=== PATIENT | male | born 1960 | race Caucasian/White ===

== ENCOUNTER → 2016-05-22 | Outpatient (REF) | payer MEDICAID ==
[~2016-05-22] MED LIST: ATEN25TA PO; ATOR1TAB21 PO; DOXA1TAB41 PO
[2016-05-22 14:35] LABS: ANION GAP 8 MEQ/L (8-16); BLOOD UREA NITROGEN 24 MG/DL (7-18); CALCIUM LEVEL 9.4 MG/DL (8.5-10.1); CARBON DIOXIDE LEVEL 27 MEQ/L (21-32); CHLORIDE LEVEL 111 MEQ/L (98-107); CREATININE FOR GFR 0.89 MG/DL (0.70-1.30); GLOMERULAR FILTRATION RATE > 60.0 (>56); GLUCOSE, FASTING 99 MG/DL (70-105); POTASSIUM SERUM 4.2 MEQ/L (3.5-5.1); SODIUM LEVEL 146 MEQ/L (136-145)
== END | disposition home or self-care (01) ==
LOC: M SFHCPLAZ 11:23
PROVIDERS: ATTEND Family Medicine
DX: R33.9 Retention of urine, unspecified (principal); N30.01 Acute cystitis with hematuria

== ENCOUNTER 2016-05-29 09:06 | Outpatient (CLI) | payer MEDICAID, OTHER ==
[~2016-05-29] VITALS: Ht 172.7 cm; Wt 93.2 kg
[~2016-05-29 09:06] MED LIST changes: -ASCO25TA PO; -FLOM5CAP PO; -LEUP375KIT IM; -MULT1TAB11 PO; -NEUR300C PO; -OXYC-517 PO; -ZOFR4TAB3 PO
[2016-05-29] MEDS ORDERED: ZOLEDRONIC ACID 4 MG in NS 100 ML IV ONE (10:30)
[2016-05-30] MEDS ORDERED: OXYC-517 PO (15:14)
[2016-05-30] MEDS ORDERED: NEUR300C PO (15:14)
[2016-05-30] MEDS ORDERED: ZOFR4TAB3 PO (15:15)
[2016-05-30] MEDS ORDERED: ASCO25TA PO (15:15)
[2016-05-30] MEDS ORDERED: FLOM5CAP PO (15:15)
[2016-05-30] MEDS ORDERED: LEUP375KIT IM (15:16)
[2016-05-30] MEDS ORDERED: MULT1TAB11 PO (15:16)
== END 2016-05-29 11:15 | disposition home or self-care (01) ==
LOC: M INFU 09:06
PROVIDERS: ATTEND Family Medicine
DX: C79.51 Secondary malignant neoplasm of bone (principal)
CPT/HCPCS: 96365; J3489

== ENCOUNTER → 2016-05-29 | Outpatient (REF) | payer OTHER, MEDICAID ==
[~2016-05-29] MED LIST changes: +ASCO25TA PO; +FLOM5CAP PO; +LEUP375KIT IM; +MULT1TAB11 PO; +NEUR300C PO; +OXYC-517 PO; +ZOFR4TAB3 PO
== END | disposition home or self-care (01) ==
LOC: M SFHCPLAZ 11:34
PROVIDERS: ATTEND Family Medicine
DX: R31.9 Hematuria, unspecified (principal)

== ENCOUNTER 2016-06-13 12:25 | Emergency (ER) | payer MEDICAID, OTHER, SELFPAY ==
[~2016-06-13 12:25] MED LIST changes: +ASCO25TA PO; +FLOM5CAP PO; +LEUP375KIT IM; +MULT1TAB11 PO; +NEUR300C PO; +OXYC-517 PO; +ZOFR4TAB3 PO
[2016-06-13 13:46] LABS: MICROSCOPIC INDICATED? MAN YES (NO)
[2016-06-13 13:47] LABS: BACTERIA, URINE SMALL AMOUNT; HYALINE CAST, URINE NONE SEEN /lpf (0-1); MICROSCOPIC EXAM PERFORMED; RBC, URINE TNTC /hpf (0-3); SQUAMOUS EPITHELIAL CELL URINE NONE SEEN /hpf (SMALL AMT)
[2016-06-13 13:56] LABS: ANION GAP 10 MEQ/L (8-16); BLOOD UREA NITROGEN 19 MG/DL (7-18); CARBON DIOXIDE LEVEL 22 MEQ/L (21-32); CHLORIDE LEVEL 105 MEQ/L (98-107); CREATININE FOR GFR 1.04 MG/DL (0.70-1.30); GLOMERULAR FILTRATION RATE > 60.0 (>56); GLUCOSE, FASTING 143 MG/DL (70-105); POTASSIUM SERUM 3.8 MEQ/L (3.5-5.1); SODIUM LEVEL 137 MEQ/L (136-145)
--- NOTE | 2016-06-13 15:43 | EDDOCDS ---
Physician Documentation [facility] Name: Louis Mccann Age: 55 yrs Sex: Male : 1960 Arrival Date: 06/13/2016 Time: 12:25 Bed 7 Private MD: Javier Devi M.D. Disposition: 06/13/16 15:14 Discharged to Home/Self Care. Impression: Hematuria. - Condition is Stable. - Discharge Instructions: Hematuria, Adult. - Medication Reconciliation, Local Pharmacy Hours form. - Follow up: Javier eDvi; When: Call to arrange an appointment; Reason: Continuance of care. - Problem is new. - Symptoms have improved. Historical: - Allergies: no known allergies; - Home Meds: 1. atenolol 25 mg Oral tab 1 tab once daily 2. atorvastatin 20 mg oral tab 1 tab once daily 3. aspirin 81 mg Oral tab 1 tab once daily 4. prednisone 5 mg Oral tab once daily 5. tamsulosin 0.4 mg oral cp24 1 cap once daily 6. Soma 350 mg Oral tab 1 tab 3 times per day 7. oxycodone 5 mg Oral cap prn 8. multivitamin Oral cap 1 tablet daily 9. Vitamin C 500 mg Oral tab daily - PMHx: enlarged prostate; Hypercholesterolemia; Hypertension; prostate cancer; bone cancer ( secondary); - PSHx: reconstructive surery on left hand /wrist; port placement; Tonsillectomy; - Social history: Smoking status: Patient states former smoker of tobacco. No barriers to communication noted, The patient speaks fluent Comoran, Speaks appropriately for age. - Family history: Not pertinent. - : The pt / caregiver states he / she is not on anticoagulants. Home medication list is obtained from the patient. - Exposure Risk Screening:: None identified. Vital Signs: 06/13 12:27 BP 101 / 65; Pulse 102; Resp 18; Temp 98.6(O); Pulse Ox 98% on R/A; Weight 94.35 kg / ct3 208.01 lbs (R); Height 5 ft. 8 in. (172.72 cm) (R); Pain 4/10; 15:40 BP 105 / 57; Pulse 70; Resp 16; Temp 98; Pulse Ox 95% on R/A; Pain 0/10; bcj 12:27 Body Mass Index 31.63 (94.35 kg, 172.72 cm) ct3 MDM: 13:12 IV Saline Lock ordered. fg 13:12 Basic Metabolic Profile Ordered. EDMS 13:12 Urine Culture Ordered. EDMS 13:47 URINALYSIS MANUAL Ordered. EDMS 15:09 [facility] Payment Agreement was scanned into [employer] and attached to record. jp5 15:09 Financial registration complete. jp5 Signatures: Dispatcher [employer] EDMS Ferny Piper, RN Joselyn Edmond RN Neaem Roman jp5 Josseline Smith MD MD fg The chart was reviewed and I authenticate all verbal orders and agree with the evaluation and treatment provided.Corrections: (The following items were deleted from the chart) 13:47 13:12 URINALYSIS+LAB ordered. EDMS EDMS 15:06 15:01 Manzano ordered. fg dsf Attachments: 15:09 [facility] Payment Agreement jp5 SHAWND
--- NOTE | 2016-06-13 15:43 | EDDOCDS ---
Nurse's Notes [facility] Name: Louis Mccann Age: 55 yrs Sex: Male : 1960 Arrival Date: 06/13/2016 Time: 12:25 Bed 7 Private MD: Javier Devi M.D. Diagnosis: Hematuria Presentation: 06/13 12:30 Presenting complaint: Patient states: pissed pure blood this am. passing blood clots srm when urinating. hx of prostates cancer with mets to bone. Presenting complaint: Patient states: last chemo treatment 2 weeks ago. Adult Sepsis Screening: The patient does not have new or worsening altered mentation. Patient's respiratory rate is less than 22. Systolic blood pressure is greater than 100. Patient has a qSOFA score of 0- Negative Sepsis Screen. Suicide/Homicide risk assessment- the patient denies having any suicidal and/or homicidal ideations and does not present with any other emotional, behavioral or mental health complaints. Status: Patient is not a counseling services director or dependent. Transition of care: patient was not received from another setting of care. 12:30 Acuity: MARKUS Level 3 [facility] 12:30 Method Of Arrival: Walkin/Carried/Asstd srm Triage Assessment: 12:36 General: Appears in no apparent distress, Behavior is appropriate for age, cooperative. srm Pain: Location: back pain Pain currently is 4.5 out of 10 on a pain scale. HIV screening NA for this visit Offered previously. Historical: - Allergies: no known allergies; - Home Meds: 1. atenolol 25 mg Oral tab 1 tab once daily 2. atorvastatin 20 mg oral tab 1 tab once daily 3. aspirin 81 mg Oral tab 1 tab once daily 4. prednisone 5 mg Oral tab once daily 5. tamsulosin 0.4 mg oral cp24 1 cap once daily 6. Soma 350 mg Oral tab 1 tab 3 times per day 7. oxycodone 5 mg Oral cap prn 8. multivitamin Oral cap 1 tablet daily 9. Vitamin C 500 mg Oral tab daily - PMHx: enlarged prostate; Hypercholesterolemia; Hypertension; prostate cancer; bone cancer ( secondary); - PSHx: reconstructive surery on left hand /wrist; port placement; Tonsillectomy; - Social history: Smoking status: Patient states former smoker of tobacco. No barriers to communication noted, The patient speaks fluent Persian, Speaks appropriately for age. - Family history: Not pertinent. - : The pt / caregiver states he / she is not on anticoagulants. Home medication list is obtained from the patient. - Exposure Risk Screening:: None identified. Screenin:28 Screening information is obtained from the patient. Fall risk: No risks identified. dsf Assistance ADL's: requires no assistance with activities of daily living. Abuse/DV Screen: The patient / caregiver reports he/she is: not in a situation that causes fear, pain or injury. Nutritional screening: No deficits noted. home support is adequate. 15:40 Advance Directives: Currently, there is no health care proxy. bcj Assessment: 13:27 Adult Sepsis Screening: The patient does not have new or worsening altered mentation. dsf Patient's respiratory rate is less than 22. Systolic blood pressure is greater than 100. Patient has a qSOFA score of 0- Negative Sepsis Screen. General: Appears in no apparent distress, Behavior is appropriate for age, cooperative. Pain: Location: neck Pain currently is 4 out of 10 on a pain scale. Neurological: Level of Consciousness is awake, alert, Oriented to person, place, time. Cardiovascular: Capillary refill < 3 seconds Heart tones S1 S2 present. Respiratory: Airway is patent Respiratory effort is even, unlabored, Respiratory pattern is regular, symmetrical, Breath sounds are clear bilaterally. GI: Abdomen is non- distended Bowel sounds present X 4 quads. Abd is soft and non tender X 4 quads. : Urine is nedra blood. Derm: Skin is pink, warm & dry. 14:27 General: Appears in no apparent distress, comfortable, Behavior is appropriate for age, dsf cooperative. Neurological: Level of Consciousness is awake, alert, Oriented to person, place, time. Cardiovascular: Capillary refill < 3 seconds. Respiratory: Airway is patent Respiratory effort is even, unlabored, Respiratory pattern is regular, symmetrical. Derm: Skin is pink, warm & dry. 15:06 General: Dr. Smith talking to patient. pt refusing [place] catheter at this time . dsf 15:40 General: Appears in no apparent distress, comfortable, Behavior is cooperative. Derm: bcj Skin is pink, warm & dry. Vital Signs: 12:27 BP 101 / 65; Pulse 102; Resp 18; Temp 98.6(O); Pulse Ox 98% on R/A; Weight 94.35 kg ct3 (R); Height 5 ft. 8 in. (172.72 cm) (R); Pain 4/10; 15:40 BP 105 / 57; Pulse 70; Resp 16; Temp 98; Pulse Ox 95% on R/A; Pain 0/10; bcj 12:27 Body Mass Index 31.63 (94.35 kg, 172.72 cm) ct3 Vitals: 12:27 Log In Time: June 13, 2016 at 12:25. RN notified that patient meets Red Flag ct3 criteria. ED Course: 12:27 Patient visited by Ana Hale PCA. ct3 12:27 Javier Devi is Private Physician. ct3 12:27 Patient moved to Waiting ct3 12:29 Patient moved to Pre RCE ct3 12:32 Triage Initiated srm 12:38 Patient moved to 7 srm 13:11 Josseline Smith MD is Attending Physician. fg 13:12 Patient visited by Josseline Smith MD. fg 13:26 Basic Metabolic Profile Sent. dsf 13:26 Urine Culture Sent. dsf 13:28 Patient visited by Claudette Leigh RN. dsf 13:28 Inserted saline lock: 20 gauge in right antecubital area The patient tolerated the dsf procedure well. 14:31 Patient visited by Claudette Leigh RN. dsf 15:09 [facility] Payment Agreement was scanned into [email or web address] and attached to record. jp5 15:14 Javier Devi is Referral Physician. fg 15:40 No apparent distress. Resting quietly. Awaiting disposition. bcj 15:40 The patient / caregiver is instructed regarding the plan of care and ED course. bcj 15:40 Discontinued lock intact. No procedures done that require assistance. bcj 15:42 Patient visited by Ferny Piper RN. bcj Order Results: Lab Order: Basic Metabolic Profile; SPEC'M 06/13/16 13:24 Test: GLUCOSE, FASTING; Value: 143; Range: 70-105; Abnormal: Above high normal; Units: MG/DL; Status: F Test: BLOOD UREA NITROGEN; Value: 19; Range: 7-18; Abnormal: Above high normal; Units: MG/DL; Status: F Test: CREATININE FOR GFR; Value: 1.04; Range: 0.70-1.30; Units: MG/DL; Status: F Test: GLOMERULAR FILTRATION RATE; Value: > 60.0; Range: >56; Status: F Test: SODIUM LEVEL; Value: 137; Range: 136-145; Units: MEQ/L; Status: F Test: POTASSIUM SERUM; Value: 3.8; Range: 3.5-5.1; Units: MEQ/L; Status: F Test: CHLORIDE LEVEL; Value: 105; Range: 98-107; Units: MEQ/L; Status: F Test: CARBON DIOXIDE LEVEL; Value: 22; Range: 21-32; Units: MEQ/L; Status: F Test: ANION GAP; Value: 10; Range: 8-16; Units: MEQ/L; Status: F Test: CALCIUM LEVEL; Value: 8.0; Range: 8.5-10.1; Abnormal: Below low normal; Units: MG/DL; Status: F Test Note: ; Units are mL/min/1.73 m2 Chronic Kidney Disease Staging per NKF: Stage I & II GFR >=60 Normal to Mildly Decreased Stage III GFR 30-59 Moderately Decreased Stage IV GFR 15-29 Severely Decreased Stage V GFR <15 Very Little GFR Left ESRD GFR <15 on ADHESIVE SPRAYER Lab Order: URINALYSIS MANUAL; SPEC'M 06/13/16 13:24 Test: APPEARANCE, URINE MANUAL; Value: TURBID; Range: CLEAR; Abnormal: Above high normal; Status: F Test: COLOR, URINE MANUAL; Value: RED; Range: YELLOW; Abnormal: Above high normal; Status: F Test: PH,URINE MAN; Value: 6.0; Range: 5.0 - 9.0; Units: UNITS; Status: F Test: SPECIFIC GRAVITY,URINE MANUAL; Value: 1.015; Range: 1.002-1.035; Status: F Test: PROTEIN, URINE MANUAL; Value: 3+; Range: NEGATIVE; Abnormal: Above high normal; Units: mg/dL; Status: F Test: GLUCOSE, URINE (UA) MANUAL; Value: NEGATIVE; Range: NEGATIVE; Units: mg/dL; Status: F Test: KETONE, URINE MANUAL; Value: NEGATIVE; Range: NEGATIVE; Units: mg/dL; Status: F Test: UROBILINOGEN, URINE MANUAL; Value: NORMAL; Range: NORMAL; Units: mg/dl; Status: F Test: BILIRUBIN, URINE MANUAL; Value: NEGATIVE; Range: NEGATIVE; Status: F Test: NITRITE, URINE MANUAL; Value: NEGATIVE; Range: NEGATIVE; Status: F Test: LEUKOCYTE ESTERASE, URINE MAN; Value: TRACE; Range: NEGATIVE; Abnormal: Above high normal; Status: F Test: BLOOD URINE MANUAL; Value: POSITIVE; Range: NEGATIVE; Abnormal: Above high normal; Status: F Lab Order: MICROSCOPIC, URINE; SPEC'M 06/13/16 13:24 Test: WBC, URINE; Value: 10-15; Range: 0-3; Abnormal: Above high normal; Units: /hpf; Status: F Test: RBC, URINE; Value: TNTC; Range: 0-3; Abnormal: Above high normal; Units: /hpf; Status: F Test: SQUAMOUS EPITHELIAL CELL URINE; Value: NONE SEEN; Range: SMALL AMT; Units: /hpf; Status: F Test: BACTERIA, URINE; Value: SMALL AMOUNT; Range: NONE; Abnormal: Above high normal; Status: F Test: HYALINE CAST, URINE; Value: NONE SEEN; Range: 0-1; Units: /lpf; Status: F Test: MICROSCOPIC EXAM; Value: PERFORMED; Status: F Outcome: 15:14 Discharge ordered by Provider. fg 15:40 Discharge Assessment: patient administered narcotics - no. The following High Risk [facility] Discharge criteria are identified: None. Discharged to home ambulatory, with family. Condition: stable. Discharge instructions given to patient, Instructed on discharge instructions, follow up and referral plans. diet. No special radiology studies were completed. Property :Personal belongings accompany Pt. 15:42 Patient left the ED. [facility] Signatures: Ferny Piper RN RN bcj Michelson, Staci, RN RN [facility] Ana Hale, ZULLY HAND CLERICAL VERIFIER ct3 Claudette Leigh RN RN [facility] Naeem Boone jp5 Josseline Smith MD MD fg Corrections: (The following items were deleted from the chart) 13:47 13:26 URINALYSIS+LAB sent. [facility] EDMS MTDD
--- NOTE | 2016-06-15 16:44 | EDDOCDS ---
Physician Documentation [facility] Name: Louis Mccann Age: 55 yrs Sex: Male : 1960 Arrival Date: 06/13/2016 Time: 12:25 Bed 7 Private MD: Javier Devi M.D. Disposition: 06/13/16 15:14 Discharged to Home/Self Care. Impression: Hematuria. - Condition is Stable. - Discharge Instructions: Hematuria, Adult. - Medication Reconciliation, Local Pharmacy Hours form. - Follow up: Javier Devi; When: Call to arrange an appointment; Reason: Continuance of care. - Problem is new. - Symptoms have improved. Historical: - Allergies: no known allergies; - Home Meds: 1. atenolol 25 mg Oral tab 1 tab once daily 2. atorvastatin 20 mg oral tab 1 tab once daily 3. aspirin 81 mg Oral tab 1 tab once daily 4. prednisone 5 mg Oral tab once daily 5. tamsulosin 0.4 mg oral cp24 1 cap once daily 6. Soma 350 mg Oral tab 1 tab 3 times per day 7. oxycodone 5 mg Oral cap prn 8. multivitamin Oral cap 1 tablet daily 9. Vitamin C 500 mg Oral tab daily - PMHx: enlarged prostate; Hypercholesterolemia; Hypertension; prostate cancer; bone cancer ( secondary); - PSHx: reconstructive surery on left hand /wrist; port placement; Tonsillectomy; - Social history: Smoking status: Patient states former smoker of tobacco. No barriers to communication noted, The patient speaks fluent Faroese, Speaks appropriately for age. - Family history: Not pertinent. - : The pt / caregiver states he / she is not on anticoagulants. Home medication list is obtained from the patient. - Exposure Risk Screening:: None identified. Vital Signs: 06/13 12:27 BP 101 / 65; Pulse 102; Resp 18; Temp 98.6(O); Pulse Ox 98% on R/A; Weight 94.35 kg / ct3 208.01 lbs (R); Height 5 ft. 8 in. (172.72 cm) (R); Pain 4/10; 15:40 BP 105 / 57; Pulse 70; Resp 16; Temp 98; Pulse Ox 95% on R/A; Pain 0/10; bcj 12:27 Body Mass Index 31.63 (94.35 kg, 172.72 cm) ct3 MDM: 13:12 IV Saline Lock ordered. fg 13:12 Basic Metabolic Profile Ordered. EDMS 13:12 Urine Culture Ordered. EDMS 13:47 URINALYSIS MANUAL Ordered. EDMS 15:09 [facility] Payment Agreement was scanned into [employer] and attached to record. 09 11: Financial registration complete. [facility] 06/14 12:38 T-Sheet-- Draft Copy was scanned into [employer] and attached to record. klr Signatures: Dispatcher [employer] EDMS Ferny Piper, RN Joselyn Edmond RN RN srm Price, Jennalee 5 Josseline Smith MD MD fg Redder, Kathie klr The chart was reviewed and I authenticate all verbal orders and agree with the evaluation and treatment provided.Corrections: (The following items were deleted from the chart) 06/13 13:47 13:12 URINALYSIS+LAB ordered. EDMS EDMS 15:06 15:01 Manzano ordered. fg dsf Attachments: 15: [facility] [place] [facility] Payment Agreement [facility] 06/14 12:38 T-Sheet-- Draft Copy klr Chart Complete MTDD
--- NOTE | 2016-06-15 16:44 | EDDOCDS ---
Nurse's Notes [facility] Name: Louis Mccann Age: 55 yrs Sex: Male : 1960 Arrival Date: 06/13/2016 Time: 12:25 Bed 7 Private MD: Javier Devi M.D. Diagnosis: Hematuria Presentation: 06/13 12:30 Presenting complaint: Patient states: pissed pure blood this am. passing blood clots srm when urinating. hx of prostates cancer with mets to bone. Presenting complaint: Patient states: last chemo treatment 2 weeks ago. Adult Sepsis Screening: The patient does not have new or worsening altered mentation. Patient's respiratory rate is less than 22. Systolic blood pressure is greater than 100. Patient has a qSOFA score of 0- Negative Sepsis Screen. Suicide/Homicide risk assessment- the patient denies having any suicidal and/or homicidal ideations and does not present with any other emotional, behavioral or mental health complaints. 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 Transition of care: patient was not received from another setting of care. 12:30 Acuity: MARKUS Level 3 [facility] 12:30 Method Of Arrival: Walkin/Carried/Asstd srm Triage Assessment: 12:36 General: Appears in no apparent distress, Behavior is appropriate for age, cooperative. srm Pain: Location: back pain Pain currently is 4.5 out of 10 on a pain scale. HIV screening NA for this visit Offered previously. Historical: - Allergies: no known allergies; - Home Meds: 1. atenolol 25 mg Oral tab 1 tab once daily 2. atorvastatin 20 mg oral tab 1 tab once daily 3. aspirin 81 mg Oral tab 1 tab once daily 4. prednisone 5 mg Oral tab once daily 5. tamsulosin 0.4 mg oral cp24 1 cap once daily 6. Soma 350 mg Oral tab 1 tab 3 times per day 7. oxycodone 5 mg Oral cap prn 8. multivitamin Oral cap 1 tablet daily 9. Vitamin C 500 mg Oral tab daily - PMHx: enlarged prostate; Hypercholesterolemia; Hypertension; prostate cancer; bone cancer ( secondary); - PSHx: reconstructive surery on left hand /wrist; port placement; Tonsillectomy; - Social history: Smoking status: Patient states former smoker of tobacco. No barriers to communication noted, The patient speaks fluent Kinyarwanda, Speaks appropriately for age. - Family history: Not pertinent. - : The pt / caregiver states he / she is not on anticoagulants. Home medication list is obtained from the patient. - Exposure Risk Screening:: None identified. Screenin:28 Screening information is obtained from the patient. Fall risk: No risks identified. dsf Assistance ADL's: requires no assistance with activities of daily living. Abuse/DV Screen: The patient / caregiver reports he/she is: not in a situation that causes fear, pain or injury. Nutritional screening: No deficits noted. home support is adequate. 15:40 Advance Directives: Currently, there is no health care proxy. bcj Assessment: 13:27 Adult Sepsis Screening: The patient does not have new or worsening altered mentation. dsf Patient's respiratory rate is less than 22. Systolic blood pressure is greater than 100. Patient has a qSOFA score of 0- Negative Sepsis Screen. General: Appears in no apparent distress, Behavior is appropriate for age, cooperative. Pain: Location: neck Pain currently is 4 out of 10 on a pain scale. Neurological: Level of Consciousness is awake, alert, Oriented to person, place, time. Cardiovascular: Capillary refill < 3 seconds Heart tones S1 S2 present. Respiratory: Airway is patent Respiratory effort is even, unlabored, Respiratory pattern is regular, symmetrical, Breath sounds are clear bilaterally. GI: Abdomen is non- distended Bowel sounds present X 4 quads. Abd is soft and non tender X 4 quads. : Urine is nedra blood. Derm: Skin is pink, warm & dry. 14:27 General: Appears in no apparent distress, comfortable, Behavior is appropriate for age, dsf cooperative. Neurological: Level of Consciousness is awake, alert, Oriented to person, place, time. Cardiovascular: Capillary refill < 3 seconds. Respiratory: Airway is patent Respiratory effort is even, unlabored, Respiratory pattern is regular, symmetrical. Derm: Skin is pink, warm & dry. 15:06 General: Dr. Smith talking to patient. pt refusing montana catheter at this time . dsf 15:40 General: Appears in no apparent distress, comfortable, Behavior is cooperative. Derm: bcj Skin is pink, warm & dry. Vital Signs: 12:27 BP 101 / 65; Pulse 102; Resp 18; Temp 98.6(O); Pulse Ox 98% on R/A; Weight 94.35 kg ct3 (R); Height 5 ft. 8 in. (172.72 cm) (R); Pain 4/10; 15:40 BP 105 / 57; Pulse 70; Resp 16; Temp 98; Pulse Ox 95% on R/A; Pain 0/10; bcj 12:27 Body Mass Index 31.63 (94.35 kg, 172.72 cm) ct3 Vitals: 12:27 Log In Time: June 13, 2016 at 12:25. RN notified that patient meets Red Flag ct3 criteria. ED Course: 12:27 Patient visited by Ana Hale PCA. ct3 12:27 Javier Devi is Private Physician. ct3 12:27 Patient moved to Waiting ct3 12:29 Patient moved to Pre RCE ct3 12:32 Triage Initiated srm 12:38 Patient moved to 7 srm 13:11 Josseline Smith MD is Attending Physician. fg 13:12 Patient visited by Josseline Smith MD. fg 13:26 Basic Metabolic Profile Sent. dsf 13:26 Urine Culture Sent. dsf 13:28 Patient visited by Claudette Leigh RN. dsf 13:28 Inserted saline lock: 20 gauge in right antecubital area The patient tolerated the dsf procedure well. 14:31 Patient visited by Claudette Leigh RN. dsf 15:09 [facility] Payment Agreement was scanned into [employer] and attached to record. jp5 15:14 Javier Devi is Referral Physician. fg 15:40 No apparent distress. Resting quietly. Awaiting disposition. bcj 15:40 The patient / caregiver is instructed regarding the plan of care and ED course. bcj 15:40 Discontinued lock intact. No procedures done that require assistance. bcj 15:42 Patient visited by Ferny Piper RN. [facility] 06/14 12:38 T-Sheet-- Draft Copy was scanned into [employer] and attached to record. klr Order Results: Lab Order: Urine Culture; SPEC'M 06/13/16 13:24 Test: URINE CULTURE; Value: <EXTERNAL COMMENT eCWMed> FULL REPORT IN LAB NOTES (eCW and Medent).; Status: F Test: URINE CULTURE; Value: ORGANISM 1: STAPHYLOCOCCUS AUREUS; Status: F Test: URINE CULTURE; Value: STAPHYLOCOCCUS AUREUS; Status: F Test: URINE CULTURE; Value: COLONY COUNT CFU/ml >100,000; Status: F Test: URINE CULTURE; Value: GRAM POS SENSI - VITEK 67; Status: F Test: URINE CULTURE; Value: Method: VIT2; Status: F Test: URINE CULTURE; Value: TETRACYCLINE <=1 S; Status: F Test: URINE CULTURE; Value: PENICILLIN G 0.06 R; Status: F Test: URINE CULTURE; Value: TRIMETHOPRIM/SULFAMETHOXAZOLE <=10 S; Status: F Test: URINE CULTURE; Value: ERYTHROMYCIN <=0.25 S; Status: F Test: URINE CULTURE; Value: GENTAMICIN <=0.5 S; Status: F Test: URINE CULTURE; Value: CLINDAMYCIN <=0.25 S; Status: F Test: URINE CULTURE; Value: NITROFURANTOIN <=16 S; Status: F Test: URINE CULTURE; Value: OXACILLIN <=0.25 S; Status: F Test: URINE CULTURE; Value: VANCOMYCIN <=0.5 S; Status: F Test: URINE CULTURE; Value: LINEZOLID (ZYVOX) 2 S; Status: F Lab Order: Basic Metabolic Profile; SPEC'M 06/13/16 13:24 Test: GLUCOSE, FASTING; Value: 143; Range: 70-105; Abnormal: Above high normal; Units: MG/DL; Status: F Test: BLOOD UREA NITROGEN; Value: 19; Range: 7-18; Abnormal: Above high normal; Units: MG/DL; Status: F Test: CREATININE FOR GFR; Value: 1.04; Range: 0.70-1.30; Units: MG/DL; Status: F Test: GLOMERULAR FILTRATION RATE; Value: > 60.0; Range: >56; Status: F Test: SODIUM LEVEL; Value: 137; Range: 136-145; Units: MEQ/L; Status: F Test: POTASSIUM SERUM; Value: 3.8; Range: 3.5-5.1; Units: MEQ/L; Status: F Test: CHLORIDE LEVEL; Value: 105; Range: 98-107; Units: MEQ/L; Status: F Test: CARBON DIOXIDE LEVEL; Value: 22; Range: 21-32; Units: MEQ/L; Status: F Test: ANION GAP; Value: 10; Range: 8-16; Units: MEQ/L; Status: F Test: CALCIUM LEVEL; Value: 8.0; Range: 8.5-10.1; Abnormal: Below low normal; Units: MG/DL; Status: F Test Note: ; Units are mL/min/1.73 m2 Chronic Kidney Disease Staging per NKF: Stage I & II GFR >=60 Normal to Mildly Decreased Stage III GFR 30-59 Moderately Decreased Stage IV GFR 15-29 Severely Decreased Stage V GFR <15 Very Little GFR Left ESRD GFR <15 on EQUITY STRUCTURER Lab Order: URINALYSIS MANUAL; SPEC'M 06/13/16 13:24 Test: APPEARANCE, URINE MANUAL; Value: TURBID; Range: CLEAR; Abnormal: Above high normal; Status: F Test: COLOR, URINE MANUAL; Value: RED; Range: YELLOW; Abnormal: Above high normal; Status: F Test: PH,URINE MAN; Value: 6.0; Range: 5.0 - 9.0; Units: UNITS; Status: F Test: SPECIFIC GRAVITY,URINE MANUAL; Value: 1.015; Range: 1.002-1.035; Status: F Test: PROTEIN, URINE MANUAL; Value: 3+; Range: NEGATIVE; Abnormal: Above high normal; Units: mg/dL; Status: F Test: GLUCOSE, URINE (UA) MANUAL; Value: NEGATIVE; Range: NEGATIVE; Units: mg/dL; Status: F Test: KETONE, URINE MANUAL; Value: NEGATIVE; Range: NEGATIVE; Units: mg/dL; Status: F Test: UROBILINOGEN, URINE MANUAL; Value: NORMAL; Range: NORMAL; Units: mg/dl; Status: F Test: BILIRUBIN, URINE MANUAL; Value: NEGATIVE; Range: NEGATIVE; Status: F Test: NITRITE, URINE MANUAL; Value: NEGATIVE; Range: NEGATIVE; Status: F Test: LEUKOCYTE ESTERASE, URINE MAN; Value: TRACE; Range: NEGATIVE; Abnormal: Above high normal; Status: F Test: BLOOD URINE MANUAL; Value: POSITIVE; Range: NEGATIVE; Abnormal: Above high normal; Status: F Lab Order: MICROSCOPIC, URINE; SPEC'M 06/13/16 13:24 Test: WBC, URINE; Value: 10-15; Range: 0-3; Abnormal: Above high normal; Units: /hpf; Status: F Test: RBC, URINE; Value: TNTC; Range: 0-3; Abnormal: Above high normal; Units: /hpf; Status: F Test: SQUAMOUS EPITHELIAL CELL URINE; Value: NONE SEEN; Range: SMALL AMT; Units: /hpf; Status: F Test: BACTERIA, URINE; Value: SMALL AMOUNT; Range: NONE; Abnormal: Above high normal; Status: F Test: HYALINE CAST, URINE; Value: NONE SEEN; Range: 0-1; Units: /lpf; Status: F Test: MICROSCOPIC EXAM; Value: PERFORMED; Status: F Outcome: 06/13 15:14 Discharge ordered by Provider. 15:40 Discharge Assessment: patient administered narcotics - no. The following High Risk [facility] Discharge criteria are identified: None. Discharged to home ambulatory, with family. Condition: stable. Discharge instructions given to patient, Instructed on discharge instructions, follow up and referral plans. diet. No special radiology studies were completed. Property :Personal belongings accompany Pt. 15:42 Patient left the ED. [facility] Signatures: Ferny Piper RN RN Joselyn Matos RN RN srm Hale, Ana, COUNSELING SPECIALIST COUNSELING SPECIALIST ct3 Claudette Leigh RN RN [facility] Naeem Boone 5 Josseline Smith MD MD fg Redder, Kathie klr Corrections: (The following items were deleted from the chart) 13:47 13:26 URINALYSIS+LAB sent. [facility] EDMS Chart Complete MTDRosa Elena
--- NOTE | 2016-06-15 16:44 | EDDOCDS ---
Physician Documentation [facility] Name: Louis Mccann Age: 55 yrs Sex: Male : 1960 Arrival Date: 06/13/2016 Time: 12:25 Bed 7 Private MD: Javier Devi M.D. Disposition: 06/13/16 15:14 Discharged to Home/Self Care. Impression: Hematuria. - Condition is Stable. - Discharge Instructions: Hematuria, Adult. - Medication Reconciliation, Local Pharmacy Hours form. - Follow up: Javier Devi; When: Call to arrange an appointment; Reason: Continuance of care. - Problem is new. - Symptoms have improved. Historical: - Allergies: no known allergies; - Home Meds: 1. atenolol 25 mg Oral tab 1 tab once daily 2. atorvastatin 20 mg oral tab 1 tab once daily 3. aspirin 81 mg Oral tab 1 tab once daily 4. prednisone 5 mg Oral tab once daily 5. tamsulosin 0.4 mg oral cp24 1 cap once daily 6. Soma 350 mg Oral tab 1 tab 3 times per day 7. oxycodone 5 mg Oral cap prn 8. multivitamin Oral cap 1 tablet daily 9. Vitamin C 500 mg Oral tab daily - PMHx: enlarged prostate; Hypercholesterolemia; Hypertension; prostate cancer; bone cancer ( secondary); - PSHx: reconstructive surery on left hand /wrist; port placement; Tonsillectomy; - Social history: Smoking status: Patient states former smoker of tobacco. No barriers to communication noted, The patient speaks fluent Pakistani, Speaks appropriately for age. - Family history: Not pertinent. - : The pt / caregiver states he / she is not on anticoagulants. Home medication list is obtained from the patient. - Exposure Risk Screening:: None identified. Vital Signs: 06/13 12:27 BP 101 / 65; Pulse 102; Resp 18; Temp 98.6(O); Pulse Ox 98% on R/A; Weight 94.35 kg / ct3 208.01 lbs (R); Height 5 ft. 8 in. (172.72 cm) (R); Pain 4/10; 15:40 BP 105 / 57; Pulse 70; Resp 16; Temp 98; Pulse Ox 95% on R/A; Pain 0/10; bcj 12:27 Body Mass Index 31.63 (94.35 kg, 172.72 cm) ct3 MDM: 13:12 IV Saline Lock ordered. fg 13:12 Basic Metabolic Profile Ordered. EDMS 13:12 Urine Culture Ordered. EDMS 13:47 URINALYSIS MANUAL Ordered. EDMS 15:09 [facility] Payment Agreement was scanned into [employer] and attached to record. 09 11: Financial registration complete. [facility] 06/14 12:38 T-Sheet-- Draft Copy was scanned into [employer] and attached to record. klr Signatures: Dispatcher [employer] EDMS Ferny Piper, RN Joselyn Edmond RN RN srm Price, Jennalee 5 Josseline Smith MD MD fg Redder, Kathie klr The chart was reviewed and I authenticate all verbal orders and agree with the evaluation and treatment provided.Corrections: (The following items were deleted from the chart) 06/13 13:47 13:12 URINALYSIS+LAB ordered. EDMS EDMS 15:06 15:01 Manzano ordered. fg dsf Attachments: 15: [facility] Payment Agreement [facility] 06/14 12:38 T-Sheet-- Draft Copy klr Chart Complete MTDD
--- NOTE | 2016-06-16 17:26 | EDDOCDS ---
Physician Documentation [facility] Name: Louis Mccann Age: 55 yrs Sex: Male : 1960 Arrival Date: 06/13/2016 Time: 12:25 Bed 7 Private MD: Javier Devi M.D. Disposition: 06/13/16 15:14 Discharged to Home/Self Care. Impression: Hematuria. - Condition is Stable. - Discharge Instructions: Hematuria, Adult. - Medication Reconciliation, Local Pharmacy Hours form. - Follow up: Javier Devi; When: Call to arrange an appointment; Reason: Continuance of care. - Problem is new. - Symptoms have improved. Historical: - Allergies: no known allergies; - Home Meds: 1. atenolol 25 mg Oral tab 1 tab once daily 2. atorvastatin 20 mg oral tab 1 tab once daily 3. aspirin 81 mg Oral tab 1 tab once daily 4. prednisone 5 mg Oral tab once daily 5. tamsulosin 0.4 mg oral cp24 1 cap once daily 6. Soma 350 mg Oral tab 1 tab 3 times per day 7. oxycodone 5 mg Oral cap prn 8. multivitamin Oral cap 1 tablet daily 9. Vitamin C 500 mg Oral tab daily - PMHx: enlarged prostate; Hypercholesterolemia; Hypertension; prostate cancer; bone cancer ( secondary); - PSHx: reconstructive surery on left hand /wrist; port placement; Tonsillectomy; - Social history: Smoking status: Patient states former smoker of tobacco. No barriers to communication noted, The patient speaks fluent American, Speaks appropriately for age. - Family history: Not pertinent. - : The pt / caregiver states he / she is not on anticoagulants. Home medication list is obtained from the patient. - Exposure Risk Screening:: None identified. Vital Signs: 06/13 12:27 BP 101 / 65; Pulse 102; Resp 18; Temp 98.6(O); Pulse Ox 98% on R/A; Weight 94.35 kg / ct3 208.01 lbs (R); Height 5 ft. 8 in. (172.72 cm) (R); Pain 4/10; 15:40 BP 105 / 57; Pulse 70; Resp 16; Temp 98; Pulse Ox 95% on R/A; Pain 0/10; bcj 12:27 Body Mass Index 31.63 (94.35 kg, 172.72 cm) ct3 MDM: 13:12 IV Saline Lock ordered. fg 13:12 Basic Metabolic Profile Ordered. EDMS 13:12 Urine Culture Ordered. EDMS 13:47 URINALYSIS MANUAL Ordered. EDMS 15:09 [facility] Payment Agreement was scanned into [employer] and attached to record. 09 11: Financial registration complete. [facility] 06/14 12:38 T-Sheet-- Draft Copy was scanned into [employer] and attached to record. klr Signatures: Dispatcher [employer] EDMS Ferny Piper, RN Joselyn Edmond RN RN srm Price, Jennalee 5 Josseline Smith MD MD fg Redder, Kathie klr The chart was reviewed and I authenticate all verbal orders and agree with the evaluation and treatment provided.Corrections: (The following items were deleted from the chart) 06/13 13:47 13:12 URINALYSIS+LAB ordered. EDMS EDMS 15:06 15:01 Manzano ordered. fg dsf Attachments: 15: [facility] Payment Agreement [facility] 06/14 12:38 T-Sheet-- Draft Copy klr Chart Complete MTDD
--- NOTE | 2016-06-16 17:26 | EDDOCDS ---
Physician Documentation [facility] Name: Louis Mccann Age: 55 yrs Sex: Male : 1960 Arrival Date: 06/13/2016 Time: 12:25 Bed 7 Private MD: Javier eDvi M.D. Disposition: 06/13/16 15:14 Discharged to Home/Self Care. Impression: Hematuria. - Condition is Stable. - Discharge Instructions: Hematuria, Adult. - Medication Reconciliation, Local Pharmacy Hours form. - Follow up: Javier Devi; When: Call to arrange an appointment; Reason: Continuance of care. - Problem is new. - Symptoms have improved. Historical: - Allergies: no known allergies; - Home Meds: 1. atenolol 25 mg Oral tab 1 tab once daily 2. atorvastatin 20 mg oral tab 1 tab once daily 3. aspirin 81 mg Oral tab 1 tab once daily 4. prednisone 5 mg Oral tab once daily 5. tamsulosin 0.4 mg oral cp24 1 cap once daily 6. Soma 350 mg Oral tab 1 tab 3 times per day 7. oxycodone 5 mg Oral cap prn 8. multivitamin Oral cap 1 tablet daily 9. Vitamin C 500 mg Oral tab daily - PMHx: enlarged prostate; Hypercholesterolemia; Hypertension; prostate cancer; bone cancer ( secondary); - PSHx: reconstructive surery on left hand /wrist; port placement; Tonsillectomy; - Social history: Smoking status: Patient states former smoker of tobacco. No barriers to communication noted, The patient speaks fluent Thai, Speaks appropriately for age. - Family history: Not pertinent. - : The pt / caregiver states he / she is not on anticoagulants. Home medication list is obtained from the patient. - Exposure Risk Screening:: None identified. Vital Signs: 06/13 12:27 BP 101 / 65; Pulse 102; Resp 18; Temp 98.6(O); Pulse Ox 98% on R/A; Weight 94.35 kg / ct3 208.01 lbs (R); Height 5 ft. 8 in. (172.72 cm) (R); Pain 4/10; 15:40 BP 105 / 57; Pulse 70; Resp 16; Temp 98; Pulse Ox 95% on R/A; Pain 0/10; bcj 12:27 Body Mass Index 31.63 (94.35 kg, 172.72 cm) ct3 MDM: 13:12 IV Saline Lock ordered. fg 13:12 Basic Metabolic Profile Ordered. EDMS 13:12 Urine Culture Ordered. EDMS 13:47 URINALYSIS MANUAL Ordered. EDMS 15:09 [facility] Payment Agreement was scanned into [employer] and attached to record. 09 11: Financial registration complete. [facility] 06/14 12:38 T-Sheet-- Draft Copy was scanned into [employer] and attached to record. klr Signatures: Dispatcher [employer] EDMS Ferny Piper, RN Joselyn Edmond RN RN srm Price, Jennalee 5 Josseline Smith MD MD fg Redder, Kathie klr The chart was reviewed and I authenticate all verbal orders and agree with the evaluation and treatment provided.Corrections: (The following items were deleted from the chart) 06/13 13:47 13:12 URINALYSIS+LAB ordered. EDMS EDMS 15:06 15:01 Manzano ordered. fg dsf Attachments: 15: [facility] Payment Agreement [facility] 06/14 12:38 T-Sheet-- Draft Copy klr Chart Complete MTDD
--- NOTE | 2016-06-16 17:26 | EDDOCDS ---
Nurse's Notes [facility] Name: Louis Mccann Age: 55 yrs Sex: Male : 1960 Arrival Date: 06/13/2016 Time: 12:25 Bed 7 Private MD: Javier Devi M.D. Diagnosis: Hematuria Presentation: 06/13 12:30 Presenting complaint: Patient states: pissed pure blood this am. passing blood clots srm when urinating. hx of prostates cancer with mets to bone. Presenting complaint: Patient states: last chemo treatment 2 weeks ago. Adult Sepsis Screening: The patient does not have new or worsening altered mentation. Patient's respiratory rate is less than 22. Systolic blood pressure is greater than 100. Patient has a qSOFA score of 0- Negative Sepsis Screen. Suicide/Homicide risk assessment- the patient denies having any suicidal and/or homicidal ideations and does not present with any other emotional, behavioral or mental health complaints. 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 Transition of care: patient was not received from another setting of care. 12:30 Acuity: [facility] 12:30 Method Of Arrival: Walkin/Carried/Asstd srm Triage Assessment: 12:36 General: Appears in no apparent distress, Behavior is appropriate for age, cooperative. srm Pain: Location: back pain Pain currently is 4.5 out of 10 on a pain scale. HIV screening NA for this visit Offered previously. Historical: - Allergies: no known allergies; - Home Meds: 1. atenolol 25 mg Oral tab 1 tab once daily 2. atorvastatin 20 mg oral tab 1 tab once daily 3. aspirin 81 mg Oral tab 1 tab once daily 4. prednisone 5 mg Oral tab once daily 5. tamsulosin 0.4 mg oral cp24 1 cap once daily 6. Soma 350 mg Oral tab 1 tab 3 times per day 7. oxycodone 5 mg Oral cap prn 8. multivitamin Oral cap 1 tablet daily 9. Vitamin C 500 mg Oral tab daily - PMHx: enlarged prostate; Hypercholesterolemia; Hypertension; prostate cancer; bone cancer ( secondary); - PSHx: reconstructive surery on left hand /wrist; port placement; Tonsillectomy; - Social history: Smoking status: Patient states former smoker of tobacco. No barriers to communication noted, The patient speaks fluent Icelandic, Speaks appropriately for age. - Family history: Not pertinent. - : The pt / caregiver states he / she is not on anticoagulants. Home medication list is obtained from the patient. - Exposure Risk Screening:: None identified. Screenin:28 Screening information is obtained from the patient. Fall risk: No risks identified. dsf Assistance ADL's: requires no assistance with activities of daily living. Abuse/DV Screen: The patient / caregiver reports he/she is: not in a situation that causes fear, pain or injury. Nutritional screening: No deficits noted. home support is adequate. 15:40 Advance Directives: Currently, there is no health care proxy. bcj Assessment: 13:27 Adult Sepsis Screening: The patient does not have new or worsening altered mentation. dsf Patient's respiratory rate is less than 22. Systolic blood pressure is greater than 100. Patient has a qSOFA score of 0- Negative Sepsis Screen. General: Appears in no apparent distress, Behavior is appropriate for age, cooperative. Pain: Location: neck Pain currently is 4 out of 10 on a pain scale. Neurological: Level of Consciousness is awake, alert, Oriented to person, place, time. Cardiovascular: Capillary refill < 3 seconds Heart tones S1 S2 present. Respiratory: Airway is patent Respiratory effort is even, unlabored, Respiratory pattern is regular, symmetrical, Breath sounds are clear bilaterally. GI: Abdomen is non- distended Bowel sounds present X 4 quads. Abd is soft and non tender X 4 quads. : Urine is nedra blood. Derm: Skin is pink, warm & dry. 14:27 General: Appears in no apparent distress, comfortable, Behavior is appropriate for age, dsf cooperative. Neurological: Level of Consciousness is awake, alert, Oriented to person, place, time. Cardiovascular: Capillary refill < 3 seconds. Respiratory: Airway is patent Respiratory effort is even, unlabored, Respiratory pattern is regular, symmetrical. Derm: Skin is pink, warm & dry. 15:06 General: Dr. Smith talking to patient. pt refusing [place] catheter at this time . dsf 15:40 General: Appears in no apparent distress, comfortable, Behavior is cooperative. Derm: bcj Skin is pink, warm & dry. Vital Signs: 12:27 BP 101 / 65; Pulse 102; Resp 18; Temp 98.6(O); Pulse Ox 98% on R/A; Weight 94.35 kg ct3 (R); Height 5 ft. 8 in. (172.72 cm) (R); Pain 4/10; 15:40 BP 105 / 57; Pulse 70; Resp 16; Temp 98; Pulse Ox 95% on R/A; Pain 0/10; bcj 12:27 Body Mass Index 31.63 (94.35 kg, 172.72 cm) ct3 Vitals: 12:27 Log In Time: June 13, 2016 at 12:25. RN notified that patient meets Red Flag ct3 criteria. ED Course: 12:27 Patient visited by Ana Hale PCA. ct3 12:27 Javier Devi is Private Physician. ct3 12:27 Patient moved to Waiting ct3 12:29 Patient moved to Pre RCE ct3 12:32 Triage Initiated srm 12:38 Patient moved to 7 srm 13:11 Josseline Smith MD is Attending Physician. fg 13:12 Patient visited by Josseline Smith MD. fg 13:26 Basic Metabolic Profile Sent. dsf 13:26 Urine Culture Sent. dsf 13:28 Patient visited by Claudette Leigh RN. dsf 13:28 Inserted saline lock: 20 gauge in right antecubital area The patient tolerated the dsf procedure well. 14:31 Patient visited by Claudette Leigh RN. dsf 15:09 [facility] Payment Agreement was scanned into [employer] and attached to record. jp5 15:14 Javier Devi is Referral Physician. fg 15:40 No apparent distress. Resting quietly. Awaiting disposition. bcj 15:40 The patient / caregiver is instructed regarding the plan of care and ED course. bcj 15:40 Discontinued lock intact. No procedures done that require assistance. bcj 15:42 Patient visited by Ferny Piper RN. [facility] 06/14 12:38 T-Sheet-- Draft Copy was scanned into [employer] and attached to record. klr Order Results: Lab Order: Urine Culture; SPEC'M 06/13/16 13:24 Test: URINE CULTURE; Value: <EXTERNAL COMMENT eCWMed> FULL REPORT IN LAB NOTES (eCW and Medent).; Status: F Test: URINE CULTURE; Value: ORGANISM 1: STAPHYLOCOCCUS AUREUS; Status: F Test: URINE CULTURE; Value: STAPHYLOCOCCUS AUREUS; Status: F Test: URINE CULTURE; Value: COLONY COUNT CFU/ml >100,000; Status: F Test: URINE CULTURE; Value: GRAM POS SENSI - VITEK 67; Status: F Test: URINE CULTURE; Value: Method: VIT2; Status: F Test: URINE CULTURE; Value: TETRACYCLINE <=1 S; Status: F Test: URINE CULTURE; Value: PENICILLIN G 0.06 R; Status: F Test: URINE CULTURE; Value: TRIMETHOPRIM/SULFAMETHOXAZOLE <=10 S; Status: F Test: URINE CULTURE; Value: ERYTHROMYCIN <=0.25 S; Status: F Test: URINE CULTURE; Value: GENTAMICIN <=0.5 S; Status: F Test: URINE CULTURE; Value: CLINDAMYCIN <=0.25 S; Status: F Test: URINE CULTURE; Value: NITROFURANTOIN <=16 S; Status: F Test: URINE CULTURE; Value: OXACILLIN <=0.25 S; Status: F Test: URINE CULTURE; Value: VANCOMYCIN <=0.5 S; Status: F Test: URINE CULTURE; Value: LINEZOLID (ZYVOX) 2 S; Status: F Lab Order: Basic Metabolic Profile; SPEC'M 06/13/16 13:24 Test: GLUCOSE, FASTING; Value: 143; Range: 70-105; Abnormal: Above high normal; Units: MG/DL; Status: F Test: BLOOD UREA NITROGEN; Value: 19; Range: 7-18; Abnormal: Above high normal; Units: MG/DL; Status: F Test: CREATININE FOR GFR; Value: 1.04; Range: 0.70-1.30; Units: MG/DL; Status: F Test: GLOMERULAR FILTRATION RATE; Value: > 60.0; Range: >56; Status: F Test: SODIUM LEVEL; Value: 137; Range: 136-145; Units: MEQ/L; Status: F Test: POTASSIUM SERUM; Value: 3.8; Range: 3.5-5.1; Units: MEQ/L; Status: F Test: CHLORIDE LEVEL; Value: 105; Range: 98-107; Units: MEQ/L; Status: F Test: CARBON DIOXIDE LEVEL; Value: 22; Range: 21-32; Units: MEQ/L; Status: F Test: ANION GAP; Value: 10; Range: 8-16; Units: MEQ/L; Status: F Test: CALCIUM LEVEL; Value: 8.0; Range: 8.5-10.1; Abnormal: Below low normal; Units: MG/DL; Status: F Test Note: ; Units are mL/min/1.73 m2 Chronic Kidney Disease Staging per NKF: Stage I & II GFR >=60 Normal to Mildly Decreased Stage III GFR 30-59 Moderately Decreased Stage IV GFR 15-29 Severely Decreased Stage V GFR <15 Very Little GFR Left ESRD GFR <15 on BUSINESS DATA ANALYST Lab Order: URINALYSIS MANUAL; SPEC'M 06/13/16 13:24 Test: APPEARANCE, URINE MANUAL; Value: TURBID; Range: CLEAR; Abnormal: Above high normal; Status: F Test: COLOR, URINE MANUAL; Value: RED; Range: YELLOW; Abnormal: Above high normal; Status: F Test: PH,URINE MAN; Value: 6.0; Range: 5.0 - 9.0; Units: UNITS; Status: F Test: SPECIFIC GRAVITY,URINE MANUAL; Value: 1.015; Range: 1.002-1.035; Status: F Test: PROTEIN, URINE MANUAL; Value: 3+; Range: NEGATIVE; Abnormal: Above high normal; Units: mg/dL; Status: F Test: GLUCOSE, URINE (UA) MANUAL; Value: NEGATIVE; Range: NEGATIVE; Units: mg/dL; Status: F Test: KETONE, URINE MANUAL; Value: NEGATIVE; Range: NEGATIVE; Units: mg/dL; Status: F Test: UROBILINOGEN, URINE MANUAL; Value: NORMAL; Range: NORMAL; Units: mg/dl; Status: F Test: BILIRUBIN, URINE MANUAL; Value: NEGATIVE; Range: NEGATIVE; Status: F Test: NITRITE, URINE MANUAL; Value: NEGATIVE; Range: NEGATIVE; Status: F Test: LEUKOCYTE ESTERASE, URINE MAN; Value: TRACE; Range: NEGATIVE; Abnormal: Above high normal; Status: F Test: BLOOD URINE MANUAL; Value: POSITIVE; Range: NEGATIVE; Abnormal: Above high normal; Status: F Lab Order: MICROSCOPIC, URINE; SPEC'M 06/13/16 13:24 Test: WBC, URINE; Value: 10-15; Range: 0-3; Abnormal: Above high normal; Units: /hpf; Status: F Test: RBC, URINE; Value: TNTC; Range: 0-3; Abnormal: Above high normal; Units: /hpf; Status: F Test: SQUAMOUS EPITHELIAL CELL URINE; Value: NONE SEEN; Range: SMALL AMT; Units: /hpf; Status: F Test: BACTERIA, URINE; Value: SMALL AMOUNT; Range: NONE; Abnormal: Above high normal; Status: F Test: HYALINE CAST, URINE; Value: NONE SEEN; Range: 0-1; Units: /lpf; Status: F Test: MICROSCOPIC EXAM; Value: PERFORMED; Status: F Outcome: 06/13 15:14 Discharge ordered by Provider. 15:40 Discharge Assessment: patient administered narcotics - no. The following High Risk [facility] Discharge criteria are identified: None. Discharged to home ambulatory, with family. Condition: stable. Discharge instructions given to patient, Instructed on discharge instructions, follow up and referral plans. diet. No special radiology studies were completed. Property :Personal belongings accompany Pt. 15:42 Patient left the ED. [facility] Signatures: Ferny Piper RN RN Joselyn Matos RN RN srm Hale, Ana, SOFTWARE WRITER SOFTWARE WRITER ct3 Claudette Leigh RN RN [facility] Naeem Boone 5 Josseline Smith MD MD fg Redder, Kathie klr Corrections: (The following items were deleted from the chart) 13:47 13:26 URINALYSIS+LAB sent. [facility] EDMS Chart Complete MTDRosa Elena
== END 2016-06-13 15:42 | disposition home or self-care (01) ==
LOC: M ED 12:25
DX: R31.9 Hematuria, unspecified (principal); C61 Malignant neoplasm of prostate; C79.51 Secondary malignant neoplasm of bone; I10 Essential (primary) hypertension; E78.00 Pure hypercholesterolemia, unspecified; N40.0 Benign prostatic hyperplasia without lower urinary tract symptoms; Z79.899 Other long term (current) drug therapy; Z79.82 Long term (current) use of aspirin; Z79.52 Long term (current) use of systemic steroids

== ENCOUNTER 2016-07-19 08:32 | Outpatient (CLI) | payer MEDICAID, OTHER ==
[~2016-07-19] VITALS: Ht 172.7 cm; Wt 93.2 kg
[2016-07-19] MEDS ORDERED: ZOLEDRONIC ACID IV ONE (09:00)
[2016-07-19] MEDS ORDERED: D5W MINI IV ONE (09:00)
== END 2016-07-19 09:40 | disposition home or self-care (01) ==
LOC: M INFU 08:32
PROVIDERS: ATTEND Family Medicine
DX: C79.51 Secondary malignant neoplasm of bone (principal)
CPT/HCPCS: 96365; J3489

== ENCOUNTER → 2016-08-07 | Outpatient (CLI) | payer OTHER ==
[~2016-08-07] MED LIST changes: +GASTROGRAFIN SOLUTION 30ML (Q9963) As Ordered ONE; +ISOVUE-370 76% 100ML VIAL (Q9967) As Ordered ONE
--- NOTE | 2016-08-07 11:56 | REP ---
HEAD CT WITHOUT AND WITH IV CONTRAST: HISTORY: Metastatic prostate cancer. Comparison is made with bone scan images from 02/08/2016. Comparison head CT study is from 01/16/2016. CT FINDINGS: There is a sclerotic lesion, consistent with a prostate osteoblastic metastasis involving the clivus, eccentric somewhat to the left. This measures up to 2.8 cm in diameter and corresponds with the skull base activity seen scintigraphically on 02/08/2016 bone scan. This extends caudally along the anterior aspect of the foramen magnum. No other definite sclerotic calvarial metastasis is appreciated. On soft tissue window settings, the lateral, third, and fourth ventricles are normal in size and position. Ibarra-white differentiation pattern is normal above and below the tentorium. There is no evidence of intracranial mass lesion. Postcontrast images show enhancement in normal vascular structures. No abnormal contrast enhancement is appreciated. 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 Signed by Beka Olvera MD 08/07/2016 03:59 P
--- NOTE | 2016-08-07 12:22 | REP ---
CT CHEST WITH CONTRAST: 08/07/2016 CLINICAL HISTORY: Prostate carcinoma with metastatic bone disease. Followup. COMPARISON: 01/27/2016 TECHNIQUE: Bolus of 100 mL of Isovue 370 given and scanning through the chest. Coronal and sagittal reconstructions were provided. Bone windows are reviewed. FINDINGS: The lung solomon remain well inflated. There is no pleural effusion, pleural thickening, pulmonary nodule or parenchymal mass. No acute infiltrate. Heart size unchanged. There are some calcifications at the aortic root. The aorta is without aneurysm or dissection. No mediastinal or hilar pathologic sized adenopathy. No pericardial thickening or effusion. Tracheal airway intact. No axillary or supraclavicular mass. Bone windows show the sternum, manubrium, clavicles and visualized portions of humeral heads intact. There are degenerative changes at the glenohumeral joint. There is sclerotic appearance at the base of the glenoid and coracoid representing metastatic disease. This appears new since the previous study. The ribs show sclerotic focus along the medial aspect of the T7 right rib and there is articulation with transverse process. Small focus in the lateral aspect right 4th rib near the posterior axillary line. Left ribs show the, 2nd, 6th, 7th a few sclerotic lesions as well. In the vertebral bodies, the T6, T10, T7 and T3 T2 vertebral level show sclerotic foci with a tiny one in T11 representing a blastic metastatic disease. The T2 vertebral body lesion appears new or increased. IMPRESSION: 1. Metastatic disease in the vertebral bodies, ribs and the right glenoid and coracoid base and the scapula similar to previous studies, slightly increased with a new lesion appearing at T2 vertebral body. 2. No mediastinal or hilar pathologic adenopathy and the lung solomon are clear. Signed by Lowell Hernandez MD 08/07/2016 05:16 P
--- NOTE | 2016-08-07 12:34 | REP ---
CT ABDOMEN PELVIS WITHOUT WITH CONTRAST: 08/07/2016 CLINICAL HISTORY: Prostate carcinoma. Bony metastatic disease. COMPARISON: 01/27/2016. TECHNIQUE: Oral Gastrografin mixture 10 mL in 290 mL as of flavored water for two doses per our bowel contrast protocol. Scanning through the abdomen followed by bolus of 100 mL as Isovue 370 and scanning through the abdomen and pelvis and a delayed set of images through the abdomen. Coronal and sagittal reconstructions obtained and bone windows reviewed. FINDINGS: CT ABDOMEN: There is no hepatosplenomegaly, focal hepatic mass or biliary dilatation. The gallbladder shows no calcified stone or mass. Pancreas grossly unremarkable. Adrenal glands normal. Stomach is without hiatal hernia. Lung bases are clear. Heart is not enlarged. There is no pericardial thickening or effusion. Small bowel loops in the abdomen are without dilatation. There is no periaortic or mesenteric pathologic sized adenopathy. Kidneys show function without obstruction, stone, mass or cyst. No perinephric fluid. Ureters are seen described a normal course to the bladder without dilatation on the right. The distal ureter on the left is minimally dilated without a stone. The colon shows contrast and stool scattered throughout without colitis or diverticulitis in the abdominal portion. There are a few scattered diverticula on the left. Appendix is seen and normal. Some mild diastases of the rectus muscles but no bowel herniation evident. Lung window review shows no sign of perforation, free air or abscess. No generalized ascites. The bone windows show bilateral L5 spondylolysis with grade 1 spondylolisthesis of L5 on S1. Large sclerotic focus in the L1 vertebral body and the T10 as well as T6, other smaller lesions at T7 and T8. All this is unchanged from the previous study. CT PELVIS: The bladder shows a thickened wall. The prostate is enlarged and indents the bladder base with a nodular impression slight dilatation of the distal left ureter without stone or mass. Right ureter unremarkable. No bladder calcification. There is no ventral hernia. Inguinal canals are distended with omental fat but no bowel herniation and no inguinal adenopathy. No pelvic free fluid. Distal left colon, sigmoid and rectum without colitis or diverticulitis. Small bowel loops grossly intact. Pelvic phleboliths are seen. The bony pelvis shows diffuse sclerotic lesion throughout the acetabulum and its anterior posterior columns and extending into the superior pubic ramus. The lesion is of greater extent in the posterior column than it was and extending into the superior ramus has increased. There is a single lesion in the anterior column of the right acetabulum is new. Hips show a tiny sclerotic focus in the intertrochanteric region of the left and another in the left femoral neck, unchanged. These may be bone islands or metastatic lesions. The inferior pubic ramus on the right shows sclerosis unchanged. IMPRESSION: 1. Large prostate with normal bladder base with a thickened bladder wall suggesting some degree of bladder outlet obstruction. There is a mild dilatation distal left ureter without stone. 2. No other intra-abdominal or pelvic significant finding. 3. Abnormal bone window findings with metastatic disease in the right acetabulum more extension into the posterior column and into the superior pubic ramus than on the previous study. There is also a new lesion in the left acetabular and anterior column and no change in lesions of the iliac wing on the right side. No pathologic fractures. Signed by Lowell Hernandez MD 08/07/2016 05:16 P
--- NOTE | 2016-08-07 13:10 | REP ---
Radionuclide bone scan: Comparison is 02/08/2016. Study is performed after intravenous infusion of technetium infusion of 22, 0.0 mCi of technetium 99m labeled MDP. There is focal uptake at the base of the skull as previously. There is focal intense uptake in the right shoulder likely in the glenoid or coracoid process, similar to the prior study. There is a focal uptake in of the approximate T7 vertebral body and in the right and left costovertebral junctions adjacent to this vertebral body, the approximate T11 vertebral body and in the approximate L1 vertebral body. These are all unchanged. In the pelvis there is a focus of uptake anteriorly in the right iliac wing. There is also uptake in the right acetabulum extending into the right ischium. I suspect there is uptake in the sacroiliac articulations bilaterally, however this is partially obscured by radial labeling of the bladder. This is unchanged. There are scattered foci of rib uptake, unchanged. No foci are identified in the lower extremities. Impression: Multiple foci of increased uptake, similar to the comparison study, compatible with multiple skeletal metastases. Signed by Keysahwn Mcghee MD 08/07/2016 01:01 P
== END ==
LOC: M RAD 08:40
PROVIDERS: ATTEND Internal Medicine Medical Oncology
DX: C61 Malignant neoplasm of prostate (principal); C79.51 Secondary malignant neoplasm of bone; C79.31 Secondary malignant neoplasm of brain
CPT/HCPCS: 70470; 71260; 74178; Q9963; Q9967

== ENCOUNTER 2016-08-21 08:03 | Outpatient (CLI) | payer MEDICAID ==
[~2016-08-21] VITALS: Ht 172.7 cm; Wt 93.2 kg
[~2016-08-21 08:03] MED LIST changes: -GASTROGRAFIN SOLUTION 30ML (Q9963) As Ordered ONE; -ISOVUE-370 76% 100ML VIAL (Q9967) As Ordered ONE
[2016-08-21] MEDS ORDERED: PRED25TA PO (08:51)
[2016-08-21] MEDS ORDERED: SOMA350T PO (08:52)
[2016-08-21] MEDS ORDERED: ZOLEDRONIC ACID 4 MG in D5W 100 ML IV ONE (09:00)
== END 2016-08-21 09:25 | disposition home or self-care (01) ==
LOC: M INFU 08:03
PROVIDERS: ATTEND Family Medicine
DX: C79.51 Secondary malignant neoplasm of bone (principal)
CPT/HCPCS: 96413; J3489

== ENCOUNTER → 2016-08-23 | Outpatient (REF) | payer OTHER ==
[~2016-08-23] MED LIST changes: +PRED25TA PO; +SOMA350T PO
== END ==
LOC: M SFHCPLAZ 13:03
PROVIDERS: ATTEND Family Medicine
DX: R31.9 Hematuria, unspecified (principal)

== ENCOUNTER → 2016-11-02 | Outpatient (CLI) | payer OTHER ==
[2016-11-02 13:30] LABS: BASO % 0.6 % (0.0-1.0); EOS # 0.1 K/mm3 (0.0-0.50); EOS % 3.2 % (0.0-3.0); LARGE UNSTAINED CELL # 0.1 K/mm3 (0.0-0.4); LARGE UNSTAINED CELL % 2.5 % (0.0-4.0); LYMPH # 1.2 K/mm3 (1.5-4.5); LYMPH % 35.1 % (24.0-44.0); MEAN CORPUSCULAR HEMOGLOBIN 31.8 pg (27.0-33.0); MEAN CORPUSCULAR HGB CONC 34.5 g/dl (32.0-36.5); MEAN CORPUSCULAR VOLUME 92.1 fl (80.0-96.0); MONO # 0.2 K/mm3 (0.0-0.8); MONO % 5.6 % (0.0-5.0); NEUTROPHILS # 1.8 K/mm3 (1.8-7.7); NEUTROPHILS % 52.9 % (36.0-66.0); PLATELET COUNT, AUTOMATED 179 k/mm3 (150-450); RED CELL DISTRIBUTION WIDTH 14.5 % (11.5-14.5); WHITE BLOOD COUNT 3.4 K/mm3 (4.0-10.0)
[2016-11-02 14:06] LABS: ALBUMIN 3.9 GM/DL (3.2-5.2); ALBUMIN/GLOBULIN RATIO 1.26 (1.00-1.93); ALKALINE PHOSPHATASE 61 U/L (45-117); ALT/SGPT 39 U/L (12-78); ANION GAP 10 MEQ/L (8-16); AST/SGOT 17 U/L (15-37); BILIRUBIN,TOTAL 0.5 MG/DL (0.2-1.0); BLOOD UREA NITROGEN 18 MG/DL (7-18); CALCIUM LEVEL 8.9 MG/DL (8.5-10.1); CARBON DIOXIDE LEVEL 22 MEQ/L (21-32); CHLORIDE LEVEL 112 MEQ/L (98-107); CREATININE FOR GFR 0.76 MG/DL (0.70-1.30); GLOMERULAR FILTRATION RATE > 60.0 (>56); GLUCOSE, FASTING 101 MG/DL (70-105); POTASSIUM SERUM 4.1 MEQ/L (3.5-5.1); SODIUM LEVEL 144 MEQ/L (136-145)
== END ==
LOC: M LAB 11:59
PROVIDERS: ATTEND Nurse Practitioner Adult Health
DX: C61 Malignant neoplasm of prostate (principal); C79.51 Secondary malignant neoplasm of bone

== ENCOUNTER → 2016-12-01 | Outpatient (REF) | payer OTHER ==
[2016-12-01 13:35] LABS: BASO % 0.5 % (0.0-1.0); EOS # 0.2 K/mm3 (0.0-0.50); EOS % 4.3 % (0.0-3.0); LARGE UNSTAINED CELL # 0.1 K/mm3 (0.0-0.4); LARGE UNSTAINED CELL % 2.9 % (0.0-4.0); LYMPH # 1.6 K/mm3 (1.5-4.5); LYMPH % 36.4 % (24.0-44.0); MEAN CORPUSCULAR HEMOGLOBIN 31.8 pg (27.0-33.0); MEAN CORPUSCULAR VOLUME 93.5 fl (80.0-96.0); MONO # 0.2 K/mm3 (0.0-0.8); MONO % 5.6 % (0.0-5.0); NEUTROPHILS # 2.2 K/mm3 (1.8-7.7); NEUTROPHILS % 50.2 % (36.0-66.0); PLATELET COUNT, AUTOMATED 199 k/mm3 (150-450); RED CELL DISTRIBUTION WIDTH 14.3 % (11.5-14.5); WHITE BLOOD COUNT 4.3 K/mm3 (4.0-10.0)
[2016-12-05 00:10] LABS: Lyme Disease IgG/IgM Antibodie <0.91 ISR (0.00-0.90); Lyme Disease IgM Ab Quantitati <0.80 index (0.00-0.79)
== END ==
LOC: M SFHCPLAZ 11:12
PROVIDERS: ATTEND Family Medicine
DX: M89.8X1 Other specified disorders of bone, shoulder (principal); Z85.46 Personal history of malignant neoplasm of prostate; R53.82 Chronic fatigue, unspecified

== ENCOUNTER → 2016-12-08 | Outpatient (CLI) | payer OTHER ==
--- NOTE | 2016-12-08 14:36 | REP ---
RIGHT SHOULDER, THREE VIEWS: HISTORY: Pain. There is no acute fracture or dislocation. The joint spaces are normal in appearance. A sclerotic lesion is present in the coracoid process and superior glenoid. IMPRESSION: There is a sclerotic lesion in the coracoid process and superior glenoid consistent with metastasis. Signed by Janes De León MD 12/08/2016 02:37 P
--- NOTE | 2016-12-08 14:40 | REP ---
Chest two views HISTORY: Right shoulder pain Comparison: 06/27/2006 The lungs are clear. The heart is normal in size. The pulmonary vasculature is normal in appearance. A sclerotic lesion is present in the right coracoid process and glenoid. An Exwbyt-M-Ghpm catheter is present in the superior vena cava. IMPRESSION: There is a sclerotic lesion in the right coracoid process and glenoid consistent with metastasis. Signed by Janes De León MD 12/08/2016 02:32 P
== END ==
LOC: M RAD 11:12
PROVIDERS: ATTEND Internal Medicine Hospice and Palliative Medicine
DX: M25.511 Pain in right shoulder (principal); R93.7 Abnormal findings on diagnostic imaging of other parts of musculoskeletal system

== ENCOUNTER → 2016-12-29 | Outpatient (CLI) | payer OTHER ==
[2016-12-29 14:00] LABS: BASO % 0.5 % (0.0-1.0); EOS # 0.2 K/mm3 (0.0-0.50); EOS % 5.3 % (0.0-3.0); LARGE UNSTAINED CELL # 0.1 K/mm3 (0.0-0.4); LARGE UNSTAINED CELL % 2.3 % (0.0-4.0); LYMPH # 1.2 K/mm3 (1.5-4.5); LYMPH % 35.3 % (24.0-44.0); MEAN CORPUSCULAR HEMOGLOBIN 32.2 pg (27.0-33.0); MEAN CORPUSCULAR HGB CONC 34.6 g/dl (32.0-36.5); MONO # 0.2 K/mm3 (0.0-0.8); MONO % 4.4 % (0.0-5.0); NEUTROPHILS # 1.7 K/mm3 (1.8-7.7); NEUTROPHILS % 52.2 % (36.0-66.0); PLATELET COUNT, AUTOMATED 158 k/mm3 (150-450); RED CELL DISTRIBUTION WIDTH 13.6 % (11.5-14.5); WHITE BLOOD COUNT 3.3 K/mm3 (4.0-10.0)
== END ==
LOC: M LAB 13:35
PROVIDERS: ATTEND Internal Medicine Medical Oncology
DX: C61 Malignant neoplasm of prostate (principal); C79.51 Secondary malignant neoplasm of bone

== ENCOUNTER → 2017-01-23 | Outpatient (REF) | payer OTHER ==
[2017-01-23 16:23] LABS: BASO % 0.7 % (0.0-1.0); EOS # 0.2 10^3/uL (0.0-0.50); EOS % 4.2 % (0.0-3.0); IMMATURE GRANULOCYTE % 0.5 % (0-0); LYMPH # 1.3 10^3/uL (1.5-4.5); LYMPH % 32.4 % (24.0-44.0); MEAN CORPUSCULAR HEMOGLOBIN 32.8 pg (27.0-33.0); MEAN CORPUSCULAR VOLUME 96.6 fl (80.0-96.0); MONO # 0.4 10^3/uL (0.0-0.8); MONO % 9.2 % (0.0-5.0); NEUTROPHILS # 2.1 10^3/uL (1.8-7.7); PLATELET COUNT, AUTOMATED 184 10^3/uL (150-450); RED CELL DISTRIBUTION WIDTH 13.1 % (11.5-14.5)
[2017-01-23 16:31] LABS: ADD MORPHOLOGY? NO
[2017-01-23 16:38] LABS: ANION GAP 7 MEQ/L (8-16); BLOOD UREA NITROGEN 18 MG/DL (7-18); CALCIUM LEVEL 9.5 MG/DL (8.5-10.1); CARBON DIOXIDE LEVEL 27 MEQ/L (21-32); CHLORIDE LEVEL 109 MEQ/L (98-107); CREATININE FOR GFR 0.72 MG/DL (0.70-1.30); GLOMERULAR FILTRATION RATE > 60.0 (>56); GLUCOSE, FASTING 97 MG/DL (70-105); POTASSIUM SERUM 4.1 MEQ/L (3.5-5.1); SODIUM LEVEL 143 MEQ/L (136-145)
== END ==
LOC: M SFHCPLAZ 12:55
PROVIDERS: ATTEND Family Medicine
DX: I10 Essential (primary) hypertension (principal); C61 Malignant neoplasm of prostate

== ENCOUNTER → 2017-01-24 | Outpatient (CLI) | payer OTHER ==
[2017-01-24 08:05] LABS: BASO % 0.5 % (0.0-1.0); EOS # 0.2 10^3/uL (0.0-0.50); EOS % 4.3 % (0.0-3.0); IMMATURE GRANULOCYTE % 0.2 % (0-0); LYMPH # 1.4 10^3/uL (1.5-4.5); LYMPH % 34.5 % (24.0-44.0); MEAN CORPUSCULAR HEMOGLOBIN 32.1 pg (27.0-33.0); MEAN CORPUSCULAR HGB CONC 33.9 g/dl (32.0-36.5); MEAN CORPUSCULAR VOLUME 94.5 fl (80.0-96.0); MONO # 0.4 10^3/uL (0.0-0.8); MONO % 9.2 % (0.0-5.0); NEUTROPHILS # 2.1 10^3/uL (1.8-7.7); NEUTROPHILS % 51.3 % (36.0-66.0); PLATELET COUNT, AUTOMATED 174 10^3/uL (150-450); RED CELL DISTRIBUTION WIDTH 12.9 % (11.5-14.5); WHITE BLOOD COUNT 4.1 10^3/uL (4.0-10.0)
[2017-01-24 08:34] LABS: ALBUMIN 3.9 GM/DL (3.2-5.2); ALBUMIN/GLOBULIN RATIO 1.26 (1.00-1.93); ALKALINE PHOSPHATASE 66 U/L (45-117); ALT/SGPT 54 U/L (12-78); ANION GAP 8 MEQ/L (8-16); AST/SGOT 32 U/L (15-37); BILIRUBIN,TOTAL 0.3 MG/DL (0.2-1.0); BLOOD UREA NITROGEN 20 MG/DL (7-18); CALCIUM LEVEL 9.3 MG/DL (8.5-10.1); CARBON DIOXIDE LEVEL 26 MEQ/L (21-32); CHLORIDE LEVEL 108 MEQ/L (98-107); CREATININE FOR GFR 0.82 MG/DL (0.70-1.30); GLOMERULAR FILTRATION RATE > 60.0 (>56); GLUCOSE, FASTING 119 MG/DL (70-105); POTASSIUM SERUM 3.8 MEQ/L (3.5-5.1); SODIUM LEVEL 142 MEQ/L (136-145)
== END ==
LOC: M LAB 07:04
PROVIDERS: ATTEND Nurse Practitioner Adult Health
DX: C61 Malignant neoplasm of prostate (principal); C79.51 Secondary malignant neoplasm of bone

== ENCOUNTER → 2017-06-13 | Outpatient (CLI) | payer OTHER | LOC: M WUC 10:26 | DX: M89.9 Disorder of bone, unspecified (principal); M25.711 Osteophyte, right shoulder | CPT/HCPCS: 73030 ==

== ENCOUNTER → 2018-06-18 | Outpatient (CLI) | payer OTHER ==
[~2018-06-18] MED LIST changes: +FLOM0.4C39 PO; -FLOM5CAP PO; +GASTROGRAFIN SOLUTION 30ML (Q9963) As Ordered ONE; +ISOVUE-370 76% 100ML VIAL (Q9967) As Ordered ONE; +ZOFR4TAB14 PO; -ZOFR4TAB3 PO
--- NOTE | 2018-06-19 05:14 | REP ---
Clinical: Prostate cancer. Restaging. Technique: Axial contrast enhanced images from the lung bases to the pubic symphysis using oral (per protocol) and 100 ml Isovue 370 intravenous contrast material with precontrast and delayed images of the abdomen as well as coronal and sagittal re-formations. Automated dose lowering techniques and adjustment according to patient's size were utilized during image acquisition. Comparison: 05/08/2017 Findings: Lung bases demonstrate mild posterior basilar dependent changes. Visualized portions of the heart and pericardium are normal. Liver, spleen, pancreas, gallbladder, bilateral adrenal glands and kidneys are normal. The enteric system is without obstruction or acute inflammatory process. Scattered sigmoid diverticula noted without acute diverticulitis. Normal terminal ileum and appendix are identified in the right lower quadrant. Pelvis demonstrates enlarged prostate gland with mass effect on the base of the bladder similar to prior examination. Bilateral fat containing inguinal hernias noted (left greater than right) no pelvic fluid or ascites. No free air. No intraperitoneal or retroperitoneal adenopathy. Abdominal aorta and vasculature without aneurysm or dissection. Musculoskeletal structures demonstrate scattered sclerotic osseous metastatic disease similar to prior examination predominantly involving the pelvis/right hip. Impression: 1. Osseous metastatic disease similar to prior examination. 2. Few scattered sigmoid diverticula without acute diverticulitis. 3. Enlarged prostate gland with mass effect on the base of the bladder. 4. Fat containing inguinal hernias. 5. No further acute abdominopelvic pathology appreciated. Specifically, no ascites, adenopathy, or focal mass lesion. Electronically Signed by Taj Funez MD 06/19/2018 05:05 A
--- NOTE | 2018-06-19 05:22 | REP ---
Clinical: Prostate cancer for restaging. Technique: Axial contrast enhanced images from the thoracic inlet to the upper abdomen with coronal and sagittal re-formations using 100 ml 370 intravenous contrast material. Automated dose lowering techniques and adjustment according to patient's size were utilized during image acquisition. Comparison: 05/08/2017. Findings: Lung solomon demonstrate minimal dependent changes without acute consolidation, significant nodule or mass lesion. No pleural effusion. No pneumothorax. Tracheobronchial tree is patent. No axillary, hilar, or mediastinal adenopathy. Thoracic aorta, pulmonary vasculature and heart/pericardium are relatively normal. Atherosclerotic changes to the coronary arteries noted. Scattered osseous metastatic disease involves a multiple thoracic vertebral bodies as well as right scapula and multiple ribs. Impression: 1. No acute mediastinal or pleuroparenchymal process. 2. Osseous metastatic disease similar to prior examination. Electronically Signed by Taj Funez MD 06/19/2018 05:13 A
--- NOTE | 2018-06-19 12:24 | REP ---
WHOLE-BODY BONE SCAN: 06/18/2018. Comparison: 05/08/2017. Clinical history: Restaging prostate carcinoma. Complains of bilateral rib pain. Technique: The patient received 21.5 mCi technetium 99m - MDP via an IV with sequential delayed anterior and posterior whole body and anterior and posterior oblique images of the chest, pelvis with lateral views of the head and neck, knees and feet. Findings: A pattern of uptake again in the spine at the L1 level. Activity at T10 and T6 is again seen and appears increased T6, new at T10. Posterior rib uptake on the left at T6 at the rib articulation. SI joints symmetric. There is uptake in the shoulders and AC joints in a symmetric fashion. There is also mandibular uptake diffusely increased from previous study. This could be due to dental disease. He denies any recent dental work. Paranasal sinuses with uptake suggests chronic sinus disease. Long bones are grossly intact. There is activity within the bladder and kidneys. Impression: 1. Pattern of metastatic disease again seen with some increase and there is a new focus in the T6 vertebral body not previously noted and many of the areas of uptake shows some increase compared to 05/08/2017 exam regarding intensity. No abnormal long bone uptake. 2. More extensive uptake about the mandible on both sides, right greater than left. The patient denies recent dental work. No other significant finding. Electronically Signed by Lowell Hernandez MD 06/19/2018 09:18 P
== END ==
LOC: M RAD 09:54
PROVIDERS: ATTEND Internal Medicine Medical Oncology
DX: C61 Malignant neoplasm of prostate (principal)
CPT/HCPCS: 71260; 74177; Q9963; Q9967

== ENCOUNTER → 2018-09-02 | Outpatient (REF) | payer OTHER ==
[~2018-09-02] MED LIST changes: -ASCO25TA PO; -GASTROGRAFIN SOLUTION 30ML (Q9963) As Ordered ONE; -ISOVUE-370 76% 100ML VIAL (Q9967) As Ordered ONE; +VITA1TAB23 PO
== END ==
LOC: M SFHCPLAZ 18:20
PROVIDERS: ATTEND Dermatology
DX: D48.5 Neoplasm of uncertain behavior of skin (principal)

== ENCOUNTER → 2019-05-05 | Outpatient (CLI) | payer OTHER ==
[~2019-05-05] MED LIST changes: +ISOVUE-370 76% 100ML VIAL (Q9967) As Ordered ONE
--- NOTE | 2019-05-05 15:17 | REP ---
INDICATION: CT neck for follow-up. prostate CA. PROCEDURE: CT neck with and without contrast. COMPARISON STUDIES: Nuclear medicine bone scan 06/18/2018. FINDINGS: There is a sclerotic appearance to the mandible, diffusely, with notably poor dentition. Mandibular sclerosis appears more likely due to chronic dental disease rather than to metastatic disease. Within the cervical spine, there is multilevel degenerative disc disease with loss of disc height and disc desiccation seen diffusely. Vertebral heights are well preserved. There is a slight retrolisthesis of C4 over C5 with loss of disc height at this level. On the sagittal T2-weighted images, there are no limiting canal stenoses. On review of axial images C2-3 disc/osteophyte complex formation with mild canal narrowing and ghwr-bu-yywjkriv bilateral foraminal narrowing C3-4 disc/osteophyte complex formation with moderate canal narrowing and moderate bilateral foraminal narrowing C4-5 disc/osteophyte complex formation with at least moderate canal stenosis and moderate bilateral foraminal narrowing C5-6 disc/osteophyte complex formation with moderate canal stenosis and vtvnjrfq-mp-yffypn bilateral foraminal narrowing C6-7 ible-js-djcyczul canal narrowing and moderate bilateral foraminal narrowing C7-T1 pwom-lv-vnpojllx canal narrowing and moderate bilateral foraminal narrowing. There is a rounded sclerotic lesion noted in C6 right anteriorly, and additional rounded sclerotic lesions within T2 and T3. These are seen centrally within the vertebrae. There is a sclerotic lesion in the clivus, greater on the left, and appears to involve the left occipital condyle. Visualized lung apices are clear. No definite lymphadenopathy. Mucosal thickening seen within the paranasal sinuses which are otherwise clear. Mastoid air cells are clear. IMPRESSION: 1. Sclerotic appearance to the mandible, bilaterally, with markedly poor dentition. The mandibular sclerosis more likely represents sequelae of chronic infection rather than metastatic disease. Dental consultation advised. 2. Osseous metastatic lesions as described at C6, T2 and T3 levels. No evidence of fracture. 3. Osseous metastatic lesion in the clivus and left occipital condyle. 4. No evidence of lymphadenopathy. 5. Degenerative changes with loss of disc height, slight retrolisthesis of C4 over C5, diffuse degenerative canal and foraminal stenosis as described. Electronically Signed by Praneeth Barney MD 05/05/2019 03:09 P
== END ==
LOC: M RAD 08:29
DX: L02.91 Cutaneous abscess, unspecified (principal)
CPT/HCPCS: 70491; Q9967

== ENCOUNTER → 2020-03-23 | Outpatient (CLI) | payer OTHER ==
[~2020-03-23] MED LIST changes: +ASCO250T20 PO; -ISOVUE-370 76% 100ML VIAL (Q9967) As Ordered ONE; +ISOVUE-370 76% 100ML VIAL As Ordered ONE; -VITA1TAB23 PO
--- NOTE | 2020-03-23 18:10 | REPVR ---
PROCEDURE INFORMATION: Exam: CT Maxillofacial With Contrast Exam date and time: 03/23/2020 5:23 PM Age: 59 years old Clinical indication: Condition or disease; Other: Osteonecrosis; Additional info: Osteonecrosis of jaw TECHNIQUE: Imaging protocol: Computed tomography images of the face with intravenous contrast. Radiation optimization: All CT scans at this facility use at least one of these dose optimization techniques: automated exposure control; mA and/or kV adjustment per patient size (includes targeted exams where dose is matched to clinical indication); or iterative reconstruction. Contrast material: ISO 370; Contrast volume: 75 ml; Contrast route: INTRAVENOUS (IV); COMPARISON: No relevant prior studies available. FINDINGS: Orbital cavity: The orbits are normal. Bones/joints: Sclerotic appearance the mandibular arch is consistent with reported history osteonecrosis. No acute fracture is visualized. There is complete osseous erosion at the floor of the left maxillary sinus. Paranasal sinuses: There is mild sinus mucosal disease, with no air-fluid level identified. Mastoid air cells: There is no mastoid effusion detected. Dental: Dental caries, periapical lucencies, and absent teeth are noted. IMPRESSION: 1. Findings consistent with reported history of osteonecrosis involving the mandibular arch. 2. Dental caries, periapical lucencies, and absent teeth are noted. 3. Complete osseous erosion at the floor of the left maxillary sinus. Electronically signed by: Yadira Ryder On 03/23/2020 18:10:28 PM
== END ==
LOC: M RAD 17:00
PROVIDERS: ATTEND Student in an Organized Health Care Education/Training Program
DX: M87.08 Idiopathic aseptic necrosis of bone, other site (principal)
CPT/HCPCS: 70487; Q9967

== ENCOUNTER → 2020-10-19 | Outpatient (REF) | payer OTHER ==
[~2020-10-19] MED LIST changes: -ISOVUE-370 76% 100ML VIAL As Ordered ONE
[2020-10-19 18:53] LABS: APPEARANCE, URINE HAZY (CLEAR); BACTERIA, URINE AUTO 1+ (NEGATIVE); BILIRUBIN, URINE AUTO NEGATIVE (NEGATIVE); BLOOD, URINE BLOOD 3+ (NEGATIVE); COLOR, URINE YELLOW (YELLOW); GLUCOSE, URINE (UA) AUTO NEGATIVE (NEGATIVE); KETONE, URINE AUTO NEGATIVE (NEGATIVE); LEUKOCYTE ESTERASE, URINE AUTO 2+ (NEGATIVE); MUCUS, URINE SMALL (NEGATIVE); NITRITE, URINE AUTO NEGATIVE (NEGATIVE); PROTEIN, URINE AUTO 1+ mg/dL (NEGATIVE); RBC, URINE AUTO TNTC /HPF (0-3); SQUAMOUS EPITHELIAL CELL UR AU 0 /HPF (0-6); UROBILINOGEN, URINE AUTO 0.2 mg/dL (0.0-2.0); WBC, URINE AUTO 51 /HPF (0-3)
== END ==
LOC: M SFHCWAGY 17:21
PROVIDERS: ATTEND Student in an Organized Health Care Education/Training Program
DX: R30.0 Dysuria (principal)

== ENCOUNTER 2020-11-08 15:51 | Emergency (ER) | payer OTHER ==
[~2020-11-08] VITALS: Ht 172.7 cm; Wt 91.3 kg
[2020-11-08 16:31] LABS: BILIRUBIN, URINE MANUAL NEGATIVE (NEGATIVE); GLUCOSE, URINE (UA) MANUAL NEGATIVE (NEGATIVE); KETONE, URINE MANUAL 1+ mg/dL (NEGATIVE); UROBILINOGEN, URINE MANUAL NORMAL (NORMAL)
[2020-11-08 16:34] LABS: BACTERIA, URINE SMALL AMOUNT; MUCUS, URINE MOD AMOUNT (NEGATIVE); RBC, URINE TNTC /hpf (0-3); SQUAMOUS EPITHELIAL CELL URINE SMALL AMOUNT /hpf (SMALL AMT); TRANSITIONAL EPI CELLS, URINE MOD AMOUNT /hpf
[2020-11-08 19:12] LABS: BASO % 0.5 % (0.0-1.0); EOS # 0.1 10^3/uL (0.0-0.5); EOS % 0.7 % (0.0-3.0); HEMATOCRIT 37.7 % (42.0-52.0); HEMOGLOBIN 12.7 g/dl (13.5-17.5); LYMPH # 1.8 10^3/uL (1.5-5.0); LYMPH % 21.7 % (24.0-44.0); MEAN CORPUSCULAR HEMOGLOBIN 31.9 pg (27.0-33.0); MEAN CORPUSCULAR HGB CONC 33.7 g/dl (32.0-36.5); MEAN CORPUSCULAR VOLUME 94.7 fl (80.0-96.0); MONO # 0.5 10^3/uL (0.0-0.8); NEUTROPHILS # 5.9 10^3/uL (1.5-8.5); NEUTROPHILS % 70.7 % (36.0-66.0); PLATELET COUNT, AUTOMATED 328 10^3/uL (150-450); RED BLOOD COUNT 3.98 10^6/uL (4.30-6.10); WHITE BLOOD COUNT 8.4 10^3/uL (4.0-10.0)
[2020-11-08] MEDS ORDERED: ASPIRIN 81 MG CHEW TABLET PO ONE (19:20)
[2020-11-08 19:45] LABS: ALBUMIN 3.7 GM/DL (3.2-5.2); ALT/SGPT 34 U/L (12-78); BILIRUBIN,DIRECT < 0.1 MG/DL (0.0-0.2); BILIRUBIN,TOTAL 0.4 MG/DL (0.2-1.0); BLOOD UREA NITROGEN 12 MG/DL (7-18); CALCIUM LEVEL 9.2 MG/DL (8.8-10.2); CARBON DIOXIDE LEVEL 24 MEQ/L (21-32); CHLORIDE LEVEL 108 MEQ/L (98-107); CK-MB VALUE MASS 2.2 NG/ML (<3.6); CPK CREATINE PHOSPHOKINASE 131 U/L (39-308); CREATININE FOR GFR 0.67 MG/DL (0.70-1.30); GLOMERULAR FILTRATION RATE > 60.0 (>49); GLUCOSE, FASTING 113 MG/DL (70-100); MB/CK RELATIVE INDEX 1.68 (< OR =4); POTASSIUM SERUM 3.7 MEQ/L (3.5-5.1); SODIUM LEVEL 140 MEQ/L (136-145); TOTAL PROTEIN 6.8 GM/DL (6.4-8.2); TROPONIN I < 0.02 NG/ML (< 0.10)
--- NOTE | 2020-11-08 20:10 | REP ---
INDICATION: L sided chest pain. COMPARISON: 12/08/2016. TECHNIQUE: PA and lateral FINDINGS: The superior mediastinal structures are midline. The cardiac silhouette is unremarkable in size, shape, and position. The diaphragmatic surfaces of the lungs are regular, and the costophrenic angles are clear. The pulmonary solomon are clear. The tip of the MediPort device is unchanged remaining in the superior vena cava. There is new bony density in what is likely T10 and again seen and what is likely T6. IMPRESSION: There is no acute cardiopulmonary disease. Possible blastic vertebral body lesions as described above. This needs clinical correlation and further evaluation. <Electronically signed by Akhil Ruiz > 11/08/202005
[2020-11-08] MEDS ORDERED: CIPROFLOXACIN 500MG TABLET PO ONE ×2 (20:15→22:20)
[2020-11-08] MEDS ORDERED: ISOVUE-370 76% 100ML VIAL As Ordered ONE (20:31)
[2020-11-08 20:54] LABS: INR 0.94; PROTHROMBIN TIME 12.8 SECONDS (12.5-14.3)
[2020-11-08 20:55] LABS: PARTIAL THROMBOPLASTIN TIME 27.5 SECONDS (24.2-38.5)
--- NOTE | 2020-11-08 21:44 | ECGEPIP ---
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
--- NOTE | 2020-11-08 21:55 | REPVR ---
PROCEDURE INFORMATION: Exam: CTA Chest With Contrast Exam date and time: 11/08/2020 8:57 PM Age: 60 years old Clinical indication: Other: Pancreatic cancer with mets, tachycardia, L cp, RO pe TECHNIQUE: Imaging protocol: Computed tomographic angiography of the chest with contrast. 3D rendering (Not supervised by radiologist): MIP and/or 3D reconstructed images were created by the technologist. Radiation optimization: All CT scans at this facility use at least one of these dose optimization techniques: automated exposure control; mA and/or kV adjustment per patient size (includes targeted exams where dose is matched to clinical indication); or iterative reconstruction. Contrast material: ISOVUE 370; Contrast volume: 75 ml; Contrast route: INTRAVENOUS (IV); COMPARISON: CT Chest with contrast 06/18/2018 11:29 AM FINDINGS: Pulmonary arteries: No central pulmonary embolism is seen. Evaluation of peripheral pulmonary arteries is limited due to inadequate contrast opacification and motion artifact. Aorta: Unremarkable. No aortic aneurysm. No aortic dissection. Lungs: Clear. No consolidation. No masses. Pleural spaces: No pneumothorax. No pleural effusion. Heart: Unremarkable. No cardiomegaly. No pericardial effusion. Lymph nodes: Unremarkable. No enlarged lymph nodes. Bones/joints: Skeletal degenerative changes are noted. Multiple sclerotic bone lesions throughout the visualized skeleton. Soft tissues: Unremarkable. IMPRESSION: 1. No central pulmonary embolism is seen. Evaluation of peripheral pulmonary arteries is limited due to inadequate contrast opacification and motion artifact. 2. No pulmonary masses or airspace consolidation. 3. Skeletal metastatic disease. Electronically signed by: Jarod Batista On 11/08/2020 21:55:17 PM
[2020-11-08] MEDS ORDERED: CIPR-249 PO (22:03)
--- NOTE | 2020-11-08 22:06 | REPVR ---
PROCEDURE INFORMATION: Exam: CT Abdomen And Pelvis Without Contrast Exam date and time: 11/08/2020 8:57 PM Age: 60 years old Clinical indication: Other: Pancreatic cancer with mets, hematuria, urinary retension TECHNIQUE: Imaging protocol: Computed tomography of the abdomen and pelvis without contrast. Radiation optimization: All CT scans at this facility use at least one of these dose optimization techniques: automated exposure control; mA and/or kV adjustment per patient size (includes targeted exams where dose is matched to clinical indication); or iterative reconstruction. COMPARISON: CT ABD/PEL W/IV ORAL CONTRAS 06/18/2018 11:29 AM FINDINGS: Liver: Unremarkable. No mass. Gallbladder and bile ducts: Normal. No calcified stones. No ductal dilation. Pancreas: Normal. No ductal dilation. Spleen: Normal. No splenomegaly. Adrenal glands: Normal. No mass. Kidneys and ureters: Distal ureters are mildly distended. No urinary tract calculi. Mild perinephric and periureteral edema. No renal masses. Stomach and bowel: There is colonic diverticulosis without evidence of diverticulitis. The small bowel is unremarkable. No bowel obstruction. Appendix: No evidence of appendicitis. Intraperitoneal space: No free air. No significant fluid collection. Vasculature: Unremarkable. No abdominal aortic aneurysm. Lymph nodes: Enlarged 1.8 cm right external iliac lymph node. Additional small retroperitoneal lymph nodes are noted anterior to the right psoas muscle. Urinary bladder: There is prominent wall thickening in the urinary bladder base which appears contiguous with the prostate gland. Punctate mucosal calcifications are noted in the bladder lumen. Milder wall thickening elsewhere in the bladder with mild surrounding soft tissue edema. Irregular intraluminal hemorrhage is present in the bladder lumen. The areas of bladder wall thickening encase the distal ureters, more so on the right. Urinary bladder: Unremarkable as visualized. Reproductive: The prostate gland is enlarged measuring approximately 6.8 x 7.5 cm, significantly increased in size since the prior exam. Bones/joints: Numerous sclerotic lesions are noted throughout the lumbar spine and pelvis. There are advanced degenerative changes in the spine and pelvis. Bilateral pars defects with grade 1 anterolisthesis with and advanced disc degeneration at L5-S1. Soft tissues: Unremarkable. IMPRESSION: 1. Enlarged prostate gland with possible invasion of the urinary bladder base. Irregular urinary bladder wall thickening partially encasing the distal ureters. Mild intraluminal hemorrhage in the urinary bladder. Enlarged right retroperitoneal lymph nodes. 2. Skeletal metastatic disease has progressed since the prior exam. 3. Colonic diverticulosis without evidence of diverticulitis. Electronically signed by: Jarod Batista On 11/08/2020 22:05:44 PM
[2020-11-08 22:16] VITALS: BP 132/90
== END 2020-11-08 22:39 | disposition home or self-care (01) ==
LOC: M ED 15:51
DX: N30.91 Cystitis, unspecified with hematuria (principal); R07.9 Chest pain, unspecified; C79.9 Secondary malignant neoplasm of unspecified site; I10 Essential (primary) hypertension; E78.5 Hyperlipidemia, unspecified; Z85.46 Personal history of malignant neoplasm of prostate; Z92.21 Personal history of antineoplastic chemotherapy; Z79.899 Other long term (current) drug therapy
CPT/HCPCS: 36415; 71046; 71275; 74176; 80048; 80076; 81000; 82550; 82553; 85025; 85610; 85730; 87088; 87186; 93005; 99284; Q9967

== ENCOUNTER 2021-02-04 11:49 | Inpatient (IN) | payer OTHER ==
[~2021-02-04] VITALS: Ht 172.7 cm; Wt 65.3 kg
[~2021-02-04 11:49] MED LIST changes: +CIPR-249 PO
[2021-02-04] MEDS ORDERED: NS 500 ML IV ONE (12:25)
[2021-02-04] MEDS ORDERED: ACETAMINOPHEN TAB 650MG DOSE (2X325MG) PO ONE (12:25)
[2021-02-04 12:40] LABS: HEMOGLOBIN 8.9 g/dl (13.5-17.5); MEAN CORPUSCULAR HEMOGLOBIN 28.1 pg (27.0-33.0); MEAN CORPUSCULAR HGB CONC 31.8 g/dl (32.0-36.5); MEAN CORPUSCULAR VOLUME 88.3 fl (80.0-96.0); PLATELET COUNT, AUTOMATED 348 10^3/uL (150-450); RED BLOOD COUNT 3.17 10^6/uL (4.30-6.10); WHITE BLOOD COUNT 10.5 10^3/uL (4.0-10.0)
[2021-02-04] MEDS ORDERED: POTASSIUM CHLORIDE 10MEQ SR TABLET PO ONE (12:40)
[2021-02-04 13:00] LABS: BLOOD UREA NITROGEN 14 MG/DL (7-18); CALCIUM LEVEL 12.5 MG/DL (8.8-10.2); CARBON DIOXIDE LEVEL 27 MEQ/L (21-32); CHLORIDE LEVEL 92 MEQ/L (98-107); CREATININE FOR GFR 0.89 MG/DL (0.70-1.30); GLOMERULAR FILTRATION RATE > 60.0 (>49); GLUCOSE, FASTING 127 MG/DL (70-100); POTASSIUM SERUM 3.4 MEQ/L (3.5-5.1); SODIUM LEVEL 131 MEQ/L (136-145)
[2021-02-04 13:04] LABS: LYMPHOCYTES 4 % (16-44); MONOCYTES 6 % (0-5); NEUTROPHILS 90 % (28-66)
[2021-02-04 13:05] LABS: ANISOCYTOSIS 1+; PLATELET ESTIMATE NORMAL (NORMAL)
[2021-02-04] MEDS ORDERED: POTA-136 PO (13:15)
[2021-02-04] MEDS ORDERED: OXYC-1 PO (13:15)
[2021-02-04] MEDS ORDERED: FOLI1TAB11 PO (13:15)
[2021-02-04] MEDS ORDERED: CALC200S NARES (13:18)
[2021-02-04] MEDS ORDERED: ASPI81TA26 PO (13:18)
[2021-02-04] MEDS ORDERED: FERR32TA PO (13:18)
[2021-02-04] MEDS ORDERED: HOME MED LIST COMPLETE! XX SCH (13:25)
[2021-02-04] MEDS: NS 1,000 ML IV SCH (14:45)
[2021-02-04 15:06] LABS: RSV AMPLIFICATION NEGATIVE (NEGATIVE)
[2021-02-04] MEDS ORDERED: oxyCODONE 5MG TAB PO PRN (16:15)
[2021-02-04] MEDS ORDERED: BISACODYL 10 MG SUPP PR ONE (16:15)
[2021-02-04] MEDS ORDERED: MORPHINE 30 MG TAB **MSIR PO PRN (16:15)
--- NOTE | 2021-02-04 16:47 | HPEPDOC ---
General Date of Admission 02/04/21 Date of Service: Feb 04, 2021 Chief Complaint The patient is a 60-year-old male admitted with a reason for visit of Abnormal Labs. 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 Patient was recently admitted at [facility] from 01/11/21 to 01/18/21 for metabolic encephalopathy, UTI, hypercalcemia and right hydronephrosis. CT abd and pelvis at outside hospital in dec 2020 showed large bladder mass, bulky regional lymphadenopathy causing nodularity of right ureter, proximal right ureteric large mass and bilateral hydronephrosis. Last chemotherapy was 2 weeks ago and last RT was 1-1/2 weeks ago. Patient was discharged with calcitonin nasal spray but pharmacies in [place] did not have it any more . The last day of calcitonin was on 01/31/21. Patient also complaining of generalized pain, weakness, constipation, abdominal discomfort. He is still confused but family at bed side says much better than last night. His abdominal discomfort is described as his whole abdomen feeling very hot and tinglingly and then cold. He does not really vocalize any definite pain. He does say he is constipated. Family says that he has been having difficulty in self catheterizations. His blood pressure mildly low at 90/60. Labs significant for hypercalcemia of 12.5, hb 8.9, K of 3.4, Na of 131. Patient was admitted for Hypercalcemia and metabolic encephalopathy. Home Medications Scheduled Aspirin (Aspirin EC) 81 Mg Tablet.dr, 81 MG PO DAILY, (Reported) Calcitonin,Lumpkin,Synthetic (Calcitonin-Lumpkin) 3.7 Ml [place].pump, 1 SPRAY NARES DAILY, (Reported) Ferrous Gluconate (Ferrous Gluconate) 324 Mg Tablet, 324 MG PO Q2D, (Reported) Folic Acid (Folic Acid) 1 Mg Tablet, 1 MG PO DAILY, (Reported) Potassium Chloride (Klor-Con M10) 10 Meq Tab.er.prt, 40 MEQ PO DAILY, (Reported) Tamsulosin HCl (Flomax) 0.4 Mg Cap, 0.4 MG PO DAILY, (Reported) Scheduled PRN Carisoprodol (Soma) 350 Mg Tab, 350 MG PO TIDP PRN for MUSCLE SPASMS, (Reported) Oxycodone Hcl (Oxycodone HCl) 15 Mg Tablet, 15 MG PO QID PRN for PAIN LEVEL 5- 10, (Reported) Allergies Coded Allergies: No Known Allergies (Unverified , 05/29/16) Past Medical History Medical History Metastatic prostatic cancer with obstructive uropathy self cath has History of jaw necrosis status post Lupron Severe bilateral shoulder arthritis and degenerative disc disease Chronic low back pain Hyperlipidemia Testicular hypo function Pathologic L3 and L4 fracture. Surgical History Right nephrostomy tube placement LEFT WRIST SURGERY 30 YEARS AGO ORAL SURGERY 04/2019 RT ELBOW-ULNAR NERVE REPAIR 2019 Family History Significant Family History: Cancer Social History * Smoker: quit greater than 1 year A-FIB/CHADSVASC A-FIB History Current/History of A-Fib/PAF?: No Review of Systems Constitutional: Reports: Weakness, Fatigue; Denies: Chills, Fever, Night Sweats Eyes: Denies: Pain, Vision change ENT: Denies: Head Aches, Ear Pain, Dysphagia Skin: Denies: Rash, Lesions, Breakdown Pulmonary: Denies: Dyspnea, Cough Cardiovascular: Denies: Chest Pain, Palpitations, Orthopnea, Paroxysmal Noc. Dyspnea, Lt Headedness Gastrointestinal: Reports: Abdominal Pain, Constipation Genitourinary: Reports: Retention, Other Symptoms; Denies: Dysuria, Frequency, Incontinence Hematologic: Denies: Bruising, Bleeding Excessively Musculoskeletal: Reports: Back Pain; Denies: Neck Pain, Joint Pain, Muscle Pain, Spasms Physical Examination General Exam: Positive: Alert, Cooperative, No Acute Distress, Other Eye Exam: Positive: PERRLA, Conjunctiva & lids normal, EOMI; Negative: Sclera icteric Neck Exam: Positive: Supple; Negative: JVD, thyromegaly Chest Exam: Positive: Clear to auscultation, Normal air movement Heart Exam: Positive: Rate Normal, Regular Rhythm, Normal S1, Normal S2; Negative: Murmurs, Rubs Abdomen Exam: Positive: Normal bowel sounds, Soft; Negative: Tenderness Extremity Exam: Positive: Normal pulses; Negative: Clubbing, Cyanosis, Edema Neuro Exam: Positive: Normal Speech, Strength at 5/5 X4 ext, Normal Tone Vital Signs Vital Signs Date Time Temp Pulse Resp B/P (MAP) Pulse Ox O2 Delivery O2 Flow Rate FiO2 02/04/21 13:41 88 22 90/59 (69) 96 02/04/21 11:58 97.8 Room Air Laboratory Data Labs 24H Laboratory Tests 2 02/04/21 12:29: Neutrophils (%) (Auto) , Nucleated Red Blood Cells % (auto) 0.0, Neutrophils 90H, Lymphocytes (Manual) 4L, Monocytes (Manual) 6H, Anisocytosis 1+, Platelet Estimate NORMAL, Anion Gap 12, Glomerular Filtration Rate > 60.0, Calcium Level 12.5H 02/04/21 12:31: POC Glucose (Misc Panel) 135H, POC Sodium (Misc Panel) 128L, POC Potassium (Misc Panel) 3.2L, POC Chloride (Misc Panel) 91L, POC Total CO2 (Misc Panel) 27.0, POC Blood Urea Nitrogen (Misc Panel 12, POC Ionized Calcium (Misc Panel) 6.8H, POC Creatinine (Misc Panel) 1.0, POC Hematocrit (Misc Panel) 27.0L CBC/BMP Laboratory Tests 02/04/21 12:29 Assessment/Plan 60-year-old with 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 Patient was recently admitted at [facility] from 01/11/21 to 01/18/21 for metabolic encephalopathy, UTI, hypercalcemia and right hydronephrosis. CT abd and pelvis at outside hospital in dec 2020 showed large bladder mass, bulky regional lymphadenopathy causing nodularity of right ureter, proximal right ureteric large mass and bilateral hydronephrosis. Last chemotherapy was 2 weeks ago and last RT was 1-1/2 weeks ago. Patient was discharged with calcitonin nasal spray but pharmacies in [place] did not have it any more . The last day of calcitonin was on 01/31/21. Patient also c omplaining of generalized pain, weakness, constipation, abdominal discomfort. He is still confused but family at bed side says much better than last night. His abdominal discomfort is described as his whole abdomen feeling very hot and tinglingly and then cold. He does not really vocalize any definite pain. He does say he is constipated. Family says that he has been having difficulty in self catheterizations. His blood pressure mildly low at 90/60. Labs significant for hypercalcemia of 12.5, Hb 8.9, K of 3.4, Na of 131. Patient was admitted for Hypercalcemia and metabolic encephalopathy. Hypercalcemia will give NS and start on calcitonin will discuss with oncology if we can give bisphosphonate with the h/o jaw osteonecrosis. Acute Metabolic encephalopathy worse at night. likely due to chronic disease rule out infection will get UA and urine culture, blood culture, CXR. Chronic anemia due to anemia of chronic disease, folic acid def and iron def Hb is at baseline will continue with folate, iron. Obstructive uropathy with right hydronephrosis, left hydro has right nephrostomy tube and seft catheterizes Prostate cancer with mets to bone has large bladder mass, and right proximal ureteral mass with bulky lymphadenopathy Got RT to prostate and getting Chemo. Plan / VTE VTE Prophylaxis Ordered?: Yes Hortencia Russo MD Feb 04, 2021 14:17
[2021-02-04] MEDS ORDERED: MIRALAX *UNIT DOSE* 17GM PACKET PO ONE (18:00)
--- NOTE | 2021-02-04 18:27 | REP ---
INDICATION: confusion / pna COMPARISON: None. TECHNIQUE: Portable AP view of the chest FINDINGS: The mediastinum and cardiac silhouette are stable and within normal limits for portable technique. Iwctbm-H-Rjws again identified with tip in the SVC. Lung solomon demonstrate chronic appearing changes. Subtle superimposed left lower lobe airspace disease cannot be excluded. No effusion. No pneumothorax. Skeletal structures are intact. IMPRESSION: Chronic stable changes. Cannot exclude subtle left lower lobe airspace disease. <Electronically signed by Taj Funez > 02/04/21 [id number]
[2021-02-04] MEDS: BISACODYL 10 MG SUPP PR SCH (21:00)
[2021-02-04] MEDS: CALCITONIN SALMON (MIACALCIN) 400INTERNATIONAL UNITS/2ML INJ (J0630) SQ SCH (21:27)
[2021-02-05] MEDS: NS 1,000 ML IV SCH ×2 (00:05→10:07)
[2021-02-05 02:08] VITALS: BP 112/73
[2021-02-05] MEDS: CALCITONIN SALMON (MIACALCIN) 400INTERNATIONAL UNITS/2ML INJ (J0630) SQ SCH (05:56)
--- NOTE | 2021-02-05 06:17 | ECGEPIP ---
[facility] - ED Test Date: 2021-02-04 Pat Name: LAURY LEDEZMA Department: Room: [place] [address] Gender: Male [employer]: KAT : 1960 Requested By: SIMONA Carreon Order Number: [id number] Reading MD: Drew Henley Measurements Intervals [place] Rate: 102 P: 6 WV: 170 QRS: -17 QRSD: 92 T: 0 QT: 334 QTc: 435 Interpretive Statements Sinus tachycardia Nonspecific ST-T wave abnormalities Similar to tracing done 11-08-20 Electronically Signed on 02-05-2021 6:17:08 EDT by Drew Henley
[2021-02-05 08:00] VITALS: BP 98/63
[2021-02-05] MEDS ORDERED: ENOXAPARIN 40MG/0.4ML SYRINGE (J1650 PER 10MG) SC SCH (09:00)
[2021-02-05] MEDS ORDERED: TAMSULOSIN 0.4 MG CAP PO SCH (09:00)
[2021-02-05] MEDS: BISACODYL 10 MG SUPP PR SCH (09:00)
[2021-02-05] MEDS ORDERED: FOLIC ACID 1 MG TAB PO SCH (09:00)
[2021-02-05] MEDS ORDERED: POTASSIUM CHLORIDE 10MEQ SR TABLET PO SCH (09:00)
[2021-02-05] MEDS ORDERED: MIRALAX *UNIT DOSE* 17GM PACKET PO SCH (09:00)
[2021-02-05 10:00] LABS: BASO % 0.2 % (0.0-1.0); EOS % 0.2 % (0.0-3.0); HEMATOCRIT 27.1 % (42.0-52.0); HEMOGLOBIN 8.8 g/dl (13.5-17.5); LYMPH # 1.2 10^3/uL (1.5-5.0); MEAN CORPUSCULAR HEMOGLOBIN 28.2 pg (27.0-33.0); MEAN CORPUSCULAR HGB CONC 32.5 g/dl (32.0-36.5); MEAN CORPUSCULAR VOLUME 86.9 fl (80.0-96.0); MONO # 0.7 10^3/uL (0.0-0.8); NEUTROPHILS # 10.9 10^3/uL (1.5-8.5); NEUTROPHILS % 84.4 % (36.0-66.0); PLATELET COUNT, AUTOMATED 380 10^3/uL (150-450); RED BLOOD COUNT 3.12 10^6/uL (4.30-6.10); WHITE BLOOD COUNT 12.9 10^3/uL (4.0-10.0)
[2021-02-05 10:26] LABS: BLOOD UREA NITROGEN 10 MG/DL (7-18); CALCIUM LEVEL 11.4 MG/DL (8.8-10.2); CARBON DIOXIDE LEVEL 28 MEQ/L (21-32); CHLORIDE LEVEL 99 MEQ/L (98-107); GLOMERULAR FILTRATION RATE > 60.0 (>49); GLUCOSE, FASTING 122 MG/DL (70-100); MAGNESIUM LEVEL 1.6 MG/DL (1.8-2.4); POTASSIUM SERUM 3.8 MEQ/L (3.5-5.1); SODIUM LEVEL 133 MEQ/L (136-145)
[2021-02-05 12:00] VITALS: BP 108/74
[2021-02-05] MEDS ORDERED: MAG SULF 1GM/100ML (MAG RUN) 1 GM in IV 1 EA IV ONE (12:25)
[2021-02-05] MEDS ORDERED: MAGNESIUM OXIDE 400MG TAB (MAG-OX) PO ONE (12:45)
[2021-02-05 16:00] VITALS: BP 113/81
[2021-02-05] MEDS ORDERED: CALCITONIN SALMON (MIACALCIN) 400INTERNATIONAL UNITS/2ML INJ (J0630) SQ SCH (16:00)
[2021-02-05] MEDS ORDERED: MIRA1POW3 PO (16:20)
--- NOTE | 2021-02-05 22:18 | DS.PDOC ---
Discharge Summary General Date of Admission Feb 04, 2021 at 14:01 Date of Discharge 02/05/21 Discharge Summary PROCEDURES PERFORMED DURING STAY: [None]. DISCHARGE DIAGNOSES: Hypercalcemia Acute Metabolic Encephalopathy Metastatic prostate cancer with Bladder mass, right proximal ureteric mass Obstructive uropathy with right hydronephrosis s/p right nephrostomy tube Self catheterization. 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 COMPLICATIONS/CHIEF COMPLAINT: Hypercalcemia, Metastatic Cancer. HOSPITAL COURSE: 60-year-old with 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 Patient was recently admitted at [facility] from 01/11/21 to 01/18/21 for metabolic encephalopathy, UTI, hypercalcemia and right hydronephrosis. CT abd and pelvis at outside hospital in dec 2020 showed large bladder mass, bulky regional lymphadenopathy causing nodularity of right ureter, proximal right ureteric large mass and bilateral hydronephrosis. Last chemotherapy was 2 weeks ago and last RT was 1-1/2 weeks ago. Patient was discharged with calcitonin nasal spray but pharmacies in [place] did not have it any more . The last day of calcitonin was on 01/31/21. Patient also complaining of generalized pain, weakness, constipation, abdominal discomfort. He is still confused but family at bed side says much better than last night. His abdominal discomfort is described as his whole abdomen feeling very hot and tinglingly and then cold. He does not really vocalize any definite pain. He does say he is constipated. Family says that he has been having difficulty in self catheterizations. His blood pressure mildly low at 90/60. Labs significant for hypercalcemia of 12.5, Hb 8.9, K of 3.4, Na of 131. Patient was admitted for Hypercalcemia and metabolic encephalopathy. Hypercalcemia continue calcitonin nasal spray. Discussed with [facility] oncology cannot give bisphosphonate due to the h/o jaw osteonecrosis. Acute Metabolic encephalopathy worse at night. likely due to chronic disease, hypercalcemia blood cultures negative till date. CXR no acute disease No urinary complaints at present. Chronic anemia due to anemia of chronic disease, folic acid def and iron def Hb is at baseline will continue with folate, iron. Obstructive uropathy with right hydronephrosis, left hydro has right nephrostomy tube and self catheterizes Prostate cancer with mets to bone has large bladder mass, and right proximal ureteral mass with bulky lymphadenopathy Got RT to prostate and getting Chemo. Discussed with [facility] oncology. As per them they will be holding further therapy at present due to patient's poor physical condition. Patient has been referred to palliative care. DISCHARGE MEDICATIONS: Please see below. ALLERGIES: Please see below. PHYSICAL EXAMINATION ON DISCHARGE: VITAL SIGNS: Please see below. General Exam: Positive: Alert, Cooperative, No Acute Distress, Other Eye Exam: Positive: PERRLA, Conjunctiva & lids normal, EOMI; Negative: Sclera icteric Neck Exam: Positive: Supple; Negative: JVD, thyromegaly Chest Exam: Positive: Clear to auscultation, Normal air movement Heart Exam: Positive: Rate Normal, Regular Rhythm, Normal S1, Normal S2; Negative: Murmurs, Rubs Abdomen Exam: Positive: Normal bowel sounds, Soft; Negative: Tenderness Extremity Exam: Positive: Normal pulses; Negative: Clubbing, Cyanosis, Edema Neuro Exam: Positive: Normal Speech, Strength at 5/5 X4 ext, Normal Tone LABORATORY DATA: Please see below. PROGNOSIS: Poor ACTIVITY: [As tolerated]. DIET: As tolerated DISPOSITION: 07 Against Medical Advice. DISCHARGE INSTRUCTIONS: Follow up with [facility] Oncology in 1 week PMD in 1 week DISCHARGE CONDITION: [Stable]. TIME SPENT ON DISCHARGE: 35 minutes. Vital Signs/I&Os Vital Signs Date Time Temp Pulse Resp B/P (MAP) Pulse Ox O2 Delivery O2 Flow Rate FiO2 02/05/21 16:00 97.8 101 20 113/81 (92) 95 Room Air I&O- Last 24 Hours up to 6 AM 02/05/21 07:00 Intake Total 1100 ml Output Total 1800 ml Balance -700 ml Laboratory Data Labs 24H Laboratory Tests 2 02/05/21 09:50: Immature Granulocyte % (Auto) 1.2, Neutrophils (%) (Auto) 84.4H, Lymphocytes (%) (Auto) 9.0L, Monocytes (%) (Auto) 5.0, Eosinophils (%) (Auto) 0.2, Basophils (%) (Auto) 0.2, Neutrophils # (Auto) 10.9H, Lymphocytes # (Auto) 1.2L, Monocytes # (Auto) 0.7, Eosinophils # (Auto) 0.0, Basophils # (Auto) 0.0, Nucleated Red Blood Cells % (auto) 0.0, Anion Gap 6L, Glomerular Filtration Rate > 60.0, Calcium Level 11.4H, Magnesium Level 1.6L CBC/BMP Laboratory Tests 02/05/21 09:50 Microbiology Microbiology 02/04/21 Blood Culture - Preliminary, Resulted No growth after 24 hours . All specim... 02/04/21 Blood Culture - Preliminary, Resulted No growth after 24 hours . All specim... Discharge Medications Scheduled Aspirin (Aspirin EC) 81 Mg Tablet.dr, 81 MG PO DAILY, (Reported) Calcitonin,Willard,Synthetic (Calcitonin-Willard) 3.7 Ml [place].pump, 1 SPRAY NARES DAILY, (Reported) Ferrous Gluconate (Ferrous Gluconate) 324 Mg Tablet, 324 MG PO Q2D, (Reported) Folic Acid (Folic Acid) 1 Mg Tablet, 1 MG PO DAILY, (Reported) Potassium Chloride (Klor-Con M10) 10 Meq Tab.er.prt, 40 MEQ PO DAILY, (Reported) Tamsulosin HCl (Flomax) 0.4 Mg Cap, 0.4 MG PO DAILY, (Reported) Scheduled PRN Oxycodone Hcl (Oxycodone HCl) 15 Mg Tablet, 15 MG PO QID PRN for PAIN LEVEL 5- 10, (Reported) Polyethylene Glycol 3350 (Miralax) 17 Gm Powd.pack, 1 PKT PO DAILYPRN PRN for CONSTIPATION Allergies Coded Allergies: No Known Allergies (Unverified , 05/29/16) Hortencia Russo MD Feb 05, 2021 22:18
[2021-02-06] MEDS ORDERED: FERROUS GLUCONATE 324 MG TAB PO SCH (09:00)
== END 2021-02-05 17:18 | disposition left against medical advice (07) | DRG 425 ==
LOC: M ED 11:49 → M ED INP 14:01 → ENRESERV 02-05 01:15 → M PCU 02-05 02:05
PROVIDERS: ADMIT Internal Medicine Nephrology; ATTEND Internal Medicine Nephrology
DX: E83.52 Hypercalcemia (principal); G93.41 Metabolic encephalopathy; C79.51 Secondary malignant neoplasm of bone; C79.31 Secondary malignant neoplasm of brain; N13.30 Unspecified hydronephrosis; C61 Malignant neoplasm of prostate; D63.0 Anemia in neoplastic disease; N13.9 Obstructive and reflux uropathy, unspecified; M19.012 Primary osteoarthritis, left shoulder; M19.011 Primary osteoarthritis, right shoulder; K59.00 Constipation, unspecified; Z96.0 Presence of urogenital implants; Z79.82 Long term (current) use of aspirin; Z79.899 Other long term (current) drug therapy; Z87.891 Personal history of nicotine dependence

== ENCOUNTER 2021-02-16 11:18 | Inpatient (IN) | payer OTHER ==
[~2021-02-16] VITALS: Ht 172.7 cm; Wt 70.9 kg
[2021-02-16] MEDS: ENOXAPARIN 40MG/0.4ML SYRINGE (J1650 PER 10MG) SC SCH (09:00)
[~2021-02-16 11:18] MED LIST changes: +ASPI81TA26 PO; +CALC200S NARES; +CALCITONIN NASAL SPRAY 3.7 ML BTL SCH; +FERR32TA PO; +FOLI1TAB11 PO; +MIRA1POW3 PO; +OXYC-1 PO; +POTA-136 PO
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
--- OUTSIDE RECORDS SUMMARY | 2021-02-16 11:24 | CCD ---
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 Act dunia confirmed 46809390 Problem Situational depression F43.21 Active confirmed 49105365 Problem Neuropathy G62.9 Active confirmed 338770712 Problem Essential hypertension I10 Active confirmed 22846798 Problem 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 Active confirmed 461204819 Problem Psoriasis L40.9 Active confirmed 3173159 Problem 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 Active confirmed 485472373 Problem Chronic fatigue R53.82 Active confirmed 5270 2003 Problem Major osseous defect, other site M89.78 Active conf irmed 88764372 Problem Cancer related pain G89.3 Active confirmed 075886967 Problem Obstructive uropathy N13.9 Active confirmed 6962629 Problem Carpal tunnel syndrome of right wrist G56.01 Ac tive confirmed 186300418076640 Problem Carpal tunnel syndrome of left wrist G56.02 Act dunia confirmed 047807608925152 Problem 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 Active confirmed 064772169 ALLERGIES No Known Allergies ENCOUNTERS from 1960 to 2021-02-14 Encounter Location Date Provider Diagnosis [facility] Resident [address] [facility] [address] [phone] [place] [address] Jan, Mann Hawkins IMMUNIZATIONS No Information SOCIAL [...] 30 days Unknown May Have - 14 Maltese straight catheter z85.46 intraurethral 10x/Day for 30 [...] Information RESULTS No Results REASON FOR VISIT no showed MEDICAL (GENERAL) HISTORY Type Description Date Medical [...] Information ASSESSMENTS No Information PLAN OF TREATMENT No Information Insurance Providers Payer Name Payer Address Payer Phone Insured Name Patient Relati onship to Insured Coverage Start Date Coverage End Date [facility] [employer] [facility] [address] [facility] [phone] LAURY LEDEZMA self
--- OUTSIDE RECORDS SUMMARY | 2021-02-16 11:25 | CCD | Summary of Care ---
Author Author [facility] Organization [facility] Address Unknown Phone Unavailable Care Team Providers Care Digital Commentator Name Role Phone Fabian Infante MD PCP Reason for Referral * Consultation (Routine) Referred By Contact Referred To Contact Status Reason Specialty Diagnoses / Procedures Ashley Torres MD [address] [place] [address] Email: [email or web address] [address] [facility], [address] [place] [phone] [facility] Dental General Diagnoses Required Practice / Osteonecrosis of Dentistry jaw Electronically signed by Vin Escobar MD at * Consultation (Routine) Referred By Contact Referred To Contact Status Reason Specialty Diagnoses / Procedures Ashley Torres MD [address] [place] [address] Email: [email or web address] Urology Diagnoses Required Malignant tumor of prostate Electronically signed by Vin Escobar MD at * Home Health Care (Routine) Referred By Contact Referred To Contact Status Reason Specialty Diagnoses / Procedures Lalo Thacker MBBS [address] [place] [address] Email: [email or web address] Home Health Diagnoses Required Services Pain due to neoplasm Prostate cancer metastatic to bone Electronically signed by Vin Escobar MD at Reason for Visit * Auth/Cert Referred By Contact Referred To Contact Status Reason Specialty Diagnoses / Procedures Diagnoses UTI (urinary tract infection) failure to thrive, confusion, possible sepsis Encounter Details Care Team Description Date Type Department Debbi Amaro MD [address], [place] [id number] Vin Escobar MD [address] [place] [address] [phone] Malignant tumor of prostate (Primary Dx) ; Pain due to neoplasm; Prostate cancer metastatic to bone; Osteonecrosis of jaw 01/11/2021 [facility] HEMATOLOGY ONCO LOGY - Encounter 01/17/[address] [place] [phone] Allergies No Known Active Allergiesdocumented as of this encounter (statuses as of 01/17/2021) Medications End Date Status Medication Sig Dispensed Refills Start Date Active aspirin 81 MG tablet Take 81 mg by 0 mouth daily Active carisoprodol (SOMA) 350 Take 350 mg 0 MG tablet by mouth Four times daily as needed for Muscle spasms. Active tamsulosin HCl (FLOMAX) Take 0.4 mg 0 0.4 MG CAPS by mouth daily. Active ondansetron (ZOFRAN) 8 MG Take 1 tablet 20 tablet 5 tabletIndications: by mouth 6 Prostate cancer every 8 metastatic to bone (eight) hours as needed for Nausea or Vomiting. Active SYRINGE/NEEDLE, DISP, 1 Use as 25 each 6 ML 26G X 5/8" 1 ML MISC directed. 8 Urology Kit 1 Active Multiple Take by mouth 0 Vitamins-Minerals (CERTAVITE/ANTIOXIDANTS) TABS Active gabapentin (NEURONTIN) Take 1 180 capsule 3 300 MG capsule capsule by 8 mouth Three times daily Take 2 caps tid 600 mg per dose Active fluocinolone (SYNALAR) APPLY TO 2 01 0.025 % ointment PSORIATIC 8 PLAQUES ON ELBOWS ONCE DAILY Active clobetasol (TEMOVATE) Apply 30 g 5 0.05 % ointment topically Two 9 Times Daily Active dronabinol (MARINOL) 10 TAKE ONE 0 MG capsule CAPSULE BY 9 MOUTH TWO TIMES A DAY MAXIMUM DAILY DOSE 2 Active chlorhexidine (PERIDEX) 0 0.12 % solution 9 Active Syringe/Needle (Disp) 26G Use as 25 each 6 X 5/8" 1 MLIndications: directed. 0 Impotence Urology kit 1 Active Xtandi 40 MG Oral Capsule TAKE 4 120 capsule 5 (Enzalutamide)Indications CAPSULES BY 1 : Primary prostate MOUTH EVERY adenocarcinoma DAY Additional Information Patient not taking. Reported on 12/28/2020 Active Prochlorperazine Maleate Take 1 tablet 30 tablet 1 10 MG Oral Tablet by mouth 1 (COMPAZINE)Indications: every 6 (six) Prostate cancer hours as metastatic to bone needed (Nausea/Vomit ing) Active Ondansetron HCl 8 MG Oral Take 1 tablet 20 tablet 1 Tablet by mouth 1 (ZOFRAN)Indications: every 8 Prostate cancer (eight) hours metastatic to bone as needed for Nausea or Vomiting Active Self-Cath Coude Tip Use as 8 each 6 directed. 1 DAILY Active Lupron Depot (3-Month) Inject 22.5 0 22.5 MG Intramuscular Kit mg into the (leuprolide acetate) muscle every 3 (three) months Active oxyCODONE HCl 15 MG Oral Take 1 tablet 180 tablet 0 Tablet by mouth 1 (ROXICODONE)Indications: every 4 Chronic Pain (four) hours as needed for PainCancer related pain, Max Daily Dose: 90 mg Indications: Chronic Pain Active PEG 3350 17 GM/SCOOP Oral Take 17 g by 510 g 5 Powder mouth daily 1 (MIRALAX)Indications: Drug-induced constipation 12/13/2021 Active Senna-Docusate Sodium Take 1 tablet 30 tablet 11 8.6-50 MG Oral Tablet by mouth 1 (SENOKOT-S)Indications: daily Drug-induced constipation Active SM Senna Laxative 8.6 MG Take 1 tablet 0 12/14 Oral Tablet by mouth 1 daily 01/17/2022 Active Folic Acid 1 MG Oral Take 1 tablet 30 tablet 3 Tablet (FOLVITE) by mouth 1 daily 02/16/2021 Active Ferrous Gluconate 324 (38 Take 1 tablet 15 tablet 2 Fe) MG Oral Tablet by mouth 1 (FERGON) every other day 01/24/2021 Active Calcitonin ([place]) 200 1 spray by 1 mL 0 UNIT/ACT Nasal Solution Nasal route 1 (MIACALCIN) daily for 7 days 01/17/2021 Discontinued (Stop Taking at Discharge) calcium carbonate Take 600 mg 0 (OS-EDWIN) 600 MG TABS by mouth daily 01/17/2021 Discontinued (Reorder) Calcitonin ([place]) 200 Inject 1 mL 7 mL 0 UNIT/ML Injection into the skin 1 Solution (MIACALCIN) daily for 7 days 01/17/2021 Discontinued (Stop Taking at Discharge) Calcitonin ([place]) 200 Inject 1 mL 7 mL 0 UNIT/ML Injection into the skin 1 Solution (MIACALCIN) daily for 7 days 01/17/2021 Discontinued (Reorder) Calcitonin ([place]) 200 1 spray by 1 mL 0 UNIT/ACT Nasal Solution Nasal route 1 (MIACALCIN) daily for 7 days documented as of this encounter (statuses as of 01/17/2021) Active Problems Problem Noted Date UTI (urinary tract infection) 01/11/2021 Carpal tunnel syndrome of right wrist 12/22/2020 Chronic fatigue syndrome 12/22/2020 Essential hypertension 12/22/2020 Neuropathy 12/22/2020 Obstructive uropathy 12/22/2020 Osteonecrosis of jaw 12/22/2020 Psoriasis 12/22/2020 Reactive depression (situational) 12/22/2020 Pain due to neoplasm 12/22/2020 Malignant tumor of prostate 12/22/2020 Secondary malignant neoplasm of bone 12/22/2020 Lesion of ulnar nerve 12/22/2020 Gross hematuria 12/01/2020 Ulnar neuropathy at elbow of right upper extremity 0 10/01/2017 Overview: Formatting of this note might be differ ent from the original. Added automatically from request for mary bowling [id number] Cervical spondylosis 09/14/2017 Numbness of right hand 09/14/2017 Cervical spinal stenosis 09/14/2017 Erectile dysfunction 08/01/2017 Cancer related pain 11/29/2016 Overview: Formatting of this note might be differ ent from the original. Significant worsening pain right should er with numbness last 2 fingers. Placed order for Interventional pain. W ill likely need MRI, known with thoracic mets. Adding NSAIDS for a trial (12/27/2016) 01/03/18 no changes, pain has stabilized, using 4-5 doses 10 mg Oxy/ 24 h, gabapentin 600 mg/daily 02/05/2018- no changes, refilled Oxycod one 10 mg po q 4h prn MDD 60 mg/day. Laxative important daily. Palliative care by specialist 06/07/2016 Overview: Formatting of this note might be differ ent from the original. Had first visit today. No uncontrolled symptoms today. Discussed HCP form. 10/04- had third visit. Pain appears reas onably controlled. Has HCP form on file, on Xofigo, PSA trending down, mil d leukopenia. 10/23/2018 PSA down to 0.4, upper back p ain worsening, looking for interventional pain help, first in [facility] area L ast Assessment & Plan: Formatting of this note might be differ ent from the original. Pain controlled on actual. Weight gain of concern. Executed HCP form. 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 Never 01/11/2021 How many drinks containing alcohol do you have on No t asked a typical day when you are drinking? How often do you have six or more drinks on one Never 01/11/2021 occasion? Social Isolation Answer Date Recorded In a typical week, how many times do you talk on More than three times a week 01/11/2021 the phone with family, friends, or neig hbors? How often do you get together with friends or More than th ree times a week 01/11/2021 relatives? How often do you attend oriental orthodox or pentecostalism Never 01/11/2021 services? Do you belong to any clubs or organizations such No 01/11/2021 as oriental orthodox groups, unions, fraternal or athletic groups, or school groups? How often do you attend meetings of the clubs or Never 01/11/2021 organizations you belong to? Are you now , , , , 01/11/2021 never or living with a partner? Physical Activity Answer Date Recorded On average, how many days per week do you engage 0 days 01/11/2021 in moderate to strenuous exercise (like walking fast, running, jogging, dancing, swimmi ng, biking, or other activities that cause a light or heavy sweat)? On average, how many minutes do you engage in 0 min 01/11/2021 exercise at this level? Stress Answer Date Recorded Do you feel stress - tense, restless, nervous, or Only a l ittle 01/11/2021 anxious, or unable to sleep at night be cause your mind is troubled all the time - these d ays? Financial Resource Strain Answer Date Recorde d How hard is it for you to pay for the very basics Not hard at all 01/11/2021 like food, housing, medical care, and h eating? Intimate Partner Violence Answer Date Recorde d Within the last year, have you been afraid of your No 01/11/2021 partner or ex-partner? Within the last year, have you been humiliated or No 01/11/2021 emotionally abused in other ways by you r partner or ex-partner? Within the last year, have you been kicked, hit, No 01/11/2021 slapped, or otherwise physically hurt b y your partner or ex-partner? Within the last year, have you been raped or No 01/11/2021 forced to have any kind of sexual activ ity by your partner or ex-partner? Food Insecurity Answer Date Recorded Within the past 12 months, you worried that your Never chrissie e 01/11/2021 food would run out before you got money to buy more. Within the past 12 months, the food you bought Never true 01/11/2021 just didn't last and you didn't have mo tonny to get more. Transportation Needs Answer Date Recorded In the past 12 months, has lack of transportation No 01/11/2021 kept you from medical appointments or f rom getting medications? In the past 12 months, has lack of transportation No 01/11/2021 kept you from meetings, work, or gettin g things needed for daily living? Sex Assigned at Date Recorded Male 09/04/2017 10:36 AM EDT Date Recorded COVID-19 Exposure Response 01/11/2021 9:53 AM EDT In the last month, have you been in contact with No / Unsure someone who was confirmed or suspected to have Coronavirus / COVID-19? documented as of this encounter Last Filed Vital Signs Reading Time Taken Comments Vital Sign 157/90 01/17/2021 8:05 AM EDT Blood Pressure 72 01/17/2021 8:05 AM EDT Pulse 36.7 C (98.1 F) 01/17/2021 8:05 AM EDT Temperature 17 01/17/2021 8:05 AM EDT Respiratory Rate 96% 01/17/2021 8:05 AM EDT Oxygen Saturation - - Inhaled Oxygen Concentration - - Weight - - Height - - Body Mass Index documented in this encounter Discharge Summaries * Ashley Torres MD - 01/17/2021 12:34 PM EDT Images from the original note were not included. Discharge Summary Patient Louis Mccann Admit Date 01/11/2021 1960 Discharge Date PCP Fabian Infatne MD Discharge Physician Vin Escobar MD Primary Discharge Diagnosis: UTI (urinary tract infection) Secondary Discharge Diagnosis: UTI (urinary tract infection) History & Hospital Course Reason for Admission: Altered mental status Brief history and Hospital Course: As per HPI: "Mr. Louis Mccann is a 60 y.o. male with a past medical history of metasta tic prostate cancer to bone s/p Casodex, Taxotere and Lupron, hypertension, hype rlipidemia presented to the cancer Center for chemotherapy, but was found to be altered and was direct admitted to medicine. Major of the history was obtained from patient's son who was at bedside. He men tioned that his father has been more confused lately, they contacted his primary , who recommended to go to [facility], but patient refused at the time. Today he was supposed to get his regular chemo at cancer center, where he was fo und to be confused, altered. His chemotherapy was deferred at this time suspect ing an infection. At the time, pain hemodynamically stable albeit mild tachycardia. Pulmonary lab s showed leukocytosis of 19.4 (neutrophil predominance), platelets of 438, BMP w as significant for hypercalcemia of 14, creatinine 1.25 (baseline~0.8), bicarb o f 19, anion gap of 25, lactic acid 1.4 and glucose 118. Procalcitonin was eleva lissa to 24.13, UA was significant for UTI, cultures were sent. Blood cultures we re sent and patient was started on Zosyn and 1 L NS bolus was given. He was als o given to 288 units of calcitonin for hypercalcemia and started on 100 mL/h NS. EKG WNL." Under my care: Patient was initially encephalopathic he was found to have U urine cultures were negative but blood cultures were positive for the Veillonella species. Patient received 7 days of Zosyn and his mentation improved. As per ID, patient does n ot need any further antibiotics on discharge. Patient underwent an ultrasound o f his abdomen which showed a right-sided hydronephrosis. IR was consulted and t his patient is s/p right nephrostomy tube. Urology was consulted and they want to follow the patient outpatient as well. MRI of the brain was done which was n egative for any infarction. Repeat blood cultures were negative after 7-day cou rse of antibiotics. Regarding patient's hypercalcemia, patient received 5 doses of calcitonin almost daily and continued with IV fluids at 150 cc/h. Patient's calcium on the day of discharge is 9.3. Regarding patient's metastatic prostate cancer, radiation oncology was consulted and patient underwent CT simulation s can. He is s/p 3 doses of radiation to his prostate. Given his poor dentition dental was also consulted and patient is not a candidate for any surgical interv ention as per them. He is to follow-up with dental outpatient. Patient was als o found to be anemic with a hemoglobin of 9. Anemia work-up revealed folic acid less than 2 and he was subsequently started on folic acid. Patient also has ir on deficiency/anemia of chronic disease and he is being discharged on iron table ts not that his bacteremia has resolved. At the time of discharge, patient is hemodynamically stable. He is AAO x3 and h is confusion has resolved. He is to follow-up with Dr. Peralta on 01/18/2021 fo r his oncological needs. He also needs to follow-up with radiation oncology for his ongoing radiation treatments. Given his nephrostomy tube on the right side, patient is to follow-up with urology on discharge as well. Given hypercalcemia, patient requires calcitonin. He is getting discharged on 200 units daily intr anasal spray daily for 1 week and he is to follow-up with his oncologist and PCP and get repeat calcium levels drawn to determine if he needs to continue with c alcitonin and for how long. He needs to have weekly follow-up to calcium levels . Consults: Dental, ID, radiation oncology, urology Relevant studies done during this hospitalization: CT Abdomen Pelvis without Contrast Transport Method: Wheelchair Result Date: 01/14/2021 PROCEDURE INFORMATION: Exam: CT Abdomen And Pelvis Without Contrast Exam date an d time: 01/12/2021 7:20 PM Age: 60 years old Clinical indication: Other: Hydronep hrosis TECHNIQUE: Imaging protocol: Computed tomography of the abdomen and pelvi s without contrast. Radiation optimization: All CT scans at this facility use at least one of these dose optimization techniques: automated exposure control; mA and/or kV adjustment per patient size (includes targeted exams where dose is ma tched to clinical indication); or iterative reconstruction. COMPARISON: CT ABD P COLE W/O CONTRAST 11/08/2020 8:53 PM FINDINGS: Lungs: There is small area atelec tasis peripherally left lower lobe. There is some mild linear atelectasis within right lower lobe, left lower lobe, lingula and right middle lobe. Pleural space s: There is very small left, trace right pleural effusion. Liver: Normal. No mas s. Gallbladder and bile ducts: Normal. No calcified stones. No ductal dilation. Pancreas: Normal. No ductal dilation. Spleen: Normal. No splenomegaly. Adrenal g lands: There is stable left adrenal gland adenoma measures approximately 11 mm. Kidneys and ureters: There is retained contrast within both kidneys, ureters and bladder from earlier study. There is right hydronephrosis. There is a masslike wall thickening of the proximal right ureter. Adjacent nodularity along the cour se of the right ureter is most consistent with bulky lymphadenopathy. There is l eft hydronephrosis. Both ureters are significantly narrowed by masslike thickeni ng of the bladder. Very limited evaluation of the bladder due to nondistention. Stomach and bowel: There is diverticulosis of the colon without evidence of dive rticulitis. No dilation.There is no evidence of intestinal obstruction. Appendix : No evidence of appendicitis. Intraperitoneal space: Unremarkable. No free air. No significant fluid collection. Vasculature: There are coronary arterial calci fications. Lymph nodes: There is pelvic sidewall and pericaval lymphadenopathy. Urinary bladder: There is a Manzano catheter in the bladder. See above. Large bl adder mass difficult to measure accurately. Reproductive: Unremarkable as visual ized. 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 There is chronic L5 spondylolysis with grade 1 anterolisthesis. There is interval increa sed lytic skeletal metastasis now with a mild chronic compression of L5 with mil d loss of height. There is also interval increasing size of some of the lytic le sions subtly present on the earlier exam. There is pathologic fracture of the in ferior endplate of L3 with no significant loss of height. No retropulsed bone fr agment. Soft tissues: There are small fat containing inguinal hernias. IMPRESSIO N: 1. Contrast from an earlier study limits the exam. There is however large mas s lesion of the right proximal ureter difficult to measure accurately. This is c ontributing to a mild right hydronephrosis. The mass is likely invading into the right renal pelvis which also demonstrates thickening and is consistent with ne oplasm. Bulky regional lymphadenopathy most pronounced along the course of the r ight ureter. 2. Large bladder mass obscured by nondistended bladder consistent w ith malignancy and is consistent with a primary malignancy. Thickening of the bl adder base bilaterally is contributing to bilateral hydronephrosis which is also mild on the left. 3. There is blastic and lytic skeletal metastasis with interv al increased size and number of lytic lesions. New mild pathologic fractures of L3 and L4. 4. Diverticulosis. THIS DOCUMENT HAS BEEN ELECTRONICALLY SIGNED BY OZ IRBY MD MR Brain with and without Contrast Result Date: 01/12/2021 INDICATION: Mental status change, unknown cause TECHNIQUE: Multiplanar multisequ ence magnetic resonance imaging of the brain was obtained. IV gadolinium contras t was administered. COMPARISONS: No prior relevant studies are available at the time of this dictation. FINDINGS: The cerebral parenchyma is normal in appearanc e. There are no areas of abnormal restricted diffusion to suggest acute infarct. No areas of abnormal susceptibility are identified to suggest the presence of a cute hemorrhage. 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 The cerebellum and brainstem a re normal. The regions of the sella, pituitary, and pontomedullary junctions are normal in configuration. There is increase intensity area in the periventricular and scattered subcortical white matter, nonspecific and likely reflect small v essel ischemic disease. The extra-axial spaces are normal in size and morphology for the patient's age. There is no intracranial hemorrhage. The basal cisterns are patent. There is no shift of the midline structures. The visualized upper ce rvical spine is normal. The calvarium is intact. Normal flow voids are present, without atheroma, occlusion, or dissection. Mucosal thickening in the bilateral maxillary sinuses otherwise paranasal sinuses are well aerated. The mastoid air cells are clear. The visualized orbits are normal in appearance. IMPRESSION: 1. No evidence of acute hemorrhage or territorial infarction. 2. 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 2. There is increase high intensity area in the pe riventricular and scattered subcortical white matter region, nonspecific and lik myriam reflect small vessel ischemic disease. XR Chest Frontal Only Result Date: 01/11/2021 PROCEDURE INFORMATION: Exam: XR Chest Exam date and time: 01/11/2021 5:51 PM Age: 60 years old Clinical indication: Other: Procalcitonin elevated, rule out pna T ECHNIQUE: Imaging protocol: XR of the chest. Views: 1 view. COMPARISON: CR Chest , 2 view PA, Lat 11/08/2020 7:12 PM FINDINGS: Tubes, catheters and devices: Port catheter remains in place. Lungs: Low lung volumes.. No consolidation. Pleural spaces: Unremarkable. No pleural effusion. No pneumothorax. Heart/Mediastinum: U nremarkable. No cardiomegaly. Bones/joints: Unremarkable. IMPRESSION: No acute c ardiopulmonary abnormality. THIS DOCUMENT HAS BEEN ELECTRONICALLY SIGNED BY CALLIE VILLEGAS MD IR Nephrostomy Insertion Change Result Date: 01/14/2021 EXAM: Image guided right nephrostomy tube placement, 01/13/2021 CLINICAL INDICAT IONS: 60-year-old male with metastatic prostate cancer now presents with right- sided hydronephrosis Contrast Type and Dose: Omnipaque 300 15 mL Fluoroscopy ti me 2.8 minute, Fluoroscopy Dose 11.8 mGy. Consent: Following discussion of the r isks, benefits and alternatives of the procedure, written informed consent was o btained. Moderate Sedation: I performed Moderate Sedation with intravenous 1 mg of Versed and 50 mcg of fentanyl for 30 minutes COMPARISON: CT abdomen pelvis wi thout contrast 01/12/2021 TIME OUT: Prior to the procedure a time out was perform ed in the presence of the patient and all personnel involved in this case. The patient identity, procedure type, procedure side/site, and allergies were verifi ed. Intravenous antibiotics were administered before and during the procedure. T ECHNIQUE: Position: The patient was transferred to the IR laboratory and was pos itioned prone on the procedural table. The right flank area was prepped and drap ed using maximum sterile barrier technique. Procedure: After infiltration of loc al anesthesia and using direct ultrasound guidance, a 20-gauge needle was advanc ed into a posterolateral calyx of lower pole of right kidney. A small amount of contrast was injected and an antegrade nephrostogram was performed. It demonstra lissa moderate right-sided hydronephrosis. A 0.018 wire was passed through the nee dle into the proximal collecting system. The needle was removed and a 6 Egyptian c oaxial dilator and sheath system was placed over the wire. Subsequently, the wir e and inner dilator were exchange for an Amplatz wire which was positioned in th e proximal ureter. The 6 Fr sheath was removed, serial dilatation was performed, and a 10 Fr locking pigtail nephrostomy tube was placed into the right renal pe lvis. Contrast injected through the nephrostomy tube confirmed the locking pigta il location within the central renal pelvis. The nephrostomy tube was secured wi th 2-0 Prolene suture and sterile dressing and attached to external gravity drai nage bag. FINDINGS: Moderate right-sided hydroureteronephrosis. IMPRESSION: Technically successful placement of a new 10 Fr right nephrostomy tu be (10 Fr ReSolve) under [place] and [place] guidance. Plan: Exchange in approximately 8-1 2 weeks is recommended. US Renal or Aorta Complete Result Date: 01/12/2021 CLINICAL INDICATION: rule out bilateral hydronephrosis / pyelonephritis. TECHNIQ UE: Multiple sonographic real-time images of the kidneys and bladder were obtain ed. COMPARISON: None available at the time of this dictation. FINDINGS: The righ t kidney measures 10.5 cm in length, and the left kidney measures 11.6 cm in elijah gth. The right kidney is normal in size, contour, cortical thickness, and echoge nicity. Moderate right hydroureteronephrosis. Soft tissue thickening is noted hernandez rrounding the right ureter measuring 10.2 x 4.2 cm No renal lesion is identified . No perinephric fluid collection is seen. The left kidney is normal in size, c ontour, cortical thickness and echogenicity. No hydronephrosis is identified. No focal renal lesion is identified. No perinephric fluid collection is seen. F oley catheter is noted in the bladder. IMPRESSION: Moderate right hydroureteronephrosis with soft tissue thickening asha rounding the right ureter measuring 10.2 x 4.2 cm x 4.[address] IVP is recommen ded for further evaluation. Laboratory Data (Most Recent in Past 3 Days) Lab 01/15/21 19401/15/21 19401/16/21 03201/16/21 0323 01/17/21 0352 WBC 11.5* < > 8.8 < > 6.5 HGB 9.7* < > 9.0* < > 8.8* MCV 88.9 < > 88.3 < > 88.6 PLT 472* -- 424* -- 395 < > = values in this interval not displayed. Lab 01/15/21 1312 ALBUMIN 2.6* Lab 01/15/21 0020 01/15/21 0020 01/16/21 0323 01/16/21 0323 01/17/21 0352 NA 138 < > 140 < > 143 K 3.3* < > 4.3 < > 3.6 CL 106 < > 107 < > 110* BICARBONATE 21* < > 20* < > 21* GLUCOSE 114 < > 104 < > 101 BUN 8 < > 8 < > 7* CREATININE 0.97 -- 1.10 -- 1.16 < > = values in this interval not displayed. Discharge Medications Discharge Medications: Medication List START taking these medications calcitonin (salmon) 200 UNIT/ACT nasal spray Commonly known as: MIACALCIN 1 spray by Nasal route daily for 7 days ferrous gluconate 324 MG tablet Commonly known as: FERGON Take 1 tablet by mouth every other day folic acid 1 MG tablet Commonly known as: FOLVITE Take 1 tablet by mouth daily Start taking on: January 18, 2021 CONTINUE taking these medications aspirin 81 MG tablet carisoprodol 350 MG tablet Commonly known as: SOMA CertaVite/Antioxidants Tabs chlorhexidine 0.12 % solution Commonly known as: PERIDEX clobetasol 0.05 % ointment Commonly known as: TEMOVATE Apply topically Two Times Daily dronabinol 10 MG capsule Commonly known as: MARINOL fluocinolone 0.025 % ointment Commonly known as: SYNALAR gabapentin 300 MG capsule Commonly known as: Neurontin Take 1 capsule by mouth Three times daily Take 2 caps tid 600 mg per dose Lupron Depot (3-Month) injection Generic drug: leuprolide acetate * ondansetron 8 MG tablet Commonly known as: ZOFRAN Take 1 tablet by mouth every 8 (eight) hours as needed for Nausea or Vomiting. * ondansetron 8 MG tablet Commonly known as: ZOFRAN Take 1 tablet by mouth every 8 (eight) hours as needed for Nausea or Vomiting oxyCODONE 15 MG immediate release tablet Commonly known as: ROXICODONE Take 1 tablet by mouth every 4 (four) hours as needed for PainCancer related pa in, Max Daily Dose: 90 mg Indications: Chronic Pain polyethylene glycol 17 GM/SCOOP powder Commonly known as: MIRALAX Take 17 g by mouth daily prochlorperazine 10 MG tablet Commonly known as: COMPAZINE Take 1 tablet by mouth every 6 (six) hours as needed (Nausea/Vomiting) Self-Cath Coude Tip Misc Use as directed. DAILY sennosides-docusate sodium 8.6-50 MG tablet Commonly known as: SENOKOT-S Take 1 tablet by mouth daily SM Senna Laxative 8.6 MG tablet Generic drug: senna * SYRINGE/NEEDLE (DISP) 1 ML 26G X 5/8" 1 ML Misc Use as directed. Urology Kit 1 * SYRINGE/NEEDLE (DISP) 1 ML 26G X 5/8" 1 ML Misc Use as directed. Urology kit 1 tamsulosin 0.4 MG capsule Commonly known as: FLOMAX Xtandi 40 MG Caps Generic drug: enzalutamide TAKE 4 CAPSULES BY MOUTH EVERY DAY * This list has 4 medication(s) that are the same as other medications prescrib ed for you. Read the directions carefully, and ask your doctor or other care pro vider to review them with you. STOP taking these medications calcium carbonate 600 MG Tabs Commonly known as: OS-EDWIN Where to Get Your Medications These medications were sent to [facility] [address] [place] [address] calcitonin (salmon) 200 UNIT/ACT nasal spray ferrous gluconate 324 MG tablet folic acid 1 MG tablet Allergies:Patient has no known allergies. Medications Discontinued: Calcium carbonate Medications Added or Modified: Ferrous gluconate, folic acid, calcitonin Medications, including new medication and medication changes, were discussed wit h patient and/or family prior to discharge. Follow Up Appointments & Patient Instructions Future Appointments Date Time Provider Department Center 01/18/2021 10:15 AM Re Mclean MD [facility] None 01/18/2021 10:15 AM AGUS NURSE VISIT [facility] None 01/18/2021 10:30 AM [facility] 01/19/2021 10:15 AM HERRERA NURSE VISIT [facility] None 03/30/2021 12:30 PM Georgi Greene MD [facility] None Discharge planning was discussed with the patient and/or family. Please see disc harge instructions provided to the patient OR After-Visit summary on file for ad ditional information. Discharge Recommendations & Disposition Communication/Instructions to the PCP: Yes Pending labs/ tests done in hospital and still need to be followed up after disc harge: None Follow-up with PCP: 1 week Referrals: Urology, radiation oncology Disposition: The patient was hemodynamically stable at the time of discharge. Discharge to: ome Diet: Dental soft diet Activity: activity as tolerated Code Status: Full Code Condition Upon Discharge: Cognitive: Alert and oriented Functional: Independent Social Supports: Family in home The patient was discussed with Vin Escobar MD who agrees with the assessme nt and plan as noted above. Signature:Ashley Torres MD Date/Time: January 17, 2021 12:34 PM Associated attestation - Vin Escobar MD - 01/17/2021 5:06 PM EDT I saw and evaluated the patient. I have reviewed the notes, assessments, and/or procedures performed by resident, I concur with her/his documentation of Louis Mccann Over 35 minutes were spent in discharge planning. documented in this encounter Discharge Instructions * Instructions* Ashley Torres MD - 01/13/2021 1:54 PM EDT Please follow up with radiation oncology for your ongoing radiationt herapy Please follow up with Dr. Peralta for your oncology needs (appotinent currently scheduled for 01/18/21) Follow up with Urology on discharge for your nephrostomy tube Follow up with dental at [facility] for dental care. You have been given a referral Start taking calcitonin 1 nasal spray daily. YOU NEED TO FOLLOW UP WITH YOUR PCP AND ONCOLOGISTS AND GET YOUR CALCIUM LEVELS DRAWN EVERY WEEK AND DECIDE IF CALC ITONIN NEEDS TO BE CONTINUED. DISCHARGE INSTRUCTIONS FOR CARE OF YOUR NEPHROSTOMY CATHETER: Dressing Change / Skin Care: Dressing on the insertion site ("Stat-lock"/ramey dressing) is changed once a week . You may change the gauze and tegaderm once a week or as needed if it becomes soi led or dirty See dressing change section for directions. Catheter / Drainage Bag Care: See catheter/drainage bag care section for directions. See flushing/irrigating your nephrostomy tube section only if you have been inst ructed to do so. Activity: Do not lift anything heavier than 10 pounds for one week. Avoid any activity irais t causes a pulling sensation, pain around the catheter, or kinking in the cathet er. Do not engage in any activity that will cause your tubing to be pulled or mo owen. Avoid strenuous activities, such as mowing the lawn, vacuuming, playing sp orts.Do not drive while you are still taking pain medication. General Care: Resume your regular diet and medication. If you are taking blood thinning medications you may resume after 24 hours. If y ou have concerns about resuming your blood thinners, please discuss with [facility] staff prior to discharge. Wear loose, comfortable clothing that wont pull or kink the catheter tube. Shower as needed but minimize time dressing is exposed to water. If possible, [employer] guard or similar product protect the dressing Replace the dressing if it becomes damp. Do not soak in the bathtub. Care of Your Skin: Dressing on the insertion site ("Stat-lock"/ramey dressing) is changed once a week . You may change the gauze and tegaderm once a week or as needed if it becomes soi led or dirty In addition, change dressing when it becomes loose or dirty. To Change the Dressing: Wash your hands. Remove old dressing.Throw away the dressing in a plastic bag. Cleanse skin around the catheter gently using a cotton swab soaked with warm ravinder er. Gently pat dry. Check to see that the sutures or device anchoring the cathet er to the skin is secure. Apply a 4x4 gauze and secure with tape or transparent dressing. Care of Your Catheter and Drainage Bag: Keep the urinary bag below the level of your kidney. Your doctor will usually replace the catheter every 6-12 weeks to prevent blocka ge. You may choose a small urinary bag secured to your leg during the day, and a lar tata drainage bag at night. You may replace your bag as needed or weekly. Flushing and Irrigating Your Nephrostomy Tube: Equipment: Clean Gloves Adult: 10 ml pre-filled normal saline syringe (will discard 5 ml) Pediatrics: The volume will be ordered by medical provider Sterile 4x4 gauze Alcohol Pad Procedure: The usual amount of fluid used to irrigate the adult nephrostomy tube is 5 ml. Adult patients: Discard 5 ml normal saline from the 10 ml pre-filled normal sali ne syringe. Pediatric patients: The amounts will be specified by your provider. Assist patient to a side lying position with nephrostomy site up. Place sterile 4x4 gauze under male-female hub closest to insertion site. Clean c onnection site with alcohol. Disconnect catheter at hub, maintaining sterility of both connections. Attach syringe to female connector end of catheter (toward insertion site). Bria ce male connector end (attached to drainage collection tubing) on sterile 4x4 ga uze. Gently, but continuously instill the normal saline into catheter.If leakage occu rs around nephrostomy catheter (exit site) or if there is resistance, STOP insti lling the fluid and notify the physician. After installation is complete, connect female and male connector tips of cathet er. Allow the normal saline flush and urine to flow out by gravity into the urin shaylee drainage bag. Verify that the hub connections are secure and that the nephrostomy catheter is anchored laterally to the buttock and thigh, without kinks, to promote patency o r urinary drainage. If the tube falls out, place a sterile 4x4 gauze over the site and call the Inte rventional Radiology at the below numbers immediately. Safety: If you have received I.V. Sedation: Do not operate heavy machinery or drive for 24 hours. Do not drink alcohol for 24 hours. Do not sign legal documents or make important business decisions for 24 hours. If you develop redness, soreness, swelling around your tube or a fever over 100. 4 F call Interventional Radiology at the number below. In case of Emergency or if you experience severe symptoms [facility]. For questions regarding your procedure, call Interventional Radiology. Sunday-Sunday 7 am.- 4:30 pm.am. After hours and weekends call documented in this encounter Progress Notes * Arminda Schmidt RN - 01/17/2021 5:53 PM EDT Pt discharged home,discharge instruction explained to pt and son.Son stated unde rstanding.No questions at this time.IV d.cd.Port flushed and Discontinued As p er hospital prrotocol.Manzano was d/cd by previous nurse,pt voided prior to discha rge.Instruction on nephtube care and Drsg changes was explained by previous nurs e,reinforcment provided at discharge, in to see pt prior to dc ,as family expr ess concern about eye swelling.Pt ok to discharge.Safety maintained.Pt taken michelle n to [facility] by Farhan. * Jeannette Braxton RD - 01/17/2021 2:53 PM EDT Medical Nutrition Therapy Current Diet: Diet Adult; Modified; Texture & Dysphagia; Dysphagia III(NDDIII)- Dental Soft; Thin Diet Modified Meds Include: Current Facility-Administered Medications Medication Dose Route Frequency Provider Last Rate Last Admin acetaminophen (TYLENOL) tablet 650 mg 650 mg Oral Q4H PRN LILY Barr aspirin chewable tablet 81 mg 81 mg Oral Daily Ashley Torres MD 81 mg a t 01/17/21829 baclofen (LIORESAL) tablet 10 mg 10 mg Oral TID Reid Barajas MD 10 mg at 01/17/21829 carisoprodol (SOMA) tablet 350 mg 350 mg Oral TID PRN LILY Rivera chlorhexidine (PERIDEX) 0.12 % solution 15 mL 15 mL Mouth/Throat BID Sheri Araujo DDS 15 mL at 01/17/21 0830 docusate sodium (COLACE) capsule 100 mg 100 mg Oral BID Debbi Amaro MD 100 mg at 01/17/21829 folic acid (FOLVITE) tablet 1 mg 1 mg Oral Daily Ashley Torres MD 1 mg at 01/17/21829 gabapentin (NEURONTIN) capsule 300 mg 300 mg Oral Nightly Brenda Fraire 300 mg at 01/16/212032 ondansetron (ZOFRAN) tablet 8 mg 8 mg Oral Q8H PRN JACLYN Rivera BS oxyCODONE (ROXICODONE) immediate release tablet 15 mg 15 mg Oral Q4H PRN Ashley Torres MD 15 mg at 01/16/212043 piperacillin-tazobactam (ZOSYN) IVPB 3.375 g (premix) 3.375 g Intravenou s Q8H Ashley Torres MD 12.5 mL/hr at 01/17/21 0515 3.375 g at 01/17/21 0515 polyethylene glycol (MIRALAX) packet 17 g 17 g Oral Daily Debbi Amaro MD 17 g at 01/12/21 1110 potassium chloride (KLOR-CON) packet 40 mEq 40 mEq Oral Once Darryl sanabria DO tamsulosin (FLOMAX) capsule 0.4 mg 0.4 mg Oral Daily LILY Rivera 0.4 mg at 01/17/21 0956 Recent Labs Lab 01/15/21 1312 01/16/21 0323 01/17/21 0352 NA -- < > 143 CL -- < > 110* BUN -- < > 7* GLUCOSE -- < > 101 K -- < > 3.6 BICARBONATE -- < > 21* CREATININE -- < > 1.16 CALCIUM -- < > 9.3 MG -- < > 1.5* PHOS 2.1* -- -- ALBUMIN 2.6* -- -- < > = values in this interval not displayed. Height: 172.7 cm Weight: 72.1 kg (12/22/20) Body Mass Index: There is no height or weight on file to calculate BMI. Weight change: -no updated weights Energy/Protein Requirement based on: 72.1 kg (admit wt) Current Protein Needs: 1.2-1.5 g per kg body wt. = 86-108 g/d Current Energy Needs: 30-35 kcal per kg body wt. = 5365-7511 kcal/d Estimated Fluid Needs: 1mL/kcal or per team Progress Since Last Visit: Admitted from Cancer center for AMS, found to have UT I. Started on abx. Mr. Mccann has diagnosis of metastatic prostate cancer, yarelis motherapy on hold, receiving radiation as well. 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 Dental consulted for poor dentition. He is on a dental soft diet with thin liquids. Intakes have been poor at 10-25% q meal. Labs and Meds reviewed; phos and mg low. IV replacements ordered. IVF @ 150 mL/hr. Patient is at nutritional risk. Current risk is Moderate. Recommend: Dental Soft diet with thin liquids Ensure + Encourage intake of meals and supplements If feasible, start appetite stimulant -if unable to restart marinol can try others Weight patient Will continue to monitor patient labs, weights, I&Os and PO intake. * Rukhsana Claros RN - 01/17/2021 1:53 PM EDT CM spoke to [facility], [facility] accepted the case and will see at home tomorrow for nurse and HCR. * Heidi Francis, PT - 01/17/2021 10:50 AM EDT Physical Therapy Acute Care Encounter Note Medical Diagnosis: Admit from cancer center due to altered mental status Complicated cystitis Hydrourteronephrosis Hematuria Normocytic normochromic anemia Hypercalcemia History of osteonecrosis of jaw Stage IV metastatic prostate cancer, metastases to right hip, thoracic spine, and lumbar spine Rehabilitation Precautions/Restrictions: Activity: OOB w/ assistance High fall risk Full code Goal Review Visit Number: 2 SUBJECTIVE Patient Report: Patient agreeable to PT this AM, states: "I want to use the bathroom first" Pain: Patient has no complaints of pain currently. Pain Medication Today: no. OBJECTIVE General Observation: Patient received semi-reclined in bed in NAD on RA. +Port R chest, +PIV LUE, +Manzano catheter, +nephrostomy R flank/drain. Bed alarm was on at start of session. Skin Integrity Screen: Patient with all visible skin appears grossly intact. Catheter with nedra red blood/urine noted. Brief intact. Vital Signs: Asymptomatic throughout session. Functional Status: Transfers: Patient transferred sit to/from stand requiring supervision. Patient used the following equipment: Transfer belt. For incidental safety. Patient transferred to/from the toilet with modified independence. Patient used the following equipment: Grab bars. Bed Mobility: Patient moves from supine to/from sit requiring supervision. Supine to sit: HOB elevated, bedrail. Sit to supine: HOB flat, bedrail. Patient has a hospital bed at home. Locomotion/Gait/Ambulation: Patient was stand by assist with gait/ambulation for approximately 10 feet, 90 feet, 15 feet . Patient requires the following assistive device(s): Gait belt. Handrail/wall/furniture. Patient with intermittent management of IV pole, for comfort due to IV line length vs requirement for stability. Appropriate gait speed. No LOB/sway/buckling noted. Stairs: Not assessed. Patient acknowledges stairs at home, however, respectfully declines trialing today. Patient completed stairs on Sunday evaluation 01/14/21 with contact guard assist and son present. Outcome Measures: [facility] AM-PAC "6 Clicks" Basic Mobility Inpatient Short Form: Turning over in bed: No difficulty (4) Sitting down on and standing up from a chair with arms: No difficulty (4) Moving from lying on back to sitting on the side of the bed: No difficulty (4) Moving to and from a bed to a chair (including a wheelchair): No help (4) Walking in hospital room: A little help (3) Climbing 3-5 steps with a railing: A little help (3) Raw Score 22 /24. Interventions: Therapeutic Activities: Emphasis of session on assuring appropriate activity tolerance, dynamic balance required for household ambulatory tasks for eventual discharge home. Therapist with moderate verbal, visual cues for task sequencing including room navigation, activity pacing, breathing technique, rest breaks PRN to minimize fatigue, truncal posture and positioning, abdominal muscle with gluteal muscle engagement, and home set-up simulation. Patient independent with carlos-area/care hygiene in bathroom including clothing management. Bed features utilized to simulate home set-up. Therapist with graded prompts provided to promote retention of skill land independence with tasks. Education: Mode of education provided: Demonstration. Explanation. Audience: Patient. Education Provided: Safe mobility. Treatment plan. Body mechanics/postural changes. Rehabilitation techniques and procedures. Home ergonomics. Pain management. Medical equipment options. When/how to obtain future treatment. Role of acute PT. SAfe discharge planning . Response: Applied knowledge. Indicates understanding. Needs practice/reinforcement. No evidence of learning. Requires cues (auditory/physical). ASSESSMENT Response to Visit: The session was tolerated well. Patient pleasant, remains moderately confused, emotionally labile throughout session. Session terminated wiht patient in care of transport team on way to RT, RN aware. Pain: Patient has no complaints of pain currently. PLAN Treatment Frequency, Duration and Interventions: Restorative Physical Therapy is recommended for 5x/week for 1 week. Treatment is to include: Gait Training. Manual Therapy. Neuromuscular Re-education. Therapeutic Activity. Therapeutic Exercise. Self Care/Home Management. Recommended Physical Therapy Follow Up: Upon acute care discharge, the following is currently recommended: 24 hour supervision. Outpatient Physical Therapy. Equipment Provided: None issued this visit. Visit Number: Today's visit is number 2 Program: Oncology (Therapist may be reached on [facility]) SESSION: Duration: 40 CHARGES: 83360 - CHARGE - PT THERAPEUTIC ACTIVITIES - 15 MIN 3 Units - CANCER VISIT 1 Units Total treatment minutes: 40.00 Minutes Electronically Signed by: Heidi Francis PT, DPT, 01/17/2021 11:50:58 AM * Re Larose PA - 01/17/2021 9:39 AM EDT Brief ID Department Note Blood cultures from 01/11 have speciated Veillonella spp, likely contaminant. Rep eat blood cultures remain sterile. Urine culture is polymicrobial with E coli, E nterococcus spp, and Strep mitis. Patient has been receiving Zosyn from 01/11 to current, he is afebrile without le ukocytosis. Recommendations: 1. Can discontinue Zosyn today. No further antimicrobials recommended. 2. Monitor clinically off antibiotics. 3. No need for further ID follow up. ID will sign off. Please do not hesitate to call with further questions or acute changes in condition. Treatment plan discussed with Dr. Alejandra. Re Larose PA-C Infectious Disease * Ashley Torres MD - 01/16/2021 11:40 AM EDT Images from the original note were not included. Hematology Oncology Inpatient Progress Note Subjective Seen and examined at bedside this morning. No significant events overnight. Aminta vasquez continues to be slightly disoriented. He is AAO x2 at [place]. Manzano is drai sheng red urine while neph tube on the right side is draining light red/pink urin e. Denies any chest pains, nausea, vomiting, fevers, chills. Review of Systems Constitutional: Negative for activity change, appetite change, chills, fatigue a nd fever. HENT: Positive for dental problem. Negative for ear pain and sinus pain. Eyes: Negative for pain. Respiratory: Negative for cough and shortness of breath. Cardiovascular: Negative for chest pain, palpitations and leg swelling. Gastrointestinal: Negative for abdominal pain and constipation. Genitourinary: Positive for dysuria. Musculoskeletal: Negative for back pain. Neurological: Negative for dizziness, light-headedness, numbness and headaches. Objective Temp: [36.3 C (97.3 F)-37 C (98.6 F)] 36.8 C (98.2 F) Pulse: [70-92] 88 Resp: [16-18] 18 BP: (100-143)/(69-90) 143/90 SpO2: [95 %-97 %] 96 % O2 Therapy: Room air Intake/Output Summary (Last 24 hours) at 01/16/2021 1140 Last data filed at 01/16/2021 0700 Gross per 24 hour Intake 1472.36 ml Output 3900 ml Net -2427.64 ml I/O last 3 completed shifts: In: 4170.7 [P.O.:295; I.V.:3081.1; Blood:344.6; IV Piggyback:450] Out: 4900 [Urine:4900] No intake/output data recorded. Last bowel movement: 01/14 Physical Exam Constitutional: Non-toxic appearance. He appears ill. No distress. HENT: Head: Normocephalic. Eyes: Pupils are equal, round, and reactive to light. No scleral icterus. Neurological: He is alert. Skin: He is not diaphoretic. Lines, Tubes, Monitors & Restraints Description Still Required? Comments PIV [] Yes [] No Manzano [] Yes [] No Total Days of Anti-infective Therapy: 6 Anti-infectives (From admission, onward) Start Dose/Rate Route Frequency Ordered Stop 01/13/21 1000 piperacillin-tazobactam (ZOSYN) IVPB 3.375 g (premix) 3.375 g 12.5 mL/hr over 4 Hours Intravenous Every 8 hours 01/13/21 0734 01/20/21 1259 Laboratory Data (Most Recent in Past 3 Days) Lab 01/15/21 0020 01/15/21 0020 09/18/194401/15/21194401/16/21322 WBC 7.5 < > 11.5* < > 8.8 HGB 6.9* < > 9.7* < > 9.0* HCT 21.2* < > 29.4* < > 26.7* MCV 88.0 < > 88.9 < > 88.3 PLT 380 -- 472* -- 424* < > = values in this interval not displayed. Lab 01/14/216 01/14/216 01/15/210 01/15/211901/16/21 0323 NA 136 < > 138 < > 140 K 3.4 < > 3.3* < > 4.3 CL 103 < > 106 < > 107 BICARBONATE 20* < > 21* < > 20* GLUCOSE 116 < > 114 < > 104 BUN 10 < > 8 < > 8 CREATININE 1.15 -- 0.97 -- 1.10 < > = values in this interval not displayed. Lab 01/15/210 01/15/21 1312 01/16/21 0323 CALCIUM < > -- 9.6 MG -- -- 1.8 PHOS -- 2.1* -- < > = values in this interval not displayed. Lab 01/14/2145501/14/216 01/15/210 01/15/21 0020 01/16/21 0323 NEUTOPHILPCT 88 < > 83 < > 79 LYMPHOPCT 8 < > 11 < > 14 MONOPCT 4 < > 6 < > 6 EOSPCT 0 -- 0 -- 1 < > = values in this interval not displayed. Lab 01/15/21 1312 ALBUMIN 2.6* Assessment/Plan Mr.Charles Rosa Elena Madrids a 60 y.o.malewith PMH of prostate cancer who presented to for AMS. He is found to have UTI and is currently being esthela ated with Abx. Principal Problem: UTI (urinary tract infection) #Acute metabolic encephalopathy -POA, afebrile -Likely secondary to underlying UTI -UA positive for 94 WBCs, nitrite positive, LE positive -1/2 blood cultures+ for GNC,Veillonella species -Urine likely source of infection -MRI brain neg for acute infarction/hemorrage -ID on board. Recommend continuing Zosyn(D6) #Complicated cystitis #Hydrourteronephrosis #Hematuria - UA positive for 94 WBCs, nitrite positive, LE positive - blood culture 01/11 growing Veillonella, repeat blood cx 01/14 NGTD - ID on board. Recommend continuing Zosyn(D6) - urine culture positive for strep mitis, entero, ecoli -Renal ultrasound showing moderate right hydronephrosis s/p neph tube 01/13 - Continue with Manzano - Continue with Flomax #Normocytic normochromic anemia - likely iron deficiency - H/H down to 01/23.7. Did require transfusion on 01/15/2029 - iron studies showed iron: 13, folate <2.00 - B12 wnl - C/w daily folic acid - Awaiting B1, B6 results #Hypercalcemia -Likely 2/2 to poor p.o. intake given AMSv.Hypercalcemia of malignancy -Ca 14>12.5. s/pcalcitonin at cancer center -PTH 24.PTHrPpending still -S/p multiple doses calcitonin -Calcium trended to 9.6 today -C/w IVF at 150 cc/hr -Consider steroids if calcium continues to stay elevated. For now, stable #History of osteonecrosis of jaw -2/2 to bisphosphonate use -Use calcitonin to bring calcium down if needed -Dental consulted. Will follow up outpatient. Continue with dental diet soft #Metastatic prostate cancer -FollowsDr. Peralta's -Pain management with home oxygen and gabapentin -C/whome carisoprodol muscle relaxant for spasms -Currently holding chemotherapy given underlying infection -Rad oncology board. Patient is s/p 2/5 tx to prostate #Anorexia -Likely 2/2 to underlying malignancy -Currently holding Marinol given encephalopathy -secondary to dental issues -Dental consulted, dentures unlikely at this time. Follow-up outpatient -C/w dental soft diet, tolerating well DVT Prophylaxis:SCD's while in bed GI Prophylaxis:Not Indicated Functional Status:mildly impaired Code Status:Full Code Disposition: Plan discharge to:Home Estimated Discharge Date:TBD The patient was discussed withVin Escobar MDwho agrees with the as sessment and plan as noted above. Signature: Ashley Torres MD Date/Time: January 16, 2021 11:40 AM Ashley Torres Internal Medicine PGY-1 Pager: [phone] Please call or page for any questions Associated attestation - Vin Escobar MD - 01/16/2021 12:24 PM EDT I saw and evaluated the patient. I have reviewed the notes, assessments, and/or procedures performed by resident, I concur with her/his documentation of Jaime Mccann * Lynnette Alvarez - 01/15/2021 11:42 AM EDT Hematology Oncology Inpatient Progress Note Subjective Patient is feeling well today. Patient endorses less fatigue and no acute pain. Patient looks comfortable resting in bed. Review of Systems Constitutional: Negative for activity change, appetite change, chills, fatigue a nd fever. HENT: Positive for dental problem. Negative for ear pain and sinus pain. Eyes: Negative for pain. Respiratory: Negative for cough and shortness of breath. Cardiovascular: Negative for chest pain, palpitations and leg swelling. Gastrointestinal: Negative for abdominal pain and constipation. Genitourinary: Positive for dysuria. Musculoskeletal: Negative for back pain. Neurological: Negative for dizziness, light-headedness, numbness and headaches. Objective Temp: [36.4 C (97.5 F)-36.8 C (98.2 F)] 36.4 C (97.5 F) Pulse: [80-100] 100 Resp: [16-20] 16 BP: (103-137)/(67-96) 137/96 SpO2: [94 %-98 %] 97 % O2 Therapy: Room air Intake/Output Summary (Last 24 hours) at 01/15/2021 1143 Last data filed at 01/15/2021 1100 Gross per 24 hour Intake 3626.19 ml Output 5150 ml Net -1523.81 ml I/O last 3 completed shifts: In: 1102.8 [P.O.:100; I.V.:952.8; IV Piggyback:50] Out: 4525 [Urine:4525] I/O this shift: In: 2623.4 [I.V.:2473.4; IV Piggyback:150] Out: 1000 [Urine:1000] Last bowel movement: 01/14 Physical Exam Constitutional: Non-toxic appearance. He appears ill. No distress. HENT: Head: Normocephalic. Eyes: Pupils are equal, round, and reactive to light. No scleral icterus. Neurological: He is alert. Skin: He is not diaphoretic. Lines, Tubes, Monitors & Restraints Description Still Required? Comments PIV [] Yes [] No Manzano [] Yes [] No Total Days of Anti-infective Therapy: 5 Anti-infectives (From admission, onward) Start Dose/Rate Route Frequency Ordered Stop 01/13/21 1000 piperacillin-tazobactam (ZOSYN) IVPB 3.375 g (premix) 3.375 g 12.5 mL/hr over 4 Hours Intravenous Every 8 hours 01/13/21 0734 01/20/21 1259 Laboratory Data (Most Recent in Past 3 Days) Lab 01/13/2114101/13/2114101/14/2145501/14/2145501/15/21 0020 WBC 14.4* < > 11.4* < > 7.5 HGB 7.4* < > 7.8* < > 6.9* HCT 22.7* < > 24.0* < > 21.2* MCV 87.6 < > 87.6 < > 88.0 PLT 391 -- 407* -- 380 < > = values in this interval not displayed. Lab 01/13/2114101/13/2162101/14/2145501/14/2145501/15/21 0020 NA 135* -- 136 < > 138 K 3.0* < > 3.4 < > 3.3* CL 101 -- 103 < > 106 BICARBONATE 24 -- 20* < > 21* GLUCOSE 118 -- 116 < > 114 BUN 12 -- 10 < > 8 CREATININE 1.13 -- 1.15 -- 0.97 < > = values in this interval not displayed. Lab 01/13/2162101/14/2145501/15/21 0020 CALCIUM -- < > 10.0 MG 1.5* -- -- PHOS 1.9* -- -- < > = values in this interval not displayed. Lab 01/13/21 0142 01/13/21 0142 01/14/21 0456 01/14/21 0456 01/15/21 0020 NEUTOPHILPCT 86 < > 88 < > 83 LYMPHOPCT 6 < > 8 < > 11 MONOPCT 8 < > 4 < > 6 EOSPCT 0 -- 0 -- 0 < > = values in this interval not displayed. Invalid input(s): BILDIR Lab 01/12/21 1741 INR 1.50 Assessment/Plan Mr.Charles Rosa Elena Reyez a 60 y.o.malewith PMH of prostate cancer who presented to for AMS. He is found to have UTI and is currently being esthela ated with Abx. Principal Problem: UTI (urinary tract infection) #01/15 updates - rad onc doing 5 once-daily treatments to the prostate (2 completed 01/13, 01/14) - rad onc also consulted for mass around right ureter and bladder, appreciated r ecs - back pain well controlled with home dose oxycodon 15mg q4h prn and baclofen 10 mg - dental consulted for osteonecrosis of the jaw and missing teeth - changed diet to dental soft - IR placed a right nephrostomy tube 01/13, draining pink urine - holding chemo and AC - iron studies show a mix of ACD and iron def anemia - on folate - H/H dropped to 6.9/21.2 overnight, 1U PRBC today - hold off iron supp. given ongoing bacteremia - consulted ID for bacteriemia, recommended continue zosyn(on day 5), appreciate recs - 01/11 blood culture showed Veillonella species - repeated blood culture 01/14, no growth 1 day - 200U calcitonin given 01/14 due to continued hypercalcemia, ca level 10.0 today - waiting B1, B6 levels - waiting magnesium, phosphorus, ionized ca level - waiting urine cytology results #Acute metabolic encephalopathy -POA, afebrile -Likely secondary to underlying UTI -UA positive for 94 WBCs, nitrite positive, LE positive -1/2 blood cultures+ for GNC,Veillonella species - urine cultures [id number] microorganisms, entero, ecoli, st rep mitis -MRI brain neg for acute infarction/hemorrage -Continue with Zosyn(D5) #Complicated cystitis #Hydrourteronephrosis #Hematuria - UA positive for 94 WBCs, nitrite positive, LE positive - blood culture 01/11 showed anaerobic gram neg cocci,Veillonella - repeat blood culture 01/14 no growth 1 day - ID consulted for bacteriemia, rec c/w zosyn - urine culture positive for strep mitis, entero, ecoli - Renal ultrasound showing moderate right hydroureteronephrosis with soft tissue thickening around the right ureter. This could be malignant obstruction - Manzano placed this admissionwhich shows stringy clots and hematuria - Continue with Flomax - IR placed right neph tube on 01/13 - In the meantime, continue with Zosyn - CT abd from 01/12 showed large mass lesion of right proximal ureter and large b ladder mass likely malignant #Normocytic normochromic anemia - likely iron deficiency - H/H down to 6.9/21.2 this morning from 7.8 yesterday, transfused 1unit PRBC - iron studies showed iron: 13, folate <2.00 - B12 wnl - daily folate started - waiting B1, B6 results #Hypercalcemia -Likely secondary to poor p.o. intake given AMSv.Hypercalcemia of malign jerrell -Ca 14>12.5. s/pcalcitonin at cancer center -PTH 24.PTHrPpending -completed [id number] calcitonin 01/12, improving, continue monitoring calcium - last 200U calcitonin given 01/15 - calciumtoday 10.0, tending down from 11.1 yesterday - consider exterminator termite calcitonin in the future - Continue with IV fluids at 150 cc/hr - Daily BMP -repeatCalcium level this evening. If stays elevated, will give another dose of calcitonin. -If calcium does not improve, will consider initiating steroids #History of osteonecrosis of jaw -Secondary to bisphosphonate use -We will use calcitonin to bring calcium down rather than Zometa - consulted dental, dentures unlikely at this time- started on dental soft diet #Metastatic prostate cancer -FollowsDr. Peralta's -return to home dose oxycodon 15 q4h PRNand [id number] nightly (home dose T ID) -C/whome carisoprodol muscle relaxant for spasms -Currently holding chemotherapy given underlying infection - CT sim completed, rad onc is starting 5 once-daily treatments to the prostate up-front due to recurrent hematuria(completed 2 treatments so far) #Anorexia -Secondary to underlying malignancy -Currently holding Marinol given encephalopathy - secondary to dental issues - dental consulted, dentures unlikely at this time -started on dental soft diet, tolerating well DVT Prophylaxis:SCD's while in bed GI Prophylaxis:Not Indicated Functional Status:mildly impaired Code Status:Full Code Disposition: Plan discharge to:Home Estimated Discharge Date:TBD The patient was discussed withVin Escobar MDwho agrees with the as sessment and plan as noted above. Signature: Lynnette Alvarez Date/Time: January 15, 2021 11:43 AM Associated attestation - Vin Escobar MD - 01/15/2021 1:29 PM EDT I saw and evaluated the patient. I have reviewed the notes, assessments, and/or procedures performed by resident, I concur with her/his documentation of Jaime Mccann * Montez Narayan RN - 01/15/2021 2:28 AM EDT Patient's H/H 6.9/21.2. Night float (Jarrett Land DO) notified via phone call. Exp lained to Night float that patient currently does not have consent for transfusi on on file and patient isn't consentable due to poor orientation status. Night f loat aware and this mortgage underwriter explained to night float if we were to get consent th e HCP would need to be contact. Night float aware. Currently no new orders. Asse ssment ongoing. * Stanislav Paz MD - 01/14/2021 3:48 PM EDT Urology Progress Note Hospital Day #: 3 Interval Present History No acute events o/n. Pain is well-controlled. Received R NT yesterday, draining clear urine this AM. Manzano draining pink urine. Cr stable; WBC downtrending. No fevers, chills, CP or SOB reported. Vital Signs: Temp (24hrs), Av.6 C, Min:36.4 C, Max:37 C Visit Vitals BP 119/82 (BP Location: Right arm, Patient Position: Lying) Pulse 83 Temp 36.5 C (Oral) Resp (!) 20 SpO2 94% Intake/Output last 3 shifts: I/O last 3 completed shifts: In: 2132.5 [P.O.:340; I.V.:1542.5; IV Piggyback:250] Out: 4575 [Urine:4575] Diet: Diet Adult; Modified; Texture & Dysphagia; Dysphagia III(NDDIII)-Dental Soft; Thin Physical Exam General: Resting comfortably in bed. NAD HEENT: NCAT CV: RRR Respiratory: Non-labored breathing, symmetric chest rise GI: Soft, non-tender, non-distended : manzano with pink urine; R NT draining serosanguinous fluid Ext: WWP, Moving all extremities spontaneously Data Reviewed: BMP: Lab Results Component Value Date NA 136 01/14/2021 K 3.4 01/14/2021 CL 103 01/14/2021 BICARBONATE 20 (L) 01/14/2021 GLUCOSE 116 01/14/2021 BUN 10 01/14/2021 CREATININE 1.15 01/14/2021 BCR 9 01/14/2021 GFRAA 78 01/14/2021 GFRNONAA 67 01/14/2021 Lytes: Lab Results Component Value Date CALCIUM 11.1 (H) 01/14/2021 MG 1.5 (L) 01/13/2021 PHOS 1.9 (L) 01/13/2021 Hepatic Panel: Lab Results Component Value Date ALBUMIN 2.9 (L) 01/12/2021 ALKPHOS 122 01/12/2021 ALT 14 01/12/2021 AST 33 01/12/2021 PROT 5.9 (L) 01/12/2021 TBILI 0.3 01/12/2021 CBC: Lab Results Component Value Date WBC 11.4 (H) 01/14/2021 RBC 2.75 (L) 01/14/2021 HGB 7.8 (L) 01/14/2021 HCT 24.0 (L) 01/14/2021 PLT 407 (H) 01/14/2021 Coagulation: Lab Results Component Value Date INR 1.50 01/12/2021 Imaging: CT a/p w/o contrast (01/12/21)- R hydronephrosis appreciated with large ureteral lesion in the proximal right ur eter; stable L ureteral findings Assessment: Principal Problem: UTI (urinary tract infection) Louis Mccann is a 60 y.o. male with metastatic prostate cancer on systemic therapy admitted for AMS. Also has been having gross hematuria and found to hav e new right hydronephrosis in the setting of CT earlier this summer suggestive o f invasion towards the bladder neck. Planned to begin radiation to the pelvis. C T 01/13/21 shows worsening R hydronephrosis from previous scans as well as large ureteral lesion. R NT draining clear urine. Plan: -Plan for IR placement of R NT today -NPO; hold morning DVT ppx and AC -Monitor urine color -We will send follow-up for him to see Dr. Greene 1-2 weeks after discharge; we w ill also set him for nephrostomy tube exchanges and follow-up on official CT sca n read and cultures -Continue care per primary team To be discussed with Dr. Greene. Please refer to the attending's addendum for fin al recommendations and management plans. Stanislav Paz PGY-1 Department of Urology Associated attestation - Georgi Greene MD - 01/17/2021 9:33 AM EDT I reviewed the above history and physical and agree with the assessment and plan . * Ashley Torres MD - 01/14/2021 11:43 AM EDT Hematology Oncology Inpatient Progress Note Subjective Patient is comfortable this morning. Patient endorses baseline abdominal pain th at is well controlled. Patient endorses dental issues that makes it difficult to eat. Patient endorses chronic back pain. Patient denies chest pain, shortness o f breath, fevers, and chills. Patient has no other complaints Review of Systems Constitutional: Positive for appetite change. Negative for chills, fatigue and f ever. HENT: Positive for dental problem. Negative for ear pain, hearing loss, sinus pa in and sore throat. Eyes: Negative for pain and visual disturbance. Respiratory: Negative for cough, chest tightness and shortness of breath. Cardiovascular: Negative for chest pain, palpitations and leg swelling. Gastrointestinal: Positive for abdominal pain. Negative for constipation and ginger sea. Musculoskeletal: Positive for back pain. Neurological: Negative for dizziness, light-headedness and headaches. Psychiatric/Behavioral: Negative. Objective Temp: [36.4 C (97.5 F)-37 C (98.6 F)] 36.4 C (97.5 F) Pulse: [75-103] 75 Resp: [18-25] 18 BP: (90-125)/(61-90) 125/84 SpO2: [93 %-99 %] 98 % O2 Therapy: Room air Intake/Output Summary (Last 24 hours) at 01/14/2021 1143 Last data filed at 01/14/2021 0900 Gross per 24 hour Intake 1982.5 ml Output 3950 ml Net -1967.5 ml I/O last 3 completed shifts: In: 1982.5 [P.O.:240; I.V.:1542.5; IV Piggyback:200] Out: 4100 [Urine:4100] I/O this shift: In: - Out: 375 [Urine:375] Last bowel movement: this morning Physical Exam Constitutional: Non-toxic appearance. No distress. HENT: Head: Normocephalic. Nose: Nose normal. Eyes: Pupils are equal, round, and reactive to light. Cardiovascular: Normal rate, regular rhythm, normal heart sounds and normal puls es. Exam reveals no gallop and no friction rub. No murmur heard. Pulmonary/Chest: No stridor. No respiratory distress. He has no wheezes. He has no rhonchi. He has no rales. He exhibits no tenderness. Abdominal: Normal appearance. He exhibits no distension and no abdominal bruit. There is no abdominal tenderness. There is no rebound and no guarding. Genitourinary: Genitourinary Comments: Manzano out puting clots and urine is re d in colour; neph tube also has red urine output Musculoskeletal: General: No swelling or tenderness. Right lower leg: No edema. Left lower leg: No edema. Neurological: He is alert. Skin: Capillary refill takes less than 2 seconds. No jaundice. Psychiatric: His behavior is normal. Mood, judgment and thought content normal. Lines, Tubes, Monitors & Restraints Description Still Required? Comments PIV [] Yes [] No Manzano [] Yes [] No Total Days of Anti-infective Therapy: 4 Anti-infectives (From admission, onward) Start Dose/Rate Route Frequency Ordered Stop 01/13/21 1000 piperacillin-tazobactam (ZOSYN) IVPB 3.375 g (premix) 3.375 g 12.5 mL/hr over 4 Hours Intravenous Every 8 hours 01/13/21 0734 01/20/21 1259 Laboratory Data (Most Recent in Past 3 Days) Lab 01/12/2111001/12/2111001/13/2114101/13/2114101/14/21 0456 WBC 13.5* < > 14.4* < > 11.4* HGB 7.7* < > 7.4* < > 7.8* HCT 23.7* < > 22.7* < > 24.0* MCV 87.9 < > 87.6 < > 87.6 PLT 388 -- 391 -- 407* < > = values in this interval not displayed. Lab 01/12/2111001/12/2111001/13/2114101/13/2162101/14/21 0456 NA 137 < > 135* -- 136 K 3.6 < > 3.0* < > 3.4 CL 100 < > 101 -- 103 BICARBONATE 26 < > 24 -- 20* GLUCOSE 119 < > 118 -- 116 BUN 16 < > 12 -- 10 CREATININE 0.93 -- 1.13 -- 1.15 < > = values in this interval not displayed. Lab 01/12/2111001/13/2114101/13/2162101/14/21 0456 CALCIUM 12.5* < > -- 11.1* MG 1.7 -- 1.5* -- PHOS 2.4* -- 1.9* -- < > = values in this interval not displayed. Lab 01/13/2114101/13/2114101/14/21 0456 NEUTOPHILPCT 86 < > 88 LYMPHOPCT 6 < > 8 MONOPCT 8 < > 4 EOSPCT 0 -- 0 < > = values in this interval not displayed. Lab 01/12/21 0111 PROT 5.9* ALBUMIN 2.9* AST 33 ALT 14 TBILI 0.3 ALKPHOS 122 Lab 01/12/21 1741 INR 1.50 Assessment/Plan Mr.Charles Rosa Elena Madrids a 60 y.o.malewith PMH of prostate cancer who presented to for AMS. He is found to have UTI and is currently being esthela ated with Abx. Principal Problem: UTI (urinary tract infection) #01/14 updates - rad onc obtained patient consent for 5 once-daily treatments to the prostate - rad onc also consulted for spine mets, appreciate recs - dental consulted for osteonecrosis of the jaw and missing teeth, appreciated r ecs - IR placed a right nephrostomy tube 01/13 afternoon, draining red urine as of morning - holding chemo and AC - keep NPO - restarted home dose oxycodon 15mg q4h prn - iron studies show a mix of ACD and iron def anemia - on folate - hold off iron supp. given ongoing bacteremia - consulted ID for bacteriemia, recommended continue zosyn, appreciate recs - repeated blood culture today, pending - waiting B1, B6 levels #Acute metabolic encephalopathy -POA, afebrile -Likely secondary to underlying UTI -UA positive for 94 WBCs, nitrite positive, LE positive -1/2 blood cultures+ for GNC - urine cultures [id number] microorganisms, entero, ecoli, st rep mitis -MRI brain still pending -Continue with Zosyn(D3) #Complicated cystitis #Hydrourteronephrosis #Hematuria -UA positive for 94 WBCs, nitrite positive, LE positive -blood culture showed anaerobic gram neg cocci - ID consulted for bacteriemia, rec c/w zosyn - urine culture positive for strep mitis, entero, ecoli -Renal ultrasound showing moderate right hydroureteronephrosis with soft tissue thickening around the right ureter. This could be malignant obstruction -Manzano placed this admissionwhich shows stringy clots and hematuria -Continue with Flomax -urology consulted, considering right nephrostomy tube in discussion with IR -In the meantime, continue with Zosyn #Normocytic normochromic anemia - likely iron deficiency - hgb stable at 7.8 today, up from 7.4 yesterday - iron studies showed iron: 13, folate <2.00 - B12 wnl - daily folate started - waiting B1, B6 results #Hypercalcemia -Likely secondary to poor p.o. intake given AMSv.Hypercalcemia of ma lignancy -Ca 14>12.5. s/pcalcitonin at cancer center -calcium today 11.1, stable from 11.1 yesterday -PTH 24.PTHrPpending -completed [id number] calcitonin 01/12, improving, continue monitoring calcium -Continue with IV fluids at 150 cc/hr -Daily BMP -repeat Calcium level this evening. If stays elevated, will give another dose of calcitonin. -If calcium does not improve, will consider initiating steroids #History of osteonecrosis of jaw -Secondary to bisphosphonate use -We will use calcitonin to bring calcium down rather than Zometa - consulted dental #Metastatic prostate cancer -FollowsDr. Peralta's -return to home dose oxycodon 15 q4h PRNand [id number] nightly (home dose T ID) -C/whome carisoprodol muscle relaxant for spasms -Currently holding chemotherapy given underlying infection - CT sim completed, rad onc is starting 5 once-daily treatments to the prostate up-front due to recurrent hematuria #Anorexia -Secondary to underlying malignancy -Currently holding Marinol given encephalopathy DVT Prophylaxis:SCD's while in bed GI Prophylaxis:Not Indicated Functional Status:mildly impaired Code Status:Full Code Disposition: Plan discharge to:Home Estimated Discharge Date:TBD The patient was discussed with Vin Escobar MDwho agrees with the asses sment and plan as noted above. Signature: Lynnette Alvarez Date/Time: January 14, 2021 11:43 AM I have read/edited above note and discussed with the attending who is in agreeme nt with the above plan. -Patient is status post right nephrostomy tube on 01/13/2021. Currently draining yellow urine. UOP from neph tube 2375/24 hrs -Suprapubic catheter culture pending. -Was complaining of back pain today. Will consult radiation oncology for possib le palliative radiation to the spine -Patient also has poor dentition and is complaining of pain in his mouth. We wi ll consult dental for that -Patient's last blood cultures showed gram-negative cocci, however have not spec iated yet. Patient is on day 4 of Zosyn. We will continue for now -Urine culture growing E. coli, Streptococcus and Enterococcus -We will repeat blood cultures today -We will require outpatient physical therapy on discharge -Calcium stays elevated at 11.1. Continue with IV fluids at 150 cc/h -We will obtain ionized calcium. -Community-acquired diarrhea panel positive for enteropathic E. coli. Patient n ot currently complaining of any diarrhea. We will treat symptomatically Associated attestation - Vin Escobar MD - 01/14/2021 5:25 PM EDT I saw and evaluated the patient. I have reviewed the notes, assessments, and/or procedures performed by resident, I concur with her/his documentation of Jaime edouard Siobhan * Re Larose PA - 01/14/2021 11:12 AM EDT Images from the original note were not included. [facility] INPATIENT [address] [place] [id number] Louis Mccann [id number] 1960 60 y.o. year old male 01/11/2021 Infectious Disease Follow Up Note Physician Requesting ID Consult: Vin Escobar MD Length of stay: 3 Mr. Louis Mccann is a 60 y.o. male Problem List Principal Problem: UTI (urinary tract infection) Reason for ID Consult/Chief Complaint: 1. Gram negative cocci bacteremia 2. Polymicrobial UTI with E coli, Strep mitis, and Enterococcus 3. Stool + EPEC Interim History This is a 60 y.o M with a PMH of stage IV prostate cancer with spinal mets being treated with Lupron IM [id number] and cabazitaxel on 11/23/20 who presents with ur inary obstruction with subsequent UTI and bacteremia. He had a right nephrostomy tube placed on 01/13, blood culture is positive for anaerobic gram negative cocc i, and urine culture is positive for cosme-sensitive E coli, Strep mitis and Enter ococcus spp. In addition, the patient has been having diarrhea and his stool has tested positive for enteropathogenic E coli. He remains afebrile with very mild leukocytosis. He was seen and examined at the bedside today and he appears comfortable and in no acute distress. The patient is unable to comment if he feels much better but his son states that the patient looks significantly better compared to day of admission. The patient states he still has lower back pain but he is unable to elaborate if it is in his flanks. He also has mild abdominal pains and significant diarrhea although his son state s he received a laxative. The patient otherwise denies fever, chills, chest pain , dyspnea, N/V. Review of Systems Review of Systems Full ROS reviewed and is negative except for as noted in the HPI above Vital Signs Vitals: 01/13/21 1717 01/13/21 2254 01/14/21 0325 01/14/21 0754 BP: 112/75 125/90 120/87 125/84 BP Location: Right arm Right arm Right arm Right arm Patient Position: Lying Lying Lying Pulse: (!) 103 99 (!) 101 75 Resp: (!) 20 18 18 18 Temp: 36.6 C (97.9 F) 36.6 C (97.9 F) 37 C (98.6 F) 36.4 C (97.5 F) TempSrc: Oral Oral Oral Oral SpO2: 93% 98% 99% 98% Temp Readings from Last 3 Encounters: 01/14/21 36.4 C (97.5 F) (Oral) 01/11/21 36.9 C (98.4 F) 12/22/20 36.6 C (97.9 F) (Oral) Physical Exam Physical Exam Vitals and nursing note reviewed. Constitutional: General: He is not in acute distress. Appearance: He is not ill-appearing or toxic-appearing. HENT: Head: Normocephalic and atraumatic. Right Ear: External ear normal. Left Ear: External ear normal. Nose: Nose normal. Mouth/Throat: Mouth: Mucous membranes are moist. Pharynx: No oropharyngeal exudate. Eyes: General: No scleral icterus. Right eye: No discharge. Left eye: No discharge. Conjunctiva/sclera: Conjunctivae normal. Cardiovascular: Rate and Rhythm: Normal rate. Pulmonary: Effort: Pulmonary effort is normal. No respiratory distress. Abdominal: General: There is no distension. Palpations: Abdomen is soft. Tenderness: There is no abdominal tenderness. There is no guarding. Genitourinary: Comments: Right nephrostomy with gross hematuria. Manzano catheter with gross h ematuria. No clots in either. Musculoskeletal: Cervical back: No rigidity. Right lower leg: No edema. Left lower leg: No edema. Skin: General: Skin is warm and dry. Coloration: Skin is not jaundiced. Findings: No erythema or rash. Neurological: General: No focal deficit present. Mental Status: He is alert and oriented to person, place, and time. Mental st atus is at baseline. Psychiatric: Mood and Affect: Mood normal. Behavior: Behavior normal. Lines and Catheters Peripheral IV 11/22/20 Left Antecubital (Active) Number of days: 52 Peripheral IV 01/14/21 Anterior;Left Antecubital (Active) Site Assessment Clean;Dry;Intact 01/14/21 0800 Line Status Infusing 01/14/21 0800 Line Care Connections checked and tightened 01/14/21 0800 Dressing Type Tegaderm 01/14/21 0800 Dressing Status Clean;Intact;Dry 01/14/21 0800 Number of days: 0 Port A Cath Double Lumen 02/11/16 Right Chest (Active) Medial Access Date 01/13/21 01/14/21 1100 Medial Access Time 2240 01/13/21 2200 Medial Accessed By: NOHEMI 01/13/21 2200 Medial Size (Gauge) 20 01/14/21 1100 Medial Needle Length 0.75 01/14/21 1100 Medial Needle Type Power 01/14/21 1100 Medial Line Status Blood return noted;Flushed;Infusing 01/14/21 1100 Medial Line Care Connections checked and tightened;Flushed per protocol 01/14/21 1100 Medial Valve Change Due 01/17/21 01/14/21 1100 Medial Tubing Change Due 01/18/21 01/14/21 1100 Medial De-accessed Date 12/20/20 12/20/20 1500 Medial De-accessed Time 1552 12/20/20 1500 Lateral Access Date 01/13/21 01/14/21 1100 Lateral Access Time 2240 01/13/21 2200 Lateral Accessed By: NOHEMI 01/13/21 220 Lateral Size (Gauge) 20 01/14/21 1100 Lateral Needle Length 0.75 01/14/21 1100 Lateral Needle Type Power 01/14/21 1100 Lateral Line Status Blood return noted;Capped;Flushed;Heparin locked 01/14/21 11 00 Lateral Line Care Connections checked and tightened;Flushed per protocol;Caps ch anged 01/14/21 1100 Lateral Valve Change Due 01/17/21 01/14/21 1100 Lateral Tubing Change Due 01/15/21 01/14/21 1100 Lateral De-accessed Date 12/14/20 12/14/20 1555 Lateral De-accessed Time 1555 12/14/20 1555 Site Assessment Clean;Dry;Intact 01/13/212199 Dressing Type Biopatch;Bio-occlusive 01/13/212199 Dressing Status Clean;Dry;Intact 01/13/212199 Dressing Intervention New dressing 01/12/21 1300 Dressing Change Completed 01/13/21 01/13/212199 Dressing Change Due 01/20/21 01/13/21 220 Flush Performed Yes 01/13/21 0900 Number of days: 1798 Nephrostomy Right 10 Fr. (Active) Site Assessment Clean;Intact 01/14/21 0800 Dressing Status Clean;Dry;Intact 01/14/21 0800 Collection Container Standard Drainage Bag 01/14/21 0800 Urine Output (mL) 200 mL 01/14/21 1148 Number of days: 0 Antibiotics Antibiotic Orders Diet Adult; Regular starting at 01/13 1728 piperacillin-tazobactam (ZOSYN) IVPB 3.375 g (premix) at 12.5 mL/hr starting at 01/13 1000 Data Recent Labs Lab 01/11/21 1045 01/11/21 1124 01/12/21 0111 0914101/14/216 HCT < > -- 23.7* 22.7* 24.0* HGB < > -- 7.7* 7.4* 7.8* MCH < > -- 28.6 28.5 28.3 MCHC < > -- 32.6 32.5 32.3 MCV < > -- 87.9 87.6 87.6 PLT < > -- 388 391 407* RDW < > -- 16.1* 16.3* 16.5* WBCUA -- 94* -- -- -- WBC < > -- 13.5* 14.4* 11.4* < > = values in this interval not displayed. Recent Labs Lab 01/12/2111001/12/2111001/13/2114101/13/2162101/14/21455 NA 137 -- 135* -- 136 K 3.6 < > 3.0* 3.4 3.4 CL 100 -- 101 -- 103 BICARBONATE 26 -- 24 -- 20* GLUCOSE 119 -- 118 -- 116 BUN 16 -- 12 -- 10 CREATININE 0.93 -- 1.13 -- 1.15 BCR 17 -- 10 -- 9 GFRAA >90 -- 80 -- 78 GFRNONAA 89 -- 69 -- 67 < > = values in this interval not displayed. Microbiology 01/14 CA-Diarrhea Panel: Enteropathogenic E coli Imaging No new imaging. Assessment and Plan Mr. Louis Mccann is a 60 y.o. 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 Urine is growing E coli, Strep mitis, and Enterococcus spp and blood cultures are still pending speciation. High suspicion for bacteremia from a urinary source given significant hydroureteronephrosis. Zosyn should cover both blood and urine isolates appropriately. Recommendations: 1. Continue Zosyn 3.375 g IV Q8. 2. Duration remains TBD by pending blood culture speciation and clinical course. Will continue to follow Please call [phone] with questions or changes in condition. Thank you for allowing us to participate in the care of this patient. The patient was discussed with Heide Alejandra MD who agrees with the above a ssessment and plan. Re Larose PA 01/14/2021 11:53 AM Time Spent: >30 minutes * Eva Santana RN - 01/14/2021 6:16 AM EDT Vascular Access Team: Called for no blood return in the right dual dome chest po rt. Flushed port and changed claves without returning blood return. Xiang Clark, bedside RN, states needles were changed this past evening. Alteplase inst illed in the medial dome and taped off, "Do not use." VAT will continue to follo w this patient. * Evonen Trinidad RN - 01/13/2021 11:15 PM EDT Pt's manzano continues to drain red urine. R neph tube urine continues to be pink. Dr. Land aware. * Lance Paul RN - 01/13/2021 6:08 PM EDT Urine catheter had blood after procedure, starting to clear up now. Team 6-9 microfilm technician sscover notified * Ashley Torres MD - 01/13/2021 10:55 AM EDT Images from the original note were not included. Hematology Oncology Inpatient Progress Note Subjective Patient is feeling well today. Patient denies flank pain, stomach pain, chest pa in. Patient endorses decreased appetite. Review of Systems Constitutional: Positive for appetite change. Negative for chills and fever. HENT: Negative for ear pain and sinus pain. Eyes: Negative for pain and redness. Respiratory: Negative for cough, chest tightness and shortness of breath. Cardiovascular: Negative for chest pain and leg swelling. Gastrointestinal: Negative for abdominal pain and constipation. Genitourinary: Negative for flank pain, penile pain and testicular pain. Musculoskeletal: Negative for back pain. Neurological: Negative for dizziness, light-headedness and headaches. Psychiatric/Behavioral: Positive for confusion. Negative for agitation and behav ioral problems. The patient is not nervous/anxious. Objective Temp: [36.3 C (97.3 F)-36.5 C (97.7 F)] 36.5 C (97.7 F) Pulse: [89-96] 92 Resp: [16-18] 17 BP: (99-126)/(63-89) 118/77 SpO2: [95 %-97 %] 97 % O2 Therapy: Room air Intake/Output Summary (Last 24 hours) at 01/13/2021 1058 Last data filed at 01/13/2021 0743 Gross per 24 hour Intake 1400 ml Output 2175 ml Net -775 ml I/O last 3 completed shifts: In: 1400 [P.O.:100; I.V.:1050; IV Piggyback:250] Out: 2375 [Urine:2375] I/O this shift: In: - Out: 350 [Urine:350] Last bowel movement: 01/13 Physical Exam Constitutional: Non-toxic appearance. He appears ill. Eyes: Pupils are equal, round, and reactive to light. Cardiovascular: Normal rate, regular rhythm, normal heart sounds and normal puls es. Exam reveals no gallop and no friction rub. No murmur heard. Pulmonary/Chest: Effort normal and breath sounds normal. No stridor. No respirat ory distress. He has no wheezes. He has no rhonchi. He has no rales. He exhibits no tenderness. Abdominal: He exhibits no distension. There is no abdominal tenderness. There is no guarding. Musculoskeletal: General: No tenderness. Right lower leg: No edema. Left lower leg: No edema. Neurological: He is alert. Oriented to person and place, disoriented to time. Skin: Capillary refill takes less than 2 seconds. No jaundice. Lines, Tubes, Monitors & Restraints Description Still Required? Comments PIV [] Yes [] No Manzano [] Yes [] No Total Days of Anti-infective Therapy: 3 Anti-infectives (From admission, onward) Start Dose/Rate Route Frequency Ordered Stop 01/13/21 1000 piperacillin-tazobactam (ZOSYN) IVPB 3.375 g (premix) 3.375 g 12.5 mL/hr over 4 Hours Intravenous Every 8 hours 01/13/21 0734 01/20/21 0959 Laboratory Data (Most Recent in Past 3 Days) Lab 01/11/21 1045 01/11/21 1045 01/12/21 0111 01/12/21 0111 01/13/21 0142 WBC 19.4* < > 13.5* < > 14.4* HGB 9.1* < > 7.7* < > 7.4* HCT 26.8* < > 23.7* < > 22.7* MCV 87.2 < > 87.9 < > 87.6 PLT 438* -- 388 -- 391 < > = values in this interval not displayed. Lab 01/11/21 1834 01/11/21 1834 01/12/21 0111 01/12/21 0111 01/13/21 0142 01/13/21 0142 01/13/21 0622 NA 137 < > 137 < > 135* -- -- K 2.7* < > 3.6 < > 3.0* < > 3.4 CL 97* < > 100 < > 101 -- -- BICARBONATE 21* < > 26 < > 24 -- -- GLUCOSE 114 < > 119 < > 118 -- -- BUN 18 < > 16 < > 12 -- -- CREATININE 0.96 -- 0.93 -- 1.13 -- -- < > = values in this interval not displayed. Lab 01/11/21 1124 01/11/21 1834 01/12/21 0111 01/12/21 0111 01/13/21 0142 01/13/21 0622 CALCIUM -- < > 12.5* < > 11.1* -- MG 2.0 -- 1.7 < > -- 1.5* PHOS 3.9 -- 2.4* -- -- 1.9* < > = values in this interval not displayed. Lab 01/11/21 1045 01/11/21 1045 01/13/21 0142 NEUTOPHILPCT 86 < > 86 LYMPHOPCT 6 < > 6 MONOPCT 6 < > 8 EOSPCT 0 -- 0 < > = values in this interval not displayed. Lab 01/11/21 1045 01/11/21 1045 01/12/21 0111 PROT 7.2 < > 5.9* ALBUMIN 3.0* < > 2.9* AST 42* < > 33 ALT 16 < > 14 TBILI 0.4 < > 0.3 ALKPHOS 153* -- 122 < > = values in this interval not displayed. Lab 01/12/21 1741 INR 1.50 Assessment/Plan Mr. Louis Mccann is a 60 y.o. male with PMH of prostate cancer who present ed to for AMS. He is found to have UTI and is currently being treated with Ab x. Principal Problem: UTI (urinary tract infection) #01/13 updates - rad onc obtained patient consent for 5 once-daily treatments to the prostate u p-front - Urology and IR discussing placing right nephrostomy tube to drain hydrouretero nephrosis - holding chemo - iron studies pending - consulted ID for bacteriemia, appreciate recs #Acute metabolic encephalopathy -POA, afebrile -Likely secondary to underlying UTI -UA positive for 94 WBCs, nitrite positive, LE positive -1/2 blood cultures + for GNC, urine cultures showing 100K indigenous microorgan isms -MRI brain still pending -Continue with Zosyn (D3) #Complicated cystitis #Hydrourteronephrosis #Hematuria -UA positive for 94 WBCs, nitrite positive, LE positive -blood culture showed anaerobic gram neg cocci - ID consulted for bacteriemia, appreciate recs - urine culture positive for strep mitis -Renal ultrasound showing moderate right hydroureteronephrosis with soft tissue thickening around the right ureter. This could be malignant obstruction -Manzano placed this admission which shows stringy clots and hematuria - improving -Continue with Flomax -urology consulted, considering right nephrostomy tube in discussion with IR -In the meantime, continue with Zosyn #Normocytic normochromic anemia - likely iron deficiency - hgb trending down form 9.1 on admission to 7.4 today - elevated RCDW 16.3 - iron studies ordered - following #Hypercalcemia -Likely secondary to poor p.o. intake given AMS v. Hypercalcemia of malignancy -Ca 14>12.5. s/p calcitonin at [facility] -calcium today 11.1, Ionized calcium of 1.73 -PTH 24. PTHrP pending -completed [id number] calcitonin yesterday, improving, continue monitoring calcium -Continue with calcitonin today and IV fluids at 150 cc/hr -Daily BMP -repeat Calcium level this evening. If stays elevated, will give another dose of calcitonin. -If calcium does not improve, will consider initiating steroids #History of osteonecrosis of jaw -Secondary to bisphosphonate use -We will use calcitonin to bring calcium down rather than Zometa #Metastatic prostate cancer -Follows Dr. Peralta's -Continue with decreased dose of oxycodone 7.5 q4 prn (home dose 15 q4h PRN) and Emeterio 300 nightly (home dose TID) -C/w home carisoprodol muscle relaxant for spasms -Currently holding chemotherapy given underlying infection - CT sim completed, rad onc is starting 5 once-daily treatments to the prostate up-front due to recurrent hematuria #Anorexia -Secondary to underlying malignancy -Currently holding Marinol given encephalopathy DVT Prophylaxis: SCD's while in bed GI Prophylaxis: Not Indicated Functional Status: mildly impaired Code Status: Full Code Disposition: Plan discharge to: Home Estimated Discharge Date: TBD The patient was discussed with Vin Escobar MD who agrees with the assessme nt and plan as noted above. Signature: Lynnette Alvarez Date/Time: January 13, 2021 10:58 AM I have read/edited above note and discussed with the attending who is in agreeme nt with the above plan. -Patient is anemic w/ H/H drop to 7.4/22.7 down from 9.1/26.8 (baseline ~12.5) -Will send in anemia panel, B9 and B12. -Rad-onc planning on 5 sessions of radiation to prostate (M-F) for hematuria - awaiting CT A/P to better visualize hydro. Plan for possible NT by IR. -Will keep NPO and hold his AC -Folic acid <2.0. Will start on folate -B12 WNL -Iron panel looks like a mixture of ACD and Iron def anemia. Will hold off iron supplementation given ongoing bacteremia. Tinmarcial Brian Internal Medicine PGY-1 Pager: [phone] Please call or page for any questions Associated attestation - Vin Escobar MD - 01/13/2021 1:58 PM EDT I saw and evaluated the patient. I have reviewed the notes, assessments, and/or procedures performed by resident, I concur with her/his documentation of Jaime Mccann * Stanislav Paz MD - 01/13/2021 7:51 AM EDT Urology Progress Note Hospital Day #: 2 Interval Present History No acute events o/n. Pain is well-controlled. Manzano draining pink urine. Pt has been NPO since [place]. Cr uptrending; WBC downtrending. No fevers, chills, CP or SOB reported. Vital Signs: Temp (24hrs), Av.6 C, Min:36.3 C, Max:37.2 C Visit Vitals BP 133/75 (BP Location: Left arm, Patient Position: Lying) Pulse 96 Temp 37.2 C (Oral) Resp 17 SpO2 94% Intake/Output last 3 shifts: I/O last 3 completed shifts: In: 1400 [P.O.:100; I.V.:1050; IV Piggyback:250] Out: 2375 [Urine:2375] Diet: Diet Adult; NPO Physical Exam General: Resting comfortably in bed. NAD HEENT: NCAT CV: RRR Respiratory: Non-labored breathing, symmetric chest rise GI: Soft, non-tender, non-distended : manzano with pink urine Ext: WWP, Moving all extremities spontaneously Data Reviewed: BMP: Lab Results Component Value Date NA 135 (L) 01/13/2021 K 3.4 01/13/2021 CL 101 01/13/2021 BICARBONATE 24 01/13/2021 GLUCOSE 118 01/13/2021 BUN 12 01/13/2021 CREATININE 1.13 01/13/2021 BCR 10 01/13/2021 GFRAA 80 01/13/2021 GFRNONAA 69 01/13/2021 Lytes: Lab Results Component Value Date CALCIUM 11.1 (H) 01/13/2021 MG 1.7 01/12/2021 PHOS 2.4 (L) 01/12/2021 Hepatic Panel: Lab Results Component Value Date ALBUMIN 2.9 (L) 01/12/2021 ALKPHOS 122 01/12/2021 ALT 14 01/12/2021 AST 33 01/12/2021 PROT 5.9 (L) 01/12/2021 TBILI 0.3 01/12/2021 CBC: Lab Results Component Value Date WBC 14.4 (H) 01/13/2021 RBC 2.59 (L) 01/13/2021 HGB 7.4 (L) 01/13/2021 HCT 22.7 (L) 01/13/2021 PLT 391 01/13/2021 Coagulation: Lab Results Component Value Date INR 1.50 01/12/2021 Imaging: CT a/p w/o contrast (01/12/21)- R hydronephrosis appreciated with large ureteral lesion in the proximal right ur eter; stable L ureteral findings Assessment: Principal Problem: UTI (urinary tract infection) Louis Mccann is a 60 y.o. male with metastatic prostate cancer on systemic therapy admitted for AMS. Also has been having gross hematuria and found to hav e new right hydronephrosis in the setting of CT earlier this summer suggestive o f invasion towards the bladder neck. Planned to begin radiation to the pelvis. C T 01/13/21 shows worsening R hydronephrosis from previous scans as well as large ureteral lesion. Plan: -Plan for IR placement of R NT today -NPO; hold morning DVT ppx and AC -Monitor urine color -Continue care per primary team To be discussed with Dr. Greene. Please refer to the attending's addendum for fin al recommendations and management plans. Stanislav Paz PGY-1 Department of Urology Associated attestation - Georgi Greene MD - 01/17/2021 9:28 AM EDT I reviewed the above history and physical and agree with the assessment and plan . * Laly Crawford RN - 01/13/2021 1:42 AM EDT Results Ref. Range 01/13/2021 01:42 Calcium Ionized,W.B. Latest Ref Range: 1.13 - 1.32 mmol/L 1.73 () MD notified, no further actions at this time. * Lynne Chen RN - 01/13/2021 12:30 AM EDT Assumed care of patient from [id number]. Have read and agree with previous RN as sessment. Patient in bed with bed alarm on and son at bedside. Report given to oncoming RN. * Lars Chery - 01/12/2021 5:26 PM EDT Spiritual Care Progress Note Sailing Officer: Fr. Fadi Chery -- machine scallop cutter Patient Name: Louis Mccann Age: 60 y.o. Sex: male Room/Bed: 38966/1 Raquel Affiliation/Tradition: Episcoplian Admit Date: 01/11/2021 Referrals: Referral From: Rounding On Unit Referral To: Special Needs Bus Driver Clergy Contact Information: [id number] Spiritual Care Assessment Spouse/Significant Other Name/Relationship: His sonTobias was present Assessed Need for Visit: Adjustment/Coping Issues Patient Description: Discouraged, Physical Discomfort, In Pain Spiritual/Cultural/Social Issues Assessment: Louis feels lousy today. He son , Tobias, Said he had a lot of tests today and is exhausted. Tobias thought i t would be good to leave him a prayer pamphlet, And maybe come another day for conversation and prayer. I lift a copy of 'Day By Day'. The son was gracious a nd thank me for the visit. Spiritual Care Intervention: Affirmation, Family Support, Offer Raquel Symbols Spiritual Outcomes - Patient: Expressed feelings Spiritual Outcomes - Family: [place] comforted, accompanied, [place] heard, valued Spiritual Care Plan Goals of Care: Explore and identify unmet spiritual needs and provide/coordinate in order to contribute towards sense of peace. Outcome: unchanged Spiritual Care Follow Up Patient Follow-up Plan: Routine visit Family Follow-up Plan: Routine visit * Rukhsana Claros RN - 01/12/2021 3:24 PM EDT Case Management Screen & Assessment Patient Name: Louis Mccann Gender: male Date of : 1960 Admission Dx: UTI (urinary tract infection) [N39.0] Age: 60 y.o. Admission: 01/11/2021 4:34 PM Attending Provider: Debbi Amaro MD High Risk Criteria - Prior to Admission/Upon Arrival PLATFORM INSPECTOR-Type of Residence: Private Residence PLATFORM INSPECTOR- Home Care Services: No Limited Home Supports/Lives Alone?: No Multi trauma/Critical care/Step down admit?: No Head/Spinal cord injury?: No Self Pay: No Multiple ED visits?: No Related/Unplanned readmission within 30 days?: No Complex/New medical issues: Hypercalcemia, AMS Relevant comorbidities: Prostate ca, HLD, HTN Func/Cognitive/Behavorial deficit(s): Patient is independent with adl's at home Psychosocial considerations: patient lives at home with his son and dtr n law Screening Outcome Social Work Consult Needed?: No Further Case Management Needs?: Case Management Needs Chart Review PCP Verified?: Patient has PCP Prior to Admission: Functional/Environmental Assessment Bathing: Independent Dressing: Independent Toileting: Independent Medication administration: Independent Transfers: Independent Ambulation: Independent Meal preparation: Independent Number of stairs into home: 4 Case Management Re-Review Case Management Re-Review Needed?: Yes Case Management Re-Review Date: 01/13/21 Discharge Planning Living Arrangements: Spouse/significant other Support Systems: Spouse/significant other Type of Residence: Private residence Is this patient appropriate for transfer to [facility]?: No Patient/family informed of need for discharge planning?: Yes Patient expects to be discharged to:: home Patient/Agent informed of choice and given written list?: Patient/agent declined list Actual discharge location: Home-No Needs Does the patient need discharge transport arranged?: No Note: Chart reviewed. CM met with patient's son - patient was at a procedure. P er son patient is independent with all adl's - Patient lives with his son and d tr n law. Son Tobias reports that he is a design printing machine set up operator and can be home as need to assist with patient - at this time there are no CM needs identified - will follow. Rukhsana Claros * Ashley Torres MD - 01/12/2021 12:20 PM EDT Images from the original note were not included. Hematology Oncology Inpatient Progress Note Subjective Patient seen and examined at bedside this morning. He is AAOx1-2. Does not remem kristine how he got to the hospital however he states that he has been having micturi tion. He is also having some hematuria since manzano was placed in addition to kriss ts. Review of Systems Constitutional: Positive for activity change. Negative for appetite change. Respiratory: Negative for apnea, shortness of breath and wheezing. Cardiovascular: Negative for chest pain and palpitations. Gastrointestinal: Negative for abdominal distention, abdominal pain and vomiting . Genitourinary: Positive for hematuria. Negative for difficulty urinating. Musculoskeletal: Negative for arthralgias. Skin: Negative for color change and wound. Neurological: Negative for dizziness. Psychiatric/Behavioral: Negative for agitation and behavioral problems. Objective Temp: [36.4 C (97.5 F)-36.9 C (98.4 F)] 36.8 C (98.2 F) Pulse: [77-106] 97 Resp: [14-17] 17 BP: (96-126)/(68-89) 126/89 SpO2: [94 %-96 %] 96 % O2 Therapy: Room air Intake/Output Summary (Last 24 hours) at 01/12/2021 1220 Last data filed at 01/12/2021 0800 Gross per 24 hour Intake 2070 ml Output 3600 ml Net -1530 ml I/O last 3 completed shifts: In: 2069 [P.O.:120; I.V.:1800; IV Piggyback:150] Out: 3050 [Urine:3050] I/O this shift: In: - Out: 550 [Urine:550] Last bowel movement: 01/11/21 Physical Exam Constitutional: No distress. Alert but confused. AAOx1 HENT: Mouth/Throat: Mucous membranes are moist. Eyes: Conjunctivae are normal. No scleral icterus. Cardiovascular: Normal rate, regular rhythm, normal heart sounds and normal puls es. Exam reveals no gallop. Pulmonary/Chest: Effort normal. No respiratory distress. He has no wheezes. He e xhibits no tenderness. Abdominal: He exhibits no distension and no mass. There is no guarding. Genitourinary: Genitourinary Comments: Manzano showing hematuria and clots Musculoskeletal: General: No tenderness. Cervical back: No tenderness. Right lower leg: No edema. Left lower leg: No edema. Neurological: AAOx1. Oriented to self and answers questions appropriately Skin: Skin is warm. No rash noted. Lines, Tubes, Monitors & Restraints Description Still Required? Comments PIV [] Yes [] No Manzano [] Yes [] No Total Days of Anti-infective Therapy: 2 Anti-infectives (From admission, onward) Start Dose/Rate Route Frequency Ordered Stop 01/11/21 1800 piperacillin-tazobactam (ZOSYN) IVPB 3.375 g (premix) 3.375 g 12.5 mL/hr over 4 Hours Intravenous Every 8 hours 01/11/21 1721 01/14/21 1759 Laboratory Data (Most Recent in Past 3 Days) Lab 01/11/21 1045 01/11/21 1045 01/12/21 0111 WBC 19.4* < > 13.5* HGB 9.1* < > 7.7* HCT 26.8* < > 23.7* MCV 87.2 < > 87.9 PLT 438* -- 388 < > = values in this interval not displayed. Lab 01/11/21 1045 01/11/21 1045 01/11/21 18301/11/21183301/12/21 0111 NA 133* < > 137 < > 137 K 3.5 < > 2.7* < > 3.6 CL 89* < > 97* < > 100 BICARBONATE 19* < > 21* < > 26 GLUCOSE 118 < > 114 < > 119 BUN 21 < > 18 < > 16 CREATININE 1.25* -- 0.96 -- 0.93 < > = values in this interval not displayed. Lab 01/11/21 1124 01/11/21183301/12/21 011 CALCIUM -- < > 12.5* MG 2.0 -- 1.7 PHOS 3.9 -- 2.4* < > = values in this interval not displayed. Lab 01/11/21 1045 NEUTOPHILPCT 86 LYMPHOPCT 6 MONOPCT 6 EOSPCT 0 Lab 01/11/21 1045 01/11/215 01/12/21 0111 PROT 7.2 < > 5.9* ALBUMIN 3.0* < > 2.9* AST 42* < > 33 ALT 16 < > 14 TBILI 0.4 < > 0.3 ALKPHOS 153* -- 122 < > = values in this interval not displayed. XR Chest Frontal Only Result Date: 01/11/2021 PROCEDURE INFORMATION: Exam: XR Chest Exam date and time: 01/11/2021 5:51 PM Age: 60 years old Clinical indication: Other: Procalcitonin elevated, rule out pna T ECHNIQUE: Imaging protocol: XR of the chest. Views: 1 view. COMPARISON: CR Chest , 2 view PA, Lat 11/08/2020 7:12 PM FINDINGS: Tubes, catheters and devices: Port catheter remains in place. Lungs: Low lung volumes.. No consolidation. Pleural spaces: Unremarkable. No pleural effusion. No pneumothorax. Heart/Mediastinum: U nremarkable. No cardiomegaly. Bones/joints: Unremarkable. IMPRESSION: No acute c ardiopulmonary abnormality. THIS DOCUMENT HAS BEEN ELECTRONICALLY SIGNED BY CALLIE VILLEGAS MD US Renal or Aorta Complete Result Date: 01/12/2021 CLINICAL INDICATION: rule out bilateral hydronephrosis / pyelonephritis. TECHNIQ UE: Multiple sonographic real-time images of the kidneys and bladder were obtain ed. COMPARISON: None available at the time of this dictation. FINDINGS: The righ t kidney measures 10.5 cm in length, and the left kidney measures 11.6 cm in elijah h. The right kidney is normal in size, contour, cortical thickness, and echoge nicity. Moderate right hydroureteronephrosis. Soft tissue thickening is noted hernandez rrounding the right ureter measuring 10.2 x 4.2 cm No renal lesion is identified . No perinephric fluid collection is seen. The left kidney is normal in size, c ontour, cortical thickness and echogenicity. No hydronephrosis is identified. No focal renal lesion is identified. No perinephric fluid collection is seen. F oley catheter is noted in the bladder. IMPRESSION: Moderate right hydroureteronephrosis with soft tissue thickening asha rounding the right ureter measuring 10.2 x 4.2 cm x 4.[address] IVP is recommen ded for further evaluation. XR Abdomen AP Supine and AP Erect Result Date: 12/14/2020 INDICATION: abdominal pain with inability to tolerate PO intake TECHNIQUE: AP an d supine views of the abdomen were obtained COMPARISON: No prior studies for com parison FINDINGS: LINES AND TUBES: None ABDOMEN: Nonobstructive bowel gas patter n. Moderate amount stool noted throughout the colon. Phleboliths noted in the pe lvis. No evidence of pneumoperitoneum detected. VISIBLE CHEST: Visualized lung b ases are clear. BONES: Multiple sclerotic lesions noted throughout the axial and appendicular skeleton consistent with patient's history of prostate cancer. IMPRESSION: Nonobstructive bowel gas pattern. Moderate amount stool noted in the colon. Multiple sclerotic lesions detected throughout the pelvis and spine. Thi s is consistent with patient's history of prostate cancer. Assessment/Plan Mr. Louis Mccann is a 60 y.o. male with PMH of prostate cancer who present ed to for AMS. He is found to have UTI and is currently being treated with Ab x. Principal Problem: UTI (urinary tract infection) #Acute metabolic encephalopathy -POA, afebrile -Likely secondary to underlying UTI -UA positive for 94 WBCs, nitrite positive, LE positive -1/2 blood cultures + for GNC, urine cultures showing 100K indigenous microorgan isms -MRI brain still pending -Continue with Zosyn (D2) #Complicated cystitis #Hydrourteronephrosis #Hematuria -UA positive for 94 WBCs, nitrite positive, LE positive -Urine culture and blood cultures pending -Renal ultrasound showing moderate right hydroureteronephrosis with soft tissue thickening around the right ureter. This could be malignant obstruction -Manzano placed this admission which shows stringy clots and hematuria. -Continue with Flomax -Will consult urology. Appreciate their -In the meantime, continue with Zosyn #Hypercalcemia -Likely secondary to poor p.o. intake given AMS v. Hypercalcemia of malignancy -Ca 14>12.5. s/p calcitonin at [facility] -Corrected calcium 13.4, Ionized alcium of 1.75 -PTH 24. PTHrP pending -We will give calcitonin again today -Continue with calcitonin today and IV fluids at 150 cc/hr -Daily BMP -Will repeat another Calcium level this evening. If stays elevated, will give an other dose of calcitonin. -If calcium does not improve, will consider initiating steroids #History of osteonecrosis of jaw -Secondary to bisphosphonate use -We will use calcitonin to bring calcium down rather than Zometa #Metastatic prostate cancer -Follows Dr. Peralta's -Continue with decreased dose of oxycodone 7.5 q4 prn (home dose 15 q4h PRN) and Emeterio 300 nightly (home dose TID) -C/w home carisoprodol muscle relaxant for spasms -Currently holding chemotherapy given underlying infection -Will get Rad-onc on board as well. Plan for CT sim today #Anorexia -Secondary to underlying malignancy -Currently holding Marinol given encephalopathy DVT Prophylaxis: SCD's while in bed GI Prophylaxis: Not Indicated Functional Status: mildly impaired Code Status: Full Code Disposition: Plan discharge to: Home Estimated Discharge Date: The patient was discussed with Debbi Amaro MD who agrees with the assessment a nd plan as noted above. Ashley Torres Internal Medicine PGY-1 Pager: [phone] Please call or page for any questions Signature: Ashley Torres MD Date/Time: January 12, 2021 12:20 PM Associated attestation - Debbi Amaro MD - 01/12/2021 3:48 PM EDT ATTENDING ATTESTATION: ADDENDUM: I have personally met with and examined the patient. I have personally reviewed the clinical findings and have discussed the above history, exam findi ngs, pertinent imaging, problem list, assessment and plan with the hematology-on cology team while seen together on rounds and I agree with the exam findings and treatment plan as documented by the Oncology Team. I have reviewed (not edited) the note below. Refer to my HnP. Debbi Amaro MD Clinical Automatic Buffer Division of Hematology & Medical Oncology Department of Medicine [facility] * Jeannette Braxton, RD - 01/12/2021 8:21 AM EDT Department of Food and Nutrition Nutritional Evaluation and Care Plan MST5: >15 kg weight loss and decreased intake Basic Evaluation Patient is a 60 y.o. male, admitted on [id number] with a diagnosis of UTI (urinary t ract infection). Past Medical History: Past Medical History: Diagnosis Date Bone cancer Bone metastases Cervical spondylosis 09/14/2017 Elevated PSA Hx antineoplastic chemotherapy Hx of radiation therapy 03/21/2016 3000 cGy/ 10 fractions to right shoulder Hyperlipidemia Hypertension Left flank pain started 04/04/16 Low back pain Prostate cancer Reactive depression (situational) 12/22/2020 Ulnar neuropathy at elbow of right upper extremity 10/01/2017 Past Surgical History: Past Surgical History: Procedure Laterality Date ELBOW SURGERY Right 04/2019 left wrist surgery PORTACATH PLACEMENT 02/11/2016 GA REVISE ULNAR NERVE AT WRIST Right 11/30/2017 Procedure: RIGHT SIDE ULNAR NERVE DECOMPRESSION ; Surgeon: Gael Pimentel MD ; Location: [address]; Service: Neurosurgery; Laterality: Right; TONSILLECTOMY Home Medications: Prior to Admission medications Medication Sig Start Date End Date Taking? Authorizing Provider aspirin 81 MG tablet Take 81 mg by mouth daily Patient not taking: Reported on 12/28/2020 Historical Provider, calcium carbonate (OS-EDWIN) 600 MG TABS Take 600 mg by mouth daily Patient not taking: Reported on 12/28/2020 Historical Provider, carisoprodol (SOMA) 350 MG tablet Take 350 mg by mouth Four times daily as neede d for Muscle spasms. Historical Provider, chlorhexidine (PERIDEX) 0.12 % solution 02/04/19 Historical Provider, clobetasol (TEMOVATE) 0.05 % ointment Apply topically Two Times Daily 06/04/18 S lauren Walker MD dronabinol (MARINOL) 10 MG capsule TAKE ONE CAPSULE BY MOUTH TWO TIMES A DAY MAX IMUM DAILY DOSE 2 Patient not taking: Reported on 12/28/2020 01/01/19 Historical Provider, fluocinolone (SYNALAR) 0.025 % ointment APPLY TO PSORIATIC PLAQUES ON ELBOWS ONC E DAILY 01/18/18 Historical Provider, gabapentin (NEURONTIN) 300 MG capsule Take 1 capsule by mouth Three times daily Take 2 caps tid 600 mg per dose 11/01/17 10/31/18 Mike Walker MD Lupron Depot (3-Month) 22.5 MG Intramuscular Kit (leuprolide acetate) Inject 22. 5 mg into the muscle every 3 (three) months Historical Provider, Multiple Vitamins-Minerals (CERTAVITE/ANTIOXIDANTS) TABS Take by mouth Patient not taking: Reported on 12/28/2020 Historical Provider, ondansetron (ZOFRAN) 8 MG tablet Take 1 tablet by mouth every 8 (eight) hours as needed for Nausea or Vomiting. 03/28/16 Óscar Peralta MD Ondansetron HCl 8 MG Oral Tablet (ZOFRAN) Take 1 tablet by mouth every 8 (eight) hours as needed for Nausea or Vomiting 11/23/20 Óscar Peralta MD oxyCODONE HCl 15 MG Oral Tablet (ROXICODONE) Take 1 tablet by mouth every 4 (fou r) hours as needed for PainCancer related pain, Max Daily Dose: 90 mg Indicatio ns: Chronic Pain 12/10/20 01/09/21 Yumiko Aguilar MD MPH PEG 3350 17 GM/SCOOP Oral Powder (MIRALAX) Take 17 g by mouth daily 12/14/20 Robert Genao, CHIEF CONTROLLER TOWER Prochlorperazine Maleate 10 MG Oral Tablet (COMPAZINE) Take 1 tablet by mouth ev juan 6 (six) hours as needed (Nausea/Vomiting) 11/23/20 Óscar Peralta MD Self-Cath Coude Tip Use as directed. DAILY 11/29/20 Georgi Greene MD Senna-Docusate Sodium 8.6-50 MG Oral Tablet (SENOKOT-S) Take 1 tablet by mouth d aily 12/14/20 12/13/21 Willow Genao NP SM Senna Laxative 8.6 MG Oral Tablet Take 1 tablet by mouth daily 12/14/20 Hist orical MD Hiram Syringe/Needle (Disp) 26G X 5/8" 1 ML Use as directed. Urology kit 1 11/06/19 Dami Byrd MD SYRINGE/NEEDLE, DISP, 1 ML 26G X 5/8" 1 ML MISC Use as directed. Urology Kit 1 Evelin Liz NP tamsulosin HCl (FLOMAX) 0.4 MG CAPS Take 0.4 mg by mouth daily. Historical Pr MD angelita Xtandi 40 MG Oral Capsule (Enzalutamide) TAKE 4 CAPSULES BY MOUTH EVERY DAY Patient not taking: Reported on 12/28/2020 06/14/20 Willow Genao NP Multidisciplinary Problems: Principal Problem: UTI (urinary tract infection) Current Diet/Tube Feed/TPN Order: No diet orders on file Active, Scheduled Medications: Current Facility-Administered Medications Medication Dose Route Frequency Provider Last Rate Last Admin acetaminophen (TYLENOL) tablet 650 mg 650 mg Oral Q4H PRN LILY Barr aspirin chewable tablet 81 mg 81 mg Oral Daily LLIY Rivera calcitonin (MIACALCIN) injection 200 Units 200 Units Intramuscular Once Reid Barajas MD carisoprodol (SOMA) tablet 350 mg 350 mg Oral TID PRN LILY Rivera docusate sodium (COLACE) capsule 100 mg 100 mg Oral BID Debbi Amaro MD 100 mg at 01/11/212056 gabapentin (NEURONTIN) capsule 300 mg 300 mg Oral Nightly Debbi Amaro MD 300 mg at 01/11/212056 NaCl infusion 0.9 % Intravenous Continuous Reid Barajas MD ondansetron (ZOFRAN) tablet 8 mg 8 mg Oral Q8H PRN JACLYN Rivera oxyCODONE (ROXICODONE) immediate release tablet 7.5 mg 7.5 mg Oral Q4H P RN LILY Rivera 7.5 mg at 01/12/21 0353 piperacillin-tazobactam (ZOSYN) IVPB 3.375 g (premix) 3.375 g Intravenou s Q8H LILY Rivera 12.5 mL/hr at 01/12/21 0110 3.375 g at 01/12/21 01 10 polyethylene glycol (MIRALAX) packet 17 g 17 g Oral Daily Debbi Amaro MD potassium chloride (KLOR-CON) packet 40 mEq 40 mEq Oral Once Darryl sanabria DO tamsulosin (FLOMAX) capsule 0.4 mg 0.4 mg Oral Daily LILY Rivera Allergies: Patient has no known allergies. Cultural/Zoroastrian/Ethnic food preferences: None identified Recent Labs Lab 01/12/21 0111 NA 137 CL 100 BUN 16 GLUCOSE 119 K 3.6 BICARBONATE 26 CREATININE 0.93 CALCIUM 12.5* MG 1.7 PHOS 2.4* ALBUMIN 2.9* Interview: Pt admitted from cancer center for AMS. Mr. Mccann has a diagnosis of metastatic prostate cancer with mets to bone. He is currently receiving casod ex, taxotere and lupron for treatment. RD briefly spoke with pt this AM. No diet ordered, he did not receive a breakfas t tray. Pt reports he would like to eat but is not sure he is allowed to. Endors es difficulty chewing, missing multiple teeth. Per weight hx, pt has lost a significant amount of weight within 6 months. Labs and Meds reviewed; phos low. Ordered for marinol. Learning or discharge needs identified: TBD Height: 172.7 cm Weight: 72.1 kg Weight Method: Body Mass Index: 24.18 kg/sq m IBW Range (kg): 70-77 kg Weight change: Vitals - 1 value per visit Weight (kg) 11/05/2019 88.724 kg 02/19/2020 94.711 kg 02/25/2020 95.074 kg 05/21/2020 96.616 kg 08/17/2020 94.348 kg 08/20/2020 97.07 kg 11/16/2020 87.544 kg 11/24/2020 86.183 kg 12/01/2020 84.913 kg 12/14/2020 78.472 kg 12/28/2020 78.926 kg 01/11/2021 72.122 kg -6.4 kg x 1 month (8.2%) , -24.9 kg x 5 months (25.6%) Obesity or underweight? No Malnutrition Identified: Suspect pt qualifies for malnutrition, however unable t o obtain intake hx from pt at the moment due to ams. He has had significant weig ht loss. Skin:skin tear to right elbow Nutrition Obstacles: Inadequate PO Intake, Mental State, Metabolic Stress and Po or Dentition Energy/Protein Requirement based on: 72.1 kg (admit wt) Current Protein Needs: 1.2-1.5 g per kg body wt. = 86-108 g/d Current Energy Needs: 30-35 kcal per kg body wt. = 4630-0273 kcal/d Estimated Fluid Needs: 1mL/kcal or per team I/O last 3 completed shifts: In: 2069 [P.O.:120; I.V.:1800; IV Piggyback:150] Out: 3049 [Urine:3050] No intake/output data recorded. Nutrition Diagnostic Statement(s): Patient is at nutritional risk. Current risk is High. Patient is found to have inadequate oral food/beverage intake related to confusi on and/or mental status change and difficulty chewing as evidenced by involuntar y weight loss. Nutrition Intervention(s): 1.Mechanical ground diet with thin liquids- 2/2 difficulty chewing 2.Ensure + 3. Consult FACILITIES MAINTENANCE WORKER Nutrition Goal(s)/Outcome(s): Patient will tolerate 75-100% q meal prior to discharge Patient will maintain weight ~72 kg during admission Refer to Patient Education for current learning assessment and patient education needs. Refer to Care Plan for Interdisciplinary Care Plan documentation. Recommendations: Consult FACILITIES MAINTENANCE WORKER Start on mechanical ground diet with thin liquids Ensure + TID -offer and encourage between meals Weights MWF Appetite stimulant Replace phos Monitoring/Evaluation: Labs, Pt care rounds, Weight, I&O and PO intake * Timo Moreno RN - 01/11/2021 10:07 PM EDT Pt and family at bedside refusing to go to renal US at this time. Will revaluate in AM. Pt also refusing PO potassium elxir, is receiving IV replacement. RICKEY ZAPIEN made aware, will continue to monitor. * Caro Hanley RN - 01/11/2021 6:13 PM EDT Images from the original note were not included. If wound was present on admission, this documentation was sent to attending prov ider for cosignature. documented in this encounter H&P Notes * Beka Castro NP - 01/13/2021 1:48 PM EDT Interventional Radiology Preprocedure HISTORY AND PHYSICAL Diagnosis: Hydroureteronephrosis Patient Active Problem List Diagnosis Spine metastasis Prostate cancer metastatic to bone Elevated PSA Urinary retention Left flank pain Palliative care by specialist Cancer related pain Erectile dysfunction Cervical spondylosis Numbness of right hand Cervical spinal stenosis Ulnar neuropathy at elbow of right upper extremity Gross hematuria Carpal tunnel syndrome of right wrist Chronic fatigue syndrome Essential hypertension Neuropathy Obstructive uropathy Osteonecrosis of jaw Psoriasis Reactive depression (situational) Pain due to neoplasm Malignant tumor of prostate Secondary malignant neoplasm of bone Lesion of ulnar nerve UTI (urinary tract infection) History of present illness: Patient is a 60 y.o. male who is seen for image guid ed right nephrostomy tube placement. Past Medical history: Past Medical History: Diagnosis Date Bone cancer Bone metastases Cervical spondylosis 09/14/2017 Elevated PSA Hx antineoplastic chemotherapy Hx of radiation therapy 03/21/2016 3000 cGy/ 10 fractions to right shoulder Hyperlipidemia Hypertension Left flank pain started 04/04/16 Low back pain Prostate cancer Reactive depression (situational) 12/22/2020 Ulnar neuropathy at elbow of right upper extremity 10/01/2017 Past Surgical history: Past Surgical History: Procedure Laterality Date ELBOW SURGERY Right 04/2019 left wrist surgery PORTACATH PLACEMENT 02/11/2016 GA REVISE ULNAR NERVE AT WRIST Right 11/30/2017 Procedure: RIGHT SIDE ULNAR NERVE DECOMPRESSION ; Surgeon: Gael Pimentel MD ; Location: [address]; Service: Neurosurgery; Laterality: Right; TONSILLECTOMY Family History: Family History Problem Relation Age of Onset Cancer Mother Cancer Maternal Grandmother REVIEW OF SYSTEMS Pertinent items are noted in HPI. Current medications: Current Facility-Administered Medications Medication Dose Route Frequency Provider Last Rate Last Admin acetaminophen (TYLENOL) tablet 650 mg 650 mg Oral Q4H PRN LILY Barr carisoprodol (SOMA) tablet 350 mg 350 mg Oral TID PRN LILY Rivera docusate sodium (COLACE) capsule 100 mg 100 mg Oral BID Debbi Amaro MD 100 mg at 01/13/21 0804 gabapentin (NEURONTIN) capsule 300 mg 300 mg Oral Nightly Debbi Amaro MD 300 mg at 01/12/21 2123 NaCl infusion 0.9 % Intravenous Continuous Ashley Torres MD 150 mL/hr at 01/13/21 0743 Restarted at 01/13/21 0743 ondansetron (ZOFRAN) tablet 8 mg 8 mg Oral Q8H PRN JACLYN Rivera oxyCODONE (ROXICODONE) immediate release tablet 7.5 mg 7.5 mg Oral Q4H P RN Ashley Torres MD 7.5 mg at 01/13/21 0813 piperacillin-tazobactam (ZOSYN) IVPB 3.375 g (premix) 3.375 g Intravenou s Q8H Ashley Torres MD 12.5 mL/hr at 01/13/21 1036 3.375 g at 01/13/21 1036 polyethylene glycol (MIRALAX) packet 17 g 17 g Oral Daily Debbi Amaro MD 17 g at 01/12/21 1110 potassium chloride (KLOR-CON) packet 40 mEq 40 mEq Oral Once Darryl sanabria DO tamsulosin (FLOMAX) capsule 0.4 mg 0.4 mg Oral Daily LILY Rivera 0.4 mg at 01/13/21 0804 Allergies: No Known Allergies Problems with sedation/anesthesia? no Potential Drug/ Sedative Interaction?no PHYSICAL EXAM Vitals: Visit Vitals BP 118/77 (BP Location: Right arm, Patient Position: Lying) Pulse 92 Temp 36.5 C (97.7 F) (Oral) Resp 17 SpO2 97% Exam: General Appearance: No apparent distress Airway: II (hard and soft palate, upper portion of tonsils and uvula visible) Lungs: Clear to auscultation bilaterally, respirations unlabored Heart: Regular rate and rhythm ASA Physical Status Classification: ASA 3 - Patient with moderate systemic disea se with functional limitations Local/Moderate Sedation Rationale: Pain Control Procedure: Image guided right nephrostomy tube placement. DAY OF SURGERY VERIFICATION: There have been no significant clinical changes sin ce the completion of the above H&P. Beka Castro [employer]IEF CONTROLLER TOWER-C Interventional Radiology * Lalo Thacker MBBS - 01/11/2021 7:43 PM EDT History & Physical Patient Louis Mccann PCP Fabian Infante MD Admission Date 01/11/2021 Chief Complaint/Reason for Admission: Louis is coming in today as a direct admit from [facility] for altered ment al status. Subjective History of Presenting Illness Mr. Louis Mccann is a 60 y.o. male with a past medical history of metastat ic prostate cancer to bone s/p Casodex, Taxotere and Lupron, hypertension, hyper lipidemia presented to the [facility] [place] for chemotherapy, but was found to be a ltered and was direct admitted to medicine. Major of the history was obtained from patient's son who was at bedside. He men tioned that his father has been more confused lately, they contacted his primary , who recommended to go to [facility], but patient refused at the time. Today he was supposed to get his regular chemo at [facility], where he was fo und to be confused, altered. His chemotherapy was deferred at this time suspect ing an infection. At the time, pain hemodynamically stable albeit mild tachycardia. Pulmonary lab s showed leukocytosis of 19.4 (neutrophil predominance), platelets of 438, BMP w as significant for hypercalcemia of 14, creatinine 1.25 (baseline~0.8), bicarb o f 19, anion gap of 25, lactic acid 1.4 and glucose 118. Procalcitonin was eleva lissa to 24.13, UA was significant for UTI, cultures were sent. Blood cultures we re sent and patient was started on Zosyn and 1 L NS bolus was given. He was als o given to 288 units of calcitonin for hypercalcemia and started on 100 mL/h NS. EKG WNL. I evaluated the patient after he was transferred to the floors, he was cooperati ve, in no acute distress, oriented to only time and self. He was hemodynamicall y stable with pressures 120/82, mildly tachycardic to 101, saturating well on ro om air. Ordered a chest x-ray, which showed no acute cardiopulmonary abnormalit y. Active Ambulatory Problems Diagnosis Date Noted 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 Prostate cancer metastatic to bone 02/15/2016 Elevated PSA Urinary retention 02/23/2016 Left flank pain Palliative care by specialist 06/07/2016 Cancer related pain 11/29/2016 Erectile dysfunction 08/01/2017 Cervical spondylosis 09/14/2017 Numbness of right hand 09/14/2017 Cervical spinal stenosis 09/14/2017 Ulnar neuropathy at elbow of right upper extremity 10/01/2017 Gross hematuria 12/01/2020 Carpal tunnel syndrome of right wrist 12/22/2020 Chronic fatigue syndrome 12/22/2020 Essential hypertension 12/22/2020 Neuropathy 12/22/2020 Obstructive uropathy 12/22/2020 Osteonecrosis of jaw 12/22/2020 Psoriasis 12/22/2020 Reactive depression (situational) 12/22/2020 Pain due to neoplasm 12/22/2020 Malignant tumor of prostate 12/22/2020 Secondary malignant neoplasm of bone 12/22/2020 Lesion of ulnar nerve 12/22/2020 Resolved Ambulatory Problems Diagnosis Date Noted Prostate cancer 02/23/2016 Past Medical History: Diagnosis Date Bone cancer Bone metastases Hx antineoplastic chemotherapy Hx of radiation therapy 03/21/2016 Hyperlipidemia Hypertension Low back pain Past Surgical History TONSILLECTOMY left wrist surgery GA REVISE ULNAR NERVE AT WRIST ELBOW SURGERY PORTACATH PLACEMENT Social History He is Single. He lives with his family. He reports that he quit smoking about 46 years ago. He has never used smokeless tobacco. He reports that he does not dri nk alcohol and does not use drugs. Travel: No recent history of long distance travel. Family History His family history includes Cancer in his maternal grandmother and mother. Home Medications Medication Sig aspirin 81 MG tablet Take 81 mg by mouth daily Patient not taking: Reported on 12/28/2020 calcium carbonate (OS-EDWIN) 600 MG TABS Take 600 mg by mouth daily Patient not taking: Reported on 12/28/2020 carisoprodol (SOMA) 350 MG tablet Take 350 mg by mouth Four times daily as neede d for Muscle spasms. chlorhexidine (PERIDEX) 0.12 % solution clobetasol (TEMOVATE) 0.05 % ointment Apply topically Two Times Daily dronabinol (MARINOL) 10 MG capsule TAKE ONE CAPSULE BY MOUTH TWO TIMES A DAY MAX IMUM DAILY DOSE 2 Patient not taking: Reported on 12/28/2020 fluocinolone (SYNALAR) 0.025 % ointment APPLY TO PSORIATIC PLAQUES ON ELBOWS ONC E DAILY gabapentin (NEURONTIN) 300 MG capsule Take 1 capsule by mouth Three times daily Take 2 caps tid 600 mg per dose Lupron Depot (3-Month) 22.5 MG Intramuscular Kit (leuprolide acetate) Inject 22. 5 mg into the muscle every 3 (three) months Multiple Vitamins-Minerals (CERTAVITE/ANTIOXIDANTS) TABS Take by mouth Patient not taking: Reported on 12/28/2020 ondansetron (ZOFRAN) 8 MG tablet Take 1 tablet by mouth every 8 (eight) hours as needed for Nausea or Vomiting. Ondansetron HCl 8 MG Oral Tablet (ZOFRAN) Take 1 tablet by mouth every 8 (eight) hours as needed for Nausea or Vomiting oxyCODONE HCl 15 MG Oral Tablet (ROXICODONE) Take 1 tablet by mouth every 4 (fou r) hours as needed for PainCancer related pain, Max Daily Dose: 90 mg Indicatio ns: Chronic Pain PEG 3350 17 GM/SCOOP Oral Powder (MIRALAX) Take 17 g by mouth daily Prochlorperazine Maleate 10 MG Oral Tablet (COMPAZINE) Take 1 tablet by mouth ev juan 6 (six) hours as needed (Nausea/Vomiting) Self-Cath Coude Tip Use as directed. DAILY Senna-Docusate Sodium 8.6-50 MG Oral Tablet (SENOKOT-S) Take 1 tablet by mouth d aily SM Senna Laxative 8.6 MG Oral Tablet Take 1 tablet by mouth daily Syringe/Needle (Disp) 26G X 5/8" 1 ML Use as directed. Urology kit 1 SYRINGE/NEEDLE, DISP, 1 ML 26G X 5/8" 1 ML MISC Use as directed. Urology Kit 1 tamsulosin HCl (FLOMAX) 0.4 MG CAPS Take 0.4 mg by mouth daily. Xtandi 40 MG Oral Capsule (Enzalutamide) TAKE 4 CAPSULES BY MOUTH EVERY DAY Patient not taking: Reported on 12/28/2020 Allergies: Patient has no known allergies. Review of Systems Unable to perform ROS: Mental status change Objective Temp: [36.4 C (97.5 F)-36.9 C (98.4 F)] 36.4 C (97.5 F) Pulse: [77-111] 106 Resp: [14-16] 16 BP: (96-129)/(68-87) 105/70 SpO2: [94 %-96 %] 94 % O2 Therapy: Room air Physical Exam Constitutional: He appears ill. No distress. HENT: Head: Normocephalic and atraumatic. Mouth/Throat: Mucous membranes are dry. Oropharynx is clear. Eyes: No scleral icterus. Neck: Negative Kernig/Brudzinski sign Cardiovascular: Regular rhythm and normal heart sounds. Tachycardia present. Exa m reveals no gallop. No murmur heard. Pulmonary/Chest: Effort normal and breath sounds normal. No respiratory distress . He has no rales. Abdominal: Soft. Bowel sounds are normal. He exhibits no mass. There is no abdom inal tenderness. There is no guarding. Musculoskeletal: General: No swelling, tenderness or signs of injury. Normal range of motion. Cervical back: Normal range of motion and neck supple. No rigidity. Right lower leg: No edema. Left lower leg: No edema. Comments: Diffuse point tenderness over multiple bony prominences noted Neurological: He is disoriented. Skin: Skin is warm and dry. Capillary refill takes less than 2 seconds. No lesio n and no rash noted. Nursing note and vitals reviewed. Laboratory Data CBC: 01/11/21 1045 12/20/20 1136 12/14/20 1040 WBC 19.4* 12.7* 10.0 RBC 3.07* 3.19* 3.52* HGB 9.1* 9.8* 11.2* HCT 26.8* 29.3* 32.8* PLT 438* 428* 506* BMP: 01/11/21 1834 01/11/21 1045 12/20/20 1136 NA 137 133* 134* K 2.7* 3.5 3.6 CL 97* 89* 96* BICARBONATE 21* 19* 23 GLUCOSE 114 118 146* BUN 18 21 10 CREATININE 0.96 1.25* 1.28* BCR 19 17 8 OSMOLALITY 287 280 280 GFRAA >90 71 69 GFRNONAA 88 61 59* Blood Cx: No results found for this visit on 01/11/21. Assessment & Plan Mr. Louis Mccann is a 60 y.o. male who is here from the cancer center for altered mental status and found to have a complicated UTI. #Acute metabolic encephalopathy -Likely secondary to complicated cystitis vs progression of cancer vs CVA vs hyp ercalcemia -Clinically did not appear meningitic, will order MRI brain with and without con trast to rule out stroke/mets. #Complicated cystitis -Afebrile, not in sepsis -Patient is high risk for resistant organisms due to prostate cancer and intermi ttent self-catheterization -urine culture sent, blood cultures obtained and started on Zosyn. (Discussed th antibiotic stewardship pharmacy who recommended Zosyn over ceftriaxone) -Order renal ultrasound to rule out hydronephrosis /eval for pyelonephritis #Hypercalcemia -Likely due to osteolytic bone mets vs hyperparathyroidism -Calcitonin 288 MCG given x1 and being fluid resuscitated, will monitor BMP/CMP q12h and to be calcitonin q12h if needed -PTH and PTHrp pending #Metastatic prostate cancer -Dr. Peralta's patient, chemotherapy deferred today due to acute presentation -dosed down oxycodone and gabapentin due to encephalopathy -Continue home carisoprodol muscle relaxant for spasms -Patient usually self caths at home, Manzano placed for now, continue Flomax -Resumption of chemotherapy per Onc team #Anorexia -Likely secondary to cancer/chemotherapy -Was on Marinol at home, discontinued due to encephalopathy DVT Prophylaxis: SCD's while in bed GI Prophylaxis: Not Indicated Disposition: Will admit to inpatient status as he meets the clinical criteria an d is expected to stay for >2 midnights based on the current severity of the disease Code Status: Full code (confirmed with HCP and pt) The patient was discussed with Debbi Amaro MD who agrees with the assessment a nd plan as noted above. Signature: Lalo Thacker MBBS Date/Time: January 11, 2021 Associated attestation - Debbi Amaro MD - 01/12/2021 12:04 PM EDT ATTENDING H & P NOTE: ADDENDUM: I have personally met with and examined the patient. I have personally reviewed the clinical findings and have discussed the above history, exam findi ngs,radiology findings, problem list, assessment and plan with the admitting res ident. I agree with the exam findings and treatment plan as documented by the [facility] admitting team. I have reviewed (not edited) the note below. Louis is doing better today- he was admitted from the cancer center yesterday with acute metabolic encephalopathy due to complicated cystitis- on Abx, await U Cx , BCx, Renal US, and hypercalcemia of malignancy with Ca of 14. Given one brandan e dose of calcitonin given ONJ while he was on Denusomab. Will repeat this today given hypercalcemia has persisted. Will continue with hydration. MRI Brain pend ing to look for possible metastases. This morning his manzano bag is consistent with hematuria- there was concern he ma y have tugged at it last night, with some evacuation of small clots. Will have u rology evaluate. Will also consult radiation oncology as patient was being planned outpatient wit h palliative radiotherapy given bladder outlet obstruction, constipation and hem aturia. Time spent 70 minutes > 50% face to face Debbi Amaro MD Clinical Automatic Buffer Division of Hematology & Medical Oncology Department of Medicine [facility] documented in this encounter Consult Notes * Farrukh Vasquez DMD - 01/14/2021 3:42 PM EDT Associated Order(s): IP CONSULT TO DENTIST Limited Chairside Dental Evaluation CC: "I am here being treated for my prostate cancer and I am having difficulty e ating because my teeth are broken down" HPI: Mr.Charles Rosa Elena Madrids a 60 y.o.malewith PMH of prostate cancer who. He is found to have UTI and is currently being treated wit h Abx.Patient was recieving debridement of bone associated with MRONJ of the right mandible and left maxilla in [place] about a year ago, patient rep jones has since removed part of the jaw and associated teeth at home on his own. No current signs of communication between the oral cavity and jaw are pres et at this time. Mandibular ridge appears to have a deficit were the exposed jaw bone once was.Seems the gingiva have healed over the wound site. Patient reports no pain at this current time but is having much difficultly eating because of the loss of function due to the breakdown of dentition. Patient is interested in some sort of occlusal appliance and or treatment to regain some of his lost fu nction again. Patient is currently undergoing cancer therapy and is having diffi culty with eating in general and is not able to get down lots of food. Patient w ill need to work with medical team and follow dietary recommendations accordingl y so that patient is able to regain eating. GI tube may be indicated down the ro ad if patient does not respond well to dietary recommendations and there is conc erns for malnutrition, medical team should coordinate accordingly. Radiographs: Chairside evaluation, none taken today Extraoral exam: Patient has nephrostomy tubes put in place and is receiving canc er therapy accordingly. Patient seems slightly frail but overall was doing well. Intraoral exam: Gross breakdown of the teeth. Patient is mostly edentulous on th e mandible and has partial dentition on the maxilla ( teeth are severally broken down, lingual erosion/decay). Patient has a mandibular ridge deficit due to ost eonecrosis of the jaw as a result of complications of bisphosphonate therapy.See ms the gingiva have healed over the wound site where exposed jaw bone once was. 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 Patient should have their diet and nutr itional concerns reviewed with the medical team (dietitian/nutricionist/and onco logy). Once the the patient is discharged, patient can follow up with [facility] for a comprehensive exam and his treatment options can be presented accordingly. A mo re through examination is needed to properly access treatment options (fluoride treatments,tooth supported overlay denture) Medications prescribed: Peridex RTC: Follow up at [facility] Associated attestation - Lowell Araujo DDS - 01/15/2021 12:16 PM EDT I reviewed and discussed the history, exam findings, assessment and plan with e resident during and immediately after the visit and agree with the diagnosis a nd treatment performed as documented by the resident. * Heide Alejandra MD - 01/13/2021 11:43 AM EDT Associated Order(s): IP CONSULT TO INFECTIOUS DISEASES Images from the original note were not included. [facility] INPATIENT [address] [place] [id number] Louis Mccann [id number] 1960 60 y.o. year old male 01/11/2021 Vin Escobar MD Infectious Disease Consult Note REASON FOR ID CONSULT: 1. Gram negative cocci bacteremia 2. UTI Physician requesting consultation: Vin Escobar MD Physician/ FERNANDO providing consultation: Heide Alejandra MD and Re cortés PA-C History of Present Illness: Louis Mccann is a 60 y.o. 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 ID is being consulted for UTI as well as gram negative cocci bacteremia. Per chart review of outpatient hem e/onc notes, the patient received chemo on 11/23 and has reported being week and increasingly confused since. The patient presented to the heme/onc clinic on 12/29 4 but chemotherapy was held due to altered mental status and concerns for sepsis . The patient was admitted to on 01/11 and was afebrile with WBC 19.4, HR 111. I nfectious workup includes UA with 94 WBC, no squamous cells, and 1+ bacteria wit h urine culture showing indigenous micro-organisms. Blood cultures from 01/11 [place] w gram negative cocci in the anaerobic broth but not on solid media. He is COVID -19 negative but respiratory viral panel was not performed. Pertinent imaging in cludes MRI brain with small vessel ischemic dz, CXR is unremarkable, and renal U S shows moderate right hydroureteronephrosis with soft tissue thickening. Urolog y has been consulted for the hematuria and renal US findings and have scheduled R nephrostomy tube placement for today. The patient is afebrile with leukocytosis trending down, creatinine remains stab le at 1.13, and LFTs are unremarkable. Patient is comfortably lying in bed with his son at the bedside. He reports lower abdominal/pelvic pain as well as lower midline back pain that is chronic in nature. He denies fever, chills, chest pain , dyspnea, N/V/D. Past Medical History: Past Medical History: Diagnosis Date Bone cancer Bone metastases Cervical spondylosis 09/14/2017 Elevated PSA Hx antineoplastic chemotherapy Hx of radiation therapy 03/21/2016 3000 cGy/ 10 fractions to right shoulder Hyperlipidemia Hypertension Left flank pain started 04/04/16 Low back pain Prostate cancer Reactive depression (situational) 12/22/2020 Ulnar neuropathy at elbow of right upper extremity 10/01/2017 Principal Problem: UTI (urinary tract infection) Past Surgical History: Past Surgical History: Procedure Laterality Date ELBOW SURGERY Right 04/2019 left wrist surgery PORTACATH PLACEMENT 02/11/2016 GA REVISE ULNAR NERVE AT WRIST Right 11/30/2017 Procedure: RIGHT SIDE ULNAR NERVE DECOMPRESSION ; Surgeon: Gael Pimentel MD ; Location: [address]; Service: Neurosurgery; Laterality: Right; TONSILLECTOMY IMMUNIZATIONS: There is no immunization history on file for this patient. Allergy No Known Allergies Home Medications: Home Medications Medication Sig aspirin 81 MG tablet Take 81 mg by mouth daily Patient not taking: Reported on 12/28/2020 calcium carbonate (OS-EDWIN) 600 MG TABS Take 600 mg by mouth daily Patient not taking: Reported on 12/28/2020 carisoprodol (SOMA) 350 MG tablet Take 350 mg by mouth Four times daily as neede d for Muscle spasms. chlorhexidine (PERIDEX) 0.12 % solution clobetasol (TEMOVATE) 0.05 % ointment Apply topically Two Times Daily dronabinol (MARINOL) 10 MG capsule TAKE ONE CAPSULE BY MOUTH TWO TIMES A DAY MAX IMUM DAILY DOSE 2 Patient not taking: Reported on 12/28/2020 fluocinolone (SYNALAR) 0.025 % ointment APPLY TO PSORIATIC PLAQUES ON ELBOWS ONC E DAILY gabapentin (NEURONTIN) 300 MG capsule Take 1 capsule by mouth Three times daily Take 2 caps tid 600 mg per dose Lupron Depot (3-Month) 22.5 MG Intramuscular Kit (leuprolide acetate) Inject 22. 5 mg into the muscle every 3 (three) months Multiple Vitamins-Minerals (CERTAVITE/ANTIOXIDANTS) TABS Take by mouth Patient not taking: Reported on 12/28/2020 ondansetron (ZOFRAN) 8 MG tablet Take 1 tablet by mouth every 8 (eight) hours as needed for Nausea or Vomiting. Ondansetron HCl 8 MG Oral Tablet (ZOFRAN) Take 1 tablet by mouth every 8 (eight) hours as needed for Nausea or Vomiting oxyCODONE HCl 15 MG Oral Tablet (ROXICODONE) Take 1 tablet by mouth every 4 (fou r) hours as needed for PainCancer related pain, Max Daily Dose: 90 mg Indicatio ns: Chronic Pain PEG 3350 17 GM/SCOOP Oral Powder (MIRALAX) Take 17 g by mouth daily Prochlorperazine Maleate 10 MG Oral Tablet (COMPAZINE) Take 1 tablet by mouth ev juan 6 (six) hours as needed (Nausea/Vomiting) Self-Cath Coude Tip Use as directed. DAILY Senna-Docusate Sodium 8.6-50 MG Oral Tablet (SENOKOT-S) Take 1 tablet by mouth d aily SM Senna Laxative 8.6 MG Oral Tablet Take 1 tablet by mouth daily Syringe/Needle (Disp) 26G X 5/8" 1 ML Use as directed. Urology kit 1 SYRINGE/NEEDLE, DISP, 1 ML 26G X 5/8" 1 ML MISC Use as directed. Urology Kit 1 tamsulosin HCl (FLOMAX) 0.4 MG CAPS Take 0.4 mg by mouth daily. Xtandi 40 MG Oral Capsule (Enzalutamide) TAKE 4 CAPSULES BY MOUTH EVERY DAY Patient not taking: Reported on 12/28/2020 Medications at this time docusate sodium 100 mg Oral BID gabapentin 300 mg Oral Nightly piperacillin-tazobactam 3.375 g Intravenous Q8H polyethylene glycol 17 g Oral Daily potassium chloride 40 mEq Oral Once tamsulosin 0.4 mg Oral Daily acetaminophen (TYLENOL) tablet, carisoprodol, ondansetron, oxyCODONE sodium chloride 150 mL/hr at 01/13/21 0743 Antibiotics: Antibiotic Orders piperacillin-tazobactam (ZOSYN) IVPB 3.375 g (premix) at 12.5 mL/hr starting at 01/13 1000 Diet Adult; NPO starting at 01/13 0001 Lines & Catheters: Peripheral IV 11/22/20 Left Antecubital (Active) Number of days: 51 Peripheral IV 01/12/21 Right Antecubital (Active) Site Assessment Clean;Dry;Intact 01/13/21 0200 Line Status Flushed;Normal saline locked 01/13/21 0200 Line Care Connections checked and tightened;Flushed per protocol;Valve changed 0 01/13/21 0200 Valve Change Due 01/17/21 01/13/21 0200 Dressing Type Tegaderm 01/13/21 0200 Dressing Status Clean;Dry;Intact 01/13/21 0200 Dressing Intervention New dressing 01/12/21 1300 Number of days: 0 Port A Cath Double Lumen 02/11/16 Right Chest (Active) Medial Access Date 01/11/21 01/13/21 0200 Medial Access Time 1030 01/11/21 1000 Medial Accessed By: [email or web address] 01/11/21 1000 Medial Size (Gauge) 20 01/13/21 0200 Medial Needle Length 1 01/13/21 0200 Medial Needle Type Power 01/13/21 0200 Medial Line Status Flushed;Blood return noted;Infusing 01/13/21 0200 Medial Line Care Connections checked and tightened;Flushed per protocol 01/13/21 0200 Medial Valve Change Due 01/15/21 01/13/21 0200 Medial Tubing Change Due 01/15/21 01/13/21 0200 Medial De-accessed Date 12/20/20 12/20/20 1500 Medial De-accessed Time 1552 12/20/20 1500 Lateral Access Date 01/11/21 01/13/21 0200 Lateral Access Time 1035 01/11/21 1000 Lateral Accessed By: [email or web address] 01/11/21 1000 Lateral Size (Gauge) 20 01/13/21 0200 Lateral Needle Length 1 01/13/21 0200 Lateral Needle Type Power 01/13/21 0200 Lateral Line Status Blood return noted;Infusing 01/13/21 0200 Lateral Line Care Connections checked and tightened;Flushed per protocol 1 0200 Lateral Valve Change Due 01/15/21 01/13/21 0200 Lateral Tubing Change Due 01/15/21 01/13/21 0200 Lateral De-accessed Date 12/14/20 12/14/20 1555 Lateral De-accessed Time 1555 12/14/20 1555 Site Assessment Clean;Dry;Intact 01/13/21 0200 Dressing Type Biopatch;Bio-occlusive 01/13/21 0200 Dressing Status Clean;Dry;Intact 01/13/21 0200 Dressing Intervention New dressing 01/12/21 1300 Dressing Change Completed 01/11/21 01/13/21 0200 Dressing Change Due 01/18/21 01/13/21 0200 Flush Performed Yes 01/13/21 0200 Number of days: 1797 Family History family history includes Cancer in his maternal grandmother and mother. Social History Socioeconomic History Marital status: Single Spouse name: Not on file Number of children: 3 Years of education: Not on file Highest education level: Not on file Occupational History Not on file Tobacco Use Smoking status: Former Smoker Quit date: 05/03/1974 Years since quittin.7 Smokeless tobacco: Never Used Vaping Use Vaping Use: Never used Substance and Sexual Activity Alcohol use: No Drug use: No Sexual activity: Yes Partners: Female Other Topics Concern Not on file Social History Narrative Not on file Social Determinants of Health Financial Resource Strain: Low Risk Difficulty of Paying Living Expenses: Not hard at all Food Insecurity: No Food Insecurity Worried About Running Out of Food in the Last Year: Never true Ran Out of Food in the Last Year: Never true Transportation Needs: No Transportation Needs Lack of Transportation (Medical): No Lack of Transportation (Non-Medical): No Physical Activity: Inactive Days of Exercise per Week: 0 days Minutes of Exercise per Session: 0 min Stress: No Stress Concern Present Feeling of Stress : Only a little Social Connections: Socially Isolated Frequency of Communication with Friends and Family: More than three times a wee k Frequency of Social Gatherings with Friends and Family: More than three times a week Attends Zoroastrian Services: Never Active Member of Clubs or Organizations: No Attends Club or Organization Meetings: Never Marital Status: Intimate Partner Violence: Not At Risk Fear of Current or Ex-Partner: No Emotionally Abused: No Physically Abused: No Sexually Abused: No Review Of System: Review of Systems Constitutional: Negative for chills, fatigue and fever. HENT: Negative. Eyes: Negative for photophobia and visual disturbance. Respiratory: Negative for cough, shortness of breath and wheezing. Cardiovascular: Negative for chest pain and leg swelling. Gastrointestinal: Positive for abdominal pain (lower abdomen). Negative for abdo cortes distention, diarrhea, nausea and vomiting. Genitourinary: Negative for dysuria, flank pain, frequency and urgency. Musculoskeletal: Positive for back pain. Negative for arthralgias, myalgias, nec k pain and neck stiffness. Skin: Negative for rash and wound. Neurological: Negative for dizziness, weakness and headaches. All other systems reviewed and are negative. PHYSICAL EXAMINATION Vitals: 01/12/21 1800 01/12/21 2349 01/13/21 0000 01/13/21 0743 BP: 107/73 99/63 118/77 BP Location: Right arm Right arm Right arm Patient Position: Lying Lying Lying Pulse: 91 89 92 Resp: 16 16 17 Temp: 36.3 C (97.3 F) 36.5 C (97.7 F) 36.5 C (97.7 F) TempSrc: Oral Oral Oral SpO2: 95% 95% 95% 97% Physical Exam Vitals and nursing note reviewed. Constitutional: General: He is not in acute distress. Appearance: Normal appearance. He is not ill-appearing or toxic-appearing. HENT: Head: Normocephalic and atraumatic. Right Ear: External ear normal. Left Ear: External ear normal. Nose: Nose normal. Mouth/Throat: Mouth: Mucous membranes are moist. Pharynx: No oropharyngeal exudate. Eyes: General: No scleral icterus. Conjunctiva/sclera: Conjunctivae normal. Cardiovascular: Rate and Rhythm: Normal rate and regular rhythm. Heart sounds: No murmur heard. Pulmonary: Effort: Pulmonary effort is normal. No respiratory distress. Breath sounds: Normal breath sounds. No wheezing or rhonchi. Abdominal: General: There is no distension. Palpations: Abdomen is soft. Tenderness: There is no abdominal tenderness. There is no right CVA tendernes s, left CVA tenderness or guarding. Genitourinary: Comments: Manzano with scant yellow urine Musculoskeletal: General: No tenderness. Cervical back: Neck supple. No rigidity. Right lower leg: No edema. Left lower leg: No edema. Skin: General: Skin is warm and dry. Coloration: Skin is not jaundiced. Findings: No bruising, erythema or rash. Neurological: General: No focal deficit present. Mental Status: He is alert and oriented to person, place, and time. Psychiatric: Mood and Affect: Mood normal. Behavior: Behavior normal. DATA REVIEW Laboratory Data Recent Labs Lab 01/11/21 1834 01/11/21 1834 01/12/21 01101/13/21 01401/13/21 0622 NA 137 -- 137 135* -- K 2.7* < > 3.6 3.0* 3.4 CL 97* -- 100 101 -- BICARBONATE 21* -- 26 24 -- GLUCOSE 114 -- 119 118 -- BUN 18 -- 16 12 -- CREATININE 0.96 -- 0.93 1.13 -- BCR 19 -- 17 10 -- GFRAA >90 -- >90 80 -- GFRNONAA 88 -- 89 69 -- < > = values in this interval not displayed. Recent Labs Lab 01/11/21 1045 01/11/21 1124 01/12/2111001/13/21141 HCT 26.8* -- 23.7* 22.7* HGB 9.1* -- 7.7* 7.4* MCH 29.5 -- 28.6 28.5 MCHC 33.8 -- 32.6 32.5 MCV 87.2 -- 87.9 87.6 PLT 438* -- 388 391 RDW 16.2* -- 16.1* 16.3* WBCUA -- 94* -- -- WBC 19.4* -- 13.5* 14.4* Recent Labs Lab 01/12/21110 ALKPHOS 122 TBILI 0.3 PROT 5.9* ALBUMIN 2.9* ALT 14 AST 33 Microbiology: 01/12 COVID-19 PCR: negative Imagin/14 CXR: FINDINGS: Tubes, catheters and devices: Port catheter remains in place. Lungs: Low lung volumes.. No consolidation. Pleural spaces: Unremarkable. No pleural effusion. No pneumothorax. Heart/Mediastinum: Unremarkable. No cardiomegaly. Bones/joints: Unremarkable. IMPRESSION: No acute cardiopulmonary abnormality. 01/12 MRI Brain: FINDINGS: The cerebral parenchyma is normal in appearance. There are no areas of abnormal restricted diffusion to suggest acute infarct. No areas of abnormal hernandez sceptibility are identified to suggest the presence of acute hemorrhage. 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 The cerebellum and brainstem are normal. The regions o f the sella, pituitary, and pontomedullary junctions are normal in configuration . There is increase intensity area in the periventricular and scattered subcorti edwin white matter, nonspecific and likely reflect small vessel ischemic disease. The extra-axial spaces are normal in size and morphology for the patient's age. There is no intracranial hemorrhage. The basal cisterns are patent. There is no shift of the midline structures. The visualized upper cervical spine is normal. The calvarium is intact. Normal flow voids are present, without atheroma, occlus ion, or dissection. Mucosal thickening in the bilateral maxillary sinuses otherwise paranasal sinuse s are well aerated. The mastoid air cells are clear. The visualized orbits are normal in appearance. IMPRESSION: 1. No evidence of acute hemorrhage or territorial infarction. 2. 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 2. There is increase high intensity area in the periventricular and scattered hernandez bcortical white matter region, nonspecific and likely reflect small vessel ische alan disease. 01/12 Renal US: FINDINGS: The right kidney measures 10.5 cm in length, and the left kidney measures 11.6 c m in length. The right kidney is normal in size, contour, cortical thickness, and echogenicit y. Moderate right hydroureteronephrosis. Soft tissue thickening is noted surroun ding the right ureter measuring 10.2 x 4.2 cm No renal lesion is identified. No perinephric fluid collection is seen. The left kidney is normal in size, contour, cortical thickness and echogenicity. No hydronephrosis is identified. No focal renal lesion is identified. No per inephric fluid collection is seen. Manzano catheter is noted in the bladder. IMPRESSION: Moderate right hydroureteronephrosis with soft tissue thickening surrounding the right ureter measuring 10.2 x 4.2 cm x 4.[address] IVP is recommended for furt her evaluation. 01/12 CT A/P: pending EKG/Echo: QT/QTC= 405 IMPRESSION AND RECOMMENDATIONS Mr. Louis Mccann is a 60 y.o. 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 The GNC in the blood grew in the anaerobic broth but not solid media. We suspect the organism in the blood is from a urinary source and will potentially be identified as gram negative rods upon further evaluation. Recommendations: Continue Zosyn for now while further workup of the blood and urine cultures avery ins pending. Will continue to follow. Thank you for allowing us to participate in this patie nt's care. Please call [phone] with questions or changes in condition. Patient seen. Plan of care discussed and co-formulated with Brenda Lord PA-C Infectious Disease Patient personally seen and examined. History of illness/clinical updates dorene rodriguez. Vital signs, labs, imaging (chest X-ray- normal), microbiology and applicab le chart notes personally reviewed. Plan discussed with ID team and fellow note reviewed and agree with plan, with the following additions: 60 yo man with metastatic prostate cancer, immune suppressed due to chemotherapy , p/w acute encephalopathy , leukocytosis, abdominal pain; found to have bactere do, ALFIE, hyponatremia and hydronephrosis. Improving with pip-tazo. Cultures p ending. Likely source is from urinary tract. - agree with continue pip-tazo - follow cultures * Beka Ford MD - 01/13/2021 8:03 AM EDT Associated Order(s): IP CONSULT TO RADIATION ONCOLOGY Images from the original note were not included. RADIATION ONCOLOGY INITIAL CONSULT Subjective: Referring Physician: Dr. Debbi Amaro MD. Diagnosis and Stage: Stage IV (M1b) prostate cancer with metastases to bone preP SA 20 Prior Therapy: 1. Lupron and Casodex 03/17/2016 2. Taxotere x6 cycles 05/30/2016 3. Teague-223 02/11/2017 4. Enzalutamide 07/02/2018 5. Cabazitaxel 11/23/2020-present CIED: None ECOG Performance Status: (1) Restricted in physically strenuous activity, ambula tory and able to do work of light nature. History of Present Illness: Louis Mccann is a very pleasant 60 y.o. year old male with a history of me tastatic prostate adenocarcinoma diagnosed in November 2015. He presentred with ne urologic symptoms, workup for CVA was negative but MRI brain showed a lesion in the left clivus and adjacent occipital condyle involving the left hypoglossal ne rve canal and denervation of the left tongue. Staging scans showed right hip, T and L-spine lesions. PSA returned elevated at 249. He was started on bicalutamid e and Lupron after prostate biopsy confirmed adenocarcinoma. He also received 6 cycles of Taxotere completed 05/30/2016. His PSA remained elevated and he had per sistent pain from his sites of bony disease and offered Teague-223 therapy compl eted 02/11/2017. He was restarted on Lupron therapy after restaging scans showed new metastatic C-spine lesion. Staging scans showed 06/18/2018 showed bony progr ession to T6, he was started on enzalutamide 07/02/2018 with good response in PSA. He was seen by Dr. Greene on 12/22 for a recent history of hematuria after CT AP 11/19 showed enlarged prostate with possible invasion into the bladder neck and i rregular urinary bladder wall thickening. He was referred to us on 12/28 to discu palliative radiation to the prostate with plans to return to clinic on for CT simulation. On the day of simulation, patient was admitted to [facility] for bladder outlet obstruction, confusion, and UTI. Radiation Oncology was cons ulted to evaluate the patient today after he developed hematuria. Patient evaluated at bedside. He appears confused, not answering questions appro priately and stating he needed to go to the bathroom but unable to elaborate on what he is feeling. He has a Manzano catheter in draining red urine with large kriss ts visible in the tube. He denies any pain. Patient Care Team: Fabian Infante MD as PCP - General (Family Medicine) Autumn Valles MD (Internal Medicine) Eldon Byrd MD as Consulting Physician (Urology) Mike Walker MD as Consulting Physician (Hospice or Palliative Medicine) Scar Fletcher MD (Neurology) Óscar Peralta MD as Consulting Physician (Hematology and Oncology) Georgi Greene MD as Consulting Physician (Urology) Beka Ford MD as Consulting Physician (Radiation Oncology) Past Medical History: He has a past medical history of Bone cancer, Bone metast ases, Cervical spondylosis (09/14/2017), Elevated PSA, antineoplastic chemothera py, radiation therapy (03/21/2016), Hyperlipidemia, Hypertension, Left flank roberto n, Low back pain, Prostate cancer, Reactive depression (situational) (12/22/2020 ), and Ulnar neuropathy at elbow of right upper extremity (10/01/2017). Past Surgical History: He has a past surgical history that includes Tonsillect jasmyne; left wrist surgery; pr revise ulnar nerve at wrist (Right, 11/30/2017); Elb ow surgery (Right, 04/2019); and Portacath placement (02/11/2016). Family Medical History: His family history includes Cancer in his maternal gran dmother and mother. Social History: He reports that he quit smoking about 46 years ago. He has nev er used smokeless tobacco. He reports that he does not drink alcohol and does no t use drugs. Allergies: Patient has no known allergies. Medications: Current Facility-Administered Medications Medication Dose Route Frequency Provider Last Rate Last Admin acetaminophen (TYLENOL) tablet 650 mg 650 mg Oral Q4H PRN Brenda Rivera carisoprodol (SOMA) tablet 350 mg 350 mg Oral TID PRN LILY Rivera docusate sodium (COLACE) capsule 100 mg 100 mg Oral BID Debbi Amaro MD 100 mg at 01/12/212122 gabapentin (NEURONTIN) capsule 300 mg 300 mg Oral Nightly Debbi Amaro MD 3 00 mg at 01/12/21 2123 NaCl infusion 0.9 % Intravenous Continuous Ashley Torres MD 150 mL/hr at 01/13 0743 Restarted at 01/13/21 0743 ondansetron (ZOFRAN) tablet 8 mg 8 mg Oral Q8H PRN LILY Rivera oxyCODONE (ROXICODONE) immediate release tablet 7.5 mg 7.5 mg Oral Q4H PRN Tin Malik MD piperacillin-tazobactam (ZOSYN) IVPB 3.375 g (premix) 3.375 g Intravenous Q8H Ashley Torres MD polyethylene glycol (MIRALAX) packet 17 g 17 g Oral Daily Debbi Amaro MD 1 7 g at 01/12/21 1110 potassium chloride (K-DUR) dissolvable tablet 40 mEq 40 mEq Oral Once Ashley ward MD potassium chloride (KLOR-CON) packet 40 mEq 40 mEq Oral Once Darryl Land DO tamsulosin (FLOMAX) capsule 0.4 mg 0.4 mg Oral Daily LILY Rivera 0.4 mg at 01/12/21 1109 Review of Systems A complete review of systems was performed and is negative except as per HPI. Objective: Vitals - 1 value per visit 12/28/2020 01/11/2021 01/13/2021 SYSTOLIC - 120 133 DIASTOLIC - 82 75 PULSE - 101 96 TEMPERATURE - 98.4 99 RESPIRATIONS - 16 17 Weight (kg) 78.926 kg 72.122 kg - HEIGHT - - - SPO2 - 96 94 BODY MASS INDEX 26.46 kg/m2 24.18 kg/m2 - PAIN SCALE - SCORE 2 0 0 PAIN SCALE - LOCATION BACK ABDOMEN - PAIN SCALE - COMMENT - - - Some recent data might be hidden Physical Examination General: alert and oriented x1, no acute distress HEENT: Normocephalic and atraumatic Cardiovascular: regular rate and rhythm Pulmonary: non-labored breathing Skin: skin warm and dry, no gross lesions upon examination Psychiatric: affect and mood congruent Diagnostic Imaging: CT AP 11/08/2020: Assessment & Plan: Louis Mccann is a 60 y.o. year old male with a diagnosis of metastatic pro state adenocarcinoma with invasion of the bladder neck causing hematuria. We rev iewed the NCCN guidelines and had a long discussion with the patient regarding o ur recommendations for treatment. We discussed our plans to proceed with radiation with the patient and his son, Malena granados. Patient is unable to sign consent for himself given his confusion, likely acute metabolic encephalopathy secondary to UTI, two physician consent was obta ined with his son over the phone. Both Tobias and Louis are in agreement with starting radiation with the goal of stopping his hematuria, as well as improving his ability to have a bowel movement by shrinking the prostate away from the re ctum. We focused our discussion on the rationale, indications, logistics, benefits, an d risks associated with radiation therapy. We described the logistics of daily r adiation Sunday through Sunday over a course of 5 once-daily treatments to the p rostate up-front, given his recurrent hematuria. Side effects may include but ar e not limited to: urinary urgency and incontinence, bowel urgency and incontinen ce, diarrhea, hematuria, hematochezia. The patient had multiple insightful questions which were answered to the best of our ability and to their apparent full satisfaction. He confirmed understanding of the information received today. At this time, Mr. Mccann is willing to pro ceed with radiation treatments. We will proceed with treatment planning after aminta vasquez undergoes CT simulation in our department today. Patient would like to be treated at [facility] – [place], [place]. We would be happy to see or speak with the patient at any time s hould there be any additional questions or concerns. The plan of care for pain includes the following intervention(s): the patient is not having any pain. The patient was seen, examined and counseled under the supervision of attending physician MD Gael Álvarez MD Radiation Oncology, PGY-3 Agree with above note * Carole Banks MD - 01/12/2021 6:36 PM EDT Associated Order(s): IP CONSULT TO UROLOGY Urology Consult Reason for Consult: Right hydronephrosis, hematuria HPI: Louis Mccann is a 60 y.o. male with a history of metastatic prostate cance r to bone and brain initially diagnosed in 2015, currently on lupron and cabazit janette. He is admitted with AMS presumed secondary to UTI. On this admission he wa s found to have new right hydronephrosis not seen on imaging earlier this summer . He also has had some hematuria, which he was also seen in urology clinic for a few weeks ago. Initially he was planned for cystoscopy for evaluation of hematu ana but this was avoided in order to not manipulate his prostatic urethra furthe r as his hematuria had been improved for a week when he was seen. Recent imaging suggestive of invasion of cancer into the bladder neck. He does CIC at baseline for urinary retention and recently had likely not been cathing successfully cathy or to admission and has had indwelling manzano placed in the hospital. He is being planned to start radiation to the pelvis and underwent CT sim with rad onc jose chua. He has been afebrile. Leukocytosis >19 on admission, improved to 13.5 today. Cr at baseline ~0.9. He is hypercalcemic. UA suggestive of infection but urine culture with prasanna. One of two blood cultures is growing gram negative cocci. Urology called for new right hydro as well as hematuria and clot within his catheter. Past Medical History: Past Medical History: Diagnosis Date Bone cancer Bone metastases Cervical spondylosis 09/14/2017 Elevated PSA Hx antineoplastic chemotherapy Hx of radiation therapy 03/21/2016 3000 cGy/ 10 fractions to right shoulder Hyperlipidemia Hypertension Left flank pain started 04/04/16 Low back pain Prostate cancer Reactive depression (situational) 12/22/2020 Ulnar neuropathy at elbow of right upper extremity 10/01/2017 Past Surgical History: Past Surgical History: Procedure Laterality Date ELBOW SURGERY Right 04/2019 left wrist surgery PORTACATH PLACEMENT 02/11/2016 GA REVISE ULNAR NERVE AT WRIST Right 11/30/2017 Procedure: RIGHT SIDE ULNAR NERVE DECOMPRESSION ; Surgeon: Gael Pimentel MD ; Location: OR [facility]; Service: Neurosurgery; Laterality: Right; TONSILLECTOMY Allergies: No Known Allergies Medications: Current Facility-Administered Medications on File Prior to Encounter Medication Dose Route Frequency Provider Last Rate Last Admin [COMPLETED] alteplase (CATHFLO) injection 2 mg 2 mg Intracatheter Once J agustín Genao NP 2 mg at 01/11/21 1113 [COMPLETED] calcitonin (MIACALCIN) injection 288 Units 288 Units Subcuta neous Once Willow L Leubner, [employer] 288 Units at 01/11/21 1512 [COMPLETED] NaCl infusion 0.9 % Intravenous Once Willow Genao NP Stopped at 01/11/21 1630 [COMPLETED] piperacillin-tazobactam (ZOSYN) IVPB 3.375 g (premix) 3.375 g Intravenous Once Willow Genao NP Stopped at 01/11/21 1447 [COMPLETED] sodium chloride 0.9 % bolus 1,000 mL 1,000 mL Intravenous On ce Willow Genao NP Stopped at 01/11/21 1438 [DISCONTINUED] alteplase (CATHFLO) injection 2 mg 2 mg Intracatheter Onc e Willow Genao NP Current Outpatient Medications on File Prior to Encounter Medication Sig Dispense Refill aspirin 81 MG tablet Take 81 mg by mouth daily (Patient not taking: Repo rted on 12/28/2020) calcium carbonate (OS-EDWIN) 600 MG TABS Take 600 mg by mouth daily (Patie nt not taking: Reported on 12/28/2020) carisoprodol (SOMA) 350 MG tablet Take 350 mg by mouth Four times daily a s needed for Muscle spasms. chlorhexidine (PERIDEX) 0.12 % solution clobetasol (TEMOVATE) 0.05 % ointment Apply topically Two Times Daily 30 g 5 dronabinol (MARINOL) 10 MG capsule TAKE ONE CAPSULE BY MOUTH TWO TIMES A DAY MAXIMUM DAILY DOSE 2 (Patient not taking: Reported on 12/28/2020) 0 fluocinolone (SYNALAR) 0.025 % ointment APPLY TO PSORIATIC PLAQUES ON ELB OWS ONCE DAILY 2 gabapentin (NEURONTIN) 300 MG capsule Take 1 capsule by mouth Three times daily Take 2 caps tid 600 mg per dose 180 capsule 3 Lupron Depot (3-Month) 22.5 MG Intramuscular Kit (leuprolide acetate) Inj ect 22.5 mg into the muscle every 3 (three) months Multiple Vitamins-Minerals (CERTAVITE/ANTIOXIDANTS) TABS Take by mouth ( Patient not taking: Reported on 12/28/2020) ondansetron (ZOFRAN) 8 MG tablet Take 1 tablet by mouth every 8 (eight) h ours as needed for Nausea or Vomiting. 20 tablet 5 Ondansetron HCl 8 MG Oral Tablet (ZOFRAN) Take 1 tablet by mouth every 8 (eight) hours as needed for Nausea or Vomiting 20 tablet 1 oxyCODONE HCl 15 MG Oral Tablet (ROXICODONE) Take 1 tablet by mouth every 4 (four) hours as needed for PainCancer related pain, Max Daily Dose: 90 mg In dications: Chronic Pain 180 tablet 0 PEG 3350 17 GM/SCOOP Oral Powder (MIRALAX) Take 17 g by mouth daily 510 g 5 Prochlorperazine Maleate 10 MG Oral Tablet (COMPAZINE) Take 1 tablet by m outh every 6 (six) hours as needed (Nausea/Vomiting) 30 tablet 1 Self-Cath Coude Tip Use as directed. DAILY 8 each 6 Senna-Docusate Sodium 8.6-50 MG Oral Tablet (SENOKOT-S) Take 1 tablet by mouth daily 30 tablet 11 SM Senna Laxative 8.6 MG Oral Tablet Take 1 tablet by mouth daily Syringe/Needle (Disp) 26G X 5/8" 1 ML Use as directed. Urology kit 1 25 e ach 6 SYRINGE/NEEDLE, DISP, 1 ML 26G X 5/8" 1 ML MISC Use as directed. Urology Kit 1 25 each 6 tamsulosin HCl (FLOMAX) 0.4 MG CAPS Take 0.4 mg by mouth daily. Xtandi 40 MG Oral Capsule (Enzalutamide) TAKE 4 CAPSULES BY MOUTH EVERY D AY (Patient not taking: Reported on 12/28/2020) 120 capsule 5 Social: Social History Tobacco Use Smoking status: Former Smoker Quit date: 05/03/1974 Years since quittin.7 Smokeless tobacco: Never Used Vaping Use Vaping Use: Never used Substance Use Topics Alcohol use: No Drug use: No Family: Family History Problem Relation Age of Onset Cancer Mother Cancer Maternal Grandmother ROS: A 10-point review of systems was performed, and pertinent as per HPI Physical Exam Vitals: 01/11/21 2351 01/12/21 0317 01/12/21 0700 01/12/21 1500 BP: 104/71 108/72 126/89 126/89 Pulse: 81 77 97 96 Resp: 16 16 17 18 Temp: 36.7 C 36.6 C 36.8 C 36.4 C SpO2: 95% 96% General: Awake, Alert HEENT: NCAT Heart: Regular rate Lung: Non-labored Abdomen: Soft, non-tender, nondistended : manzano in place draining clear yellow urine with some dark clot seen in bag, irrigated with additional small amount of clot but remains yellow Extremities: No edema, no cyanosis Radiology: Renal US IMPRESSION: Moderate right hydroureteronephrosis with soft tissue thickening surrounding the right ureter measuring 10.2 x 4.2 cm x 4.[address] IVP is recommended for furt her evaluation. Data Reviewed BMP: Lab Results Component Value Date NA 137 01/12/2021 K 3.6 01/12/2021 CL 100 01/12/2021 BICARBONATE 26 01/12/2021 GLUCOSE 119 01/12/2021 BUN 16 01/12/2021 CREATININE 0.93 01/12/2021 BCR 17 01/12/2021 GFRAA >90 01/12/2021 GFRNONAA 89 01/12/2021 Lytes: Lab Results Component Value Date CALCIUM 12.5 (H) 01/12/2021 MG 1.7 01/12/2021 PHOS 2.4 (L) 01/12/2021 CBC: Lab Results Component Value Date WBC 13.5 (H) 01/12/2021 RBC 2.70 (L) 01/12/2021 HGB 7.7 (L) 01/12/2021 HCT 23.7 (L) 01/12/2021 PLT 388 01/12/2021 Coagulation: Lab Results Component Value Date INR 1.50 01/12/2021 Assessment and Plan: Louis Mccann is a 60 y.o. male with metastatic prostate cancer on systemic therapy admitted for AMS. Also has been having gross hematuria and found to hav e new right hydronephrosis in the setting of CT earlier this summer suggestive o f invasion towards the bladder neck. Planned to begin radiation to the pelvis. Principal Problem: UTI (urinary tract infection) - please obtain CT abdomen/pelvis non-con to better characterize right hydro - agree to maintain manzano to gravity at this time - monitor urine color - INR, hold morning dvt prophylaxis and anticoagulation - NPO at midnigh - will likely plan to discuss right nephrostomy tube with IR tomorrow - appreciate continued care per primary team - urology to follow Thank you for the consult and allowing us to participate in the care of Louis Mccann Discussed with Dr. Suero and Dr. Greene. Carole Banks MD, PhD Resident Physician, PGY-2 Department of Urology Associated attestation - Georgi Greene MD - 01/17/2021 9:26 AM EDT I saw and evaluated the patient. Discussed with the resident and agree with the residents findings and plans as written, along with any supplemental dictated a nd/or attending documentation in the patient record by myself. documented in this encounter Miscellaneous Notes * Significant Event - Lee Ann Le MD - 01/17/2021 5:26 PM EDT Prior to discharge pts family reports pt left eye swollen are concerned. Pt exam ined at bedside, left lower eye lid is slightly more swollen then right. Pt eyes not itchy no discharge or eye redness present, EOM intact, Visual solomon intact . Pt and family reassured. Lee Ann Le MD, PGY1 * Plan of Care - Montez Narayan RN - 01/17/2021 2:15 AM EDT Problem: Sensory Perception is less than 4 (< 4) Goal: Improve Sensory Perception Outcome: Progressing Problem: Moisture is less than 4 (< 4) Goal: Eliminate Moisture Outcome: Progressing Problem: Activity is less than 4 (< 4) Goal: Improve Activity Outcome: Progressing Problem: Mobility is less than 4 (< 4) Goal: Improve Mobility Outcome: Progressing Problem: Nutrition is Less than 3 (< 3) Goal: Improve Nutrition Outcome: Progressing Problem: Friction Shear is less than 3 (< 3) Goal: Eliminate Friction Shear Outcome: Progressing Problem: Risk for Falls Goal: No falls during hospitalization Description: Patient will not fall during hospitalization. Outcome: Progressing * Plan of Care - Montez Narayan RN - 01/14/2021 11:45 PM EDT Problem: Sensory Perception is less than 4 (< 4) Goal: Improve Sensory Perception Outcome: Progressing Problem: Moisture is less than 4 (< 4) Goal: Eliminate Moisture Outcome: Progressing Problem: Activity is less than 4 (< 4) Goal: Improve Activity Outcome: Progressing Problem: Mobility is less than 4 (< 4) Goal: Improve Mobility Outcome: Progressing Problem: Nutrition is Less than 3 (< 3) Goal: Improve Nutrition Outcome: Progressing * Plan of Heide Singh RN - 01/14/2021 12:15 PM EDT Problem: Sensory Perception is less than 4 (< 4) Goal: Improve Sensory Perception Outcome: Progressing Problem: Moisture is less than 4 (< 4) Goal: Eliminate Moisture Outcome: Progressing Problem: Activity is less than 4 (< 4) Goal: Improve Activity Outcome: Progressing Problem: Mobility is less than 4 (< 4) Goal: Improve Mobility Outcome: Progressing Problem: Nutrition is Less than 3 (< 3) Goal: Improve Nutrition Outcome: Progressing Problem: Friction Shear is less than 3 (< 3) Goal: Eliminate Friction Shear Outcome: Progressing Problem: Risk for Falls Goal: No falls during hospitalization Description: Patient will not fall during hospitalization. Outcome: Progressing Problem: Knowledge Deficit Goal: Knowledge - personal safety Description: Patient will verbalize understanding of fall prevention. Outcome: Progressing Problem: INJURY, RISK FOR Goal: Patient will not be injured from a fall during hospitalization Outcome: Progressing Problem: Knowledge Deficit Goal: Patient requires education regarding causes of high risk injury from a fal l Outcome: Progressing Goal: Patient's family requires education regarding causes of high risk injury f rom a fall Outcome: Progressing Problem: Hemodynamic Status Goal: Patient will remain hemodynamically stable Description: Patient's vital signs, oxygenation, and labs will be monitored and deviations addressed. Outcome: Progressing Problem: Pain Goal: Pain is controlled to patient's desired goal Outcome: Progressing Problem: Risk for impaired skin integrity Goal: Skin integrity is maintained or improved Outcome: Progressing Problem: Fall Prevention Goal: No fall during Hospitalization Outcome: Progressing Problem: Impaired Physical Mobility Goal: Patient will maintain maximum physical mobility within prescribed activity and weight bearing restrictions Outcome: Progressing Problem: Risk for DVT/PE Goal: Patient will not develop a DVT/PE Outcome: Progressing Problem: Risk for Gastrointestinal Complications Goal: Patient will not develop gastrointestinal complications Description: Nausea/vomiting, constipation, dehydration Outcome: Progressing Problem: Self Care Deficit Goal: Patient will perform Activities of Daily Living at optimal level Outcome: Progressing Problem: Psychosocial Needs Goal: Psychosocial needs will be met during this hospitalization Outcome: Progressing Problem: Discharge Needs Goal: Patient discharge needs are met Description: Collaborate with interdisciplinary team and initiate plans and inte rventions as needed Outcome: Progressing Problem: Spiritual Care Plan Goal: To assess spiritual care needs and hopes and mobilize spiritual resources for patients/families/caregivers that support/enhance quality of life related to hospitalization Description: To assess spiritual care needs and hopes and mobilize spiritual res ources for patients/families/caregivers that support/enhance quality of life rel ated to hospitalization. Outcome: Progressing * Assessment & Plan Note - Sharon Rosado OT - 01/14/2021 10:30 AM EDT Occupational Therapy Acute Care Functional Living Examination Medical Diagnosis: Acute metabolic encephalopathy Complicated cystitis Hypercalcemia Metastatic prostate cancer History of Present Illness: Per EPIC: History of Presenting Illness Mr. Louis Mccann is a 60 y.o. male with a past medical history of metastatic prostate cancer to bone s/p Casodex, Taxotere and Lupron, hypertension, hyperlipidemia presented to the [facility], [place] for chemotherapy, but was found to be altered and was direct admitted to medicine. ? Major of the history was obtained from patient's son who was at bedside. He mentioned that his father has been more confused lately, they contacted his primary, who recommended to go to [facility] ED, but patient refused at the time. ? Today he was supposed to get his regular chemo at [facility], where he was found to be confused, altered. His chemotherapy was deferred at this time suspecting an infection. At the time, pain hemodynamically stable albeit mild tachycardia. Pulmonary labs showed leukocytosis of 19.4 (neutrophil predominance), platelets of 438, BMP was significant for hypercalcemia of 14, creatinine 1.25 (baseline glucose 118. Procalcitonin was elevated to 24.13, UA was significant for UTI, cultures were sent. Blood cultures were sent and patient was started on Zosyn and 1 L NS bolus was given. He was also given to 288 units of calcitonin for hypercalcemia and started on 100 mL/h NS. EKG WNL. ? I evaluated the patient after he was transferred to the floors, he was cooperative, in no acute distress, oriented to only time and self. He was hemodynamically stable with pressures 120/82, mildly tachycardic to 101, saturating well on room air. Ordered a chest x-ray, which showed no acute cardiopulmonary abnormality. Date of Admission: 01/11/2021 4:34:00 PM Demographics: Age: 60 Gender: Male Past Medical History and Radiographics: Significant rehabilitation considerations: Per EPIC: Past Medical History: DiagnosisDate ?Bone cancer? ?Bone metastases? ?Hx antineoplastic chemotherapy? ?Hx of radiation [id number] ?Hyperlipidemia? ?Hypertension? ?Low back pain? ? Past Surgical History TONSILLECTOMY left wrist surgery GA REVISE ULNAR NERVE AT WRIST ELBOW SURGERY PORTACATH PLACEMENT Rehabilitation Precautions/Restrictions: Full code, OOB with assist, Therapy orders: No restrictions SUBJECTIVE Premorbid Level of Activities of Daily Living: Pt reports Modified independence with basic ADL. Son reports pt does not like to use cane or walker. Family assist with IADL. Pt completes medication management. Son drives to appointments. Two falls within the 6 months, one in the shower and fell in the closet. Occupation: Retired. Social History: Patient does not live alone. Patient lives with son, daughter in law and 2 grandchildren . If needed: Family member is willing to assist. Son willing to assist as needed, howeever works [employer] division manager Home Environment: There are 4 steps to enter the home with Bilateral handrails. There is no ramp to enter the home. Home is two levels. Description of 1st floor bedroom and bathroom availability/accessibility: Bed room: Flat bed, Bathroom: shower stall with grab bar and shower seat. Normal toilet . Description of 2nd floor bedroom and bathroom accessibility: NA . NA The patient is required to manage NA steps within the home, with NA Equipment Owned: rolling walker. Pain: Patient currently complains of pain. Location: L groin . Patient describes pain as Constant. Discomfort. Verbal Scale: Patient reports a pain level of 4 out of 10. Will inform nurse. Will perform therapy only as tolerated. Pain Medication Today: yes. OBJECTIVE General Observation: Patient received semi-reclined in bed in NAD. Son at bedside. +PIV LUE, +R nephrostomy, +Manzano catheter, +Port R chest. Bed alarm was on at start of session. Vital Signs: Stable. UPPER EXTREMITY FUNCTION Hand Dominance: left. Range of Motion: Tin UE AROM WFL for basic ADL. Strength: Tin UE strength 4/5 in all planes for basic ADL. Skin Integrity Screen: Patient with all visible skin appears grossly intact. Endurance: fair (+). Tone/Spasticity: No relevant impairments. Sensation: Pt reports numbness/tingling R UE. Edema: No edema is present. LOWER EXTREMITY FUNCTION: Tin LE strength WFL for basic ADL. Cognitive Screen: Responsiveness: Alert. Orientation: Patient is not alert and oriented as follows: Oriented x 2. Uanble to recall month, and specific hospital. Following Commands: Able to follow 1 step commands. Memory: Impaired. Decreased recall with multistep commands. Communications: Pt expresses basic needs/wants with assist. Executive Function: Problem Solving. Moderate verbal cues for safety awareness with sequencing with basic ADL. Attention: Impaired. Minimal verbal cues for attetion to task. Pt at times externally distracted. Cognitive Test Score: Decreased sequencing, Decreased processing, Decreased recall, Impusive, Decreased insight. score = NA Vision Screen: Functional visual impairments observed as follows: Pt reports wearing glasses. Perception: Perception was within normal limits with today's examination. Functional Mobility: Bed mobility with Supervision. toilet transfer with walker with CGA and Minimal verbal cues for safety. Toileting with Moderate assist. Grooming at sink in standing with CGA/S and Minimal verbal cues for sequencing task. Fine Motor Coordination: Upper extremity fine motor coordination is grossly intact. Gross Motor Coordination: Upper extremity gross motor coordination is intact. Balance: Static balance in a standing position: Supervision Dynamic balance in a standing position: CGA Activities of Daily Living: Feeding: Supervision. Reported by patient/family. Set up Grooming: Supervision. Observed patient during task. For balance in standing Bathing - Upper Body: Not assessed. Bathing - Lower Body: Not assessed. Upper Body Dressing: Supervision. Observed patient during task. Lower Body Dressing: Contact guard assistance. Reported by patient/family. For balance Toileting: Moderate assistance. Observed patient during task. Toilet Transfer: Contact guard assistance. Observed patient during task. Outcome Measure: [facility] AM-PAC "6 Clicks" Daily Activity Inpatient Short Form: Putting on and taking off regular lower body clothing: A little assistance (3) Bathing (including washing, rinsing, and drying): A little assistance (3) Toileting (including use of toilet, bedpan, or urinal): A lot of assistance (2) Putting on and taking off regular upper body clothing: A little assistance (3) Taking care of personal grooming such as brushing teeth: A little assistance (3) Eating meals: A little assistance (3) Raw Score: 17 /24 Interventions: None provided today. Splinting: No splint issued today. Education: Educational needs: Rehabilitation techniques and procedures. Barriers to Learning: Cognitive limitations. Learning Preference: Auditory. Demonstration. Mode of education provided: Explanation. Audience: Patient/family. Education Provided: OT goal/role, safety with basic ADL, Fall prevention, Energy conservation. . Response: Requires cues (auditory/physical). Needs practice/reinforcement. ASSESSMENT Moderate Complexity Evaluation: An occupational profile and medical and therapy history, which includes an expanded review of medical and/or therapy records and additional review of physical, cognitive, or psychosocial history related to current functional performance. An assessment(s) that identifies 3-5 performance deficits (i.e., relating to physical, cognitive, and psychosocial skills) that result in activity limitations and/or participation restrictions. Patient may present with comorbidities that affect occupational performance. Minimal to moderate modification of tasks or assistance (i.e., physical or verbal) with assessment(s) is necessary to enable patient to complete evaluation component. Response to Evaluation: The session was tolerated well. Pt motivated and willing to participate with therapy. Son is supportive. Call vallejo was in patient's reach at end of session. Bed alarm was on at end of session. Pain: Yes, pain is unchanged from start of today's treatment. Strengths: Social/family support. Goals: Patient's functional goals: To go home The patient's therapy goals are based on limitations/impairments in the following areas: ADLs / IADLs. Short Term Goals: 1. Pt will complete LE dressing with Supervision with AE as needed and Minimal verbal cues for safety within 1 week. 2. Pt will complete Toileting/toilet transfer with Supervision with AE as needed and Minimal verbal cues for safety within 1 week. 3. Pt will complete Bathing with Supervision with AE as needed and Minimal verbal cues for safety within 1 week. Substation Operator Goals: 1. Pt will complete Toileting/toilet transfer with Modified independence with AE as needed and no verbal cues for safety within 2 weeks. PLAN Treatment Frequency, Duration and Interventions: Restorative Occupational Therapy recommended for 5x per week for 2 weeks Treatment is to include: Development of Cognitive Skills. Neuromuscular Re-education. Self Care/Home Management. Therapeutic Activity. Therapeutic Exercise. Equipment Provided: None issued this visit. Equipment Recommended: Grab bars in shower and next to toilet, Shower chair. . Recommended Occupational Therapy Follow Up: Upon acute care discharge, the following is currently recommended: Home with 24 hour assist/supervision. Recommended Consults: None currently. Development of Plan of Care: Participants included: pt. There was no change to plan of care today. Goal Review Visit Number: 1 Visit Number: Today's visit is number 1 Program: Oncology (Therapist may be reached on [employer]) SESSION: Duration: 59 CHARGES: - 0 Units - 0 Units - 0 Units 36255 - CHARGE - OT EVAL; MODERATE COMLEXITY 4 Units - CANCER VISIT 1 Units - ORDER - Occupational Therapy Treatment 1 Units - ORDER - OCCUPATIONAL THERAPY CONSULT 1 Units Total treatment minutes: 59.00 Minutes Electronically Signed by: ARIAS Begum/Amber, 01/14/2021 2:13:47 PM * Assessment & Plan Note - Heidi Francis, PT - 01/14/2021 10:30 AM EDT Physical Therapy Acute Care Examination Medical Diagnosis: Admit from cancer center due to altered mental status Complicated cystitis Hydrourteronephrosis Hematuria Normocytic normochromic anemia Hypercalcemia History of osteonecrosis of jaw Stage IV metastatic prostate cancer, metastases to right hip, thoracic spine, and lumbar spine History of Present Illness: Per General Medicine H&P in [facility] dated 01/11/21: "Mr. Louis Mccann is a 60 y.o. male with a past medical history of metastatic prostate cancer to bone s/p Casodex, Taxotere and Lupron, hypertension, hyperlipidemia presented to the cancer Center for chemotherapy, but was found to be altered and was direct admitted to medicine. ? Major of the history was obtained from patient's son who was at bedside. He mentioned that his father has been more confused lately, they contacted his primary, who recommended to go to [facility] ED, but patient refused at the time. ? Today he was supposed to get his regular chemo at [facility], where he was found to be confused, altered. His chemotherapy was deferred at this time suspecting an infection. At the time, pain hemodynamically stable albeit mild tachycardia. Pulmonary labs showed leukocytosis of 19.4 (neutrophil predominance), platelets of 438, BMP was significant for hypercalcemia of 14, creatinine 1.25 (baseline glucose 118. Procalcitonin was elevated to 24.13, UA was significant for UTI, cultures were sent. Blood cultures were sent and patient was started on Zosyn and 1 L NS bolus was given. He was also given to 288 units of calcitonin for hypercalcemia and started on 100 mL/h NS. EKG WNL. ? I evaluated the patient after he was transferred to the floors, he was cooperative, in no acute distress, oriented to only time and self. He was hemodynamically stable with pressures 120/82, mildly tachycardic to 101, saturating well on room air. Ordered a chest x-ray, which showed no acute cardiopulmonary abnormality." Date of Onset: Prior to admission as described above. Date of Admission: 01/11/2021 4:34:00 PM Demographics: Age: 60 Gender: Male Past Medical History and Radiographics: Significant rehabilitation considerations: Per EPIC Past Medical History: Bone cancer? Bone metastases? History of antineoplastic chemotherapy? History of radiation therapy Hyperlipidemia? Hypertension? Low back pain? ? Past Surgical History: TONSILLECTOMY left wrist surgery GA REVISE ULNAR NERVE AT WRIST ELBOW SURGERY PORTACATH PLACEMENT Rehabilitation Precautions/Restrictions: Activity: OOB w/ assistance High fall risk Full code SUBJECTIVE Mental Status: Orientation:Patient is not alert and oriented as follows: Patient able to state name. Patient able to state "21" and "17" by reading the board in his room, unable to state December. Patient able to state "[facility]" but could not state "[facility]." Patient unable to recall why he is in the hospital. Command Following:Able to follow 1 step commands. Prior Functional Level: The patient reported the premorbid level of function was ambulating independently without assistive device. Patient's son present, Tobias, reports patient is "stubborn" and has a cane, but will not use it. Patient is typically able to complete ADLs independently, patient sits in the jacuzzi tub to bathe and then stands in the walk-in shower. Patient's son and daughter in law complete cooking, cleaning, laundry. Patient's son drives, approximately 2 months since chemotherapy onset. Patient's son reports his father has become increasingly weaker since chemo onset those 2 months ago. Patient has had 2 falls in the past 6 months, per his report. Patient endorses x1 exiting the shower, x1 fall in the closet when patient was retrieving money from his "bank"/safe in the closet. 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 Social History: Patient does not live alone. Patient lives with his son and [id number] . If needed: Family member is willing to assist. Son is an design printing machine set up operator, can fuller brush worker if needed. Patient's daughter in law is a teacher and works during the day. Patient also lives with his son's 2 children. Home Environment: Patient resides in a 2-story home with 4 steps to enter, bilateral handrails. Patient has 1st floor set-up, no need to go upstairs or to basement. Patient sleeps in a hospital/adjustable bed. Patient has a fully accessible bathroom with walk-in shower and jacuzzi tub. There is a shower seat in the walk-in shower, with removable shower head. Equipment Owned: Shower seat/chair. Removable shower head. Adjustable/hospital bed. Straight cane. Rolling walker. Pain: Patient currently complains of pain. Location: L groin area, L lower flank/abdomen (suprapubic) . Patient describes pain as Sharp. Verbal Scale: Patient reports a pain level of 4 out of 10. Pain Medication Today: yes. OBJECTIVE General Observation: Patient received semi-reclined in bed in NAD on RA. Son at bedside. +PIV LUE, +R nephrostomy, +Manzano catheter, +Port R chest. Bed alarm was on at start of session. Range of Motion:Sufficient for functional mobility as below. Strength:Sufficient for functional mobility as below. Skin Integrity Screen: Patient with all visible skin appears grossly intact. Tone/Spasticity: No relevant impairments. 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 WNL. Dynamic balance in a seated position: Good. WNL. Static balance in a standing position: Good(-). No LOB/sway/buckling noted. Dynamic balance in a standing position: Fair(+). Intermittent times of unsteadiness or requesting to ambulate with UE supprot via furniture or IV pole. Endurance: fair. Coordination: Upper and lower extremity gross motor coordination grossly intact. Therapeutic/Functional Activities: Bed Mobility: Patient moves from supine to/from sit requiring verbal cues only. Verbal cues for bed features as patient has them at home. HOB elevated. Bedrail. Transfers: Patient transferred sit to/from stand requiring stand by assistance. Patient transferred to/from the toilet requiring stand by assistance. Patient used the following equipment: Grab bars. Locomotion/Wheelchair: Not assessed. Locomotion/Gait/Ambulation: Patient was stand by assist with gait/ambulation for approximately 25 feet, 5 feet, 7 feet . Patient requires the following assistive device(s): Handrail/wall/furniture. Patient occasionally reaching for room furniture. No obvious LOB/sway/buckling noted. Stairs: Patient was contact guard assist of 1 person for 4 steps up/down on 10-inch step stool brought into room (due to patient urge incontinence, maintained in room) . Patient used the following equipment: Unilateral Railing. Vital Signs: Asymptomatic throughout session. Outcome Measures: [facility] AM-PAC "6 Clicks" Basic Mobility Inpatient Short Form: Turning over in bed: A little difficulty (3) Sitting down on and standing up from a chair with arms: A little difficulty (3) Moving from lying on back to sitting on the side of the bed: A little difficulty (3) Moving to and from a bed to a chair (including a wheelchair): A little help (3) Walking in hospital room: A little help (3) Climbing 3-5 steps with a railing: A little help (3) Raw Score 18 /24. Interventions: None provided today. Education: Educational needs: Safe mobility. Treatment plan. Body mechanics/postural changes. Rehabilitation techniques and procedures. Home ergonomics. Pain management. Medical equipment options. Role of acute PT. Risks to immobility. Safe discharge planning. Call vallejo utilization Barriers to Learning: Acuity of illness/injury. Cognitive limitations. Learning Preference: Auditory. Demonstration. Kinesthetic/tactile. Mode of education provided: Demonstration. Explanation. Audience: Patient. Family. Education Provided: Safe mobility. Treatment plan. Body mechanics/postural changes. Rehabilitation techniques and procedures. Home ergonomics. Pain management. Medical equipment options. Role of acute PT. Risks to immobility. Safe discharge planning. Call vallejo utilization . Response: Applied knowledge. Indicates understanding. No evidence of learning. Requires cues (auditory/physical). Verbalized understanding. ASSESSMENT Moderate Complexity Evaluation: A history of present problem with 1-2 personal factors and/or comorbidities that impact the plan of care. An evolving clinical presentation with changing characteristics. Clinical decision-making of moderate complexity using standardized patient assessment instrument and/or measurable assessment of functional outcome. Response to Evaluation: The session was tolerated well. Patient with noticeably memory and cognitive deficits, however, willing to mobilize to tolerance with encouragement. Patient wiht stool incontinence during session. Session terminated with patients semi-reclined in bed, all lines intact, all needs met. Bed alarm was on at end of session. Call vallejo was in patient's reach at end of session. Pain: Yes, pain is unchanged from start of today's treatment. Other Rehabilitation Considerations: Patient's progress may be impaired by the following potential barriers: Medical condition. Support Structure: Support structure is good. Family member willing to assist patient. Family looking into 20/11 assist. Strengths: Independent premorbid function. Social/family support. Goals: Patient's functional goals: PLOF The patient's therapy goals are based on limitations/impairments in the following areas: Balance. Coordination. Gait. Stairs/Curbs/Environmental barrier negotiation. Strength. Transfers. Short Term Goals: 1. In 1 week, patient will complete functional transfers independently 2. In 1 week, patient will ambulate a distance of at least 200 feet modified independently with least restrictive device if indicated 3. In 1 week, patient will negotiate at least 4 steps with unilateral UE support with supervision Fpc Goals: Not applicable. PLAN Treatment Frequency, Duration and Interventions: Restorative Physical Therapy is recommended for 5x/week for 1 week. Treatment is to include: Gait Training. Manual Therapy. Neuromuscular Re-education. Therapeutic Activity. Therapeutic Exercise. Self Care/Home Management. Equipment Provided: None issued this visit. Equipment Recommended: To be assessed. Recommended Physical Therapy Follow Up: Upon acute care discharge, the following is currently recommended: 24 hour supervision. Outpatient Physical Therapy. Recommended Consults: None currently. Development of Plan of Care: Participants included: Patient. Nurse. Family. Medical Provider. Occupational Therapist . Goal Review Visit Number: 1 Visit Number: Today's visit is number 1 Program: Oncology (Therapist may be reached on [employer]) SESSION: Duration: 59 CHARGES: - 0 Units - 0 Units - 0 Units 55991 - CHARGE - PT EVAL; MODERATE COMPLEXITY 4 Units - CANCER VISIT 1 Units - ORDER - Physical Therapy Treatment 1 Units Total treatment minutes: 59.00 Minutes Electronically Signed by: Heidi Francis PT, DPT, 01/14/2021 10:43:39 AM * Plan of Care - Montez Narayan RN - 01/14/2021 1:41 AM EDT Problem: Sensory Perception is less than 4 (< 4) Goal: Improve Sensory Perception Outcome: Progressing Problem: Moisture is less than 4 (< 4) Goal: Eliminate Moisture Outcome: Progressing Problem: Activity is less than 4 (< 4) Goal: Improve Activity Outcome: Progressing Problem: Mobility is less than 4 (< 4) Goal: Improve Mobility Outcome: Progressing Problem: Nutrition is Less than 3 (< 3) Goal: Improve Nutrition Outcome: Progressing Problem: Friction Shear is less than 3 (< 3) Goal: Eliminate Friction Shear Outcome: Progressing Problem: Risk for Falls Goal: No falls during hospitalization Description: Patient will not fall during hospitalization. Outcome: Progressing Problem: Knowledge Deficit Goal: Knowledge - personal safety Description: Patient will verbalize understanding of fall prevention. Outcome: Progressing Problem: INJURY, RISK FOR Goal: Patient will not be injured from a fall during hospitalization Outcome: Progressing Problem: Knowledge Deficit Goal: Patient requires education regarding causes of high risk injury from a fal l Outcome: Progressing Goal: Patient's family requires education regarding causes of high risk injury f rom a fall Outcome: Progressing * Plan of Care - Laly Crawford RN - 01/13/2021 2:29 AM EDT Problem: Sensory Perception is less than 4 (< 4) Goal: Improve Sensory Perception Outcome: Progressing Problem: Moisture is less than 4 (< 4) Goal: Eliminate Moisture Outcome: Progressing Problem: Activity is less than 4 (< 4) Goal: Improve Activity Outcome: Progressing Problem: Mobility is less than 4 (< 4) Goal: Improve Mobility Outcome: Progressing Problem: Nutrition is Less than 3 (< 3) Goal: Improve Nutrition Outcome: Progressing Problem: Friction Shear is less than 3 (< 3) Goal: Eliminate Friction Shear Outcome: Progressing Problem: Risk for Falls Goal: No falls during hospitalization Description: Patient will not fall during hospitalization. Outcome: Progressing Problem: Knowledge Deficit Goal: Knowledge - personal safety Description: Patient will verbalize understanding of fall prevention. Outcome: Progressing Problem: INJURY, RISK FOR Goal: Patient will not be injured from a fall during hospitalization Outcome: Progressing Problem: Knowledge Deficit Goal: Patient requires education regarding causes of high risk injury from a fal l Outcome: Progressing Goal: Patient's family requires education regarding causes of high risk injury f rom a fall Outcome: Progressing Problem: Hemodynamic Status Goal: Patient will remain hemodynamically stable Description: Patient's vital signs, oxygenation, and labs will be monitored and deviations addressed. Outcome: Progressing Problem: Pain Goal: Pain is controlled to patient's desired goal Outcome: Progressing Problem: Risk for impaired skin integrity Goal: Skin integrity is maintained or improved Outcome: Progressing Problem: Fall Prevention Goal: No fall during Hospitalization Outcome: Progressing Problem: Impaired Physical Mobility Goal: Patient will maintain maximum physical mobility within prescribed activity and weight bearing restrictions Outcome: Progressing Problem: Risk for DVT/PE Goal: Patient will not develop a DVT/PE Outcome: Progressing Problem: Risk for Gastrointestinal Complications Goal: Patient will not develop gastrointestinal complications Description: Nausea/vomiting, constipation, dehydration Outcome: Progressing Problem: Self Care Deficit Goal: Patient will perform Activities of Daily Living at optimal level Outcome: Progressing Problem: Psychosocial Needs Goal: Psychosocial needs will be met during this hospitalization Outcome: Progressing Problem: Discharge Needs Goal: Patient discharge needs are met Description: Collaborate with interdisciplinary team and initiate plans and inte rventions as needed Outcome: Progressing Problem: Spiritual Care Plan Goal: To assess spiritual care needs and hopes and mobilize spiritual resources for patients/families/caregivers that support/enhance quality of life related to hospitalization Description: To assess spiritual care needs and hopes and mobilize spiritual res ources for patients/families/caregivers that support/enhance quality of life rel ated to hospitalization. Outcome: Progressing * Provider Notified - Caro Hanley RN - 01/12/2021 6:25 PM EDT Ionized calcium 1.75 Provider Name: Team 9 cross cover Provider Role: Cross cover Method of Communication: In person, cross cover on unit Response: No new orders, consistent with previous labs Notification Time: 1820 * Provider Notified - Caro Hanley RN - 01/12/2021 2:57 PM EDT Positive blood culture Anaerobic Provider Name:Dr Sondra MD Provider Role: Attending provider Method of Communication: In person on the unit Response: Patient currently on antibiotics Notification Time: 1450 * Plan of Care - Caro Hanley RN - 01/12/2021 1:14 PM EDT Problem: Sensory Perception is less than 4 (< 4) Goal: Improve Sensory Perception Outcome: Progressing Problem: Moisture is less than 4 (< 4) Goal: Eliminate Moisture Outcome: Progressing Problem: Activity is less than 4 (< 4) Goal: Improve Activity Outcome: Progressing Problem: Mobility is less than 4 (< 4) Goal: Improve Mobility Outcome: Progressing Problem: Nutrition is Less than 3 (< 3) Goal: Improve Nutrition Outcome: Progressing Problem: Friction Shear is less than 3 (< 3) Goal: Eliminate Friction Shear Outcome: Progressing Problem: Risk for Falls Goal: No falls during hospitalization Description: Patient will not fall during hospitalization. Outcome: Progressing Problem: Knowledge Deficit Goal: Knowledge - personal safety Description: Patient will verbalize understanding of fall prevention. Outcome: Progressing Problem: INJURY, RISK FOR Goal: Patient will not be injured from a fall during hospitalization Outcome: Progressing Problem: Knowledge Deficit Goal: Patient requires education regarding causes of high risk injury from a fal l Outcome: Progressing Goal: Patient's family requires education regarding causes of high risk injury f rom a fall Outcome: Progressing Problem: Hemodynamic Status Goal: Patient will remain hemodynamically stable Description: Patient's vital signs, oxygenation, and labs will be monitored and deviations addressed. Outcome: Progressing Problem: Pain Goal: Pain is controlled to patient's desired goal Outcome: Progressing Problem: Risk for impaired skin integrity Goal: Skin integrity is maintained or improved Outcome: Progressing Problem: Fall Prevention Goal: No fall during Hospitalization Outcome: Progressing Problem: Impaired Physical Mobility Goal: Patient will maintain maximum physical mobility within prescribed activity and weight bearing restrictions Outcome: Progressing Problem: Risk for DVT/PE Goal: Patient will not develop a DVT/PE Outcome: Progressing Problem: Risk for Gastrointestinal Complications Goal: Patient will not develop gastrointestinal complications Description: Nausea/vomiting, constipation, dehydration Outcome: Progressing Problem: Self Care Deficit Goal: Patient will perform Activities of Daily Living at optimal level Outcome: Progressing Problem: Psychosocial Needs Goal: Psychosocial needs will be met during this hospitalization Outcome: Progressing Problem: Discharge Needs Goal: Patient discharge needs are met Description: Collaborate with interdisciplinary team and initiate plans and inte rventions as needed Outcome: Progressing * Plan of Care - Caro Hanley RN - 01/11/2021 6:16 PM EDT Problem: Sensory Perception is less than 4 (< 4) Goal: Improve Sensory Perception Outcome: Progressing Problem: Moisture is less than 4 (< 4) Goal: Eliminate Moisture Outcome: Progressing Problem: Activity is less than 4 (< 4) Goal: Improve Activity Outcome: Progressing Problem: Mobility is less than 4 (< 4) Goal: Improve Mobility Outcome: Progressing Problem: Nutrition is Less than 3 (< 3) Goal: Improve Nutrition Outcome: Progressing Problem: Friction Shear is less than 3 (< 3) Goal: Eliminate Friction Shear Outcome: Progressing Problem: Risk for Falls Goal: No falls during hospitalization Description: Patient will not fall during hospitalization. Outcome: Progressing Problem: Knowledge Deficit Goal: Knowledge - personal safety Description: Patient will verbalize understanding of fall prevention. Outcome: Progressing Problem: INJURY, RISK FOR Goal: Patient will not be injured from a fall during hospitalization Outcome: Progressing Problem: Knowledge Deficit Goal: Patient requires education regarding causes of high risk injury from a fal l Outcome: Progressing Goal: Patient's family requires education regarding causes of high risk injury f rom a fall Outcome: Progressing Problem: Hemodynamic Status Goal: Patient will remain hemodynamically stable Description: Patient's vital signs, oxygenation, and labs will be monitored and deviations addressed. Outcome: Progressing Problem: Pain Goal: Pain is controlled to patient's desired goal Outcome: Progressing Problem: Risk for impaired skin integrity Goal: Skin integrity is maintained or improved Outcome: Progressing Problem: Fall Prevention Goal: No fall during Hospitalization Outcome: Progressing Problem: Impaired Physical Mobility Goal: Patient will maintain maximum physical mobility within prescribed activity and weight bearing restrictions Outcome: Progressing Problem: Risk for DVT/PE Goal: Patient will not develop a DVT/PE Outcome: Progressing Problem: Risk for Gastrointestinal Complications Goal: Patient will not develop gastrointestinal complications Description: Nausea/vomiting, constipation, dehydration Outcome: Progressing Problem: Self Care Deficit Goal: Patient will perform Activities of Daily Living at optimal level Outcome: Progressing Problem: Psychosocial Needs Goal: Psychosocial needs will be met during this hospitalization Outcome: Progressing Problem: Discharge Needs Goal: Patient discharge needs are met Description: Collaborate with interdisciplinary team and initiate plans and inte rventions as needed Outcome: Progressing documented in this encounter Plan of Treatment Care Team Description Date Type Specialty Re Mclean MD [facility] [address] [place] [address] 01/18/2021 Procedure visit Radiation Oncology 01/18/2021 Office Visit Radiation Oncology 01/19/2021 Office Visit Radiation Oncology Óscar Peralta MD [facility] [place] [address] 02/01/2021 Office Visit Hematology and Onco Georgi Fuentes MD [address] [place] [phone] 03/30/2021 Office Visit Urology Date/Time Name Type Priority Associated Diag noses 01/12/2021 5:41 PM EDT PTH-related peptide Lab Routine 01/13/2021 1:42 AM EDT Vitamin B1 Lab Routine 01/14/2021 12:03 PM EDT Blood culture ; Microbiology Routine Peripheral 01/14/2021 7:58 PM EDT Blood culture ; Microbiology Routine Peripheral 01/14/2021 11:19 AM EDT Vitamin B6 Lab Routine 01/15/2021 12:45 PM EDT Cytology, Non Pathology and Routine Gynecological Cytology Order Schedule Name Type Priority Associated Diag noses Once for 1 Occurrences starting 01/13/20 21 until 01/12/2021 PTH-related peptide Lab Routine Once for 1 Occurrences starting 01/14/20 21 until 01/13/2021 Vitamin B1 Lab Routine Once for 1 Occurrences starting 01/15/20 21 until 01/14/2021 CBC Lab Routine Once for 1 Occurrences starting 01/15/20 21 until 01/14/2021 Vitamin B6 Lab Routine STAT for 1 Occurrences starting 01/16/20 21 until 01/15/2021 Prepare RBC 1 Unit Blood Bank STAT Once for 1 Occurrences starting 01/16/20 21 until 01/15/2021 Fecal occult blood, upper Microbiology Routine GI (Hemoccult-NAY) Once for 1 Occurrences starting 01/16/20 21 until 01/15/2021 Fecal occult blood, Lower Microbiology Routine GI (Hemoccult-ICT), FIT Testing Once for 1 Occurrences starting 01/16/20 21 until 01/15/2021 Cytology, Non Pathology and Routine Gynecological Cytology Once for 1 Occurrences starting 01/16/20 21 until 01/15/2021 Phosphorus Level Lab Routine Once for 1 Occurrences starting 01/16/20 21 until 01/15/2021 Calcium, ionized Lab Routine Once for 1 Occurrences starting 01/16/20 21 until 01/15/2021 Albumin Lab Routine Once for 1 Occurrences starting 01/16/20 21 until 01/15/2021 CBC Lab Routine Daily for 30 Days starting 01/16/2021 un til 02/14/2021, 2 completed CBC and Differential Lab Routine AM Draw for 3 Occurrences starting 01/17 until 01/19/2021, 1 completed Basic Metabolic Panel Lab Routine respiratory use only - every 4 hours whi le awake for 4 Days starting 01/16/2021 until 01/19/2021 Incentive Spirometry RT Respiratory Routine Teach Care Order Schedule Name Type Priority Associated Diag noses Ordered: 01/17/2021 Referral to home health Outpatient Routine Pain d ue to neoplasm Referral Prostate cancer metastatic to bone Ordered: 01/17/2021 Referral to Urology Outpatient Routine Malignant tumor of Referral prostate Ordered: 01/17/2021 Referral to Dentistry Outpatient Routine Osteonec rosis of jaw Referral Health Maintenance Due Date Last Done Comments MMR Vaccines (1 of 1 - 1961 Standard series) Varicella Vaccines (1 of 1961 2 - 2-dose childhood series) Pneumococcal Vaccine: 65+ 1966 Years (1 of 4 - PCV13) Pneumococcal Vaccine: 1966 Pediatrics (0 to 5 Years) and At-Risk Patients (6 to 64 Years) (1 of 4 - PCV13) DTaP,Tdap,and Td Vaccines 07/09/1967 (1 - Tdap) COVID-19 Vaccine (1) 1972 HIV Screening 1973 Colon Cancer Screening 10 2010 yrs Zoster Vaccines (1 of 2) 2010 Influenza Vaccine 01/28/2021 Hepatitis C Screening (B. Completed 01/12/[id number]) HIB Vaccines Aged Out No longer eligible based on patient's age to complete this topic Hepatitis A Vaccines Aged Out No longer eligibl e based on patient's age to complete this topic Hepatitis B Vaccines Aged Out No longer eligibl e based on patient's age to complete this topic IPV Vaccines Aged Out No longer eligible based on patient's age to complete this topic documented as of this encounter Implants Device Identifier Shelf Expiration Date Model / Serial / L ot Implanted Type Area Manufactur er 04/29/2020 [id number] / / [id number] Port- Power Pac-10fr Dl Lpronew Chest ARAUJO S Intro - [id number] MEDICAL Implanted: Qty: 1 on 02/11/2016 by Francoise Olivares MD at [facility] 10/13/2023 [id number] / / [id number] - Resolve - 10 Fr - [id number] Right: Kidney ME RIT Implanted: Qty: 1 on 01/13/2021 by Yohan Negrete DO at [facility] documented as of this encounter Procedures Comments Procedure Name Priority Date/Time Associated Diag nosis CBC AND DIFFERENTIAL Routine 01/17/2021 3:52 AM EDT MAGNESIUM LEVEL Routine 01/17/2021 3:52 AM EDT BASIC METABOLIC PANEL Routine 01/17/2021 3:52 AM EDT CBC AND DIFFERENTIAL Routine 01/16/2021 3:23 AM EDT MAGNESIUM LEVEL Routine 01/16/2021 3:23 AM EDT BASIC METABOLIC PANEL Routine 01/16/2021 3:23 AM EDT TRANSFUSE RBC (ONCE) STAT 01/15/2021 4:46 PM EDT TYPE AND SCREEN STAT 01/15/2021 12:15 PM EDT CONFIRMATORY TYPE Routine 01/15/2021 12:20 AM EDT CBC AND DIFFERENTIAL Routine 01/15/2021 12:20 AM EDT BASIC METABOLIC PANEL Routine 01/15/2021 12:20 AM EDT BLOOD CULTURE Routine 01/14/2021 7:58 PM EDT BLOOD CULTURE Routine 01/14/2021 12:03 PM EDT COMMUNITY-ACQUIRED Routine 01/14/2021 DIARRHEA PANEL 6:19 AM EDT CBC AND DIFFERENTIAL Routine 01/14/2021 4:56 AM EDT BASIC METABOLIC PANEL Routine 01/14/2021 4:56 AM EDT URINE CATHETER CULT Routine 01/13/2021 4:46 PM EDT IR NEPHROSTOMY INSERTION Routine 01/13/2021 CHANGE 1:54 PM EDT TOTAL FE BINDING CAPACITY Routine 01/13/2021 10:32 AM EDT LACTATE DEHYDROGENASE Routine 01/13/2021 10:32 AM EDT HAPTOGLOBIN Routine 01/13/2021 10:32 AM EDT FOLATE Routine 01/13/2021 10:32 AM EDT FERRITIN LEVEL Routine 01/13/2021 10:32 AM EDT VITAMIN B12 Routine 01/13/2021 10:32 AM EDT POTASSIUM Routine 01/13/2021 6:22 AM EDT PHOSPHORUS LEVEL Routine 01/13/2021 6:22 AM EDT MAGNESIUM LEVEL Routine 01/13/2021 6:22 AM EDT CBC AND DIFFERENTIAL Routine 01/13/2021 1:42 AM EDT CALCIUM, IONIZED Routine 01/13/2021 1:42 AM EDT BASIC METABOLIC PANEL Routine 01/13/2021 1:[address] ABDOMEN PELVIS WITHOUT Routine 01/12/2021 CONTRAST [id number] 7:36 PM EDT HEPATITIS C ANTIBODY Routine 01/12/2021 5:41 PM EDT PROTIME INR Routine 01/12/2021 5:41 PM EDT CALCIUM, IONIZED Routine 01/12/2021 5:41 PM EDT US RENAL OR AORTA Routine 01/12/2021 COMPLETE [id number] 10:59 AM EDT MR BRAIN WITH AND WITHOUT Routine 01/12/2021 CONTRAST [id number] 9:53 AM EDT CALCIUM, IONIZED Routine 01/12/2021 8:24 AM EDT COVID-19 PCR Routine 01/12/2021 5:13 AM EDT CBC Routine 01/12/2021 1:11 AM EDT PHOSPHORUS LEVEL Routine 01/12/2021 1:11 AM EDT PTH, INTACT Routine 01/12/2021 1:11 AM EDT MAGNESIUM LEVEL Routine 01/12/2021 1:11 AM EDT CALCIUM, IONIZED Routine 01/12/2021 1:11 AM EDT COMPREHENSIVE METABOLIC Routine 01/12/2021 PANEL 1:11 AM EDT BASIC METABOLIC PANEL Routine 01/11/2021 6:34 PM EDT XR CHEST FRONTAL ONLY Routine 01/11/2021 [id number] 6:07 PM EDT documented in this encounter Results * Basic Metabolic Panel (01/17/2021 3:52 AM EDT) Bicarbonate 21 (L) 22 - 29 mmol/L [facility]ology Chloride 110 (H) 98 - 107 mmol/L [facility] Creatinine 1.16 0.70 - 1.20 mg/dL [facility] Glucose 101 70 - 140 mg/dL [facility] Potassium 3.6 3.4 - 5.1 mmol/L [facility] Sodium 143 136 - 145 mmol/L [facility] Blood Urea 7 (L) 8 - 23 mg/dL [facility] Nitrogen [facility] Anion Gap 12 8 - 15 mmol/L [facility]ology Osmolality, Edwin 294 275.0 - 300.0 [facility] mosm/kg [facility] Clin Pathology BUN/Cre Ratio 6 [facility]ology Calcium 9.3 8.6 - 10.0 mg/dL [facility]ology GFR Non 67 >60 mL/min/1.73m2 [facility] Upstat e [place] 2008 Med Univ Clin CDK-EPI Pathology GFR 77 >60 mL/min/1.73m2 [facility] Czech 2008 Med [facility] Clin CKD-EPI Pathology Specimen Plasma Performing Organization Address City/State/ZIP Code P ezra Number [facility] [address] [place], [place] [address] PATHOLOGY [facility] [address] [place], [place] [address] Clin Pathology * CBC and Differential (01/17/2021 3:52 AM EDT) White Blood 6.5 4.00 - 10.00 10*3/[facility]L [facility] Clin Pathology Red Blood Cell 3.07 (L) 4.60 - 6.10 10*6/uL [facility] Clin Pathology Hemoglobin 8.8 (L) 13.5 - 18.0 g/dL [facility]ology Hematocrit 27.2 (L) 41.0 - 53.0 % [facility] Pathology Mean Cell 88.6 80.0 - 96.0 fL [facility] Volume [facility] Clin Pathology Mean Cell 28.8 27.0 - 33.0 pg [facility] Hemoglobin [facility] Clin Pathology Mean Cell Hgb 32.5 32 - 36 g/dL [facility] Conc [facility] Clin Pathology Red Cell Dist 15.6 (H) 11.5 - 14.5 % [facility] Width [facility] Clin Pathology Platelet Count 395 150 - 400 10*3/uL [facility] Pathology Differential Automated Diff [facility] Type [facility] Clin Pathology Neutrophil 77 % [facility]ology Lymphocyte 15 % [facility]ology Monocyte 6 % [facility]ology Eosinophil 1 % [facility]ology Basophil 1 % [facility]ology Abs Neutrophil 5.03 1.80 - 7.00 10*3/uL [facility] Clin Pathology Abs Lymphocyte 0.98 (L) 1.20 - 4.00 10*3/uL [facility]ology Abs Monocyte 0.37 0.00 - 0.80 10*3/uL [facility]ology Abs Eosinophil 0.07 0.00 - 0.50 10*3/uL [facility] Clin Pathology Abs Basophil 0.03 0.00 - 0.20 10*3/uL [facility] Clin Pathology Nucleated Red 0 0 - 0 /100{WBCs} [facility] Blood Cells [facility] Clin Pathology Specimen EDTA Whole Blood Performing Organization Address City/State/ZIP Code P ezra Number [facility] [address] [place], [place] [address] [address] Clin Pathology * Magnesium Level (01/17/2021 3:52 AM EDT) Magnesium 1.5 (L) 1.6 - 2.6 mg/dL [facility] Clin Pathology Specimen Plasma Performing Organization Address City/[facility] Code P ezra Number [facility] [address] [place], [place] [address] [address] Clin Pathology * Basic Metabolic Panel (01/16/2021 3:23 AM EDT) Bicarbonate 20 (L) 22 - 29 mmol/L [facility]ology Chloride 107 98 - 107 mmol/L [facility]ology Creatinine 1.10 0.70 - 1.20 mg/dL [facility]ology Glucose 104 70 - 140 mg/dL [facility]ology Potassium 4.3 3.4 - 5.1 mmol/L [facility]ology Sodium 140 136 - 145 mmol/L [facility] Pathology Blood Urea 8 8 - 23 mg/dL [facility] Clin Pathology Anion Gap 13 8 - 15 mmol/L [facility] Pathology Osmolality, Edwin 289 275.0 - 300.0 [facility] mosm/kg [facility] Clin Pathology BUN/Cre Ratio 7 [facility] Pathology Calcium 9.6 8.6 - 10.0 mg/dL [facility] Clin Pathology GFR Non 71 >60 mL/min/1.73m2 [facility] Upstat e [place] 2009 Med Univ Clin CDK-EPI Pathology GFR 82 >60 mL/min/1.73m2 [facility] Czech 2009 Med [facility] Clin CKD-EPI Pathology Specimen Plasma Performing Organization Address City/[facility]/ZIP Code P ezra Number [address] [address] Clin Pathology * CBC and Differential (01/16/2021 3:23 AM EDT) White Blood 8.8 4.00 - 10.00 10*3/uL [facility] Clin Pathology Red Blood Cell 3.02 (L) 4.60 - 6.10 10*6/uL [facility] Clin Pathology Hemoglobin 9.0 (L) 13.5 - 18.0 g/dL [facility]ology Hematocrit 26.7 (L) 41.0 - 53.0 % [facility] Clin Pathology Mean Cell 88.3 80.0 - 96.0 fL [facility] Volume [facility] Clin Pathology Mean Cell 29.7 27.0 - 33.0 pg [facility] Hemoglobin [facility] Clin Pathology Mean Cell Hgb 33.6 32 - 36 g/dL [facility] Clin Pathology Red Cell Dist 16.3 (H) 11.5 - 14.5 % [facility] Width [facility] Clin Pathology Platelet Count 424 (H) 150 - 400 10*3/uL [facility] Clin Pathology Differential Automated Diff [facility] Type [facility] Clin Pathology Neutrophil 79 % [facility] Clin Pathology Lymphocyte 14 % [facility] Clin Pathology Monocyte 6 % [facility] Pathology Eosinophil 1 % [facility] Pathology Basophil 0 % [facility] Pathology Abs Neutrophil 6.98 1.80 - 7.00 10*3/uL [facility] Clin Pathology Abs Lymphocyte 1.22 1.20 - 4.00 10*3/uL [facility] Clin Pathology Abs Monocyte 0.48 0.00 - 0.80 10*3/uL [facility] Clin Pathology Abs Eosinophil 0.05 0.00 - 0.50 10*3/uL [facility] Clin Pathology Abs Basophil 0.03 0.00 - 0.20 10*3/uL [facility] Clin Pathology Nucleated Red 0 0 - 0 /100{WBCs} [facility] Blood Cells [facility] Pathology Specimen EDTA Whole Blood Performing Organization Address City/State/ZIP Code P ezra Number [facility] [address] [place], [place] [address] PATHOLOGY [facility] [address] [place], [place] [address] Clin Pathology * Magnesium Level (01/16/2021 3:23 AM EDT) Magnesium 1.8 1.6 - 2.6 mg/dL [facility] Clin Pathology Specimen Plasma Performing Organization Address City/[facility] Code P ezra Number [facility] [address] [place], [place] [address] [address] Clin Pathology * Type and Screen (01/15/2021 12:15 PM EDT) ABO/RH(D) A POS [facility] Pathology Gel Antibody NEG [facility] Clin Pathology Site Performed at [facility] Clin Pathology CPOE Order [id number] [facility] Clin Pathology Called to Afia PETER AT 1310 BY CHARANJIT [facility] Pathology UNIT NUMBER [id number] [facility]ology Blood Component Leukoreduced Red Cells [facility] Clin Pathology Unit Division 00 [facility] Clin Pathology STATUS OF UNIT ISSUED, FINAL [facility] Clin Pathology TRANSFUSION OK TO TRANSFUSE [facility] Clin Pathology CROSSMATCH Compatible [facility] Clin Pathology Specimen EDTA Whole Blood Performing Organization Address City/[facility] P ezra Number [address] 132 10 Clin Pathology * Confirmatory Type (01/15/2021 12:20 AM EDT) ABO/RH(D) A POS [facility] Clin Pathology Blood Bank Blood Type Confirmed [facility] Clin Pathology Specimen EDTA Whole Blood Performing Organization Address City/[facility]/ZIP Code P ezra Number [facility] [address] [place], [place] [address] 132 10 Clin Pathology * Basic Metabolic Panel (01/15/2021 12:20 AM EDT) Bicarbonate 21 (L) 22 - 29 mmol/L [facility] Clin Pathology Chloride 106 98 - 107 mmol/L [facility] Clin Pathology Creatinine 0.97 0.70 - 1.20 mg/dL [facility] Clin Pathology Glucose 114 70 - 140 mg/dL [facility] Clin Pathology Potassium 3.3 (L) 3.4 - 5.1 mmol/L [facility] Clin Pathology Sodium 138 136 - 145 mmol/L [facility] Clin Pathology Blood Urea 8 8 - 23 mg/dL [facility] Nitrogen [facility] Clin Pathology Anion Gap 11 8 - 15 mmol/L [facility] Clin Pathology Osmolality, Edwin 285 275.0 - 300.0 [facility] mosm/kg [facility] Clin Pathology BUN/Cre Ratio 8 [facility] Clin Pathology Calcium 10.0 8.6 - 10.0 mg/dL [facility] Clin Pathology GFR Non 88 >60 mL/min/1.73m2 [facility] e Czech 2008 Med [facility] Clin CDK-EPI Pathology GFR >90 >60 mL/min/1.73m2 [facility] 2008 [facility] CKD-EPI Pathology Specimen Plasma Performing Organization Address City/State/[facility] Code P ezra Number [facility] [address] [place], [place] 132 PATHOLOGY [facility] [address] [place], [place] [address] Clin Pathology * CBC and Differential (01/15/2021 12:20 AM EDT) White Blood 7.5 4.00 - 10.00 10*3/uL [facility] ate Cell [facility] Clin Pathology Red Blood Cell 2.41 (L) 4.60 - 6.10 10*6/uL [facility] te [facility] Clin Pathology Hemoglobin 6.9 (L) 13.5 - 18.0 g/dL [facility] Clin Pathology Hematocrit 21.2 (L) 41.0 - 53.0 % [facility] Clin Pathology Mean Cell 88.0 80.0 - 96.0 fL [facility] Volume [facility] Clin Pathology Mean Cell 28.8 27.0 - 33.0 pg [facility] Hemoglobin [facility] Clin Pathology Mean Cell Hgb 32.8 32 - 36 g/dL [facility] Univ Clin Pathology Red Cell Dist 16.4 (H) 11.5 - 14.5 % [facility] Width [facility] Clin Pathology Platelet Count 380 150 - 400 10*3/uL [facility] Clin Pathology Differential Automated Diff [facility] Type [facility] Clin Pathology Neutrophil 83 % [facility] Clin Pathology Lymphocyte 11 % [facility] Clin Pathology Monocyte 6 % [facility] Clin Pathology Eosinophil 0 % [facility] Clin Pathology Basophil 0 % [facility] Clin Pathology Abs Neutrophil 6.22 1.80 - 7.00 10*3/uL [facility] Clin Pathology Abs Lymphocyte 0.80 (L) 1.20 - 4.00 10*3/uL [facility] Clin Pathology Abs Monocyte 0.45 0.00 - 0.80 10*3/uL [facility] Clin Pathology Abs Eosinophil 0.02 0.00 - 0.50 10*3/uL [facility] Clin Pathology Abs Basophil 0.03 0.00 - 0.20 10*3/uL [facility] Clin Pathology Nucleated Red 0 0 - 0 /100{WBCs} [facility] Blood Cells [facility] Pathology Specimen EDTA Whole Blood Performing Organization Address City/State/ZIP Code P ezra Number [facility] [address] [place], [place] 1321 PATHOLOGY [facility] [address] [place], [place] [address] Clin Pathology * Community-Acquired Diarrhea Panel (01/14/2021 6:19 AM EDT) Special Request None [facility] PATHOLOGY GI Panel PCR Results [facility] Clin Pathology Campylobacter Not Detected [facility] spp [facility] Clin Pathology C. difficile Not Detected [facility] Toxin A/B Genes [facility] Clin Pathology Plesiomonas Not Detected [facility] shigelloides [facility] Clin Pathology Salmonella spp Not Detected [facility] Clin Pathology Vibrio spp Not Detected [facility] Clin Pathology Vibrio cholerae Not Detected [facility] Clin Pathology Yersinia Not Detected [facility] Enterocolitica [facility] Clin Pathology Enteroaggregati Not Detected [facility] ve E.coli [facility] Clin Pathology Enteropathogeni ENTEROPATHOGENIC ESCHERICHIA [facility] tidwell c E.coli COLI (A) [facility] Clin Pathology Enterotoxigenic Not Detected [facility] E.coli [facility] Clin Pathology Shiga-like Not Detected [facility] toxin E.coli Med Univ Clin Pathology E.coli O157 Not applicable [facility] Clin Pathology Shigella / E. Not Detected [facility] coli Med [facility] Clin Pathology Cryptosporidium Not Detected [facility] Clin Pathology Cyclospora Not Detected [facility] cayetanensis [facility] Clin Pathology Entamoeba Not Detected [facility] histolytica [facility] Clin Pathology Giardia lamblia Not Detected [facility] Clin Pathology Adenovirus F Not Detected [facility] 40/41 Med Univ Clin Pathology Astrovirus Not Detected [facility] Clin Pathology Norovirus G1/G2 Not Detected [facility] Clin Pathology Rotavirus A Not Detected [facility] Clin Pathology Sapovirus Not Detected [facility] Clin Pathology Specimen Stool Performing Organization Address [facility]/ZIP Code P ezra Number [facility] [address] [place], [place] [address] 132 10 Clin Pathology * Basic Metabolic Panel (01/14/2021 4:56 AM EDT) Bicarbonate 20 (L) 22 - 29 mmol/L [facility] Clin Pathology Chloride 103 98 - 107 mmol/L [facility] Clin Pathology Creatinine 1.15 0.70 - 1.20 mg/dL [facility] Clin Pathology Glucose 116 70 - 140 mg/dL [facility] Clin Pathology Potassium 3.4 3.4 - 5.1 mmol/L [facility] Clin Pathology Sodium 136 136 - 145 mmol/L [facility] Clin Pathology Blood Urea 10 8 - 23 mg/dL [facility] Nitrogen [facility] Clin Pathology Anion Gap 12 8 - 15 mmol/L [facility] Clin Pathology Osmolality, Edwin 281 275.0 - 300.0 [facility] mosm/kg [facility] Clin Pathology BUN/Cre Ratio 9 [facility] Clin Pathology Calcium 11.1 (H) 8.6 - 10.0 mg/dL [facility] Clin Pathology GFR Non 67 >60 mL/min/1.73m2 [facility] 2008 Med Univ Clin CDK-EPI Pathology GFR 78 >60 mL/min/1.73m2 [facility] 2008 Med Univ Clin CKD-EPI Pathology Specimen Plasma Performing Organization Address City/[facility]/ZIP Code P ezra Number [facility] [address] [place], [place] 1321 PATHOLOGY [facility] [address] [place], [place] [address] Clin Pathology * CBC and Differential (01/14/2021 4:56 AM EDT) White Blood 11.4 (H) 4.00 - 10.00 10*3/uL [facility] Clin Pathology Red Blood Cell 2.75 (L) 4.60 - 6.10 10*6/uL [facility] te [facility] Clin Pathology Hemoglobin 7.8 (L) 13.5 - 18.0 g/dL [facility] Clin Pathology Hematocrit 24.0 (L) 41.0 - 53.0 % [facility] Clin Pathology Mean Cell 87.6 80.0 - 96.0 fL [facility] Volume [facility] Clin Pathology Mean Cell 28.3 27.0 - 33.0 pg [facility] Hemoglobin [facility] Clin Pathology Mean Cell Hgb 32.3Comment: Sample warmed to 32 - 36 g/dL [facility] Conc Obtain Results [facility] Clin Pathology Red Cell Dist 16.5 (H) 11.5 - 14.5 % [facility] Width [facility] Clin Pathology Platelet Count 407 (H) 150 - 400 10*3/uL [facility] Clin Pathology Differential Automated Diff [facility] Type [facility] Clin Pathology Neutrophil 88 % [facility] Clin Pathology Lymphocyte 8 % [facility] Clin Pathology Monocyte 4 % [facility] Clin Pathology Eosinophil 0 % [facility] Clin Pathology Basophil 0 % [facility] Clin Pathology Abs Neutrophil 10.02 (H) 1.80 - 7.00 10*3/uL [facility] Clin Pathology Abs Lymphocyte 0.91 (L) 1.20 - 4.00 10*3/uL [facility] Clin Pathology Abs Monocyte 0.46 0.00 - 0.80 10*3/uL [facility] Clin Pathology Abs Eosinophil 0.01 0.00 - 0.50 10*3/uL [facility] Clin Pathology Abs Basophil 0.03 0.00 - 0.20 10*3/uL [facility] Clin Pathology Nucleated Red 0 0 - 0 /100{WBCs} [facility] Blood Cells [facility] Clin Pathology Specimen EDTA Whole Blood Performing Organization Address City/State/ZIP Code P ezra Number [facility] [address] [place], [place] 1321 PATHOLOGY [facility] [address] [place], [place] [address] Clin Pathology * Urine Catheter Culture (01/13/2021 4:46 PM EDT) Special Request None [facility] PATHOLOGY Culture/Results Test Not Performed. [facility] Improper Tube/Specimen Type [facility] Clin Pathology Specimen Nephrostomy Performing Organization Address [facility] Code P ezra Number [facility] [address] [place], [place] 1321 PATHOLOGY [facility] [address] [place], [place] [address] Clin Pathology * IR Nephrostomy Insertion Change (01/13/2021 1:54 PM EDT) Specimen Impressions Performed At IMPRESSION: [facility] Technically successful placement of a n ew 10 Fr right nephrostomy tube (10 Fr ReSolve) under [place] and [place] guidance. Plan: Exchange in approximately 8-12 we eks is recommended. Narrative Performed At [facility] EXAM: Image guided right nephrostomy tube pl acement, 01/13/2021 CLINICAL INDICATIONS: 60-year-old male with metastatic prost ate cancer now presents with right-sided hydronephrosis Contrast Type and Dose: Omnipaque 300 15 mL Fluoroscopy time 2.8 minute, Fluoroscop y Dose 11.8 mGy. Consent: Following discussion of the ri sks, benefits and alternatives of the procedure, written informed consent was obtained. Moderate Sedation: I performed Moderate Sedation with intravenous 1 mg of Versed and 50 mcg of fentanyl for 30 minutes COMPARISON: CT abdomen pelvis without c ontrast 01/12/2021 TIME OUT: Prior to the procedure a time out was performed in the presence of the patient and all personnel involved in t his case. The patient identity, procedure type, procedure side/site, and allergies were verified. Intravenous antibiotics were administer ed before and during the procedure. TECHNIQUE: Position: The patient was transferred t o the IR laboratory and was positioned prone on the procedural table. The [facility] flank area was prepped and draped using maximum sterile barrier technique. Procedure: After infiltration of local anesthesia and using direct ultrasound guidance, a 20-gauge needle was advance d into a posterolateral calyx of lower pole of right kidney. A small amount of contrast was injected and an antegrade nephrostogram was performed. It demonst rated moderate right-sided hydronephrosis. A 0.018 wire was passed through the needle into the proximal collecting system. The needle was remov ed and a 6 Egyptian coaxial dilator and sheath system was placed over the wire. Subsequently, the wire and inner dilator were exchange for an Amplatz wire which was positioned in the proximal ureter. The 6 Fr sheath was removed, serial dil atation was performed, and a 10 Fr locking pigtail nephrostomy tube was pl aced into the right renal pelvis. Contrast injected through the nephrosto my tube confirmed the locking pigtail location within the central renal pelvi s. The nephrostomy tube was secured with 2-0 Prolene suture and sterile dressing and attached to external gravity drainage bag. FINDINGS: Moderate right-sided hydroure teronephrosis. Procedure Note Interface, Received Via [facility] - 01/14/2021 8:56 AM EDT EXAM: Image guided right nephrostomy tube placement, 01/13/2021 CLINICAL INDICATIONS: 60-year-old male with metastatic prostate cancer now presents with right-sided hydronephrosis Contrast Type and Dose: Omnipaque 300 15 mL Fluoroscopy time 2.8 minute, Fluoroscopy Dose 11.8 mGy. Consent: Following discussion of the risks, benefits and alternatives of the procedure, written informed consent was obtained. Moderate Sedation: I performed Moderate Sedation with intravenous 1 mg of Versed and 50 mcg of fentanyl for 30 minutes COMPARISON: CT abdomen pelvis without contrast 01/12/2021 TIME OUT: Prior to the procedure a time out was performed in the presence of the patient and all personnel involved in this case. The patient identity, procedure type, procedure side/site, and allergies were verified. Intravenous antibiotics were administered before and during the procedure. TECHNIQUE: Position: The patient was transferred to the IR laboratory and was positioned prone on the procedural table. The right flank area was prepped and draped using maximum sterile barrier technique. Procedure: After infiltration of local anesthesia and using direct ultrasound guidance, a 20-gauge needle was advanced into a posterolateral calyx of lower pole of right kidney. A small amount of contrast was injected and an antegrade nephrostogram was performed. It demonstrated moderate right-sided hydronephrosis. A 0.018 wire was passed through the needle into the proximal collecting system. The needle was removed and a 6 Egyptian coaxial dilator and sheath system was placed over the wire. Subsequently, the wire and inner dilator were exchange for an Amplatz wire which was positioned in the proximal ureter. The 6 Fr sheath was removed, serial dilatation was performed, and a 10 Fr locking pigtail nephrostomy tube was placed into the right renal pelvis. Contrast injected through the nephrostomy tube confirmed the locking pigtail location within the central renal pelvis. The nephrostomy tube was secured with 2-0 Prolene suture and sterile dressing and attached to external gravity drainage bag. FINDINGS: Moderate right-sided hydroureteronephrosis. IMPRESSION: Technically successful placement of a new 10 Fr right nephrostomy tube (10 Fr ReSolve) under [place] and [place] guidance. Plan: Exchange in approximately 8-12 weeks is recommended. Performing Organization Address [facility] Code P ezra Number [facility] [address] [place] [address] * Folate (01/13/2021 10:32 AM EDT) Folate <2.00 (L) >4.77 ng/mL [facility] Clin Pathology Specimen Serum Performing Organization Address [facility] P ezra Number [address] [address] 10 Clin Pathology * Haptoglobin (01/13/2021 10:32 AM EDT) Haptoglobin 348 (H) 30 - 200 mg/dl [facility] Clin Pathology Specimen Plasma Performing Organization Address [facility] P ezra Number [address] 132 10 Clin Pathology * Vitamin B12 (01/13/2021 10:32 AM EDT) Vitamin B12 724 211 - 946 pg/ml [facility] Clin Pathology Specimen Plasma Performing Organization Address [facility] P ezra Number [address] 132 10 Clin Pathology * Ferritin Level (01/13/2021 10:32 AM EDT) Ferritin 583 (H) 30.0 - 400.0 ng/ml [facility] Clin Pathology Specimen Plasma Performing Organization Address [facility] P ezra Number [address] 132 10 Clin Pathology * LDH (01/13/2021 10:32 AM EDT) Lactate 169 122 - 225 U/L [facility] Clin Pathology Specimen Plasma Performing Organization Address [facility] P ezra Number [address] 132 10 Clin Pathology * Iron and TIBC (01/13/2021 10:32 AM EDT) Iron 13 (L) 59 - 158 ug/dl [facility] Clin Pathology Transferrin 114 (L) 200 - 360 mg/dL [facility] Clin Pathology Total Fe Bind 158 (L) 278 - 500 ug/dL [facility] Clin Pathology % Fe Saturation 8.0 (L) 20 - 55 % [facility] Clin Pathology Specimen Plasma Performing Organization Address [facility] P ezra Number [address] 132 10 Clin Pathology * Phosphorus Level (01/13/2021 6:22 AM EDT) Phosphorus 1.9 (L) 2.5 - 4.5 mg/dL [facility] Clin Pathology Specimen Plasma Performing Organization Address [facility] P ezra Number [address] 132 10 Clin Pathology * Magnesium Level (01/13/2021 6:22 AM EDT) Magnesium 1.5 (L) 1.6 - 2.6 mg/dL [facility] Clin Pathology Specimen Plasma Performing Organization Address City/[facility] P ezra Number [facility] [address] [place], [place] [address] 132 10 Clin Pathology * Potassium (01/13/2021 6:22 AM EDT) Potassium 3.4 3.4 - 5.1 mmol/L [facility] Clin Pathology Specimen Plasma Performing Organization Address City/[facility]/ZIP Code P ezra Number [address] 132 10 Clin Pathology * Calcium, ionized (01/13/2021 1:42 AM EDT) Calcium 1.73 (HH) 1.13 - 1.32 mmol/L DALY Cammie Kirk Comment: [facility] Clin Called to and read back by Pathology RN LISBETH SARAVIA AT 10E AT 0201 BY [id number] XW Specimen Whole Blood Performing Organization Address City/[facility] P ezra Number [address] [address] 10 Clin Pathology * Basic Metabolic Panel (01/13/2021 1:42 AM EDT) Bicarbonate 24 22 - 29 mmol/L [facility] Clin Pathology Chloride 101 98 - 107 mmol/L [facility] Clin Pathology Creatinine 1.13 0.70 - 1.20 mg/dL [facility] Clin Pathology Glucose 118 70 - 140 mg/dL [facility] Clin Pathology Potassium 3.0 (L) 3.4 - 5.1 mmol/L [facility] Clin Pathology Sodium 135 (L) 136 - 145 mmol/L [facility] Clin Pathology Blood Urea 12 8 - 23 mg/dL [facility] Clin Pathology Anion Gap 9 8 - 15 mmol/L [facility] Clin Pathology Osmolality, Edwin 280 275.0 - 300.0 [facility] mosm/kg [facility] Clin Pathology BUN/Cre Ratio 10 [facility] Clin Pathology Calcium 11.1 (H) 8.6 - 10.0 mg/dL [facility] Clin Pathology GFR Non 69 >60 mL/min/1.73m2 [facility] e Czech 2008 Med [facility] Clin CDK-EPI Pathology GFR 80 >60 mL/min/1.73m2 [facility] 2008 [facility] CKD-EPI Pathology Specimen Plasma Performing Organization Address City/State/ZIP Code P ezra Number [facility] [address] [place], [place] 1321 PATHOLOGY [facility] [address] [place], [place] [address] Clin Pathology * CBC and Differential (01/13/2021 1:42 AM EDT) White Blood 14.4 (H) 4.00 - 10.00 10*3/uL [facility] ate Cell [facility] Clin Pathology Red Blood Cell 2.59 (L) 4.60 - 6.10 10*6/uL [facility] Clin Pathology Hemoglobin 7.4 (L) 13.5 - 18.0 g/dL [facility] Clin Pathology Hematocrit 22.7 (L) 41.0 - 53.0 % [facility] Clin Pathology Mean Cell 87.6 80.0 - 96.0 fL [facility] Volume [facility] Clin Pathology Mean Cell 28.5 27.0 - 33.0 pg [facility] Hemoglobin [facility] Clin Pathology Mean Cell Hgb 32.5 32 - 36 g/dL [facility] Univ Clin Pathology Red Cell Dist 16.3 (H) 11.5 - 14.5 % [facility] Width [facility] Clin Pathology Platelet Count 391 150 - 400 10*3/uL [facility] Clin Pathology Differential Automated Diff [facility] Type [facility] Clin Pathology Neutrophil 86 % [facility] Clin Pathology Lymphocyte 6 % [facility] Clin Pathology Monocyte 8 % [facility] Clin Pathology Eosinophil 0 % [facility] Clin Pathology Basophil 0 % [facility] Clin Pathology Abs Neutrophil 12.34 (H) 1.80 - 7.00 10*3/uL [facility] Clin Pathology Abs Lymphocyte 0.91 (L) 1.20 - 4.00 10*3/uL D[facility] Clin Pathology Abs Monocyte 1.08 (H) 0.00 - 0.80 10*3/uL [facility] [place] [facility] Clin Pathology Abs Eosinophil 0.02 0.00 - 0.50 10*3/uL [facility] [place] [facility] [facility] Abs Basophil 0.04 0.00 - 0.20 10*3/uL [facility] Clin Pathology Nucleated Red 0 0 - 0 /100{WBCs} [facility] Blood Cells [facility] Clin Pathology Specimen EDTA Whole Blood Performing Organization Address City/State/ZIP Code P ezra Number [facility] CLINICAL [address] [place], [place] [address] PATHOLOGY [facility] [address] [place], [place] [address] Clin Pathology * CT Abdomen Pelvis without Contrast Transport Method: Wheelchair (01/12/2021 7:36 PM EDT) Specimen Narrative Performed At PROCEDURE INFORMATION: [facility] RAD[facility] Exam: CT Abdomen And Pelvis Without Con trast Exam date and time: 01/12/2021 7:20 PM Age: 60 years old Clinical indication: Other: Hydronephro sis TECHNIQUE: Imaging protocol: Computed tomography o f the abdomen and pelvis without contrast. Radiation optimization: All CT scans at this facility use at least one of these dose optimization techniques: automated exposure control; mA and/or kV adjustment per patient size (includes t argeted exams where dose is matched to clinical indication); or iterative marylu nstruction. COMPARISON: CT ABD PELVIS W/O CONTRAST 11/08/2020 8: 53 PM FINDINGS: Lungs: There is small area atelectasis peripherally left lower lobe. There is some mild linear atelectasis within rig ht lower lobe, left lower lobe, lingula and right middle lobe. Pleural spaces: There is very small lef t, trace right pleural effusion. Liver: Normal. No mass. Gallbladder and bile ducts: Normal. No calcified stones. No ductal dilation. Pancreas: Normal. No ductal dilation. Spleen: Normal. No splenomegaly. Adrenal glands: There is stable left ad renal gland adenoma measures approximately 11 mm. Kidneys and ureters: There is retained contrast within both kidneys, ureters and bladder from earlier study. There i s right hydronephrosis. There is a masslike wall thickening of the proxima l right ureter. Adjacent nodularity along the course of the right ureter is most consistent with bulky lymphadenopathy. There is left hydronep hrosis. Both ureters are significantly narrowed by masslike thickening of the bladder. Very limited evaluation of the bladder due to nondistention. Stomach and bowel: There is diverticulo sis of the colon without evidence of diverticulitis. No dilation.There is no evidence of intestinal obstruction. Appendix: No evidence of appendicitis. Intraperitoneal space: Unremarkable. No free air. No significant fluid collection. Vasculature: There are coronary arteria l calcifications. Lymph nodes: There is pelvic sidewall a nd pericaval lymphadenopathy. Urinary bladder: There is a Manzano radha ter in the bladder. See above. Large bladder mass difficult to measure accur ately. Reproductive: Unremarkable as visualize d. 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 There is chronic L5 spondylolysis with grade 1 a nterolisthesis. There is interval increased lytic skeletal metastasis now with a mild chronic compression of L5 with mild loss of height. There is also interval increasing size of some of the lytic lesions subtly present on the ear lier exam. There is pathologic fracture of the inferior endplate of L3 with no significant loss of height. No retropulsed bone fragment. Soft tissues: There are small fat conta ining inguinal hernias. IMPRESSION: 1. Contrast from an earlier study limit s the exam. There is however large mass lesion of the right proximal ureter dif ficult to measure accurately. This is contributing to a mild right hydronephr osis. The mass is likely invading into the right renal pelvis which also demon strates thickening and is consistent with neoplasm. Bulky regional lymphaden opathy most pronounced along the course of the right ureter. 2. Large bladder mass obscured by nondi stended bladder consistent with malignancy and is consistent with a kit [facility] jeannette malignancy. Thickening of the bladder base bilaterally is contributin g to bilateral hydronephrosis which is also mild on the left. 3. 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 New mild p athologic fractures of L3 and L4. 4. Diverticulosis. THIS DOCUMENT HAS BEEN ELECTRONICALLY S IGNED BY VIVEK KELLY MD Procedure Note Interface, Received Via [employer] - 01/14/2021 3:34 PM EDT PROCEDURE INFORMATION: Exam: CT Abdomen And Pelvis Without Contrast Exam date and time: 01/12/2021 7:20 PM Age: 60 years old Clinical indication: Other: Hydronephrosis TECHNIQUE: Imaging protocol: Computed tomography of the abdomen and pelvis without contrast. Radiation optimization: All CT scans at this facility use at least one of these dose optimization techniques: automated exposure control; mA and/or kV adjustment per patient size (includes targeted exams where dose is matched to clinical indication); or iterative reconstruction. COMPARISON: CT ABD PELVIS W/O CONTRAST 11/08/2020 8:53 PM FINDINGS: Lungs: There is small area atelectasis peripherally left lower lobe. There is some mild linear atelectasis within right lower lobe, left lower lobe, lingula and right middle lobe. Pleural spaces: There is very small left, trace right pleural effusion. Liver: Normal. No mass. Gallbladder and bile ducts: Normal. No calcified stones. No ductal dilation. Pancreas: Normal. No ductal dilation. Spleen: Normal. No splenomegaly. Adrenal glands: There is stable left adrenal gland adenoma measures approximately 11 mm. Kidneys and ureters: There is retained contrast within both kidneys, ureters and bladder from earlier study. There is right hydronephrosis. There is a masslike wall thickening of the proximal right ureter. Adjacent nodularity along the course of the right ureter is most consistent with bulky lymphadenopathy. There is left hydronephrosis. Both ureters are significantly narrowed by masslike thickening of the bladder. Very limited evaluation of the bladder due to nondistention. Stomach and bowel: There is diverticulosis of the colon without evidence of diverticulitis. No dilation.There is no evidence of intestinal obstruction. Appendix: No evidence of appendicitis. Intraperitoneal space: Unremarkable. No free air. No significant fluid collection. Vasculature: There are coronary arterial calcifications. Lymph nodes: There is pelvic sidewall and pericaval lymphadenopathy. Urinary bladder: There is a Manzano catheter in the bladder. See above. Large bladder mass difficult to measure accurately. Reproductive: Unremarkable as visualized. 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 There is chronic L5 spondylolysis with grade 1 anterolisthesis. There is interval increased lytic skeletal metastasis now with a mild chronic compression of L5 with mild loss of height. There is also interval increasing size of some of the lytic lesions subtly present on the earlier exam. There is pathologic fracture of the inferior endplate of L3 with no significant loss of height. No retropulsed bone fragment. Soft tissues: There are small fat containing inguinal hernias. IMPRESSION: 1. Contrast from an earlier study limits the exam. There is however large mass lesion of the right proximal ureter difficult to measure accurately. This is contributing to a mild right hydronephrosis. The mass is likely invading into the right renal pelvis which also demonstrates thickening and is consistent with neoplasm. Bulky regional lymphadenopathy most pronounced along the course of the right ureter. 2. Large bladder mass obscured by nondis tended bladder consistent with malignancy and is consistent with a primary malignancy. Thickening of the bladder base bilaterally is contributing to bilateral hydronephrosis which is also mild on the left. 3. There is blastic and lytic skeletal m etastasis with interval increased size and number of lytic lesions. New mild pathologic fractures of L3 and L4. 4. Diverticulosis. THIS DOCUMENT HAS BEEN ELECTRONICALLY SIGNED BY VIVEK KELLY MD Performing Organization Address City/[facility] Code P ezra Number [facility] RADIOLOG[facility] [address] [place] [address] * Protime-INR (01/12/2021 5:41 PM EDT) PT Patient 17.5 (H) 11.6 - 14.0 s [facility] Clin Pathology Int'l 1.50Comment: Routine intensity [facility] Normalized oral anticoagulation INR is [facility] Ratio typically 2.0-3.0. Target INR Patholo gy must be clinically individualized. Specimen Plasma Performing Organization Address City/[facility]/ZIP Code P ezra Number [facility] CLINICAL [address] [place], [place] [address] [address] Clin Pathology * Hepatitis C antibody (01/12/2021 5:41 PM EDT) Hepatitis C Ab Non ReactiveComment: No Non Reactive [facility] serological evidence of active [facility] infection. If recent exposure Pathology is suspected, test for HCV RNA. Specimen Serum Performing Organization Address [facility] P ezra Number [facility] [address] [place], [place] [address] [address] Clin Pathology * Calcium, ionized (01/12/2021 5:41 PM EDT) Calcium 1.75 () 1.13 - 1.32 mmol/L [facility] Cammie Kirk Comment: [facility] Clin Called to and read back by Pathology DANIEL HANLEY RN ON E AT 1817 BY 2055 Specimen Whole Blood Performing Organization Address City/State/ZIP Code P ezra Number [facility] CLINICAL [address] [place], [place] [address] PATHOLOGY [facility] [address] [place], [place] [address] Clin Pathology * US Renal or Aorta Complete (01/12/2021 10:59 AM EDT) Specimen Impressions Performed At IMPRESSION: [facility] RAD[facility] Moderate right hydroureteronephrosis wi th soft tissue thickening surrounding the right ureter measuring 10.2 x 4.2 cm x 4.[address] IVP is recommended for further evaluation. Narrative Performed At CLINICAL INDICATION: rule out bilateral hydronephrosi s / pyelonephritis. [facility] TECHNIQUE: Multiple sonographic real-ti me images of the kidneys and bladder were obtained. COMPARISON: None available at the time of this dictation. FINDINGS: The right kidney measures 10.5 cm in le ngth, and the left kidney measures 11.6 cm in length. The right kidney is normal in size, con tour, cortical thickness, and echogenicity. Moderate right hydrourete ronephrosis. Soft tissue thickening is noted surrounding the right ureter jj uring 10.2 x 4.2 cm No renal lesion is identified. No perinephric fluid collection is see n. The left kidney is normal in size, cont our, cortical thickness and echogenicity. No hydronephrosis is identified. No focal renal lesion is identified. No perinephric fluid collection is see n. Manzano catheter is noted in the bladder. Procedure Note Interface, Received Via [employer] - 01/12/2021 11:11 AM EDT CLINICAL INDICATION: rule out bilateral hydronephrosis / pyelonephritis. TECHNIQUE: Multiple sonographic real-time images of the kidneys and bladder were obtained. COMPARISON: None available at the time of this dictation. FINDINGS: The right kidney measures 10.5 cm in length, and the left kidney measures 11.6 cm in length. The right kidney is normal in size, contour, cortical thickness, and echogenicity. Moderate right hydroureteronephrosis. Soft tissue thickening is noted surrounding the right ureter measuring 10.2 x 4.2 cm No renal lesion is identified. No perinephric fluid collection is seen. The left kidney is normal in size, contour, cortical thickness and echogenicity. No hydronephrosis is identified. No focal renal lesion is identified. No perinephric fluid collection is seen. Manzano catheter is noted in the bladder. IMPRESSION: Moderate right hydroureteronephrosis with soft tissue thickening surrounding the right ureter measuring 10.2 x 4.2 cm x 4.[address] IVP is recommended for further evaluation. Performing Organization Address City/State/ZIP Code P ezra Number [facility] RADIOLOG[facility] [address] [place] [address] * MR Brain with and without Contrast (01/12/2021 9:53 AM EDT) Specimen Impressions Performed At IMPRESSION: [facility] 1. No evidence of acute hemorrhage or t erritorial infarction. 2. 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 2. There is increase high intensity are a in the periventricular and scattered subcortical white matter region, nonspe cific and likely reflect small vessel ischemic disease. Narrative Performed At [facility] RAD[facility] INDICATION: Mental status change, unkno wn cause TECHNIQUE: Multiplanar multisequence ma gnetic resonance imaging of the brain was obtained. IV gadolinium contrast was ad ministered. COMPARISONS: No prior relevant studies are available at the time of this dictation. FINDINGS: The cerebral parenchyma is no rmal in appearance. There are no areas of abnormal restricted diffusion to sugges t acute infarct. No areas of abnormal susceptibility are identified to sugges t the presence of acute hemorrhage. Questionable subependymal almeida matter h eterotopia identified adjacent to frontal horn of left lateral ventricle. The cer ebellum and brainstem are normal. The regions of the sella, pituitary, and po ntomedullary junctions are normal in configuration. There is increase intens ity area in the periventricular and scattered subcortical white matter, non specific and likely reflect small vessel ischemic disease. The extra-axial spaces are normal in si ze and morphology for the patient's age. There is no intracranial hemorrhage. Th e basal cisterns are patent. There is no shift of the midline structures. The visualized upper cervical spine is normal. The calvarium is intact. Normal flow vo ids are present, without atheroma, occlusion, or dissection. Mucosal thickening in the bilateral max illary sinuses otherwise paranasal sinuses are well aerated. The mastoid a ir cells are clear. The visualized orbits are normal in ap pearance. Procedure Note Interface, Received Via [employer] - 01/12/2021 1:22 PM EDT INDICATION: Mental status change, unknown cause TECHNIQUE: Multiplanar multisequence magnetic resonance imaging of the brain was obtained. IV gadolinium contrast was administered. COMPARISONS: No prior relevant studies are available at the time of this dictation. FINDINGS: The cerebral parenchyma is normal in appearance. There are no areas of abnormal restricted diffusion to suggest acute infarct. No areas of abnormal susceptibility are identified to suggest the presence of acute hemorrhage. Questionable subependymal almeida matter heterotopia identified adjacent to frontal horn of left lateral ventricle. The cerebellum and brainstem are normal. The regions of the sella, pituitary, and pontomedullary junctions are normal in configuration. There is increase intensity area in the periventricular and scattered subcortical white matter, nonspecific and likely reflect small vessel ischemic disease. The extra-axial spaces are normal in size and morphology for the patient's age. There is no intracranial hemorrhage. The basal cisterns are patent. There is no shift of the midline structures. The visualized upper cervical spine is normal. The calvarium is intact. Normal flow voids are present, without atheroma, occlusion, or dissection. Mucosal thickening in the bilateral maxillary sinuses otherwise paranasal sinuses are well aerated. The mastoid air cells are clear. The visualized orbits are normal in appearance. IMPRESSION: 1. No evidence of acute hemorrhage or te rritorial infarction. 2. Questionable subependymal almeida matter heterotopia identified adjacent to frontal horn of left lateral ventricle. 2. There is increase high intensity area in the periventricular and scattered subcortical white matter region, nonspecific and likely reflect small vessel ischemic disease. Performing Organization Address City/State/ZIP Code P ezra Number [facility] RADIOLOG[facility] [address] [place] [address] * Calcium, ionized (01/12/2021 8:24 AM EDT) Calcium 1.75 (HH) 1.13 - 1.32 mmol/L [facility] Cammie Kirk Comment: [facility] CALLED TO TUSHAR MCCAULEY RN ON Pathology 10E AT 0903 BY [id number] Results read back Specimen Whole Blood Performing Organization Address City/[facility]/ZIP Code P ezra Number [facility] CLINICAL [address] [place], [place] [address] PATHOLOGY [facility] [address] [place], [place] [address] Clin Pathology * COVID-19 PCR (01/12/2021 5:13 AM EDT) Specimen Nasopharyngeal Swab [facility] Description CLINICAL PATHOLOGY SARS CoV-2 2018 nCoV Real-Time RT-PCR: 2019 nCoV Real-Brandan e [facility] NOT DETECTED RT-PCR: NOT DETECTED [facility] Pathology Assay performed Test performed using [employer] [facility] Simplexa COVID-19 Direct Med [facility] Assay. This test is only for Pathology use under Food and Drug Administration's Emergency Use Authorization. Additional information is available on the following FDA websites for healthcare providers and patients. https://www.fda.gov/media/6072 20/download, https://www.fda.gov/media/3460 21/download First COVID-19 [facility] Test? CLINICAL PATHOLOGY Employed in [employer] CLINICAL setting? PATHOLOGY Symptomatic for NO [facility] COVID-19 as CLINICAL defined by CDC? PATHOLOGY Date of symptom [facility] onset? CLINICAL ([id number]) PATHOLOGY Hospitalized NO [facility] for COVID-19? CLINICAL PATHOLOGY Admitted to ICU [facility] for COVID-19? CLINICAL PATHOLOGY Resident in a [facility] CLINICAL (group) care PATHOLOGY setting? ? [facility] CLINICAL PATHOLOGY Specimen Nasopharyngeal Swab Performing Organization Address City/State/ZIP Code P ezra Number [facility] CL[facility]ICAL [address] [place], [place] [address] PATHOLOGY [facility] [address] [place], [place] [address] Clin Pathology * Phosphorus Level (01/12/2021 1:11 AM EDT) Phosphorus 2.4 (L) 2.5 - 4.5 mg/dL [facility] Clin Pathology Specimen Plasma Performing Organization Address City/[facility]/ZIP Code P ezra Number [facility] CLINICAL [address] [place], [place] [address] [address] Clin Pathology * Magnesium Level (01/12/2021 1:11 AM EDT) Magnesium 1.7 1.6 - 2.6 mg/dL [facility] Clin Pathology Specimen Plasma Performing Organization Address City/[facility] Code P ezra Number [facility] CLINICAL [address] [place], [place] [address] PATHOLOGY [facility] [address] [place], [place] [address] Clin Pathology * Comprehensive Metabolic Panel (01/12/2021 1:11 AM EDT) Albumin 2.9 (L) 3.5 - 5.2 g/dL [facility] Clin Pathology Bilirubin, 0.3 <1.2 mg/dL [facility] Total [facility] Clin Pathology Calcium 12.5 (H) 8.6 - 10.0 mg/dL [facility] Clin Pathology Chloride 100 98 - 107 mmol/L [facility] Clin Pathology Creatinine 0.93 0.70 - 1.20 mg/dL [facility] Clin Pathology Glucose 119 70 - 140 mg/dL [facility] Clin Pathology Alkaline 122 40 - 129 U/L [facility] Clin Pathology Potassium 3.6 3.4 - 5.1 mmol/L [facility] Clin Pathology Total Protein 5.9 (L) 6.4 - 8.3 g/dL [facility] Clin Pathology Sodium 137 136 - 145 mmol/L [facility] Clin Pathology AST/SGO 33 <40 U/L [facility] Clin Pathology Blood Urea 16 8 - 23 mg/dL [facility] Clin Pathology Osmolality, Edwin 286 275.0 - 300.0 [facility] mosm/kg [facility] Clin Pathology BUN/Cre Ratio 17 [facility] Clin Pathology Bicarbonate 26 22 - 29 mmol/L [facility] Clin Pathology ALT/SGP 14 <41 U/L [facility] Clin Pathology Anion Gap 11 8 - 15 mmol/L [facility] Pathology GFR Non 89 >60 mL/min/1.73m2 [facility] e Czech 2008 [facility] CDK-EPI Pathology GFR >90 >60 mL/min/1.73m2 [facility] 2008 [facility] Clin CKD-EPI Pathology Specimen Plasma Performing Organization Address City/[facility] P ezra Number [facility] [address] [place], [place] [address] [address] Clin Pathology * CBC (01/12/2021 1:11 AM EDT) White Blood 13.5 (H) 4.00 - 10.00 10*3/uL [facility] ate Cell [facility] Univ Clin Pathology Red Blood Cell 2.70 (L) 4.60 - 6.10 10*6/uL [facility] te [facility] Clin Pathology Hemoglobin 7.7 (L) 13.5 - 18.0 g/dL [facility] Clin Pathology Hematocrit 23.7 (L) 41.0 - 53.0 % [facility] Clin Pathology Mean Cell 87.9 80.0 - 96.0 fL [facility] Volume [facility] Pathology Mean Cell 28.6 27.0 - 33.0 pg [facility] Hemoglobin [facility] Clin Pathology Mean Cell Hgb 32.6 32 - 36 g/dL [facility] Conc [facility] Clin Pathology Red Cell Dist 16.1 (H) 11.5 - 14.5 % [facility] Width [facility] Clin Pathology Platelet Count 388 150 - 400 10*3/uL [facility] Clin Pathology Specimen EDTA Whole Blood Performing Organization Address City/[facility] P ezra Number [facility] [address] [place], [place] [address] [address] Clin Pathology * Calcium, ionized (01/12/2021 1:11 AM EDT) Calcium 1.77 (HH) 1.13 - 1.32 mmol/L [facility] e Ionized,W.B. Comment: [facility] Called to and read back by Pathology MARK TRAYLOR RN ON 10E AT 0141 BY 1521 Specimen Whole Blood Performing Organization Address City/State/ZIP Code P ezra Number [facility] CLINICAL [address] [place], [place] [address] [address] Clin Pathology * PTH, intact (01/12/2021 1:11 AM EDT) PTH Intact 24 15 - 65 pg/mL [facility] Clin Pathology Specimen Plasma Performing Organization Address [facility] Code P ezra Number [facility] CLINICAL [address] [place], [place] [address] [address] Clin Pathology * Basic Metabolic Panel (01/11/2021 6:34 PM EDT) Bicarbonate 21 (L) 22 - 29 mmol/L [facility] Clin Pathology Chloride 97 (L) 98 - 107 mmol/L [facility] Clin Pathology Creatinine 0.96 0.70 - 1.20 mg/dL [facility] Clin Pathology Glucose 114 70 - 140 mg/dL [facility] Clin Pathology Potassium 2.7 (LL)Comment: Results 3.4 - 5.1 mmol/L [facility] called to and read back by 10E [facility] Clin RN LYNNE CHEN AT 2023 Pathology /4245 Sodium 137 136 - 145 mmol/L [facility] Clin Pathology Blood Urea 18 8 - 23 mg/dL [facility] Clin Pathology Anion Gap 19 (H) 8 - 15 mmol/L [facility] Clin Pathology Osmolality, Edwin 287 275.0 - 300.0 [facility] mosm/kg [facility] [facility] Univ Clin Pathology BUN/Cre Ratio 19 [facility] Clin Pathology Calcium 12.1 (H) 8.6 - 10.0 mg/dL [facility] Clin Pathology GFR Non 88 >60 mL/min/1.73m2 [facility] CDK-EPI Pathology GFR >90 >60 mL/min/1.73m2 [facility] [place] 2008 Med Univ Clin CKD-EPI Pathology Specimen Plasma Performing Organization Address City/[facility]/ZIP Code P ezra Number [facility] [address] [place], [place] [address] [address] Clin Pathology * XR Chest Frontal Only (01/11/2021 6:07 PM EDT) Specimen Narrative Performed At [facility] PROCEDURE INFORMATION: Exam: XR Chest Exam date and time: 01/11/2021 5:51 PM Age: 60 years old Clinical indication: Other: Procalciton in elevated, rule out pna TECHNIQUE: Imaging protocol: XR of the chest. Views: 1 view. COMPARISON: CR Chest, 2 view PA, Lat 11/08/2020 7:12 PM FINDINGS: Tubes, catheters and devices: Port cath eter remains in place. Lungs: Low lung volumes.. No consolidation. Pleural spaces: Unremarkable. No pleura l effusion. No pneumothorax. Heart/Mediastinum: Unremarkable. No car diomegaly. Bones/joints: Unremarkable. IMPRESSION: No acute cardiopulmonary abnormality. THIS DOCUMENT HAS BEEN ELECTRONICALLY S IGNED BY CLARISSA VILLEGAS MD Procedure Note Interface, Received Via [facility] - 01/11/2021 6:34 PM EDT PROCEDURE INFORMATION: Exam: XR Chest Exam date and time: 01/11/2021 5:51 PM Age: 60 years old Clinical indication: Other: Procalcitonin elevated, rule out pna TECHNIQUE: Imaging protocol: XR of the chest. Views: 1 view. COMPARISON: CR Chest, 2 view PA, Lat 11/08/2020 7:12 PM FINDINGS: Tubes, catheters and devices: Port catheter remains in place. Lungs: Low lung volumes.. No consolidation. Pleural spaces: Unremarkable. No pleural effusion. No pneumothorax. Heart/Mediastinum: Unremarkable. No cardiomegaly. Bones/joints: Unremarkable. IMPRESSION: No acute cardiopulmonary abnormality. THIS DOCUMENT HAS BEEN ELECTRONICALLY SIGNED BY CLARISSA VILLEGAS MD Performing Organization Address City/State/ZIP Code P ezra Number [facility] [address] [place] [address] documented in this encounter Visit Diagnoses Diagnosis UTI (urinary tract infection) - Primary Urinary tract infection, site not speci fied Pain due to neoplasm Prostate cancer metastatic to bone Malignant tumor of prostate Malignant neoplasm of prostate Osteonecrosis of jaw documented in this encounter Administered Medications Action Date Dose Rate Site Medication Order MAR Action 01/17/2021 8:30 AM EDT 81 mg aspirin chewable tablet 81 mg Given 81 mg, Oral, Daily Standard, First dos e (after last reorder) on Sun01/14/21 at 0900, For 30 doses 81 mg Given 01/16/2021 8:31 AM EDT 81 mg Given 01/15/2021 8:34 AM EDT 01/17/2021 4:36 PM EDT 10 mg baclofen (LIORESAL) tablet 10 mg Given 10 mg, Oral, Three Times Daily Standard, First dose on Sun01/14/21 at 1700, For 30 days 10 mg Given 01/17/2021 8:30 AM EDT 10 mg Given 01/16/2021 8:33 PM EDT 01/17/2021 8:30 AM EDT 15 mLs chlorhexidine (PERIDEX) 0.12 % solution Given 15 mL 15 mL, Mouth/Throat, 2 Times Daily, First dose on Sun01/14/21 at 2100, For 30 days, Do not swallow. 15 mLs Given 01/16/2021 8:33 PM EDT 15 mLs Given 01/16/2021 8:31 AM EDT 01/17/2021 8:30 AM EDT 100 mg docusate sodium (COLACE) capsule 100 mg Given 100 mg, Oral, 2 Times Daily, First dose on Sun01/11/21 at 2100, For 30 days 100 mg Given 01/16/2021 8:34 PM EDT 100 mg Given 01/13/2021 8:04 AM EDT 01/17/2021 8:30 AM EDT 1 mg folic acid (FOLVITE) tablet 1 mg Given 1 mg, Oral, Daily Standard, First dose on Sun01/13/21 at 1345, For 30 days 1 mg Given 01/16/2021 8:31 AM EDT 1 mg Given 01/15/2021 8:34 AM EDT 01/16/2021 8:33 PM EDT 300 mg gabapentin (NEURONTIN) capsule 300 mg Given 300 mg, Oral, Nightly, Indications: Neuropathic Pain, First dose (after las t modification) on Sun01/11/21 at 2100, For 8 doses 300 mg Given 01/15/2021 8:26 PM EDT 300 mg Given 01/14/2021 9:05 PM EDT 01/16/2021 8:44 PM EDT 15 mg oxyCODONE (ROXICODONE) immediate release Given tablet 15 mg 15 mg, Oral, Every 4 hours PRN, Moderate Pain (Pain Scale Score 4-6), Starting on 01/16/21 at 0757, For 43 hours 15 mg Given 01/16/2021 1:11 PM EDT 01/17/2021 3:24 PM EDT 3.375 g 12.5 mL/hr piperacillin-tazobactam (ZOSYN) IVPB New Bag 3.375 g (premix) 3.375 g, Intravenous, Administer over 4 Hours, Every 8 hours, First dose (after last modification) on Neha 1 at 1000, For 7 days, This specific formulation of piperacillin-tazobactam is compatible with Lactated Ringers. 3.375 g 12.5 mL/hr New Bag 01/17/2021 5:15 AM EDT 3.375 g 12.5 mL/hr New Bag 01/16/2021 8:35 PM EDT 01/12/2021 11:10 AM EDT 17 g polyethylene glycol (MIRALAX) packet 17 Given g 17 g, Oral, Daily Standard, First dose on Sun01/12/21 at 0900, For 30 days, Mi x in 8 ounces of water, juice or milk. Avoid use in patients who require thickened liquids due to potential increased risk for aspiration. 01/17/2021 9:56 AM EDT 0.4 mg tamsulosin (FLOMAX) capsule 0.4 mg Given 0.4 mg, Oral, Daily Standard, First dose on Sun01/12/21 at 0900, For 30 days, Swallow whole. Do not crush, chew or open. 0.4 mg Given 01/16/2021 8:31 AM EDT 0.4 mg Given 01/15/2021 8:34 AM EDT Action Date Dose Rate Site Medication Order MAR Action 01/14/2021 6:12 AM EDT 2 mg Port alteplase (CATHFLO) injection 2 mg Given 2 mg, Intracatheter, Once, On Sun01/14/21 at 0000, For 1 dose, To be instilled by PICC team or IR nurse only for at least 30 minutes 01/12/2021 11:09 AM EDT 81 mg aspirin chewable tablet 81 mg Given 81 mg, Oral, Daily Standard, First dos e on Sun01/12/21 at 0900, For 30 doses 01/12/2021 11:10 AM EDT 200 Units calcitonin (MIACALCIN) injection 200 Given Units 200 Units, Intramuscular, Once, On Sun01/12/21 at 0800, For 1 dose 01/12/2021 9:24 PM EDT 200 Units calcitonin (MIACALCIN) injection 200 Given Units 200 Units, Intramuscular, Once, On Sun01/12/21 at 1845, For 1 dose 01/14/2021 4:22 PM EDT 200 Units calcitonin (MIACALCIN) injection 200 Given Units 200 Units, Subcutaneous, Once, On Sun01/14/21 at 1630, For 1 dose 01/15/2021 6:03 PM EDT 200 Units calcitonin (MIACALCIN) injection 200 Given Units 200 Units, Subcutaneous, Once, On Sun01/15/21 at 1630, For 1 dose 01/13/2021 2:10 PM EDT 50 mcg fentaNYL (SUBLIMAZE) (PF) injection Given Once PRN, Starting on Sun01/13/21 at 1410 01/17/2021 6:11 AM EDT 1 g 100 mL/hr magnesium sulfate in dextrose 5 % New Bag infusion (premix) 1 g 1 g, Intravenous, Administer over 60 Minutes, Once, On Sun01/17/21 at 0600, For 1 dose 01/13/2021 5:55 PM EDT 2 g 50 mL/hr magnesium sulfate infusion 2 g/50 mL New Bag (premix) 2 g, Intravenous, Administer over 60 Minutes, Once, On Sun01/13/21 at 1415, For 1 dose 01/15/2021 8:44 AM EDT 2 g 50 mL/hr magnesium sulfate infusion 2 g/50 mL New Bag (premix) 2 g, Intravenous, Administer over 60 Minutes, Once, On 01/15/21 at 0730, For 1 dose 01/13/2021 2:10 PM EDT 1 mg midazolam (PF) (VERSED) injection Given Once PRN, Starting on Neha 01/13/21 at 1410 01/11/2021 5:40 PM EDT 150 mL/hr NaCl infusion 0.9 % New Bag at 150 mL/hr, Intravenous, Continuous, Starting on Sun01/11/21 at 1730, For 12 hours 01/12/2021 11:02 AM EDT 150 mL/hr NaCl infusion 0.9 % New Bag at 150 mL/hr, Intravenous, Continuous, Starting on Sun01/12/21 at 0915, For 24 hours 01/13/2021 5:17 AM EDT 150 mL/hr NaCl infusion 0.9 % New Bag at 150 mL/hr, Intravenous, Continuous, Starting on Sun01/12/21 at 1415, For 24 hours 150 mL/hr New Bag 01/12/2021 4:10 PM EDT 01/13/2021 7:43 AM EDT 150 mL/hr NaCl infusion 0.9 % Restarted - at 150 mL/hr, Intravenous, Continuous, All Meds Starting on Sun01/13/21 at 0745, For 24 hours 01/15/2021 6:26 PM EDT 150 mL/hr NaCl infusion 0.9 % New Bag at 150 mL/hr, Intravenous, Continuous, Starting on Sun01/14/21 at 0730, For 48 hours 150 mL/hr Restarted - All Meds 01/15/2021 4:48 PM EDT 150 mL/hr New Bag 01/15/2021 7:55 AM EDT 01/16/2021 10:38 PM EDT 150 mL/hr NaCl infusion 0.9 % New Bag at 150 mL/hr, Intravenous, Continuous, Starting on Sun01/16/21 at 0730, For 24 hours 150 mL/hr New Bag 01/16/2021 2:44 PM EDT 150 mL/hr New Bag 01/16/2021 7:34 AM EDT 01/15/2021 6:37 PM EDT 15 mg oxyCODONE (ROXICODONE) immediate release Given tablet 15 mg 15 mg, Oral, Every 4 hours PRN, Moderate Pain (Pain Scale Score 4-6), Starting on Sun01/14/21 at 1143, For 43 hours 15 mg Given 01/15/2021 1:11 PM EDT 15 mg Given 01/15/2021 3:05 AM EDT 01/12/2021 4:16 PM EDT 7.5 mg oxyCODONE (ROXICODONE) immediate release Given tablet 7.5 mg 7.5 mg, Oral, Every 4 hours PRN, Moderate Pain (Pain Scale Score 4-6), Starting on Sun01/11/21 at 1944, For 69 hours 7.5 mg Given 01/12/2021 11:24 AM EDT 7.5 mg Given 01/12/2021 3:53 AM EDT 01/14/2021 8:21 AM EDT 7.5 mg oxyCODONE (ROXICODONE) immediate release Given tablet 7.5 mg 7.5 mg, Oral, Every 4 hours PRN, Moderate Pain (Pain Scale Score 4-6), Starting on Neha 01/13/21 at 0733, For 72 hours 7.5 mg Given 01/13/2021 5:04 PM EDT 7.5 mg Given 01/13/2021 8:13 AM EDT 01/13/2021 1:37 AM EDT 3.375 g 12.5 mL/hr piperacillin-tazobactam (ZOSYN) IVPB New Bag 3.375 g (premix) 3.375 g, Intravenous, Administer over 4 Hours, Every 8 hours, First dose on Sun01/11/21 at 1800, For 3 days, This specific formulation of piperacillin-tazobactam is compatible with Lactated Ringers. 3.375 g 12.5 mL/hr New Bag 01/12/2021 5:44 PM EDT 3.375 g 12.5 mL/hr New Bag 01/12/2021 11:08 AM EDT 01/13/2021 8:04 AM EDT 40 mEq potassium chloride (K-DUR) dissolvable Given tablet 40 mEq 40 mEq, Oral, Once, On Sun01/13/21 at 0745, For 1 dose, May be dissolved in water for patients with a G-Tube or unable to swallow. If concern for clogging G-Tube, may contact Pharmacy t o switch formulation to a powder packet. 01/14/2021 8:16 AM EDT 40 mEq potassium chloride (K-DUR) dissolvable Given tablet 40 mEq 40 mEq, Oral, Once, On Sun01/14/21 at 0730, For 1 dose, May be dissolved in water for patients with a G-Tube or unable to swallow. If concern for clogging G-Tube, may contact Pharmacy t o switch formulation to a powder packet. 01/16/2021 8:31 AM EDT 40 mEq potassium chloride (K-DUR) dissolvable Given tablet 40 mEq 40 mEq, Oral, 2 Times Daily, First dose (after last reorder) on Sun01/15/21 at 0900, For 3 doses, May be dissolved in water for patients with a G-Tube or unable to swallow. If concern for clogging G-Tube, may contact Pharmacy t o switch formulation to a powder packet. 40 mEq Given 01/15/2021 8:26 PM EDT 40 mEq Given 01/15/2021 8:34 AM EDT 01/11/2021 10:33 PM EDT 20 mEq 100 mL/hr potassium chloride 20 mEq in 100 mL IVPB New Bag (premix) 20 mEq, Intravenous, Administer over 60 Minutes, Every 1 hour, First dose on Sun01/11/21 at 2100, For 2 doses 20 mEq 100 mL/hr New Bag 01/11/2021 9:01 PM EDT 01/13/2021 4:18 AM EDT 20 mEq 100 mL/hr potassium chloride 20 mEq in 100 mL IVPB New Bag (premix) 20 mEq, Intravenous, Administer over 60 Minutes, Every 1 hour, First dose on Sun01/13/21 at 0300, For 2 doses 20 mEq 100 mL/hr New Bag 01/13/2021 3:06 AM EDT 01/12/2021 3:50 AM EDT 6 mmol 25 mL/hr potassium phosphate infusion 6 mmol/100 New Bag mL (premix) 6 mmol, Intravenous, at 25 mL/hr, Once, On Sun01/12/21 at 0315, For 1 dose, Slower infusion rates (e.g. over 4 hours) are recommended in patients with renal impairment and/or less severe hypophosphatemia. Product contains 8.8 mEq of potassium. 01/13/2021 5:57 PM EDT 6 mmol 25 mL/hr potassium phosphate infusion 6 mmol/100 New Bag mL (premix) 6 mmol, Intravenous, at 25 mL/hr, Once, On Sun01/13/21 at 1415, For 1 dose, Slower infusion rates (e.g. over 4 hours) are recommended in patients with renal impairment and/or less severe hypophosphatemia. Product contains 8.8 mEq of potassium. 01/13/2021 2:08 PM EDT sodium bicarbonate 8.4 % 8 mL in Given lidocaine (XYLOCAINE) 2 % 2 mL injectio n Once PRN, Starting on Neha 01/13/21 at 1408 documented in this encounter Active and Recently Administered Medications Times are shown in EDT. 01/16/2021 01/17/2021 Medication Order 01/15/2021 0831 (Given - Provider: Guerita Miles RN) 0830 (Given - Provider: Darlin Solorzano, EDDIE) aspirin chewable tablet 81 mg 0834 (Given - 81 mg, Oral, Daily Standard, First dose Provider: Loida Guy (after last reorder) on Sun01/14/21 at EDDIE Lopez) 0900, For 30 doses 0831 (Given - Provider: Guerita Miles RN)1744 (Given - Provider: Arminda Schmidt RN)2033 (Given - Provider: Arminda Schmidt RN) 0830 (Given - Provider: Darlin Solorzano RN)1636 (Given - Provider: Arminda Schmidt RN)2100 (Due) baclofen (LIORESAL) tablet 10 mg 0834 (Given - 10 mg, Oral, Three Times Daily Provider: Dino Guy Standard, First dose on Sun01/14/21 at EDDIE Lopez) 1803 1700, For 30 days (Given - Provider: Dino Lopez RN)202 (Given - Provider: Montez Narayan RN) calcitonin (MIACALCIN) injection 200 1803 (Given - Units (COMPLETED) Provider: Dino Guy 200 Units, Subcutaneous, Once, On Sun EDDIE Lopez) 01/15/21 at 1630, For 1 dose 0831 (Given - Provider: Guerita Miles RN)2033 (Given - Provider: Arminda Schmidt RN) 0830 (Given - Provider: Darlin Solorzano RN)2100 (Due) chlorhexidine (PERIDEX) 0.12 % solution 0834 (Given - 15 mL Provider: Dino Guy 15 mL, Mouth/Throat, 2 Times Daily, EDDIE Lopez)202 5 First dose on Sun01/14/21 at 2100, For (Given - Prov ider: 30 days, Do not swallow. Montez Narayan RN) 0834 (Not Given - Provider: Guerita Allison RN - Reason: Patient/family refused)2033 (Given - Provider: Arminda Schmidt RN) 0830 (Given - Provider: Darlin Solorzano, EDDIE)2099 (Due) docusate sodium (COLACE) capsule 100 mg 0834 (Not Gi santino - 100 mg, Oral, 2 Times Daily, First dose Provider: Dani Guy on Sun01/11/21 at 2100, For 30 days EDDIE Lopez - Reason: Patient/family refused)2025 (Not Given - Provider: Montez Narayan RN - Reason: Patient/family refused) 0831 (Given - Provider: Guerita Miles RN) 0830 (Given - Provider: Darlin Solorzano, EDDIE) folic acid (FOLVITE) tablet 1 mg 0834 (Given - 1 mg, Oral, Daily Standard, First dose Provider: Dani Guy on Neha 01/13/21 at 1345, For 30 days EDDIE Lopez) 2032 (Given - Provider: Arminda Schmidt RN) 2099 (Due) gabapentin (NEURONTIN) capsule 300 mg 2025 (Given - 300 mg, Oral, Nightly, Indications: Provider: Montez Gutierrez Neuropathic Pain, First dose (after last EDDIE Narayan) modification) on Sun01/11/21 at 2100, For 8 doses 0611 (New Bag - Provider: Montez carvalho RN) magnesium sulfate in dextrose 5 % infusion (premix) 1 g (COMPLETED) 1 g, Intravenous, Administer over 60 Minutes, Once, On 01/17/21 at 0600, For 1 dose magnesium sulfate infusion 2 g/50 mL 0844 (New Bag - (premix) (COMPLETED) Provider: Dino Guy 2 g, Intravenous, Administer over 60 EDDIE Lopez - Minutes, Once, On 01/15/21 at 0730, Comment: othe r meds For 1 dose infusing at the time) 0524 (New Bag - Provider: Montez carvalho RN)1305 (New Bag - Provider: Guerita Miles RN)2034 (New Bag - Provider: Arminda Schmidt RN) 0515 (New Bag - Provider: Montez carvalho RN)1426 (Not Given - Provider: Darlin Solorzano RN - Reason: Loss of IV access)1524 (New Bag - Provider: Darlin Solorzano, RN)1708 (Stopped - All Meds - Provider: Arminda Schmidt RN)2100 (Due - Provider: Montez Narayan RN) piperacillin-tazobactam (ZOSYN) IVPB 0449 (New Bag - 3.375 g (premix) Provider: Montez Gutierrez 3.375 g, Intravenous, Administer over 4 EDDIE Narayan)1312 Hours, Every 8 hours, First dose (New Bag - Provid er: (after last modification) on Neha 01/13/21 Dino Mendes glia, at 1000, For 7 days, This specific RN)2022 (New Bag - formulation of piperacillin-tazobactam Provider: Jann Gutierrez is compatible with Lactated Ringers. EDDIE Narayan) 0835 (Not Given - Provider: Guerita Su and, RN - Reason: Patient/family refused) 0830 (Not Given - Provider: Darlin garsia, RN - Reason: Patient/family refused) polyethylene glycol (MIRALAX) packet 17 0835 (Not Gi santino - g Provider: Dino Guy 17 g, Oral, Daily Standard, First dose EDDIE Lopez - on Sun01/12/21 at 0900, For 30 days, Mix Reason: in 8 ounces of water, juice or milk. Patient/family Avoid use in patients who require refused) thickened liquids due to potential increased risk for aspiration. 0831 (Given - Provider: Guerita Miles, EDDIE) potassium chloride (K-DUR) dissolvable 0834 (Given - tablet 40 mEq (COMPLETED) Provider: Dino Guy 40 mEq, Oral, 2 Times Daily, First dose EDDIE Lopez )2025 (after last reorder) on 01/15/21 at (Given - Prov ider: 0900, For 3 doses, May be dissolved in Montez avendano, water for patients with a G-Tube corking machine operator) unable to swallow. If concern for clogging G-Tube, may contact Pharmacy t o switch formulation to a powder packet. potassium chloride (KLOR-CON) packet 40 mEq 40 mEq, Oral, Once, On Sun01/11/21 at 2045, For 1 dose, Mix in 4 ounces of water or juice 0831 (Given - Provider: Guerita Miles RN) 0956 (Given - Provider: Darlin Solorzano, EDDIE) tamsulosin (FLOMAX) capsule 0.4 mg 0834 (Given - 0.4 mg, Oral, Daily Standard, First Provider: Dino Guy dose on Sun01/12/21 at 0900, For 30 EDDIE Lopez) days, Swallow whole. Do not crush, chew or open. 01/16/2021 01/17/2021 Medication Order 01/15/2021 NaCl infusion 0.9 % (CANCELED) 0755 (New Bag - at 150 mL/hr, Intravenous, Continuous, Provider: Alexander Guy Starting on Sun01/14/21 at 0730, For 48 EDDIE Lopez )1350 hours (Stopped - All Meds - Provider: Dino Lopez RN)1648 (Restarted - All Meds - Provider: Dino Lopez RN)1826 (New Bag - Provider: Dino Lopez RN) 0734 (New Bag - Provider: Guerita pena RN)1444 (New Bag - Provider: Chacha Adames, EDDIE)2238 (New Bag - Provider: Arminda Schmidt RN) NaCl infusion 0.9 % at 150 mL/hr, Intravenous, Continuous, Starting on Sun01/16/21 at 0730, For 24 hours 01/16/2021 01/17/2021 Medication Order 01/15/2021 acetaminophen (TYLENOL) tablet 650 mg 650 mg, Oral, Every 4 hours PRN, Mild Pain (Pain Scale Score 1-3), Starting o n Sun01/11/21 at 1717, For 30 days, Maximum daily dose of acetaminophen is 3,000 mg from all sources in 24 hours. carisoprodol (SOMA) tablet 350 mg 350 mg, Oral, Three Times Daily-PRN, muscle spasms, Starting on Sun01/11/21 at 1717, For 7 days ondansetron (ZOFRAN) tablet 8 mg 8 mg, Oral, Every 8 hours PRN, Nausea , Vomiting, Starting on Sun01/11/21 at 1717, For 30 days oxyCODONE (ROXICODONE) immediate release 0305 (Given - tablet 15 mg () Provider: Montez Gutierrez 15 mg, Oral, Every 4 hours PRN, EDDIE Narayan)131 1 Moderate Pain (Pain Scale Score 4-6), (Given - Provi jeanette: Starting on Sun01/14/21 at 1143, For 43 Dino yeh, hours RN)1837 (Given - Provider: Dino Lopez, EDDIE) 1311 (Given - Provider: Guerita Miles RN)2044 (Given - Provider: Arminda Schmidt RN) oxyCODONE (ROXICODONE) immediate releas e tablet 15 mg 15 mg, Oral, Every 4 hours PRN, Moderate Pain (Pain Scale Score 4-6), Starting on Sun01/16/21 at 0757, For 43 hours documented in this encounter Additional Health Concerns Last Indicated Resolved Time Infection Onset Date 01/14/2021 E. Coli Enteropathogenic 01/14/2021 documented as of this encounter
--- OUTSIDE RECORDS SUMMARY | 2021-02-16 11:25 | CCD ---
Author Author [facility] Organization 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 Act dunia confirmed 29315806 Problem Situational depression F43.21 Active confirmed 58030238 Problem Neuropathy G62.9 Active confirmed 865402915 Problem Essential hypertension I10 Active confirmed 66451046 Problem 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 Active confirmed 681043620 Problem Psoriasis L40.9 Active confirmed 0760028 Problem 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 Active confirmed 969097512 Problem Chronic fatigue R53.82 Active confirmed 5270 2003 Problem Major osseous defect, other site M89.78 Active conf irmed 72944780 Problem Cancer related pain G89.3 Active confirmed 780186741 Problem Obstructive uropathy N13.9 Active confirmed 8283537 Problem Carpal tunnel syndrome of right wrist G56.01 Ac tive confirmed 001638014543115 Problem Carpal tunnel syndrome of left wrist G56.02 Act dunia confirmed 564582422596355 Problem 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 Active confirmed 270794539 ALLERGIES No Known Allergies ENCOUNTERS from 1960 to 2021-02-04 Encounter Location Date Provider Diagnosis [facility] [phone] [place] [address] 07 Jan, 2021 Mann Hawkins IMMUNIZATIONS No Information SOCIAL HISTORY [...] Notes Start Da te End Date Status Gabapentin 300 MG 2 capsule Orally bid Active Lupron every 3 months Active Marinol 10 MG 1 capsule in the evening at bedtime Orally three times daily. Code D for 90 days Active May Have - please dispense 16 straight cath Urethral 2x times daily as needed for urinary obstruction from large clots for 30 day(s) Active Tamsulosin HCl 0.4 MG 1 capsule Orally Once a day Active Ondansetron 4 MG 1 tablet on the tongue and a llow to dissolve Orally every 4 q for nausea for 30 days Active May Have - 14 Cambodian straight catheter z85.46 intraurethral 10x/Day for 30 day(s) Apr, Active Clobetasol Propionate 0.05 % 1 application to affected area Externally Twice a day if rash recurs on body (not face, groin, armpits) for 30 days Active Wrist Brace/Right Large - please dispense r forearm wr ist spint without spica Wear daily and remove at bedtime for 9999 days Active Ibuprofen 800 MG 1 tablet with food or milk as needed Orally bid for 30 days Dec, Active Diclofenac Sodium 3 % 1 application Transdermal Twice a day for 30 day(s) August, Active May Have - please dispense r wrist spin t without thumb spica R hand Daily when sleeping for 9999 days Oct, Active May Have - please dispense 14 staight c ath Urethral 9 times daily as needed for urinary obstruction for 90 days Active Xtandi 40 MG 4 capsules Orally Once a day Active Soma 350 MG 1 tab Orally three times ronak ly as needed for palliative MDD 3 tabs. Code D for 90 days Active oxyCODONE HCl 5 MG 1 tablet Orally every 4 hrs as needed MD [place] [address] Peralta increased dosing Active PROCEDURES No Information RESULTS No Results REASON FOR VISIT abnormal labs MEDICAL (GENERAL) HISTORY Type Description Date Medical [...] Information ASSESSMENTS No Information PLAN OF TREATMENT Medication Medication Name Sig Start Date Stop Date Soma 350 MG 1 tab Orally three times ronak ly as needed for palliative MDD 3 tabs. Code D for 90 days Ondansetron 4 MG 1 tablet on the tongue and a llow to dissolve Orally every 4 q for nausea for 30 days Insurance Providers Payer Name Payer Address Payer Phone Insured Name Patient Relati onship to Insured Coverage Start Date Coverage End Date [facility] [address] [facility] [phone] LAURY LEDEZMA self
--- OUTSIDE RECORDS SUMMARY | 2021-02-16 11:25 | CCD ---
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 Act dunia confirmed 79423507 Problem Situational depression F43.21 Active confirmed 90107562 Problem Neuropathy G62.9 Active confirmed 179254574 Problem Essential hypertension I10 Active confirmed 61945600 Problem 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 Active confirmed 801411299 Problem Psoriasis L40.9 Active confirmed 1244161 Problem 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 Active confirmed 398505435 Problem Chronic fatigue R53.82 Active confirmed 5270 2003 Problem Major osseous defect, other site M89.78 Active conf irmed 25961193 Problem Cancer related pain G89.3 Active confirmed 839288304 Problem Obstructive uropathy N13.9 Active confirmed 5170504 Problem Carpal tunnel syndrome of right wrist G56.01 Ac tive confirmed 053684236155600 Problem Carpal tunnel syndrome of left wrist G56.02 Act dunia confirmed 651158168058361 Problem 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 Active confirmed 939369502 ALLERGIES No Known Allergies ENCOUNTERS from 1960 to 2021-02-03 Encounter Location Date Provider Diagnosis [facility] [address] [facility] [phone] [place] [address] Dec, Mann Hawkins IMMUNIZATIONS No Information SOCIAL HISTORY [...] 30 days Active May Have - 14 Slovenian straight catheter z85.46 intraurethral 10x/Day for 30 [...] Information RESULTS No Results REASON FOR VISIT pt refused services MEDICAL (GENERAL) HISTORY Type Description Date Medical [...] Start Date Coverage End Date [facility] [employer] [facility] [address] [facility] [address] LAURY LEDEZMA self
--- OUTSIDE RECORDS SUMMARY | 2021-02-16 11:25 | CCD | Summary of Care ---
Author Author [facility] Organization [facility] Address Unknown Phone Unavailable Care Team Providers Care Linter Drier Operator Name Role Phone Fabian Infante MD PCP Encounter Details Care Team Description Date Type Department Beka Ford MD [address] [phone] Prostate cancer 01/12/2021 Procedure visit [facility] RADIATION ONCOLOGY [address] [phone] Allergies No Known Active Allergiesdocumented as of this encounter (statuses as of 01/14/2021) Medications End Date Status Medication Sig Dispensed Refills Start Date Suspended aspirin 81 MG tablet Take 81 mg by 0 mouth daily Suspended calcium carbonate Take 600 mg 0 (OS-EDWIN) 600 MG TABS by mouth daily Suspended carisoprodol (SOMA) 350 Take 350 mg 0 MG tablet by mouth Four times daily as needed for Muscle spasms. Suspended tamsulosin HCl (FLOMAX) Take 0.4 mg 0 0.4 MG CAPS by mouth daily. Suspended ondansetron (ZOFRAN) 8 MG Take 1 tablet 20 tablet 5 tabletIndications: by mouth 6 Prostate cancer every 8 metastatic to bone (eight) hours as needed for Nausea or Vomiting. Additional Information Suspended SYRINGE/NEEDLE, DISP, 1 Use as 25 each 6 ML 26G X 5/8" 1 ML MISC directed. 8 Urology Kit 1 Additional Information Suspended Multiple Take by mouth 0 Vitamins-Minerals (CERTAVITE/ANTIOXIDANTS) TABS Suspended gabapentin (NEURONTIN) Take 1 180 capsule 3 300 MG capsule capsule by 8 mouth Three times daily Take 2 caps tid 600 mg per dose Additional Information Suspended fluocinolone (SYNALAR) APPLY TO 2 01/18/ 01 0.025 % ointment PSORIATIC 8 PLAQUES ON ELBOWS ONCE DAILY Suspended clobetasol (TEMOVATE) Apply 30 g 5 0.05 % ointment topically Two 9 Times Daily Additional Information Suspended dronabinol (MARINOL) 10 TAKE ONE 0 MG capsule CAPSULE BY 9 MOUTH TWO TIMES A DAY MAXIMUM DAILY DOSE 2 Suspended chlorhexidine (PERIDEX) 0 0.12 % solution 9 Suspended Syringe/Needle (Disp) 26G Use as 25 each 6 X 09/04" 1 MLIndications: directed. 0 Impotence Urology kit 1 Additional Information Suspended Xtandi 40 MG Oral Capsule TAKE 4 120 capsule 5 (Enzalutamide)Indications CAPSULES BY 1 : Primary prostate MOUTH EVERY adenocarcinoma DAY Additional Information Patient not taking. Reported on 12/28/2020 Suspended Prochlorperazine Maleate Take 1 tablet 30 tablet 1 10 MG Oral Tablet by mouth 1 (COMPAZINE)Indications: every 6 (six) Prostate cancer hours as metastatic to bone needed (Nausea/Vomit ing) Additional Information Suspended Ondansetron HCl 8 MG Oral Take 1 tablet 20 tablet 1 Tablet by mouth 1 (ZOFRAN)Indications: every 8 Prostate cancer (eight) hours metastatic to bone as needed for Nausea or Vomiting Additional Information Suspended Self-Cath Coude Tip Use as 8 each 6 directed. 1 DAILY Additional Information Suspended Lupron Depot (3-Month) Inject 22.5 0 22.5 MG Intramuscular Kit mg into the (leuprolide acetate) muscle every 3 (three) months Suspended oxyCODONE HCl 15 MG Oral Take 1 tablet 180 tablet 0 Tablet by mouth 1 (ROXICODONE)Indications: every 4 Chronic Pain (four) hours as needed for PainCancer related pain, Max Daily Dose: 90 mg Indications: Chronic Pain Additional Information Suspended PEG 3350 17 GM/SCOOP Oral Take 17 g by 510 g 5 Powder mouth daily 1 (MIRALAX)Indications: Drug-induced constipation Additional Information 12/13/2021 Suspended Senna-Docusate Sodium Take 1 tablet 30 tablet 11 8.6-50 MG Oral Tablet by mouth 1 (SENOKOT-S)Indications: daily Drug-induced constipation Additional Information Suspended SM Senna Laxative 8.6 MG Take 1 tablet 0 12/14 Oral Tablet by mouth 1 daily documented as of this encounter (statuses as of 01/14/2021) Active Problems Problem Noted Date UTI (urinary [...] Added automatically from request for mary bowling [id number] Cervical spondylosis 09/14/2017 Numbness of right hand [...] looking for interventional pain help, [place] Assessment & Plan: Formatting of this note might be differ ent from the original. Pain controlled on actual. Weight gain of concern. Executed HCP form. 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 How often do you attend buddhist or mandaeism Never 01/11/2021 services? Do you belong to any clubs or organizations such No 01/11/2021 as buddhist groups, unions, fraternal or athletic groups, or [...] of this encounter Last Filed Vital Signs Not on filedocumented in this encounter Progress Notes * Gael Zavala MD - 01/12/2021 1:00 PM EDT Radiation Oncology CT Simulation Note Indication Louis Mccann is a 60 y.o. male who was diagnosed with prostate cancer. He presents 01/12/[address] Simulation to plan a course of radiation therapy. CT Simulation Note He was placed on the CT simulator table in the supine position. The pelvis was c entered in the field of view. A vac-chico bag was made to maintain proper position ing. A Wing board was used for positioning. Radiopaque BB's were used to promise th e approximate isocenter. CT electronic repair troubleshooter was obtained to ensure that the intended treat ment area was included in scan. IV contrast was administered. Multiple axial radha ges were obtained from the entire region of interest which were reviewed for radha ge quality. Full bladder was utilized to decrease bowel and bladder dose. The scanned images were transmitted to the treatment planning system. Louis alan lerated the simulation without any complications. Dr. Ford, Beka Thornton MD. was present for the entire procedure. Gael Zavala MD Radiation Oncology, PGY-3 I was present for and supervised the entire CT simulation for Louis sood procedure and I agree with the resident's note. documented in this encounter Plan of Treatment Care Team Description Date Type Specialty Óscar Peralta MD [address] [place], [place] [phone] 01/18/2021 Office Visit Hematology and Onco logy Georgi Greene MD [address] [place] [address] 03/30/2021 Office Visit Urology Date/Time Name Type Priority Associated Diag noses 01/13/2021 2:15 PM EDT Urine suprapubic cul Microbiology Routine 01/13/2021 4:46 PM EDT Urine suprapubic cul Microbiology Routine Health Maintenance Due Date Last Done Comments MMR Vaccines (/11/1962 Standard series) Varicella Vaccines (1 of 1961 [...] Vaccine 01/28/2021 Hepatitis C Screening (B. Completed 01/12/[id number]) HIB Vaccines Aged Out No longer eligible [...] Area Manufactur er 04/29/2020 [id number] / / [id number] Port- Power Pac-10fr Dl Lpronew Chest KRAMER S Intro - [id number] MEDICAL Implanted: Qty: 1 on 02/11/2016 by Francoise Olivares MD at [facility] 10/13/2023 [id number] / / [id number] Drn - Resolve - 10 Fr - [id number] Right: Kidney ME RIT Implanted: Qty: 1 on 01/13/2021 by Yohan Negrete DO at [facility] documented as of this encounter Procedures Comments Procedure Name Priority Date/Time Associated Diag nosis URINE SUPRAPUBIC CUL Routine 01/13/2021 4:46 PM EDT URINE SUPRAPUBIC CUL Routine 01/13/2021 2:[address] SIMULATION AT RAD ONC Routine 01/12/2021 Prost ate cancer (IN OFFICE) 2:09 PM EDT documented in this encounter Results * CT Simulation At Rad Onc (In Office) (01/12/2021 2:09 PM EDT) Specimen Performing Organization Address City/State/ZIP Code P ezra Number [facility] [address] [place] [address] documented in this encounter Visit Diagnoses Diagnosis Prostate cancer Malignant neoplasm of prostate documented in this encounter
--- OUTSIDE RECORDS SUMMARY | 2021-02-16 11:25 | CCD ---
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 Act dunia confirmed 96782142 Problem Situational depression F43.21 Active confirmed 08168946 Problem Neuropathy G62.9 Active confirmed 806398150 Problem Essential hypertension I10 Active confirmed 77559455 Problem 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 Active confirmed 969333755 Problem Psoriasis L40.9 Active confirmed 9663867 Problem 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 Active confirmed 940146374 Problem Chronic fatigue R53.82 Active confirmed 5270 2003 Problem Major osseous defect, other site M89.78 Active conf irmed 11148017 Problem Cancer related pain G89.3 Active confirmed 126649289 Problem Obstructive uropathy N13.9 Active confirmed 9324957 Problem Carpal tunnel syndrome of right wrist G56.01 Ac tive confirmed 667631988714925 Problem Carpal tunnel syndrome of left wrist G56.02 Act dunia confirmed 526038419357148 Problem 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 Active confirmed 664140189 ALLERGIES No Known Allergies ENCOUNTERS from 1960 to 2021-01-21 Encounter Location Date Provider Diagnosis [facility] [address] [facility] [phone] [place] [address] Dec, Mann Hawkins IMMUNIZATIONS No Information SOCIAL [...] daily. Code D for 90 days Active Ondansetron 4 MG 1 tablet on the tongue and a llow to dissolve Orally every 4 q for nausea for 30 days Active May Have - 14 Lebanese straight catheter z85.46 intraurethral 10x/Day for 30 day(s) Apr, Active Tamsulosin HCl 0.4 MG 1 capsule Orally Once a day Active Soma 350 MG 1 tab Orally three times ronak ly as needed for palliative MDD 3 tabs. Code D for 90 days Active Clobetasol Propionate 0.05 % 1 application to affected area Externally Twice a day if rash recurs on body (not face, groin, armpits) for 30 days Active Wrist Brace/Right Large - please dispense r forearm wr ist spint without spica Wear daily and remove at bedtime for 9999 days Active May Have - please dispense 16 straight cath Urethral 2x times daily as needed for urinary obstruction from large clots for 30 day(s) Active Diclofenac Sodium 3 % 1 application [...] 4 capsules Orally Once a day Active Ibuprofen 800 MG 1 tablet with food or milk as needed Orally bid for 30 days Dec, Active oxyCODONE HCl 5 MG 1 tablet Orally every 4 hrs as needed MD [place] [address] Peralta increased dosing Active PROCEDURES No Information RESULTS No Results REASON FOR VISIT start of services delayed MEDICAL (GENERAL) HISTORY Type Description Date Medical [...] Medication Name Sig Start Date Stop Date Ondansetron 4 MG 1 tablet on the tongue and a llow to dissolve Orally every 4 q for nausea for 30 days Insurance Providers Payer Name Payer Address Payer Phone Insured Name Patient Relati onship to Insured Coverage Start Date Coverage End Date [facility]AN [facility] [address] [facility] [address] LAURY LEDEZMA self
--- OUTSIDE RECORDS SUMMARY | 2021-02-16 11:25 | CCD ---
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 Act dunia confirmed 65121388 Problem Situational depression F43.21 Active confirmed 80938398 Problem Neuropathy G62.9 Active confirmed 034928221 Problem Essential hypertension I10 Active confirmed 55029567 Problem 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 Active confirmed 549532007 Problem Psoriasis L40.9 Active confirmed 7028320 Problem 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 Active confirmed 794532215 Problem Chronic fatigue R53.82 Active confirmed 5270 2003 Problem Major osseous defect, other site M89.78 Active conf irmed 04867762 Problem Cancer related pain G89.3 Active confirmed 403035189 Problem Obstructive uropathy N13.9 Active confirmed 8966879 Problem Carpal tunnel syndrome of right wrist G56.01 Ac tive confirmed 571530413701544 Problem Carpal tunnel syndrome of left wrist G56.02 Act dunia confirmed 270021384144699 Problem 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 Active confirmed 716635158 ALLERGIES No Known Allergies ENCOUNTERS from 1960 to 2021-01-28 Encounter Location Date Provider Diagnosis [facility] [address] [facility] [phone] [place] [address] Dec, Mann Hawkins Cancer related pain G89.3 IMMUNIZATIONS No Information SOCIAL HISTORY Tobacco Use: [...] 30 days Active May Have - 14 Zambian straight catheter z85.46 intraurethral 10x/Day for 30 [...] needed MD [place] [address] Peratla increased dosing Active PROCEDURES No Information RESULTS No Results REASON FOR VISIT Soma MEDICAL (GENERAL) HISTORY Type Description Date Medical [...] No Information FUNCTIONAL STATUS No Information ASSESSMENTS Encounter Date Diagnosis Assessment Notes Treatment Notes Treatm ent Clinical Notes Dec, Cancer related pain (ICD-10 - G89.3) PLAN OF TREATMENT Medication Medication Name Sig [...] Insured Coverage Start Date Coverage End Date [facility] [address] [facility] [address] LAURY LEDEZMA self
--- OUTSIDE RECORDS SUMMARY | 2021-02-16 11:25 | CCD | Summary of Care ---
Author Author [facility] Organization [facility] Address Unknown Phone Unavailable Care Team Providers Care Acid Blower Name Role Phone Fabian Infante MD PCP Encounter Details Care Team Description Date Type Department Re Mclean MD [address] [phone] Malignant tumor of prostate (Primary Dx) 01/18/2021 Procedure visit [facility] RADIATION ONCOLOGY [address] [phone] Allergies No Known Active Allergiesdocumented as of this encounter (statuses as of 01/20/2021) Medications End Date Status Medication Sig Dispensed [...] (FERGON) every other day 01/24/2021 Active Calcitonin (Mclean) 200 1 spray by 1 mL 0 UNIT/ACT Nasal Solution Nasal route 1 (MIACALCIN) daily for 7 days documented as of this encounter (statuses as of 01/20/2021) Active Problems Problem Noted Date UTI (urinary [...] Added automatically from request for mary bowling [id number] Cervical spondylosis 09/14/2017 Numbness of right hand [...] looking for interventional pain help, first in [facility] area L ast Assessment & Plan: Formatting of this note might be differ ent from the original. Pain controlled on actual. Weight gain of concern. Executed HCP form. 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 How often do you attend taoist or buddhism Never 01/11/2021 services? Do you belong to any clubs or organizations such No 01/11/2021 as taoist groups, unions, fraternal or athletic groups, or [...] AM EDT Date Recorded COVID-19 Exposure Response 01/18/2021 11:05 AM EDT In the last month, have you been in contact with No / Unsure someone who was confirmed or suspected to have Coronavirus / COVID-19? documented as of this encounter Last Filed Vital Signs Not on filedocumented in this encounter Progress Notes * Re Mclean MD - 01/18/2021 10:15 AM EDT Radiation Oncology On-Treatment Visit Note Louis is currently undergoing a course of Radiation Therapy. He was seen by romina jewell after treatment today. Diagnosis: Cancer Staging Prostate cancer metastatic to bone Staging form: Prostate, AJCC 7th Edition - Clinical stage from 02/14/2016: Stage IV (TX, NX, M1b, PSA: 20 or greater, Gle ason X) - Signed by Óscar Peralta MD on 03/28/2016 ECOG Performance Status: 0 - Asymptomatic Prior Therapy: Treatment Site: Prostate/bladder Treatment intent: Palliative Dose in cGy No. of fractions Current Dose 2000 4 Prescribed Dose 2500 5 There is not a planned External beam boost boost. He is not receiving concurrent systemic therapy. Chemotherapy 01/14/2021 01/15/2021 01/15/2021 Day, Cycle - - - Cabazitaxel (JEVTANA) IV - - - DOCEtaxel (TAXOTERE) IV - - - leuprolide acetate (3 Month) (ELIGARD) SC - - - leuprolide acetate (LUPRON) IM - - - radium Ra 223 dichloride PER UCI IV - - - Special Request L WRIST - - GI Panel - - Campylobacter spp - - C. difficile Toxin A/B Genes - - Plesiomonas shigelloides - - Salmonella spp - - Vibrio spp - - Vibrio cholerae - - Yersinia Enterocolitica - - Enteroaggregative E.coli - - Enteropathogenic E.coli - - Enterotoxigenic E.coli - - Shiga-like toxin E.coli - - E.coli O157 - - Shigella / E. coli - - Cryptosporidium - - Cyclospora cayetanensis - - Entamoeba histolytica - - Giardia lamblia - - Adenovirus F 40/41 - - Astrovirus - - Norovirus G1/G2 - - Rotavirus A - - Sapovirus - - Specimen Description - - - SARS CoV-2 - - - Assay performed - - - First COVID-19 Test? - - - Employed in healthcare setting? - - - Symptomatic for COVID-19 as defined by CDC? - - - Date of symptom onset? ([id number]) - - - Hospitalized for COVID-19? - - - Admitted to ICU for COVID-19? - - - Resident in a congregate (group) care setting? - - - ? - - - ABO/RH(D) - A POS A POS Gel Antibody Screen - NEG Site - Performed at [place], [place] [employer] Order Number - [id number] Called to - 10E[address] [facility] AT 1310 BY Malena UNIT NUMBER - [id number] Blood Component Type - Leukoreduced Red Cells Unit Division - 00 STATUS OF UNIT - ISSUED, FINAL TRANSFUSION STATUS - OK TO TRANSFUSE CROSSMATCH RESULT - Compatible Culture/Results No growth 3 days - - Blood Bank Comment - Blood Type Confirmed Vitals: Vitals - 1 value per visit 12/28/2020 01/11/2021 01/17/2021 SYSTOLIC - 120 157 DIASTOLIC - 82 90 PULSE - 101 72 TEMPERATURE - 98.4 98.1 RESPIRATIONS - 16 17 Weight (kg) 78.926 kg 72.122 kg - HEIGHT - - - SPO2 - 96 96 BODY MASS INDEX 26.46 kg/m2 24.18 kg/m2 - PAIN SCALE - SCORE 2 0 0 PAIN SCALE - LOCATION BACK ABDOMEN - PAIN SCALE - COMMENT - - - Some recent data might be hidden Medications: Current Outpatient Medications Medication Sig Dispense Refill aspirin 81 MG tablet Take 81 mg by mouth daily (Patient not taking: Repo rted on 12/28/2020) Calcitonin (Mclean) 200 UNIT/ACT Nasal Solution (MIACALCIN) 1 spray by Na antonia route daily for 7 days 1 mL 0 carisoprodol (SOMA) 350 MG tablet Take 350 mg by mouth Four times daily a s needed for Muscle spasms. chlorhexidine (PERIDEX) 0.12 % solution clobetasol (TEMOVATE) 0.05 % ointment Apply topically Two Times Daily 30 g 5 dronabinol (MARINOL) 10 MG capsule TAKE ONE CAPSULE BY MOUTH TWO TIMES A DAY MAXIMUM DAILY DOSE 2 (Patient not taking: Reported on 12/28/2020) 0 Ferrous Gluconate 324 (38 Fe) MG Oral Tablet (FERGON) Take 1 tablet by mo uth every other day 15 tablet 2 fluocinolone (SYNALAR) 0.025 % ointment APPLY TO PSORIATIC PLAQUES ON ELB OWS ONCE DAILY 2 Folic Acid 1 MG Oral Tablet (FOLVITE) Take 1 tablet by mouth daily 30 tab let 3 gabapentin (NEURONTIN) 300 MG capsule Take 1 [...] Tablet (COMPAZINE) Take 1 tablet by m out every 6 (six) hours as needed (Nausea/Vomiting) [...] taking: Reported on 12/28/2020) 120 capsule 5 No current facility-administered medications for this visit. Wt Readings from Last 3 Encounters: 01/11/21 72.1 kg (159 lb) 12/28/20 78.9 kg (174 lb) 12/22/20 78.5 kg (173 lb) Clinical Evaluation: Subjective He is tolerating therapy without difficulty. He reports no reaction to radiatio n therapy. Energy level is fair . He was discharged from the hospital yesterda y. His [place] was removed, he is self cathing and reports some continued bright red blood with this. He denies lightheadedness. He is in a wheelchair accompani ed by his son. They are awaiting home health care. Objective Weight is stable. The skin in the irradiated area is in good condition. Image Review Reviewed images have been satisfactory. Changes made as necessary. He was asked to self-cath prior to treatment due to overdistension of his bladder while on e treatment table. Impression and Plan: Louis is tolerating radiation therapy as expected. He wa s warned of symptoms that would prompt need for emergent evaluation including in ability to cath, continued or worsening blood loss in urine or any symptoms of l ightheadedness that would suggest acute blood loss anemia requiring transfusion. The plan of care for pain includes the following intervention(s): pain is contro lled with prescription medication. We reviewed what to expect from ongoing treatment. He was counseled, encouraged , and questions were addressed. We will continue radiation therapy as planned. Re Mclean MD Technical Associate Department of Radiation Oncology [facility] documented in this encounter Plan of Treatment Care Team Description Date Type Specialty Óscar Peralta MD [address] [place] [address] [phone] 02/01/2021 Office Visit Hematology and Onco Beka Garibay MD [address] [place] [address] [facility] [address] 1st [place] [address] [phone] 02/15/2021 Office Visit Radiation Oncology Georgi Greene MD [address] [place] [phone] 03/30/2021 Office Visit Urology Health Maintenance Due Date Last Done Comments [...] Vaccine 01/28/2021 Hepatitis C Screening (B. Completed 01/12/[id number]) HIB Vaccines Aged Out No longer eligible [...] Area Manufactur er 04/29/2020 [id number] / / [id number] Port- Power Pac-10fr Dl Lpronew Chest KRAMER S Intro - [id number] MEDICAL Implanted: Qty: 1 on 02/11/2016 by Francoise Olivares MD at [facility] 10/13/2023 [id number] / / [id number] Drn - Resolve - 10 Fr - [id number] Right: Kidney ME RIT Implanted: Qty: 1 on 01/13/2021 by Yohan Negrete DO at [facility] IN[facility] documented as of this encounter Results Not on filedocumented in this encounter Visit Diagnoses Diagnosis Malignant tumor of prostate - Primary Malignant neoplasm of prostate documented in this encounter Additional Health Concerns Last Indicated Resolved Time Infection Onset Date 01/14/2021 E. Coli Enteropathogenic 01/14/2021 documented as of this encounter
--- OUTSIDE RECORDS SUMMARY | 2021-02-16 11:26 | CCD | Summary of Care ---
Author Author [facility] Organization [facility] Address Unknown Phone Unavailable Care Team Providers Care Enterprise Application Architect Name Role Phone Fabian Infante MD PCP Reason for Visit * Reason Comments Prostate Cancer * Radiation Therapy (Routine) Referred By Contact Referred To Contact Status Reason Specialty Diagnoses / Procedures Fabian Infante MD [address] [address] Beka Ford MD [address] [address] Email: [email or web address] Authorized Radiation Diagnoses Oncology Malignant neoplasm of prostate prostate cancer P rocedures Radiation Onocology Visits Encounter Details Care Team Description Date Type Department Beka Ford MD [address] [place] [address] [phone] Malignant tumor of prostate (Primary Dx) 12/28/2020 Telemedicine [facility] RADIATION ONCOLOGY [address] [place] [phone] Allergies No Known Active Allergiesdocumented as of this encounter (statuses as of 01/02/2021) Medications End Date Status Medication Sig Dispensed Refills Start Date Active aspirin 81 MG tablet Take 81 mg by 0 mouth daily Active calcium carbonate Take 600 mg 0 (OS-VINCE) 600 MG TABS by mouth daily Active carisoprodol (SOMA) 350 Take [...] (leuprolide acetate) muscle every 3 (three) months 01/09/2021 Active oxyCODONE HCl 15 MG Oral Take [...] as of this encounter (statuses as of 01/02/2021) Active Problems Problem Noted Date Carpal tunnel syndrome of right wrist 12/22/2020 [...] Added automatically from request for mary bowling [id number] Cervical spondylosis 09/14/2017 Numbness of right hand [...] looking for interventional pain help, first in [facility] area L ast Assessment & Plan: Formatting of this note might be differ ent from the original. Pain controlled on actual. Weight gain of concern. Executed HCP form. 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 Elevated PSA Left flank pain documented as of this encounter (statuses as of 01/02/2021) Resolved Problems Problem Noted Date Resolved Date Prostate cancer 02/23/2016 10/24/2016 documented as of this encounter (statuses as of 01/02/2021) Social History Date Tobacco Use Types Packs/Day Years Used Quit: 05/03/1974 Former Smoker Smokeless Tobacco: Never Used Comments Alcohol Use Standard Drinks/Week No 0 (1 standard drink = 0.6 o z pure alcohol) Sex Assigned at Date Recorded Male 09/04/2017 10:36 AM EDT Date Recorded COVID-19 Exposure Response 12/22/2020 11:48 AM EDT In the last month, have you been in contact with No / Unsure someone who was confirmed or suspected to have Coronavirus / COVID-19? documented as of this encounter Last Filed Vital Signs Reading Time Taken Comments Vital Sign - - Blood Pressure - - Pulse - - Temperature - - Respiratory Rate - - Oxygen Saturation - - Inhaled Oxygen Concentration 78.9 kg (174 lb) 12/28/2020 3:26 PM EDT Weight - - Height 26.46 12/22/2020 11:51 AM EDT Body Mass Index documented in this encounter Progress Notes * Gael Zavala MD - 12/28/2020 4:00 PM EDT Images from the original note were not included. This is a tele-medical visit. The patient was informed of the risks including se curity breach, technological failure, inability to perform a comprehensive physi vince exam which could delay or prevent an accurate diagnosis, and potential compl ications from treatment decisions rendered over a telemedical platform. The mateo ent understands and consented to the use of tele-health services. The service was provided by means of an audio/video telecommunication. Time spent on chart review , imaging review and this evaluation today: 20 minut RADIATION ONCOLOGY INITIAL CONSULT Subjective: Referring Physician: Georgi Sin MD. Diagnosis and Stage: Stage IV (M1b) prostate cancer with metastases to bone preP SA 20 Prior Therapy: 1. Lupron and Casodex 03/17/2016 2. Taxotere x6 cycles 05/30/2016 3. [place]-223 02/11/2017 4. Cabazitaxel 11/23/2020-present CIED: None ECOG Performance Status: [...] his sites of bony disease and offered [place]-223 therapy compl eted 02/11/2017. He was restarted [...] wall thickening. He was referred to us to discuss palli ative radiation to the prostate. He reports doing fair. He reports abdominal pain and poor appetite, as well as w eight loss which he attributes to taste changes he has noticed. He also complain s of chronic constipation, has not had a BM in 2 days. He has had a history of h ematuria with clots that caused outflow obstruction that was corrected by upsizi ng hs Manzano catheter. Patient Care Team: Fabian Infante MD as PCP - General (Family Medicine) Autumn Valles MD (Internal Medicine) Eldon Byrd MD as Consulting Physician (Urology) Mike Walker MD as Consulting Physician (Hospice or Palliative Medicine) Scar Fletcher MD (Neurology) Óscar Peralta MD as Consulting Physician (Hematology and Oncology) Georgi Greene MD as Consulting Physician (Urology) Past Medical History: He has a past [...] Patient has no known allergies. Medications: Current Outpatient Medications Medication Sig Dispense Refill carisoprodol (SOMA) 350 MG tablet Take 350 mg by mouth Four times daily a s needed for Muscle spasms. chlorhexidine (PERIDEX) 0.12 % solution clobetasol (TEMOVATE) 0.05 % ointment Apply topically Two Times Daily 30 g 5 fluocinolone (SYNALAR) 0.025 % ointment APPLY TO PSORIATIC PLAQUES ON ELB OWS ONCE DAILY 2 Lupron Depot (3-Month) 22.5 MG Intramuscular Kit (leuprolide acetate) Inj ect 22.5 mg into the muscle every 3 (three) months oxyCODONE HCl 15 MG Oral Tablet (ROXICODONE) Take 1 tablet by mouth every 4 (four) hours as needed for PainCancer related pain, Max Daily Dose: 90 mg In dications: Chronic Pain 180 tablet 0 PEG 3350 17 GM/SCOOP Oral Powder (MIRALAX) Take 17 g by mouth daily 510 g 5 Self-Cath Coude Tip Use as directed. DAILY 8 each 6 Syringe/Needle (Disp) 26G X 5/8" 1 ML Use as directed. Urology kit 1 25 e ach 6 SYRINGE/NEEDLE, DISP, 1 ML 26G X 5/8" 1 ML MISC Use as directed. Urology Kit 1 25 each 6 tamsulosin HCl (FLOMAX) 0.4 MG CAPS Take 0.4 mg by mouth daily. aspirin 81 MG tablet Take 81 mg by mouth daily (Patient not taking: Repo rted on 12/28/2020) calcium carbonate (OS-VINCE) 600 MG TABS Take 600 mg by mouth daily (Patie nt not taking: Reported on 12/28/2020) dronabinol (MARINOL) 10 MG capsule TAKE ONE CAPSULE BY MOUTH TWO TIMES A DAY MAXIMUM DAILY DOSE 2 (Patient not taking: Reported on 12/28/2020) 0 gabapentin (NEURONTIN) 300 MG capsule Take 1 capsule by mouth Three times daily Take 2 caps tid 600 mg per dose 180 capsule 3 Multiple Vitamins-Minerals (CERTAVITE/ANTIOXIDANTS) TABS Take by mouth ( Patient not taking: Reported on 12/28/2020) ondansetron (ZOFRAN) 8 MG tablet Take 1 tablet by mouth every 8 (eight) h ours as needed for Nausea or Vomiting. 20 tablet 5 Ondansetron HCl 8 MG Oral Tablet (ZOFRAN) Take 1 tablet by mouth every 8 (eight) hours as needed for Nausea or Vomiting 20 tablet 1 Prochlorperazine Maleate 10 MG Oral Tablet (COMPAZINE) Take 1 tablet by m outh every 6 (six) hours as needed (Nausea/Vomiting) 30 tablet 1 Senna-Docusate Sodium 8.6-50 MG Oral Tablet (SENOKOT-S) Take 1 tablet by mouth daily 30 tablet 11 SM Senna Laxative 8.6 MG Oral Tablet Take 1 tablet by mouth daily Xtandi 40 MG Oral Capsule (Enzalutamide) TAKE 4 CAPSULES BY MOUTH EVERY D AY (Patient not taking: Reported on 12/28/2020) 120 capsule 5 No current facility-administered medications for this visit. Review of Systems A complete review of systems was performed and is negative except as per HPI. Objective: Vitals - 1 value per visit 12/20/2020 12/22/2020 12/28/2020 SYSTOLIC 112 110 - DIASTOLIC 75 72 - PULSE 107 108 - TEMPERATURE 98.4 97.9 - RESPIRATIONS 16 16 - Weight (kg) 78.472 kg 78.472 kg 78.926 kg HEIGHT - 172.7 cm - SPO2 98 95 - BODY MASS INDEX 26.31 kg/m2 26.31 kg/m2 26.46 kg/m2 PAIN SCALE - SCORE 1 3 2 PAIN SCALE - LOCATION BACK BACK BACK PAIN SCALE - COMMENT - - - Some recent data might be hidden Diagnostic Imaging: CT AP 11/08/2020: Assessment & Plan: Louis Mccann is a 60 y.o. year old male with a diagnosis of metastatic pro state adenocarcinoma with invasion of the bladder neck causing hematuria. We rev iewed the NCCN guidelines and had a long discussion with the patient regarding o ur recommendations for treatment. We reviewed the pertinent radiology with the patient which showed an enlarged pr ostate compressing the rectum and making it difficult for him to have normal BM. It is also invading the bladder neck and causing causing bleeding. We discussed the goal of radiation would be palliative meant to decrease the size of the pro state, control bleeding, and improving bowel movements. We focused our discussion on the rationale, indications, logistics, benefits, an d risks associated with radiation therapy. We described the logistics of daily r adiation Sunday through Sunday over a course of approximately 4 weeks or 20 once -daily treatments to the prostate. Side effects may include but are not limited to: urinary urgency and incontinence, bowel urgency and incontinence, diarrhea, hematuria, hematochezia. Patient is currently receive Cabazitaxel with Dr. Peralta. We will discuss the case with him to coordinate holding systemic therapy during radiation to prevent worsening of expected side effects with treatment. He is scheduled to see Dr. Santosh martin again for his next cycle of chemotherapy on 01/11. The patient had multiple insightful questions which were answered to the best of our ability and to their apparent full satisfaction. He confirmed understanding of the information received today. At this time, Mr. Mccann is willing to pro ceed with radiation treatments. We will proceed with treatment planning after maría vasquez undergoes CT simulation in our department 01/11/2021 at 9:15am. Patient haven ld like to be treated at [facility]. We would be happy to see or speak with the patient at any time should there be any additional questions or concerns. The plan of care for pain includes the following intervention(s): the patient is not having any pain. The patient was seen, examined and counseled under the supervision of attending physician Dr. Ford, Beka Thornton MD. Gael Zavala MD Radiation Oncology, PGY-3 I saw and evaluated Louis Mccann. The case was discussed with the residen t and I agree with the findings documented in the resident's note. documented in this encounter Nursing Notes * Sushila Guardado, RN - 12/28/2020 4:00 PM EDT Radiation Oncology Prostate Cancer Nursing Note IPSS: 17-patient states he self caths approximately 8 times per day JUANIS: N/A-pt not sexually active Fatigue Level: Decreased Appetite/Weight Loss: yes. Description: loss of appetite Nausea/Vomiting: yes. Description: nausea, no vomiting Constipation: no Diarrhea: no Urinary Difficulty: yes. Description: pt self caths, cannot sleep more than 2 h ours at night. Voiding more on his own now Skin Reaction:no Recent Falls: no Other: n/a Narrative Patient states he is having increased weakness and low energy levels. He is drin yossi well but having a difficult time eating due to decreased appetite and nause a from treatment. I-PSS score 17. Patient states although he still self caths he is urinating more on his own now. documented in this encounter Plan of Treatment Care Team Description Date Type Specialty 01/11/2021 Clinical Radiation Oncology Support Beka Ford MD [address] [facility] 1st [place] [address] [phone] 01/11/2021 Procedure visit Radiation Oncology Óscar Peralta MD [address] [place] [address] [phone] 01/11/2021 Office Visit Hematology and Onco Georgi Fuentes MD [address] [place] [phone] 03/30/2021 Office Visit Urology Health Maintenance Due Date Last Done Comments Hepatitis C Screening (B. 1960 [id number]) MMR Vaccines (1 of 1 - 1961 Standard series) Varicella Vaccines (1 of 1961 2 - 2-dose childhood series) Pneumococcal Vaccine: 65+ 1966 Years (1 of 4 - PCV13) Pneumococcal Vaccine: 1966 Pediatrics (0 to 5 Years) and At-Risk Patients (6 to 64 Years) (1 of 4 - PCV13) DTaP,Tdap,and Td Vaccines 07/09/1967 (1 - Tdap) HIV Screening 1973 Colon Cancer Screening 10 2010 yrs Zoster Vaccines (1 of 2) 2010 Influenza Vaccine 01/28/2021 HIB Vaccines Aged Out No longer eligible [...] Area Manufactur er 04/29/2020 [id number] / / [id number] Port- Power Pac-10fr Dl Lpronew Chest KRAMER S Intro - [id number] MEDICAL Implanted: Qty: 1 on 02/11/2016 by Francoise Olivares MD at [facility] IN[facility] documented as of this encounter Results Not on filedocumented in this encounter Visit Diagnoses Diagnosis Malignant tumor of prostate - Primary Malignant neoplasm of prostate documented in this encounter
--- OUTSIDE RECORDS SUMMARY | 2021-02-16 11:26 | CCD | Summary of Care ---
Author Author [facility] Address Unknown Phone Unavailable Care Team Providers Care Piece Work Checker Name Role Phone Fabian Infante MD PCP Reason for Visit * Reason Comments Follow-up follow up Encounter Details Care Team Description Date Type Department Mike Giang MD [address] [place] [address] [phone] Cancer related pain (Primary Dx); Palliative care by specialist; Prostate cancer metastatic to bone 11/24/2020 Telemedicine Multidisciplinary Programs [address] [facility] 3rd [place] [phone] Allergies No Known Active Allergiesdocumented as of this encounter (statuses as of 11/24/2020) Medications End Date Status Medication Sig Dispensed Refills Start Date Active aspirin 81 MG tablet Take 81 mg by 0 mouth daily. Active calcium carbonate Take 600 mg 0 (OS-EDWIN) 600 MG TABS by mouth daily. Active carisoprodol (SOMA) 350 Take 350 mg [...] directed. 8 Urology Kit 1 Additional Information Patient not taking. Reported on 08/17/2020 Active Multiple Take by mouth 0 Vitamins-Minerals (CERTAVITE/ANTIOXIDANTS) TABS Active gabapentin (NEURONTIN) Take 1 180 capsule 3 300 MG capsule capsule by 8 mouth Three times daily Take 2 caps tid 600 mg per dose Active fluocinolone (SYNALAR) APPLY TO 2 01/18/ 01 0.025 % ointment PSORIATIC 8 PLAQUES ON ELBOWS ONCE DAILY Active clobetasol (TEMOVATE) Apply 30 g 5 / 0.05 % ointment topically Two 9 Times Daily Active Catheters (BARD COUDE TIP Use as 540 each 3 CATHETER) MISC directed. Use 9 as directed 6 times daily Active dronabinol (MARINOL) 10 TAKE ONE 0 MG capsule CAPSULE BY 9 MOUTH TWO TIMES A DAY MAXIMUM DAILY DOSE 2 Active chlorhexidine (PERIDEX) 0 0.12 % solution 9 Active Syringe/Needle (Disp) 26G Use as 25 each 6 X 5/8" 1 MLIndications: directed. 0 Impotence Urology kit 1 Additional Information Patient not taking. Reported on 08/17/2020 Active Xtandi 40 MG Oral Capsule TAKE 4 120 capsule 5 (Enzalutamide)Indications CAPSULES BY 1 : Primary prostate MOUTH EVERY DAY 12/11/2020 Active oxyCODONE HCl 15 MG Oral Take 1 tablet 180 tablet 0 Tablet by mouth 1 (ROXICODONE)Indications: every 4 Chronic Pain (four) hours as needed for PainCancer related pain, Max Daily Dose: 90 mg Indications: Chronic Pain 12/16/2020 Active Morphine Sulfate ER 15 MG Take 1 tablet 60 tablet 0 Oral Tablet Extended by mouth Two 1 Release (MS Times Daily , CONTIN)Indications: Max Daily Prostate cancer Dose: 30 mg metastatic to bone, Cancer associated pain Active Prochlorperazine Maleate Take 1 tablet 30 tablet 1 10 MG Oral Tablet by mouth 1 (COMPAZINE)Indications: every 6 (six) Prostate cancer hours as metastatic to bone needed (Nausea/Vomit ing) Active Ondansetron HCl 8 MG Oral Take 1 tablet 20 tablet 1 Tablet by mouth 1 (ZOFRAN)Indications: every 8 Prostate cancer (eight) hours metastatic to bone as needed for Nausea or Vomiting 12/14/2020 Active predniSONE 10 MG Oral Take 1 tablet 21 tablet 0 Tablet by mouth 1 (DELTASONE)Indications: daily Prostate cancer metastatic to bone documented as of this encounter (statuses as of 11/24/2020) Active Problems Problem Noted Date Ulnar neuropathy at elbow of right upper extremity 0 10/01/2017 Overview: Formatting of this note might be differ ent from the original. Added automatically from request for mary bowling [id number] Cervical spondylosis 09/14/2017 Numbness of right hand [...] interventional pain help, first in [facility] area L ast Assessment & Plan: [...] as of this encounter (statuses as of 11/24/2020) Resolved Problems Problem Noted Date Resolved Date Prostate cancer 02/23/2016 10/24/2016 documented as of this encounter (statuses as of 11/24/2020) Social History Date Tobacco Use Types Packs/Day Years Used Quit: 05/03/1974 Former Smoker Smokeless Tobacco: Never Used Comments Alcohol Use Standard Drinks/Week No 0 (1 standard drink = 0.6 o z pure alcohol) Sex Assigned at Date Recorded Male 09/04/2017 10:36 AM EDT Date Recorded COVID-19 Exposure Response 11/23/2020 8:54 AM EDT In the last month, have [...] Oxygen Saturation - - Inhaled Oxygen Concentration 86.2 kg (190 lb) 11/24/2020 12:43 PM EDT Weight 172.7 cm (5' 7.99") 11/24/2020 12:43 PM EDT Height 28.9 11/24/2020 12:43 PM EDT Body Mass Index documented in this encounter Patient Instructions * Patient Instructions* Mike Giang MD - 11/24/2020 12:45 PM EDT Images from the original note were not included. Ok not to take Er Morphine. Follow up in infusion in 3 weeks, 12/14/2020. Patient Education What Is Palliative Care? Both the person receiving treatment and family members help direct the plan of c are with the palliative care team. Palliative care is a way to improve quality of life for someone who is being esthela ated for a serious illness. Topalliatemeans to ease the symptoms of an i llness.Palliative care providers are experts in easing symptoms that cause d istress. These may include pain, nausea,vomiting, anxiety, constipation, sleeping, and breathing problems. The people who are being treated and their dick ed ones are given emotional and spiritual support. Palliative care is given at t he same time astraditionalmedical care. Active treatment for the illness does not stop. Goals of palliative care Easing symptoms that cause distress. The main goal of palliative care is to ease symptoms. Symptoms may affect a persons ability to eat, be active, or spend time with others. Medicines and other methods are used. This gives the p erson a better quality of life while the illness is being treated. Coordinating care. This helps to make sure that each care provider is aware of the goals of care. Communication is done on a regular basis among all team m embers to make sure that the care goals are met. Meeting emotional and spiritual needs. The care team helps both the person being treated and family members cope with stress, depression, anxiety, and othe r issues. They can set up meetings with a counselor or senior advisor as dick red. Giving information and helping with decisions. Care providers can help peop le and their families get the information they need. They can also help when car e decisions need to be made. Helping create an advance care plan. This is a series of legal documents th at note a persons wishes for their future healthcare. It helps to make asha e that if people cant speak for themselves, their wishes can still be stanley ied out. The documents vary by state. Working with your palliative care team Palliative care is given by a team of people who focus on the physical, emotiona l, and psychosocial aspects of advanced illness. The team may include a palliati ve care provider or nurse, social media sr strategy manager, pharmacist, dietitian, counselor, spir itual advisor, and others. To get the most of palliative care, both the person a nd his or her loved ones have a role. What a person who is receiving medical treatment can do Tell your healthcare provider you are thinking about palliative care. Ask what p alliative services are available in your area. To ensure the best care, learn what you can about your illness and the goals of your care. If you are having pain and other symptoms due to a serious illness, a sk your healthcare provider for a palliative care referral. Treating these symptoms is best for your health and quality of life. If you need support in other ways, speak up. The care team is there to help you get what you need. What a family member can do Talk with the palliative care team often. Do your best to understand your loved ones illness and goals of care. When decisions need to be made, act on you r loved ones wishes. And if you have a concern or question, speak up. You can help the team make sure that your loved one has the best quality of life pos jessi. Date Last Reviewed: 06/28/201619993962-5853 [employer]. [address] [place] [address] [phone]. All rights reserved. This information is not intended as a substitute for p formerly [facility]. Always follow your healthcare professional's instructi ons. documented in this encounter Progress Notes * Mike Giang MD - 11/24/2020 12:45 PM EDTSummary: pall f/u phone Palliative Care Follow Up Note Appointment Location: Telephone Location/Type of Cancer: Prostate Medical Oncologist: Óscar Peralta MD Interval History: Louis Mccann is a 60 y.o. male seen today for follow up palliative care. Noted progression on recent scans, possible pathologic fracture T-spine, plans t o switch to cabazitaxel. Also MS contin 15 mg po bid was added. Had chemo yesterday, pain once was 14, 8-910. Had hematuria, feels good today, urine is clearing up, 2/10 pain. Pain involves back, took half the morphine, got a headache, had to cut them, no longer taking, ER Morphine. Arms almost breaking, lost 30 lbs, appetite OK, limited with no teeth. Remains worried, but hopeful as he is feeling better after treatment received ye sterday. Oncologic History: Date of Cancer Diagnosis: 11/2015 Cancer Stage Prostate cancer metastatic to bone, Clinical stage from 02/14/2016: Stage IV (TX , NX, M1b, PSA: 20 or greater, [place] X) Past Treatment: - Casodex started in November 2015 - Docetaxel 75 mg/m2 x 6 cycles 02/15/2016- 05/30/2016 - Makakilo 223 given 09/14/2016 until 02/01/2017 - Xgeva 120 mg SQ monthly Current Treatment: - Lupron 22.5 mg IM every 3 months - Enzalutamide- started 07/02/2018 The information in this section was copied forward from a previous note for hist orical reference. Symptom Assessment 09/30/2019 11/05/2019 02/25/2020 06/02/2020 08/17/2020 11/24/2020 Pain 6 - - 7 7 10 Pain Location Head - Generalized Pain Generalized Pain Arm(s);Cervical Arm(s);Ba ck Fatigue Yes Yes Yes Yes Yes Yes Drowsiness - - - No No - Nausea No No No No No No Vomitting - No No No No No Lack Of Appetite No No No No No No Constipation No - - No No No Diarrhea - - - - No No Dyspnea - - No No No No Depression - - Yes Yes Other (comment) Other (comment) Anxiety Yes Long Standing Long Standing Long Standing Long Standing Long Standin g OBJECTIVE: Vitals: Visit Vitals Ht 1.727 m Wt 86.2 kg (190 lb) BMI 28.90 kg/m Physical Exam: Coherent,, alert, oriented. Data Reviewed: Pertinent data reviewed T-spine 11/22 MRI 1. Heterogenous appearance of bones of the thoracic spine with multiple areas o f enhancement throughout the lower cervical as well as thoracic spine as describ ed above with soft tissue component noted posteriorly at T10 level extending int o the spinal canal and right neural foramina and causing severe spinal canal evaristo nosis as well as impingement of right exiting nerve. 2. Multilevel degenerative changes in the thoracic spine. DIAGNOSIS: 1. Cancer related pain 2. Palliative care by specialist 3. Prostate cancer metastatic to bone ASSESSMENT AND PLAN: Unfortunately local and bone progression was noted in late scans and Jose is sanchez s started new chemo. So far he is feeling good, no more hematuria and pain is ra lissa at 2/10 today, started low dose 10 mg Pdn as well. 1. Encounter for palliative care/ cancer related pain/ multifactorial pain- we d iscussed pain in general and the fact that he can stop taking ER Morphine as the pill is not to be crushed or cut. Jose already stopped ibuprofen as well that might have been involved in hematuria, to continue with Oxycodone 15 mg po q 4h prn. Noted weight loss as well, eating difficult, food has to be soft. No other symptoms otherwise, noted possible compression fracture at T10, if pain worseni ng or motor symptoms advised to seek immediate medical attention. Jose is under standably worried about finding, but feels better today and hopes that the treat ment is responsible for the favorable changes. 2. Metastatic prostate cancer- progression noted and now started on jevtana and Pdn. Multiple other condition, related or not to the cancer contributing to pain , specifically arthritis, severe in multiple joints. Advanced Care Planning: HCP will have to be reviewed, , has his son for now as alternate HCP Status: Not Created MOLST Status: Not Created Discussion of Hospice: Hospice 11/24/2020 Discussion of Hospice? No Other services involved in care today: Follow Up Appointment: Return in about 20 days (around 12/14/2020) for symptom co ntrol, goals of care. Issues to discuss during next visit: as above Refer to: This is a telephonic visit which was performed without the use of video technolo gy due to patient inability to connect with video. The patient was informed of t he risks including security breach, technological failure, inability to perform a physical exam which could delay or prevent an accurate diagnosis, and potentia l complications from treatment decisions rendered over a telephonic platform. Th e patient understands and consented to the use of a telephonic visit/telephone c all. Time spent on visit excluding Advance Care Plannin Time spent Advance Care Plannin Mike Giang MD documented in this encounter Plan of Treatment Care Team Description Date Type Specialty Georgi Greene MD [address] [place] [address] 12/01/2020 Initial consult Urology Willow Genao, FIELD EVIDENCE TECHNICIAN [address] [facility] [place] [address] 12/14/2020 Office Visit Hematology and Onco logy Health Maintenance Due Date Last Done Comments Hepatitis C Screening (B. 1960 5721-2689) MMR Vaccines (1 of - 1961 Standard series) Varicella Vaccines (1 [...] Area Manufactur er 04/29/2020 21-8470-24 / / [id number] Port- Power Pac-10fr Dl Lpronew Chest KRAMER S Intro - [id number] MEDICAL Implanted: Qty: 1 on 02/11/2016 by Francoise Olivares MD at [facility] documented as of this encounter Results Not on filedocumented in this encounter Visit Diagnoses Diagnosis Cancer related pain - Primary Neoplasm related pain (acute) (chronic) Palliative care by specialist Prostate cancer metastatic to bone documented in this encounter
--- OUTSIDE RECORDS SUMMARY | 2021-02-16 11:26 | CCD ---
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 Act dunia confirmed 38877950 Problem Situational depression F43.21 Active confirmed 66994933 Problem Neuropathy G62.9 Active confirmed 469119233 Problem Essential hypertension I10 Active confirmed 44822570 Problem 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 Active confirmed 002932908 Problem Psoriasis L40.9 Active confirmed 5646263 Problem 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 Active confirmed 915480192 Problem Chronic fatigue R53.82 Active confirmed 5270 2003 Problem Major osseous defect, other site M89.78 Active conf irmed 81739398 Problem Cancer related pain G89.3 Active confirmed 108995233 Problem Obstructive uropathy N13.9 Active confirmed 0367833 Problem Carpal tunnel syndrome of right wrist G56.01 Ac tive confirmed 300786396752222 Problem Carpal tunnel syndrome of left wrist G56.02 Act dunia confirmed 465077817562590 Problem 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 Active confirmed 970157535 ALLERGIES No Known Allergies ENCOUNTERS from 1960 to 2020-11-18 Encounter Location Date Provider [facility] [address] [place] [address] Oct, Gremaine Elizalde IMMUNIZATIONS No Information SOCIAL HISTORY Tobacco Use: [...] 30 days Active May Have - 14 Turkmen straight catheter z85.46 intraurethral 10x/Day for 30 [...] tablet Orally every 4 hrs as needed MDD 3 Active PROCEDURES No Information RESULTS No Results REASON FOR VISIT Other MEDICAL (GENERAL) HISTORY Type Description Date Medical [...] Insured Coverage Start Date Coverage End Date [facility] [employer] [facility] [address] [facility] [address] LAURY LEDEZMA self
--- OUTSIDE RECORDS SUMMARY | 2021-02-16 11:26 | CCD | Summary of Care ---
Author Author [facility] Address Unknown Phone Unavailable Care Team Providers Care Cpht Name Role Phone Fabian Infante MD PCP Encounter Details Care Team Description Date Type Department Lower abdominal pain 12/14/2020 Hospital Diagnostic Radiolog y Encounter [address] [facility] [address] [place] [address] Allergies No Known Active Allergiesdocumented as of this encounter (statuses as of 12/15/2020) Medications End Date Status Medication Sig Dispensed [...] needed for Nausea or Vomiting. Additional Information Patient not taking. Reported on 12/14/2020 Active SYRINGE/NEEDLE, DISP, 1 Use as 25 each 6 ML 26G X 5/8" 1 ML MISC directed. 8 Urology Kit 1 Additional Information Patient not taking. Reported on 08/17/2020 Active Multiple Take by mouth 0 Vitamins-Minerals (CERTAVITE/ANTIOXIDANTS) TABS Active fluocinolone (SYNALAR) APPLY TO 2 01/18/ [...] Additional Information Patient not taking. Reported on 12/01/2020 12/16/2020 Active Morphine Sulfate ER 15 MG [...] Daily Dose: 90 mg Indications: Chronic Pain 12/17/2020 Active Lactulose 10 GM/15ML Oral Take 30 mLs 240 mL 0 Solution by mouth 1 (CHRONULAC)Indications: Three times Drug-induced constipation daily for 3 days Active PEG 3350 17 GM/SCOOP Oral Take 17 g by 510 g 5 Powder mouth daily 1 (MIRALAX)Indications: Drug-induced constipation 12/13/2021 Active Senna-Docusate Sodium Take 1 tablet 30 tablet 11 8.6-50 MG Oral Tablet by mouth 1 (SENOKOT-S)Indications: daily Drug-induced constipation documented as of this encounter (statuses as of 12/15/2020) Active Problems Problem Noted Date Gross hematuria 12/01/2020 Ulnar neuropathy at elbow of right upper extremity 0 10/01/2017 Overview: Formatting of this note might be differ ent from the original. Added automatically from request for mary bowling [id number] Cervical spondylosis 09/14/2017 Numbness of right hand [...] looking for interventional pain help, first in [facility] area L ast Assessment & Plan: Formatting [...] as of this encounter (statuses as of 12/15/2020) Resolved Problems Problem Noted Date Resolved Date Prostate cancer 02/23/2016 10/24/2016 documented as of this encounter (statuses as of 12/15/2020) Social History Date Tobacco Use Types Packs/Day Years Used Quit: 05/03/1974 Former Smoker Smokeless Tobacco: Never Used Comments Alcohol Use Standard Drinks/Week No 0 (1 standard drink = 0.6 o z pure alcohol) Sex Assigned at Date Recorded Male 09/04/2017 10:36 AM EDT Date Recorded COVID-19 Exposure Response 12/14/2020 12:15 PM EDT In the last month, have you been in contact with No / Unsure someone who was confirmed or suspected to have Coronavirus / COVID-19? documented as of this encounter Last Filed Vital Signs Not on filedocumented in this encounter Plan of Treatment Care Team Description Date Type Specialty 12/20/2020 Clinical Hematology and Onco logy Support Georgi Greene MD [address] [place] [phone] 12/22/2020 Procedure visit Urology Óscar Peralta MD [address] [place] [address] 01/11/2021 Office Visit Hematology and Onco logy Health Maintenance Due Date Last Done Comments Hepatitis C Screening (B. 1960 [id number]) MMR Vaccines (1 of 1 - 1961 [...] Area Manufactur er 04/29/2020 21-8470-24 / / [id number] Port- Power Pac-10fr Dl Lpronew Chest KRAMER S Intro - [id number] MEDICAL Implanted: Qty: 1 on 02/11/2016 by Francoise Olivares MD at [facility] documented as of this encounter Procedures Comments Procedure Name Priority Date/Time Associated Diag nosis XR ABDOMEN AP SUPINE AND STAT 12/14/2020 Lower abdominal pain AP ERECT 16560 12:49 PM EDT documented in this encounter Results * XR Abdomen AP Supine and AP Erect (12/14/2020 12:49 PM EDT) Specimen Impressions Performed At IMPRESSION: [facility] Nonobstructive bowel gas pattern. Moder ate amount stool noted in the colon. Multiple sclerotic lesions detected thr oughout the pelvis and spine. This is consistent with patient's history of pr ostate cancer. Narrative Performed At [facility] INDICATION: abdominal pain with inabili ty to tolerate PO intake TECHNIQUE: AP and supine views of the a bdomen were obtained COMPARISON: No prior studies for compar олег FINDINGS: LINES AND TUBES: None ABDOMEN: Nonobstructive bowel gas patte rn. Moderate amount stool noted throughout the colon. Phleboliths noted in the pelvis. No radha dence of pneumoperitoneum detected. VISIBLE CHEST: Visualized lung bases ar e clear. BONES: Multiple sclerotic lesions noted throughout the axial and appendicular skeleton consistent with patient's hist ory of prostate cancer. Procedure Note Interface, Received Via [employer] [facility] - 12/14/2020 12:57 PM EDT INDICATION: abdominal pain with inability to tolerate PO intake TECHNIQUE: AP and supine views of the abdomen were obtained COMPARISON: No prior studies for comparison FINDINGS: LINES AND TUBES: None ABDOMEN: Nonobstructive bowel gas pattern. Moderate amount stool noted throughout the colon. Phleboliths noted in the pelvis. No evidence of pneumoperitoneum detected. VISIBLE CHEST: Visualized lung bases are clear. BONES: Multiple sclerotic lesions noted throughout the axial and appendicular skeleton consistent with patient's history of prostate cancer. IMPRESSION: Nonobstructive bowel gas pattern. Moderate amount stool noted in the colon. Multiple sclerotic lesions detected throughout the pelvis and spine. This is consistent with patient's history of prostate cancer. Performing Organization Address City/State/ZIP Code P ezra Number [facility] [address] [place] [address] documented in this encounter Visit Diagnoses Diagnosis Lower abdominal pain Abdominal pain, other specified site documented in this encounter
--- OUTSIDE RECORDS SUMMARY | 2021-02-16 11:26 | CCD | Summary of Care ---
Author Author [facility] Address Unknown Phone Unavailable Care Team Providers Care Ice Cream Freezer Assistant Name Role Phone Fabian Infante MD PCP Reason for Visit * Reason Comments Follow-up Encounter Details Care Team Description Date Type Department Óscar Peralta MD [address], [place] [id number] Hypercalcemia (Primary Dx); Malignant tumor of prostate; Secondary malignant neoplasm of bone; Prostate cancer metastatic to bone; Primary prostate cancer with metastasis from prostate to other site; Urinary obstruction; Acute cystitis with hematuria 01/11/2021 Office Visit Hematology Oncology [address] [place] [id number] Allergies No Known Active Allergiesdocumented as of this encounter (statuses as of 01/25/2021) Medications End Date Status Medication Sig Dispensed [...] acetate) muscle every 3 (three) months Active PEG 3350 17 GM/SCOOP Oral Take 17 g by 510 g 5 Powder mouth daily 1 (MIRALAX)Indications: Drug-induced constipation 12/13/2021 Active Senna-Docusate Sodium Take 1 tablet 30 tablet 11 8.6-50 MG Oral Tablet by mouth 1 (SENOKOT-S)Indications: daily Drug-induced constipation Active SM Senna Laxative 8.6 MG Take 1 tablet 0 12/14 Oral Tablet by mouth 1 daily 01/17/2021 Discontinued (Stop Taking at Discharge) calcium carbonate Take 600 mg 0 (OS-EDWIN) 600 MG TABS by mouth daily 01/20/2021 Discontinued (Reorder) oxyCODONE HCl 15 MG Oral Take 1 tablet 180 tablet 0 Tablet by mouth 1 (ROXICODONE)Indications: every 4 Chronic Pain (four) hours as needed for PainCancer related pain, Max Daily Dose: 90 mg Indications: Chronic Pain documented as of this encounter (statuses as of 01/25/2021) Active Problems Problem Noted Date UTI (urinary [...] original. Added automatically from request for mary dash [id number] Cervical spondylosis 09/14/2017 Numbness of right hand [...] looking for interventional pain help, first in [facility] area L ast Assessment & Plan: [...] as of this encounter (statuses as of 01/25/2021) Resolved Problems Problem Noted Date Resolved Date Prostate cancer 02/23/2016 10/24/2016 documented as of this encounter (statuses as of 01/25/2021) Social History Date Tobacco Use Types Packs/Day [...] 01/11/2021 relatives? How often do you attend catholic or sabianism Never 01/11/2021 services? Do you belong to any clubs or organizations such No 01/11/2021 as catholic groups, unions, fraternal or athletic groups, or [...] Signs Reading Time Taken Comments Vital Sign 120/82 01/11/2021 4:00 PM EDT Blood Pressure 101 01/11/2021 4:00 PM EDT Pulse 36.9 C (98.4 F) 01/11/2021 4:00 PM EDT Temperature 16 01/11/2021 4:00 PM EDT Respiratory Rate 96% 01/11/2021 4:00 PM EDT Oxygen Saturation - - Inhaled Oxygen Concentration 72.1 kg (159 lb) 01/11/2021 9:56 AM EDT Weight - - Height 24.18 12/22/2020 11:51 AM EDT Body Mass Index documented in this encounter Progress Notes * Óscar Peralta MD - 01/11/2021 11:15 AM EDT I saw and evaluated the patient. Discussed with the non-physician practitioner and agree with the non-physician practitioner findings and plan as documented in their note. Orders Placed This Encounter Urinary catheter indwelling Blood culture Standing Status: Future Number of Occurrences: 1 Standing Expiration Date: 07/11/2021 Order Specific Question: Specimen Type Answer: Peripheral Urine Culture Blood culture Standing Status: Standing Number of Occurrences: 1 XR Chest Frontal/Lateral/Both Obliques Standing Status: Future Standing Expiration Date: 01/11/2023 Order Specific Question: Reason for exam: Answer: sepsis protocol Order Specific Question: Interpretation? Answer: Routine Lactic Acid Level, Plasma Standing Status: Future Number of Occurrences: 1 Standing Expiration Date: 07/11/2021 Urinalysis with microscopic Procalcitonin Standing Status: Future Number of Occurrences: 1 Standing Expiration Date: 07/11/2021 Ammonia Standing Status: Future Number of Occurrences: 1 Standing Expiration Date: 07/11/2021 Magnesium Level Standing Status: Standing Number of Occurrences: 1 Phosphorus Level Standing Status: Standing Number of Occurrences: 1 Calcium, ionized Standing Status: Standing Number of Occurrences: 1 EKG 12 Lead Tachycardia, sepsis protocol EKG 12-LEAD - CMAXX REPORT EKG 12-LEAD - CMAXX REPORT DISCONTD: alteplase (CATHFLO) injection 2 mg alteplase (CATHFLO) injection 2 mg sodium chloride 0.9 % bolus 1,000 mL piperacillin-tazobactam (ZOSYN) IVPB 3.375 g (premix) Order Specific Question: Indication: Answer: Polymicrobial infection (requiring gram-negative, gram-positive +/- anaerobic coverage calcitonin (MIACALCIN) injection 288 Units NaCl infusion 0.9 % * Willow Genao NP - 01/11/2021 11:15 AM EDT Images from the original note were not included. Hematology/Oncology Follow Up Note Diagnosis: 1. Malignant tumor of prostate 2. Secondary malignant neoplasm of bone 3. Prostate cancer metastatic to bone 4. Primary prostate cancer with metastasis from prostate to other site Date of Cancer Diagnosis: 11/2015 Cancer Stage Prostate cancer metastatic to bone, Clinical stage from 02/14/2016: Stage IV (TX , NX, M1b, PSA: 20 or greater, [place] X) Past Treatment: - Casodex started in November 2015 - Docetaxel 75 mg/m2 x 6 cycles 02/15/2016- 05/30/2016 - Deepwater 223 given 09/14/2016 until 02/01/2017 - Enzalutamide 07/02/2018- October 2020 Current Treatment: - Lupron 22.5 mg IM every 3 months - Jevtana since 11/23/2020 ECOG Performance Status: 0- Fully active, able to carry on all pre-disease perfo rmance without restriction Oncologic History: Oncologic History Louis Mccann is a 60 y.o. male with a past medical history of HTN and HLD who began receiving testosterone injections through his PCP in early 2015 due to symptomatic low testosterone. Following the first few doses, he developed obstr uctive urinary symptoms with increased frequency, hesitancy, nocturia, and a wea k stream. He was placed on doxazosin which did provide relief of his symptoms. In November 2015, he presented to the ER in [place] with neurologic symptoms. Wo rk up was negative for a CVA. He followed up with Neurology as an outpatient whe re he was sent for a repeat MRI brain which showed a metastatic lesion involving the left side of the clivus and adjacent occipital codyle associated with invol vement of the left hypoglossal nerve canal and denervation involving the left si de of the tongue, but no brain parenchymal lesions. He was sent for further scan s, which revealed blastic lesions in the right hip, thoracic spine, and lumbar s pine. He was noted to have moderate hypertrophy for the prostate and moderate ex trinsic compression upon the anterior bladder. His PSA level was 249 therefore h e was sent for a biopsy of the prostate which confirmed malignancy. He was start ed on Casodex and Lupron. He additionally received 6 cycles of Taxotere from until 05/30/2016. His Casodex was ultimately stopped in early 2016. Since his PSA level never dropped below normal as well as ongoing pain from his bone metastatic disease, he was offered radium 223 treatment based on the "Alpha Emitter Deepwater-223 and Survival in Metastatic Prostate Cancer" (N Engl J Med 20 13; 369:213-223), a phase 3, randomized, double-blind, placebo-controlled study, where 921 patients were randomized in a 2:1 ratio, to receive six injections of radium-223 (at a dose of 50 kBq per kilogram of body weight intravenously) or m atching placebo; one injection was administered every 4 weeks. At the interim an alysis, which involved 809 patients, radium-223, as compared with placebo, signi ficantly improved overall survival (median, 14.0 months vs. 11.2 months; hazard ratio, 0.70; 95% confidence interval [CI], 0.55 to 0.88; two-sided P=0.002). The updated analysis involving 921 patients confirmed the radium-223 survival benef it (median, 14.9 months vs. 11.3 months; hazard ratio, 0.70; 95% CI, 0.58 to 0.8 3; P<0.001). Assessments of all main secondary efficacy end points also showed a benefit of radium-233 as compared with placebo. Deepwater-223 was associated with low myelosuppression rates and fewer adverse events. The patient agreed and was referred to nuclear medicine for treatment. He received radium 223 from 09/14/2016 until 02/01/2017 which he tolerated well. Restaging scans after radium 223were stable however there was a questionable new metastatic lesion on the c spine. The patient has remained on ADT therapy via L upron being given every 3 months. In addition, he has received Xgeva but this sanchez s been on hold since September 2017 due to ongoing dental work. He had staging scans on 06/18/18 which showed progression in the bone with new le jose in T6 vertebral body. He was started on Enzalutamide on 07/02/18 with a downt rend in his PSA since that time. Patient developed progressive back pain and notable rise in his PSA from July 30- October 2020. 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 Interim History: Patient presents to clinic today for follow up, accompanied by his son. Since his last treatment, he has not been doing well. Has been spending all day in bed but is able to get up to go to the bathroom. Son reports that hi s mental capacity has diminished. He is not making sense when he talks. He has h ad at least two falls at home that the son is aware of. The falls were unwitness ed but patient does not think he was injured and denies hitting his head. Report s a poor appetite. Throws up almost every time he tries to eat. Has lost 16 poun ds since his last treatment. He has not been able to take his own medications si nce this past Sunday due to confusion. He cannot hold his phone or unlock it. H e does not know what medications are which. He is reporting severe abdominal roberto n and constipation. No fever that he is aware of but feels cold. Subjective: Past Medical History: Diagnosis Date Bone cancer Bone metastases Cervical spondylosis 09/14/2017 Elevated PSA Hx antineoplastic chemotherapy Hx of radiation therapy 03/21/2016 3000 cGy/ 10 fractions to right shoulder Hyperlipidemia Hypertension Left flank pain started 04/04/16 Low back pain Prostate cancer Reactive depression (situational) 12/22/2020 Ulnar neuropathy at elbow of right upper extremity 10/01/2017 Family and Social History Louis Mccann family history includes Cancer in his maternal grandmother an d mother. He reports that he quit smoking about 46 years ago. He has never used smokeless tobacco. He reports that he does not drink alcohol and does not use d rugs. Medications and Allergies No Known Allergies Current Outpatient Medications on File Prior to Visit Medication Sig Dispense Refill carisoprodol (SOMA) 350 [...] into the muscle every 3 (three) months ondansetron (ZOFRAN) 8 MG tablet Take 1 tablet by mouth every 8 (eight) h ours as needed for Nausea or Vomiting. 20 tablet 5 Ondansetron HCl 8 MG Oral Tablet (ZOFRAN) Take 1 tablet by mouth every 8 (eight) hours as needed for Nausea or Vomiting 20 tablet 1 PEG 3350 17 GM/SCOOP Oral Powder (MIRALAX) [...] ( Patient not taking: Reported on 12/28/2020) oxyCODONE HCl 15 MG Oral Tablet (ROXICODONE) Take 1 tablet by mouth every 4 (four) hours as needed for PainCancer related pain, Max Daily Dose: 90 mg In dications: Chronic Pain 180 tablet 0 Xtandi 40 MG Oral Capsule (Enzalutamide) TAKE 4 CAPSULES BY MOUTH EVERY D AY (Patient not taking: Reported on 12/28/2020) 120 capsule 5 No current facility-administered medications on file prior to visit. Review of Systems Constitutional: Positive for activity change, appetite change, chills, fatigue a nd unexpected weight change. Negative for fever. HENT: Positive for dental problem. Eyes: Negative for visual disturbance. Respiratory: Negative for cough and shortness of breath. Cardiovascular: Negative for chest pain and leg swelling. Gastrointestinal: Positive for abdominal pain, constipation, nausea and vomiting . Negative for abdominal distention, blood in stool and diarrhea. Genitourinary: Positive for dysuria and hematuria. Musculoskeletal: Positive for arthralgias. Skin: Negative for rash. Neurological: Positive for weakness. Negative for dizziness and headaches. Hematological: Negative for adenopathy. Does not bruise/bleed easily. Psychiatric/Behavioral: Negative for sleep disturbance. The patient is not nervo us/anxious. Objective: Vitals: Vitals - 1 value per visit 12/22/2020 12/28/2020 01/11/2021 SYSTOLIC 110 - 129 DIASTOLIC 72 - 87 PULSE 108 - 111 TEMPERATURE 97.9 - 97.5 RESPIRATIONS 16 - 16 Weight (kg) 78.472 kg 78.926 kg 72.122 kg HEIGHT 172.7 cm - - SPO2 95 - 96 BODY MASS INDEX 26.31 kg/m2 26.46 kg/m2 24.18 kg/m2 PAIN SCALE - SCORE 3 2 10 PAIN SCALE - LOCATION BACK BACK ABDOMEN PAIN SCALE - COMMENT - - - Some recent data might be hidden Physical Exam Vitals reviewed. Constitutional: Appearance: He is ill-appearing. HENT: Head: Normocephalic and atraumatic. Eyes: General: No scleral icterus. Cardiovascular: Rate and Rhythm: Tachycardia present. Pulses: Normal pulses. Pulmonary: Effort: Pulmonary effort is normal. Breath sounds: Normal breath sounds. No wheezing. Abdominal: General: There is no distension. Palpations: Abdomen is soft. There is no mass. Musculoskeletal: Cervical back: Normal range of motion and neck supple. Right lower leg: No edema. Left lower leg: No edema. Skin: General: Skin is warm. Coloration: Skin is not pale. Neurological: Mental Status: He is oriented to person, place, and time. Imaging CT thorax 11/08/20 CT abdomen/pelvis 11/08/20 NM Bone scan 10/05/2020 IMPRESSION: 1. Increased radiopharmaceutical uptake involving a lower thoracic vertebral maria elena dy, likely T10, the right hip, and bilateral superior pubic rami. The activity w ithin the thoracic vertebral body may represent a compression fracture, possibly pathologic. Suggest correlating with updated anatomic imaging. 2. Decreased radiopharmaceutical uptake involving the mandible. MR thoracic spine 11/22/2020 IMPRESSION: 1. Heterogenous appearance of bones of the [...] Multilevel degenerative changes in the thoracic spine. MR lumbar spine 11/22/2020 IMPRESSION: 1. Heterogenous appearance of bones of the lumbar spine as well as sacrum with multiple areas of enhancement concerning for metastatic disease. 2. Anterior and central wedging of L1 vertebra with loss of height as well as m ild central wedging of L5. 3. Extensive multilevel degenerative changes of the lumbar spine as described a jackie with multilevel spinal canal as well as neural foraminal narrowing. 4. Trace retrolisthesis of L1 over L2 and L4 over L5. Anterolisthesis of L5 ove r S1 measuring approximately 9 mm. XR abdomen 12/14/2020 IMPRESSION: Nonobstructive bowel gas pattern. Moderate amount stool noted in the colon. Multiple sclerotic lesions detected throughout the pelvis and spine. This is con sistent with patient's history of prostate cancer. Lab Review Office Visit on 01/11/2021 Component Date Value Ref Range Status White Blood Cell 01/11/2021 19.4* 4.00 - 10.00 10*3/uL Final Red Blood Cell 01/11/2021 3.07* 4.60 - 6.10 10*6/uL Final Hemoglobin 01/11/2021 9.1* 13.5 - 18.0 g/dL Final Hematocrit 01/11/2021 26.8* 41.0 - 53.0 % Final Mean Cell Volume 01/11/2021 87.2 80.0 - 96.0 fL Final Mean Cell Hemoglobin 01/11/2021 29.5 27.0 - 33.0 pg Final Mean Cell Hgb Conc 01/11/2021 33.8 32 - 36 g/dL Final Red Cell Dist Width 01/11/2021 16.2* 11.5 - 14.5 % Final Platelet Count 01/11/2021 438* 150 - 400 10*3/uL Final Differential Type 01/11/2021 Automated Diff Final Neutrophil 01/11/2021 86 % Final Lymphocyte 01/11/2021 6 % Final Monocyte 01/11/2021 6 % Final Eosinophil 01/11/2021 0 % Final Basophil 01/11/2021 2 % Final Abs Neutrophil 01/11/2021 16.93* 1.80 - 7.00 10*3/uL Final Abs Lymphocyte 01/11/2021 1.07* 1.20 - 4.00 10*3/uL Final Abs Monocyte 01/11/2021 1.11* 0.00 - 0.80 10*3/uL Final Abs Eosinophil 01/11/2021 0.02 0.00 - 0.50 10*3/uL Final Abs Basophil 01/11/2021 0.30* 0.00 - 0.20 10*3/uL Final Nucleated Red Blood Cells 01/11/2021 0 0 - 0 /100 Final Tumor Markers Lab Results Component Value Date PSATOTAL 3.4 12/20/2020 PSATOTAL 4.3 (H) 12/14/2020 PSATOTAL 2.8 11/23/2020 Assessment: 60 year old gentleman with stage IV prostate cancer who has progressed through m ultiple lines of treatment in the past. He most recently was undergoing therapy with Enzalutamide and Lupron for which his disease is now progressing. He has sw itched to treatment with Jevtana as of 11/23/2020 and presents to clinic today fo r follow up. 1.) Stage IV prostate cancer: - Prior treatment as outlined above - Most recent imaging and repeat PSA consistent with progression of disease - Has started systemic treatment with Jevtana with life prolonging goal as of 2.) Encounter for antineoplastic therapy: - CBC and CMP reviewed - Holding treatment today due to multitude of symptoms and will be admitted to H team 9 for additional work up 3.) Use of Lupron: - Continue 22.5 mg once every 3 months, last given on 11/23/2020 4.) Bone metastasis: - Further denosumab contraindicated due to ONJ 5.) Leukocytosis: - WBC elevated to 19.4 today, in addition to tachycardia- HR 108-110 - Will initiate sepsis protocol - Suspect possible UTI sepsis - Blood cultures, urine culture, chest x-ray, EKG ordered - Will initiate broad spectrum IV antibiotics- give 1 dose of zosyn IV in clinic today 6.) Hypercalcemia: - 1 bolus NS ordered followed by MIVF @ 125 mls/hr - Calcitonin 4 units/kg subcutaneous x 1 ordered (288 units) Plan: Louis Mccann should return s/p hospital discharge in 1 -2 weeks Imaging prior to return to clinic?: no Labs on return to clinic? yes Medication changes? no Opioid induced constipation? no Meds reconciled? yes Referrals needed? There are no social work or other referral needs at this time Advised patient to call our office immediately with any concerns, worsening symp toms, or new symptoms. In addition, we have 24-hour on-call service.The mateo ent was agreeable with plan of care. Certain parts of this note may have been carried over from prior Hematology/Onco logy notes to maintain accuracy of patient's pertinent medical history and tank nuity of care. The details were verified and edited as appropriate. Patient was seen and discussed with Dr. Fabian Genao NP documented in this encounter Nursing Notes * Beena Quintanilla RN - 01/11/2021 11:15 AM EDT Patient arrives to infusion room 43 via wheelchair, accompanied by son, daughter , and Tate Gilbert RN. Port intact, infusing NS per orders. [place] intact draining silvestre k color urine. Awaiting admission. [id number] zosyn IV administered over 30 minutes, patient tolerated well. 1440- 1 liter NS bolus over 2 hours completed. NS @ 125 ml/hr started. Calcitoni n ordered, awaiting from pharmacy. Still awaiting med assignment for admission. Son and daughter in law at bedside. 1600 patient is agitated and saying he needs to go to bathroom, not able to unde rstand that he has a montana catheter in that is draining. Message to Brie Genao NP to see if patient can have something for agitation. 1605 received message that room was ready. 1610 report called to 10E nurse Caro Mulligan. Patient transported to 10 E vi a wheelchair, port with NS infusing and montana intact without incident. Son and d yaniquehter in law aware of transfer, son to go to vehicle and then to 10 E. * Yadira Gilbert RN - 01/11/2021 11:15 AM EDT Pt to BR x 3 to void or self cath to provide urine sample. Pt unable to provide sample. Order received for montana placement. 18Fr 5cc montana cath placed without d ifficulty with 700 ml dark yellow urine return. EKG obtained for elevated Ca+. B C x2, UA, C&S, lactic acid, procalcitonin drawn peripherally. Positive blood return from port after TPA. Positive confusion noted with altered baseline mentation. Decision made to admit for further work up. Report given to shredder tender. Pr transported via w/c to infusion. * Yadira Gilbert RN - 01/11/2021 11:15 AM EDT Difficult to obtain blood return from either port. TPA instilled to port. Awaiti ng results. New labs ordered. documented in this encounter Plan of Treatment Care Team Description Date Type Specialty Óscar Peralta MD [address] [place] [address] [phone] 02/01/2021 Office Visit Hematology and Onco Beka Garibay MD [address] [facility] [address] [place] [address] [phone] 02/15/2021 Office Visit Radiation Oncology Georgi Greene MD [address] [facility] [place] [address] [place] [address] 03/30/2021 Office Visit Urology Order Schedule Name Type Priority Associated Diag noses Expected: 01/11/2021, Expires: 3 XR Chest Imaging STAT Prostate cancer Frontal/Lateral/Both metastatic to bone Obliques Health Maintenance Due Date Last Done Comments [...] Vaccine 01/28/2021 Hepatitis C Screening (B. Completed 01/12/[id number]) HIB Vaccines Aged Out No longer eligible [...] Area Manufactur er 04/29/2020 [id number] / / [id number] Port- Power Pac-10fr Dl Lpronew Chest KRAMER S Intro - [id number] MEDICAL Implanted: Qty: 1 on 02/11/2016 by Francoise Olivares MD at [facility] 10/13/2023 [id number] / / [id number] Drn - Resolve - 10 Fr - [id number] Right: Kidney ME RIT Implanted: Qty: 1 on 01/13/2021 by Yohan Negrete DO at [facility] IN[facility]IENT documented as of this encounter Procedures Comments Procedure Name Priority Date/Time Associated Diag nosis BLOOD CULTURE Routine 01/11/2021 11:50 AM EDT CALCIUM, IONIZED Routine 01/11/2021 11:40 AM EDT EKG 12-LEAD - CMAXX 01/11/2021 REPORT 11:35 AM EDT EKG 12-LEAD - CMAXX 01/11/2021 REPORT 11:35 AM EDT EKG 12-LEAD STAT 01/11/2021 Prostate cancer 11:35 AM EDT metastatic to bone BLOOD CULTURE Routine 01/11/2021 Prostate cancer 11:28 AM EDT metastatic to bone LACTIC ACID LEVEL, PLASMA STAT 01/11/2021 Pros tidwell cancer 11:28 AM EDT metastatic to bone AMMONIA LEVEL STAT 01/11/2021 Secondary malig nant 11:28 AM EDT neoplasm of bone PROCALCITONIN Routine 01/11/2021 Prostate cancer 11:24 AM EDT metastatic to bone URINALYSIS WITH STAT 01/11/2021 Prostate cance r MICROSCOPIC 11:24 AM EDT metastatic to bone URINE CULTURE Routine 01/11/2021 Prostate cancer 11:24 AM EDT metastatic to bone PHOSPHORUS LEVEL Routine 01/11/2021 11:24 AM EDT MAGNESIUM LEVEL Routine 01/11/2021 11:24 AM EDT CBC AND DIFFERENTIAL Routine 01/11/2021 Malignant tumor of 10:45 AM EDT prostate 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 PSA, TOTAL AND FREE Routine 01/11/2021 Primary pr ostate cancer 10:45 AM EDT with metastasis from prostate to other site COMPREHENSIVE METABOLIC STAT 01/11/2021 Malign ant tumor of PANEL 10:45 AM EDT prostate 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 documented in this encounter Results * Blood culture ; (01/11/2021 11:50 AM EDT) Special Request R HAND [facility] Clin Pathology Culture/Results NO GROWTH [facility] Pathology Specimen Blood Performing Organization Address [facility] [place] P ezra Number [address] [address] Clin Pathology * Calcium, ionized (01/11/2021 11:40 AM EDT) Calcium 1.88 (HH) 1.13 - 1.32 mmol/L [facility] Upstajordy e Ionized,W.B. Comment: [facility] Called to and read back by Pathology Jordy SANCHEZ RN ON 10E AT 0007 BY 1521 Specimen Whole Blood Performing Organization Address [facility] P ezra Number [address] 132 10 Clin Pathology * EKG 12-LEAD - CMAXX REPORT (01/11/2021 11:35 AM EDT) Narrative Performed At This result has an attachment that is n ot available. * EKG 12-LEAD - CMAXX REPORT (01/11/2021 11:35 AM EDT) Narrative Performed At This result has an attachment that is n ot available. * EKG 12 Lead (01/11/2021 11:35 AM EDT) Specimen Narrative Performed At Ventricular Rate: [facility] EKG 93 BPM Atrial Rate: 93 BPM P-R Interval: 184 ms QRS Duration: 94 ms Q-T Interval: 326 ms QTC Calculation(Bazett): 405 ms P [place]: 10 degrees R [place]: -13 degrees T [place]: -3 degrees : SINUS RHYTHM : WITHIN NORMAL LIMITS : NO PREVIOUS ECGS AVAILABLE : Confirmed by Keyshawn Albarran (18) on 01/11/2021 2:43:23 PM Procedure Note Interface, Received Via [employer] - 01/11/2021 2:43 PM EDT Ventricular Rate: 93 BPM Atrial Rate: 93 BPM P-R Interval: 184 ms QRS Duration: 94 ms Q-T Interval: 326 ms QTC Calculation(Bazett): 405 ms P [place]: 10 degrees R [place]: -13 degrees T [place]: -3 degrees : SINUS RHYTHM : WITHIN NORMAL LIMITS : NO PREVIOUS ECGS AVAILABLE : Confirmed by Keyshawn Albarran (18) on 01/11/2021 2:43:23 PM Performing Organization Address City/[facility] P ezra Number [facility] EKG * Ammonia (01/11/2021 11:28 AM EDT) Ammonia 28 16 - 60 umol/L [facility] Pathology Specimen Plasma Performing Organization Address [facility] P ezra Number [facility] [address] [place] [address] [address] 132 10 Clin Pathology * Lactic Acid Level, Plasma (01/11/2021 11:28 AM EDT) Lactic Acid 1.4 0.5 - 2.2 mmol/l [facility] Pathology Specimen Plasma Performing Organization Address [facility] P ezra Number [facility] [address] [place] [address] [address] 132 10 Clin Pathology * Blood culture (01/11/2021 11:28 AM EDT) Special Request L HAND [facility] Pathology Culture/Results GRAM-NEGATIVE COCCUS [facility] Pathology Culture/Results Called to and read back by DALY Morataya RN on 10 at [facility] 1452 on 01/12/21 by [facility] Pathology Culture/Results DREAD (Hillary) [facility] Pathology Specimen Peripheral Performing Organization Address [facility] P ezra Number [facility] [address] [place], [place] [address] 132 10 Clin Pathology * Phosphorus Level (01/11/2021 11:24 AM EDT) Phosphorus 3.9 2.5 - 4.5 mg/dL [facility] Pathology Specimen Plasma Performing Organization Address [facility] P ezra Number [address] 132 10 Clin Pathology * Magnesium Level (01/11/2021 11:24 AM EDT) Magnesium 2.0 1.6 - 2.6 mg/dL [facility] Pathology Specimen Plasma Performing Organization Address [facility] P ezra Number [address] 132 10 Clin Pathology * Procalcitonin (01/11/2021 11:24 AM EDT) Procalcitonin 24.13 (H) <0.10 ng/mL [facility] Comment: [facility] (NOTE) Pathology < 0.25 ng/mL Bacterial infection unlikely,particularly lower respiratory tract infections. 0.25 -<0.50 ng/mL Low risk for progression to severe sepsis/septic shock. Localized infection is possible. Measurement done early (<6 hours) after systemic process starts may still be low. 0.50 - 2.00 ng/mL Moderate risk for progression to sepsis/septic shock. > 2.00 ng/mL High risk for progression to sepsis/septic shock. Specimen Serum Performing Organization Address [facility] P ezra Number [address] 132 10 Clin Pathology * Urine Culture (01/11/2021 11:24 AM EDT) Special Request None [facility] PATHOLOGY Culture/Results ESCHERICHIA COLI (A) [facility] Pathology Culture/Results STREPTOCOCCUS MITIS GROUP (A) [facility] Clin Pathology Culture/Results GENUS ENTEROCOCCUS (A) [facility] Pathology Culture/Results Full workup of above [facility] organism(s) has been requested [facility] by Pathology Dr. Elba Mcgee on 01/13/21 Specimen Urine Antibiotic Method Susceptibility Organism Cefazolin SELECT MATTA PEREIRA RESULTS REPORTED. Sensitive Escherichia coli Ampicillin SELECT JUAN JOSÉ RESULTS REPORTED. 8: Sensitive Escherichia coli Gentamicin SELECT JUAN JOSÉ RESULTS REPORTED. <=1: Sensitive Escherichia coli Nitrofurantoin SELECT JUAN JOSÉ RESULTS REPORTED. <=16: Sensitive Escherichia coli Trimethoprim + Sulfamethoxazole SELECT JUAN JOSÉ RESULTS REPORTED. <=1/19: Sensitive Escherichia coli Piperacillin + Tazobactam SELECT JUAN JOSÉ RESULTS REPORTED. <=4: Sensitive Escherichia coli Ceftazidime SELECT JUAN JOSÉ RESULTS REPORTED. <=1: Sensitive Escherichia coli Ciprofloxacin SELECT JUAN JOSÉ RESULTS REPORTED. <=0.25: Sensitive Escherichia coli Ceftriaxone SELECT JUAN JOSÉ RESULTS REPORTED. <=1: Sensitive Escherichia coli Tobramycin SELECT JUAN JOSÉ RESULTS REPORTED. <=1: Sensitive Escherichia coli Ampicillin + Sulbactam SELECT JUAN JOSÉ RESULTS REPORTED. 4/2: Sensitive Escherichia coli Levofloxacin SELECT JUAN JOSÉ RESULTS REPORTED. <=0.12: Sensitive Escherichia coli Clindamycin SELECT MATTA PEREIRA RESULTS REPORTED. Sensitive Streptococcus mitis group Erythromycin SELECT MATTA PEREIRA RESULTS REPORTED. Sensitive Streptococcus mitis group Vancomycin SELECT MATTA PEREIRA RESULTS REPORTED. Sensitive Streptococcus mitis group Penicillin ALTERNATE JUAN JOSÉ SUSCEPTIBILITIES 0.094: Sensitive Streptococcus mitis group Ceftriaxone ALTERNATE JUAN JOSÉ SUSCEPTIBILITIES 0.094: Sensitive Streptococcus mitis group Ampicillin SELECT JUAN JOSÉ RESULTS REPORTED. <=2: Sensitive Enterococcus species Nitrofurantoin SELECT JUAN JOSÉ RESULTS REPORTED. <=16: Sensitive Enterococcus species Vancomycin SELECT JUAN JOSÉ RESULTS REPORTED. 1: Sensitive Enterococcus species Tetracycline SELECT JUAN JOSÉ RESULTS REPORTED. <=1: Sensitive Enterococcus species Ciprofloxacin SELECT JUAN JOSÉ RESULTS REPORTED. 1: Sensitive Enterococcus species Performing Organization Address City/State/ZIP Code P ezra Number [facility] [address] [facility] [address] [place], [place] [address] Clin Pathology * Urinalysis with microscopic (01/11/2021 11:24 AM EDT) Color Yellow [facility] Pathology Clarity Cloudy [facility] Pathology Specific 1.009 1.003 - 1.030 [facility] Centerpoint [facility] Pathology PH Urine 6.0 5.0 - 8.0 [facility] Pathology Total Protein 30 (A) Negative mg/dL [facility] UA [facility] Pathology Glucose UA Negative Negative mg/dL [facility] Pathology Ketone Urine Negative Negative mg/dL [facility] Pathology Bilirubin Negative Negative [facility] Pathology Hemoglobin, 3+ (A) Negative [facility] Urine [facility] Pathology Leukocyte 3+ (A) Negative Elba/uL [facility] Esterase [facility] Pathology Nitrite Positive (A) Negative [facility] Pathology WBC 94 (H) 0 - 5 /HPF [facility] Pathology RBC 8 (H) 0 - 3 /HPF [facility] Pathology WBC Clumps Rare (A) None /HPF [facility] Pathology Bacteria, UA 1+ (A) None /HPF [facility] Pathology Mucus, UA Trace (A) None /LPF [facility] Pathology Amorphous, UA 1+ (A) None /HPF [facility] Pathology Specimen Urine Performing Organization Address City/State/ZIP Code P ezra Number [facility] [address] [place], [place] [address] [facility] [address] [place], [place] [address] Clin Pathology * PSA, total and free (01/11/2021 10:45 AM EDT) PSA Total 5.8 (H) <4.0 ng/mL [facility] Comment: [facility] Serum levels of PSA should not Pathology be interpreted as absolute evidence of the presence or absence of Cancer. Results obtained with different methods cannot be used interchangeably. This method is manufactured by [employer] and is an electrochemiluminesence immunoassay. PSA, Free 0.8 ng/mL [facility] Pathology Free PSA, % 13.9 % [facility] Pathology Probability of (NOTE) [facility] Cancer Comment: [facility] Probability of finding Pathology prostate cancer on needle biopsy by age: % Free PSA 50-59Y 60-69Y >70 --------- -------- ------ ----- <11% 49% 58% 65% 11-18% 27% 34% 41% 19-25% 18% 24% 30% >25% 9% 12% 16% The percent of free PSA can be used to enhance the differentiation of prostate cancer from benign prostatic disease in subjects whose PSA levels are between 4.0 and 10.0 ng/mL. For subjects with PSA <4.0 or >10.0 ng/mL, the risk of prostate cancer is determined on the basis of PSA alone. This test was performed using the [employer] Mod[employer] PSA and Free PSA method. PSA values obtained with other assay method kits cannot be used interchangeably. Specimen Plasma Performing Organization Address City/State/ZIP Code P ezra Number [facility] [address] [place], [place] [address] [facility] [address] [place], [place] [address] Clin Pathology * CBC and differential (01/11/2021 10:45 AM EDT) White Blood 19.4 (H) 4.00 - 10.00 10*3/[facility] Pathology Red Blood Cell 3.07 (L) 4.60 - 6.10 10*6/uL [facility] Pathology Hemoglobin 9.1 (L) 13.5 - 18.0 g/dL [facility] Pathology Hematocrit 26.8 (L) 41.0 - 53.0 % [facility] Pathology Mean Cell 87.2 80.0 - 96.0 fL [facility] Volume [facility] Clin Pathology Mean Cell 29.5 27.0 - 33.0 pg [facility] Hemoglobin [facility] Clin Pathology Mean Cell Hgb 33.8 32 - 36 g/dL [facility] Conc [facility] Clin Pathology Red Cell Dist 16.2 (H) 11.5 - 14.5 % [facility] Width [facility] Clin Pathology Platelet Count 438 (H) 150 - 400 10*3/uL [facility] Pathology Differential Automated Diff [facility] Type [facility] Clin Pathology Neutrophil 86 % [facility] Pathology Lymphocyte 6 % [facility] Pathology Monocyte 6 % [facility] Pathology Eosinophil 0 % [facility] Pathology Basophil 2 % [facility] Pathology Abs Neutrophil 16.93 (H) 1.80 - 7.00 10*3/uL [facility] Pathology Abs Lymphocyte 1.07 (L) 1.20 - 4.00 10*3/uL [facility] Clin Pathology Abs Monocyte 1.11 (H) 0.00 - 0.80 10*3/uL [facility] te [facility] Clin Pathology Abs Eosinophil 0.02 0.00 - 0.50 10*3/uL [facility] Pathology Abs Basophil 0.30 (H) 0.00 - 0.20 10*3/uL [facility] Clin Pathology Nucleated Red 0 0 - 0 /100{WBCs} [facility] Blood Cells [facility] Pathology Specimen EDTA Whole Blood Performing Organization Address City/State/ZIP Code P ezra Number [facility] [address] [place], [place] [address] [facility] [address] [place], [place] [address] Clin Pathology * Comprehensive metabolic panel (01/11/2021 10:45 AM EDT) Albumin 3.0 (L) 3.5 - 5.2 g/dL [facility] Pathology Bilirubin, 0.4 <1.2 mg/dL [facility] Clin Pathology Calcium 14.0 (HH)Comment: Results 8.6 - 10.0 mg/dL [facility] called to and read back by [facility] Clin JUSTIN RN [phone] BY 3200 Pathology Chloride 89 (L) 98 - 107 mmol/L [facility] Pathology Creatinine 1.25 (H) 0.70 - 1.20 mg/dL [facility] Pathology Glucose 118 70 - 140 mg/dL [facility] Pathology Alkaline 153 (H) 40 - 129 U/L [facility] Pathology Potassium 3.5Comment: Hemolyzed 3.4 - 5.1 mmol/L [facility] Clin Pathology Total Protein 7.2 6.4 - 8.3 g/dL [facility] Pathology Sodium 133 (L) 136 - 145 mmol/L [facility] Pathology AST/SGO 42 (H)Comment: Hemolyzed <40 U/L [facility] Pathology Blood Urea 21 8 - 23 mg/dL [facility] Nitrogen [facility] Pathology Osmolality, Edwin 280 275.0 - 300.0 [facility] mosm/kg [facility] Pathology BUN/Cre Ratio 17 [facility] Pathology Bicarbonate 19 (L) 22 - 29 mmol/L [facility] Pathology ALT/SGP 16 <41 U/L [facility] Pathology Anion Gap 25 (H) 8 - 15 mmol/L [facility] Pathology GFR Non 61 >60 mL/min/1.73m2 [facility] 2008 [facility] CDK-EPI Pathology GFR 71 >60 mL/min/1.73m2 [facility] 2008 [facility] CKD-EPI Pathology Specimen Plasma Performing Organization Address City/State/ZIP Code P ezra Number [facility] [address] [place], [place] [address] 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 Primary prostate cancer with metastasis from prostate to other site Malignant neoplasm of prostate Urinary obstruction Urinary obstruction, unspecified Acute cystitis with hematuria Acute cystitis documented in this encounter Administered Medications Action Date Dose Rate Site Medication Order MAR Action 01/11/2021 11:13 AM EDT 2 mg alteplase (CATHFLO) injection 2 mg Given 2 mg, Intracatheter, Once, On Sun01/11/21 at 1100, For 1 dose, To be instilled by PICC team or IR nurse only for at least 30 minutes 01/11/2021 3:12 PM EDT 288 Units Right Ar m calcitonin (MIACALCIN) injection 288 Given Units 288 Units, Subcutaneous, Once, On Sun01/11/21 at 1430, For 1 dose 01/11/2021 2:38 PM EDT 125 mL/hr NaCl infusion 0.9 % New Bag at 125 mL/hr, Intravenous, Once, On Sun01/11/21 at 1430, For 1 dose 01/11/2021 2:17 PM EDT 3.375 g 100 mL/hr piperacillin-tazobactam (ZOSYN) IVPB New Bag 3.375 g (premix) 3.375 g, Intravenous, Administer over 3 0 Minutes, Once, On Sun01/11/21 at 1415, For 1 dose, This specific formulation o f piperacillin-tazobactam is compatible with Lactated Ringers. 01/11/2021 12:39 PM EDT 1,000 mLs 500 mL/hr sodium chloride 0.9 % bolus 1,000 mL New Bag 1,000 mL, Intravenous, Once, On Sun01/11/21 at 1245, For 1 dose documented in this encounter
--- OUTSIDE RECORDS SUMMARY | 2021-02-16 11:26 | CCD ---
Author Author Merged With [facility] Organization Merged With [facility] Address Unknown Phone Unavailable Care Team Providers Care District Administrative Assistant Name Role Phone Hangalee Mann Unavailable PROBLEMS Type Condition ICD9-CM Code [id number] Code Onset Dates Condition S tatus W/U Status Risk SNOMED Code Notes Problem PSA elevation R97.2 Active confirmed 556251 005 Problem Malignant neoplasm of prostate C61 Active confir med 36365079 Problem Secondary malignant neoplasm of bone C79.51 Act dunia confirmed 81055296 Problem Situational depression F43.21 Active confirmed 21318881 Problem Neuropathy G62.9 Active confirmed 004185811 Problem Essential hypertension I10 Active confirmed 38673100 Problem 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 Active confirmed 550240347 Problem Psoriasis L40.9 Active confirmed 0504194 Problem 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 Active confirmed 345303129 Problem Chronic fatigue R53.82 Active confirmed 5270 2003 Problem Major osseous defect, other site M89.78 Active conf irmed 18272637 Problem Cancer related pain G89.3 Active confirmed 463890004 Problem Obstructive uropathy N13.9 Active confirmed 2994365 Problem Carpal tunnel syndrome of right wrist G56.01 Ac tive confirmed [id number] Problem Carpal tunnel syndrome of left wrist G56.02 Act dunia confirmed [id number] Problem 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 Active confirmed [id number] ALLERGIES No Known Allergies ENCOUNTERS from 1960 to 2020-11-18 Encounter Location Date Provider Diagnosis [facility] [address] [facility] [phone] [place] [address] Oct, Mann Hawkins Secondary malignant neoplasm of bone C79.51 and Malignant neoplasm of prostate C61 IMMUNIZATIONS No Information SOCIAL HISTORY Tobacco Use: [...] 30 days Active May Have - 14 Cuban straight catheter z85.46 intraurethral 10x/Day for 30 [...] hand Daily when sleeping for 9999 days 11 Db, 2019 Active May Have - please dispense 14 [...] Information RESULTS No Results REASON FOR VISIT STAT [facility] referral MEDICAL (GENERAL) HISTORY Type Description Date Medical [...] Notes Treatment Notes Treatm ent Clinical Notes Oct, Secondary malignant neoplasm of bone (ICD-10 - C 79.51) Oct, Malignant neoplasm of prostate (ICD-10 - C61) PLAN OF TREATMENT Medication Medication Name Sig Start Date Stop Date Ondansetron 4 MG 1 tablet on the tongue and a llow to dissolve Orally every 4 q for nausea for 30 days Insurance Providers Payer Name Payer Address Payer Phone Insured Name Patient Relati onship to Insured Coverage Start Date Coverage End Date [facility] [address] [facility] [phone] LAURY LEDEZMA self
--- OUTSIDE RECORDS SUMMARY | 2021-02-16 11:26 | CCD | Summary of Care ---
Author Author [facility] Address Unknown Phone Unavailable Care Team Providers Care Bill Sorter Name Role Phone Fabian Infante MD PCP Reason for Visit * Reason Comments Follow-up Encounter Details Care Team Description Date Type Department Óscar Peralta MD [address] [place] [address] Prostate cancer metastatic to bone (Prim shaylee Dx); Cancer associated pain; Encounter for antineoplastic chemotherapy; Bone metastases; Use of leuprolide acetate (Lupron) 11/23/2020 Office Visit Hematology Oncology [address] [place] [address] Allergies No Known Active Allergiesdocumented [...] bone as needed for Nausea or Vomiting 11/29/2020 Discontinued Catheters (BARD COUDE TIP Use as 540 each 3 CATHETER) MISC directed. Use 9 as directed 6 times daily 12/10/2020 Discontinued (Reorder) oxyCODONE HCl 15 MG Oral Take 1 tablet 180 tablet 0 07/15/202 Tablet by mouth 1 (ROXICODONE)Indications: every 4 Chronic Pain (four) hours as needed for PainCancer related pain, Max Daily Dose: 90 mg Indications: Chronic Pain 12/14/2020 predniSONE 10 MG Oral Take 1 tablet [...] Added automatically from request for mary bowling [id number] Cervical spondylosis 09/14/2017 Numbness of right hand [...] [facility] Assessment & Plan: Formatting [...] Signs Reading Time Taken Comments Vital Sign 135/87 11/23/2020 1:14 PM EDT Blood Pressure 83 11/23/2020 1:14 PM EDT Pulse 36.7 C (98.1 F) 11/23/2020 10:26 AM EDT Temperature 16 11/23/2020 1:14 PM EDT Respiratory Rate 97% 11/23/2020 1:14 PM EDT Oxygen Saturation - - Inhaled Oxygen Concentration 86.2 kg (190 lb) 11/23/2020 9:23 AM EDT Weight - - Height 28.9 08/17/2020 8:41 AM EDT Body Mass Index documented in this encounter Progress Notes * Óscar Peralta MD - 11/23/2020 8:45 AM EDT I saw and evaluated the patient. Discussed with the non-physician practitioner and agree with the non-physician practitioner findings and plan as documented in their note. Orders Placed This Encounter RADIOLOGY REPORT RADIOLOGY REPORT CBC and differential Comprehensive metabolic panel PSA LAB RESULTS (OUTSIDE/HISTORICAL) LAB RESULTS (OUTSIDE/HISTORICAL) Nursing Communication 20 Confirm that patient is taking Prednisone as prescribed in the Prescription me dications cycle. Standing Status: Standing Number of Occurrences: 1 Treatment Conditions 1 Notify provider if ANC is less than or equal to 1,200 or platelet count is les s than or equal to 75,000. Standing Status: Standing Number of Occurrences: 1 ondansetron (ZOFRAN) tablet 16 mg dexamethasone (DECADRON) tablet 20 mg diphenhydrAMINE (BENADRYL) capsule 25 mg famotidine (PEPCID) tablet 20 mg Cabazitaxel (JEVTANA) 51 mg in sodium chloride 0.9 % 250 mL chemo infusio n Prochlorperazine Maleate 10 MG Oral Tablet (COMPAZINE) Sig: Take 1 tablet by mouth every 6 (six) hours as needed (Nausea/Vomiting) Dispense: 30 tablet Refill: 1 Ondansetron HCl 8 MG Oral Tablet (ZOFRAN) Sig: Take 1 tablet by mouth every 8 (eight) hours as needed for Nausea or Vom iting Dispense: 20 tablet Refill: 1 predniSONE 10 MG Oral Tablet (DELTASONE) Sig: Take 1 tablet by mouth daily Dispense: 21 tablet Refill: 0 DISCONTD: leuprolide (ELIGARD) SubQ injection 22.5 mg for 3-month adminis tration leuprolide acetate (LUPRON) injection 22.5 mg * Willow Genao NP - 11/23/2020 8:45 AM EDT Images from the original note were not included. Hematology/Oncology Follow Up Note Diagnosis: 1. Prostate cancer metastatic to bone 2. Cancer associated pain 3. Encounter for antineoplastic chemotherapy 4. Bone metastases 5. Use of leuprolide acetate (Lupron) Date of Cancer Diagnosis: 11/2015 Cancer Stage Prostate cancer metastatic to bone, Clinical stage from 02/14/2016: Stage IV (TX , NX, M1b, PSA: 20 or greater, Greg X) Past Treatment: - Casodex started in November 2015 - Docetaxel 75 mg/m2 x 6 cycles 02/15/2016- 05/30/2016 - [place] 223 given 09/14/2016 until 02/01/2017 - Enzalutamide 07/02/2018- October 2020 Current Treatment: - Lupron 22.5 mg IM every 3 months - Due to start Jevtana today ECOG Performance Status: 0- Fully active, able [...] 2015, he presented to the ER in [place] with neurologic symptoms. Wo rk up was [...] 223 treatment based on the "Alpha Emitter Lakeway-223 and Survival in Metastatic Prostate Cancer" (N [...] benefit of radium-233 as compared with placebo. Lakeway-223 was associated with low myelosuppression rates and [...] for follow up, accompanied by his son. He denies any recent fever or concern for infection. Appetite has been stable. Denies any worsening pain since his last visit. He is currently utilizin g oxycodone every 4 hours as needed and was also started on extended release mor phine but noted a bad headache with that so he has stopped taking it. He has no ticed improvement in his hematuria and denies any further urinary complaints. 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 carisoprodol (SOMA) 350 MG tablet Take 350 mg by mouth Four times daily a s needed for Muscle spasms. chlorhexidine (PERIDEX) 0.12 % solution clobetasol (TEMOVATE) 0.05 % ointment Apply topically Two Times Daily 30 g 5 dronabinol (MARINOL) 10 MG capsule TAKE ONE CAPSULE BY MOUTH TWO TIMES A DAY MAXIMUM DAILY DOSE 2 0 fluocinolone (SYNALAR) 0.025 % ointment APPLY TO PSORIATIC PLAQUES ON ELB OWS ONCE DAILY 2 Morphine Sulfate ER 15 MG Oral Tablet Extended Release (MS CONTIN) Take 1 tablet by mouth Two Times Daily , Max Daily Dose: 30 mg 60 tablet 0 Multiple Vitamins-Minerals (CERTAVITE/ANTIOXIDANTS) TABS Take by mouth ondansetron (ZOFRAN) 8 MG tablet Take 1 tablet by mouth every 8 (eight) h ours as needed for Nausea or Vomiting. 20 tablet 5 oxyCODONE HCl 15 MG Oral Tablet (ROXICODONE) Take 1 tablet by mouth every 4 (four) hours as needed for PainCancer related pain, Max Daily Dose: 90 mg In dications: Chronic Pain 180 tablet 0 tamsulosin HCl (FLOMAX) 0.4 MG CAPS Take 0.4 mg by mouth daily. Xtandi 40 MG Oral Capsule (Enzalutamide) TAKE 4 CAPSULES BY MOUTH EVERY D AY 120 capsule 5 [DISCONTINUED] Catheters (BARD COUDE TIP CATHETER) MISC Use as directed. Use as directed 6 times daily 540 each 3 aspirin 81 MG tablet Take 81 mg by mouth daily. (Patient not taking: Repo rted on 08/17/2020) gabapentin (NEURONTIN) 300 MG capsule Take 1 capsule by mouth Three times daily Take 2 caps tid 600 mg per dose 180 capsule 3 Syringe/Needle (Disp) 26G X 5/8" 1 ML Use as directed. Urology kit 1 (Pat ient not taking: Use as directed. Reported on 08/17/2020) 25 each 6 SYRINGE/NEEDLE, DISP, 1 ML 26G X 5/8" 1 ML MISC Use as directed. Urology Kit 1 (Patient not taking: Use as directed. Reported on 08/17/2020) 25 each 6 No current facility-administered medications on file prior to visit. Review of Systems Constitutional: Negative for activity change, appetite change, fatigue and fever . HENT: Positive for dental problem. Eyes: Negative for visual disturbance. Respiratory: Negative for cough and shortness of breath. Cardiovascular: Negative for chest pain and leg swelling. Gastrointestinal: Negative for abdominal distention, abdominal pain, blood in st ool, constipation, diarrhea, nausea and vomiting. Genitourinary: Negative for dysuria and hematuria. Musculoskeletal: Positive for arthralgias. Skin: Negative for rash. Neurological: Negative for dizziness and headaches. Hematological: Negative for adenopathy. Does not bruise/bleed easily. Psychiatric/Behavioral: Negative for sleep disturbance. The patient is not nervo us/anxious. Objective: Vitals: Vitals - 1 value per visit 11/16/2020 11/23/2020 11/24/2020 SYSTOLIC 113 135 - DIASTOLIC 82 87 - PULSE 110 83 - TEMPERATURE 98.5 98.1 - RESPIRATIONS 16 16 - Weight (kg) 87.544 kg 86.183 kg 86.183 kg HEIGHT - - 172.7 cm SPO2 97 97 - BODY MASS INDEX 29.35 kg/m2 28.9 kg/m2 28.9 kg/m2 PAIN SCALE - SCORE 7 4 2 PAIN SCALE - LOCATION BACK GENERALIZED - PAIN SCALE - COMMENT - - PT states pain in his lower back and neck Physical Exam Vitals reviewed. Constitutional: Appearance: Normal appearance. HENT: Head: Normocephalic and atraumatic. Nose: Nose normal. No congestion. Mouth/Throat: Comments: multiple missing teeth, no apparent abscess or swelling noted to lo wer jaw Cardiovascular: Rate and Rhythm: Normal rate. Pulses: Normal pulses. Pulmonary: Effort: Pulmonary effort is normal. Breath sounds: Normal breath sounds. Abdominal: General: Bowel sounds are normal. There is no distension. Palpations: Abdomen is soft. There is no mass. Musculoskeletal: General: No swelling. Normal range of motion. Cervical back: Normal range of motion and neck supple. Skin: General: Skin is warm and dry. Coloration: Skin is not jaundiced or pale. Neurological: General: No focal deficit present. Mental Status: He is alert and oriented to person, place, and time. Psychiatric: Mood and Affect: Mood normal. Behavior: Behavior normal. Thought Content: Thought content normal. Judgment: Judgment normal. Imaging CT thorax 11/08/20 CT abdomen/pelvis 11/08/20 [...] ove r S1 measuring approximately 9 mm. Lab Review Office Visit on 11/23/2020 Component Date Value Ref Range Status White Blood Cell 11/23/2020 7.1 4.00 - 10.00 10*3/uL Final Red Blood Cell 11/23/2020 3.71* 4.60 - 6.10 10*6/uL Final Hemoglobin 11/23/2020 12.0* 13.5 - 18.0 g/dL Final Hematocrit 11/23/2020 35.3* 41.0 - 53.0 % Final Mean Cell Volume 11/23/2020 95.1 80.0 - 96.0 fL Final Mean Cell Hemoglobin 11/23/2020 32.3 27.0 - 33.0 pg Final Mean Cell Hgb Conc 11/23/2020 33.9 32 - 36 g/dL Final Red Cell Dist Width 11/23/2020 14.5 11.5 - 14.5 % Final Platelet Count 11/23/2020 365 150 - 400 10*3/uL Final Differential Type 11/23/2020 Automated Diff Final Neutrophil 11/23/2020 66 % Final Lymphocyte 11/23/2020 24 % Final Monocyte 11/23/2020 8 % Final Eosinophil 11/23/2020 1 % Final Basophil 11/23/2020 1 % Final Abs Neutrophil 11/23/2020 4.65 1.80 - 7.00 10*3/uL Final Abs Lymphocyte 11/23/2020 1.73 1.20 - 4.00 10*3/uL Final Abs Monocyte 11/23/2020 0.58 0.00 - 0.80 10*3/uL Final Abs Eosinophil 11/23/2020 0.09 0.00 - 0.50 10*3/uL Final Abs Basophil 11/23/2020 0.08 0.00 - 0.20 10*3/uL Final Nucleated Red Blood Cells 11/23/2020 0 0 - 0 /100 Final Albumin 11/23/2020 3.7 3.5 - 5.2 g/dL Final Bilirubin, Total 11/23/2020 0.4 <1.2 mg/dL Final Calcium 11/23/2020 9.4 8.6 - 10.0 mg/dL Final Chloride 11/23/2020 100 98 - 107 mmol/L Final Creatinine 11/23/2020 0.72 0.70 - 1.20 mg/dL Final Glucose 11/23/2020 117 70 - 140 mg/dL Final Alkaline Phosphatase 11/23/2020 103 40 - 129 U/L Final Potassium 11/23/2020 3.9 3.4 - 5.1 mmol/L Final Total Protein 11/23/2020 6.8 6.4 - 8.3 g/dL Final Sodium 11/23/2020 135* 136 - 145 mmol/L Final AST/SGO 11/23/2020 31 <40 U/L Final Blood Urea Nitrogen 11/23/2020 12 8 - 23 mg/dL Final Osmolality, Edwin 11/23/2020 280 275.0 - 300.0 mosm/kg Final BUN/Cre Ratio 11/23/2020 16 Final Bicarbonate 11/23/2020 21* 22 - 29 mmol/L Final ALT/SGP 11/23/2020 19 <41 U/L Final Anion Gap 11/23/2020 13 8 - 15 mmol/L Final GFR Non 2008 CDK-* 11/23/2020 >90 >60 mL/min/1.73m2 Final GFR 2008 CKD-EPI 11/23/2020 >90 >60 mL/min/1.73m2 Final PSA Total 11/23/2020 2.8 <4.0 ng/mL Final Comment: Serum levels of PSA should not be interpreted as absolute evidence of the presence or absence of Cancer. Results obtained with different methods canno t be used interchangeably. This method is manufactured by [employer] and is an electrochemiluminesence immunoassay. Tumor Markers Lab Results Component Value Date PSATOTAL 2.8 11/23/2020 PSATOTAL 2.9 11/16/2020 PSATOTAL 1.6 08/20/2020 Assessment: 60 year old gentleman with stage IV prostate cancer who has progressed through m ultiple lines of treatment in the past. He most recently was undergoing therapy with Enzalutamide and Lupron for which his disease is now progressing. He is jodie nning to switch to Jevtana and presents to clinic today for follow up. 1.) Stage IV prostate cancer: - Prior treatment as outlined above - Has continued treatment with Enzalutamide since 07/02/2018 - Most recent imaging and repeat PSA consistent with progression of disease - Planning to start systemic treatment with Jevtana with life prolonging goal - Chemotherapy teach and written consent obtained 2.) Encounter for antineoplastic therapy: - CBC and CMP reviewed - Proceed with day 1 Cabazitaxel 20 mg/m2 IV over 60 minutes along with predniso ne 10 mg PO daily - Repeat cycle every 21 days 3.) Use of Lupron: - Continue 22.5 mg once every 3 months, due today 4.) Bone metastasis: - Further denosumab contraindicated due to ONJ 5.) Cancer related pain: - Follows with palliative care for pain management - Continue oxycodone q4h prn - Has appointment with palliative care tomorrow 11/24/2020 6.) Hematuria: - Improved since last visit - Has been referred to Dr. Greene of Urology Plan: Louis Mccann should return in 3 weeks for OV, labs, infusion for Jevt marquita Imaging prior to return to clinic?: no [...] documented in this encounter Nursing Notes * Alesia Ferguson RN - 11/23/2020 8:45 AM EDT TREATMENT ADMINISTRATION NOTE: Louis Mccann presents to infusion for Cycle 1, Day 1, of Jevtana. Seen in clinic prior to infusion . See Oncology Nursing Assessment flowsheet for patien ts assessment. Port flushed easily and blood return was confirmed before, during, and after treatment. Patient tolerated infusion well. Following infusio n, Port discontinued per protocol. VS stable, and as noted below. Patient encour aged to call with any questions or concerns and aware of 24 hour on-call service . Pt aware to pickle cutter and start prednisone today. Pt will also pickle cutter antiemet ics and use them PRN.Patient is aware of need to return to clinic. AVS provided with next appointment date and time. Patient discharged home, accompanied by son . Visit Vitals BP 135/87 (BP Location: Right arm) Pulse 83 Temp 36.7 C (98.1 F) (Oral) Resp 16 Wt 86.2 kg (190 lb) SpO2 97% BMI 28.90 kg/m * Yadira Gilbert RN - 11/23/2020 8:45 AM EDT Pt teaching- written ([email or web address]) & verbal regarding Cabazetaxel given to Pt & family. Pt to continue on Eligard. Discussed all but not limited to; schedule of treatments, IV, infusion, side effects, self-care tips, when to call , 24 hour cancer center phone number & answering service. Pt. asked appropriate questions and verbalized an understanding of answers and teaching provided. Pt was encouraged to call our office with any further questions and/or concerns, any issues or side effects. Chemo consent obtained. documented in this encounter Plan of Treatment Care Team Description Date Type Specialty 12/20/2020 Clinical Hematology and Onco logy Support Georgi Greene MD [address] [place] [address] 12/22/2020 Procedure visit Urology Óscar Peralta MD [address] [place] [address] 01/11/2021 Office Visit Hematology and Onco logy Health Maintenance Due Date Last Done Comments Hepatitis C Screening (B. 1960 [id number]) MMR Vaccines (1 of 1 - 1961 [...] ot Implanted Type Area Manufactur er 04/29/2020 [id number] / [id number] Port- Power Pac-10fr Dl Lpronew Chest KRAMER S Intro - [id number] MEDICAL Implanted: Qty: 1 on 02/11/2016 by Francoise Olivares MD at [facility] INPATIENT documented as of this encounter Procedures Comments Procedure Name Priority Date/Time Associated Diag nosis CBC AND DIFFERENTIAL Routine 11/23/2020 Prostate cancer 9:06 AM EDT metastatic to bone PSA Routine 11/23/2020 Prostate cancer 9:06 AM EDT metastatic to bone COMPREHENSIVE METABOLIC STAT 11/23/2020 Prosta te cancer PANEL 9:06 AM EDT metastatic to bone LAB RESULTS 11/08/2020 (OUTSIDE/HISTORICAL) 10:31 AM EDT LAB RESULTS 11/08/2020 (OUTSIDE/HISTORICAL) 10:30 AM EDT RADIOLOGY REPORT 11/08/2020 10:27 AM EDT RADIOLOGY REPORT 11/08/2020 10:26 AM EDT documented in this encounter Results * PSA (11/23/2020 9:06 AM EDT) PSA Total 2.8 <4.0 ng/mL [facility] Comment: [facility] Serum levels of PSA should not Pathology be interpreted as absolute evidence of the presence or absence of Cancer. Results obtained with different methods cannot be used interchangeably. This method is manufactured by [employer] and is an electrochemiluminesence immunoassay. Specimen Plasma Performing Organization Address City/State/ZIP Code P ezra Number [facility] [address] [place], [place] [address] PATHOLOGY [facility] [address] [place], [place] [address] Clin Pathology * Comprehensive metabolic panel (11/23/2020 9:06 AM EDT) Albumin 3.7 3.5 - 5.2 g/dL [facility] Clin Pathology Bilirubin, 0.4 <1.2 mg/dL [facility] Total [facility] Clin Pathology Calcium 9.4 8.6 - 10.0 mg/dL [facility] Pathology Chloride 100 98 - 107 mmol/L [facility] Pathology Creatinine 0.72 0.70 - 1.20 mg/dL [facility] Pathology Glucose 117 70 - 140 mg/dL [facility] Clin Pathology Alkaline 103 40 - 129 U/L [facility] Phosphatase [facility] Clin Pathology Potassium 3.9 3.4 - 5.1 mmol/L [facility] Clin Pathology Total Protein 6.8 6.4 - 8.3 g/dL [facility] Clin Pathology Sodium 135 (L) 136 - 145 mmol/L [facility] Pathology AST/SGO 31 <40 U/L [facility] Pathology Blood Urea 12 8 - 23 mg/dL [facility] Nitrogen [facility] Clin Pathology Osmolality, Edwin 280 275.0 - 300.0 [facility] mosm/kg [facility] Clin Pathology BUN/Cre Ratio 16 [facility] Clin Pathology Bicarbonate 21 (L) 22 - 29 mmol/L [facility] Clin Pathology ALT/SGP 19 <41 U/L [facility] Clin Pathology Anion Gap 13 8 - 15 mmol/L [facility] Clin Pathology GFR Non >90 >60 mL/min/1.73m2 [facility] e [place] 2008 Med [facility] Clin CDK-EPI Pathology GFR >90 >60 mL/min/1.73m2 [facility] 2008 [facility] CKD-EPI Pathology Specimen Plasma Performing Organization Address City/State/ZIP Code P ezra Number [facility] [address] [place], [place] [address] PATHOLOGY [facility] [address] [place], [place] [address] Clin Pathology * CBC and differential (11/23/2020 9:06 AM EDT) White Blood 7.1 4.00 - 10.00 10*3/uL [facility] ate Cell [facility] Clin Pathology Red Blood Cell 3.71 (L) 4.60 - 6.10 10*6/uL [facility] te [facility] Clin Pathology Hemoglobin 12.0 (L) 13.5 - 18.0 g/dL [facility] Clin Pathology Hematocrit 35.3 (L) 41.0 - 53.0 % [facility] Clin Pathology Mean Cell 95.1 80.0 - 96.0 fL [facility] Volume [facility] Clin Pathology Mean Cell 32.3 27.0 - 33.0 pg [facility] Hemoglobin Med [facility] Clin Pathology Mean Cell Hgb 33.9 32 - 36 g/dL [facility] Conc [facility] Clin Pathology Red Cell Dist 14.5 11.5 - 14.5 % [facility] Width [facility] Clin Pathology Platelet Count 365 150 - 400 10*3/uL [facility] Clin Pathology Differential Automated Diff [facility] Type Med [facility] Clin Pathology Neutrophil 66 % [facility] Pathology Lymphocyte 24 % [facility] Pathology Monocyte 8 % [facility] Pathology Eosinophil 1 % [facility] Clin Pathology Basophil 1 % [facility] Clin Pathology Abs Neutrophil 4.65 1.80 - 7.00 10*3/uL [facility] Path[facility] Abs Lymphocyte 1.73 1.20 - 4.00 10*3/uL [facility] Abs Monocyte 0.58 0.00 - 0.80 10*3/uL [facility] Pathology Abs Eosinophil 0.09 0.00 - 0.50 10*3/uL [facility] Clin Pathology Abs Basophil 0.08 0.00 - 0.20 10*3/uL [facility] Clin Pathology Nucleated Red 0 0 - 0 /100{WBCs} [facility] Blood Cells [facility] Clin Pathology Specimen EDTA Whole Blood Performing Organization Address City/State/ZIP Code P ezra Number [facility] [address] [place], [place] [address] PATHOLOGY [facility] [address] [place], [place] [address] Clin Pathology * LAB RESULTS (OUTSIDE/HISTORICAL) (11/08/2020 10:31 AM EDT) Narrative Performed At This result has an attachment that is n ot available. * LAB RESULTS (OUTSIDE/HISTORICAL) (11/08/2020 10:30 AM EDT) Narrative Performed At This result has an attachment that is n ot available. * RADIOLOGY REPORT (11/08/2020 10:27 AM EDT) Narrative Performed At This result has an attachment that is n ot available. * RADIOLOGY REPORT (11/08/2020 10:26 AM EDT) Narrative Performed At This result has an attachment that is n ot available. 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 Administer through a 0.22 micron filter. 11/23/2020 10:51 AM EDT 20 mg dexamethasone (DECADRON) tablet 20 mg Given 20 mg, Oral, Once, On Sun11/23/20 at 1030, For 1 dose, Give prior to chemotherapy. 11/23/2020 10:52 AM EDT 25 mg diphenhydrAMINE (BENADRYL) capsule 25 mg Given 25 mg, Oral, Once, On Sun11/23/20 at 1030, For 1 dose, Give prior to chemotherapy. 11/23/2020 10:52 AM EDT 20 mg famotidine (PEPCID) tablet 20 mg Given 20 mg, Oral, Once, On Sun11/23/20 at 1030, For 1 dose 11/23/2020 12:59 PM EDT 22.5 mg Right Ve ntrogluteal leuprolide acetate (LUPRON) injection Given 22.5 mg 22.5 mg, Intramuscular, Once, On Sun11/23/20 at 1130, For 1 dose, FOR IM USE ONLY 11/23/2020 10:53 AM EDT 16 mg ondansetron (ZOFRAN) tablet 16 mg Given 16 mg, Oral, Once, On Sun11/23/20 at 1030, For 1 dose, Give prior to chemotherapy documented in this encounter
--- OUTSIDE RECORDS SUMMARY | 2021-02-16 11:26 | CCD | Summary of Care ---
Author Author [facility] Organization [facility] Address Unknown Phone Unavailable Care Team Providers Care Precision Assembler Name Role Phone Fabian Infante MD PCP Reason for Referral * Consultation (Routine) Referred By Contact Referred To Contact Status Reason Specialty Diagnoses / Procedures Georgi Greene MD [address] [place] [phone] Email: [email or web address] Beka Ford MD [facility] [address] [address] Email: [email or web address] Open Specialty Services Radiation Diagnoses Required Oncology Prostate cancer metastatic to bone Electronically signed by Georgi Greene MD at Reason for Visit * Reason Comments Procedure cysto * Diagnostic Medical (STAT) Referred By Contact Referred To Contact Status Reason Specialty Diagnoses / Procedures Fabian Infante MD [address] [address] Georgi Greene MD [address] [place] [phone] Email: [email or web address] Authorized Urology Diagnoses Malignant neoplasm of prostate Secondary malignant neoplasm of bone P rocedures Evaluate Treat Follow up Encounter Details Care Team Description Date Type Department Georgi Greene MD [address] [place] [phone] Prostate cancer metastatic to bone (Prim shaylee Dx) 12/22/2020 Procedure visit [facility] Urology [address] [place] [phone] Allergies No Known Active Allergiesdocumented as of this encounter (statuses as of 12/22/2020) Medications End Date Status Medication Sig Dispensed Refills Start Date Active aspirin 81 MG tablet Take 81 mg by 0 mouth daily Active calcium carbonate Take 600 mg 0 (OS-EDWIN) 600 MG TABS by mouth daily Active [...] : Primary prostate MOUTH EVERY adenocarcinoma DAY Active Prochlorperazine Maleate Take 1 tablet 30 [...] 12/14 Oral Tablet by mouth 1 daily Status Hospital, Clinic, or Ordered Dose Route Frequency Start End Date Other Facility Date Administered Medication Discontinued lidocaine (XYLOCAINE) 2 % 20 mL UR Once 12/23/19 urojet 20 mL 21 1 documented as of this encounter (statuses as of 12/22/2020) Active Problems Problem Noted Date Carpal tunnel [...] Added automatically from request for mary bowling [id number] Cervical spondylosis 09/14/2017 Numbness of right hand [...] looking for interventional pain help, first in [facility] area L ast Assessment & Plan: Formatting of this note might be differ ent from the original. Pain controlled on actual. Weight gain of concern. Executed HCP form. 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 Elevated PSA Left flank pain documented as of this encounter (statuses as of 12/22/2020) Resolved Problems Problem Noted Date Resolved Date Prostate cancer 02/23/2016 10/24/2016 documented as of this encounter (statuses as of 12/22/2020) Social History Date Tobacco Use Types Packs/Day [...] Signs Reading Time Taken Comments Vital Sign 110/72 12/22/2020 11:51 AM EDT Blood Pressure 108 12/22/2020 11:51 AM EDT Pulse 36.6 C (97.9 F) 12/22/2020 11:51 AM EDT Temperature 16 12/22/2020 11:51 AM EDT Respiratory Rate 95% 12/22/2020 11:51 AM EDT Oxygen Saturation - - Inhaled Oxygen Concentration 78.5 kg (173 lb) 12/22/2020 11:51 AM EDT Weight 172.7 cm (5' 7.99") 12/22/2020 11:51 AM EDT Height 26.31 12/22/2020 11:51 AM EDT Body Mass Index documented in this encounter Progress Notes * Georgi Greene MD - 12/22/2020 11:30 AM EDT Subjective: 60 y.o. male with a long history of metastatic prostate cancer as stated below presents for evaluation of gross hematuria that has been present for 1 month. Th e patient self caths and he said that he slowly started noticing clots in the ur ine as well as grossly bloody urine almost every time he urinates. Oncologic history: he began receiving testosterone injections through his PCP in early 2015 due to symptomatic low testosterone. Following the first few doses, he developed obstructive urinary symptoms with increased frequency, hesitancy, n octuria, and a weak stream. He was placed on doxazosin which did provide relief of his symptoms. In November 2015, he presented to the ER in [place] with neurologic symptoms. Wo rk up was [...] bone metastatic disease, he was offered radium 223. He received radium 223 from 09/14/2016 until 02/01/2017 which he tolerated well. Restaging scans after radium 223 were stable however there was a questionable ne w metastatic lesion on the c spine. The patient has remained on ADT therapy via Lupron being given every 3 months. In addition, he has received Xgeva but this h as been on hold since September 2017 due to ongoing dental work. He had staging scans on 06/18/18 which showed progression in the bone with new le jose in T6 vertebral body. He was started on Enzalutamide on 07/02/18with a do wntrend in his PSA since that time. He uses oxycodone sparingly and has been fol lowing with palliative care. He has been dealing with issues with jaw necrosis a nd had been following with oral surgeon. He is now pursuing upcoming hyperbaric treatments. I was planning on performing cystoscopy today because he was having persistent g ross hematuria. Based on his CT scan findings I was worried that he had signifi cant bladder neck invasion of the prostate. Today he says that he has had no he maturia in the past week and Would like to avoid manipulation of his prostatic urethra. He is starting to s[place] rectal symptoms and says that he has constipation and decreased caliber of hi s stools. Patient Active Problem List Diagnosis Date Noted Carpal tunnel syndrome of right wrist 12/22/2020 Chronic fatigue syndrome 12/22/2020 Essential hypertension 12/22/2020 Neuropathy 12/22/2020 Obstructive uropathy 12/22/2020 Osteonecrosis of jaw 12/22/2020 Psoriasis 12/22/2020 Reactive depression (situational) 12/22/2020 Pain due to neoplasm 12/22/2020 Malignant tumor of prostate 12/22/2020 Secondary malignant neoplasm of bone 12/22/2020 Lesion of ulnar nerve 12/22/2020 Gross hematuria 12/01/2020 Ulnar neuropathy at elbow of right upper extremity 10/01/2017 Cervical spondylosis 09/14/2017 Numbness of right hand 09/14/2017 Cervical spinal stenosis 09/14/2017 Erectile dysfunction 08/01/2017 Cancer related pain 11/29/2016 Palliative care by specialist 06/07/2016 Left flank pain Urinary retention 02/23/2016 Elevated PSA Prostate cancer metastatic to bone 02/15/2016 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 Current Outpatient Medications: aspirin 81 MG tablet, Take 81 mg by mouth daily , Disp: , Rfl: calcium carbonate (OS-EDWIN) 600 MG TABS, Take 600 mg by mouth daily , Dis p: , Rfl: carisoprodol (SOMA) 350 MG tablet, Take 350 mg by mouth Four times daily as needed for Muscle spasms., Disp: , Rfl: chlorhexidine (PERIDEX) 0.12 % solution, , Disp: , Rfl: clobetasol (TEMOVATE) 0.05 % ointment, Apply topically Two Times Daily, Disp: 30 g, Rfl: 5 dronabinol (MARINOL) 10 MG capsule, TAKE ONE CAPSULE BY MOUTH TWO TIMES A DAY MAXIMUM DAILY DOSE 2, Disp: , Rfl: 0 fluocinolone (SYNALAR) 0.025 % ointment, APPLY TO PSORIATIC PLAQUES ON E LBOWS ONCE DAILY, Disp: , Rfl: 2 Lupron Dep[place] (3-Month) 22.5 MG Intramuscular Kit (leuprolide acetate), I nject 22.5 mg into the muscle every 3 (three) months, Disp: , Rfl: Multiple Vitamins-Minerals (CERTAVITE/ANTIOXIDANTS) TABS, Take by mouth , Disp: , Rfl: ondansetron (ZOFRAN) 8 MG tablet, Take 1 tablet by mouth every 8 (eight) hours as needed for Nausea or Vomiting., Disp: 20 tablet, Rfl: 5 Ondansetron HCl 8 MG Oral Tablet (ZOFRAN), Take 1 tablet by mouth every 8 (eight) hours as needed for Nausea or Vomiting, Disp: 20 tablet, Rfl: 1 oxyCODONE HCl 15 MG Oral Tablet (ROXICODONE), Take 1 tablet by mouth chaparrita ry 4 (four) hours as needed for PainCancer related pain, Max Daily Dose: 90 mg Indications: Chronic Pain, Disp: 180 tablet, Rfl: 0 PEG 3350 17 GM/SCOOP Oral Powder (MIRALAX), Take 17 g by mouth daily, Di sp: 510 g, Rfl: 5 Prochlorperazine Maleate 10 MG Oral Tablet (COMPAZINE), Take 1 tablet by mouth every 6 (six) hours as needed (Nausea/Vomiting), Disp: 30 tablet, Rfl: 1 Self-Cath Coude Tip, Use as directed. DAILY, Disp: 8 each, Rfl: 6 Senna-Docusate Sodium 8.6-50 MG Oral Tablet (SENOKOT-S), Take 1 tablet b y mouth daily, Disp: 30 tablet, Rfl: 11 Syringe/Needle (Disp) 26G X 5/8" 1 ML, Use as directed. Urology kit 1, D isp: 25 each, Rfl: 6 SYRINGE/NEEDLE, DISP, 1 ML 26G X 5/8" 1 ML MISC, Use as directed. Urolog y Kit 1, Disp: 25 each, Rfl: 6 tamsulosin HCl (FLOMAX) 0.4 MG CAPS, Take 0.4 mg by mouth daily., Disp: , Rfl: Xtandi 40 MG Oral Capsule (Enzalutamide), TAKE 4 CAPSULES BY MOUTH EVERY DAY, Disp: 120 capsule, Rfl: 5 gabapentin (NEURONTIN) 300 MG capsule, Take 1 capsule by mouth Three colleen es daily Take 2 caps tid 600 mg per dose, Disp: 180 capsule, Rfl: 3 SM Senna Laxative 8.6 MG Oral Tablet, Take 1 tablet by mouth daily, Disp : , Rfl: No current facility-administered medications for this visit. No Known Allergies Review of Systems Pertinent positives noted in the HPI, remainder of complete review of systems ne ilir Objective: Visit Vitals BP 110/72 Pulse (!) 108 Temp 36.6 C (Oral) Resp 16 Ht 1.727 m Wt 78.5 kg (173 lb) SpO2 95% BMI 26.31 kg/m General: Patient is in no apparent distress, pleasant PSYCH: Alert and oriented x3, normal affect Eyes: normal conjunctivae and palpebra HEENT: Normocephalic, atraumatic, oropharynx clear, mucous membranes moist Neck: supple, trachea midline, no thyromegaly Respiratory: normal effort, symmetric expansion Cardiovascular: No extremity edema, palpable pulses Abdominal: soft, non-distended, non tender Extremities: normal range of motion Skin: normal turgor and temperature, no rash Data Review I personally reviewed the patient's past medical, surgical, medication, allergy, family, and social histories as well as pertinent referral/outside records, doc umentation collected by others or provided by the patient. All objective data no lissa above was independently interpreted by me Assessment: Metastatic prostate cancer Local progressive symptoms including gross hematuria, urinary retention, and rec luis symptoms Plan: I agree with the patient that since his hematuria has resolved I would prefer to avoid manipulation of his prostatic urethra. I do think that his gross hematur ia is almost certainly from his prostate and bladder neck invasion. I would lik e to refer him for discussion regarding palliative radiation to the prostate. I do think that this may be difficult because of the sheer size of the prostate. But I am concerned that he may have rectal obstruction soon and will have recur rence of his gross hematuria. I spent a total of 40 minutes caring for this patient today. Thank you for allowing me to participate in this patient's care. Georgi Greene MD, [facility] Director of the Bladder Cancer Program [place] [address] [email or web address] * Hetal Hollis - 12/22/2020 11:30 AM EDT a documented in this encounter Nursing Notes * Kelley Vora RN - 12/22/2020 11:30 AM EDT Cystoscopy not performed today per Dr Greene. documented in this encounter Plan of Treatment Care Team Description Date Type Specialty Óscar Peralta MD [address] [place] [address] [phone] 01/11/2021 Office Visit Hematology and Onco Georgi Fuentes MD [address] [place] [phone] 03/30/2021 Office Visit Urology Order Schedule Name Type Priority Associated Diag noses Ordered: 12/22/2020 Ambulatory referral to Outpatient Routine Prostat e cancer Radiation Oncology Referral metastatic to bone Health Maintenance Due Date Last Done Comments Hepatitis C Screening (B. 1960 [id number]) MMR Vaccines (1 of - 1961 Standard [...] Area Manufactur er 04/29/2020 21-8470-24 / / [id number] Port- Power Pac-10fr Dl Lpronew Chest KRAM[place] S Intro - [id number] MEDICAL Implanted: Qty: 1 on 02/11/2016 by Francoise Olivares MD at [facility] IN[facility] documented as of this encounter Results Not on filedocumented in this encounter Visit Diagnoses Diagnosis Prostate cancer metastatic to bone - Pr imary documented in this encounter
--- OUTSIDE RECORDS SUMMARY | 2021-02-16 11:26 | CCD | Summary of Care ---
Author Author [facility] Organization [facility] Address Unknown Phone Unavailable Care Team Providers Care Printing Worker Supervisor Name Role Phone Fabian Infante MD PCP Reason for Referral * Diagnostic Radiology (Routine) Referred By Contact Referred To Contact Status Reason Specialty Diagnoses / Procedures Óscar Peralta MD [address] [place] [address] Email: [email or web address] Authorized Radiology Diagnoses Primary prostate cancer with metastasis from prostate to other site P rocedures MR Lumbar Spine with and without Contrast Electronically signed by Óscar Peralta MD at * Diagnostic Radiology (Routine) Referred By Contact Referred To Contact Status Reason Specialty Diagnoses / Procedures Óscar Peralta MD [address] [place] [address] Email: [email or web address] Authorized Radiology Diagnoses Primary prostate cancer with metastasis from prostate to other site P rocedures MR Thoracic Spine with and without Contrast Electronically signed by Óscar Peralta MD at Reason for Visit * Diagnostic Radiology (Routine) Referred By Contact Referred To Contact Status Reason Specialty Diagnoses / Procedures Óscar Peralta MD [address] [place] [address] Email: [email or web address] Authorized Radiology Diagnoses Primary prostate cancer with metastasis from prostate to other site P rocedures MR Lumbar Spine with and without Contrast Encounter Details Care Team Description Date Type Department Primary prostate cancer with metastasis from prostate to other site 11/22/2020 [facility] MRI [facility] Encounter [address] [phone] Allergies No Known Active Allergiesdocumented as of this encounter (statuses as of 11/23/2020) Medications End Date Status Medication Sig Dispensed [...] as 25 each 6 ML 26G X 09/04" 1 ML MISC directed. 8 Urology Kit [...] : Primary prostate MOUTH EVERY adenocarcinoma DAY 12/11/2020 Active oxyCODONE HCl 15 MG [...] mg metastatic to bone, Cancer associated pain documented as of this encounter (statuses as of 11/23/2020) Active Problems Problem Noted Date Ulnar neuropathy at elbow of right upper extremity 0 10/01/2017 Overview: Formatting of this note might be differ ent from the original. 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 Elevated PSA Left flank pain documented as of this encounter (statuses as of 11/23/2020) Resolved Problems Problem Noted Date Resolved Date Prostate cancer 02/23/2016 10/24/2016 documented as of this encounter (statuses as of 11/23/2020) Social History Date Tobacco Use Types Packs/Day Years Used Quit: 05/03/1974 Former Smoker Smokeless Tobacco: Never Used Comments Alcohol Use Standard Drinks/Week No 0 (1 standard drink = 0.6 o z pure alcohol) Sex Assigned at Date Recorded Male 09/04/2017 10:36 AM EDT Date Recorded COVID-19 Exposure Response 11/22/2020 3:23 PM EDT In the last month, have you been in contact with No / Unsure someone who was confirmed or suspected to have Coronavirus / COVID-19? documented as of this encounter Last Filed Vital Signs Not on filedocumented in this encounter Plan of Treatment Care Team Description Date Type Specialty Óscar Peralta MD [address] [place] [address] [phone] 11/23/2020 Office Visit Hematology and Onco Mike Gutierrez MD [address] [place] [address] [phone] 11/24/2020 Telemedicine Surgery Georgi Greene MD [address] [place] [phone] 12/01/2020 Initial consult Urology Date/Time Name Type Priority Associated Diag noses 11/22/2020 5:35 PM EDT MR Thoracic Spine with Imaging Routine Primary prostate cancer and without Contrast with metastasis from prostate to other site 11/22/2020 5:35 PM EDT MR Lumbar Spine with and Imaging Routine Prima ry prostate cancer without Contrast with metastasis from prostate to other site Order Schedule Name Type Priority Associated Diag noses As Needed for 1 Occurrences starting until 11/22/2020 MR Thoracic Spine with Imaging Routine Primary prostate cancer and without Contrast with metastasis from prostate to other site As Needed for 1 Occurrences starting until 11/22/2020 MR Lumbar Spine with and Imaging Routine Prima ry prostate cancer without Contrast with metastasis from prostate to other site Health Maintenance Due Date Last Done Comments Hepatitis C Screening (B. 1960 [id number]) MMR Vaccines (1 of 1 - 1961 [...] Area Manufactur er 04/29/2020 21-8470-24 / / [id number] Port- Power Pac-10fr Dl Lpronew Chest [place] S Intro - [id number] MEDICAL Implanted: Qty: 1 on 02/11/2016 by Francoise Olivares MD at [facility] INPATIENT documented as of this encounter Results Not on filedocumented in this encounter Visit Diagnoses Diagnosis Primary prostate cancer with metastasis from prostate to other site Malignant neoplasm of prostate documented in this encounter Administered Medications Action Date Dose Rate Site Medication Order MAR Action 11/22/2020 5:35 PM EDT 9.5 mLs gadobutrol (GADAVIST) contrast injection Given 9.5 mL 9.5 mL (rounded from 9.71 mL = 0.1 mL/k g 97.1 kg), Intravenous, 1 TIME IMAGING, On 11/22/20 at 1700, For 1 dose, Imaging Protocol, Do not mix or administer in the same IV line with other medications. documented in this encounter
--- OUTSIDE RECORDS SUMMARY | 2021-02-16 11:26 | CCD ---
Author Author [facility] Organization [facility] Address Unknown Phone Unavailable Care Team Providers Care Meat Pumper Name Role Phone Fabian Infante Unavailable PROBLEMS Type Condition ICD9-CM Code BEU47-LN Code Onset Dates Condition S tatus W/U Status Risk SNOMED Code Notes Problem PSA elevation R97.2 Active confirmed 671261 005 Problem Malignant neoplasm of prostate C61 Active confir med 33344858 Problem Secondary malignant neoplasm of bone C79.51 Act dunia confirmed 37179867 Problem Situational depression F43.21 Active confirmed 19983697 Problem Neuropathy G62.9 Active confirmed 374711978 Problem Essential hypertension I10 Active confirmed 94585436 Problem 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 Active confirmed 337498415 Problem Psoriasis L40.9 Active confirmed 6943336 Problem 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 Active confirmed 359411580 Problem Chronic fatigue R53.82 Active confirmed 5270 2003 Problem Major osseous defect, other site M89.78 Active conf irmed 17631051 Problem Cancer related pain G89.3 Active confirmed 049970990 Problem Obstructive uropathy N13.9 Active confirmed 9113393 Problem Carpal tunnel syndrome of right wrist G56.01 Ac tive confirmed 262639593215618 Problem Carpal tunnel syndrome of left wrist G56.02 Act dunia confirmed 366924400247997 Problem 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 Active confirmed 973703830 ALLERGIES No Known Allergies ENCOUNTERS from 1960 to 2020-12-23 Encounter Location Date Provider Diagnosis [facility] [address] [facility] [phone] [place] [phone] Nov, Fabian Infante IMMUNIZATIONS No Information SOCIAL HISTORY Tobacco Use: [...] 30 days Active May Have - 14 [place] straight catheter z85.46 intraurethral 10x/Day for 30 [...] Information RESULTS No Results REASON FOR VISIT [facility] referral MEDICAL (GENERAL) HISTORY Type Description [...] Insured Coverage Start Date Coverage End Date [facility] [employer] [facility] [address] [facility] [phone] LAURY LEDEZMA self
--- OUTSIDE RECORDS SUMMARY | 2021-02-16 11:26 | CCD | Summary of Care ---
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 Worker Name Role Phone Fabian Infante MD PCP Reason for Visit * Reason Comments Follow-up Encounter Details Care Team Description Date Type Department Willow Genao, ASSEMBLING FABRICATOR [address] [place] [address] Prostate cancer metastatic to bone (Prim shaylee Dx); Lower abdominal pain; Drug-induced constipation; Dehydration; Hypokalemia 12/14/2020 Office Visit Hematology Oncology [address] [place] [address] Allergies No Known Active Allergiesdocumented [...] by mouth 1 (SENOKOT-S)Indications: daily Drug-induced constipation 12/14/2020 predniSONE 10 MG Oral Take 1 [...] Added automatically from request for mary bowling [id number] Cervical spondylosis 09/14/2017 Numbness of right hand [...] looking for interventional pain help, first in [facility] area L ast Assessment & Plan: [...] Signs Reading Time Taken Comments Vital Sign 148/88 12/14/2020 3:55 PM EDT Blood Pressure 108 12/14/2020 3:55 PM EDT Pulse 36.6 C (97.8 F) 12/14/2020 1:42 PM EDT Temperature 16 12/14/2020 3:55 PM EDT Respiratory Rate 98% 12/14/2020 3:55 PM EDT RA Oxygen Saturation - - Inhaled Oxygen Concentration 78.5 kg (173 lb) 12/14/2020 11:23 AM EDT Weight - - Height 26.31 12/01/2020 2:56 PM EDT Body Mass Index documented in this encounter Progress Notes * Willow Genao, ASSEMBLING FABRICATOR - 12/14/2020 11:00 AM EDT Images from the original note were not included. Hematology/Oncology Follow Up Note Diagnosis: 1. Prostate cancer metastatic to bone 2. Lower abdominal pain 3. Drug-induced constipation 4. Dehydration 5. Hypokalemia Date of Cancer Diagnosis: 11/2015 Cancer Stage Prostate cancer metastatic to bone, Clinical stage from 02/14/2016: Stage IV ([place] , NX, M1b, PSA: 20 or greater, [place] X) Past Treatment: - Casodex started in November 2015 - Docetaxel 75 mg/m2 x 6 cycles 02/15/2016- 05/30/2016 - Carrick 223 given 09/14/2016 until 02/01/2017 - Enzalutamide [...] 2015, he presented to the ER in [place] with neurologic symptoms. Wo rk up was [...] 223 treatment based on the "Alpha Emitter Carrick-223 and Survival in Metastatic Prostate Cancer" (N [...] benefit of radium-233 as compared with placebo. Carrick-223 was associated with low myelosuppression rates and [...] for follow up, accompanied by his son. Reports that he is not feeling well today. He has noted a poor appetite over the last couple weeks but significantly worse in the last week. He tries t o eat but throws up almost everything. Has been able to keep down fluids. Throws up every time he tries to take compazine or zofran. He feels constipated but sanchez s not tried anything to relieve the constipation and has not called the office i n between visits to report any of these symptoms. He is passing gas. Last BM was yesterday which was a very small amount, about a quarter size. Abdomen feels fu ll. No fever. Has been taking oxycodone for pain management which has been worki ng well. He stopped taking the morphine as this was causing bad headaches. He is following with palliative care. Subjective: Past Medical History: Diagnosis Date Bone [...] A DAY MAXIMUM DAILY DOSE 2 0 Lupron Depot (3-Month) 22.5 MG Intramuscular Kit (leuprolide acetate) Inj ect 22.5 mg into the muscle every 3 (three) months Morphine Sulfate ER 15 MG Oral Tablet Extended Release (MS CONTIN) Take 1 tablet by mouth Two Times Daily , Max Daily Dose: 30 mg 60 tablet 0 Multiple Vitamins-Minerals (CERTAVITE/ANTIOXIDANTS) TABS Take by mouth Ondansetron HCl 8 MG Oral Tablet (ZOFRAN) Take 1 tablet by mouth every 8 (eight) hours as needed for Nausea or Vomiting 20 tablet 1 oxyCODONE HCl 15 MG Oral Tablet (ROXICODONE) Take 1 tablet by mouth every 4 (four) hours as needed for PainCancer related pain, Max Daily Dose: 90 mg In dications: Chronic Pain 180 tablet 0 [] predniSONE 10 MG Oral Tablet (DELTASONE) Take 1 tablet by mouth daily 21 tablet 0 Prochlorperazine Maleate 10 MG Oral Tablet (COMPAZINE) Take 1 tablet by m outh every 6 (six) hours as needed (Nausea/Vomiting) 30 tablet 1 Self-Cath Coude Tip Use as directed. DAILY 8 each 6 tamsulosin HCl (FLOMAX) 0.4 MG CAPS Take 0.4 mg by mouth daily. aspirin 81 MG tablet Take 81 mg by mouth daily. (Patient not taking: Repo rted on 08/17/2020) calcium carbonate (OS-EDWIN) 600 MG TABS Take 600 mg by mouth daily. (Patie nt not taking: Reported on 12/01/2020) fluocinolone (SYNALAR) 0.025 % ointment APPLY TO PSORIATIC PLAQUES ON ELB OWS ONCE DAILY (Patient not taking: Reported on 12/01/2020) 2 gabapentin (NEURONTIN) 300 MG capsule Take 1 capsule by mouth Three times daily Take 2 caps tid 600 mg per dose 180 capsule 3 ondansetron (ZOFRAN) 8 MG tablet Take 1 tablet by mouth every 8 (eight) h ours as needed for Nausea or Vomiting. (Patient not taking: Reported on ) 20 tablet 5 Syringe/Needle (Disp) 26G X 5/8" 1 ML Use as directed. Urology kit 1 (Pat ient not taking: Use as directed. Reported on 08/17/2020) 25 each 6 SYRINGE/NEEDLE, DISP, 1 ML 26G X 5/8" 1 ML MISC Use as directed. Urology Kit 1 (Patient not taking: Use as directed. Reported on 08/17/2020) 25 each 6 Xtandi 40 MG Oral Capsule (Enzalutamide) TAKE 4 CAPSULES BY MOUTH EVERY D AY (Patient not taking: Reported on 12/01/2020) 120 capsule 5 No current facility-administered medications on file prior to visit. Review of Systems Constitutional: Positive for appetite change and fatigue. Negative for activity change and fever. HENT: Positive for dental problem. Eyes: Negative for visual disturbance. Respiratory: Negative for cough and shortness of breath. Cardiovascular: Negative for chest pain and leg swelling. Gastrointestinal: Positive for abdominal pain, constipation, nausea and vomiting . Negative for abdominal distention, blood in stool and diarrhea. Genitourinary: Negative for dysuria and hematuria. Musculoskeletal: Positive for arthralgias. Skin: Negative for rash. Neurological: Negative for dizziness and headaches. Hematological: Negative for adenopathy. Does not bruise/bleed easily. Psychiatric/Behavioral: Negative for sleep disturbance. The patient is not nervo us/anxious. Objective: Vitals: Vitals - 1 value per visit 11/24/2020 12/01/2020 12/14/2020 SYSTOLIC - 132 148 DIASTOLIC - 86 88 PULSE - 115 108 TEMPERATURE - 98.7 97.8 RESPIRATIONS - 18 16 Weight (kg) 86.183 kg 84.913 kg 78.472 kg HEIGHT 172.7 cm 172.7 cm - SPO2 - 98 98 BODY MASS INDEX 28.9 kg/m2 28.47 kg/m2 26.31 kg/m2 PAIN SCALE - SCORE 2 6 8 PAIN SCALE - LOCATION - BACK ABDOMEN PAIN SCALE - COMMENT PT states pain in his lower back and neck - c/o weakness an d not able to eat Physical Exam Vitals reviewed. Constitutional: Appearance: Normal [...] prostate cancer. Lab Review Office Visit on 12/14/2020 Component Date Value Ref Range Status White Blood Cell 12/14/2020 10.0 4.00 - 10.00 10*3/uL Final Red Blood Cell 12/14/2020 3.52* 4.60 - 6.10 10*6/uL Final Hemoglobin 12/14/2020 11.2* 13.5 - 18.0 g/dL Final Hematocrit 12/14/2020 32.8* 41.0 - 53.0 % Final Mean Cell Volume 12/14/2020 93.1 80.0 - 96.0 fL Final Mean Cell Hemoglobin 12/14/2020 31.7 27.0 - 33.0 pg Final Mean Cell Hgb Conc 12/14/2020 34.0 32 - 36 g/dL Final Red Cell Dist Width 12/14/2020 14.4 11.5 - 14.5 % Final Platelet Count 12/14/2020 506* 150 - 400 10*3/uL Final Differential Type 12/14/2020 Automated Diff Final Neutrophil 12/14/2020 70 % Final Lymphocyte 12/14/2020 18 % Final Monocyte 12/14/2020 11 % Final Eosinophil 12/14/2020 0 % Final Basophil 12/14/2020 1 % Final Abs Neutrophil 12/14/2020 7.02* 1.80 - 7.00 10*3/uL Final Abs Lymphocyte 12/14/2020 1.79 1.20 - 4.00 10*3/uL Final Abs Monocyte 12/14/2020 1.07* 0.00 - 0.80 10*3/uL Final Abs Eosinophil 12/14/2020 0.00 0.00 - 0.50 10*3/uL Final Abs Basophil 12/14/2020 0.08 0.00 - 0.20 10*3/uL Final Nucleated Red Blood Cells 12/14/2020 0 0 - 0 /100 Final Albumin 12/14/2020 3.7 3.5 - 5.2 g/dL Final Bilirubin, Total 12/14/2020 0.3 <1.2 mg/dL Final Calcium 12/14/2020 10.7* 8.6 - 10.0 mg/dL Final Chloride 12/14/2020 96* 98 - 107 mmol/L Final Creatinine 12/14/2020 1.13 0.70 - 1.20 mg/dL Final Glucose 12/14/2020 113 70 - 140 mg/dL Final Alkaline Phosphatase 12/14/2020 114 40 - 129 U/L Final Potassium 12/14/2020 3.3* 3.4 - 5.1 mmol/L Final Total Protein 12/14/2020 7.1 6.4 - 8.3 g/dL Final Sodium 12/14/2020 136 136 - 145 mmol/L Final AST/SGO 12/14/2020 38 <40 U/L Final Blood Urea Nitrogen 12/14/2020 13 8 - 23 mg/dL Final Osmolality, Edwin 12/14/2020 283 275.0 - 300.0 mosm/kg Final BUN/Cre Ratio 12/14/2020 12 Final Bicarbonate 12/14/2020 22 22 - 29 mmol/L Final ALT/SGP 12/14/2020 14 <41 U/L Final Anion Gap 12/14/2020 18* 8 - 15 mmol/L Final GFR Non 2008 CDK-* 12/14/2020 69 >60 mL/min/1.73m2 Final GFR 2008 CKD-EPI 12/14/2020 80 >60 mL/min/1.73m2 Final PSA Total 12/14/2020 4.3* <4.0 ng/mL Final Comment: Serum levels of PSA should not be interpreted as absolute evidence of the presence or absence of Cancer. Results obtained with different methods canno t be used interchangeably. This method is manufactured by [employer] and is an electrochemiluminesence immunoassay. Tumor Markers Lab Results Component Value Date PSATOTAL 4.3 (H) 12/14/2020 PSATOTAL 2.8 11/23/2020 PSATOTAL 2.9 11/16/2020 Assessment: 60 year old gentleman with stage [...] treatment today due to multitude of symptoms - Will resume in 1 week if having improved appetite, PO intake, and better contr ol of constipation 3.) Use of Lupron: - Continue 22.5 mg once every 3 months, last given on 11/23/2020 4.) Bone metastasis: - Further denosumab contraindicated due to ONJ 5.) Cancer related pain: - Follows with palliative care for pain management - Continue oxycodone q4h prn, discontinued morphine due to side effects 6.) Hematuria: - Improved since last visit - Has been referred to Dr. Greene of Urology 7.) Constipation: - Abdominal x-ray obtained to rule out obstruction - Likely secondary to use of narcotics - Will start daily senna-linden and miralax - Will also give lactulose x 3 days - Advised to call clinic if no improvement within 3 days 8.) Dehydration: - Will give 1 liter of NS in clinic today 9.) Hypokalemia: - Serum potassium 3.3, due to poor PO intake will infuse 1 run of potassium IV i n clinic today Plan: Louis Mccann should return in 1 weeks for infusion only- Jevtana and in 4 weeks for OV, labs, infusion for Jevtana Imaging prior to return to clinic?: no Labs on return to clinic? yes Medication changes? no Opioid induced constipation? yes, Meds for constipation changed: senna, aga alax and lactulose Meds reconciled? yes Referrals needed? There are [...] details were verified and edited as appropriate. Willow Genao NP documented in this encounter Nursing Notes * Destini Tapia RN - 12/14/2020 11:00 AM EDT TREATMENT ADMINISTRATION NOTE: Louis Mccann presents to infusion for hydration and potassium replacement. No treatment today. Notified Willow Genao NP K 3.3, Ca 10.7. 10mEq IVPB order ed. Senna administered for constipation. Pt verbalized understanding of Senna, M iralax, Lactulose and will cotton picker operator from pharmacy today. Per pt hematuria has imp roved. See Oncology Nursing Assessment flowsheet for patients assessment. Port was initiated in clinic. Port flushed easily and blood return was not confi rmed. Willow Genao ASSEMBLING FABRICATOR was via [employer] to notify with no response. Patient jose ated hydration well. Following infusion, Port discontinued per protocol. VS stab le, and as noted below. Patient encouraged to call with any questions or concern s and aware of 24 hour on-call service. Patient is aware of need to return to inic for . AVS provided with next appointment date and time. Patient discharged home, accompanied by son. Visit Vitals BP 148/88 (BP Location: Left arm) Pulse (!) 108 Temp 36.6 C (97.8 F) (Oral) Resp 16 Wt 78.5 kg (173 lb) SpO2 98% Comment: RA BMI 26.31 kg/m documented in this encounter Plan of Treatment Care Team Description Date Type Specialty 12/20/2020 Clinical Hematology and Onco logy Support Georgi Greene MD [address] [place] [address] 12/22/2020 Procedure visit Urology Óscar Perlata MD [address] [place] [address] 01/11/2021 Office Visit Hematology and Onco logy Health Maintenance Due Date Last Done Comments Hepatitis C Screening (B. 1960 [id number]) MMR Vaccines (1 of - 1961 Standard [...] Area Manufactur er 04/29/2020 [id number] / / [id number] Port- Power Pac-10fr Dl Lpronew Chest KRAMER S Intro - [id number] MEDICAL Implanted: Qty: 1 on 02/11/2016 by Francoise Olivares MD at [facility] documented as of this encounter Procedures Comments Procedure Name Priority Date/Time Associated Diag nosis CBC AND DIFFERENTIAL Routine 12/14/2020 Prostate cancer 10:40 AM EDT metastatic to bone PSA Routine 12/14/2020 Prostate cancer 10:40 AM EDT metastatic to bone COMPREHENSIVE METABOLIC STAT 12/14/2020 Prosta te cancer PANEL 10:40 AM EDT metastatic to bone documented in this encounter Results * XR Abdomen AP Supine and AP Erect (12/14/2020 12:49 PM EDT) Specimen Impressions Performed At IMPRESSION: [facility] Nonobstructive bowel gas pattern. Moder ate amount stool noted in the colon. Multiple sclerotic lesions detected thr oughout the pelvis and spine. This is consistent with patient's history of pr ostate cancer. Narrative Performed At [facility] INDICATION: abdominal pain with inabili ty [...] prostate cancer. Procedure Note Interface, Received Via [employer] [facility] - 12/14/2020 12:57 PM EDT INDICATION: [...] history of prostate cancer. Performing Organization Address City/[facility]/ZIP Code P ezra Number [facility] [address] [place] [address] * PSA (12/14/2020 10:40 AM EDT) PSA Total 4.3 (H) <4.0 ng/mL [facility] Comment: [facility] Serum levels of PSA should not Pathology be interpreted as absolute evidence of the presence or absence of Cancer. Results obtained with different methods cannot be used interchangeably. This method is manufactured by [employer] and is an electrochemiluminesence immunoassay. Specimen Plasma Performing Organization Address City/[facility] Code P ezra Number [facility] [address] [place], [place] [address] [address] Clin Pathology * Comprehensive metabolic panel (12/14/2020 10:40 AM EDT) Albumin 3.7 3.5 - 5.2 g/dL [facility] Clin Pathology Bilirubin, 0.3 <1.2 mg/dL [facility] Total [facility] Pathology Calcium 10.7 (H) 8.6 - 10.0 mg/dL [facility]ology Chloride 96 (L) 98 - 107 mmol/L [facility]ology Creatinine 1.13 0.70 - 1.20 mg/dL [facility] Pathology Glucose 113 70 - 140 mg/dL [facility] Pathology Alkaline 114 40 - 129 U/L [facility] Clin Pathology Potassium 3.3 (L) 3.4 - 5.1 mmol/L [facility] Pathology Total Protein 7.1 6.4 - 8.3 g/dL [facility]ology Sodium 136 136 - 145 mmol/L [facility]ology AST/SGO 38 <40 U/L [facility] Pathology Blood Urea 13 8 - 23 mg/dL [facility] Nitrogen [facility] Clin Pathology Osmolality, Edwin 283 275.0 - 300.0 [facility] mosm/kg [facility] Clin Pathology BUN/Cre Ratio 12 [facility] Clin Pathology Bicarbonate 22 22 - 29 mmol/L [facility]ology ALT/SGP 14 <41 U/L [facility] Pathology Anion Gap 18 (H) 8 - 15 mmol/L [facility] Clin Pathology GFR Non 69 >60 mL/min/1.73m2 [facility] e Nepalese 2008 [facility] Clin CDK-EPI Pathology GFR 80 >60 mL/min/1.73m2 [facility] 2008 [facility] CKD-EPI Pathology Specimen Plasma Performing Organization Address City/State/[facility] Code P ezra Number [facility] [address] [place], [place] [address] PATHOLOGY [facility] [address] [place], [place] [address] Clin Pathology * CBC and differential (12/14/2020 10:40 AM EDT) White Blood 10.0 4.00 - 10.00 10*3/uL [facility] ate Cell [facility] Clin Pathology Red Blood Cell 3.52 (L) 4.60 - 6.10 10*6/uL [facility] te [facility] Clin Pathology Hemoglobin 11.2 (L) 13.5 - 18.0 g/dL [facility] Clin Pathology Hematocrit 32.8 (L) 41.0 - 53.0 % [facility] Clin Pathology Mean Cell 93.1 80.0 - 96.0 fL [facility] Volume [facility] Clin Pathology Mean Cell 31.7 27.0 - 33.0 pg [facility] Hemoglobin [facility] Clin Pathology Mean Cell Hgb 34.0 32 - 36 g/dL [facility] Clin Pathology Red Cell Dist 14.4 11.5 - 14.5 % [facility] Width [facility] Clin Pathology Platelet Count 506 (H) 150 - 400 10*3/uL [facility] Clin Pathology Differential Automated Diff [facility] Type [facility] Clin Pathology Neutrophil 70 % [facility] Clin Pathology Lymphocyte 18 % [facility] Pathology Monocyte 11 % [facility] Clin Pathology Eosinophil 0 % [facility] Clin Pathology Basophil 1 % [facility] Clin Pathology Abs Neutrophil 7.02 (H) 1.80 - 7.00 10*3/uL [facility] Clin Pathology Abs Lymphocyte 1.79 1.20 - 4.00 10*3/uL [facility] Clin Pathology Abs Monocyte 1.07 (H) 0.00 - 0.80 10*3/uL [facility] Clin Pathology Abs Eosinophil 0.00 0.00 - 0.50 10*3/uL [facility] Clin Pathology Abs Basophil 0.08 0.00 - 0.20 10*3/uL [facility] Clin Pathology Nucleated Red 0 0 - 0 /100{WBCs} [facility] Blood Cells [facility] Clin Pathology Specimen EDTA Whole Blood Performing Organization Address City/State/ZIP Code P ezra Number [facility] [address], [place] [address] PATHOLOGY [facility] [address] [place], [place] [address] Clin Pathology documented in this encounter Visit Diagnoses Diagnosis Prostate cancer metastatic to bone - Pr imary Lower abdominal pain Abdominal pain, other specified site Drug-induced constipation Other constipation Dehydration Hypokalemia Hypopotassemia documented in this encounter Administered Medications Action Date Dose Rate Site Medication Order MAR Action 12/14/2020 2:10 PM EDT 10 mEq 100 mL/hr potassium chloride 10 mEq in 100 mL IVPB New Bag (premix) 10 mEq, Intravenous, Administer over 60 Minutes, Once, On Sun12/14/20 at 1400, For 1 dose 12/14/2020 2:08 PM EDT 2 tablets senna tablet 2 tablet Given 2 tablet, Oral, Once, On Sun12/14/20 at 1330, For 1 dose 12/14/2020 2:11 PM EDT 1,000 mLs 667 mL/hr sodium chloride 0.9 % bolus 1,000 mL New Bag 1,000 mL, Intravenous, Once, On Sun12/14/20 at 1345, For 1 dose, Infuse ove r 90 minutes documented in this encounter
--- OUTSIDE RECORDS SUMMARY | 2021-02-16 11:27 | CCD | Summary of Care ---
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 Electronically signed by Óscar Peralta MD at * Consultation (STAT) Referred By Contact Referred To Contact Status Reason Specialty Diagnoses / Procedures Óscar Peralta MD [address] [place] [address] Email: [email or web address] Georgi Greene MD [address] [place] [phone] Email: [email or web address] Authorized Specialty Services Urology Diagnoses Required Prostate cancer metastatic to bone Electronically signed by Óscar Peralta MD at Reason for Visit * Reason Comments Follow-up Encounter Details Care Team Description Date Type Department Óscar Peralta MD [address] [place], [place] [phone] Prostate cancer metastatic to bone (Prim shaylee Dx); Cancer associated pain 11/16/2020 Office Visit Hematology Oncology [address] [place] [phone] Allergies No Known Active Allergiesdocumented as of this encounter (statuses as of 11/19/2020) Medications End Date Status Medication Sig Dispensed [...] as of this encounter (statuses as of 11/19/2020) Active Problems Problem Noted Date Ulnar neuropathy at elbow of right upper extremity 0 10/01/2017 Overview: Formatting of this note might be differ ent from the original. Added automatically from request for mary bowling [id number] Cervical spondylosis 09/14/2017 Numbness of right hand [...] looking for interventional pain help, first in [facility] area L ast Assessment & Plan: Formatting of this note might be differ ent from the original. Pain controlled on actual. Weight gain of concern. Executed HCP form. 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 Elevated PSA Left flank pain documented as of this encounter (statuses as of 11/19/2020) Resolved Problems Problem Noted Date Resolved Date Prostate cancer 02/23/2016 10/24/2016 documented as of this encounter (statuses as of 11/19/2020) Social History Date Tobacco Use Types Packs/Day Years Used Quit: 05/03/1974 Former Smoker Smokeless Tobacco: Never Used Comments Alcohol Use Standard Drinks/Week No 0 (1 standard drink = 0.6 o z pure alcohol) Sex Assigned at Date Recorded Male 09/04/2017 10:36 AM EDT Date Recorded COVID-19 Exposure Response 11/16/2020 2:58 PM EDT In the last month, have you been in contact with No / Unsure someone who was confirmed or suspected to have Coronavirus / COVID-19? documented as of this encounter Last Filed Vital Signs Reading Time Taken Comments Vital Sign 113/82 11/16/2020 3:23 PM EDT Blood Pressure 110 11/16/2020 3:23 PM EDT Pulse 36.9 C (98.5 F) 11/16/2020 3:23 PM EDT Temperature 16 11/16/2020 3:23 PM EDT Respiratory Rate 97% 11/16/2020 3:23 PM EDT ra Oxygen Saturation - - Inhaled Oxygen Concentration 87.5 kg (193 lb) 11/16/2020 3:23 PM EDT Weight - - Height 29.35 08/17/2020 8:41 AM EDT Body Mass Index documented in this encounter Progress Notes * Óscar Peralta MD - 11/16/2020 12:45 PM EDT Images from the original note were not included. Hematology/Oncology Follow Up Note Diagnosis: 1. Prostate cancer metastatic to bone 2. Cancer associated pain Date of Cancer Diagnosis: 11/2015 Cancer Stage Prostate cancer metastatic to bone, Clinical stage from 02/14/2016: Stage IV ([place] , NX, M1b, PSA: 20 or greater, [place] X) Past Treatment: - Casodex started in November 2015 - Docetaxel 75 mg/m2 x 6 cycles 02/15/2016- 05/30/2016 - Morley 223 given 09/14/2016 until 02/01/2017 - Xgeva 120 mg SQ monthly Current Treatment: - Lupron 22.5 mg IM every 3 months - Enzalutamide- started 07/02/2018 ECOG Performance Status: 0- Fully active, able [...] 2015, he presented to the ER in [place] with neurologic symptoms. Wo rk up was [...] 223 treatment based on the "Alpha Emitter Morley-223 and Survival in Metastatic Prostate Cancer" (N [...] benefit of radium-233 as compared with placebo. Morley-223 was associated with low myelosuppression rates and [...] rend in his PSA since that time. He uses oxycodone sparingly and has been follow ing with palliative care. He has been dealing with issues with jaw necrosis and had been following with oral surgeon. He is now pursuing upcoming hyperbaric esthela atments. Interim History: Patient here for follow up while currently on lupron and enzalutamide for metast atic prostate cancer. Since his last visit he has developed worsening low back p ain as well as gross hematuria. He had imaging done as follows: CT thorax 11/08/20 CT abdomen/pelvis 11/08/20 He is scheduled for MR spine on 11/22/20. Subjective: Past Medical History: Diagnosis Date Bone [...] daily a s needed for Muscle spasms. Catheters (BARD COUDE TIP CATHETER) MISC Use as directed. Use as directed 6 times daily 540 each 3 chlorhexidine (PERIDEX) 0.12 % solution clobetasol (TEMOVATE) 0.05 % ointment Apply topically Two Times Daily 30 g 5 dronabinol (MARINOL) 10 MG capsule TAKE ONE CAPSULE BY MOUTH TWO TIMES A DAY MAXIMUM DAILY DOSE 2 0 fluocinolone (SYNALAR) 0.025 % ointment APPLY TO PSORIATIC PLAQUES ON ELB OWS ONCE DAILY 2 Multiple Vitamins-Minerals (CERTAVITE/ANTIOXIDANTS) TABS Take by mouth [...] MOUTH EVERY D AY 120 capsule 5 aspirin 81 MG tablet Take 81 mg [...] Vitals: Vitals - 1 value per visit 08/20/2020 10/19/2020 11/16/2020 SYSTOLIC 119 - 113 DIASTOLIC 84 - 82 PULSE 97 - 110 TEMPERATURE 97.5 - 98.5 RESPIRATIONS 16 - 16 Weight (kg) 97.07 kg - 87.544 kg HEIGHT - - - SPO2 95 - 97 BODY MASS INDEX 32.55 kg/m2 - 29.35 kg/m2 PAIN SCALE - SCORE 3 3 7 PAIN SCALE - LOCATION NECK BACK BACK PAIN SCALE - COMMENT - - - Physical Exam Vitals reviewed. Constitutional: Appearance: Normal appearance. HENT: Head: Normocephalic and atraumatic. Nose: Nose normal. No congestion. Mouth/Throat: Comments: multiple lower jaw segment Cardiovascular: Rate and Rhythm: Normal rate. Pulses: [...] Imaging CT thorax 11/08/20 CT abdomen/pelvis 11/08/20 Bone scan 10/05/20 shows: 1. Increased radiopharmaceutical uptake involving a lower thoracic vertebral maria elena dy, likely T10, the right hip, and bilateral superior pubic rami. The activity w ithin the thoracic vertebral body may represent a compression fracture, possibly pathologic. Suggest correlating with updated anatomic imaging. 2. Decreased radiopharmaceutical uptake involving the mandible. Lab Review Office Visit on 11/16/2020 Component Date Value Ref Range Status PSA Total 11/16/2020 2.9 <4.0 ng/mL Final Comment: Serum levels of PSA should not be interpreted as absolute evidence of the presence or absence of Cancer. Results obtained with different methods canno t be used interchangeably. This method is manufactured by [employer] and is an electrochemiluminesence immunoassay. PSA, Free 11/16/2020 0.5 ng/mL Final Free PSA, % 11/16/2020 Not Applicable % Final Probability of Cancer 11/16/2020 (NOTE) Final Comment: Probability of finding prostate cancer on needle biopsy by age: [...] assay method kits cannot be used interchangeably. Albumin 11/16/2020 4.0 3.5 - 5.2 g/dL Final Bilirubin, Total 11/16/2020 0.3 <1.2 mg/dL Final Calcium 11/16/2020 9.5 8.6 - 10.0 mg/dL Final Chloride 11/16/2020 103 98 - 107 mmol/L Final Creatinine 11/16/2020 0.82 0.70 - 1.20 mg/dL Final Glucose 11/16/2020 108 70 - 140 mg/dL Final Alkaline Phosphatase 11/16/2020 97 40 - 129 U/L Final Potassium 11/16/2020 3.6 3.4 - 5.1 mmol/L Final Total Protein 11/16/2020 6.8 6.4 - 8.3 g/dL Final Sodium 11/16/2020 141 136 - 145 mmol/L Final AST/SGO 11/16/2020 25 <40 U/L Final Blood Urea Nitrogen 11/16/2020 19 8 - 23 mg/dL Final Osmolality, Edwin 11/16/2020 294 275.0 - 300.0 mosm/kg Final BUN/Cre Ratio 11/16/2020 24 Final Bicarbonate 11/16/2020 23 22 - 29 mmol/L Final ALT/SGP 11/16/2020 22 <41 U/L Final Anion Gap 11/16/2020 15 8 - 15 mmol/L Final GFR Non 2008 CDK-* 11/16/2020 >90 >60 mL/min/1.73m2 Final GFR 2008 CKD-EPI 11/16/2020 >90 >60 mL/min/1.73m2 Final White Blood Cell 11/16/2020 7.8 4.00 - 10.00 10*3/uL Final Red Blood Cell 11/16/2020 3.86* 4.60 - 6.10 10*6/uL Final Hemoglobin 11/16/2020 12.4* 13.5 - 18.0 g/dL Final Hematocrit 11/16/2020 37.0* 41.0 - 53.0 % Final Mean Cell Volume 11/16/2020 95.7 80.0 - 96.0 fL Final Mean Cell Hemoglobin 11/16/2020 32.2 27.0 - 33.0 pg Final Mean Cell Hgb Conc 11/16/2020 33.6 32 - 36 g/dL Final Red Cell Dist Width 11/16/2020 14.1 11.5 - 14.5 % Final Platelet Count 11/16/2020 345 150 - 400 10*3/uL Final Differential Type 11/16/2020 Automated Diff Final Neutrophil 11/16/2020 63 % Final Lymphocyte 11/16/2020 27 % Final Monocyte 11/16/2020 8 % Final Eosinophil 11/16/2020 1 % Final Basophil 11/16/2020 1 % Final Abs Neutrophil 11/16/2020 4.93 1.80 - 7.00 10*3/uL Final Abs Lymphocyte 11/16/2020 2.14 1.20 - 4.00 10*3/uL Final Abs Monocyte 11/16/2020 0.62 0.00 - 0.80 10*3/uL Final Abs Eosinophil 11/16/2020 0.08 0.00 - 0.50 10*3/uL Final Abs Basophil 11/16/2020 0.06 0.00 - 0.20 10*3/uL Final Nucleated Red Blood Cells 11/16/2020 0 0 - 0 /100 Final Tumor Markers Lab Results Component Value Date PSATOTAL 2.9 11/16/2020 PSATOTAL 1.6 08/20/2020 PSATOTAL 1.4 05/21/2020 Assessment: 59 year old gentleman with stage IV prostate cancer who has progressed through m ultiple lines of treatment in the past. He is now undergoing therapy with Enzalu tamide and Lupron for which his disease is responding. [facility] follow [facility] after recent ED visit for worsening back pain as well as new gr oss hematuria. I spent >25 minutes reviewing implications of rising PSA as well as recent imaging done during ED visit consistent with progression of disease including clear indication to switch therapy to cytotoxic cabazitaxel chemo given prior exposure to induction docetaxel chemo based on recent data from "Cabazitaxel versus Abiraterone or Enzalutamide in Metastatic Prostate Cancer" (N Engl J Med 2019; 381:3516-2547). Patients were randomly assigned, in a 1:1 ratio, patients who had previously received docetaxel and an androgen- signalingtargeted inhibitor (abiraterone or enzalutamide) to receive cabazitaxel (at a dose of 25 mg per square meter of body-surface area intravenously every 3 weeks, plus prednisone daily and granulocyte colony- stimulating factor) or the other androgen-signalingtargeted inhibitor (either 1000 mg of abiraterone plus prednisone daily or 160 mg of enzalutamide daily). The primary end point was imaging-based progression-free survival. Secondary end points of survival, response, and safety were assessed. After a median follow-up of 9.2 months, imaging-based progression or was reported in 95 of 129 patients (73.6%) in the cabazitaxel group, as compared with 101 of 126 patients (80.2%) in the group that received an androgen-signalingtarge lissa inhibitor (hazard ratio, 0.54; 95% confidence interval [CI], 0.40 to 0.73; P <0.001). The median imaging-based progression-free survival was 8.0 months with cabazitaxel and 3.7 months with the androgen-signalingtargeted inhibitor. The median overall survival was 13.6 months with cabazitaxel and 11.0 months with the androgen-signalingtargeted inhibitor (hazard ratio for , 0.64; 95% CI, 0.46 to 0.89; P=0.008). The median progression-free survival was 4.4 months with cabazitaxel and 2.7 months with an androgen- signalingtargeted inhibitor (hazard ratio for progression or , 0.52; 95% CI, 0.40 to 0.68; P<0.001), a prostate-specific antigen response occurred in 35.7% and 13.5% of the patients, respectively (P<0.001), and tumor response was noted in 36.5% and 11.5% (P=0.004). Adverse events of grade 3 or higher occurred in 56.3% of patients receiving cabazitaxel and in 52.4% of those receiving an androgen-signalingtargeted inhibitor. In conclusion, cabazitaxel significantly improved a number of clinical outcomes, as compared with the androgen-signalingtargeted inhibitor (abiraterone or enzal utamide), in patients with metastatic castration-resistant prostate cancer who h ad been previously treated with docetaxel and the alternative androgen-signaling targeted agent (abiraterone or enzalutamide). I once again reiterated pall iative intent of any future systemic therapy to ameliorate cancer related sympto ms and prolong survival in setting of incurable disease. Patient agreeable with overall plan. 1.) Stage IV prostate cancer: - Prior treatment as outlined above - Has continued treatment with Enzalutamide since 07/02/2018 - Reviewed repeat bone scans as above raising suspicion for new pathologic fract ure in lower thoracic vertebrae - Reviewed repeat PSA as well as recent CT imaging consistent with progression - Therefore, as per lengthy discussion above will switch to cabazitaxel chemo 2.) Encounter for antineoplastic therapy: - Will obtain prior authorization for new chemo as follows: Day 1: Cabazitaxel 20mg/m2 IV over 60 minutess Days 1-21: Prednisone 10mg orally once daily. Repeat cycle every 3 weeks. 3.) Use of Lupron: - Continue 22.5 mg once every 3 months, last dose 08/20/20 4.) Bone metastases: - Further denosumab contraindicated due to ONJ - Patient encouraged to keep scheduled appointment for MR spine to rule out path ologic fracture as recommended by radiology 5.) Cancer related pain: - Will add morphine ER 15 PO bid in addition to oxycodone 5 mg every 4 hours prn . I-STOP consulted. 6.) Gross hematuria: - Spoke with Dr. Eldon Byrd from urology who will have patient evaluated by Becky Greene for any indication for urologic intervention 7.) Goals of care: - Re-addressed in light of new progression as detailed above. Plan: Louis Mccann should return in 1 week for lupron and cabazitaxel/predn isone. Imaging prior to return to clinic?: yes MR spine Labs on return to clinic? yes; CBC and CMP Medication changes? no Opioid induced constipation? no Meds reconciled? yes Referrals needed? There are no social work or other referral needs at this time Totaltime spent on this encounter [id number] more than half of [facility] ch was spent in counseling as detailed above. Orders Placed This Encounter CBC and differential Comprehensive metabolic panel PSA, total and free Ambulatory referral to Urology Morphine Sulfate ER 15 MG Oral Tablet Extended Release (MS CONTIN) Next Appointment No follow-ups on file. Future Appointments Date Time Provider Department Center 11/22/2020 4:00 PM MR2 SANDIP [facility] 11/23/2020 8:45 AM Óscar Peralta MD ONCOLOGYCCTR None 11/24/2020 12:45 PM Mike Walker MD MULTI CCTR None 12/01/2020 2:30 PM Georgi Greene MD URO JESSE None Certain parts of this note may have been carried over from the EMR and prior not es to maintain accuracy of patient's pertinent medical history and continuity of care. The details were verified and edited as appropriate. documented in this encounter Plan of Treatment Care Team Description Date Type Specialty 11/22/2020 Appointment Radiology Óscar Peralta MD [address], [place] [phone] 11/23/2020 Office Visit Hematology and Onco Mike Gutierrez MD [address], [place] [phone] 11/24/2020 Telemedicine Surgery Georgi Greene MD [address] [place] [phone] 12/01/2020 Initial consult Urology Order Schedule Name Type Priority Associated Diag noses Ordered: 11/16/2020 Ambulatory referral to Outpatient STAT Prostat e cancer Urology Referral metastatic to bone Health Maintenance Due Date Last Done Comments Hepatitis C Screening (B. 1960 [id number]) MMR Vaccines (1 of 1 - 1961 [...] Area Manufactur er 04/29/2020 [id number] / / [id number] Port- Power Pac-10fr Dl Lpronew Wes Massey Intro - [id number] MEDICAL Implanted: Qty: 1 on 02/11/2016 by Francoise Olivares MD at [facility] documented as of this encounter Procedures Comments Procedure Name Priority Date/Time Associated Diag nosis CBC AND DIFFERENTIAL STAT 11/16/2020 Prostate cancer 3:15 PM EDT metastatic to bone PSA, TOTAL AND FREE STAT 11/16/2020 Prostate c ancer 3:15 PM EDT metastatic to bone COMPREHENSIVE METABOLIC STAT 11/16/2020 Prosta te cancer PANEL 3:15 PM EDT metastatic to bone documented in this encounter Results * PSA, total and free (11/16/2020 3:15 PM EDT) PSA Total 2.9 <4.0 ng/mL [facility] Comment: Med [facility] Clin Serum levels of PSA should not Pathology be interpreted as absolute evidence of the presence or absence of Cancer. Results obtained with different methods cannot be used interchangeably. This method is manufactured by [employer] and is an electrochemiluminesence immunoassay. PSA, Free 0.5 ng/mL [facility] Clin Pathology Free PSA, % Not Applicable % [facility] Pathology Probability of (NOTE) [facility] Cancer Comment: [facility] Probability of finding Pathology prostate cancer on [...] used interchangeably. Specimen Plasma Performing Organization Address City/[facility]/ZIP Code P ezra Number [facility] [address] [place], [place] [address] [address] Clin Pathology * Comprehensive metabolic panel (11/16/2020 3:15 PM EDT) Albumin 4.0 3.5 - 5.2 g/dL [facility] Pathology Bilirubin, 0.3 <1.2 mg/dL [facility] Total [facility] Pathology Calcium 9.5 8.6 - 10.0 mg/dL [facility] Pathology Chloride 103 98 - 107 mmol/L [facility] Pathology Creatinine 0.82 0.70 - 1.20 mg/dL [facility] Pathology Glucose 108 70 - 140 mg/dL [facility] Pathology Alkaline 97 40 - 129 U/L [facility] Clin Pathology Potassium 3.6 3.4 - 5.1 mmol/L [facility] Pathology Total Protein 6.8 6.4 - 8.3 g/dL [facility] Pathology Sodium 141 136 - 145 mmol/L [facility] Pathology AST/SGO 25 <40 U/L [facility] Pathology Blood Urea 19 8 - 23 mg/dL [facility] Clin Pathology Osmolality, Edwin 294 275.0 - 300.0 [facility] mosm/kg [facility] Pathology BUN/Cre Ratio 24 [facility] Pathology Bicarbonate 23 22 - 29 mmol/L [facility] Pathology ALT/SGP 22 <41 U/L [facility] Pathology Anion Gap 15 8 - 15 mmol/L [facility] Pathology GFR Non >90 >60 mL/min/1.73m2 [facility] CDK-EPI Pathology GFR >90 >60 mL/min/1.73m2 [facility] [place] 2008 Med [facility] CKD-EPI Pathology Specimen Plasma Performing Organization Address City/[facility]/ZIP Code P ezra Number [facility] [address] [place], [place] [address] [address] Clin Pathology * CBC and differential (11/16/2020 3:15 PM EDT) White Blood 7.8 4.00 - 10.00 10*3/uL [facility] Red Blood Cell 3.86 (L) 4.60 - 6.10 10*6/uL [facility] Hemoglobin 12.4 (L) 13.5 - 18.0 g/dL [facility] Pathology Hematocrit 37.0 (L) 41.0 - 53.0 % [facility] Pathology Mean Cell 95.7 80.0 - 96.0 fL [facility] Volume [facility] Pathology Mean Cell 32.2 27.0 - 33.0 pg [facility] Hemoglobin [facility] Pathology Mean Cell Hgb 33.6 32 - 36 g/dL [facility] Clin Pathology Red Cell Dist 14.1 11.5 - 14.5 % [facility] Width [facility] Pathology Platelet Count 345 150 - 400 10*3/uL [facility] Pathology Differential Automated Diff [facility] Type [facility] Pathology Neutrophil 63 % [facility] Pathology Lymphocyte 27 % [facility] Pathology Monocyte 8 % [facility] Pathology Eosinophil 1 % [facility] Pathology Basophil 1 % [facility] Pathology Abs Neutrophil 4.93 1.80 - 7.00 10*3/uL [facility] Clin Pathology Abs Lymphocyte 2.14 1.20 - 4.00 10*3/uL [facility] Pathology Abs Monocyte 0.62 0.00 - 0.80 10*3/uL [facility] Clin Pathology Abs Eosinophil 0.08 0.00 - 0.50 10*3/uL [facility] Clin Pathology Abs Basophil 0.06 0.00 - 0.20 10*3/uL [facility] Clin Pathology Nucleated Red 0 0 - 0 /100{WBCs} [facility] Blood Cells [facility] Pathology Specimen EDTA Whole Blood Performing Organization Address City/State/ZIP Code P ezra Number [facility] [address] [place], [place] [address] PATHOLOGY [facility] [address] [place], [place] [address] Clin Pathology documented in this encounter Visit Diagnoses Diagnosis Prostate cancer metastatic to bone - Pr imary Cancer associated pain Neoplasm related pain (acute) (chronic) documented in this encounter
--- OUTSIDE RECORDS SUMMARY | 2021-02-16 11:29 | CCD ---
Author Author [facility] Organization [facility] Address Unknown Phone Unavailable Care Team Providers Care Deputy Sheriff Lieutenant Name Role Phone Loida ARCHER MD Unavailable Unavailable Loida ARCHER MD Unavailable Unavailable Loida ARCHER MD Unavailable Unavailable Loida ARCHER MD Unavailable Unavailable Loida ARCHER MD Unavailable Unavailable Loida ARCHER MD Unavailable Unavailable Loida ARCHER MD Unavailable Unavailable Loida ARCHER MD Unavailable Unavailable Loida ARCHER MD Unavailable Unavailable Loida ARCHER MD Unavailable Unavailable Loida ARCHER MD Unavailable Unavailable Loida ARCHER MD Unavailable Unavailable Loida ARCHER MD Unavailable Unavailable Loida ARCHER MD Unavailable Unavailable Loida ARCHER MD Unavailable Unavailable Loida ARCHER MD Unavailable Unavailable Loida ARCHER MD Unavailable Unavailable Loida ARCHER MD Unavailable Unavailable Loida ARCHER MD Unavailable Unavailable Loida ARCHER MD Unavailable Unavailable Loida ARCHER MD Unavailable Unavailable Loida ARCHER MD Unavailable Unavailable Loida ARCHER MD Unavailable Unavailable GIANNI, K KAMALA MD Unavailable Unavailable GIANNI, K KAMALA MD Unavailable Unavailable GIANNI, K KAMALA MD Unavailable Unavailable GIANNI, K KAMALA MD Unavailable Unavailable GIANNI, K KAMALA MD Unavailable Unavailable GIANNI, K KAMALA MD Unavailable Unavailable GIANNI, K KAMALA MD Unavailable Unavailable GIANNI, K KAMALA MD Unavailable Unavailable GIANNI, K KAMALA MD Unavailable Unavailable GIANNI, K KAMALA MD Unavailable Unavailable GIANNI, K KAMALA MD Unavailable Unavailable GIANNI, K KAMALA MD Unavailable Unavailable GIANNI, K KAMALA MD Unavailable Unavailable GIANNI, K KAMALA MD Unavailable Unavailable GIANNI, K KAMALA MD Unavailable Unavailable GIANNI, K KAMALA MD Unavailable Unavailable GIANNI, K KAMALA MD Unavailable Unavailable GIANNI, K KAMALA MD Unavailable Unavailable GIANNI, K KAMALA MD Unavailable Unavailable GIANNI, K KAMALA MD Unavailable Unavailable GIANNI, K KAMALA MD Unavailable Unavailable GIANNI, K KAMALA MD Unavailable Unavailable GIANNI, K KAAMLA MD Unavailable Unavailable GIANNI, K KAMALA MD Unavailable Unavailable GIANNI, K KAMALA MD Unavailable Unavailable GIANNI, K KAMALA MD Unavailable Unavailable GIANNI, K KAMALA MD Unavailable Unavailable GIANNI, K KAMALA MD Unavailable Unavailable GIANNI, K KAMALA MD Unavailable Unavailable GIANNI, K KAMALA MD Unavailable Unavailable GIANNI, K KAMALA MD Unavailable Unavailable Rice, R Re Unavailable Unavailable Rice, R Re Unavailable Unavailable Rice, R Re Unavailable Unavailable Rice, R Re Unavailable Unavailable Rice, R Re Unavailable Unavailable Rice, R Re Unavailable Unavailable Rice, R Re Unavailable Unavailable Rice, R Re Unavailable Unavailable Rice, R Re Unavailable Unavailable Rice, R Re Unavailable Unavailable Rice, R Re Unavailable Unavailable Rice, R Re Unavailable Unavailable Rice, R Re Unavailable Unavailable Rice, R Re Unavailable Unavailable Rice, R Re Unavailable Unavailable Rice, R Re Unavailable Unavailable RUSTAM CHRISTENSEN MD Unavailable Unavailable FABIAN, RUSTAM MD Unavailable Unavailable FABIAN, RUSTAM MD Unavailable Unavailable FABIAN, RUSTAM MD Unavailable Unavailable FABIAN, RUSTAM MD Unavailable Unavailable FABIAN, RUSTAM MD Unavailable Unavailable FABIAN, RUSTAM MD Unavailable Unavailable FABIAN, RUSTAM MD Unavailable Unavailable FABIAN, RUSTAM MD Unavailable Unavailable FABIAN, RUSTAM MD Unavailable Unavailable FABIAN, RUSTAM MD Unavailable Unavailable FABIAN, RUSTAM MD Unavailable Unavailable FABIAN, RUSTAM MD Unavailable Unavailable FABIAN, RUSTAM MD Unavailable Unavailable FABIAN, RUSTAM MD Unavailable Unavailable FABIAN, RUSTAM MD Unavailable Unavailable FABIAN, RUSTAM MD Unavailable Unavailable FABIAN, RUSTAM MD Unavailable Unavailable FABIAN, RUSTAM MD Unavailable Unavailable FABIAN, RUSTAM MD Unavailable Unavailable FABIAN, RUSTAM MD Unavailable Unavailable FABIAN, RUSTAM MD Unavailable Unavailable FABIAN, RUSTAM MD Unavailable Unavailable FABIAN, RUSTAM MD Unavailable Unavailable FABIAN, RUSTAM MD Unavailable Unavailable FABIAN, RUSTAM MD Unavailable Unavailable FABIAN, RUSTAM MD Unavailable Unavailable FABIAN, RUSTAM MD Unavailable Unavailable FABIAN, RUSTAM MD Unavailable Unavailable FABIAN, RUSTAM MD Unavailable Unavailable FABIAN, RUSTAM MD Unavailable Unavailable FABIAN, RUSTAM MD Unavailable Unavailable FABIAN, RUSTAM MD Unavailable Unavailable FABIAN, RUSTAM MD Unavailable Unavailable FABIAN, RUSTAM MD Unavailable Unavailable FABIAN, RUSTAM MD Unavailable Unavailable FABIAN, RUSTAM MD Unavailable Unavailable FABIAN, RUSTAM MD Unavailable Unavailable FABIAN, RUSTAM MD Unavailable Unavailable FABIAN, RUSTAM MD Unavailable Unavailable FABIAN, RUSTAM MD Unavailable Unavailable FABIAN, RUSTAM MD Unavailable Unavailable FABIAN, RUSTAM MD Unavailable Unavailable FABIAN, RUSTAM MD Unavailable Unavailable FABIAN, RUSTAM MD Unavailable Unavailable FABIAN, RUSTAM MD Unavailable Unavailable FABIAN, RUSTAM MD Unavailable Unavailable FABIAN, RUSTAM MD Unavailable Unavailable FABIAN, RUSTAM MD Unavailable Unavailable FABIAN, RUSTAM MD Unavailable Unavailable FABIAN, RUSTAM MD Unavailable Unavailable FABIAN, RUSTAM MD Unavailable Unavailable FABIAN, RUSTAM MD Unavailable Unavailable FABIAN, RUSTAM MD Unavailable Unavailable FABIAN, RUSTAM MD Unavailable Unavailable FABIAN, RUSTAM MD Unavailable Unavailable FABIAN, RUSTAM MD Unavailable Unavailable FABIAN, RUSTAM MD Unavailable Unavailable FABIAN, RUSTAM MD Unavailable Unavailable FABIAN, RUSTAM MD Unavailable Unavailable FABIAN, RUSTAM MD Unavailable Unavailable FABIAN, RUSTAM MD Unavailable Unavailable FABIAN, RUSTAM MD Unavailable Unavailable FABIAN, RUSTAM MD Unavailable Unavailable FABIAN, RUSTAM MD Unavailable Unavailable FABIAN, RUSTAM MD Unavailable Unavailable FABIAN, RUSTAM MD Unavailable Unavailable FABIAN, RUSTAM MD Unavailable Unavailable FABIAN, RUSTAM MD Unavailable Unavailable FABIAN, RUTSAM MD Unavailable Unavailable FABIAN, RUSTAM MD Unavailable Unavailable FABIAN, RUSTAM MD Unavailable Unavailable FABIAN, RUSTAM MD Unavailable Unavailable FABIAN, RUSTAM MD Unavailable Unavailable FABIAN, RUSTAM MD Unavailable Unavailable FABIAN, RUSTAM MD Unavailable Unavailable FABIAN, RUSTAM MD Unavailable Unavailable FABIAN, RUSTAM MD Unavailable Unavailable FABIAN, RUSTAM MD Unavailable Unavailable FABIAN, RUSTAM MD Unavailable Unavailable FABIAN, RUSTAM MD Unavailable Unavailable FABIAN, RUSTAM MD Unavailable Unavailable FABIAN, RUSTAM MD Unavailable Unavailable FABIAN, RUSTAM MD Unavailable Unavailable LEU[employer]POS[employer] ROLL MAKER [employer] CUTTER, BRADLEY CYNTHIA [employer]KER [employer] CUTTER Unavailable [email or web address] [employer]UT[employer], BRADLEY CYN[employer]IA [employer]UTTER Unavailable [email or web address] [employer]UTTER, BRADLEY CYNTHIA [employer]UTTER Unavailable [email or web address] [employer] MAKER [employer] CUTTER, BRADLEY CYNTHIA [employer]POS[employer] ROLL MAKER [employer] CUTTER Unavailable [email or web address] LEU[employer] MAK[employer] CUTTER, BRADLEY CYNTHIA COMPOS[employer] MAK[employer] CUTTER Unavailable [email or web address] LEU[employer] MAKER [employer] CUTTER, BRADLEY CYNTHIA [employer]UTTER Unavailable [email or web address]UTTER, BRADLEY CYNTHIA [employer]UTTER Unavailable [email or web address]UTTER, BRADLEY CYNTHIA [employer]UTTER Unavailable [email or web address]UTTER, BRADLEY CYNTHIA [employer]UTTER Unavailable [email or web address]UTTER, BRADLEY CYN[employer]IA [employer]UTTER Unavailable [email or web address] CUTTER, BRADLEY CYNTHIA [employer] CUTTER Unavailable [email or web address] CUTTER, BRADLEY CYNTHIA [employer] CUTTER Unavailable [email or web address] CUTTER, BRADLEY CYN[employer]IA [employer] CUTTER Unavailable [email or web address] CUTTER, BRADLEY CYNTHIA [employer] CUTTER Unavailable [email or web address] CUTTER, BRADLEY CYNTHIA [employer]KER [employer] CUTTER Unavailable [email or web address] LEU[employer] COM[employer] MAK[employer] CUTTER, BRADLEY CYNTHIA COMPOS[employer]KER [employer] CUTTER Unavailable [email or web address] LEU[employer]ER [employer]ITION ROLL MAKER [employer] CUTTER, BRADLEY CYNTHIA COM[employer]KER [employer] CUTTER Unavailable [email or web address] LEU[employer] MAKER [employer] CUTTER, BRADLEY CYNTHIA [employer]KER [employer] CUTTER Unavailable [email or web address] LEU[employer]ER [employer] RO[employer] MAKER [employer] CUTTER, BRADLEY CYNTHIA [employer]POS[employer]KER [employer] CUTTER Unavailable [email or web address] LEU[employer]KER [employer] CUTTER, BRADLEY CYNTHIA [employer] MAKER [employer] CUTTER Unavailable [email or web address] LEU[employer]ITION [employer] CUTTER, BRADLEY CYNTHIA COMPOSITION ROLL MAKER [employer] CUTTER Unavailable [email or web address] LEU[employer]ITION [employer] CUTTER, BRADLEY CYN[employer]IA COMPOS[employer] ROLL MAKER AND CUTTER Unavailable [email or web address] LEU[employer]ITION [employer]KER [employer] CUTTER, BRADLEY CYN[employer]IA [employer]LL MAKER [employer] CUTTER Unavailable [email or web address] Brenda Greene MD Unavailable Unavailable Brenda Greene MD Unavailable Unavailable Brenda Greene MD Unavailable Unavailable Brenda Greene MD Unavailable Unavailable Brenda Greene MD Unavailable Unavailable Brenda Greene MD Unavailable Unavailable Brenda Greene MD Unavailable Unavailable Brenda Greene MD Unavailable Unavailable Brenda Greene MD Unavailable Unavailable Brenda Greene MD Unavailable Unavailable Brenda Greene MD Unavailable Unavailable Brenda Greene MD Unavailable Unavailable Brenda Greene MD Unavailable Unavailable Brenda Greene MD Unavailable Unavailable Brenda Greene MD Unavailable Unavailable Brenda Greene MD Unavailable Unavailable Brenda Greene MD Unavailable Unavailable Brenda Greene MD Unavailable Unavailable Brenda Greene MD Unavailable Unavailable Brenda Greene MD Unavailable Unavailable Brenda Greene MD Unavailable Unavailable Brenda Greene MD Unavailable Unavailable Brenda Greene MD Unavailable Unavailable Brenda Greene MD Unavailable Unavailable Brenda Greene MD Unavailable Unavailable Brenda Greene MD Unavailable Unavailable Brenda Greene MD Unavailable Unavailable Brenda Greene MD Unavailable Unavailable Brenda Greene MD Unavailable Unavailable Brenda Greene MD Unavailable Unavailable Brenda Greene MD Unavailable Unavailable Brenda Greene MD Unavailable Unavailable Brenda Greene MD Unavailable Unavailable Brenda Greene MD Unavailable Unavailable Brenda Greene MD Unavailable Unavailable Brenda Greene MD Unavailable Unavailable Brenda Greene MD Unavailable Unavailable Brenda Greene MD Unavailable Unavailable Brenda Greene MD Unavailable Unavailable Brenda Greene MD Unavailable Unavailable Brenda Greene MD Unavailable Unavailable Brenda Greene MD Unavailable Unavailable Brenda Greene MD Unavailable Unavailable Brenda Greene MD Unavailable Unavailable Brenda Greene MD Unavailable Unavailable Brenda Greene MD Unavailable Unavailable Brenda Greene MD Unavailable Unavailable Brenda Greene MD Unavailable Unavailable Brenda Greene MD Unavailable Unavailable Brenda Greene MD Unavailable Unavailable Brenda Greene MD Unavailable Unavailable Bernda Greene MD Unavailable Unavailable Brenda Greene MD Unavailable Unavailable Brenda Greene MD Unavailable Unavailable Brenda Greene MD Unavailable Unavailable Brenda Greene MD Unavailable Unavailable Poiesz, J Vin Unavailable Unavailable Poiesz, J Vin Unavailable Unavailable Poiesz, J Vin Unavailable Unavailable Poiesz, J Vin Unavailable Unavailable Poiesz, J Vin Unavailable Unavailable Poiesz, J Vin Unavailable Unavailable Poiesz, J Vin Unavailable Unavailable Poiesz, J Vin Unavailable Unavailable Poiesz, J Vin Unavailable Unavailable Poiesz, J Vin Unavailable Unavailable Poiesz, J Vin Unavailable Unavailable Poiesz, J Vin Unavailable Unavailable Poiesz, J Vin Unavailable Unavailable Poiesz, J Vin Unavailable Unavailable Poiesz, J Vin Unavailable Unavailable Poiesz, J Vin Unavailable Unavailable Poiesz, J Vin Unavailable Unavailable Poiesz, J Vin Unavailable Unavailable Poiesz, J Vin Unavailable Unavailable Poiesz, J Vin Unavailable Unavailable Poiesz, J Vin Unavailable Unavailable Poiesz, J Vin Unavailable Unavailable Poiesz, J Vin Unavailable Unavailable Poiesz, J Vin Unavailable Unavailable Poiesz, J Vin Unavailable Unavailable Poiesz, J Vin Unavailable Unavailable Poiesz, J Vin Unavailable Unavailable Poiesz, J Vin Unavailable Unavailable Poiesz, J Vin Unavailable Unavailable Poiesz, J Vin Unavailable Unavailable Poiesz, J Vin Unavailable Unavailable Poiesz, J Vin Unavailable Unavailable Poiesz, J Vin Unavailable Unavailable Poiesz, J Vin Unavailable Unavailable Poiesz, J Vin Unavailable Unavailable Poiesz, J Vin Unavailable Unavailable Poiesz, J Vin Unavailable Unavailable Poiesz, J Vin Unavailable Unavailable Poiesz, J Vin Unavailable Unavailable Poiesz, J Vin Unavailable Unavailable Poiesz, J Vin Unavailable Unavailable Poiesz, J Vin Unavailable Unavailable Poiesz, J Vin Unavailable Unavailable Poiesz, J Vin Unavailable Unavailable Poiesz, J Vin Unavailable Unavailable Poiesz, J Vin Unavailable Unavailable Poiesz, J Vin Unavailable Unavailable Poiesz, J Vin Unavailable Unavailable Poiesz, J Vin Unavailable Unavailable PASNICIUC, V GLORIA ZAPIEN Unavailable Unavailable PASNICIUC, Denise CASTRO MD Unavailable Unavailable PASNICIUC, Denise CASTRO MD Unavailable Unavailable PASNICIUC, Denise CASTRO MD Unavailable Unavailable PASNICIUC, Denise CASTRO MD Unavailable Unavailable PASNICIUC, Denise CASTRO MD Unavailable Unavailable PASNICIUC, Denise CASTRO MD Unavailable Unavailable PASNICIUC, Denise CASTRO MD Unavailable Unavailable PASNICIUC, Denise ACSTRO MD Unavailable Unavailable PASNICIUC, V GLORIA ZAPIEN Unavailable Unavailable PASNICIUC, Denise CASTRO MD Unavailable Unavailable PASNICIUC, Denise CASTRO MD Unavailable Unavailable PASNICIUC, Denise CASTRO MD Unavailable Unavailable PASNICIUC, Denise CASTRO MD Unavailable Unavailable PASNICIUC, Denise CASTRO MD Unavailable Unavailable PASNICIUCDenise MD Unavailable Unavailable PASNICIUCDenise MD Unavailable Unavailable PASNICIDenise HOPKINS MD Unavailable Unavailable Rosa Elena Infante MD Unavailable Unavailable Rosa Elena Infante MD Unavailable Unavailable Rosa Elena Infante MD Unavailable Unavailable Rosa Elena Infante MD Unavailable Unavailable Rosa Elena Infante MD Unavailable Unavailable Rosa Elena Infante MD Unavailable Unavailable Rosa Elena Infante MD Unavailable Unavailable Rosa Elena Infante MD Unavailable Unavailable Rosa Elena Infante MD Unavailable Unavailable Rosa Elena Infante MD Unavailable Unavailable Rosa Elena Infante MD Unavailable Unavailable Rosa Elena Infante MD Unavailable Unavailable Rosa Elena Infante MD Unavailable Unavailable Rosa Elena Infante MD Unavailable Unavailable Rosa Elena Infante MD Unavailable Unavailable Rosa Elena Infante MD Unavailable Unavailable Rosa Elena Infante MD Unavailable Unavailable Rosa Elena Infante MD Unavailable Unavailable Rosa Elena Infante MD Unavailable Unavailable Rosa Elena Infante MD Unavailable Unavailable Rosa Elena Infante MD Unavailable Unavailable Rosa Elena Infante MD Unavailable Unavailable Rosa Elena Infante MD Unavailable Unavailable Rosa Elena Infante MD Unavailable Unavailable Rosa Elena Infante MD Unavailable Unavailable Rosa Elena Infante MD Unavailable Unavailable Rosa Elena Infante MD Unavailable Unavailable Rosa Elena Infante MD Unavailable Unavailable Rosa Elena Infante MD Unavailable Unavailable Rosa Elena Infante MD Unavailable Unavailable Rosa Elena Infante MD Unavailable Unavailable Rosa Elena Infante MD Unavailable Unavailable Rosa Elena Infante MD Unavailable Unavailable Rosa Elena Infante MD Unavailable Unavailable Rosa Elena Infante MD Unavailable Unavailable Rosa Elena Infante MD Unavailable Unavailable Rosa Elena Infante MD Unavailable Unavailable Rosa Elena Infante MD Unavailable Unavailable Rosa Elena Infante MD Unavailable Unavailable Rosa Elena Infante MD Unavailable Unavailable Rosa Elena Infante MD Unavailable Unavailable Rosa Elena Infante MD Unavailable Unavailable Rosa Elena Infante MD Unavailable Unavailable Rosa Elena Infante MD Unavailable Unavailable Rosa Elena Infante MD Unavailable Unavailable Rosa Elena Infante MD Unavailable Unavailable Rosa Elena Infante MD Unavailable Unavailable Rosa Elena Infante MD Unavailable Unavailable Rosa Elena Infante MD Unavailable Unavailable Rosa Elena Infante MD Unavailable Unavailable Rosa Elena Infante MD Unavailable Unavailable Rosa Elena Infante MD Unavailable Unavailable Rosa Elena Infante MD Unavailable Unavailable Rosa Elena Infante MD Unavailable Unavailable Rosa Elena Infante MD Unavailable Unavailable Debbi Amaro MD Unavailable Unavailable Debbi Amaro MD Unavailable Unavailable Debbi Amaro MD Unavailable Unavailable Debbi Amaro MD Unavailable Unavailable Debbi Amaro MD Unavailable Unavailable Debbi Amaro MD Unavailable Unavailable Debbi Amaro MD Unavailable Unavailable Debbi Amaro MD Unavailable Unavailable Debbi Amaro MD Unavailable Unavailable Debbi Amaro MD Unavailable Unavailable Ace BOOKER Unavailable Unavailable Hillary PADRON MD Unavailable Unavailable Hillary PADRON MD Unavailable Unavailable Hillary PADRON MD Unavailable Unavailable Hillary PADRON MD Unavailable Unavailable NEREIDA, A KYLE MD Unavailable Unavailable NEREIDA, A KYLE MD Unavailable Unavailable NEREIDA, A KYLE MD Unavailable Unavailable NEREIDA, A KYLE MD Unavailable Unavailable NEREIDA, A KYLE MD Unavailable Unavailable NEREIDA, A KYLE MD Unavailable Unavailable NEREIDA, A KYLE MD Unavailable Unavailable NEREIDA, A KYLE MD Unavailable Unavailable NEREIDA, A KYLE MD Unavailable Unavailable NEREIDA, A KYLE MD Unavailable Unavailable NEREIDA, A KYLE MD Unavailable Unavailable NEREIDA, A KYLE MD Unavailable Unavailable NEREIDA, A KYLE MD Unavailable Unavailable NEREIDA, A KYLE MD Unavailable Unavailable NEREIDA, A KYLE MD Unavailable Unavailable NEREIDA, A KYLE MD Unavailable Unavailable NEREIDA, A KYLE MD Unavailable Unavailable NEREIDA, A KYLE MD Unavailable Unavailable NEREIDA, A KYLE MD Unavailable Unavailable NEREIDA, A KYLE MD Unavailable Unavailable NEREIDA, A KYLE MD Unavailable Unavailable NEREIDA, A KYLE MD Unavailable Unavailable NEREIDA, A KYLE MD Unavailable Unavailable NEREIDA, A KYLE MD Unavailable Unavailable NEREIDA, A KYLE MD Unavailable Unavailable NEREIDA, A KYLE MD Unavailable Unavailable NEREIDA, A KYLE MD Unavailable Unavailable NEREIDA, A KYLE MD Unavailable Unavailable NEREIDA, A KYLE MD Unavailable Unavailable NEREIDA, A KYLE MD Unavailable Unavailable NEREIDA, A KYLE MD Unavailable Unavailable NEREIDA, A KYLE MD Unavailable Unavailable NEREIDA, A KYLE MD Unavailable Unavailable NEREIDA, A KYLE MD Unavailable Unavailable NEREIDA, A KYLE MD Unavailable Unavailable NEREIDA, A KYLE MD Unavailable Unavailable NEREIDA, A KYLE MD Unavailable Unavailable NEREIDA, A KYLE MD Unavailable Unavailable NEREIDA, A KYLE MD Unavailable Unavailable NEREIDA, A KYLE MD Unavailable Unavailable NEREIDA, A KYLE MD Unavailable Unavailable NEREIDA, A KYLE MD Unavailable Unavailable NEREIDA, A KYLE MD Unavailable Unavailable NEREIDA, A KYLE MD Unavailable Unavailable NEREIDA, A KYLE MD Unavailable Unavailable NEREIDA, A KYLE MD Unavailable Unavailable NEREIDA, A KYLE MD Unavailable Unavailable NEREIDA, A KYLE MD Unavailable Unavailable NEREIDA, A KYLE MD Unavailable Unavailable NEREIDA, A KYLE MD Unavailable Unavailable NEREIDA, A KYLE MD Unavailable Unavailable NEREIDA, A KYLE MD Unavailable Unavailable NEREIDA, A KYLE MD Unavailable Unavailable NEREIDA, A KYLE MD Unavailable Unavailable Re-disclosure Warning The records that you are about to access may contain information from federally-assisted alcohol or drug abuse programs. If such information is present, then the following federally mandated warning applies: This information has been disclosed to you from records protected by federal confidentiality rules (42 CFR part 2). The federal rules prohibit you from making any further disclosure of this information unless further disclosure is expressly permitted by the written consent of the person to whom it pertains or as otherwise permitted by 42 CFR part 2. A general authorization for the release of medical or other information is NOT sufficient for this purpose. The Federal rules restrict any use of the information to criminally investigate or prosecute any alcohol or drug abuse patient.The records that you are about to access may contain highly sensitive health information, the redisclosure of which is protected by Article 27-F of the [facility] Public Health law. If you continue you may have access to information: Regarding HIV / AIDS; Provided by facilities licensed or operated by the [facility] Office of Mental Health; or Provided by the [facility] Office for People With Developmental Disabilities. If such information is present, then the following [facility] mandated warning applies: This information has been disclosed to you from confidential records which are protected by state law. State law prohibits you from making any further disclosure of this information without the specific written consent of the person to whom it pertains, or as otherwise permitted by law. Any unauthorized further disclosure in violation of state law may result in a fine or intermediate sentence or both. A general authorization for the release of medical or other information is NOT sufficient authorization for further disc losure. Allergies and Adverse Reactions Type Description Substance Reaction Status Data Source(s ) Propensity to adverse reactions NO KNOWN ALLERGIES NO KNOWN ALLERGIES [facility] Family History Family Member Name Family Member Gender Family Member Status Date o f Status Description Data Source(s) Unknown Unknown Problem MED[facility] ([facility] Unknown Female Problem [facility] ([facility] Encounters Encounter Providers Location Date Indications Data Source(s ) Outpatient Attender: Georgi Greene MD 03/30/2021 12:00:[address] [facility] Outpatient Attender: RUSTAM CHRISTENSEN MD 03/01/2021 12:00:[address] [facility] Outpatient Attender: KYLE PADRON MDReferrer: Fabian Valladares dd, MD 02/15/2021 12:00:00 AM EDT follow up [facility] follow [place] [address] [facility] [address] 02/14/2021 12:00:00 AM EDT [facility] Outpatient Attender: GLORIA BEYER MD [id number] 12:00:00 AM [facility] [place] [address] [facility] [address] 02/03/2021 12:00:00 AM EDT [facility]CW1 [facility] [place] [address] [facility] [address] 02/02/2021 12:00:00 AM EDT [facility]CW[facility] Outpatient Attender: RUSTAM CHRISTENSEN MD [id number] 2020 12:00:00 AM EDT - 02/01/2021 04:35:04 PM EDT Malignant neoplasm of prostate [facility] Malignant neoplasm of prostate [place] [address] [facility] [address] 01/27/2021 12:00:00 AM EDT [facility] [place] [address] [facility] [address] 01/26/2021 12:00:00 AM EDT [facility]CW[facility] Outpatient Attender: KYLE PADRON MD 01/26/2021 12:00:00 AM [facility] Outpatient Attender: KYLE PADRON MD 01/25/2021 12:00:00 AM [facility] Outpatient 01/25/2021 12:00:00 AM [facility] Outpatient Attender: KYLE PADRON MD 01/25/2021 12:00:00 AM [facility] Outpatient 01/25/2021 12:00:00 AM [facility] Unknown [address] [facility] [address] 01/20/2021 12:00:00 AM EDT eCW1 ([facility]) Outpatient 01/20/2021 12:00:00 AM [facility] Outpatient Attender: KYLE PADRON MD 01/20/2021 12:00:00 AM [facility] Outpatient 01/19/2021 12:00:00 AM [facility] Outpatient Attender: Re McleanReferrer: Georgi Cuba A-RONCACTR 01/18/2021 12:00:00 AM EDT - 01/18/2021 04:02:51 PM EDT on [facility] on treat Outpatient 01/18/2021 12:00:00 AM [facility] Outpatient Attender: Re Mclean 01/18/2021 12:00:00 AM [facility] Outpatient Attender: RUSTAM CHRISTENSEN MD 01/18/2021 12:00:00 A M [facility] Inpatient Attender: Debbi Amaro MDReferrer: Debbi Amaro MD 01/13/2021 12:00:00 AM [facility] Inpatient Attender: Debbi Gutiérrez itter: Debbi Amaro MDReferrer: Debbi Amaro MD 01/12/2021 08:12:49 AM [facility] Outpatient Attender: KYLE PADRON MD 07A-RONCACTR 12/29 12:00:00 AM EDT - 01/12/2021 02:53:08 PM [facility] Inpatient Attender: Vin Rico nder: Debbi Amaro MDAdmitter: Vin TorresReferrer: Debbi Amaro MD 07A-10E 01/11/2021 12:00:00 AM EDT - 01/17/2021 06:39:00 PM [facility] Patient discharged. Outpatient Attender: RUSTAM CHRISTENSEN MDReferrer: CYNTHIA ORTIZ NP 07A-ONCCACTR 01/11/2021 12:00:00 AM EDT - 01/11/2021 02:44:31 PM [facility] Outpatient 01/11/2021 12:00:00 AM [facility] Outpatient Attender: KYLE PADRON MD 01/11/2021 12:00:00 AM [facility] Outpatient 01/11/2021 12:00:00 AM [facility] Outpatient Attender: KYLE PADRON MD 01/11/2021 12:00:00 AM [facility] Outpatient Attender: KYLE PADRON MDReferrer: Georgi hernandez MD 12/31/2020 12:00:00 AM [facility] Outpatient Attender: KYLE PADRON MDReferrer: Georgi hernandez MD 07A-RONCACTR 12/28/2020 12:00:00 AM EDT - 12/28/2020 04:41:31 PM [facility] Unknown [address] [address] 12/23/2020 12:00:00 AM EDT [facility] ([facility]) Outpatient Attender: Georgi Stapleserrer: Fabian Infante MD A-XXHAURO 12/22/2020 12:00:00 AM EDT - 12/22/2020 12:18:33 PM [facility] Outpatient 12/21/2020 12:00:00 AM [facility] Outpatient Attender: CHAYITO BOOKER 12/20/2020 12:00:00 AM [facility] Outpatient Referrer: CYNTHIA ORTIZ NP 12/14/2020 12: 17:10 PM EDT Lower abdominal pain, unspecified [facility] Lower abdominal pain, unspecified Outpatient Attender: CYNTHIA ORTIZ NP A-ONCCACTR 12/14 12:00:00 AM EDT - 12/14/2020 03:59:07 PM [facility] Outpatient Attender: CYNTHIA ORTIZ NP 12/14/2020 12:00:00 AM [facility] Outpatient Attender: Georgi Sibley: Fabian Infante MD 07A-XXHAURO 12/01/2020 12:00:00 AM EDT - 12/01/2020 03:42:02 PM [facility] Outpatient Attender: GLORIA BEYER MD [id number] 12:00:00 AM [facility] Outpatient Attender: RUSTAM CHRISTENSEN MD 07A-ONCCACTR 2020 12:00:00 AM EDT - 11/23/2020 03:46:02 PM [facility] Outpatient Referrer: RUSTAM CHRISTENSEN MD 11/22/2020 12:0 0:00 AM EDT Malignant neoplasm of prostate [facility] Malignant neoplasm of prostate Outpatient Attender: RUSTAM CHRISTENSEN MD 11/19/2020 12:00:00 A M [facility] Unknown [address] [facility] [facility] [address] 11/18/2020 12:00:00 AM EDT eCW1 ([facility] Unknown [address] [address] 11/17/2020 12:00:00 AM EDT [facility]CW1 [facility] Outpatient Attender: RUSTAM CHRISTENSEN MD 07A-ONCCACTR 2020 12:00:00 AM EDT - 11/16/2020 04:31:42 PM [facility] Outpatient Referrer: RUSTAM CHRISTENSEN MD 11/16/2020 12:0 0:00 AM EDT Malignant neoplasm of prostate [facility] Malignant neoplasm of prostate Outpatient Attender: RUSTAM CHRISTENSEN MD 11/16/2020 12:00:00 A M [facility] Outpatient Referrer: RUSTAM CHRISTENSEN MD 11/16/2020 12:00:00 A M [facility] Outpatient Attender: GLORIA BEYER MD 11/16/2020 12:00: 00 AM [facility] Outpatient Referrer: RUSTAM CHRISTENSEN MD 11/15/2020 12:00:00 A M [facility] Unknown [address] [facility] [facility] [address] 11/10/2020 12:00:00 AM EDT eCW1 ([facility]) [place] [address] [facility] [address] 11/08/2020 12:00:00 AM EDT eCW1 ([facility]) Unknown [address] [facility] [address] 11/05/2020 12:00:00 AM EDT eCW1 ([facility]) Outpatient Attender: KAMALA ARCHER MD 11/03/2020 12:00:00 AM [facility] Outpatient [address] [facility] [address] 10/20/2020 12:00:00 AM EDT [facility]CW1 [facility] Unknown [address] [facility] [address] 10/20/2020 12:00:00 AM EDT eCW1 ([facility]) Outpatient Attender: RUSTAM Mcdonough-ONCCACTR 2020 12:00:00 AM EDT - 10/19/2020 03:28:21 PM [facility] Unknown [address] [facility] [address] 10/19/2020 12:00:00 AM EDT eCW1 ([facility]) Unknown [address] [facility] [address] 10/19/2020 12:00:00 AM EDT eCW1 ([facility]) Unknown [address] [facility] [address] 10/11/2020 12:00:00 AM EDT eCW1 ([facility]) Outpatient Referrer: CYNHTIA ORTIZ NP 10/05 12:00:00 AM EDT - 10/05/2020 11:59:00 PM [facility] Outpatient Referrer: CYNTHIA ORTIZ NP 10/05/2020 12: 00:00 AM EDT Malignant neoplasm of prostate [facility] Malignant neoplasm of prostate Outpatient Referrer: CYNTHIA ORTIZ NP 09/16/2020 12:00:00 AM [facility] Outpatient Referrer: CYNTHIA ORTIZ NP 09/16/2020 12:00:00 AM [facility] Outpatient Referrer: CYNTHIA ORTIZ NP 09/02/2020 12:00:00 AM [facility] Outpatient Referrer: CYNTHIA ORTIZ NP 09/02/2020 12:00:00 AM [facility] Unknown [address] [facility] [facility] [address] 08/24/2020 12:00:00 AM EDT eCW1 ([facility]) Outpatient Attender: RUSTAM Mcdonough-ONCCACTR 2020 12:00:00 AM EDT - 08/20/2020 12:16:21 PM EDT Malignant neoplasm of prostate [facility] Malignant neoplasm of prostate Outpatient Attender: GLORIA Mcdonough-MLTCACTR 12:00:00 AM EDT - 08/17/2020 02:04:10 PM EDT Encounter for palliative [facility] Encounter for palliative care Unknown [address] [facility] [facility] [address] 08/13/2020 12:00:00 AM EDT eCW1 ([facility]) Outpatient Referrer: CYNTHIA ORTIZ NP 08/10/2020 12:00:00 AM [facility] Outpatient Referrer: CYNTHIA ORTIZ NP 08/10/2020 12:00:00 AM [facility] Outpatient Referrer: CYNTHIA ORTIZ NP 08/06/2020 12:00:00 AM [facility] Outpatient Referrer: CYNTHIA ORTIZ NP 08/06/2020 12:00:00 AM [facility] Outpatient [address] [facility] [facility] [address] 07/19/2020 12:00:00 AM EDT eCW1 ([facility]) Unknown [address] [facility] [address] 07/02/2020 12:00:00 AM EST eCW1 ([facility]) Outpatient Attender: GLORIA Mcdonough-MLTCACTR 12:00:00 AM EST - 06/02/2020 08:23:27 AM EST Encounter for [facility] Encounter for palliative care Outpatient Attender: GLORIA BEYER MD 06/01/2020 12:00: 00 AM [facility] Outpatient Attender: GLORIA BEYER MD 05/26/2020 12:00: 00 AM [facility] Outpatient Attender: RUSTAM Mcdonough-ONCCACTR 2020 12:00:00 AM EST - 05/21/2020 11:28:05 AM EST Malignant neoplasm of prostate [facility] Malignant neoplasm of prostate Outpatient Attender: RUSTAM CHRISTENSEN MD 05/21/2020 12:00:00 A M [facility] Unknown [address] [facility] [address] 05/18/2020 12:00:00 AM EST eCW1 ([facility]) Unknown [address] [facility] [address] 05/06/2020 12:00:00 AM EST eCW1 ([facility]) Unknown [address] [facility] [address] 04/26/2020 12:00:00 AM EST eCW1 ([facility]) Unknown [address] [facility] [facility] [place] [address] 04/15/2020 12:00:00 AM EST eCW1 ([facility]) Unknown [address] [facility] [place] [address] 04/09/2020 12:00:00 AM EST eCW1 ([facility]) Unknown [address] [facility] [place] [address] 03/24/2020 12:00:00 AM EST eCW1 ([facility]) Unknown [address] [facility] [place] [address] 03/10/2020 12:00:00 AM EST [facility]CW1 [facility] [place] [address] [facility] [place] [address] 03/09/2020 12:00:00 AM EST eCW1 ([facility]) Outpatient [address] [facility] [place] [address] 03/08/2020 12:00:00 AM EST eCW1 ([facility]) Outpatient Attender: GLORIA BEYER MD 07A-MLTCACTR 12:00:00 AM EDT - 02/25/2020 03:17:34 PM EDT Malignant neoplasm of prostate [facility] Malignant neoplasm of prostate Outpatient Attender: CYNTHIA ORTIZ NP 07A-ONCCACTR 02/18 12:00:00 AM EDT - 02/19/2020 03:53:47 PM EDT Malignant neoplasm of prostate [facility] Malignant neoplasm of prostate Unknown [address] [facility] [address] 02/11/2020 12:00:00 AM EDT eCW1 ([facility]) Outpatient Attender: CYNTHAI ORTIZ NPAttender: RUSTAM CHRISTENSEN MD 02/06/2020 12:00:00 AM [facility] Outpatient Attender: GLORIA BEYER MD 02/04/2020 12:00: 00 AM [facility] Medications Medication Brand Name Start Date Product Form Dose Route Admi nistrative Instructions Pharmacy Instructions Status Indications Reaction Description Data Source(s) 17 gram/dose 02/06/2021 12:00:00 AM EDT powder 238 MIX 17 GRAMS IN 4-8 OUNCES OF FLUID DAILY NEEDED FOR CONSTIPATION MIX 17 GRAMS IN 4-8 OUNCES OF FLUID DAILY NEEDED FOR CONSTIPATION SOLD: 02/09/2021 [facility] 200 unit/actuation 02/05/2021 12:00:00 AM EDT spray,non-aero tee 3 INSTILL 2 SPRAYS IN ONE NOSTRIL DAILY FOR 10 DAYS - ALTERNATE NOSTRILS INSTILL 2 SPRAYS IN ONE NOSTRIL DAILY FOR 10 DAYS - ALTERNATE NOSTRILS SOLD: 02/05/2021 [facility] 10 mEq 02/02/2021 12:00:00 AM EDT tablet,ER particles/cry stals 20 TAKE FOUR TABLETS BY MOUTH EVERY DAY FOR 5 DAYS TAKE FOUR TABLETS BY MOUTH EVERY DAY FOR 5 DAYS SOLD: 02/03/2021 [facility] 15 mg 01/21/2021 12:00:00 AM EDT tablet 180 TAKE ONE TABLET BY MOUTH EVERY 4 HOURS NEEDED FOR CANCER RELATED PAIN , MAXIMUM DAILY DOSE = 6 TABLETS TAKE ONE TABLET BY MOUTH EVERY 4 HOURS NEEDED FOR CANCER RELATED PAIN , MAXIMUM DAILY DOSE = 6 TABLETS SOLD: 01/21/2021 [facility] 1 mg 01/18/2021 12:00:00 AM EDT tablet 30 TAKE ONE TABLET BY MOUTH EVERY DAY TAKE ONE TABLET BY MOUTH EVERY DAY SOLD: 01/18/2021 [facility] 200 unit/actuation 01/18/2021 12:00:00 AM EDT spray,non-aero tee 3 SPRAY 1 SPRAY INTO NOSE DAILY FOR 7 DAYS SPRAY 1 SPRAY INTO NOSE DAILY FOR 7 DAYS SOLD: 01/18/2021 [facility] F[facility] Acid 1 MG Oral Tablet Folic Acid 1 MG Oral Table t (FOLVITE) Folic Acid 1 MG Oral Tablet (FOLVITE) 01/18/2021 12:00:00 AM EDT 1 mg Oral active Take 1 tablet by mouth daily [facility] 324 mg (38 mg iron) 01/18/2021 12:00:00 AM EDT tablet 15 TAKE ONE TABLET BY MOUTH EVERY OTHER DAY TAKE ONE TABLET BY MOUTH EVERY OTHER DAY SOLD: 01/18/2021 [facility] magnesium sulfate in dextrose 5 % infusion (premix) 1 g 0409 -6727-23 01/17/2021 06:00:00 AM EDT 1 g Intravenous completed 1 g, Intravenous, Administer over 60 Minutes, Once, On Sun01/17/21 at 0600, For [address] [facility] Medication administered onsite salmon calcitonin 200 UNT/ML Injectable Solution Calcitonin (Blossom) 200 UNIT/ML Injection Solution (MIACALCIN) Calcitonin (Blossom) 200 UNIT/ML Injectio n Solution (MIACALCIN) 01/17/2021 12:00:00 AM EDT 200 U Subcutaneous aborted Inject 1 mL into the skin daily for [address] [facility] salmon calcitonin 200 UNT/ML Injectable Solution Calcitonin (Blossom) 200 UNIT/ML Injection Solution (MIACALCIN) Calcitonin (Blossom) 200 UNIT/ML Injectio n Solution (MIACALCIN) 01/17/2021 12:00:00 AM EDT 200 U Subcutaneous aborted Inject 1 mL into the skin daily for [address] [facility] salmon calcitonin 200 UNT/ACTUAT Nasal S pray Calcitonin (Blossom) 200 UNIT/ACT Nasal Solution (MIACALCIN) Calcitonin (Blossom) 200 UNIT/ACT Nasal S olution (MIACALCIN) 01/17/2021 12:00:00 AM EDT 1 {spray} Nasal abo rted 1 spray by Nasal route daily for [address] [facility] salmon calcitonin 200 UNT/ACTUAT Nasal S pray Calcitonin (Blossom) 200 UNIT/ACT Nasal Solution (MIACALCIN) Calcitonin (Blossom) 200 UNIT/ACT Nasal S olution (MIACALCIN) 01/17/2021 12:00:00 AM EDT 1 {spray} Nasal act dunia 1 spray by Nasal route daily for [address] [facility] ferrous gluconate 324 MG Oral Tablet Leobardo martin Gluconate 324 (38 Fe) MG Oral Tablet (FERGON) Ferrous Gluconate 324 (38 Fe) MG Oral Tablet (FERGON) 01/17/2021 12:00:00 AM EDT 324 mg Oral active Take 1 tablet by mouth every other day [facility] Oxycodone Hydrochloride 15 MG Oral Table t oxyCODONE (ROXICODONE) immediate release tablet 15 mg oxyCODONE (ROXICODONE) immediate release tablet 15 mg 01/16/2021 07:57:10 AM EDT 15 mg Oral active Chron ic Pain 15 mg, Oral, Every 4 hours PRN, Moderate Pain (Pain Scale Score 4-6), Starting on 01/16/21 at 0757, For [address] [facility] Chronic Pain Medication administered onsite NaCl infusion 0.9 % 3452-9161-49 01/16/2021 07:30:00 AM EDT Intravenous completed at 150 mL/hr, Intrav enous, Continuous, Starting on 01/16/21 at 0730, For [address] [facility] Medication administered onsite salmon calcitonin 200 UNT/ML Injectable Solution calcitonin (MIACALCIN) injection 200 Units calcitonin (MIACALCIN) injection 200 Units 01/15/2021 04:30:00 PM EDT 200 U Subcutaneous completed 200 Units, Subcutaneous, Once, On 01/15/21 at 1630, For [address] [facility] Medication administered onsite potassium chloride (K-DUR) dissolvable tablet 40 mEq 45200-4 99-01 01/15/2021 09:00:00 AM EDT 40 meq Oral completed 40 mEq, Oral, 2 Times Daily, First dose (after last reorder) on 01/15/21 at 0900, For 3 doses
May be dissolved in water for patients with a G-Tube or unable to swallow. If concern for clogging G-Tube, may contact Pharmacy to switch formulation to a powder packet.
[facility] Medication administered onsite 50 ML Magnesium Sulfate 40 MG/ML Injecti on magnesium sulfate infusion 2 g/50 mL (premix) magnesium sulfate infusion 2 g/50 mL (premix) 01/16/20 07:30:00 AM EDT 2 g Intravenous completed 2 g, Intravenous, Administer over 60 Minutes, Once, On 01/15/21 at 0730, For [address] [facility] Medication administered onsite chlorhexidine gluconate 1.2 MG/ML Mouthw jacqueline chlorhexidine (PERIDEX) 0.12 % solution 15 mL chlorhexidine (PERIDEX) 0.12 % solution 15 mL 01/15/20 09:00:00 PM EDT 15 mL Mouth/Throat active 15 mL, Mouth/Throat, 2 Times Daily, First dose on Sun01/14/21 at 2100, For 30 days
Do not swallow.
[facility] Medication administered onsite Baclofen 10 MG Oral Tablet baclofen (LIORESAL) tablet 10 mg baclofen (LIORESAL) tablet 10 mg 01/14/2021 05:00:00 PM EDT 10 mg Oral activ e 10 mg, Oral, Three Times Daily Standard, First dose on Sun01/14/21 at 1700, For [address] [facility] Medication administered onsite salmon calcitonin 200 UNT/ML Injectable Solution calcitonin (MIACALCIN) injection 200 Units calcitonin (MIACALCIN) injection 200 Units 01/14/2021 04:30:00 PM EDT 200 U Subcutaneous completed 200 Units, Subcutaneous, Once, On Sun01/14/21 at 1630, For [address] [facility] Medication administered onsite Oxycodone Hydrochloride 15 MG Oral Table t oxyCODONE (ROXICODONE) immediate release tablet 15 mg oxyCODONE (ROXICODONE) immediate release tablet 15 mg 01/14/2021 11:43:06 AM EDT 15 mg Oral active Chron ic Pain 15 mg, Oral, Every 4 hours PRN, Moderate Pain (Pain Scale Score 4-6), Starting on Sun01/14/21 at 1143, For [address] [facility] Chronic Pain Medication administered onsite Aspirin 81 MG Chewable Tablet aspirin chewable tablet 81 mg aspirin chewable tablet 81 mg 01/14/2021 09:00:00 AM EDT 81 mg Oral activ e 81 mg, Oral, Daily Standard, First dose (after last reorder) on Sun01/14/21 at 0900, For [address] [facility] Medication administered onsite potassium chloride (K-DUR) dissolvable tablet 40 mEq 05036-9 99-01 01/14/2021 07:30:00 AM EDT 40 meq Oral completed 40 mEq, Oral, Once, On Sun01/14/21 at 0730, For 1 dose
May be dissolved in water for patients with a G- Tube or unable to swallow. If concern for clogging G-Tube, may contact Pharmacy to switch formulation to a powder packet.
[facility] Medication administered onsite NaCl infusion 0.9 % 2972-3437-94 01/14/2021 07:30:00 AM EDT Intravenous aborted at 150 mL/hr, Intrav enous, Continuous, Starting on Sun01/14/21 at 0730, For [address] [facility] Medication administered onsite alteplase (CATHFLO) injection 2 mg 99251 01/14/2021 12:00:00 AM EDT 2 mg Intracatheter completed 2 mg, Intra catheter, Once, On Sun01/14/21 at 0000, For 1 dose
To be instilled by PICC team or IR nurse only for at least [address]
[facility] Medication administered onsite potassium phosphate infusion 6 mmol/100 mL (premix) 01/13/2021 02:15:00 PM EDT 6 mmol Intravenous completed 6 mmol, Intravenous, at 25 mL/hr, Once, On Neha 01/13/21 at 1415, For 1 dose
Slower infusion rates (e.g. over 4 hours) are recommended in patients with renal impairment and/or less severe hypophosphatemia. Product contains 8.8 mEq of potassium.
[facility] Medication administered onsite 50 ML Magnesium Sulfate 40 MG/ML Injecti on magnesium sulfate infusion 2 g/50 mL (premix) magnesium sulfate infusion 2 g/50 mL (premix) 01/14/20 02:15:00 PM EDT 2 g Intravenous completed 2 g, Intravenous, Administer over 60 Minutes, Once, On Neha 01/13/21 at 1415, For [address] [facility] Medication administered onsite 2 ML Midazolam 1 MG/ML Injection midazolam (PF) (VERSE D) injection midazolam (PF) (VERSED) injection 01/13/2021 02:10:15 PM EDT completed Once PRN, Starting on Neha 01/13/[address] [facility] Medication administered onsite fentaNYL (SUBLIMAZE) (PF) injection 0902-9702-07 01/13/2021 02:10:01 PM EDT completed Once PRN, Starting on Neha 01/13/[address] [facility] Medication administered onsite sodium bicarbonate 8.4 % 8 mL in lidocaine (XYLOCAINE) 2 % 2 mL injection 01/13/2021 02:08:44 PM EDT completed Once PRN, Starting on Neha 01/13/[address] [facility] Medication administered onsite Folic Acid 1 MG Oral Tablet folic acid (FOLVITE) table t 1 mg folic acid (FOLVITE) tablet 1 mg 01/13/2021 01:45:00 PM EDT 1 mg Oral active 1 mg, Oral, Daily Standard, First dose on Neha 01/13/21 at 1345, For [address] [facility] Medication administered onsite Piperacillin 3000 MG / tazobactam 375 MG Injection piperacillin-tazobactam (ZOSYN) IVPB 3.375 g (premix) piperacillin-tazobactam (ZOSYN) IVPB 3.3 75 g (premix) 01/13/2021 10:00:00 AM EDT 3.375 g Intravenous act dunia 3.375 g, Intravenous, Administer over 4 Hours, Every 8 hours, First dose (after last modification) on Neha 01/13/21 at 1000, For 7 days
This specific formulation of piperacillin-tazobactam is compatible with Lactated Ringers.
[facility] Medication administered onsite potassium chloride (K-DUR) dissolvable tablet 40 mEq 94004-4 99-01 01/13/2021 07:45:00 AM EDT 40 meq Oral completed 40 mEq, Oral, Once, On Neha 01/13/21 at 0745, For 1 dose
May be dissolved in water for patients with a G- Tube or unable to swallow. If concern for clogging G-Tube, may contact Pharmacy to switch formulation to a powder packet.
[facility] Medication administered onsite NaCl infusion 0.9 % 5238-6857-01 01/13/2021 07:45:00 AM EDT Intravenous aborted at 150 mL/hr, Intrav enous, Continuous, Starting on Neha 01/13/21 at 0745, For [address] [facility] Medication administered onsite Oxycodone Hydrochloride 15 MG Oral Table t oxyCODONE (ROXICODONE) immediate release tablet 7.5 mg oxyCODONE (ROXICODONE) immediate release tablet 7.5 mg 01/13/2021 07:33:32 AM EDT 7.5 mg Oral aborted Chron ic Pain 7.5 mg, Oral, Every 4 hours PRN, Moderate Pain (Pain Scale Score 4-6), Starting on Sun01/13/21 at 0733, For [address] [facility] Chronic Pain Medication administered onsite potassium chloride 20 mEq in 100 mL IVPB (premix) 2724-1723- 48 01/13/2021 03:00:00 AM EDT 20 meq Intravenous completed 20 mEq, Intravenous, Administer over 60 Minutes, Every 1 hour, First dose on Sun01/13/21 at 0300, For [address] [facility] Medication administered onsite salmon calcitonin 200 UNT/ML Injectable Solution calcitonin (MIACALCIN) injection 200 Units calcitonin (MIACALCIN) injection 200 Units 01/12/2021 06:45:00 PM EDT 200 U Intramuscular completed 200 Units, Intramuscular, Once, On Sun01/12/21 at 1845, For [address] [facility] Medication administered onsite NaCl infusion 0.9 % 0237-1010-99 01/12/2021 02:15:00 PM EDT Intravenous aborted at 150 mL/hr, Intrav enous, Continuous, Starting on Sun01/12/21 at 1415, For [address] [facility] Medication administered onsite NaCl infusion 0.9 % 7341-9126-99 01/12/2021 09:15:00 AM EDT Intravenous aborted at 150 mL/hr, Intrav enous, Continuous, Starting on Sun01/12/21 at 0915, For [address] [facility] Medication administered onsite Aspirin 81 MG Chewable Tablet aspirin chewable tablet 81 mg aspirin chewable tablet 81 mg 01/12/2021 09:00:00 AM EDT 81 mg Oral abort ed 81 mg, Oral, Daily Standard, First dose on Sun01/12/21 at 0900, For [address] [facility] Medication administered onsite POLYETHYLENE GLYCOL 3350 142 MG/ML Oral Solution polyethylene glycol (MIRALAX) packet 17 g polyethylene glycol (MIRALAX) packet 17 g 01/12/2021 0 9:00:00 AM EDT 17 g Oral active 17 g, Or al, Daily Standard, First dose on Sun01/12/21 at 0900, For 30 days
Mix in 8 ounces of water, juice or milk. Avoid use in patients who require thickened liquids due to potential increased risk for aspiration.
[facility] Medication administered onsite Tamsulosin hydrochloride 0.4 MG Oral Capsule tamsulosi n (FLOMAX) capsule 0.4 mg tamsulosin (FLOMAX) capsule 0.4 mg 01/12/2021 09:00:00 AM EDT 0.4 mg Oral active 0.4 mg, Oral, Daily Standard, First dose on Sun01/12/21 at 0900, For 30 days
Swallow whole. Do not crush, chew or open.
[facility] Medication administered onsite salmon calcitonin 200 UNT/ML Injectable Solution calcitonin (MIACALCIN) injection 200 Units calcitonin (MIACALCIN) injection 200 Units 01/12/2021 08:00:00 AM EDT 200 U Intramuscular completed 200 Units, Intramuscular, Once, On Sun01/12/21 at 0800, For [address] [facility] Medication administered onsite potassium phosphate infusion 6 mmol/100 mL (premix) 01/12/2021 03:15:00 AM EDT 6 mmol Intravenous completed 6 mmol, Intravenous, at 25 mL/hr, Once, On Sun01/12/21 at 0315, For 1 dose
Slower infusion rates (e.g. over 4 hours) are recommended in patients with renal impairment and/or less severe hypophosphatemia. Product contains 8.8 mEq of potassium.
[facility] Medication administered onsite potassium chloride 20 mEq in 100 mL IVPB (premix) 7147-2434- 48 01/11/2021 09:00:00 PM EDT 20 meq Intravenous completed 20 mEq, Intravenous, Administer over 60 Minutes, Every 1 hour, First dose on Sun01/11/21 at 2100, For 2 doses [facility] Medication administered onsite Docusate Sodium 100 MG Oral Capsule docusate sodium (C OLACE) capsule 100 mg docusate sodium (COLACE) capsule 100 mg 01/11/2021 09:00:00 PM EDT 100 mg Oral active 100 mg, Oral, 2 Times Daily, First dose on Sun01/11/21 at 2100, For [address] [facility] Medication administered onsite gabapentin 300 MG Oral Capsule gabapentin (NEURONTIN) capsule 300 mg gabapentin (NEURONTIN) capsule 300 mg 01/11/2021 09:00:00 PM EDT 300 mg Oral active Neuropathic Pain 300 mg, Oral, Nightly, Indic ations: Neuropathic Pain, First dose (after last modification) on Sun01/11/21 at 2100, For [address] [facility] Neuropathic Pain Medication administered onsite Oxycodone Hydrochloride 15 MG Oral Table t oxyCODONE (ROXICODONE) immediate release tablet 7.5 mg oxyCODONE (ROXICODONE) immediate release tablet 7.5 mg 01/11/2021 07:44:33 PM EDT 7.5 mg Oral aborted Chron ic Pain 7.5 mg, Oral, Every 4 hours PRN, Moderate Pain (Pain Scale Score 4-6), Starting on Sun01/11/21 at 1944, For [address] [facility] Chronic Pain Medication administered onsite Piperacillin 3000 MG / tazobactam 375 MG Injection piperacillin-tazobactam (ZOSYN) IVPB 3.375 g (premix) piperacillin-tazobactam (ZOSYN) IVPB 3.3 75 g (premix) 01/11/2021 06:00:00 PM EDT 3.375 g Intravenous abo rted 3.375 g, Intravenous, Administer over 4 Hours, Every 8 hours, First dose on Sun01/11/21 at 1800, For 3 days
This specific formulation of piperacillin- tazobactam is compatible with Lactated Ringers.
[facility] Medication administered onsite NaCl infusion 0.9 % 6940-6661-99 01/11/2021 05:30:00 PM EDT Intravenous completed at 150 mL/hr, Intrav enous, Continuous, Starting on Sun01/11/21 at 1730, For [address] [facility] Medication administered onsite Acetaminophen 325 MG Oral Tablet acetaminophen (TYLENO L) tablet 650 mg acetaminophen (TYLENOL) tablet 650 mg 01/11/2021 05:17:54 PM EDT 65 0 mg Oral active 650 mg, Oral, E very 4 hours PRN, Mild Pain (Pain Scale Score 1- 3), Starting on Sun01/11/21 at 1717, For 30 days
Maximum daily dose of acetaminophen is 3,000 mg from all sources in [address]
[facility] Medication administered onsite Carisoprodol 350 MG Oral Tablet carisoprodol (SOMA) ta blet 350 mg carisoprodol (SOMA) tablet 350 mg 01/11/2021 05:17:53 PM EDT 350 mg Oral active 350 mg, Oral, Three Times Daily-PRN, muscle spasms, Starting on Sun01/11/21 at 1717, For [address] [facility] Medication administered onsite Ondansetron 8 MG Oral Tablet ondansetron (ZOFRAN) tabl et 8 mg ondansetron (ZOFRAN) tablet 8 mg 01/11/2021 05:17:53 PM EDT 8 mg Oral active 8 mg, Oral, Every 8 hours PRN, Nausea, Vomiting, Starting on Sun01/11/21 at 1717, For [address] [facility] Medication administered onsite NaCl infusion 0.9 % 5275-3744-62 01/11/2021 02:30:00 PM EDT Intravenous completed Hypercalcemia at 125 mL/hr, Intrav enous, Once, On Sun01/11/21 at 1430, For [address] [facility] Hypercalcemia Medication administered onsite Piperacillin 3000 MG / tazobactam 375 MG Injection piperacillin-tazobactam (ZOSYN) IVPB 3.375 g (premix) piperacillin-tazobactam (ZOSYN) IVPB 3.3 75 g (premix) 01/11/2021 02:15:00 PM EDT 3.375 g Intravenous completed Acute cystitis with hematuria 3.375 g, Intravenous, Admini ster over 30 Minutes, Once, On Sun01/11/21 at 1415, For 1 dose
This specific formulation of piperacillin-tazobactam is compatible with Lactated Ringers.
[facility] Acute cystitis with hematuria Medication administered onsite salmon calcitonin 200 UNT/ML Injectable Solution calcitonin (MIACALCIN) injection 288 Units calcitonin (MIACALCIN) injection 288 Units 01/11/2021 02:15:00 PM EDT 288 U Subcutaneous completed Hypercalc emia 288 Units, Subcutaneous, Once, On Sun01/11/21 at 1430, For [address] [facility] Hypercalcemia Medication administered onsite sodium chloride 0.9 % bolus 1,000 mL [id number] 01/11/2021 12:45: 00 PM EDT 1000 mL Intravenous completed Hypercalcemia 1,00 0 mL, Intravenous, Once, On Sun01/11/21 at 1245, For [address] [facility] Hypercalcemia Medication administered onsite alteplase (CATHFLO) injection 2 mg [id number] 01/11/2021 11:00:00 AM EDT 2 mg Intracatheter completed Malignant tumor of prostate 2 mg, Intracatheter, Once, On Sun01/11/21 at 1100, For 1 dose
To be instilled by PICC team or IR nurse only for at least [address]
[facility] Malignant tumor of prostate Medication administered onsite lidocaine (XYLOCAINE) 2 % urojet 20 mL [id number] 12:00:00 PM EDT [address] [facility] Potassium Chloride 0.1 MEQ/ML Injectable Solution potassium chloride 10 mEq in 100 mL IVPB (premix) potassium chloride 10 mEq in 100 mL IVPB (premix) 12/14/2020 02:00:00 PM EDT 10 meq Intravenous completed Hypokalemia 10 mEq, Intravenous, Administer over 60 Minutes, Once, On Sun12/14/20 at 1400, For [address] [facility] Hypokalemia Medication administered onsite sodium chloride 0.9 % bolus 1,000 mL [id number] 12/14/2020 01:45: 00 PM EDT 1000 mL Intravenous completed Dehydration 1,000 mL, Intravenous, Once, On Sun12/14/20 at 1345, For 1 dose
Infuse over [address]
[facility] Dehydration Medication administered onsite sennosides, MCFP 8.6 MG Oral Tablet senna tablet 2 tablet sen na tablet 2 tablet 12/14/2020 01:30:00 PM EDT 2 {tbl} Oral com pleted Drug-induced constipation 2 tablet, Oral, Once, On Sun12/14/20 at 1330, For [address] [facility] Drug-induced constipation Medication administered onsite 8.6 mg 12/14/2020 12:00:00 AM EDT tablet 30 TAKE ONE TABLET BY MOUTH ONCE DAILY TAKE ONE TABLET BY MOUTH ONCE DAILY SOLD: 12/14/2020 [facility] sennosides, MCFP 8.6 MG Oral Tablet SM Senna Laxative 8 .6 MG Oral Tablet SM Senna Laxative 8.6 MG Oral Tablet 12/14/2020 12:00:00 AM EDT 1 {tbl} Oral active Take 1 tablet by mouth daily [facility] 17 gram/dose 12/14/2020 12:00:00 AM EDT powder 510 MIX 17 GRAMS IN 4-8 OUNCES OF LIQUID AND DRINK ONCE DAILY MIX 17 GRAMS IN 4-8 OUNCES OF LIQUID AND DRINK ONCE DAILY SOLD: 12/14/2020 [facility] POLYETHYLENE GLYCOL 3350 142 MG/ML Oral Solution PEG 3350 17 GM/SCOOP Oral Powder (MIRALAX) PEG 3350 17 GM/SCOOP Oral Powder (MIRALAX) 12/14/2020 12:00:00 AM EDT 17 g Oral active Drug-induced constipatio n Take 17 g by mouth daily [facility] Drug-induced constipation Docusate Sodium 50 MG / sennosides, MCFP 8.6 MG Oral Tablet Senna-Docusate Sodium 8.6-50 MG Oral Tablet (SENOKOT-S) Senna-Docusate Sodium 8.6-50 MG Oral Tab let (SENOKOT-S) 12/14/2020 12:00:00 AM EDT 1 {tbl} Oral a ctive Drug-induced constipation Take 1 tablet by mouth daily [facility] Drug-induced constipation 10 gram/15 mL 12/14/2020 12:00:00 AM EDT solution 240 TAKE 30MLS BY MOUTH THREE TIMES A DAY FOR 3 DAYS TAKE 30MLS BY MOUTH THREE TIMES A DAY FOR 3 DAYS SOLD: 12/14/2020 [facility] Lactulose 667 MG/ML Oral Solution Lactul ose 10 GM/15ML Oral Solution (CHRONULAC) Lactulose 10 GM/15ML Oral Solution (CHRONULAC) 12/14/2020 12:00: 00 AM EDT 20 g Oral active Drug-induced constipation Take 30 mLs by mouth Three times daily for [address] [facility] Drug-induced constipation 15 mg 12/11/2020 12:00:00 AM EDT tablet 180 TAKE ONE TABLET BY MOUTH EVERY 4 HOURS NEEDED FOR CANCER RELATED PAIN MAXIMUM DAILY DOSE = 6 TAKE ONE TABLET BY MOUTH EVERY 4 HOURS NEEDED FOR CANCER RELATED PAIN MAXIMUM DAILY DOSE = 6 SOLD: 12/12/2020 [facility] Oxycodone Hydrochloride 15 MG Oral Table t oxyCODONE HCl 15 MG Oral Tablet (ROXICODONE) oxyCODONE HCl 15 MG Oral Tablet (ROXICODONE) 12:00:00 AM EDT 15 mg Oral aborted Chronic Pain Peter e 1 tablet by mouth every 4 (four) hours as needed for PainCancer related pain, Max Daily Dose: 90 mg Indications: Chronic Pain [facility] Chronic Pain Self-Cath Coude Tip 62094-609-31 11/29/2020 12:00:00 AM EDT active Use as directed. DAILY [facility] 1.5 ML Leuprolide Acetate 15 MG/ML Prefi lled Syringe leuprolide acetate (LUPRON) injection 22.5 mg leuprolide acetate (LUPRON) injection 22.5 mg 11/24/19 11:30:00 AM EDT 22.5 mg Intramuscular completed 22.5 mg, Intramuscular, Once, On Sun11/23/20 at 1130, For 1 dose
FOR IM USE ONLY
[facility] Medication administered onsite Cabazitaxel (JEVTANA) 51 mg in sodium chloride 0.9 % 250 mL chemo infusion 11/23/2020 11:00:00 AM EDT 25 mg/m2 Intravenous c ompleted Prostate cancer metastatic to bone 51 mg (rounded from 51.25 mg = 25 mg/m2 2.05 m2 Treatment Plan Recorded BSA), Intravenous, Administer over 60 Minutes, Once, On Sun11/23/20 at 1100, For 1 dose
Use within 8 hrs of preparation including infusion time. Administer through a 0.22 [address] filter[address]
[facility] Prostate cancer metastatic to bone Medication administered onsite Diphenhydramine Hydrochloride 25 MG Oral Capsule diphenhydrAMINE (BENADRYL) capsule 25 mg diphenhydrAMINE (BENADRYL) capsule 25 mg 11/23/2020 10 :30:00 AM EDT 25 mg Oral completed Prostate cancer metast atic to bone 25 mg, Oral, Once, On Sun11/23/20 at 1030, For 1 dose
Give prior to chemotherapy.
[facility] Prostate cancer metastatic to bone Medication administered onsite Famotidine 20 MG Oral Tablet famotidine (PEPCID) table t 20 mg famotidine (PEPCID) tablet 20 mg 11/23/2020 10:30:00 AM EDT 20 mg Oral completed Prostate cancer metastatic to bone 20 mg, Oral, Once, On Sun11/23/20 at 1030, For [address] [facility] Prostate cancer metastatic to bone Medication administered onsite Ondansetron 8 MG Oral Tablet ondansetron (ZOFRAN) tabl et 16 mg ondansetron (ZOFRAN) tablet 16 mg 11/23/2020 10:30:00 AM EDT 16 mg Oral completed Prostate cancer metastatic to bone 16 mg, Oral, Once, On Sun11/23/20 at 1030, For 1 dose
Give prior to chemotherapy
[facility] Prostate cancer metastatic to bone Medication administered onsite Dexamethasone 4 MG Oral Tablet dexamethasone (DECADRON ) tablet 20 mg dexamethasone (DECADRON) tablet 20 mg 11/23/2020 10:30:00 AM EDT 20 m g Oral completed Prostate cancer metastatic to bone 20 mg, Oral, Once, On Sun11/23/20 at 1030, For 1 dose
Give prior to chemotherapy.
[facility] Prostate cancer metastatic to bone Medication administered onsite 10 mg 11/23/2020 12:00:00 AM EDT tablet 30 TAKE ONE TABLET BY MOUTH EVERY 6 HOURS NEEDED FOR NAUSEA / VOMITING TAKE ONE TABLET BY MOUTH EVERY 6 HOURS A S NEEDED FOR NAUSEA / VOMITING SOLD: 11/25/2020 [facility] Ondansetron 8 MG Oral Tablet Ondansetron HCl 8 MG Oral Tablet (ZOFRAN) Ondansetron HCl 8 MG Oral Tablet (ZOFRAN) 11/23/2020 12:00:00 AM EDT 8 mg Oral active Prostate cancer metastatic to bone Take 1 tablet by mouth every 8 (eight) hours as needed for Nausea or Vomiting [facility] Prostate cancer metastatic to bone Prednisone 10 MG Oral Tablet predniSONE 10 MG Oral Tab let (DELTASONE) predniSONE 10 MG Oral Tablet (DELTASONE) 11/23/2020 12:00:00 AM EDT 10 mg Ora l completed Prostate cancer metastatic to bone Take 1 tablet by mouth daily [facility] Prostate cancer metastatic to bone Prochlorperazine 10 MG Oral Tablet Proch lorperazine Maleate 10 MG Oral Tablet (COMPAZINE) Prochlorperazine Maleate 10 MG Oral Tablet (COMPAZINE) 11/23/2020 12:00:00 AM EDT 10 mg Oral active Prostate cancer metastatic to bone Take 1 tablet by mouth every 6 (six) hours as needed (Nausea/Vomiting) [facility] Prostate cancer metastatic to bone 10 mg 11/23/2020 12:00:00 AM EDT tablet 21 TAKE ONE TABLET BY MOUTH EVERY DAY TAKE ONE TABLET BY MOUTH EVERY DAY SOLD: 11/25/2020 [facility] 8 mg 11/23/2020 12:00:00 AM EDT tablet 20 TAKE ONE TABLET BY MOUTH EVERY 8 HOURS NEEDED FOR NAUSEA OR VOMITING TAKE ONE TABLET BY MOUTH EVERY 8 HOURS A S NEEDED FOR NAUSEA OR VOMITING SOLD: 11/25/2020 [facility] gadobutrol (GADAVIST) contrast injection 9.5 mL [id number] 11/22/2020 05:00:00 PM EDT 0.1 mL/kg Intravenous completed 9.5 mL (rounded from 9.71 mL = 0.1 mL/kg 97.1 kg), Intravenous, 1 TIME IMAGING, On Sun11/22/20 at 1700, For 1 dose, Imaging Protocol
Do not mix or administer in the same IV line with other me dications.
[facility] Medication administered onsite 15 mg 11/17/2020 12:00:00 AM EDT tablet extended release 60 TAKE ONE TABLET BY MOUTH TWICE A DAY MAXIMUM DAILY DOSE = TWO TABLETS TAKE ONE TABLET BY MOUTH TWICE A DAY MAXIMUM DAILY DOSE = TWO TABLETS SOLD: 11/17/2020 [facility] Morphine Sulfate 15 MG Extended Release Oral Tablet Morphine Sulfate ER 15 MG Oral Tablet Extended Release (MS CONTIN) Morphine Sulfate ER 15 MG Oral Tablet Extended Release (MS CONTIN) 11/16/2020 12:00:00 AM EDT 15 mg Oral active Cancer associated painProstate cancer metastatic to bone Take 1 tablet by mouth Two Times Daily , Max Daily Dose: [address] [facility] Cancer associated pain Prostate cancer metastatic to bone Ondansetron 4 MG Disintegrating Oral Tablet ONDANSETRON 11/11/2020 12:00:00 AM EDT tablet,disintegrating 30 DISSOLVE O NE TABLET ON TONGUE EVERY 4 HOURS NEEDED FOR NAUSEA DISSOLVE ONE TABLET ON TONGUE EVERY 4 HO URS NEEDED FOR NAUSEA SOLD: 11/12/2020 [facility] Oxycodone Hydrochloride 15 MG Oral Table t oxyCODONE HCl 15 MG Oral Tablet (ROXICODONE) oxyCODONE HCl 15 MG Oral Tablet (ROXICODONE) 12:00:00 AM EDT 15 mg Oral aborted Chronic Pain Peter e 1 tablet by mouth every 4 (four) hours as needed for PainCancer related pain, Max Daily Dose: 90 mg Indications: Chronic Pain [facility] Chronic Pain 15 mg 11/11/2020 12:00:00 AM EDT tablet 180 TAKE ONE TABLET BY MOUTH EVERY 4 HOURS NEEDED FOR CANCER RELATED PAIN , MAXIMUM DAILY DOSE = 6 TABLETS TAKE ONE TABLET BY MOUTH EVERY 4 HOURS NEEDED FOR CANCER RELATED PAIN , MAXIMUM DAILY DOSE = 6 TABLETS SOLD: 11/12/2020 [facility] 500 mg 11/09/2020 12:00:00 AM EDT tablet 14 TAKE ONE TABLET BY MOUTH TWICE A DAY TAKE ONE TABLET BY MOUTH TWICE A DAY SOLD: 11/09/2020 [facility] Ciprofloxacin 500 MG Oral Tablet [Cipro] Cipro 500 MG Cipro 500 MG 11/08/2020 12:00:00 AM EDT 1.0 {tablet} active Ci pro 500 MG eCW1 ([facility]) 0.05 % 10/24/2020 12:00:00 AM EDT ointment 30 APPLY TO AFFECTED AREA(S) TWO TIMES A DAY IF RASH RECURS ON BODY, DO NOT APPLY TO FACE, GROIN, OR ARMPITS APPLY TO AFFECTED AREA(S) TWO TIMES A DAY IF RASH RECURS ON BODY, DO NOT APPLY TO FACE, GROIN, OR ARMPITS SOLD: 11/17/2020 [facility] 0.05 % 10/24/2020 12:00:00 AM EDT ointment 30 APPLY TO AFFECTED AREA(S) TWO TIMES A DAY IF RASH RECURS ON BODY, DO NOT APPLY TO FACE, GROIN, OR ARMPITS APPLY TO AFFECTED AREA(S) TWO TIMES A DAY IF RASH RECURS ON BODY, DO NOT APPLY TO FACE, GROIN, OR ARMPITS SOLD: 10/29/2020 [facility] 350 mg 10/21/2020 12:00:00 AM EDT tablet 90 TAKE ONE TABLET BY MOUTH THREE TIMES A DAY NEEDED, MAXIMUM DAILY DOSE = THREE TABLETS TAKE ONE TABLET BY MOUTH THREE TIMES A DAY NEEDED, MAXIMUM DAILY DOSE = THREE TABLETS SOLD: 10/29/2020 [facility] 350 mg 10/21/2020 12:00:00 AM EDT tablet 90 TAKE ONE TABLET BY MOUTH THREE TIMES A DAY NEEDED, MAXIMUM DAILY DOSE = THREE TABLETS TAKE ONE TABLET BY MOUTH THREE TIMES A DAY NEEDED, MAXIMUM DAILY DOSE = THREE TABLETS SOLD: 01/27/2021 [facility] Ciprofloxacin 500 MG Oral Tablet [Cipro] Cipro 500 MG Cipro 500 MG 10/20/2020 12:00:00 AM EDT 1.0 {tablet} active Ci pro 500 MG eCW1 ([facility]) Ciprofloxacin 500 MG Oral Tablet [Cipro] Cipro 500 MG Cipro 500 MG 10/20/2020 12:00:00 AM EDT 1.0 {tablet} active Ci pro 500 MG eCW1 ([facility]) Ciprofloxacin 500 MG Oral Tablet [Cipro] Cipro 500 MG Cipro 500 MG 10/20/2020 12:00:00 AM EDT 1.0 {tablet} active Ci pro 500 MG eCW1 ([facility]) 500 mg 10/20/2020 12:00:00 AM EDT tablet 14 TAKE ONE TABLET BY MOUTH EVERY 12 HOURS FOR 7 DAYS TAKE ONE TABLET BY MOUTH EVERY 12 HOURS FOR 7 DAYS TEE [facility] Ciprofloxacin 500 MG Oral Tablet [Cipro] Cipro 500 MG Cipro 500 MG 10/20/2020 12:00:00 AM EDT 1.0 {tablet} active Ci pro 500 MG eCW1 ([facility]) 300 mg 10/13/2020 12:00:00 AM EDT capsule 60 TAKE ONE CAPSULE BY MOUTH AT BEDTIME FOR 1 WEEK IF IMPORVEMENT TAKE ONE CAPSULE BY MOUTH TWO TIMES A DAY TAKE ONE CAPSULE BY MOUTH AT BEDTIME FOR 1 WEEK IF IMPORVEMENT TAKE ONE CAPSULE BY MOUTH TWO TIMES A DAY SOLD: 10/20/2020 [facility] 15 mg 10/11/2020 12:00:00 AM EDT tablet 180 TAKE ONE TABLET BY MOUTH EVERY 4 HOURS NEEDED FOR CANCER RELATED PAIN, MAXIMUM DAILY DOSE = SIX TABLETS TAKE ONE TABLET BY MOUTH EVERY 4 HOURS NEEDED FOR CANCER RELATED PAIN, MAXIMUM DAILY DOSE = SIX TABLETS SOLD: 10/11/2020 [facility] Oxycodone Hydrochloride 15 MG Oral Table t oxyCODONE HCl 15 MG Oral Tablet (ROXICODONE) oxyCODONE HCl 15 MG Oral Tablet (ROXICODONE) 12:00:00 AM EDT 15 mg Oral aborted Chronic Pain Peter e 1 tablet by mouth every 4 (four) hours as needed for PainCancer related pain, Max Daily Dose: 90 mg Indications: Chronic Pain [facility] Chronic Pain TC-99M medronate (Tc-MDP) [address]-7 10/05/2020 10:45:00 AM EDT Intravenous completed Intravenous, Once, On Sun10/05/20 at 1045, For 1 dose, Imaging Protocol [facility] Medication administered onsite 15 mg 09/10/2020 12:00:00 AM EDT tablet 180 TAKE ONE TABLET BY MOUTH EVERY 4 HOURS NEEDED FOR PAIN , MAXIMUM DAILY DOSE = 6 TABLETS TAKE ONE TABLET BY MOUTH EVERY 4 HOURS NEEDED FOR PAIN , MAXIMUM DAILY DOSE = 6 TABLETS SOLD: 09/13/2020 [facility] Oxycodone Hydrochloride 15 MG Oral Table t oxyCODONE HCl 15 MG Oral Tablet (ROXICODONE) oxyCODONE HCl 15 MG Oral Tablet (ROXICODONE) 12:00:00 AM EDT 15 mg Oral active Chronic Pain Peter e 1 tablet by mouth every 4 (four) hours as needed for PainCancer related pain, Max Daily Dose: 90 mg Indications: Chronic Pain [facility] Chronic Pain 1.5 ML Leuprolide Acetate 15 MG/ML Prefi lled Syringe leuprolide acetate (LUPRON) injection 22.5 mg leuprolide acetate (LUPRON) injection 22.5 mg 08/21/19 11:45:00 AM EDT 22.5 mg Intramuscular completed 22.5 mg, Intramuscular, Once, On Sun08/20/20 at 1145, For 1 dose
FOR IM USE ONLY
[facility] Medication administered onsite Oxycodone Hydrochloride 15 MG Oral Table t oxyCODONE HCl 15 MG Oral Tablet (ROXICODONE) oxyCODONE HCl 15 MG Oral Tablet (ROXICODONE) 12:00:00 AM EDT 15 mg Oral active Chronic Pain Peter e 1 tablet by mouth every 4 (four) hours as needed for PainCancer related pain, Max Daily Dose: 90 mg Indications: Chronic Pain [facility] Chronic Pain 0.12 % 08/12/2020 12:00:00 AM EDT mouthwash 473 USE DIRECTED TWO TIMES A DAY USE DIRECTED TWO TIMES A DAY SOLD: 10/11/2020 [facility] 300 mg 08/12/2020 12:00:00 AM EDT capsule 60 TAKE ONE CAPSULE BY MOUTH EVERY DAY AT BEDTIME FOR 1 WEEK, IF NO IMPROVEMENT, TAKE ONE CAPSULE TWO TIMES A DAY TAKE ONE CAPSULE BY MOUTH EVERY DAY AT BEDTIME FOR 1 WEEK, IF NO IMPROVEMENT, TAKE ONE CAPSULE TWO TIMES A DAY SOLD: 08/12/2020 [facility] 15 mg 08/12/2020 12:00:00 AM EDT tablet 180 TAKE ONE TABLET BY MOUTH EVERY 4 HOURS NEEDED FOR CANCER RELATED PAIN, MAXIMUM DAILY DOSE = SIX TABLETS TAKE ONE TABLET BY MOUTH EVERY 4 HOURS NEEDED FOR CANCER RELATED PAIN, MAXIMUM DAILY DOSE = SIX TABLETS SOLD: 08/12/2020 [facility] 0.12 % 08/12/2020 12:00:00 AM EDT mouthwash 473 USE DIRECTED TWO TIMES A DAY USE DIRECTED TWO TIMES A DAY SOLD: 08/12/2020 [facility] 15 mg 07/14/2020 12:00:00 AM EDT tablet 180 TAKE ONE TABLET BY MOUTH EVERY 4 HOURS NEEDED FOR CANCER RELATED PAIN , MAXIMUM DAILY DOSE =6 TABLETS TAKE ONE TABLET BY MOUTH EVERY 4 HOURS NEEDED FOR CANCER RELATED PAIN , MAXIMUM DAILY DOSE =6 TABLETS SOLD: 07/14/2020 [facility] 15 mg 06/15/2020 12:00:00 AM EST tablet 180 TAKE ONE TABLET BY MOUTH EVERY 4 HOURS NEEDED FOR PAIN, MAXIMUM DAILY DOSE = SIX TABLETS TAKE ONE TABLET BY MOUTH EVERY 4 HOURS NEEDED FOR PAIN, MAXIMUM DAILY DOSE = SIX TABLETS SOLD: 06/15/2020 [facility] enzalutamide 40 MG Oral Capsule [Xtandi] Xtandi 40 MG Oral Capsule (Enzalutamide) Xtandi 40 MG Oral Capsule (Enzalutamide) 06/14/2020 12 :00:00 AM EST active Primary prostate adenoca rcinoma TAKE 4 CAPSULES BY MOUTH EVERY DAY [facility] Primary prostate adenocarcinoma 1.5 ML Leuprolide Acetate 15 MG/ML Prefi lled Syringe leuprolide (ELIGARD) SubQ injection 22.5 mg for 3-month administration leuprolide (ELIGARD) SubQ injection 22.5 mg for 3-month administration 05/21/2020 11:00:00 AM EST 2 2.5 mg Subcutaneous completed Prostate cancer metastatic to bone 22.5 mg, Subcutaneous, Once, Sun05/21/20 at 1100, For [address] [facility] Prostate cancer metastatic to bone Medication administered onsite 15 mg 05/14/2020 12:00:00 AM EST tablet 180 TAKE ONE TABLET BY MOUTH EVERY 4 HOURS NEEDED FOR PAIN MAXIMUM DAILY DOSE = SIX TABLETS TAKE ONE TABLET BY MOUTH EVERY 4 HOURS NEEDED FOR PAIN MAXIMUM DAILY DOSE = SIX TABLETS SOLD: 05/14/2020 [facility] Oxycodone Hydrochloride 15 MG Oral Table t oxyCODONE HCl 15 MG Oral Tablet (ROXICODONE) oxyCODONE HCl 15 MG Oral Tablet (ROXICODONE) 12:00:00 AM EST 15 mg Oral active Chronic Pain Peter e 1 tablet by mouth every 4 (four) hours as needed for PainCancer related pain, Max Daily Dose: 90 mg Indications: Chronic Pain [facility] Chronic Pain 15 mg 04/13/2020 12:00:00 AM EST tablet 180 TAKE ONE TABLET BY MOUTH EVERY 4 HOURS NEEDED FOR PAIN, MAXIMUM DAILY DOSE = SIX TABLETS TAKE ONE TABLET BY MOUTH EVERY 4 HOURS NEEDED FOR PAIN, MAXIMUM DAILY DOSE = SIX TABLETS SOLD: 04/15/2020 [facility] 15 mg 03/12/2020 12:00:00 AM EST tablet 180 TAKE ONE TABLET BY MOUTH EVERY 4 HOURS NEEDED FOR PAIN , MAXIMUM DAILY DOSE =6 TABLETS TAKE ONE TABLET BY MOUTH EVERY 4 HOURS NEEDED FOR PAIN , MAXIMUM DAILY DOSE =6 TABLETS SOLD: 03/12/2020 [facility] 300 mg 03/09/2020 12:00:00 AM EST capsule 60 TAKE ONE CAPSULE BY MOUTH EVERY DAY AT BEDTIME FOR 7 DAYS, THEN TAKE ONE CAPSULE BY MOUTH TWICE A DAY TAKE ONE CAPSULE BY MOUTH EVERY DAY AT BEDTIME FOR 7 DAYS, THEN TAKE ONE CAPSULE BY MOUTH TWICE A DAY SOLD: 03/09/2020 [facility] 800 mg 03/08/2020 12:00:00 AM EST tablet 90 TAKE ONE TABLET BY MOUTH THREE TIMES A DAY WITH FOOD OR MILK TAKE ONE TABLET BY MOUTH THREE TIMES A D AY WITH FOOD OR MILK SOLD: 05/07/2020 [facility] gabapentin 300 MG Oral Capsule Gabapentin 300 MG Gabapentin 300 MG 03/08/2020 12:00:00 AM EST active Gabapent in 300 MG eCW1 ([facility]) gabapentin 300 MG Oral Capsule Gabapentin 300 MG Gabapentin 300 MG 03/08/2020 12:00:00 AM EST active Gabapent in 300 MG eCW1 ([facility]) 800 mg 03/08/2020 12:00:00 AM EST tablet 90 TAKE ONE TABLET BY MOUTH THREE TIMES A DAY WITH FOOD OR MILK TAKE ONE TABLET BY MOUTH THREE TIMES A D AY WITH FOOD OR MILK SOLD: 03/09/2020 [facility] 0.12 % 03/08/2020 12:00:00 AM EST mouthwash 473 USE DIRECTED TWO TIMES A DAY USE DIRECTED TWO TIMES A DAY SOLD: 03/09/2020 [facility] 0.05 % 03/08/2020 12:00:00 AM EST ointment 30 APPLY TO AFFECTED AREA(S) TWO TIMES A DAY IF RASH RECURS ON BODY - AVOID FACE, GROIN, AND ARMPITS. APPLY TO AFFECTED AREA(S) TWO TIMES A DAY IF RASH RECURS ON BODY - AVOID FACE, GROIN, AND ARMPITS. SOLD: 10/11/2020 [facility] 800 mg 03/08/2020 12:00:00 AM EST tablet 90 TAKE ONE TABLET BY MOUTH THREE TIMES A DAY WITH FOOD OR MILK TAKE ONE TABLET BY MOUTH THREE TIMES A D AY WITH FOOD OR MILK SOLD: 06/15/2020 [facility] 800 mg 03/08/2020 12:00:00 AM EST tablet 90 TAKE ONE TABLET BY MOUTH THREE TIMES A DAY WITH FOOD OR MILK TAKE ONE TABLET BY MOUTH THREE TIMES A D AY WITH FOOD OR MILK SOLD: 10/11/2020 [facility] 0.4 mg 03/08/2020 12:00:00 AM EST capsule 180 TAKE TWO CAPSULES BY MOUTH EVERY DAY TAKE TWO CAPSULES BY MOUTH EVERY DAY SOLD: 03/09/2020 [facility] gabapentin 300 MG Oral Capsule Gabapentin 300 MG Gabapentin 300 MG 03/08/2020 12:00:00 AM EST active Gabapent in 300 MG eCW1 ([facility]) gabapentin 300 MG Oral Capsule Gabapentin 300 MG Gabapentin 300 MG 03/08/2020 12:00:00 AM EST active Gabapent in 300 MG eCW1 ([facility]) gabapentin 300 MG Oral Capsule Gabapentin 300 MG Gabapentin 300 MG 03/08/2020 12:00:00 AM EST active Gabapent in 300 MG eCW1 ([facility]) 0.05 % 03/08/2020 12:00:00 AM EST ointment 60 APPLY TO AFFECTED AREA(S) TWO TIMES A DAY IF RASH RECURS ON BODY - AVOID FACE, GROIN, AND ARMPITS. APPLY TO AFFECTED AREA(S) TWO TIMES A DAY IF RASH RECURS ON BODY - AVOID FACE, GROIN, AND ARMPITS. SOLD: 05/07/2020 [facility] 0.05 % 03/08/2020 12:00:00 AM EST ointment 60 APPLY TO AFFECTED AREA(S) TWO TIMES A DAY IF RASH RECURS ON BODY - AVOID FACE, GROIN, AND ARMPITS. APPLY TO AFFECTED AREA(S) TWO TIMES A DAY IF RASH RECURS ON BODY - AVOID FACE, GROIN, AND ARMPITS. SOLD: 03/09/2020 [facility] gabapentin 300 MG Oral Capsule Gabapentin 300 MG Gabapentin 300 MG 03/08/2020 12:00:00 AM EST active Gabapent in 300 MG eCW1 ([facility]) 0.05 % 03/08/2020 12:00:00 AM EST ointment 15 APPLY TO AFFECTED AREA(S) TWO TIMES A DAY IF RASH RECURS ON BODY - AVOID FACE, GROIN, AND ARMPITS. APPLY TO AFFECTED AREA(S) TWO TIMES A DAY IF RASH RECURS ON BODY - AVOID FACE, GROIN, AND ARMPITS. SOLD: 07/17/2020 [facility] gabapentin 300 MG Oral Capsule Gabapentin 300 MG Gabapentin 300 MG 03/08/2020 12:00:00 AM EST active Gabapent in 300 MG eCW1 ([facility]) gabapentin 300 MG Oral Capsule Gabapentin 300 MG Gabapentin 300 MG 03/08/2020 12:00:00 AM EST active Gabapent in 300 MG eCW1 ([facility]) 350 mg 03/08/2020 12:00:00 AM EST tablet 90 TAKE ONE TABLET BY MOUTH THREE TIMES A DAY NEEDED, MAXIMUM DAILY DOSE = THREE TABLETS TAKE ONE TABLET BY MOUTH THREE TIMES A DAY NEEDED, MAXIMUM DAILY DOSE = THREE TABLETS SOLD: 06/15/2020 [facility] 350 mg 03/08/2020 12:00:00 AM EST tablet 90 TAKE ONE TABLET BY MOUTH THREE TIMES A DAY NEEDED, MAXIMUM DAILY DOSE = THREE TABLETS TAKE ONE TABLET BY MOUTH THREE TIMES A DAY NEEDED, MAXIMUM DAILY DOSE = THREE TABLETS SOLD: 03/09/2020 [facility] 800 mg 03/08/2020 12:00:00 AM EST tablet 90 TAKE ONE TABLET BY MOUTH THREE TIMES A DAY WITH FOOD OR MILK TAKE ONE TABLET BY MOUTH THREE TIMES A D AY WITH FOOD OR MILK SOLD: 08/12/2020 [facility] gabapentin 300 MG Oral Capsule Gabapentin 300 MG Gabapentin 300 MG 03/08/2020 12:00:00 AM EST active Gabapent in 300 MG W1 ([facility]) 350 mg 03/08/2020 12:00:00 AM EST tablet 90 TAKE ONE TABLET BY MOUTH THREE TIMES A DAY NEEDED, MAXIMUM DAILY DOSE = THREE TABLETS TAKE ONE TABLET BY MOUTH THREE TIMES A DAY NEEDED, MAXIMUM DAILY DOSE = THREE TABLETS SOLD: 05/07/2020 [facility] 1.5 ML Leuprolide Acetate 15 MG/ML Prefi lled Syringe leuprolide (ELIGARD) SubQ injection 22.5 mg for 3-month administration leuprolide (ELIGARD) SubQ injection 22.5 mg for 3-month administration 02/19/2020 03:15:00 PM EDT 2 2.5 mg Subcutaneous completed Primary prostate adenocarcinoma 22.5 mg, Subcutaneous, Once, [facility] 02/19/20 at 1515, For [address] [facility] Primary prostate adenocarcinoma Medication administered onsite 15 mg 02/12/2020 12:00:00 AM EDT tablet 180 TAKE ONE TABLET BY MOUTH EVERY 4 HOURS NEEDED FOR PAIN, MAXIMUM DAILY DOSE = SIX TABLETS TAKE ONE TABLET BY MOUTH EVERY 4 HOURS NEEDED FOR PAIN, MAXIMUM DAILY DOSE = SIX TABLETS SOLD: 02/12/2020 [facility] Oxycodone Hydrochloride 15 MG Oral Table t oxyCODONE HCl 15 MG Oral Tablet (ROXICODONE) oxyCODONE HCl 15 MG Oral Tablet (ROXICODONE) 0 12:00:00 AM EDT 15 mg Oral active Chronic Pain Peter e 1 tablet by mouth every 4 (four) hours as needed for Pain, Max Daily Dose: 90 mg Indications: Chronic Pain [facility] Chronic Pain 0.12 % 02/11/2020 12:00:00 AM EDT mouthwash 473 RINSE MOUTH/THROAT DIRECTED TWO TIMES A DAY RINSE MOUTH/THROAT DIRECTED TWO TIMES A DAY SOLD: 02/12/2020 [facility] 15 mg 01/06/2020 12:00:00 AM EDT tablet 180 TAKE ONE TABLET BY MOUTH EVERY 4 HOURS NEEDED FOR PAIN MAXIMUM DAILY DOSE = SIX TABLETS TAKE ONE TABLET BY MOUTH EVERY 4 HOURS NEEDED FOR PAIN MAXIMUM DAILY DOSE = SIX TABLETS SOLD: 01/06/2020 [facility] 100 mg 12/19/2019 12:00:00 AM EDT tablet 30 TAKE ONE TABLET BY MOUTH EVERY DAY TAKE ONE TABLET BY MOUTH EVERY DAY SOLD: 01/06/2020 [facility] 0.12 % 12/03/2019 12:00:00 AM EDT mouthwash 473 USE DIRECTED TWO TIMES A DAY USE DIRECTED TWO TIMES A DAY SOLD: 05/07/2020 [facility] 0.12 % 12/03/2019 12:00:00 AM EDT mouthwash 473 USE DIRECTED TWO TIMES A DAY USE DIRECTED TWO TIMES A DAY SOLD: 01/06/2020 [facility] 350 mg 09/27/2019 12:00:00 AM EDT tablet 90 TAKE ONE TABLET BY MOUTH THREE TIMES A DAY NEEDED FOR PALLIATIVE, MAXIMUM DAILY DOSE = THREE TABLETS TAKE ONE TABLET BY MOUTH THREE TIMES A DAY NEEDED FOR PALLIATIVE, MAXIMUM DAILY DOSE = THREE TABLETS SOLD: 01/09/2020 [facility] 800 mg 05/09/2019 12:00:00 AM EST tablet 90 TAKE ONE TABLET BY MOUTH THREE TIMES A DAY NEEDED WITH FOOD OR MILK TAKE ONE TABLET BY MOUTH THREE TIMES A DAY NEEDED WITH FOOD OR MILK SOLD: 01/06/2020 [facility] Pentoxifylline 400 MG Extended Release O ral Tablet pentoxifylline (TRENTAL) 400 MG CR tablet pentoxifylline (TRENTAL) 400 MG CR tablet 12/01/2018 1 2:00:00 AM EDT aborted TAKE ONE TABLET BY MOUTH TWICE A DAY SWALLOW WHOLE DO NOT CRUSH BREAK OR CHEW [facility] Catheters (BARD COUDE TIP CATHETER) [facility] [id number] 12:00:00 AM EDT aborted Use as directed. Use as directed [address] [facility] irbesartan 300 MG Oral Tablet irbesartan (AVAPRO) 300 MG tablet irbesartan (AVAPRO) 300 MG tablet 10/15/2018 12:00:00 AM EDT 300 mg Oral aborted Take [address] [facility] Losartan Potassium 50 MG Oral Tablet losartan (COZAAR) 50 MG tablet losartan (COZAAR) 50 MG tablet 01/17/2018 12:00:00 AM EDT 50 mg Oral aborted Take 50 mg [address] mouth [address] [facility] atorvastatin 20 MG Oral Tablet atorvastatin (LIPITOR) 20 MG tablet atorvastatin (LIPITOR) 20 MG tablet 01/07/2018 12:00:00 AM EDT 20 mg Oral aborted Take [address] mouth [address] [facility] Amlodipine 10 MG Oral Tablet amlodipine (NORVASC) 10 M G tablet amlodipine (NORVASC) 10 MG tablet 09/17/2017 12:00:00 AM EDT 10 mg Oral aborted Take [address] mouth [address] [facility] 12 HR Orphenadrine Citrate 100 MG Extend ed Release Oral Tablet orphenadrine (NORFLEX) 100 MG tablet orphenadrine (NORFLEX) 100 MG tablet 09/14/2017 12:00: 00 AM EDT 100 mg Oral aborted Osteoarthr itis of cervical spine, unspecified spinal osteoarthritis complication status Take 1 table t by mouth Two times daily as needed for Muscle spasms for up to [address] [facility] Osteoarthritis of cervical spine, unspec ified spinal osteoarthritis complication status Losartan Potassium 25 MG Oral Tablet losartan (COZAAR) 25 MG tablet losartan (COZAAR) 25 MG tablet 25 mg Oral aborted Ta ke 25 mg [address] mouth daily [facility] Diclofenac Sodium 50 MG Delayed Release Oral Tablet diclofenac (VOLTAREN) 50 MG EC tablet diclofenac (VOLTAREN) 50 MG EC tablet 50 mg Oral aborted Take 50 mg by mouth Two Times Daily [facility] Leuprolide Acetate (LUPRON DEPOT IM) Intramuscular aborted Inject into the muscle every 3 (three) months [facility] Ascorbic Acid (VITAMIN C PO) Oral aborted Take by mouth. [facility] Calcium Carbonate 1500 MG Oral Tablet calcium carbonat e (OS-EDWIN) 600 MG TABS calcium carbonate (OS-EDWIN) 600 MG TABS 600 mg Oral aborted Take [address] [facility] Losartan Potassium 25 MG Oral Tablet losartan (COZAAR) 25 MG tablet losartan (COZAAR) 25 MG tablet 25 mg Oral aborted Ta ke [address] [facility] Insurance Providers Payer name Policy type / Coverage type Policy ID Covered libertarian ID Covered libertarian's relationship to [place] Policy [place] Plan Information UHC I [id number] Self [id number] UHC I [id number] Self [id number] UHC I [id number] Self [id number] UNHC COMMUNITY PLAN MCDHMO [id number] SP [id number] UNHC COMMUNITY PLAN MCDHMO [id number] SP [id number] MEDICAID [id number] UNHC COMMUNITY PLAN MCDHMO [id number] SP [id number] MEDICAID [id number] Self [id number] UHC I [id number] Self [id number] UHC I [id number] Self [id number] UHC I [id number] Self [id number] MEDICAID M [id number] Self [id number] UHC I [id number] Self [id number] UHC I [id number] Self [id number] ANSI-Medicaid [id number] ANSI-Medicaid [id number] ANSI-Medicaid [id number] ANSI-Medicaid [id number] ANSI-Medicaid [id number] ANSI-Medicaid [id number] ANSI-Medicaid [id number] ANSI-Medicaid [id number] ANSI-Medicaid [id number] ANSI-Medicaid [id number] ANSI-Medicaid [id number] ANSI-Medicaid [id number] ANSI-Medicaid [id number] ANSI-Medicaid [id number] ANSI-Medicaid [id number] ANSI-Medicaid [id number] ANSI-Medicaid [id number] ANSI-Medicaid [id number] ANSI-Medicaid [id number] ANSI-Medicaid [id number] ANSI-Medicaid [id number] ANSI-Medicaid [id number] ANSI-Medicaid [id number] ANSI-Medicaid [id number] ANSI-Medicaid [id number] ANSI-Medicaid [id number] ANSI-Medicaid [id number] ANSI-Medicaid [id number] ANSI-Medicaid [id number] ANSI-Medicaid [id number] ANSI-Medicaid [id number] ANSI-Medicaid [id number] ANSI-Medicaid [id number] ANSI-Medicaid [id number] ANSI-Medicaid [id number] ANSI-Medicaid [id number] ANSI-Medicaid [id number] ANSI-Medicaid [id number] UNHC COMMUNITY PLAN MCDHMO [id number] SP [id number] SELF PAY ONLY UNAVAILABLE SP UNAV AILABLE UNHC COMMUNITY PLAN MCDHMO [id number] SP [id number] UNHC COMMUNITY PLAN MCDHMO [id number] SP [id number] UNHC COMMUNITY PLAN MCDHMO UNK SP UNK [facility] Health Maintenance Organization (HMO) [id number] Self Community Plan - [facility] Commercial [id number] Self UNHC COMMUNITY PLAN MCDHMO [id number] SP [id number] UNHC COMMUNITY PLAN MCDHMO [id number] SP [id number] Unitedhealthcare Medicaid Medicaid [id number] Self [employer] [place] PLAN [id number] SP [id number] UNHC COMMUNITY PLAN MCDHMO [id number] SP [id number] UNHC COMMUNITY PLAN MCDHMO [id number] SP [id number] [facility] O [id number] S [id number] MEDICAID [id number] SP [id number] ANSI-Medicaid [id number] ANSI-Medicaid [id number] ANSI-Medicaid [id number] ANSI-Medicaid [id number] ANSI-Medicaid [id number] ANSI-Medicaid [id number] ANSI-Medicaid [id number] ANSI-Medicaid [id number] Problems, Conditions, and Diagnoses Code Display Name Description Problem Type Effective Dates Data Source(s) follow up follow up Diagnosis 02/15/2021 12:00:00 AM ED [facility] on treat on treat Diagnosis 01/18/2021 11:04:47 AM ED [facility] R10.30 Lower abdominal pain, unspecified Lower abdomina l pain, unspecified Diagnosis 12/14/2020 12:17:10 PM [facility] XRAY XRAY Diagnosis 12/14/2020 12:17:10 PM [facility] 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) use of o ther agents affecting estrogen receptors and estrogen levels snf (current) use of other agents affecting estrogen receptors and estrogen levels Diagnosis 05/21/2020 09:48:31 AM [facility] Z51.11 Encounter for antineoplastic chemotherap y Encounter for antineoplastic chemotherapy Diagnosis 05/21/2020 09:48:31 AM [facility] 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) Diagnosis 02/19/2020 02:01:01 PM [facility] 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, other site Problem 05/10/2020 12:00:00 AM EST eCW1 ([facility]) 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 Problem 03/08/2020 12:00:00 AM EST eCW1 ([facility]) 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 Problem 03/08/2020 12:0 0:00 AM EST eCW1 ([facility]) Surgeries/Procedures Procedure Description Date Indications Data Source(s) BLOOD COUNT COMPLETE AUTO&AUTO DIFRNTL WBC COUNT <td>C BC AND DIFFERENTIAL</td><td>Routine</td><td>01/17/2021 3:52 AM EDT</td><td></td><td> </td> 01/17/2021 03:52:00 AM [facility] MAGNESIUM <td>MAGNESIUM LEVEL</td><td> Routine</td><td>01/17/2021 3:52 AM EDT</td><td></td><td> </td> 01/17/2021 03:52:00 AM [facility] BASIC METABOLIC PANEL CALCIUM TOTAL <td>BASIC METABOLI C PANEL</td><td>Routine</td><td>01/17/2021 3:52 AM EDT</td><td></td><td> </td> 01/17/2021 03:52:00 AM [facility] BLOOD COUNT COMPLETE AUTO&AUTO DIFRNTL WBC COUNT <td>C BC AND DIFFERENTIAL</td><td>Routine</td><td>01/16/2021 3:23 AM EDT</td><td></td><td> </td> 01/16/2021 03:23:00 AM [facility] MAGNESIUM <td>MAGNESIUM LEVEL</td><td> Routine</td><td>01/16/2021 3:23 AM EDT</td><td></td><td> </td> 01/16/2021 03:23:00 AM [facility] BASIC METABOLIC PANEL CALCIUM TOTAL <td>BASIC METABOLI C PANEL</td><td>Routine</td><td>01/16/2021 3:23 AM EDT</td><td></td><td> </td> 01/16/2021 03:23:00 AM [facility] TRANSFUSE RBC (ONCE) <td>TRANSFUSE RBC (ONCE)</td ><td>STAT</td><td>01/15/2021 4:46 PM EDT</td><td></td><td></td> 01/15/2021 04:46:11 PM [facility] BLOOD TYPING ABO <td>TYPE AND SCREEN</td><td> STAT</td><td>01/15/2021 12:15 PM EDT</td><td></td><td> </td> 01/15/2021 12:15:00 PM [facility] CONFIRMATORY TYPE <td>CONFIRMATORY TYPE</td><t d>Routine</td><td>01/15/2021 12:20 AM EDT</td><td></td><td> </td> 01/15/2021 12:20:00 AM [facility] BLOOD COUNT COMPLETE AUTO&AUTO DIFRNTL WBC COUNT <td>C BC AND DIFFERENTIAL</td><td>Routine</td><td>01/15/2021 12:20 AM EDT</td><td></td><td> </td> 01/15/2021 12:20:00 AM [facility] BASIC METABOLIC PANEL CALCIUM TOTAL <td>BASIC METABOLI C PANEL</td><td>Routine</td><td>01/15/2021 12:20 AM EDT</td><td></td><td> </td> 01/15/2021 12:20:00 AM [facility] CULTURE BACTERIAL BLOOD AEROBIC W/ID ISOLATES <td>BLOO D CULTURE</td><td>Routine</td><td>01/14/2021 7:58 PM EDT</td><td></td><td></td> 01/14/2021 07:58:00 PM [facility] CULTURE BACTERIAL BLOOD AEROBIC W/ID ISOLATES <td>BLOO D CULTURE</td><td>Routine</td><td>01/14/2021 12:03 PM EDT</td><td></td><td></td> 01/14/2021 12:03:00 PM [facility] COMMUNITY-ACQUIRED DIARRHEA PANEL <td>COMMUNITY-ACQUIR ED DIARRHEA PANEL</td><td>Routine</td><td>01/14/2021 6:19 AM EDT</td><td></td><td> </td> 01/14/2021 06:19:00 AM [facility] BLOOD COUNT COMPLETE AUTO&AUTO DIFRNTL WBC COUNT <td>C BC AND DIFFERENTIAL</td><td>Routine</td><td>01/14/2021 4:56 AM EDT</td><td></td><td> </td> 01/14/2021 04:56:00 AM [facility] BASIC METABOLIC PANEL CALCIUM TOTAL <td>BASIC METABOLI C PANEL</td><td>Routine</td><td>01/14/2021 4:56 AM EDT</td><td></td><td> </td> 01/14/2021 04:56:00 AM [facility] CULTURE BCT ISOL&PRSMPTV ID ISOLATE EA URINE <td>URINE CATHETER CULT</td><td>Routine</td><td>01/13/2021 4:46 PM EDT</td><td></td><td> </td> 01/13/2021 04:46:00 PM [facility] CULTURE BCT ISOL&PRSMPTV ID ISOLATE EA URINE <td>URINE SUPRAPUBIC CUL</td><td>Routine</td><td>01/13/2021 4:46 PM EDT</td><td></td><td></td> 01/13/2021 04:46:00 PM [facility] CULTURE BCT ISOL&PRSMPTV ID ISOLATE EA URINE <td>URINE SUPRAPUBIC CUL</td><td>Routine</td><td>01/13/2021 2:15 PM EDT</td><td></td><td></td> 01/13/2021 02:15:00 PM [facility] IR NEPHROSTOMY INSERTION CHANGE <td>IR NEPHROSTOMY INS ERTION CHANGE</td><td>Routine</td><td>01/13/2021 1:54 PM EDT</td><td></td><td> </td> 01/13/2021 01:54:50 PM [facility] IRON <td>TOTAL FE BINDING CAPACIT Y</td><td>Routine</td><td>01/13/2021 10:32 AM EDT</td><td></td><td> </td> 01/13/2021 10:32:00 AM [facility] LACTATE DEHYDROGENASE LDH <td>LACTATE DEHYDROGENASE</td><td>Routine</td><td>01/13/2021 10:32 AM EDT</td><td></td><td> </td> 01/13/2021 10:32:00 AM [facility] HAPTOGLOBIN QUANTITATIVE <td>HAPTOGLOBIN</td><td>Rout ine</td><td>01/13/2021 10:32 AM EDT</td><td></td><td> </td> 01/13/2021 10:32:00 AM [facility] FOLIC ACID SERUM <td>FOLATE</td><td>Routine</ td><td>01/13/2021 10:32 AM EDT</td><td></td><td> </td> 01/13/2021 10:32:00 AM [facility] FERRITIN <td>FERRITIN LEVEL</td><td>R outine</td><td>01/13/2021 10:32 AM EDT</td><td></td><td> </td> 01/13/2021 10:32:00 AM [facility] CYANOCOBALAMIN VITAMIN B-12 <td>VITAMIN B12</td><td>Ro utine</td><td>01/13/2021 10:32 AM EDT</td><td></td><td> </td> 01/13/2021 10:32:00 AM [facility] POTASSIUM SERUM PLASMA/WHOLE BLOOD <td>POTASSIUM</td><td>Routine</td><td>01/13/2021 6:22 AM EDT</td><td></td><td> </td> 01/13/2021 06:22:00 AM [facility] PHOSPHORUS INORGANIC <td>PHOSPHORUS LEVEL</td><td >Routine</td><td>01/13/2021 6:22 AM EDT</td><td></td><td> </td> 01/13/2021 06:22:00 AM [facility] MAGNESIUM <td>MAGNESIUM LEVEL</td><td> Routine</td><td>01/13/2021 6:22 AM EDT</td><td></td><td> </td> 01/13/2021 06:22:00 AM [facility] BLOOD COUNT COMPLETE AUTO&AUTO DIFRNTL WBC COUNT <td>C BC AND DIFFERENTIAL</td><td>Routine</td><td>01/13/2021 1:42 AM EDT</td><td></td><td> </td> 01/13/2021 01:42:00 AM [facility] CALCIUM IONIZED <td>CALCIUM, IONIZED</td><td >Routine</td><td>01/13/2021 1:42 AM EDT</td><td></td><td> </td> 01/13/2021 01:42:00 AM [facility] BASIC METABOLIC PANEL CALCIUM TOTAL <td>BASIC METABOLI C PANEL</td><td>Routine</td><td>01/13/2021 1:42 AM EDT</td><td></td><td> </td> 01/13/2021 01:42:[address] [facility] CT ABDOMEN & PELVIS W/O CONTRAST MATERIAL <td>CT ABDOM EN PELVIS WITHOUT CONTRAST [id number]</td><td>Routine</td><td>01/12/2021 7:36 PM EDT</td><td></td><td> </td> 01/12/2021 07:36:43 PM [facility] HEPATITIS C ANTIBODY <td>HEPATITIS C ANTIBODY</td ><td>Routine</td><td>01/12/2021 5:41 PM EDT</td><td></td><td> </td> 01/12/2021 05:41:00 PM [facility] PROTHROMBIN TIME <td>PROTIME INR</td><td>Rout ine</td><td>01/12/2021 5:41 PM EDT</td><td></td><td> </td> 01/12/2021 05:41:00 PM [facility] CALCIUM IONIZED <td>CALCIUM, IONIZED</td><td >Routine</td><td>01/12/2021 5:41 PM EDT</td><td></td><td> </td> 01/12/2021 05:41:[address] [facility] THER RAD SIMULAJ-AIDED FIELD SETTING COMPLEX <td>CT SI MULATION AT RAD ONC (IN OFFICE)</td><td>Routine</td><td>01/12/2021 2:09 PM EDT</td><td> Prostate cancer</td><td></td> 01/12/2021 02:09:00 PM EDT Prostate cancer [facility] Prostate cancer US RETROPERITONEAL REAL TIME W/IMAGE COMPLETE <td>US R ENAL OR AORTA COMPLETE [id number]</td><td>Routine</td><td>01/12/2021 10:59 AM EDT</td><td></td><td> </td> 01/12/2021 10:59:00 AM [facility] MRI BRAIN BRAIN STEM W/O &W/CONTRAST MATERIAL <td>MR B RAIN WITH AND WITHOUT CONTRAST [id number]</td><td>Routine</td><td>01/12/2021 9:53 AM EDT</td><td></td><td> </td> 01/12/2021 09:53:52 AM [facility] CALCIUM IONIZED <td>CALCIUM, IONIZED</td><td >Routine</td><td>01/12/2021 8:24 AM EDT</td><td></td><td> </td> 01/12/2021 08:24:00 AM [facility] COVID-19 PCR <td>COVID-19 PCR</td><td>[place]</td><td>01/12/2021 5:13 AM EDT</td><td></td><td> </td> 01/12/2021 05:13:00 AM [facility] BLOOD COUNT COMPLETE AUTOMATED <td>CBC</td><td>Routine </td><td>01/12/2021 1:11 AM EDT</td><td></td><td> </td> 01/12/2021 01:11:00 AM [facility] PHOSPHORUS INORGANIC <td>PHOSPHORUS LEVEL</td><td >Routine</td><td>01/12/2021 1:11 AM EDT</td><td></td><td> </td> 01/12/2021 01:11:00 AM [facility] PARATHORMONE <td>PTH, INTACT</td><td>Rout ine</td><td>01/12/2021 1:11 AM EDT</td><td></td><td> </td> 01/12/2021 01:11:00 AM [facility] MAGNESIUM <td>MAGNESIUM LEVEL</td><td> Routine</td><td>01/12/2021 1:11 AM EDT</td><td></td><td> </td> 01/12/2021 01:11:00 AM [facility] CALCIUM IONIZED <td>CALCIUM, IONIZED</td><td >Routine</td><td>01/12/2021 1:11 AM EDT</td><td></td><td> </td> 01/12/2021 01:11:00 AM [facility] COMPREHENSIVE METABOLIC PANEL <td>COMPREHENSIVE METABO LIC PANEL</td><td>Routine</td><td>01/12/2021 1:11 AM EDT</td><td></td><td> </td> 01/12/2021 01:11:00 AM [facility] BASIC METABOLIC PANEL CALCIUM TOTAL <td>BASIC METABOLI C PANEL</td><td>Routine</td><td>01/11/2021 6:34 PM EDT</td><td></td><td> </td> 01/11/2021 06:34:00 PM [facility] XR CHEST FRONTAL ONLY [id number] <td>XR CHEST FRONTAL ONLY [id number]</td><td>Routine</td><td>01/11/2021 6:07 PM EDT</td><td></td><td> </td> 01/11/2021 06:07:00 PM [facility] CULTURE BACTERIAL BLOOD AEROBIC W/ID ISOLATES <td>BLOO D CULTURE</td><td>Routine</td><td>01/11/2021 11:50 AM EDT</td><td></td><td> </td> 01/11/2021 11:50:00 AM [facility] CALCIUM IONIZED <td>CALCIUM, IONIZED</td><td >Routine</td><td>01/11/2021 11:40 AM EDT</td><td></td><td> </td> 01/11/2021 11:40:00 AM [facility] EKG 12-LEAD - CMAXX REPORT <td>EKG 12-LEAD - CMAXX REPORT</td><td></td><td>01/11/2021 11:35 AM EDT</td><td></td><td></td> 01/11/2021 11:35:37 AM [facility] EKG 12-LEAD - CMAXX REPORT <td>EKG 12-LEAD - CMAXX REPORT</td><td></td><td>01/11/2021 11:35 AM EDT</td><td></td><td></td> 01/11/2021 11:35:37 AM [facility] EKG 12-LEAD <td>EKG 12-LEAD</td><td>STAT </td><td>01/11/2021 11:35 AM EDT</td><td> Prostate cancer metastatic to bone</td><td> </td> 01/11/2021 11:35:37 AM EDT Prostate cancer metastatic to [facility] Prostate cancer metastatic to bone CULTURE BACTERIAL BLOOD AEROBIC W/ID ISOLATES <td>BLOO D CULTURE</td><td>Routine</td><td>01/11/2021 11:28 AM EDT</td><td> Prostate cancer metastatic to bone</td><td> </td> 01/11/2021 11:28:00 AM EDT Prostate cancer metastatic to [facility] Prostate cancer metastatic to bone LACTATE <td>LACTIC ACID LEVEL, PLASM A</td><td>STAT</td><td>01/11/2021 11:28 AM EDT</td><td> Prostate cancer metastatic to bone</td><td> </td> 01/11/2021 11:28:00 AM EDT Prostate cancer metastatic to [facility] Prostate cancer metastatic to bone AMMONIA <td>AMMONIA LEVEL</td><td>ST AT</td><td>01/11/2021 11:28 AM EDT</td><td> Secondary malignant neoplasm of bone</td><td> </td> 01/11/2021 11:28:00 AM EDT Secondary malignant neoplasm of bone [facility] Secondary malignant neoplasm of bone PROCALCITONIN (PCT) <td>PROCALCITONIN</td><td>Ro utine</td><td>01/11/2021 11:24 AM EDT</td><td> Prostate cancer metastatic to bone</td><td> </td> 01/11/2021 11:24:00 AM EDT Prostate cancer metastatic to [facility] Prostate cancer metastatic to bone URNLS DIP STICK/TABLET REAGENT AUTO MICROSCOPY <td>URI NALYSIS WITH MICROSCOPIC</td><td>STAT</td><td>01/11/2021 11:24 AM EDT</td><td> Prostate cancer metastatic to bone</td><td> </td> 01/11/2021 11:24:00 AM EDT Prostate cancer metastatic to bone [facility] Prostate cancer metastatic to bone CULTURE BCT ISOL&PRSMPTV ID ISOLATE EA URINE <td>URINE CULTURE</td><td>Routine</td><td>01/11/2021 11:24 AM EDT</td><td> Prostate cancer metastatic to bone</td><td> </td> 01/11/2021 11:24:00 AM EDT Prostate cancer metastatic to bone 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 Lower abdominal pain BLOOD COUNT COMPLETE AUTO&AUTO DIFRNTL WBC COUNT <td>C BC AND DIFFERENTIAL</td><td>Routine</td><td>12/14/2020 10:40 AM EDT</td><td> Prostate cancer metastatic to bone</td><td> </td> 12/14/2020 10:40:00 AM EDT Prostate cancer metastatic to bone [facility] Prostate cancer metastatic to bone PROSTATE SPECIFIC ANTIGEN TOTAL <td>PSA</td><td>Routin e</td><td>12/14/2020 10:40 AM EDT</td><td> Prostate cancer metastatic to bone</td><td> </td> 12/14/2020 10:40:00 AM EDT Prostate cancer metastatic to [facility] Prostate cancer metastatic to bone COMPREHENSIVE METABOLIC PANEL <td>COMPREHENSIVE METABO LIC PANEL</td><td>STAT</td><td>12/14/2020 10:40 AM EDT</td><td> Prostate cancer metastatic to bone</td><td> </td> 12/14/2020 10:40:00 AM EDT Prostate cancer metastatic to [facility] Prostate cancer metastatic to bone BLOOD COUNT COMPLETE AUTO&AUTO DIFRNTL WBC COUNT <td>C BC AND DIFFERENTIAL</td><td>Routine</td><td>11/23/2020 9:06 AM EDT</td><td> Prostate cancer metastatic to bone</td><td> </td> 11/23/2020 09:06:00 AM EDT Prostate cancer metastatic to [facility] Prostate cancer metastatic to bone PROSTATE SPECIFIC ANTIGEN TOTAL <td>PSA</td><td>Routin e</td><td>11/23/2020 9:06 AM EDT</td><td> Prostate cancer metastatic to bone</td><td> </td> 11/23/2020 09:06:00 AM EDT Prostate cancer metastatic to [facility] Prostate cancer metastatic to bone COMPREHENSIVE METABOLIC PANEL <td>COMPREHENSIVE METABO LIC PANEL</td><td>STAT</td><td>11/23/2020 9:06 AM EDT</td><td> Prostate cancer metastatic to bone</td><td> </td> 11/23/2020 09:06:00 AM EDT Prostate cancer metastatic to [facility] Prostate cancer metastatic to bone BLOOD COUNT COMPLETE AUTO&AUTO DIFRNTL WBC COUNT <td>C BC AND DIFFERENTIAL</td><td>STAT</td><td>11/16/2020 3:15 PM EDT</td><td> Prostate cancer metastatic to bone</td><td> </td> 11/16/2020 03:15:00 PM EDT Prostate cancer metastatic to bone [facility] Prostate cancer metastatic to bone PROSTATE SPECIFIC ANTIGEN TOTAL <td>PSA, TOTAL AND FREE</td><td>STAT</td><td>11/16/2020 3:15 PM EDT</td><td> Prostate cancer metastatic to bone</td><td> </td> 11/16/2020 03:15:00 PM EDT Prostate cancer metastatic to bone [facility] Prostate cancer metastatic to bone COMPREHENSIVE METABOLIC PANEL <td>COMPREHENSIVE METABO LIC PANEL</td><td>STAT</td><td>11/16/2020 3:15 PM EDT</td><td> Prostate cancer metastatic to bone</td><td> </td> 11/16/2020 03:15:00 PM EDT Prostate cancer metastatic to bone [facility] Prostate cancer metastatic to bone LAB RESULTS (OUTSIDE/HISTORICAL) <td>LAB RESULTS (OUTSIDE/HISTORICAL)</td><td></td><td>11/08/2020 10:31 AM EDT</td><td></td><td></td> 11/08/2020 10:31:00 AM EDT [facility] LAB RESULTS (OUTSIDE/HISTORICAL) <td>LAB RESULTS (OUTSIDE/HISTORICAL)</td><td></td><td>11/08/2020 10:30 AM EDT</td><td></td><td></td> 11/08/2020 10:30:00 AM EDT [facility] RADIOLOGY REPORT <td>RADIOLOGY REPORT</td><td ></td><td>11/08/2020 10:27 AM EDT</td><td></td><td></td> 11/08/2020 10:27:00 AM EDT [facility] RADIOLOGY REPORT <td>RADIOLOGY REPORT</td><td ></td><td>11/08/2020 10:26 AM EDT</td><td></td><td></td> 11/08/2020 10:26:00 AM EDT [facility] BONE &/JOINT IMAGING WHOLE BODY <td>NM BONE SCAN IMAGI NG WHOLE BODY [id number]</td><td>Routine</td><td>10/05/2020 12:59 PM EDT</td><td> Prostate cancer metastatic to bone</td><td> </td> 10/05/2020 12:59:00 PM EDT Prostate cancer metastatic to [facility] Prostate cancer metastatic to bone BLOOD COUNT COMPLETE AUTO&AUTO DIFRNTL WBC COUNT <td>C BC AND DIFFERENTIAL</td><td>STAT</td><td>08/20/2020 10:48 AM EDT</td><td> Prostate cancer metastatic to bone</td><td> </td> 08/20/2020 10:48:00 AM EDT Prostate cancer metastatic to [facility] Prostate cancer metastatic to bone PROSTATE SPECIFIC ANTIGEN TOTAL <td>PSA, TOTAL AND FREE</td><td>STAT</td><td>08/20/2020 10:48 AM EDT</td><td> Prostate cancer metastatic to bone</td><td> </td> 08/20/2020 10:48:00 AM EDT Prostate cancer metastatic to [facility] Prostate cancer metastatic to bone COMPREHENSIVE METABOLIC PANEL <td>COMPREHENSIVE METABO LIC PANEL</td><td>STAT</td><td>08/20/2020 10:48 AM EDT</td><td> Prostate cancer metastatic to bone</td><td> </td> 08/20/2020 10:48:00 AM EDT Prostate cancer metastatic to [facility] Prostate cancer metastatic to bone BLOOD COUNT COMPLETE AUTO&AUTO DIFRNTL WBC COUNT <td>C BC AND DIFFERENTIAL</td><td>STAT</td><td>05/21/2020 10:07 AM EST</td><td> Prostate cancer metastatic to bone</td><td> </td> 05/21/2020 10:07:00 AM EST Prostate cancer metastatic to bone [facility] Prostate cancer metastatic to bone PROSTATE SPECIFIC ANTIGEN TOTAL <td>PSA, TOTAL AND FREE</td><td>STAT</td><td>05/21/2020 10:07 AM EST</td><td> Prostate cancer metastatic to bone</td><td> </td> 05/21/2020 10:07:00 AM EST Prostate cancer metastatic to bone [facility] Prostate cancer metastatic to bone COMPREHENSIVE METABOLIC PANEL <td>COMPREHENSIVE METABO LIC PANEL</td><td>STAT</td><td>05/21/2020 10:07 AM EST</td><td> Prostate cancer metastatic to bone</td><td> </td> 05/21/2020 10:07:00 AM EST Prostate cancer metastatic to bone [facility] Prostate cancer metastatic to bone BLOOD COUNT COMPLETE AUTO&AUTO DIFRNTL WBC COUNT <td>C BC AND DIFFERENTIAL</td><td>STAT</td><td>02/19/2020 2:57 PM EDT</td><td> Primary prostate adenocarcinoma</td><td> </td> 02/19/2020 02:57:00 PM EDT Primary prostate adenocarcinoma [facility] Primary prostate adenocarcinoma PROSTATE SPECIFIC ANTIGEN TOTAL <td>PSA, TOTAL AND FREE</td><td>STAT</td><td>02/19/2020 2:57 PM EDT</td><td> Primary prostate adenocarcinoma</td><td> </td> 02/19/2020 02:57:00 PM EDT Primary prostate adenocarcinoma [facility] Primary prostate adenocarcinoma COMPREHENSIVE METABOLIC PANEL <td>COMPREHENSIVE METABO LIC PANEL</td><td>STAT</td><td>02/19/2020 2:57 PM EDT</td><td> Primary prostate adenocarcinoma</td><td> </td> 02/19/2020 02:57:00 PM EDT Primary prostate adenocarcinoma [facility] Primary prostate adenocarcinoma Results ID Date Data Source [id number] 02/11/2021 02:49:37 PM EDT [facility] Name Value Range Interpretation Code Description Data Belinda rce(s) Supporting Document(s) Progress Note [facility] GVQNOn2cJhWEWaEb75/HIJjjVGWbv8AgAXpiAEs6KOtxUEXrT6IiTGP7pP9dQQO4XAlGIqTqHnScOIB7 lbm [file] ICAgICAgICAgICAgICAgICAgICAgICAgICAgICAgICAgICAgICAgICAgICAgICAgICAgICAgICAgICAg ICAgICAgICAgICAgICAgICAgICAgICAgICAgICAgIC ANCiAgICAgICAgICAgICAgICAgICAgICAgICAgICAgICAgICAgICAgICAgICAgICAgICAgICAgICAgIC AgICAgICAgICAgICAgICAgICAgICAgICAgICAgICAgICAgICAgICAgICANCiAgICAgICAgICAgICAgIC AgICAgICAgICAgICAgICAgICAgICAgICAgICAgICAg ICAgICAgICAgICAgICAgICAgICAgICAgICAgICAgICAgICAgICAgICAgICAgICAgICAgICANCiAgICAg ICAgICAgICAgICAgICAgICAgICAgICAgICAgICAgICAgICAgICAgICAgICAgICAgICAgICAgICAgICAg ICAgICAgICAgICAgICAgICAgICAgICAgICAgICAgIC AgICANCiAgICAgICAgICAgICAgICAgICAgICAgICAgICAgICAgICAgICAgICAgICAgICAgICAgICAgIC AgICAgICAgICAgICAgICAgICAgICAgICAgICAgICAgICAgICAgICAgICAgICANCiAgICAgICAgICAgIC AgICAgICAgICAgICAgICAgICAgICAgICAgICAgICAg ICAgICAgICAgICAgICAgICAgICAgICAgICAgICAgICAgICAgICAgICAgICAgICAgICAgICAgICANCiAg ICAgICAgICAgICAgICAgICAgICAgICAgICAgICAgICAgICAgICAgICAgICAgICAgICAgICAgICAgICAg ICAgICAgICAgICAgICAgICAgICAgICAgICAgICAgIC AgICAgICANCiAgICAgICAgICAgICAgICAgICAgICAgICAgICAgICAgICAgICAgICAgICAgICAgICAgIC AgICAgICAgICAgICAgICAgICAgICAgICAgICAgICAgICAgICAgICAgICAgICAgICANCiAgICAgICAgIC AgICAgICAgICAgICAgICAgICAgICAgICAgICAgICAg ICAgICAgICAgICAgICAgICAgICAgICAgICAgICAgICAgICAgICAgICAgICAgICAgICAgICAgICAgICAN CiAgICAgICAgICAgICAgICAgICAgICAgICAgICAgICAgICAgICAgICAgICAgICAgICAgICAgICAgICAg ICAgICAgICAgICAgICAgICAgICAgICAgICAgICAgIC AgICAgICAgICANCjw/fGUoU2onjDOnltG7X0vrBx3SNd4TTL2xv8ObOKUlMTaldoPmXifFSpXjKUBoYh hDDph8ILvtJU7JjSWdB6KpA8CqYGcwXB5RQDMmVDOznFXkGTIcHILxZtV1BNBkFScoEK5LmQRaDZdkCN EhMLZaGZ2DYCKdB394ogKkAU9PUo8JJePnOI1ovs2F LMbyAAZoQyhKKna8UDfxQW2HrALriLVqSEVpQGXYZeXsD1rzh8QgQiXrXYDFTVjfZM8Cy0AgiIJzRKp+ Sc4ERS1km3JtLWieEWBpUZ1kya4FQBiUHaEwK1ByzXecCXQdl0arGUDaJU5lbUGrBCQ7ANDkxWJVDT5e QN5cbadgIVFaNMFyWFPyKR1zFNTxWXIiKhPaWKFEDR 6MJBErUHJfaVHtPCOvGKHNSQ9FFPmpZYI4NLNaixMyrLCcRChcST7SLWHyirLgJWqkGURBWUh+Pg0KZW 2tb3GtWVztTTQmBD0jon9BTJaSHeBvG3P0iUTvB7F9JEsgCw6TOFMtESBcJVouMTCAISrjVT7ICH1ysa Z7OW7BhABaXSAbGADynKFxOMs9Y17ajEPeSJeaBO2M ICA+Immanuel+Hc7XCYAlWVYbXMRdQpKmIECMTqMgK1HuZ1POu4BwR2SkCL82nSlmpmOpIScwLB5ZOL2eTJRh GDNSLQ6IrPTooN3qvvIwTLBxJLXDEcOwU31qcIRtYWJcABH4DPLzTk7LFPJgO3IjehXnsQcwbqGkRVXv EBHMCR6ZKBcrjjQznZGfhTphIM67aPaqQF3XSq7ZZs IpDX2lzu1NqISrEn1BMMUoXg2FOJBtRWNmRBJcSLA2LYWnEjChWFpgIXJvBZFiVCY5SJQaSOOiKD7PPb MiDQKjYXk5EzJbCBJeQNRqsc3CTNMuZHGcIFX0ASAcHEUfEWBzSQpqMVDpGBQnGGY4GZUoFTZoUH0LXx EpHGLgDCHcWOiiCDYrMBVecr4PEYFwFERpYbGqWgTq YVDpASCySVvfQGIxLDCiOTgvNEOtNETdXT2TWhQzLTGaAEB4IqlbGHVhKHIsxz8AKSOcVNZfWtp1FmNn UZWbBHImPCxcIWXlGHX5YYN6FVIyJZUmRE4TJxSqBYHlWTMeBLeyNTRjLVEcli4ZCLQnIJKeHSF2PEZa NILmUCErGRqhAPIeZZI5WeQ4GFJyQOOeXN3HVrWoZU QxSWH1JTnqOGPhXBEpcc7GSQIgEDRcSuC5NGOfLIRyGOMzCIgfOMQaRKJ3TNN9FLDnOFPoXM1UJdVpDO MmVKq5WZMlVEJkCMSfnb2ETRNkYRBxNed7UQTgFEAqMBElXZfqMVCgRZA4GvhfUSDnOWJhCV9DJrBfKA InTHk9YyWaASIgHTWpsf5DFXHdSYNzHCTvFHUwDLMw VIQsEDc9ynQpiPHmSUe4QH1OA5VhtfBdBdFROz5Ip707NRUeXUUmSq5PM2tmQp1oLPIsAKLEZr8TBJq9 LoQkKFJvSOJiOmAfXETlBlwlJZRoOJQ8FJM8F9BnAgL+SWo7DlAcB2WgOvYiPCX7OkAdNLBvHhAsYOwt WJJuWpRwHo2fTPPZBf0+WDmwlZBnmZhjAMKINtZ2UWS3RZnaPOIFMc0E ID Date Data Source [id number] 02/11/2021 02:49:32 PM EDT [facility] Name Value Range Interpretation Code Description Data Belinda rce(s) Supporting Document(s) Progress Note [facility] XSHREm7tMcYNBgKk45/MGHakPAVcs0CwNMeeUUp7LKwyZKZmF7JmBLZ6uR3aVWY3PQpCXnRwHsHeQQW8 lbm [file] Cg== ID Date Data Source [id number] 02/08/2021 05:05:32 PM EDT [facility] Name Value Range Interpretation Code Description Data Belinda rce(s) Supporting Document(s) Progress Note [facility] TUTCRe1qPeMGNuWr19/TKJhfQVVhm5IoRSckCXe7PYbsVGLtM8LlJMK9dG8dQDU7QPxEAdAdLyOvASZb lbm [file] XSANCj4+TMgwxFZxmOkgIQOIDeK3FKw1EBunBJMQHk1S ID Date Data Source [id number] 02/04/2021 02:19:00 PM EDT [facility] Name Value Range Interpretation Code Description Data Belinda rce(s) Supporting Document(s) SARS coronavirus 2 RNA [Presence] in Res piratory specimen by [place] with probe detection [facility] This lab was ordered by [facility] a nd reported by [facility]. ID Date Data Source [id number] 02/01/2021 05:07:16 PM EDT [facility] 9.5Serum levels of PSA should not be int erpreted as absolute evidence of the presence or absence of Cancer. Results obtained with different methods cannot be used interchangeably. This method is manufactured by [employer] and is an electrochemiluminesence immunoassay. Name Value Range Interpretation Code Description Data Belinda rce(s) Supporting Document(s) Leukocytes [#/volume] in Blood by Automated count 5.2 10*3/uL 4-10 [facility] Erythrocytes [#/volume] in Blood by Automated count 3.13 10*6/uL 4.6- 6.[address] [facility] Hemoglobin [Mass/volume] in Blood 9.0 g/dL 13.5-[address] [facility] Hematocrit [Volume Fraction] of Blood by Automated count 27.0 % 4 1-[address] [facility] Erythrocyte mean corpuscular volume [Entitic volume] by Auto mated count 86.2 fL 80-96 [facility] Erythrocyte mean corpuscular hemoglobin [Entitic mass] by Automated count 28.8 pg 27-33 [facility] Erythrocyte mean corpuscular hemoglobin concentration [Mass/volume] by Automated count 33.4 g/dL 32.0-36.[facility] distribution width [Ratio] by Automated count 18.1 % 11.5-14.[address] [facility] Platelets [#/volume] in Blood by Automated count 341 10*3/uL 150-400 [facility] Differential cell count method - Blood [facility] Neutrophils/100 leukocytes in Blood by Automated count 73 % [facility] Lymphocytes/100 leukocytes in Blood by Automated count 15 % [facility] Monocytes/100 leukocytes in Blood by Automated count 10 % [facility] Eosinophils/100 leukocytes in Blood by Automated count 1 % [facility] Basophils/100 leukocytes in Blood by Automated count 1 % [facility] Neutrophils [#/volume] in Blood by Automated count 3.84 10*3/uL 1.8-[address] [facility] Lymphocytes [#/volume] in Blood by Automated count 0.76 10*3/uL 1.2-[address] [facility] Monocytes [#/volume] in Blood by Automated count 0.52 10*3/uL 0-0.8 [facility] Eosinophils [#/volume] in Blood by Automated count 0.03 10*3/uL 0-0.5 [facility] Basophils [#/volume] in Blood by Automated count 0.03 10*3/uL 0-0.2 [facility] Nucleated erythrocytes/100 leukocytes [Ratio] in Blood by Automated count 0 /100{WBCs} 0-0 [facility] ID Date Data Source [id number] 02/01/2021 05:56:04 PM [facility] 9.5Serum levels of PSA should not be int erpreted as absolute evidence of the presence or absence of Cancer. Results obtained with different methods cannot be used interchangeably. This method is manufactured by [employer] and is an electrochemiluminesence immunoassay. Name Value Range Interpretation Code Description Data Belinda rce(s) Supporting Document(s) Prostate Specific Ag Free [Mass/volume] in Serum or Plasma 1.5 ng/mL [facility] 15.2 ID Date Data Source [id number] 02/01/2021 06:14:44 PM [facility] 9.5Serum levels of PSA should not be int erpreted as absolute evidence of the presence or absence of Cancer. Results obtained with different methods cannot be used interchangeably. This method is manufactured by [employer] and is an electrochemiluminesence immunoassay. Name Value Range Interpretation Code Description Data Belinda rce(s) Supporting Document(s) Albumin [Mass/volume] in Serum or Plasma by Bromocresol green (BCG) dye binding method 4.0 g/dL 3.5-5.2 [facility] Bilirubin.total [Mass/volume] in Serum or Plasma 0.3 mg/dL <1.2 [facility] Calcium [Mass/volume] in Serum or Plasma 13.3 mg/dL 8.6-10.0 [facility] Results called to and read back by ON C ALL DR GEE AT [id number] /[id number] Chloride [Moles/volume] in Serum or Plasma 89 mmol/L 98-[address] [facility] Creatinine [Mass/volume] in Serum or Plasma 0.90 mg/dL 0.70-1.20 [facility] Glucose [Mass/volume] in Serum or Plasma 112 mg/dL 70-140 [facility] Alkaline phosphatase [Enzymatic activity/volume] in Serum or Plasma 156 U/L 40-[address] [facility] Potassium [Moles/volume] in Serum or Plasma 3.3 mmol/L 3.4-5.[address] [facility] Protein [Mass/volume] in Serum or Plasma 7.4 g/dL 6.4-8.3 [facility] Sodium [Moles/volume] in Serum or Plasma 131 mmol/L 136-[address] [facility] Aspartate aminotransferase [Enzymatic activity/volume] in Serum or Plasma 30 U/L <40 [facility] Urea nitrogen [Mass/volume] in Serum or Plasma 10 mg/dL 8-23 [facility] Osmolality of Serum or Plasma by calculation 272 mosm/kg 275-[address] [facility] Creatinine/Urea nitrogen [Mass Ratio] in Serum or Plasma 11 [facility] Bicarbonate [Moles/volume] in Serum 27 mmol/L 22-29 [facility] Alanine aminotransferase [Enzymatic activity/volume] in Seru m or Plasma 11 U/L <41 [facility] Anion gap 3 in Serum or Plasma 15 mmol/L 8-15 [facility] Glomerular filtration rate/1.73 sq M pre dicted among non-blacks [Volume Rate/Area] in Serum or Plasma by Creatinine-based formula (MDRD) >[address] [facility] Glomerular filtration rate/1.73 sq M pre dicted among blacks [Volume Rate/Area] in Serum or Plasma by Creatinine-based formula (MDRD) >60 [facility] ID Date Data Source [id number] 01/25/2021 11:43:33 AM EDT [facility] Name Value Range Interpretation Code Description Data Belinda rce(s) Supporting Document(s) Progress Note [facility] FMBYAx5mGlDNNaKx23/WZZedIYMup2PlBNflEZj7LJpaVLCuK0SrXEG6yD0vEIP4ILvAAfHjYuSgLXS1 lbm [file] [employer]/1MHfmdzKMAieAFFQEGz7mQYIlAtJG+aRsncHF7O [file] LgNzMzImSUglTTKMHm9G ID Date Data Source [id number] 01/25/2021 11:43:28 AM EDT [facility] Name Value Range Interpretation Code Description Data Belinda rce(s) Supporting Document(s) Progress Note [facility] WTIXQe1dUqBPPxUa09/FPKhkYQXek3BbUFlrFVc9AEfmLKKaT3ZcPDV9xN5hMZB6OKwWGmZkTrZvLDL0 lbm [file] dGE+DQogICAgICAgICAgICAgICAgICAgICAgICAgICAgICAgICAgICAgICAgICAgICAgICAgICAgICAg ICAgICAgICAgICAgICAgICAgICAgICAgICAgICAgIC AgICAgICAgICAgICAgDQogICAgICAgICAgICAgICAgICAgICAgICAgICAgICAgICAgICAgICAgICAgIC AgICAgICAgICAgICAgICAgICAgICAgICAgICAgICAgICAgICAgICAgICAgICAgICAgICAgICAgDQogIC AgICAgICAgICAgICAgICAgICAgICAgICAgICAgICAg ICAgICAgICAgICAgICAgICAgICAgICAgICAgICAgICAgICAgICAgICAgICAgICAgICAgICAgICAgICAg ICAgICAgDQogICAgICAgICAgICAgICAgICAgICAgICAgICAgICAgICAgICAgICAgICAgICAgICAgICAg ICAgICAgICAgICAgICAgICAgICAgICAgICAgICAgIC AgICAgICAgICAgICAgICAgDQogICAgICAgICAgICAgICAgICAgICAgICAgICAgICAgICAgICAgICAgIC AgICAgICAgICAgICAgICAgICAgICAgICAgICAgICAgICAgICAgICAgICAgICAgICAgICAgICAgICAgDQ ogICAgICAgICAgICAgICAgICAgICAgICAgICAgICAg ICAgICAgICAgICAgICAgICAgICAgICAgICAgICAgICAgICAgICAgICAgICAgICAgICAgICAgICAgICAg ICAgICAgICAgDQogICAgICAgICAgICAgICAgICAgICAgICAgICAgICAgICAgICAgICAgICAgICAgICAg ICAgICAgICAgICAgICAgICAgICAgICAgICAgICAgIC AgICAgICAgICAgICAgICAgICAgDQogICAgICAgICAgICAgICAgICAgICAgICAgICAgICAgICAgICAgIC AgICAgICAgICAgICAgICAgICAgICAgICAgICAgICAgICAgICAgICAgICAgICAgICAgICAgICAgICAgIC AgDQogICAgICAgICAgICAgICAgICAgICAgICAgICAg ICAgICAgICAgICAgICAgICAgICAgICAgICAgICAgICAgICAgICAgICAgICAgICAgICAgICAgICAgICAg ICAgICAgICAgICAgDQogICAgICAgICAgICAgICAgICAgICAgICAgICAgICAgICAgICAgICAgICAgICAg ICAgICAgICAgICAgICAgICAgICAgICAgICAgICAgIC WzVBQoSGKeGBZtLJJfPHThDAQxDQVfKVw5X9pbEOLcKXShFK0pHWm0Eo4+QPsTQxYmVUP7vxMbqV9YAD 5yq9QdDWxfNJGcg6RzUYs2TF2LMLUaCCrrGF3WFYxcsy1DKJWbDRQexPPSl5inEcBfEZV9TNArYmtaZI 3HQBYyT0qjkjDaLGIwBXQJOWpkNKQNNYDeCQYgTpAa XpTiFWQmWFEdAECJDLP7WBGbKjFqZEFvRPZaNlFjRVDLZR2JUuHeS9KksO80TSqFRs4+DQplbmRvYmoN YnMrEWRzq7NnLRx2CW9RJAQwUjwnh9VqNARqXPLMYXqrRR2YYTM9TNZjYAWwJq0BXTNaM441zyVvVK7I Iu6XBeRkHM5zfm6DTRMeOCCiMicBWvv1JRgjJC2JaB LuFQdDls0hsnWvytIXv8WvhvZkoTNFVW1mBBDHTWwklWFdATDbCJ8FRAF3SFkoJOBiYiGxBNLmPOgsPE RIQPuNCeRhV9Oru0KaZaF7XUCmRjQcYFmiBGIoRFunQP21hTksUZ0AODAwVPHsOZ49UHGoOCEvZz4LHr 0ABfFiSA4sel5ORmIwHC2nmh8ATMxBJsZqB7N4yHAc T3Xbmd31QN5NnUH1oQGgCD4RlO7wHU9Tc2MjJWWmDdLzWWQcAWOtJMGuYLOeIpVpFL3HZVOgZiXgbLEe RLNxDCI1QAXjVyQ3SCPvTY4AKMZhQXP6DE5EQQ5JKyykJ3EDEAyluQcsVqIOFNY/QUNUSVZJVFkmTVJf N73KY3JDTBfILyuiXJhFKckpKx0gPPu+Fr5GBB8mm8 IdQGs8IbDuMT4eef7DGPdKUqMuE7V9bQMxH2B4VUqtXd9WLCPhAEGvZcxhNYYYPUzpLG7HER5vwpD9SC 2XcEOfLVFmSNPbxMRpIEq1Z86isWVoDRsfVP1FDNM+Immanuel+Pi7TXTIuZTLmCYSiJlEdRHUWEwQsS4NrT7 NBm7ZlO9BtXE01eIxncuXtMRdiKY1RDK0iPXTzMPQY GX2JqHUfhE5uvzO2LVUzWVWOEmJxG70chELpLMMjSFL2CIRhFq1ZKMBqG1BhswUudBdriiXbHMNrQJMW TZ5HOIygorRscZNepWaoJN25yHklGS3ZKg7LWoEaJJ4wvo5GkPQbPm7FRQO5Lt0MYOYtSFRjGJTgGBS0 QTLyGuTiIOfiKVTqYDAoHUM1MRWyCTOgVJ6YHqDaFB CfNDK5TcMhBKEeKCZokl1YUGAbMSL0AuN8HiRvBHSsLWNaWEtxZSBtWAHuRMC3ETTdPMSvWP4GKgDzYY JyKGL3TTAhOCLqEOJomy6UYFIkUPS7NqG0OMPbUCHeLFLuBIcmKAFfPXP9IRD9NDYuTYTcYS7VKgLuRL FsELejDCAtENZaECSyyo6NBLSxVYIsOJV2QxAmMRLt MSSzEHfaTIYnRFThJJG5ZBSjAQBgWN0FHtVoPBJwXXMdXeRcPGUiCZQdzs7JPZCuQTRwVKT3RWXgPKPd FBDyOFviQSDfPCW1PovvFWAbBUJpHB0RNlAxDZXuJQg4DNRpWYPlXWPywy9NKYAkQKXeFIPwQmPcSLCp CAPtNXdmPLAlYKNyXNQnPKXlAPWqWD3SDfQvQGDwLt L6DDaxFPBmWVOrea5BRRWmTNLjNOFiKtYaTNIfKWOvVJajKOMkHTV4WvAhXWHrBXOpSE1SDlIsRROqSf w7KJdxRRQaTLOzft9ZEVJjLQPpTkk0YNVnSWPjEQFrWNdeSLJiJGO4YqL0MSPxKYDjUP0MLrQgHBWgNy i6HGRzONSnKSCihu9LVXKqFUDqYGK1TXZqYYIiKYKs TQgeSCVwUXKjJEO3IIKyXNUkTZ2LHlCvGOGaRzDqXZGyBHMfDKQspc2HAUUiEAKaIDY2FLTvEHFiCSYg UWnsFCEsAFVyCXn9YDKcABDbOU6OYhJcWBXbQTGwIMonXXVcJORzwa7HGWUrXIX4OiTuSGLrCDDlVXWv IAsuHBQiDKYlEfH1PSWqVOXcIB0UWrGgFNVcNNC5ZI KmGYUsLTMtpz7BSEEoTZY8Gkc4HCOkBRRmHVUcDUiqBJUdWJJbJWV2UYLbCVLzXH5JZxEzOIKgKRAbAS UhFXZhZSTxkh0SNEGpSPW1HXG8VCQcBMOeOTIaTLgbJIGyYXM8InU4AMEcEFZkQZ3GXjZfDQNdBZF7LT NeYZFbBYAkbr0FXAZzCPA1FAo0JrCxGZPqKQJgBNbn EOJiGOM0AoV5XPOgKSTrVK1OXkSqSAQkXVv1UFTgZOMsRHPleq5PUKFoQXL6FdaaPgGmDKBfEJAxBUx7 vlIleSKtWYa5QB3GZ5SwapWwFDMDGn0Hf269CJOrBBIbFa9GS6bmAi9dZBRuOBCRIz9XDHm9FNKiLQIc MlYgLLt9RUY7N1AiYaTkPCQyPLO1WDP4OxE+IDxlMm TiNKVaXfU2YSf8JgroVKCpQCBwItDtQEU4OKc0NC3yHMBJMm7+CEqglLZpqLqzPJTFHeE6IFkhPAcqMW VPRg0K ID Date Data Source [id number] 01/20/2021 07:50:[address] [facility] Name Value Range Interpretation Code Description Data Belinda rce(s) Supporting Document(s) Progress Note [facility] GORCOy9pGlQYSzEl66/TSGzqVOKtx1TmGOawDEj9EYecPYOgA5AfNUF1tN1yMAT7NXnHLmLoQeShEFAb lbm RzRytLJdQyDCQoVvlXOyTaDTdsLpldhZBpUG0YqGW7KVYpC36wBILwNRLkV5UhKKT8LiZ+Bn6QWHUobE UhLR3SZxfM5Ghef4qTFp9csU/CQBTQ5eYX3+XNNMWtnNvxmVZ5uM0oo1B1Ho3ORmmX5RW9WzUnW9/h8S pMu04cpebMRO0m+f5z9wWakvxf//5SGHlPOED4C/3W U5yM5+DPxoFZVTXwgu7eTvF9PEb+5nxIQF3R+/fSv8kg8TjOFbZaisuLs6ysSnONAMsMPgqlg/jzIpzN FmRsuNFQlqE4M/iYy3rVIZtTDy2v//CYDu3HYzxxz84GQHFbKsY+OL7YUfBoXDfY3BmxNNcye8E09uuU IzMKm13RJ7k6FWsfBxJRxgvA2zRts8uSGHI2dRcaFh IIXlwfljxY92ABCIJUiS+Qe4veI0rfZ1xEAzFuOn1dmoP6lkjtmk4L3bwZZX4XYx3ALEgKooQ2Stq0Hg 7Bj1XlGyfTWh8o8VOWofrfX2HgN9nKEx9Yo3EUa6dZQIQUj+XOa6kV7S2iPX7EQ4kgyY9Hi/H9oxwp51 /xplXwhVSXYBJiDBnR22MpCnXwoHbC9tcG1PRfSbJy kEma3cKcLn3ltyTNPtFBIFTT0wtlS0X/[place]+SrbhJA4skFNNBGTNruFPsMYic+WgECWZgsGkoFyvpEII [file] ID Date Data Source [id number] 01/17/2021 05:06:14 PM EDT [facility] Name Value Range Interpretation Code Description Data Belinda rce(s) Supporting Document(s) Discharge Summary [facility] HOKBWw4eXoSDOtQy15/SMFmiCLKzs2JvWDhmEWh1JZjiLWOfM7XhDLN7dD8fGFO8DBlFJqPlAzRhSNIb lbm [file] 7hU+W98b2nNmJG9fyD0KrcMm5Xpjm27mtIm8eir/TCLs/kC2kpyaBMs5HINx1Fk/5wGDP/J++ShQzT 86q8TP0YCTmlwz9eLQe90D8ECbwi4I25vqFNdwmGuuBxZ1XsJmIZKnNhjldnZPf20jhtNRWWublQwbiA 3tF4OPUK8AykbXHuNfJpgvB5/q7vrZM1uDf8Jl7914 x7bAt+siu8HTWoviwjPY2yALWrqsaWcz37RhYltrfqlzHdnYCUhL0iuxaA5w2tKz8rQELwabfATSsMnJ qRX5CkjySqRdzvFsVMLanHzOADeTqALQ1UiOba6XarMoMKxlPw+TRbln9+/tpy4JiA20vKHbDFVbsrYR S4L7lq5+talFDp1UZkagPmOkgY8d0xaXsRTMr7+maria guadalupe [file] ICAgICAgICAgICAgICAgICAgICAgICAgICAgICAgIC AgICAgICAgICAgICAgICAgICAgICAgICAgICAgICAgICAgICAgDQogICAgICAgICAgICAgICAgICAgIC AgICAgICAgICAgICAgICAgICAgICAgICAgICAgICAgICAgICAgICAgICAgICAgICAgICAgICAgICAgIC AgICAgICAgICAgICAgICAgICAgDQogICAgICAgICAg ICAgICAgICAgICAgICAgICAgICAgICAgICAgICAgICAgICAgICAgICAgICAgICAgICAgICAgICAgICAg ICAgICAgICAgICAgICAgICAgICAgICAgICAgICAgDQogICAgICAgICAgICAgICAgICAgICAgICAgICAg ICAgICAgICAgICAgICAgICAgICAgICAgICAgICAgIC AgICAgICAgICAgICAgICAgICAgICAgICAgICAgICAgICAgICAgICAgDQogICAgICAgICAgICAgICAgIC AgICAgICAgICAgICAgICAgICAgICAgICAgICAgICAgICAgICAgICAgICAgICAgICAgICAgICAgICAgIC AgICAgICAgICAgICAgICAgICAgICAgDQogICAgICAg ICAgICAgICAgICAgICAgICAgICAgICAgICAgICAgICAgICAgICAgICAgICAgICAgICAgICAgICAgICAg ICAgICAgICAgICAgICAgICAgICAgICAgICAgICAgICAgDQogICAgICAgICAgICAgICAgICAgICAgICAg ICAgICAgICAgICAgICAgICAgICAgICAgICAgICAgIC AgICAgICAgICAgICAgICAgICAgICAgICAgICAgICAgICAgICAgICAgICAgDQogICAgICAgICAgICAgIC AgICAgICAgICAgICAgICAgICAgICAgICAgICAgICAgICAgICAgICAgICAgICAgICAgICAgICAgICAgIC AgICAgICAgICAgICAgICAgICAgICAgICAgDQogICAg ICAgICAgICAgICAgICAgICAgICAgICAgICAgICAgICAgICAgICAgICAgICAgICAgICAgICAgICAgICAg ICAgICAgICAgICAgICAgICAgICAgICAgICAgICAgICAgICAgDQogICAgICAgICAgICAgICAgICAgICAg ICAgICAgICAgICAgICAgICAgICAgICAgICAgICAgIC VgDAXiSEWgWBAsBAEyZHTzLLItOAGsGNLiLVEyWTNlTBXcRSYqEUZgULDbMMZkKQm4H2fkHZHkTGYtUY 8vVKv2Tk6+IKcQJaZvUEE0hxLfoF1YCM1lh8UnDQcaSCAer0ZxYMx0WD2UOWAsXJefFD8TETjuie9IGM UtRHDfdWCFd4evOrSmGKG0LBEkOrwkJJ1KJMNwX0tw wmWfUWYmYAAEZYqdMCXUQEfcNHDCUSNcONRgZmFqAbXdGADjSJUuVEBKJRA5TRXgMhBfBFOjGUZdLD0E LRHdR513xvWsAI1NSs4ECpPwAC1cqg3KCepsVDZtGlmWWae3TQuzOF6WrJWkrCN3FJVhIJZFVzTnA3tb f7WnDIZnFHIBIOleQA4Ln9ZmlPXcERn+Qh6RIX7bl4 RlOQc8EBHyYO8jfl6YHGtQCsPjI4GtjBmgNSFeb2NeKAJfZPCCfB4tTHD6PWL3GSRuqJKpGWBzzYksJE VHNSKbsOS9XqIvGuSbBmIaREM9RjOrFU7tODbtPE3HRFO7GArxYMHbAFKrS7oXAjYoYWE3UaGuyEesRQ 7ZCwIbK3CjvqZxjLAyJTOlBFLZTi3+DQplbmRvYmoN SxFlJMCnk5GuZUl5SK7GMNHwRTuwFB3GAKAsoU7cGIfuHU2LVeZzMhFdWNUZKaUrG68nrWXqIVr7L6Cm YmVkZGVkRmlsZXMgPDwvTmFtZXMgWyBdDQogID4+ID4+KMhjJZ8IUBcdhiYhGSYwBx0HKJVoWTMoVG9e LRBbWOWtX7E1aIoeJUZSReWoF8jvpesnNS7bMYBrZ0 19bTztotRwTBV3BFRbZi6UDSImMMJ2KPMxqXLgXvutZBVHJPlbUL2YjBRgNDI5pY8jUHchGRNrSALtR8 oGZwQejLupGA87cCffvzZrtDUhQCh+Vv5OCN2oy3XlYMa8mbPuGAolSZUrPKjrUIUuHZVlUVOyFFN9ZM M8LLZZJlNnRTBpOBHiUZtnPOXySNOfnp5AHEWhSFH2 OLmkBLNeKFTyCJXwGAoaURIjZKFiKqWdTFJpBUGtXF0PQoIhZQMmNDRlEOehPWVwKIIqui6XQPZlZETm JMJ3AtCzQBLtKZKbAZqxEKMeBLW3UMxsHBPjBBYyXU9HYzNeGFRzHMs5EGCnDPStCSFnba4ACTHdVPLu GGk8UdTeZHUtDRZgAUdxMGPcQHP5DqB2VUPfESEuTY 0GTfArKGDkFKC8RjqoNEKyUMYtlc7KJBKqFLWlVco9WzXnFDZrYXCqAOihSMNmTQG8CZa2UNNmFNXaVH 6FHcIfZTCsGsXyUPJqPELkCYExnk7VUCCbTXLdPaStJFSkOPJqGBAwRTzcLZOpVSA9JDRmCVJwDZLlVL 7XTrOwYOCbJiNmAUddWGUdYFWvqc6SNMIgHGYuTNL4 JBYbEBXnDRGzWZtqZBYnASL0FKd4RKMgECRwEY9WIoSsXMNvDba5JtjuJNKdERMheg2FTOFmEVGvDEtx JuDyWEJvZAWcCOjuAQIrCLVmBsyxQAKjVBRgLY2QTtAuLDZzBcX7CNCtWEKlNAYbyy9VSXEvDNKcTCG0 MkVwDFXzCLAaYIleJKQlMFKqIBXlLKIuXJXjGH2TQp SsAYEiCzLlPgFdOIBfDTJexx0PRTLbVKQrGpGfApVuIOFxCLZyXSuzGALyKXYdPffiQFPjBWWuQV3PWj BfGKFnPbB3NsvcLRKlCWIony1ENVLrOCTbTjx4AsOiUKYhLEMlRRfkPUUxODV9JlEuNQLqRBWvQT4DAk CmPMAvXqZ9TnPnHYIvTGZshr5MBTAaCWMsKWKgRrAj WGYzQWFlLAxuWIKpVEY3PAkqGBHxNGLfGO4XCiNiJRFkBVCqDHTbJJWkOUThxm5JDKLwCCA7GQArRsKr IFAbOUCjPRdmPYLcJYPnNaZaVALuHJBeVL2NMeXqZVStFPU5CHlxFHUaHXTubh8QOZQiFYJ3TXSnTiMr KZAvMKWjICpbJAQiMYIgBSI6UCCuTPWhVE3LAyJhOK OiNAY9OicrRRAzBGDzta2ENXNeNPD3PcNoAdUcLAVpGCTgYJo4yvTasWPdJVy1EG6GE0WdggRdPHMCDk 7Zb617RMAvWHSpNr8HS3mcQl1lNSAxGFNTSk4OQOh5AKYrS4T2BeMmBEQ1AJDkWwwdHZNjXKT4JaCiMK Q2OGU+FMwnECNqNBi8GGNePYmeX9M3SJL3EUV0JQmm JuT9MOH1CB1uSBHFIq3+IYlucQIisMusMQQKWoXqBgslIMzqROACFp5G ID Date Data Source [id number] 01/17/2021 09:26:35 AM EDT [facility] Name Value Range Interpretation Code Description Data Belinda rce(s) Supporting Document(s) Consultation [facility] CWMJKs0iUvRZCrOm11/KXIriOVEoe7ZiTRtrVJe5RZfjEELsE7JcKDP3sS5lKZE0HYaAIyMnLwRkBIPg lbm [file] 7dSTTDEu7+JLvgqBOghItxKHTFDfJ0XSSaQGgmELIDUb0E ID Date Data Source [id number] 01/17/2021 04:06:[address] [facility] Name Value Range Interpretation Code Description Data Belinda rce(s) Supporting Document(s) Leukocytes [#/volume] in Blood by Automated count 6.5 10*3/uL 4-10 [facility] Erythrocytes [#/volume] in Blood by Automated count 3.07 10*6/uL 4.6- 6.[address] [facility] Hemoglobin [Mass/volume] in Blood 8.8 g/dL 13.5-[address] [facility] Hematocrit [Volume Fraction] of Blood by Automated count 27.2 % 4 1-[address] [facility] Erythrocyte mean corpuscular volume [Entitic volume] by Auto mated count 88.6 fL 80-96 [facility] Erythrocyte mean corpuscular hemoglobin [Entitic mass] by Automated count 28.8 pg 27-33 [facility] Erythrocyte mean corpuscular hemoglobin concentration [Mass/volume] by Automated count 32.5 g/dL [facility].0-[facility] width [Ratio] by Automated count 15.6 % 11.5-14.[address] [facility] Platelets [#/volume] in Blood by Automated count 395 10*3/uL 150-400 [facility] Differential cell count method - Blood [facility] Neutrophils/100 leukocytes in Blood by Automated count 77 % [facility] Lymphocytes/100 leukocytes in Blood by Automated count 15 % [facility] Monocytes/100 leukocytes in Blood by Automated count 6 % [facility] Eosinophils/100 leukocytes in Blood by Automated count 1 % [facility] Basophils/100 leukocytes in Blood by Automated count 1 % [facility] Neutrophils [#/volume] in Blood by Automated count 5.03 10*3/uL 1.8-[address] [facility] Lymphocytes [#/volume] in Blood by Automated count 0.98 10*3/uL 1.2-[address] [facility] Monocytes [#/volume] in Blood by Automated count 0.37 10*3/uL 0-0.8 [facility] Eosinophils [#/volume] in Blood by Automated count 0.07 10*3/uL 0-0.5 [facility] Basophils [#/volume] in Blood by Automated count 0.03 10*3/uL 0-0.2 [facility] Nucleated erythrocytes/100 leukocytes [Ratio] in Blood by Automated count 0 /100{WBCs} 0-0 [facility] ID Date Data Source [id number] 01/17/2021 04:23:35 AM EDT [facility] Name Value Range Interpretation Code Description Data Belinda rce(s) Supporting Document(s) Bicarbonate [Moles/volume] in Serum 21 mmol/L 22-[address] [facility] Chloride [Moles/volume] in Serum or Plasma 110 mmol/L 98-[address] [facility] Creatinine [Mass/volume] in Serum or Plasma 1.16 mg/dL 0.70-1.20 [facility] Glucose [Mass/volume] in Serum or Plasma 101 mg/dL 70-140 [facility] Potassium [Moles/volume] in Serum or Plasma 3.6 mmol/L 3.4-5.1 [facility] Sodium [Moles/volume] in Serum or Plasma 143 mmol/L 136-145 [facility] Urea nitrogen [Mass/volume] in Serum or Plasma 7 mg/dL 8-[address] [facility] Anion gap 3 in Serum or Plasma 12 mmol/L 8-15 [facility] Osmolality of Serum or Plasma by calculation 294 mosm/kg 275-300 [facility] Creatinine/Urea nitrogen [Mass Ratio] in Serum or Plasma 6 [facility] Calcium [Mass/volume] in Serum or Plasma 9.3 mg/dL 8.6-10.0 [facility] Glomerular filtration rate/1.73 sq M pre dicted among non-blacks [Volume Rate/Area] in Serum or Plasma by Creatinine-based formula (MDRD) 67 mL/min/1.73m2 >60 [facility] Glomerular filtration rate/1.73 sq M pre dicted among blacks [Volume Rate/Area] in Serum or Plasma by Creatinine-based formula (MDRD) 77 mL/min/1.73m2 >60 [facility] ID Date Data Source [id number] 01/17/2021 04:23:35 AM [facility] Name Value Range Interpretation Code Description Data Belinda rce(s) Supporting Document(s) Magnesium [Mass/volume] in Serum or Plasma 1.5 mg/dL 1.6-2.[address] [facility] ID Date Data Source [id number] 01/16/2021 03:50:36 AM [facility] Name Value Range Interpretation Code Description Data Belinda rce(s) Supporting Document(s) Leukocytes [#/volume] in Blood by Automated count 8.8 10*3/uL 4-10 [facility] Erythrocytes [#/volume] in Blood by Automated count 3.02 10*6/uL 4.6- 6.[address] [facility] Hemoglobin [Mass/volume] in Blood 9.0 g/dL 13.5-[address] [facility] Hematocrit [Volume Fraction] of Blood by Automated count 26.7 % 4 1-[address] [facility] Erythrocyte mean corpuscular volume [Entitic volume] by Auto mated count 88.3 fL 80-96 [facility] Erythrocyte mean corpuscular hemoglobin [Entitic mass] by Automated count 29.7 pg 27-33 [facility] Erythrocyte mean corpuscular hemoglobin concentration [Mass/volume] by Automated count 33.6 g/dL 32.0-36.0 [facility] E[facility] distribution width [Ratio] by Automated count 16.3 % 11.5-14.[address] [facility] Platelets [#/volume] in Blood by Automated count 424 10*3/uL 150-[address] [facility] Differential cell count method - Blood [facility] Neutrophils/100 leukocytes in Blood by Automated count 79 % [facility] Lymphocytes/100 leukocytes in Blood by Automated count 14 % [facility] Monocytes/100 leukocytes in Blood by Automated count 6 % [facility] Eosinophils/100 leukocytes in Blood by Automated count 1 % [facility] Basophils/100 leukocytes in Blood by Automated count 0 % [facility] Neutrophils [#/volume] in Blood by Automated count 6.98 10*3/uL 1.8-[address] [facility] Lymphocytes [#/volume] in Blood by Automated count 1.22 10*3/uL 1.2-[address] [facility] Monocytes [#/volume] in Blood by Automated count 0.48 10*3/uL 0-0.8 [facility] Eosinophils [#/volume] in Blood by Automated count 0.05 10*3/uL 0-0.5 [facility] Basophils [#/volume] in Blood by Automated count 0.03 10*3/uL 0-0.2 [facility] Nucleated erythrocytes/100 leukocytes [Ratio] in Blood by Automated count 0 /100{WBCs} 0-0 [facility] ID Date Data Source [id number] 01/16/2021 03:56:[address] [facility] Name Value Range Interpretation Code Description Data Belinda rce(s) Supporting Document(s) Bicarbonate [Moles/volume] in Serum 20 mmol/L 22-[address] [facility] Chloride [Moles/volume] in Serum or Plasma 107 mmol/L 98-107 [facility] Creatinine [Mass/volume] in Serum or Plasma 1.10 mg/dL 0.70-1.20 [facility] Glucose [Mass/volume] in Serum or Plasma 104 mg/dL 70-140 [facility] Potassium [Moles/volume] in Serum or Plasma 4.3 mmol/L 3.4-5.1 [facility] Sodium [Moles/volume] in Serum or Plasma 140 mmol/L 136-145 [facility] Urea nitrogen [Mass/volume] in Serum or Plasma 8 mg/dL 8-23 [facility] Anion gap 3 in Serum or Plasma 13 mmol/L 8-15 [facility] Osmolality of Serum or Plasma by calculation 289 mosm/kg 275-300 [facility] Creatinine/Urea nitrogen [Mass Ratio] in Serum or Plasma 7 [facility] Calcium [Mass/volume] in Serum or Plasma 9.6 mg/dL 8.6-10.0 [facility] Glomerular filtration rate/1.73 sq M pre dicted among non-blacks [Volume Rate/Area] in Serum or Plasma by Creatinine-based formula (MDRD) 71 mL/min/1.73m2 >60 [facility] Glomerular filtration rate/1.73 sq M pre dicted among blacks [Volume Rate/Area] in Serum or Plasma by Creatinine-based formula (MDRD) 82 mL/min/1.73m2 >60 [facility] ID Date Data Source [id number] 01/16/2021 03:56:45 AM [facility] Value Range Interpretation Code Description Data Belinda rce(s) Supporting Document(s) Magnesium [Mass/volume] in Serum or Plasma 1.8 mg/dL 1.6-2.6 [facility] ID Date Data Source [id number] 01/15/2021 07:55:44 PM [facility] Value Range Interpretation Code Description Data Belinda rce(s) Supporting Document(s) Leukocytes [#/volume] in Blood by Automated count 11.5 10*3/uL 4-[address] [facility] Erythrocytes [#/volume] in Blood by Automated count 3.31 10*6/uL 4.6- 6.[address] [facility] Hemoglobin [Mass/volume] in Blood 9.7 g/dL 13.5-[address] [facility] Hematocrit [Volume Fraction] of Blood by Automated count 29.4 % 4 1-[address] [facility] Erythrocyte mean corpuscular volume [Entitic volume] by Auto mated count 88.9 fL 80-96 [facility] Erythrocyte mean corpuscular hemoglobin [Entitic mass] by Automated count 29.2 pg 27-33 [facility] Erythrocyte mean corpuscular hemoglobin concentration [Mass/volume] by Automated count 32.9 g/dL 32.0-36.0 [facility] distribution width [Ratio] by Automated count 15.8 % 11.5-14.[address] [facility] Platelets [#/volume] in Blood by Automated count 472 10*3/uL 150-[address] [facility] ID Date Data Source [id number] 01/15/2021 01:31:56 PM [facility] Value Range Interpretation Code Description Data Belinda rce(s) Supporting Document(s) Calcium.ionized [Moles/volume] in Arterial blood 1.46 mmol/L 1.13-1.[address] [facility] ID Date Data Source [id number] 01/15/2021 01:48:30 PM [facility] Value Range Interpretation Code Description Data Belinda rce(s) Supporting Document(s) Albumin [Mass/volume] in Serum or Plasma by Bromocresol green (BCG) dye binding method 2.6 g/dL 3.5-5.2 L [facility] ID Date Data Source [id number] 01/15/2021 01:48:30 PM EDT [facility] Name Value Range Interpretation Code Description Data Belinda rce(s) Supporting Document(s) Phosphate [Mass/volume] in Serum or Plasma 2.1 mg/dL 2.5-4.5 [facility] ID Date Data Source [id number] 01/18/2021 04:15:00 PM EDT [facility] CYTOPATHOLOGY REPORTName: KIERSTEN LEDEZMAMRN: [id number] Number: [id number] Date: 01/15/2021 12:45Received Date: 01/17/2021 11:31Physician(s): VIN TORRES MD POIESZ, BERNARD J, MD Specimen(s) ReceivedA: URINE, CATHETERIZEDClinical History:Evaluate for malignancy. History of malignancy per requisition. [id number]. DiagnosisURINE, CATHETERIZED: NEGATIVE FOR HIGH-GRADE UROTHELIAL CARCINOMAComment/pf/calReviewing Cyt[employer]: BARBIE Brown (ASCP)Danae Christian MDElectronically Signed By Emeli Jones M.D. 01/18/2021 16:15:46The attending pathologist named above attests that he/she has personallyreviewed the relevant preparation(s) for the specimen(s) and rendered thefinal diagnosis. Microscopic DescriptionThe specimen is composed of few benign urothelial cells, abundantneutrophils, debris and blood./pf Gross Xfcyeesncsm78 ml clear pale-yellow fluid received: 1 Thin-layer Pap stained slideprepared by filter preparation. This report may include one or more immunohistochemical stain results thatuse analyte specific reagents. All positive and negative controls havebeen reviewed by the attending pathologist and are satisfactory. The testswere developed and their performance ch aracteristics determined by [facility] Pathololgy department. They have not been cleared or approved by [place] Food and Drug Administration. The FDA has determined that suchclearance or approval is not necessary. Name Value Range Interpretation Code Description Data Belinda rce(s) Supporting Document(s) ID Date Data Source [id number] 01/15/2021 12:16:[address] [facility] Name Value Range Interpretation Code Description Data Belinda rce(s) Supporting Document(s) Consultation [facility] SFAEGx0rQvGXFmNo97/IEKbaTIQhz2PiFCqeYWf5KNsiDYHdC3VxBEX1fI6zNQY2DDdOIaIyPpQiVZS5 lbm [file] T0NgYyXEZgO0DjOVXqYWB0SlXwBdF4AxBkGE6MBu5DNsX5YJF2aKKfBz9FQVG0FzyCZvSyZU5FUHv= ID Date Data Source [id number] 01/17/2021 07:02:21 AM [facility] Name Value Range Interpretation Code Description Data Belinda rce(s) Supporting Document(s) ABO and Rh group [Type] in Blood [facility] Blood group antibody screen [Presence] in Serum or Plasma [facility] Performed at [facility], Roland dela cruzTiffany, [id number] [address] [address] ID Date Data Source [id number] 01/15/2021 12:52:10 PM EDT [facility] Name Value Range Interpretation Code Description Data Belinda rce(s) Supporting Document(s) ABO and Rh group [Type] in Blood [facility] Blood bank comment [facility] ID Date Data Source [id number] 01/15/2021 12:50:29 AM EDT [facility] Name Value Range Interpretation Code Description Data Belinda rce(s) Supporting Document(s) Leukocytes [#/volume] in Blood by Automated count 7.5 10*3/uL 4-10 [facility] Erythrocytes [#/volume] in Blood by Automated count 2.41 10*6/uL 4.6- 6.[address] [facility] Hemoglobin [Mass/volume] in Blood 6.9 g/dL 13.5-[address] [facility] Hematocrit [Volume Fraction] of Blood by Automated count 21.2 % 4 1-[address] [facility] Erythrocyte mean corpuscular volume [Entitic volume] by Auto mated count 88.0 fL 80-96 [facility] Erythrocyte mean corpuscular hemoglobin [Entitic mass] by Automated count 28.8 pg 27-33 [facility] Erythrocyte mean corpuscular hemoglobin concentration [Mass/volume] by Automated count 32.8 g/dL 32.0-36.0 [facility] width [Ratio] by Automated count 16.4 % 11.5-14.[address] [facility] Platelets [#/volume] in Blood by Automated count 380 10*3/uL 150-400 [facility] Differential cell count method - Blood [facility] Neutrophils/100 leukocytes in Blood by Automated count 83 % [facility] Lymphocytes/100 leukocytes in Blood by Automated count 11 % [facility] Monocytes/100 leukocytes in Blood by Automated count 6 % [facility] Eosinophils/100 leukocytes in Blood by Automated count 0 % [facility] Basophils/100 leukocytes in Blood by Automated count 0 % [facility] Neutrophils [#/volume] in Blood by Automated count 6.22 10*3/uL 1.8-[address] [facility] Lymphocytes [#/volume] in Blood by Automated count 0.80 10*3/uL 1.2-[address] [facility] Monocytes [#/volume] in Blood by Automated count 0.45 10*3/uL 0-0.8 [facility] Eosinophils [#/volume] in Blood by Automated count 0.02 10*3/uL 0-0.5 [facility] Basophils [#/volume] in Blood by Automated count 0.03 10*3/uL 0-0.2 [facility] Nucleated erythrocytes/100 leukocytes [Ratio] in Blood by Automated count 0 /100{WBCs} 0-0 [facility] ID Date Data Source [id number] 01/15/2021 01:05:17 AM [facility] Name Value Range Interpretation Code Description Data Belinda rce(s) Supporting Document(s) Bicarbonate [Moles/volume] in Serum 21 mmol/L 22-[address] [facility] Chloride [Moles/volume] in Serum or Plasma 106 mmol/L 98-107 [facility] Creatinine [Mass/volume] in Serum or Plasma 0.97 mg/dL 0.70-1.20 [facility] Glucose [Mass/volume] in Serum or Plasma 114 mg/dL 70-140 [facility] Potassium [Moles/volume] in Serum or Plasma 3.3 mmol/L 3.4-5.[address] [facility] Sodium [Moles/volume] in Serum or Plasma 138 mmol/L 136-145 [facility] Urea nitrogen [Mass/volume] in Serum or Plasma 8 mg/dL 8-23 [facility] Anion gap 3 in Serum or Plasma 11 mmol/L 8-15 [facility] Osmolality of Serum or Plasma by calculation 285 mosm/kg 275-300 [facility] Creatinine/Urea nitrogen [Mass Ratio] in Serum or Plasma 8 [facility] Calcium [Mass/volume] in Serum or Plasma 10.0 mg/dL 8.6-10.0 [facility] Glomerular filtration rate/1.73 sq M pre dicted among non-blacks [Volume Rate/Area] in Serum or Plasma by Creatinine-based formula (MDRD) 88 mL/min/1.73m2 >60 [facility] Glomerular filtration rate/1.73 sq M pre dicted among blacks [Volume Rate/Area] in Serum or Plasma by Creatinine-based formula (MDRD) >60 [facility] ID Date Data Source [id number] 01/19/2021 10:45:08 AM [facility] Service Cmnt XXX-Imp : L WRISTMicroorgan ism XXX Cult : No growth 5 days Name Value Range Interpretation Code Description Data Belinda rce(s) Supporting Document(s) ID Date Data Source [id number] 01/14/2021 03:34:40 PM EDT [facility] CT ABDOMEN PELVIS WITHOUT CONTRAST [id number] FINAL RESULTInterpreted by:CAROLYN WileyROCEDURE INFORMATION: Exam: CT Abdomen And Pelvis Without [...] above. Large bladder mass difficult to measure accurately.Reproductive: Unremarkable as visualized. Bones/joints: There is blastic [...] bladder mass obscured by nondistended bladder consistent with malignancy and is consistent [...] DOCUMENT HAS BEEN ELECTRONICALLY SIGNED BY VIVEK LANG MDThis document has been electronically signed by Vivek Lang MD on 01/14/2021 3:34 PM Name Value Range Interpretation Code Description Data [facility] rce(s) Supporting Document(s) ID Date Data Source [id number] 01/14/2021 01:33:03 PM [facility] Name Value Range Interpretation Code Description Data [facility] rce(s) Supporting Document(s) Progress Note [facility] LAKGPs4mReGUBbOn89/ZRChcZVBfi9MzBLzoRLf7TOppNFKcA9RqEFS9zT1wKKN8LHdXXgJpByMbDRK2 [facility] [file] ICAgICAgICAgICAgICAgICAgICAgICAgICAgICAgICAgICAgICAgICAgICAgICAgICAgICAgICAgICAg ICAgICAgICAgICAgICANCiAgICAgICAgICAgICAgIC AgICAgICAgICAgICAgICAgICAgICAgICAgICAgICAgICAgICAgICAgICAgICAgICAgICAgICAgICAgIC AgICAgICAgICAgICAgICAgICAgICAgICANCiAgICAgICAgICAgICAgICAgICAgICAgICAgICAgICAgIC AgICAgICAgICAgICAgICAgICAgICAgICAgICAgICAg ICAgICAgICAgICAgICAgICAgICAgICAgICAgICAgICAgICANCiAgICAgICAgICAgICAgICAgICAgICAg ICAgICAgICAgICAgICAgICAgICAgICAgICAgICAgICAgICAgICAgICAgICAgICAgICAgICAgICAgICAg ICAgICAgICAgICAgICAgICANCiAgICAgICAgICAgIC AgICAgICAgICAgICAgICAgICAgICAgICAgICAgICAgICAgICAgICAgICAgICAgICAgICAgICAgICAgIC AgICAgICAgICAgICAgICAgICAgICAgICAgICANCiAgICAgICAgICAgICAgICAgICAgICAgICAgICAgIC AgICAgICAgICAgICAgICAgICAgICAgICAgICAgICAg ICAgICAgICAgICAgICAgICAgICAgICAgICAgICAgICAgICAgICANCiAgICAgICAgICAgICAgICAgICAg ICAgICAgICAgICAgICAgICAgICAgICAgICAgICAgICAgICAgICAgICAgICAgICAgICAgICAgICAgICAg ICAgICAgICAgICAgICAgICAgICANCiAgICAgICAgIC AgICAgICAgICAgICAgICAgICAgICAgICAgICAgICAgICAgICAgICAgICAgICAgICAgICAgICAgICAgIC AgICAgICAgICAgICAgICAgICAgICAgICAgICAgICANCiAgICAgICAgICAgICAgICAgICAgICAgICAgIC AgICAgICAgICAgICAgICAgICAgICAgICAgICAgICAg ICAgICAgICAgICAgICAgICAgICAgICAgICAgICAgICAgICAgICAgICANCiAgICAgICAgICAgICAgICAg ICAgICAgICAgICAgICAgICAgICAgICAgICAgICAgICAgICAgICAgICAgICAgICAgICAgICAgICAgICAg ICAgICAgICAgICAgICAgICAgICAgICANCjw/eHBhY2 vruCTsjlN6R1jgYz0QOw3SBX9cd2ApGFYcGYkggdOuDcdDThXvWWDzJbdEZbs4QKrvFA4WhTOxX6MnT2 LnBRyjTN2PBSHyJJVrjGLrJWTwAMXoHhZ8GUFsVQbvCG7NwGVbIWtiOZVvFKPwVB1JSYLnT975ebRdPO 6IYq4JZcDtZJ9xoj9ASHbqEIAeGgvTJdb7MPoxGQ6S dWDtzNIdMVZdNGCBCgBoK1dqe0DiDkAgNBFFHGmbBM0Ge2BkxEBiDZf+Pv0ZEM4zc2CxMWivACDfNG5c ks8GTCaRGrHyB2StjSccWJJfc4yvWQGvKT6oeKAlYRD2LNWvk3VggPYEJYRqe2qvMSugn6znGR9ELPK2 EXpeZJOaVeUjWDCyHMypDLEHYEyUNnVgJ0Kmk4SwCc S3KBKuOhVgIUbuGONhEUdcCQ15nXkoFJ7PQWDjBLBdJR54KDB9JZIpTt2TRf8OEnYgNG3iah0JLhGsFL OkCsyKRlb8DHbwLH9JuBObW6IgdUPrk7rCGiXkC1LXPPS0TAMqSh8NIJXuJyKbHVCbGOxgOK0cBJIvXK ZOnTbzgxH3MW9ADC4mhpWsVC3CUrZuKc9gAl4EBdYw S7TiE1YmMTCdWFVEIYlcQD3DRDmtZD2dDX4Hk5KAiOPjjP0uzb8VYKTvFZRiNllurz3DPzljN2I0lMgx TMVeSUvlLNPDGYuiYH9HQFXrWSM5TWWzFVBbXWOQPfFiV13cLJ3DS9Uyl18gOfS6CYHcVzMrGAslSO48 sVbrbxBzaCFaqFcoVT9LIv4+DQplbmRvYmoNCnhyZW HWCxKoChYMRgYnNUOhFDEwBYTxIsI0KaXpEq3UFYVpXRLjGGTgSxVbRIBsJHKdPDthNETaJSL1XJZ5QD OeAQIcHN1GWsKeTACmRDh2KZBrWPQdGOFoxm2MTXUeQCImLNS9ZmCtMTFgAJMzEBzaYYFlGLJrXUjvIF XlVIAwNE0YZbCjZXOkKXBpKQMgMIGeJPDagy5QYOYu OXMuBRQ2WaEqOADuYFCcPFweGSCvZOH1TqL6LNWeOCYuXR3LLiTtVZOcZIB3BfipTUIcFUTgke8CFFVf XPJbQXF9WoIjVYSiHHSvWKmcDGGtIYB4Ypx3TJKzUPMvFW9JUqNgXNJiRKZ4NtAeKUGvUUChjx9XRBWq GZTvHjCoQCTmRPFcPKLjGSevMIAlXNJ6LSC0QYVfDU LjWS2MSbPeITHuXRy8OBLaBXTwLOVczd6MSIHgUZIvLnz1XmZkJDQbSHUxBKddIQFjAKQ3UEAaKFVvTL SrXI1QViMmTEGlKZb8GMRyBYRbLSSvxr4NZYOiDPRyODs5JREmXMAvOTHsLGunHBUjZYUwRSVrIFQoNI NpRK6PWaXoTTVuEhYrDPMbTJPuURWhxz6OiRWcyArp kv9ATAbDKj0NdJsqWBGnHEhvVz4boRLxZOMrGHIAZw2CbaAiRUFqCEYMEVjjMPLhKMP9ADSdVlUaSZFd EfslTOD7QdS3OWIjGZN3UGC2DTCtMaN6TyhdLBGdLKY9LRC9CAB2LhqmHGHkZAR1VIT7GazdNUF+IF0g DQo+Px0Ct2NtedC9nyPjMJkyLEP1YG1KXIAPJ2FWBw== ID Date Data Source [id number] 01/19/2021 10:45:08 AM EDT [facility] Service Cmnt XXX-Imp : RACMicroorganism XXX Cult : No growth 5 days Name Value Range Interpretation Code Description Data Belinda rce(s) Supporting Document(s) ID Date Data Source [id number] 01/22/2021 03:06:13 PM EDT [facility] Name Value Range Interpretation Code Description Data Belinda rce(s) Supporting Document(s) Pyridoxine [Mass/volume] in Serum or Plasma 3.0 ug/L 5.3-46.[address] [facility] (NOTE)Verified by repeat analysisThi s test was developed and its performance characteristicsdetermined by dotSyntax. 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/1jIyZsuUMUfoIOJMFLx8kABnpSrlk8Cg9jMtqtw7XryiedxQNHUuV9L8gZRVeDbIoYI2zzLXOdDOP [file] ICAgICAgICAgICAgICAgICAgICAgICAgICAgICAgICAgICAgICAgICAgICAgICAgICAgICAgICAgICAg ICAgICAgICAgICAgICAgICAgICAgICAgICAgICAgICAgICAgICANCiAgICAgICAgICAgICAgICAgICAg ICAgICAgICAgICAgICAgICAgICAgICAgICAgICAgIC AgICAgICAgICAgICAgICAgICAgICAgICAgICAgICAgICAgICAgICAgICAgICAgICANCiAgICAgICAgIC AgICAgICAgICAgICAgICAgICAgICAgICAgICAgICAgICAgICAgICAgICAgICAgICAgICAgICAgICAgIC AgICAgICAgICAgICAgICAgICAgICAgICAgICAgICAN CiAgICAgICAgICAgICAgICAgICAgICAgICAgICAgICAgICAgICAgICAgICAgICAgICAgICAgICAgICAg ICAgICAgICAgICAgICAgICAgICAgICAgICAgICAgICAgICAgICAgICANCiAgICAgICAgICAgICAgICAg ICAgICAgICAgICAgICAgICAgICAgICAgICAgICAgIC AgICAgICAgICAgICAgICAgICAgICAgICAgICAgICAgICAgICAgICAgICAgICAgICAgICANCiAgICAgIC AgICAgICAgICAgICAgICAgICAgICAgICAgICAgICAgICAgICAgICAgICAgICAgICAgICAgICAgICAgIC AgICAgICAgICAgICAgICAgICAgICAgICAgICAgICAg ICANCiAgICAgICAgICAgICAgICAgICAgICAgICAgICAgICAgICAgICAgICAgICAgICAgICAgICAgICAg ICAgICAgICAgICAgICAgICAgICAgICAgICAgICAgICAgICAgICAgICAgICANCiAgICAgICAgICAgICAg ICAgICAgICAgICAgICAgICAgICAgICAgICAgICAgIC AgICAgICAgICAgICAgICAgICAgICAgICAgICAgICAgICAgICAgICAgICAgICAgICAgICAgICANCiAgIC AgICAgICAgICAgICAgICAgICAgICAgICAgICAgICAgICAgICAgICAgICAgICAgICAgICAgICAgICAgIC AgICAgICAgICAgICAgICAgICAgICAgICAgICAgICAg ICAgICANCiAgICAgICAgICAgICAgICAgICAgICAgICAgICAgICAgICAgICAgICAgICAgICAgICAgICAg ICAgICAgICAgICAgICAgICAgICAgICAgICAgICAgICAgICAgICAgICAgICAgICANCjw/zOBdA8ejgPSe wqE3A0rjDj1WNm7KYV7od1GrPCKvJMmclwOgUtlGVu RfFHBbWuyOBec3LKjzFJ6PnAGiM7BnU7ZgOFqtTG4OHADsSOKcvATwSDUqPAFfNiV1JGJqCDyqSL0BgI AoNXilXGScVRYqLeRfJTBwONDkFZYiFVHuBMSOQQ8ILdAdR1EgoZ57SGNRRl0+DQplbmRvYmoNCjMxID Dcx4SoTQl8EC4CHZDkZsphv8AcIcQeYBZFJTtcSH6X AXS4ORNsHVWgWl0FVILpO431cwRcTI3GIw6GJkCjCZ4eku1CYrKhBBYcScyVIoh3VPzmLA9BvDAqLEnF j66ewJs7ahDtiEGFJHXqkuK2VESaCh5cZUJ4RQTNMDXvpUJ5KiQ7ReVzVwPxMGl6YWVfKW5iQJyaTC3I XAM8TPibGWUyLFIgQ2cBDoBsWMX3PzTeeRzcKJ9CMl XwC5EimhCodRIqARBxRQQXRu1+XKrainHhGmqAWzEhZCGlv6LlDFc1HN1QKCMbTWnbJI3NHCVniL0fRC ojWT5BPmPqVCQnJTGIImMeD24kpUCtYPb4Q9AvBjOgJAAtOpddKAMaZToyBbTtLTEdPsXgAOptFZ7+ID 4+IRgbRW7KTIgsijBbNJJwQj5RMUPuVZJoZR7bMVWm MRWuA1A6zWuxHXAZHrXiS5ztbsjzMT0vXBEiP600lIahrsHzEUGsHQRrZz0XOEHlMGP0YVYfoWRaJwAp NSYHYVgzHG1EkPIeLYW9sO3oVXwvQTUeRGBiI6mDDyJaiZhkOW13cTnyxiTxsSWeTZg+Jn1IDZ6vi8Tj ETt7vpTsQZecBUZ8GEppXEAlHFKjTJCpYKT0JHW4TE TLRfKkPBGvYQAvNFhnQLTpACLhvb4WPUTdSNJeXnZnLAYoNFAsHMSkANbzDKArJXB8HpcaVTQqOKZdMP 3KXdTdFGUfSTXhWQtnTWSmUKRali3NOVQpZGPdFZX5OJMqORRsCHLqLVeoACVpNFT0GhDsJVMaFWCbPU 3BPoXfRJPnOAt5MVKpZLEqVXOwkw6MJJKeVPGdUGHm UeBgMAFdBCCdSIytBOKwMOPtHfC5WWJkOAOgZC7VLkJqPEDkPWL1XdByYWHhKCAmmw9FHGWvAKGqOOmu QhYeETXkXWSmXZanTDFvDQP7WAQgXPFyYTZwJB2SJiNgJCFeFSC5FPWxIOZuNWEwit4BRTIhQCSkHpE6 NEYxYUJvKKSeRYkxOOKdERI5HhfhBTHaDTXkAH6GRf VtEVVtYHlqCTCgOAKjOSGbmz3QKPEjAIMyEfY1UxTiYGThUUDqDUukFNPnJTA1RpHgIKQcTMYyDZ2CGs ZjRASdNFe4LREmLSXvIJIpcj2HCZJdIFWxCGz9JlMgOLRzIAAgLHpzVTSuNWY4HRkzCGWuKQSrOE4XTv MjWVEzYCq0OELpAXOhGLTrmm8WRDXsOYEyJNBpGtTe LQSjWPYfTClmXYGsUKZgYoDqBOCnDSWeMJ3TEuDeAQRrSjI4HPWiKVXlQGSorz7BGSBzSXJaGeSsFfNl HEEiCGDdIMnuDXXcLSCmUbWjUJChMZFyZR6CEoEtCUSiFsU6TtBvYEEvIQHmpt5SVUMyRFWrDxCcCtNh LIExPPTjEOsbNEDqKHYrLTSeKCNsLOOuFH1TWhUrZB XoVkB9HNehJKIzQOYtcv9VLHHaBKEmTID8HHLoFDErOSVrTRpmFWRcJGJ8AvXvNOWkMWEdMT5HYrTlUK pnDJYXNnf2QFhpC7p3WMQsOM2TN2Sxe0OoOeEgQPTWNNnyHA1nniAmWXMxQb7HM2nDKrvoK0InEQYnFV X7CvonDDPpMTMgYJjgJOItDQOjApe6YB0eEMD4SbPv NOO0GxV0BLQ9WwD6AwMhWCI7UpJcUYJmZsr2UvNsFU9GCz8JLrE0UKW4tZLmZj2CEcB6VmtGNlTfXU9G DQo= ID Date Data Source [id number] 01/14/2021 08:56:02 AM [facility] NEPHROSTOMY INSERTION CHANGEFINAL RES ULTInterpreted by:Sae Charles MBBSEXAM: Image guided right nephrostomy tube placement, 01/13/2021LINICAL INDICATIONS: 60-year-old male with metastatic prostate cancer now presents with right-sided hydronephrosisContrast Type and Dose: Omnipaque 300 15 mLFluoroscopy time 2.8 minute, Fluoroscopy Dose 11.8 mGy.Consent: Following discussion of the risks, benefits and alternatives of the procedure, written informed consent was obtained. Moderate Sedation: I performed Moderate Sedation with intravenous 1 mg of Versed and 50 mcg of fentanyl for 30 minutesCOMPARISON: CT abdomen pelvis without contrast 01/12/2021TIME OUT: Prior to the procedure a time out was performed in the presence of the patient and all personnel involved in this case. The patient identity, procedure type, procedure side/site, and allergies were verified.Intravenous antibiotics were administered before and during the procedure.TECHNIQUE: Position: The patient was transferred to the IR laboratory and was positioned prone on the procedural table. The right flank area was prepped and draped using maximum sterile barrier technique.Procedure: After infiltration of local anesthesia and using direct ultrasound guidance, a 20-gauge needle was advanced into a posterolateral calyx of lower pole of right kidney. A small amount of contrast was injected and an antegrade nephrostogram was performed. It demonstrated moderate right-sided hydronephrosis. A 0.018 wire was passed through the needle into the proximal collecting system. The needle was removed and a 6 English coaxial dilator and sheath system was placed [...] dressing and attached to external gravity drainage bag.FINDINGS: Moderate right-sided hydroureteronephrosis.IMPRESSION: Technically successful placement of a new 10 Fr right nephrostomy tube (10 Fr ReSolve) under US and [place] guidance.Plan: Exchange in approximately 8-12 weeks is recommended.This document has been electronically signed by Yohan Toussaint DO on 01/14/2021 8:53 AM Name Value Range Interpretation Code Description Data Belinda rce(s) Supporting Document(s) ID Date Data Source [id number] 01/14/2021 09:45:47 AM [facility] Service Cmnt XXX-Imp : NoneGI Panel : PC R ResultsC coli,jej,upsa DNA Stl Ql [place] non-probe : Not DetectedCdiff tox tcdA, tcdB Stl Ql [place] non-probe : Not DetectedP shigelloides DNA Stl Ql [place] non-probe : Not DetectedS ent, bong DNA Stl Ql [place] non-probe : Not DetectedV chol,para,vul DNA Stl Ql [place] non-probe : Not DetectedV cholerae DNA Stl Ql [place] non-probe : Not DetectedY enterocol DNA Stl Ql [place] non-probe : Not DetectedEAEC Maria Luz plas aggR, aatA St [place] on-probe : Not DetectedEnteropathogenic E coli : Polymerase chain reaction is POSITIVE for Enteropathogenic E. coliETEC ltA, st1a, st1b tox St [place] non-probe : Not DetectedE coli stx1,stx2 Stl Ql [place] non-probe : Not DetectedE coli O157 DNA Stl Ql [place] non-probe : Not applicableShigella sp,EIEC ipaH St [place] non-probe : Not DetectedCryptosp DNA Stl Ql [place] non-probe : Not DetectedC cayetanensis DNA Stl Ql [place] non-probe : Not DetectedE histolyt DNA Stl Ql [place] non-probe : Not DetectedG lamblia DNA Stl Ql [place] non-probe : Not DetectedAdV 40,41 DNA Stl Ql [place] non-probe : Not DetectedAstro typ 1to8 RNA Stl Ql [place] non-probe : Not DetectedNorovirus GI, II RNA Stl Ql [place] non-probe : Not DetectedRotavirus A RNA Stl Ql [place] non-probe : Not DetectedSapo I,II,IV,V RNA Stl Ql [place] non-probe : Not Detected Name Value Range Interpretation Code Description Data Belinda rce(s) Supporting Document(s) ID Date Data Source [id number] 01/14/2021 05:46:37 AM [facility] Name Value Range Interpretation Code Description Data Belinda rce(s) Supporting Document(s) Bicarbonate [Moles/volume] in Serum 20 mmol/L 22-[address] [facility] Chloride [Moles/volume] in Serum or Plasma 103 mmol/L 98-107 [facility] Creatinine [Mass/volume] in Serum or Plasma 1.15 mg/dL 0.70-1.20 [facility] Glucose [Mass/volume] in Serum or Plasma 116 mg/dL 70-140 [facility] Potassium [Moles/volume] in Serum or Plasma 3.4 mmol/L 3.4-5.1 [facility] Sodium [Moles/volume] in Serum or Plasma 136 mmol/L 136-145 [facility] Urea nitrogen [Mass/volume] in Serum or Plasma 10 mg/dL 8-23 [facility] Anion gap 3 in Serum or Plasma 12 mmol/L 8-15 [facility] Osmolality of Serum or Plasma by calculation 281 mosm/kg 275-300 [facility] Creatinine/Urea nitrogen [Mass Ratio] in Serum or Plasma 9 [facility] Calcium [Mass/volume] in Serum or Plasma 11.1 mg/dL 8.6-10.[address] [facility] Glomerular filtration rate/1.73 sq M pre dicted among non-blacks [Volume Rate/Area] in Serum or Plasma by Creatinine-based formula (MDRD) 67 mL/min/1.73m2 >60 [facility] Glomerular filtration rate/1.73 sq M pre dicted among blacks [Volume Rate/Area] in Serum or Plasma by Creatinine-based formula (MDRD) 78 mL/min/1.73m2 >60 [facility] ID Date Data Source [id number] 01/14/2021 06:34:47 AM [facility] Name Value Range Interpretation Code Description Data Belinda rce(s) Supporting Document(s) Leukocytes [#/volume] in Blood by Automated count 11.4 10*3/uL 4-[address] [facility] Erythrocytes [#/volume] in Blood by Automated count 2.75 10*6/uL 4.6- 6.[address] [facility] Hemoglobin [Mass/volume] in Blood 7.8 g/dL 13.5-[address] [facility] Hematocrit [Volume Fraction] of Blood by Automated count 24.0 % 4 1-[address] [facility] Erythrocyte mean corpuscular volume [Entitic volume] by Auto mated count 87.6 fL 80-96 [facility] Erythrocyte mean corpuscular hemoglobin [Entitic mass] by Automated count 28.3 pg 27-33 [facility] Erythrocyte mean corpuscular hemoglobin concentration [Mass/volume] by Automated count 32.3 g/dL 32.0-36.0 [facility] to Obtain Results Erythrocyte distribution width [Ratio] by Automated count 16.5 % 11.5-14.[address] [facility] Platelets [#/volume] in Blood by Automated count 407 10*3/uL 150-[address] [facility] Differential cell count method - Blood [facility] Neutrophils/100 leukocytes in Blood by Automated count 88 % [facility] Lymphocytes/100 leukocytes in Blood by Automated count 8 % [facility] Monocytes/100 leukocytes in Blood by Automated count 4 % [facility] Eosinophils/100 leukocytes in Blood by Automated count 0 % [facility] Basophils/100 leukocytes in Blood by Automated count 0 % [facility] Neutrophils [#/volume] in Blood by Automated count 10.02 10*3/uL 1.8- 7.[address] [facility] Lymphocytes [#/volume] in Blood by Automated count 0.91 10*3/uL 1.2-[address] [facility] Monocytes [#/volume] in Blood by Automated count 0.46 10*3/uL 0-0.8 [facility] Eosinophils [#/volume] in Blood by Automated count 0.01 10*3/uL 0-0.5 [facility] Basophils [#/volume] in Blood by Automated count 0.03 10*3/uL 0-0.2 [facility] Nucleated erythrocytes/100 leukocytes [Ratio] in Blood by Automated count 0 /100{WBCs} 0-0 [facility] ID Date Data Source [id number] 01/16/2021 10:54:50 AM [facility] Cmnt XXX-Imp : NoneMicroorganism XXX Cult : No growth 3 days Name Value Range Interpretation Code Description Data Belinda rce(s) Supporting Document(s) ID Date Data Source [id number] 01/14/2021 11:01:20 AM [facility] Cmnt XXX-Imp : NoneMicroorganism XXX Cult : Test Not Performed.Improper Tube/Specimen Type Name Value Range Interpretation Code Description Data Belinda rce(s) Supporting Document(s) ID Date Data Source [id number] 01/13/2021 03:47:21 PM T [facility] Name Value Range Interpretation Code Description Data Belinda rce(s) Supporting Document(s) Consultation [facility] BZOWVn3vOdXWFbMp57/UWMytJQTft2YhNZogDRh3SJzsFHGqM8MoIRK2oA0nLWJ8TXiAUyUhPvOnCBW3 lbm [file] ICAgICAgICAgICAgICAgICAgICAgICAgICAgICAgIC AgICAgICAgICAgICAgICAgICAgICAgICAgICAgICAgDQogICAgICAgICAgICAgICAgICAgICAgICAgIC AgICAgICAgICAgICAgICAgICAgICAgICAgICAgICAgICAgICAgICAgICAgICAgICAgICAgICAgICAgIC AgICAgICAgICAgICAgDQogICAgICAgICAgICAgICAg ICAgICAgICAgICAgICAgICAgICAgICAgICAgICAgICAgICAgICAgICAgICAgICAgICAgICAgICAgICAg ICAgICAgICAgICAgICAgICAgICAgICAgDQogICAgICAgICAgICAgICAgICAgICAgICAgICAgICAgICAg ICAgICAgICAgICAgICAgICAgICAgICAgICAgICAgIC AgICAgICAgICAgICAgICAgICAgICAgICAgICAgICAgICAgDQogICAgICAgICAgICAgICAgICAgICAgIC AgICAgICAgICAgICAgICAgICAgICAgICAgICAgICAgICAgICAgICAgICAgICAgICAgICAgICAgICAgIC AgICAgICAgICAgICAgICAgDQogICAgICAgICAgICAg ICAgICAgICAgICAgICAgICAgICAgICAgICAgICAgICAgICAgICAgICAgICAgICAgICAgICAgICAgICAg ICAgICAgICAgICAgICAgICAgICAgICAgICAgDQogICAgICAgICAgICAgICAgICAgICAgICAgICAgICAg ICAgICAgICAgICAgICAgICAgICAgICAgICAgICAgIC AgICAgICAgICAgICAgICAgICAgICAgICAgICAgICAgICAgICAgDQogICAgICAgICAgICAgICAgICAgIC AgICAgICAgICAgICAgICAgICAgICAgICAgICAgICAgICAgICAgICAgICAgICAgICAgICAgICAgICAgIC AgICAgICAgICAgICAgICAgICAgDQogICAgICAgICAg ICAgICAgICAgICAgICAgICAgICAgICAgICAgICAgICAgICAgICAgICAgICAgICAgICAgICAgICAgICAg ICAgICAgICAgICAgICAgICAgICAgICAgICAgICAgDQogICAgICAgICAgICAgICAgICAgICAgICAgICAg ICAgICAgICAgICAgICAgICAgICAgICAgICAgICAgIC HtOIWfYHUtLCDlTLBuOGZkNSOlEOYfLWFlHRMkYXVpNAXoXUQlCCLiJCk6M3plOEMrIJQdKQ8kDKq4Yj 8+INjRZfAwJHS1deQpsU3IWX5zg6KiKQwsOIEzq9VxLGv5ZS8NZHPrSCwsCH6HSKzhjr5WSJIiFNQamM CWg9nlJaIcXED7HHFcIklzLM2DNRCrR0dyuqYhEBIh BLEISVknMRGEZUltOFJACRYoBTPeDwCnHdKnYUYaDYBsYNHGSIM2JQXsEvMkUAAeMWEuJmSdPFXXRPEm CUYoSwQsSFnjEQ1An6YoaCWfMO9CGn2CGgBfMY5fjs3BRBDmTJGnVqhGByq8YOizNQ5GvUHwcTW8HbLf SUEMFjTsF7gmt6ZgGQpvSUVRDMqcFU0Sx6WotWFoVL o+Qn8CNC9jo1TmMDf4NvFfOL3ihi8UBYkIZbHfN5EweSxeDBOdgnU3rNYcUBI6UBIswBexNvA7zNLIIP mtmiS4o0jhKR1PRBW7WYecXGHdUmQrSKHsXNp4TcXSDGoNFzKqL1Ssg5BnJeA3WSPlYbEiKWvcWRDnYW maFA06aZxuXL3POSXgKNAhWM94DKI1OUWzOs3PUn3S EqSxLI8fgq7WAJtwLXZfXcxIBcb0ODjrNO5IlYNoV8LucBImi8oHHlCkO5NYUQY9YPKmZs1AUQNeCkIx FGKqWUxyUE6gEUHxSQFEbWtbjaF9NX8FLM1eikVcJS7ZFfJtIi8mPi2GRcCjU5DdG8JrGQYtFTEILLxc WP8WDNutIT1xNU2Bn7FUrTJgpU1ryt8OTQQzXTVfYj xymu6UEuwfD3W5vWhzYXArLOTbCSIMTKnsUC4ZUFEqOQN8SUS4AEPoXOMRSoPaF96gNG8JN5Oug92gOu B8DNJbBrRaHRzxXB88sFevnfKgjHPvmUhnMX0FFk4+DQplbmRvYmoNCnhyZWYNCjAgNDkNCjAwMDAwMD BdCDWfSsR4SnHmMv1KGTAmADZwPSLnSlBwQRQeZNJr BKitLJLnGCQyGSv9YYPaTNJfIG7TKwUaLAPgCJUoQgBzJEQyHKKtzo1DOQNbXANpOIV0RkOjRPYnTWQs MOdbOTCnDLQ3WcEfMGGjIMYcAQ3WYhOdQFJdXUD3PdNqZAKiJIChqv3STXPjMUGdLlJfHtZtSROiJMKu AEmjQANmOMD3NRO9RFNjARPwCF1EYqKbFAIxLEG1Ip nrWKVeMXZduv0YLVInRVEtANWhVORjIACtVPWeJSplRUCnAGUuCET4XZGeUKHtGD0KYfMbBBMrRRK7Di MjBINuAUYjey5GWFKuPNHdCyH9BHKdWAVmBSQxGUkdIRImQRI6Iqp3XWUdULHiKB8CDmIbXABcHOc8FW RrLPLpITVusc4WOLPqQUTmEPWfIiQyIZVsQWAyABie BFDkXCXkMFyoMMIkOVHjDJ1RQrHkIMEhMfDgQscsRRZgNIYsij2XEUPyQYTmQyD0NiMvIKAnUXIbJFzo LWEaCUW3AcqhUGDxJNAhGI9AByIqKBCpPgEfKyRuYLFoZYBvyt2LDBDmFFRqQYA4YSZoNRTxXUZfLIxm YBUpOHRcNkwuQQSjCVIvQO8DHpNrQAQoOaQ9VLzlCV LhLZAxob7YEUBxJOAwIlD0QtXxLBHtGYDpBIsoQZAnERGcMfH2ETIoSDSzGI6WXnYxZVRzFqH3HuinGW JxPTBpnq0WBCSxNPVvSAq8PaCtWRSwOYNfDBwxAXGzFWN5JZs6SIGkKBHbBP5WBgRqKWDaBaKeCbOdDZ QlPXDbrh4CXDZrLBScGxJtNREdDZHsNTXeCNnsPBHl AHO8FkI2HUCvTGJoSF7KEjNpTGOyLjX8HvFuIILgXVEejs6BBZLtMWSjZvG5JLJcROEmVBIaKMjjJTHf ASE6UavnTHFzJPErYK4MQqViQNKrNgg8UgJhWVDvUMJztx2OHONyUSF3LVY9RJCxJHXrFJItMCurQVAj TDT2WWL0TTDbCEDyXL9UTpZyPAReAZe2PzgzZQIbXE Mynz6GNMBrYEW9GHDoPzAyWONrGBKuVJveBNMyTMDrGKJcQGNuDRViUD1BIoLoFLEsJKSyPHCbDLReGV Jcjw3GBDGtABG8CVX3TOVkDQHzEJQjAJtmGJOqEMBnNUpfLISjTYEtSA7MSxYmXAFkTRP5WqYiNACtDJ Hvnq4BXXQkJVA5BhUhTRWzVRVcXDFbJMfmERGeLSHx XLlmPJMbQBLgEF3WWrLdFTYwKBA9AEPkPQVeRZZpzl3KgZSuvHtsij9AOBvRIu6BdSjgVEP1MVqyYg3f hUA4RYYtAXBMWl9JspGjUPZtOAGZNPnsSJNaFROvCGI4IRAxMsZjUJF7G3F1Aae1IfSmQyNvJFA1DtXr MsT1VOO1GEnxLMS5YmFvOTWzSiOtQUocFSIeC5QvGG gzMGE+PV9hVNl+Wh1In8NagbR5ngMgXTr4Neg1EE8HISZGP6ZAYx== ID Date Data Source [id number] 01/15/2021 12:43:02 PM [facility] Service Cmnt XXX-Imp : NoneMicroorganism XXX Cult : 200 col/mlStaphylococcus epidermidis. Name Value Range Interpretation Code Description Data Belinda rce(s) Supporting Document(s) ID Date Data Source [id number] 01/13/2021 01:49:56 PM [facility] Name Value Range Interpretation Code Description Data Belinda rce(s) Supporting Document(s) History and Physical [facility] QAVTMf1jWmAMSfLt30/XDTfzFCGoa8HbYWzxJEu3ZUuuXIQgW0YdCYU3jN0zCXG9EPqTXdPpFdPqEFY5 lbm [file] IsJkCH4DTk5ALcQ1FLL3mHIlKa1HIzr5HQeNTkNuIZ3TDAv= ID Date Data Source [id number] 01/13/2021 11:36:31 AM [facility] Value Range Interpretation Code Description Data Belinda rce(s) Supporting Document(s) Cobalamin (Vitamin B12) [Mass/volume] in Serum or Plasma 724 pg/ml 2 11-946 [facility] ID Date Data Source [id number] 01/13/2021 11:36:31 AM [facility] Value Range Interpretation Code Description Data Belinda rce(s) Supporting Document(s) Ferritin [Mass/volume] in Serum or Plasma 583 ng/ml 30-[address] [facility] ID Date Data Source [id number] 01/13/2021 11:36:31 AM [facility] Value Range Interpretation Code Description Data Belinda rce(s) Supporting Document(s) Haptoglobin [Mass/volume] in Serum or Plasma 348 mg/dl 30-[address] [facility] ID Date Data Source [id number] 01/13/2021 12:14:08 PM [facility] Value Range Interpretation Code Description Data Belinda rce(s) Supporting Document(s) Lactate dehydrogenase [Enzymatic activit y/volume] in Serum or Plasma by Lactate to pyruvate reaction 169 U/L 122-225 [facility] ID Date Data Source [id number] 01/13/2021 12:14:08 PM [facility] Value Range Interpretation Code Description Data Belinda rce(s) Supporting Document(s) Iron [Mass/volume] in Serum or Plasma 13 ug/dl 59-[address] [facility] Transferrin [Mass/volume] in Serum or Plasma 114 mg/dL 200-360 [facility] Iron binding capacity [Mass/volume] in Serum or Plasma 158 ug/dL 278 -500 [facility] Iron saturation [Mass Fraction] in Serum or Plasma 8.0 % 20-55 [facility] ID Date Data Source [id number] 01/13/2021 11:38:00 AM [facility] Name Value Range Interpretation Code Description Data Belinda rce(s) Supporting Document(s) Folate [Mass/volume] in Serum or Plasma >4.77 [facility] ID Date Data Source [id number] 01/13/2021 06:50:57 AM [facility] Value Range Interpretation Code Description Data Belinda rce(s) Supporting Document(s) Potassium [Moles/volume] in Serum or Plasma 3.4 mmol/L 3.4-5.1 [facility] ID Date Data Source [id number] 01/13/2021 08:12:47 AM [facility] Value Range Interpretation Code Description Data Belinda rce(s) Supporting Document(s) Magnesium [Mass/volume] in Serum or Plasma 1.5 mg/dL 1.6-2.6 [facility] ID Date Data Source [id number] 01/13/2021 08:12:47 AM [facility] Value Range Interpretation Code Description Data Belinda rce(s) Supporting Document(s) Phosphate [Mass/volume] in Serum or Plasma 1.9 mg/dL 2.5-4.5 [facility] ID Date Data Source [id number] 01/25/2021 05:06:08 PM [facility] Value Range Interpretation Code Description Data Belinda rce(s) Supporting Document(s) Thiamine [Moles/volume] in Blood 54.7 nmol/L 66.5-200.0 [facility] (NOTE)Verified by repeat analysisThi s test was developed and its performance characteristicsdetermined by [employer]. It has not been cleared or approvedby the Food and Drug Administration.Performed At: [address] [id number] Holden MD Ph:[id number] ID Date Data Source [id number] 01/13/2021 02:10:[address] [facility] Name Value Range Interpretation Code Description Data Belinda rce(s) Supporting Document(s) Leukocytes [#/volume] in Blood by Automated count 14.4 10*3/uL 4-[address] [facility] Erythrocytes [#/volume] in Blood by Automated count 2.59 10*6/uL 4.6- 6.[address] [facility] Hemoglobin [Mass/volume] in Blood 7.4 g/dL 13.5-[address] [facility] Hematocrit [Volume Fraction] of Blood by Automated count 22.7 % 4 1-[address] [facility] Erythrocyte mean corpuscular volume [Entitic volume] by Auto mated count 87.6 fL 80-96 [facility] Erythrocyte mean corpuscular hemoglobin [Entitic mass] by Automated count 28.5 pg 27-33 [facility] Erythrocyte mean corpuscular hemoglobin concentration [Mass/volume] by Automated count 32.5 g/dL 32.0-[facility] width [Ratio] by Automated count 16.3 % 11.5-14.[address] [facility] Platelets [#/volume] in Blood by Automated count 391 10*3/uL 150-400 [facility] Differential cell count method - Blood [facility] Neutrophils/100 leukocytes in Blood by Automated count 86 % [facility] Lymphocytes/100 leukocytes in Blood by Automated count 6 % [facility] Monocytes/100 leukocytes in Blood by Automated count 8 % [facility] Eosinophils/100 leukocytes in Blood by Automated count 0 % [facility] Basophils/100 leukocytes in Blood by Automated count 0 % [facility] Neutrophils [#/volume] in Blood by Automated count 12.34 10*3/uL 1.8- 7.[address] [facility] Lymphocytes [#/volume] in Blood by Automated count 0.91 10*3/uL 1.2-[address] [facility] Monocytes [#/volume] in Blood by Automated count 1.08 10*3/uL 0-0.[address] [facility] Eosinophils [#/volume] in Blood by Automated count 0.02 10*3/uL 0-0.5 [facility] Basophils [#/volume] in Blood by Automated count 0.04 10*3/uL 0-0.2 [facility] Nucleated erythrocytes/100 leukocytes [Ratio] in Blood by Automated count 0 /100{WBCs} 0-0 [facility] ID Date Data Source [id number] 01/13/2021 02:16:55 AM [facility] Name Value Range Interpretation Code Description Data Belinda rce(s) Supporting Document(s) Bicarbonate [Moles/volume] in Serum 24 mmol/L 22-29 [facility] Chloride [Moles/volume] in Serum or Plasma 101 mmol/L 98-107 [facility] Creatinine [Mass/volume] in Serum or Plasma 1.13 mg/dL 0.70-1.[facility] [facility] Glucose [Mass/volume] in Serum or Plasma 118 mg/dL 70-140 [facility] Potassium [Moles/volume] in Serum or Plasma 3.0 mmol/L 3.4-5.[address] [facility] Sodium [Moles/volume] in Serum or Plasma 135 mmol/L 136-[address] [facility] Urea nitrogen [Mass/volume] in Serum or Plasma 12 mg/dL 8-23 [facility] Anion gap 3 in Serum or Plasma 9 mmol/L 8-15 [facility] Osmolality of Serum or Plasma by calculation 280 mosm/kg 275-300 [facility] Creatinine/Urea nitrogen [Mass Ratio] in Serum or Plasma 10 [facility] Calcium [Mass/volume] in Serum or Plasma 11.1 mg/dL 8.6-10.[address] [facility] Glomerular filtration rate/1.73 sq M pre dicted among non-blacks [Volume Rate/Area] in Serum or Plasma by Creatinine-based formula (MDRD) 69 mL/min/1.73m2 >60 [facility] Glomerular filtration rate/1.73 sq M pre dicted among blacks [Volume Rate/Area] in Serum or Plasma by Creatinine-based formula (MDRD) 80 mL/min/1.73m2 >60 [facility] ID Date Data Source [id number] 01/13/2021 02:01:08 AM [facility] Value Range Interpretation Code Description Data Belinda rce(s) Supporting Document(s) Calcium.ionized [Moles/volume] in Arterial blood 1.73 mmol/L 1.13-1.3 2 [facility] Called to and read back byEDDIE SARAVIA AT 10E AT 0201 BY [id number] XW ID Date Data Source [id number] 01/20/2021 02:06:27 AM [facility] Name Value Range Interpretation Code Description Data Belinda rce(s) Supporting Document(s) Parathyrin related protein [Moles/volume] in Serum or Plasma [facility] (NOTE)This test was developed and its pe rformance characteristicsdetermined by [facility]. It has not been cleared or approvedby the Food and Drug Administration.Reference Range:All Ages: <2.0The PTHrP assay should not be used to exclude cancer orscreen tumor patients for humoral hypercalcemia ofmalignancy (HHM). The results should always be assessed inconjunction with the patient's medical history, clinicalexamination, and other findings. If test results areclinically discordant, please contact the laboratory.Performed At: Private Practice[address] [place] [address] [id number] Odonnell MD Ph:[phone] ID Date Data Source [id number] 01/12/2021 06:41:32 PM [facility] Value Range Interpretation Code Description Data Belinda rce(s) Supporting Document(s) Hepatitis C virus Ab [Presence] in Serum or Plasma by Immuno assay Non Reactive [facility] No serological evidence of active infect ion. If recent exposure is suspected, test for HCV RNA. ID Date Data Source [id number] 01/12/2021 06:21:00 PM [facility] Name Value Range Interpretation Code Description Data Belinda rce(s) Supporting Document(s) Prothrombin time (PT) 17.5 s 11.6-14.[address] [facility] INR in Platelet poor plasma by Coagulation assay 1.50 [facility] Routine intensity oral anticoagulation I NR is typically 2.0-3.0. Target INR must be clinically individualized. ID Date Data Source [id number] 01/12/2021 06:18:02 PM [facility] Name Value Range Interpretation Code Description Data Belinda rce(s) Supporting Document(s) Calcium.ionized [Moles/volume] in Arterial blood 1.75 mmol/L 1.13-1.3 2 [facility] Called to and read back byDANIEL HANLEY RN ON AT 181 BY [id number] ID Date Data Source [id number] 01/12/2021 01:22:32 PM EDT [facility] MR BRAIN WITH AND WITHOUT CONTRAST [id number] FINAL RESULTInterpreted by:Tricia Tate MDINDICATION: Mental status change, unknown causeTECHNIQUE: Multiplanar multisequence magnetic resonance imaging of the brain was obtained. IV gadolinium contrast was administered.COMPARISONS: No prior relevant studies are available at the time of this dictation.FINDINGS: The cerebral parenchyma is normal in appearance. [...] nonspecific and likely reflect small vessel ischemic disease.The extra-axial spaces are normal in size and morphology for the patient's age. There is no intracranial hemorrhage. The basal cisterns are patent. There is no shift of the midline structures.The visualized upper cervical spine is normal.The calvarium is intact. Normal flow voids are present, without atheroma, occlusion, or dissection.Mucosal thickening in the bilateral maxillary sinuses otherwise paranasal sinuses are well aerated. The mastoid air cells are clear. The visualized orbits are normal in appearance.IMPRESSION:1. No evidence of acute hemorrhage or territorial infarction.2. 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 There is increase high intensity area in the periventricular and scattered subcortical white matter region, nonspecific and likely reflect small vessel ischemic disease.This document has been electronically signed by Tricia Tate MD on 01/12/2021 1:20 PM Name Value Range Interpretation Code Description Data Belinda rce(s) Supporting Document(s) ID Date Data Source [id number] 01/12/2021 12:04:38 PM EDT [facility] Name Value Range Interpretation Code Description Data Belinda rce(s) Supporting Document(s) History and Physical [facility] NLBOBa4hGmRFOuAh57/CAMftLBKof3PgLQvzKSx4RHhuUFDsE7AhYRW5zI3xLNI7MQmOCyRhFlExROU9 lbm [file] AgICAgICAgICAgICAgICAgICAgICAgICAgICAgICAg ICAgICAgICAgICAgICAgICAgICAgICAgICAgICAgICAgICAgICAgICAgICAgICAgICAgICAgDQogICAg ICAgICAgICAgICAgICAgICAgICAgICAgICAgICAgICAgICAgICAgICAgICAgICAgICAgICAgICAgICAg ICAgICAgICAgICAgICAgICAgICAgICAgICAgICAgIC AgICAgDQogICAgICAgICAgICAgICAgICAgICAgICAgICAgICAgICAgICAgICAgICAgICAgICAgICAgIC AgICAgICAgICAgICAgICAgICAgICAgICAgICAgICAgICAgICAgICAgICAgICAgDQogICAgICAgICAgIC AgICAgICAgICAgICAgICAgICAgICAgICAgICAgICAg ICAgICAgICAgICAgICAgICAgICAgICAgICAgICAgICAgICAgICAgICAgICAgICAgICAgICAgICAgDQog ICAgICAgICAgICAgICAgICAgICAgICAgICAgICAgICAgICAgICAgICAgICAgICAgICAgICAgICAgICAg ICAgICAgICAgICAgICAgICAgICAgICAgICAgICAgIC AgICAgICAgDQogICAgICAgICAgICAgICAgICAgICAgICAgICAgICAgICAgICAgICAgICAgICAgICAgIC AgICAgICAgICAgICAgICAgICAgICAgICAgICAgICAgICAgICAgICAgICAgICAgICAgDQogICAgICAgIC AgICAgICAgICAgICAgICAgICAgICAgICAgICAgICAg ICAgICAgICAgICAgICAgICAgICAgICAgICAgICAgICAgICAgICAgICAgICAgICAgICAgICAgICAgICAg DQogICAgICAgICAgICAgICAgICAgICAgICAgICAgICAgICAgICAgICAgICAgICAgICAgICAgICAgICAg ICAgICAgICAgICAgICAgICAgICAgICAgICAgICAgIC AgICAgICAgICAgDQogICAgICAgICAgICAgICAgICAgICAgICAgICAgICAgICAgICAgICAgICAgICAgIC AgICAgICAgICAgICAgICAgICAgICAgICAgICAgICAgICAgICAgICAgICAgICAgICAgICAgDQogICAgIC AgICAgICAgICAgICAgICAgICAgICAgICAgICAgICAg ICAgICAgICAgICAgICAgICAgICAgICAgICAgICAgICAgICAgICAgICAgICAgICAgICAgICAgICAgICAg SNYrBCk7B3ziXPVzKGDfXP4tDIf9Zn3+BAoJSxDuZXI5lfProW9CHN2rf8GdCJprFLLfl8BfMNd5AY0B IBChCIcyYY5SWNigvx6FYSOuLJYoaIGSu6keOwMaKT O1VJXoGjivTW9ZGZXgI7cswiSmZYLiQSLTSXrtXTNBZKoyEKUKJJSuFFEcXsGgHkKsLKSyEYYnRGTEZH 0ODjKdA9KwnW43HXWGDv4+ONjzdxWkDtxIYzT9WIUlw1WlMEh0NC8OHTCuZagsg0KhBlGlOGZWQOyfSE 6XSNX2WHX3QWBaIj0TFVVlP162rwIiQZ3RXx7AOvYn RR1yda6YGeCzCPNiVyuNIvv8DVrqQZ5ZoTXyCMkIBtKhNroaH4MmLPPvLYSsCzWpPTZmrTuuXP0KFnIk BWKtGV5lOZ7pKXBzBJV7FtVfWSYMIP4WACPpNHKtmOBsQQMzNTJHPC1DKQcuNQE8RDXvqvKwwUDpAFzz NF4FEYXnflYmNkDwXTTMHOu+Jv8EKE6kz4TyVWqaTa VeNX9sqq2BWVfSEqGcA1Z3mZCoC4E9MRsyGk3FGBOoSSDwEhDaMKXMJLfsXD0KJC1kctM3VX1HfVIgAP PzCCUhtTOsINa9E56tdBBlMIlbKF7VETK+Immanuel+Pe3BODLhOIJyZDIgYxEiPQESRtKwU1BmW0VRc5JnC7 MfYC91vLsuqzDnFCkfUG0PBJ7rTVClJMRJHO9VzGCo gQ8btkYkDIVaQJOALwEaF89dyGHrFUNlGOJ7NEAjCf0NKNXiG4CfwjLinPwlatArIPCoHAYMBS8GBPrr hcRhhYMmqDijKK57oKceQF7FDr2EPyFfAQ1pod2XbFMfYk9JEDLsDE2YKIAzKPUxIMDpFFT0MWOwWrVw AXkbNJPaQSDsZPX8HEFdIFTgKL8DFrCwDTAsZmp3ZA qgWHCaULAorn2GSVXeCIK2WQjrMBTpCHHiEDVkAEcoYUMnYEHuPWX5HDOiZJRoOS9VKhRyMZSrJTC4YY MfHJFhWBPmsd2BWISaYAQtGDQ6PZQhGQFkXPGyDXlgFXCwVQO1WDK0NCQeFACuGA7VHbExVEVyJAjvSb wqUBFvOAImay8DANGeFONbHeV8PoQfOXCgUXJmYSbz LMTvGOLmDyViNIHnDXTdUH7LVpLoLPKdPTU1IEHaPXMvTGLqik5IFVIrITNtJLe9BEVpGLVnABRpMGtt GWWrIYX9VuR2QKMzYVDjSJ9CPhXqQNViVBl3BcHiCJNdLEGbpv2DNYBwIGLeKQG1PCZvEZWhSQIdMRpr JRCzMNRjRtIuEJCoIWJuMC1VRaFeKHBgIyJxXqQrGT FqOSOhnf4CAGVsBAJaMwSrFSLgGDHpPZXyLJlpAJRuMPJoUdFeDMHcJURcIA4SAqGlQKZjGlT0UpGsKP ZtAXYphl0ORUEdIAItEal8KxRfVRQaXYFfZNmsHRHoMOMvMQHxRWUlTCQtHT7PEqPgZPClWrV2YYWlYA QpYCEoaa8ZLQJkHGDgEZQdIiSfMDDiEAGvBCkqFDFq RVT1QzulTOZqFBKaSB8GRvUiDMJyGaAqRIyfLLZhRTFqcf8XPRVtTGIaVoV7CMNnAXYhWYUaVIxjVGVm LJR0FvB1ZHLpGHRgJV4OScPpDTGcMybbCpRiKRZtOJZfol1GVPGbLKOxSSA2SrYbZARyTPWjFCvuQDVn TDA0PKPeWHEhYJXkUY4TUpJhWZBxEgp8SXSaWLZqLD Mudz3LLWYqSJAcFGwgNhItSWRsUCVjUArdHWFmVNM0HxP7VDTjMMRhCN3DLoOmWNMvFFO7QLTlZTEuTN Rrxv3FBBGwPOB4KDslYVCpBHIzKHXtRFoeLWQjTEEwAHU4XXOgJVXrLW9IJvQlIQmzMCCARpp0DKsfE3 a5SHWjMF8LV5Qou1NmOvsqCZICLDsuLG2kllZfESCa Iz2OB3tXIfq1SzogSXWjUiB0NKR6NFBpS4EvRkQbAQG2Qwm8PMX2Sx3nHYQwM1W5SeUyKGa0ESumIYPv AuPrPQB9Bdo8DPubEEq6ZhCsVC8RCc5SRtE1HPK5gNCgCs6GXLFuKVxIQjPmSN7FHKy= ID Date Data Source [id number] 01/12/2021 11:11:26 AM EDT [facility] RENAL OR AORTA COMPLETE [id number] RE SULTInterpreted by:Hema Littel DOCLINICAL INDICATION: rule out bilateral hydronephrosis / pyelonephritis.TECHNIQUE: Multiple sonographic real-time images of the kidneys and bladder were obtained.COMPARISON: None available at the time of this dictation.FINDINGS:The right kidney measures 10.5 cm in length, and the left kidney measures 11.6 cm in length. The right kidney is normal in size, contour, cortical thickness, and echogenicity. Moderate right hydroureteronephrosis. Soft tissue thickening is noted surrounding the right ureter measuring 10.2 x 4.2 cm No renal lesion is identified. No perinephric fluid collection is seen.The left kidney is normal in size, contour, cortical thickness and echogenicity. No hydronephrosis is identified. No focal renal lesion is identified. No perinephric fluid collection is seen.Manzano catheter is noted in the bladder.IMPRESSION:Moderate right hydroureteronephrosis with soft tissue thickening surrounding the right ureter measuring 10.2 x 4.2 cm x 4.[address] IVP is recommended for further evaluation.This document has been electronically signed by Hema Little DO on 01/12/2021 11:09 AM Name Value Range Interpretation Code Description Data Belinda rce(s) Supporting Document(s) ID Date Data Source [id number] 01/12/2021 09:03:15 AM EDT [facility] Name Value Range Interpretation Code Description Data Belinda rce(s) Supporting Document(s) Calcium.ionized [Moles/volume] in Arterial blood 1.75 mmol/L 1.13-1.3 2 [facility] CALLED TO TUSHAR MCCAULEY RN ON 10E AT 090 3 BY [id number] read back ID Date Data Source [id number] 01/12/2021 05:13:00 AM EDT [facility] Name Value Range Interpretation Code Description Data Belinda rce(s) Supporting Document(s) SARS-CoV-2 RNA 2019 nCoV Real-Time RT-PCR: NOT DETECTED [facility] This lab was ordered by [facility] and reported by [facility]. ID Date Data Source [id number] 01/12/2021 08:47:46 AM EDT [facility] Name Value Range Interpretation Code Description Data Belinda rce(s) Supporting Document(s) Specimen source [Identifier] of Unspecified specimen [facility] SARS-CoV-2 RNA 2019 nCoV Real-Time RT-PCR: NOT DETECTED [facility] Assay Performed [facility] Patients first test for condition 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 Patient has symptoms related to condition [facility] When did you start to experience these symptoms [Date and time] [Phen X] [facility] Patient was hospitalized because of this condition [facility] patient was admitted to ICU for condition [facility] Patient resides in a congregate care setting [facility] status [facility] ID Date Data Source [id number] 01/12/2021 01:59:22 AM EDT [facility] Name Value Range Interpretation Code Description Data Belinda rce(s) Supporting Document(s) Parathyrin.intact [Mass/volume] in Serum or Plasma 24 pg/mL 15-65 [facility] ID Date Data Source [id number] 01/12/2021 01:42:12 AM [facility] Value Range Interpretation Code Description Data Belinda rce(s) Supporting Document(s) Leukocytes [#/volume] in Blood by Automated count 13.5 10*3/uL 4-[address] [facility] Erythrocytes [#/volume] in Blood by Automated count 2.70 10*6/uL 4.6- 6.[address] [facility] Hemoglobin [Mass/volume] in Blood 7.7 g/dL 13.5-[address] [facility] Hematocrit [Volume Fraction] of Blood by Automated count 23.7 % 4 1-[address] [facility] Erythrocyte mean corpuscular volume [Entitic volume] by Auto mated count 87.9 fL 80-96 [facility] Erythrocyte mean corpuscular hemoglobin [Entitic mass] by Automated count 28.6 pg 27-33 [facility] Erythrocyte mean corpuscular hemoglobin concentration [Mass/volume] by Automated count 32.6 g/dL 32.0-[facility] distribution width [Ratio] by Automated count 16.1 % 11.5-14.[address] [facility] Platelets [#/volume] in Blood by Automated count 388 10*3/uL 150-400 [facility] ID Date Data Source [id number] 01/12/2021 01:56:22 AM [facility] Name Value Range Interpretation Code Description Data Belinda rce(s) Supporting Document(s) Albumin [Mass/volume] in Serum or Plasma by Bromocresol green (BCG) dye binding method 2.9 g/dL 3.5-5.2 L [facility] Bilirubin.total [Mass/volume] in Serum or Plasma 0.3 mg/dL <1.2 [facility] Calcium [Mass/volume] in Serum or Plasma 12.5 mg/dL 8.6-10.[address] [facility] Chloride [Moles/volume] in Serum or Plasma 100 mmol/L 98-107 [facility] Creatinine [Mass/volume] in Serum or Plasma 0.93 mg/dL 0.70-1.20 [facility] Glucose [Mass/volume] in Serum or Plasma 119 mg/dL 70-140 [facility] Alkaline phosphatase [Enzymatic activity/volume] in Serum or Plasma 122 U/L 40-129 [facility] Potassium [Moles/volume] in Serum or Plasma 3.6 mmol/L 3.4-5.1 [facility] Protein [Mass/volume] in Serum or Plasma 5.9 g/dL 6.4-8.[address] [facility] Sodium [Moles/volume] in Serum or Plasma 137 mmol/L 136-145 [facility] Aspartate aminotransferase [Enzymatic activity/volume] in Serum or Plasma 33 U/L <40 [facility] Urea nitrogen [Mass/volume] in Serum or Plasma 16 mg/dL 8-23 [facility] Osmolality of Serum or Plasma by calculation 286 mosm/kg 275-300 [facility] Creatinine/Urea nitrogen [Mass Ratio] in Serum or Plasma 17 [facility] Bicarbonate [Moles/volume] in Serum 26 mmol/L 22-29 [facility] Alanine aminotransferase [Enzymatic activity/volume] in Seru m or Plasma 14 U/L <41 [facility] Anion gap 3 in Serum or Plasma 11 mmol/L 8-15 [facility] Glomerular filtration rate/1.73 sq M pre dicted among non-blacks [Volume Rate/Area] in Serum or Plasma by Creatinine-based formula (MDRD) 89 mL/min/1.73m2 >60 [facility] Glomerular filtration rate/1.73 sq M pre dicted among blacks [Volume Rate/Area] in Serum or Plasma by Creatinine-based formula (MDRD) >60 [facility] ID Date Data Source [id number] 01/12/2021 01:56:[address] [facility] Name Value Range Interpretation Code Description Data Belinda rce(s) Supporting Document(s) Magnesium [Mass/volume] in Serum or Plasma 1.7 mg/dL 1.6-2.6 [facility] ID Date Data Source [id number] 01/12/2021 01:56:22 AM [facility] Name Value Range Interpretation Code Description Data Belinda rce(s) Supporting Document(s) Phosphate [Mass/volume] in Serum or Plasma 2.4 mg/dL 2.5-4.5 [facility] ID Date Data Source [id number] 01/12/2021 01:41:33 AM [facility] Name Value Range Interpretation Code Description Data Belinda rce(s) Supporting Document(s) Calcium.ionized [Moles/volume] in Arterial blood 1.77 mmol/L 1.13-1.3 2 [facility] Called to and read back byMARK TRAYLOR RN ON AT 0141 BY [id number] ID Date Data Source [id number] 01/11/2021 06:34:44 PM [facility] XR CHEST FRONTAL ONLY [id number] RESULTI nterpreted by:Clarissa Villegas, MDPROCEDURE INFORMATION: Exam: XR Chest Exam date and [...] cardiomegaly. Bones/joints: Unremarkable. IMPRESSION: No acute cardiopulmonary abnormality.THIS DOCUMENT HAS BEEN ELECTRONICALLY SIGNED BY CLARISSA VILLEGAS MDThis document has been electronically signed by Clarissa Villegas MD on 01/11/2021 6:34 PM Name Value Range Interpretation Code Description Data Belinda rce(s) Supporting Document(s) ID Date Data Source [id number] 01/11/2021 08:24:48 PM [facility] Name Value Range Interpretation Code Description Data Belinda rce(s) Supporting Document(s) Bicarbonate [Moles/volume] in Serum 21 mmol/L 22-[address] [facility] Chloride [Moles/volume] in Serum or Plasma 97 mmol/L 98-[address] [facility] Creatinine [Mass/volume] in Serum or Plasma 0.96 mg/dL 0.70-1.20 [facility] Glucose [Mass/volume] in Serum or Plasma 114 mg/dL 70-140 [facility] Potassium [Moles/volume] in Serum or Plasma 2.7 mmol/L 3.4-5.1 [facility] Results called to and read back by Ariadna CHEN AT 2023 Sodium [Moles/volume] in Serum or Plasma 137 mmol/L 136-145 [facility] Urea nitrogen [Mass/volume] in Serum or Plasma 18 mg/dL 8- [facility] Anion gap 3 in Serum or Plasma 19 mmol/L 8-[address] [facility] Osmolality of Serum or Plasma by calculation 287 mosm/kg 275-300 [facility] Creatinine/Urea nitrogen [Mass Ratio] in Serum or Plasma 19 [facility] Calcium [Mass/volume] in Serum or Plasma 12.1 mg/dL 8.6-10.[address] [facility] Glomerular filtration rate/1.73 sq M pre dicted among non-blacks [Volume Rate/Area] in Serum or Plasma by Creatinine-based formula (MDRD) 88 mL/min/1.73m2 >60 [facility] Glomerular filtration rate/1.73 sq M pre dicted among blacks [Volume Rate/Area] in Serum or Plasma by Creatinine-based formula (MDRD) >60 [facility] ID Date Data Source [id number] 01/11/2021 02:43:27 PM EDT [facility] Name Value Range Interpretation Code Description Data Belinda rce(s) Supporting Document(s) [facility] RBCUPy9mMgGCSnCki7OjDrZdXGJjJE7fxpg2C7A6cQLxE9CgiZNpg3zoN6KtP4RoKLVrTOXLZM1UaGHs jb2 [file] Sijq9haxelIrLZoVWtLQZBFx5L+imds6OHHeyEMMi1+9fybbedyzm6fh7yK/91H/+JN7XN/DARLEEN/zkHshP vgYhOlr3eXBMWqP7to6SPpszCV/lgTFr3VwKfa6M32 a3rfggf46+4gatbh0N78n4aujlw9D+Gubvv0980glhekmlf3C+Yxrjx0080ryigxhhr7F+Kvhbp84009 eeswpff3D+Mbeux6501brjdeuoz0u+kiyvy4779axgkpvym/vaVTtpQVqRbkjbk/72J/eEN4IHB/7jT/ Ydp52+w3oG8vI/RkLtQGHQWxgQP4AI8KP0Xz2C7+q7 07arRCk5To1WOe08XQKY+FG5Ez0LspJxt302F/g6w2iteVaVRc/d8kB2gsFqKWq8MmROy9H467CTzdgp 3HdBB3Q6WhZIYC+J7+457pyFdgaKqbkoeK8E/9vbhuKil2rZ+xvqT4056gix+p40+V65Mc9SYp/1wPOt qK9F+n0QNS3cWVcu++gpJws58NdjHp3gPe8yg/ui0v P8RL3i/wZ/On2qXp05XsadHhzr1ZxIh6/mTcAI2Bwj9E2M/9fwfw3/1/B/Kk4Q9I0L9gxAyu3c4eE/De 6J5Q20bgrb+B4a5Iy9rA+u4DfwG/kMvvIq5Qg0zulS71bkrmip1uo259oYp+u7neHs+5aaVzLt94hKO/ X7iluEcR1gVLk5VX/A3/WdmfZKN/Ab+Vaughn+73DKwlL7 8B3PO/i4uns76/fSLvl1hh8Fp7Vp+qz+3vF/O/pvR/8dV/WLcVW/GDEzBF/Vihpmeqn6eUe096blt8/i ag4gHiCjqFxhig/9N9/d/TfzHMh/gD+Rz+6/WeZd3+e7D1R6VAg4Oht8HE/KU5xNlz547V1w+u+M/hvP 7/hkZT52HZ/cC5axXl2s7L/vIE1BLq0BplB/4f+uq8 pPEXlRxJ6m/MahPyh3NPqyjwT0oSP+R182dUY/X4bmAbHHLADs/MDzmI/Ynk7eJ3tW10uma/y1Lwu9+k Vckt/9X8QsvVU2jiWK7azk23ePV9nln9jM6lToe1GA2j3j7LmErvjYZ2GpJ+4LQs/zHeUcT3/yl1CbMn /QWp6csqGAQo9lzR/9ah+e3Wl/9rpH0760Xb/t0Vd9 8EpyzxYLG8lwp3je47Gs0rAygn9uFJ2HU867g9vxA1tE2AkpxE363g6sh7emcaSuAS6/q8hV5fyFNwHg hydFOB0p17XYdcB04vF1+xTwnwpVYn0T2/HegA5560b9GnFgamXj5681d6vUzpPkM59r1YWu4sF7qoAn 1BaveiwxH8vo7M9+qcEdXWmKz8D++sW++FPpp1/saz +VBn/i+Fz0Ewbn+Fu/ouFd0Pnm1Ex3Lh8I57Na0Bu0ut/5PGkHv/PqNe3s5+GH1Ga2kZ/4m1122pbGub Js/UpOwIwqT+hXJ/1WGzb15YgRr4Q/BnhxAO9BdF32UxIFEY0NlA18BlI9ytr1J6r4PtqygU+bjt09aq 1H+chIdnQWw7QwQ43FL/T0XX4dFl/v+zkoUWBz3Rz+ 3iq9kjSIs+C7E9+d4C/wV+Qofn0al3iLP54og98p67fa+DfxB262Qc/yo5pedZGi6DH+GxEdyP0x5V+U H/XtC8+XvqGhXwU/9KtMC/e8j3Jv7sq5/+pA/f22HkeULflSPOl+g+/gd+YS5Fb5g/yWmOkRlfiZq4Di 3z1Mn2S6Y3Rlqz2d+eCbVM6HhNoZy9PEzrWmN2Rvhb vycTyP/inTfhs061R/nPzOdD7BX/WdqG/dFgBF6i3El088dozY41T4QnQEkkJz5CvXCVyIF+KAhyv4YF 8t/N+F+UsoHvlTkuqAq4JAx/VCu6q++01Rbqvva63pggzd+rDLFg3TH/ANzxvycfAd/A5+B3+AP8Cf+O 2Fkhj1fS/PspPgs7iECb6FR/ZJbxcmfBy1XBhNI6D/ jsNug7l7Ps2fgk7itOHh9Zt5A45wS6Kfv/2U6tpgW8u32GjfL0tmo1u15N0f1a1mvhLaQusfBUgbA/hW 17671Nd4+J2qXIHOw62ZxCUdlrKcXpA/1eq/TWs+ilQymj3lrJ49hgJU+pVEev/tw91111O2Y/3qpDc/ vtjR7dQy+Aa+g+/gd+Tf8d0B/gB/ivx0xwfm8XY/sk w/+m0L/wfoeY4SoGu3SmU44Mbp2NcO69i/qT3EicOtdaqnzChwCgpb3mfgblsc0YdOwomgL/AX+Kivo7 7lE0GjeurAhqRaEn4zgEJ3x/YReRKuqRweBswE2tWXzgw9OvDxHxEonsVCa9az21Gqlat1QxbHIgdtqi 5rYb/aa7oG+1WD/arBftXSfhXP7/79Tt60GuNl/7aw X+87grv9UbZH5H+kiM8wfbBfm1nD93xezb52W6acWjoempt66v7y8fpy2DHeC2p0h9e/mvnjLuo0JOq1 2LbOkit9xdwSu5U+gsOn1My/26p45g67w/5c6qN9mBjNk61/o0t8pr8yBkC557H7XP6tefz+uJVIbm9r 1ZmwrU62/Bzct86qgfJvgeyc4d00KStu3ewJha62c5 DhjtliYfnXjYPWw2nC/vaughn/ijVvC/3b9AK4yBn0+oRcXuAo4W+Sj/G43D3Ko4n5WvxLyxy700f/O9GeYb 4qaV317Q2e6Jdv8ojhxP9ZWc/HyFYr8Er5Fm9Cm3Yp3Ww7qZ6xb4TYyuF+C/VdqO9C/e077nTSw2d3wl pww6Sdkw5j3qlclvZ8Ddm9q9aRH5FVrwM+ic1w1rTr a3y2q+yxdnXwO/gD/AH+BH8i/4Qwsk1I+kqNzyaob+rTNiT9B5sPpjPhkR4wcqhVVl/Bd/A7+B38sD/H twb4qK+zchC2lei+9s6luyRnwBX6YF//V/F/Zf1J4etOMo+nBuu5rF1U3/Z6y7Pa6tt93X5UCLYmEF+S f288w6eJvbbQmhCH3FB/qy8M6Vw54jIa/wElN269eb YDvIZWzZlrMMzggJq6OnOK8x88vy4/XifBvmbqaXh0imRx49aj6Cf3rm74S8t4mW8mbA+ZNeRjyMcefc CsxitL+7Y106TJu2qiKVljSndeCcw3lkiPpi6eIQDEGys0R3iVv/4wetX66eqUu45vZ1rvQ1AE3C941f W/Qr+F9xSF9ecmDEeVtr72cEs2VI78ld64mq/7Zea1 HrRe61/rF/bln9RbZ4X3Bo071KZDq/MMFvpVyKrXfreFfpVpB7/2U6zX/r712v+12B/Wuq7zD407tR/g 4/+G/SrKP8r+bKPW+jPfl3gN9kOR/x21/rVR+[id number]+x9H hqP2j/qhn6kz4bulyrnnAl8QCzrdGqevLv1CL363Cm Kv3tc+XgvN4O//j0ZPcomq4rs27+I46dIWil8O/v6/jall8IO/IDd3uzmnoGN++v++6nHkOfF/Yb8y7A /awnwU+lKqW2fzFuf96Ju8qx26x3g1qHwx39LmnippW0/9Oqd0DjnFdvi6Wx5V/Sr6e+oNWyLXJmdm6S 8aety0bqm/HvrVST/zmod+tcvgV+lmbzZ36BC/inTN R36V/wyAt2mu3w/aP/LGw3w500hOZ633+D613GzVdys+W+seubk2N/uFu2nIl7If/grFgQqny47cRaF7 h/2IQb2yClACY8g2AujSfb/pynCwvi2M/AH+NJ9E87282sbrsr5SadY2Haw5f+Q4f+JiO2uHw8KfyO8+ o36xzCmViY1uSBfaA7hy+zHKJd58NW10Hz4QGgqlXh rz4X3htJc681yO+mdn52hn/50f3fdkTWTY29ixm62xU+ZV849EzWW9hO/FtD5YOkC6Zyq4By539q9UuP Eya1/N3BjEpI6cuQWt4mvgDZCk2abJsTev7wZ0Nxpv7frKs1H/b40xFZe+iqHdIs/h5Ymcewp7K4Wc7/ YPm7f4d3f1a7k8/Rtys+uxD+o5SG8s21f+gtGukKeh /3blI46SxiI9jIZ83lam/4llG6s37nX/NbRnq/nIreYjz/LTdv5021Z+ynH+ykO/1gSEi88n0OCcCp2r C/gKvoLfwK/lOT05uzQm/ENgOFyGc0FeaJ/6v7ya11Yf8xnr406enjHt72Zy83jKd/MjvN0AO+6lT3rY r04a/Yev56641t4ah9u94Kb9a/Ad+CKc63JnnZ3d/9 Invdd+xsja7mj5G02I/oKP2i/cOtniZims4UjqLcqV5rhp+N92f4V46zuSy3pw9RW42F35prvDyS8FV/ 0q/xElU8oe7Y/wS7/y0K/iP6YFTq09HJXhon9dtD/w32Sb5VltB6apXcVG/gbJk45O2qiSl2Losmdja0 pxO/DgMNdYh2ILk8l/mfi/aP7prFjIZ/qBg20qyK38 cd9Z1fY1CT7ey62ZyNJf/Gydzj1yRI48jtR26nbL3tXMboC1xb578wB5Jmog+C0eHCdywO/Y8KEi94Wu w2x3J5gutx3xLtYHur8am1524F/7VfXtV+0f9Th/4zW9tOtfP03S/llhwi9OI7znr11Jq+q//CTqT24l yGdcSD/3qy93Fcggqm/Ar/tk62z6zncmzp8w55f76Q XOt+cziucV/HbVu+4Lu3Fm3LQhJ0ZwFt/3C2nwB/oQ6LsWZoU/Lk0ywhaUlgW4gX+oyuv6IzabjF/WfN HjrkOmVKpf7PbSG7fPkSC7nm/VO0212ziE/AV+nCw38DpWwx07YwWq0X3qj5F875x4QEdg8jp4/JdW+6 I9jyKD9f9/7Nt+FX2wb/lP0iAea9fwxa/7VYwnfduv rmR54gkNevik30YNg/Pt8Yyh/em0pqi0Jt4Wd8288WVNc/aPuqG+XtbRh5oFkuB267W/3l1R7hdZ+1XH 5qaq3pzX9IhBLjU1MXecV5sOnhV9uWy27r7Jvgrq2ki3n/h7A7i74G354UlIv+V7qg0iaZQUI/u/PexX WZ46/0n9hZt6/u0+wV/enc5835T/546xtVyNt32yf/ ei02LF9b28orQ7Db7mfDJ+Fv8L04PP/ZRI1/g4v57Z6Ef+vMkSijX4Fu1o4/u4wK/cSj9JvkX+FHwFv4 HfwDfwa/3wP45M6yIAc4CIj/vsklLTtMhc5Dy+MB+OQC9Eh1ChIacS/Yo5RonN2UyPhsFH7j7x3Nh72I tM1/5vn3V+o89aL/RZ+mSftX/Ys33NI1J7vI/l3mW/ 5im9tJjXx+fccr/4t5xIidw/rV/lmeR+01z5fnz5awYn2M1uY4sOviq043k0sx44bpEb0o9eBjjohjra /d++7mh441x9rS7lkw+5p214yk3/R9nWPv+agu1spmIK0lyWkh0sj24F23e51vBDvYSaols+mD1a3kF+ fyiq2lipV5X39YFd4IkUFNquC99Wp1o58ivLNOyNls nI/cFMP+MLZHcKW12x+Pmaa60jHPE/g4Ff58WY/lI3DNyzu4+o0T1uPri1gQyhPy1t/e9DcLOU/NpPGW m/quX8rDpCiz83hDOPu9H2SJFkcQQ/9o+T8MvBTSEeUSbG9+K6qZvtqcW+QHkmvjtRngV+fj6a3HjtGy X/jf3B+KexPxj/YXQF1ntd3td5tGr14Fr0dwG9WGI/ MNMOvoPfwe/tB3Ju1eQB7fzB3N+hQQzN43biT+14iwTsf0ldB6H2J3/pfRdvihm79YqzztL/qNpC50B7 [id number]+Av+uwEZ1Cm/EHCbgSR0923B71ciHVkCtiL/8N+1WmG/gN/BzfW3q8+8McfAe/g4/2bLUf Icf0LpxDLc0aawk6llEu/mp4zb/Da/5gPyCc7Fm/hy q8Te9Ez3Jg2Fl0Rt7D12oY+uerwG68wL62iXNF4JfcRRVKS7dqiXq14h4Yw9DDlXL+fYR+3WYx5au3Ty ERqbfi4g5go6u8L3/POPxjNudrG9a8D+rbJ/gT/AV+1H3Yi647s7BnU0jv89VmMXeI8hQ9PPEj+AZ+3a cbo+7TjeHgd/A7+QC7Bv31m55OUrbXqk3EcWi1DXD4 B8es/g2d7W6eijcrN/XF+hRvqf48Rv9GYixmVzsyPmdGr/aM8+1I7jrUYSgUkI1hj6H/wK/9lLHQnhfa 67Y9dN3sNYSxouCWaQpP4+2xlz6v7DYe0Dhz86Yd/bHK/xoZ3J9R9R+93dUT7Cotm/RFA1bzkj04fw4X M+0NQ60OcI+wwL6i7pV+Mp7Z+rJKb6a82oOZz+A38A 18A7/gR30mdylA7S/aUmisjmV8tFmE/51X/x385murOwGxtgeboinvX60l+XeGfrXnuCk1/27RXP59wt HfvN7d/1eCb8+7K8UFW4/Qr/X0oo655Vx2zP8SudNpFS0r5vYs6Ag3Pnbb617evd57oai/U+u+81QFX/ F8Qz4N+pp9oRaXlh4/Qe7823dtq3s2j0En/06t9e/U iecn+Uu35c7r8JxOutdhcUU/C0myOFGB+NeV6f3ZaX25pwwbz8vSmeX0Vg0v+7+z1Xg1W+0HeRx32fka v2y2Wv/NKfCqgGbeZG8R7+p6cfJ2zsRbn5mQ2iOksn90nf5usuL6/g1YdMrro18+Yb+g8D3u7sPhky2t 8qRd27nebheveavhMur+A5fCkqH9+ed8Zp9/7pHnPv 8c/zex8e7daTWx27xKCc/ruzy128Klrr//Xi3S4O/170k/+8DG9hw7at5DfaLS1+dh34t8W13JBRMCq/ Ak22g0p2eeM43a0/d57+m7vjEO+F7/Rr/wff45/qinQ088j52A6+P15yxS4eszLn84n62RLo787kcra9 u60VVaC/UDr1u2Qxw0iF+g7Y7kY4zrvT+90M1HON08 Wv/MOfQr1Y/wS7+s1I3h8frz6dicJP+CkpOhY56pC9lo3P1T90nP+tXE/cGJ+5OJ5dj7ZL7B2C/QrzI9 wZ/7cz2mgVO9jK+BNRi4JFcdO6iIv+YsfWNOBb/h+GI2UUtiw6uK5f60VQ1uyMgB+faJ8+1zDvAxPk+M dmSrU297t0C3adcaL38gphST5pJL+Udg9ftLc9+cb5 018n0gtl2yX6/Bx3yE8+1Q88rqbqjBlC+fo6H7vG/j/NV+Py8V97Rd1Bb4Uj6Fx+C94Oh1Eq1WV/VdV9 F0EX76Sh9Tjsx65aqf/e0lV2aPHc/s38Cfi4yg1Ed/s6sqf3rL40TQ2OrItqb0PfiNSfl1T0/Bd/A7+B 3fHSjPAH/iedRXyj/SklofLS3/BNsg6NW2AN/1VdQX /q+ZBtsukXgwhUW6Q2+T27Qf0mYJSx5S6qL7JQ6dj0vxppnbbzqRZ0AorM66Ux0t2W6B2PaM/wyrGfI3 5O/IH/CjfI5KdxLxeXp3LbGJ+tVqC+Wp88/Nwg11jM3ZE/i/WvB/Declan/Jacqueline/9dEC75OwF/AN/FoPLqv9 /OY6bYIchHCEAV3ZjW83Dxkrs/91/F+/rKkn5J3yfn 15zb/I6T7h3IX8R2/9lAX/Vwv+t1miccjyJhkqll+r5XX/z9ghs9pxt4o68s47mzvx/TXX02so9axmk/ +d3SI2TE/BV/Ab+A18A9/Ar/5v0An5i7H+fXW0Z+eXr2g3H0K+jvNtAuK1e4U3dY/XqPXvGrX+XaPWv2 vU/d81yp/MGnX+wC1WhrPozMxwVimj/60S3w4T/gC/ 7uOs0K/4InxW0z5qj/Z/41p9sonGxKe78a3NqnCiinckL9bWbMr882NXz/CD5h51l/IMoDa0EkrG/gB/ gj/ZJ54lfngRtn1eMp5mJa4kf/lG0fP3kcErOa85gGV5P8CaxF9QdSqe2vvcj/CVq1d2u79s83pA4bqa /open shank coverer/M3sHhmPCvCGplLdB2+Nr5Wto1ut+LJ4xCP5XL MI8gKWEAMj3oKCSmrpzT8YQrd0Z0/dtOI6xgNp/NimGtZ1lpo28prZV9H6hRcp9DOFVG/bS+LdXW/Czz 3j98mhfhj2Xm0FlX0Wjs9ba4i7p6+HXrHHfTkD5K4B0Zyeo1loVd0rMW+1gcsQm9Hv+1bCowNQpHcY99 MQalVNB7HxorSfpD+sme/EyblKDNgbgGZLKkLgwX1v h6+2vephkCh0EegkIr8J6pz3P4LAqBYhc+km/RkaJ8Zvl2Gi8CHke0/O78TnHFswG/X19SwBrsS7OMCO kP1iHwvbmVR6mxG4Pb2tpP42kCnDTOJyErQN4MRUs0VUImAKh+Lubyu25JhqXYnZOEw3VLt7JgGYahsJ q05ocVAt6MLl2L5MPizjkZsWueJOleZK0fO/Dy/Donald DY4fiilG8bxiKIuhUBRwMZspx54vTqpuRJheErZnIVyuSM42fIh1Rt7Z2lC1G0ZuiKdHNzhqKTnKChWf 0YCpaQgCXvAw6nAmGVjDW+N2j3xeDxSCG3iOa5DpTZIyT69ZlPR5YPDX5xJ5mf06J9mMES5+Q967QUuZ [place]+tw/Au1etlnoT04yG9bGK5Hojl9WBIX+N4ukFpy [file] biAKMDAwMDAwMDUyMyAwMDAwMCBuIAowMDAwMDAwNj ZwROPlTDJuFE7xFpShOVUwXXF9ZGUsFNBcALXpqvHMGGJeCAHzLVj8BHVqGFLwBAEpKSgrHBPlOEUaQK S3AZDtSOOmGZ5qQbTiFGReXHNcIOPeMJCaCMVxkpBKPCWhONYjSTT1JJAdTJItREDhKRinJLUjEOIcJm f9BDQcNOVaFG6nTvLoBNVeEIS0RQHmJJZuRBArcnLY NSTgZMJ8Fwp3TBDhTQRqNMBnOHjrSVZbJTBnUiG0KRDcIVJkCX2hDuJiRVYmYEY6OoPgUKDfFFKemaFO PYRoRBKeKLS1QdHvXMHdNFWfAQjmYBNcQISoHOVmBWG7FNM5NDUwXzBbVOwcYFNHORpWW2JwgzVoZqOK Z2mpCi1yHsApHYCWH5Nqb2VgUWBfSFJNZr9+ClO1AUM7nSGlPxb4NDO7PicqWTNPJo== ID Date Data Source [id number] 01/16/2021 08:30:45 AM EDT [facility] Service Cmnt XXX-Imp : R HANDMicroorgani sm XXX Cult : No growth 5 days Name Value Range Interpretation Code Description Data Belinda rce(s) Supporting Document(s) ID Date Data Source [id number] 01/12/2021 12:07:11 AM EDT [facility] Name Value Range Interpretation Code Description Data Belinda rce(s) Supporting Document(s) Calcium.ionized [Moles/volume] in Arterial blood 1.88 mmol/L 1.13-1.3 2 [facility] Called to and read back byTahir SANCHEZ RN ON 10E AT 5089 BY 2623 ID Date Data Source [id number] 01/15/2021 09:50:27 AM EDT [facility] Service Cmnt XXX-Imp : L HANDMicroorgani sm XXX Cult : Gram negative cocciin anaerobic broth.Called to and read back byHuong Hanley RN on 10E at 1452 on 01/12/21 by Vanita kaur anaerobic broth. Name Value Range Interpretation Code Description Data Belinda rce(s) Supporting Document(s) ID Date Data Source [id number] [facility] Value [facility] Interpretation Code Description Data Belinda rce(s) Supporting Document(s) Ammonia [Moles/volume] in Plasma 28 umol/L 16-60 [facility] ID Date Data Source [id number] 01/11/2021 01:14:17 PM [facility] Name Value Range Interpretation Code Description Data Belinda rce(s) Supporting Document(s) Lactate [Moles/volume] in Serum or Plasma 1.4 mmol/l 0.5-2.2 [facility] ID Date Data Source [id number] [facility] 08[facility]02[facility]Imp : NoneMicroorganism XXX Cult : 30,000 col/mlEscherichia coliGreater than 100,000 col/mlStreptococcus mitis group20,000 col/mlEnterococcus speciesATTENTION This species is always resistant to cephalosporins, aminoglycosides(alone), clindamycin, trimethoprim, and trimethoprim-sulfamethoxazole. Full workup of above organism(s) has been requested byDr. Elba Mcgee on 01/13/21 Name Value Range Interpretation Code Description Data Belinda rce(s) Supporting Document(s) ID Date Data Source [id number] 01/11/2021 01:24:28 PM [facility] Name Value Range Interpretation Code Description Data Belinda rce(s) Supporting Document(s) Procalcitonin [Mass/volume] in Serum or Plasma 24.13 ng/mL <0.[address] [facility] (NOTE) < 0.25 ng/mL Bacterial infec tion unlikely,particularly lower respiratory tract infections.0.25 -<0.50 ng/mL Low risk for progression to severe sepsis/septic shock. Localized infection is possible. Measurement done early (<6 hours) after systemic process starts may still be low.0.50 - 2.00 ng/mL Moderate risk for progression to sepsis/septic shock. > 2.00 ng/mL High risk for progression to sepsis/septic shock. ID Date Data Source [id number] 01/11/2021 06:22:08 PM [facility] Name Value Range Interpretation Code Description Data Belinda rce(s) Supporting Document(s) Magnesium [Mass/volume] in Serum or Plasma 2.0 mg/dL 1.6-2.6 [facility] ID Date Data Source [id number] 01/11/2021 06:22:08 PM [facility] Name Value Range Interpretation Code Description Data Belinda rce(s) Supporting Document(s) Phosphate [Mass/volume] in Serum or Plasma 3.9 mg/dL 2.5-4.5 [facility] ID Date Data Source [id number] 01/11/2021 01:27:59 PM [facility] Name Value Range Interpretation Code Description Data Belinda rce(s) Supporting Document(s) Color of Urine [facility] Clarity of Urine [facility] Specific gravity of Urine by Refractometry automated 1.009 1.003 -1.030 [facility] pH of Urine by Automated test strip 6.0 5.0-8.0 [facility] Protein [Mass/volume] in Urine by Automated test strip 30 mg/dL Neg [facility] Glucose [Mass/volume] in Urine by Automated test strip Neg [facility] Ketones [Mass/volume] in Urine by Automated test strip Neg [facility] Bilirubin.total [Presence] in Urine by Automated test strip Negative [facility] Hemoglobin [Presence] in Urine by Automated test strip Neg ative [facility] Leukocyte esterase [Presence] in Urine by Automated test strip Negative [facility] Nitrite [Presence] in Urine by Automated test strip Negati ve [facility] Leukocytes [#/area] in Urine sediment by Automated count 94 /HPF 0 -[address] [facility] Erythrocytes [#/area] in Urine sediment by Automated count 8 /HPF 0-[address] [facility] Leukocyte clumps [#/area] in Urine sediment by Automated count None [facility] Bacteria [#/area] in Urine sediment by Automated count Non e [facility] Mucus [#/area] in Urine sediment by Microscopy low power field None [facility] Crystals.amorphous [#/area] in Urine sediment by Microscopy high power field None [facility] ID Date Data Source [id number] 01/11/2021 11:00:17 AM [facility] 5.8Serum levels of PSA should not be int erpreted as absolute evidence of the presence or absence of Cancer. Results obtained with different methods cannot be used interchangeably. This method is manufactured by [employer] and is an electrochemiluminesence immunoassay. Name Value Range Interpretation Code Description Data Belinda rce(s) Supporting Document(s) Leukocytes [#/volume] in Blood by Automated count 19.4 10*3/uL 4-[address] [facility] Erythrocytes [#/volume] in Blood by Automated count 3.07 10*6/uL 4.6- 6.1 [facility] Hemoglobin [Mass/volume] in Blood 9.1 g/dL 13.5-[address] [facility] Hematocrit [Volume Fraction] of Blood by Automated count 26.8 % 4 1-53 [facility] Erythrocyte mean corpuscular volume [Entitic volume] by Auto mated count 87.2 fL 80-96 [facility] Erythrocyte mean corpuscular hemoglobin [Entitic mass] by Automated count 29.5 pg 27-33 [facility] Erythrocyte mean corpuscular hemoglobin concentration [Mass/volume] by Automated count 33.8 g/dL 32.0-36.0 [facility] distribution width [Ratio] by Automated count 16.2 % 11.5-14.[address] [facility] Platelets [#/volume] in Blood by Automated count 438 10*3/uL 150-[address] [facility] Differential cell count method - Blood [facility] Neutrophils/100 leukocytes in Blood by Automated count 86 % [facility] Lymphocytes/100 leukocytes in Blood by Automated count 6 % [facility] Monocytes/100 leukocytes in Blood by Automated count 6 % [facility] Eosinophils/100 leukocytes in Blood by Automated count 0 % [facility] Basophils/100 leukocytes in Blood by Automated count 2 % [facility] Neutrophils [#/volume] in Blood by Automated count 16.93 10*3/uL 1.8- 7.0 [facility] Lymphocytes [#/volume] in Blood by Automated count 1.07 10*3/uL 1.2-4 .0 [facility] Monocytes [#/volume] in Blood by Automated count 1.11 10*3/uL 0-0.[address] [facility] Eosinophils [#/volume] in Blood by Automated count 0.02 10*3/uL 0-0.5 [facility] Basophils [#/volume] in Blood by Automated count 0.30 10*3/uL 0-0.[address] [facility] Nucleated erythrocytes/100 leukocytes [Ratio] in Blood by Automated count 0 /100{WBCs} 0-0 [facility] ID Date Data Source [id number] 01/11/2021 12:26:47 PM EDT [facility] 5.8Serum levels of PSA should not be int erpreted as absolute evidence of the presence or absence of Cancer. Results obtained with different methods cannot be used interchangeably. This method is manufactured by [employer] and is an electrochemiluminesence immunoassay. Name Value Range Interpretation Code Description Data Belinda rce(s) Supporting Document(s) Albumin [Mass/volume] in Serum or Plasma by Bromocresol green (BCG) dye binding method 3.0 g/dL 3.5-5.2 [facility] Bilirubin.total [Mass/volume] in Serum or Plasma 0.4 mg/dL <1.2 [facility] Calcium [Mass/volume] in Serum or Plasma 14.0 mg/dL 8.6-10.0 [facility] Results called to and read back by QUINTEN ASHBY RN [id number] BY [id number] Chloride [Moles/volume] in Serum or Plasma 89 mmol/L 98-[address] [facility] Creatinine [Mass/volume] in Serum or Plasma 1.25 mg/dL 0.70-1.[address] [facility] Glucose [Mass/volume] in Serum or Plasma 118 mg/dL 70-140 [facility] Alkaline phosphatase [Enzymatic activity/volume] in Serum or Plasma 153 U/L 40-[address] [facility] Potassium [Moles/volume] in Serum or Plasma 3.5 mmol/L 3.4-5.1 [facility] Hemolyzed Protein [Mass/volume] in Serum or Plasma 7.2 g/dL 6.4-8.3 [facility] Sodium [Moles/volume] in Serum or Plasma 133 mmol/L 136-145 [facility] Aspartate aminotransferase [Enzymatic activity/volume] in Serum or Plasma 42 U/L <[address] [facility] Hemolyzed Urea nitrogen [Mass/volume] in Serum or Plasma 21 mg/dL 8-23 [facility] Osmolality of Serum or Plasma by calculation 280 mosm/kg 275-300 [facility] Creatinine/Urea nitrogen [Mass Ratio] in Serum or Plasma 17 [facility] Bicarbonate [Moles/volume] in Serum 19 mmol/L 22-[address] [facility] Alanine aminotransferase [Enzymatic activity/volume] in Seru m or Plasma 16 U/L <41 [facility] Anion gap 3 in Serum or Plasma 25 mmol/L 8-[address] [facility] Glomerular filtration rate/1.73 sq M pre dicted among non-blacks [Volume Rate/Area] in Serum or Plasma by Creatinine-based formula (MDRD) 61 mL/min/1.73m2 >60 [facility] Glomerular filtration rate/1.73 sq M pre dicted among blacks [Volume Rate/Area] in Serum or Plasma by Creatinine-based formula (MDRD) 71 mL/min/1.73m2 >60 [facility] ID Date Data Source [id number] 01/11/2021 12:26:47 PM EDT [facility] 5.8Serum levels of PSA should not be int erpreted as absolute evidence of the presence or absence of Cancer. Results obtained with different methods cannot be used interchangeably. This method is manufactured by [employer] and is an electrochemiluminesence immunoassay. Name Value Range Interpretation Code Description Data Belinda rce(s) Supporting Document(s) Prostate Specific Ag Free [Mass/volume] in Serum or Plasma 0.8 ng/mL [facility] 13.9 ID Date Data Source [id number] 01/02/2021 04:46:38 PM T [facility] Name Value Range Interpretation Code Description Data Belinda rce(s) Supporting Document(s) Progress Note [facility] YPEPEt0lXdZUKkPf93/UNJokIBGsv6MrFBfzHRq4EIdyFHVrM6GsFVO2eE0eALQ1BDnRTpZmSbDyALU5 lbm [file] 3/4vsq3Jf+q2/MC5Nc7qsh/julián/Dk7l4+bLVns+HJ+d1fsq0HXgd/tEafLvMW++SM7AP8Kl5nEc8wx/P [file] T8B0XeT8IvS7UuLZC4LoDsGW0TSt2ABmJ3MZY0kCMdXr0HZrB4QCLTVnOsKL3DXYk= ID Date Data Source [id number] 12/22/2020 09:06:57 PM EDT [facility] Name Value Range Interpretation Code Description Data Belinda rce(s) Supporting Document(s) Progress Note [facility] VTZRPo1zVcDAUkEp90/CSPrcVSQgr5MwZOlpRBm9REahVMOrD0LaOPI6uC2fLNB4AFmRYfPqJzPjKEV8 lbm [file] table games dual rate supervisor+H6IdLDvS8Lj4samfyp5nkPmz3MFsGdT9iqbOavjj6TpnjPtre55H8ON7jDh1Z9MCr6+j1/lgF5jq [file] VQ9REUIKG8VEBa== ID Date Data Source [id number] 12/22/2020 09:06:52 PM EDT [facility] Name Value Range Interpretation Code Description Data Belinda rce(s) Supporting Document(s) Progress Note [facility] WQVHXx3eCqGMEuQp03/ENGlzTVAnj7UwAFjyEXd4LTpiDEEoZ8EmNLP5tZ4dZML3EUpFPaChEjRnTTY5 lbm [file] fPgS6S53KhutjemKJtVqXZpmOyP7I5DJE1OpOUPgB9BAlPo2i4YELzekWtO1GTJA6EoShiDruJdT/+MEJÍA [file] AgICAgICAgICAgICAgICAgICAgICAgICAgICAgICAg SQZgXJMkASZePJCyBCMpGDHhBEJlLEAcQKEsZFPaEATlCEZcOXZnCJNxDIXqPW7NAGVrKVBbYHNbRXOn ICAgICAgICAgICAgICAgICAgICAgICAgICAgICAgICAgICAgICAgICAgICAgICAgICAgICAgICAgICAg ERWzODMeZAJrHPNdFFLpCSHyFIKhBURxFYDtWU3QBY AgICAgICAgICAgICAgICAgICAgICAgICAgICAgICAgICAgICAgICAgICAgICAgICAgICAgICAgICAgIC JrEYVoZXDaCVUpSKCeAVOyVIIzLVVbTCTgCBFcFDQvOTHxLNLxFE0XCFFjGICjAIHnPABaYLWuLYMgDC AgICAgICAgICAgICAgICAgICAgICAgICAgICAgICAg WQSyPFQiJDLpXOChHPRcPDAnHGEfFQFsGOPqGOFdDPWnDKZjCPXbZXUmDDMnZOXqWU5YDXUoSMKoFBFv ICAgICAgICAgICAgICAgICAgICAgICAgICAgICAgICAgICAgICAgICAgICAgICAgICAgICAgICAgICAg ICAgICAgICAgICAgICAgICAgICAgICAgICAgICAgIA 0KICAgICAgICAgICAgICAgICAgICAgICAgICAgICAgICAgICAgICAgICAgICAgICAgICAgICAgICAgIC GmOBTxABRuPASoCVGqHKOmIQSnQMBzSLQdWXZnIZTaIXNlLUBoZQWrSQ4PLZAxZVKsNVYlWABdXPYpEH AgICAgICAgICAgICAgICAgICAgICAgICAgICAgICAg KIPwQDGlIQXkYLJnTHZaITIjBOHtSRAvYHWfUIIcKNWsZFKuKFVqTGPrZMIvSOHlRLPmWT7TMXQfUMTp ICAgICAgICAgICAgICAgICAgICAgICAgICAgICAgICAgICAgICAgICAgICAgICAgICAgICAgICAgICAg ICAgICAgICAgICAgICAgICAgICAgICAgICAgICAgIC UqXY9THXSlRKYnLMCaSUUwJADoPTLfQVKpMAXeKQAiAARfJWEwGQRnGTHqKHQcOLKvJMNkTWYqZKDjVI LhETLmCDDdTTCiJRRlBTKyCGWxSUHlCDSmFOBaHYFsTPMyQGOiAKFsHSVuVQ6IQJZbAJBnITWqJSFjDT AgICAgICAgICAgICAgICAgICAgICAgICAgICAgICAg SWEzODTeKBDgGMGxNXHcQWIuCWPeBXRzAQWpZBPnQRJsHCTeILUkOKUqPVNeJDUdDLEpHGMyOW1CYK34 uSJdp0M9FEFkYP7tqkw/Hm9IACxpzsEliKTtMH8HAjJhZJ5vsr2JGpHaYO6jqa3EJXuVWtGsE0K8vDIf ZNQkJAFWHqTzO80uWTxwKd60FKjwWEQgYtMvOHw1Wx 8GRqRtY1keAFZjDsB9WIAcUdDvUJizEK3Ee5KqlUJmJXj+Oi4AMN6zp2RqWDujGCRpIY5omt6ANHiGKj CrE2VtveU6THIeQOVtLw8XPNMiJMPwwUEtLPPoEUCQSxWqX9XmvQ18AZOJNt9+DQplbmRvYmoNCjIwID Qfv1KzXRz1KZ6FSUShQSh1zXEgMIZuK2Nxo9LqDb53 DJBeRoegDMHjMKGSIIDfokQcRX9mKQNeAZ1qHL2rCFTpMNGaBhTjHGSUOY9HSWNhJGImpBEpTRAfNREF FN6XSBtpXDB8MIZmuwLakKNuBNkyHX7UTHFcqyVhCXqkRJVMBIc+Sp2VVJ1zi4EwAJivGZOlPC0xae7X DJzRGzIpI7Y1dEBsN1O1TYuuVq1CEFFiFQOeKQgqKD YMQIhpEP4OWF3cufK9LZ8ZvJZlUEWrXQYowFQlAEm7G36buMFkGDrxVH5ALEO+Immanuel+Jt4CEIZyNZRhCY FkJbTiZQADUuCzE1VxC3PQr6MaO0SvWF60pHwjtaMzHRlgPW6JXJ7cZMDtKFHAHL0EjQAvaD7qwwQmKM LdZWTBWvVqN83raDQvKWFvSQW7ZXWqMs9VQEIgN6En qbMsePrdpkTcNCDvKKJHWJ7WTDotpmHnxNFyfRavNC81zVsePL7LYo0ERqPsLJ5mhi2NzUOpKz0DMKXf Wy9QDZPtIDBkLVIxNGK8BYNjEhHrMJueDKDdDLSdRFB8FRIqZCBtHP4PQnLgHYPoGXP7VgAqIJKbCBDp ci9GINMvVLHkJOH4QXDhQOPfWSGuCYkzCJOdCNFyPJ K4UPAqCVKfGH0MPvCpKTSpKMCjXDfhDBYqWCEyei2CWNDtLSCnUJI7OIYpIWZdVOEmURolIDGmZGOtFP PbTDPfIYZbHL6MRiEzGXKvNDY3INMdKJAbDWHziw7TVKZjWCZhJpebGlLnGWUgISPdAHrrWCWcXPOrEY s0KAKbKUTkZK5ESdMeLWTsXQJnPGFlSKOaVNUjeb0K XYPtYCHjAQH9QzLiVTLoUPWvVCoqBQJsRPI8QuU9RBRhYHWwOT5XHqTmVCYmBHW7YWAxQKDpEISzzi9W PAEqCKPfYwI7QpDfWLAdWYFyBLvzRHNnGYY3NhbuVWWmXYNgFQ8IHdGgLMBvYKG8LwtfNMTbMMHdqz1K QQSgQPHiIqacDUVnYTOiOHYgWMmjIJWjGYW8Nzj6II HtITSzNJ0MJvYjWOIsEVq3WRruVQKdQGPjuh7OCMRlVFXjVDY7BhRlOICnSRMdMAu7ttFmiIJaKUm0YG 2LG2KjfuMpVgYTZn7Ao948LUZrVYTcWp9BG0twHz8iMAXmHWZWSg0WCKv6BLK0ITC6VQzrTzydDCxpTq W5C7U5QTewSKSzSGRnMpZ+CMu3DyAmCWjmAMN4U9Ah QPY8DsavSARgPCH0CTBjCdQvJf0kQMPCRy9+GPzceTBrlPxtGINEKzM3PHR8AGjuCEVHOj1S ID Date Data Source [id number] 12/20/2020 11:50:25 AM EDT [facility] Name Value Range Interpretation Code Description Data Belinda rce(s) Supporting Document(s) Leukocytes [#/volume] in Blood by Automated count 12.7 10*3/uL 4-[address] [facility] Erythrocytes [#/volume] in Blood by Automated count 3.19 10*6/uL 4.6- 6.[address] [facility] Hemoglobin [Mass/volume] in Blood 9.8 g/dL 13.5-[address] [facility] Hematocrit [Volume Fraction] of Blood by Automated count 29.3 % 4 1-[address] [facility] Erythrocyte mean corpuscular volume [Entitic volume] by Auto mated count 91.9 fL 80-96 [facility] Erythrocyte mean corpuscular hemoglobin [Entitic mass] by Automated count 30.9 pg 27-33 [facility] Erythrocyte mean corpuscular hemoglobin concentration [Mass/volume] by Automated count 33.6 g/[facility].0[facility] width [Ratio] by Automated count 14.5 % 11.5-14.5 [facility] Platelets [#/volume] in Blood by Automated count 428 10*3/uL 150-[address] [facility] Differential cell count method - Blood [facility] Neutrophils/100 leukocytes in Blood by Automated count 87 % [facility] Lymphocytes/100 leukocytes in Blood by Automated count 6 % [facility] Monocytes/100 leukocytes in Blood by Automated count 6 % [facility] Eosinophils/100 leukocytes in Blood by Automated count 0 % [facility] Basophils/100 leukocytes in Blood by Automated count 1 % [facility] Neutrophils [#/volume] in Blood by Automated count 11.06 10*3/uL 1.8- 7.[address] [facility] Lymphocytes [#/volume] in Blood by Automated count 0.82 10*3/uL 1.2-[address] [facility] Monocytes [#/volume] in Blood by Automated count 0.80 10*3/uL 0-0.8 [facility] Eosinophils [#/volume] in Blood by Automated count 0.01 10*3/uL 0-0.5 [facility] Basophils [#/volume] in Blood by Automated count 0.06 10*3/uL 0-0.2 [facility] Nucleated erythrocytes/100 leukocytes [Ratio] in Blood by Automated count 0 /100{WBCs} 0-0 [facility] ID Date Data Source [id number] 12/20/2020 12:37:[address] [facility] Name Value Range Interpretation Code Description Data Belinda rce(s) Supporting Document(s) Albumin [Mass/volume] in Serum or Plasma by Bromocresol green (BCG) dye binding method 3.4 g/dL 3.5-5.2 [facility] Bilirubin.total [Mass/volume] in Serum or Plasma 0.4 mg/dL <1.2 [facility] Calcium [Mass/volume] in Serum or Plasma 11.5 mg/dL 8.6-10.[address] [facility] Chloride [Moles/volume] in Serum or Plasma 96 mmol/L 98-[address] [facility] Creatinine [Mass/volume] in Serum or Plasma 1.28 mg/dL 0.70-1.[address] [facility] Glucose [Mass/volume] in Serum or Plasma 146 mg/dL 70-[address] [facility] Alkaline phosphatase [Enzymatic activity/volume] in Serum or Plasma 144 U/L 40-[address] [facility] Potassium [Moles/volume] in Serum or Plasma 3.6 mmol/L 3.4-5.1 [facility] Protein [Mass/volume] in Serum or Plasma 6.8 g/dL 6.4-8.3 [facility] Sodium [Moles/volume] in Serum or Plasma 134 mmol/L 136-[address] [facility] Aspartate aminotransferase [Enzymatic activity/volume] in Serum or Plasma 30 U/L <40 [facility] Urea nitrogen [Mass/volume] in Serum or Plasma 10 mg/dL 8-23 [facility] Osmolality of Serum or Plasma by calculation 280 mosm/kg 275-300 [facility] Creatinine/Urea nitrogen [Mass Ratio] in Serum or Plasma 8 [facility] Bicarbonate [Moles/volume] in Serum 23 mmol/L 22-29 [facility] Alanine aminotransferase [Enzymatic activity/volume] in Seru m or Plasma 22 U/L <41 [facility] Anion gap 3 in Serum or Plasma 15 mmol/L 8-15 [facility] Glomerular filtration rate/1.73 sq M pre dicted among non-blacks [Volume Rate/Area] in Serum or Plasma by Creatinine-based formula (MDRD) 59 mL/min/1.73m2 >[address] [facility] Glomerular filtration rate/1.73 sq M pre dicted among blacks [Volume Rate/Area] in Serum or Plasma by Creatinine-based formula (MDRD) 69 mL/min/1.73m2 >60 [facility] ID Date Data Source [id number] 12/20/2020 12:47:30 PM EDT [facility] Name Value Range Interpretation Code Description Data Belinda rce(s) Supporting Document(s) Prostate Specific Ag Free/Prostate specific Ag.total i n Serum or Plasma 3.4 ng/mL <4.0 [facility] Serum levels of PSA should not be interp reted as absolute evidence of the presence or absence of Cancer. Results obtained with different methods cannot be used interchangeably. This method is manufactured by [employer] and is an electrochemiluminesence immunoassay. ID Date Data Source [id number] 12/15/2020 05:14:47 PM EDT [facility] Name Value Range Interpretation Code Description Data Belinda rce(s) Supporting Document(s) Progress Note [facility] AMNSNh3hSmZXZhHj17/SMSxvCNRcu6JaDZzzXVq9RBpjCTNzS1AlRAX1iA2gOSA4DErZXdOuNhTxBKY3 lbm [file] [id number] ID Date Data Source [id number] 12/15/2020 07:01:26 AM EDT [facility] Name Value Range Interpretation Code Description Data Belinda rce(s) Supporting Document(s) Progress Note [facility] ZBRKBl7gYvXFJjWn85/VHErvNVWzf8IiZTapPHe6KHjuISFyB7AwNCI1qI7uZBQ6JItJLfGaJvUfLAE3 lbm [file] AY/2D19n2s75EnHI4XQGSb/HM1a+a1q1P90S+S5c78 r1Aejoe9r7fxyiBTeVfgXD5ghzIWuBfSQWhiASac28iiwvg2RUm66D0uNN2aH3cLpbxy4QFOS/hq9Wfr cdl a driver+ChA6nxlJQQgDQks7EnU9iMiKNJiiiMGuufbP3LixSlzTinFNUC7MvB+OV+4DXgLeoGBIHRgFe+Xo [file] ScV9PAVuHGEaTqZ3XISbOdfoBwEbNV4LUz0SGmF1WYF7jJBrKu0BDlYfACeMSoOoYP9USRu= ID Date Data Source [id number] 12/15/2020 07:01:[address] [facility] Name Value Range Interpretation Code Description Data Belinda rce(s) Supporting Document(s) Progress Note [facility] UPSBZp5eEnMRTlBf01/IUYciITOgx6MsCGkrKNb8PRptKECvO1QyMCI3pQ4tJEH9LIeNEpOwHuSnTFX1 lbm [file] ICAgICAgICAgICAgICAgICAgICAgICAgICAgICAgICAgICAgICAgICAgICAgICAgICAgICAgICAgICAg ICAgICAgICAgICAgICAgDQogICAgICAgICAgICAgIC AgICAgICAgICAgICAgICAgICAgICAgICAgICAgICAgICAgICAgICAgICAgICAgICAgICAgICAgICAgIC AgICAgICAgICAgICAgICAgICAgICAgICAgDQogICAgICAgICAgICAgICAgICAgICAgICAgICAgICAgIC AgICAgICAgICAgICAgICAgICAgICAgICAgICAgICAg ICAgICAgICAgICAgICAgICAgICAgICAgICAgICAgICAgICAgDQogICAgICAgICAgICAgICAgICAgICAg ICAgICAgICAgICAgICAgICAgICAgICAgICAgICAgICAgICAgICAgICAgICAgICAgICAgICAgICAgICAg ICAgICAgICAgICAgICAgICAgDQogICAgICAgICAgIC AgICAgICAgICAgICAgICAgICAgICAgICAgICAgICAgICAgICAgICAgICAgICAgICAgICAgICAgICAgIC AgICAgICAgICAgICAgICAgICAgICAgICAgICAgDQogICAgICAgICAgICAgICAgICAgICAgICAgICAgIC AgICAgICAgICAgICAgICAgICAgICAgICAgICAgICAg ICAgICAgICAgICAgICAgICAgICAgICAgICAgICAgICAgICAgICAgDQogICAgICAgICAgICAgICAgICAg ICAgICAgICAgICAgICAgICAgICAgICAgICAgICAgICAgICAgICAgICAgICAgICAgICAgICAgICAgICAg ICAgICAgICAgICAgICAgICAgICAgDQogICAgICAgIC AgICAgICAgICAgICAgICAgICAgICAgICAgICAgICAgICAgICAgICAgICAgICAgICAgICAgICAgICAgIC AgICAgICAgICAgICAgICAgICAgICAgICAgICAgICAgDQogICAgICAgICAgICAgICAgICAgICAgICAgIC AgICAgICAgICAgICAgICAgICAgICAgICAgICAgICAg ICAgICAgICAgICAgICAgICAgICAgICAgICAgICAgICAgICAgICAgICAgDQogICAgICAgICAgICAgICAg ICAgICAgICAgICAgICAgICAgICAgICAgICAgICAgICAgICAgICAgICAgICAgICAgICAgICAgICAgICAg HFGfRCGsTUFwHFBcBLUzWCIfPQSgQEKrQZd5C8qpTC PdAOMqUY0qQUg0Md0+QAqUGaUhECM3kgNjeD0VAL4ua0UkTQkmUXXvi3HqJZn1VX4HSXHwLUezII0EYF gkgg0FABWlATRdfIFIm4ugWkQsSGW0JNAoGgurEU2HVNXvK6dpsdCiFUAqGQIBQImhPWVSILTrJVSnPo OeQnKsPBQgGZQwRUFVETT5QRYxXlRiMHRjONAgPnDl RNUVYU6UKnQoP7VnsH92ZZeVNa4+OJvorfXzYliXWyB7AGBnu6UkXQt0VE2PNFBgFfrkv3YeXdotKNVK CWntUZ2CVYW6QIX0VOTfGc1JLVBwZ736djMkTN9NQq6RZkJnRO7ipw1RKnhoNAZaNdbNWaj7GJztZT3N mEVtWLaMag1qqgEgodJZe8XsjyJxrPORLE3uKFCQRB abzTVzQYOtUS5MCMT8UEkpSdyoDqJvVQNtQIe8GGNTAPtIViQtJ4Pgg6ScUzO9QUIkLcRiDMgvJUUnVb W2EM88hMghZT0NXFRxQKRxJD14LXE3JDPvIu9ZBe3ZKoWeGF6kym9YBrHfZR4zhu3RHWjKXnJmP3J7yQ TrZ3Mezt94PO8QiTD3uUUoNV9WsV3vEH7Ry6GfFYFl UoRcFIGwWKVbFBYqSVEoQiUkQE3KPJCsXpKdzOSxOVPuZOY3SWHlXnZ1OIIzLR3PLENbCZB6WU8JKF0J SlgrO0CBXTovmIhqPgNRXJH/RIOUBLLOWEfpVYNzK28TS3LTGOiUSduqUUyFSqmvIg7pZEg+Tl0QFC8w c5AbQBtmCAPeQZ0ufo6BDLeFTjVdR9D3vOLmV5O6BI jmOf9OWCXnYWMkEdYqPMBFZLtoVQ2LWW2yslI3TB2ExKNeQQMsXUUjzOWuQUt4C37ylAYbESyjOU4MGT A+Immanuel+St1IGWUeUZHjIUKiPwWpHYNEPmGrF0AmS8RNr6XdP3WlPN13zQwnwjVqWNlmAF9ZSC2yZDVsYN ROSC1JbLVgkA5gyoVeEzPqAXMXIsUyG85jjXBpOWWi VWY8TFKgTh1GLQGkD5KozdRhxLbnwzLcVXVjVWYJYT2EOVzypuSobFPdwLliUM93iDyqNV2RNr3TDbQd OK9axd0QfEWyNm9TEPV6SK0APTBuUEDyOEScDHN7LTCsGhDuZTbgWFMuFCDfSYQ0JXFvHBUoSX3KNiKl STLcNUW4AVHqMFHfYMQlbc3PSWEoEOB0DCIyOGJfVA GcDBHpLPaaSSYzJWXzSSX4LOMoEDAsFF7BAtZxISPiZUN2GnthXUEtBRVizj4VGDEnQNZ1ZaExKQCrFI FjVHViOKvvLJTwINY7NjX8EDIsSBGaUY7UYlMnVCLlNIztIwLoXPYwHOTcff2VKQOmWIBxKKJ3FrVoLC DdZEMtGClwNYUjQROnAgU0TTHoBHQhQU7ORaVsBYKk SVB2UwhgUZWcYWTmll8HPEBuDOItCVcnUxInOLKiEVQeXXjcZRWtMKE6UOYhRCZiDWBwSY0EUhGiGWMy ESy4EdQqFTQtBKVgkk5EXYFcGYEfAIIxOPGlBQAcDFSvHJgrMZMfAARcGYD5GMBsLGDeZN2GFuQdZBZg TdY5YoJrBWQvEMKehl9DPMLyPPOlPXMfNKAkDAUlCG JlMAddZFUkKKN9BAN1QRYuQJKsAO8RKqTiJXOaLgpcBBQpHYSyELUhwa1UYTQtYEHoOpYuWcQyGWYiEH FnEVeoRKGjZUM5ICyuFCAaZLIbAO7CBrZlLPVqSse3PwxcXTZaZCNgtf3APJAfLGBeVAz9MzIcURNuCX SiRSrqWAKxMLN0XOKmLQBrFHExUH1BFeRoGUUrOwEv CpMoPALeEQRuab1AEQUvCAFpMSLhDHDfTHQpSPJiERaaXYXtCFSmSuXvBBQkSDXsHS4FImFcDZYmSAL9 RyGqJFAzOLHtwc3LACEqCSD9XnS4AAZmENEeYWTjEIbnBYToTKPxXZI3RELpUQHlQH7OKvJbIPXfRQX9 HkMnAMUkZYGkmf9PVGLkBFV1MtQeZRCoTCCjMJKkAY ebUYVnHRDgJqYpBOWtYBQtMO1LOfMkGYYqZSJ8GWBsUIVuLJZtkt2QJNInKHJ3CCG6LDUdJEToJQIzDV tuHKUaYZT1Ggd5EZLmYTAsMI0VPgBmSHNyXCS4DVLgOVWnREKdbp2WNRTqWWZ7KzJ2PYKfQMFpOYUxHU x5xkAscPPeHMd8OU9EG1BlyoUtGWJHFp9Ww183VEK6 HAUoDr2ON8xdFf9dSVHcCTPWPl6EZBq5VEB5VnXrMJMrVBV6YFqkHUp5L3PuWTp4BmT8BhHvHKY+IDww ENHzVuLdJlS2QwS5IVYiPAewAvV6AsEsRuNxLiIeUl4gGEWHZq0+PCoudPSuwUlyZJCKHwI5CUJ5NPrt IKZUVc2N ID Date Data Source [id number] 12/14/2020 12:57:39 PM EDT [facility] XR ABDOMEN AP SUPINE AND AP ERECT [id number] INAL RESULTInterpreted by:SANTOSH PereiraNDICATION: abdominal pain with inability to tolerate PO intakeTECHNIQUE: AP and supine views of the abdomen were obtainedCOMPARISON: No prior studies for comparisonFINDINGS: LINES AND TUBES: NoneABDOMEN: Nonobstructive bowel gas pattern. Moderate amount stool noted throughout the colon.Phleboliths noted in the pelvis. No evidence of pneumoperitoneum detected.VISIBLE CHEST: Visualized lung bases are clear.BONES: Multiple sclerotic lesions noted throughout the axial and appendicular skeleton consistent with patient's history of prostate cancer.IMPRESSION:Nonobstructive bowel gas pattern. Moderate amount stool noted in the colon.Multiple sclerotic lesions detected throughout the pelvis and spine. This is consistent with patient's history of prostate cancer.This document has been electronically signed by Hema Little DO on 12/14/2020 12:55 PM Name Value Range Interpretation Code Description Data Belinda rce(s) Supporting Document(s) ID Date Data Source [id number] 12/14/2020 11:06:21 AM EDT [facility] Name Value Range Interpretation Code Description Data Belinda rce(s) Supporting Document(s) Leukocytes [#/volume] in Blood by Automated count 10.0 10*3/uL 4-10 [facility] Erythrocytes [#/volume] in Blood by Automated count 3.52 10*6/uL 4.6- 6.[address] [facility] Hemoglobin [Mass/volume] in Blood 11.2 g/dL 13.5-[address] [facility] Hematocrit [Volume Fraction] of Blood by Automated count 32.8 % 4 1-[address] [facility] Erythrocyte mean corpuscular volume [Entitic volume] by Auto mated count 93.1 fL 80-96 [facility] Erythrocyte mean corpuscular hemoglobin [Entitic mass] by Automated count 31.7 pg 27-33 [facility] Erythrocyte mean corpuscular hemoglobin concentration [Mass/volume] by Automated count 34.0 g/dL 32.0-[facility] width [Ratio] by Automated count 14.4 % 11.5-14.5 [facility] Platelets [#/volume] in Blood by Automated count 506 10*3/uL 150-[address] [facility] Differential cell count method - Blood [facility] Neutrophils/100 leukocytes in Blood by Automated count 70 % [facility] Lymphocytes/100 leukocytes in Blood by Automated count 18 % [facility] Monocytes/100 leukocytes in Blood by Automated count 11 % [facility] Eosinophils/100 leukocytes in Blood by Automated count 0 % [facility] Basophils/100 leukocytes in Blood by Automated count 1 % [facility] Neutrophils [#/volume] in Blood by Automated count 7.02 10*3/uL 1.8-[address] [facility] Lymphocytes [#/volume] in Blood by Automated count 1.79 10*3/uL 1.2-[address] [facility] Monocytes [#/volume] in Blood by Automated count 1.07 10*3/uL 0-0.8 [facility] Eosinophils [#/volume] in Blood by Automated count 0.00 10*3/uL 0-0.5 [facility] Basophils [#/volume] in Blood by Automated count 0.08 10*3/uL 0-0.2 [facility] Nucleated erythrocytes/100 leukocytes [Ratio] in Blood by Automated count 0 /100{WBCs} 0-0 [facility] ID Date Data Source [id number] 12/14/2020 12:03:[address] [facility] Name Value Range Interpretation Code Description Data Belinda rce(s) Supporting Document(s) Albumin [Mass/volume] in Serum or Plasma by Bromocresol green (BCG) dye binding method 3.7 g/dL 3.5-5.2 [facility] Bilirubin.total [Mass/volume] in Serum or Plasma 0.3 mg/dL <1.2 [facility] Calcium [Mass/volume] in Serum or Plasma 10.7 mg/dL 8.6-10.[address] [facility] Chloride [Moles/volume] in Serum or Plasma 96 mmol/L 98-[address] [facility] Creatinine [Mass/volume] in Serum or Plasma 1.13 mg/dL 0.70-1.20 [facility] Glucose [Mass/volume] in Serum or Plasma 113 mg/dL 70-140 [facility] Alkaline phosphatase [Enzymatic activity/volume] in Serum or Plasma 114 U/L 40-129 [facility] Potassium [Moles/volume] in Serum or Plasma 3.3 mmol/L 3.4-5.[address] [facility] Protein [Mass/volume] in Serum or Plasma 7.1 g/dL 6.4-8.3 [facility] Sodium [Moles/volume] in Serum or Plasma 136 mmol/L 136-145 [facility] Aspartate aminotransferase [Enzymatic activity/volume] in Serum or Plasma 38 U/L <40 [facility] Urea nitrogen [Mass/volume] in Serum or Plasma 13 mg/dL 8-23 [facility] Osmolality of Serum or Plasma by calculation 283 mosm/kg 275-300 [facility] Creatinine/Urea nitrogen [Mass Ratio] in Serum or Plasma 12 [facility] Bicarbonate [Moles/volume] in Serum 22 mmol/L 22-29 [facility] Alanine aminotransferase [Enzymatic activity/volume] in Seru m or Plasma 14 U/L <41 [facility] Anion gap 3 in Serum or Plasma 18 mmol/L 8-[address] [facility] Glomerular filtration rate/1.73 sq M pre dicted among non-blacks [Volume Rate/Area] in Serum or Plasma by Creatinine-based formula (MDRD) 69 mL/min/1.73m2 >60 [facility] Glomerular filtration rate/1.73 sq M pre dicted among blacks [Volume Rate/Area] in Serum or Plasma by Creatinine-based formula (MDRD) 80 mL/min/1.73m2 >60 [facility] ID Date Data Source [id number] 12/14/2020 12:10:23 PM [facility] Name Value Range Interpretation Code Description Data Belinda rce(s) Supporting Document(s) Prostate Specific Ag Free/Prostate specific Ag.total i n Serum or Plasma 4.3 ng/mL <4.[address] [facility] Serum levels of PSA should not be interp reted as absolute evidence of the presence or absence of Cancer. Results obtained with different methods cannot be used interchangeably. This method is manufactured by [employer] and is an electrochemiluminesence immunoassay. ID Date Data Source [id number] 12/03/2020 07:40:58 AM [facility] Name Value Range Interpretation Code Description Data Belinda rce(s) Supporting Document(s) Progress Note [facility] IHJHDu6hAbMACtUj91/GNSvnHZHic9FwGTytCAn8RUalJMXiJ5IaSAT7uI1zLMV7KTdMKqBrUoVyVQK5 lbm [file] [employer]++vVuOWza0NAVn6MLZSbqFvL4yYZscVPqkTZk/f4 [file] 31mHE/o/M+Maria Fernanda+A/7soimmdt/rN6bxOkVhsyNoG+p2i4Eq7EGThyhUA1EpghakehtDDjIc8jP/3KlP5z 0h/CYRnvf+cKkZnM9myd/Lw43K5poj2BU6GG5Y1iPJ aCgVTP00ZU9w+yNlw9AnnjRcI/naXy7Lg1lKvkyBJIuKt1Mjn0w0TNltWM6cBLcxAI1/KmQEwHFF+iCN QAAnCsxhLW0SuhyB9UaTr87U6mqSqpktF+/HeS/73fkz82t+EmHTl5ZtVbyRYwBpb18up3w2WQfVCXsC Yqepg0l9/h1DpZ1KldiW0/5d3hUXqADAOUrieQtRcy 65B/pHufeUmE9s2Na+nAWTJ9RV54TIvw+Y0jNA2ofXYfN8IoAPQ+E+G+J8IBrfsaF3ua1GGRjBE54Urr 80K/1V9hV7ep/wmJX+wAZgCdz/CaA/P/IK1Z1U3eS+u6c3AcmQ6vD2b+E/D3gS/k/mUpgSmca89FGUnc WsfPS5APlULa9gb/6j2cMZI4+RFvsCe2GQ5WpP3UD9 I8evRL45qCFmH7Ga3g+HyFeUXO4r6TVk12+f54YdT26bZ+M4FO+ikl36izkGzOYWbqMgcyd/C/3RpmL8 DkPN4EwZ9XRCoXl/Si8P1RpVg2HoxUwFF6LB+aJcdr/hrs7LlqlPwLQAep7OiF/xEjGInC8u+DjOhW7k M7EPMrUbWKVuepzae6Bb838B3I1W3SX0d3B/dPo0R7 GzLTDK5Ll0n/3ft4/8F/rU/aNDlfIaji3WrXElka8Vn09njg/+l/vyw/IV7h69k+p3+siZkeOwF2FOVE nk0rHZo/BRENDA/iPpOd+X3++3vG9/Rn1zeAVg3KN47hF5JaTfEXAkFz5csUlX/GsZy1wONI+U673H1tZWb [file] IURFISuiLK2QCB7sgkO0DX4GfMSgVYYxQFMrmPKfUAf5X47msEBrHOfnPU4MHPO+Immanuel+Eb4WSOVcBWUk IYCoNgTmIQIEGeLiR4CdG7SLd0LdC9JgCF94lIrnraFgFVdbMU9VHW1tRQNeJQEZXJ5KsOImsC7fdgIy MiWxUJALBzEpP90tbYSdDMUgNIIjYBHbMw8VRMKdC0 WzdnBptDrrnyKxNNVaKAZLYR5MAIuhsmSguRIfnMbhAM04zCpvGC6WVp1CTnXrDM8qmj4MeZSnTs9WCL XmCp9SXBOgFTXoAUCtUWM7OXKwMkEjDUcrTXAnIBCgNME8XQCkQKAqPV9XOtOfDKVuSVpfRXLvLIWuFA Mktf7ADYGfDVI2UTi3INUyFYQrDXKmRImxHAVfUSFv JGF9DOFdTOYsBM9PKpByANJcDNQ9DLqjAEJrAJGcor1OMWYePZBzPWS3YJGjABSpLUNlBJsvZDIgYBC2 JpKcLHZqVJWzQQ3MSsEgJHTdHJw8XUtzWXBdDRFbqd7SVTDnGVZzEcAzDwYdRNCsYOFyNPboMOZnZCRd LDChXSXtVOOcMV7DVxYdQMMbSQIuSYroPBRrTSIqui 8RASDjOYKrVPZaIXNrTWCuVPRcYHduPEVxBRR8SVM2MRBtLCUkXE6WEfIeFUCyMGpsDMpvFKUsMFJbgu 5IVZUjJVF3AEI1UBIyTPFuCLWzIWaqSXKzQXZ8MGt6IWIpVMLyZS8OIsIkEOUoLLhoKJEeDMHhDSTsgf 5TVXRwIRKhPPA0FPAyGZFbAXBdUPjfPYOuJQH0Gcnq GFHcYWIxCZ6KTjWvWCCrFHs9BLYcLNDqMXQega2MINYtRVWcXBPjKeLhHHTwRLPzECeyGTWqXJNuNbG8 MSZtYNOvDH4IQsDiOUMnFdC9POAtLZMpGXRqjs7TBRLeDFX2ObreGwDrIJQgPQYbVGmrHHEkAUP4CBN8 WSJrWDAfVN3TGxPcSTJzMJU2LlovGNErHQXwbk3HHQ UuDQB6HQScAuFzLEWcATKrXRfaUOGlFXZ3DqupKHZmWFSsMU2PZfVbVMTfCEW5EuHhKULpTMFabu3DKU OcWKY2FvupYXEpHSEeADCrKVhiYYBsNMQ5LTnhZBLsWPBnEU4EWaHvJTSyQWs1OBroTULqPKRatd1YEY EnSBO5PRb4TrDdTBYtERBtRJvnAOBwWHK2VFE9ZMLv KZCkUQ5YVmEoLAZqRGs8HGMeSNByCEHgxr5TdXBtgVwqce3RNUlSVh0QkKsrEOQ1HUvvUn6noVVoUHFp BKWLQy6KmuWnZZArLZBORYxtAVHaXZGhRiecMVZvSTqjPUL7FtJbQFMmDnPuVsT8RAUrIPJ9GwI9AZM4 QXE9CJP2ZVY5CbJfUOG7NSQaXuPvMrs7XvF5LmD+IF 0gDQo+Kx4Vu0PwuiJ0zsLpDEn2ZUm4FK8GREQRE9MCOr== ID Date Data Source [id number] 12/01/2020 04:11:47 PM EDT [facility] MR LUMBAR SPINE WITH AND WITHOUT CONTRAS T [id number] RESULTInterpreted by:Savita Silva MD11/22/2020 4:48 PM MR LUMBAR SPINE WITH AND WITHOUT CONTRAST [id number] CLINICAL INFORMATION: rule out new fracture in setting of metastatic prostate cancer ADDITIONAL CLINICAL INFORMATION: None.TECHNIQUE: Multiplanar multi-sequential imaging of the lumbosacral spine was performed before and following intravenous contrast.The amount of contrast material used was recorded in the [facility] and this information can be retrieved from there.COMPARISON: None.FINDINGS: For the purpose of this report, the lowest co mplete disk space is L5/S1. Heterogenous appearance of the bones of the lumbar spine as well as sacral vertebral is noted with multiple areas of enhancement seen in the vertebrae as well as posterior elements.Anterior and central wedging of L1 vertebra is noted with loss of height. Mild central wedging of L5 is also noted.Lumbar curvature is exaggerated.Trace retrolisthesis of L1 over L2 and L4 over L5. Anterolisthesis of L5 over S1 measuring approximately 7 mm noted.Extensive degenerative changes are noted in the lumbar spine with osteophyte formation, disc desiccation.Intervertebral disc height is reduced at L1-L2 level.The conus medullaris is normal in morphology and terminates at T12- L1.INDIVIDUAL LEVELS:T12-L1: Disc bulge is seen flattening the thecal sac without any high-grade spinal canal stenosis.L1-L2: Left paracentral disc bulge is seen indenting the thecal sac and causing mild to moderate spinal canal stenosis and bilateral ligamentum flavum hypertrophy and facet arthropathy seen. Moderate to severe bilateral foraminal narrowing is seen.L2-L3: Right paracentral disc bulge is seen flattening the thecal sac without any high-grade spinal canal stenosis. Bilateral ligamentum flavum and facet arthropathy seen. Mild right and left neural foraminal narrowing is seen.L3-L4 and L4-L5: Central disc bulge is seen indenting the thecal sac without any high-grade central canal stenosis. Mild right and ebmb-fe-adumkwoo left neural foraminal narrowing is seen.L5-S1: Pseudo disc bulge is seen with anterolisthesis of L5 over S1. Severe bilateral foraminal narrowing is seen.IMPRESSION: 1. Heterogenous appearance of bones of the lumbar spine as well as sacrum with multiple areas of enhancement concerning for metastatic disease.2. Anterior and central wedging of L1 vertebra with loss of height as well as mild central wedging of L5.3. Extensive multilevel degenerative changes of the lumbar spine as described above with multilevel spinal canal as well as neural foraminal narrowing.4. Trace retrolisthesis of L1 over L2 and L4 over L5. Anterolisthesis of L5 over S1 measuring approximately 9 mm. This document has been electronically signed by Savita Silva MD on 12/01/2020 4:09 PM Name Value Range Interpretation Code Description Data Belinda rce(s) Supporting Document(s) ID Date Data Source [id number] 12/01/2020 04:11:27 PM EDT [facility] MR THORACIC SPINE WITH AND WITHOUT CONTR AST [id number] RESULTInterpreted by:Savita Silva MDEXAMINATION: MR THORACIC SPINE WITH AND WITHOUT CONTRAST [id number] INDICATION: rule out new fracture in setting of metastatic prostate cancer.Technique: Axial and sagittal T1 and T2-weighted, coronal T2- weighted, and sagittal STIR images of the thoracic spine were obtained without intravenous contrast administration. Axial and sagittal T1-weighted images were then acquired following intravenous administration of contrast.COMPARISON: None at our institution at the time of this dictation.FINDINGS: Heterogenous appearance of the bones of the thoracic spine is noted with multiple areas of enhancement seen in thoracic vertebra, for example most prominently in C7, T1, T3 and T5, T8, T9, T10,T11 as well as posterior element of the T12. Soft tissue component is noted posteriorly at T10 level extending into the spinal canal as well as right aspect of neural foramina causing severe spinal canal stenosis with suggestion of impingement of right exiting nerve root. Multilevel degenerative changes are noted in the thoracic spine with decreased disc height, endplate changes osteophytes and disc desiccation.Trace anterolisthesis of T2 over T3 is seen.Small disc bulges are noted at T2-T3, T3-T4, T4-T5, T5-T6, T7- T8, T8-T9 and T12-L1 indenting the thecal sac and causing mild spinal canal stenosis.There is no significant curvature shown on the coronal images. There is no lateral listhesis. Vertebral body and disc heights are normal. There is no spondylolisthesis.IMPRESSION:1. Heterogenous appearance of bones of the thoracic spine with multiple areas of enhancement throughout the lower cervical as well as thoracic spine as described above with soft tissue component noted posteriorly at T10 level extending into the spinal canal and right neural foramina and causing severe spinal canal stenosis as well as impingement of right exiting nerve.2. Multilevel degenerative changes in the thoracic spine.This document has been electronically signed by Savita Silva MD on 12/01/2020 4:09 PM Name Value Range Interpretation Code Description Data Belinda rce(s) Supporting Document(s) ID Date Data Source [id number] 11/24/2020 02:35:09 PM EDT [facility] Name Value Range Interpretation Code Description Data Belinda rce(s) Supporting Document(s) Progress Note [facility] HTHBKx2aQuRKNnMy36/QMLnoUHGfh3DdQAzlVGj0YKiiDYUpG5YjEHV6eX6lBRS9LHfTNbVcIgCaCuY9 lbm [file] [facility]+ZosDpwehxZizwVbfSM3xQfxSSrU7FKOHz0E/XrqN0Nzxx4hNBl8C5BiqNeb2LQAJ/0uCCNlW6C [file] Rg0K ID Date Data Source [id number] 11/23/2020 09:31:18 AM EDT [facility] Name Value Range Interpretation Code Description Data Belinda rce(s) Supporting Document(s) Leukocytes [#/volume] in Blood by Automated count 7.1 10*3/uL 4-10 [facility] Erythrocytes [#/volume] in Blood by Automated count 3.71 10*6/uL 4.6- 6.[address] [facility] Hemoglobin [Mass/volume] in Blood 12.0 g/dL 13.5-[address] [facility] Hematocrit [Volume Fraction] of Blood by Automated count 35.3 % 4 1-[address] [facility] Erythrocyte mean corpuscular volume [Entitic volume] by Auto mated count 95.1 fL 80-96 [facility] Erythrocyte mean corpuscular hemoglobin [Entitic mass] by Automated count 32.3 pg 27-33 [facility] Erythrocyte mean corpuscular hemoglobin concentration [Mass/volume] by Automated count 33.9 g/dL 32.0-36.0 [facility] distribution width [Ratio] by Automated count 14.5 % 11.5-14.5 [facility] Platelets [#/volume] in Blood by Automated count 365 10*3/uL 150-400 [facility] Differential cell count method - Blood [facility] Neutrophils/100 leukocytes in Blood by Automated count 66 % [facility] Lymphocytes/100 leukocytes in Blood by Automated count 24 % [facility] Monocytes/100 leukocytes in Blood by Automated count 8 % [facility] Eosinophils/100 leukocytes in Blood by Automated count 1 % [facility] Basophils/100 leukocytes in Blood by Automated count 1 % [facility] Neutrophils [#/volume] in Blood by Automated count 4.65 10*3/uL 1.8-[address] [facility] Lymphocytes [#/volume] in Blood by Automated count 1.73 10*3/uL 1.2-[address] [facility] Monocytes [#/volume] in Blood by Automated count 0.58 10*3/uL 0-0.8 [facility] Eosinophils [#/volume] in Blood by Automated count 0.09 10*3/uL 0-0.5 [facility] Basophils [#/volume] in Blood by Automated count 0.08 10*3/uL 0-0.2 [facility] Nucleated erythrocytes/100 leukocytes [Ratio] in Blood by Automated count 0 /100{WBCs} 0-0 [facility] ID Date Data Source [id number] 11/23/2020 09:58:[address] [facility] Name Value Range Interpretation Code Description Data Belinda rce(s) Supporting Document(s) Albumin [Mass/volume] in Serum or Plasma by Bromocresol green (BCG) dye binding method 3.7 g/dL 3.5-5.2 [facility] Bilirubin.total [Mass/volume] in Serum or Plasma 0.4 mg/dL <1.2 [facility] Calcium [Mass/volume] in Serum or Plasma 9.4 mg/dL 8.6-10.0 [facility] Chloride [Moles/volume] in Serum or Plasma 100 mmol/L 98-107 [facility] Creatinine [Mass/volume] in Serum or Plasma 0.72 mg/dL 0.70-1.20 [facility] Glucose [Mass/volume] in Serum or Plasma 117 mg/dL 70-140 [facility] Alkaline phosphatase [Enzymatic activity/volume] in Serum or Plasma 103 U/L 40-129 [facility] Potassium [Moles/volume] in Serum or Plasma 3.9 mmol/L 3.4-5.1 [facility] Protein [Mass/volume] in Serum or Plasma 6.8 g/dL 6.4-8.3 [facility] Sodium [Moles/volume] in Serum or Plasma 135 mmol/L 136-[address] [facility] Aspartate aminotransferase [Enzymatic activity/volume] in Serum or Plasma 31 U/L <40 [facility] Urea nitrogen [Mass/volume] in Serum or Plasma 12 mg/dL 8-23 [facility] Osmolality of Serum or Plasma by calculation 280 mosm/kg 275-300 [facility] Creatinine/Urea nitrogen [Mass Ratio] in Serum or Plasma 16 [facility] Bicarbonate [Moles/volume] in Serum 21 mmol/L 22-[address] [facility] Alanine aminotransferase [Enzymatic activity/volume] in Seru m or Plasma 19 U/L <41 [facility] Anion gap 3 in Serum or Plasma 13 mmol/L 8-15 [facility] Glomerular filtration rate/1.73 sq M pre dicted among non-blacks [Volume Rate/Area] in Serum or Plasma by Creatinine-based formula (MDRD) >[address] [facility] Glomerular filtration rate/1.73 sq M pre dicted among blacks [Volume Rate/Area] in Serum or Plasma by Creatinine-based formula (MDRD) >60 [facility] ID Date Data Source [id number] 11/23/2020 10:38:32 AM EDT [facility] Name Value Range Interpretation Code Description Data Belinda rce(s) Supporting Document(s) Prostate Specific Ag Free/Prostate specific Ag.total i n Serum or Plasma 2.8 ng/mL <4.0 [facility] Serum levels of PSA should not be interp reted as absolute evidence of the presence or absence of Cancer. Results obtained with different methods cannot be used interchangeably. This method is manufactured by [employer] and is an electrochemiluminesence immunoassay. ID Date Data Source [id number] 11/19/2020 11:15:56 AM EDT [facility] Name Value Range Interpretation Code Description Data Belinda rce(s) Supporting Document(s) Progress Note [facility] BXAEYl1sJgNYEqIn67/CGLodVRHgf3MkZRbiZZx3SYwoPLQuQ1NeHSV8yL1bDSJ4BKgZCsMsPiGrIzDm lbm [file] ICAgICAgICAgICAgICAgICAgICAgICAgICAgICAgICAgICAgICAgICAgICAgICAgICAgICAgICAgICAg ICAgICAgICAgICANCiAgICAgICAgICAgICAgICAgICAgICAgICAgICAgICAgICAgICAgICAgICAgICAg ICAgICAgICAgICAgICAgICAgICAgICAgICAgICAgIC AgICAgICAgICAgICAgICAgICAgICANCiAgICAgICAgICAgICAgICAgICAgICAgICAgICAgICAgICAgIC AgICAgICAgICAgICAgICAgICAgICAgICAgICAgICAgICAgICAgICAgICAgICAgICAgICAgICAgICAgIC AgICANCiAgICAgICAgICAgICAgICAgICAgICAgICAg ICAgICAgICAgICAgICAgICAgICAgICAgICAgICAgICAgICAgICAgICAgICAgICAgICAgICAgICAgICAg ICAgICAgICAgICAgICANCiAgICAgICAgICAgICAgICAgICAgICAgICAgICAgICAgICAgICAgICAgICAg ICAgICAgICAgICAgICAgICAgICAgICAgICAgICAgIC AgICAgICAgICAgICAgICAgICAgICAgICANCiAgICAgICAgICAgICAgICAgICAgICAgICAgICAgICAgIC AgICAgICAgICAgICAgICAgICAgICAgICAgICAgICAgICAgICAgICAgICAgICAgICAgICAgICAgICAgIC AgICAgICANCiAgICAgICAgICAgICAgICAgICAgICAg ICAgICAgICAgICAgICAgICAgICAgICAgICAgICAgICAgICAgICAgICAgICAgICAgICAgICAgICAgICAg ICAgICAgICAgICAgICAgICANCiAgICAgICAgICAgICAgICAgICAgICAgICAgICAgICAgICAgICAgICAg ICAgICAgICAgICAgICAgICAgICAgICAgICAgICAgIC AgICAgICAgICAgICAgICAgICAgICAgICAgICANCiAgICAgICAgICAgICAgICAgICAgICAgICAgICAgIC AgICAgICAgICAgICAgICAgICAgICAgICAgICAgICAgICAgICAgICAgICAgICAgICAgICAgICAgICAgIC AgICAgICAgICANCiAgICAgICAgICAgICAgICAgICAg ICAgICAgICAgICAgICAgICAgICAgICAgICAgICAgICAgICAgICAgICAgICAgICAgICAgICAgICAgICAg ICAgICAgICAgICAgICAgICAgICANCjw/iQQrL2owtJRzrqW3Q5iaJx6GRh9HUL5oe8RcLKWlQVycptEj PahVZzZmDYLbGvvIQjx1IEzyGB6GaLEgO5KaD9BoPH jcMI4AYHInGYPcqNNwSPNbLIDpWhF8XBNoIYfeWJ2ObPLtLMbcLQQnFSNjGPVyVHBtZUMvHJJSYSWlJL HlKkDkJMOpAOFsYMEkVTDEXBG1XANcFdPaTFAfRPToXmZvBOXBDU2UJwJqA4TsdE50TCjTTp5+DQplbm BdCumAUxH4GAApt9IdOZg1WX4MUAJfXecrq8HyPGop MSLJLEgnAF0KHSC5EXD7RKOaHn2RVAStE478ccHgTJ1LUd7SGjBgAV9eqb5ERTiiLHCuOqkVAdz7MUje BG6GtOBcKGnUfe7rikMopnMLf4DfbpKdtCKXYP7bXzQprgIvtM5hIZ9RVRD0QNjjBiOpXzWjSEOcBlj7 SRDWABaYFfQwF0Hfz9EfYpZ7XTBhIhRgMYwuFCHfAy O4XW86gNhmWQ0HJHWqGDIiQM21TWF0RRGgPi6XEb7ZBwVuQP0gmq5PYxLiVY3cfk4ZRRtBXiHzX0C9tZ SnI8Zdfu01PP3KlIN3hGDzTA9VxG6ePZ6Or2BnWWCrNfAwSXXkTDKxFWPpFPZiHtNeIX0EXVRdEzBzqV BdEBViJXY2VDUxTmY3WOIlIT1LYVAtSJU6CU8HMZ1R BfebO7MISJrorEavQwJGRKP/MLNCWJYFOMppLCMdW06CQ6KZXIeNHtsnEEgTXxvgYj4cVEs+Yk6HTX4w j1MbNZh4TQVjFE6boz3EFVgWBfJiH1X0uKKrP7B9MBvoEe8VDPOwHBKjVAHvPDIUGFrmOQ5CNV1mhvC3 EB8RdAFdOZOpSMNrfUFwCIz4F12rpCJtXDpcXZ7DLJ A+Immanuel+Dx9JUEXdHNXdAXZvOsTvVGVPJbFhU7EvI6BCv8OmS1BvBD59bLlhnrMjZYhaSV3XAD6uHSYmNF BGXI8JgTLcjP7amuZ2YnCrELLQVxGfX93ucASeIEMqLRR6TTRkKy7YWXFbK5DfsuFghVmkfdMcJBSzIA PGBF2QDRtodyNnzUJtnVqjCK87bTjdIQ9MZj7QUlHm WR7usy0XcSIuHg6FKUC4UB8TPMSuTUCoYVSfDPE8TMUtDtIsBGuiUZUfCCUyVQE6VENlCBTeJV5VTePs RJDzANU8FxLzLVDjDPOfbq4VACVrRUE5JBD9NbZiHMZxLSApHNdgQIByKDBiBWW5GICnYTClVP6XBwRz AJNaSJHdFSTcQJStQSIoff4AJUSqHJT1ELB0HYFmSM DgXZCxAYagSOVbAUE4ZwT0TCZmYZRfWY9PNvGiZIBeUIioNxhuMNTwPARnyl6TBLTgQQDgIHXqPbOjGG TcWHKkHJmxMFEmQHYiQaQyRSPhIVDvHY0VMvJfHIGoBYM6RbfoSFEmDJLlvl9MJEFvSFAhDMB3FUWdFQ OeVNDhWKuiKLAnJWT3Gdl2VHMkKAQdTT6QBiYoHUPn HKz9FqiaHEVcXCYcjf4JASAuGHTbJPNrGCAfGIQcXKQzFXxvTENjFVRtWfy4NNElNMPiQB2FRoEmAAYt LsV5LRZoWWYfSKFkes7HMHDzBYWeUlFqYwTfZLByUBOcREyoEXCwGJQ7GqA5FPWrBVWhPA6UCpDsASFz IqW5SXYzMKNmLRBqay7HRWCoNZZaTUX9XkAwZBYeJR RyBLmgJLChCCWaMKO4PIFqYSNyFV6EDcPsQOCtEgVuRjHxXANyNMTzsm1TGQDsMTMyWcV3CNYsJUSrQC OlBEmfEUWaEPToJGv3NUUwJUVuPA6CHcCuHGCoIeR5WoFiLLHvJFKhbf1CKYAlLTQiEMMqFDUzYJNoNT PjGFtoNMZbZQZ7FYHgDQLtBXXwAH5UGlYsAABbRwTk IsZdVXLvPDJnel4IMZGiJYX6HOLkTaSmJZLqUWPvINxzAERfFKNdQTV0DXYoNJDeUY7DPjVvZMReLyYw MMvuJBTnMUQvze4BXRAuRGU0PsxbZhLtHFHmLSDqMHklRCXiQOWyIXRdZZIgMTBbYE4LIqOxQUBpErDw AJBdKHNzKCHhki5BPZSzVCJ2KLD3FaDvYITdKPOuRN gjZLJzUUC1WrH9MGQbXPZmKA8NDrPbXOBcKlPvINDjSVDsLWWehs5DMUDoALO4VQO5XLWbSUGeRSUgCL ulPWHdSZW3BxU8APAjADJiNF8YWlZjAPHpFUDwTkTtHOJfGUWcpk4IMJZzLKZ0NRLrCiQnQXBcKAKkBJ oeBRVhNXd1EMU1UIBvWIKnUZ9RUiGvMQOrTLRzCFkq EFXjMUWjul9MKWIcFRB7JrKwRQFfXNNkZDFoASenUENmUTw9WJY2ZEGyZPLzDA2QLfRyUTMwUHa1JGCd WBBvQNQekx5OBHTwSPK8ZXQjMOYgGNBbCDUcAAkwNCTcDHi0XKC0XMThCCQhVS0OZdGqKQnsRQBWEmq9 EHapJ5t0POY1YS2ZA2Rig6OoXItaXAXDJGnfUE6gwo ZkRLUrLd8EH8yRKumkQ7K8YZO3UIWfKMNfPHRpMRV9BOMdVHXhXRJdI1OjGN4bKXMbNGhdAkR9MgJ3QL S8NeG2WENkJCBxOXS7LHUtMdT6McBnML4ZLc3DJbG8KDX7iAAsZz9JVVysQQgOLoSfYL5NVCd= ID Date Data Source [id number] 11/18/2020 12:02:06 PM EDT [facility] DEXA HIP AND OR SPINE [id number] RESULTI nterpreted by:Mary Wetzel MDHISTORY: 60-year-old male here for evaluation of bone mineral density.TECHNIQUE/findings: Evaluation of the lumbar spine in the frontal projection at L1-L4 inclusively reveals a total T score of 2.3. Note is made that the L1 vertebral body appears sclerotic which may represent a compression deformity. Evaluation the patient's left hip reveals a total T score of 0.7 with individual T score at the femoral neck of -0.9.IMPRESSION: Bone density measurements within the left hip are within normal limits. T score within the lumbar spine is within normal limits, however, L1 vertebral body appears sclerotic possibly representing compression deformity. Consider correlation with lumbar spine x-ray.This document has been electronically signed by Mary Wetzel MD on 11/18/2020 11:59 AM Name Value Range Interpretation Code Description Data Belinda rce(s) Supporting Document(s) ID Date Data Source [id number] 11/16/2020 03:30:41 PM EDT [facility] 2.9Serum levels of PSA should not be int erpreted as absolute evidence of the presence or absence of Cancer. Results obtained with different methods cannot be used interchangeably. This method is manufactured by [employer] and is an electrochemiluminesence immunoassay. Name Value Range Interpretation Code Description Data Belinda rce(s) Supporting Document(s) Leukocytes [#/volume] in Blood by Automated count 7.8 10*3/uL 4-10 [facility] Erythrocytes [#/volume] in Blood by Automated count 3.86 10*6/uL 4.6- 6.[address] [facility] Hemoglobin [Mass/volume] in Blood 12.4 g/dL 13.5-[address] [facility] Hematocrit [Volume Fraction] of Blood by Automated count 37.0 % 4 1-[address] [facility] Erythrocyte mean corpuscular volume [Entitic volume] by Auto mated count 95.7 fL 80-96 [facility] Erythrocyte mean corpuscular hemoglobin [Entitic mass] by Automated count 32.2 pg 27-33 [facility] Erythrocyte mean corpuscular hemoglobin concentration [Mass/volume] by Automated count 33.6 g/dL 32.0-[facility] width [Ratio] by Automated count 14.1 % 11.5-14.5 [facility] Platelets [#/volume] in Blood by Automated count 345 10*3/uL 150-400 [facility] Differential cell count method - Blood [facility] Neutrophils/100 leukocytes in Blood by Automated count 63 % [facility] Lymphocytes/100 leukocytes in Blood by Automated count 27 % [facility] Monocytes/100 leukocytes in Blood by Automated count 8 % [facility] Eosinophils/100 leukocytes in Blood by Automated count 1 % [facility] Basophils/100 leukocytes in Blood by Automated count 1 % [facility] Neutrophils [#/volume] in Blood by Automated count 4.93 10*3/uL 1.8-[address] [facility] Lymphocytes [#/volume] in Blood by Automated count 2.14 10*3/uL 1.2-[address] [facility] Monocytes [#/volume] in Blood by Automated count 0.62 10*3/uL 0-0.8 [facility] Eosinophils [#/volume] in Blood by Automated count 0.08 10*3/uL 0-0.5 [facility] Basophils [#/volume] in Blood by Automated count 0.06 10*3/uL 0-0.2 [facility] Nucleated erythrocytes/100 leukocytes [Ratio] in Blood by Automated count 0 /100{WBCs} 0-0 [facility] ID Date Data Source [id number] 11/16/2020 04:04:18 PM EDT [facility] 2.9Serum levels of PSA should not be int erpreted as absolute evidence of the presence or absence of Cancer. Results obtained with different methods cannot be used interchangeably. This method is manufactured by [employer] and is an electrochemiluminesence immunoassay. Name Value Range Interpretation Code Description Data Belinda rce(s) Supporting Document(s) Albumin [Mass/volume] in Serum or Plasma by Bromocresol green (BCG) dye binding method 4.0 g/dL 3.5-5.2 [facility] Bil[facility].total [Mass/volume] in Serum or Plasma 0.3 mg/dL <1.2 [facility] Calcium [Mass/volume] in Serum or Plasma 9.5 mg/dL 8.6-10.0 [facility] Chloride [Moles/volume] in Serum or Plasma 103 mmol/L 98-107 [facility] Creatinine [Mass/volume] in Serum or Plasma 0.82 mg/dL 0.70-1.20 [facility] Glucose [Mass/volume] in Serum or Plasma 108 mg/dL 70-140 [facility] Alkaline phosphatase [Enzymatic activity/volume] in Serum or Plasma 97 U/L 40-129 [facility] Potassium [Moles/volume] in Serum or Plasma 3.6 mmol/L 3.4-5.1 [facility] Protein [Mass/volume] in Serum or Plasma 6.8 g/dL 6.4-8.3 [facility] Sodium [Moles/volume] in Serum or Plasma 141 mmol/L 136-145 [facility] Aspartate aminotransferase [Enzymatic activity/volume] in Serum or Plasma 25 U/L <40 [facility] Urea nitrogen [Mass/volume] in Serum or Plasma 19 mg/dL 8-23 [facility] Osmolality of Serum or Plasma by calculation 294 mosm/kg 275-300 [facility] Creatinine/Urea nitrogen [Mass Ratio] in Serum or Plasma 24 [facility] Bicarbonate [Moles/volume] in Serum 23 mmol/L 22-29 [facility] Alanine aminotransferase [Enzymatic activity/volume] in Seru m or Plasma 22 U/L <41 [facility] Anion gap 3 in Serum or Plasma 15 mmol/L 8-15 [facility] Glomerular filtration rate/1.73 sq M pre dicted among non-blacks [Volume Rate/Area] in Serum or Plasma by Creatinine-based formula (MDRD) >[address] [facility] Glomerular filtration rate/1.73 sq M pre dicted among blacks [Volume Rate/Area] in Serum or Plasma by Creatinine-based formula (MDRD) >60 [facility] ID Date Data Source [id number] 11/16/2020 05:18:11 PM EDT [facility] 2.9Serum levels of PSA should not be int erpreted as absolute evidence of the presence or absence of Cancer. Results obtained with different methods cannot be used interchangeably. This method is manufactured by [employer] and is an electrochemiluminesence immunoassay. Name Value Range Interpretation Code Description Data Belinda rce(s) Supporting Document(s) Prostate Specific Ag Free [Mass/volume] in Serum or Plasma 0.5 ng/mL [facility] Not Applicable ID Date Data Source [id number] 11/16/2020 06:51:55 AM EDT [facility] Name Value Range Interpretation Code Description Data Belinda rce(s) Supporting Document(s) Progress Note [facility] MGWOYs6oAoRNTwFv36/REGqsQDFdu0DkEDxdGYv4NKojGDYuV1VpLHI2vX2fKBS3RQkEFjBaAcJoWqUx lbm EsSnuVNrHkUHJoPpwGRlNfHYphCrbbiHEmCG5YeOU0KMXsL83uNOWvZMPcV5YxUPC4Xie+Rp6QPBUqwF GgHY5IZanC0F2bs1wHBy5txU/NwaUD2CLZ5JHpKROxl8Vj15XfmFCjL7NZ3ghGx9kQmdp/vhQfomZC/6 Kwt7SCvJOwoQuz0Kge9q5MYcJ/+V31As+yLLX87+qf QaTVYKL++FjKXAX7yzs2AliTaUJb2BwqK0X/Rvf5U2s1YAxsFYYWZ2bI7CDhSz4EWI3nZ61jUJaCvW8d 7Mw5QL824ancfX5errOcx2+NaSP0ukAih2dU3zna4mWj+zHrcG28gs8Itjr/kQHA7DahEkkrurvIQdpF kwXQk0h8fJnOAUKQzezNuEp+ZIVWR4wE+TBF+jyVuC VHX6IuH3t6OZUEmsfSsHN3qItgX7Paad2a2YHGfhMsXLhuN/Uqnswuk/873ZpcV5weGxd5SpfqAb6bSd qjS3wBALiu48wUIQAPmkhV7DAwOAj1q4/am1blX7uYbRz4Oo9hzxpfdcMjMRgs/asFipMr303SB/bHhv cbRkLtKzrm4b32+RKpRSCcbneRuw5k1WFf9JXdgWRg +T4+pN1qnbbDBirFKNrqFoelLx4jSfB9aj3Cpi1xBcJDe0tt76W/5A/DKB+VftJx7uRfXH7w8Wm7UD4v AH9hz42SBkxbQBTK/VYygOYmHb8Vh5XCL1hWD6zr87twhU46MI7+pqSzyR/v5C08PrYuLu//RdHSuUwE OBi76eYhb65XZFl19pbSxLmCBqnFIrueBWdxrjaj99 1KmfPZd6rdBDf32UWCOLAzsCsn5jRnsrrEV/dwMPBokQiWci55rEXuYJ7UgadpuPZkiS9k81pUNaf/ [file] 5L/safety attendant/HMB2ln9zextNUPJCTccWltPH9dyb0Rwhvm4DWujFBUUOcXHznbxaQ6ZHFX6XWfvxAMiHIVWJL [file] DQo= ID Date Data Source [id number] 10/05/2020 02:52:53 PM EDT [facility] BONE SCAN IMAGING WHOLE BODY [id number] AL RESULTInterpreted by:Mary Wetzel, Neena Alvarez MDINDICATION: patient undergoing treatment for metastatic prostate cancer to bone with new onset shoulder/neck/chest bone pains, need to rule out pathologic process.TECHNIQUE:-Scan region: Whole body.-Spot images: Skull, chest, pelvis.-Injected dose: 24.8 mCi Tc-99m MDP.-Post-injection imaging delay: 2 hours.COMPARISON: Bone scan 04/21/2019.FINDINGS: There is increased radiopharmaceutical uptake involving a lower thoracic vertebral body, likely T10. Increased uptake additionally involves the right hip and bilateral superior pubic rami. There is decreased radiopharmaceutical uptake in the mandible.IMPRESSION:1. Increased radiopharmaceutical uptake involving a lower thoracic vertebral body, likely T10, the right hip, and bilateral superior pubic rami. The activity within the thoracic vertebral body may represent a compression fracture, possibly pathologic. Suggest correlating with updated anatomic imaging.2. Decreased radiopharmaceutical uptake involving the mandible..This document has been electronically signed by Mary Wetzel MD on 10/05/2020 2:50 PM Name Value Range Interpretation Code Description Data Belinda rce(s) Supporting Document(s) ID Date Data Source [id number] 09/04/2020 06:39:32 AM EDT [facility] Name Value Range Interpretation Code Description Data Belinda rce(s) Supporting Document(s) Progress Note [facility] QZKUOb6oIvDTHkXz02/EDTndTBKdm0CfGWyzQUn2RWifTFKiZ6WoIBR9gN7lKJC6JYtCPbZmMhPpKHT0 lbm [file] JsWm6OQJv5EmXNIkZrTR7XMVp= ID Date Data Source [id number] 08/23/2020 10:49:[address] [facility] Name Value Range Interpretation Code Description Data Belinda rce(s) Supporting Document(s) Progress Note [facility] QXGBDq9iOeKWUjTo64/NVChqFBWtp1VbYBmrROw8SVqcWIUmR1LwGYO8pD5sVRR8NElPDxIfZiJoCIJ4 lbm [file] [facility]/k5z8sdERqgoQ6VkRobjbiJ2OGlrory6XKDLM72fUUq20+fVv80MMkFQbBgYNmA+eRTpkZ66SakLo [file] L3PW6KaHPnNPKpOZQvjFMrRZr6I64ysSVoBSisYE3BBLB+Immanuel+Uo3ZPGGuUXYjEMZwLlCsBWGCTwFuD8 KtJ4DPx4VwH2QfNW80kGuufrPrBGkdMA2ICY4mYNUpNPZKIL9CfHZacB9vrcR9LuNzJVCTJzAcG00slA GoUENvZZWwAQLmEs3KAYGsR8DfxyQegZwrlePsIRVu MOMFAO4TTJnlbkTncMUqnGdvIG78nDiqJW3MFk6PRdNgVF7rmi5NjQKwOf0RYJE4CO5QDROcARVqTTKc XDZ5FOWyWdUyIKciXXJbMZNhHZU8TSUcJPHnFL1GTpVhLVMnCNG0RCWgXATpNGGomx8WTPMjNNT4DPAj HqNkEVAtAOZoTPqtYDYiHWOkMZK9OHKaGEQpIY3VAn KhNRZnGFEbHIWqPKEpLGZaml3BLSFwCUL0EDGuZZXjFBWqRVNhCRijAHHfRWS1JcYhMLBkWUFeJO3ALp EgLXAnGGh5JERsQDAaVAAhzf2QUZIdKCEcTOZ6ZDRaLJYdJJTfQIdsLAFeDFKjRaD7PHPaKLEyGV5ZVg VeEKBhTDO0VoXrWCNpKFRtqm9GYOXfHWHoAOX4RYWz MUTgWJMhKPaoMAZsJNW7RQncWHPxIPOtLV8GZtGzPDSbLFz2QrLfZUFiGBBcsq9NPGCyQAUgKiEiBJDg FKWuSMFvQEmbLAHvZOAuJJZ2YUWsIUDsJV8WUnOjEGEfYoObFYWcGNBcEKUmsf8BWCTmXYIqCEhsKSJa JYCsMFHoORrgZJSqNYB1QCZ5XMIzGMXkAB7KWhBiLC IlCiziKRPhEJBeXRSbgy3QAJZdXARbDIL2QqReOPJyMIFeSStrZXRtAQV8EVn1GEBfWHSoWM5SEpIlMS HsMfaeROFdGSWgJRUvsx0XNRLeYIRbSEM8CSIeZXSoXLOxYGyhSKTfSFAeMePsYVHlZGCePS5FUaItZP SsBjH2WcGnSNTrEIViuy1JPYSyNXZvLJZ7RMRjTITp EXNkITuaCZKhCKRwXig1QQWgJFMmHG6PWwSqXHSkKwY3XsEoMBAxMYJirz0RBSBmHEP6XpVrNSVuQPGn LZCrOUxfCQUtDMMsPwJ0FBIdQQOoJC2CUxIyNAHwJPZ3NkmsVQBvJFSrnz3GNQBgJXE2UBE9IGAlPWMx WDPdKBekUUSdAJQ7RcA8LWGfDUKfMN7CQzGzBDUhPM GhNicmIARoUYIvqs6HPDLxXWB7ISB2EwKyGVTjEXJsRInlBLEwEFN3AVT9FFSeUNFpMM3JNwSfXYZbVX S6VSeqGTCyYRYdpp2MIGTrHYX3TmG8RPInMPIuKPKlKKlpAYJiTLK0MSItRGWbXLVxIQ1PJvQlGPBaZI yyPWHjXRSkBRWmjo0REOQgQRR0BBx0WSWpCWZkCSUx KTzwFENkHIV0DVGnHXSpTVGeLC8AIjQqBYPeVQzrXOXkKVZuMZYjkb2GhCItqZhvtn4STUaWQp3ByOyr LPX4LJbkSn8zpSG7DXMwCFCXRh0FdzXeHMXoBNETPQrtLQSiFHL6AiqpQmC7OIF2CLF1D5R0PEQwKaux BgKhZgr1ITy5PvI9FuC7AHKmOWUfCiG7FODiRMNvEG FjOWQyZmZmODQwNzk+HU7eYPn+Td0Lz2FnxuL6bwEtOAh3NNZxRH8EWCHVB4BRXw== ID Date Data Source [id number] 08/20/2020 11:18:28 AM EDT [facility] 1.6Serum levels of PSA should not be int erpreted as absolute evidence of the presence or absence of Cancer. Results obtained with different methods cannot be used interchangeably. This method is manufactured by [employer] and is an electrochemiluminesence immunoassay. Name Value Range Interpretation Code Description Data Belinda rce(s) Supporting Document(s) Leukocytes [#/volume] in Blood by Automated count 6.3 10*3/uL 4-10 [facility] Erythrocytes [#/volume] in Blood by Automated count 4.32 10*6/uL 4.6- 6.[address] [facility] Hemoglobin [Mass/volume] in Blood 13.6 g/dL 13.5-18 [facility] Hematocrit [Volume Fraction] of Blood by Automated count 41.6 % 4 1-53 [facility] Erythrocyte mean corpuscular volume [Entitic volume] by Auto mated count 96.3 fL 80-[address] [facility] Erythrocyte mean corpuscular hemoglobin [Entitic mass] by Automated count 31.4 pg 27-33 [facility] Erythrocyte mean corpuscular hemoglobin concentration [Mass/volume] by Automated count 32.6 g/dL 32.0-36.0 [facility] width [Ratio] by Automated count 13.9 % 11.5-14.5 [facility] Platelets [#/volume] in Blood by Automated count 290 10*3/uL 150-400 [facility] Differential cell count method - Blood [facility] Neutrophils/100 leukocytes in Blood by Automated count 58 % [facility] Lymphocytes/100 leukocytes in Blood by Automated count 33 % [facility] Monocytes/100 leukocytes in Blood by Automated count 6 % [facility] Eosinophils/100 leukocytes in Blood by Automated count 2 % [facility] Basophils/100 leukocytes in Blood by Automated count 1 % [facility] Neutrophils [#/volume] in Blood by Automated count 3.62 10*3/uL 1.8-[address] [facility] Lymphocytes [#/volume] in Blood by Automated count 2.12 10*3/uL 1.2-[address] [facility] Monocytes [#/volume] in Blood by Automated count 0.41 10*3/uL 0-0.8 [facility] Eosinophils [#/volume] in Blood by Automated count 0.15 10*3/uL 0-0.5 [facility] Basophils [#/volume] in Blood by Automated count 0.04 10*3/uL 0-0.2 [facility] Nucleated erythrocytes/100 leukocytes [Ratio] in Blood by Automated count 0 /100{WBCs} 0-0 [facility] ID Date Data Source [id number] 08/20/2020 12:02:10 PM EDT [facility] 1.6Serum levels of PSA should not be int erpreted as absolute evidence of the presence or absence of Cancer. Results obtained with different methods cannot be used interchangeably. This method is manufactured by [employer] and is an electrochemiluminesence immunoassay. Name Value Range Interpretation Code Description Data Belinda rce(s) Supporting Document(s) Albumin [Mass/volume] in Serum or Plasma by Bromocresol green (BCG) dye binding method 4.5 g/dL 3.5-5.2 [facility] Bil[facility].total [Mass/volume] in Serum or Plasma 0.2 mg/dL <1.2 [facility] Calcium [Mass/volume] in Serum or Plasma 9.4 mg/dL 8.6-10.0 [facility] Chloride [Moles/volume] in Serum or Plasma 103 mmol/L 98-107 [facility] Creatinine [Mass/volume] in Serum or Plasma 0.82 mg/dL 0.70-1.20 [facility] Glucose [Mass/volume] in Serum or Plasma 106 mg/dL 70-140 [facility] Alkaline phosphatase [Enzymatic activity/volume] in Serum or Plasma 97 U/L 40-129 [facility] Potassium [Moles/volume] in Serum or Plasma 4.0 mmol/L 3.4-5.1 [facility] Protein [Mass/volume] in Serum or Plasma 7.0 g/dL 6.4-8.3 [facility] Sodium [Moles/volume] in Serum or Plasma 137 mmol/L 136-145 [facility] Aspartate aminotransferase [Enzymatic activity/volume] in Serum or Plasma 22 U/L <40 [facility] Urea nitrogen [Mass/volume] in Serum or Plasma 16 mg/dL 8-23 [facility] Osmolality of Serum or Plasma by calculation 286 mosm/kg 275-300 [facility] Creatinine/Urea nitrogen [Mass Ratio] in Serum or Plasma 20 [facility] Bicarbonate [Moles/volume] in Serum 24 mmol/L 22-29 [facility] Alanine aminotransferase [Enzymatic activity/volume] in Seru m or Plasma 36 U/L <41 [facility] Anion gap 3 in Serum or Plasma 10 mmol/L 8-15 [facility] Glomerular filtration rate/1.73 sq M pre dicted among non-blacks [Volume Rate/Area] in Serum or Plasma by Creatinine-based formula (MDRD) >[address] [facility] Glomerular filtration rate/1.73 sq M pre dicted among blacks [Volume Rate/Area] in Serum or Plasma by Creatinine-based formula (MDRD) >60 [facility] ID Date Data Source [id number] 08/20/2020 12:14:09 PM T [facility] 1.6Serum levels of PSA should not be int erpreted as absolute evidence of the presence or absence of Cancer. Results obtained with different methods cannot be used interchangeably. This method is manufactured by [employer] and is an electrochemiluminesence immunoassay. Name Value Range Interpretation Code Description Data Belinda rce(s) Supporting Document(s) Prostate Specific Ag Free [Mass/volume] in Serum or Plasma 0.4 ng/mL [facility] Not Applicable ID Date Data Source [id number] 08/17/2020 10:03:13 AM [facility] Name Value Range Interpretation Code Description Data Belinda rce(s) Supporting Document(s) Progress Note [facility] PJOHYb3rSzQFFfFa05/LCXmwJRZwh2ZlPEvqMFl4QUdkBUJoV8CeZHK2tM1lHMU6RDkVTjRtCaOaCSA[facility] [file] zOpPNUHr5e0eiyCcp9yVvj5/xI1vs14uJOpOE0MmBIknbNmXEwQ68LeJTqfiggn4MyG+mejía/q85gx7i0L [file] dNVyhBknAYMYKrWzSDAfKWrfHBMDLc9N ID Date Data Source [id number] 06/07/2020 05:09:38 AM [facility] Name Value Range Interpretation Code Description Data Belinda rce(s) Supporting Document(s) Progress Note [facility] GLKRAv0pPrTGJzXa83/FZQynJVNnm4HtICqoMJm3PKmhYWUtK6NvVSM2gC8rTWA3PBxGYkYoSeUlVoM6 lbm [file] MLOcQdu8IxLpPWF3Y5EeDnO3NCP4SKGcLeo9DiSa NC5MTb9KRrD1JBI8kXAfZe7WAgI2LAWHRqLfYO0BTMg= ID Date Data Source [id number] 06/07/2020 05:09:33 AM [facility] Name Value Range Interpretation Code Description Data Belinda rce(s) Supporting Document(s) Progress Note [facility] RCQSUl8bClIHXvOv93/NCGgsDIMmc9YkRIsySWi2SUyeOLOsB1JaGDJ6rB7rFCA7XSeBSiRhOjBrVmT2 lbm [file] I5WGB9gASjLx2HZYNiSBMTOhNvSX6PODr= ID Date Data Source [id number] 06/02/2020 09:23:36 AM EST [facility] Name Value Range Interpretation Code Description Data Belinda rce(s) Supporting Document(s) Progress Note [facility] FRYUNq4lLjVQHsHt67/VTFfdYNOgg2MzVAorOTh4AOfoDBMaI9PwJBQ1bP9vENT8ZIdAAsLcWsQsDkBr lbm [file] [facility]//2/392uR040wpzAeM9ae85fXSVC9ZMUXU51DF [file] J7WNPrYCS2G8YgLpB8OU0lVSAZHe6+IYcqqMZjfSvlWCQZTjPbLTo0KQlqITPHKi2Y ID Date Data Source [id number] 05/21/2020 10:24:20 AM [facility] 1.4Serum levels of PSA should not be int erpreted as absolute evidence of the presence or absence of Cancer. Results obtained with different methods cannot be used interchangeably. This method is manufactured by [employer] and is an electrochemiluminesence immunoassay. Name Value Range Interpretation Code Description Data Belinda rce(s) Supporting Document(s) Leukocytes [#/volume] in Blood by Automated count 5.5 10*3/uL 4-10 [facility] Erythrocytes [#/volume] in Blood by Automated count 4.34 10*6/uL 4.6- 6.[address] [facility] Hemoglobin [Mass/volume] in Blood 13.5 g/dL 13.5-18 [facility] Hematocrit [Volume Fraction] of Blood by Automated count 41.6 % 4 1-53 [facility] Erythrocyte mean corpuscular volume [Entitic volume] by Auto mated count 95.8 fL 80-96 [facility] Erythrocyte mean corpuscular hemoglobin [Entitic mass] by Automated count 31.2 pg 27-33 [facility] Erythrocyte mean corpuscular hemoglobin concentration [Mass/volume] by Automated count 32.5 g/dL [facility].0[facility] width [Ratio] by Automated count 15.7 % 11.5-14.[address] [facility] Platelets [#/volume] in Blood by Automated count 276 10*3/uL 150-400 [facility] Differential cell count method - Blood [facility] Neutrophils/100 leukocytes in Blood by Automated count 48 % [facility] Lymphocytes/100 leukocytes in Blood by Automated count 39 % [facility] Monocytes/100 leukocytes in Blood by Automated count 8 % [facility] Eosinophils/100 leukocytes in Blood by Automated count 4 % [facility] Basophils/100 leukocytes in Blood by Automated count 1 % [facility] Neutrophils [#/volume] in Blood by Automated count 2.67 10*3/uL 1.8-[address] [facility] Lymphocytes [#/volume] in Blood by Automated count 2.16 10*3/uL 1.2-[address] [facility] Monocytes [#/volume] in Blood by Automated count 0.43 10*3/uL 0-0.8 [facility] Eosinophils [#/volume] in Blood by Automated count 0.23 10*3/uL 0-0.5 [facility] Basophils [#/volume] in Blood by Automated count 0.05 10*3/uL 0-0.2 [facility] Nucleated erythrocytes/100 leukocytes [Ratio] in Blood by Automated count 0 /100{WBCs} 0-0 [facility] ID Date Data Source [id number] 05/21/2020 11:33:10 AM [facility] 1.4Serum levels of PSA should not be int erpreted as absolute evidence of the presence or absence of Cancer. Results obtained with different methods cannot be used interchangeably. This method is manufactured by [employer] and is an electrochemiluminesence immunoassay. Name Value Range Interpretation Code Description Data Belinda rce(s) Supporting Document(s) Prostate Specific Ag Free [Mass/volume] in Serum or Plasma 0.3 ng/mL [facility] Not Applicable ID Date Data Source [id number] 05/21/2020 11:35:30 AM [facility] 1.4Serum levels of PSA should not be int erpreted as absolute evidence of the presence or absence of Cancer. Results obtained with different methods cannot be used interchangeably. This method is manufactured by [employer] and is an electrochemiluminesence immunoassay. Name Value Range Interpretation Code Description Data Belinda rce(s) Supporting Document(s) Albumin [Mass/volume] in Serum or Plasma by Bromocresol green (BCG) dye binding method 4.3 g/dL 3.5[facility]5.2 [facility] Bil[facility].total [Mass/volume] in Serum or Plasma 0.3 mg/dL <1.2 [facility] Calcium [Mass/volume] in Serum or Plasma 10.1 mg/dL 8.6-10.[address] [facility] Chloride [Moles/volume] in Serum or Plasma 104 mmol/L 98-107 [facility] Creatinine [Mass/volume] in Serum or Plasma 0.88 mg/dL 0.70-1.20 [facility] Glucose [Mass/volume] in Serum or Plasma 108 mg/dL 70-140 [facility] Alkaline phosphatase [Enzymatic activity/volume] in Serum or Plasma 95 U/L 40-129 [facility] Potassium [Moles/volume] in Serum or Plasma 4.1 mmol/L 3.4-5.1 [facility] Protein [Mass/volume] in Serum or Plasma 7.2 g/dL 6.4-8.3 [facility] Sodium [Moles/volume] in Serum or Plasma 139 mmol/L 136-145 [facility] Aspartate aminotransferase [Enzymatic activity/volume] in Serum or Plasma 20 U/L <40 [facility] Urea nitrogen [Mass/volume] in Serum or Plasma 23 mg/dL 6-[address] [facility] Osmolality of Serum or Plasma by calculation 292 mosm/kg 275-300 [facility] Creatinine/Urea nitrogen [Mass Ratio] in Serum or Plasma 26 [facility] Bicarbonate [Moles/volume] in Serum 22 mmol/L 22-29 [facility] Alanine aminotransferase [Enzymatic activity/volume] in Seru m or Plasma 29 U/L <41 [facility] Anion gap 3 in Serum or Plasma 13 mmol/L 8-15 [facility] Glomerular filtration rate/1.73 sq M pre dicted among non-blacks [Volume Rate/Area] in Serum or Plasma by Creatinine-based formula (MDRD) >[address] [facility] Glomerular filtration rate/1.73 sq M pre dicted among blacks [Volume Rate/Area] in Serum or Plasma by Creatinine-based formula (MDRD) >60 [facility] ID Date Data Source [id number] 02/25/2020 04:11:17 PM EDT [facility] Name Value Range Interpretation Code Description Data Belinda rce(s) Supporting Document(s) Progress Note [facility] [id number] lbm [file] [id number] ID Date Data Source [id number] 02/20/2020 08:10:09 AM EDT [facility] Name Value Range Interpretation Code Description Data Belinda rce(s) Supporting Document(s) Progress Note [facility] [id number] lbm [file] Cg== ID Date Data Source [id number] 02/19/2020 03:05:47 PM EDT [facility] 1.2Serum levels of PSA should not be int erpreted as absolute evidence of the presence or absence of Cancer. Results obtained with different methods cannot be used interchangeably. This method is manufactured by [employer] and is an electrochemiluminesence immunoassay. Name Value Range Interpretation Code Description Data Belinda rce(s) Supporting Document(s) Leukocytes [#/volume] in Blood by Automated count 6.3 10*3/uL 4-10 [facility] Erythrocytes [#/volume] in Blood by Automated count 4.06 10*6/uL 4.6- 6.[address] [facility] Hemoglobin [Mass/volume] in Blood 12.7 g/dL 13.5-[address] [facility] Hematocrit [Volume Fraction] of Blood by Automated count 38.3 % 4 1-[address] [facility] Erythrocyte mean corpuscular volume [Entitic volume] by Auto mated count 94.2 fL 80-96 [facility] Erythrocyte mean corpuscular hemoglobin [Entitic mass] by Automated count 31.4 pg 27-33 [facility] Erythrocyte mean corpuscular hemoglobin concentration [Mass/volume] by Automated count 33.3 g/dL 32.0-36.0 [facility] Erythrocyte distribution width [Ratio] by Automated count 15.2 % 11.5-14.[address] [facility] Platelets [#/volume] in Blood by Automated count 313 10*3/uL 150-400 [facility] Differential cell count method - Blood [facility] Neutrophils/100 leukocytes in Blood by Automated count 58 % [facility] Lymphocytes/100 leukocytes in Blood by Automated count 33 % [facility] Monocytes/100 leukocytes in Blood by Automated count 6 % [facility] Eosinophils/100 leukocytes in Blood by Automated count 2 % [facility] Basophils/100 leukocytes in Blood by Automated count 1 % [facility] Neutrophils [#/volume] in Blood by Automated count 3.61 10*3/uL 1.8-[address] [facility] Lymphocytes [#/volume] in Blood by Automated count 2.10 10*3/uL 1.2-[address] [facility] Monocytes [#/volume] in Blood by Automated count 0.39 10*3/uL 0-0.8 [facility] Eosinophils [#/volume] in Blood by Automated count 0.14 10*3/uL 0-0.5 [facility] Basophils [#/volume] in Blood by Automated count 0.07 10*3/uL 0-0.2 [facility] Nucleated erythrocytes/100 leukocytes [Ratio] in Blood by Automated count 0 /100{WBCs} 0-0 [facility] ID Date Data Source [id number] 02/19/2020 04:03:40 PM [facility] 1.2Serum levels of PSA should not be int erpreted as absolute evidence of the presence or absence of Cancer. Results obtained with different methods cannot be used interchangeably. This method is manufactured by [employer] and is an electrochemiluminesence immunoassay. Name Value Range Interpretation Code Description Data Belinda rce(s) Supporting Document(s) Prostate Specific Ag Free [Mass/volume] in Serum or Plasma 0.3 ng/mL [facility] Not Applicable ID Date Data Source [id number] 02/19/2020 04:05:21 PM [facility] 1.2Serum levels of PSA should not be int erpreted as absolute evidence of the presence or absence of Cancer. Results obtained with different methods cannot be used interchangeably. This method is manufactured by [employer] and is an electrochemiluminesence immunoassay. Name Value Range Interpretation Code Description Data Belinda rce(s) Supporting Document(s) Albumin [Mass/volume] in Serum or Plasma by Bromocresol green (BCG) dye binding method 4.0 g/dL 3.5-5.2 [facility] Bilirubin.total [Mass/volume] in Serum or Plasma <1.2 [facility] Calcium [Mass/volume] in Serum or Plasma 9.3 mg/dL 8.6-10.0 [facility] Chloride [Moles/volume] in Serum or Plasma 105 mmol/L 98-107 [facility] Creatinine [Mass/volume] in Serum or Plasma 0.84 mg/dL 0.70-1.20 [facility] Glucose [Mass/volume] in Serum or Plasma 95 mg/dL 70-140 [facility] Alkaline phosphatase [Enzymatic activity/volume] in Serum or Plasma 77 U/L 40-129 [facility] Potassium [Moles/volume] in Serum or Plasma 4.1 mmol/L 3.4-5.1 [facility] Hemolyzed Protein [Mass/volume] in Serum or Plasma 6.5 g/dL 6.4-8.3 [facility] Sodium [Moles/volume] in Serum or Plasma 138 mmol/L 136-145 [facility] Aspartate aminotransferase [Enzymatic activity/volume] in Serum or Plasma 21 U/L <40 [facility] Urea nitrogen [Mass/volume] in Serum or Plasma 18 mg/dL 6-20 [facility] Osmolality of Serum or Plasma by calculation 288 mosm/kg 275-300 [facility] Creatinine/Urea nitrogen [Mass Ratio] in Serum or Plasma 21 [facility] Bicarbonate [Moles/volume] in Serum 20 mmol/L 22-[address] [facility] Alanine aminotransferase [Enzymatic activity/volume] in Seru m or Plasma 17 U/L <41 [facility] Anion gap 3 in Serum or Plasma 13 mmol/L 8-15 [facility] Glomerular filtration rate/1.73 sq M pre dicted among non-blacks [Volume Rate/Area] in Serum or Plasma by Creatinine-based formula (MDRD) >[address] [facility] Glomerular filtration rate/1.73 sq M pre dicted among blacks [Volume Rate/Area] in Serum or Plasma by Creatinine-based formula (MDRD) >60 [facility] Procedure Social History Code Duration Value Status Description Data Source(s ) Alcohol intake 01/11/2021 12:00:00 AM EDT Current non-d ibrahima of alcohol (finding) completed Current non-drinker of alcohol (finding) [facility] Tobacco use and exposure 01/11/2021 12:00:00 AM EDT Never used co mpleted Never used [facility] Smoking 01/11/2021 12:00:00 AM EDT Former smoker completed Former smoker [facility] Alcohol intake 12/28/2020 12:00:00 AM EDT Current non-d ibrahima of alcohol (finding) completed Current non-drinker of alcohol (finding) [facility] Alcohol intake 12/22/2020 12:00:00 AM EDT Current non-d ibrahima of alcohol (finding) completed Current non-drinker of alcohol (finding) [facility] Alcohol intake 12/14/2020 12:00:00 AM EDT Current non-d ibrahima of alcohol (finding) completed Current non-drinker of alcohol (finding) [facility] Alcohol intake 11/24/2020 12:00:00 AM EDT Current non-d ibrahima of alcohol (finding) completed Current non-drinker of alcohol (finding) [facility] Alcohol intake 11/23/2020 12:00:00 AM EDT Current non-d ibrahima of alcohol (finding) completed Current non-drinker of alcohol (finding) [facility] Alcohol intake 11/16/2020 12:00:00 AM EDT Current non-d ibrahima of alcohol (finding) completed Current non-drinker of alcohol (finding) [facility] Smoking 10/20/2020 12:00:00 AM EDT Former Smoker completed Former Smoker eCW1 ([facility]) Smoking 10/20/2020 12:00:00 AM EDT Former Smoker completed Former Smoker eCW1 ([facility]) Smoking 10/20/2020 12:00:00 AM EDT Former Smoker completed Former Smoker eCW1 ([facility]) Smoking 10/20/2020 12:00:00 AM EDT Former Smoker completed Former Smoker eCW1 ([facility]) Smoking 10/20/2020 12:00:00 AM EDT Former Smoker completed Former Smoker eCW1 ([facility]) Smoking 10/20/2020 12:00:00 AM EDT Former Smoker completed Former Smoker eCW1 ([facility]) Smoking 10/20/2020 12:00:00 AM EDT Former Smoker completed Former Smoker eCW1 ([facility]) Smoking 10/20/2020 12:00:00 AM EDT Former Smoker completed Former Smoker eCW1 ([facility]) Smoking 10/20/2020 12:00:00 AM EDT Former Smoker completed Former Smoker eCW1 ([facility]) Smoking 10/20/2020 12:00:00 AM EDT Former Smoker completed Former Smoker eCW1 ([facility]) Smoking 10/20/2020 12:00:00 AM EDT Former Smoker completed Former Smoker eCW1 ([facility]) Smoking 10/20/2020 12:00:00 AM EDT Former Smoker completed Former Smoker eCW1 ([facility]) Smoking 10/20/2020 12:00:00 AM EDT Former Smoker completed Former Smoker eCW1 ([facility]) Smoking 10/20/2020 12:00:00 AM EDT Former Smoker completed Former Smoker eCW1 ([facility]) Alcohol intake 10/19/2020 12:00:00 AM EDT Current non-d ibrahima of alcohol (finding) completed Current non-drinker of alcohol (finding) [facility] Smoking 08/23/2020 12:00:00 AM EDT Former Smoker completed Former Smoker eCW1 ([facility]) Smoking 08/23/2020 12:00:00 AM EDT Former Smoker completed Former Smoker eCW1 ([facility]) Smoking 08/23/2020 12:00:00 AM EDT Former Smoker completed Former Smoker eCW1 ([facility]) Smoking 08/23/2020 12:00:00 AM EDT Former Smoker completed Former Smoker eCW1 ([facility]) Alcohol intake 08/20/2020 12:00:00 AM EDT Current non-d ibrahima of alcohol (finding) completed Current non-drinker of alcohol (finding) [facility] Alcohol intake 08/17/2020 12:00:00 AM EDT Current non-d ibrahima of alcohol (finding) completed Current non-drinker of alcohol (finding) [facility] Smoking 07/19/2020 12:00:00 AM EDT Former Smoker completed Former Smoker eCW1 ([facility]) Smoking 07/19/2020 12:00:00 AM EDT Former Smoker completed Former Smoker eCW1 ([facility]) Alcohol intake 05/21/2020 12:00:00 AM EST Current non-d ibrahima of alcohol (finding) completed Current non-drinker of alcohol (finding) [facility] Smoking 05/10/2020 12:00:00 AM EST Former Smoker completed Former Smoker eCW1 ([facility]) Smoking 05/10/2020 12:00:00 AM EST Former Smoker completed Former Smoker eCW1 ([facility]) Smoking 05/10/2020 12:00:00 AM EST Former Smoker completed Former Smoker eCW1 ([facility]) Smoking 04/26/2020 12:00:00 AM EST Former Smoker completed Former Smoker eCW1 ([facility]) Smoking 04/26/2020 12:00:00 AM EST Former Smoker completed Former Smoker eCW1 ([facility]) Smoking 03/08/2020 12:00:00 AM EST Former Smoker completed Former Smoker eCW1 ([facility]) Smoking 03/08/2020 12:00:00 AM EST Former Smoker completed Former Smoker eCW1 ([facility]) Smoking 03/08/2020 12:00:00 AM EST Former Smoker completed Former Smoker eCW1 ([facility]) Smoking 03/08/2020 12:00:00 AM EST Former Smoker completed Former Smoker eCW1 ([facility]) Smoking 03/08/2020 12:00:00 AM EST Former Smoker completed Former Smoker eCW1 ([facility]) Alcohol intake 02/19/2020 12:00:00 AM EDT Current non-d ibrahima of alcohol (finding) completed Current non-drinker of alcohol (finding) [facility] Vital Signs ID Date Data Source UNK Name Value Range Interpretation Code Description Data Source(s) Body height [in_i] eCW1 ([facility]) Body weight 202.8 [lb_av] 202.8 [lb_av] eCW1 ([facility]) Body mass index (BMI) [Ratio] 30.83 kg/m2 30.83 kg/m2 eCW1 ([facility]) Heart rate 90 /min 90 /min eCW1 ([facility]) Respiratory rate 18 /min 18 /min eCW1 ([facility]) Body temperature 97.7 [degF] 97.7 [degF] eCW1 ( [facility]) Systolic blood pressure 118 mm[Hg] 118 mm[Hg] e CW1 ([facility]) Diastolic blood pressure 78 mm[Hg] 78 mm[Hg] eCW1 ([facility]) Body weight 218 [lb_av] 218 [lb_av] eCW1 ([facility]) Body height [in_i] eCW1 ([facility]) Body mass index (BMI) [Ratio] 33.14 kg/m2 33.14 kg/m2 eCW1 ([facility]) Heart rate 102 /min 102 /min eCW1 ([facility]) Respiratory rate 18 /min 18 /min eCW1 ([facility]) Body temperature 96.7 [degF] 96.7 [degF] eCW1 ( [facility]) Systolic blood pressure 116 mm[Hg] 116 mm[Hg] e CW1 ([facility]) Diastolic blood pressure 80 mm[Hg] 80 mm[Hg] eCW1 ([facility]) Body height 68 [in_i] 68 [in_i] [facility] ([facility], ) 5'8" Body weight 200.00 [lb_av] 200.00 [lb_av] [facility] ([facility], ) Body mass index (BMI) [Ratio] 30.4 kg/m2 30.4 k g/m2 [facility] ([facility], ) [place] body weight 154 [lb_av] 154 [lb_av] [facility] ([facility], ) Body weight 90.720 kg 90.720 kg [facility] ([facility], ) Body surface area Derived from formula 2.04 m2 2.04 m2 [facility] ([facility], ) Body temperature 97.7 [degF] 97.7 [degF] eCW1 ( [facility]) Body weight 209 [lb_av] 209 [lb_av] eCW1 ([facility]) Body height [in_i] eCW1 ([facility]) Body mass index (BMI) [Ratio] 31.77 kg/m2 31.77 kg/m2 eCW1 ([facility]) Respiratory rate 18 /min 18 /min eCW1 ([facility]) Systolic blood pressure 138 mm[Hg] 138 mm[Hg] e CW1 ([facility]) Heart rate 106 /min 106 /min eCW1 ([facility]) Diastolic blood pressure 108 mm[Hg] 108 mm[Hg] eCW1 ([facility]) ID Date Data Source [id number] 01/13/2021 12:47:21 PM EDT [facility] Name Value Range Interpretation Code Description Data Source(s) TRANSFER FROM Outpatient Clinic/Office [facility] ID Date Data Source [id number] 01/12/2021 08:12:49 AM EDT [facility] Name Value Range Interpretation Code Description Data Source(s) TRANSFER FROM Outpatient Clinic/Office [facility] ID Date Data Source [id number] 02/04/2021 12:32:39 PM EDT [facility] Name Value Range Interpretation Code Description Data Source(s) TRANSFER FROM Outpatient Clinic/Office [facility] ID Date Data Source [id number] 12/20/2020 03:22:50 PM EDT [facility] Name Value Range Interpretation Code Description Data Source(s) WEIGHT RECORDED 173 lb 173 lb [facility] ID Date Data Source [id number] [facility] Interpretation Code Description Data Source(s) WEIGHT RECORDED 214 lb 214 lb [facility] ID Date Data Source [id number] [facility] Interpretation Code Description Data Source(s) WEIGHT RECORDED 208 lb 208 lb [facility] Body height Measured 67.99 in 67.99 in [facility] ID Date Data Source [id number] 07/12/2020 08:18:53 AM [facility] Name Value Range Interpretation Code Description Data Source(s) WEIGHT RECORDED 213 lb 213 lb [facility] ID Date Data Source [id number] 02/25/2020 04:11:17 PM [facility] Name Value Range Interpretation Code Description Data Source(s) WEIGHT RECORDED 209.6 lb 209.6 lb [facility] Body height Measured 67.99 in 67.99 in [facility] ID Date Data Source [id number] 02/20/2020 08:10:09 AM [facility] Name Value Range Interpretation Code Description Data Source(s) WEIGHT RECORDED 208.8 lb 208.8 lb [facility] Patient Treatment Plan of Care Planned Activity Planned Date Details Description Data Source (s) Folic Acid 1 MG Oral Tablet 01/18/2021 12:00:00 AM [facility] salmon calcitonin 200 UNT/ACTUAT Nasal [place] 01/17/2021 12:00:00 AM [facility] ferrous gluconate 324 MG Oral Tablet 01/17/2021 12:00:00 AM [facility] salmon calcitonin 200 UNT/ACTUAT Nasal [place] 01/17/2021 12:00:00 AM [facility] salmon calcitonin 200 UNT/ML Injectable Solution 01/17/2021 12:00:0 0 AM [facility] salmon calcitonin 200 UNT/ML Injectable Solution 01/17/2021 12:00:0 0 AM [facility] Acetaminophen 325 MG Oral Tablet 01/11/2021 05:17:54 PM [facility] Carisoprodol 350 MG Oral Tablet 01/11/2021 05:17:53 PM [facility] Ondansetron 8 MG Oral Tablet 01/11/2021 05:17:53 PM [facility] lidocaine (XYLOCAINE) 2 % urojet 20 mL 12/22/2020 12:00:00 PM [facility] sennosides, MCFP 8.6 MG Oral Tablet 12/14/2020 12:00:00 AM [facility] Docusate Sodium 50 MG / sennosides, MCFP 8.6 MG Oral Ta blet 12/14/2020 12:00:00 AM [facility] POLYETHYLENE GLYCOL 3350 142 MG/ML Oral Solution 12/14/2020 12:00:0 0 AM [facility] Lactulose 667 MG/ML Oral Solution 12/14/2020 12:00:00 AM [facility] Oxycodone Hydrochloride 15 MG Oral Tablet 12/10/2020 12:00:00 AM ED [facility] Self-Cath Coude Tip 11/29/2020 12:00:00 AM [facility] Ondansetron 8 MG Oral Tablet 11/23/2020 12:00:00 AM [facility] Prochlorperazine 10 MG Oral Tablet 11/23/2020 12:00:00 AM [facility] Prednisone 10 MG Oral Tablet 11/23/2020 12:00:00 AM [facility] Morphine Sulfate 15 MG Extended Release Oral Tablet 11/17/19 12:00:00 AM [facility] Oxycodone Hydrochloride 15 MG Oral Tablet 11/11/2020 12:00:00 AM [facility] Ciprofloxacin 500 MG Oral Tablet [Cipro] 10/20/2020 12:00:00 AM EDT [facility] ([facility]) Ciprofloxacin 500 MG Oral Tablet [Cipro] 10/20/2020 12:00:00 AM EDT [facility] ([facility]) Ciprofloxacin 500 MG Oral Tablet [Cipro] 10/20/2020 12:00:00 AM EDT [facility] ([facility]) Ciprofloxacin 500 MG Oral Tablet [Cipro] 10/20/2020 12:00:00 AM EDT [facility] ([facility]) Oxycodone Hydrochloride 15 MG Oral Tablet 10/11/2020 12:00:00 AM [facility] Oxycodone Hydrochloride 15 MG Oral Tablet 09/10/2020 12:00:00 AM [facility] Oxycodone Hydrochloride 15 MG Oral Tablet 08/12/2020 12:00:00 AM [facility] enzalutamide 40 MG Oral Capsule [Xtandi] 06/14/2020 12:00:00 AM [facility] Oxycodone Hydrochloride 15 MG Oral Tablet 05/11/2020 12:00:00 AM [facility] gabapentin 300 MG Oral Capsule 03/08/2020 12:00:00 AM EST eCW1 ([facility]) gabapentin 300 MG Oral Capsule 03/08/2020 12:00:00 AM EST eCW1 ([facility]) gabapentin 300 MG Oral Capsule 03/08/2020 12:00:00 AM EST eCW1 ([facility]) gabapentin 300 MG Oral Capsule 03/08/2020 12:00:00 AM EST eCW1 ([facility]) gabapentin 300 MG Oral Capsule 03/08/2020 12:00:00 AM EST eCW1 ([facility]) Oxycodone Hydrochloride 15 MG Oral Tablet 02/12/2020 12:00:00 AM [facility] Pentoxifylline 400 MG Extended Release Oral Tablet 12/01/2018 12 :00:00 AM [facility] Catheters (BARD COUDE TIP CATHETER) MISC 10/30/2018 12:00:00 AM [facility] irbesartan 300 MG Oral Tablet 10/15/2018 12:00:00 AM [facility] Losartan Potassium 50 MG Oral Tablet 01/17/2018 12:00:00 AM [facility] atorvastatin 20 MG Oral Tablet 01/07/2018 12:00:00 AM [facility] Amlodipine 10 MG Oral Tablet 09/17/2017 12:00:00 AM [facility] 12 HR Orphenadrine Citrate 100 MG Extended Release Ora l Tablet 09/14/2017 12:00:00 AM [facility] Calcium Carbonate [address] [facility] Losartan Potassium [address] [facility] Losartan Potassium [address] [facility] Diclofenac Sodium 50 MG Delayed Release Oral Tablet [facility] Leuprolide Acetate (LUPRON DEPOT IM) [facility] Ascorbic Acid (VITAMIN C PO) [facility]
[2021-02-16 12:18] LABS: BASO % 0.3 % (0.0-1.0); EOS % 0.1 % (0.0-3.0); HEMATOCRIT 27.2 % (42.0-52.0); HEMOGLOBIN 8.6 g/dl (13.5-17.5); LYMPH # 0.8 10^3/uL (1.5-5.0); LYMPH % 7.1 % (24.0-44.0); MEAN CORPUSCULAR HEMOGLOBIN 27.7 pg (27.0-33.0); MEAN CORPUSCULAR HGB CONC 31.6 g/dl (32.0-36.5); MEAN CORPUSCULAR VOLUME 87.7 fl (80.0-96.0); MONO # 0.8 10^3/uL (0.0-0.8); MONO % 6.6 % (2.0-8.0); NEUTROPHILS # 9.7 10^3/uL (1.5-8.5); NEUTROPHILS % 85.2 % (36.0-66.0); PLATELET COUNT, AUTOMATED 480 10^3/uL (150-450); WHITE BLOOD COUNT 11.3 10^3/uL (4.0-10.0)
[2021-02-16] MEDS ORDERED: NS 1,000 ML IV ONE ×2 (12:35→16:25)
[2021-02-16] MEDS ORDERED: LIDOCAINE 2% 5ML JELLY UROJET TOP ONE ×2 (12:35→13:20)
--- NOTE | 2021-02-16 12:51 | REP ---
INDICATION: hx altered ms. COMPARISON: 02/04/2021. TECHNIQUE: Single portable AP view of the chest was performed. FINDINGS: There is no acute infiltrate or pulmonary edema. Lungs are clear. The heart is not significantly enlarged. There is tortuosity of the thoracic aorta. The mediastinal silhouette is otherwise unremarkable. The visualized osseous structures are intact.A right central venous catheter is again visualized. IMPRESSION: No acute pulmonary disease. <Electronically signed by Keyshawn Ibarra > 02/16/21 1557
--- OUTSIDE RECORDS SUMMARY | 2021-02-16 13:02 | CCD ---
Author Author [facility] Organization [facility] Address Unknown Phone Unavailable Care Team Providers Care Visiting Professor Name Role Phone Loida ARCHER MD Unavailable [...] Unavailable Unavailable Rice, R Re Unavailable Unavailable FABIAN, RUSTAM MD Unavailable Unavailable [...] Unavailable FABIAN, RUSTAM MD Unavailable Unavailable LEUBNER SALES OPERATIONS CONSULTANT, BRADLEY CYNTHIA SALES OPERATIONS CONSULTANT Unavailable [email or web address] LEUBNER SALES OPERATIONS CONSULTANT, BRADLEY CYNTHIA SALES OPERATIONS CONSULTANT Unavailable [email or web address] LEUBNER SALES OPERATIONS CONSULTANT, BRADLEY CYNTHIA SALES OPERATIONS CONSULTANT Unavailable [email or web address] LEUBNER SALES OPERATIONS CONSULTANT, BRADLEY CYNTHIA SALES OPERATIONS CONSULTANT Unavailable [email or web address] LEUBNER SALES OPERATIONS CONSULTANT, BRADLEY CYNTHIA SALES OPERATIONS CONSULTANT Unavailable [email or web address] LEUBNER SALES OPERATIONS CONSULTANT, BRADLEY CYNTHIA SALES OPERATIONS CONSULTANT Unavailable [email or web address] LEUBNER SALES OPERATIONS CONSULTANT, BRADLEY CYNTHIA SALES OPERATIONS CONSULTANT Unavailable [email or web address] LEUBNER SALES OPERATIONS CONSULTANT, BRADLEY CYNTHIA SALES OPERATIONS CONSULTANT Unavailable [email or web address] LEUBNER SALES OPERATIONS CONSULTANT, BRADLEY CYNTHIA SALES OPERATIONS CONSULTANT Unavailable [email or web address] LEUBNER SALES OPERATIONS CONSULTANT, BRADLEY CYNTHIA SALES OPERATIONS CONSULTANT Unavailable [email or web address] LEUBNER SALES OPERATIONS CONSULTANT, BRADLEY CYNTHIA SALES OPERATIONS CONSULTANT Unavailable [email or web address] LEUBNER SALES OPERATIONS CONSULTANT, BRADLEY CYNTHIA SALES OPERATIONS CONSULTANT Unavailable [email or web address] LEUBNER SALES OPERATIONS CONSULTANT, BRADLEY CYNTHIA SALES OPERATIONS CONSULTANT Unavailable [email or web address] LEUBNER SALES OPERATIONS CONSULTANT, BRADLEY CYNTHIA SALES OPERATIONS CONSULTANT Unavailable [email or web address] LEUBNER SALES OPERATIONS CONSULTANT, BRADLEY CYNTHIA SALES OPERATIONS CONSULTANT Unavailable [email or web address] LEUBNER SALES OPERATIONS CONSULTANT, BRADLEY CYNTHIA SALES OPERATIONS CONSULTANT Unavailable [email or web address] LEUBNER SALES OPERATIONS CONSULTANT, BRADLEY CYNTHIA SALES OPERATIONS CONSULTANT Unavailable [email or web address] LEUBNER SALES OPERATIONS CONSULTANT, BRADLEY CYNTHIA SALES OPERATIONS CONSULTANT Unavailable [email or web address] LEUBNER SALES OPERATIONS CONSULTANT, BRADLEY CYNTHIA SALES OPERATIONS CONSULTANT Unavailable [email or web address] LEUBNER SALES OPERATIONS CONSULTANT, BRADLEY CYNTHIA SALES OPERATIONS CONSULTANT Unavailable [email or web address] LEUBNER SALES OPERATIONS CONSULTANT, BRADLEY CYNTHIA SALES OPERATIONS CONSULTANT Unavailable [email or web address] LEUBNER SALES OPERATIONS CONSULTANT, BRADLEY CYNTHIA SALES OPERATIONS CONSULTANT Unavailable [email or web address] LEUBNER SALES OPERATIONS CONSULTANT, BRADLEY CYNTHIA SALES OPERATIONS CONSULTANT Unavailable [email or web address] Brenda Greene MD Unavailable [...] Unavailable Unavailable Brenda Greene MD Unavailable Unavailable Bredna Greene MD Unavailable Unavailable Brenda Greene MD [...] PASNICIUC, Denise CASTRO MD Unavailable Unavailable PASNICIUC, Denies CASTRO MD Unavailable Unavailable PASNICIUC, Denise CASTRO MD Unavailable Unavailable PASNICIUC, Denise CASTRO MD Unavailable Unavailable PASNICIUC, Denise CASTRO MD Unavailable Unavailable PASNICIUC, Denise CASTRO MD Unavailable Unavailable PASNICIUC, Denise CASTRO MD Unavailable Unavailable PASNICIUC, Denise CASTRO MD Unavailable Unavailable PASNICIUC, Denise CASTRO MD Unavailable Unavailable PASNICISANDEEP, Denise CASTRO MD Unavailable Unavailable Rosa Elena Infante MD [...] is protected by Article 27-F of the [facility] Public Health law. If you continue you may have access to information: Regarding HIV / AIDS; Provided by facilities licensed or operated by the [facility] Office of Mental Health; or Provided by the [facility] Office for People With Developmental Disabilities. If such information is present, then the following [facility] mandated warning applies: This information has [...] law may result in a fine or retirement sentence or both. A general authorization for the release of medical or other information is NOT sufficient authorization for further disc losure. Allergies and Adverse Reactions Type Description Substance Reaction Status Data Source(s ) Propensity to adverse reactions NO KNOWN ALLERGIES NO KNOWN ALLERGIES [facility] Family History Family Member Name Family Member Gender Family Member Status Date o f Status Description Data Source(s) Unknown Unknown Problem [facility] ([facility], ) Unknown Female Problem [facility] ([facility]) Encounters Encounter Providers Location Date Indications Data Source(s ) Outpatient Attender: Georgi Greene MD 03/30/2021 12:00:[address] [facility] Outpatient Attender: RUSTAM CHRISTENSEN MD 03/01/2021 12:00:00 A M [facility] Outpatient Attender: KYLE ChicasA-RONCACTR 02/16/2021 11 :26:47 AM [facility] Outpatient Attender: KYLE PADRON MDReferrer: Fabian Valladares dd, MD 02/15/2021 12:00:00 AM EDT follow up [facility] follow up [place] [address] [facility] [address] 02/14/2021 12:00:00 AM EDT [facility] Outpatient Attender: GLORIA BEYER MD [id number] 12:00:00 AM [facility] Unknown [address] [facility] [address] 02/03/2021 12:00:00 AM EDT [facility]CW[facility] [place] [address] [facility] [address] 02/02/2021 12:00:00 AM EDT eCW1 ([facility]) Outpatient Attender: RUSTAM CHRISTENSEN MD [id number] 2020 12:00:00 AM EDT - 02/01/2021 04:35:04 PM EDT Malignant neoplasm of prostate [facility] Malignant neoplasm of prostate [place] [address] [facility] [address] 01/27/2021 12:00:00 AM EDT eCW1 ([facility]) [place] [address] [facility] [address] 01/26/2021 12:00:00 AM EDT eCW1 ([facility]) Outpatient Attender: KYLE PADRON MD 01/26/2021 12:00:00 AM [facility] Outpatient Attender: KYLE PADRON MD 01/25/2021 12:00:00 AM [facility] Outpatient 01/25/2021 12:00:00 AM [facility] Outpatient Attender: KYLE PADRON MD 01/25/2021 12:00:00 AM [facility] Outpatient 01/25/2021 12:00:00 AM [facility] [place] [address] [facility] [address] 01/20/2021 12:00:00 AM EDT eCW1 ([facility]) Outpatient 01/20/2021 12:00:00 AM [facility] Outpatient Attender: KYLE PADRON MD 01/20/2021 12:00:00 AM [facility] Outpatient 01/19/2021 12:00:00 AM [facility] Outpatient Attender: Re McleanReferrer: Georgi Cuba -RONCACTR 01/18/2021 12:00:00 AM EDT - 01/18/2021 04:02:51 PM EDT on [facility] on treat Outpatient 01/18/2021 12:00:00 AM [facility] Outpatient Attender: Re Mclean 01/18/2021 12:00:00 AM [facility] Outpatient Attender: RUSTAM CHRISTENSEN MD 01/18/2021 12:00:00 A M [facility] Inpatient Attender: Debbi Amaro MDReferrer: Debbi Amaro MD 01/13/2021 12:00:00 AM [facility] Inpatient Attender: Debbi Gutiérrez itter: Debbi Amaro MDReferrer: Debbi Amaro MD 01/12/2021 08:12:49 AM [facility] Outpatient Attender: KYLE PADRON MD A-RONCACTR 12/29 12:00:00 AM EDT - 01/12/2021 02:53:08 PM [facility] Inpatient Attender: Vin Rico nder: Debbi Amaro MDAdmitter: Vin TorresReferrer: Debbi Amaro MD [id number]-[id number] 01/11/2021 12:00:00 AM EDT - 01/17/2021 06:39:00 PM [facility] Patient discharged. Outpatient Attender: RUSTAM KEATINGeferrer: CYNTHIA ORTIZ NP 07A-ONCCACTR 01/11/2021 12:00:00 AM EDT - 01/11/2021 02:44:31 PM [facility] Outpatient 01/11/2021 12:00:00 AM [facility] Outpatient Attender: KYLE PADRON MD 01/11/2021 12:00:00 AM [facility] Outpatient 01/11/2021 12:00:00 AM [facility] Outpatient Attender: KYLE PADRON MD 01/11/2021 12:00:00 AM [facility] Outpatient Attender: KYLE PADRON MDReferrer: Georgi hernandez MD 12/31/2020 12:00:00 AM [facility] Outpatient Attender: KYLE PADRON MDReferrer: Georgi hernandez MD 07A-RONCACTR 12/28/2020 12:00:00 AM EDT - 12/28/2020 04:41:31 PM [facility] Unknown [address] [facility] [address] 12/23/2020 12:00:00 AM EDT [facility] ([facility]) Outpatient Attender: Georgi Stapleserrer: Fabian Infante MD A-XXHAURO 12/22/2020 12:00:00 AM EDT - 12/22/2020 12:18:33 PM [facility] Outpatient 12/21/2020 12:00:00 AM [facility] Outpatient Attender: CHAYITO BOOKER 12/20/2020 12:00:00 AM [facility] Outpatient Referrer: CYNTHIA ORTIZ NP 12/14/2020 12: 17:10 PM EDT Lower abdominal pain, unspecified [facility] Lower abdominal pain, unspecified Outpatient Attender: CYNTHIA ORTIZ NP 07A-ONCCACTR 12/14 12:00:00 AM EDT - 12/14/2020 03:59:07 PM [facility] Outpatient Attender: CYNTHIA ORTIZ NP 12/14/2020 12:00:00 AM [facility] Outpatient Attender: Georgi Sibley: Fabian Infante MD 07A-XXHAURO 12/01/2020 12:00:00 AM EDT - 12/01/2020 03:42:02 PM [facility] Outpatient Attender: GLORIA BEYER MD [id number] 12:00:00 AM [facility] Outpatient Attender: RUSTAM Mcdonough-ONCCACTR 2020 12:00:00 AM EDT - 11/23/2020 03:46:02 PM [facility] Outpatient Referrer: RUSTAM CHRISTENSEN MD 11/22/2020 12:0 0:00 AM EDT Malignant neoplasm of prostate [facility] Malignant neoplasm of prostate Outpatient Attender: RUSTAM CHRISTENSEN MD 11/19/2020 12:00:00 A M [facility] Unknown [address] [facility] [address] 11/18/2020 12:00:00 AM EDT [facility]CW[facility] [place] [address] [facility] [address] 11/17/2020 12:00:00 AM EDT eCW1 ([facility]) Outpatient Attender: RUSTAM Mcdonough-ONCCACTR 2020 12:00:00 AM EDT - 11/16/2020 04:31:42 PM [facility] Outpatient Referrer: RUSTAM CHRISTENSEN MD 11/16/2020 12:0 0:00 AM EDT Malignant neoplasm of [facility] Malignant neoplasm of prostate Outpatient Attender: RUSTAM CHRISTENSEN MD 11/16/2020 12:00:00 A M [facility] Outpatient Referrer: RUSTAM CHRISTENSEN MD 11/16/2020 12:00:00 A M [facility] Outpatient Attender: GLORIA BEYER MD 11/16/2020 12:00: 00 AM [facility] Outpatient Referrer: RUSTAM CHRISTENSEN MD 11/15/2020 12:00:00 A M [facility] Unknown [address] [facility] [address] 11/10/2020 12:00:00 AM EDT [facility] [address] [facility] [address] 11/08/2020 12:00:00 AM EDT [facility] [address] [facility] [address] 11/05/2020 12:00:00 AM EDT eCW1 ([facility]) Outpatient Attender: KAMALA ARCHER MD 11/03/2020 12:00:00 AM [facility] Outpatient [address] [facility] [address] 10/20/2020 12:00:00 AM EDT eCW1 [facility] Unknown [address] [facility] [address] 10/20/2020 12:00:00 AM EDT eCW1 ([facility]) Outpatient Attender: RUSTAM CHRISTENSEN MD 07A-ONCCACTR 2020 12:00:00 AM EDT - 10/19/2020 03:28:21 PM [facility] Unknown [address] [facility] [address] 10/19/2020 12:00:00 AM EDT eCW1 ([facility]) Unknown [address] [facility] [place] [address] 10/19/2020 12:00:00 AM EDT eCW1 [facility] Unknown [address] [facility] [address] 10/11/2020 12:00:00 AM EDT eCW1 ([facility]) Outpatient Referrer: CYNTHIA ORTIZ NP 10/05 12:00:00 AM EDT - 10/05/2020 11:59:00 PM [facility] Outpatient Referrer: CYNTHIA ORTIZ NP 10/05/2020 12: 00:00 AM EDT Malignant neoplasm of prostate [facility] Malignant neoplasm of prostate Outpatient Referrer: CYNTHIA ORTIZ NP 09/16/2020 12:00:00 AM [facility] Outpatient Referrer: CYNTHIA ORTIZ NP 09/16/2020 12:00:00 AM [facility] Outpatient Referrer: CYNTHIA ORTIZ NP 09/02/2020 12:00:00 AM [facility] Outpatient Referrer: CYNTHIA ORTIZ NP 09/02/2020 12:00:00 AM [facility] Unknown [address] [facility] [address] 08/24/2020 12:00:00 AM EDT eCW1 ([facility]) Outpatient Attender: RUSTAM ChicasA-ONCCACTR 2020 12:00:00 AM EDT - 08/20/2020 12:16:21 PM EDT Malignant neoplasm of prostate [facility] Malignant neoplasm of prostate Outpatient Attender: GLORIA Mcdonough-MLTCACTR 12:00:00 AM EDT - 08/17/2020 02:04:10 PM EDT Encounter for palliative care [facility] Encounter for palliative care Unknown [address] [facility] [address] 08/13/2020 12:00:00 AM EDT eCW1 ([facility]) Outpatient Referrer: CYNTHIA ORTIZ NP 08/10/2020 12:00:00 AM [facility] Outpatient Referrer: CYNTHIA ORTIZ NP 08/10/2020 12:00:00 AM [facility] Outpatient Referrer: CYNTHIA ORTIZ NP 08/06/2020 12:00:00 AM [facility] Outpatient Referrer: CYNTHIA ORTIZ NP 08/06/2020 12:00:00 AM [facility] Outpatient [address] [facility] [address] 07/19/2020 12:00:00 AM EDT eCW1 ([facility]) Unknown [address] [facility] [address] 07/02/2020 12:00:00 AM EST eCW1 ([facility]) Outpatient Attender: GLORIA ChicasA-MLTCACTR 12:00:00 AM EST - 06/02/2020 08:23:27 AM EST Encounter for palliative care [facility] Encounter for palliative care Outpatient Attender: GLORIA BEYER MD 06/01/2020 12:00: [address] [facility] Outpatient Attender: GLORIA BEYER MD 05/26/2020 12:00: [address] [facility] Outpatient Attender: RUSTAM CHRISTENSEN MD 07A-ONCCACTR 2020 12:00:00 AM EST - 05/21/2020 11:28:05 AM EST Malignant neoplasm of prostate [facility] Malignant neoplasm of prostate Outpatient Attender: RUSTAM CHRISTENSEN MD 05/21/2020 12:00:[address] [facility] Unknown [address] [facility] [place] [address] 05/18/2020 12:00:00 AM EST eCW1 ([facility]) Unknown [address] [facility] [address] 05/06/2020 12:00:00 AM EST eCW1 ([facility]) Unknown [address] [facility] [address] 04/26/2020 12:00:00 AM EST eCW1 ([facility]) Unknown [address] [facility] [place] [address] 04/15/2020 12:00:00 AM EST eCW1 ([facility]) Unknown [address] [facility] [place] [address] 04/09/2020 12:00:00 AM EST eCW1 ([facility]) Unknown [address] [facility] [address] 03/24/2020 12:00:00 AM EST eCW1 ([facility]) Unknown [address] [facility] [address] 03/10/2020 12:00:00 AM EST eCW1 ([facility]) [place] [address] [facility] [place] [address] 03/09/2020 12:00:00 AM EST eCW1 ([facility]) Outpatient [address] [facility] [place] [address] 03/08/2020 12:00:00 AM EST eCW1 ([facility]) Outpatient Attender: GLROIA ChicasA-MLTCACTR 12:00:00 AM EDT - 02/25/2020 03:17:34 PM EDT Malignant neoplasm of prostate [facility] Malignant neoplasm of prostate Outpatient Attender: CYNTHIA ORTIZ NP 07A-ONCCACTR 02/18 12:00:00 AM EDT - 02/19/2020 03:53:47 PM EDT Malignant neoplasm of prostate [facility] Malignant neoplasm of prostate [place] [address] [facility] [place] [address] 02/11/2020 12:00:00 AM EDT eC ([facility]) Outpatient Attender: CYNTHIA ORTIZ NPAttender: RUSTAM CHRISTENSEN MD 02/06/2020 12:00:00 AM [facility] Outpatient Attender: GLORIA BEYER MD 02/04/2020 12:00: 00 AM [facility] Medications Medication Brand Name Start Date Product [...] NOSE DAILY FOR 7 DAYS SOLD: 01/18/2021 [facility] Folic Acid 1 MG Oral Tablet Folic Acid 1 MG Oral Table t (FOLVITE) Folic Acid 1 MG Oral Tablet (FOLVITE) 01/18/2021 12:00:00 AM EDT 1 mg Oral active Take 1 tablet by mouth daily [facility] 324 mg (38 mg iron) 01/18/2021 12:00:00 AM EDT tablet 15 TAKE ONE TABLET BY MOUTH EVERY OTHER DAY TAKE ONE TABLET BY MOUTH EVERY OTHER DAY SOLD: 01/18/2021 [employer] magnesium sulfate in dextrose 5 % infusion (premix) 1 g 0409 -[id number] 01/17/2021 06:00:00 AM EDT 1 g Intravenous completed 1 g, Intravenous, Administer over 60 Minutes, Once, On Sun01/17/21 at 0600, For [address] [facility] Medication administered onsite salmon calcitonin 200 UNT/ML Injectable Solution Calcitonin ([place]) 200 UNIT/ML Injection Solution (MIACALCIN) Calcitonin ([place]) 200 UNIT/ML Injectio n Solution (MIACALCIN) 01/17/2021 12:00:00 AM EDT 200 U Subcutaneous aborted Inject 1 mL into the skin daily for [address] [facility] salmon calcitonin 200 UNT/ML Injectable Solution Calcitonin ([place]) 200 UNIT/ML Injection Solution (MIACALCIN) Calcitonin ([place]) 200 UNIT/ML Injectio n Solution (MIACALCIN) 01/17/2021 12:00:00 AM EDT 200 U Subcutaneous aborted Inject 1 mL into the skin daily for [address] [facility] salmon calcitonin 200 UNT/ACTUAT Nasal S pray Calcitonin ([place]) 200 UNIT/ACT Nasal Solution (MIACALCIN) Calcitonin ([place]) 200 UNIT/ACT Nasal S olution (MIACALCIN) 01/17/2021 12:00:00 AM EDT 1 {spray} Nasal abo rted 1 spray by Nasal route daily for [address] [facility] salmon calcitonin 200 UNT/ACTUAT Nasal S pray Calcitonin ([place]) 200 UNIT/ACT Nasal Solution (MIACALCIN) Calcitonin ([place]) 200 UNIT/ACT Nasal S olution (MIACALCIN) 01/17/2021 12:00:00 AM EDT 1 {spray} Nasal act dunia 1 spray by Nasal route daily for [address] [facility] ferrous gluconate 324 MG Oral Tablet Leobardo martin Gluconate 324 (38 Fe) MG Oral Tablet (FERGON) Ferrous Gluconate 324 (38 Fe) MG Oral Tablet (FERGON) 01/17/2021 12:00:00 AM EDT 324 mg Oral active Take 1 tablet by mouth every other day [facility] Oxycodone Hydrochloride 15 MG Oral Table t oxyCODONE (ROXICODONE) immediate release tablet 15 mg oxyCODONE (ROXICODONE) immediate release tablet 15 mg 01/16/2021 07:57:10 AM EDT 15 mg Oral active Chron ic Pain 15 mg, Oral, Every 4 hours PRN, Moderate Pain (Pain Scale Score 4-6), Starting on 01/16/21 at 0757, For [address] [facility] Chronic Pain Medication administered onsite NaCl infusion 0.9 % 0065-0454-49 01/16/2021 07:30:00 AM EDT Intravenous completed at 150 mL/hr, Intrav enous, Continuous, Starting on 01/16/21 at 0730, For [address] [facility] Medication administered onsite salmon calcitonin 200 UNT/ML Injectable Solution calcitonin (MIACALCIN) injection 200 Units calcitonin (MIACALCIN) injection 200 Units 01/15/2021 04:30:00 PM EDT 200 U Subcutaneous completed 200 Units, Subcutaneous, Once, On 01/15/21 at 1630, For [address] [facility] Medication administered onsite potassium chloride (K-DUR) dissolvable tablet 40 mEq 42243-5 99-01 01/15/2021 09:00:00 AM EDT 40 meq Oral completed 40 mEq, Oral, 2 Times Daily, First dose (after last reorder) on 01/15/21 at 0900, For 3 doses
May be dissolved in water for patients with a G-Tube or unable to swallow. If concern for clogging G-Tube, may contact Pharmacy to switch formulation to a powder packet.
[facility] Medication administered onsite 50 ML Magnesium Sulfate 40 MG/ML Injecti on magnesium sulfate infusion 2 g/50 mL (premix) magnesium sulfate infusion 2 g/50 mL (premix) 01/16/20 07:30:00 AM EDT 2 g Intravenous completed 2 g, Intravenous, Administer over 60 Minutes, Once, On Sun01/15/21 at 0730, For [address] [facility] Medication administered onsite chlorhexidine gluconate 1.2 MG/ML Mouthw jacqueline chlorhexidine (PERIDEX) 0.12 % solution 15 mL chlorhexidine (PERIDEX) 0.12 % solution 15 mL 01/15/20 09:00:00 PM EDT 15 mL Mouth/Throat active 15 mL, Mouth/Throat, 2 Times Daily, First dose on Sun01/14/21 at 2100, For 30 days
Do not swallow.
[facility] Medication administered onsite Baclofen 10 MG Oral Tablet baclofen (LIORESAL) tablet 10 mg baclofen (LIORESAL) tablet 10 mg 01/14/2021 05:00:00 PM EDT 10 mg Oral activ e 10 mg, Oral, Three Times Daily Standard, First dose on Sun01/14/21 at 1700, For [address] [facility] Medication administered onsite salmon calcitonin 200 UNT/ML Injectable Solution calcitonin (MIACALCIN) injection 200 Units calcitonin (MIACALCIN) injection 200 Units 01/14/2021 04:30:00 PM EDT 200 U Subcutaneous completed 200 Units, Subcutaneous, Once, On Sun01/14/21 at 1630, For [address] [facility] Medication administered onsite Oxycodone Hydrochloride 15 MG Oral Table t oxyCODONE (ROXICODONE) immediate release tablet 15 mg oxyCODONE (ROXICODONE) immediate release tablet 15 mg 01/14/2021 11:43:06 AM EDT 15 mg Oral active Chron ic Pain 15 mg, Oral, Every 4 hours PRN, Moderate Pain (Pain Scale Score 4-6), Starting on Sun01/14/21 at 1143, For [address] [facility] Chronic Pain Medication administered onsite Aspirin 81 MG Chewable Tablet aspirin chewable tablet 81 mg aspirin chewable tablet 81 mg 01/14/2021 09:00:00 AM EDT 81 mg Oral activ e 81 mg, Oral, Daily Standard, First dose (after last reorder) on 9/17/21 at 0900, For [address] [facility] Medication administered onsite potassium chloride (K-DUR) dissolvable tablet 40 mEq 81886-0 99-01 01/14/2021 07:30:00 AM EDT 40 meq Oral completed 40 mEq, Oral, Once, On Sun01/14/21 at 0730, For 1 dose
May be dissolved in water for patients with a G- Tube or unable to swallow. If concern for clogging G-Tube, may contact Pharmacy to switch formulation to a powder packet.
[facility] Medication administered onsite NaCl infusion 0.9 % 8497-9828-40 01/14/2021 07:30:00 AM EDT Intravenous aborted at 150 mL/hr, Intrav enous, Continuous, Starting on Sun01/14/21 at 0730, For [address] [facility] Medication administered onsite alteplase (CATHFLO) injection 2 mg [id number] 01/14/2021 12:00:00 AM EDT 2 mg Intracatheter completed 2 mg, Intra catheter, Once, On Sun01/14/21 at 0000, For 1 dose
To be instilled by PICC team or IR nurse only for at least [address]
[facility] Medication administered onsite potassium phosphate infusion 6 mmol/100 mL (premix) 01/13/2021 02:15:00 PM EDT 6 mmol Intravenous completed 6 mmol, Intravenous, at 25 mL/hr, Once, On Neha 01/13/21 at 1415, For 1 dose
Slower infusion rates (e.g. over 4 hours) are recommended in patients with renal impairment and/or less severe hypophosphatemia. Product contains 8.8 mEq of potassium.
[facility] Medication administered onsite 50 ML Magnesium Sulfate 40 MG/ML Injecti on magnesium sulfate infusion 2 g/50 mL (premix) magnesium sulfate infusion 2 g/50 mL (premix) 01/14/20 02:15:00 PM EDT 2 g Intravenous completed 2 g, Intravenous, Administer over 60 Minutes, Once, On [place]ha 01/13/21 at 1415, For [address] [facility] Medication administered onsite 2 ML Midazolam 1 MG/ML Injection midazolam (PF) (VERSE D) injection midazolam (PF) (VERSED) injection 01/13/2021 02:10:15 PM EDT completed Once PRN, Starting on Neha 01/13/[address] [facility] Medication administered onsite fentaNYL (SUBLIMAZE) (PF) injection [id number] 01/13/2021 02:10:01 PM EDT completed Once PRN, Starting on Neha 01/13/[address] [facility] Medication administered onsite sodium bicarbonate 8.4 % 8 mL in lidocaine (XYLOCAINE) 2 % 2 mL injection 01/13/2021 02:08:44 PM EDT completed Once PRN, Starting on Neha 01/13/[address] [facility] Medication administered onsite Folic Acid 1 MG Oral Tablet folic acid (FOLVITE) table t 1 mg folic acid (FOLVITE) tablet 1 mg 01/13/2021 01:45:00 PM EDT 1 mg Oral active 1 mg, Oral, Daily Standard, First dose on Neha 01/13/21 at 1345, For [address] [facility] Medication administered onsite Piperacillin 3000 MG [...] piperacillin-tazobactam is compatible with Lactated Ringers.
[facility] Medication administered onsite potassium chloride (K-DUR) dissolvable tablet 40 mEq [id number] 01/13/2021 07:45:00 AM EDT 40 meq Oral completed 40 mEq, Oral, Once, On Neha 01/13/21 at 0745, For 1 dose
May be dissolved in water for patients with a G- Tube or unable to swallow. If concern for clogging G-Tube, may contact Pharmacy to switch formulation to a powder packet.
[facility] Medication administered onsite NaCl infusion 0.9 % 1681-5795-03 01/13/2021 07:45:00 AM EDT Intravenous aborted at 150 mL/hr, Intrav enous, Continuous, Starting on Sun01/13/21 at 0745, For [address] [facility] Medication administered onsite Oxycodone Hydrochloride 15 MG Oral Table t oxyCODONE (ROXICODONE) immediate release tablet 7.5 mg oxyCODONE (ROXICODONE) immediate release tablet 7.5 mg 01/13/2021 07:33:32 AM EDT 7.5 mg Oral aborted Chron ic Pain 7.5 mg, Oral, Every 4 hours PRN, Moderate Pain (Pain Scale Score 4-6), Starting on Sun01/13/21 at 0733, For [address] [facility] Chronic Pain Medication administered onsite potassium chloride 20 mEq in 100 mL IVPB (premix) [id number] 01/13/2021 03:00:00 AM EDT 20 meq Intravenous completed 20 mEq, Intravenous, Administer over 60 Minutes, Every 1 hour, First dose on Sun01/13/21 at 0300, For [address] [facility] Medication administered onsite salmon calcitonin 200 UNT/ML Injectable Solution calcitonin (MIACALCIN) injection 200 Units calcitonin (MIACALCIN) injection 200 Units 01/12/2021 06:45:00 PM EDT 200 U Intramuscular completed 200 Units, Intramuscular, Once, On Sun01/12/21 at 1845, For [address] [facility] Medication administered onsite NaCl infusion 0.9 % [id number] 01/12/2021 02:15:00 PM EDT Intravenous aborted at 150 mL/hr, Intrav enous, Continuous, Starting on Sun01/12/21 at 1415, For [address] [facility] Medication administered onsite NaCl infusion 0.9 % [id number] 01/12/2021 09:15:00 AM EDT Intravenous aborted at 150 mL/hr, Intrav enous, Continuous, Starting on Sun01/12/21 at 0915, For [address] [facility] Medication administered onsite Aspirin 81 MG Chewable Tablet aspirin chewable tablet 81 mg aspirin chewable tablet 81 mg 01/12/2021 09:00:00 AM EDT 81 mg Oral abort ed 81 mg, Oral, Daily Standard, First dose on Sun01/12/21 at 0900, For [address] [facility] Medication administered onsite POLYETHYLENE GLYCOL 3350 [...] to potential increased risk for aspiration.
[facility] Medication administered onsite Tamsulosin hydrochloride 0.4 MG Oral Capsule tamsulosi n (FLOMAX) capsule 0.4 mg tamsulosin (FLOMAX) capsule 0.4 mg 01/12/2021 09:00:00 AM EDT 0.4 mg Oral active 0.4 mg, Oral, Daily Standard, First dose on Sun01/12/21 at 0900, For 30 days
Swallow whole. Do not crush, chew or open.
[facility] Medication administered onsite salmon calcitonin 200 UNT/ML Injectable Solution calcitonin (MIACALCIN) injection 200 Units calcitonin (MIACALCIN) injection 200 Units 01/12/2021 08:00:00 AM EDT 200 U Intramuscular completed 200 Units, Intramuscular, Once, On Sun01/12/21 at 0800, For [address] [facility] Medication administered onsite potassium phosphate infusion 6 mmol/100 mL (premix) 01/12/2021 03:15:00 AM EDT 6 mmol Intravenous completed 6 mmol, Intravenous, at 25 mL/hr, Once, On Sun01/12/21 at 0315, For 1 dose
Slower infusion rates (e.g. over 4 hours) are recommended in patients with renal impairment and/or less severe hypophosphatemia. Product contains 8.8 mEq of potassium.
[facility] Medication administered onsite potassium chloride 20 mEq in 100 mL IVPB (premix) [id number]- [id number] 01/11/2021 09:00:00 PM EDT 20 meq Intravenous completed 20 mEq, Intravenous, Administer over 60 Minutes, Every 1 hour, First dose on Sun01/11/21 at 2100, For [address] [facility] Medication administered onsite Docusate Sodium 100 MG Oral Capsule docusate sodium (C OLACE) capsule 100 mg docusate sodium (COLACE) capsule 100 mg 01/11/2021 09:00:00 PM EDT 100 mg Oral active 100 mg, Oral, 2 Times Daily, First dose on Sun01/11/21 at 2100, For [address] [facility] Medication administered onsite gabapentin 300 MG Oral Capsule gabapentin (NEURONTIN) capsule 300 mg gabapentin (NEURONTIN) capsule 300 mg 01/11/2021 09:00:00 PM EDT 300 mg Oral active Neuropathic Pain 300 mg, Oral, Nightly, Indic ations: Neuropathic Pain, First dose (after last modification) on Sun01/11/21 at 2100, For [address] [facility] Neuropathic Pain Medication administered onsite Oxycodone Hydrochloride 15 MG Oral Table t oxyCODONE (ROXICODONE) immediate release tablet 7.5 mg oxyCODONE (ROXICODONE) immediate release tablet 7.5 mg 01/11/2021 07:44:33 PM EDT 7.5 mg Oral aborted Chron ic Pain 7.5 mg, Oral, Every 4 hours PRN, Moderate Pain (Pain Scale Score 4-6), Starting on Sun01/11/21 at 1944, For [address] [facility] Chronic Pain Medication administered onsite Piperacillin [...] tazobactam is compatible with Lactated Ringers.
[facility] Medication administered onsite NaCl infusion 0.9 % [id number] 01/11/2021 05:30:00 PM EDT Intravenous completed at 150 mL/hr, Intrav enous, Continuous, Starting on Sun01/11/21 at 1730, For [address] [facility] Medication administered onsite Acetaminophen 325 MG [...] from all sources in [address]
[facility] Medication administered onsite Carisoprodol 350 MG Oral Tablet carisoprodol (SOMA) ta blet 350 mg carisoprodol (SOMA) tablet 350 mg 01/11/2021 05:17:53 PM EDT 350 mg Oral active 350 mg, Oral, Three Times Daily-PRN, muscle spasms, Starting on Sun01/11/21 at 1717, For [address] [facility] Medication administered onsite Ondansetron 8 MG Oral Tablet ondansetron (ZOFRAN) tabl et 8 mg ondansetron (ZOFRAN) tablet 8 mg 01/11/2021 05:17:53 PM EDT 8 mg Oral active 8 mg, Oral, Every 8 hours PRN, Nausea, Vomiting, Starting on Sun01/11/21 at 1717, For [address] [facility] Medication administered onsite NaCl infusion 0.9 % [id number] 01/11/2021 02:30:00 PM EDT Intravenous completed Hypercalcemia at 125 mL/hr, Intrav enous, Once, On Sun01/11/21 at 1430, For [address] [facility] Hypercalcemia Medication administered onsite Piperacillin 3000 [...] piperacillin-tazobactam is compatible with Lactated Ringers.
[facility] Acute cystitis with hematuria Medication administered onsite salmon calcitonin 200 UNT/ML Injectable Solution calcitonin (MIACALCIN) injection 288 Units calcitonin (MIACALCIN) injection 288 Units 01/11/2021 02:15:00 PM EDT 288 U Subcutaneous completed Hypercalc emia 288 Units, Subcutaneous, Once, On Sun01/11/21 at 1430, For [address] [facility] Hypercalcemia Medication administered onsite sodium chloride 0.9 % bolus 1,000 mL [id number] 01/11/2021 12:45: 00 PM EDT 1000 mL Intravenous completed Hypercalcemia 1,00 0 mL, Intravenous, Once, On Sun01/11/21 at 1245, For [address] [facility] Hypercalcemia Medication administered onsite alteplase (CATHFLO) injection 2 mg [id number] 01/11/2021 11:00:00 AM EDT 2 mg Intracatheter completed Malignant tumor of prostate 2 mg, Intracatheter, Once, On Sun01/11/21 at 1100, For 1 dose
To be instilled by PICC team or IR nurse only for at least [address]
[facility] Malignant tumor of prostate Medication administered onsite lidocaine (XYLOCAINE) 2 % urojet 20 mL [id number] 12:00:00 PM EDT [address] [facility] Potassium Chloride 0.1 MEQ/ML Injectable Solution potassium chloride 10 mEq in 100 mL IVPB (premix) potassium chloride 10 mEq in 100 mL IVPB (premix) 12/14/2020 02:00:00 PM EDT 10 meq Intravenous completed Hypokalemia 10 mEq, Intravenous, Administer over 60 Minutes, Once, On Sun12/14/20 at 1400, For [address] [facility] Hypokalemia Medication administered onsite sodium chloride 0.9 % bolus 1,000 mL [id number] 12/14/2020 01:45: 00 PM EDT 1000 mL Intravenous completed Dehydration 1,000 mL, Intravenous, Once, On Sun12/14/20 at 1345, For 1 dose
Infuse over [address]
[facility] Dehydration Medication administered onsite sennosides, MCFP 8.6 MG Oral Tablet senna tablet 2 tablet sen na tablet 2 tablet 12/14/2020 01:30:00 PM EDT 2 {tbl} Oral com pleted Drug-induced constipation 2 tablet, Oral, Once, On Sun12/14/20 at 1330, For [address] [facility] Drug-induced constipation Medication administered onsite 8.6 mg 12/14/2020 12:00:00 AM EDT tablet 30 TAKE ONE TABLET BY MOUTH ONCE DAILY TAKE ONE TABLET BY MOUTH ONCE DAILY SOLD: 12/14/2020 [facility] sennosides, MCFP 8.6 MG Oral Tablet SM Senna Laxative 8 .6 MG Oral Tablet SM Senna Laxative 8.6 MG Oral Tablet 12/14/2020 12:00:00 AM EDT 1 {tbl} Oral active Take 1 tablet by mouth daily [facility] 17 gram/dose 12/14/2020 12:00:00 AM EDT powder 510 MIX 17 GRAMS IN 4-8 OUNCES OF LIQUID AND DRINK ONCE DAILY MIX 17 GRAMS IN 4-8 OUNCES OF LIQUID AND DRINK ONCE DAILY SOLD: 12/14/2020 [facility] POLYETHYLENE GLYCOL 3350 142 MG/ML Oral Solution PEG 3350 17 GM/SCOOP Oral Powder (MIRALAX) PEG 3350 17 GM/SCOOP Oral Powder (MIRALAX) 12/14/2020 12:00:00 AM EDT 17 g Oral active Drug-induced constipatio n Take [address] [facility] Drug-induced constipation Docusate Sodium 50 MG / sennosides, MCFP 8.6 MG Oral Tablet Senna-Docusate Sodium 8.6-50 MG Oral Tablet (SENOKOT-S) Senna-Docusate Sodium 8.6-50 MG Oral Tab let (SENOKOT-S) 12/14/2020 12:00:00 AM EDT 1 {tbl} Oral a ctive Drug-induced constipation Take 1 tablet by mouth daily [facility] Drug-induced constipation 10 gram/15 mL 12/14/2020 12:00:00 AM EDT solution 240 TAKE 30MLS BY MOUTH THREE TIMES A DAY FOR 3 DAYS TAKE 30MLS BY MOUTH THREE TIMES A DAY FOR 3 DAYS SOLD: 12/14/2020 [facility] Lactulose 667 MG/ML Oral Solution Lactul ose 10 GM/15ML Oral Solution (CHRONULAC) Lactulose 10 GM/15ML Oral Solution (CHRONULAC) 12/14/2020 12:00: 00 AM EDT 20 g Oral active Drug-induced constipation Take 30 mLs by mouth Three times daily for [address] [facility] Drug-induced constipation 15 mg 12/11/2020 12:00:00 [...] Dose: 90 mg Indications: Chronic Pain [facility] Chronic Pain Self-Cath Coude Tip 71632-858-02 11/29/2020 12:00:00 AM EDT active Use as directed. DAILY [facility] 1.5 ML Leuprolide Acetate 15 MG/ML Prefi lled Syringe leuprolide acetate (LUPRON) injection 22.5 mg leuprolide acetate (LUPRON) injection 22.5 mg 11/24/19 11:30:00 AM EDT 22.5 mg Intramuscular completed 22.5 mg, Intramuscular, Once, On Sun11/23/20 at 1130, For 1 dose
FOR IM USE ONLY
[facility] Medication administered onsite Cabazitaxel (JEVTANA) 51 [...] Administer through a 0.22 micron filter.
[facility] Prostate cancer metastatic to bone Medication administered onsite Diphenhydramine Hydrochloride 25 MG Oral Capsule diphenhydrAMINE (BENADRYL) capsule 25 mg diphenhydrAMINE (BENADRYL) capsule 25 mg 11/23/2020 10 :30:00 AM EDT 25 mg Oral completed Prostate cancer metast atic to bone 25 mg, Oral, Once, On Sun11/23/20 at 1030, For 1 dose
Give prior to chemotherapy.
[facility] Prostate cancer metastatic to bone Medication administered onsite Famotidine 20 MG Oral Tablet famotidine (PEPCID) table t 20 mg famotidine (PEPCID) tablet 20 mg 11/23/2020 10:30:00 AM EDT 20 mg Oral completed Prostate cancer metastatic to bone 20 mg, Oral, Once, On Sun11/23/20 at 1030, For [address] [facility] Prostate cancer metastatic to bone Medication administered onsite Ondansetron 8 MG Oral Tablet ondansetron (ZOFRAN) tabl et 16 mg ondansetron (ZOFRAN) tablet 16 mg 11/23/2020 10:30:00 AM EDT 16 mg Oral completed Prostate cancer metastatic to bone 16 mg, Oral, Once, On Sun11/23/20 at 1030, For 1 dose
Give prior to chemotherapy
[facility] Prostate cancer metastatic to bone Medication administered onsite Dexamethasone 4 MG Oral Tablet dexamethasone (DECADRON ) tablet 20 mg dexamethasone (DECADRON) tablet 20 mg 11/23/2020 10:30:00 AM EDT 20 m g Oral completed Prostate cancer metastatic to bone 20 mg, Oral, Once, On Sun11/23/20 at 1030, For 1 dose
Give prior to chemotherapy.
[facility] Prostate cancer metastatic to bone Medication [...] as needed for Nausea or Vomiting [facility] Prostate cancer metastatic to bone Prednisone 10 MG Oral Tablet predniSONE 10 MG Oral Tab let (DELTASONE) predniSONE 10 MG Oral Tablet (DELTASONE) 11/23/2020 12:00:00 AM EDT 10 mg Ora l completed Prostate cancer metastatic to bone Take 1 tablet by mouth daily [facility] Prostate cancer metastatic to bone Prochlorperazine 10 MG Oral Tablet Proch lorperazine Maleate 10 MG Oral Tablet (COMPAZINE) Prochlorperazine Maleate 10 MG Oral Tablet (COMPAZINE) 11/23/2020 12:00:00 AM EDT 10 mg Oral active Prostate cancer metastatic to bone Take 1 tablet by mouth every 6 (six) hours as needed (Nausea/Vomiting) [facility] Prostate cancer metastatic to bone 10 mg 11/23/2020 12:00:00 AM EDT tablet 21 TAKE ONE TABLET BY MOUTH EVERY DAY TAKE ONE TABLET BY MOUTH EVERY DAY SOLD: 11/25/2020 [facility] 8 mg 11/23/2020 12:00:00 AM EDT tablet 20 TAKE ONE TABLET BY MOUTH EVERY 8 HOURS NEEDED FOR NAUSEA OR VOMITING TAKE ONE TABLET BY MOUTH EVERY 8 HOURS A S NEEDED FOR NAUSEA OR VOMITING SOLD: 11/25/2020 [employer] [facility] gadobutrol (GADAVIST) contrast injection 9.5 mL [id number] 11/22/2020 05:00:00 PM EDT 0.1 mL/kg Intravenous completed 9.5 mL (rounded from 9.71 mL = 0.1 mL/kg 97.1 kg), Intravenous, 1 TIME IMAGING, On Sun11/22/20 at 1700, For 1 dose, Imaging Protocol
Do not mix or administer in the same IV line with other me dications.
[facility] Medication administered onsite 15 mg 11/17/2020 12:00:00 AM EDT tablet extended release 60 TAKE ONE TABLET BY MOUTH TWICE A DAY MAXIMUM DAILY DOSE = TWO TABLETS TAKE ONE TABLET BY MOUTH TWICE A DAY MAXIMUM DAILY DOSE = TWO TABLETS SOLD: 11/17/2020 [facility] Morphine Sulfate 15 MG Extended Release Oral Tablet Morphine Sulfate ER 15 MG Oral Tablet Extended Release (MS CONTIN) Morphine Sulfate ER 15 MG Oral Tablet Extended Release (MS CONTIN) 11/16/2020 12:00:00 AM EDT 15 mg Oral active Cancer associated painProstate cancer metastatic to bone Take 1 tablet by mouth Two Times Daily , Max Daily Dose: [address] [facility] Cancer associated pain Prostate cancer metastatic to bone Ondansetron 4 MG Disintegrating Oral Tablet ONDANSETRON 11/11/2020 12:00:00 AM EDT tablet,disintegrating 30 DISSOLVE O NE TABLET ON TONGUE EVERY 4 HOURS NEEDED FOR NAUSEA DISSOLVE ONE TABLET ON TONGUE EVERY 4 HO URS NEEDED FOR NAUSEA SOLD: 11/12/2020 [facility] Oxycodone Hydrochloride 15 MG Oral Table t oxyCODONE HCl 15 MG Oral Tablet (ROXICODONE) oxyCODONE HCl 15 MG Oral Tablet (ROXICODONE) 12:00:00 AM EDT 15 mg Oral aborted Chronic Pain Peter e 1 tablet by mouth every 4 (four) hours as needed for PainCancer related pain, Max Daily Dose: 90 mg Indications: Chronic [facility] Chronic Pain 15 mg 11/11/2020 12:00:00 AM EDT tablet 180 TAKE ONE TABLET BY MOUTH EVERY 4 HOURS NEEDED FOR CANCER RELATED PAIN , MAXIMUM DAILY DOSE = 6 TABLETS TAKE ONE TABLET BY MOUTH EVERY 4 HOURS NEEDED FOR CANCER RELATED PAIN , MAXIMUM DAILY DOSE = 6 TABLETS SOLD: 11/12/2020 [facility] 500 mg 11/09/2020 12:00:00 AM EDT tablet 14 TAKE ONE TABLET BY MOUTH TWICE A DAY TAKE ONE TABLET BY MOUTH TWICE A DAY SOLD: 11/09/2020 [employer] [facility] Ciprofloxacin 500 MG Oral Tablet [Cipro] Cipro 500 MG Cipro 500 MG 11/08/2020 12:00:00 AM EDT 1.0 {tablet} active Ci pro 500 MG eCW1 ([facility]) 0.05 % 10/24/2020 12:00:00 AM EDT ointment 30 APPLY TO AFFECTED AREA(S) TWO TIMES A DAY IF RASH RECURS ON BODY, DO NOT APPLY TO FACE, GROIN, OR ARMPITS APPLY TO AFFECTED AREA(S) TWO TIMES A DAY IF RASH RECURS ON BODY, DO NOT APPLY TO FACE, GROIN, OR ARMPITS SOLD: 11/17/2020 [facility] 0.05 % 10/24/2020 12:00:00 AM EDT ointment 30 APPLY TO AFFECTED AREA(S) TWO TIMES A DAY IF RASH RECURS ON BODY, DO NOT APPLY TO FACE, GROIN, OR ARMPITS APPLY TO AFFECTED AREA(S) TWO TIMES A DAY IF RASH RECURS ON BODY, DO NOT APPLY TO FACE, GROIN, OR ARMPITS SOLD: 10/29/2020 [facility] 350 mg 10/21/2020 [...] {tablet} active Ci pro 500 MG eCW1 ([facility]) Ciprofloxacin 500 MG Oral Tablet [Cipro] Cipro 500 MG Cipro 500 MG 10/20/2020 12:00:00 AM EDT 1.0 {tablet} active Ci pro 500 MG eCW1 ([facility]) Ciprofloxacin 500 MG Oral Tablet [Cipro] Cipro 500 MG Cipro 500 MG 10/20/2020 12:00:00 AM EDT 1.0 {tablet} active Ci pro 500 MG eCW1 ([facility]) 500 mg 10/20/2020 12:00:00 AM EDT tablet 14 TAKE ONE TABLET BY MOUTH EVERY 12 HOURS FOR 7 DAYS TAKE ONE TABLET BY MOUTH EVERY 12 HOURS FOR 7 DAYS TEE [facility] Ciprofloxacin 500 MG Oral Tablet [Cipro] Cipro 500 MG Cipro 500 MG 10/20/2020 12:00:00 AM EDT 1.0 {tablet} active Ci pro 500 MG eCW1 ([facility]) 300 mg 10/13/2020 12:00:00 AM EDT capsule [...] DAILY DOSE = SIX TABLETS SOLD: 10/11/2020 [facility] Oxycodone Hydrochloride 15 MG Oral Table t oxyCODONE HCl 15 MG Oral Tablet (ROXICODONE) oxyCODONE HCl 15 MG Oral Tablet (ROXICODONE) 12:00:00 AM EDT 15 mg Oral aborted Chronic Pain Peter e 1 tablet by mouth every 4 (four) hours as needed for PainCancer related pain, Max Daily Dose: 90 mg Indications: Chronic Pain [facility] Chronic Pain TC-99M medronate (Tc-MDP) [id number] 10/05/2020 10:45:00 AM EDT Intravenous completed Intravenous, Once, On Sun10/05/20 at 1045, For 1 dose, Imaging Protocol [facility] Medication administered onsite 15 mg 09/10/2020 12:00:00 AM EDT tablet 180 TAKE ONE TABLET BY MOUTH EVERY 4 HOURS NEEDED FOR PAIN , MAXIMUM DAILY DOSE = 6 TABLETS TAKE ONE TABLET BY MOUTH EVERY 4 HOURS NEEDED FOR PAIN , MAXIMUM DAILY DOSE = 6 TABLETS SOLD: 09/13/2020 [facility] Oxycodone Hydrochloride 15 MG Oral Table t oxyCODONE HCl 15 MG Oral Tablet (ROXICODONE) oxyCODONE HCl 15 MG Oral Tablet (ROXICODONE) 12:00:00 AM EDT 15 mg Oral active Chronic Pain Peter e 1 tablet by mouth every 4 (four) hours as needed for PainCancer related pain, Max Daily Dose: 90 mg Indications: Chronic Pain [facility] Chronic Pain 1.5 ML Leuprolide Acetate 15 MG/ML Prefi lled Syringe leuprolide acetate (LUPRON) injection 22.5 mg leuprolide acetate (LUPRON) injection 22.5 mg 08/21/19 11:45:00 AM EDT 22.5 mg Intramuscular completed 22.5 mg, Intramuscular, Once, On Sun08/20/20 at 1145, For 1 dose
FOR IM USE ONLY
[facility] Medication administered onsite Oxycodone Hydrochloride 15 MG Oral Table t oxyCODONE HCl 15 MG Oral Tablet (ROXICODONE) oxyCODONE HCl 15 MG Oral Tablet (ROXICODONE) 12:00:00 AM EDT 15 mg Oral active Chronic Pain Peter e 1 tablet by mouth every 4 (four) hours as needed for PainCancer related pain, Max Daily Dose: 90 mg Indications: Chronic Pain [facility] Chronic Pain 0.12 % 08/12/2020 12:00:00 [...] 4 CAPSULES BY MOUTH EVERY DAY [facility] Primary prostate adenocarcinoma 1.5 ML Leuprolide Acetate 15 MG/ML Prefi lled Syringe leuprolide (ELIGARD) SubQ injection 22.5 mg for 3-month administration leuprolide (ELIGARD) SubQ injection 22.5 mg for 3-month administration 05/21/2020 11:00:00 AM EST 2 2.5 mg Subcutaneous completed Prostate cancer metastatic to bone 22.5 mg, Subcutaneous, Once, Sun05/21/20 at 1100, For [address] [facility] Prostate cancer metastatic to bone Medication administered onsite 15 mg 05/14/2020 12:00:00 AM EST tablet 180 TAKE ONE TABLET BY MOUTH EVERY 4 HOURS NEEDED FOR PAIN MAXIMUM DAILY DOSE = SIX TABLETS TAKE ONE TABLET BY MOUTH EVERY 4 HOURS NEEDED FOR PAIN MAXIMUM DAILY DOSE = SIX TABLETS SOLD: 05/14/2020 [facility] Oxycodone Hydrochloride 15 MG Oral Table t oxyCODONE HCl 15 MG Oral Tablet (ROXICODONE) oxyCODONE HCl 15 MG Oral Tablet (ROXICODONE) 12:00:00 AM EST 15 mg Oral active Chronic Pain Peter e 1 tablet by mouth every 4 (four) hours as needed for PainCancer related pain, Max Daily Dose: 90 mg Indications: Chronic Pain [facility] Chronic Pain 15 mg 04/13/2020 12:00:00 [...] MAXIMUM DAILY DOSE =6 TABLETS SOLD: 03/12/2020 [facility] 300 mg 03/09/2020 12:00:00 AM EST [...] EST active Gabapent in 300 MG eCW1 ([facility]) gabapentin 300 MG Oral Capsule Gabapentin 300 MG Gabapentin 300 MG 03/08/2020 12:00:00 AM EST active Gabapent in 300 MG eCW1 ([facility]) 800 mg 03/08/2020 12:00:00 AM EST tablet [...] EST active Gabapent in 300 MG eCW1 ([facility]) gabapentin 300 MG Oral Capsule Gabapentin 300 MG Gabapentin 300 MG 03/08/2020 12:00:00 AM EST active Gabapent in 300 MG eCW1 ([facility]) gabapentin 300 MG Oral Capsule Gabapentin 300 MG Gabapentin 300 MG 03/08/2020 12:00:00 AM EST active Gabapent in 300 MG eCW1 ([facility]) 0.05 % 03/08/2020 12:00:00 AM EST ointment [...] EST active Gabapent in 300 MG eCW1 ([facility]) 0.05 % 03/08/2020 12:00:00 AM EST ointment [...] EST active Gabapent in 300 MG eCW1 ([facility]) gabapentin 300 MG Oral Capsule Gabapentin 300 MG Gabapentin 300 MG 03/08/2020 12:00:00 AM EST active Gabapent in 300 MG eCW1 ([facility]) 350 mg 03/08/2020 12:00:00 AM EST tablet [...] EST active Gabapent in 300 MG eCW1 ([facility]) 350 mg 03/08/2020 12:00:00 AM EST tablet 90 TAKE ONE TABLET BY MOUTH THREE TIMES A DAY NEEDED, MAXIMUM DAILY DOSE = THREE TABLETS TAKE ONE TABLET BY MOUTH THREE TIMES A DAY NEEDED, MAXIMUM DAILY DOSE = THREE TABLETS SOLD: 05/07/2020 [facility] 1.5 ML Leuprolide Acetate 15 MG/ML Prefi lled Syringe leuprolide (ELIGARD) SubQ injection 22.5 mg for 3-month administration leuprolide (ELIGARD) SubQ injection 22.5 mg for 3-month administration 02/19/2020 03:15:00 PM EDT 2 2.5 mg Subcutaneous completed Primary prostate adenocarcinoma 22.5 mg, Subcutaneous, Once, [facility] 02/19/20 at 1515, For [address] [facility] Primary prostate adenocarcinoma Medication administered onsite 15 mg 02/12/2020 12:00:00 AM EDT tablet 180 TAKE ONE TABLET BY MOUTH EVERY 4 HOURS NEEDED FOR PAIN, MAXIMUM DAILY DOSE = SIX TABLETS TAKE ONE TABLET BY MOUTH EVERY 4 HOURS NEEDED FOR PAIN, MAXIMUM DAILY DOSE = SIX TABLETS SOLD: 02/12/2020 [facility] Oxycodone Hydrochloride 15 MG Oral Table t oxyCODONE HCl 15 MG Oral Tablet (ROXICODONE) oxyCODONE HCl 15 MG Oral Tablet (ROXICODONE) 0 12:00:00 AM EDT 15 mg Oral active Chronic Pain Peter e 1 tablet by mouth every 4 (four) hours as needed for Pain, Max Daily Dose: 90 mg Indications: Chronic Pain [facility] Chronic Pain 0.12 % 02/11/2020 12:00:00 [...] DAILY DOSE = THREE TABLETS SOLD: 01/09/2020 [facility] 800 mg 05/09/2019 12:00:00 AM [...] DO NOT CRUSH BREAK OR CHEW [facility] Catheters (BARD COUDE TIP CATHETER) [facility] [id number] 12:00:00 AM EDT aborted Use as directed. Use as directed [address] [facility] irbesartan 300 MG Oral Tablet irbesartan (AVAPRO) 300 MG tablet irbesartan (AVAPRO) 300 MG tablet 10/15/2018 12:00:00 AM EDT 300 mg Oral aborted Take [address] [facility] Losartan Potassium 50 MG Oral Tablet losartan (COZAAR) 50 MG tablet losartan (COZAAR) 50 MG tablet 01/17/2018 12:00:00 AM EDT 50 mg Oral aborted Take 50 [address] mouth [address] [facility] atorvastatin 20 MG Oral Tablet atorvastatin (LIPITOR) 20 MG tablet atorvastatin (LIPITOR) 20 MG tablet 01/07/2018 12:00:00 AM EDT 20 mg Oral aborted Take [address] mouth [address] [facility] Amlodipine 10 MG Oral Tablet amlodipine (NORVASC) 10 M G tablet amlodipine (NORVASC) 10 MG tablet 09/17/2017 12:00:00 AM EDT 10 mg Oral aborted Take [address] mouth [address] [facility] 12 HR Orphenadrine Citrate 100 MG Extend ed Release Oral Tablet orphenadrine (NORFLEX) 100 MG tablet orphenadrine (NORFLEX) 100 MG tablet 09/14/2017 12:00: 00 AM EDT 100 mg Oral aborted Osteoarthr itis of cervical spine, unspecified spinal osteoarthritis complication status Take 1 table t by mouth Two times daily as needed for Muscle spasms for up to [address] [facility] Osteoarthritis of cervical spine, unspec ified spinal osteoarthritis complication status Losartan Potassium 25 MG Oral Tablet losartan (COZAAR) 25 MG tablet losartan (COZAAR) 25 MG tablet 25 mg Oral aborted Ta ke 25 mg [address] mouth [address] [facility] Diclofenac Sodium 50 MG Delayed Release Oral Tablet diclofenac (VOLTAREN) 50 MG EC tablet diclofenac (VOLTAREN) 50 MG EC tablet 50 mg Oral aborted Take 50 mg by mouth Two Times Daily [facility] Leuprolide Acetate (LUPRON DEPOT IM) Intramuscular aborted Inject into the muscle every 3 (three) months [facility] Ascorbic Acid (VITAMIN C PO) Oral aborted Take by mouth. [facility] Calcium Carbonate 1500 MG Oral Tablet calcium carbonat e (OS-EDWIN) 600 MG TABS calcium carbonate (OS-EDWIN) 600 MG TABS 600 mg Oral aborted Take [address] [facility] Losartan Potassium 25 MG Oral Tablet losartan (COZAAR) 25 MG tablet losartan (COZAAR) 25 MG tablet 25 mg Oral aborted Ta ke [address] [facility] Insurance Providers Payer name Policy type / Coverage type Policy ID Covered constitution party ID Covered constitution party's relationship to [place] Policy [place] Plan Information [facility] I [id number] Self [id number] UHC I [id number] Self [id number] UHC I [id number] Self [id number] UNHC COMMUNITY PLAN MCDO [id number] SP [id number] UNHC COMMUNITY PLAN MCDO [id number] SP [id number] UNHC COMMUNITY PLAN MCDO [id number] SP [id number] MEDICAID [id number] SP [id number] MEDICAID M [id number] Self [id number] C I [id number] Self [id number] [facility] I [id number] Self [id number] [facility] I [id number] Self [id number] MEDICAID M [id number] Self [id number] C I [id number] Self [id number] [facility] I [id number] Self [id number] ANSI-Medicaid [id number] ANSI-Medicaid [id number] ANSI-Medicaid [id number] ANSI-Medicaid [id number] ANSI-Medicaid [id number] ANSI-Medicaid [id number] ANSI-Medicaid [id number] ANSI-Medicaid [id number] ANSI-Medicaid [id number] ANSI-Medicaid [id number] ANSI-Medicaid [id number] ANSI-Medicaid [id number] ANSI-Medicaid [id number] ANSI-Medicaid [id number] ANSI-Medicaid [id number] ANSI-Medicaid [id number] ANSI-Medicaid [id number] ANSI-Medicaid [id number] ANSI-Medicaid [id number] ANSI-Medicaid [id number] ANSI-Medicaid [id number] ANSI-Medicaid [id number] ANSI-Medicaid [id number] ANSI-Medicaid [id number] ANSI-Medicaid [id number] ANSI-Medicaid [id number] ANSI-Medicaid [id number] ANSI-Medicaid [id number] ANSI-Medicaid [id number] ANSI-Medicaid [id number] ANSI-Medicaid [id number] ANSI-Medicaid [id number] ANSI-Medicaid [id number] ANSI-Medicaid [id number] ANSI-Medicaid [id number] ANSI-Medicaid [id number] ANSI-Medicaid [id number] UNHC COMMUNITY PLAN MCDHMO [id number] SP [id number] SELF PAY ONLY UNAVAILABLE SP UNAV AILABLE UNHC COMMUNITY PLAN MCDHMO [id number] SP [id number] UNHC COMMUNITY PLAN MCDHMO [id number] SP [id number] UNHC COMMUNITY PLAN MCDHMO UNK SP UNK [facility] Health Maintenance Organization (HMO) [id number] Self Community Plan - [facility] Commercial [id number] Self UNHC COMMUNITY PLAN MCDHMO [id number] SP [id number] UNHC COMMUNITY PLAN MCDHMO [id number] SP [id number] Unitedhealthcare Medicaid Medicaid [id number] Self [employer] [place] PLAN [id number] SP [id number] UNHC COMMUNITY PLAN MCDHMO [id number] SP [id number] UNHC COMMUNITY PLAN MCDHMO [id number] SP [id number] [facility] [id number] S [id number] OTHER1 MEDICAID [id number] SP [id number] ANSI-Medicaid [id number] ANSI-Medicaid [id number] ANSI-Medicaid [id number] ANSI-Medicaid [id number] ANSI-Medicaid [id number] [facility]-Medicaid [id number] [facility]-Medicaid [id number] [facility]-Medicaid [id number] ANSI-Medicaid [id number] Problems, Conditions, and Diagnoses Code Display Name Description Problem Type Effective Dates Data Source(s) follow up follow up Diagnosis 02/15/2021 12:00:00 AM ED [facility] on treat on treat Diagnosis 01/18/2021 11:04:47 AM ED [facility] R10.30 Lower abdominal pain, unspecified Lower abdomina l pain, unspecified Diagnosis 12/14/2020 12:17:10 PM [facility] XRAY XRAY Diagnosis 12/14/2020 12:17:10 PM ED [facility] Z79.818 MCC (current) use of o ther agents affecting estrogen receptors and estrogen levels MCC (current) use of other agents affecting estrogen receptors and estrogen levels Diagnosis 05/21/2020 09:48:31 AM [facility] Z51.11 Encounter for antineoplastic chemotherap y Encounter for antineoplastic chemotherapy Diagnosis 05/21/2020 09:48:31 AM [facility] 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 [id number] Osteonecrosis of jaw Problem 03/08/2020 12:0 0:00 AM EST eCW1 ([facility]) Surgeries/Procedures Procedure Description Date Indications Data Source(s) BLOOD COUNT COMPLETE AUTO&AUTO DIFRNTL WBC COUNT <td>C BC AND DIFFERENTIAL</td><td>Routine</td><td>01/17/2021 3:52 AM EDT</td><td></td><td> </td> 01/17/2021 03:52:00 AM [facility] MAGNESIUM <td>MAGNESIUM LEVEL</td><td> Routine</td><td>01/17/2021 3:52 AM EDT</td><td></td><td> </td> 01/17/2021 03:52:00 AM [facility] BASIC METABOLIC PANEL CALCIUM TOTAL <td>BASIC METABOLI C PANEL</td><td>Routine</td><td>01/17/2021 3:52 AM EDT</td><td></td><td> </td> 01/17/2021 03:52:00 AM [facility] BLOOD COUNT COMPLETE AUTO&AUTO DIFRNTL WBC COUNT <td>C BC AND DIFFERENTIAL</td><td>Routine</td><td>01/16/2021 3:23 AM EDT</td><td></td><td> </td> 01/16/2021 03:23:00 AM [facility] MAGNESIUM <td>MAGNESIUM LEVEL</td><td> Routine</td><td>01/16/2021 3:23 AM EDT</td><td></td><td> </td> 01/16/2021 03:23:00 AM [facility] BASIC METABOLIC PANEL CALCIUM TOTAL <td>BASIC METABOLI C PANEL</td><td>Routine</td><td>01/16/2021 3:23 AM EDT</td><td></td><td> </td> 01/16/2021 03:23:00 AM [facility] TRANSFUSE RBC (ONCE) <td>TRANSFUSE RBC (ONCE)</td ><td>STAT</td><td>01/15/2021 4:46 PM EDT</td><td></td><td></td> 01/15/2021 04:46:11 PM [facility] BLOOD TYPING ABO <td>TYPE AND SCREEN</td><td> STAT</td><td>01/15/2021 12:15 PM EDT</td><td></td><td> </td> 01/15/2021 12:15:00 PM [facility] CONFIRMATORY TYPE <td>CONFIRMATORY TYPE</td><t d>Routine</td><td>01/15/2021 12:20 AM EDT</td><td></td><td> </td> 01/15/2021 12:20:00 AM [facility] BLOOD COUNT COMPLETE AUTO&AUTO DIFRNTL WBC COUNT <td>C BC AND DIFFERENTIAL</td><td>Routine</td><td>01/15/2021 12:20 AM EDT</td><td></td><td> </td> 01/15/2021 12:20:00 AM [facility] BASIC METABOLIC PANEL CALCIUM TOTAL <td>BASIC METABOLI C PANEL</td><td>Routine</td><td>01/15/2021 12:20 AM EDT</td><td></td><td> </td> 01/15/2021 12:20:00 AM [facility] CULTURE BACTERIAL BLOOD AEROBIC W/ID ISOLATES <td>BLOO D CULTURE</td><td>Routine</td><td>01/14/2021 7:58 PM EDT</td><td></td><td></td> 01/14/2021 07:58:00 PM [facility] CULTURE BACTERIAL BLOOD AEROBIC W/ID ISOLATES <td>BLOO D CULTURE</td><td>Routine</td><td>01/14/2021 12:03 PM EDT</td><td></td><td></td> 01/14/2021 12:03:00 PM [facility] COMMUNITY-ACQUIRED DIARRHEA PANEL <td>COMMUNITY-ACQUIR ED DIARRHEA PANEL</td><td>Routine</td><td>01/14/2021 6:19 AM EDT</td><td></td><td> </td> 01/14/2021 06:19:00 AM [facility] BLOOD COUNT COMPLETE AUTO&AUTO DIFRNTL WBC COUNT <td>C BC AND DIFFERENTIAL</td><td>Routine</td><td>01/14/2021 4:56 AM EDT</td><td></td><td> </td> 01/14/2021 04:56:00 AM [facility] BASIC METABOLIC PANEL CALCIUM TOTAL <td>BASIC METABOLI C PANEL</td><td>Routine</td><td>01/14/2021 4:56 AM EDT</td><td></td><td> </td> 01/14/2021 04:56:00 AM [facility] CULTURE BCT ISOL&PRSMPTV ID ISOLATE EA URINE <td>URINE CATHETER CULT</td><td>Routine</td><td>01/13/2021 4:46 PM EDT</td><td></td><td> </td> 01/13/2021 04:46:00 PM [facility] CULTURE BCT ISOL&PRSMPTV ID ISOLATE EA URINE <td>URINE SUPRAPUBIC CUL</td><td>Routine</td><td>01/13/2021 4:46 PM EDT</td><td></td><td></td> 01/13/2021 04:46:00 PM [facility] CULTURE BCT ISOL&PRSMPTV ID ISOLATE EA URINE <td>URINE SUPRAPUBIC CUL</td><td>Routine</td><td>01/13/2021 2:15 PM EDT</td><td></td><td></td> 01/13/2021 02:15:00 PM [facility] IR NEPHROSTOMY INSERTION CHANGE <td>IR NEPHROSTOMY INS ERTION CHANGE</td><td>Routine</td><td>01/13/2021 1:54 PM EDT</td><td></td><td> </td> 01/13/2021 01:54:50 PM [facility] IRON <td>TOTAL FE BINDING CAPACIT Y</td><td>Routine</td><td>01/13/2021 10:32 AM EDT</td><td></td><td> </td> 01/13/2021 10:32:00 AM [facility] LACTATE DEHYDROGENASE LDH <td>LACTATE DEHYDROGENASE</td><td>Routine</td><td>01/13/2021 10:32 AM EDT</td><td></td><td> </td> 01/13/2021 10:32:00 AM [facility] HAPTOGLOBIN QUANTITATIVE <td>HAPTOGLOBIN</td><td>Rout ine</td><td>01/13/2021 10:32 AM EDT</td><td></td><td> </td> 01/13/2021 10:32:00 AM [facility] FOLIC ACID SERUM <td>FOLATE</td><td>Routine</ td><td>01/13/2021 10:32 AM EDT</td><td></td><td> </td> 01/13/2021 10:32:00 AM [facility] FERRITIN <td>FERRITIN LEVEL</td><td>R outine</td><td>01/13/2021 10:32 AM EDT</td><td></td><td> </td> 01/13/2021 10:32:00 AM [facility] CYANOCOBALAMIN VITAMIN B-12 <td>VITAMIN B12</td><td>Ro utine</td><td>01/13/2021 10:32 AM EDT</td><td></td><td> </td> 01/13/2021 10:32:00 AM [facility] POTASSIUM SERUM PLASMA/WHOLE BLOOD <td>POTASSIUM</td><td>Routine</td><td>01/13/2021 6:22 AM EDT</td><td></td><td> </td> 01/13/2021 06:22:00 AM [facility] PHOSPHORUS INORGANIC <td>PHOSPHORUS LEVEL</td><td >Routine</td><td>01/13/2021 6:22 AM EDT</td><td></td><td> </td> 01/13/2021 06:22:00 AM [facility] MAGNESIUM <td>MAGNESIUM LEVEL</td><td> Routine</td><td>01/13/2021 6:22 AM EDT</td><td></td><td> </td> 01/13/2021 06:22:00 AM [facility] BLOOD COUNT COMPLETE AUTO&AUTO DIFRNTL WBC COUNT <td>C BC AND DIFFERENTIAL</td><td>Routine</td><td>01/13/2021 1:42 AM EDT</td><td></td><td> </td> 01/13/2021 01:42:00 AM [facility] CALCIUM IONIZED <td>CALCIUM, IONIZED</td><td >Routine</td><td>01/13/2021 1:42 AM EDT</td><td></td><td> </td> 01/13/2021 01:42:00 AM [facility] BASIC METABOLIC PANEL CALCIUM TOTAL <td>BASIC METABOLI C PANEL</td><td>Routine</td><td>01/13/2021 1:42 AM EDT</td><td></td><td> </td> 01/13/2021 01:42:[address] AM [facility] CT ABDOMEN & PELVIS W/O CONTRAST MATERIAL <td>CT ABDOM EN PELVIS WITHOUT CONTRAST [id number]</td><td>Routine</td><td>01/12/2021 7:36 PM EDT</td><td></td><td> </td> 01/12/2021 07:36:43 PM [facility] HEPATITIS C ANTIBODY <td>HEPATITIS C ANTIBODY</td ><td>Routine</td><td>01/12/2021 5:41 PM EDT</td><td></td><td> </td> 01/12/2021 05:41:00 PM [facility] PROTHROMBIN TIME <td>PROTIME INR</td><td>Rout ine</td><td>01/12/2021 5:41 PM EDT</td><td></td><td> </td> 01/12/2021 05:41:[address] [facility] CALCIUM IONIZED <td>CALCIUM, IONIZED</td><td >Routine</td><td>01/12/2021 5:41 PM EDT</td><td></td><td> </td> 01/12/2021 05:41:[address] [facility] THER RAD SIMULAJ-AIDED FIELD SETTING COMPLEX <td>CT SI MULATION AT RAD ONC (IN OFFICE)</td><td>Routine</td><td>01/12/2021 2:09 PM EDT</td><td> Prostate cancer</td><td></td> 01/12/2021 02:09:00 PM EDT Prostate cancer [facility] Prostate cancer US RETROPERITONEAL REAL TIME W/IMAGE COMPLETE <td>US R ENAL OR AORTA COMPLETE [id number]</td><td>Routine</td><td>01/12/2021 10:59 AM EDT</td><td></td><td> </td> 01/12/2021 10:59:00 AM [facility] MRI BRAIN BRAIN STEM W/O &W/CONTRAST MATERIAL <td>MR B RAIN WITH AND WITHOUT CONTRAST [id number]</td><td>Routine</td><td>01/12/2021 9:53 AM EDT</td><td></td><td> </td> 01/12/2021 09:53:52 AM [facility] CALCIUM IONIZED <td>CALCIUM, IONIZED</td><td >Routine</td><td>01/12/2021 8:24 AM EDT</td><td></td><td> </td> 01/12/2021 08:24:00 AM [facility] COVID-19 PCR <td>COVID-19 PCR</td><td>Rou yandel</td><td>01/12/2021 5:13 AM EDT</td><td></td><td> </td> 01/12/2021 05:13:00 AM [facility] BLOOD COUNT COMPLETE AUTOMATED <td>CBC</td><td>Routine </td><td>01/12/2021 1:11 AM EDT</td><td></td><td> </td> 01/12/2021 01:11:00 AM [facility] PHOSPHORUS INORGANIC <td>PHOSPHORUS LEVEL</td><td >Routine</td><td>01/12/2021 1:11 AM EDT</td><td></td><td> </td> 01/12/2021 01:11:00 AM [facility] PARATHORMONE <td>PTH, INTACT</td><td>Rout ine</td><td>01/12/2021 1:11 AM EDT</td><td></td><td> </td> 01/12/2021 01:11:00 AM [facility] MAGNESIUM <td>MAGNESIUM LEVEL</td><td> Routine</td><td>01/12/2021 1:11 AM EDT</td><td></td><td> </td> 01/12/2021 01:11:00 AM [facility] CALCIUM IONIZED <td>CALCIUM, IONIZED</td><td >Routine</td><td>01/12/2021 1:11 AM EDT</td><td></td><td> </td> 01/12/2021 01:11:00 AM [facility] COMPREHENSIVE METABOLIC PANEL <td>COMPREHENSIVE METABO LIC PANEL</td><td>Routine</td><td>01/12/2021 1:11 AM EDT</td><td></td><td> </td> 01/12/2021 01:11:00 AM [facility] BASIC METABOLIC PANEL CALCIUM TOTAL <td>BASIC METABOLI C PANEL</td><td>Routine</td><td>01/11/2021 6:34 PM EDT</td><td></td><td> </td> 01/11/2021 06:34:00 PM [facility] XR CHEST FRONTAL ONLY [id number] <td>XR CHEST FRONTAL ONLY [id number]</td><td>Routine</td><td>01/11/2021 6:07 PM EDT</td><td></td><td> </td> 01/11/2021 06:07:00 PM [facility] CULTURE BACTERIAL BLOOD AEROBIC W/ID ISOLATES <td>BLOO D CULTURE</td><td>Routine</td><td>01/11/2021 11:50 AM EDT</td><td></td><td> </td> 01/11/2021 11:50:00 AM [facility] CALCIUM IONIZED <td>CALCIUM, IONIZED</td><td >Routine</td><td>01/11/2021 11:40 AM EDT</td><td></td><td> </td> 01/11/2021 11:40:00 AM [facility] EKG 12-LEAD - CMAXX REPORT <td>EKG 12-LEAD - CMAXX REPORT</td><td></td><td>01/11/2021 11:35 AM EDT</td><td></td><td></td> 01/11/2021 11:35:37 AM [facility] EKG 12-LEAD - CMAXX REPORT <td>EKG 12-LEAD - CMAXX REPORT</td><td></td><td>01/11/2021 11:35 AM EDT</td><td></td><td></td> 01/11/2021 11:35:[address] [facility] EKG 12-LEAD <td>EKG 12-LEAD</td><td>STAT </td><td>01/11/2021 11:35 AM EDT</td><td> Prostate cancer metastatic to bone</td><td> </td> 01/11/2021 11:35:37 AM EDT Prostate cancer metastatic to [facility] Prostate cancer metastatic to bone CULTURE BACTERIAL BLOOD AEROBIC W/ID ISOLATES <td>BLOO D CULTURE</td><td>Routine</td><td>01/11/2021 11:28 AM EDT</td><td> Prostate cancer metastatic to bone</td><td> </td> 01/11/2021 11:28:00 AM EDT Prostate cancer metastatic to [facility] Prostate cancer metastatic to bone LACTATE <td>LACTIC ACID LEVEL, PLASM A</td><td>STAT</td><td>01/11/2021 11:28 AM EDT</td><td> Prostate cancer metastatic to bone</td><td> </td> 01/11/2021 11:28:00 AM EDT Prostate cancer metastatic to [facility] Prostate cancer metastatic to bone AMMONIA <td>AMMONIA LEVEL</td><td>ST AT</td><td>01/11/2021 11:28 AM EDT</td><td> Secondary malignant neoplasm of bone</td><td> </td> 01/11/2021 11:28:00 AM EDT Secondary malignant neoplasm of bone [facility] Secondary malignant neoplasm of bone PROCALCITONIN (PCT) <td>PROCALCITONIN</td><td>Ro utine</td><td>01/11/2021 11:24 AM EDT</td><td> Prostate cancer metastatic to bone</td><td> </td> 01/11/2021 11:24:00 AM EDT Prostate cancer metastatic to bone [facility] Prostate cancer metastatic to bone URNLS DIP STICK/TABLET REAGENT AUTO MICROSCOPY <td>URI NALYSIS WITH MICROSCOPIC</td><td>STAT</td><td>01/11/2021 11:24 AM EDT</td><td> Prostate cancer metastatic to bone</td><td> </td> 01/11/2021 11:24:00 AM EDT Prostate cancer metastatic to bone [facility] Prostate cancer metastatic to bone CULTURE BCT ISOL&PRSMPTV ID ISOLATE EA URINE <td>URINE CULTURE</td><td>Routine</td><td>01/11/2021 11:24 AM EDT</td><td> Prostate cancer metastatic to bone</td><td> </td> 01/11/2021 11:24:00 AM EDT Prostate cancer metastatic to bone 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 Lower abdominal pain BLOOD COUNT COMPLETE AUTO&AUTO DIFRNTL WBC COUNT <td>C BC AND DIFFERENTIAL</td><td>Routine</td><td>12/14/2020 10:40 AM EDT</td><td> Prostate cancer metastatic to bone</td><td> </td> 12/14/2020 10:40:00 AM EDT Prostate cancer metastatic to bone [facility] Prostate cancer metastatic to bone PROSTATE SPECIFIC ANTIGEN TOTAL <td>PSA</td><td>Routin e</td><td>12/14/2020 10:40 AM EDT</td><td> Prostate cancer metastatic to bone</td><td> </td> 12/14/2020 10:40:00 AM EDT Prostate cancer metastatic to [facility] Prostate cancer metastatic to bone COMPREHENSIVE METABOLIC PANEL <td>COMPREHENSIVE METABO LIC PANEL</td><td>STAT</td><td>12/14/2020 10:40 AM EDT</td><td> Prostate cancer metastatic to bone</td><td> </td> 12/14/2020 10:40:00 AM EDT Prostate cancer metastatic to [facility] Prostate cancer metastatic to bone BLOOD COUNT COMPLETE AUTO&AUTO DIFRNTL WBC COUNT <td>C BC AND DIFFERENTIAL</td><td>Routine</td><td>11/23/2020 9:06 AM EDT</td><td> Prostate cancer metastatic to bone</td><td> </td> 11/23/2020 09:06:00 AM EDT Prostate cancer metastatic to [facility] Prostate cancer metastatic to bone PROSTATE SPECIFIC ANTIGEN TOTAL <td>PSA</td><td>Routin e</td><td>11/23/2020 9:06 AM EDT</td><td> Prostate cancer metastatic to bone</td><td> </td> 11/23/2020 09:06:00 AM EDT Prostate cancer metastatic to [facility] Prostate cancer metastatic to bone COMPREHENSIVE METABOLIC PANEL <td>COMPREHENSIVE METABO LIC PANEL</td><td>STAT</td><td>11/23/2020 9:06 AM EDT</td><td> Prostate cancer metastatic to bone</td><td> </td> 11/23/2020 09:06:00 AM EDT Prostate cancer metastatic to [facility] Prostate cancer metastatic to bone BLOOD COUNT COMPLETE AUTO&AUTO DIFRNTL WBC COUNT <td>C BC AND DIFFERENTIAL</td><td>STAT</td><td>11/16/2020 3:15 PM EDT</td><td> Prostate cancer metastatic to bone</td><td> </td> 11/16/2020 03:15:00 PM EDT Prostate cancer metastatic to bone [facility] Prostate cancer metastatic to bone PROSTATE SPECIFIC ANTIGEN TOTAL <td>PSA, TOTAL AND FREE</td><td>STAT</td><td>11/16/2020 3:15 PM EDT</td><td> Prostate cancer metastatic to bone</td><td> </td> 11/16/2020 03:15:00 PM EDT Prostate cancer metastatic to bone [facility] Prostate cancer metastatic to bone COMPREHENSIVE METABOLIC PANEL <td>COMPREHENSIVE METABO LIC PANEL</td><td>STAT</td><td>11/16/2020 3:15 PM EDT</td><td> Prostate cancer metastatic to bone</td><td> </td> 11/16/2020 03:15:00 PM EDT Prostate cancer metastatic to [facility] Prostate cancer metastatic to bone LAB RESULTS (OUTSIDE/HISTORICAL) <td>LAB RESULTS (OUTSIDE/HISTORICAL)</td><td></td><td>11/08/2020 10:31 AM EDT</td><td></td><td></td> 11/08/2020 10:31:00 AM EDT [facility] LAB RESULTS (OUTSIDE/HISTORICAL) <td>LAB RESULTS (OUTSIDE/HISTORICAL)</td><td></td><td>11/08/2020 10:30 AM EDT</td><td></td><td></td> 11/08/2020 10:30:00 AM EDT [facility] RADIOLOGY REPORT <td>RADIOLOGY REPORT</td><td ></td><td>11/08/2020 10:27 AM EDT</td><td></td><td></td> 11/08/2020 10:27:00 AM EDT [facility] RADIOLOGY REPORT <td>RADIOLOGY REPORT</td><td ></td><td>11/08/2020 10:26 AM EDT</td><td></td><td></td> 11/08/2020 10:26:00 AM EDT [facility] BONE &/JOINT IMAGING WHOLE BODY <td>NM BONE SCAN IMAGI NG WHOLE BODY [id number]</td><td>Routine</td><td>10/05/2020 12:59 PM EDT</td><td> Prostate cancer metastatic to bone</td><td> </td> 10/05/2020 12:59:00 PM EDT Prostate cancer metastatic to bone [facility] Prostate cancer metastatic to bone BLOOD COUNT COMPLETE AUTO&AUTO DIFRNTL WBC COUNT <td>C BC AND DIFFERENTIAL</td><td>STAT</td><td>08/20/2020 10:48 AM EDT</td><td> Prostate cancer metastatic to bone</td><td> </td> 08/20/2020 10:48:00 AM EDT Prostate cancer metastatic to bone [facility] Prostate cancer metastatic to bone PROSTATE SPECIFIC ANTIGEN TOTAL <td>PSA, TOTAL AND FREE</td><td>STAT</td><td>08/20/2020 10:48 AM EDT</td><td> Prostate cancer metastatic to bone</td><td> </td> 08/20/2020 10:48:00 AM EDT Prostate cancer metastatic to bone [facility] Prostate cancer metastatic to bone COMPREHENSIVE METABOLIC PANEL <td>COMPREHENSIVE METABO LIC PANEL</td><td>STAT</td><td>08/20/2020 10:48 AM EDT</td><td> Prostate cancer metastatic to bone</td><td> </td> 08/20/2020 10:48:00 AM EDT Prostate cancer metastatic to [facility] Prostate cancer metastatic to bone BLOOD COUNT COMPLETE AUTO&AUTO DIFRNTL WBC COUNT <td>C BC AND DIFFERENTIAL</td><td>STAT</td><td>05/21/2020 10:07 AM EST</td><td> Prostate cancer metastatic to bone</td><td> </td> 05/21/2020 10:07:00 AM EST Prostate cancer metastatic to [facility] Prostate cancer metastatic to bone PROSTATE SPECIFIC ANTIGEN TOTAL <td>PSA, TOTAL AND FREE</td><td>STAT</td><td>05/21/2020 10:07 AM EST</td><td> Prostate cancer metastatic to bone</td><td> </td> 05/21/2020 10:07:00 AM EST Prostate cancer metastatic to [facility] Prostate cancer metastatic to bone COMPREHENSIVE METABOLIC PANEL <td>COMPREHENSIVE METABO LIC PANEL</td><td>STAT</td><td>05/21/2020 10:07 AM EST</td><td> Prostate cancer metastatic to bone</td><td> </td> 05/21/2020 10:07:00 AM EST Prostate cancer metastatic to [facility] Prostate cancer metastatic to bone BLOOD COUNT COMPLETE AUTO&AUTO DIFRNTL WBC COUNT <td>C BC AND DIFFERENTIAL</td><td>STAT</td><td>02/19/2020 2:57 PM EDT</td><td> Primary prostate adenocarcinoma</td><td> </td> 02/19/2020 02:57:00 PM EDT Primary prostate adenocarcinoma [facility] pithi Primary prostate adenocarcinoma PROSTATE SPECIFIC ANTIGEN TOTAL <td>PSA, TOTAL AND FREE</td><td>STAT</td><td>02/19/2020 2:57 PM EDT</td><td> Primary prostate adenocarcinoma</td><td> </td> 02/19/2020 02:57:00 PM EDT Primary prostate adenocarcinoma [facility] Primary prostate adenocarcinoma COMPREHENSIVE METABOLIC PANEL <td>COMPREHENSIVE METABO LIC PANEL</td><td>STAT</td><td>02/19/2020 2:57 PM EDT</td><td> Primary prostate adenocarcinoma</td><td> </td> 02/19/2020 02:57:00 PM EDT Primary prostate adenocarcinoma [facility] Primary prostate adenocarcinoma Results ID Date Data Source [id number] 02/16/2021 11:27:12 AM EDT [facility] Name Value Range Interpretation Code Description Data Belinda rce(s) Supporting Document(s) Progress Note [facility] GPCMKa6cGzXNPqSq50/DZFoyRHPze3XxMFtwSCe4UMruJNOuR7OmPAW6xB3nCVL5IIqPByUdHeGhTLFa lbm [file] IbS8OyKMUfTeYE4RPYo= ID Date Data Source [id number] 02/11/2021 02:49:37 PM EDT [facility] Name Value Range Interpretation Code Description Data Belinda rce(s) Supporting Document(s) Progress Note [facility] BCCAZu5gMsOUEkBd72/ZONqtOHVpt5IaPMqsSJf4IRtlOZOrH1QlWYF4qT4gCPE2HBmSDuIuYuAgYBH3 lbm [file] ICAgICAgICAgICAgICAgICAgICAgICAgICAgICAgICAgICAgICAgICAgICAgICAgICAgICAgICAgICAg ICAgICAgICAgICAgICAgICAgICAgICAgICAgICAgIC ANCiAgICAgICAgICAgICAgICAgICAgICAgICAgICAgICAgICAgICAgICAgICAgICAgICAgICAgICAgIC AgICAgICAgICAgICAgICAgICAgICAgICAgICAgICAgICAgICAgICAgICANCiAgICAgICAgICAgICAgIC AgICAgICAgICAgICAgICAgICAgICAgICAgICAgICAg ICAgICAgICAgICAgICAgICAgICAgICAgICAgICAgICAgICAgICAgICAgICAgICAgICAgICANCiAgICAg ICAgICAgICAgICAgICAgICAgICAgICAgICAgICAgICAgICAgICAgICAgICAgICAgICAgICAgICAgICAg ICAgICAgICAgICAgICAgICAgICAgICAgICAgICAgIC AgICANCiAgICAgICAgICAgICAgICAgICAgICAgICAgICAgICAgICAgICAgICAgICAgICAgICAgICAgIC AgICAgICAgICAgICAgICAgICAgICAgICAgICAgICAgICAgICAgICAgICAgICANCiAgICAgICAgICAgIC AgICAgICAgICAgICAgICAgICAgICAgICAgICAgICAg ICAgICAgICAgICAgICAgICAgICAgICAgICAgICAgICAgICAgICAgICAgICAgICAgICAgICAgICANCiAg ICAgICAgICAgICAgICAgICAgICAgICAgICAgICAgICAgICAgICAgICAgICAgICAgICAgICAgICAgICAg ICAgICAgICAgICAgICAgICAgICAgICAgICAgICAgIC AgICAgICANCiAgICAgICAgICAgICAgICAgICAgICAgICAgICAgICAgICAgICAgICAgICAgICAgICAgIC AgICAgICAgICAgICAgICAgICAgICAgICAgICAgICAgICAgICAgICAgICAgICAgICANCiAgICAgICAgIC AgICAgICAgICAgICAgICAgICAgICAgICAgICAgICAg ICAgICAgICAgICAgICAgICAgICAgICAgICAgICAgICAgICAgICAgICAgICAgICAgICAgICAgICAgICAN CiAgICAgICAgICAgICAgICAgICAgICAgICAgICAgICAgICAgICAgICAgICAgICAgICAgICAgICAgICAg ICAgICAgICAgICAgICAgICAgICAgICAgICAgICAgIC AgICAgICAgICANCjw/wDTtE5lcrZEhijQ5L1mmUs5BZu2WRN9uz4DlXOVhWBabusHbOooYJqXvJTZwYj zAQfy7DBefZU9AdRPwW1IrM0YcGNhzOQ9NJCDtNLUvjCPgYKSoIHGsYaY0RZUsNRpqVU3LpUSfHUdiZE WlRYNkZE5VHZSsF781yjKvFQ5HEs3PBfPfDK6kxe1T EXwmQLYpWllIQvl8IIyoLL0CiPCphTXdXQOkJHUCSkPmD1fhj4VgSjCiIGDHXOzrPZ6Kw1YnuJQeAMq+ Ib4ZKU0pf7NdIZnzKMVeEG7xhi1NPPrLXgFiE4HnhOjuRPIew4krKROmJU2ezPKnRXM2TVTavMSTBH3t FD3jofvoFUJhBKZtZXGsYM4hKLFiCXMhNdYsQCXKMO 2OVAThYITdiHLqQCLgFPDAYZ8JFEgeFWF4HLRijkIccKLvOSuqLV3DVCKlwbXpDOxfBQREQYf+Pg0KZW 9kd2WhCTmqBBImVV5yku4OJCzFCtVlB1H6rKYkR5F0ZHbtAo6GLTUnNYCqLLmuFXCOGEtzUD2WPQ6abv U1RM9EmADdDMYwCWXkeBZfWWs6D00dzRPwABenCI0A ICA+Immanuel+Kd3RNPMoYSJoBMUaHbKcLYQCWdHpV2JlD0IXb7SgW1RoED82yLlyuvBiDBlxBZ1CXC9tVJGc TLHAXN9OiNFybI8qggRyJWRgYWITMeNxA39wcECvAMTqJNC0SQXjPr3GSGKsI1VgxdAlcHhnniIqDPWi LLTWIC5YHCdzagVutPQocXonDL37oRrkXR5APa1LBb AvXV2voe2AjUPsBh6BGOUiPm7MJGDwAZAyDMDhKBD3AGPxKuOwABkbLGMvMGIfMOM8OSXlIQLyWQ3XGs RtRQVbLVc8HlCwWIVfOOWlff5HMCOdDIXtPKE9EXHhTIHvWIBtSMveCACuSMVsRKF0IOWuYHDgDR3PTv VxCTDyLVIpHOduASPdJLZmup8OMUEtWQOlRlSzCuNr JAWwTLIeTBoqOQIqXPXrEBehKGYdDAOiSN2SLcTgICGvRII6QfppFZDhGLRlnt6PYYRxHVXrDqn0GtHw DVHlKYHzSYaoVXTbSER9EZR8VWMpQADsFI6VLdErZFWkPJBzLYsxKQByIAIwsm2YWOZsHBLmRAE6KBGy DAKbPMQlBOfyTOUyTZW3WxF6OLEvFRNaAN2BPoPyJG UuQXV6ESofCJQzMXIect0CSSUeZABxGcC7NWZcKUBpUXLzTRnrURAcHEZ5TFU9QPSqVVUoTC5KZkYpBL KmDAr1XDFyXTNfLUQdhd7FILRlLRRkXjo4WZZeUTDwNMJyVBuwWXDuCZQ3HkkwOFZyMQDnVR9GAzNySN CkDGq5PbCoPXFaNJMssf9IFSIvPAEiGZNgNIUbXJAm IYXtLCf7ipQejAQtFPj5WR2UL1XlnfMvOjCLEf8Jl072KJQfQMYiDb2FI8yaFu9yRMGoIWCXOn7TEEm9 BeEeXYDpUGHcDsBqRLNjPbhhAGKbBKQ6BWE5V2SiSmM+FHb5XfCfT1DdLhPmQIU9OoNkHNDhJnPmALpu ARJpQiTpEd5oVBDUSo6+MNpfhWZeuMtkAOAYUwF9FUM3WQsmHTYFDl0O ID Date Data Source [id number] 02/11/2021 02:49:32 PM EDT [facility] Name Value Range Interpretation Code Description Data Belinda rce(s) Supporting Document(s) Progress Note [facility] LFGYEw3tMdWAGxGz60/MNYehBCKxu2TeRMwiCUf2LFgxUCLhD9VdZXT3lE9hDGE4KVuIJiFhTiRnZHM8 lbm [file] Cg== ID Date Data Source [id number] 02/08/2021 05:05:32 PM EDT [facility] Name Value Range Interpretation Code Description Data Belinda rce(s) Supporting Document(s) Progress Note [facility] STFTZd5zAoTMJyXs49/PMLxlWPAhw2HoDQezOCs1JHnlJRZtK8OgJJW2tS9jDMI0WCoWGlHsOtWoEDTu lbm [file] XSANCj4+USapbJWniEiaTHGFCiN1KMf6WFqpXLNYEx8D ID Date Data Source [id number] 02/04/2021 02:19:00 PM EDT [facility] Name Value Range Interpretation Code Description Data Belinda rce(s) Supporting Document(s) SARS coronavirus 2 RNA [Presence] in Res piratory specimen by [place] with probe detection NEGATIVE [facility] This lab was ordered by [facility] a nd reported by [facility]. ID Date Data Source [id number] 02/01/2021 05:07:16 PM EDT [facility] 9.5Serum levels of PSA should not be int erpreted as absolute evidence of the presence or absence of Cancer. Results obtained with different methods cannot be used interchangeably. This method is manufactured by [employer] and is an electrochemiluminesence immunoassay. Name Value Range Interpretation Code Description Data Belinda rce(s) Supporting Document(s) Leukocytes [#/volume] in Blood by Automated count 5.2 10*3/uL 4-10 [facility] Erythrocytes [#/volume] in Blood by Automated count 3.13 10*6/uL 4.6- 6.[address] [facility] Hemoglobin [Mass/volume] in Blood 9.0 g/dL 13.5-[address] [facility] Hematocrit [Volume Fraction] of Blood by Automated count 27.0 % 4 1-[address] [facility] Erythrocyte mean corpuscular volume [Entitic volume] by Auto mated count 86.2 fL 80-96 [facility] Erythrocyte mean corpuscular hemoglobin [Entitic mass] by Automated count 28.8 pg 27-33 [facility] Erythrocyte mean corpuscular hemoglobin concentration [Mass/volume] by Automated count 33.4 g/[facility].0[facility] width [Ratio] by Automated count 18.1 % 11.5-14.[address] [facility] Platelets [#/volume] in Blood by Automated count 341 10*3/uL 150-400 [facility] Differential cell count method - Blood [facility] Neutrophils/100 leukocytes in Blood by Automated count 73 % [facility] Lymphocytes/100 leukocytes in Blood by Automated count 15 % [facility] Monocytes/100 leukocytes in Blood by Automated count 10 % [facility] Eosinophils/100 leukocytes in Blood by Automated count 1 % [facility] Basophils/100 leukocytes in Blood by Automated count 1 % [facility] Neutrophils [#/volume] in Blood by Automated count 3.84 10*3/uL 1.8-[address] [facility] Lymphocytes [#/volume] in Blood by Automated count 0.76 10*3/uL 1.2-[address] [facility] Monocytes [#/volume] in Blood by Automated count 0.52 10*3/uL 0-0.8 [facility] Eosinophils [#/volume] in Blood by Automated count 0.03 10*3/uL 0-0.5 [facility] Basophils [#/volume] in Blood by Automated count 0.03 10*3/uL 0-0.2 [facility] Nucleated erythrocytes/100 leukocytes [Ratio] in Blood by Automated count 0 /100{WBCs} 0-0 [facility] ID Date Data Source [id number] 02/01/2021 05:56:04 PM EDT [facility] 9.5Serum levels of PSA should not be int erpreted as absolute evidence of the presence or absence of Cancer. Results obtained with different methods cannot be used interchangeably. This method is manufactured by [employer] and is an electrochemiluminesence immunoassay. Name Value Range Interpretation Code Description Data Belinda rce(s) Supporting Document(s) Prostate Specific Ag Free [Mass/volume] in Serum or Plasma 1.5 ng/mL [facility] 15.2 ID Date Data Source [id number] 02/01/2021 06:14:44 PM EDT [facility] 9.5Serum levels of PSA should not be int erpreted as absolute evidence of the presence or absence of Cancer. Results obtained with different methods cannot be used interchangeably. This method is manufactured by [employer] and is an electrochemiluminesence immunoassay. Name Value Range Interpretation Code Description Data Belinda rce(s) Supporting Document(s) Albumin [Mass/volume] in Serum or Plasma by Bromocresol green (BCG) dye binding method 4.0 g/dL 3.5-5.2 [facility] Bilirubin.total [Mass/volume] in Serum or Plasma 0.3 mg/dL <1.2 [facility] Calcium [Mass/volume] in Serum or Plasma 13.3 mg/dL 8.6-10.0 [facility] Results called to and read back by ON C ALL DR GEE AT 1814 /4245 Chloride [Moles/volume] in Serum or Plasma 89 mmol/L 98-[address] [facility] Creatinine [Mass/volume] in Serum or Plasma 0.90 mg/dL 0.70-1.20 [facility] Glucose [Mass/volume] in Serum or Plasma 112 mg/dL 70-140 [facility] Alkaline phosphatase [Enzymatic activity/volume] in Serum or Plasma 156 U/L 40-[address] [facility] Potassium [Moles/volume] in Serum or Plasma 3.3 mmol/L 3.4-5.[address] [facility] Protein [Mass/volume] in Serum or Plasma 7.4 g/dL 6.4-8.3 [facility] Sodium [Moles/volume] in Serum or Plasma 131 mmol/L 136-[address] [facility] Aspartate aminotransferase [Enzymatic activity/volume] in Serum or Plasma 30 U/L <40 [facility] Urea nitrogen [Mass/volume] in Serum or Plasma 10 mg/dL 8-23 [facility] Osmolality of Serum or Plasma by calculation 272 mosm/kg 275-[address] [facility] Creatinine/Urea nitrogen [Mass Ratio] in Serum or Plasma 11 [facility] Bicarbonate [Moles/volume] in Serum 27 mmol/L 22-29 [facility] Alanine aminotransferase [Enzymatic activity/volume] in Seru m or Plasma 11 U/L <41 [facility] Anion gap 3 in Serum or Plasma 15 mmol/L 8-15 [facility] Glomerular filtration rate/1.73 sq M pre dicted among non-blacks [Volume Rate/Area] in Serum or Plasma by Creatinine-based formula (MDRD) >[address] [facility] Glomerular filtration rate/1.73 sq M pre dicted among blacks [Volume Rate/Area] in Serum or Plasma by Creatinine-based formula (MDRD) >60 [facility] ID Date Data Source [id number] 01/25/2021 11:43:33 AM EDT [facility] Name Value Range Interpretation Code Description Data Belinda rce(s) Supporting Document(s) Progress Note [facility] OXHJEu5aBfYYMoAw30/QLNonUSCiz0QwQWapCDt1JRvsUAPgD2VnTWT5uD6rKTT0YLjOPiSxBwSwZPU2 lb [file] [employer]/5QJsyldAABqcDKWIWOb2nPJYnPnVO+kDyxeSB6Y [file] UjQhZjJpVOitDEPANc2E ID Date Data Source [id number] 01/25/2021 11:43:28 AM EDT [facility] Name Value Range Interpretation Code Description Data Belinda rce(s) Supporting Document(s) Progress Note [facility] HEUZZs7cOwMDRhEh82/RKLagMYJms8CgRVeqELj0DSquUWIcQ7KzZCT9iW8dYFR8GXoVAwZdOwLlRNH7 lbm [file] dGE+DQogICAgICAgICAgICAgICAgICAgICAgICAgICAgICAgICAgICAgICAgICAgICAgICAgICAgICAg ICAgICAgICAgICAgICAgICAgICAgICAgICAgICAgIC AgICAgICAgICAgICAgDQogICAgICAgICAgICAgICAgICAgICAgICAgICAgICAgICAgICAgICAgICAgIC AgICAgICAgICAgICAgICAgICAgICAgICAgICAgICAgICAgICAgICAgICAgICAgICAgICAgICAgDQogIC AgICAgICAgICAgICAgICAgICAgICAgICAgICAgICAg ICAgICAgICAgICAgICAgICAgICAgICAgICAgICAgICAgICAgICAgICAgICAgICAgICAgICAgICAgICAg ICAgICAgDQogICAgICAgICAgICAgICAgICAgICAgICAgICAgICAgICAgICAgICAgICAgICAgICAgICAg ICAgICAgICAgICAgICAgICAgICAgICAgICAgICAgIC AgICAgICAgICAgICAgICAgDQogICAgICAgICAgICAgICAgICAgICAgICAgICAgICAgICAgICAgICAgIC AgICAgICAgICAgICAgICAgICAgICAgICAgICAgICAgICAgICAgICAgICAgICAgICAgICAgICAgICAgDQ ogICAgICAgICAgICAgICAgICAgICAgICAgICAgICAg ICAgICAgICAgICAgICAgICAgICAgICAgICAgICAgICAgICAgICAgICAgICAgICAgICAgICAgICAgICAg ICAgICAgICAgDQogICAgICAgICAgICAgICAgICAgICAgICAgICAgICAgICAgICAgICAgICAgICAgICAg ICAgICAgICAgICAgICAgICAgICAgICAgICAgICAgIC AgICAgICAgICAgICAgICAgICAgDQogICAgICAgICAgICAgICAgICAgICAgICAgICAgICAgICAgICAgIC AgICAgICAgICAgICAgICAgICAgICAgICAgICAgICAgICAgICAgICAgICAgICAgICAgICAgICAgICAgIC AgDQogICAgICAgICAgICAgICAgICAgICAgICAgICAg ICAgICAgICAgICAgICAgICAgICAgICAgICAgICAgICAgICAgICAgICAgICAgICAgICAgICAgICAgICAg ICAgICAgICAgICAgDQogICAgICAgICAgICAgICAgICAgICAgICAgICAgICAgICAgICAgICAgICAgICAg ICAgICAgICAgICAgICAgICAgICAgICAgICAgICAgIC YrQGQyPHIuDAQxFMCaATWjEEAxUOPaDAe0J0zxRITwIYGvXK3gWPc1Ud5+FQaRJqMeXKP4grCmxZ3XON 0ih2FtRXmtDWIuv8HrHNu4NM6BUQGwSLpjSU0PIVcusr9ARMIqVBPduCGSn4fzXxNmJJB2RFCdGycaUN 0HHVBoU6jzdbGgZZVkCERPOCotNIMQGZWcTZNdIaRy VkDpCTEoIPFuQSIUWSS2UFKiGbMzKGZbEHCvMtJrKSQDMK4IUcWlY4JujW84EGjQJo6+DQplbmRvYmoN PdAqDPAax3OvFLk9DH7IRDSsFvnjb4OsHSNaADMZDKwpPC1SHVM6HKLyWVBoPa8UYNUvY240meQtPT8G Wu3AZrPoRA8mcu0PKQAbPNVpAxlWUva8SOboYX3TkU BgCEwSxs6yahPxuoIYt6YfdtTtfYMWXS9dDKGRRHaifITbBOMwHP4TKJQ2RGexBGAwTsGlYQSlXImyOK OBYLsUAhXbP2Rrw9AkEaV8JNAkRgHtIHtlNJFqVFenLB83xLwgDY3PNRBjWGPgKD70YGVcOECxWy2DSk 0IFdPvMX3uoi3WVxRjJU9dxv5LMKdLEpYeW2R6fIDc B5Xjpa31QM7ZmSW8bGJdFG8VjV1vWG3No6MnKVIkJdZrKLKhPNHeFKVeCVGdMsBuFW3YZXCgUuOdeKKu RCVgWAZ6ZHUiWeH9WJBzSP0GOYNjUDV8YC9IZC2ODsmtA9SHHZhtmThmJoSPZUO/QUNUSVZJVFkmTVJf H11SP1UPIItAQydgMYsYJnxkMh9cMZp+Lk8PIA9uc5 VcUUw1WzIyHH9tdl4SVIoBQpBhK3T1vBEpR2Z0HCapHh2CITXxHLJhPgupVNELHXtuIO8MRE9nhyJ2PL 7DbWArETPnTIFlwZHgFSk7V82xzTFoEWhjEX8YXTP+Immanuel+Fl1JUASyDMPjYJDtNwEbMURZRpDkS5XlU1 IFm7LkB7GyRC06wOqoneLrINmkVX9GAB3cMISeUIXN GV7IxELqjF3oviS8YCSiGDSQBhLzZ78osGNkCTAyYBE1RUNqBr7EOHMdI2HlxlFwuBmhipXiRZOhDOWR JJ6NQZgafvVqyXZxqZueAB31pSwaQA4VOs3FClXmDK7izg7KwLCzTa7GBQP7Vl3RIVUfVNZeYXZyCHX3 USQuQhDcVPxgFMWhUOThZCK3SMXxUQRhMD3PJcQmPL WwYTE0VvHpOUKvKNTbrd7ZFALuYVK0VbB3NoUvFPSiXRAsZBmtWRGaEARySKQ5SHLbPGNrDV5LAiOeCV JjIBV9ARYwXAXeOQRjne9GJTBhIHF8LxS4GXMkYQWaYPPlKArbZOWqHDH0ICX1YQBrGZZvMS8UUlElTH NuJHjqKPIlDJWdKITggu8URBJfCTWrJZG7FnKeHOGy KQAzJVjsCSMcTFHqBQZ3LVDpBYEqFG8FXfJmLCKtYBGvDeKbYWSiZLWceo2YNPFkYQJnWLU1ZPJlXOPo GLEePLozZZUvCGU5WgmxWENyGSRgXA1OXhIfGJBuBEb3BKSlGYNzXXRxyk1TSJDpOWZzCPXrNfEaUDZx FGUyYCrbZFDkDDEyUWRxHRChOEZlJS6UZlIfGTTwHm U2VNygBHAsIPEfax2ASCZdGJMrXUEuUfRgZVCbYLTqQLsuJTMdPHF4AgIxWOZsVNObLO0GSgRwXBXpDq c6VVnnFFLtOXXobt4MDNFhTVDzUjp3IMFiGAMyYSGpJVxuKHOxMED1HmT6DAZpXRBiQI6CMoGhRVQxGl s7HLMzAOGtTXUyvz9AUSFoGPIvHMS9NFGkRVIbHBTi DSlzCBXyNWCbXUV9AXTsYYKjSV0JUeQfDRYlNuCkBGIjQUYbVJNsza7CDWGzEAIvXSW3CMCxOOHeETMn IYbhELBnWUTgYLs8HPLsFVSuFH9KKsBkSVVaUCGzCBcuJIRjUWQrrz0LADIuSWD9IkBrQLHlDMWmKSLa HQfhUMOyNMNoZcZ0FGRpYBSnOQ7NEsHnZOSvOBM3JB EpSTBbRHKvcx8FHLMbLZV3Xhv7BSNzRBQuNXBzGCvwXZUdJSYkWLV5CMYzYYUgMC3RQtWzNRVwLVSvLC TiXFVqLXXysq7PAGXaXYB9HYZ5QHIgKBIsCFReDZtkONIjQYQ6UlR2HCUbLZHoUI1QUpGaSNSkSYX0SC EsFRGvDAKyce4MMOKgVSG1JLp5AvFyHBFkSMPhCZle EKKjNAX8JwN8TZAjTBMfPQ6PWmIvRLQrVDe4DOSiMLQiVMJtnu9WXECsUZV1AoqxKjXvWJOsCJAdSJz4 fhVbsJLqQLm0QR7HP7XibvQzSMOXRe8Eq314YXTnBWTjWx4FP2ynVf3bPSVbCUSTRw1MBJc4HBWaNCRw WxOnESe4GSY8V4HiVkUtWVBwZHW4KBN5VgC+IDxlMm RdRIOfCmT9ZIc9TeewYQZgCBSvVwKuYPS8YMb7RV4wCQALRm5+NErgfBLldJueVOYLZuQ0EZtjMEpnHH VPRg0K ID Date Data Source [id number] 01/20/2021 07:50:37 AM EDT [facility] Name Value Range Interpretation Code Description Data Belinda rce(s) Supporting Document(s) Progress Note [facility] YWYIYi3bMnATAvAn87/KHTgnVBKgd7YhHNqcERb2UVwvGIIdE6DtLQI6yD6lKOG3PZvZScMlPoIjTFPy lbm ZvZdyKTgVqXSCpKsuJLxJdTOjwJqykgZNtOA3EhRS1GYKnO95dFHFjAPPrV0RzJMQ7JbY+Km5JPNIehY RkCH1HMfrG9Jjcr8iAIz8wtC/HWCHF3xCB2+TJIZNksInsoZQ5fK5jb3V4Mm7YDxtT8EZ8OjYzO2/h8S jGs25cwfzNQY5v+u0k9yXogzdt//6GWVcUOLC3G/3W U5yM5+ASefWQZZCmsu3zOeO9YNp+4xbKPO1U+/jMy0dn1XsJIlSupgwXn9yuPrPXPFnIFsvpi/jzIpzN BfGznJJYkzK4X/oMs0sHLCdTEq9x//OSZp0ZIfgvl10TZKOcZfK+AT6JDhFwWGqB8SugDAbpp6A99unU MsVCt54BE0m5FBisUpOZprhZ7hTam6cTAAM8yNzhBx XAYcbpjmaW18IWJCEBmF+Au2xzU3inF0vVEeIyBr0vxwG9vewmyf0J4gfJAY8ERr9UTIpKqbC8Enb7Iq 9Tj1YzMgmPSa6p6DNAfaxaC4DsE2hQUj4Jt2GRc3dNOALRm+HVx6sF8O2lQD4JW5hqiL7Kc/V4yhhs65 /gmtBncHEGJAOaXLtO58XbRmYyoUzW9mwH1YJpXcBg yXqb6bMrOe5pteNHMoJXORIA1atsH4S/[place]+JmxrCM7yyOGNLDDXafTUsMYhg+WgECWZgsGkoFyvpEII [file] ID Date Data Source [id number] 01/17/2021 05:06:14 PM EDT [facility] Name Value Range Interpretation Code Description Data Belinda rce(s) Supporting Document(s) Discharge Summary [facility] XQPEIh5kCdSVQySc43/JHFxyGORbx7XjGSjkEIi0ZMqbONVbQ3HgQXL3rW6sBNM0ZPlAViYtMrLpIOHm lbm [file] 7hU+S00u5rZcBF4glV7ZikXe4Chbh56mvGr3ahf/TCLs/qQ8vddaSOq2XBVo1Ga/5wGDP/J++ShQzT 50p2NC5ZIPpkut8rFNt79X3EZhuu6H82izHEljuNyyIqR3CfHiFWWvFsvxleSHr52oteXSLCxvkQnsrN 5nU7AUKO2GbmiIQsDhAfvkI5/k7egPI1bHj8Sm3272 x7bAt+ins7KIOwgbxkPP2mLMIahqxVum74SoOxlekfgfVmhLMFhY2vcwmR9k2bVt2oVKNrfmrWNFjYyB oTY1PxwyYlVmouVzASKbiJoBVKxZuYIJ6AhWfd3TnbGqOVghEj+TRbln9+/yva0LtB10tXIvUKIptpFP L1J0kk7+waeVNa2RQhxmFnAxpV3h4ukJkKNBo5+maria guadalupe [file] ICAgICAgICAgICAgICAgICAgICAgICAgICAgICAgIC AgICAgICAgICAgICAgICAgICAgICAgICAgICAgICAgICAgICAgDQogICAgICAgICAgICAgICAgICAgIC AgICAgICAgICAgICAgICAgICAgICAgICAgICAgICAgICAgICAgICAgICAgICAgICAgICAgICAgICAgIC AgICAgICAgICAgICAgICAgICAgDQogICAgICAgICAg ICAgICAgICAgICAgICAgICAgICAgICAgICAgICAgICAgICAgICAgICAgICAgICAgICAgICAgICAgICAg ICAgICAgICAgICAgICAgICAgICAgICAgICAgICAgDQogICAgICAgICAgICAgICAgICAgICAgICAgICAg ICAgICAgICAgICAgICAgICAgICAgICAgICAgICAgIC AgICAgICAgICAgICAgICAgICAgICAgICAgICAgICAgICAgICAgICAgDQogICAgICAgICAgICAgICAgIC AgICAgICAgICAgICAgICAgICAgICAgICAgICAgICAgICAgICAgICAgICAgICAgICAgICAgICAgICAgIC AgICAgICAgICAgICAgICAgICAgICAgDQogICAgICAg ICAgICAgICAgICAgICAgICAgICAgICAgICAgICAgICAgICAgICAgICAgICAgICAgICAgICAgICAgICAg ICAgICAgICAgICAgICAgICAgICAgICAgICAgICAgICAgDQogICAgICAgICAgICAgICAgICAgICAgICAg ICAgICAgICAgICAgICAgICAgICAgICAgICAgICAgIC AgICAgICAgICAgICAgICAgICAgICAgICAgICAgICAgICAgICAgICAgICAgDQogICAgICAgICAgICAgIC AgICAgICAgICAgICAgICAgICAgICAgICAgICAgICAgICAgICAgICAgICAgICAgICAgICAgICAgICAgIC AgICAgICAgICAgICAgICAgICAgICAgICAgDQogICAg ICAgICAgICAgICAgICAgICAgICAgICAgICAgICAgICAgICAgICAgICAgICAgICAgICAgICAgICAgICAg ICAgICAgICAgICAgICAgICAgICAgICAgICAgICAgICAgICAgDQogICAgICAgICAgICAgICAgICAgICAg ICAgICAgICAgICAgICAgICAgICAgICAgICAgICAgIC FoIZVyADDgCHDiYLJpFIQhYQMsYJLrVILzFIMuYWOoGMFfUYOuNXNkTAJlEWRzKVs6J7zqMDAiHVAcBZ 2yWNk4Um6+VRaGXtYeNJM8reGgxB2IXC4zt8PvXQdqQSUxf3HnQUy1ZL4VMSMiJUtoFV6UWUydzv6BTP PdQXMwmPNNl6geByLtLVP6WUJbXurgZC0PFGPqG6ob pgUmNQLqJMPSXYnrMAMPNNxoAWLQNEEaBSKwVtSlWbUdZOKpPFUxKXJDACA5MJLnHgFlMKWoXKQzVE8D FQOlG638eeSfXM2JSl4PIdHrFY2egr4VGqojADYfLxjBGqv3LYceSX4XnZVpkNM9BYWtGCDBEfTfK5eu z9YrJRToITUIVXxaOC0Yg0AgiBNpXXm+Fs9KQL0rr4 AiBPv6QPFpKP6wzk9SGCvUHbOtQ7XvuOlaDLFyc2PpRLUbOOPRlV3jFBQ1OKP1WQWvnXHaXACstTmpOR UVTBEmzTB1DoHsTfNfWwFcTKV1UcJaIT3hYAqfOP2CIMJ8NVtcABWnEBGkZ1sHVhJaJBP2OzPxdRupMH 0CRqMsB3IbvvHpfBZfOTNzXETLFs2+DQplbmRvYmoN FqSjLNEof3WmVMn0DG6RYENtEKhnBF0YAATvdM4bIXcxCA2OVbRhPqUqOBMVOhDkU88mwOScEUq7X8Cs YmVkZGVkRmlsZXMgPDwvTmFtZXMgWyBdDQogID4+ID4+EVufLH2UPBsxjcLvCLJaDw8XKHYsZAJcJK5h EYPlFKEcB7E7hMfwUFORFfWjF9mvjbebVM1wOWSlT3 76qOlcqlUkBGP0BDHeAz8OGLLwNOE5ZKBbkCYdUuagJYMIMLixRH5DmKZgFHF2xE3rNJpvHNSqSURxE7 kWBzNvtLnsKY67oMmpxmNlwXYnINz+Xy5FXY5xw9AwVAl9laZtNEzrXMBcCJnsCNKgGXIkKUKiVUO5BW M6EDSQFzUwHOWbAHMnCEupNIIkNCIjcp5HQSRxOBD5 SBrdSWWxDDFfSOLwWGgyRSUwVSAmUsHnOIEnRKAlRE7ECaNwMOTiGHDqFLfmXMTpRTNxcg3SFGQsOOIo ODP0JzGnAYPuKHXrAPwiKDMgTXF8GHuiJXHnQBMnTY9ZZpDbPGRgXPj9CTHjZYUcVIOkqx8ZESYgMIMn NSs5TfFqHBBpSLLfVHvoDMBsENS3CxI7YLVkRUFyYC 5HLrVpXAHhRVX5LuuoFATnRTAkfx8XBOUqQFFtEgl8SgRaVTNuZHMpBMqkDYPcWYY9APq8SZAuTOUsDZ 9RWyBrKHUgMwMqBHWeTEEcFSFgvo5IVABrETIsBrNxHRKgPUMbFBIbHZsqYGXsAZX9BALtKXYgKKXhEW 1ZRdQjIIZcBlVtWNneEEQiGMOiuc7KACYgIUNmTFK5 WYPbMDSoVAGdOPreSQSnIUY9UYr2FIFoNMFjKP4BApFaOAYyDmt8BomkDMWaEKQukr9FVIJkIULxDUoe NbGyIFLnEPDjFUwrSZMiOTImOiwwZRUcPSBnOM4XCuBuYWVbKtL9LAQyZCVqXDKoly3WUEJsKJGaSRX2 AuEjPCIxTVQgQVwfNGHbEBAlYXRuMRQcDNBeRF2DRq YmKIZsNoMlKaAkZRYaPHUvig9BVFGiLCIdVmXtFhGxTGOfGTBkKXdmFVBrPKDoAamvENHoLKAjFB7RXi XsAENsKrD0DnwgTZGtAPSjvg9ZZTVhCDQuHoo6AdFvDTKmJLNiJPgeZBZiQWH3DjAmMPLaWWFyVU5GVi FuUNLzBmL2DtTdZAJfSGYimg8ISJCsGENwAWLwFhKz WFJtBVNeKRbcJIUzBBF4WGmsUYLvZUYtHG3NTfOwMRQxBEMpQQBxOZWfHHDfan6OOQLzPVY7ALJpTfTk BIZrOJGqZImfVSTeTRRqViYvKTFbDFMlNY9FArCxPROiRGZ0IRggLNXwEHUccj2OFEPpLQO2LZKyXfEe NWBuYAJgVApsZCKeLSMvKNC2CPCdOLEhRZ1OPrPtFT ExITO7HiopQCTuRZRacc5MAJCgUYB7ThOsBwMeRURkSDUdDLp0rvYomEZqTPu8GN3DH4AlgcJpYHVKWd 7Ne295FNJeNYWdSw5UK3vmVf5tMNQbTRUWEc9PQRo9KEPfB9J5WiVsFTD6HSWxXzsdVHFnFBS0VcCzMQ Q2OGU+EDuqMOBkPTk1QJEtGIejM1Q3IRR4GHC4AJvl ZeE5RWH8RW0hTPIPJp0+XKwuqJFyiPmaUASOKaLqXhclHEwbIKJNZh8D ID Date Data Source [id number] 01/17/2021 09:26:35 AM EDT [facility] Name Value Range Interpretation Code Description Data Belinda rce(s) Supporting Document(s) Consultation [facility] JTBJMl6dUtCOQqZc75/XJVqqOQNmb0BrMPzdDMg0SLswRUFoS9PgABA9tG7eAUO6HFwCYtUeOaLfTIZu lbm [file] 2xBYQIOk1+ONwanUOnzBmwLAVFUlR2BKYsLJxgGZRNJx4X ID Date Data Source [id number] 01/17/2021 04:06:10 AM EDT [facility] Name Value Range Interpretation Code Description Data Belinda e(s) Supporting Document(s) Leukocytes [#/volume] in Blood by Automated count 6.5 10*3/uL 4-10 [facility] Erythrocytes [#/volume] in Blood by Automated count 3.07 10*6/uL 4.6- 6.[address] [facility] Hemoglobin [Mass/volume] in Blood 8.8 g/dL 13.5-[address] [facility] Hematocrit [Volume Fraction] of Blood by Automated count 27.2 % 4 1-[address] [facility] Erythrocyte mean corpuscular volume [Entitic volume] by Auto mated count 88.6 fL 80-96 [facility] Erythrocyte mean corpuscular hemoglobin [Entitic mass] by Automated count 28.8 pg 27-33 [facility] Erythrocyte mean corpuscular hemoglobin concentration [Mass/volume] by Automated count 32.5 g[facility].0[facility] width [Ratio] by Automated count 15.6 % 11.5-14.[address] [facility] Platelets [#/volume] in Blood by Automated count 395 10*3/uL 150-400 [facility] Differential cell count method - Blood [facility] Neutrophils/100 leukocytes in Blood by Automated count 77 % [facility] Lymphocytes/100 leukocytes in Blood by Automated count 15 % [facility] Monocytes/100 leukocytes in Blood by Automated count 6 % [facility] Eosinophils/100 leukocytes in Blood by Automated count 1 % [facility] Basophils/100 leukocytes in Blood by Automated count 1 % [facility] Neutrophils [#/volume] in Blood by Automated count 5.03 10*3/uL 1.8-[address] [facility] Lymphocytes [#/volume] in Blood by Automated count 0.98 10*3/uL 1.2-[address] [facility] Monocytes [#/volume] in Blood by Automated count 0.37 10*3/uL 0-0.8 [facility] Eosinophils [#/volume] in Blood by Automated count 0.07 10*3/uL 0-0.5 [facility] Basophils [#/volume] in Blood by Automated count 0.03 10*3/uL 0-0.2 [facility] Nucleated erythrocytes/100 leukocytes [Ratio] in Blood by Automated count 0 /100{WBCs} 0-0 [facility] ID Date Data Source [id number] 01/17/2021 04:23:35 AM [facility] Name Value Range Interpretation Code Description Data Belinda rce(s) Supporting Document(s) Bicarbonate [Moles/volume] in Serum 21 mmol/L 22-[address] [facility] Chloride [Moles/volume] in Serum or Plasma 110 mmol/L 98-[address] [facility] Creatinine [Mass/volume] in Serum or Plasma 1.16 mg/dL 0.70-1.20 [facility] Glucose [Mass/volume] in Serum or Plasma 101 mg/dL 70-140 [facility] Potassium [Moles/volume] in Serum or Plasma 3.6 mmol/L 3.4-5.1 [facility] Sodium [Moles/volume] in Serum or Plasma 143 mmol/L 136-145 [facility] Urea nitrogen [Mass/volume] in Serum or Plasma 7 mg/dL 8-23 L [facility] Anion gap 3 in Serum or Plasma 12 mmol/L 8-15 [facility] Osmolality of Serum or Plasma by calculation 294 mosm/kg 275-300 [facility] Creatinine/Urea nitrogen [Mass Ratio] in Serum or Plasma 6 [facility] Calcium [Mass/volume] in Serum or Plasma 9.3 mg/dL 8.6-10.0 [facility] Glomerular filtration rate/1.73 sq M pre dicted among non-blacks [Volume Rate/Area] in Serum or Plasma by Creatinine-based formula (MDRD) 67 mL/min/1.73m2 >60 [facility] Glomerular filtration rate/1.73 sq M pre dicted among blacks [Volume Rate/Area] in Serum or Plasma by Creatinine-based formula (MDRD) 77 mL/min/1.73m2 >60 [facility] ID Date Data Source [id number] 01/17/2021 04:23:[address] [facility] Name Value Range Interpretation Code Description Data Belinda rce(s) Supporting Document(s) Magnesium [Mass/volume] in Serum or Plasma 1.5 mg/dL 1.6-2.[address] [facility] ID Date Data Source [id number] 01/16/2021 03:50:[address] [facility] Name Value Range Interpretation Code Description Data Belinda rce(s) Supporting Document(s) Leukocytes [#/volume] in Blood by Automated count 8.8 10*3/uL 4-10 [facility] Erythrocytes [#/volume] in Blood by Automated count 3.02 10*6/uL 4.6- 6.[address] [facility] Hemoglobin [Mass/volume] in Blood 9.0 g/dL 13.5-[address] [facility] Hematocrit [Volume Fraction] of Blood by Automated count 26.7 % 4 1-[address] [facility] Erythrocyte mean corpuscular volume [Entitic volume] by Auto mated count 88.3 fL 80-96 [facility] Erythrocyte mean corpuscular hemoglobin [Entitic mass] by Automated count 29.7 pg 27-33 [facility] Erythrocyte mean corpuscular hemoglobin concentration [Mass/volume] by Automated count 33.6 g/dL 32.0-36.[facility] distribution width [Ratio] by Automated count 16.3 % 11.5-14.[address] [facility] Platelets [#/volume] in Blood by Automated count 424 10*3/uL 150-[address] [facility] Differential cell count method - Blood [facility] Neutrophils/100 leukocytes in Blood by Automated count 79 % [facility] Lymphocytes/100 leukocytes in Blood by Automated count 14 % [facility] Monocytes/100 leukocytes in Blood by Automated count 6 % [facility] Eosinophils/100 leukocytes in Blood by Automated count 1 % [facility] Basophils/100 leukocytes in Blood by Automated count 0 % [facility] Neutrophils [#/volume] in Blood by Automated count 6.98 10*3/uL 1.8-[address] [facility] Lymphocytes [#/volume] in Blood by Automated count 1.22 10*3/uL 1.2-[address] [facility] Monocytes [#/volume] in Blood by Automated count 0.48 10*3/uL 0-0.8 [facility] Eosinophils [#/volume] in Blood by Automated count 0.05 10*3/uL 0-0.5 [facility] Basophils [#/volume] in Blood by Automated count 0.03 10*3/uL 0-0.2 [facility] Nucleated erythrocytes/100 leukocytes [Ratio] in Blood by Automated count 0 /100{WBCs} 0-0 [facility] ID Date Data Source [id number] 01/16/2021 03:56:45 AM EDT [facility] Name Value Range Interpretation Code Description Data Belinda rce(s) Supporting Document(s) Bicarbonate [Moles/volume] in Serum 20 mmol/L 22-[address] [facility] Chloride [Moles/volume] in Serum or Plasma 107 mmol/L 98-107 [facility] Creatinine [Mass/volume] in Serum or Plasma 1.10 mg/dL 0.70-1.20 [facility] Glucose [Mass/volume] in Serum or Plasma 104 mg/dL 70-140 [facility] Potassium [Moles/volume] in Serum or Plasma 4.3 mmol/L 3.4-5.1 [facility] Sodium [Moles/volume] in Serum or Plasma 140 mmol/L 136-145 [facility] Urea nitrogen [Mass/volume] in Serum or Plasma 8 mg/dL 8-23 [facility] Anion gap 3 in Serum or Plasma 13 mmol/L 8-15 [facility] Osmolality of Serum or Plasma by calculation 289 mosm/kg 275-300 [facility] Creatinine/Urea nitrogen [Mass Ratio] in Serum or Plasma 7 [facility] Calcium [Mass/volume] in Serum or Plasma 9.6 mg/dL 8.6-10.0 [facility] Glomerular filtration rate/1.73 sq M pre dicted among non-blacks [Volume Rate/Area] in Serum or Plasma by Creatinine-based formula (MDRD) 71 mL/min/1.73m2 >60 [facility] Glomerular filtration rate/1.73 sq M pre dicted among blacks [Volume Rate/Area] in Serum or Plasma by Creatinine-based formula (MDRD) 82 mL/min/1.73m2 >60 [facility] ID Date Data Source [id number] 01/16/2021 03:56:[address] [facility] Name Value Range Interpretation Code Description Data Belinda rce(s) Supporting Document(s) Magnesium [Mass/volume] in Serum or Plasma 1.8 mg/dL 1.6-2.6 [facility] ID Date Data Source [id number] 01/15/2021 07:55:[address] [facility] Name Value Range Interpretation Code Description Data Belinda rce(s) Supporting Document(s) Leukocytes [#/volume] in Blood by Automated count 11.5 10*3/uL 4-[address] [facility] Erythrocytes [#/volume] in Blood by Automated count 3.31 10*6/uL 4.6- 6.[address] [facility] Hemoglobin [Mass/volume] in Blood 9.7 g/dL 13.5-[address] [facility] Hematocrit [Volume Fraction] of Blood by Automated count 29.4 % 4 1-[address] [facility] Erythrocyte mean corpuscular volume [Entitic volume] by Auto mated count 88.9 fL 80-96 [facility] Erythrocyte mean corpuscular hemoglobin [Entitic mass] by Automated count 29.2 pg 27-33 [facility] Erythrocyte mean corpuscular hemoglobin concentration [Mass/volume] by Automated count 32.9 g/dL 32.0-36.0 [facility] Erythrocyte distribution width [Ratio] by Automated count 15.8 % 11.5-14.[address] [facility] Platelets [#/volume] in Blood by Automated count 472 10*3/uL 150-[address] [facility] ID Date Data Source [id number] [facility]/15[facility]2021 [facility] Value Range Interpretation Code Description Data Belinda rce(s) Supporting Document(s) Calcium.ionized [Moles/volume] in Arterial blood 1.46 mmol/L 1.13-1.[address] [facility] ID Date Data Source [id number] 01/15/2021 01:48:[address] [facility] Name Value Range Interpretation Code Description Data Belinda rce(s) Supporting Document(s) Albumin [Mass/volume] in Serum or Plasma by Bromocresol green (BCG) dye binding method 2.6 g/dL 3.5-5.2 L [facility] al ID Date Data Source [id number] 01/15/2021 01:48:[address] [facility] Name Value Range Interpretation Code Description Data Belinda rce(s) Supporting Document(s) Phosphate [Mass/volume] in Serum or Plasma 2.1 mg/dL 2.5-4.[address] [facility] ID Date Data Source [id number] 01/18/2021 04:15:[address] [facility] CYTOPATHOLOGY REPORTName: KIERSTEN LEDEZMAMRN: [id number] Number: [id number] Date: 01/15/2021 12:45Received Date: 01/17/2021 11:31Physician(s): VIN TORRES MD POIESZ, BERNARD J, MD Specimen(s) ReceivedA: URINE, CATHETERIZEDClinical History:Evaluate for malignancy. History of malignancy per requisition. [id number]. DiagnosisURINE, CATHETERIZED: NEGATIVE FOR HIGH-GRADE UROTHELIAL CARCINOMAComment/pf/calReviewing Cytotech: BARBIE Brown (ASCP)Danae Christian MDElectronically Signed By Emeli Jones M.D. 01/18/2021 16:15:46The attending pathologist named above attests that he/she has personallyreviewed the relevant preparation(s) for the specimen(s) and rendered thefinal diagnosis. Microscopic DescriptionThe specimen is composed of few benign urothelial cells, abundantneutrophils, debris and blood./pf Gross Jfeetrqbmsa33 ml clear pale-yellow fluid received: 1 Thin-layer Pap stained slideprepared by filter preparation. This report may include one or more immunohistochemical stain results thatuse analyte specific reagents. All positive and negative controls havebeen reviewed by the attending pathologist and are satisfactory. The testswere developed and their performance ch aracteristics determined by [facility] Pathololgy department. They have not been cleared or approved by Andrew Food and Drug Administration. The FDA has determined that suchclearance or approval is not necessary. Name Value Range Interpretation Code Description Data Belinda rce(s) Supporting Document(s) ID Date Data Source [id number] 01/15/2021 12:16:[address] [facility] Name Value Range Interpretation Code Description Data [facility](s) Supporting Document(s) [facility] NOSCVx0fFcHAFpNi55/CRIcpUUDxw0ZtYEbeUJx1UGmnWTBjX4GmTED0mT0xBLZ9DZdNCxWkQcQqEJD5 m [file] J5AfNgLHZhW2AfJPMtJXY7AxTiQoM4EsLcSB4DZt0CJjT0MNT5lRHmYp2PEIE3OqfNTpYmRZ6VFKb= ID Date Data Source [id number] 01/17/2021 07:02:[address] [facility] Name Value Range Interpretation Code Description Data Belinda rce(s) Supporting Document(s) ABO and Rh group [Type] in Blood [facility] Blood group antibody screen [Presence] in Serum or Plasma [facility] Performed at [facility], [address] [place], [id number] [place] [address] ID Date Data Source [id number] 01/15/2021 12:52:10 PM [facility] Value Range Interpretation Code Description Data Belinda rce(s) Supporting Document(s) ABO and Rh group [Type] in Blood [facility] Blood bank comment [facility] ID Date Data Source [id number] 01/15/2021 12:50:29 AM EDT [facility] Value Range Interpretation Code Description Data Belinda rce(s) Supporting Document(s) Leukocytes [#/volume] in Blood by Automated count 7.5 10*3/uL 4-10 [facility] Erythrocytes [#/volume] in Blood by Automated count 2.41 10*6/uL 4.6- 6.[address] [facility] Hemoglobin [Mass/volume] in Blood 6.9 g/dL 13.5-[address] [facility] Hematocrit [Volume Fraction] of Blood by Automated count 21.2 % 4 1-[address] [facility] Erythrocyte mean corpuscular volume [Entitic volume] by Auto mated count 88.0 fL 80-96 [facility] Erythrocyte mean corpuscular hemoglobin [Entitic mass] by Automated count 28.8 pg 27-33 [facility] Erythrocyte mean corpuscular hemoglobin concentration [Mass/volume] by Automated count 32.8 g/dL 32.0-36.[facility] width [Ratio] by Automated count 16.4 % 11.5-14.[address] [facility] Platelets [#/volume] in Blood by Automated count 380 10*3/uL 150-400 [facility] Differential cell count method - Blood [facility] Neutrophils/100 leukocytes in Blood by Automated count 83 % [facility] Lymphocytes/100 leukocytes in Blood by Automated count 11 % [facility] Monocytes/100 leukocytes in Blood by Automated count 6 % [facility] Eosinophils/100 leukocytes in Blood by Automated count 0 % [facility] Basophils/100 leukocytes in Blood by Automated count 0 % [facility] Neutrophils [#/volume] in Blood by Automated count 6.22 10*3/uL 1.8-[address] [facility] Lymphocytes [#/volume] in Blood by Automated count 0.80 10*3/uL 1.2-[address] [facility] Monocytes [#/volume] in Blood by Automated count 0.45 10*3/uL 0-0.8 [facility] Eosinophils [#/volume] in Blood by Automated count 0.02 10*3/uL 0-0.5 [facility] Basophils [#/volume] in Blood by Automated count 0.03 10*3/uL 0-0.2 [facility] Nucleated erythrocytes/100 leukocytes [Ratio] in Blood by Automated count 0 /100{WBCs} 0-0 [facility] ID Date Data Source [id number] 01/15/2021 01:05:17 AM EDT [facility] Name Value Range Interpretation Code Description Data Belinda rce(s) Supporting Document(s) Bicarbonate [Moles/volume] in Serum 21 mmol/L 22-[address] [facility] Chloride [Moles/volume] in Serum or Plasma 106 mmol/L 98-107 [facility] Creatinine [Mass/volume] in Serum or Plasma 0.97 mg/dL 0.70-1.20 [facility] Glucose [Mass/volume] in Serum or Plasma 114 mg/dL 70-140 [facility] Potassium [Moles/volume] in Serum or Plasma 3.3 mmol/L 3.4-5.[address] [facility] Sodium [Moles/volume] in Serum or Plasma 138 mmol/L 136-145 [facility] Urea nitrogen [Mass/volume] in Serum or Plasma 8 mg/dL 8-23 [facility] Anion gap 3 in Serum or Plasma 11 mmol/L 8-15 [facility] Osmolality of Serum or Plasma by calculation 285 mosm/kg 275-300 [facility] Creatinine/Urea nitrogen [Mass Ratio] in Serum or Plasma 8 [facility] Calcium [Mass/volume] in Serum or Plasma 10.0 mg/dL 8.6-10.0 [facility] Glomerular filtration rate/1.73 sq M pre dicted among non-blacks [Volume Rate/Area] in Serum or Plasma by Creatinine-based formula (MDRD) 88 mL/min/1.73m2 >60 [facility] Glomerular filtration rate/1.73 sq M pre dicted among blacks [Volume Rate/Area] in Serum or Plasma by Creatinine-based formula (MDRD) >60 [facility] ID Date Data Source [id number] 01/19/2021 10:45:08 AM EDT [facility] Service Cmnt XXX-Imp : L WRISTMicroorgan ism XXX Cult : No growth 5 days Name Value Range Interpretation Code Description Data Belinda rce(s) Supporting Document(s) ID Date Data Source [id number] 01/14/2021 03:34:40 PM EDT [facility] CT ABDOMEN PELVIS WITHOUT CONTRAST [id number] FINAL RESULTInterpreted by:Vivek Lang MDPROCEDURE INFORMATION: Exam: CT Abdomen And Pelvis Without [...] Name Value Range Interpretation Code Description Data [facility] Document[facility]s) ID Date Data Source [id number] 01/14/2021 01:33:03 PM EDT [facility] Name Value Range Interpretation Code Description Data Belinda rce(s) Supporting Document(s) Progress Note [facility] LFHNBa5aHcIPInTf12/XQLcmENLkq7LfCHybCQz2ZTpxXUVbB0IbFSC8gQ9sSHF8LZmSOtPpZoClWBK3 lbm [file] DQo+Ud5Uj5IberT8ryXcFGxxGQW2KY8BIMKHJ8ODPy== ID Date Data Source [id number] 01/19/2021 10:45:08 AM EDT [facility] Service Cmnt XXX-Imp : RACMicroorganism XXX Cult : No growth 5 days Name Value Range Interpretation Code Description Data Belinda rce(s) Supporting Document(s) ID Date Data Source [id number] 01/22/2021 03:06:13 PM EDT [facility] Name Value Range Interpretation Code Description Data Belinda rce(s) Supporting Document(s) Pyridoxine [Mass/volume] in Serum or Plasma 3.0 ug/L 5.3-46.[address] [facility] (NOTE)Verified by repeat analysisThi s test was developed and its performance characteristicsdetermined by [employer]. It has not been cleared or approvedby the Food and Drug Administration.Performed At: [address] [id number] Sanjai MD Ph:[phone] ID Date Data Source [id number] 01/14/2021 09:58:14 AM EDT [facility] Name Value Range Interpretation Code Description Data Belinda rce(s) Supporting Document(s) [facility] DJFVQc3hVeGUNcKe83/EMFdrHCIwe0DeQLjdOTu3MAfdTGTaZ0DlFUT8rU2eBRD3MTpGIfFfVlVgDTK9 lbm [file] SAL[employer]PERATIONS CON[employer]ULTANT/8rWgWrdNHLqiTPXKKKo5sUXjjZqfw0Gd9wHxduf6OaaslwyXIAToX0O3eMZJlDmUlQC6ltXGHqNKY [file] ICAgICAgICAgICAgICAgICAgICAgICAgICAgICAgICAgICAgICAgICAgICAgICAgICAgICAgICAgICAg ICAgICAgICAgICAgICAgICAgICAgICAgICAgICAgICAgICAgICANCiAgICAgICAgICAgICAgICAgICAg ICAgICAgICAgICAgICAgICAgICAgICAgICAgICAgIC AgICAgICAgICAgICAgICAgICAgICAgICAgICAgICAgICAgICAgICAgICAgICAgICANCiAgICAgICAgIC AgICAgICAgICAgICAgICAgICAgICAgICAgICAgICAgICAgICAgICAgICAgICAgICAgICAgICAgICAgIC AgICAgICAgICAgICAgICAgICAgICAgICAgICAgICAN CiAgICAgICAgICAgICAgICAgICAgICAgICAgICAgICAgICAgICAgICAgICAgICAgICAgICAgICAgICAg ICAgICAgICAgICAgICAgICAgICAgICAgICAgICAgICAgICAgICAgICANCiAgICAgICAgICAgICAgICAg ICAgICAgICAgICAgICAgICAgICAgICAgICAgICAgIC AgICAgICAgICAgICAgICAgICAgICAgICAgICAgICAgICAgICAgICAgICAgICAgICAgICANCiAgICAgIC AgICAgICAgICAgICAgICAgICAgICAgICAgICAgICAgICAgICAgICAgICAgICAgICAgICAgICAgICAgIC AgICAgICAgICAgICAgICAgICAgICAgICAgICAgICAg ICANCiAgICAgICAgICAgICAgICAgICAgICAgICAgICAgICAgICAgICAgICAgICAgICAgICAgICAgICAg ICAgICAgICAgICAgICAgICAgICAgICAgICAgICAgICAgICAgICAgICAgICANCiAgICAgICAgICAgICAg ICAgICAgICAgICAgICAgICAgICAgICAgICAgICAgIC AgICAgICAgICAgICAgICAgICAgICAgICAgICAgICAgICAgICAgICAgICAgICAgICAgICAgICANCiAgIC AgICAgICAgICAgICAgICAgICAgICAgICAgICAgICAgICAgICAgICAgICAgICAgICAgICAgICAgICAgIC AgICAgICAgICAgICAgICAgICAgICAgICAgICAgICAg ICAgICANCiAgICAgICAgICAgICAgICAgICAgICAgICAgICAgICAgICAgICAgICAgICAgICAgICAgICAg ICAgICAgICAgICAgICAgICAgICAgICAgICAgICAgICAgICAgICAgICAgICAgICANCjw/iUGsD1ahlZCe wzG3B0tiLl4XEj9NAP2ot9GtCFGvOXkllcHjRgmZBl MmYJMgBixNSjn9XUejRG7UcIMhI6LtX2YiTYymUB6SQVRrISSxgINeBFNmAGTdNfB7EADdXZgjYG8SoH XxAZluIICrGYXjOpWtTFMnUAPoQIMpMNNbFIQVGM3OJvYyD6AsgP00RCLXWs6+DQplbmRvYmoNCjMxID Egc2VvROf4JP4ZKMSaAbvuj2UeWbKgTUGWLGepNR7Z ORE2LMVeQMLmIs7BOOUoA955ttPcBI9YKt5BNcWxRI1sel2JMjQlIERqAplYCen0YNlwZN5JeRDwPYnX r44ooOn8ktYrkYUPCPDrmcW8FSVmRs3mKAY2KCCGDWXxnJV3KyC6KxAdUdVaSSb6MKLpNW2sNIhkMM0Q SJL4ERbaPDHzJSVhD8sMBfWiSDG6QaIbwEsoJL4SUd RbO5QzeoNghHBzFCFePKQLLo8+VIygqgCgOylXZxDtYQAwp8CtSLu2AK3VAUBiRSfoES9AYTJknF6mIC utHV1QYwDxYGGpKOJWBcExL54eqRWfXUo8X3ZdUtRgPTAaYeqiUPLcJFgoIgXwBCYiKqEkQEosND6+ID 4+GLfmBY3MHKgyxmPyRSBzVl9DUBEzLLEfDG8sJJXj VRHkB8U6nMgqMYRBMiVjA5tbuzcdXH5hKAEcT762cPmbadCeWDRkBRWsNq6FHAVnEAM0IQZcmDUoQyWv YTAMBWhjMC5EqZWwEQP6kP7eZFoyEAIpCYLpG5wVOmPnnFrcKX69wZyigcFlyYVmGDk+Zl5BST0eo6Ky QPt8qwZvSCyvOHS2LDhkWBYaSUXdHCNiKAK1GRI2DZ XOYvTeDJZmZXKyXFuyZMNeGWAxui1USVPlZIArMmFwSGCxKUEnAZOfOTcjHPIfGYT6JdvqSOZnXDXqOC 7KRsWxFSZjRCSjYIfvWFFzKAMexq6YMMOyPBBiTGY3NZIdTGFkPSEaIZsuGUSwVMZ4RbErWSAmLBUsFZ 0TZvUsBROiZKl8CGDoWOZxEBKjyf1AMLWxDJBpPVMw NyCbAVNtROWxTHaxIRDoYMVtHzN6YNNyUYBuIL6LQyMvJDOoIVG8OzIrRFCaMDQmja0FRRVvZYMpZOko LjZmXUDlNCMdOFbfEOLtOTC6GKQsSDDyKUHqXR0THwNzLKDiSGE6OVWuYMRgVTJzce0NRXTiYADdGhJ9 OLKbUSQkUNCoCKldLDBoRTF2FeuoPMEhBCHaKH3MSi XjIMToUCqoONDzOACyIJRtsj6NIOQiCLGdDnV7InPvLFNrKDRjAEinBYNdABZ1WfUkBLTtRFJjDQ9JDy HmHNLpEVe0GUKdVYHtWXOsvg0LNMNuQAXbEGd1NoVsEKNpAAFiSNbbVPJnYYW5HYjzJNVbUZFoQG7UCm ZtZGPqPJy8VDGfYYKgMFOftp8RURYaKVMxKUWfRfWd YZZkETZiXDqdTMWrIORxZeQtRCSvQCGxYE2XVpGrJRLpUuR5ADOsGRGtNVSkzm4CXXZiCPXgPlMoFsSr GKLtRCPnGTviIODxOUAhApKwRYInNTMgOB5YPqTyJLNyXnB3EsCySHEpWFAiwi5CWCYpVGJqHoTbEvFj IMCqHACfFQiuYTEkCRCrLGVaJOOnAMRjCY9NIjGnMI NsKzV3ZCtdQEIqTTHefv2DFFEqHFYrAIZ2CDVsPARuENGmNUbqNFBgDMV4UaJnGNSmUQVyFH0WWqVoPF jbQBMDTsa7UZmaQ1x4EUFtXD7KW1Cda3ApShTmTNCLRHgcDK9rtmDsEHLwAu8PD2lLOsomJ7MgJFBpPC Z4TvbnHACuHQXfETmqSMRkONUnLdu3LJ9tSCA1CqOt NNG6UmI4FIY4HbO6SzNtHEX8UfBdSWNhBhs4AeHtRB4LQd8WYzS5BVW4aEJfVk0BTkI9WwyCNzPtYH3L DQo= ID Date Data Source [id number] 01/14/2021 08:56:02 AM EDT [facility] NEPHROSTOMY INSERTION CHANGEFINAL RES ULTInterpreted by:Sae Charles [...] The needle was removed and a 6 Sami coaxial dilator and sheath system was placed [...] rce(s) Supporting Document(s) ID Date Data Source [id number] 01/14/2021 09:45:47 AM EDT [facility] Service Cmnt XXX-Imp : NoneGI Panel : [...] rce(s) Supporting Document(s) ID Date Data Source [id number] 01/14/2021 05:46:37 AM EDT [facility] Name Value Range Interpretation Code Description Data Belinda rce(s) Supporting Document(s) Bicarbonate [Moles/volume] in Serum 20 mmol/L 22-[address] [facility] Chloride [Moles/volume] in Serum or Plasma 103 mmol/L 98-107 [facility] Creatinine [Mass/volume] in Serum or Plasma 1.15 mg/dL 0.70-1.20 [facility] Glucose [Mass/volume] in Serum or Plasma 116 mg/dL 70-140 [facility] Potassium [Moles/volume] in Serum or Plasma 3.4 mmol/L 3.4-5.1 [facility] Sodium [Moles/volume] in Serum or Plasma 136 mmol/L 136-145 [facility] Urea nitrogen [Mass/volume] in Serum or Plasma 10 mg/dL 8-23 [facility] Anion gap 3 in Serum or Plasma 12 mmol/L 8-15 [facility] Osmolality of Serum or Plasma by calculation 281 mosm/kg 275-300 [facility] Creatinine/Urea nitrogen [Mass Ratio] in Serum or Plasma 9 [facility] Calcium [Mass/volume] in Serum or Plasma 11.1 mg/dL 8.6-10.[address] [facility] Glomerular filtration rate/1.73 sq M pre dicted among non-blacks [Volume Rate/Area] in Serum or Plasma by Creatinine-based formula (MDRD) 67 mL/min/1.73m2 >60 [facility] Glomerular filtration rate/1.73 sq M pre dicted among blacks [Volume Rate/Area] in Serum or Plasma by Creatinine-based formula (MDRD) 78 mL/min/1.73m2 >60 [facility] ID Date Data Source [id number] 01/14/2021 06:34:47 AM EDT [facility] Name Value Range Interpretation Code Description Data Belinda rce(s) Supporting Document(s) Leukocytes [#/volume] in Blood by Automated count 11.4 10*3/uL 4-[address] [facility] Erythrocytes [#/volume] in Blood by Automated count 2.75 10*6/uL 4.6- 6.[address] [facility] Hemoglobin [Mass/volume] in Blood 7.8 g/dL 13.5-[address] [facility] Hematocrit [Volume Fraction] of Blood by Automated count 24.0 % 4 1-[address] [facility] Erythrocyte mean corpuscular volume [Entitic volume] by Auto mated count 87.6 fL 80-96 [facility] Erythrocyte mean corpuscular hemoglobin [Entitic mass] by Automated count 28.3 pg 27-33 [facility] Erythrocyte mean corpuscular hemoglobin concentration [Mass/volume] by Automated count 32.3 g/[facility] 32.0[facility] Obtain Results Erythrocyte distribution width [Ratio] by Automated count 16.5 % 11.5-14.[address] [facility] Platelets [#/volume] in Blood by Automated count 407 10*3/uL 150-[address] [facility] Differential cell count method - Blood [facility] Neutrophils/100 leukocytes in Blood by Automated count 88 % [facility] Lymphocytes/100 leukocytes in Blood by Automated count 8 % [facility] Monocytes/100 leukocytes in Blood by Automated count 4 % [facility] Eosinophils/100 leukocytes in Blood by Automated count 0 % [facility] Basophils/100 leukocytes in Blood by Automated count 0 % [facility] Neutrophils [#/volume] in Blood by Automated count 10.02 10*3/uL 1.8- 7.[address] [facility] Lymphocytes [#/volume] in Blood by Automated count 0.91 10*3/uL 1.2-[address] [facility] Monocytes [#/volume] in Blood by Automated count 0.46 10*3/uL 0-0.8 [facility] Eosinophils [#/volume] in Blood by Automated count 0.01 10*3/uL 0-0.5 [facility] Basophils [#/volume] in Blood by Automated count 0.03 10*3/uL 0-0.2 [facility] Nucleated erythrocytes/100 leukocytes [Ratio] in Blood by Automated count 0 /100{WBCs} 0-0 [facility] ID Date Data Source [id number] 01/16/2021 10:54:50 AM EDT [facility] Service Cmnt XXX-Imp : NoneMicroorganism XXX Cult : No growth 3 days Name Value Range Interpretation Code Description Data Belinda rce(s) Supporting Document(s) ID Date Data Source [id number] 01/14/2021 11:01:20 AM EDT [facility] Service Cmnt XXX-Imp : NoneMicroorganism XXX Cult : Test Not Performed.Improper Tube/Specimen Type Name Value Range Interpretation Code Description Data Belinda rce(s) Supporting Document(s) ID Date Data Source [id number] 01/13/2021 03:47:21 PM EDT [facility] Name Value Range Interpretation Code Description Data Belinda rce(s) Supporting Document(s) Consultation [facility] OEYNGy5dDzLEGgHp99/GOJjmRIYlt0HpSKxxNDa3CHdlTXXfP7GqDJF8tL8yGUJ6TSlVOcMrXhDoGWQ1 lbm [file] ICAgICAgICAgICAgICAgICAgICAgICAgICAgICAgIC AgICAgICAgICAgICAgICAgICAgICAgICAgICAgICAgDQogICAgICAgICAgICAgICAgICAgICAgICAgIC AgICAgICAgICAgICAgICAgICAgICAgICAgICAgICAgICAgICAgICAgICAgICAgICAgICAgICAgICAgIC AgICAgICAgICAgICAgDQogICAgICAgICAgICAgICAg ICAgICAgICAgICAgICAgICAgICAgICAgICAgICAgICAgICAgICAgICAgICAgICAgICAgICAgICAgICAg ICAgICAgICAgICAgICAgICAgICAgICAgDQogICAgICAgICAgICAgICAgICAgICAgICAgICAgICAgICAg ICAgICAgICAgICAgICAgICAgICAgICAgICAgICAgIC AgICAgICAgICAgICAgICAgICAgICAgICAgICAgICAgICAgDQogICAgICAgICAgICAgICAgICAgICAgIC AgICAgICAgICAgICAgICAgICAgICAgICAgICAgICAgICAgICAgICAgICAgICAgICAgICAgICAgICAgIC AgICAgICAgICAgICAgICAgDQogICAgICAgICAgICAg ICAgICAgICAgICAgICAgICAgICAgICAgICAgICAgICAgICAgICAgICAgICAgICAgICAgICAgICAgICAg ICAgICAgICAgICAgICAgICAgICAgICAgICAgDQogICAgICAgICAgICAgICAgICAgICAgICAgICAgICAg ICAgICAgICAgICAgICAgICAgICAgICAgICAgICAgIC AgICAgICAgICAgICAgICAgICAgICAgICAgICAgICAgICAgICAgDQogICAgICAgICAgICAgICAgICAgIC AgICAgICAgICAgICAgICAgICAgICAgICAgICAgICAgICAgICAgICAgICAgICAgICAgICAgICAgICAgIC AgICAgICAgICAgICAgICAgICAgDQogICAgICAgICAg ICAgICAgICAgICAgICAgICAgICAgICAgICAgICAgICAgICAgICAgICAgICAgICAgICAgICAgICAgICAg ICAgICAgICAgICAgICAgICAgICAgICAgICAgICAgDQogICAgICAgICAgICAgICAgICAgICAgICAgICAg ICAgICAgICAgICAgICAgICAgICAgICAgICAgICAgIC YaAMDiOPToIGEmGOQvKWLyZLDiKLOfVBIoHULeVYLyUDAzAIUlNXAoESt9Y5nqNJBtXLCbRH0yCYg6Ty 8+XEtKGzVlILH5niSszH9KXO5aq6YzCRkhWRCup2UoIYh4YL2FZXIiAWorNM6UVIxlcm6IEKRtTMEfrV RUz3vmEoSmNJZ7GUSjVsllML6LBYKoM5nslqYcIUTc FYJZJCjkSVEMUCjmAAVVHFAdHREsViNwGsUyIXWkRIIuUDCKNRI3LLJzXvFzBFOeSZUlMdNuWMHTQLXx TCTmXqTxMKfhDN5Hb9JseDJeKV6AXq1RIlJwVH6czz0LPLCuMJNiBnhFQdo7HGhtJD8OpIRgfIF8GoYp YFVKPmXbT2aom6AsMRdnLWSKWJhkJQ5Se9IkuBRaGF o+Lp0ZOU9ec4HvZEz8FxQlPQ7szp9IRDhXUrZpX7XkkTmuPCLnecZ2xIMyMKM0TLHxjVrgVxW7yNVUPR rvekX8e6uhYM8GNNF9GRlrCTTbXfMfLFDjSAr3XkCOUZhBQqStW8Fxy8GjMuF1YFBpAwEwCPefIDDrYQ gwJL88tPbeSZ4FKIFoEYOkYO08NXX2AIVrZm2CVf7J GrCiSH5wmx7ZPCsrTZOdTkxVUcb5UCfgVH6HsQUqN3LorJZoz4fVFeJsN3BJBXV1ABMxSb9JMNGaMqSv TEGkEMsoCZ4uXUWfWGWFkUdrnwK0DX8SFH7hpdQzLR6PFqQlIb0zMk0JXkLpP9KlY6MkDHFcSJLZZEuy FS5UJZsoJC0fPB2Ez9ZPnJGwpD9dre3UOYCiVBQtHj xphz5UMphpD0Y5lDqyTPVyBJJbKIJJBXarLJ7VURGrQMT2HAV0VQQzZBKRUwNuP93bCO8IO5Baw85gSn E9VTHeBzGaOKfnUR01dZpjskKouYBweWdyLL4CWk3+DQplbmRvYmoNCnhyZWYNCjAgNDkNCjAwMDAwMD OtUEHmGqX1BaWvKj1ZXTVlMQGoIOTvWhCcXGCjVLAj RMdoTDIwYACkVSo6QYFxGTXpUU9UEuQhHGPaYZDkUnZkIMPcQBCsru8CBKPnEYNwCCL2VrQpVQMjGRVo ZFolZJRsJDU1YjPbYHIiMBVvID8ZBqQuKYFvHRT1BuKuRZRcSMOmcm3OSOMfVARhKjYoXuGrTHTbDNSl RSuxFVCyCTT9ASS4UDBtJLFpHL2SGeZvOCPiMWJ7Jo ejEIStIIMziw0CTLRxITRsHEHfUILkDBMpOAPmHYbcNWKuNVDvXWO0PTWaMDWwPU8NKrHzJPDfJWE7Ml SqABDxCWSqls1PIHUuAWLuFcU6VDWhKOWiTHArCBvbYFWaGRH1Yud9PMJaHGGnQS1BRgDdLDNzMGh5CS NiKPPeISXsbj5YYDDsUZIwBVEvOeXmKAQyNZVjEHdu SPDnAMVgAZnjLFNcZJXfKB6VLaRqNIBwSkSzCjgbKWGbJBXrwt9SGTClDJArUzX3KtZgTWCrTHUsLTjr HJTjTMU2AtkiWVLoYYLnAH6LWzFbEVJdVdVjCrQvVSWyNQFxko2LRHWrMMRnIUR3LLUqHCDkQFMnBTbv CVNsTPPrEnicQHXaRABnCT2UEmYiCSXcYiP7AEumBR ZjDIEfou5MWTHtNSRyXkS5RwKeSYGqLOBhCGzgZGRyPQGgAyR8MVIwELAvRD8IPvWtDRAxKtN8AtdaXB EiLSPcvq0LVVVmAZFsBXr5RlLzJKEsWEYdPEnnPTTrNMM0FGu9YBRxSOFmFC2KUtFnCMBnVxUqRlEfQJ QuLWGzaw9XAZZnQBVhRzWqXPAjURXkUZXcQOmcOOOj MXF3FzN9BBPyTVRhQB9BCpUkHMStZvV2IsWiTYMgJDDjgs9MZCQfSWHpGnY3GFWeMSBwUJJgCTjkCDPc QDD4PfikQCTnUNBbOT2UZqVuLVWqMng0TxQdVCWnZUBfgo8QCGNeNVJ8BKF9DSGzIBHgPTJxSUtwMCYw KCC5VSZ1QIPsZPTlDZ3UZsSuCWEhHYp2PvdjTJJlER Jmyl0EXGWlTRR0NACeVvWcHSZjDMAgNWktZDGnEANoNTGrEPIbPQEuPD1OCwBcUKQnSYUjHCSuZZTxNT Yasx4HNFVvRIZ5QLE2BJGhNPYgXVEhVSabRALjSPRdVTfqLOAyZOIbXP5FWpLeVZAvYAM0TrDfEVEvHL Ywvg9FUTVlSBM6SeTyIWPbFGNeNDSlHHfwXKSvCODx URgzRHJoCDToWY7PJzZtDSAxWUO4BYZqCADoDYTexr2EdYVneAcakl5FPYoDSw3SrWsfPYO3KDhvQp4g dCT5CQMvNAJEKu5LrrFbRUNnCDMGLKeqXIHrKPVhPCF8AWVkDuImQDR4I8A2Hys2ZzJbWrQoOKL2VgVi AbR3KUH2MAewGXF7EqHrZVAiCgWmTMnrJKTzN2NvJY gzMGE+VB7sMIn+Xx8Zf6ScnkF0qfZjMRo7Ukn1JB6BHDDRS9NFXw== ID Date Data Source [id number] 01/15/2021 12:43:02 PM EDT [facility] Service Cmnt XXX-Imp : NoneMicroorganism XXX Cult : 200 col/mlStaphylococcus epidermidis. Name Value Range Interpretation Code Description Data Belinda rce(s) Supporting Document(s) ID Date Data Source [id number] 01/13/2021 01:49:56 PM EDT [facility] Name Value Range Interpretation Code Description Data Belinda rce(s) Supporting Document(s) History and Physical [facility] LADLDm6wCwYPZhTn55/PNKdfRAGxb6DtYIuvEJo3PVnqHGDtO6OoVVE4cD8vZBY2YZnJWmOzUsBjPBQ2 lbm [file] BhEjCO8PPy3UVdY1YIH0pZAoBo2DHnr3DSgLTgFjOX4UCEh= ID Date Data Source [id number] 01/13/2021 11:36:31 AM [facility] Value Range Interpretation Code Description Data Belinda rce(s) Supporting Document(s) Cobalamin (Vitamin B12) [Mass/volume] in Serum or Plasma 724 pg/ml 2 11-946 [facility] ID Date Data Source [id number] 01/13/2021 11:36:31 AM [facility] Value Range Interpretation Code Description Data Belinda rce(s) Supporting Document(s) Ferritin [Mass/volume] in Serum or Plasma 583 ng/ml 30-[address] [facility] ID Date Data Source [id number] 01/13/2021 11:36:31 AM [facility] Value Range Interpretation Code Description Data Belinda rce(s) Supporting Document(s) Haptoglobin [Mass/volume] in Serum or Plasma 348 mg/dl 30-[address] [facility] ID Date Data Source [id number] 01/13/2021 12:14:08 PM [facility] Value Range Interpretation Code Description Data Belinda rce(s) Supporting Document(s) Lactate dehydrogenase [Enzymatic activit y/volume] in Serum or Plasma by Lactate to pyruvate reaction 169 U/L 122-225 [facility] ID Date Data Source [id number] 01/13/2021 12:14:08 PM [facility] Value Range Interpretation Code Description Data Belinda rce(s) Supporting Document(s) Iron [Mass/volume] in Serum or Plasma 13 ug/dl 59-158 [facility] Transferrin [Mass/volume] in Serum or Plasma 114 mg/dL 200-360 [facility] Iron binding capacity [Mass/volume] in Serum or Plasma 158 ug/dL 278 -500 [facility] Iron saturation [Mass Fraction] in Serum or Plasma 8.0 % 20-55 [facility] ID Date Data Source [id number] 01/13/2021 11:38:00 AM [facility] Value Range Interpretation Code Description Data Belinda rce(s) Supporting Document(s) Folate [Mass/volume] in Serum or Plasma >4.77 [facility] ID Date Data Source [id number] 01/13/2021 06:50:57 AM [facility] Value Range Interpretation Code Description Data Belinda rce(s) Supporting Document(s) Potassium [Moles/volume] in Serum or Plasma 3.4 mmol/L 3.4-5.1 [facility] ID Date Data Source [id number] 01/13/2021 08:12:47 AM [facility] Value Range Interpretation Code Description Data Belinda rce(s) Supporting Document(s) Magnesium [Mass/volume] in Serum or Plasma 1.5 mg/dL 1.6-2.6 [facility] ID Date Data Source [id number] 01/13/2021 08:12:47 AM [facility] Value Range Interpretation Code Description Data Belinda rce(s) Supporting Document(s) Phosphate [Mass/volume] in Serum or Plasma 1.9 mg/dL 2.5-4.5 [facility] ID Date Data Source [id number] 01/25/2021 05:06:08 PM EDT [facility] Name Value Range Interpretation Code Description Data Belinda rce(s) Supporting Document(s) Thiamine [Moles/volume] in Blood 54.7 nmol/L 66.5-200.[address] [facility] (NOTE)Verified by repeat analysisThi s test was developed and its performance characteristicsdetermined by [facility]. It has not been cleared or approvedby the Food and Drug Administration.Performed At: [address] [id number] Holden MD Ph:[phone] ID Date Data Source [id number] 01/13/2021 02:10:[address] [facility] Name Value Range Interpretation Code Description Data Belinda rce(s) Supporting Document(s) Leukocytes [#/volume] in Blood by Automated count 14.4 10*3/uL 4-[address] [facility] Erythrocytes [#/volume] in Blood by Automated count 2.59 10*6/uL 4.6- 6.[address] [facility] Hemoglobin [Mass/volume] in Blood 7.4 g/dL 13.5-[address] [facility] Hematocrit [Volume Fraction] of Blood by Automated count 22.7 % 4 1-[address] [facility] Erythrocyte mean corpuscular volume [Entitic volume] by Auto mated count 87.6 fL 80-96 [facility] Erythrocyte mean corpuscular hemoglobin [Entitic mass] by Automated count 28.5 pg 27-33 [facility] Erythrocyte mean corpuscular hemoglobin concentration [Mass/volume] by Automated count 32.5 g/dL 32.0-36.[facility] width [Ratio] by Automated count 16.3 % 11.5-14.[address] [facility] Platelets [#/volume] in Blood by Automated count 391 10*3/uL 150-400 [facility] Differential cell count method - Blood [facility] Neutrophils/100 leukocytes in Blood by Automated count 86 % [facility] Lymphocytes/100 leukocytes in Blood by Automated count 6 % [facility] Monocytes/100 leukocytes in Blood by Automated count 8 % [facility] Eosinophils/100 leukocytes in Blood by Automated count 0 % [facility] Basophils/100 leukocytes in Blood by Automated count 0 % [facility] Neutrophils [#/volume] in Blood by Automated count 12.34 10*3/uL 1.8- 7.[address] [facility] Lymphocytes [#/volume] in Blood by Automated count 0.91 10*3/uL 1.2-[address] [facility] Monocytes [#/volume] in Blood by Automated count 1.08 10*3/uL 0-0.[address] [facility] Eosinophils [#/volume] in Blood by Automated count 0.02 10*3/uL 0-0.5 [facility] Basophils [#/volume] in Blood by Automated count 0.04 10*3/uL 0-0.2 [facility] Nucleated erythrocytes/100 leukocytes [Ratio] in Blood by Automated count 0 /100{WBCs} 0-0 [facility] ID Date Data Source [id number] 01/13/2021 02:16:55 AM EDT [facility] Name Value Range Interpretation Code Description Data Belinda rce(s) Supporting Document(s) Bicarbonate [Moles/volume] in Serum 24 mmol/L 22-29 [facility] Chloride [Moles/volume] in Serum or Plasma 101 mmol/L 98-107 [facility] Creatinine [Mass/volume] in Serum or Plasma 1.13 mg/dL 0.70-1.20 [facility] Glucose [Mass/volume] in Serum or Plasma 118 mg/dL 70-140 [facility] Potassium [Moles/volume] in Serum or Plasma 3.0 mmol/L 3.4-5.1 [facility] Sodium [Moles/volume] in Serum or Plasma 135 mmol/L 136-[address] [facility] Urea nitrogen [Mass/volume] in Serum or Plasma 12 mg/dL 8-23 [facility] Anion gap 3 in Serum or Plasma 9 mmol/L 8-15 [facility] Osmolality of Serum or Plasma by calculation 280 mosm/kg 275-300 [facility] Creatinine/Urea nitrogen [Mass Ratio] in Serum or Plasma 10 [facility] Calcium [Mass/volume] in Serum or Plasma 11.1 mg/dL 8.6-10.[address] [facility] Glomerular filtration rate/1.73 sq M pre dicted among non-blacks [Volume Rate/Area] in Serum or Plasma by Creatinine-based formula (MDRD) 69 mL/min/1.73m2 >60 [facility] Glomerular filtration rate/1.73 sq M pre dicted among blacks [Volume Rate/Area] in Serum or Plasma by Creatinine-based formula (MDRD) 80 mL/min/1.73m2 >60 [facility] ID Date Data Source [id number] 01/13/2021 02:01:[address] [facility] Name Value Range Interpretation Code Description Data Belinda rce(s) Supporting Document(s) Calcium.ionized [Moles/volume] in Arterial blood 1.73 mmol/L 1.13-1.3 2 [facility] Called to and read back byEDDIE SARAVIA AT 10E AT 0201 BY [id number] XW ID Date Data Source [id number] 01/20/2021 02:06:27 AM [facility] Value Range Interpretation Code Description Data Beilnda rce(s) Supporting Document(s) Parathyrin related protein [Moles/volume] in Serum or Plasma [facility] (NOTE)This test was developed and its pe rformance characteristicsdetermined by [facility]. It has not been cleared or approvedby the Food and Drug Administration.Reference Range:All Ages: <2.0The PTHrP assay should not be used to exclude cancer orscreen tumor patients for humoral hypercalcemia ofmalignancy (HHM). The results should always be assessed inconjunction with the patient's medical history, clinicalexamination, and other findings. If test results areclinically discordant, please contact the laboratory.Performed At: [facility] [id number] [place], [place] [id number] Brian F MD Ph:[phone] ID Date Data Source [id number] 01/12/2021 06:41:32 PM [facility] Value Range Interpretation Code Description Data Belinda rce(s) Supporting Document(s) Hepatitis C virus Ab [Presence] in Serum or Plasma by Immuno assay Non Reactive [facility] No serological evidence of active infect ion. If recent exposure is suspected, test for HCV RNA. ID Date Data Source [id number] 01/12/2021 06:21:00 PM [facility] Value Range Interpretation Code Description Data Belinda rce(s) Supporting Document(s) Prothrombin time (PT) 17.5 s 11.6-14.[address] [facility] INR in Platelet poor plasma by Coagulation assay 1.50 [facility] Routine intensity oral anticoagulation I NR is typically 2.0-3.0. Target INR must be clinically individualized. ID Date Data Source [id number] 01/12/2021 06:18:02 PM EDT [facility] Name Value Range Interpretation Code Description Data Belinda rce(s) Supporting Document(s) Calcium.ionized [Moles/volume] in Arterial blood 1.75 mmol/L 1.13-1.3 2 [facility] Called to and read back byDANIEL HANLEY RN ON AT 1816 BY [id number] ID Date Data Source [id number] 01/12/2021 01:22:[address] [facility] MR BRAIN WITH AND WITHOUT CONTRAST [id number] FINAL RESULTInterpreted by:Tricia Tate MDINDICATION: Mental status [...] rce(s) Supporting Document(s) ID Date Data Source [id number] 01/12/2021 12:04:38 PM EDT [facility] Name Value Range Interpretation Code Description Data Belinda rce(s) Supporting Document(s) History and Physical [facility] JIBPSr7bEcFUSdCi48/ZHIwjVFEsm5YlSLupTOu4OOetLDKtP7AkYFL8sU4uADK0SFgRZpViJgFpWMA2 lbm [file] AgICAgICAgICAgICAgICAgICAgICAgICAgICAgICAg ICAgICAgICAgICAgICAgICAgICAgICAgICAgICAgICAgICAgICAgICAgICAgICAgICAgICAgDQogICAg ICAgICAgICAgICAgICAgICAgICAgICAgICAgICAgICAgICAgICAgICAgICAgICAgICAgICAgICAgICAg ICAgICAgICAgICAgICAgICAgICAgICAgICAgICAgIC AgICAgDQogICAgICAgICAgICAgICAgICAgICAgICAgICAgICAgICAgICAgICAgICAgICAgICAgICAgIC AgICAgICAgICAgICAgICAgICAgICAgICAgICAgICAgICAgICAgICAgICAgICAgDQogICAgICAgICAgIC AgICAgICAgICAgICAgICAgICAgICAgICAgICAgICAg ICAgICAgICAgICAgICAgICAgICAgICAgICAgICAgICAgICAgICAgICAgICAgICAgICAgICAgICAgDQog ICAgICAgICAgICAgICAgICAgICAgICAgICAgICAgICAgICAgICAgICAgICAgICAgICAgICAgICAgICAg ICAgICAgICAgICAgICAgICAgICAgICAgICAgICAgIC AgICAgICAgDQogICAgICAgICAgICAgICAgICAgICAgICAgICAgICAgICAgICAgICAgICAgICAgICAgIC AgICAgICAgICAgICAgICAgICAgICAgICAgICAgICAgICAgICAgICAgICAgICAgICAgDQogICAgICAgIC AgICAgICAgICAgICAgICAgICAgICAgICAgICAgICAg ICAgICAgICAgICAgICAgICAgICAgICAgICAgICAgICAgICAgICAgICAgICAgICAgICAgICAgICAgICAg DQogICAgICAgICAgICAgICAgICAgICAgICAgICAgICAgICAgICAgICAgICAgICAgICAgICAgICAgICAg ICAgICAgICAgICAgICAgICAgICAgICAgICAgICAgIC AgICAgICAgICAgDQogICAgICAgICAgICAgICAgICAgICAgICAgICAgICAgICAgICAgICAgICAgICAgIC AgICAgICAgICAgICAgICAgICAgICAgICAgICAgICAgICAgICAgICAgICAgICAgICAgICAgDQogICAgIC AgICAgICAgICAgICAgICAgICAgICAgICAgICAgICAg ICAgICAgICAgICAgICAgICAgICAgICAgICAgICAgICAgICAgICAgICAgICAgICAgICAgICAgICAgICAg DHQjZXu5F1joRZRqSKIqTX6iCFk8Kv8+MCuDVaAtOYV6uhJnoP7ARN3un9KuOEpoULLlj5WcUTy1XC7E XVDgLJsiWB7JGGrwuu1RYNRbTROmmBCEl4xqStWpDY M5IMDdVvgzVH0ZEWPfS9etqzToQLBzDOHRXGrwNIGYPQdhDOONRFYqDASxHgWiMfEiEKPfFCCzUQDMJL 1GQzTdW5JzdB60IHQSIe0+MSotgsXaKkiTHpS4LICtu6JfDUp8OR3XIIEpJdper4XnDdWyHJTXYXmrTI 9MVVK1WHA7AQUuGf7DHGBzT868qsQvFG9UVp1OUeOn KA6zjf1RMbNnSCXdXfwNHos8CKfeST2OlVPpJRaCIhRbPzjsO5LkVVQlBYJiWkPxHRXskVqtSR3ZChNq JPOyXE9cFX8qBPJnAUT2ZlPrSAVCMW7BSFLbKWTdjFYyBPIeQQICBY3OGVhmWCP1HEAzoqQirIJnUXnk QM6TOOGehwIyXtMcVVDOWUn+Jd0UKO5wg2AcTVdeWg CjTY1sce8FMFaWDpSlJ1D0wLWmL8J4WDvjBw7LTKZwYSQkFlJnMRZQCVciHV3HYV9wlrN4HA0VgGOxRI SlXZPpwFXxCFl2I38pcMUqBYnjJP7VFHF+Immanuel+Yy0DPMUvPIGqUNDlUgDrZXTCPxRdB7HrG5MHw2YbI4 DcMR14qOsnofTqMDxcZL6AOK5uKMNtENHBAO2HiOPy pL9jjeXaAMAwOPBUCjQxR99syYJuZCFlKJD8KMCmQr6FLWQnX4OogjZivRrnfvSbNCFcJBUSZX7MMIzo xlYsrEUhbWjeWK71bPqcPD7EKs3IFrPkJF0ogw0WaZEuLr3TMGPfIM4SCGTdCUToGGPjLNK0GFKbIzVa IDwxMETnWCYbRHM7BPRyPEXlMQ5UAbWfFYLuJox3PK fjTHLkAWGzda6THTEoZYU4LSfcDMQjOVNbMBCyYIhrUEQwRTYnAOG5INIeCLOsWF0ZExRjHLFsYIQ6VR TlYTQkGSAwfg8TFDRdRNZoPIZ2XVCxKULzTRCzHOkpHGYwADK2MSH1JHHvGAXfGD9GZoTxISLnVTonSl vcZZJuFSGmpe5YGMOpMHJoEaC1BtVhRKUoACIpNJru JWHjMIVgDpZoXIDmIONmLA1GSoAfLGCmFJI2ULAkUNZaVKZaoh8PTEHsCQJoOOw1XVPxCWUaDKFeJPwg ZZAcSNR7NiO6NIMlKLOpKH2LHqPuCIRgCCu0TmCoMPMkDQYmcl7IDOVfAMOiLLG0CUHfQXNuWYVcKEjz NYCcVNXkOoAdNCJuKABoFA0VIiHeFEBxTjPcXyCuGQ GbIVDukd0TMEGdVLMaXkGtUNDaZOPmAMSnWJcqLBHhHLZfFyTfPAAtANWrIZ1CYeJiQDEkRnE0RcMiDJ RuCDMcvy8IBERaKREzSrv5EkKcCXTqQBBhANwhGPUbSHCnKSHmLKJcQXZzTH4GMsGiIJDzBnT3NUZsNC YiKIIdqb1EFJEfNMGbXENpSvSwMDJmVSAzQQluWLWv EVV1ZhrvRKJwBQTeYK5KZbSvWKYtAxQsMQlqIUCaWANhzg9WPXHqBEYeAhQ9IRTyFZVdAWNtPWtiHHHp MOJ6OwP4PWRwPUPvGM5FChXoJCEjXydeSrOjARXgQHIxzp3XOYZnZZCuUIO9LjEdAPEqHZMcLWrjQXFz LWZ9NMShMOWdQZWdMH6UJeGiOBMcJri6MMOrLZRgXZ Htpd9GZITmNTWsGConVrPcKINyCJQdICfjMTLvZOM0EhN6AAXsAOTuOP0JOrXhFDHyITI8OGOhUECqRK Goeh3UMCIiQZZ8PQyhVKFxBTGjOJQaGRbyRIVxEPSvIAN1CPCfIIDiZT5ENwEhZNmjYMYMAbn6OHypN4 f8TYSoDY0CZ0Fzf8YsJfxjXVWJNCslYE3hbnWiCPBl Cy8DD9bZMbz6XgnlMGUoTmD6HYU5NVZfL7TxDkBlHWX1Fxw2BZZ5Oh2pJQXfI9M7NjUjIWz9TIytNDIm NeDvHHE6Jgr8SCukDOe5IgQmWM3RLx4VXgO5MLW2lPGsPw6QDQXyVJgCGaGbJA8VDPa= ID Date Data Source [id number] 01/12/2021 11:11:26 AM EDT [facility] RENAL OR AORTA COMPLETE [id number] RE SULTInterpreted by:ANNALISA PereiraLINICAL INDICATION: rule out bilateral hydronephrosis / pyelonephritis.TECHNIQUE: [...] Data Source [id number] 01/12/2021 09:03:15 AM EDT [facility] Name Value Range Interpretation Code Description Data Belinda rce(s) Supporting Document(s) Calcium.ionized [Moles/volume] in Arterial blood 1.75 mmol/L 1.13-1.3 2 [facility] CALLED TO TUSHAR MCCAULEY RN ON 10E AT 090 3 BY [id number] read back ID Date Data Source [id number] 01/12/2021 05:13:00 AM EDT [facility] Name Value Range Interpretation Code Description Data Belinda rce(s) Supporting Document(s) SARS-CoV-2 RNA 2019 nCoV Real-Time RT-PCR: NOT DETECTED [facility] This lab was ordered by [facility] and reported by [facility]. ID Date Data Source [id number] 01/12/2021 08:47:46 AM EDT [facility] Name Value Range Interpretation Code Description Data Belinda rce(s) Supporting Document(s) Specimen source [Identifier] of Unspecified specimen [facility] SARS-CoV-2 RNA 2019 nCoV Real-Time RT-PCR: NOT DETECTED 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 Patient has symptoms related to [facility] When did you start to experience these symptoms [Date and time] [Phen X] [facility] Patient was hospitalized because of this condition [facility] patient was admitted to ICU for [facility] Patient resides in a congregate care setting [facility] status [facility] ID Date Data Source [id number] 01/12/2021 01:59:22 AM EDT [facility] Name Value Range Interpretation Code Description Data Belinda rce(s) Supporting Document(s) Parathyrin.intact [Mass/volume] in Serum or Plasma 24 pg/mL 15-65 [facility] ID Date Data Source [id number] 01/12/2021 01:42:12 AM EDT [facility] Name Value Range Interpretation Code Description Data Belinda rce(s) Supporting Document(s) Leukocytes [#/volume] in Blood by Automated count 13.5 10*3/uL 4-[address] [facility] Erythrocytes [#/volume] in Blood by Automated count 2.70 10*6/uL 4.6- 6.[address] [facility] Hemoglobin [Mass/volume] in Blood 7.7 g/dL 13.5-[address] [facility] Hematocrit [Volume Fraction] of Blood by Automated count 23.7 % 4 1-[address] [facility] Erythrocyte mean corpuscular volume [Entitic volume] by Auto mated count 87.9 fL 80-96 [facility] Erythrocyte mean corpuscular hemoglobin [Entitic mass] by Automated count 28.6 pg 27-33 [facility] Erythrocyte mean corpuscular hemoglobin concentration [Mass/volume] by Automated count 32.6 g/dL 32.0-36.0 [facility] Erythrocyte distribution width [Ratio] by Automated count 16.1 % 11.5-14.[address] [facility] Platelets [#/volume] in Blood by Automated count 388 10*3/uL 150-400 [facility] ID Date Data Source [id number] 01/12/2021 01:56:22 AM EDT [facility] Name Value Range Interpretation Code Description Data Belinda rce(s) Supporting Document(s) Albumin [Mass/volume] in Serum or Plasma by Bromocresol green (BCG) dye binding method 2.9 g/dL 3.5-5.2 L [facility] al Bilirubin.total [Mass/volume] in Serum or Plasma 0.3 mg/dL <1.2 [facility] Calcium [Mass/volume] in Serum or Plasma 12.5 mg/dL 8.6-10.[address] [facility] Chloride [Moles/volume] in Serum or Plasma 100 mmol/L 98-107 [facility] Creatinine [Mass/volume] in Serum or Plasma 0.93 mg/dL 0.70-1.20 [facility] Glucose [Mass/volume] in Serum or Plasma 119 mg/dL 70-140 [facility] Alkaline phosphatase [Enzymatic activity/volume] in Serum or Plasma 122 U/L 40-129 [facility] Potassium [Moles/volume] in Serum or Plasma 3.6 mmol/L 3.4-5.1 [facility] Protein [Mass/volume] in Serum or Plasma 5.9 g/dL 6.4-8.[address] [facility] Sodium [Moles/volume] in Serum or Plasma 137 mmol/L 136-145 [facility] Aspartate aminotransferase [Enzymatic activity/volume] in Serum or Plasma 33 U/L <40 [facility] Urea nitrogen [Mass/volume] in Serum or Plasma 16 mg/dL 8-23 [facility] Osmolality of Serum or Plasma by calculation 286 mosm/kg 275-300 [facility] Creatinine/Urea nitrogen [Mass Ratio] in Serum or Plasma 17 [facility] Bicarbonate [Moles/volume] in Serum 26 mmol/L 22-29 [facility] Alanine aminotransferase [Enzymatic activity/volume] in Seru m or Plasma 14 U/L <41 [facility] Anion gap 3 in Serum or Plasma 11 mmol/L 8-15 [facility] Glomerular filtration rate/1.73 sq M pre dicted among non-blacks [Volume Rate/Area] in Serum or Plasma by Creatinine-based formula (MDRD) 89 mL/min/1.73m2 >60 [facility] Glomerular filtration rate/1.73 sq M pre dicted among blacks [Volume Rate/Area] in Serum or Plasma by Creatinine-based formula (MDRD) >60 [facility] ID Date Data Source [id number] 01/12/2021 01:56:[address] [facility] Name Value Range Interpretation Code Description Data Belinda rce(s) Supporting Document(s) Magnesium [Mass/volume] in Serum or Plasma 1.7 mg/dL 1.6-2.6 [facility] ID Date Data Source [id number] 01/12/2021 01:56:[address] [facility] Name Value Range Interpretation Code Description Data Belinda rce(s) Supporting Document(s) Phosphate [Mass/volume] in Serum or Plasma 2.4 mg/dL 2.5-4.[address] [facility] ID Date Data Source [id number] 01/12/2021 01:41:[address] [facility] Name Value Range Interpretation Code Description Data Belinda rce(s) Supporting Document(s) Calcium.ionized [Moles/volume] in Arterial blood 1.77 mmol/L 1.13-1.3 2 [facility] Called to and read back Geraldine TRAYLOR RN ON 10E AT 0141 BY 1521 ID Date Data Source [id number] 01/11/2021 06:34:[address] [facility] XR CHEST FRONTAL ONLY [id number] RESULTI nterpreted by:Clarissa Villegas, MDPROCEDURE INFORMATION: Exam: [...] rce(s) Supporting Document(s) ID Date Data Source [id number] 01/11/2021 08:24:48 PM [facility] Value Range Interpretation Code Description Data Belinda rce(s) Supporting Document(s) Bicarbonate [Moles/volume] in Serum 21 mmol/L 22-[address] [facility] Chloride [Moles/volume] in Serum or Plasma 97 mmol/L 98-[address] [facility] Creatinine [Mass/volume] in Serum or Plasma 0.96 mg/dL 0.70-1.20 [facility] Glucose [Mass/volume] in Serum or Plasma 114 mg/dL 70-140 [facility] Potassium [Moles/volume] in Serum or Plasma 2.7 mmol/L 3.4-5.1 [facility] Results called to and read back by Ariadna CHEN AT 2023 Sodium [Moles/volume] in Serum or Plasma 137 mmol/L 136-145 [facility] Urea nitrogen [Mass/volume] in Serum or Plasma 18 mg/dL 8-23 [facility] Anion gap 3 in Serum or Plasma 19 mmol/L 8-[address] [facility] Osmolality of Serum or Plasma by calculation 287 mosm/kg 275-300 [facility] Creatinine/Urea nitrogen [Mass Ratio] in Serum or Plasma 19 [facility] Calcium [Mass/volume] in Serum or Plasma 12.1 mg/dL 8.6-10.[address] [facility] Glomerular filtration rate/1.73 sq M pre dicted among non-blacks [Volume Rate/Area] in Serum or Plasma by Creatinine-based formula (MDRD) 88 mL/min/1.73m2 >60 [facility] Glomerular filtration rate/1.73 sq M pre dicted among blacks [Volume Rate/Area] in Serum or Plasma by Creatinine-based formula (MDRD) >60 [facility] ID Date Data Source [id number] 01/11/2021 02:43:27 PM EDT [facility] Name Value Range Interpretation Code Description Data Belinda rce(s) Supporting Document(s) [facility] KIQTGv8hShBRWuEkr9BwDpRtDQCxVJ0novf5K2S7pDPkL6MomTRru4chI2TgQ3UnNPNgEGXALY6StRVj jb2 [file] Qkyc3aolnvAnCSjSHbUOYRBn1M+imgq2LAHzoQZCz8+0bmvvcbozt5ws9mA/91H/+JN7XN/DARLEEN/zkHshP ggHxCxo8hVQAUvQ9bb6WEbqsFE/qePXk7BiAxf3O64 g2vfoig93+6wgklu9O13d8hmkfi1P+Ilpvl4373ozxzllav1E+Fsfww3796moavllwk9G+Vhyji06265 qsbtllq3S+Evcat4459ssntgnup4d+nbjug1042ijjxshci/vaVTtpQVqRbkjbk/72J/zRX5QNF/7jT/ Ydp52+d7uH0zI/SqXjBQKZOvyFQ5MX3LN6Cf2G1+q7 87kdPCt7Yf4EDc38BXMX+AY0My4AgkVlh256Y/n3a3vvdNpUZu/l0nD4coAqWZq5KtBFg0N708XBtofk 5FiXG4H6AbTZJX+J7+385gvVfkjNbovvmM3A/5clmlPgn8zA+bkrN4156swl+p40+M61Zj3CGx/1wPOt qK9F+t9MNF7xKJin++vhDni02MbdDq0rOd6ux/ui0v P8RL3i/wZ/Kc1tIy28ZracXjnn0GlHj6/hOdOH3Wqs6Q9N/9fwfw3/1/B/Ke5N4M7E2jsFas1e5nA/De 7G6B71rulb+Z8g5Vo1xS+u4DfwG/sVhdUl0Iy7gpbB92jusdxu0re121qNs+u7neHs+3ynZvVd48uNI/ C4mnnLsD8pWFn5AD/A3/WdmfZKN/Ab+Vaughn+31YKteE9 8B3PO/e5vtz06/iSAzr7st8Wk1Bm+qz+3vF/O/pvR/8dV/WLcVW/GDEzBF/Sesvxdid4cLw784aos4/i fw0tSrIhwMzder/9N9/d/TfzHMh/gD+Rz+6/WeZd3+r3D8D2TKg5Ckj9SY/FN2oPzt725U8z+u+M/hvP 7/zcEM18GK/mG1jiUl1w0G/pIZ1FSv4ChmA/4f+uq8 nHPTlWmI3s/NyhQri6JFxgeyF9qLH+B185tYL/T1kxDhHKJVFq/MDzmI/Vjx9gN7nF30ovw/y1Lwu9+k Vckt/4I6WarZX0csMK2pet54nBQ1aqy7mA5fYld9WO4p3j7IfJqqnTP5TzQ+4LQs/zHeUcT3/mh1GfJm /FGc7wiaXWFz5ajV/9ah+e3Wl/7xdV1660Rb/t0Vd9 2OigcpBHF7ngy5zs98Dk7pLspf7sOA1FB453n7hmO0pZ6WhwyZ450a4pi6owmjCiIO9/x4iX6iqSZcYf ubyACV3z79AVfqJ57zV4+xZsvejBVr5Q5/BawQ2438a6BeQenkFk1013m6iEncEyX67r3RPv6hN5kgLz 1EzqmgseM8qt5A1+pyRwICnIv1L++sW++FPpp1/saz +VBn/i+Um3Mqmi+Fu/ffCc4Etq5Ot8Sg8F48Yn9Hm6hg/5PGkHv/TvYe5z2+ZB0Kn8rE/3w4910cfIcy Js/UpOwIwqT+hXJ/7ZXbq49ZsWq2X/LzmuPR3QdY36NeNNQQ9NlR05DwD9ghx4V5y7EstffG+evx27ya 1H+ruNqaAKw4VxY81OV/F9LC5lFh/v+woaUBGp7Ft+ 8tq8zpZIs+C7E9+d4C/wV+Ldnz3hk3eGK65ga49n18pw+GrtB526Br/ua4gfjCPu8QQ+PvOweA6n1E+U H/XtC8+XvqGhXwU/9KtMC/z5n2Jr0jc2/+pA/f29YgnTIhyBMMk+g+/gd+CJ0Da6a/hZbMnQcyaVq9Hm 2u2Ud0I8R2Istp8h+fGyIY2XiHfAu7VIvbRyZ2Orvb vycTyP/fuQjfy923M/aWcTzG8IL/WdqG/yWmPB7u6Oy011rquR87O8XsPZabFi8EwBKVkNW+ZGjkr5OE 8t/N+F+BduWtiKojjTr1XUm/VCu6q++70Bhxrnj11zzsgs+nOQFk1JT/ANzxvycfAd/A5+B3+AP8Cf+O 7Fjuf8gT/XlfKvs4bQUe0DG/TDyhasvBk6HWtIT8M/ shJjg7a6Gi9evc6qoVOp1Qd0X53lH0Git/3R2xtvV8e45YyrK3cdq0h27F9p8p4wpkMbQtdlPVxgN/hW 63596Rx1+C9iSLPYs46SuNPmhmNoNsD/1eq/TWs+yuNmab5pzI55fzBT+pVEev/on60848S7N/3qpDc/ kvnY2pAp+Aa+g+/gd+Tf8d0B/gB/ouu9oals4KH/sk w/+m0L/puwsK1MhIc7YtR35Rju3OfN99z/rU5DxiYvaogpzAkqCvtz8qxchstw8MjDftvzW/AX+Kivo7 9qP3LgdjrLdfEsIf5yrPZ8e/EXoLDffRyjUvdG7yUZhle5WpSjRlSzukZMz9cg08Tmfcj8XhzWRxzlqz 5rYb/aa7oG+1WD/arBftXSfhXP7/32Sw08OxQs/7aw X+94iqh2IrVY9M+ajF4pqmRag9rY14gdyp44L8rsZhyezea16a8g1ynd3XCiL0f6e9l/qyomRts1CFi8 7WgLprh0yoxPe2X+soAp3Pj/42k01d73w/2f8tR2zAhPg64/y2m2ic5sWnS161W1LC1wqcw+aVQAyo6t 7LphcC45/Zpqf94hwjSeynlo2v60GUse0ahXnm94r1 NwcrkdKxlCwHZVg4mK/vaughn/ijVvC/8x9TL6pRa8+yCzGyGf3E+Sj/N77B7Rp0h5QmeYnas587j/O9GeYb 7bjX418G7x5Xjk2hfceH2MVz/ZhXYa0Mt2Ij1Ml3Gr6Lc0mO8le2ADzyQ+C/VdqO9C/y062aOKx4o6tl taf5Ykrv7s5bgstrW7Ebn4o4rMF8MBupV+fw1q3oEo a3y2q+yxdnXwO/gD/AH+BH8i/0Msfg2G+kqNzyaob+oIGyG5Y5sWceEmnQ6quejOGv/Bd/A7+B38sD/H twb4qK+hceZ6aiz+1k8fadRodYO1OK//V/F/Vs0O4mvYYe+fUzd2uY9D7/V6u7Ho4ca33P7LKTRkJX+S j332v6mPgvpPanBJ9VK/he6V7Jd46wNc/eZrT984ay TXcWPIlBneFXwbkCv0GfQX9b79tk9/GkfUmzuftUi0fuIe75bv4Yh1as59C3o1cI5bgM+ZNeRjyMcefc CsxitL+3B585MOa7dmJVfxEzstPtz3ubtAxi6sVQTANgy3Z5dUc/0pnrY23hpBe47fU8plK3OP2R153z W/Qr+H0qAR4nozOVrCjo41iRb5MX86cw17nw/7Zea1 HrRe61/rF/yjs9FmG0P2Ok657MQLs/MMFvpVyKrXfreFfpVpB7/2U6zX/r712v+12B/Jad3kD823oW/g 4/+G/SrKP8r+bKPW+nYii9tB3kCC/x21/rVR+7C0rx3688F64454550Q7JM1qAmrBMspMH5M3Zbt+x9H hqP2j/gwl6dv3htxfgvaZj9OPlmdPktrNt4AU209Yq Kv3tc+XgvN4O//n0EAsbrt5gi14+D48zMItc8V/v6/xnxk1ZM/ERn1ffdgcJF++v++6nHkOfF/Yb8y7A /awnwU+pDjD4lmBkm15Kk6jl67k4u5pHyi80RorfbbW4/2Uoq5MyzQpay6Hc5D/Sr6e+bPBiAKOlen5M 1rodb7ejm/HvrVST/zmod+tcvgV+reuiD24WW/inTN R36V/quBg3pp2e/aP/QPl4t342uNM120+O994QjAxvz+W+findk6S/zYm4uYi3Wg/yvSvRlpc04wRoV0 h/7EIg3bTaDMH2m4DsiXbt/axsJjer8Z/AH+KT4K91431ioqti5QlaM1Eki2j+Q4f+GqV9vAo1NeoK0+ z72wxUjTyR2iEMkrH7nh+sNSHx03GC23Ty1XVbdxGa ao6E0stVt265kG+fgh74wn/83z4klrYTOY69dka93gP+SZ450YiAI0iZ/XkZ1WYuO9Hre5Of049c5LiN Eya1/W0EiNmQ4vcGJl8cviPDOv0zdFaFuc7zC3Yaom6upKw9V/a80tSGa+iqHdIs/h6Jdazar9H0Js9/ LVy5n6s4o8h3l5/Rtys+uxD+l0ZE4e60s+gtGukKeh /6spC47UhnK0sXV67xpf/3gpZ9v93iQ/NbRnq/nIreYjz/WGlj5102C+ynH+ykO/0yMIx83y0EIsSl8i C/gKvoLfwK/qYR53ufUw/KCiGNbDv1HdrQ/9a0lk11Wh2sbi620zdpGw09Vi61zZz/GgeS7HX+6lT3rY r04a/Mcq32668k9xw2c48Ea8c/Ad+VPm58AnhZ6s/9 Invdd+epzk7zg5Q83E/oKP2i/nOjkmAxkm4HubJumU3oqd+M63v8R87lfYw7ay8II62E16scfEzX4TW/ 0q/eKfO7xi0F/wS7/y0K/wS0XGPt86LGRnkf9pdP/z54Nt6DowZ5vlZgVI/afXp83Y6uvNg8Htkacga2 pxO/HqADpNz0QKp0l/mfi/fB6tqCuCB/zSl84qjL45 dw8G4lF1PB1fz46TdOEy/Udsia1pPK97lsB46psB0fXOwtU5ll766iC2Tjnt+R8yTUnrzS/O1MKz02Mb e2z5K1bnxr7vQdKUlq8bz9616D/7VfXtV+0f9Th/1xI3zCerC85Z/ljbir6OM2whn96Bd+q//UOxF90h yGdcSD/6lj95Ybynbn/Ar/ts69o7tpjsza5d35s45B XOt+cziucV/HbVu+9Bh9Ef2RJeK0AuNs/3C2nwB/zK3XnQQeI/Yr3eghvYwvF2eV+iinr7YktqqF/WfN JxtzRaIOxa6AdHL9fJtPV6iv/AL0824atQ/AV+aBc19VvIrw62NfHs7R8ft5V575l7DYxc9dl5/JdW+6 L2zqLU8g1/7Nt+FX2wb/oJ9fIru7cqor/7VYwnfduv kiR89gbPzpwh19OGr/Pt8Yyh/lg4syj3Kb5Fy3508IHGl/aPuqG+UnmNq7ySxoC046B/9c4H8pwK+1XH 8kky6ypP3FuSOmJ5PBwjW1gPqfM0nWq03c1Hotvo9ck4e/c0R0s27A568GaQy+X7tm2akHQQO/u/PexX WZ46/9d2oMc0/u0+wV/mbs3476I/880luDvDp95yi/ fo60ZE3o36iyK4Ts5vaMY+Rb2O90PD/ZRI1/g2k49I5Xv+xKjOewR3Ll0o5/u4wK/nVh5QrnG+FHwFv4 HfwDfwa/2lG90D9sZLr1CDl/ttqfCLsZjb1Pl+MB+RKC6Li8SfXhuE/Fq5UwoL8CxZzsUP5v8x2Bw92J tM1/5vn3V+o89aL/RZ+mSftX/Xx33ZF5D2hW/l3mW/ 6bh0zOeUg+fccr/1j2uEtqg/rV/lmeR+76u7zrz2ckSa3Q7dS1rFipo475a5qh86jzDc1n2vKppjejby /d++5tc270f3eK1tih+3b888je6/R9nWPv+fxb6rvrRL7yzNdk0gr47A68y45tTLpHFfsbe+nB6e8oF+ wsdx5fdmK8F85CTq7XvTSDpxH03Gi1o97xkKDRrSas nI/cFMP+FQESmIT46s+Fahj62tAQT/l4Yn09WD/kV9POcaf9+u9X4aRsc2dPouVd6p/z4DxHRX/NpPGW m/owU9nKnSoo99zGHUi1F0UWExdIG/9o+J3KtJFTDkYVnS6+Z4wEhfufM+QHkmvjtRngV+vz7q7KxqUv X/jf3B+KexPxj/HSVY2ygk2xi2rYs81Cs7lmX8MNM/ MNMOvoPfwe/cK4Gy5dYS2piV0F+rNHiR39siA+83ziEse6mnT0P3P9/hhUzlyde83WkpbmP/rOpZ76K0 6W4u7pjwZ6+Av+kzTL1Os/YTDpaOH7895P76bnONbDneG/8N+1WmG/gN/MwoO7p0+8McfAe/g4/2bLUf Hzk7EgwVRk3ppyq5uyAe/mp4zb/Da/6rIxQm6Vx/hy y4Ci8Kz5Ui7Nb3Gv6S33qL+hnfhJ23dT39hUBB5RjaUWJCK3ldhHq27q4Za7JOqYI+fYR+4VBh1mi1Lo ULicrz2o5qw7p4R9/UOQrhZzisS7a0T+rbJ/gT/AV+6X8Dc302h6XnM6jc90ZsQOuD2zY1WANo+AZ+3a cbo+7TjeHgd/A7+RQ4Hw32a77FRzsCra8PvZd6PNL7 B8es/k9o4T0tbttvS/XF+nNwke97Rt9DBrcvOpyjKdcGq/aM8+9L1lkWFUvRuF3dv4N/wK/9lLHQnhfa 79W6tY6eDGAxosKKzPgN9+0hdw4j3YNi7Cry54Rh/bHK/auP0E5D9B+45wGX0Wgeg/PLC9grwn67ff7I M+8WZ78QyN+zbX7e6oZ+Mp7Z+fTQw0d96zTIs+A38A 18A7/eC07kamdV1J/gBhxnzkP1zIrP/51X/a571tdbDiNgbmmnwbtpS41a+XeGfrXnuCk1/25VIZ78ly HfvN7d/1eCb8+7C8OEX3/Qr/O4rl788Vj2lB6QyqAcYT2u1xGz2Cv8Qsih736uba85xcv/U+u+81QFX/ F8Qz4N+bc7hMkTrg0/Dy0904rxc3r9v1Yg/06t9e/U iecn+Rk88p1d0ZyWwpcuiNS/H7uzDLXM+HjH8g1UsV24ptilb2ePcfU8Hn8h+7+z1Xg1W+6VlTb95icq v2y2Wv/NFcEdcWvtGJ0J6+f1clA7yyCok4bQ7wRjos02yv8zafB7/b1YwCbif81+Yb+o1G2z9hQxzv7q 2kVn96dpumccwndtYuz+H6uGfoI3+ed8Zp9/7pHnPv 8c/ovc6p3evLSs05aYEs/qkrb776Lukc//Xi3S4O/170k/+5HE1zc9jg6HzvMW3+bl17i3G18VSTSYc/ Vb41y0k5gpF71v5/d57+m7vjEO+F7/Rr/wff45/vvyV544k50V7+S53ppJ8dtkSu96i85QBv301rgla7 n13UYyH/RAn1f3Ypk4yF+k8V4jF6qexM+22G3HPO24 Wv/TUrBf3M/wS7+f9L7x3dxw0aldVB+HsvEmD32zE5uh1R1D56jI+tXE/cGJ+1RT2lk3CI2L3L/QrzI9 wZ/4nt6wkJQ7fU+BSMm3ZQfwD9rYh+YsfWNOBb/h+EC9ACcbo9tJ9y91KB7arSiC+faJ8+1zDvAxPk+M igHaA343l1U1chrhY66qrzWK6wUP+Nld3inZp0+cb5 789x7fkw5jB1/Bx3yE8+5O18wwqpuMqH+dh2M1oA/j/NV+Mi6M93Rw3Ma3Fz9Km+M82Rp2Pl0FE/VdV9 G0FY30Pd0Boqr46tdj/w4aQ3uOQv/m33Qso5jj4Rt/e4ffk6yR77YI8OqWtel5EbaKCri2M4/Bd/A7+B 3fHSjPAH/iedRXyj/SklofLS3/VFty8XS8LM/1VdQX /q+PSszddBfwlNV0I7+E97Pr1nPNAf5F0fR7YN8iz5sdaobgxveKR8ZsdA35Ks5g9K7W3XoX/wyrGfI3 5O/IH/HruA2LeqNnkIb2EkZT+tVqC+Wp88/Lhn91tU8II/i/WvB/Declan/Jacqueline/2pSO22PpP/AN/FoPLqv9 /QD1bHWfmHYTBO6NeY54Cqylw/91/F+/nXet7L2wui 15zb/X9L3m0IM9W0/9lAX/Vwv+i0ooqfdcSrmdhr+r5XX/t7vjv0iib3l03s24mdmr/HHW12yc5gjgw/ +r9DZ7ZM/BV/Ab+A18A9/Ar/1y5Hr1z5W+fXW0Z+lHs4c8K7Y+tsBmRtX0o4K8iZ/XqPXvGrX+XaPWv2 vU/d81yp/MGnX+fU3VjoAusKveXgnu/36F2s2A/gC/ 7uOs0K/5JavF6b7gx/Z/69e4fguRvQm40v7XrpZptdkmA3cIuQl624FZg/ZZ7a82z/RCnQq4RjhY/gB/ gj/BR10hrddVwk7eUu7uCw3yf/nO9iO3khKtCr71uIP6W5ObcE3DkVlb9yupy/BXr4b2a91t28mX8wjb /curam developer/A8aHfzTTmEDflEdL5+Cl7Obe6yb+MB2kLT2OO TR3jOQTKWn4kCQZezgzR5IIvk3L0/qxXK3agYh/OxjCoR0rcb76jrSK5A2oWui2AAYKM/bS+LdXW/Czz 7r96bihcg1Wg1BwE7Lmq0rv6n6q4+LNpQVdPnX6C9A4Baqm3wnMx6yFW+8wbqMj8Hh+1cJudMRxMpX91 FDhdXOA7AlsnVgyM+sme/RliiRDEwjqIBAFoWomR9s h6+7gvkwbRl3WypfJr8S6pn6G0CBrJMdl+km/RdyY6Hlb9Da0YWva0/U52HjJJfmE/W94OnSoaP2RQYB wB9qFbnavVF7dsO0Tx3ogN26wCbMCLOcUhAL5AKEk2RYSvACw+Jfabk63QtqSDdMCDv0OEm5LjGCtvdT z18dmBJp7NOf1P9GTdcbvRvOavYWdhOC9rS/Dy/Donald QF8bijaP0fguSHroATBaYDiaw64rOeawLVnkNmTmSNluKR29cOg2Fd8C2dB4Q9DzgPnGCrqfTEmAXcDi 1KWitQsFNdEr0yCcZJaHQ+F8i6jmMpTLN9yGl6JpHARiG67FkJT5FEEB2nZ0ic49I8fBYA5+C342JYuM [place]+tw/In7yseftH68kM0pZQ7Npcg4XDSS+Z4krAkk [file] biAKMDAwMDAwMDUyMyAwMDAwMCBuIAowMDAwMDAwNj UrACTwCKOpDB9jYaGcKLLjHWM4JLMgLJBdOWXvanTRDYSxTZBfFYt6HOHhTJIaBBYmAJqeFUWoGVDfUW R0BXQmFNBsQR8iKaVrGIXkSIJoUSOaBKCcOZChzzTMLQEhFGWeYBL5MBHxBIIeRCJaXFelNOJrXTJhIn t8ENCxWESuUN2iLjMoAJQcSDL0MIPnGWEuKBMooiAO NDEbBYW6Qtr6MMApLEEhFNHeHCfwMFFrJQNzXhH0ALAwDZMpPD2hTeIaPDNhKOB6JpDdMNGlSQDxeyQT NUCkMUIkWGM9SiDoKTWyLXEzSVcpCMSyPZHjSPHmBKE6NVC5PNCeSlEpFJjyEZTBDItJB6VyyiBmEvJD S1itOt3tXpZrZRQLS7Cgw2NoBRNrYECOWi0+GwG8WRZ8rWEwBrc3KAC6YqacNTDXFc== ID Date Data Source [id number] 01/16/2021 08:30:45 AM EDT [facility] Service Cmnt XXX-Imp : R HANDMicroorgani sm XXX Cult : No growth 5 days Name Value Range Interpretation Code Description Data Belinda rce(s) Supporting Document(s) ID Date Data Source [id number] 01/12/2021 12:07:[address] [facility] Name Value Range Interpretation Code Description Data Belinda rce(s) Supporting Document(s) Calcium.ionized [Moles/volume] in Arterial blood 1.88 mmol/L 1.13-1.3 2 [facility] Called to and read back byTahir SANCHEZ RN ON 10E AT 0007 BY 1521 ID Date Data Source [id number] 01/15[facility]21 09[facility]50[facility] : L HANDMicroorgani sm XXX Cult : Gram negative cocciin anaerobic broth.Called to and read back byHuong Hanley RN on 10E at 1452 on 01/12/21 by Vanita kaur anaerobic broth. Name Value Range Interpretation Code Description Data Belinda rce(s) Supporting Document(s) ID Date Data Source [id number] 01/11/2021 01:17:[address] [facility] Name Value Range Interpretation Code Description Data Belinda rce(s) Supporting Document(s) Ammonia [Moles/volume] in Plasma 28 umol/L 16-60 [facility] ID Date Data Source [id number] 01/11/2021 01:14:[address] [facility] Name Value Range Interpretation Code Description Data Belinda rce(s) Supporting Document(s) Lactate [Moles/volume] in Serum or Plasma 1.4 mmol/l 0.5-2.2 [facility] ID Date Data Source [id number] 01/14/2021 08:02:38 AM [facility] Cmnt XXX-Imp : NoneMicroorganism XXX Cult : 30,000 col/mlEscherichia coliGreater than 100,000 col/mlStreptococcus mitis group20,000 col/mlEnterococcus speciesATTENTION This species is always resistant to cephalosporins, aminoglycosides(alone), clindamycin, trimethoprim, and trimethoprim-sulfamethoxazole. Full workup of above organism(s) has been requested byDr. Elba Mcgee on 01/13/21 Name Value Range Interpretation Code Description Data Belinda rce(s) Supporting Document(s) ID Date Data Source [id number] 01/11/2021 01:24:[address] [facility] Name Value Range Interpretation Code Description Data Belinda rce(s) Supporting Document(s) Procalcitonin [Mass/volume] in Serum or Plasma 24.13 ng/mL <0.[address] [facility] (NOTE) < 0.25 ng/mL Bacterial infec [...] to sepsis/septic shock. ID Date Data Source [id number] 01/11/2021 06:22:[address] [facility] Name Value Range Interpretation Code Description Data Belinda rce(s) Supporting Document(s) Magnesium [Mass/volume] in Serum or Plasma 2.0 mg/dL 1.6-2.6 [facility] ID Date Data Source [id number] 01/11/2021 06:22:08 PM [facility] Value Range Interpretation Code Description Data Belinda rce(s) Supporting Document(s) Phosphate [Mass/volume] in Serum or Plasma 3.9 mg/dL 2.5-4.5 [facility] ID Date Data Source [id number] 01/11/2021 01:27:59 PM [facility] Value Range Interpretation Code Description Data Belinda rce(s) Supporting Document(s) Color of Urine [facility] Clarity of Urine [facility] Specific gravity of Urine by Refractometry automated 1.009 1.003 -1.030 [facility] pH of Urine by Automated test strip 6.0 5.0-8.0 [facility] Protein [Mass/volume] in Urine by Automated test strip 30 mg/dL Neg [facility] A [facility] Glucose [Mass/volume] in Urine by Automated test strip Neg [facility] Ketones [Mass/volume] in Urine by Automated test strip Neg [facility] Bilirubin.total [Presence] in Urine by Automated test strip Negative [facility] Hemoglobin [Presence] in Urine by Automated test strip Neg ative [facility] Leukocyte esterase [Presence] in Urine by Automated test strip Negative [facility] Nitrite [Presence] in Urine by Automated test strip Negati ve [facility] Leukocytes [#/area] in Urine sediment by Automated count 94 /HPF 0 -[address] [facility] Erythrocytes [#/area] in Urine sediment by Automated count 8 /HPF 0-[address] [facility] Leukocyte clumps [#/area] in Urine sediment by Automated count None [facility] Bacteria [#/area] in Urine sediment by Automated count Non e [facility] Mucus [#/area] in Urine sediment by Microscopy low power field None [facility] Crystals.amorphous [#/area] in Urine sediment by Microscopy high power field None [facility] ID Date Data Source [id number] 01/11/2021 11:00:[address] [facility] 5.8Serum levels of PSA should not be int erpreted as absolute evidence of the presence or absence of Cancer. Results obtained with different methods cannot be used interchangeably. This method is manufactured by [employer] and is an electrochemiluminesence immunoassay. Name Value Range Interpretation Code Description Data Belinda rce(s) Supporting Document(s) Leukocytes [#/volume] in Blood by Automated count 19.4 10*3/uL 4-[address] [facility] Erythrocytes [#/volume] in Blood by Automated count 3.07 10*6/uL 4.6- 6.[address] [facility] Hemoglobin [Mass/volume] in Blood 9.1 g/dL 13.5-[address] [facility] Hematocrit [Volume Fraction] of Blood by Automated count 26.8 % 4 1-[address] [facility] Erythrocyte mean corpuscular volume [Entitic volume] by Auto mated count 87.2 fL 80-96 [facility] Erythrocyte mean corpuscular hemoglobin [Entitic mass] by Automated count 29.5 pg 27-33 [facility] Erythrocyte mean corpuscular hemoglobin concentration [Mass/volume] by Automated count 33.8 g/dL 32.0-[facility] distribution width [Ratio] by Automated count 16.2 % 11.5-14.[address] [facility] Platelets [#/volume] in Blood by Automated count 438 10*3/uL 150-[address] [facility] Differential cell count method - Blood [facility] Neutrophils/100 leukocytes in Blood by Automated count 86 % [facility] Lymphocytes/100 leukocytes in Blood by Automated count 6 % [facility] Monocytes/100 leukocytes in Blood by Automated count 6 % [facility] Eosinophils/100 leukocytes in Blood by Automated count 0 % [facility] Basophils/100 leukocytes in Blood by Automated count 2 % [facility] Neutrophils [#/volume] in Blood by Automated count 16.93 10*3/uL 1.8- 7.[address] [facility] Lymphocytes [#/volume] in Blood by Automated count 1.07 10*3/uL 1.2-[address] [facility] Monocytes [#/volume] in Blood by Automated count 1.11 10*3/uL 0-0.[address] [facility] Eosinophils [#/volume] in Blood by Automated count 0.02 10*3/uL 0-0.5 [facility] Basophils [#/volume] in Blood by Automated count 0.30 10*3/uL 0-0.2 [facility] Nucleated erythrocytes/100 leukocytes [Ratio] in Blood by Automated count 0 /100{WBCs} 0-0 [facility] ID Date Data Source [id number] 01/11/2021 12:26:[address] [facility] 5.8Serum levels of PSA should [...] (BCG) dye binding method 3.0 g/dL 3.5-5.2 [facility] Bilirubin.total [Mass/volume] in Serum or Plasma 0.4 mg/dL <1.2 [facility] Calcium [Mass/volume] in Serum or Plasma 14.0 mg/dL 8.6-10.0 [facility] Results called to and read back by QUINTEN ASHBY RN 1996 [id number] BY [id number] Chloride [Moles/volume] in Serum or Plasma 89 mmol/L 98-[address] [facility] Creatinine [Mass/volume] in Serum or Plasma 1.25 mg/dL 0.70-1.[address] [facility] Glucose [Mass/volume] in Serum or Plasma 118 mg/dL 70-140 [facility] Alkaline phosphatase [Enzymatic activity/volume] in Serum or Plasma 153 U/L 40-[address] [facility] Potassium [Moles/volume] in Serum or Plasma 3.5 mmol/L 3.4-5.1 [facility] Hemolyzed Protein [Mass/volume] in Serum or Plasma 7.2 g/dL 6.4-8.3 [facility] Sodium [Moles/volume] in Serum or Plasma 133 mmol/L 136-[address] [facility] Aspartate aminotransferase [Enzymatic activity/volume] in Serum or Plasma 42 U/L <[address] [facility] Hemolyzed Urea nitrogen [Mass/volume] in Serum or Plasma 21 mg/dL 8-23 [facility] Osmolality of Serum or Plasma by calculation 280 mosm/kg 275-300 [facility] Creatinine/Urea nitrogen [Mass Ratio] in Serum or Plasma 17 [facility] Bicarbonate [Moles/volume] in Serum 19 mmol/L 22-[address] [facility] Alanine aminotransferase [Enzymatic activity/volume] in Seru m or Plasma 16 U/L <41 [facility] Anion gap 3 in Serum or Plasma 25 mmol/L 8-[address] [facility] Glomerular filtration rate/1.73 sq M pre dicted among non-blacks [Volume Rate/Area] in Serum or Plasma by Creatinine-based formula (MDRD) 61 mL/min/1.73m2 >60 [facility] Glomerular filtration rate/1.73 sq M pre dicted among blacks [Volume Rate/Area] in Serum or Plasma by Creatinine-based formula (MDRD) 71 mL/min/1.73m2 >60 [facility] ID Date Data Source [id number] 01/11/2021 12:26:47 PM EDT [facility] 5.8Serum levels of PSA should not be int erpreted as absolute evidence of the presence or absence of Cancer. Results obtained with different methods cannot be used interchangeably. This method is manufactured by [employer] and is an electrochemiluminesence immunoassay. Name Value Range Interpretation Code Description Data Belinda rce(s) Supporting Document(s) Prostate Specific Ag Free [Mass/volume] in Serum or Plasma 0.8 ng/mL [facility] 13.9 ID Date Data Source [id number] 01/02/2021 04:46:38 PM EDT [facility] Name Value Range Interpretation Code Description Data Belinda rce(s) Supporting Document(s) Progress Note [facility] HWIAZp8oEvZMIvAk67/IACklWXVfa0UmLUgvRFe1KNipYPMkV8LxDDI7lX5qNKE4KWgGXsYzCiOzWAS9 lbm [file] 3/2wji0Pr+q2/VU6Bf0dfk/julián/Dk7l4+bLVns+HJ+q4ccg0PLqb/tEafLvMW++GU8AT7Sw3nEt1mk/P [file] C7M0VzM7MrI1PcOMU7ErApHK0AGt4ZClS8WND3fIKkUb9NMiA8GMOKXlNzSX1YCAv= ID Date Data Source [id number] 12/22/2020 09:06:57 PM EDT [facility] Name Value Range Interpretation Code Description Data Belinda rce(s) Supporting Document(s) Progress Note [facility] BZCKQm1gKuCGFfHb27/WQDpsDRLwy5CeZCizFKr6TYunKPCtO1BqCOQ4rJ8rPOV4PYaZUyZsEeSsRKO1 lbm [file] real estate administrative assistant+W8VgJZaY5Yz4qfbyhu8ksOxn6UWxEyT7ckvYgdia3CrytXlzw68M6VU2wDf7Y1GPn9+j1/lgF5jq [file] [id number]== ID Date Data Source [id number] 12/22/2020 09:06:52 PM EDT [facility] Name Value Range Interpretation Code Description Data Belinda rce(s) Supporting Document(s) Progress Note [facility] OISUSg3tRsMLYtCp64/EIEtnRFSbp7ThNTahXMg8EMjnBNRcS1UuDEB1qA7pSPO6MIuXRmGlTiNcFWU7 lbm [file] eAeA0E28TjxjpduTToVlKRrmPdH7Q0TEQ7HwJZPoX2NWlKb1i6YMTfhyWzJ4QUKG5AgTxbYevQsS/+MEJÍA [file] AgICAgICAgICAgICAgICAgICAgICAgICAgICAgICAg VBWsSLExBRZiJOIjZXWkZINqMUNyDDGlIBTfHJCrTVAlJQVsCFCuBGEoPAVvLI1NLYFvCPZxZLVfYWFd ICAgICAgICAgICAgICAgICAgICAgICAgICAgICAgICAgICAgICAgICAgICAgICAgICAgICAgICAgICAg QZPdUWXcVDXeIDTaQQTdKRFgIVGtLPJtRUZqAV4YWQ AgICAgICAgICAgICAgICAgICAgICAgICAgICAgICAgICAgICAgICAgICAgICAgICAgICAgICAgICAgIC GaOAYlDCWxXHNfWIUdXPBzBIBnGWGmYITvHUEcMHPaBCJzEZQqWE0OZPIfCOKhGJWbVBIjZPTvAVVeDK AgICAgICAgICAgICAgICAgICAgICAgICAgICAgICAg NSPuGMNoYUEmZYXjGSYtAQOeHSBbEJZgGRKpJVUhDGJkGBXtOADfPIDyJYJkRWMnXS1WMLAeUJYbDUYu ICAgICAgICAgICAgICAgICAgICAgICAgICAgICAgICAgICAgICAgICAgICAgICAgICAgICAgICAgICAg ICAgICAgICAgICAgICAgICAgICAgICAgICAgICAgIA 0KICAgICAgICAgICAgICAgICAgICAgICAgICAgICAgICAgICAgICAgICAgICAgICAgICAgICAgICAgIC AiNISkTUDmVERjQEFzPRKjDVCfSCQvTSLiCLJdFOTpTJXzVDFnZBHxEO9TCYSbFPJcSFObPCSeDDXlDM AgICAgICAgICAgICAgICAgICAgICAgICAgICAgICAg EQLwWKFaYBEuMGKpDOOdEMKwFWNaUAYoAGDjJNTrKBZkSVJqAMExGBSrRHJnDQIaKXWtDE9NMCOnZWMr ICAgICAgICAgICAgICAgICAgICAgICAgICAgICAgICAgICAgICAgICAgICAgICAgICAgICAgICAgICAg ICAgICAgICAgICAgICAgICAgICAgICAgICAgICAgIC KeMH3WQPUoXUMlYYZsUBMjLYUkTUUxWSBiTGAnGXCfGFIxFTGdHPNfWPYsSZImNDEdULZqHBWhYQFjCI TaOGJqTOHfYQIrZDHkYJGbBKZdCPLzTWCbZAJxTOVgHQLlPPDyDHJwFQZsWX7MPJMtLNTfJJQtZTXsGP AgICAgICAgICAgICAgICAgICAgICAgICAgICAgICAg AATqWRVaQYIiXSAeOCNcYYDfDQHuGJCkLOWdQLTiBOBjRLLwFFDpBDHzJEQeVJFyUNYpSAKdQK4MDY20 cUUju6B1ATVtJC8saqj/Vj0YGTkckdZaqBBiMH4XGwNeVF0ltd8UZoYiWX0pde2QMYjKDjVkY4F7aTNt HIBzJMWZQtYzR40dDPxiTj08IAhyPDPfBlZhPOn1Cg 4WGkHiY6jdJSDiKlL2OBPyPdJlHHimXZ5Md9WbxYAfIYj+Ux4EAO1jv3YfCSdgPMOwOW0lht1ZFUyZYd TiW3HiotJ2VWWuTZWjPu4WUDUaBOYwhRZkRLAwRBXEFwPlR1FvhT29ODGADz4+DQplbmRvYmoNCjIwID Ekq5NwHZd6AO1QMFNnXYp9kHPbGXPmZ4Bfy2TqMq84 AOQmOebeLXXwKGPBGTGzzaOrFY0aVIGdOD3wZD2mMWFiUQFdQeLtGOHZBM6RNKOfYUHqnFDfHNWtPZNG UU8UTLqpLPN5KJAzgbDtnIYsNLslFN9HEBPaciRqKWvdCSGQBGq+Wq2JLU4ua1AeEUhoQNYcQQ5bvv5C VJzUQuRoE4B4tSIuQ2I8MIkqUi1WSABeRRHyOSrfDV QUWLyuHN8XLF2eljW3CU0RyKOtRQDpBRJvrBRcRHs5Z21ruUReIIugBQ5VUIH+Immanuel+Or6ENZIwTOCvDU EdSwYwOKLTVnAjY4WgR1CNa4CuU2ZvAZ33qXhdvhVoJGngOB7FOA1oTNJnSGKBLH5XhNUpxF8dseSoKB RuZFTTAaUxN10trRKyQNCjVZY7BYKvNz3PYPDjS6Hk toLzeBajjkWeRBLjWMTQTJ4WKEucjgDuoSHpoZliWI81wNvhNM1VNb1SWnUjUG6pcq7AzVRpAl7TQZWs Qo6EZEBiHYEwKYRkPRV0FWHvLsEzTNyqTRNnRPGsVPV5EIBdFAPzDB9TTtHmLZZtTII4UcLrPMStOOKa bi6XSXDpULFwRVF4QXZzJPKfYPEmHYpxHFFrWLTpJL G2OLOdADJpFG6GZhImFALlUTMqWCxlOUTeJAFrxd2PAPSpFPFcLGF4TGPrLWWjTAWgSJxfIBHbXKNmMF BbUEHdETFtGO5EDzKnFWNhLSO7UHMgCJKiQPUqdw7WWSBeSUSvHbnoAvFsKOAvZNSvZEykXIWqVRGnPG f2YIBhGXNkHE6CJtQrJWFaDSJmGHUcESInZAViaz3T SPAjRBEtDMQ9XmNrUGMjVQPdRQhhYNNgGGM5MdS7XSOyPBXrYB8GTpJgVLOeOGQ2TZNcKNCvKMNpam5D GNOgPGWaRgJ1RyKgCGAoGVUtBAxiWTHcZKI8IlmgNNKiENNzVR5HPtWrTVVhOZC2QjpmDOMnUSEbiz1C MLDlGFSsGrpbOSGoYTBrJCEuAIkhBHWqNNF0Qru3UO ZiPAXoBE8SRhIxWWOfOYb2BSsyHCQiSJCgzn8DQMYmTTOaQJL6SjZbOSVsYCFjGFf2llPrlYKrXYq0AZ 4SM3CsgyNxMeINXm9Vz798EZZpBYLsQh8AJ0deGq8fXUTaADAUPh3NEOb3ZWF2QUV2URelZdetTUnkAa M6N0J7REuqESQjJJTtGsH+EZy9JfRfWNawRIL0A9Cz ZIB9BpdgOZTqHNW2OLVbNhIbYp0nIDOVWb8+MMnzqATffEpbTAGICcE0XRG3OYbaKXXFIk1B ID Date Data Source [id number] 12/20/2020 11:50:25 AM EDT [facility] Name Value Range Interpretation Code Description Data Belinda rce(s) Supporting Document(s) Leukocytes [#/volume] in Blood by Automated count 12.7 10*3/uL 4-[address] [facility] Erythrocytes [#/volume] in Blood by Automated count 3.19 10*6/uL 4.6- 6.[address] [facility] Hemoglobin [Mass/volume] in Blood 9.8 g/dL 13.5-[address] [facility] Hematocrit [Volume Fraction] of Blood by Automated count 29.3 % 4 1-[address] [facility] Erythrocyte mean corpuscular volume [Entitic volume] by Auto mated count 91.9 fL 80-96 [facility] Erythrocyte mean corpuscular hemoglobin [Entitic mass] by Automated count 30.9 pg 27-33 [facility] Erythrocyte mean corpuscular hemoglobin concentration [Mass/volume] by Automated count 33.6 g/[facility].0[facility] width [Ratio] by Automated count 14.5 % 11.5-14.5 [facility] Platelets [#/volume] in Blood by Automated count 428 10*3/uL 150-[address] [facility] Differential cell count method - Blood [facility] Neutrophils/100 leukocytes in Blood by Automated count 87 % [facility] Lymphocytes/100 leukocytes in Blood by Automated count 6 % [facility] Monocytes/100 leukocytes in Blood by Automated count 6 % [facility] Eosinophils/100 leukocytes in Blood by Automated count 0 % [facility] Basophils/100 leukocytes in Blood by Automated count 1 % [facility] Neutrophils [#/volume] in Blood by Automated count 11.06 10*3/uL 1.8- 7.[address] [facility] Lymphocytes [#/volume] in Blood by Automated count 0.82 10*3/uL 1.2-[address] [facility] Monocytes [#/volume] in Blood by Automated count 0.80 10*3/uL 0-0.8 [facility] Eosinophils [#/volume] in Blood by Automated count 0.01 10*3/uL 0-0.5 [facility] Basophils [#/volume] in Blood by Automated count 0.06 10*3/uL 0-0.2 [facility] Nucleated erythrocytes/100 leukocytes [Ratio] in Blood by Automated count 0 /100{WBCs} 0-0 [facility] ID Date Data Source [id number] 12/20/2020 12:37:00 PM EDT [facility] Name Value Range Interpretation Code Description Data Belinda rce(s) Supporting Document(s) Albumin [Mass/volume] in Serum or Plasma by Bromocresol green (BCG) dye binding method 3.4 g/dL 3.5-5.2 [facility] Bilirubin.total [Mass/volume] in Serum or Plasma 0.4 mg/dL <1.2 [facility] Calcium [Mass/volume] in Serum or Plasma 11.5 mg/dL 8.6-10.[address] [facility] Chloride [Moles/volume] in Serum or Plasma 96 mmol/L 98-[address] [facility] Creatinine [Mass/volume] in Serum or Plasma 1.28 mg/dL 0.70-1.[address] [facility] Glucose [Mass/volume] in Serum or Plasma 146 mg/dL 70-[address] [facility] Alkaline phosphatase [Enzymatic activity/volume] in Serum or Plasma 144 U/L 40-[address] [facility] Potassium [Moles/volume] in Serum or Plasma 3.6 mmol/L 3.4-5.1 [facility] Protein [Mass/volume] in Serum or Plasma 6.8 g/dL 6.4-8.3 [facility] Sodium [Moles/volume] in Serum or Plasma 134 mmol/L 136-[address] [facility] Aspartate aminotransferase [Enzymatic activity/volume] in Serum or Plasma 30 U/L <40 [facility] Urea nitrogen [Mass/volume] in Serum or Plasma 10 mg/dL 8-23 [facility] Osmolality of Serum or Plasma by calculation 280 mosm/kg 275-300 [facility] Creatinine/Urea nitrogen [Mass Ratio] in Serum or Plasma 8 [facility] Bicarbonate [Moles/volume] in Serum 23 mmol/L 22-29 [facility] Alanine aminotransferase [Enzymatic activity/volume] in Seru m or Plasma 22 U/L <41 [facility] Anion gap 3 in Serum or Plasma 15 mmol/L 8-15 [facility] Glomerular filtration rate/1.73 sq M pre dicted among non-blacks [Volume Rate/Area] in Serum or Plasma by Creatinine-based formula (MDRD) 59 mL/min/1.73m2 >[address] [facility] Glomerular filtration rate/1.73 sq M pre dicted among blacks [Volume Rate/Area] in Serum or Plasma by Creatinine-based formula (MDRD) 69 mL/min/1.73m2 >60 [facility] ID Date Data Source [id number] 12/20/2020 12:47:30 PM [facility] Value Range Interpretation Code Description Data Belinda rce(s) Supporting Document(s) Prostate Specific Ag Free/Prostate specific Ag.total i n Serum or Plasma 3.4 ng/mL <4.0 [facility] Serum levels of PSA should not be interp reted as absolute evidence of the presence or absence of Cancer. Results obtained with different methods cannot be used interchangeably. This method is manufactured by [employer] and is an electrochemiluminesence immunoassay. ID Date Data Source [id number] 12/15/2020 05:14:47 PM [facility] Value Range Interpretation Code Description Data Belinda rce(s) Supporting Document(s) Progress Note [facility] OWYWAk3eIpFNQaCl73/UOUrfIFQdq6RtFXmzNQb4LPoaCYMfF4FbPDQ6gD1gFDB1NGnVGbIhEaXuMHG4 lbm [file] Rg0K ID Date Data Source [id number] 12/15/2020 07:01:26 AM EDT [facility] Name Value Range Interpretation Code Description Data Belinda rce(s) Supporting Document(s) Progress Note [facility] BSBJMu1uWhDMQiCr50/TLPbxTQUpt7MqLDijEFg1KXtvTXXlM4PjMPE0vH9kCBH6PEbXDoNwZpLcBIN3 lbm [file] AY/1B08s7i33TtYJ6UANPb/HM1a+e7z3K92T+S5c78 c7Kugxp9m3yhwsXMfRglIK5pkcBVxTyCBQrgXYjw98yktbm3HTs89Q1jRR9jC6bTjlpn9HOYX/hq9Wfr maintenance groundskeeper+KnT5zdlMYDsGBgg5FtW7qJaASShazETauwpD3JrkSofTjzWXCO8YmH+OV+4DXgLeoGBIHRgFe+Xo [file] CcX1PUOzHSRuUrF2PUOfSbexRiJuGR4HOy0EFdO2QXZ4fYAlNd6NUeGxDEtGKoIdHW7UPZj= ID Date Data Source [id number] 12/15/2020 07:01:21 AM EDT [facility] Name Value Range Interpretation Code Description Data Belinda rce(s) Supporting Document(s) Progress Note [facility] VWNJOp6bMoYCQqTf60/VGLvlNXWui4BjOTavUNy0GBfcMUAxW4LyZKP6xS0jDAS3YIsKLcGvNvUgAHC4 lbm [file] ICAgICAgICAgICAgICAgICAgICAgICAgICAgICAgICAgICAgICAgICAgICAgICAgICAgICAgICAgICAg ICAgICAgICAgICAgICAgDQogICAgICAgICAgICAgIC AgICAgICAgICAgICAgICAgICAgICAgICAgICAgICAgICAgICAgICAgICAgICAgICAgICAgICAgICAgIC AgICAgICAgICAgICAgICAgICAgICAgICAgDQogICAgICAgICAgICAgICAgICAgICAgICAgICAgICAgIC AgICAgICAgICAgICAgICAgICAgICAgICAgICAgICAg ICAgICAgICAgICAgICAgICAgICAgICAgICAgICAgICAgICAgDQogICAgICAgICAgICAgICAgICAgICAg ICAgICAgICAgICAgICAgICAgICAgICAgICAgICAgICAgICAgICAgICAgICAgICAgICAgICAgICAgICAg ICAgICAgICAgICAgICAgICAgDQogICAgICAgICAgIC AgICAgICAgICAgICAgICAgICAgICAgICAgICAgICAgICAgICAgICAgICAgICAgICAgICAgICAgICAgIC AgICAgICAgICAgICAgICAgICAgICAgICAgICAgDQogICAgICAgICAgICAgICAgICAgICAgICAgICAgIC AgICAgICAgICAgICAgICAgICAgICAgICAgICAgICAg ICAgICAgICAgICAgICAgICAgICAgICAgICAgICAgICAgICAgICAgDQogICAgICAgICAgICAgICAgICAg ICAgICAgICAgICAgICAgICAgICAgICAgICAgICAgICAgICAgICAgICAgICAgICAgICAgICAgICAgICAg ICAgICAgICAgICAgICAgICAgICAgDQogICAgICAgIC AgICAgICAgICAgICAgICAgICAgICAgICAgICAgICAgICAgICAgICAgICAgICAgICAgICAgICAgICAgIC AgICAgICAgICAgICAgICAgICAgICAgICAgICAgICAgDQogICAgICAgICAgICAgICAgICAgICAgICAgIC AgICAgICAgICAgICAgICAgICAgICAgICAgICAgICAg ICAgICAgICAgICAgICAgICAgICAgICAgICAgICAgICAgICAgICAgICAgDQogICAgICAgICAgICAgICAg ICAgICAgICAgICAgICAgICAgICAgICAgICAgICAgICAgICAgICAgICAgICAgICAgICAgICAgICAgICAg VGOjOFUgECSlFCZeEQDoTZCvJMBvJLAuKNp8J6jiWK UbMAWgSP1fHKj8Mi4+VWtGNcVcQGM3bkGmdY8YDT5xm0VyLPzgPBNfy3LqOGj5CA1YITCrZPnyXO3PCX hxyd3PUHLdXOPykVKGf2rjHoAjIVM1AXQrBamyQZ5QAJMuM0rcavWdLCWbOABKXWknMDUIWOXoVMHcZf LbEzNdQJHeTWGqIQWYCLT1ZCUgErXzABXzZBBzRvSv IUPLJC7EArYuV1JahX87EGtTHu6+RNdjlgHjIpvMJpN9FMHcn0XmMXt4AQ4EWRMiUswyv8YsXwfqKWVX KPhbWU7UVGC5WJZ9HUPsRw0CATTwV480qkZnUB1WEy4PScRgXP0wor4CGrkkLDZpSauVWcm1KJifMV4Q vJJqPJxNyr0kkeZphhYKd6PdokHciYSWSN7rRFJOKZ fsdKSyFQWcXJ6OQDH7JUioWhlrRzBxOZOhNUm8ISUCUIxWCpOiV4Rho9QkVlZ6OKCgBfBvQYxgVUZdJx L3QG70sAyhXZ8GMCRlNQPtPH00YQD0YVSpDj1KLw0GUdWyUJ4ovy0MIjMvIY4haa2CVHyMHjYvP4V8mZ MlL1Ffli01BD3JkFN0rRJnDY2RwF6aRE2Ql0WkNCWj WaJfEKFzLIFbAQIcGXAtPeKaVI3DKZFqIyMkxFXcXNFjSRS6DVVtGaS8MQXmZL7KDYHfVDP6WY6VRM6U AqcjC0IDUYqlrKtqUmPLPTJ/VPKGPPPLYAxwEKLyS91VW4KXXDdTQbptRPzGVdtfKa2pOZl+Vi5VMT8i d4RaFFkiXWQeMH3bto8TMYzWTqFqQ3H8kVLmL4U2UK oiLm2OLMWzKOUxDnVpSLPKFTiwGL0AUU5tcwR1KF7VrBGpNRXjTNChwFNbGFm8N67llPPkVPluTI7QIN A+Immanuel+Tr6FKGMpIBEzQXRmAgAfSDEEYuKnC9WcE6ZPt1YoV2XnID91cKmeqmQoICprYK7MMX7sDNZsMC LRDS0MmOAifK0pquObTuGoLCDJSxJwQ64fcVDwEHGq QWR9EOTdUi5LPYNgY2JumtSmsOsooaKkJUKcKPSQOA4JXQjewaAlsJBinQcgLC35jExnTY4YLz3SBeXo PU8mak1KfQNcTn6CBAK8CG0ISMJnNVNnRUFzGUF0SXWxJeSsKKreKMIvGUDuXDO8GULfRFYxLL1GVuVp UKDlYNL1PQToVFAfXYHkzn8PFTXcOBO9GGXxOKHqUR SaFHKgOBayXHJmNJNeLSB7GQLaKGCzMC2DTcMnCFJtPQS0UpvaHQZyAGIbyh6LNNWkDUI6AeEhWVGhIL PrDMDdQIbsFWUgCTR3UsA8ALSnSHVxPY1PYiCqCYNpOOesMtOxZBEgKKIctv9BBHXlZRLuQTB4CsTfOV HuKWDxLOboOGAqWVSoYmI4PHFdIIRlLG0CBmDgWGNy CNJ3ZjepMTEeRQSyod3QKENxCVMnEYatRlQhYYGaBTGpHAlxQHHzENV9THNrFBUlTMGnUJ2OFrJlXSXn KNx6CuArMIVnAHStrd1PKAVmFVMwUAYkQYNiYTEzWSUwAFxkXLLgPJBgSMJ8SDIgVPOrBF9TJtSeKYMa StH1JjYtVQRmMEZmzk6PLAMdDBYwNWRaDMLkDEOyYS UvINicOWOiQSP8QOM9HAPsKPBrTB9ELwLfJCGjNaqnFGExQJHcMJJtge3NNFEtJWDjKzIqMlBhUKHdKD AjFWjuMOSyXSO1DDzuQHFaJHLoKJ6PAjFgVZQwQaf6LqprUHOsGPJcsa5KJDSxBRCyFRz4CpWbBTBqHI RiCZckXSFzWAZ5GTLwSALbXRHzPN1ZZnSwINScMfSq HiLxKLQcAEOnya2RPEJzONJzLKBfTVAnMLPdSAAgUTamRSYrRLCoCaAcACNaYEHnPR2MZmHbXGKsESE1 ZuImBGZxUWWbei0VGWWaNIO1SgA2KZSqJGCySMTsGCvfRWNgGLUjSQT2NYNzRAEuES6HQaLjHSArFRP7 YiWgJQNlTKJznq8SLGJvGHI5JtNjSHUoSCRsCKZrZL gzFILkQLAzXhAcSEUwZRCaFB0SAmKrFOFpCHB3AHUqKOReVMRqsw5QIYGhPUD3MFG9ECFfFUFpWJMtLK rjIXOxFMI2Ggf3REJkYYGuAM8IMhNnFDVuNHI2DBRoHNVtGBHsmr0TKDYwCOR7VhZ4STVzEBDoIYIjWR s4ngOazFTyJZq5CS5ZK3ClmkKpPLHLHn5Sq162NWH8 BFIuPi3PV5ylCx7bBHIqFRZNOe1RPCt3ZAI0YzPnGOEqTDR1OLseVFj4W9PyLEa0MjZ5BfSpAVM+IDww RBQuNtXxRiG6KgQ0GFNpITvyEzA2UpYgVdWtAvBiNl4jLYZWLd8+YXjckTBybKecDNDFKfZ3IJY7YQtl MTPFMd3U ID Date Data Source [id number] 12/14/2020 12:57:39 PM EDT [facility] XR ABDOMEN AP SUPINE AND AP ERECT [id number] INAL RESULTInterpreted by:ALICIA PereiraICATION: abdominal pain with inability to tolerate PO [...] rce(s) Supporting Document(s) ID Date Data Source [id number] 12/14/2020 11:06:21 AM EDT [facility] Name Value Range Interpretation Code Description Data Belinda rce(s) Supporting Document(s) Leukocytes [#/volume] in Blood by Automated count 10.0 10*3/uL 4-10 [facility] Erythrocytes [#/volume] in Blood by Automated count 3.52 10*6/uL 4.6- 6.[address] [facility] Hemoglobin [Mass/volume] in Blood 11.2 g/dL 13.5-[address] [facility] Hematocrit [Volume Fraction] of Blood by Automated count 32.8 % 4 1-[address] [facility] Erythrocyte mean corpuscular volume [Entitic volume] by Auto mated count 93.1 fL 80-96 [facility] Erythrocyte mean corpuscular hemoglobin [Entitic mass] by Automated count 31.7 pg 27-33 [facility] Erythrocyte mean corpuscular hemoglobin concentration [Mass/volume] by Automated count 34.0 g/dL 32.0-[facility] width [Ratio] by Automated count 14.4 % 11.5-14.5 [facility] Platelets [#/volume] in Blood by Automated count 506 10*3/uL 150-[address] [facility] Differential cell count method - Blood [facility] Neutrophils/100 leukocytes in Blood by Automated count 70 % [facility] Lymphocytes/100 leukocytes in Blood by Automated count 18 % [facility] Monocytes/100 leukocytes in Blood by Automated count 11 % [facility] Eosinophils/100 leukocytes in Blood by Automated count 0 % [facility] Basophils/100 leukocytes in Blood by Automated count 1 % [facility] Neutrophils [#/volume] in Blood by Automated count 7.02 10*3/uL 1.8-[address] [facility] Lymphocytes [#/volume] in Blood by Automated count 1.79 10*3/uL 1.2-[address] [facility] Monocytes [#/volume] in Blood by Automated count 1.07 10*3/uL 0-0.[address] [facility] Eosinophils [#/volume] in Blood by Automated count 0.00 10*3/uL 0-0.5 [facility] Basophils [#/volume] in Blood by Automated count 0.08 10*3/uL 0-0.2 [facility] Nucleated erythrocytes/100 leukocytes [Ratio] in Blood by Automated count 0 /100{WBCs} 0-0 [facility] ID Date Data Source [id number] 12/14/2020 12:03:22 PM EDT [facility] Name Value Range Interpretation Code Description Data Belinda rce(s) Supporting Document(s) Albumin [Mass/volume] in Serum or Plasma by Bromocresol green (BCG) dye binding method 3.7 g/dL 3.5-5.2 [facility] Bil[facility].total [Mass/volume] in Serum or Plasma 0.3 mg/dL <1.2 [facility] Calcium [Mass/volume] in Serum or Plasma 10.7 mg/dL 8.6-10.[address] [facility] Chloride [Moles/volume] in Serum or Plasma 96 mmol/L 98-[address] [facility] Creatinine [Mass/volume] in Serum or Plasma 1.13 mg/dL 0.70-1.20 [facility] Glucose [Mass/volume] in Serum or Plasma 113 mg/dL 70-140 [facility] Alkaline phosphatase [Enzymatic activity/volume] in Serum or Plasma 114 U/L 40-129 [facility] Potassium [Moles/volume] in Serum or Plasma 3.3 mmol/L 3.4-5.[address] [facility] Protein [Mass/volume] in Serum or Plasma 7.1 g/dL 6.4-8.3 [facility] Sodium [Moles/volume] in Serum or Plasma 136 mmol/L 136-145 [facility] Aspartate aminotransferase [Enzymatic activity/volume] in Serum or Plasma 38 U/L <40 [facility] Urea nitrogen [Mass/volume] in Serum or Plasma 13 mg/dL 8-23 [facility] Osmolality of Serum or Plasma by calculation 283 mosm/kg 275-300 [facility] Creatinine/Urea nitrogen [Mass Ratio] in Serum or Plasma 12 [facility] Bicarbonate [Moles/volume] in Serum 22 mmol/L 22-29 [facility] Alanine aminotransferase [Enzymatic activity/volume] in Seru m or Plasma 14 U/L <41 [facility] Anion gap 3 in Serum or Plasma 18 mmol/L 8-[address] [facility] Glomerular filtration rate/1.73 sq M pre dicted among non-blacks [Volume Rate/Area] in Serum or Plasma by Creatinine-based formula (MDRD) 69 mL/min/1.73m2 >60 [facility] Glomerular filtration rate/1.73 sq M pre dicted among blacks [Volume Rate/Area] in Serum or Plasma by Creatinine-based formula (MDRD) 80 mL/min/1.73m2 >60 [facility] ID Date Data Source [id number] 12/14/2020 12:10:23 PM EDT [facility] Name Value Range Interpretation Code Description Data Belinda rce(s) Supporting Document(s) Prostate Specific Ag Free/Prostate specific Ag.total i n Serum or Plasma 4.3 ng/mL <4.[address] [facility] Serum levels of PSA should not be interp reted as absolute evidence of the presence or absence of Cancer. Results obtained with different methods cannot be used interchangeably. This method is manufactured by [employer] and is an electrochemiluminesence immunoassay. ID Date Data Source [id number] 12/03/2020 07:40:58 AM EDT [facility] Name Value Range Interpretation Code Description Data Belinda rce(s) Supporting Document(s) Progress Note [facility] XDGLFd9jGbRCJdLa97/HMGepHPSim9QwZBihHYr0IPpyWIIsH6HyLKJ4cN4kGET7ZFqFAmGwRxYaKML7 lbm [file] SALES [employer]PERATIONS [employer]++jJrAJbp7SABy8JPPUkmIkA2oEZugBJfpWSp/f4 [file] 31mHE/o/M+Maria Fernanda+A/7soimmdt/hK8twZiEflpBqH+l6w5Ok6EXYecgJB6HvxztelwvORzDf8pA/3KlP5z 0h/CYRnvf+uAsCbY1pud/Ac71A6son3PV4WO6O8kEQ xBxCNZ05BD5c+bOdr3RybnPfB/aiGm9Op3bNcphMVGjKr0Las5z4OStnRB4aJLgvGN7/KmQEwHFF+iCN CYAxInjoYW0HtsuE7ArMj89G1gjFgrwjF+/HeS/24sul29e+ZbFFe0CkHtxAFaMol01kk2n1ISbALKxM Ysvjb6l0/w5SeH8PntwP3/2i1mDJcPXRIDykkViQtn 65B/hVnjzVrA8y2Nl+iXBTY1ZK68NQpm+J9qMN8gdMCkP7KtZUY+E+G+X5PKllviE5af7INCwJY23Uon 80K/0T8mS0gm/wmJX+wAZgCdz/CaA/P/UC6W1E3hZ+t5b1ZczP8yT0o+E/D3gS/k/jRbjCgxe04IRQet JtsKK2POhSIj5ua/0q6wNXF3+IUkhZb6PT1QbB4ZQ6 I1rzSL77uPRsJ7Hn0k+BfIcWUK7c0RVe78+w61RmA98jN+M4FO+xvs16rdoNhURTjiIwarm/C/3RpmL8 ZiMJ7BsT8HELfQa/Ya3Z5NtGl7CljGlDM1KR+aJcdr/kmh6NroiWrJQUkv0GgF/rMlZKbR5g+AxYhU3v Y9CXUtJeUUHupliml1Nc846T6A9D8FE6j9Y/dPo0R7 XkNPXG0Zq1t/3ft4/8F/rU/pCItpNdlx8MsIYmlb2Jd81vjn/+l/vyw/GX2f83q+p3+wrAgnLkN3NCUN lg9kZHk/BRENDA/iPpOd+X3++3vG9/Gt2feCUx6MN06nZ9QbQjXIKeIl6ahEdR/PhVe7xLCA+K893O4nVVu [file] PRYCPSheLZ7KKH7dteO9CA1GrUMcFAZtIGAbqAEiMHg2U23bhYJgJNkhPN4ATUO+Immanuel+Pq5IRMTjEHJm SRQtZzEjFCGDJfCdI0BpR9XSk2YqL5JeHW34yVzxhsCxGNunOW5FHE4hMXHyCGLBYJ7ZfQQlkX6boyKt SxLdANTCAjKuY58jhKIqFJRlHYRiTXGtVi2GWPUmO3 KlbfOceVfkbfJyXZCcCPYIRL5KBNknriGugVMsgGtvIB85jRanEJ0VDz4MTsGqYK0jtm4AzHGnJz2HJT TvDe4WBTIsHIZbASQjITL0TXOaDoIxFAbxKYLpSURhUSH4REPuGOXsPT7FObYqCISgIZjjRNRlZBCyYT Gpza4COEOjJJW5OXr4KCXrDVKvEINuOJvmJBBcBSIc VNU8NOUxDFEgAZ8YUvAtHYGmGDN8WNqsGAOvGOYmxn0OMDMzBEGjFXL2KCTlHGCwVNVfYPwxQKUlPUF6 QxNaSQXqUWJjDX0IJaOnLEXoXYl6CXuqSCEpXTEnhk6BYZZtNTCjNmFcToCyEELnBAIlJDclPUWySWAz LAOnRLEqNLBeSC9GXtDsAASqNLLoPNyiFZDjOOJiwa 1EYRSxMUSyGQKlFKWfTGXrUWWtMVysPDEzCJD8NJR9SSJdIHBnUV5AZzUbHKGxUZsoWYvyFRTdJIJnho 7XVESnNVX1PEG1CFPwVYUhVEXdUJlhELPuYLO9OIm5KAUhMBVgKA9XVyPtUSWmAOlhGEYgMOIbONWjkd 7GGKGyETMbJNA5XFGqOYWdGEQtPIzsNHRoJMC5Lqcs LJXuROWiRV2IRuHxYWUpFCt2NBPcLHGbVYLqxj5RNVAnSHAwGESlDeVtIWItOPXrAWluIBHmDKBbDoY2 CWJzJXSxUA7WNfWuOBLpPtP8IWZkQWFcBKJfgp6RYBVrWJL0MwraIzKaAHZyCOCtULzbFAPuCAW4ITZ8 BJIcCKUwCT4SFwFtXOCzHIW4KeblNBZoLWMrol6LVE BdWQD9ERLeVvJcNWQgMGJkSUjlRBXaNKB1MbliKDBoAPCnRZ6CUnAsPXTtPRA7QhLnXYTuBFUzaj4WOA SuXID2CubwLUCcTLZdLWHiRCdaZPJwPGI9IAtxDKJoFJNlOJ4JKrOtEECuYWv3FMucUSTpBAOcpw6WGK DaBKQ3KHh4KtUfKMHaYNOaHZgbLKJaOTP2CVL1SLEm HIHwLM3VWqQiOPSmSBq1KNSfJMRiXYStjz8ExYIhcIzyqo8ARDeYRo9AiHylYRB2MXsvDq3fiRXdMAAp GQBQMx7XknHdXKPmQRZTVEffJHMrGQSoJhsrVLJdGFuzGSD6AbUmFUDrRgTtLdJ8FPHsWAP2KjD6DXJ9 CQJ3FKY9ZOL7QoMbLIH3ARGtCkYyFmb6RtY9DiP+IF 0gDQo+Bg3Ym5BpwtF4fzRnAIw6OPb2JK2QRDQVE1GJBq== ID Date Data Source [id number] 12/01/2020 04:11:47 PM EDT [facility] MR LUMBAR SPINE WITH AND WITHOUT CONTRAS T [id number] RESULTInterpreted by:Savita Silva MD11/22/2020 4:48 PM MR LUMBAR SPINE WITH AND WITHOUT CONTRAST [id number] CLINICAL INFORMATION: rule out new fracture in [...] high-grade central canal stenosis. Mild right and klnz-qo-ujmtsvvo left neural foraminal narrowing is seen.L5-S1: Pseudo [...] rce(s) Supporting Document(s) ID Date Data Source [id number] 12/01/2020 04:11:27 PM T [facility] MR THORACIC SPINE WITH AND WITHOUT CONTR AST [id number] RESULTInterpreted by:Savita Silva MDEXAMINATION: MR THORACIC SPINE WITH AND WITHOUT CONTRAST [id number] INDICATION: rule out new fracture in setting [...] rce(s) Supporting Document(s) ID Date Data Source [id number] 11/24/2020 02:35:[address] [facility] Name Value Range Interpretation Code Description Data Belinda rce(s) Supporting Document(s) Progress Note [facility] SPICFb7lMrFOBtXy30/WUBekEYSkt1WyQErmDNh6KWiaRATdF6SyNAW5cM3wQZF4PKtUIeQeEvXtTqK6 lbm [file] [id number] ID Date Data Source [id number] 11/23/2020 09:31:18 AM EDT [facility] Name Value Range Interpretation Code Description Data Belinda rce(s) Supporting Document(s) Leukocytes [#/volume] in Blood by Automated count 7.1 10*3/uL 4-10 [facility] Erythrocytes [#/volume] in Blood by Automated count 3.71 10*6/uL 4.6- 6.[address] [facility] Hemoglobin [Mass/volume] in Blood 12.0 g/dL 13.5-[address] [facility] Hematocrit [Volume Fraction] of Blood by Automated count 35.3 % 4 1-[address] [facility] Erythrocyte mean corpuscular volume [Entitic volume] by Auto mated count 95.1 fL 80-96 [facility] Erythrocyte mean corpuscular hemoglobin [Entitic mass] by Automated count 32.3 pg 27-33 [facility] Erythrocyte mean corpuscular hemoglobin concentration [Mass/volume] by Autom[facility] 33.9 g[facility] width [Ratio] by Automated count 14.5 % 11.5-14.5 [facility] Platelets [#/volume] in Blood by Automated count 365 10*3/uL 150-400 [facility] Differential cell count method - Blood [facility] Neutrophils/100 leukocytes in Blood by Automated count 66 % [facility] Lymphocytes/100 leukocytes in Blood by Automated count 24 % [facility] Monocytes/100 leukocytes in Blood by Automated count 8 % [facility] Eosinophils/100 leukocytes in Blood by Automated count 1 % [facility] Basophils/100 leukocytes in Blood by Automated count 1 % [facility] Neutrophils [#/volume] in Blood by Automated count 4.65 10*3/uL 1.8-[address] [facility] Lymphocytes [#/volume] in Blood by Automated count 1.73 10*3/uL 1.2-[address] [facility] Monocytes [#/volume] in Blood by Automated count 0.58 10*3/uL 0-0.8 [facility] Eosinophils [#/volume] in Blood by Automated count 0.09 10*3/uL 0-0.5 [facility] Basophils [#/volume] in Blood by Automated count 0.08 10*3/uL 0-0.2 [facility] Nucleated erythrocytes/100 leukocytes [Ratio] in Blood by Automated count 0 /100{WBCs} 0-0 [facility] ID Date Data Source [id number] 11/23/2020 09:58:20 AM EDT [facility] Name Value Range Interpretation Code Description Data Belinda rce(s) Supporting Document(s) Albumin [Mass/volume] in Serum or Plasma by Bromocresol green (BCG) dye binding method 3.7 g/dL 3.5[facility]5.[facility] al Bilirubin.total [Mass/volume] in Serum or Plasma 0.4 mg/dL <1.2 [facility] Calcium [Mass/volume] in Serum or Plasma 9.4 mg/dL 8.6-10.0 [facility] Chloride [Moles/volume] in Serum or Plasma 100 mmol/L 98-107 [facility] Creatinine [Mass/volume] in Serum or Plasma 0.72 mg/dL 0.70-1.20 [facility] Glucose [Mass/volume] in Serum or Plasma 117 mg/dL 70-140 [facility] Alkaline phosphatase [Enzymatic activity/volume] in Serum or Plasma 103 U/L 40-129 [facility] Potassium [Moles/volume] in Serum or Plasma 3.9 mmol/L 3.4-5.1 [facility] Protein [Mass/volume] in Serum or Plasma 6.8 g/dL 6.4-8.3 [facility] Sodium [Moles/volume] in Serum or Plasma 135 mmol/L 136-[address] [facility] Aspartate aminotransferase [Enzymatic activity/volume] in Serum or Plasma 31 U/L <40 [facility] Urea nitrogen [Mass/volume] in Serum or Plasma 12 mg/dL 8-23 [facility] Osmolality of Serum or Plasma by calculation 280 mosm/kg 275-300 [facility] Creatinine/Urea nitrogen [Mass Ratio] in Serum or Plasma 16 [facility] Bicarbonate [Moles/volume] in Serum 21 mmol/L 22-[address] [facility] Alanine aminotransferase [Enzymatic activity/volume] in Seru m or Plasma 19 U/L <41 [facility] Anion gap 3 in Serum or Plasma 13 mmol/L 8-15 [facility] Glomerular filtration rate/1.73 sq M pre dicted among non-blacks [Volume Rate/Area] in Serum or Plasma by Creatinine-based formula (MDRD) >[address] [facility] Glomerular filtration rate/1.73 sq M pre dicted among blacks [Volume Rate/Area] in Serum or Plasma by Creatinine-based formula (MDRD) >60 [facility] ID Date Data Source [id number] 11/23/2020 10:38:[address] [facility] Name Value Range Interpretation Code Description Data Belinda rce(s) Supporting Document(s) Prostate Specific Ag Free/Prostate specific Ag.total i n Serum or Plasma 2.8 ng/mL <4.0 [facility] Serum levels of PSA should not be interp reted as absolute evidence of the presence or absence of Cancer. Results obtained with different methods cannot be used interchangeably. This method is manufactured by [employer] and is an electrochemiluminesence immunoassay. ID Date Data Source [id number] 11/19/2020 11:15:56 AM [facility] Value Range Interpretation Code Description Data Belinda rce(s) Supporting Document(s) Progress Note [facility] CETHJd4bBiOAHaSs12/FQUuoRBUul0MbZFxdGGy4AZwdTIKfL4GtLJU9rQ6zLGB6WBzVCdCsVqGnVbZo [facility] [file] ICAgICAgICAgICAgICAgICAgICAgICAgICAgICAgICAgICAgICAgICAgICAgICAgICAgICAgICAgICAg ICAgICAgICAgICANCiAgICAgICAgICAgICAgICAgICAgICAgICAgICAgICAgICAgICAgICAgICAgICAg ICAgICAgICAgICAgICAgICAgICAgICAgICAgICAgIC AgICAgICAgICAgICAgICAgICAgICANCiAgICAgICAgICAgICAgICAgICAgICAgICAgICAgICAgICAgIC AgICAgICAgICAgICAgICAgICAgICAgICAgICAgICAgICAgICAgICAgICAgICAgICAgICAgICAgICAgIC AgICANCiAgICAgICAgICAgICAgICAgICAgICAgICAg ICAgICAgICAgICAgICAgICAgICAgICAgICAgICAgICAgICAgICAgICAgICAgICAgICAgICAgICAgICAg ICAgICAgICAgICAgICANCiAgICAgICAgICAgICAgICAgICAgICAgICAgICAgICAgICAgICAgICAgICAg ICAgICAgICAgICAgICAgICAgICAgICAgICAgICAgIC AgICAgICAgICAgICAgICAgICAgICAgICANCiAgICAgICAgICAgICAgICAgICAgICAgICAgICAgICAgIC AgICAgICAgICAgICAgICAgICAgICAgICAgICAgICAgICAgICAgICAgICAgICAgICAgICAgICAgICAgIC AgICAgICANCiAgICAgICAgICAgICAgICAgICAgICAg ICAgICAgICAgICAgICAgICAgICAgICAgICAgICAgICAgICAgICAgICAgICAgICAgICAgICAgICAgICAg ICAgICAgICAgICAgICAgICANCiAgICAgICAgICAgICAgICAgICAgICAgICAgICAgICAgICAgICAgICAg ICAgICAgICAgICAgICAgICAgICAgICAgICAgICAgIC AgICAgICAgICAgICAgICAgICAgICAgICAgICANCiAgICAgICAgICAgICAgICAgICAgICAgICAgICAgIC AgICAgICAgICAgICAgICAgICAgICAgICAgICAgICAgICAgICAgICAgICAgICAgICAgICAgICAgICAgIC AgICAgICAgICANCiAgICAgICAgICAgICAgICAgICAg ICAgICAgICAgICAgICAgICAgICAgICAgICAgICAgICAgICAgICAgICAgICAgICAgICAgICAgICAgICAg ICAgICAgICAgICAgICAgICAgICANCjw/bLSwB0usbDVeakC8P0zgIl0BQk2FKV4py8IsGTMjTKftwpUk PvaQTcSvFYOvCfgZSvd0YPwoZX0YmRXoX4ArS2GdDH iiRC4UGLJrTMOwoHJkCHDuNQQlHwP9KGBqASriPU6MkTMgMMnxXPBiSJVuVODsRYDzPAInNPIZSNRxGQ BhKkEiIESvMFSdALDcLTUBNIO5ZEYcOhGcRLEqECBwQjFpOADGAX1XNmOnG3XcpG35DBgCKd1+DQplbm UeWmdDBmL0MBZvo0MwPXk5XX9QCBKzYvbzw1IhBHxe XTKGZBjpGB1PMRY4CEV8POPyCb0NFNJqR600tvYeJY1EJz1QHlBeTQ7dfp1FFKnhMCIqIdjGMnp2SSur LS5HcRPqAEoEci4unfHzlxDTe3CcbmBocVIXKC8xZqPrhuCkyE1rIQ3MGPV7TXgoJbWpZkXzEYPhHfe5 AEATVHzSDuDzS4Esn7TsGtJ0VIDkMiCiGHymNEAgRq Y1JA40aEonUQ2YBHUhHBZaVN42LQO4UZAqZc6FOa5PNkOfKL1nwb2SYbMlAU8vjc4NNCdAXcBoK5M5mN MfS2Hivw17BK5YmCN5gXCbIQ9KjR6zTI2Le9VjYEEfQqAuJSGjZLBpOCPcPZGaPqSdEB1SRWQzOaXroE VuHFGaZBK0IBIuYeR4TLHrBO4RYOAiWHV9NL3OOL4H HqblU6EMYEbmoVmgSuHIAWT/JNKRWEUCCAjyPPBaG51GJ0WACSoGPysgPWbTVzlzWd3hNFe+Rq9TQH9s x2NiGTp9WSGfAN6lio8JORaPUjEaB0D0zVCkN8H9DDgwKj5ZKDFdQMFmAYNdXJDURSdcGC3CXB7dlgE1 QA7GvHWqYVXvMYTgaECrBOm6Z97ocOUqSMacOG3IGQ A+Immanuel+Mb8DNVKoIHPwLMFtLrScBKCEDhCvE3DaT8PAr7GsW9LtIZ51iXffukNuREemGV2CKD4sEJTuBF CTXP0YbAJgqT5lkdT4ZpRpFJEAVnUzV85teCVjCXRfTJR7KRHmGf3TSNYxD6PghlAxwLwprmErHGHsEV RPKM0MGEhqkvAshAXbzTvbQP36qLhqAX8GNv0UGzKv FX8lmq9JqUBrWt9QXTO1XF5XKNQzUHLgRPYsVCE6KFBkVbKxUNocOUJkCJKvTYJ3XNBzQAIwFJ6KLiYx ISPfAIR1JwFiJOFmYDEofx3XCBKmTIL7JKV6DpEkGISwOUDcKOejALRvISByNFF2LCFzHEGqGK8XYkUq QQNnMAQuTXJaYEOeISYwdh4CZWBkWBJ3FDX4GNZlHE VzHVPeKBsgMKMfVHT6ZuO7JIMaSFQaHF8QSpVgLXXnVKjcJmjpONGaJEFefb1EASNjCGZpPEXyGzIqNT XmQHBkQXatLHUdKXBbRsEeUPMbKLPfDV0TIcMzJEVsACW6MzpvHYSfFLAqzx1GGPFgTAHlSZX3RJOxCW XaVOFuCOzyTHZkJCN4Oht9TGSrNLDdPG5SKaJdSLYu FEs8ZrczEKBzQFMlfi8XSJOtIDQpMNXxDCAePHEuIUWxVVdzSLQgRNTuZof9WHTqMDQqAA3GLmMjDETa TdV4DFUlYXUwOLDazk0UCONoCVErNwVaXyYpFZZyLLLdRAroBGWgWAK9YsP5ZGUbMLVbLD6JElTcROGc BaU0BBRoGPQlSLLjlo7UWFErFJCgFYO1ZqZrHDKcLB ZpTUxzGYQkMFGrFKZ5CQZkNUGhDT6PViUiOUOkFcNkGwLvFAFrNPGpqz4ZMQZcLXIoVkS7MMQhNYOvKJ MrOCtnWVKcTWIiXVf3WVHgWMTbLG2DXwFcEKSfBkC1AyDzISLjCQEavj1OSSAnMNBvEWBpHXNrRXYqKB ChMQitSMXsZOV5DPAeNWXgDYQqRE2RJeRtKBHxHrCb UgSrIYOcUYPfmc1FAXSyDQR3XTMcWxVpTGKkIAUpAIujXJYzSLOtBNQ6RCXoFCSkPO9NCeAkYDLkJdNy MJqnQZMmPOMvvd1DWAWhNIJ5KxieYeDnQCFvWIOqEXwwJDLeYRYqBWDkQUXuHTUeLX2GGgPuIZZgQbJe YNGmYUDqOFIgsa3FQDFxPRJ9TRY5FrItUWRqJXIrQE kzQOKiHGD8StT6VMSuBVJiBZ6OGbLuWWXaFhIdWMIpOSJyDSGjli3RDLUuAFB9HOG8TGJsZLDcCTAdOJ ugUVQgIJX8LrO1JQPzBAHtFL0ZInRnSBFaDTYpYcSrSMHjVOIejg2UGLObFNT1HZGbSzDxMYBxSQIiCG swOHZlJWe9QZF8YFFuGPRfRL5NVyGoPDLpRYLpNLip LXFiUYKhuh3PMVMpHWE8TmNrJIGhMZMwTHYcKHcsLLUvVWd6WAI8AWYySTIuFU3XAwDwQKOcNSg6KFFq BRQbTEMngv7AMDXbUKZ9QCVgFNEfGWFiLBZvEOyaTLLoYQe1QYV7JVWrSFUnII4CDxNbTQywNRBKPya9 MHpbS8b9UVK6JT9ZO7Iay2HiGClfBKCGDFfgFS9wbs CcYKCcVk6HL6hYDmflP6C4BCR3LXCzMHIcFNJhEWX3TIPyXKMyWHXlE3MpYJ0uPNNjLIhhRtW4WvR2TD M4WvG2UGMuXIAkWID6AEInXvI1IkZqRL1MQl0GFyO1SUA1iTUbTz4EMGglWYsIJpCtAR3AQLb= ID Date Data Source [id number] 11/18/2020 12:02:[address] [facility] DEXA HIP AND OR SPINE [id number] RESULTI nterpreted by:Mary Wetzel MDHISTORY: 60-year-old male [...] Value Range Interpretation Code Description Data Belinda e(s) Supporting Document(s) ID Date Data Source [id number] 11/16/2020 03:30:[address] [facility] 2.9Serum levels of PSA should not be int erpreted as absolute evidence of the presence or absence of Cancer. Results obtained with different methods cannot be used interchangeably. This method is manufactured by [employer] and is an electrochemiluminesence immunoassay. Name Value Range Interpretation Code Description Data Belinda e(s) Supporting Document(s) Leukocytes [#/volume] in Blood by Automated count 7.8 10*3/uL 4-10 [facility] Erythrocytes [#/volume] in Blood by Automated count 3.86 10*6/uL 4.6- 6.[address] [facility] Hemoglobin [Mass/volume] in Blood 12.4 g/dL 13.5-[address] [facility] Hematocrit [Volume Fraction] of Blood by Automated count 37.0 % 4 1-[address] [facility] Erythrocyte mean corpuscular volume [Entitic volume] by Auto mated count 95.7 fL 80-96 [facility] Erythrocyte mean corpuscular hemoglobin [Entitic mass] by Automated count 32.2 pg 27-33 [facility] Erythrocyte mean corpuscular hemoglobin concentration [Mass/volume] by Automated count 33.6 [facility] width [Ratio] by Automated count 14.1 % 11.5-14.5 [facility] Platelets [#/volume] in Blood by Automated count 345 10*3/uL 150-400 [facility] Differential cell count method - Blood [facility] Neutrophils/100 leukocytes in Blood by Automated count 63 % [facility] Lymphocytes/100 leukocytes in Blood by Automated count 27 % [facility] Monocytes/100 leukocytes in Blood by Automated count 8 % [facility] Eosinophils/100 leukocytes in Blood by Automated count 1 % [facility] Basophils/100 leukocytes in Blood by Automated count 1 % [facility] Neutrophils [#/volume] in Blood by Automated count 4.93 10*3/uL 1.8-[address] [facility] Lymphocytes [#/volume] in Blood by Automated count 2.14 10*3/uL 1.2-[address] [facility] Monocytes [#/volume] in Blood by Automated count 0.62 10*3/uL 0-0.8 [facility] Eosinophils [#/volume] in Blood by Automated count 0.08 10*3/uL 0-0.5 [facility] Basophils [#/volume] in Blood by Automated count 0.06 10*3/uL 0-0.2 [facility] Nucleated erythrocytes/100 leukocytes [Ratio] in Blood by Automated count 0 /100{WBCs} 0-0 [facility] ID Date Data Source [id number] 11/16/2020 04:04:18 PM EDT [facility] 2.9Serum levels of PSA should not be int erpreted as absolute evidence of the presence or absence of Cancer. Results obtained with different methods cannot be used interchangeably. This method is manufactured by [employer] and is an electrochemiluminesence immunoassay. Name Value Range Interpretation Code Description Data Belinda rce(s) Supporting Document(s) Albumin [Mass/volume] in Serum or Plasma by Bromocresol green (BCG) dye binding method 4.0 g[facility]dL 3.5[facility] Bil[facility].total [Mass/volume] in Serum or Plasma 0.3 mg/dL <1.2 [facility] Calcium [Mass/volume] in Serum or Plasma 9.5 mg/dL 8.6-10.0 [facility] Chloride [Moles/volume] in Serum or Plasma 103 mmol/L 98-107 [facility] Creatinine [Mass/volume] in Serum or Plasma 0.82 mg/dL 0.70-1.20 [facility] Glucose [Mass/volume] in Serum or Plasma 108 mg/dL 70-140 [facility] Alkaline phosphatase [Enzymatic activity/volume] in Serum or Plasma 97 U/L 40-129 [facility] Potassium [Moles/volume] in Serum or Plasma 3.6 mmol/L 3.4-5.1 [facility] Protein [Mass/volume] in Serum or Plasma 6.8 g/dL 6.4-8.3 [facility] Sodium [Moles/volume] in Serum or Plasma 141 mmol/L 136-145 [facility] Aspartate aminotransferase [Enzymatic activity/volume] in Serum or Plasma 25 U/L <40 [facility] Urea nitrogen [Mass/volume] in Serum or Plasma 19 mg/dL 8-23 [facility] Osmolality of Serum or Plasma by calculation 294 mosm/kg 275-300 [facility] Creatinine/Urea nitrogen [Mass Ratio] in Serum or Plasma 24 [facility] Bicarbonate [Moles/volume] in Serum 23 mmol/L 22-29 [facility] Alanine aminotransferase [Enzymatic activity/volume] in Seru m or Plasma 22 U/L <41 [facility] Anion gap 3 in Serum or Plasma 15 mmol/L 8-15 [facility] Glomerular filtration rate/1.73 sq M pre dicted among non-blacks [Volume Rate/Area] in Serum or Plasma by Creatinine-based formula (MDRD) >[address] [facility] Glomerular filtration rate/1.73 sq M pre dicted among blacks [Volume Rate/Area] in Serum or Plasma by Creatinine-based formula (MDRD) >60 [facility] ID Date Data Source [id number] 11/16/2020 05:18:11 PM EDT [facility] 2.9Serum levels of PSA should not be int erpreted as absolute evidence of the presence or absence of Cancer. Results obtained with different methods cannot be used interchangeably. This method is manufactured by [employer] and is an electrochemiluminesence immunoassay. Name Value Range Interpretation Code Description Data Belinda rce(s) Supporting Document(s) Prostate Specific Ag Free [Mass/volume] in Serum or Plasma 0.5 ng/mL [facility] Not Applicable ID Date Data Source [id number] 11/16/2020 06:51:55 AM EDT [facility] Name Value Range Interpretation Code Description Data Belinda rce(s) Supporting Document(s) Progress Note [facility] HYXXSh9jCgLPWbYs47/XTCikJNAdq0DoTMuaZNa8QUvcAYQxI7OcQVC3yU7zAOU4WGxXZjJqQcJeBxXb [facility] [file] 5L/[facility] [file] ICAgICAgICAgICAgICAgICAgICAgICAgICAgICAgICAgICAgICAgICAgICAgICAgICAgICAgICAgICAg ICAgICAgICAgICAgICANCiAgICAgICAgICAgICAgIC AgICAgICAgICAgICAgICAgICAgICAgICAgICAgICAgICAgICAgICAgICAgICAgICAgICAgICAgICAgIC AgICAgICAgICAgICAgICAgICAgICAgICANCiAgICAgICAgICAgICAgICAgICAgICAgICAgICAgICAgIC AgICAgICAgICAgICAgICAgICAgICAgICAgICAgICAg ICAgICAgICAgICAgICAgICAgICAgICAgICAgICAgICAgICANCiAgICAgICAgICAgICAgICAgICAgICAg ICAgICAgICAgICAgICAgICAgICAgICAgICAgICAgICAgICAgICAgICAgICAgICAgICAgICAgICAgICAg ICAgICAgICAgICAgICAgICANCiAgICAgICAgICAgIC AgICAgICAgICAgICAgICAgICAgICAgICAgICAgICAgICAgICAgICAgICAgICAgICAgICAgICAgICAgIC AgICAgICAgICAgICAgICAgICAgICAgICAgICANCiAgICAgICAgICAgICAgICAgICAgICAgICAgICAgIC AgICAgICAgICAgICAgICAgICAgICAgICAgICAgICAg ICAgICAgICAgICAgICAgICAgICAgICAgICAgICAgICAgICAgICANCiAgICAgICAgICAgICAgICAgICAg ICAgICAgICAgICAgICAgICAgICAgICAgICAgICAgICAgICAgICAgICAgICAgICAgICAgICAgICAgICAg ICAgICAgICAgICAgICAgICAgICANCiAgICAgICAgIC AgICAgICAgICAgICAgICAgICAgICAgICAgICAgICAgICAgICAgICAgICAgICAgICAgICAgICAgICAgIC AgICAgICAgICAgICAgICAgICAgICAgICAgICAgICANCiAgICAgICAgICAgICAgICAgICAgICAgICAgIC AgICAgICAgICAgICAgICAgICAgICAgICAgICAgICAg ICAgICAgICAgICAgICAgICAgICAgICAgICAgICAgICAgICAgICAgICANCiAgICAgICAgICAgICAgICAg ICAgICAgICAgICAgICAgICAgICAgICAgICAgICAgICAgICAgICAgICAgICAgICAgICAgICAgICAgICAg ICAgICAgICAgICAgICAgICAgICAgICANCjw/eHBhY2 runLHtscC3X7ccMy0DDg2RGY0fh7DcSOBwZAkxmlKfTxhKOeUpETTbVfwXCvf5SMioHY1QlAHzL9NjF5 NfHXoxDL2EEPGaUNVldTInGYDwVFQnMyO4BCEaCUrfVF6XyIHhWIsaYCKeTAQzKZAhFORmXZCcIPRGKP BlRRHjPqJyQVLzVFNtDMQaRZEUWNX6VZCbTzJrDQEj UGEvAW7AMXGsE254bbThBQ1TCz8ABxGvUB4fiy0DWqfsZFRcGuiGUwr4MQxpKE7CpLKqbOQdALZpFBDO RbQwQ3jnc8PhWqbrHIIAQVnzSW4Cv0ZzmCRqRLc+Hg4MYS1gg3TuXIbtXNBmNV7iyr5YYBkJQqYqG9Ab eAajQKCfo9foSJTnBI6zlNWwWRM3TDNkhBDTAU3tTY 0vzxvoFXZiJQStZj8oYf5sWDVhIOCnGwVwGCWDZJ9WQXPlHXXbaUKfQSIxRYLPDT1AVBvoCBM3LKPnkn XmgJIdGHlbVE0ACNFfbjQfBmuoHNKAVXn+Iq8CQC0ew0FoTKz7TSGpf8VbFMz1ZL9BIJIrKRupQEDiWW 3bo9JkH2Z1XbW0uAZeI7txhsxvF0JmtcTunaZiXIWa IDYdEU8USA8VZW1HHJQkRWpqHU0TKOQ5QCb2VyP5BvdaKBUlATI5D39kQGbvES0DOYu0N2PoA7FOQATf SHOGINSkfWW4FAFOPc8DZ3DWDlwBIHKJZk0TZiLoL0HFE0oXC51IUE6TEPY+PiANCj4+DQplbmRvYmoN DdA3AIJbk2FrELw8GA3FWOVjAGoqQG9INXYaqX4gDG lsQQ5NXxUfXWXfBJWPHtEvY57xoZBoCQs7L1UbDtZaMFMhVnyxAANmNLfbIjDoHOSwXhDwSZvzJY0+ID 4+NHjdAB5JSCwlfwCfFWOuLu0SCUUeQVIkUO9yJXPaXCTbS2Z1hMrzKDXHJbKxD1tdesiuZM9sJHElH1 40hOcfyjXpFQT4FKHnUr8DYRTuVQZ5IPEyhVQnGiMo MGRDSUclKG9HxJMrOAR8bV7oRPwbXNEsTGEaU5zZHgWzzRftWG40mRffkzHqcDXeCBg+Jl8DWO1ng8Lj WCs9liRhFOxlEWVpPKrrMREpGSBhOEDdCOJ2JGQ7FGJPFsGvGBEsTSDlEBuqVBPwUWBbxe6REDVcAJH7 BGYnTTPgFJOsLDZgNCxzVIMoMLM5PfHmYZKlWYXlHA 7WClTkQMYuLVNcTUfbSANxXKEsez2OMOXzGHJzMIN6TbHfJJCaVPWeDPzbZHNpUNW5EbU2NWSgKTXbDB 2MHhJqMCVkKWEvSNFuIWRuFCUeee6OKTOtISNkBVM9QNWzJDOnHTMxUNtrQZXzNLV2VLRjORNdAEDsXP 4RUmKqPFWoIKC1YeKoHAHlDOFeuq3MZNWiCLNhUWx6 NPQiFFGfLUJbRRgmHOChSJX7OFSlKYSiJMAoUR0YQgImCGCzZZImYKypZVCaAQIqia6QMYWjKAKiWUQd WTQeOIXpZBWpLOmhHSTjFOR8UlOfPHZrQPEtAI2DIaSaJIHzTuLuBRWtZONlTBJyln5NTMYkHFZqMeLs ItTsFQKkWLJyOWifFLAiWWG4TBG1QRYoGTCjBI4BPv EmNJHbPtOmYuXlSUSwYQMvsi5NOLPdDDDzOnuqJWAuOHAhEZFfDSbwQWXlJZA4PRE5IWAbOKDcTB8WZx IsPRNhRnvfRLneVOArQXMewy9YZTYlZVGfATF6FWLmKOQmGSFaESiaCENqQHI8YJB1XGHcRTLyXZ9URb XyFHSiUnK8CfYeYAIqPKTqlx1EUTDyRZZlKNLgSONq VJEbYQCrEMmlQRJpRBGqHVX8VVAqYDGnGH6OKqXlXOZqWGZrIOZvSOKvLHShgi3ZEWBeVQJ5VlS0VRYp VNJsFTYpLLauEHZqCIQkEzmmJKTuKYOsZZ8KRtDtMNJzCBFjSzArKZOcGQVsze1TLYNhGFX7XxF6FyEz OACsTVJlLFogZVTxJUH9CRJqYXLsUFBgEK5XRuNuMZ XqYYWnNIlwNDZbRVVfcf2MMRMtZHV5WRG8OyHnUOVeUWBfAJtbWCHwXAE3BZMwTCBdELJwQS4QNqDkHW RoROQlYBbmKNIwBYOckh3DNITqVAW3DfG1VKQcZWJcVBXsPRorISZhKMX0EqmcUIGrFBVhZS0CBuCrYJ kvWKMBMsr2PBtnJ5d1QXB0OP5KK4Dfg9FhQehuQYQG NVvrDV1njdAeMIXpSr3DV2qJXfxqLgIxRIbcVjYxEjCnIKO8Y6IaZ9S2GSH6HwE7RjS8Ml7iMMT9MFR1 XVDaCNG4IqM5UxfrSLFeZOVgXUQlQQA4SBTdNyAdBZ9EXa8DGwI5HPI1uDOgYk0HBPuqMuyJYaZjHA0H DQo= ID Date Data Source [id number] 10/05/2020 02:52:53 PM EDT [facility] NM BONE SCAN IMAGING WHOLE BODY [id number] [place] RESULTInterpreted by:Mary Wetzel, Neena Alvarez MDINDICATION: [...] rce(s) Supporting Document(s) ID Date Data Source [id number] 09/04/2020 06:39:32 AM EDT [facility] Name Value Range Interpretation Code Description Data Belinda rce(s) Supporting Document(s) Progress Note [facility] ECYJVj5vRmIEViUr00/PXBgtMTBaa6QvQOtjVXj5NSpmDNVzV1CcOGP1kQ7rRFL6TJuJMpLrTnBzTSJ8 lbm [file] QkRq7ZDXe2NcIFIvPzDY9ASHr= ID Date Data Source [id number] 08/23/2020 10:49:52 AM EDT [facility] Name Value Range Interpretation Code Description Data Belinda rce(s) Supporting Document(s) Progress Note [facility] DYSRDh0xKoJMRySr71/ANPwqQVGuf8OdPGraYCi1UIopTOTiC4TtGAT4lP0pOUJ5CGtEUxKzMyWoYVJ6 lbm [file] S8MB0FiNKhYVKuRTDkaCAzGBi1N81hzUNyXDipTD8WMRZ+Immanuel+Da5YIJKqLNQxFZLuCeXiXPNTFqQyX1 JzX9ZKp9AiS6QeFN23iVhkxgHmFNfvRR9KCV7mZDYsQCCOUL0YoRCzmC3eujX1PgOvCIBBTtWzF58mqZ GxXWWwTBTiFEQoZc4UWPLwE4BddxIknVjoxkWqXKGx PFDNSZ9UQFtpxyCulQXddVdvPK62rVgtAW7WWz4CJyYyBE7cfs4QeIXgSg9FKFW4QW8ATZWzNMKkKPWq JYI5PAGyWzOuPQnpJRDiYROvMXK6ARIaGDAdDK6QZsUsKJIaKTX0EPXiIONrISRyth5OLGScRMJ8OLGu YeLgVDCcCOZtHNuhHJRyHZLgBAH0JBRgCCZrFE4SDg MkUXSrYLPmWBDyWJWzMKQddk2HUIWuSMD5YEBcHWNxIUTpEGXaTHtxIQZtFLQ4QgFaGWWgIWTkHA6NZi RnFXJoNHf6OLJrPGRuUKUise9CQORoVKAjRBM9OEUcAAEtJPLxEUusCRCzJOLzKuT0MTYbXIBkST0MHm QcWNTyRWK2NkMnTQAqOCMjhf0NFQGjVDQqRNE4OTFj UMXhJVMxRLzrQQKrRMF9HCgiBNQkSMVeKG0ZNzEmNGTtVJt4QbEsVXHaCDAgxq5QBQUdOSLmFcQqXCZk FFCgCOAlZIaeEPSwSRBhDCG4TDBmYMQyUG2XVaDiKHOaJrRhGXUkVYLvZJLhsg6AHUGeDTTjWWbbHWEb XUZxRJFlMUyqAJNoZQQ6STI3FTAgOYRvKB5MDzFuZF CcHjalEIPnVRZaFZXgkx5GTKYsDUQdVFR4CfEzUYShQRHoAZopWBPbCVZ3YPs0CNGwMZHyRH5UQlAmYF JvHfjdKKAvJEExEVJxsk6FMOHwHAXzKGT2DFXkZCEaDTVaCJdmJZLpNESpYuEjNOFjSSTvHD2TAtGhDC RoFxV0YjLxPWJmCDMxdc0KZPEgFWKbYSS1ZBLxKZNv SZCiSInwCKFnCGHxRao7IFTdKTYbFF0FOiLpNJLxJwR5RbNvZOPpCLJted4SEGGeRRA7FvCqYTZwNMPv RWPtARivYRWtGZCmZvO5DYNwRVIbAA6PLuLjUGYhXWV5TkyuMRDqHZPpfz2CKGSqDPT5IQI5ORKmZOIp AMOuDFhlIJBqEPA5UvG3BDJdALOpUC4WXtWnYYWnHX VqZaclHBJpQUPbln4OYBIbIYF1EKC7PnHyTPUiDVVtYRdmEODnFCC4HEF8ZLWiSUYfZB4DDtSzUWDzIF N3HEswXAFrMZHmxf7MJKPbQRB8IrF1CQEoGVAsCGVjVVkuMGXlAMJ4DMNwBJVfIAZlFQ3GJkDrXVIqDA pfTRBqPEOePQUpkt1ELPPbGLC6OLj6XTVnDNIzISAb EGufYUOjXQG6ONIzAKDbGCWyJL7HXtItWPUlPFaaBIMvXTAzJFXyud4RySKceNflfj8WOKqWOl9CqVhq HCA1AJxaKr7zqGY9BLAhYZCIQm2TudYcCLCzSYPCJUsvHJHcEQL4DmbsPoA0CCQ6BYA7B2T4XLRzJzpb AuIqWmh6NYk4XoK7GnE6CQGlMLOhPxV3LSGnUKUzSJ FjOWQyZmZmODQwNzk+OR2kWOb+As1Yc3RnoaK5dyMmGHf7BUVoSB6EEODJL4OFWe== ID Date Data Source [id number] 08/20/2020 11:18:28 AM EDT [facility] 1.6Serum levels of PSA should not be int erpreted as absolute evidence of the presence or absence of Cancer. Results obtained with different methods cannot be used interchangeably. This method is manufactured by [employer] and is an electrochemiluminesence immunoassay. Name Value Range Interpretation Code Description Data Belinda rce(s) Supporting Document(s) Leukocytes [#/volume] in Blood by Automated count 6.3 10*3/uL 4-10 [facility] Erythrocytes [#/volume] in Blood by Automated count 4.32 10*6/uL 4.6- 6.[address] [facility] Hemoglobin [Mass/volume] in Blood 13.6 g/dL 13.5-18 [facility] Hematocrit [Volume Fraction] of Blood by Automated count 41.6 % 4 1-53 [facility] Erythrocyte mean corpuscular volume [Entitic volume] by Auto mated count 96.3 fL 80-[address] [facility] Erythrocyte mean corpuscular hemoglobin [Entitic mass] by Automated count 31.4 pg 27-33 [facility] Erythrocyte mean corpuscular hemoglobin concentration [Mass/volume] by Automated count 32.6 g/[facility] width [Ratio] by Automated count 13.9 % 11.5-14.5 [facility] Platelets [#/volume] in Blood by Automated count 290 10*3/uL 150-400 [facility] Differential cell count method - Blood [facility] Neutrophils/100 leukocytes in Blood by Automated count 58 % [facility] Lymphocytes/100 leukocytes in Blood by Automated count 33 % [facility] Monocytes/100 leukocytes in Blood by Automated count 6 % [facility] Eosinophils/100 leukocytes in Blood by Automated count 2 % [facility] Basophils/100 leukocytes in Blood by Automated count 1 % [facility] Neutrophils [#/volume] in Blood by Automated count 3.62 10*3/uL 1.8-[address] [facility] Lymphocytes [#/volume] in Blood by Automated count 2.12 10*3/uL 1.2-[address] [facility] Monocytes [#/volume] in Blood by Automated count 0.41 10*3/uL 0-0.8 [facility] Eosinophils [#/volume] in Blood by Automated count 0.15 10*3/uL 0-0.5 [facility] Basophils [#/volume] in Blood by Automated count 0.04 10*3/uL 0-0.2 [facility] Nucleated erythrocytes/100 leukocytes [Ratio] in Blood by Automated count 0 /100{WBCs} 0-0 [facility] ID Date Data Source [id number] 08/20/2020 12:02:[address] [facility] 1.6Serum levels of PSA should not [...] (BCG) dye binding method 4.5 g/dL 3.5-5.2 [facility] Bilirubin.total [Mass/volume] in Serum or Plasma 0.2 mg/dL <1.2 [facility] Calcium [Mass/volume] in Serum or Plasma 9.4 mg/dL 8.6-10.0 [facility] Chloride [Moles/volume] in Serum or Plasma 103 mmol/L 98-107 [facility] Creatinine [Mass/volume] in Serum or Plasma 0.82 mg/dL 0.70-1.20 [facility] Glucose [Mass/volume] in Serum or Plasma 106 mg/dL 70-140 [facility] Alkaline phosphatase [Enzymatic activity/volume] in Serum or Plasma 97 U/L 40-129 [facility] Potassium [Moles/volume] in Serum or Plasma 4.0 mmol/L 3.4-5.1 [facility] Protein [Mass/volume] in Serum or Plasma 7.0 g/dL 6.4-8.3 [facility] Sodium [Moles/volume] in Serum or Plasma 137 mmol/L 136-145 [facility] Aspartate aminotransferase [Enzymatic activity/volume] in Serum or Plasma 22 U/L <40 [facility] Urea nitrogen [Mass/volume] in Serum or Plasma 16 mg/dL 8-23 [facility] Osmolality of Serum or Plasma by calculation 286 mosm/kg 275-300 [facility] Creatinine/Urea nitrogen [Mass Ratio] in Serum or Plasma 20 [facility] Bicarbonate [Moles/volume] in Serum 24 mmol/L 22-29 [facility] Alanine aminotransferase [Enzymatic activity/volume] in Seru m or Plasma 36 U/L <41 [facility] Anion gap 3 in Serum or Plasma 10 mmol/L 8-15 [facility] Glomerular filtration rate/1.73 sq M pre dicted among non-blacks [Volume Rate/Area] in Serum or Plasma by Creatinine-based formula (MDRD) >[address] [facility] Glomerular filtration rate/1.73 sq M pre dicted among blacks [Volume Rate/Area] in Serum or Plasma by Creatinine-based formula (MDRD) >60 [facility] ID Date Data Source [id number] 08/20/2020 12:14:09 PM EDT [facility] 1.6Serum levels of PSA should not be int erpreted as absolute evidence of the presence or absence of Cancer. Results obtained with different methods cannot be used interchangeably. This method is manufactured by [employer] and is an electrochemiluminesence immunoassay. Name Value Range Interpretation Code Description Data Belinda rce(s) Supporting Document(s) Prostate Specific Ag Free [Mass/volume] in Serum or Plasma 0.4 ng/mL [facility] Not Applicable ID Date Data Source [id number] 08/17/2020 10:03:13 AM EDT [facility] Name Value Range Interpretation Code Description Data Belinda rce(s) Supporting Document(s) Progress Note [facility] [id number] lbm [file] [id number]+mejía/[id number] [file] [id number] ID Date Data Source [id number] 06/07/2020 05:09:38 AM EST [facility] Name Value Range Interpretation Code Description Data Belinda rce(s) Supporting Document(s) Progress Note [facility] [id number] lbm [file] [id number] [id number]= ID Date Data Source [id number] 06/07/2020 05:09:33 AM EST [facility] Name Value Range Interpretation Code Description Data Belinda rce(s) Supporting Document(s) Progress Note [facility] [id number] lbm [file] [id number]= ID Date Data Source [id number] 06/02/2020 09:23:36 AM EST [facility] Name Value Range Interpretation Code Description Data Belinda rce(s) Supporting Document(s) Progress Note [facility] [id number] lbm [file] [facility]//2/[id number] [file] [id number] ID Date Data Source [id number] 05/21/2020 10:24:20 AM EST [facility] 1.4Serum levels of PSA should not be int erpreted as absolute evidence of the presence or absence of Cancer. Results obtained with different methods cannot be used interchangeably. This method is manufactured by [employer] and is an electrochemiluminesence immunoassay. Name Value Range Interpretation Code Description Data Belinda rce(s) Supporting Document(s) Leukocytes [#/volume] in Blood by Automated count 5.5 10*3/uL 4-10 [facility] Erythrocytes [#/volume] in Blood by Automated count 4.34 10*6/uL 4.6- 6.[address] [facility] Hemoglobin [Mass/volume] in Blood 13.5 g/dL 13.5-18 [facility] Hematocrit [Volume Fraction] of Blood by Automated count 41.6 % 4 1-53 [facility] Erythrocyte mean corpuscular volume [Entitic volume] by Auto mated count 95.8 fL 80-96 [facility] Erythrocyte mean corpuscular hemoglobin [Entitic mass] by Automated count 31.2 pg 27-33 [facility] Erythrocyte mean corpuscular hemoglobin concentration [Mass/volume] by Automated count 32.5 g/[facility].0[facility] width [Ratio] by Automated count 15.7 % 11.5-14.[address] [facility] Platelets [#/volume] in Blood by Automated count 276 10*3/uL 150-400 [facility] Differential cell count method - Blood [facility] Neutrophils/100 leukocytes in Blood by Automated count 48 % [facility] Lymphocytes/100 leukocytes in Blood by Automated count 39 % [facility] Monocytes/100 leukocytes in Blood by Automated count 8 % [facility] Eosinophils/100 leukocytes in Blood by Automated count 4 % [facility] Basophils/100 leukocytes in Blood by Automated count 1 % [facility] Neutrophils [#/volume] in Blood by Automated count 2.67 10*3/uL 1.8-[address] [facility] Lymphocytes [#/volume] in Blood by Automated count 2.16 10*3/uL 1.2-[address] [facility] Monocytes [#/volume] in Blood by Automated count 0.43 10*3/uL 0-0.8 [facility] Eosinophils [#/volume] in Blood by Automated count 0.23 10*3/uL 0-0.5 [facility] Basophils [#/volume] in Blood by Automated count 0.05 10*3/uL 0-0.2 [facility] Nucleated erythrocytes/100 leukocytes [Ratio] in Blood by Automated count 0 /100{WBCs} 0-0 [facility] ID Date Data Source [id number] 05/21/2020 11:33:10 AM [facility] 1.4Serum levels of PSA should not be int erpreted as absolute evidence of the presence or absence of Cancer. Results obtained with different methods cannot be used interchangeably. This method is manufactured by [employer] and is an electrochemiluminesence immunoassay. Name Value Range Interpretation Code Description Data Belinda rce(s) Supporting Document(s) Prostate Specific Ag Free [Mass/volume] in Serum or Plasma 0.3 ng/mL [facility] Not Applicable ID Date Data Source [id number] 05/21/2020 11:35:30 AM [facility] 1.4Serum levels of PSA should not be int erpreted as absolute evidence of the presence or absence of Cancer. Results obtained with different methods cannot be used interchangeably. This method is manufactured by [employer] and is an electrochemiluminesence immunoassay. Name Value Range Interpretation Code Description Data Belinda rce(s) Supporting Document(s) Albumin [Mass/volume] in Serum or Plasma by Bromocresol green (BCG) dye binding method 4.3 g/dL 3.5-5.2 [facility] Bilirubin.total [Mass/volume] in Serum or Plasma 0.3 mg/dL <1.2 [facility] Calcium [Mass/volume] in Serum or Plasma 10.1 mg/dL 8.6-10.[address] [facility] Chloride [Moles/volume] in Serum or Plasma 104 mmol/L 98-107 [facility] Creatinine [Mass/volume] in Serum or Plasma 0.88 mg/dL 0.70-1.20 [facility] Glucose [Mass/volume] in Serum or Plasma 108 mg/dL 70-140 [facility] Alkaline phosphatase [Enzymatic activity/volume] in Serum or Plasma 95 U/L 40-129 [facility] Potassium [Moles/volume] in Serum or Plasma 4.1 mmol/L 3.4-5.1 [facility] Protein [Mass/volume] in Serum or Plasma 7.2 g/dL 6.4-8.3 [facility] Sodium [Moles/volume] in Serum or Plasma 139 mmol/L 136-145 [facility] Aspartate aminotransferase [Enzymatic activity/volume] in Serum or Plasma 20 U/L <40 [facility] Urea nitrogen [Mass/volume] in Serum or Plasma 23 mg/dL 6-[address] [facility] Osmolality of Serum or Plasma by calculation 292 mosm/kg 275-300 [facility] Creatinine/Urea nitrogen [Mass Ratio] in Serum or Plasma 26 [facility] Bicarbonate [Moles/volume] in Serum 22 mmol/L 22-29 [facility] Alanine aminotransferase [Enzymatic activity/volume] in Seru m or Plasma 29 U/L <41 [facility] Anion gap 3 in Serum or Plasma 13 mmol/L 8-15 [facility] Glomerular filtration rate/1.73 sq M pre dicted among non-blacks [Volume Rate/Area] in Serum or Plasma by Creatinine-based formula (MDRD) >[address] [facility] Glomerular filtration rate/1.73 sq M pre dicted among blacks [Volume Rate/Area] in Serum or Plasma by Creatinine-based formula (MDRD) >60 [facility] ID Date Data Source [id number] 02/25/2020 04:11:17 PM EDT [facility] Name Value Range Interpretation Code Description Data Belinda rce(s) Supporting Document(s) Progress Note [facility] [id number] [facility] [file] [id number]== ID Date Data Source [id number] 02/20/2020 08:10:09 AM EDT [facility] Name Value Range Interpretation Code Description Data Belinda rce(s) Supporting Document(s) Progress Note [facility] [id number] lbm [file] Cg== ID Date Data Source [id number] 02/19/2020 03:05:47 PM T [facility] 1.2Serum levels of PSA should not be int erpreted as absolute evidence of the presence or absence of Cancer. Results obtained with different methods cannot be used interchangeably. This method is manufactured by [employer] and is an electrochemiluminesence immunoassay. Name Value Range Interpretation Code Description Data Belinda rce(s) Supporting Document(s) Leukocytes [#/volume] in Blood by Automated count 6.3 10*3/uL 4-10 [facility] Erythrocytes [#/volume] in Blood by Automated count 4.06 10*6/uL 4.6- 6.[address] [facility] Hemoglobin [Mass/volume] in Blood 12.7 g/dL 13.5-[address] [facility] Hematocrit [Volume Fraction] of Blood by Automated count 38.3 % 4 1-[address] [facility] Erythrocyte mean corpuscular volume [Entitic volume] by Auto mated count 94.2 fL 80-96 [facility] Erythrocyte mean corpuscular hemoglobin [Entitic mass] by Automated count 31.4 pg 27-33 [facility] Erythrocyte mean corpuscular hemoglobin concentration [Mass/volume] by Automated count 33.3 g/dL 32.0-36.0 [facility] E[facility]th[facility] distribution width [Ratio] by Automated count 15.2 % 11.5-14.[address] [facility] Platelets [#/volume] in Blood by Automated count 313 10*3/uL 150-400 [facility] Differential cell count method - Blood [facility] Neutrophils/100 leukocytes in Blood by Automated count 58 % [facility] Lymphocytes/100 leukocytes in Blood by Automated count 33 % [facility] Monocytes/100 leukocytes in Blood by Automated count 6 % [facility] Eosinophils/100 leukocytes in Blood by Automated count 2 % [facility] Basophils/100 leukocytes in Blood by Automated count 1 % [facility] Neutrophils [#/volume] in Blood by Automated count 3.61 10*3/uL 1.8-[address] [facility] Lymphocytes [#/volume] in Blood by Automated count 2.10 10*3/uL 1.2-[address] [facility] Monocytes [#/volume] in Blood by Automated count 0.39 10*3/uL 0-0.8 [facility] Eosinophils [#/volume] in Blood by Automated count 0.14 10*3/uL 0-0.5 [facility] Basophils [#/volume] in Blood by Automated count 0.07 10*3/uL 0-0.2 [facility] Nucleated erythrocytes/100 leukocytes [Ratio] in Blood by Automated count 0 /100{WBCs} 0-0 [facility] ID Date Data Source [id number] 02/19/2020 04:03:40 PM EDT [facility] 1.2Serum levels of PSA should not be int erpreted as absolute evidence of the presence or absence of Cancer. Results obtained with different methods cannot be used interchangeably. This method is manufactured by [employer] and is an electrochemiluminesence immunoassay. Name Value Range Interpretation Code Description Data Belinda rce(s) Supporting Document(s) Prostate Specific Ag Free [Mass/volume] in Serum or Plasma 0.3 ng/mL [facility] Not Applicable ID Date Data Source [id number] 02/19/2020 04:05:21 PM EDT [facility] 1.2Serum levels of PSA should not be [...] (BCG) dye binding method 4.0 g/dL 3.5-5.2 [facility] Bil[facility].total [Mass/volume] in Serum or Plasma <1.2 [facility] Calcium [Mass/volume] in Serum or Plasma 9.3 mg/dL 8.6-10.0 [facility] Chloride [Moles/volume] in Serum or Plasma 105 mmol/L 98-107 [facility] Creatinine [Mass/volume] in Serum or Plasma 0.84 mg/dL 0.70-1.20 [facility] Glucose [Mass/volume] in Serum or Plasma 95 mg/dL 70-140 [facility] Alkaline phosphatase [Enzymatic activity/volume] in Serum or Plasma 77 U/L 40-129 [facility] Potassium [Moles/volume] in Serum or Plasma 4.1 mmol/L 3.4-5.1 [facility] Hemolyzed Protein [Mass/volume] in Serum or Plasma 6.5 g/dL 6.4-8.3 [facility] Sodium [Moles/volume] in Serum or Plasma 138 mmol/L 136-145 [facility] Aspartate aminotransferase [Enzymatic activity/volume] in Serum or Plasma 21 U/L <40 [facility] Urea nitrogen [Mass/volume] in Serum or Plasma 18 mg/dL 6-20 [facility] Osmolality of Serum or Plasma by calculation 288 mosm/kg 275-300 [facility] Creatinine/Urea nitrogen [Mass Ratio] in Serum or Plasma 21 [facility] Bicarbonate [Moles/volume] in Serum 20 mmol/L 22-[address] [facility] Alanine aminotransferase [Enzymatic activity/volume] in Seru m or Plasma 17 U/L <41 [facility] Anion gap 3 in Serum or Plasma 13 mmol/L 8-15 [facility] Glomerular filtration rate/1.73 sq M pre dicted among non-blacks [Volume Rate/Area] in Serum or Plasma by Creatinine-based formula (MDRD) >[address] [facility] Glomerular filtration rate/1.73 sq M pre dicted among blacks [Volume Rate/Area] in Serum or Plasma by Creatinine-based formula (MDRD) >60 [facility] Procedure Social History Code Duration Value Status Description Data Source(s ) Alcohol intake 01/11/2021 12:00:00 AM EDT Current non-d ibrahima of alcohol (finding) completed Current non-drinker of alcohol (finding) [facility] Tobacco use and exposure 01/11/2021 12:00:00 AM EDT Never used co mpleted Never used [facility] Smoking 01/11/2021 12:00:00 AM EDT Former smoker completed Former smoker [facility] Alcohol intake 12/28/2020 12:00:00 AM EDT Current non-d ibrahima of alcohol (finding) completed Current non-drinker of alcohol (finding) [facility] Alcohol intake 12/22/2020 12:00:00 AM EDT Current non-d ibrahima of alcohol (finding) completed Current non-drinker of alcohol (finding) [facility] Alcohol intake 12/14/2020 12:00:00 AM EDT Current non-d ibrahima of alcohol (finding) completed Current non-drinker of alcohol (finding) [facility] Alcohol intake 11/24/2020 12:00:00 AM EDT Current non-d ibrahima of alcohol (finding) completed Current non-drinker of alcohol (finding) [facility] Alcohol intake 11/23/2020 12:00:00 AM EDT Current non-d ibrahima of alcohol (finding) completed Current non-drinker of alcohol (finding) [facility] Alcohol intake 11/16/2020 12:00:00 AM EDT Current non-d ibrahima of alcohol (finding) completed Current non-drinker of alcohol (finding) [facility] Smoking 10/20/2020 12:00:00 AM EDT Former Smoker completed Former Smoker eCW1 ([facility]) Smoking 10/20/2020 12:00:00 AM EDT Former Smoker completed Former Smoker eCW1 ([facility]) Smoking 10/20/2020 12:00:00 AM EDT Former Smoker completed Former Smoker eCW1 ([facility]) Smoking 10/20/2020 12:00:00 AM EDT Former Smoker completed Former Smoker eCW1 ([facility]) Smoking 10/20/2020 12:00:00 AM EDT Former Smoker completed Former Smoker eCW1 ([facility]) Smoking 10/20/2020 12:00:00 AM EDT Former Smoker completed Former Smoker eCW1 ([facility]) Smoking 10/20/2020 12:00:00 AM EDT Former Smoker completed Former Smoker eCW1 ([facility]) Smoking 10/20/2020 12:00:00 AM EDT Former Smoker completed Former Smoker eCW1 ([facility]) Smoking 10/20/2020 12:00:00 AM EDT Former Smoker completed Former Smoker eCW1 ([facility]) Smoking 10/20/2020 12:00:00 AM EDT Former Smoker completed Former Smoker eCW1 ([facility]) Smoking 10/20/2020 12:00:00 AM EDT Former Smoker completed Former Smoker eCW1 ([facility]) Smoking 10/20/2020 12:00:00 AM EDT Former Smoker completed Former Smoker eCW1 ([facility]) Smoking 10/20/2020 12:00:00 AM EDT Former Smoker completed Former Smoker eCW1 ([facility]) Smoking 10/20/2020 12:00:00 AM EDT Former Smoker completed Former Smoker eCW1 ([facility]) Alcohol intake 10/19/2020 12:00:00 AM EDT Current non-d ibrahima of alcohol (finding) completed Current non-drinker of alcohol (finding) [facility] Smoking 08/23/2020 12:00:00 AM EDT Former Smoker completed Former Smoker eCW1 ([facility]) Smoking 08/23/2020 12:00:00 AM EDT Former Smoker completed Former Smoker eCW1 ([facility]) Smoking 08/23/2020 12:00:00 AM EDT Former Smoker completed Former Smoker eCW1 ([facility]) Smoking 08/23/2020 12:00:00 AM EDT Former Smoker completed Former Smoker eCW1 ([facility]) Alcohol intake 08/20/2020 12:00:00 AM EDT Current non-d ibrahima of alcohol (finding) completed Current non-drinker of alcohol (finding) [facility] Alcohol intake 08/17/2020 12:00:00 AM EDT Current non-d ibrahima of alcohol (finding) completed Current non-drinker of alcohol (finding) [facility] Smoking 07/19/2020 12:00:00 AM EDT Former Smoker completed Former Smoker eCW1 ([facility]) Smoking 07/19/2020 12:00:00 AM EDT Former Smoker completed Former Smoker eCW1 ([facility]) Alcohol intake 05/21/2020 12:00:00 AM EST Current non-d ibrahima of alcohol (finding) completed Current non-drinker of alcohol (finding) [facility] Smoking 05/10/2020 12:00:00 AM EST Former Smoker completed Former Smoker eCW1 ([facility]) Smoking 05/10/2020 12:00:00 AM EST Former Smoker completed Former Smoker eCW1 ([facility]) Smoking 05/10/2020 12:00:00 AM EST Former Smoker completed Former Smoker eCW1 ([facility]) Smoking 04/26/2020 12:00:00 AM EST Former Smoker completed Former Smoker eCW1 ([facility]) Smoking 04/26/2020 12:00:00 AM EST Former Smoker completed Former Smoker eCW1 ([facility]) Smoking 03/08/2020 12:00:00 AM EST Former Smoker completed Former Smoker eCW1 ([facility]) Smoking 03/08/2020 12:00:00 AM EST Former Smoker completed Former Smoker eCW1 ([facility]) Smoking 03/08/2020 12:00:00 AM EST Former Smoker completed Former Smoker eCW1 ([facility]) Smoking 03/08/2020 12:00:00 AM EST Former Smoker completed Former Smoker eCW1 ([facility]) Smoking 03/08/2020 12:00:00 AM EST Former Smoker completed Former Smoker eCW1 ([facility]) Alcohol intake 02/19/2020 12:00:00 AM EDT Current non-d ibrahima of alcohol (finding) completed Current non-drinker of alcohol (finding) [facility] Vital Signs ID Date Data Source UNK Name Value Range Interpretation Code Description Data Source(s) Body height [in_i] eCW1 ([facility]) Body mass index (BMI) [Ratio] 30.83 kg/m2 30.83 kg/m2 eCW1 ([facility]) Heart rate 90 /min 90 /min eCW1 ([facility]) Respiratory rate 18 /min 18 /min eCW1 ([facility]) Body temperature 97.7 [degF] 97.7 [degF] eCW1 ( [facility]) Systolic blood pressure 118 mm[Hg] 118 mm[Hg] e CW1 ([facility]) Diastolic blood pressure 78 mm[Hg] 78 mm[Hg] eCW1 ([facility]) Body weight 202.8 [lb_av] 202.8 [lb_av] eCW1 ([facility]) Body weight 218 [lb_av] 218 [lb_av] eCW1 ([facility]) Body height [in_i] eCW1 ([facility]) Body mass index (BMI) [Ratio] 33.14 kg/m2 33.14 kg/m2 eCW1 ([facility]) Heart rate 102 /min 102 /min eCW1 ([facility]) Respiratory rate 18 /min 18 /min eCW1 ([facility]) Body temperature 96.7 [degF] 96.7 [degF] eCW1 ( [facility]) Systolic blood pressure 116 mm[Hg] 116 mm[Hg] e CW1 ([facility]) Diastolic blood pressure 80 mm[Hg] 80 mm[Hg] eCW1 ([facility]) Body height 68 [in_i] 68 [in_i] MEDENT ([facility], ) 5'8" Body weight 200.00 [lb_av] 200.00 [lb_av] MEDEN T ([facility]) Body mass index (BMI) [Ratio] 30.4 kg/m2 30.4 k g/m2 [facility] ([facility]) [place]olson body weight 154 [lb_av] 154 [lb_av] MEDEN T ([facility]) Body weight 90.720 kg 90.720 kg [facility] ([facility]) Body surface area Derived from formula 2.04 m2 2.04 m2 MEDENT ([facility]) Body weight 209 [lb_av] 209 [lb_av] eCW1 ([facility]) Body height [in_i] eCW1 ([facility]) Body mass index (BMI) [Ratio] 31.77 kg/m2 31.77 kg/m2 eCW1 ([facility]) Heart rate 106 /min 106 /min eCW1 ([facility]) Body temperature 97.7 [degF] 97.7 [degF] eCW1 ( [facility]) Systolic blood pressure 138 mm[Hg] 138 mm[Hg] e CW1 ([facility]) Diastolic blood pressure 108 mm[Hg] 108 mm[Hg] eCW1 ([facility]) Respiratory rate 18 /min 18 /min eCW1 ([facility]) ID Date Data Source [id number] [facility] Value Range Interpretation Code Description Data Source(s) TRANSFER FROM Outpatient Clinic[facility] ID Date Data Source [id number] 01/12/2021 08:12[facility] [address] [facility] Name Value Range Interpretation Code Description Data Source(s) TRANSFER FROM Outpatient Clinic[facility] ID Date Data Source [id number] 02/04/2021 12:32[facility] [address] [facility] Name Value Range Interpretation Code Description Data Source(s) TRANSFER FROM Outpatient Clinic[facility] ID Date Data Source [id number] 12/20/2020 03:22:50 PM EDT [facility] Name Value Range Interpretation Code Description Data Source(s) WEIGHT RECORDED 173 lb 173 lb [facility] ID Date Data Source [id number] 09/04/2020 06:39:[address] [facility] Name Value Range Interpretation Code Description Data Source(s) WEIGHT RECORDED 214 lb 214 lb [facility] ID Date Data Source [id number] 08/18/2020 02:04:[address] [facility] Name Value Range Interpretation Code Description Data Source(s) WEIGHT RECORDED 208 lb 208 lb [facility] Body height Measured 67.99 in 67.99 in [facility] ID Date Data Source [id number] 07/12/2020 08:18:[address] [facility] Name Value Range Interpretation Code Description Data Source(s) WEIGHT RECORDED 213 lb 213 lb [facility] ID Date Data Source [id number] 02/25/2020 04:11:[address] [facility] Name Value Range Interpretation Code Description Data Source(s) WEIGHT RECORDED 209.6 lb 209.6 lb [facility] Body height Measured 67.99 in 67.99 in [facility] ID Date Data Source [id number] 02/20/2020 08:10:[address] [facility] Name Value Range Interpretation Code Description Data Source(s) WEIGHT RECORDED 208.8 lb 208.8 lb [facility] Patient Treatment Plan of Care Planned Activity Planned Date Details Description Data Source (s) Folic Acid 1 MG Oral Tablet 01/18/2021 12:00:00 AM [facility] salmon calcitonin 200 UNT/ACTUAT Nasal [place] 01/17/2021 12:00:00 AM [facility] ferrous gluconate 324 MG Oral Tablet 01/17/2021 12:00:00 AM [facility] salmon calcitonin 200 UNT/ACTUAT Nasal [place] 01/17/2021 12:00:00 AM [facility] salmon calcitonin 200 UNT/ML Injectable Solution 01/17/2021 12:00:0 0 AM [facility] salmon calcitonin 200 UNT/ML Injectable Solution 01/17/2021 12:00:0 0 AM [facility] Acetaminophen 325 MG Oral Tablet 01/11/2021 05:17:54 PM [facility] Carisoprodol 350 MG Oral Tablet 01/11/2021 05:17:53 PM [facility] Ondansetron 8 MG Oral Tablet 01/11/2021 05:17:53 PM [facility] lidocaine (XYLOCAINE) 2 % urojet 20 mL 12/22/2020 12:00:00 PM [facility] sennosides, MCFP 8.6 MG Oral Tablet 12/14/2020 12:00:00 AM [facility] Docusate Sodium 50 MG / sennosides, MCFP 8.6 MG Oral Ta blet 12/14/2020 12:00:00 AM [facility] ospital POLYETHYLENE GLYCOL 3350 142 MG/ML Oral Solution 12/14/2020 12:00:0 0 AM [facility] Lactulose 667 MG/ML Oral Solution 12/14/2020 12:00:00 AM [facility] Oxycodone Hydrochloride 15 MG Oral Tablet 12/10/2020 12:00:00 AM [facility] Self-Cath Coude Tip 11/29/2020 12:00:00 AM [facility] Ondansetron 8 MG Oral Tablet 11/23/2020 12:00:00 AM [facility] Prochlorperazine 10 MG Oral Tablet 11/23/2020 12:00:00 AM [facility] Prednisone 10 MG Oral Tablet 11/23/2020 12:00:00 AM [facility] Morphine Sulfate 15 MG Extended Release Oral Tablet 11/17/19 12:00:00 AM [facility] Oxycodone Hydrochloride 15 MG Oral Tablet 11/11/2020 12:00:00 AM [facility] Ciprofloxacin 500 MG Oral Tablet [Cipro] 10/20/2020 12:00:00 AM [place] [id number] ([facility]) Ciprofloxacin 500 MG Oral Tablet [Cipro] 10/20/2020 12:00:00 AM [place] [id number] ([facility]) Ciprofloxacin 500 MG Oral Tablet [Cipro] 10/20/2020 12:00:00 AM [place] [id number] ([facility]) Ciprofloxacin 500 MG Oral Tablet [Cipro] 10/20/2020 12:00:00 AM [place] [id number] ([facility]) Oxycodone Hydrochloride 15 MG Oral Tablet 10/11/2020 12:00:00 AM [facility] Oxycodone Hydrochloride 15 MG Oral Tablet 09/10/2020 12:00:00 AM [facility] Oxycodone Hydrochloride 15 MG Oral Tablet 08/12/2020 12:00:00 AM [facility] enzalutamide 40 MG Oral Capsule [Xtandi] 06/14/2020 12:00:[address] [facility] Oxycodone Hydrochloride 15 MG Oral Tablet 05/11/2020 12:00:00 AM [facility] gabapentin 300 MG Oral Capsule 03/08/2020 12:00:00 AM EST [facility] ([facility]) gabapentin 300 MG Oral Capsule 03/08/2020 12:00:00 AM EST [facility] ([facility]) gabapentin 300 MG Oral Capsule 03/08/2020 12:00:00 AM EST [facility] ([facility]) gabapentin 300 MG Oral Capsule 03/08/2020 12:00:00 AM EST [facility] ([facility]) gabapentin 300 MG Oral Capsule 03/08/2020 12:00:00 AM EST [facility] ([facility]) Oxycodone Hydrochloride 15 MG Oral Tablet 02/12/2020 12:00:00 AM [facility] Pentoxifylline 400 MG Extended Release Oral Tablet 12/01/2018 12 :00:00 AM [facility] Catheters (BARD COUDE TIP CATHETER) MISC 10/30/2018 12:00:00 AM [facility] irbesartan 300 MG Oral Tablet 10/15/2018 12:00:00 AM [facility] Losartan Potassium 50 MG Oral Tablet 01/17/2018 12:00:00 AM [facility] atorvastatin 20 MG Oral Tablet 01/07/2018 12:00:00 AM [facility] Amlodipine 10 MG Oral Tablet 09/17/2017 12:00:00 AM [facility] 12 HR Orphenadrine Citrate 100 MG Extended Release Ora l Tablet 09/14/2017 12:00:00 AM [facility] Calcium Carbonate [address] [facility] Losartan Potassium [address] [facility] Losartan Potassium [address] [facility] Diclofenac Sodium 50 MG Delayed Release Oral Tablet [facility] Leuprolide Acetate (LUPRON DEPOT IM) [facility] Ascorbic Acid (VITAMIN C PO) [facility]
[2021-02-16 13:09] LABS: ALBUMIN 1.9 GM/DL (3.2-5.2); ALT/SGPT 13 U/L (12-78); BILIRUBIN,DIRECT 0.1 MG/DL (0.0-0.2); BILIRUBIN,TOTAL 0.4 MG/DL (0.2-1.0); BLOOD UREA NITROGEN 15 MG/DL (7-18); CALCIUM LEVEL 12.9 MG/DL (8.8-10.2); CARBON DIOXIDE LEVEL 32 MEQ/L (21-32); CHLORIDE LEVEL 93 MEQ/L (98-107); CK-MB VALUE MASS < 1.0 NG/ML (<3.6); CPK CREATINE PHOSPHOKINASE 77 U/L (39-308); CREATININE FOR GFR 1.06 MG/DL (0.70-1.30); GLOMERULAR FILTRATION RATE > 60.0 (>49); GLUCOSE, FASTING 107 MG/DL (70-100); POTASSIUM SERUM 3.6 MEQ/L (3.5-5.1); SODIUM LEVEL 131 MEQ/L (136-145); THYROID STIMULATING HORMONE 0.621 uIU/ML (0.358-3.740); TOTAL PROTEIN 6.9 GM/DL (6.4-8.2); TROPONIN I < 0.02 NG/ML (< 0.10)
--- NOTE | 2021-02-16 13:30 | REPVR ---
PROCEDURE INFORMATION: Exam: CT Head Without Contrast Exam date and time: 02/16/2021 12:54 PM Age: 60 years old Clinical indication: Injury or trauma; Fall; Blunt trauma (contusions or hematomas) TECHNIQUE: Imaging protocol: Computed tomography of the head without contrast. Radiation optimization: All CT scans at this facility use at least one of these dose optimization techniques: automated exposure control; mA and/or kV adjustment per patient size (includes targeted exams where dose is matched to clinical indication); or iterative reconstruction. COMPARISON: CT Head W/O FOLL BY WITH CONTR 08/07/2016 10:33 AM FINDINGS: Brain: No acute intracranial hemorrhage, cerebral edema, or midline shift. Cerebral ventricles: No hydrocephalus. Paranasal sinuses: There is no acute sinusitis. Mastoid air cells: Visualized mastoid air cells are well aerated. Orbital cavity: Unremarkable as visualized. Bones/joints: No acute fracture. Soft tissues: Unremarkable. IMPRESSION: No acute intracranial abnormality. Electronically signed by: Kristopher Alexis On 02/16/2021 13:29:44 PM
--- NOTE | 2021-02-16 13:42 | ECGEPIP ---
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
--- NOTE | 2021-02-16 13:48 | REPVR ---
PROCEDURE INFORMATION: Exam: CT Cervical Spine Without Contrast Exam date and time: 02/16/2021 12:54 PM Age: 60 years old Clinical indication: Injury or trauma; Fall; Blunt trauma TECHNIQUE: Imaging protocol: Computed tomography images of the cervical spine without contrast. Radiation optimization: All CT scans at this facility use at least one of these dose optimization techniques: automated exposure control; mA and/or kV adjustment per patient size (includes targeted exams where dose is matched to clinical indication); or iterative reconstruction. COMPARISON: 1. CT Head W/O FOLL BY WITH CONTR 08/07/2016 10:[address] Maxillofacial with contrast 03/23/2020 5:28:03 PM FINDINGS: Bones/joints: There are numerous osseous metastases throughout the cervical and upper thoracic spine, mainly lytic. There is near complete erosion/destruction of the C3 vertebral body. This is new since the face CT dated 03/23/2020. A pathologic superior endplate compression fracture is noted at C3. Mild C3 vertebral body height loss and anterior wedging is present. There is mild reversal of the normal cervical lordosis. Minor retrolisthesis of C3 on C4, C4 on C5, and C5 on C6 is also present. There is an age-indeterminate fracture involving the left C5 transverse process, probably pathologic rather than posttraumatic. This is new since 03/23/2020. There are probable pathologic fractures involving the bilateral transverse processes of T1. Discs/Spinal canal/Neural foramina: Severe degenerative changes of the cervical spine are present. There is moderate/severe spinal canal stenosis at C3-C4, C4-C5, C5-C6, and C6-C7. Multilevel neural foraminal narrowing from uncinate spurring and facet arthropathy is noted. Lungs: Lung apices are clear. Soft tissues: Unremarkable. Other findings: A healing left 2nd rib fracture is noted. A large chronic sclerotic metastatic lesion is seen involving the left occipital condyle and left clivus. IMPRESSION: 1. Extensive osseous metastatic disease, significantly increased from 03/23/2020. 2. New pathologic C3 superior endplate compression fracture. Mild C3 vertebral body height loss is present. 3. Age-indeterminate pathologic fracture involving the left C5 transverse process, new since 03/23/2020 4. Chronic findings as discussed above. Electronically signed by: Kristopher Alexis On 02/16/2021 13:48:23 PM
[2021-02-16 14:38] LABS: RSV AMPLIFICATION NEGATIVE (NEGATIVE)
[2021-02-16 14:40] LABS: FREE T4 1.35 NG/DL (0.76-1.46); MAGNESIUM LEVEL 1.7 MG/DL (1.8-2.4); PHOSPHORUS LEVEL 2.5 MG/DL (2.5-4.9)
[2021-02-16] MEDS ORDERED: LevoFLOXacin IV 500 MG in IV 1 EA IV ONE (14:40)
[2021-02-16] MEDS ORDERED: ACETAMINOPHEN TAB 650MG DOSE (2X325MG) PO PRN (14:55)
--- OUTSIDE RECORDS SUMMARY | 2021-02-16 15:11 | CCD ---
Author Author [facility] Organization [facility] Address Unknown Phone Unavailable Care Team Providers Care Environmental Services Supervisor Name Role Phone Loida ARCHER MD Unavailable [...] Unavailable FABIAN, RUSTAM MD Unavailable Unavailable FABIAN, URSTAM MD Unavailable Unavailable FABIAN, RUSTAM MD Unavailable [...] Unavailable FABIAN, RUSTAM MD Unavailable Unavailable FABIAN, URSTAM MD Unavailable Unavailable FABIAN, RUSTAM MD Unavailable [...] Unavailable FABIAN, RUSTAM MD Unavailable Unavailable LEUBNER PARTS REPRESENTATIVE, BRADLEY CYNTHIA PARTS REPRESENTATIVE Unavailable [email or web address] LEUBNER PARTS REPRESENTATIVE, BRADLEY CYNTHIA PARTS REPRESENTATIVE Unavailable [email or web address] LEUBNER PARTS REPRESENTATIVE, BRADLEY CYNTHIA PARTS REPRESENTATIVE Unavailable [email or web address] LEUBNER PARTS REPRESENTATIVE, BRADLEY CYNTHIA PARTS REPRESENTATIVE Unavailable [email or web address] LEUBNER PARTS REPRESENTATIVE, BRADLEY CYNTHIA PARTS REPRESENTATIVE Unavailable [email or web address] LEUBNER PARTS REPRESENTATIVE, BRADLEY CYNTHIA PARTS REPRESENTATIVE Unavailable [email or web address] LEUBNER PARTS REPRESENTATIVE, BRADLEY CYNTHIA PARTS REPRESENTATIVE Unavailable [email or web address] LEUBNER PARTS REPRESENTATIVE, BRADLEY CYNTHIA PARTS REPRESENTATIVE Unavailable [email or web address] LEUBNER PARTS REPRESENTATIVE, BRADLEY CYNTHIA PARTS REPRESENTATIVE Unavailable [email or web address] LEUBNER PARTS REPRESENTATIVE, BRADLEY CYNTHIA PARTS REPRESENTATIVE Unavailable [email or web address] LEUBNER PARTS REPRESENTATIVE, BRADLEY CYNTHIA PARTS REPRESENTATIVE Unavailable [email or web address] LEUBNER PARTS REPRESENTATIVE, BRADLEY CYNTHIA PARTS REPRESENTATIVE Unavailable [email or web address] LEUBNER PARTS REPRESENTATIVE, BRADLEY CYNTHIA PARTS REPRESENTATIVE Unavailable [email or web address] LEUBNER PARTS REPRESENTATIVE, BRADLEY CYNTHIA PARTS REPRESENTATIVE Unavailable [email or web address] LEUBNER PARTS REPRESENTATIVE, BRADLEY CYNTHIA PARTS REPRESENTATIVE Unavailable [email or web address] LEUBNER PARTS REPRESENTATIVE, BRADLEY CYNTHIA PARTS REPRESENTATIVE Unavailable [email or web address] LEUBNER PARTS REPRESENTATIVE, BRADLEY CYNTHIA PARTS REPRESENTATIVE Unavailable [email or web address] LEUBNER PARTS REPRESENTATIVE, BRADLEY CYNTHIA PARTS REPRESENTATIVE Unavailable [email or web address] LEUBNER PARTS REPRESENTATIVE, BRADLEY CYNTHIA PARTS REPRESENTATIVE Unavailable [email or web address] LEUBNER PARTS REPRESENTATIVE, BRADLEY CYNTHIA PARTS REPRESENTATIVE Unavailable [email or web address] LEUBNER PARTS REPRESENTATIVE, BRADLEY CYNTHIA PARTS REPRESENTATIVE Unavailable [email or web address] LEUBNER PARTS REPRESENTATIVE, BRADLEY CYNTHIA PARTS REPRESENTATIVE Unavailable [email or web address] LEUBNER PARTS REPRESENTATIVE, BRADLEY CYNTHIA PARTS REPRESENTATIVE Unavailable [email or web address] Brenda Greene MD Unavailable [...] Unavailable Unavailable Brenda Greene MD Unavailable Unavailable Brenad Greene MD Unavailable Unavailable Brenda Greene MD [...] is protected by Article 27-F of the [facility] Public Health law. If you continue you may have access to information: Regarding HIV / AIDS; Provided by facilities licensed or operated by the [facility] Office of Mental Health; or Provided by the [facility] Office for People With Developmental Disabilities. If such information is present, then the following [facility] mandated warning applies: This information has been [...] law may result in a fine or mcc sentence or both. A general authorization for the release of medical or other information is NOT sufficient authorization for further disc losure. Family History Family Member Name Family Member Gender Family Member Status Date o f Status Description Data Source(s) Unknown Unknown Problem MEDENT ([facility]) Unknown Female Problem [facility] Encounters Encounter Providers Location Date Indications Data Source(s ) Outpatient Attender: Georgi Greene MD 03/30/2021 12:00:00 A M [facility] Outpatient Attender: GLORIA BEYER MD 03/01/2021 12:00: 00 AM [facility] Outpatient Attender: RUSTAM CHRISTENSEN MD 03/01/2021 12:00:00 A M [facility] Outpatient Attender: KYLE ChicasA-BRAEDENR 02/16/2021 11 :26:47 AM [facility] Outpatient Attender: KYLE PADRON MDReferrer: Fabian Valladares dd, MD 02/15/2021 12:00:00 AM EDT follow up [facility] follow [place] [address] [facility] [address] 02/14/2021 12:00:00 AM EDT [facility] Outpatient Attender: GLORIA BEYER MD [id number] 12:00:00 AM [facility] [place] [address] [facility] [address] 02/03/2021 12:00:00 AM EDT [facility]1 [facility] [place] [address] [facility] [address] 02/02/2021 12:00:00 AM EDT [facility]CW1 [facility] Outpatient Attender: RUSTAM CHRISTENSEN MD [id number]-ONCCACTR 2020 12:00:00 AM EDT - 02/01/2021 04:35:04 PM EDT Malignant neoplasm of prostate [facility] Malignant neoplasm of prostate [place] [address] [facility] [address] 01/27/2021 12:00:00 AM EDT [facility]1 [facility] [place] [address] [facility] [address] 01/26/2021 12:00:00 AM EDT eCW1 ([facility]) Outpatient Attender: KYLE PADRON MD 01/26/2021 12:00:00 AM [facility] Outpatient Attender: KYLE PADRON MD 01/25/2021 12:00:00 AM [facility] Outpatient 01/25/2021 12:00:00 AM [facility] Outpatient Attender: KYLE PADRON MD 01/25/2021 12:00:00 AM [facility] Outpatient 01/25/2021 12:00:00 AM [facility] [place] [address] [facility] [address] 01/20/2021 12:00:00 AM EDT eC ([facility]) Outpatient 01/20/2021 12:00:00 AM [facility] Outpatient Attender: KYLE PADRON MD 01/20/2021 12:00:00 AM [facility] Outpatient 01/19/2021 12:00:00 AM [facility] Outpatient Attender: Re McleanReferrer: Georgi Cuba 07-RONCACTR 01/18/2021 12:00:00 AM EDT - 01/18/2021 04:02:51 PM EDT on [facility] on treat Outpatient 01/18/2021 12:00:00 AM [facility] Outpatient Attender: Re Mclean 01/18/2021 12:00:00 AM [facility] Outpatient Attender: RUSTAM CHRISTENSEN MD 01/18/2021 12:00:00 A M [facility] Inpatient Attender: Debbi KEATINGeferrer: Debbi Amaro MD 01/13/2021 12:00:00 AM [facility] Inpatient Attender: Debbi Gutiérrez itter: Debbi Amaro MDReferrer: Debbi Amaro MD 01/12/2021 08:12:49 AM [facility] Outpatient Attender: KYLE PADRON MD [id number] 12/29 12:00:00 AM EDT - 01/12/2021 02:53:08 PM [facility] Inpatient Attender: Vin Rico nder: Debbi Amaro MDAdmitter: Vin TorresReferrer: Debbi Amaro MD [id number] 01/11/2021 12:00:00 AM EDT - 01/17/2021 06:39:00 PM [facility] Patient discharged. Outpatient Attender: RUSTAM KEATINGeferrer: CYNTHIA ORTIZ NP 07A-ONCCACTR 01/11/2021 12:00:00 AM EDT - 01/11/2021 02:44:31 PM [facility] Outpatient 01/11/2021 12:00:00 AM [facility] Outpatient Attender: KYLE PADRON MD 01/11/2021 12:00:00 AM [facility] Outpatient 01/11/2021 12:00:00 AM [facility] Outpatient Attender: KYLE PADRON MD 01/11/2021 12:00:00 AM [facility] Outpatient Attender: KYLE PADRON MDReferrer: Georgi hernandez MD 12/31/2020 12:00:00 AM [facility] Outpatient Attender: KYLE PADRON MDReferrer: Georgi hernandez MD 07A-RONCACTR 12/28/2020 12:00:00 AM EDT - 12/28/2020 04:41:31 PM [facility] Unknown [facility] [facility], [facility] [address] 12/23/2020 12:00:00 AM EDT [facility] ([facility]) Outpatient Attender: Georgi Stalpeserrer: Fabian Infante MD 07A-XXHAURO 12/22/2020 12:00:00 AM EDT - 12/22/2020 12:18:33 PM [facility] Outpatient 12/21/2020 12:00:00 AM [facility] Outpatient Attender: CHAYITO BOOKER 12/20/2020 12:00:00 AM [facility] Outpatient Referrer: CYNTHIA ORTIZ NP 12/14/2020 12: 17:10 PM EDT Lower abdominal pain, unspecified [facility] Lower abdominal pain, unspecified Outpatient Attender: CYNTHIA ORTIZ NP [id number] 12/14 12:00:00 AM EDT - 12/14/2020 03:59:07 PM [facility] Outpatient Attender: CYNTHIA ORTIZ NP 12/14/2020 12:00:00 AM [facility] Outpatient Attender: Georgi Sibley: Fabian Infante MD [id number] 12/01/2020 12:00:00 AM EDT - 12/01/2020 03:42:02 PM [facility] Outpatient Attender: GLORIA BEYER MD [id number] 12:00:00 AM [facility] Outpatient Attender: RUSTAM Mcdonough-ONCCACTR 2020 12:00:00 AM EDT - 11/23/2020 03:46:02 PM [facility] Outpatient Referrer: RUSTAM CHRISTENSEN MD 11/22/2020 12:0 0:00 AM EDT Malignant neoplasm of prostate [facility] Malignant neoplasm of prostate Outpatient Attender: RUSTAM CHRISTENSEN MD 11/19/2020 12:00:00 A M [facility] [place] [address] [facility] [address] 11/18/2020 12:00:00 AM EDT [facility]CW1 [facility] [place] [address] [facility] [address] 11/17/2020 12:00:00 AM EDT [facility] Outpatient Attender: RUSTAM Mcdonough-ONCCACTR 2020 12:00:00 AM EDT - 11/16/2020 04:31:42 PM [facility] Outpatient Referrer: RUSTAM CHRISTENSEN MD 11/16/2020 12:0 0:00 AM EDT Malignant neoplasm of [facility] Malignant neoplasm of prostate Outpatient Attender: RUSTAM CHRISTENSEN MD 11/16/2020 12:00:[address] [facility] Outpatient Referrer: RUSTAM CHRISTENSEN MD 11/16/2020 12:00:00 A M [facility] Outpatient Attender: GLORIA BEYER MD 11/16/2020 12:00: 00 AM [facility] Outpatient Referrer: RUSTAM CHRISTENSEN MD 11/15/2020 12:00:00 A M [facility] [place] [address] [facility] [address] 11/10/2020 12:00:00 AM EDT [facility] [place] [address] [facility] [address] 11/08/2020 12:00:00 AM EDT [facility] [place] [address] [facility] [address] 11/05/2020 12:00:00 AM EDT eCW1 ([facility] Outpatient Attender: KAMALA ARCHER MD 11/03/2020 12:00:00 AM [facility] Outpatient [address] [facility] [address] 10/20/2020 12:00:00 AM EDT [facility]CW1 ([facility] [place] [address] [facility] [address] 10/20/2020 12:00:00 AM EDT eCW1 [facility] Outpatient Attender: RUSTAM CHRISTENSEN MD [id number] 2020 12:00:00 AM EDT - 10/19/2020 03:28:21 PM [facility] Unknown [address] [facility] [address] 10/19/2020 12:00:00 AM EDT eCW1 ([facility]) [place] [address] [facility] [address] 10/19/2020 12:00:00 AM EDT [facility]CW1 ([facility] [place] [address] [facility] [address] 10/11/2020 12:00:00 AM EDT eCW1 ([facility]) Outpatient Referrer: CYNTHIA ORTIZ NP 10/05 12:00:00 AM EDT - 10/05/2020 11:59:00 PM [facility] Outpatient Referrer: CYNTHIA ORTIZ NP 10/05/2020 12: 00:00 AM EDT Malignant neoplasm of prostate [facility] Malignant neoplasm of prostate Outpatient Referrer: CYNTHIA ORTIZ NP 09/16/2020 12:00:00 AM [facility] Outpatient Referrer: CYNTHIA ORTIZ NP 09/16/2020 12:00:00 AM [facility] Outpatient Referrer: CYNTHIA ORTIZ NP 09/02/2020 12:00:00 AM [facility] Outpatient Referrer: CYNTHIA ORTIZ NP 09/02/2020 12:00:00 AM [facility] Unknown [address] [facility] [address] 08/24/2020 12:00:00 AM EDT eCW1 ([facility]) Outpatient Attender: RUSTAM Mcdonough-ONCCACTR 2020 12:00:00 AM EDT - 08/20/2020 12:16:21 PM EDT Malignant neoplasm of prostate [facility] Malignant neoplasm of prostate Outpatient Attender: GLORIA Mcdonough-MLTCACTR 12:00:00 AM EDT - 08/17/2020 02:04:10 PM EDT Encounter for palliative care [facility] Encounter for palliative care Unknown [address] [facility] [address] 08/13/2020 12:00:00 AM EDT eCW1 ([facility]) Outpatient Referrer: CYNTHIA ORTIZ NP 08/10/2020 12:00:00 AM [facility] Outpatient Referrer: CYNTHIA ORTIZ NP 08/10/2020 12:00:00 AM [facility] Outpatient Referrer: CYNTHIA ORTIZ NP 08/06/2020 12:00:00 AM [facility] Outpatient Referrer: CYNTHIA ORTIZ NP 08/06/2020 12:00:00 AM [facility] Outpatient [address] [facility] [address] 07/19/2020 12:00:00 AM EDT eCW1 ([facility]) [place] [address] [facility] [address] 07/02/2020 12:00:00 AM EST eCW1 ([facility]) Outpatient Attender: GLORIA ChicasA-MLTCACTR 12:00:00 AM EST - 06/02/2020 08:23:27 AM EST Encounter for palliative care [facility] Encounter for palliative care Outpatient Attender: GLORIA BEYER MD 06/01/2020 12:00: 00 AM [facility] Outpatient Attender: GLORIA BEYER MD 05/26/2020 12:00: 00 AM [facility] Outpatient Attender: RUSTAM ChicasA-ONCCACTR 2020 12:00:00 AM EST - 05/21/2020 11:28:05 AM EST Malignant neoplasm of prostate [facility] Malignant neoplasm of prostate Outpatient Attender: RUSTAM CHRISTENSEN MD 05/21/2020 12:00:00 A M [facility] Unknown [address] [facility] [address] 05/18/2020 12:00:00 AM EST eCW1 ([facility]) [place] [address] [facility] [place] [address] 05/06/2020 12:00:00 AM EST eCW1 ([facility]) Unknown [address] [facility] [address] 04/26/2020 12:00:00 AM EST eCW1 ([facility]) [place] [address] [facility] [place] [address] 04/15/2020 12:00:00 AM EST eCW1 ([facility]) [place] [address] [facility] [place] [address] 04/09/2020 12:00:00 AM EST eCW1 ([facility]) Unknown [address] [facility] [place] [address] 03/24/2020 12:00:00 AM EST eCW1 ([facility]) [place] [address] [facility] [place] [address] 03/10/2020 12:00:00 AM EST eCW1 ([facility]) Unknown [address] [facility] [place] [address] 03/09/2020 12:00:00 AM EST eCW1 ([facility]) Outpatient [address] [facility] [place] [address] 03/08/2020 12:00:00 AM EST eCW1 ([facility]) Outpatient Attender: GLORIA ChicasA-MLTCACTR 12:00:00 AM EDT - 02/25/2020 03:17:34 PM EDT Malignant neoplasm of prostate [facility] Malignant neoplasm of prostate Outpatient Attender: CYNTHIA ORTIZ PARTS REPRESENTATIVE 07A-ONCCACTR 02/18 12:00:00 AM EDT - 02/19/2020 03:53:47 PM EDT Malignant neoplasm of prostate [facility] Malignant neoplasm of prostate [place] [address] [facility] [address] 02/11/2020 12:00:00 AM EDT eC ([facility]) Outpatient Attender: CYNTHIA ORTIZ NPAttender: RUSTAM CHRISTENSEN MD 02/06/2020 12:00:00 AM [facility] Outpatient Attender: GLORIA BEYER MD 02/04/2020 12:00: 00 AM [facility] Medications Medication Brand Name Start [...] NOSE DAILY FOR 7 DAYS SOLD: 01/18/2021 [facility] Folic Acid 1 MG Oral Tablet Folic Acid 1 MG Oral Table t (FOLVITE) Folic Acid 1 MG Oral Tablet (FOLVITE) 01/18/2021 12:00:00 AM EDT 1 mg Oral active Take 1 tablet by mouth daily [facility] 324 mg (38 mg iron) 01/18/2021 12:00:00 AM EDT tablet 15 TAKE ONE TABLET BY MOUTH EVERY OTHER DAY TAKE ONE TABLET BY MOUTH EVERY OTHER DAY SOLD: 01/18/2021 [employer] magnesium sulfate in dextrose 5 % infusion (premix) 1 g 0409 -6727-23 01/17/2021 06:00:00 AM EDT 1 g Intravenous completed 1 g, Intravenous, Administer over 60 Minutes, Once, On Sun01/17/21 at 0600, For 1 dose [facility] Medication administered onsite salmon calcitonin 200 UNT/ML Injectable Solution Calcitonin ([place]) 200 UNIT/ML Injection Solution (MIACALCIN) Calcitonin ([place]) 200 UNIT/ML Injectio n Solution (MIACALCIN) 01/17/2021 12:00:00 AM EDT 200 U Subcutaneous aborted Inject 1 mL into the skin daily for 7 days [facility] salmon calcitonin 200 UNT/ML Injectable Solution Calcitonin ([place]) 200 UNIT/ML Injection Solution (MIACALCIN) Calcitonin ([place]) 200 UNIT/ML Injectio n Solution (MIACALCIN) 01/17/2021 12:00:00 AM EDT 200 U Subcutaneous aborted Inject 1 mL into the skin daily for 7 days [facility] salmon calcitonin 200 UNT/ACTUAT Nasal S pray Calcitonin ([place]) 200 UNIT/ACT Nasal Solution (MIACALCIN) Calcitonin ([place]) 200 UNIT/ACT Nasal S olution (MIACALCIN) 01/17/2021 12:00:00 AM EDT 1 {spray} Nasal abo rted 1 spray by Nasal route daily for 7 days [facility] salmon calcitonin 200 UNT/ACTUAT Nasal S pray Calcitonin ([place]) 200 UNIT/ACT Nasal Solution (MIACALCIN) Calcitonin ([place]) 200 UNIT/ACT Nasal S olution (MIACALCIN) 01/17/2021 12:00:00 AM EDT 1 {spray} Nasal act dunia 1 spray by Nasal route daily for 7 days [facility] ferrous gluconate 324 MG Oral Tablet Leobardo martin Gluconate 324 (38 Fe) MG Oral Tablet (FERGON) Ferrous Gluconate 324 (38 Fe) MG Oral Tablet (FERGON) 01/17/2021 12:00:00 AM EDT 324 mg Oral active Take 1 tablet by mouth every other day [facility] Oxycodone Hydrochloride 15 MG Oral Table t oxyCODONE (ROXICODONE) immediate release tablet 15 mg oxyCODONE (ROXICODONE) immediate release tablet 15 mg 01/16/2021 07:57:10 AM EDT 15 mg Oral active Chron ic Pain 15 mg, Oral, Every 4 hours PRN, Moderate Pain (Pain Scale Score 4-6), Starting on 01/16/21 at 0757, For 43 hours [facility] Chronic Pain Medication administered onsite NaCl infusion 0.9 % 0370-9762-46 01/16/2021 07:30:00 AM EDT Intravenous completed at 150 mL/hr, Intrav enous, Continuous, Starting on 01/16/21 at 0730, For 24 hours [facility] Medication administered onsite salmon calcitonin 200 UNT/ML Injectable Solution calcitonin (MIACALCIN) injection 200 Units calcitonin (MIACALCIN) injection 200 Units 01/15/2021 04:30:00 PM EDT 200 U Subcutaneous completed 200 Units, Subcutaneous, Once, On 01/15/21 at 1630, For 1 dose [facility] Medication administered onsite potassium chloride (K-DUR) dissolvable tablet 40 mEq 11870-8 99-01 01/15/2021 09:00:00 AM EDT 40 meq Oral completed 40 mEq, Oral, 2 Times Daily, First dose (after last reorder) on 01/15/21 at 0900, For 3 doses
May be dissolved in water for patients with a G-Tube or unable to swallow. If concern for clogging G-Tube, may contact Pharmacy to switch formulation to a powder packet.
[facility] Medication administered onsite 50 ML Magnesium Sulfate 40 MG/ML Injecti on magnesium sulfate infusion 2 g/50 mL (premix) magnesium sulfate infusion 2 g/50 mL (premix) 01/16/20 07:30:00 AM EDT 2 g Intravenous completed 2 g, Intravenous, Administer over 60 Minutes, Once, On Sun01/15/21 at 0730, For 1 dose [facility] Medication administered onsite chlorhexidine gluconate 1.2 MG/ML Mouthw jacqueline chlorhexidine (PERIDEX) 0.12 % solution 15 mL chlorhexidine (PERIDEX) 0.12 % solution 15 mL 01/15/20 09:00:00 PM EDT 15 mL Mouth/Throat active 15 mL, Mouth/Throat, 2 Times Daily, First dose on Sun01/14/21 at 2100, For 30 days
Do not swallow.
[facility] Medication administered onsite Baclofen 10 MG Oral Tablet baclofen (LIORESAL) tablet 10 mg baclofen (LIORESAL) tablet 10 mg 01/14/2021 05:00:00 PM EDT 10 mg Oral activ e 10 mg, Oral, Three Times Daily Standard, First dose on Sun01/14/21 at 1700, For 30 days [facility] Medication administered onsite salmon calcitonin 200 UNT/ML Injectable Solution calcitonin (MIACALCIN) injection 200 Units calcitonin (MIACALCIN) injection 200 Units 01/14/2021 04:30:00 PM EDT 200 U Subcutaneous completed 200 Units, Subcutaneous, Once, On Sun01/14/21 at 1630, For 1 dose [facility] Medication administered onsite Oxycodone Hydrochloride 15 MG Oral Table t oxyCODONE (ROXICODONE) immediate release tablet 15 mg oxyCODONE (ROXICODONE) immediate release tablet 15 mg 01/14/2021 11:43:06 AM EDT 15 mg Oral active Chron ic Pain 15 mg, Oral, Every 4 hours PRN, Moderate Pain (Pain Scale Score 4-6), Starting on Sun01/14/21 at 1143, For 43 hours [facility] Chronic Pain Medication administered onsite Aspirin 81 MG Chewable Tablet aspirin chewable tablet 81 mg aspirin chewable tablet 81 mg 01/14/2021 09:00:00 AM EDT 81 mg Oral activ e 81 mg, Oral, Daily Standard, First dose (after last reorder) on Sun01/14/21 at 0900, For 30 doses [facility] Medication administered onsite potassium chloride (K-DUR) dissolvable tablet 40 mEq 24595-5 99-01 01/14/2021 07:30:00 AM EDT 40 meq Oral completed 40 mEq, Oral, Once, On Sun01/14/21 at 0730, For 1 dose
May be dissolved in water for patients with a G- Tube or unable to swallow. If concern for clogging G-Tube, may contact Pharmacy to switch formulation to a powder packet.
[facility] Medication administered onsite NaCl infusion 0.9 % 5805-3671-26 01/14/2021 07:30:00 AM EDT Intravenous aborted at 150 mL/hr, Intrav enous, Continuous, Starting on Sun01/14/21 at 0730, For 48 hours [facility] Medication administered onsite alteplase (CATHFLO) injection 2 mg 19440 01/14/2021 12:00:00 AM EDT 2 mg Intracatheter completed 2 mg, Intra catheter, Once, On Sun01/14/21 at 0000, For 1 dose
To be instilled by PICC team or IR nurse only for at least 30 minutes
[facility] Medication administered onsite potassium phosphate infusion 6 mmol/100 mL (premix) 01/13/2021 02:15:00 PM EDT 6 mmol Intravenous completed 6 mmol, Intravenous, at 25 mL/hr, Once, On Neha 01/13/21 at 1415, For 1 dose
Slower infusion rates (e.g. over 4 hours) are recommended in patients with renal impairment and/or less severe hypophosphatemia. Product contains 8.8 mEq of potassium.
[facility] Medication administered onsite 50 ML Magnesium Sulfate 40 MG/ML Injecti on magnesium sulfate infusion 2 g/50 mL (premix) magnesium sulfate infusion 2 g/50 mL (premix) 01/14/20 02:15:00 PM EDT 2 g Intravenous completed 2 g, Intravenous, Administer over 60 Minutes, Once, On Neha 01/13/21 at 1415, For 1 dose [facility] Medication administered onsite 2 ML Midazolam 1 MG/ML Injection midazolam (PF) (VERSE D) injection midazolam (PF) (VERSED) injection 01/13/2021 02:10:15 PM EDT completed Once PRN, Starting on Neha 01/13/21 at 1410 [facility] Medication administered onsite fentaNYL (SUBLIMAZE) (PF) injection 3263-2491-31 01/13/2021 02:10:01 PM EDT completed Once PRN, Starting on Neha 01/13/21 at 1410 [facility] Medication administered onsite sodium bicarbonate 8.4 % 8 mL in lidocaine (XYLOCAINE) 2 % 2 mL injection 01/13/2021 02:08:44 PM EDT completed Once PRN, Starting on Neha 01/13/21 at 1408 [facility] Medication administered onsite Folic Acid 1 MG Oral Tablet folic acid (FOLVITE) table t 1 mg folic acid (FOLVITE) tablet 1 mg 01/13/2021 01:45:00 PM EDT 1 mg Oral active 1 mg, Oral, Daily Standard, First dose on Neha 01/13/21 at 1345, For 30 days [facility] Medication administered onsite Piperacillin 3000 MG [...] of piperacillin-tazobactam is compatible with Lactated Ringers.
[facility] Medication administered onsite potassium chloride (K-DUR) dissolvable tablet 40 mEq 77487-0 99-01 01/13/2021 07:45:00 AM EDT 40 meq Oral completed 40 mEq, Oral, Once, On Neha 01/13/21 at 0745, For 1 dose
May be dissolved in water for patients with a G- Tube or unable to swallow. If concern for clogging G-Tube, may contact Pharmacy to switch formulation to a powder packet.
[facility] Medication administered onsite NaCl infusion 0.9 % [id number] 01/13/2021 07:45:00 AM EDT Intravenous aborted at 150 mL/hr, Intrav enous, Continuous, Starting on Sun01/13/21 at 0745, For 24 hours [facility] Medication administered onsite Oxycodone Hydrochloride 15 MG Oral Table t oxyCODONE (ROXICODONE) immediate release tablet 7.5 mg oxyCODONE (ROXICODONE) immediate release tablet 7.5 mg 01/13/2021 07:33:32 AM EDT 7.5 mg Oral aborted Chron ic Pain 7.5 mg, Oral, Every 4 hours PRN, Moderate Pain (Pain Scale Score 4-6), Starting on Sun01/13/21 at 0733, For 72 hours [facility] Chronic Pain Medication administered onsite potassium chloride 20 mEq in 100 mL IVPB (premix) [id number]- [id number] 01/13/2021 03:00:00 AM EDT 20 meq Intravenous completed 20 mEq, Intravenous, Administer over 60 Minutes, Every 1 hour, First dose on Sun01/13/21 at 0300, For 2 doses [facility] Medication administered onsite salmon calcitonin 200 UNT/ML Injectable Solution calcitonin (MIACALCIN) injection 200 Units calcitonin (MIACALCIN) injection 200 Units 01/12/2021 06:45:00 PM EDT 200 U Intramuscular completed 200 Units, Intramuscular, Once, On Sun01/12/21 at 1845, For 1 dose [facility] Medication administered onsite NaCl infusion 0.9 % [id number] 01/12/2021 02:15:00 PM EDT Intravenous aborted at 150 mL/hr, Intrav enous, Continuous, Starting on Sun01/12/21 at 1415, For 24 hours [facility] Medication administered onsite NaCl infusion 0.9 % [id number] 01/12/2021 09:15:00 AM EDT Intravenous aborted at 150 mL/hr, Intrav enous, Continuous, Starting on Sun01/12/21 at 0915, For 24 hours [facility] Medication administered onsite Aspirin 81 MG Chewable Tablet aspirin chewable tablet 81 mg aspirin chewable tablet 81 mg 01/12/2021 09:00:00 AM EDT 81 mg Oral abort ed 81 mg, Oral, Daily Standard, First dose on Sun01/12/21 at 0900, For 30 doses [facility] Medication administered onsite POLYETHYLENE GLYCOL 3350 [...] due to potential increased risk for aspiration.
[facility] Medication administered onsite Tamsulosin hydrochloride 0.4 MG Oral Capsule tamsulosi n (FLOMAX) capsule 0.4 mg tamsulosin (FLOMAX) capsule 0.4 mg 01/12/2021 09:00:00 AM EDT 0.4 mg Oral active 0.4 mg, Oral, Daily Standard, First dose on Sun01/12/21 at 0900, For 30 days
Swallow whole. Do not crush, chew or open.
[facility] Medication administered onsite salmon calcitonin 200 UNT/ML Injectable Solution calcitonin (MIACALCIN) injection 200 Units calcitonin (MIACALCIN) injection 200 Units 01/12/2021 08:00:00 AM EDT 200 U Intramuscular completed 200 Units, Intramuscular, Once, On Sun01/12/21 at 0800, For 1 dose [facility] Medication administered onsite potassium phosphate infusion 6 mmol/100 mL (premix) 01/12/2021 03:15:00 AM EDT 6 mmol Intravenous completed 6 mmol, Intravenous, at 25 mL/hr, Once, On Sun01/12/21 at 0315, For 1 dose
Slower infusion rates (e.g. over 4 hours) are recommended in patients with renal impairment and/or less severe hypophosphatemia. Product contains 8.8 mEq of potassium.
[facility] Medication administered onsite potassium chloride 20 mEq in 100 mL IVPB (premix) [id number] 01/11/2021 09:00:00 PM EDT 20 meq Intravenous completed 20 mEq, Intravenous, Administer over 60 Minutes, Every 1 hour, First dose on Sun01/11/21 at 2100, For 2 doses [facility] Medication administered onsite Docusate Sodium 100 MG Oral Capsule docusate sodium (C OLACE) capsule 100 mg docusate sodium (COLACE) capsule 100 mg 01/11/2021 09:00:00 PM EDT 100 mg Oral active 100 mg, Oral, 2 Times Daily, First dose on Sun01/11/21 at 2100, For 30 days [facility] Medication administered onsite gabapentin 300 MG Oral Capsule gabapentin (NEURONTIN) capsule 300 mg gabapentin (NEURONTIN) capsule 300 mg 01/11/2021 09:00:00 PM EDT 300 mg Oral active Neuropathic Pain 300 mg, Oral, Nightly, Indic ations: Neuropathic Pain, First dose (after last modification) on Sun01/11/21 at 2100, For 8 doses [facility] Neuropathic Pain Medication administered onsite Oxycodone Hydrochloride 15 MG Oral Table t oxyCODONE (ROXICODONE) immediate release tablet 7.5 mg oxyCODONE (ROXICODONE) immediate release tablet 7.5 mg 01/11/2021 07:44:33 PM EDT 7.5 mg Oral aborted Chron ic Pain 7.5 mg, Oral, Every 4 hours PRN, Moderate Pain (Pain Scale Score 4-6), Starting on Sun01/11/21 at 1944, For 69 hours [facility] Chronic Pain Medication administered onsite Piperacillin [...] piperacillin- tazobactam is compatible with Lactated Ringers.
[facility] Medication administered onsite NaCl infusion 0.9 % [id number] 01/11/2021 05:30:00 PM EDT Intravenous completed at 150 mL/hr, Intrav enous, Continuous, Starting on Sun01/11/21 at 1730, For 12 hours [facility] Medication administered onsite Acetaminophen 325 MG [...] mg from all sources in 24 hours.
[facility] Medication administered onsite Carisoprodol 350 MG Oral Tablet carisoprodol (SOMA) ta blet 350 mg carisoprodol (SOMA) tablet 350 mg 01/11/2021 05:17:53 PM EDT 350 mg Oral active 350 mg, Oral, Three Times Daily-PRN, muscle spasms, Starting on Sun01/11/21 at 1717, For 7 days [facility] Medication administered onsite Ondansetron 8 MG Oral Tablet ondansetron (ZOFRAN) tabl et 8 mg ondansetron (ZOFRAN) tablet 8 mg 01/11/2021 05:17:53 PM EDT 8 mg Oral active 8 mg, Oral, Every 8 hours PRN, Nausea, Vomiting, Starting on Sun01/11/21 at 1717, For 30 days [facility] Medication administered onsite NaCl infusion 0.9 % [id number] 01/11/2021 02:30:00 PM EDT Intravenous completed Hypercalcemia at 125 mL/hr, Intrav enous, Once, On Sun01/11/21 at 1430, For 1 dose [facility] Hypercalcemia Medication administered onsite Piperacillin 3000 [...] of piperacillin-tazobactam is compatible with Lactated Ringers.
[facility] Acute cystitis with hematuria Medication administered onsite salmon calcitonin 200 UNT/ML Injectable Solution calcitonin (MIACALCIN) injection 288 Units calcitonin (MIACALCIN) injection 288 Units 01/11/2021 02:15:00 PM EDT 288 U Subcutaneous completed Hypercalc emia 288 Units, Subcutaneous, Once, On Sun01/11/21 at 1430, For 1 dose [facility] Hypercalcemia Medication administered onsite sodium chloride 0.9 % bolus 1,000 mL [id number] 01/11/2021 12:45: 00 PM EDT 1000 mL Intravenous completed Hypercalcemia 1,00 0 mL, Intravenous, Once, On Sun01/11/21 at 1245, For 1 dose [facility] Hypercalcemia Medication administered onsite alteplase (CATHFLO) injection 2 mg [id number] 01/11/2021 11:00:00 AM EDT 2 mg Intracatheter completed Malignant tumor of prostate 2 mg, Intracatheter, Once, On Sun01/11/21 at 1100, For 1 dose
To be instilled by PICC team or IR nurse only for at least 30 minutes
[facility] Malignant tumor of prostate Medication administered onsite lidocaine (XYLOCAINE) 2 % urojet 20 mL [id number] 12:00:00 PM EDT 20 mL Urethral aborted [facility] Potassium Chloride 0.1 MEQ/ML Injectable Solution potassium chloride 10 mEq in 100 mL IVPB (premix) potassium chloride 10 mEq in 100 mL IVPB (premix) 12/14/2020 02:00:00 PM EDT 10 meq Intravenous completed Hypokalemia 10 mEq, Intravenous, Administer over 60 Minutes, Once, On Sun12/14/20 at 1400, For 1 dose [facility] Hypokalemia Medication administered onsite sodium chloride 0.9 % bolus 1,000 mL [id number] 12/14/2020 01:45: 00 PM EDT 1000 mL Intravenous completed Dehydration 1,000 mL, Intravenous, Once, On Sun12/14/20 at 1345, For 1 dose
Infuse over 90 minutes
[facility] Dehydration Medication administered onsite sennosides, SENIOR CARE 8.6 MG Oral Tablet senna tablet 2 tablet sen na tablet 2 tablet 12/14/2020 01:30:00 PM EDT 2 {tbl} Oral com pleted Drug-induced constipation 2 tablet, Oral, Once, On Sun12/14/20 at 1330, For 1 dose [facility] Drug-induced constipation Medication administered onsite 8.6 mg 12/14/2020 12:00:00 AM EDT tablet 30 TAKE ONE TABLET BY MOUTH ONCE DAILY TAKE ONE TABLET BY MOUTH ONCE DAILY SOLD: 12/14/2020 [facility] sennosides, SENIOR CARE 8.6 MG Oral Tablet SM Senna Laxative 8 .6 MG Oral Tablet SM Senna Laxative 8.6 MG Oral Tablet 12/14/2020 12:00:00 AM EDT 1 {tbl} Oral active Take 1 tablet by mouth daily [facility] 17 gram/dose 12/14/2020 12:00:00 AM EDT powder 510 MIX 17 GRAMS IN 4-8 OUNCES OF LIQUID AND DRINK ONCE DAILY MIX 17 GRAMS IN 4-8 OUNCES OF LIQUID AND DRINK ONCE DAILY SOLD: 12/14/2020 [facility] POLYETHYLENE GLYCOL 3350 142 MG/ML Oral Solution PEG 3350 17 GM/SCOOP Oral Powder (MIRALAX) PEG 3350 17 GM/SCOOP Oral Powder (MIRALAX) 12/14/2020 12:00:00 AM EDT 17 g Oral active Drug-induced constipatio n Take 17 g by mouth daily [facility] Drug-induced constipation Docusate Sodium 50 MG / sennosides, SENIOR CARE 8.6 MG Oral Tablet Senna-Docusate Sodium 8.6-50 MG Oral Tablet (SENOKOT-S) Senna-Docusate Sodium 8.6-50 MG Oral Tab let (SENOKOT-S) 12/14/2020 12:00:00 AM EDT 1 {tbl} Oral a ctive Drug-induced constipation Take 1 tablet by mouth daily [facility] Drug-induced constipation 10 gram/15 mL 12/14/2020 12:00:00 AM EDT solution 240 TAKE 30MLS BY MOUTH THREE TIMES A DAY FOR 3 DAYS TAKE 30MLS BY MOUTH THREE TIMES A DAY FOR 3 DAYS SOLD: 12/14/2020 [employer] Lactulose 667 MG/ML Oral Solution Lactul ose 10 GM/15ML Oral Solution (CHRONULAC) Lactulose 10 GM/15ML Oral Solution (CHRONULAC) 12/14/2020 12:00: 00 AM EDT 20 g Oral active Drug-induced constipation Take 30 mLs by mouth Three times daily for 3 days [facility] Drug-induced constipation 15 mg 12/11/2020 12:00:00 [...] Daily Dose: 90 mg Indications: Chronic Pain [facility] Chronic Pain Self-Cath Coude Tip [id number] 11/29/2020 12:00:00 AM EDT active Use as directed. DAILY [facility] 1.5 ML Leuprolide Acetate 15 MG/ML Prefi lled Syringe leuprolide acetate (LUPRON) injection 22.5 mg leuprolide acetate (LUPRON) injection 22.5 mg 11/24/19 11:30:00 AM EDT 22.5 mg Intramuscular completed 22.5 mg, Intramuscular, Once, On Sun11/23/20 at 1130, For 1 dose
FOR IM USE ONLY
[facility] Medication administered onsite Cabazitaxel (JEVTANA) 51 [...] time. Administer through a 0.22 micron filter.
[facility] Prostate cancer metastatic to bone Medication administered onsite Diphenhydramine Hydrochloride 25 MG Oral Capsule diphenhydrAMINE (BENADRYL) capsule 25 mg diphenhydrAMINE (BENADRYL) capsule 25 mg 11/23/2020 10 :30:00 AM EDT 25 mg Oral completed Prostate cancer metast atic to bone 25 mg, Oral, Once, On Sun11/23/20 at 1030, For 1 dose
Give prior to chemotherapy.
[facility] Prostate cancer metastatic to bone Medication administered onsite Famotidine 20 MG Oral Tablet famotidine (PEPCID) table t 20 mg famotidine (PEPCID) tablet 20 mg 11/23/2020 10:30:00 AM EDT 20 mg Oral completed Prostate cancer metastatic to bone 20 mg, Oral, Once, On Sun11/23/20 at 1030, For 1 dose [facility] Prostate cancer metastatic to bone Medication administered onsite Ondansetron 8 MG Oral Tablet ondansetron (ZOFRAN) tabl et 16 mg ondansetron (ZOFRAN) tablet 16 mg 11/23/2020 10:30:00 AM EDT 16 mg Oral completed Prostate cancer metastatic to bone 16 mg, Oral, Once, On Sun11/23/20 at 1030, For 1 dose
Give prior to chemotherapy
[facility] Prostate cancer metastatic to bone Medication administered onsite Dexamethasone 4 MG Oral Tablet dexamethasone (DECADRON ) tablet 20 mg dexamethasone (DECADRON) tablet 20 mg 11/23/2020 10:30:00 AM EDT 20 m g Oral completed Prostate cancer metastatic to bone 20 mg, Oral, Once, On Sun11/23/20 at 1030, For 1 dose
Give prior to chemotherapy.
[facility] Prostate cancer metastatic to bone Medication [...] hours as needed for Nausea or Vomiting [facility] Prostate cancer metastatic to bone Prednisone 10 MG Oral Tablet predniSONE 10 MG Oral Tab let (DELTASONE) predniSONE 10 MG Oral Tablet (DELTASONE) 11/23/2020 12:00:00 AM EDT 10 mg Ora l completed Prostate cancer metastatic to bone Take 1 tablet by mouth daily [facility] Prostate cancer metastatic to bone Prochlorperazine 10 MG Oral Tablet Proch lorperazine Maleate 10 MG Oral Tablet (COMPAZINE) Prochlorperazine Maleate 10 MG Oral Tablet (COMPAZINE) 11/23/2020 12:00:00 AM EDT 10 mg Oral active Prostate cancer metastatic to bone Take 1 tablet by mouth every 6 (six) hours as needed (Nausea/Vomiting) [facility] Prostate cancer metastatic to bone 10 mg 11/23/2020 12:00:00 AM EDT tablet 21 TAKE ONE TABLET BY MOUTH EVERY DAY TAKE ONE TABLET BY MOUTH EVERY DAY SOLD: 11/25/2020 [facility] 8 mg 11/23/2020 12:00:00 AM EDT tablet 20 TAKE ONE TABLET BY MOUTH EVERY 8 HOURS NEEDED FOR NAUSEA OR VOMITING TAKE ONE TABLET BY MOUTH EVERY 8 HOURS A S NEEDED FOR NAUSEA OR VOMITING SOLD: 11/25/2020 [employer] gadobutrol (GADAVIST) contrast injection 9.5 mL [id number] 11/22/2020 05:00:00 PM EDT 0.1 mL/kg Intravenous completed 9.5 mL (rounded from 9.71 mL = 0.1 mL/kg 97.1 kg), Intravenous, 1 TIME IMAGING, On Sun11/22/20 at 1700, For 1 dose, Imaging Protocol
Do not mix or administer in the same IV line with other me dications.
[facility] Medication administered onsite 15 mg 11/17/2020 12:00:00 AM EDT tablet extended release 60 TAKE ONE TABLET BY MOUTH TWICE A DAY MAXIMUM DAILY DOSE = TWO TABLETS TAKE ONE TABLET BY MOUTH TWICE A DAY MAXIMUM DAILY DOSE = TWO TABLETS SOLD: 11/17/2020 [employer] Morphine Sulfate 15 MG Extended Release Oral Tablet Morphine Sulfate ER 15 MG Oral Tablet Extended Release (MS CONTIN) Morphine Sulfate ER 15 MG Oral Tablet Extended Release (MS CONTIN) 11/16/2020 12:00:00 AM EDT 15 mg Oral active Cancer associated painProstate cancer metastatic to bone Take 1 tablet by mouth Two Times Daily , Max Daily Dose: 30 mg [facility] Cancer associated pain Prostate cancer metastatic to bone Ondansetron 4 MG Disintegrating Oral Tablet ONDANSETRON 11/11/2020 12:00:00 AM EDT tablet,disintegrating 30 DISSOLVE O NE TABLET ON TONGUE EVERY 4 HOURS NEEDED FOR NAUSEA DISSOLVE ONE TABLET ON TONGUE EVERY 4 HO URS NEEDED FOR NAUSEA SOLD: 11/12/2020 [facility] Oxycodone Hydrochloride 15 MG Oral Table t oxyCODONE HCl 15 MG Oral Tablet (ROXICODONE) oxyCODONE HCl 15 MG Oral Tablet (ROXICODONE) 12:00:00 AM EDT 15 mg Oral aborted Chronic Pain Peter e 1 tablet by mouth every 4 (four) hours as needed for PainCancer related pain, Max Daily Dose: 90 mg Indications: Chronic [facility] Chronic Pain 15 mg 11/11/2020 12:00:00 AM EDT tablet 180 TAKE ONE TABLET BY MOUTH EVERY 4 HOURS NEEDED FOR CANCER RELATED PAIN , MAXIMUM DAILY DOSE = 6 TABLETS TAKE ONE TABLET BY MOUTH EVERY 4 HOURS NEEDED FOR CANCER RELATED PAIN , MAXIMUM DAILY DOSE = 6 TABLETS SOLD: 11/12/2020 [facility] 500 mg 11/09/2020 12:00:00 AM EDT tablet 14 TAKE ONE TABLET BY MOUTH TWICE A DAY TAKE ONE TABLET BY MOUTH TWICE A DAY SOLD: 11/09/2020 [employer] Ciprofloxacin 500 MG Oral Tablet [Cipro] Cipro 500 MG Cipro 500 MG 11/08/2020 12:00:00 AM EDT 1.0 {tablet} active Ci pro 500 MG eCW1 (Formerly [facility]) 0.05 % 10/24/2020 12:00:00 AM EDT ointment 30 APPLY TO AFFECTED AREA(S) TWO TIMES A DAY IF RASH RECURS ON BODY, DO NOT APPLY TO FACE, GROIN, OR ARMPITS APPLY TO AFFECTED AREA(S) TWO TIMES A DAY IF RASH RECURS ON BODY, DO NOT APPLY TO FACE, GROIN, OR ARMPITS SOLD: 11/17/2020 [facility] 0.05 % 10/24/2020 12:00:00 AM EDT [...] {tablet} active Ci pro 500 MG eCW1 (Formerly [facility]) Ciprofloxacin 500 MG Oral Tablet [Cipro] Cipro 500 MG Cipro 500 MG 10/20/2020 12:00:00 AM EDT 1.0 {tablet} active Ci pro 500 MG eCW1 (Formerly [facility]) Ciprofloxacin 500 MG Oral Tablet [Cipro] Cipro 500 MG Cipro 500 MG 10/20/2020 12:00:00 AM EDT 1.0 {tablet} active Ci pro 500 MG eCW1 (Formerly [facility]) 500 mg 10/20/2020 12:00:00 AM EDT tablet 14 TAKE ONE TABLET BY MOUTH EVERY 12 HOURS FOR 7 DAYS TAKE ONE TABLET BY MOUTH EVERY 12 HOURS FOR 7 DAYS TEE [facility] Ciprofloxacin 500 MG Oral Tablet [Cipro] Cipro 500 MG Cipro 500 MG 10/20/2020 12:00:00 AM EDT 1.0 {tablet} active Ci pro 500 MG eCW1 (Formerly [facility]) 300 mg 10/13/2020 12:00:00 AM EDT capsule [...] DAILY DOSE = SIX TABLETS SOLD: 10/11/2020 [facility] Oxycodone Hydrochloride 15 MG Oral Table t oxyCODONE HCl 15 MG Oral Tablet (ROXICODONE) oxyCODONE HCl 15 MG Oral Tablet (ROXICODONE) 12:00:00 AM EDT 15 mg Oral aborted Chronic Pain Peter e 1 tablet by mouth every 4 (four) hours as needed for PainCancer related pain, Max Daily Dose: 90 mg Indications: Chronic Pain [facility] Chronic Pain TC-99M medronate (Tc-MDP) [id number] 10/05/2020 10:45:00 AM EDT Intravenous completed Intravenous, Once, On Sun10/05/20 at 1045, For 1 dose, Imaging Protocol [facility] Medication administered onsite 15 mg 09/10/2020 12:00:00 AM EDT tablet 180 TAKE ONE TABLET BY MOUTH EVERY 4 HOURS NEEDED FOR PAIN , MAXIMUM DAILY DOSE = 6 TABLETS TAKE ONE TABLET BY MOUTH EVERY 4 HOURS NEEDED FOR PAIN , MAXIMUM DAILY DOSE = 6 TABLETS SOLD: 09/13/2020 [facility] Oxycodone Hydrochloride 15 MG Oral Table t oxyCODONE HCl 15 MG Oral Tablet (ROXICODONE) oxyCODONE HCl 15 MG Oral Tablet (ROXICODONE) 12:00:00 AM EDT 15 mg Oral active Chronic Pain Peter e 1 tablet by mouth every 4 (four) hours as needed for PainCancer related pain, Max Daily Dose: 90 mg Indications: Chronic Pain [facility] Chronic Pain 1.5 ML Leuprolide Acetate 15 MG/ML Prefi lled Syringe leuprolide acetate (LUPRON) injection 22.5 mg leuprolide acetate (LUPRON) injection 22.5 mg 08/21/19 21 11:45:00 AM EDT 22.5 mg Intramuscular completed 22.5 mg, Intramuscular, Once, On Sun08/20/20 at 1145, For 1 dose
FOR IM USE ONLY
[facility] Medication administered onsite Oxycodone Hydrochloride 15 MG Oral Table t oxyCODONE HCl 15 MG Oral Tablet (ROXICODONE) oxyCODONE HCl 15 MG Oral Tablet (ROXICODONE) 12:00:00 AM EDT 15 mg Oral active Chronic Pain Peter e 1 tablet by mouth every 4 (four) hours as needed for PainCancer related pain, Max Daily Dose: 90 mg Indications: Chronic Pain [facility] Chronic Pain 0.12 % 08/12/2020 12:00:00 [...] TAKE 4 CAPSULES BY MOUTH EVERY DAY [facility] Primary prostate adenocarcinoma 1.5 ML Leuprolide Acetate 15 MG/ML Prefi lled Syringe leuprolide (ELIGARD) SubQ injection 22.5 mg for 3-month administration leuprolide (ELIGARD) SubQ injection 22.5 mg for 3-month administration 05/21/2020 11:00:00 AM EST 2 2.5 mg Subcutaneous completed Prostate cancer metastatic to bone 22.5 mg, Subcutaneous, Once, Sun05/21/20 at 1100, For 1 dose [facility] Prostate cancer metastatic to bone Medication administered onsite 15 mg 05/14/2020 12:00:00 AM EST tablet 180 TAKE ONE TABLET BY MOUTH EVERY 4 HOURS NEEDED FOR PAIN MAXIMUM DAILY DOSE = SIX TABLETS TAKE ONE TABLET BY MOUTH EVERY 4 HOURS NEEDED FOR PAIN MAXIMUM DAILY DOSE = SIX TABLETS SOLD: 05/14/2020 [employer] Oxycodone Hydrochloride 15 MG Oral Table t oxyCODONE HCl 15 MG Oral Tablet (ROXICODONE) oxyCODONE HCl 15 MG Oral Tablet (ROXICODONE) 12:00:00 AM EST 15 mg Oral active Chronic Pain Peter e 1 tablet by mouth every 4 (four) hours as needed for PainCancer related pain, Max Daily Dose: 90 mg Indications: Chronic Pain [facility] Chronic Pain 15 mg 04/13/2020 12:00:00 [...] EST active Gabapent in 300 MG eCW1 ([facility]ly [facility]) gabapentin 300 MG Oral Capsule Gabapentin 300 MG Gabapentin 300 MG 03/08/2020 12:00:00 AM EST active Gabapent in 300 MG eCW1 (Formerly [facility]) 800 mg 03/08/2020 12:00:00 AM EST tablet [...] EST active Gabapent in 300 MG eCW1 ([facility]ly [facility]) gabapentin 300 MG Oral Capsule Gabapentin 300 MG Gabapentin 300 MG 03/08/2020 12:00:00 AM EST active Gabapent in 300 MG eCW1 (Formerly [facility]) gabapentin 300 MG Oral Capsule Gabapentin 300 MG Gabapentin 300 MG 03/08/2020 12:00:00 AM EST active Gabapent in 300 MG eCW1 ([facility]ly [facility]) 0.05 % 03/08/2020 12:00:00 AM EST ointment [...] EST active Gabapent in 300 MG eCW1 ([facility]ly [facility]) 0.05 % 03/08/2020 12:00:00 AM EST ointment [...] EST active Gabapent in 300 MG eCW1 ([facility]ly [facility]) gabapentin 300 MG Oral Capsule Gabapentin 300 MG Gabapentin 300 MG 03/08/2020 12:00:00 AM EST active Gabapent in 300 MG eCW1 ([facility]ly [facility]) 350 mg 03/08/2020 12:00:00 AM EST tablet [...] EST active Gabapent in 300 MG eCW1 ([facility]ly [facility]) 350 mg 03/08/2020 12:00:00 AM EST tablet [...] Primary prostate adenocarcinoma 22.5 mg, Subcutaneous, Once, [facility] 02/19/20 at 1515, For 1 dose [facility] Primary prostate adenocarcinoma Medication administered onsite [...] Daily Dose: 90 mg Indications: Chronic Pain [facility] Chronic Pain 0.12 % 02/11/2020 12:00:00 [...] WHOLE DO NOT CRUSH BREAK OR CHEW [facility] Catheters (BARD COUDE TIP CATHETER) [facility] [id number] 12:00:00 AM EDT aborted Use as directed. Use as directed 6 times daily [facility] irbesartan 300 MG Oral Tablet irbesartan (AVAPRO) 300 MG tablet irbesartan (AVAPRO) 300 MG tablet 10/15/2018 12:00:00 AM EDT 300 mg Oral aborted Take 300 mg by mouth daily [facility] Losartan Potassium 50 MG Oral Tablet losartan (COZAAR) 50 MG tablet losartan (COZAAR) 50 MG tablet 01/17/2018 12:00:00 AM EDT 50 mg Oral aborted Take 50 mg by mouth daily [facility] atorvastatin 20 MG Oral Tablet atorvastatin (LIPITOR) 20 MG tablet atorvastatin (LIPITOR) 20 MG tablet 01/07/2018 12:00:00 AM EDT 20 mg Oral aborted Take 20 mg by mouth daily [facility] Amlodipine 10 MG Oral Tablet amlodipine (NORVASC) 10 M G tablet amlodipine (NORVASC) 10 MG tablet 09/17/2017 12:00:00 AM EDT 10 mg Oral aborted Take 10 mg by mouth daily [facility] 12 HR Orphenadrine Citrate 100 MG Extend ed Release Oral Tablet orphenadrine (NORFLEX) 100 MG tablet orphenadrine (NORFLEX) 100 MG tablet 09/14/2017 12:00: 00 AM EDT 100 mg Oral aborted Osteoarthr itis of cervical spine, unspecified spinal osteoarthritis complication status Take 1 table t by mouth Two times daily as needed for Muscle spasms for up to 60 doses [facility] Osteoarthritis of cervical spine, unspec ified spinal osteoarthritis complication status Losartan Potassium 25 MG Oral Tablet losartan (COZAAR) 25 MG tablet losartan (COZAAR) 25 MG tablet 25 mg Oral aborted Ta ke 25 mg by mouth daily [facility] Diclofenac Sodium 50 MG Delayed Release Oral Tablet diclofenac (VOLTAREN) 50 MG EC tablet diclofenac (VOLTAREN) 50 MG EC tablet 50 mg Oral aborted Take 50 mg by mouth Two Times Daily [facility] Leuprolide Acetate (LUPRON DEPOT IM) Intramuscular aborted Inject into the muscle every 3 (three) months [facility] Ascorbic Acid (VITAMIN C PO) Oral aborted Take by mouth. [facility] Calcium Carbonate 1500 MG Oral Tablet calcium carbonat e (OS-EDWIN) 600 MG TABS calcium carbonate (OS-EDWIN) 600 MG TABS 600 mg Oral aborted Take 600 mg by mouth daily [facility] Losartan Potassium 25 MG Oral Tablet losartan (COZAAR) 25 MG tablet losartan (COZAAR) 25 MG tablet 25 mg Oral aborted Ta ke 25 mg by mouth [facility] Insurance Providers Payer name Policy type / Coverage type Policy ID Covered republican ID Covered republican's relationship to [place] Policy [place] Plan Information C I [id number] Self [id number] UHC I [id number] Self [id number] UHC I [id number] Self [id number] [employer] COMMUNITY PLAN MCDO [id number] SP [id number] UNHC COMMUNITY PLAN MCDO [id number] SP [id number] UN COMMUNITY PLAN MCDO [id number] SP [id number] MEDICAID [id number] SP [id number] MEDICAID M [id number] Self [id number] C I [id number] Self [id number] [facility] I [id number] Self [id number] [facility] I [id number] Self [id number] MEDICAID M [id number] Self [id number] C I [id number] Self [id number] [facility] I [id number] Self [id number] ANSI-Medicaid [id number] ANSI-Medicaid [id number] ANSI-Medicaid [id number] ANSI-Medicaid [id number] ANSI-Medicaid [id number] ANSI-Medicaid [id number] ANSI-Medicaid [id number] ANSI-Medicaid [id number] ANSI-Medicaid [id number] ANSI-Medicaid [id number] ANSI-Medicaid [id number] ANSI-Medicaid [id number] ANSI-Medicaid [id number] ANSI-Medicaid [id number] ANSI-Medicaid [id number] ANSI-Medicaid [id number] ANSI-Medicaid [id number] ANSI-Medicaid [id number] ANSI-Medicaid [id number] ANSI-Medicaid [id number] ANSI-Medicaid [id number] ANSI-Medicaid [id number] ANSI-Medicaid [id number] ANSI-Medicaid [id number] ANSI-Medicaid [id number] ANSI-Medicaid [id number] ANSI-Medicaid [id number] ANSI-Medicaid [id number] ANSI-Medicaid [id number] ANSI-Medicaid [id number] ANSI-Medicaid [id number] ANSI-Medicaid [id number] ANSI-Medicaid [id number] ANSI-Medicaid [id number] ANSI-Medicaid [id number] ANSI-Medicaid [id number] ANSI-Medicaid [id number] [employer] COMMUNITY PLAN MCDHMO [id number] SP [id number] SELF PAY ONLY UNAVAILABLE SP UNAV AILABLE UNHC COMMUNITY PLAN MCDHMO [id number] SP [id number] UNHC COMMUNITY PLAN MCDHMO [id number] SP [id number] UNHC COMMUNITY PLAN MCDHMO UNK SP UNK [facility]/M[facility] Health Maintenance Organization (HMO) [id number] Self Community Plan - [facility] Commercial [id number] Self UNHC COMMUNITY PLAN MCDHMO [id number] SP [id number] UNHC COMMUNITY PLAN MCDHMO [id number] SP [id number] Unitedhealthcare Medicaid Medicaid [id number] Self [employer]UE [employer] [place] PLAN [id number] SP [id number] UNHC COMMUNITY PLAN MCDHMO [id number] SP [id number] UNHC COMMUNITY PLAN MCDHMO [id number] SP [id number] [facility] O [id number] S [id number] OTHER1 MEDICAID [id number] SP [id number] ANSI-Medicaid [id number] ANSI-Medicaid [id number] ANSI-Medicaid [id number] ANSI-Medicaid [id number] ANSI-Medicaid [id number] ANSI-Medicaid [id number] ANSI-Medicaid [id number] ANSI-Medicaid [id number] ANSI-Medicaid [id number] Problems, Conditions, and Diagnoses Code Display Name Description Problem Type Effective Dates Data Source(s) follow up follow up Diagnosis 02/15/2021 12:00:[address] [facility] on treat on treat Diagnosis 01/18/2021 11:04:47 AM [facility] R10.30 Lower abdominal pain, unspecified Lower abdomina l pain, unspecified Diagnosis 12/14/2020 12:17:10 PM [facility] XRAY XRAY Diagnosis 12/14/2020 12:17:10 PM [facility] Z79.818 assisted (current) use of o ther agents affecting estrogen receptors and estrogen levels assisted (current) use of other agents affecting estrogen receptors and estrogen levels Diagnosis 05/21/2020 09:48:31 AM [facility] Z51.11 Encounter for antineoplastic chemotherap y Encounter for antineoplastic chemotherapy Diagnosis 05/21/2020 09:48:31 AM [facility] 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) Diagnosis 02/19/2020 02:01:01 PM [facility] 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, other site Problem 05/10/2020 12:00:00 AM EST eCW1 ([facility]ly [facility]) 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 Problem 03/08/2020 12:00:00 AM EST eCW1 (Formerly [facility]) 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 Problem 03/08/2020 12:0 0:00 AM EST eCW1 (Formerly [facility]) Surgeries/Procedures Procedure Description Date Indications Data Source(s) BLOOD COUNT COMPLETE AUTO&AUTO DIFRNTL WBC COUNT <td>C BC AND DIFFERENTIAL</td><td>Routine</td><td>01/17/2021 3:52 AM EDT</td><td></td><td> </td> 01/17/2021 03:52:00 AM [facility] MAGNESIUM <td>MAGNESIUM LEVEL</td><td> Routine</td><td>01/17/2021 3:52 AM EDT</td><td></td><td> </td> 01/17/2021 03:52:00 AM [facility] BASIC METABOLIC PANEL CALCIUM TOTAL <td>BASIC METABOLI C PANEL</td><td>Routine</td><td>01/17/2021 3:52 AM EDT</td><td></td><td> </td> 01/17/2021 03:52:00 AM [facility] BLOOD COUNT COMPLETE AUTO&AUTO DIFRNTL WBC COUNT <td>C BC AND DIFFERENTIAL</td><td>Routine</td><td>01/16/2021 3:23 AM EDT</td><td></td><td> </td> 01/16/2021 03:23:00 AM [facility] MAGNESIUM <td>MAGNESIUM LEVEL</td><td> Routine</td><td>01/16/2021 3:23 AM EDT</td><td></td><td> </td> 01/16/2021 03:23:00 AM [facility] BASIC METABOLIC PANEL CALCIUM TOTAL <td>BASIC METABOLI C PANEL</td><td>Routine</td><td>01/16/2021 3:23 AM EDT</td><td></td><td> </td> 01/16/2021 03:23:00 AM [facility] TRANSFUSE RBC (ONCE) <td>TRANSFUSE RBC (ONCE)</td ><td>STAT</td><td>01/15/2021 4:46 PM EDT</td><td></td><td></td> 01/15/2021 04:46:11 PM [facility] BLOOD TYPING ABO <td>TYPE AND SCREEN</td><td> STAT</td><td>01/15/2021 12:15 PM EDT</td><td></td><td> </td> 01/15/2021 12:15:00 PM [facility] CONFIRMATORY TYPE <td>CONFIRMATORY TYPE</td><t d>Routine</td><td>01/15/2021 12:20 AM EDT</td><td></td><td> </td> 01/15/2021 12:20:00 AM [facility] BLOOD COUNT COMPLETE AUTO&AUTO DIFRNTL WBC COUNT <td>C BC AND DIFFERENTIAL</td><td>Routine</td><td>01/15/2021 12:20 AM EDT</td><td></td><td> </td> 01/15/2021 12:20:00 AM [facility] BASIC METABOLIC PANEL CALCIUM TOTAL <td>BASIC METABOLI C PANEL</td><td>Routine</td><td>01/15/2021 12:20 AM EDT</td><td></td><td> </td> 01/15/2021 12:20:00 AM [facility] CULTURE BACTERIAL BLOOD AEROBIC W/ID ISOLATES <td>BLOO D CULTURE</td><td>Routine</td><td>01/14/2021 7:58 PM EDT</td><td></td><td></td> 01/14/2021 07:58:00 PM [facility] CULTURE BACTERIAL BLOOD AEROBIC W/ID ISOLATES <td>BLOO D CULTURE</td><td>Routine</td><td>01/14/2021 12:03 PM EDT</td><td></td><td></td> 01/14/2021 12:03:00 PM [facility] COMMUNITY-ACQUIRED DIARRHEA PANEL <td>COMMUNITY-ACQUIR ED DIARRHEA PANEL</td><td>Routine</td><td>01/14/2021 6:19 AM EDT</td><td></td><td> </td> 01/14/2021 06:19:00 AM [facility] BLOOD COUNT COMPLETE AUTO&AUTO DIFRNTL WBC COUNT <td>C BC AND DIFFERENTIAL</td><td>Routine</td><td>01/14/2021 4:56 AM EDT</td><td></td><td> </td> 01/14/2021 04:56:00 AM [facility] BASIC METABOLIC PANEL CALCIUM TOTAL <td>BASIC METABOLI C PANEL</td><td>Routine</td><td>01/14/2021 4:56 AM EDT</td><td></td><td> </td> 01/14/2021 04:56:00 AM [facility] CULTURE BCT ISOL&PRSMPTV ID ISOLATE EA URINE <td>URINE CATHETER CULT</td><td>Routine</td><td>01/13/2021 4:46 PM EDT</td><td></td><td> </td> 01/13/2021 04:46:00 PM [facility] CULTURE BCT ISOL&PRSMPTV ID ISOLATE EA URINE <td>URINE SUPRAPUBIC CUL</td><td>Routine</td><td>01/13/2021 4:46 PM EDT</td><td></td><td></td> 01/13/2021 04:46:00 PM [facility] CULTURE BCT ISOL&PRSMPTV ID ISOLATE EA URINE <td>URINE SUPRAPUBIC CUL</td><td>Routine</td><td>01/13/2021 2:15 PM EDT</td><td></td><td></td> 01/13/2021 02:15:00 PM [facility] IR NEPHROSTOMY INSERTION CHANGE <td>IR NEPHROSTOMY INS ERTION CHANGE</td><td>Routine</td><td>01/13/2021 1:54 PM EDT</td><td></td><td> </td> 01/13/2021 01:54:50 PM [facility] IRON <td>TOTAL FE BINDING CAPACIT Y</td><td>Routine</td><td>01/13/2021 10:32 AM EDT</td><td></td><td> </td> 01/13/2021 10:32:00 AM [facility] LACTATE DEHYDROGENASE LDH <td>LACTATE DEHYDROGENASE</td><td>Routine</td><td>01/13/2021 10:32 AM EDT</td><td></td><td> </td> 01/13/2021 10:32:00 AM [facility] HAPTOGLOBIN QUANTITATIVE <td>HAPTOGLOBIN</td><td>Rout ine</td><td>01/13/2021 10:32 AM EDT</td><td></td><td> </td> 01/13/2021 10:32:00 AM [facility] FOLIC ACID SERUM <td>FOLATE</td><td>Routine</ td><td>01/13/2021 10:32 AM EDT</td><td></td><td> </td> 01/13/2021 10:32:00 AM [facility] FERRITIN <td>FERRITIN LEVEL</td><td>R outine</td><td>01/13/2021 10:32 AM EDT</td><td></td><td> </td> 01/13/2021 10:32:00 AM [facility] CYANOCOBALAMIN VITAMIN B-12 <td>VITAMIN B12</td><td>Ro utine</td><td>01/13/2021 10:32 AM EDT</td><td></td><td> </td> 01/13/2021 10:32:00 AM [facility] POTASSIUM SERUM PLASMA/WHOLE BLOOD <td>POTASSIUM</td><td>Routine</td><td>01/13/2021 6:22 AM EDT</td><td></td><td> </td> 01/13/2021 06:22:00 AM [facility] PHOSPHORUS INORGANIC <td>PHOSPHORUS LEVEL</td><td >Routine</td><td>01/13/2021 6:22 AM EDT</td><td></td><td> </td> 01/13/2021 06:22:00 AM [facility] MAGNESIUM <td>MAGNESIUM LEVEL</td><td> Routine</td><td>01/13/2021 6:22 AM EDT</td><td></td><td> </td> 01/13/2021 06:22:00 AM [facility] BLOOD COUNT COMPLETE AUTO&AUTO DIFRNTL WBC COUNT <td>C BC AND DIFFERENTIAL</td><td>Routine</td><td>01/13/2021 1:42 AM EDT</td><td></td><td> </td> 01/13/2021 01:42:00 AM [facility] CALCIUM IONIZED <td>CALCIUM, IONIZED</td><td >Routine</td><td>01/13/2021 1:42 AM EDT</td><td></td><td> </td> 01/13/2021 01:42:00 AM [facility] BASIC METABOLIC PANEL CALCIUM TOTAL <td>BASIC METABOLI C PANEL</td><td>Routine</td><td>01/13/2021 1:42 AM EDT</td><td></td><td> </td> 01/13/2021 01:42:00 AM [facility] CT ABDOMEN & PELVIS W/O CONTRAST MATERIAL <td>CT ABDOM EN PELVIS WITHOUT CONTRAST [id number]</td><td>Routine</td><td>01/12/2021 7:36 PM EDT</td><td></td><td> </td> 01/12/2021 07:36:43 PM [facility] HEPATITIS C ANTIBODY <td>HEPATITIS C ANTIBODY</td ><td>Routine</td><td>01/12/2021 5:41 PM EDT</td><td></td><td> </td> 01/12/2021 05:41:00 PM [facility] PROTHROMBIN TIME <td>PROTIME INR</td><td>Rout ine</td><td>01/12/2021 5:41 PM EDT</td><td></td><td> </td> 01/12/2021 05:41:00 PM [facility] CALCIUM IONIZED <td>CALCIUM, IONIZED</td><td >Routine</td><td>01/12/2021 5:41 PM EDT</td><td></td><td> </td> 01/12/2021 05:41:00 PM T [facility] THER RAD SIMULAJ-AIDED FIELD SETTING COMPLEX <td>CT SI MULATION AT RAD ONC (IN OFFICE)</td><td>Routine</td><td>01/12/2021 2:09 PM EDT</td><td> Prostate cancer</td><td></td> 01/12/2021 02:09:00 PM EDT Prostate cancer Ups [facility] Prostate cancer US RETROPERITONEAL REAL TIME W/IMAGE COMPLETE <td>US R ENAL OR AORTA COMPLETE [id number]</td><td>Routine</td><td>01/12/2021 10:59 AM EDT</td><td></td><td> </td> 01/12/2021 10:59:00 AM [facility] MRI BRAIN BRAIN STEM W/O &W/CONTRAST MATERIAL <td>MR B RAIN WITH AND WITHOUT CONTRAST [id number]</td><td>Routine</td><td>01/12/2021 9:53 AM EDT</td><td></td><td> </td> 01/12/2021 09:53:52 AM [facility] CALCIUM IONIZED <td>CALCIUM, IONIZED</td><td >Routine</td><td>01/12/2021 8:24 AM EDT</td><td></td><td> </td> 01/12/2021 08:24:00 AM [facility] COVID-19 PCR <td>COVID-19 PCR</td><td>Rou yandel</td><td>01/12/2021 5:13 AM EDT</td><td></td><td> </td> 01/12/2021 05:13:00 AM [facility] BLOOD COUNT COMPLETE AUTOMATED <td>CBC</td><td>Routine </td><td>01/12/2021 1:11 AM EDT</td><td></td><td> </td> 01/12/2021 01:11:00 AM [facility] PHOSPHORUS INORGANIC <td>PHOSPHORUS LEVEL</td><td >Routine</td><td>01/12/2021 1:11 AM EDT</td><td></td><td> </td> 01/12/2021 01:11:00 AM [facility] PARATHORMONE <td>PTH, INTACT</td><td>Rout ine</td><td>01/12/2021 1:11 AM EDT</td><td></td><td> </td> 01/12/2021 01:11:00 AM [facility] MAGNESIUM <td>MAGNESIUM LEVEL</td><td> Routine</td><td>01/12/2021 1:11 AM EDT</td><td></td><td> </td> 01/12/2021 01:11:00 AM [facility] CALCIUM IONIZED <td>CALCIUM, IONIZED</td><td >Routine</td><td>01/12/2021 1:11 AM EDT</td><td></td><td> </td> 01/12/2021 01:11:00 AM [facility] COMPREHENSIVE METABOLIC PANEL <td>COMPREHENSIVE METABO LIC PANEL</td><td>Routine</td><td>01/12/2021 1:11 AM EDT</td><td></td><td> </td> 01/12/2021 01:11:00 AM [facility] BASIC METABOLIC PANEL CALCIUM TOTAL <td>BASIC METABOLI C PANEL</td><td>Routine</td><td>01/11/2021 6:34 PM EDT</td><td></td><td> </td> 01/11/2021 06:34:00 PM [facility] XR CHEST FRONTAL ONLY [id number] <td>XR CHEST FRONTAL ONLY [id number]</td><td>Routine</td><td>01/11/2021 6:07 PM EDT</td><td></td><td> </td> 01/11/2021 06:07:00 PM [facility] CULTURE BACTERIAL BLOOD AEROBIC W/ID ISOLATES <td>BLOO D CULTURE</td><td>Routine</td><td>01/11/2021 11:50 AM EDT</td><td></td><td> </td> 01/11/2021 11:50:00 AM [facility] CALCIUM IONIZED <td>CALCIUM, IONIZED</td><td >Routine</td><td>01/11/2021 11:40 AM EDT</td><td></td><td> </td> 01/11/2021 11:40:00 AM [facility] EKG 12-LEAD - CMAXX REPORT <td>EKG 12-LEAD - CMAXX REPORT</td><td></td><td>01/11/2021 11:35 AM EDT</td><td></td><td></td> 01/11/2021 11:35:37 AM [facility] EKG 12-LEAD - CMAXX REPORT <td>EKG 12-LEAD - CMAXX REPORT</td><td></td><td>01/11/2021 11:35 AM EDT</td><td></td><td></td> 01/11/2021 11:35:37 AM EDT [facility] EKG 12-LEAD <td>EKG 12-LEAD</td><td>STAT </td><td>01/11/2021 11:35 AM EDT</td><td> Prostate cancer metastatic to bone</td><td> </td> 01/11/2021 11:35:37 AM EDT Prostate cancer metastatic to [facility] Prostate cancer metastatic to bone CULTURE BACTERIAL BLOOD AEROBIC W/ID ISOLATES <td>BLOO D CULTURE</td><td>Routine</td><td>01/11/2021 11:28 AM EDT</td><td> Prostate cancer metastatic to bone</td><td> </td> 01/11/2021 11:28:00 AM EDT Prostate cancer metastatic to [facility] Prostate cancer metastatic to bone LACTATE <td>LACTIC ACID LEVEL, PLASM A</td><td>STAT</td><td>01/11/2021 11:28 AM EDT</td><td> Prostate cancer metastatic to bone</td><td> </td> 01/11/2021 11:28:00 AM EDT Prostate cancer metastatic to [facility] Prostate cancer metastatic to bone AMMONIA <td>AMMONIA LEVEL</td><td>ST AT</td><td>01/11/2021 11:28 AM EDT</td><td> Secondary malignant neoplasm of bone</td><td> </td> 01/11/2021 11:28:00 AM EDT Secondary malignant neoplasm of bone [facility] Secondary malignant neoplasm of bone PROCALCITONIN (PCT) <td>PROCALCITONIN</td><td>Ro utine</td><td>01/11/2021 11:24 AM EDT</td><td> Prostate cancer metastatic to bone</td><td> </td> 01/11/2021 11:24:00 AM EDT Prostate cancer metastatic to bone [facility] Prostate cancer metastatic to bone URNLS DIP STICK/TABLET REAGENT AUTO MICROSCOPY <td>URI NALYSIS WITH MICROSCOPIC</td><td>STAT</td><td>01/11/2021 11:24 AM EDT</td><td> Prostate cancer metastatic to bone</td><td> </td> 01/11/2021 11:24:00 AM EDT Prostate cancer metastatic to bone [facility] Prostate cancer metastatic to bone CULTURE BCT ISOL&PRSMPTV ID ISOLATE EA URINE <td>URINE CULTURE</td><td>Routine</td><td>01/11/2021 11:24 AM EDT</td><td> Prostate cancer metastatic to bone</td><td> </td> 01/11/2021 11:24:00 AM EDT Prostate cancer metastatic to bone [facility] Prostate cancer metastatic to bone PHOSPHORUS INORGANIC <td>PHOSPHORUS LEVEL</td><td >Routine</td><td>01/11/2021 11:24 AM EDT</td><td></td><td> </td> 01/11/2021 11:24:00 AM [facility] MAGNESIUM <td>MAGNESIUM LEVEL</td><td> Routine</td><td>01/11/2021 11:24 AM EDT</td><td></td><td> </td> 01/11/2021 11:24:00 AM [facility] BLOOD COUNT COMPLETE AUTO&AUTO DIFRNTL WBC COUNT <td>C BC AND DIFFERENTIAL</td><td>Routine</td><td>01/11/2021 10:45 AM EDT</td><td> Malignant tumor of prostate 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</td><td> </td> 01/11/2021 10:45:00 AM EDT Prostate cancer metastatic to [place] malignant neoplasm of boneMalignant tumor of [facility] 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 Malignant tumor of prostate PROSTATE SPECIFIC ANTIGEN TOTAL <td>PSA, TOTAL AND FREE</td><td>Routine</td><td>01/11/2021 10:45 AM EDT</td><td> Primary prostate cancer with metastasis from prostate to other site</td><td> </td> 01/11/2021 10:45:00 AM EDT Primary prostate cancer with metastasis from prostate to other site [facility] Primary prostate cancer with metastasis from prostate to other site COMPREHENSIVE METABOLIC PANEL <td>COMPREHENSIVE METABO LIC PANEL</td><td>STAT</td><td>01/11/2021 10:45 AM EDT</td><td> Malignant tumor of prostate 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</td><td> </td> 01/11/2021 10:45:00 AM EDT Prostate cancer metastatic to [place] malignant neoplasm of boneMalignant tumor of [facility] 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 Malignant tumor of prostate XR ABDOMEN AP SUPINE AND AP ERECT 62193 <td>XR ABDOMEN AP SUPINE AND AP ERECT 48888</td><td>STAT</td><td>12/14/2020 12:49 PM EDT</td><td> Lower abdominal pain</td><td> </td> 12/14/2020 12:49:04 PM EDT Lower abdominal pain [facility] Lower abdominal pain BLOOD COUNT COMPLETE AUTO&AUTO DIFRNTL WBC COUNT <td>C BC AND DIFFERENTIAL</td><td>Routine</td><td>12/14/2020 10:40 AM EDT</td><td> Prostate cancer metastatic to bone</td><td> </td> 12/14/2020 10:40:00 AM EDT Prostate cancer metastatic to bone [facility] Prostate cancer metastatic to bone PROSTATE SPECIFIC ANTIGEN TOTAL <td>PSA</td><td>Routin e</td><td>12/14/2020 10:40 AM EDT</td><td> Prostate cancer metastatic to bone</td><td> </td> 12/14/2020 10:40:00 AM EDT Prostate cancer metastatic to [facility] Prostate cancer metastatic to bone COMPREHENSIVE METABOLIC PANEL <td>COMPREHENSIVE METABO LIC PANEL</td><td>STAT</td><td>12/14/2020 10:40 AM EDT</td><td> Prostate cancer metastatic to bone</td><td> </td> 12/14/2020 10:40:00 AM EDT Prostate cancer metastatic to [facility] Prostate cancer metastatic to bone BLOOD COUNT COMPLETE AUTO&AUTO DIFRNTL WBC COUNT <td>C BC AND DIFFERENTIAL</td><td>Routine</td><td>11/23/2020 9:06 AM EDT</td><td> Prostate cancer metastatic to bone</td><td> </td> 11/23/2020 09:06:00 AM EDT Prostate cancer metastatic to [facility] Prostate cancer metastatic to bone PROSTATE SPECIFIC ANTIGEN TOTAL <td>PSA</td><td>Routin e</td><td>11/23/2020 9:06 AM EDT</td><td> Prostate cancer metastatic to bone</td><td> </td> 11/23/2020 09:06:00 AM EDT Prostate cancer metastatic to [facility] Prostate cancer metastatic to bone COMPREHENSIVE METABOLIC PANEL <td>COMPREHENSIVE METABO LIC PANEL</td><td>STAT</td><td>11/23/2020 9:06 AM EDT</td><td> Prostate cancer metastatic to bone</td><td> </td> 11/23/2020 09:06:00 AM EDT Prostate cancer metastatic to [facility] Prostate cancer metastatic to bone BLOOD COUNT COMPLETE AUTO&AUTO DIFRNTL WBC COUNT <td>C BC AND DIFFERENTIAL</td><td>STAT</td><td>11/16/2020 3:15 PM EDT</td><td> Prostate cancer metastatic to bone</td><td> </td> 11/16/2020 03:15:00 PM EDT Prostate cancer metastatic to bone [facility] Prostate cancer metastatic to bone PROSTATE SPECIFIC ANTIGEN TOTAL <td>PSA, TOTAL AND FREE</td><td>STAT</td><td>11/16/2020 3:15 PM EDT</td><td> Prostate cancer metastatic to bone</td><td> </td> 11/16/2020 03:15:00 PM EDT Prostate cancer metastatic to bone [facility] Prostate cancer metastatic to bone COMPREHENSIVE METABOLIC PANEL <td>COMPREHENSIVE METABO LIC PANEL</td><td>STAT</td><td>11/16/2020 3:15 PM EDT</td><td> Prostate cancer metastatic to bone</td><td> </td> 11/16/2020 03:15:00 PM EDT Prostate cancer metastatic to [facility] Prostate cancer metastatic to bone LAB RESULTS (OUTSIDE/HISTORICAL) <td>LAB RESULTS (OUTSIDE/HISTORICAL)</td><td></td><td>11/08/2020 10:31 AM EDT</td><td></td><td></td> 11/08/2020 10:31:00 AM EDT [facility] LAB RESULTS (OUTSIDE/HISTORICAL) <td>LAB RESULTS (OUTSIDE/HISTORICAL)</td><td></td><td>11/08/2020 10:30 AM EDT</td><td></td><td></td> 11/08/2020 10:30:00 AM EDT [facility] RADIOLOGY REPORT <td>RADIOLOGY REPORT</td><td ></td><td>11/08/2020 10:27 AM EDT</td><td></td><td></td> 11/08/2020 10:27:00 AM EDT [facility] RADIOLOGY REPORT <td>RADIOLOGY REPORT</td><td ></td><td>11/08/2020 10:26 AM EDT</td><td></td><td></td> 11/08/2020 10:26:00 AM EDT [facility] BONE &/JOINT IMAGING WHOLE BODY <td>NM BONE SCAN IMAGI NG WHOLE BODY [id number]</td><td>Routine</td><td>10/05/2020 12:59 PM EDT</td><td> Prostate cancer metastatic to bone</td><td> </td> 10/05/2020 12:59:00 PM EDT Prostate cancer metastatic to bone [facility] Prostate cancer metastatic to bone BLOOD COUNT COMPLETE AUTO&AUTO DIFRNTL WBC COUNT <td>C BC AND DIFFERENTIAL</td><td>STAT</td><td>08/20/2020 10:48 AM EDT</td><td> Prostate cancer metastatic to bone</td><td> </td> 08/20/2020 10:48:00 AM EDT Prostate cancer metastatic to bone [facility] Prostate cancer metastatic to bone PROSTATE SPECIFIC ANTIGEN TOTAL <td>PSA, TOTAL AND FREE</td><td>STAT</td><td>08/20/2020 10:48 AM EDT</td><td> Prostate cancer metastatic to bone</td><td> </td> 08/20/2020 10:48:00 AM EDT Prostate cancer metastatic to bone [facility] Prostate cancer metastatic to bone COMPREHENSIVE METABOLIC PANEL <td>COMPREHENSIVE METABO LIC PANEL</td><td>STAT</td><td>08/20/2020 10:48 AM EDT</td><td> Prostate cancer metastatic to bone</td><td> </td> 08/20/2020 10:48:00 AM EDT Prostate cancer metastatic to bone [facility] Prostate cancer metastatic to bone BLOOD COUNT COMPLETE AUTO&AUTO DIFRNTL WBC COUNT <td>C BC AND DIFFERENTIAL</td><td>STAT</td><td>05/21/2020 10:07 AM EST</td><td> Prostate cancer metastatic to bone</td><td> </td> 05/21/2020 10:07:00 AM EST Prostate cancer metastatic to bone [facility] Prostate cancer metastatic to bone PROSTATE SPECIFIC ANTIGEN TOTAL <td>PSA, TOTAL AND FREE</td><td>STAT</td><td>05/21/2020 10:07 AM EST</td><td> Prostate cancer metastatic to bone</td><td> </td> 05/21/2020 10:07:00 AM EST Prostate cancer metastatic to [facility] Prostate cancer metastatic to bone COMPREHENSIVE METABOLIC PANEL <td>COMPREHENSIVE METABO LIC PANEL</td><td>STAT</td><td>05/21/2020 10:07 AM EST</td><td> Prostate cancer metastatic to bone</td><td> </td> 05/21/2020 10:07:00 AM EST Prostate cancer metastatic to bone [facility] Prostate cancer metastatic to bone BLOOD COUNT COMPLETE AUTO&AUTO DIFRNTL WBC COUNT <td>C BC AND DIFFERENTIAL</td><td>STAT</td><td>02/19/2020 2:57 PM EDT</td><td> Primary prostate adenocarcinoma</td><td> </td> 02/19/2020 02:57:00 PM EDT Primary prostate adenocarcinoma [facility] pitid Primary prostate adenocarcinoma PROSTATE SPECIFIC ANTIGEN TOTAL <td>PSA, TOTAL AND FREE</td><td>STAT</td><td>02/19/2020 2:57 PM EDT</td><td> Primary prostate adenocarcinoma</td><td> </td> 02/19/2020 02:57:00 PM EDT Primary prostate adenocarcinoma [facility] Primary prostate adenocarcinoma COMPREHENSIVE METABOLIC PANEL <td>COMPREHENSIVE METABO LIC PANEL</td><td>STAT</td><td>02/19/2020 2:57 PM EDT</td><td> Primary prostate adenocarcinoma</td><td> </td> 02/19/2020 02:57:00 PM EDT Primary prostate adenocarcinoma [facility] Primary prostate adenocarcinoma Results ID Date Data Source [id number] 02/16/2021 11:27:12 AM EDT [facility] Name Value Range Interpretation Code Description Data Belinda rce(s) Supporting Document(s) Progress Note [facility] JHPLAs8rEoIFWrCu00/YGZtgEZRxk1ZlDWkoJRd9VVywRANmC0WdZPF4oD2sIDV0UVfZEjSlBzOjCFXt lbm [file] VmW6OjIZTiYvCF4OYCf= ID Date Data Source [id number] 02/11/2021 02:49:37 PM EDT [facility] Name Value Range Interpretation Code Description Data Belinda rce(s) Supporting Document(s) Progress Note [facility] LFCKKs9cKkACAbDg49/YZIbhMLLcx1ZkTHlqXBe5PTpoAZPfF2FqJLS6lD8iRGK8QDxTNiYpYdGtHOU0 lbm [file] ICAgICAgICAgICAgICAgICAgICAgICAgICAgICAgICAgICAgICAgICAgICAgICAgICAgICAgICAgICAg ICAgICAgICAgICAgICAgICAgICAgICAgICAgICAgIC ANCiAgICAgICAgICAgICAgICAgICAgICAgICAgICAgICAgICAgICAgICAgICAgICAgICAgICAgICAgIC AgICAgICAgICAgICAgICAgICAgICAgICAgICAgICAgICAgICAgICAgICANCiAgICAgICAgICAgICAgIC AgICAgICAgICAgICAgICAgICAgICAgICAgICAgICAg ICAgICAgICAgICAgICAgICAgICAgICAgICAgICAgICAgICAgICAgICAgICAgICAgICAgICANCiAgICAg ICAgICAgICAgICAgICAgICAgICAgICAgICAgICAgICAgICAgICAgICAgICAgICAgICAgICAgICAgICAg ICAgICAgICAgICAgICAgICAgICAgICAgICAgICAgIC AgICANCiAgICAgICAgICAgICAgICAgICAgICAgICAgICAgICAgICAgICAgICAgICAgICAgICAgICAgIC AgICAgICAgICAgICAgICAgICAgICAgICAgICAgICAgICAgICAgICAgICAgICANCiAgICAgICAgICAgIC AgICAgICAgICAgICAgICAgICAgICAgICAgICAgICAg ICAgICAgICAgICAgICAgICAgICAgICAgICAgICAgICAgICAgICAgICAgICAgICAgICAgICAgICANCiAg ICAgICAgICAgICAgICAgICAgICAgICAgICAgICAgICAgICAgICAgICAgICAgICAgICAgICAgICAgICAg ICAgICAgICAgICAgICAgICAgICAgICAgICAgICAgIC AgICAgICANCiAgICAgICAgICAgICAgICAgICAgICAgICAgICAgICAgICAgICAgICAgICAgICAgICAgIC AgICAgICAgICAgICAgICAgICAgICAgICAgICAgICAgICAgICAgICAgICAgICAgICANCiAgICAgICAgIC AgICAgICAgICAgICAgICAgICAgICAgICAgICAgICAg ICAgICAgICAgICAgICAgICAgICAgICAgICAgICAgICAgICAgICAgICAgICAgICAgICAgICAgICAgICAN CiAgICAgICAgICAgICAgICAgICAgICAgICAgICAgICAgICAgICAgICAgICAgICAgICAgICAgICAgICAg ICAgICAgICAgICAgICAgICAgICAgICAgICAgICAgIC AgICAgICAgICANCjw/kWUuD4rbtWEjczY3S1skKy0WZn6VTA5uc8WkPGOtGTelqxTcChrAGfAkIGHnRk fARch7XQhiQJ8GkKVeJ6TmZ5CpCWrqAL5XBEFwFSSswNHhYJYzCPAtXrW1CWTyXNlxNQ6BeUObDGijBI IyULTfVJ0JBWUhX226hmPzEZ5RTg5HUaHhPA8pmj6X WUjlHVLwSmsPKcl9THorBM8ZsQWuyKRtAGWcPXOHQhIsQ1pzj6TtOmJiLJZLPZuaTY2Qz2IjcIJwDJw+ Zt0TLK1rt8KtGGupVFLqVY1cbx3RBFqRDnIdQ8WjgOlqRRHqe6xlESTrXX8sgQJtVZO3WOJrgKINTK8n PG3rcimuNNPdWOFcINWoHC1dAYMvURKdYdEcJURFIO 4EKWLvETGedJGbANCsXKEKOA3NCJtrEXJ8EVOvwgDasBMfKCygGV4TKUNyxsPrUVohMNXMXIk+Pg0KZW 7zg0BvCNxvTDHiKO5mls6CWXwHMcGlT8Q8lQLfN1A5YCmyIz9ZJMEqUNEjJQklMIFCTFqrFS4SGW1yot U1UY1QuGQlGZJpONAprJVrYOf2S78cmPWoKAufQX4Q ICA+Immanuel+Qp1LEKZcTKKmXSSoScDzOQZYWyBuJ5ErI2YAl4WpJ5PiDT07rPprvlDkQBpoVP0IPM9qPJHb LZAYTS3KaIOvlC7kgcQgYWIaMXTOFqMoO99luMXtCZIfRIB0QFSgMb9GZORtU6AkxwXqoJfkuiNsTNTu JKKQQL2JEMpwvgZxnTAxeLunHY50oAnzRJ6CMh1NGl HzYY6qpl2DvRTjAr6NMADzFp2OZNUeYGHyZUSpGBT2LNAjPmWjMHouZRKdZSGnMQQ4HRRxHVIwLN3MAd AlTWRlQWp4IzEiFUGnHGAnux5GPCUpFHEzJSS0ANIvUGGpENZvTZwxZIPfOXPtZCX3DCGwOZYbNT2ZKh BxWJMrTUBjSWmvMFMmSRVzjs1IVJWmLQViWwAiRgLg FBNpFGExGThaTNWrVXEiDSekBGLaFEEbIN9RBhGnBBMyRFO7VinoZEUyRWGpth0EMTOkZYBgBcw4PsQl CNLjCVZrBZfgJVWzTNC0ETM5XNJdUDRoHS4TFrSdYKMfXNXgMWfoOHQpEMUnef7BQYEhZTMjFUT5CSUl RKTaQRGyUAmpWKOrDKK4KpS3GBLeXKSvZM0LMxTbZS MfHRN7GCeuYBGzULDoer3CYMGgFIQmSoC6HFUjVIZaKBIwCFzsQGSyKRI3LYS7ELHiBKRjIV8JSwJpRW EwBEj7SBGgVHMoSLFccw4NWGUcWGBsQfz3ZPBgLKBoXMUfRHwqSUMcGBT4HkntLIQlMRLdIB0VUwIoLD RxFWt7LqGvJHHmHSVfgq1SZZGoMEPmFUWyJITaMVRc WOSrOBc3iuNsvZZkMOl9EI4AW9QmjkGvDvTZMx7Gy917IERyUJUaMk3ZA8kfUl0vAFTwAZTIYb3YNMf1 VvOyYBCcOFDqGlRlWSDbPvhjOAHqPQJ3MAQ3J5FhPoK+BCh0KkEuZ4PhJpOhPFE9AdPzXMJmMsFgGKft DLNnAuPsLx8iENEKDe8+XYzkePHvsIqyIPXPKyA4GPK1MIenQWPRBy6U ID Date Data Source [id number] 02/11/2021 02:49:32 PM EDT [facility] Name Value Range Interpretation Code Description Data Belinda rce(s) Supporting Document(s) Progress Note [facility] GWZFEn5xJdJNLjLl87/VUYnbWPSkc3UvCBsdAQa5TMnmAKFeV7ObEPQ5bB8qBES7OGmOMjHbBaWzJRQ6 lbm [file] Cg== ID Date Data Source [id number] 02/08/2021 05:05:32 PM EDT [facility] Name Value Range Interpretation Code Description Data Belinda rce(s) Supporting Document(s) Progress Note [facility] BKRSWx3bCbVKOfMb81/USJthIYGpf2ByNXcvUTo5MThhLUPeU5HoGON3vS6aSCL0EMkCIgCvKjUmJTJr lbm [file] XSANCj4+TJcrcBCweUtwVXALKsQ8IJj0JFlqNXHOIv5H ID Date Data Source [id number] 02/04/2021 02:19:00 PM EDT [facility] Name Value Range Interpretation Code Description Data Belinda rce(s) Supporting Document(s) SARS coronavirus 2 RNA [Presence] in Res piratory specimen by [facility] with probe detection NEGATIVE [facility] This lab was ordered by [facility] a nd reported by [facility]. ID Date Data Source [id number] 02/01/2021 05:07:16 PM EDT [facility] 9.5Serum levels of PSA should not be int erpreted as absolute evidence of the presence or absence of Cancer. Results obtained with different methods cannot be used interchangeably. This method is manufactured by [employer] and is an electrochemiluminesence immunoassay. Name Value Range Interpretation Code Description Data Belinda rce(s) Supporting Document(s) Leukocytes [#/volume] in Blood by Automated count 5.2 10*3/uL 4-10 [facility] Erythrocytes [#/volume] in Blood by Automated count 3.13 10*6/uL 4.6- 6.1 L [facility] Hemoglobin [Mass/volume] in Blood 9.0 g/dL 13.5-18 L [facility] Hematocrit [Volume Fraction] of Blood by Automated count 27.0 % 4 1-53 L [facility] Erythrocyte mean corpuscular volume [Entitic volume] by Auto mated count 86.2 fL 80-96 [facility] Erythrocyte mean corpuscular hemoglobin [Entitic mass] by Automated count 28.8 pg 27-33 [facility] Erythrocyte mean corpuscular hemoglobin concentration [Mass/volume] by Automated count 33.4 g/dL [facility].0-[facility] width [Ratio] by Automated count 18.1 % 11.5-14.5 H [facility] Platelets [#/volume] in Blood by Automated count 341 10*3/uL 150-400 [facility] Differential cell count method - Blood [facility] Neutrophils/100 leukocytes in Blood by Automated count 73 % [facility] Lymphocytes/100 leukocytes in Blood by Automated count 15 % [facility] Monocytes/100 leukocytes in Blood by Automated count 10 % [facility] Eosinophils/100 leukocytes in Blood by Automated count 1 % [facility] Basophils/100 leukocytes in Blood by Automated count 1 % [facility] Neutrophils [#/volume] in Blood by Automated count 3.84 10*3/uL 1.8-7 .0 [facility] Lymphocytes [#/volume] in Blood by Automated count 0.76 10*3/uL 1.2-4 .0 L [facility] Monocytes [#/volume] in Blood by Automated count 0.52 10*3/uL 0-0.8 [facility] Eosinophils [#/volume] in Blood by Automated count 0.03 10*3/uL 0-0.5 [facility] Basophils [#/volume] in Blood by Automated count 0.03 10*3/uL 0-0.2 [facility] Nucleated erythrocytes/100 leukocytes [Ratio] in Blood by Automated count 0 /100{WBCs} 0-0 [facility] ID Date Data Source [id number] 02/01/2021 05:56:04 PM EDT [facility] 9.5Serum levels of PSA should not be int erpreted as absolute evidence of the presence or absence of Cancer. Results obtained with different methods cannot be used interchangeably. This method is manufactured by [employer] and is an electrochemiluminesence immunoassay. Name Value Range Interpretation Code Description Data Belinda rce(s) Supporting Document(s) Prostate Specific Ag Free [Mass/volume] in Serum or Plasma 1.5 ng/mL [facility] 15.2 ID Date Data Source [id number] 02/01/2021 06:14:44 PM T [facility] 9.5Serum levels of PSA should not be int erpreted as absolute evidence of the presence or absence of Cancer. Results obtained with different methods cannot be used interchangeably. This method is manufactured by [employer] and is an electrochemiluminesence immunoassay. Name Value Range Interpretation Code Description Data Belinda rce(s) Supporting Document(s) Albumin [Mass/volume] in Serum or Plasma by Bromocresol green (BCG) dye binding method 4.0 g/dL 3.5-5.2 [facility] Bilirubin.total [Mass/volume] in Serum or Plasma 0.3 mg/dL <1.2 [facility] Calcium [Mass/volume] in Serum or Plasma 13.3 mg/dL 8.6-10.0 [facility] Results called to and read back by ON C ALL DR GEE AT [id number] /[id number] Chloride [Moles/volume] in Serum or Plasma 89 mmol/L 98-107 L [facility] Creatinine [Mass/volume] in Serum or Plasma 0.90 mg/dL 0.70-1.20 [facility] Glucose [Mass/volume] in Serum or Plasma 112 mg/dL 70-140 [facility] Alkaline phosphatase [Enzymatic activity/volume] in Serum or Plasma 156 U/L 40-129 H [facility] Potassium [Moles/volume] in Serum or Plasma 3.3 mmol/L 3.4-5.1 L [facility] Protein [Mass/volume] in Serum or Plasma 7.4 g/dL 6.4-8.3 [facility] Sodium [Moles/volume] in Serum or Plasma 131 mmol/L 136-145 L [facility] Aspartate aminotransferase [Enzymatic activity/volume] in Serum or Plasma 30 U/L <40 [facility] Urea nitrogen [Mass/volume] in Serum or Plasma 10 mg/dL 8-23 [facility] Osmolality of Serum or Plasma by calculation 272 mosm/kg 275-300 L [facility] Creatinine/Urea nitrogen [Mass Ratio] in Serum or Plasma 11 [facility] Bicarbonate [Moles/volume] in Serum 27 mmol/L -29 [facility] Alanine aminotransferase [Enzymatic activity/volume] in Seru m or Plasma 11 U/L <41 [facility] Anion gap 3 in Serum or Plasma 15 mmol/L 8-15 [facility] Glomerular filtration rate/1.73 sq M pre dicted among non-blacks [Volume Rate/Area] in Serum or Plasma by Creatinine-based formula (MDRD) >6 0 [facility] Glomerular filtration rate/1.73 sq M pre dicted among blacks [Volume Rate/Area] in Serum or Plasma by Creatinine-based formula (MDRD) >60 [facility] ID Date Data Source [id number] 01/25/2021 11:43:33 AM EDT [facility] Name Value Range Interpretation Code Description Data Belinda rce(s) Supporting Document(s) Progress Note [facility] GAYPAu9hGaIKQfJr23/NPLldEWYxm0TgJOueAAy0TSggBJJiU8NhVEB1tI8uFCE4BUnANxKeHmUkHDL9 [facility] [file] PARTS REPRESENTATIVE/2PNckiuOGDoqGFFANSy9fWKIrYuPZ+lZoksHS0P [file] [facility]/[id number]2bUtyfo7kBkpUZwiScLlWp+siYbp3VnrEZt5zn7xmbgQ [file] UhLnApNdPZspLFQRWe9H ID Date Data Source [id number] 01/25/2021 11:43:28 AM EDT [facility] Name Value Range Interpretation Code Description Data Belinda rce(s) Supporting Document(s) Progress Note [facility] CDSPUz4eBiLOYxHt44/HDVivHQRds3ZjKFajNHk4CRbqNRHwR2MrLJZ9zF4mBEU1QItHLtOrCkMlECW4 lbm [file] dGE+DQogICAgICAgICAgICAgICAgICAgICAgICAgICAgICAgICAgICAgICAgICAgICAgICAgICAgICAg ICAgICAgICAgICAgICAgICAgICAgICAgICAgICAgIC AgICAgICAgICAgICAgDQogICAgICAgICAgICAgICAgICAgICAgICAgICAgICAgICAgICAgICAgICAgIC AgICAgICAgICAgICAgICAgICAgICAgICAgICAgICAgICAgICAgICAgICAgICAgICAgICAgICAgDQogIC AgICAgICAgICAgICAgICAgICAgICAgICAgICAgICAg ICAgICAgICAgICAgICAgICAgICAgICAgICAgICAgICAgICAgICAgICAgICAgICAgICAgICAgICAgICAg ICAgICAgDQogICAgICAgICAgICAgICAgICAgICAgICAgICAgICAgICAgICAgICAgICAgICAgICAgICAg ICAgICAgICAgICAgICAgICAgICAgICAgICAgICAgIC AgICAgICAgICAgICAgICAgDQogICAgICAgICAgICAgICAgICAgICAgICAgICAgICAgICAgICAgICAgIC AgICAgICAgICAgICAgICAgICAgICAgICAgICAgICAgICAgICAgICAgICAgICAgICAgICAgICAgICAgDQ ogICAgICAgICAgICAgICAgICAgICAgICAgICAgICAg ICAgICAgICAgICAgICAgICAgICAgICAgICAgICAgICAgICAgICAgICAgICAgICAgICAgICAgICAgICAg ICAgICAgICAgDQogICAgICAgICAgICAgICAgICAgICAgICAgICAgICAgICAgICAgICAgICAgICAgICAg ICAgICAgICAgICAgICAgICAgICAgICAgICAgICAgIC AgICAgICAgICAgICAgICAgICAgDQogICAgICAgICAgICAgICAgICAgICAgICAgICAgICAgICAgICAgIC AgICAgICAgICAgICAgICAgICAgICAgICAgICAgICAgICAgICAgICAgICAgICAgICAgICAgICAgICAgIC AgDQogICAgICAgICAgICAgICAgICAgICAgICAgICAg ICAgICAgICAgICAgICAgICAgICAgICAgICAgICAgICAgICAgICAgICAgICAgICAgICAgICAgICAgICAg ICAgICAgICAgICAgDQogICAgICAgICAgICAgICAgICAgICAgICAgICAgICAgICAgICAgICAgICAgICAg ICAgICAgICAgICAgICAgICAgICAgICAgICAgICAgIC RaTOIuLGGbNCUkNPTlAZPtCTGuBVBgLRi6T6ksOECeITYhUH1nQOc3Ts9+QPyGImXkYCQ4ukYupE8KQG 3rr6OjQZvjJGFwf1BhFMb7BY6KHOCnAOpoEJ2DNNhvbt7LNCTaQWDtyEDSq3ymLeYjRJB0PQQmMezmSI 8YYFJaN2tmtgWhWCWbIRFBQAqaCOFAYXGeHAPvGeKu HlVySIQzMZRyNGQQQZN7KZKtGsWcDZFfIVUnCiVqHBDFIR1LYsVjX7DjkF64QVsGOk6+DQplbmRvYmoN ItZcUVPkm0UrAUf8WC7OKBCrBsrhs0BuVOKeIBNSMBopSS5TXRC3UEVcYDQiVi8UYISeS499ioXsUE8Q Cx5UFdKkHY1har9IWUWhIWQqIjuPCcl7WIipHE0XeH DrFJnNgr0qcoWtdhOZr6OszuKknFMJLQ1yXNWNHIystCHxXTZkEN3VUOT1YPjrZLQsKnEhRTDlGLdsJI AJKBjBPdIgR9Fci3BpQfX6QSZkGqQtRUxoVRExHKjzHO56mTusAN3TKINdCNHeEB30DNOpPVKuOg0QFy 1IYmVjOX5yhv8XMnSoEK4rcl9QFVuNDoFhR3M7eNYo K5Aata17FZ0CsRA6aSGrPH8FqV5lUO8Uj2OxNCMvAtIzBIFsFSDuANVsCEWlCmSiHK2LIXBzUzBjvKUy WWFiXJE6NWGiMoK6WBLzCB5LSOAnNDX7VT9ASK4OAuivQ8QUKXuezUwrHkNJGOU/QUNUSVZJVFkmTVJf P99WH4HCJRgCQperVOaFIxiiMj5xDPm+Xy7EFZ0tr8 NyETz7JdLlXQ8ual8YLGpFNbGxX1J3jKPgP9U2KQydZu7DLBLrMMDxIqhdJJLSELtbOU8QOC8zgrC6LZ 8GjVMhSJOjKAOxaJAjZPb4P58wuZBwAOucMK2FQMQ+Immanuel+Jt8GKMPnZYKoKFWgIeSkAAXMWjOpJ1KdB5 DWw9QoW2YvPS15vEutkmNjOMutNT0WNH2fMOCbRFGX YY9QgOXlbN9nvaZ0VUKvBIBYLmSdU72wlBYjDLVcMBH2NNEhLs4GALTkO7AbpvNgtDqyfdGvGZNwYOJO BB9VJBfnkfGsiCLpeBkrUK31vBamNS2GSb6PWaSgGG6ymq6SqTOdNh0QILX7Vj2GJMFuBSKxVKBmBST0 PXEnPaFpLQmaPQQwVTObMSZ2PMCnVVCnCA0NShFfWC JgQBW7AyEnQVXcFEBcul9FUNQxBTM0QdX2MsKyLTSlCJHwXKpaOODnCZFnUEB5HTGuIEOeIX1CLiBwGL UpLLY3SJDvTLIxNMFuhu5GRXTgAFE0EsP1KBFsIPBqZQRlVWfeWLChUPP4FYX0ONGnEYWiVS4ZUvRaPB BiPKflMZExYLVfPSCgdk2CWVZaWHYeDOC8SbZzTFNw CRZkIIyrLAKkAGAcVWV6AGBgQQKlTE4BBxFgCSLeRPUeWoTaKLYuTIAvfp9TZPQlVIStMOA9RXKwFGMy BIPnVPnxXSIjJYS4GrnwMKVkODUzAJ2WZrWmRPCaKPw3UPMsSMAgXTQtzj5KEUYiSTSpEDOiLbPlKOQx DQEtNWirICMkBYDxWBGaWTKlKETxLZ6TEsLrBDRsPr Z4JNihQSPfDIVzix1EBKChTTTjXGIlQjUnLLKcTLHpIKodGQGwURY5RxSmGCQaZBMrKF9UIqPqTFFgEz a7EKtoIJMgUBQtbe6YUYReTMYaIrl1YFHuWZMrSRUhHHpiNKPlDUU2PgO6AUDuXRPxTW3OOjPfAQQeUy x2FFTpLGXxPJLwbj9BUURkGFObMPK3FLXzDUQjXHOz MItlSSFvNFHzBKC1IMWjFTNjLM4SFyZaDQRmUgVuVNYoFPWqXXIvwr8UBGOkOIWdGKH0LCTxGMDeJVJz APafWQSlUKMaSEh9LSEdUPKcNG9QCqMhWFOuIRJqCNizPMXoTEPowr3DTQMkYYW4WuGeCOAzPRMhLVIm JAbmKUFvLEZgDaO9JWLsCZSeQC3CKwEzICNfFZM5LY OmNHHjRSQsxy6CZBLdNXR0Sfz6UHMqWVIiJWNmRByjZZXrVVJuLTM0TZKxGQJjJX8OIjPtVGLzFNWdPY WwETYtZQYxww5AQINeHUU1HRQ8EFZmCEMvAXGbWXwkKWRzGCB8FiP0RHDiJGTaUG7ZWfTzLCZoKIA4LA DuVYMnUXFvom9HKZEyFXM5YFg3XiIgLOPsTQDhHQmc OONbXQW4JqD3MLGiETSvOB8EQwClJVYtAFs7JSIbRBLeEZXhcy8OCWQsOUZ3HjrnLuEpGATxCNBlKUg8 laIaeYFjCWb5TB1LP9IuabZrEAZIZv7Pm822QMYiLBCjAy9RP8bqOq7mJXUiJROCBz1FPFa6CWPeNPWh DlQaJSf3SVV5X1MdIaUpHVNeSFA2UCB9CbX+IDxlMm BcGDCcUoW6IUu2MzbiJCXpBULgBnMtRMU8JKc7VE0eJRNGYo7+OBcjkCDrwVjdDCRUItA2TZdaHJfjHW VPRg0K ID Date Data Source [id number] 01/20/2021 07:50:37 AM EDT [facility] Name Value Range Interpretation Code Description Data Belinda rce(s) Supporting Document(s) Progress Note [facility] CRNZKz8tZiTDKeVp50/HWNfuWZLxt5HoKOhqNEj3NVakZQKsM8JtPWX2pW6dEJP5TUxORtClZrGnYBDb lbm EvLriHRiUnYHPxDesYGxGwYXosDpzicUEmPC9FkOB9XNWlM48pTZYkGUUzY5RvBTT7FfU+Na3IGBPzmJ UpDV4OQccR9Aqgd6oQTl9viL/SUKXG5sJI4+YWRWIntAqwmKQ7jY2yx4R9Ey0EFbaN9HK3VqVtI5/h8S lTu69angjTYL8c+d1x4jJunoqi//1YABcQCTL1U/3W U5yM5+TIoyWULVNhfb2yKsI2ZZn+1mlZDD2N+/lRp5fg1ClFWyEgxjhDy4azOtYUFXiVOnckh/jzIpzN MnSkaCWBmvE9D/yHb7qLJGlSDv6p//SUXv2RUbnwx05DDMQvTpV+GL8SGrZxJEgE4DtcBAtbu8K52vsE PlIBu19FC5m8ANwfAiZPbkgO8kNrg9aAELN3pAeqYi WJEwtzixfH69LZWLDCdV+Kv1buY3kkR9jWGjDpOw4lybC4fnxaks2N9hcDIH1UEg0CFKiDldT2Zvt4Jx 4Lc5XfGneUAr3x7ETRoctxN7LmS3yBCz1Qi2WTw1rNKBYAs+GAw8yK5S7fYJ6YJ8aluQ8Qb/F4otal59 /hvoGfiRPWZFXzDSpC46OnVbObtPwW3cnM6OHdNySh zDxy0iKmTn6epmYRObPULZTN5tmvR2P/[place]+LwwnSR0igNBYLWAUuzEWnKPnu+WgECWZgsGkoFyvpEII [file] ID Date Data Source [id number] 01/17/2021 05:06:14 PM EDT [facility] Name Value Range Interpretation Code Description Data Belinda e(s) Supporting Document(s) Discharge Summary [facility] LNEURa4pAbHVMaFt78/ZMHaeSOVlp0GsGXpeHFw0YJiiTWDuS7AsBDJ4qA0bWZI8AUjBWeWtBtYhQADi lbm [file] 7hU+A20w3pRjSL2ntH5FwuEf1Zhvq03flKz7pzt/TCLs/mH4sqjzNXy8GMBr0Bf/5wGDP/J++ShQzT 28d6IA1CLQvzay7nIOd79N2OQrla5S77vnQLeylCilVsF7IiNcGNLpHxcujqGNv52rpyVAQZcmwEpxiP 4kF9HCVR8KlayPVsPrTqioP2/t2kmRA3gZc0Uz1321 x7bAt+tyi4OTGzrwlqZW4jZXQcltuUco26LhLxmvxgthRzjFGQvL0yckbB3f0pAb3zFESewbeIARlBlY yFC8SgnoLrIwuoGuGDYroOeUAAkGbTAY8EkJcu4AohNgORorCy+TRbln9+/tmd0KcM13mKZaBBQgirDP Y1V0ty2+ulxSDu9YGakaHsTopA5u9diDkUPUp2+maria guadalupe [file] ICAgICAgICAgICAgICAgICAgICAgICAgICAgICAgIC AgICAgICAgICAgICAgICAgICAgICAgICAgICAgICAgICAgICAgDQogICAgICAgICAgICAgICAgICAgIC AgICAgICAgICAgICAgICAgICAgICAgICAgICAgICAgICAgICAgICAgICAgICAgICAgICAgICAgICAgIC AgICAgICAgICAgICAgICAgICAgDQogICAgICAgICAg ICAgICAgICAgICAgICAgICAgICAgICAgICAgICAgICAgICAgICAgICAgICAgICAgICAgICAgICAgICAg ICAgICAgICAgICAgICAgICAgICAgICAgICAgICAgDQogICAgICAgICAgICAgICAgICAgICAgICAgICAg ICAgICAgICAgICAgICAgICAgICAgICAgICAgICAgIC AgICAgICAgICAgICAgICAgICAgICAgICAgICAgICAgICAgICAgICAgDQogICAgICAgICAgICAgICAgIC AgICAgICAgICAgICAgICAgICAgICAgICAgICAgICAgICAgICAgICAgICAgICAgICAgICAgICAgICAgIC AgICAgICAgICAgICAgICAgICAgICAgDQogICAgICAg ICAgICAgICAgICAgICAgICAgICAgICAgICAgICAgICAgICAgICAgICAgICAgICAgICAgICAgICAgICAg ICAgICAgICAgICAgICAgICAgICAgICAgICAgICAgICAgDQogICAgICAgICAgICAgICAgICAgICAgICAg ICAgICAgICAgICAgICAgICAgICAgICAgICAgICAgIC AgICAgICAgICAgICAgICAgICAgICAgICAgICAgICAgICAgICAgICAgICAgDQogICAgICAgICAgICAgIC AgICAgICAgICAgICAgICAgICAgICAgICAgICAgICAgICAgICAgICAgICAgICAgICAgICAgICAgICAgIC AgICAgICAgICAgICAgICAgICAgICAgICAgDQogICAg ICAgICAgICAgICAgICAgICAgICAgICAgICAgICAgICAgICAgICAgICAgICAgICAgICAgICAgICAgICAg ICAgICAgICAgICAgICAgICAgICAgICAgICAgICAgICAgICAgDQogICAgICAgICAgICAgICAgICAgICAg ICAgICAgICAgICAgICAgICAgICAgICAgICAgICAgIC YuIFQmRWRgTJRhOQHxWAAjVLMuFVCjHPKlFNHoPHYyAACuYKHuJIVwUCZgBOXfSIs5I4mkXJAvGJTtSU 4mJVl3Ou0+RVjTGwNjXAL2wwSdlI9HEM5rx2DeLXxuHWNpk6CbLDp8JQ6PSANvXNwiVB1CRAstgl4AUU VoKVSibABEj9woJzOuGLV0OFPjXzvoPL0LTBJpN2ve bkArEYSeUQEGKAmiNABNNVrqRAXFRPEuHWAjJsPxPeKyKUIoLNRsZVTBPPX1CKOuXfGfZMPyIKCaJT6I NQRvB311zvApWG4QZn1YVsJzOY8oar4ALwhdZJJbWirAIta9SXajOE0BbGCpdUB9MCBkKRUHHwWtT9rs b6LiEMKnNNXRUQxcQA0Ju0FtaJRdXGf+Fd5RCF9ej3 LbXDp7BSDrNH7wgg6JLRgLQtMuF5GwyFtwLARwn6YnFLWoRSLFkH8zMUF8TVX0DAIzjZPbXYComRnwGA FFJPFbuIA7IfSkQaNqSaKdJBG3DkKiRT3fGFdeLO5OHAN0QTofOOOlNNJmE8nMPgSfDKM7YvXoiRoeKI 6CFwYgY1ZjglInoKOwVQDpZXFWDm9+DQplbmRvYmoN OhYgYRTli0YnYDv2VF6FNULdJQwtAO0PQLSjmU0zFVkdGA0HHjQpSxRvTNJMYgUtZ19woSCaVVo2B7Qi YmVkZGVkRmlsZXMgPDwvTmFtZXMgWyBdDQogID4+ID4+SLqvXQ0GFHtkznZhUTWwQs9IZFQhCRXhNU2z YNSwKGPkT5C0mTxwQCMZRpTyV2zrpzavGA9eJUEtW6 08mLzywyYiONT2WWLxDa6ACAEtLZG8IAUvzWFfNagrDEJIMPdzFU6GtCOjMZX1wW0oGWwtHGWqWMSvJ9 dKJcXknIyfRT27lTlchiIflZRbCKu+Mr3HIU6jc2JqFXi2pdRvHSamPMNqKQcaBHXoDNBkXXNkTTY2GN U2QKBPZvRnKBKiABQrMLmwFRXtKDUrdk9KDVKzUQK1 NHmwIOCsDAJyNTBgEPmePXOxTAGqPiDuIUAcWZPnOO7SLqMxOSCzGAPkSWnuIUFdKEPafd3RIHStNSDr RFK8RqZjYCOlCQGtSYtdSNFiREI3GOwqUHRqQTLfMV5URnLvHUSiPMc1KKYrSPIiFGPfpw8FFKZiCVVw FWz6ByXqZFRqTDVbAIdoCIWiNWE2EiY9IBGoXJAkXX 6EMfLuWOKvMNJ3GrjaDYDcMZOtkz8AFCCtZSYyNjh5BtIkOOFqVILcWTtrGLOpNWS4BPr4PPAqUZOhJG 5KAcKvWMEoVsAuDKGlIZYwUAEwev7FILRiMOZaPiGdXCKjIOIySHItWRvnHCOpEVB9FOMfSRQmWDSmNM 9TYiFtJLNhIpNpPAcmUGLfMPUytt1CZCHaDUWeXRX6 YAHeBAGyJBTnCPlgSSGtBEB3GKm4BSWdKOQkKH0AIpDtMAVdUgl6ZdqbXYEdYLAjta6PTLAmCKIqIOoa YwYtEDQtBVUmABscRRQxRLEqSazzDYFkGZUdUU4NZrTlHZOxJsR4RMGmBHHeGFHnte4ZPVQfIVHoJJX5 CzDjJIWsJEUpJXskXAStQJNxHFAvXYZkVAIjJE8BFa ZrDHSoGjNpPtJqUSBoSFRlrf5TDUKiDDKrFlEzNlIwXBLkYDReXSnoVQMgGPOiRjmxMLDcVPXmIJ1WJf KnMIUsCdR0DpppUJCaZUKvgz8KEUGtETAmVva8QfQqIAErYSUdGIafPCZaMQP5HeAdSFHgPWNhVS8MFg WvXTOnRyC5HwYdQVDkQCXqhx3NNRBnBHMtNMHzKaUj VVLxUTAoJZrdAPDsOQC9JCemLSSeQPSiOT8VYjDlWLAePKPaWJUjSXBdFFIyrk5DOFZwQRN1EAMuVvHd UHQoFLQeOJuzFTOlRJWhHhDkLIUmLIJuNH2JUcFyYEWnGDC5AUctXKIkGLJpjv8IHXEuMTE9ZWKrCkBj HCIbVGGiWHfrLJOhZIHfFNG8RKJkAQUwQT9JSjKeLU KjCLR4SenpLFNuJTCexq1LHEZfQDM3MnRlNqBgSIUnEGLhFPj4mwVzmRRqBOq8VW7NH8QpcvVnQWTTKq 7Ym531JFNeCSAmIp4RQ7whYj8wIFYcZVJMQt0HCUx4HCKzT0S8IsEnNQZ9APKrOnhcHPUpIEA2XxBcZL Q2OGU+WVuxFVJjAPo4DAXoHBeoB9U1TVM1EMK4SKba FyD9HMP7BS3iPMQSTm6+MLiswTZaaLtcOAHPRePsHwdmOJiqTQSQHv9U ID Date Data Source [id number] 01/17/2021 09:26:35 AM EDT [facility] Name Value Range Interpretation Code Description Data Belinda rce(s) Supporting Document(s) Consultation [facility] OYPGPc3bYnSAOgQs73/ZZXqwESAtb2GnQOugHMi4JQunKCPwS7WoREX9mD7hEBE9FShIMfVbCoYnOEXe lbm [file] 5fQYNWFj7+MBbfgCOtxCplCWCGWxW1OHGnORhuAARZIr9X ID Date Data Source [id number] 01/17/2021 04:06:10 AM EDT [facility] Name Value Range Interpretation Code Description Data Belinda rce(s) Supporting Document(s) Leukocytes [#/volume] in Blood by Automated count 6.5 10*3/uL 4-10 [facility] Erythrocytes [#/volume] in Blood by Automated count 3.07 10*6/uL 4.6- 6.1 L [facility] Hemoglobin [Mass/volume] in Blood 8.8 g/dL 13.5-18 L [facility] Hematocrit [Volume Fraction] of Blood by Automated count 27.2 % 4 1-53 L [facility] Erythrocyte mean corpuscular volume [Entitic volume] by Auto mated count 88.6 fL 80-96 [facility] Erythrocyte mean corpuscular hemoglobin [Entitic mass] by Automated count 28.8 pg 27-33 [facility] Erythrocyte mean corpuscular hemoglobin concentration [Mass/volume] [facility] 32.5 g/[facility] [Ratio] by Automated count 15.6 % 11.5-14.5 H [facility] Platelets [#/volume] in Blood by Automated count 395 10*3/uL 150-400 [facility] Differential cell count method - Blood [facility] Neutrophils/100 leukocytes in Blood by Automated count 77 % [facility] Lymphocytes/100 leukocytes in Blood by Automated count 15 % [facility] Monocytes/100 leukocytes in Blood by Automated count 6 % [facility] Eosinophils/100 leukocytes in Blood by Automated count 1 % [facility] Basophils/100 leukocytes in Blood by Automated count 1 % [facility] Neutrophils [#/volume] in Blood by Automated count 5.03 10*3/uL 1.8-7 .0 [facility] Lymphocytes [#/volume] in Blood by Automated count 0.98 10*3/uL 1.2-4 .0 L [facility] Monocytes [#/volume] in Blood by Automated count 0.37 10*3/uL 0-0.8 [facility] Eosinophils [#/volume] in Blood by Automated count 0.07 10*3/uL 0-0.5 [facility] Basophils [#/volume] in Blood by Automated count 0.03 10*3/uL 0-0.2 [facility] Nucleated erythrocytes/100 leukocytes [Ratio] in Blood by Automated count 0 /100{WBCs} 0-0 [facility] ID Date Data Source [id number] 01/17/2021 04:23:35 AM [facility] Name Value Range Interpretation Code Description Data Belinda rce(s) Supporting Document(s) Bicarbonate [Moles/volume] in Serum 21 mmol/L 22-29 L [facility] Chloride [Moles/volume] in Serum or Plasma 110 mmol/L 98-107 [facility] Creatinine [Mass/volume] in Serum or Plasma 1.16 mg/dL 0.70-1.20 [facility] Glucose [Mass/volume] in Serum or Plasma 101 mg/dL 70-140 [facility] Potassium [Moles/volume] in Serum or Plasma 3.6 mmol/L 3.4-5.1 [facility] Sodium [Moles/volume] in Serum or Plasma 143 mmol/L 136-145 [facility] Urea nitrogen [Mass/volume] in Serum or Plasma 7 mg/dL 8-23 L [facility] Anion gap 3 in Serum or Plasma 12 mmol/L 8-15 [facility] Osmolality of Serum or Plasma by calculation 294 mosm/kg 275-300 [facility] Creatinine/Urea nitrogen [Mass Ratio] in Serum or Plasma 6 [facility] Calcium [Mass/volume] in Serum or Plasma 9.3 mg/dL 8.6-10.0 [facility] Glomerular filtration rate/1.73 sq M pre dicted among non-blacks [Volume Rate/Area] in Serum or Plasma by Creatinine-based formula (MDRD) 67 mL/min/1.73m2 >60 [facility] Glomerular filtration rate/1.73 sq M pre dicted among blacks [Volume Rate/Area] in Serum or Plasma by Creatinine-based formula (MDRD) 77 mL/min/1.73m2 >60 [facility] ID Date Data Source [id number] 01/17/2021 04:23:35 AM [facility] Name Value Range Interpretation Code Description Data Belinda rce(s) Supporting Document(s) Magnesium [Mass/volume] in Serum or Plasma 1.5 mg/dL 1.6-2.6 L [facility] ID Date Data Source [id number] 01/16/2021 03:50:36 AM [facility] Name Value Range Interpretation Code Description Data Belinda rce(s) Supporting Document(s) Leukocytes [#/volume] in Blood by Automated count 8.8 10*3/uL 4-10 [facility] Erythrocytes [#/volume] in Blood by Automated count 3.02 10*6/uL 4.6- 6.1 L [facility] Hemoglobin [Mass/volume] in Blood 9.0 g/dL 13.5-18 L [facility] Hematocrit [Volume Fraction] of Blood by Automated count 26.7 % 4 1-53 L [facility] Erythrocyte mean corpuscular volume [Entitic volume] by Auto mated count 88.3 fL 80-96 [facility] Erythrocyte mean corpuscular hemoglobin [Entitic mass] by Automated count 29.7 pg 27-33 [facility] Erythrocyte mean corpuscular hemoglobin concentration [Mass/volume] by Automated count 33.6 g/dL 32.0-[facility] width [Ratio] by Automated count 16.3 % 11.5-14.5 H [facility] Platelets [#/volume] in Blood by Automated count 424 10*3/uL 150-400 H [facility] Differential cell count method - Blood [facility] Neutrophils/100 leukocytes in Blood by Automated count 79 % [facility] Lymphocytes/100 leukocytes in Blood by Automated count 14 % [facility] Monocytes/100 leukocytes in Blood by Automated count 6 % [facility] Eosinophils/100 leukocytes in Blood by Automated count 1 % [facility] Basophils/100 leukocytes in Blood by Automated count 0 % [facility] Neutrophils [#/volume] in Blood by Automated count 6.98 10*3/uL 1.8-7 .0 [facility] Lymphocytes [#/volume] in Blood by Automated count 1.22 10*3/uL 1.2-4 .0 [facility] Monocytes [#/volume] in Blood by Automated count 0.48 10*3/uL 0-0.8 [facility] Eosinophils [#/volume] in Blood by Automated count 0.05 10*3/uL 0-0.5 [facility] Basophils [#/volume] in Blood by Automated count 0.03 10*3/uL 0-0.2 [facility] Nucleated erythrocytes/100 leukocytes [Ratio] in Blood by Automated count 0 /100{WBCs} 0-0 [facility] ID Date Data Source [id number] 01/16/2021 03:56:45 AM EDT [facility] Name Value Range Interpretation Code Description Data Belinda rce(s) Supporting Document(s) Bicarbonate [Moles/volume] in Serum 20 mmol/L 22-29 L [facility] Chloride [Moles/volume] in Serum or Plasma 107 mmol/L 98-107 [facility] Creatinine [Mass/volume] in Serum or Plasma 1.10 mg/dL 0.70-1.20 [facility] Glucose [Mass/volume] in Serum or Plasma 104 mg/dL 70-140 [facility] Potassium [Moles/volume] in Serum or Plasma 4.3 mmol/L 3.4-5.1 [facility] Sodium [Moles/volume] in Serum or Plasma 140 mmol/L 136-145 [facility] Urea nitrogen [Mass/volume] in Serum or Plasma 8 mg/dL 8-23 [facility] Anion gap 3 in Serum or Plasma 13 mmol/L 8-15 [facility] Osmolality of Serum or Plasma by calculation 289 mosm/kg 275-300 [facility] Creatinine/Urea nitrogen [Mass Ratio] in Serum or Plasma 7 [facility] Calcium [Mass/volume] in Serum or Plasma 9.6 mg/dL 8.6-10.0 [facility] Glomerular filtration rate/1.73 sq M pre dicted among non-blacks [Volume Rate/Area] in Serum or Plasma by Creatinine-based formula (MDRD) 71 mL/min/1.73m2 >60 [facility] Glomerular filtration rate/1.73 sq M pre dicted among blacks [Volume Rate/Area] in Serum or Plasma by Creatinine-based formula (MDRD) 82 mL/min/1.73m2 >60 [facility] ID Date Data Source [id number] 01/16/2021 03:56:45 AM [facility] Name Value Range Interpretation Code Description Data Belinda rce(s) Supporting Document(s) Magnesium [Mass/volume] in Serum or Plasma 1.8 mg/dL 1.6-2.6 [facility] ID Date Data Source [id number] 01/15/2021 07:55:44 PM [facility] Name Value Range Interpretation Code Description Data Belinda rce(s) Supporting Document(s) Leukocytes [#/volume] in Blood by Automated count 11.5 10*3/uL 4-10 H [facility] Erythrocytes [#/volume] in Blood by Automated count 3.31 10*6/uL 4.6- 6.1 L [facility] Hemoglobin [Mass/volume] in Blood 9.7 g/dL 13.5-18 L [facility] Hematocrit [Volume Fraction] of Blood by Automated count 29.4 % 4 1-53 L [facility] Erythrocyte mean corpuscular volume [Entitic volume] by Auto mated count 88.9 fL 80-96 [facility] Erythrocyte mean corpuscular hemoglobin [Entitic mass] by Automated count 29.2 pg 27-33 [facility] Erythrocyte mean corpuscular hemoglobin concentration [Mass/volume] by Automated count 32.9 g/dL 32.0-36.0 [facility] al Erythrocyte distribution width [Ratio] by Automated count 15.8 % 11.5-14.5 H [facility] Platelets [#/volume] in Blood by Automated count 472 10*3/uL 150-400 H [facility] ID Date Data Source [id number] 01/15/2021 01:31:56 PM [facility] Name Value Range Interpretation Code Description Data Belinda rce(s) Supporting Document(s) Calcium.ionized [Moles/volume] in Arterial blood 1.46 mmol/L 1.13-1.3 2 H [facility] ID Date Data Source [id number] 01/15/2021 01:48:30 PM [facility] Name Value Range Interpretation Code Description Data Belinda rce(s) Supporting Document(s) Albumin [Mass/volume] in Serum or Plasma by Bromocresol green (BCG) dye binding method 2.6 g/dL 3.5-5.2 L [facility] al ID Date Data Source [id number] 01/15/2021 01:48:30 PM [facility] Name Value Range Interpretation Code Description Data Belinda rce(s) Supporting Document(s) Phosphate [Mass/volume] in Serum or Plasma 2.1 mg/dL 2.5-4.5 L [facility] ID Date Data Source [id number] 01/18/2021 04:15:00 PM [facility] CYTOPATHOLOGY REPORTName: KIERSTEN LEDEZMAMRN: [id number] Number: [id number] Date: 01/15/2021 12:45Received Date: 01/17/2021 11:31Physician(s): VIN TORRES MD POIESZ, BERNARD J, MD Specimen(s) ReceivedA: URINE, CATHETERIZEDClinical History:Evaluate for malignancy. History of malignancy per requisition. [id number]. DiagnosisURINE, CATHETERIZED: NEGATIVE FOR HIGH-GRADE UROTHELIAL CARCINOMAComment/pf/calReviewing [employer]: BARBIE Brown (ASCP)Danae Christian MDElectronically Signed By Emeli Jones M.D. 01/18/2021 16:15:46The attending pathologist named above attests that he/she has personallyreviewed the relevant preparation(s) for the specimen(s) and rendered thefinal diagnosis. Microscopic DescriptionThe specimen is composed of few benign urothelial cells, abundantneutrophils, debris and blood./pf Gross Qwadeocbpxr43 ml clear pale-yellow fluid received: 1 Thin-layer Pap stained slideprepared by filter preparation. This report may include one or more immunohistochemical stain results thatuse analyte specific reagents. All positive and negative controls havebeen reviewed by the attending pathologist and are satisfactory. The testswere developed and their performance ch aracteristics determined by [facility] Pathololgy department. They have not been cleared or approved by Andrew Food and Drug Administration. The FDA has determined that suchclearance or approval is not necessary. Name Value Range Interpretation Code Description Data Belinda rce(s) Supporting Document(s) ID Date Data Source [id number] 01/15/2021 12:16:32 PM [facility] Name Value Range Interpretation Code Description Data [facility](s) Supporting Document(s) [employer] GPTGSk2gSmCKMvEu67/GBBqnQXNfq4VuVEreBMo9SIcaTMOkK5FnCVT7gK2wLQI3LNqGPaVuCmCcALZ1 m [file] E8HmArZPFyP9CfOHXkPFX8ZjFpPhH9DqJaSZ3UWg3SIwS3UJP4aDEwYq4EETD3XkwMPuWjOS9FTNp= ID Date Data Source [id number] 01/17/2021 07:02:21 AM [facility] Name Value Range Interpretation Code Description Data Belinda rce(s) Supporting Document(s) ABO and Rh group [Type] in Blood [facility] Blood group antibody screen [Presence] in Serum or Plasma [facility] Performed at [facility], Tiffany Turcios, [id number] [place] [id number] ID Date Data Source [id number] 01/15/2021 12:52:10 PM [facility] Value Range Interpretation Code Description Data Belinda rce(s) Supporting Document(s) ABO and Rh group [Type] in Blood [facility] Blood bank comment [facility] ID Date Data Source [id number] 01/15/2021 12:50:29 AM EDT [facility] Value Range Interpretation Code Description Data Belinda rce(s) Supporting Document(s) Leukocytes [#/volume] in Blood by Automated count 7.5 10*3/uL 4-10 [facility] Erythrocytes [#/volume] in Blood by Automated count 2.41 10*6/uL 4.6- 6.1 L [facility] Hemoglobin [Mass/volume] in Blood 6.9 g/dL 13.5-18 L [facility] Hematocrit [Volume Fraction] of Blood by Automated count 21.2 % 4 1-53 L [facility] Erythrocyte mean corpuscular volume [Entitic volume] by Auto mated count 88.0 fL 80-96 [facility] Erythrocyte mean corpuscular hemoglobin [Entitic mass] by Automated count 28.8 pg 27-33 [facility] Erythrocyte mean corpuscular hemoglobin concentration [Mass/volume] by Automated count 32.8 g/dL 32.0-36.0 [facility] width [Ratio] by Automated count 16.4 % 11.5-14.5 H [facility] Platelets [#/volume] in Blood by Automated count 380 10*3/uL 150-400 [facility] Differential cell count method - Blood [facility] Neutrophils/100 leukocytes in Blood by Automated count 83 % [facility] Lymphocytes/100 leukocytes in Blood by Automated count 11 % [facility] Monocytes/100 leukocytes in Blood by Automated count 6 % [facility] Eosinophils/100 leukocytes in Blood by Automated count 0 % [facility] Basophils/100 leukocytes in Blood by Automated count 0 % [facility] Neutrophils [#/volume] in Blood by Automated count 6.22 10*3/uL 1.8-7 .0 [facility] Lymphocytes [#/volume] in Blood by Automated count 0.80 10*3/uL 1.2-4 .0 L [facility] Monocytes [#/volume] in Blood by Automated count 0.45 10*3/uL 0-0.8 [facility] Eosinophils [#/volume] in Blood by Automated count 0.02 10*3/uL 0-0.5 [facility] Basophils [#/volume] in Blood by Automated count 0.03 10*3/uL 0-0.2 [facility] Nucleated erythrocytes/100 leukocytes [Ratio] in Blood by Automated count 0 /100{WBCs} 0-0 [facility] ID Date Data Source [id number] 01/15/2021 01:05:17 AM EDT [facility] Name Value Range Interpretation Code Description Data Belinda rce(s) Supporting Document(s) Bicarbonate [Moles/volume] in Serum 21 mmol/L 22-29 L [facility] Chloride [Moles/volume] in Serum or Plasma 106 mmol/L 98-107 [facility] Creatinine [Mass/volume] in Serum or Plasma 0.97 mg/dL 0.70-1.20 [facility] Glucose [Mass/volume] in Serum or Plasma 114 mg/dL 70-140 [facility] Potassium [Moles/volume] in Serum or Plasma 3.3 mmol/L 3.4-5.1 L [facility] Sodium [Moles/volume] in Serum or Plasma 138 mmol/L 136-145 [facility] Urea nitrogen [Mass/volume] in Serum or Plasma 8 mg/dL 8-23 [facility] Anion gap 3 in Serum or Plasma 11 mmol/L 8-15 [facility] Osmolality of Serum or Plasma by calculation 285 mosm/kg 275-300 [facility] Creatinine/Urea nitrogen [Mass Ratio] in Serum or Plasma 8 [facility] Calcium [Mass/volume] in Serum or Plasma 10.0 mg/dL 8.6-10.0 [facility] Glomerular filtration rate/1.73 sq M pre dicted among non-blacks [Volume Rate/Area] in Serum or Plasma by Creatinine-based formula (MDRD) 88 mL/min/1.73m2 >60 [facility] Glomerular filtration rate/1.73 sq M pre dicted among blacks [Volume Rate/Area] in Serum or Plasma by Creatinine-based formula (MDRD) >60 [facility] ID Date Data Source [id number] 01/19/2021 10:45:08 AM EDT [facility] Service Cmnt XXX-Imp : L WRISTMicroorgan ism XXX Cult : No growth 5 days Name Value Range Interpretation Code Description Data Belinda rce(s) Supporting Document(s) ID Date Data Source [id number] 01/14/2021 03:34:40 PM EDT [facility] CT ABDOMEN PELVIS WITHOUT CONTRAST [id number] FINAL RESULTInterpreted by:Vivek Lang, MDPROCEDURE INFORMATION: Exam: CT Abdomen And Pelvis [...] e(s) Supporting Document(s) ID Date Data Source [id number] 01/14/2021 01:33:03 PM EDT [facility] Name Value Range Interpretation Code Description Data Belinda rce(s) Supporting Document(s) Progress Note [facility] TTWUVp3rYiYZQjOg71/FGMozWKWkh2KbXHxwKNz3IPygNONpE5LiXTA6oS7jJFN4ETbOOeRxQkPfONP9 lbm [file] DQo+Ut2Rc2MvysW1ibPkVGacPUO5RZ1INYOJQ0JVCv== ID Date Data Source [id number] 01/19/2021 10:45:08 AM EDT [facility] Service Cmnt XXX-Imp : RACMicroorganism XXX Cult : No growth 5 days Name Value Range Interpretation Code Description Data Belinda rce(s) Supporting Document(s) ID Date Data Source [id number] 01/22/2021 03:06:13 PM EDT [facility] Name Value Range Interpretation Code Description Data Belinda rce(s) Supporting Document(s) Pyridoxine [Mass/volume] in Serum or Plasma 3.0 ug/L 5.3-46.7 L [facility] (NOTE)Verified by repeat analysisThi s test was developed and its performance characteristicsdetermined by [employer]. It has not been cleared or approvedby the Food and Drug Administration.Performed At: [address] [id number] Sanjai MD Ph:[phone] ID Date Data Source [id number] 01/14/2021 09:58:14 AM EDT [facility] Name Value Range Interpretation Code Description Data Belinda rce(s) Supporting Document(s) Consultation [facility] UZRKUw7nLvHHQpEu01/DBLuzMJFgr8NbUYujPBp1XPikQUMuM2ZjMCG1vE3dTWQ6JOfRBdDaIoRbTOY2 lbm [file] PARTS REPRESENTATIVE/0dUfJkdMGLugOVECOWk1eBJyiGkhj3Ls9tGcbue6EenrljkUOQXhJ7X2tSRQbAjWuLA7chSYRqPBJ [file] ICAgICAgICAgICAgICAgICAgICAgICAgICAgICAgICAgICAgICAgICAgICAgICAgICAgICAgICAgICAg ICAgICAgICAgICAgICAgICAgICAgICAgICAgICAgICAgICAgICANCiAgICAgICAgICAgICAgICAgICAg ICAgICAgICAgICAgICAgICAgICAgICAgICAgICAgIC AgICAgICAgICAgICAgICAgICAgICAgICAgICAgICAgICAgICAgICAgICAgICAgICANCiAgICAgICAgIC AgICAgICAgICAgICAgICAgICAgICAgICAgICAgICAgICAgICAgICAgICAgICAgICAgICAgICAgICAgIC AgICAgICAgICAgICAgICAgICAgICAgICAgICAgICAN CiAgICAgICAgICAgICAgICAgICAgICAgICAgICAgICAgICAgICAgICAgICAgICAgICAgICAgICAgICAg ICAgICAgICAgICAgICAgICAgICAgICAgICAgICAgICAgICAgICAgICANCiAgICAgICAgICAgICAgICAg ICAgICAgICAgICAgICAgICAgICAgICAgICAgICAgIC AgICAgICAgICAgICAgICAgICAgICAgICAgICAgICAgICAgICAgICAgICAgICAgICAgICANCiAgICAgIC AgICAgICAgICAgICAgICAgICAgICAgICAgICAgICAgICAgICAgICAgICAgICAgICAgICAgICAgICAgIC AgICAgICAgICAgICAgICAgICAgICAgICAgICAgICAg ICANCiAgICAgICAgICAgICAgICAgICAgICAgICAgICAgICAgICAgICAgICAgICAgICAgICAgICAgICAg ICAgICAgICAgICAgICAgICAgICAgICAgICAgICAgICAgICAgICAgICAgICANCiAgICAgICAgICAgICAg ICAgICAgICAgICAgICAgICAgICAgICAgICAgICAgIC AgICAgICAgICAgICAgICAgICAgICAgICAgICAgICAgICAgICAgICAgICAgICAgICAgICAgICANCiAgIC AgICAgICAgICAgICAgICAgICAgICAgICAgICAgICAgICAgICAgICAgICAgICAgICAgICAgICAgICAgIC AgICAgICAgICAgICAgICAgICAgICAgICAgICAgICAg ICAgICANCiAgICAgICAgICAgICAgICAgICAgICAgICAgICAgICAgICAgICAgICAgICAgICAgICAgICAg ICAgICAgICAgICAgICAgICAgICAgICAgICAgICAgICAgICAgICAgICAgICAgICANCjw/gVMzM2ghhFFz hpC5R2egFq1WHl9JYU5ds7TfKQYeRFrquaYxAiuCFj BpFPSuAbpHOxy2TFwxUK1ZdSVgD6StV3LhTBbmSM8FPWQgYLPvzYXjAYHrPHCjWsT7UHByDMhwUV8XjC IkSEkmPNVnNXVaPaDuNREsPSHpLQZhDDXjXBKPRA4RQwNhV0ShvH66YNQJKu2+DQplbmRvYmoNCjMxID Uvs4EpPQb1DN4TCAXmEjlup1UtJdSxXDJTSEahYF3K SMW7SAAaEUUiIn7HFYEoT303buWrVA1NDt7EJjYhEL5egx0VHdMvNIIiYndFZyf5TTqoYS8RsQOzUTqP b60ecLm8ekIojVMRDCIzarC7WZVlOu0bIUJ5ZJNORWYewGH1UxX1EmTfZqQsPAw8VTEeCZ2nRMamEW3E DFW1SMatIYZlCVEkC4sLSkWbRSR1HdEyaApfAH6DQj RaJ7QafdXhpZMmTXInGBYQJa4+CJemlxOrLeaYWcIcRPMds8GdJMy6KN8UOCKiSYaoEY3TNFGejJ1tFG qbHT7KBcYfSLEmBYNEBfAlY19ncFYjDQp9K0NdOxFiNEIyTfscNNIlYIsxDcJyVBWtXtDqXJxvNF2+ID 4+AUyqCV8TJTyzgiMeGLXhKh7CUUSpBNDlLG8rOPJt YZMoB2W8fHtyYSKLDeVbD5cgsmugID2lPBMyG933rVrrqgUvGWSvSTOxAq8JHVXbZTX6UBJlqCCjDsJj GQGLPNbzJP3PqVCpNNM9kM4uCDbtMGHwPRYxR8vAOiSvkOaqXT45jKryeuBgsTJaZKu+Hv6ORN2ou8Af MNi8jjLdTOeuSJV5JTnoLJVcQTNqBFEjVJJ8OSW2SI RQLiOoDQNvPTReYVvsNZXjAHNlkg6RTSCfRGJfGoGxEGRxUWGbJDLrBMbsWDZvEIO3XijrNISkOJMnGK 1SKbTqJHNpXDLaVMzmKWQdORWaiq9ORFPgCHEyDDS7PTKvIWCxQQUyTOhmUXOjETL8JoXzEASjAWRcRR 5FKaJbMUCrWNt3EDSxQFWdBWLlye0BNBPcHYQuMZXo IoBhQHFcTYVcJUdnBIRhQLPnEuE1GDAuOHEcNP7RTxTtTNErPBT0UeRqWBRcRRZxdd7NCCGlURSwGGez KeJkOUHyOSQhPTqfMEWzQMP9TPKkMVEhAMVqLR6AHfNdJWHoHMN8QGMrEKTiUTJtvh9NSLQkMBBvNmB5 MYRpBBNqOFCzUUjpZMBzYGK0TfqeYLYbSMOzOX0ZSe ZuQYCkEGfmGLVpJQIeYVPltb7ZZMTbDPSlZhE5PxJyHBPhTJJiGPyeVADxWFS4GuJxYAFhCELcNA2DAr RcHFOcFRa9PAGxAJLfWKCmjs5UWHGrEZKmLXk5XlDiGLFbODOyEEdlCVNqEIH1EGgeXKVfBGObKZ1YYj OgRBRoLVa9HARpAFRdIWRchq2FAXNkLXXgXGYsSrQy WSLoZBBdIMqvHQGqMBUsVcUbFOEjJTGwWT4LUqKuFTMjSqJ5FTZpILIhNDPgsx2VHBBcBKFqHvDsEuFm ROYxDJZdXApcWWWhHEOyNqWyLORkQPBmZF4ZRrWmTNMtTzY8DtKsBIKlAICuwk7TIHUhJJUtYxGcHlCs YTRfXRVdXPbxFMYuTKXeGEBhIKEwRPAkWM0PKvIiZM ChPmW5CRpuKCBiVFAqiy4TYMKuPFYyYPH1KOUwRDSzJRSlFPllUAWkDQT7WrNdZKKgRUTxZD0IHzHdGC swTJNSSny1JKerS2z0IFIwMS2QL1Ebb0DlHlKtJQFNAZosQI8eudUeBSSzYd8YH5fSJwtyG2XmFGApDY B3JzjyWSXjCPDdVNqoNYGkGMEqJso6PS7oGIL9MiFp ONJ6EeK2KFV2CeW7CtNjUUA1OeZqFSCqBwh3DlHpBU1GDi5MAaY1LXI6tPAzMw9DUuZ2AciQLlZpII7M DQo= ID Date Data Source [id number] 01/14/2021 08:56:[address] [facility] NEPHROSTOMY INSERTION CHANGEFINAL RES ULTInterpreted by:Sae Charles [...] The needle was removed and a 6 Thai coaxial dilator and sheath system was placed [...] rce(s) Supporting Document(s) ID Date Data Source [id number] 01/14/2021 09:45:47 AM EDT [facility] Service Cmnt XXX-Imp : NoneGI Panel [...] rce(s) Supporting Document(s) ID Date Data Source [id number] 01/14/2021 05:46:37 AM EDT [facility] Name Value Range Interpretation Code Description Data Belinda rce(s) Supporting Document(s) Bicarbonate [Moles/volume] in Serum 20 mmol/L 22-29 L [facility] Chloride [Moles/volume] in Serum or Plasma 103 mmol/L 98-107 [facility] Creatinine [Mass/volume] in Serum or Plasma 1.15 mg/dL 0.70-1.20 [facility] Glucose [Mass/volume] in Serum or Plasma 116 mg/dL 70-140 [facility] Potassium [Moles/volume] in Serum or Plasma 3.4 mmol/L 3.4-5.1 [facility] Sodium [Moles/volume] in Serum or Plasma 136 mmol/L 136-145 [facility] Urea nitrogen [Mass/volume] in Serum or Plasma 10 mg/dL 8-23 [facility] Anion gap 3 in Serum or Plasma 12 mmol/L 8-15 [facility] Osmolality of Serum or Plasma by calculation 281 mosm/kg 275-300 [facility] Creatinine/Urea nitrogen [Mass Ratio] in Serum or Plasma 9 [facility] Calcium [Mass/volume] in Serum or Plasma 11.1 mg/dL 8.6-10.0 H [facility] Glomerular filtration rate/1.73 sq M pre dicted among non-blacks [Volume Rate/Area] in Serum or Plasma by Creatinine-based formula (MDRD) 67 mL/min/1.73m2 >60 [facility] Glomerular filtration rate/1.73 sq M pre dicted among blacks [Volume Rate/Area] in Serum or Plasma by Creatinine-based formula (MDRD) 78 mL/min/1.73m2 >60 [facility] ID Date Data Source [id number] 01/14/2021 06:34:47 AM EDT [facility] Name Value Range Interpretation Code Description Data Belinda rce(s) Supporting Document(s) Leukocytes [#/volume] in Blood by Automated count 11.4 10*3/uL 4-10 [facility] Erythrocytes [#/volume] in Blood by Automated count 2.75 10*6/uL 4.6- 6.1 L [facility] Hemoglobin [Mass/volume] in Blood 7.8 g/dL 13.5-18 L [facility] Hematocrit [Volume Fraction] of Blood by Automated count 24.0 % 4 1-53 L [facility] Erythrocyte mean corpuscular volume [Entitic volume] by Auto mated count 87.6 fL 80-96 [facility] Erythrocyte mean corpuscular hemoglobin [Entitic mass] by Automated count 28.3 pg 27-33 [facility] Erythrocyte mean corpuscular hemoglobin concentration [Mass/volume] by Automated count 32.3 g/dL 32.0-36.0 [facility] Obtain Results Erythrocyte distribution width [Ratio] by Automated count 16.5 % 11.5-14.5 [facility] Platelets [#/volume] in Blood by Automated count 407 10*3/uL 150-400 [facility] Differential cell count method - Blood [facility] Neutrophils/100 leukocytes in Blood by Automated count 88 % [facility] Lymphocytes/100 leukocytes in Blood by Automated count 8 % [facility] Monocytes/100 leukocytes in Blood by Automated count 4 % [facility] Eosinophils/100 leukocytes in Blood by Automated count 0 % [facility] Basophils/100 leukocytes in Blood by Automated count 0 % [facility] Neutrophils [#/volume] in Blood by Automated count 10.02 10*3/uL 1.8- 7.0 H [facility] Lymphocytes [#/volume] in Blood by Automated count 0.91 10*3/uL 1.2-4 .0 L [facility] Monocytes [#/volume] in Blood by Automated count 0.46 10*3/uL 0-0.8 [facility] Eosinophils [#/volume] in Blood by Automated count 0.01 10*3/uL 0-0.5 [facility] Basophils [#/volume] in Blood by Automated count 0.03 10*3/uL 0-0.2 [facility] Nucleated erythrocytes/100 leukocytes [Ratio] in Blood by Automated count 0 /100{WBCs} 0-0 [facility] ID Date Data Source [id number] 01/16/2021 10:54:50 AM EDT [facility] Service Cmnt XXX-Imp : NoneMicroorganism XXX Cult : No growth 3 days Name Value Range Interpretation Code Description Data Belinda rce(s) Supporting Document(s) ID Date Data Source [id number] 01/14/2021 11:01:20 AM EDT [facility] Service Cmnt XXX-Imp : NoneMicroorganism XXX Cult : Test Not Performed.Improper Tube/Specimen Type Name Value Range Interpretation Code Description Data Belinda rce(s) Supporting Document(s) ID Date Data Source [id number] 01/13/2021 03:47:21 PM EDT [facility] Name Value Range Interpretation Code Description Data Belinda rce(s) Supporting Document(s) Consultation [facility] FCNOWr2xEkRUKmBq73/UPSfvPMRyl6PhHTdkVRk8KFeiFXHfD6IdUKL5oI3gEMT1SMwTZtAsKdFcXJK5 lbm [file] ICAgICAgICAgICAgICAgICAgICAgICAgICAgICAgIC AgICAgICAgICAgICAgICAgICAgICAgICAgICAgICAgDQogICAgICAgICAgICAgICAgICAgICAgICAgIC AgICAgICAgICAgICAgICAgICAgICAgICAgICAgICAgICAgICAgICAgICAgICAgICAgICAgICAgICAgIC AgICAgICAgICAgICAgDQogICAgICAgICAgICAgICAg ICAgICAgICAgICAgICAgICAgICAgICAgICAgICAgICAgICAgICAgICAgICAgICAgICAgICAgICAgICAg ICAgICAgICAgICAgICAgICAgICAgICAgDQogICAgICAgICAgICAgICAgICAgICAgICAgICAgICAgICAg ICAgICAgICAgICAgICAgICAgICAgICAgICAgICAgIC AgICAgICAgICAgICAgICAgICAgICAgICAgICAgICAgICAgDQogICAgICAgICAgICAgICAgICAgICAgIC AgICAgICAgICAgICAgICAgICAgICAgICAgICAgICAgICAgICAgICAgICAgICAgICAgICAgICAgICAgIC AgICAgICAgICAgICAgICAgDQogICAgICAgICAgICAg ICAgICAgICAgICAgICAgICAgICAgICAgICAgICAgICAgICAgICAgICAgICAgICAgICAgICAgICAgICAg ICAgICAgICAgICAgICAgICAgICAgICAgICAgDQogICAgICAgICAgICAgICAgICAgICAgICAgICAgICAg ICAgICAgICAgICAgICAgICAgICAgICAgICAgICAgIC AgICAgICAgICAgICAgICAgICAgICAgICAgICAgICAgICAgICAgDQogICAgICAgICAgICAgICAgICAgIC AgICAgICAgICAgICAgICAgICAgICAgICAgICAgICAgICAgICAgICAgICAgICAgICAgICAgICAgICAgIC AgICAgICAgICAgICAgICAgICAgDQogICAgICAgICAg ICAgICAgICAgICAgICAgICAgICAgICAgICAgICAgICAgICAgICAgICAgICAgICAgICAgICAgICAgICAg ICAgICAgICAgICAgICAgICAgICAgICAgICAgICAgDQogICAgICAgICAgICAgICAgICAgICAgICAgICAg ICAgICAgICAgICAgICAgICAgICAgICAgICAgICAgIC NrMGOaMCKuNDPnANNvPBTbESUeFEVqQXPxVROhDNJkDFGcYGYmGUPiPXs8G4vuRGIpHIVaIY5fALo5Mg 8+UKwODvKrZJX9olUhyC3QVR3ro1HwQNstIZYxe7KsMOg4IA4YBAJxCDxoCO0KSUzwme5VABCjAYQwlX RKw6doXxUhIXE5BTVrUsneQQ9HKPTnD9egwzBkRRTy BXCDORhsZEBLKEkeELIZXGUmRLDyKtXqTwQkOCWmPOSzQSAROLH0NLXyRaBhDLClMIJzNhUuHIHEHBCg WVOiDnQyMPfhYU8Iq8XulFNoIW1QIn1YNmSdCA7dag8ICVMkXSTgBprABom9MXbtRF0QbTCbqVD0IeRu LNPVCwQeD7gsx0XdUFqbOSDYATiuWF3Gw9SefJSfOP o+Zx3PYR5fz1YaEFz6IfFhZS3iui9FEJzISfBjL1MokBnsDVVvmfB1cPKyJDR0KOQegAtnTiA4kHABMC vuhcH5v1fbYI3QMRP7TFahKJQqFsIyLIEhJGg4UeIIAShFOxQeM1Vne0BfWjB3RAVuJtZtQBvqDUWkRU xxLO12cQzkSI2FWXRrROFgDF39AMM7CXNbOa9IWb5B LbTeVP7pqn5OYVgkOXYkJdiZIzo1NVpgAD0QfSAiF9FwmDRmr5vCYlPcA9ASQWW8HWAbGc3ANIHzJlOj OFPnXOmiAR7eIDXcDDAXhNyylnF1TA2TFZ3hscClHS2VJjFtAj8oGz3TPvDjR9YwH2ImCDAxYGMCQPzw LK9KINjyUU0xUQ3Ka7GGkKSymD9aeq7TXEQsHPInAm cyxe6IQpxyK7W0rSrdSTKjKSJbESPPMTylNU7XPRLkODV3CII8TVExGZEIKjEjS02sLI6FK9Xti28qNi Y7DILfQuBrOTriKQ11lQqhxzEtdMUflCmvNR7LKt6+DQplbmRvYmoNCnhyZWYNCjAgNDkNCjAwMDAwMD XlBXToNkB9ApLkMn2NIYLuMIHfDIRnVpLnNTRjXETb YWqeWMJdXNVlAMo9IDUnQTZlSJ8GZoAhVKLjVYSbIwLcMGLhDVRbzd0UGUSiLBJhBEX4SsQpGMAvBGNq SVjjNLGfIOE5EiXxAYVtTLDyLA4QIjBlQSXwUIK0XnHcBMOzKVTjyq7RXQGePFZdKySgBjMfGBXlTGXd EXmnBMGyQVT8EEK7KAXyJIQjSM9YVwPzQBRfOFK0Rx hkZDFsUDTqiz1UWHMzDTAfBJSrVGZjSEBzCZFqACjlDHSyDWUxVOE5UXOjOCYhVE2ZSvPcZAIqJZK2Dv IyRXViWBAfyh0RJWJfWWMhHxZ6GZGjKZQgJHGqAQfiZJLmRNB3Lnx3HINiEADsWO9OSrJsMIJgQPq7WG ZxOWAaXOTzff3LIFNrAVIzPWWaUkQpPGGjYHSxURym QIAyPJQnGBwzMXGaNAVfMC0KJoOsPSKkJtHqPspcKRGfLJHlbh7ZLQWdZJVpBpB5XoThFVOpOHMgZEuw NCOuCME6ZziwCBIsJATxWA0DWoSlRVCfSbBmDnVcLXHbOPRrfg2BGEDtPTJjCDB1JCYvGCKrWCQcTKqq RRHtNRJsItjoDOPeVNOqAA7RUeKrJTEdIsO4CCakIV BuYABohy1ROCUgTFVsSqO0KsWiUCJfSMLcLPsbAROvHMFuBuY9MJKlMZYqAB4QLwGcKBJyKeI3BolcMT WwMXJnfy0SEFPsAVUeFOr0FiOjAUJwLEQdNUiyNQXtUTI0WVu7HEGgLTZnWS0FNoTvZLYlUnOjKoKuUN JyKNOeyw0LXSGqWOIiCcIePDYxFIKvGZNrXTibVRRf MRI7DpT0FRYxGFEkQL3HDjCzTFGtIyV0ZiBjRCBfYVTxhr5VTOUrUAXyEgE5BFPhEEBmERAcQKqvDDZh RIE3NgksAAZaUNFiMB5FFpVxWEYwDqj3HcTjCFTdIVGdue0XLDLfCKL1UEQ5ADMvLHRcPAPiZXcfPAHs RHE4MIC6AXLmVNDdVG3HRhEyTKOeSEw9OhzzUILlMF Iaul2EORQkDDD3DVGuHsEpAGRvGATuKCjpPOWkSQExQIUwHKXrEXEeVE8WHlIzVFGnEOErNHTsPCIfUN Erhk6WVIThANW4RVV4YJXtPQPwVDIeHFvuZXEiBQVgYAzuBJDeUHJuDP1HVvIvTJVsAUZ2YdVzYSSyPD Ylwb2MCMUwEZP8UmHaYMVhBVOzXEKyXMvuDEWvTBLs OGahFTDlYINzOH4IDjWgLWDoCWO2XKEoUEJeDXHedi4TuYTfhZbnug9JIVkMMq4TlNwzSZH1JApdYd3r cJG8TVWdXOAAWl2QebWpEYKxJPKJLBhmACEtOJCbPSY2QFYgZrOoGLU5I0E9Awa1AbZfDpPwJQL1PhHl RdP7DNZ2JStjGME5XuXbVAExOvPuJPkhZKAsO2UvAX gzMGE+PG4hNCb+Ay7Tx3TbqrX0nqHeERx7Gxd3JK4MIHTPE6FMAw== ID Date Data Source [id number] 01/15/2021 12:43:02 PM EDT [facility] Service Cmnt XXX-Imp : NoneMicroorganism XXX Cult : 200 col/mlStaphylococcus epidermidis. Name Value Range Interpretation Code Description Data Belinda rce(s) Supporting Document(s) ID Date Data Source [id number] 01/13/2021 01:49:56 PM EDT [facility] Name Value Range Interpretation Code Description Data Belinda rce(s) Supporting Document(s) History and Physical [facility] WIZSSx4mKmFXDySp12/KEBmxJOFvx3NeVArzIOr6WMevRFEvL8ZoGQI0uS2yXZO9IDvDSpCaUhWvVFQ8 lbm [file] VgVsQF5GTy2ZCkM5INK7qQSdKc7MBjt4PSxBJvUjNC0QWFy= ID Date Data Source [id number] 01/13/2021 11:36:31 AM [facility] Value Range Interpretation Code Description Data Belinda rce(s) Supporting Document(s) Cobalamin (Vitamin B12) [Mass/volume] in Serum or Plasma 724 pg/ml 2 11-946 [facility] ID Date Data Source [id number] 01/13/2021 11:36:31 AM [facility] Value Range Interpretation Code Description Data Belinda rce(s) Supporting Document(s) Ferritin [Mass/volume] in Serum or Plasma 583 ng/ml 30-400 [facility] ID Date Data Source [id number] 01/13/2021 11:36:31 AM [facility] Name Value Range Interpretation Code Description Data Belinda rce(s) Supporting Document(s) Haptoglobin [Mass/volume] in Serum or Plasma 348 mg/dl 30-200 H [facility] ID Date Data Source [id number] 01/13/2021 12:14:08 PM [facility] Value Range Interpretation Code Description Data Belinda rce(s) Supporting Document(s) Lactate dehydrogenase [Enzymatic activit y/volume] in Serum or Plasma by Lactate to pyruvate reaction 169 U/L 122-225 [facility] ID Date Data Source [id number] 01/13/2021 12:14:08 PM [facility] Value Range Interpretation Code Description Data Belinda rce(s) Supporting Document(s) Iron [Mass/volume] in Serum or Plasma 13 ug/dl 59-158 [facility] Transferrin [Mass/volume] in Serum or Plasma 114 mg/dL 200-360 [facility] Iron binding capacity [Mass/volume] in Serum or Plasma 158 ug/dL 278 -500 [facility] Iron saturation [Mass Fraction] in Serum or Plasma 8.0 % 20-55 [facility] ID Date Data Source [id number] 01/13/2021 11:38:00 AM [facility] Value Range Interpretation Code Description Data Belinda rce(s) Supporting Document(s) Folate [Mass/volume] in Serum or Plasma >4.77 [facility] ID Date Data Source [id number] 01/13/2021 06:50:57 AM [facility] Value Range Interpretation Code Description Data Belinda rce(s) Supporting Document(s) Potassium [Moles/volume] in Serum or Plasma 3.4 mmol/L 3.4-5.1 [facility] ID Date Data Source [id number] 01/13/2021 08:12:47 AM [facility] Value Range Interpretation Code Description Data Belinda rce(s) Supporting Document(s) Magnesium [Mass/volume] in Serum or Plasma 1.5 mg/dL 1.6-2.6 [facility] ID Date Data Source [id number] 01/13/2021 08:12:47 AM [facility] Value Range Interpretation Code Description Data Belinda rce(s) Supporting Document(s) Phosphate [Mass/volume] in Serum or Plasma 1.9 mg/dL 2.5-4.5 [facility] ID Date Data Source [id number] 01/25/2021 05:06:08 PM EDT [facility] Name Value Range Interpretation Code Description Data Belinda rce(s) Supporting Document(s) Thiamine [Moles/volume] in Blood 54.7 nmol/L 66.5-200.0 L [facility] (NOTE)Verified by repeat analysisThi s test was developed and its performance characteristicsdetermined by [facility]. It has not been cleared or approvedby the Food and Drug Administration.Performed At: [facility] [id number] Holden MD Ph:[phone] ID Date Data Source [id number] 01/13/2021 02:10:42 AM [facility] Name Value Range Interpretation Code Description Data Belinda rce(s) Supporting Document(s) Leukocytes [#/volume] in Blood by Automated count 14.4 10*3/uL 4-10 [facility] Erythrocytes [#/volume] in Blood by Automated count 2.59 10*6/uL 4.6- 6.1 L [facility] Hemoglobin [Mass/volume] in Blood 7.4 g/dL 13.5-18 L [facility] Hematocrit [Volume Fraction] of Blood by Automated count 22.7 % 4 1-53 L [facility] Erythrocyte mean corpuscular volume [Entitic volume] by Auto mated count 87.6 fL 80-96 [facility] Erythrocyte mean corpuscular hemoglobin [Entitic mass] by Automated count 28.5 pg 27-33 [facility] Erythrocyte mean corpuscular hemoglobin concentration [Mass/volume] by Automated count 32.5 g/dL 32.0-36.0 [facility] width [Ratio] by Automated count 16.3 % 11.5-14.5 [facility] Platelets [#/volume] in Blood by Automated count 391 10*3/uL 150-400 [facility] Differential cell count method - Blood [facility] Neutrophils/100 leukocytes in Blood by Automated count 86 % [facility] Lymphocytes/100 leukocytes in Blood by Automated count 6 % [facility] Monocytes/100 leukocytes in Blood by Automated count 8 % [facility] Eosinophils/100 leukocytes in Blood by Automated count 0 % [facility] Basophils/100 leukocytes in Blood by Automated count 0 % [facility] Neutrophils [#/volume] in Blood by Automated count 12.34 10*3/uL 1.8- 7.0 [facility] Lymphocytes [#/volume] in Blood by Automated count 0.91 10*3/uL 1.2-4 .0 L [facility] Monocytes [#/volume] in Blood by Automated count 1.08 10*3/uL 0-0.8 [facility] Eosinophils [#/volume] in Blood by Automated count 0.02 10*3/uL 0-0.5 [facility] Basophils [#/volume] in Blood by Automated count 0.04 10*3/uL 0-0.2 [facility] Nucleated erythrocytes/100 leukocytes [Ratio] in Blood by Automated count 0 /100{WBCs} 0-0 [facility] ID Date Data Source [id number] 01/13/2021 02:16:55 AM EDT [facility] Name Value Range Interpretation Code Description Data Belinda rce(s) Supporting Document(s) Bicarbonate [Moles/volume] in Serum 24 mmol/L 22-29 [facility] Chloride [Moles/volume] in Serum or Plasma 101 mmol/L 98-107 [facility] Creatinine [Mass/volume] in Serum or Plasma 1.13 mg/dL 0.70-1.20 [facility] Glucose [Mass/volume] in Serum or Plasma 118 mg/dL 70-140 [facility] Potassium [Moles/volume] in Serum or Plasma 3.0 mmol/L 3.4-5.1 L [facility] Sodium [Moles/volume] in Serum or Plasma 135 mmol/L 136-145 [facility] Urea nitrogen [Mass/volume] in Serum or Plasma 12 mg/dL 8-23 [facility] Anion gap 3 in Serum or Plasma 9 mmol/L 8-15 [facility] Osmolality of Serum or Plasma by calculation 280 mosm/kg 275-300 [facility] Creatinine/Urea nitrogen [Mass Ratio] in Serum or Plasma 10 [facility] Calcium [Mass/volume] in Serum or Plasma 11.1 mg/dL 8.6-10.0 [facility] Glomerular filtration rate/1.73 sq M pre dicted among non-blacks [Volume Rate/Area] in Serum or Plasma by Creatinine-based formula (MDRD) 69 mL/min/1.73m2 >60 [facility] Glomerular filtration rate/1.73 sq M pre dicted among blacks [Volume Rate/Area] in Serum or Plasma by Creatinine-based formula (MDRD) 80 mL/min/1.73m2 >60 [facility] ID Date Data Source [id number] 01/13/2021 02:01:08 AM [facility] Name Value Range Interpretation Code Description Data Belinda rce(s) Supporting Document(s) Calcium.ionized [Moles/volume] in Arterial blood 1.73 mmol/L 1.13-1.3 2 [facility] Called to and read back byEDDIE SARAVIA AT 10E AT 0201 BY [id number] XW ID Date Data Source [id number] 01/20/2021 02:06:27 AM [facility] Value Range Interpretation Code Description Data Belinda rce(s) Supporting Document(s) Parathyrin related protein [Moles/volume] in Serum or Plasma [facility] (NOTE)This test was developed and its pe rformance characteristicsdetermined by [facility]. It has not been cleared or approvedby the Food and Drug Administration.Reference Range:All Ages: <2.0The PTHrP assay should not be used to exclude cancer orscreen tumor patients for humoral hypercalcemia ofmalignancy (HHM). The results should always be assessed inconjunction with the patient's medical history, clinicalexamination, and other findings. If test results areclinically discordant, please contact the laboratory.Performed At: [id number] [place], [place] [id number] Brian F MD Ph:[phone] ID Date Data Source [id number] 01/12/2021 06:41:32 PM [facility] Value Range Interpretation Code Description Data Belinda rce(s) Supporting Document(s) Hepatitis C virus Ab [Presence] in Serum or Plasma by Immuno assay Non Reactive [facility] No serological evidence of active infect ion. If recent exposure is suspected, test for HCV RNA. ID Date Data Source [id number] 01/12/2021 06:21:00 PM [facility] Value Range Interpretation Code Description Data Belinda rce(s) Supporting Document(s) Prothrombin time (PT) 17.5 s 11.6-14.0 [facility] INR in Platelet poor plasma by Coagulation assay 1.50 [facility] Routine intensity oral anticoagulation I NR is typically 2.0-3.0. Target INR must be clinically individualized. ID Date Data Source [id number] 01/12/2021 06:18:02 PM EDT [facility] Name Value Range Interpretation Code Description Data Belinda rce(s) Supporting Document(s) Calcium.ionized [Moles/volume] in Arterial blood 1.75 mmol/L 1.13-1.3 2 [facility] Called to and read back byDANIEL HANLEY RN ON AT 1816 BY 2055 ID Date Data Source [id number] 01/12/2021 01:22:32 PM EDT [facility] MR BRAIN WITH AND WITHOUT CONTRAST [id number] FINAL RESULTInterpreted by:Tricia Tate MDINDICATION: Mental status [...] rce(s) Supporting Document(s) ID Date Data Source [id number] 01/12/2021 12:04:38 PM EDT [facility] Name Value Range Interpretation Code Description Data Belinda rce(s) Supporting Document(s) History and Physical [facility] LLFURl8hEhOGRwOf17/LRIhyTIRgl4WeLMfoIWn0QGgeNTUuA1SwJMP8iF9mXCX6PSkOXfBkAmMqEWH4 lbm [file] AgICAgICAgICAgICAgICAgICAgICAgICAgICAgICAg ICAgICAgICAgICAgICAgICAgICAgICAgICAgICAgICAgICAgICAgICAgICAgICAgICAgICAgDQogICAg ICAgICAgICAgICAgICAgICAgICAgICAgICAgICAgICAgICAgICAgICAgICAgICAgICAgICAgICAgICAg ICAgICAgICAgICAgICAgICAgICAgICAgICAgICAgIC AgICAgDQogICAgICAgICAgICAgICAgICAgICAgICAgICAgICAgICAgICAgICAgICAgICAgICAgICAgIC AgICAgICAgICAgICAgICAgICAgICAgICAgICAgICAgICAgICAgICAgICAgICAgDQogICAgICAgICAgIC AgICAgICAgICAgICAgICAgICAgICAgICAgICAgICAg ICAgICAgICAgICAgICAgICAgICAgICAgICAgICAgICAgICAgICAgICAgICAgICAgICAgICAgICAgDQog ICAgICAgICAgICAgICAgICAgICAgICAgICAgICAgICAgICAgICAgICAgICAgICAgICAgICAgICAgICAg ICAgICAgICAgICAgICAgICAgICAgICAgICAgICAgIC AgICAgICAgDQogICAgICAgICAgICAgICAgICAgICAgICAgICAgICAgICAgICAgICAgICAgICAgICAgIC AgICAgICAgICAgICAgICAgICAgICAgICAgICAgICAgICAgICAgICAgICAgICAgICAgDQogICAgICAgIC AgICAgICAgICAgICAgICAgICAgICAgICAgICAgICAg ICAgICAgICAgICAgICAgICAgICAgICAgICAgICAgICAgICAgICAgICAgICAgICAgICAgICAgICAgICAg DQogICAgICAgICAgICAgICAgICAgICAgICAgICAgICAgICAgICAgICAgICAgICAgICAgICAgICAgICAg ICAgICAgICAgICAgICAgICAgICAgICAgICAgICAgIC AgICAgICAgICAgDQogICAgICAgICAgICAgICAgICAgICAgICAgICAgICAgICAgICAgICAgICAgICAgIC AgICAgICAgICAgICAgICAgICAgICAgICAgICAgICAgICAgICAgICAgICAgICAgICAgICAgDQogICAgIC AgICAgICAgICAgICAgICAgICAgICAgICAgICAgICAg ICAgICAgICAgICAgICAgICAgICAgICAgICAgICAgICAgICAgICAgICAgICAgICAgICAgICAgICAgICAg TEZrKBu4S6wdUGDpSZErAY7bIKk9Ox6+NQpOEcZkUJM3gzKlvQ4JCI7kd8TbWAazFQYtr1ZuQQy5ZK7R LMXrUKczGU2DVRjscg8RRREcHPSloSJJf3yrYoDqCB G4KAAvKiarXX7DOBWsS8enghOqXTFySUEBTKdhJXWFWVlxDHKWRZNmPHTdKdGeEmXdWDAmZQItPEQSAI 9CRcChF8TbeY80WYIQDc4+KWpdabVsSytXBbQ0XXXvj8WdAMy4UL8ONRIuPuuly3SvTtNcUCQZRLbyFN 2MQRJ8JLW5PUUjTe5BAZEsM878haKbDT8MCc7JPrDx BS1zah2EUsHzCMZdBnxMKua6BNlzOS2LjATxEOfCAySvLpqgA4PdACOlPFPjCjTcOEKbvXylFD6FQwRh JRLiDQ0kHK4aDVRvLKR3QnFjRXAJPV0NIYMiHULefPDfOBSeNQOCIF7JMDffSPG8MXKjpmHhgDSfUEon UY7LRVYmwpWrHoHyREPYAVu+Qh2QJU4se1XrVEovXi JqGP3arb5CPTdYYeUcD8S8wVTxI5L7PTutUb5FQVEdGUHgFuExGFNIYZkiPU8BIV0ktkT0TV7OzHRbOQ NbOMSxjLXtVOs7Q91dnJFpVVfcQR8UPRX+Immanuel+Wj1VWYSmGYSiSQPzAoUpKJYRJdRrA2OpB5YWi2UrL8 UgTE08pAuerbRyULajYX7VCM4jKLGePHASMP1ZzHQp nA2thxLfPUSgJWDOHxRgC48ejVAyIDUrELZ0RGBfLs5HYHAsA1GtnuDdsZutejZfDKPcRZQNTZ6PMGnk uxDmlJVcfYtcZY00gWxbXH9OZi8OImFjEJ5rvk6FhOOfQq5QMYOuXA8PZIRgVLRfQPOpMDB3VXHfJxIo VWpsUYAiUNEkUTV6EGTxPOMrMA4CNeAnHYJxLwv2QN ttXUCeFASbmg2JSVZuCJE5GCzxRTYzCLLbGLXkYTsnZKCpJAKcDKR9VJSpPASzLA7RLkRxMVGbKDE6YM MsYAMwXGLnpn2KQTScJFDjTIF8QTNmYFXwNCQcQPvlBANyFVW2YVL2XVCeRIUpUC5MNlZxOIEoUZhgRr nsAFLaVALdhw2SLYDlSKUzFgY3CpBlLBQzIFKaSXoz PAEmJCZkUnShPNImTXOxYA2CPsLuNNNxSFK1BVSqDFXxOYNqqu2FORRrBYAwKLq8SZEhQXQqFCZyBLaa TZMeHDE0IuT1FGVhWOGhGC9VKpJtUXJhKEh6BxKiXMTeBXRoir1QMYEkJZNmLIW2ELEbCFXxLEToBArc UROsAZVqKlQxKLUjBXKhUO0LWjAfPIToRwWtIeCmSZ IqXFTqat8PIJBtMISmYxRhOCKnQNKmTUXsBWdnDIOpTQSiMyGqBNSgULYbRT0SRjZnEVHgNgZ3CxXrMI MtACCnyd1MZTCoUQSlCql8KtAcGKSmBIXtFCeoWSPlXLJgTBEfZFKhUFVxKU7XPuAhIONvPmC6FGWtSN KvMARapy9CZJZjHOKuVNIeKuYqADCqGBUuKUdwMIBw FNU5MjieCOMsWXLoVQ4DJiYuIMCjCkWgVTpzWOWdYEIspl3DYOSuBGGcQiW0RVZzRNMmEWTtVGwcEUVl COR9SeU1WPQmFUNdCZ5GCuCrRMRjYbvfHfZjLUIjNZLtuj7APFFdEFSvEZP8KeZlRWLrGZYqELdtFBRf EXH1MUNsWUMaXZPwSN5BLzIxHCDgJuu5NBJnAQUgDV Punr5EPRYgUTSlWCfjCdGfGKYyMJAgDSmqYBWxLLD6WtV6FXPfAOVuQY3WTmBtPBCjVZB5BWZwUBLeED Cdwi0NJKGbEXZ5LSosBBCvUREzCNBhBYhuONXjXTVjBMA0YJNqSQMnMZ6VRcMbZFkjNMVGUtl5OJggX7 w0RVJvFG9RM7Vfo5RcVatrPPKOMOuiSO2obsBbFPAe Mi5ZX6pTSqh8VpyrKOJrPrX1DDY5TXJyH1CcMuWwLYH0Fud5QZH4Db1vQKKoY2M0UhQcQRt6JClqRPGy FlXtFRH3Fuv8YRsvNKt5VwXrKQ5UOz1SSbT6VUJ4oGVlRl7UZCEnKUzCOzExWP6FWAb= ID Date Data Source [id number] 01/12/2021 11:11:26 AM EDT [facility] RENAL OR AORTA COMPLETE [id number] RE SULTInterpreted by:ANNALISA PereiraLINICAL INDICATION: rule out [...] Data Source [id number] 01/12/2021 09:03:15 AM EDT [facility] Name Value Range Interpretation Code Description Data Belinda rce(s) Supporting Document(s) Calcium.ionized [Moles/volume] in Arterial blood 1.75 mmol/L 1.13-1.3 2 [facility] CALLED TO TUSHAR MCCAULEY RN ON 10E AT 090 3 BY [id number] read back ID Date Data Source [id number] 01/12/2021 05:13:00 AM EDT [facility] Name Value Range Interpretation Code Description Data Belinda rce(s) Supporting Document(s) SARS-CoV-2 RNA 2019 nCoV Real-Time RT[facility]PCR: [facility] lab was ordered by [facility] and reported by [facility]. 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 [facility] Patient has symptoms related to [facility] When did you start to experience these symptoms [Date and time] [Phen X] [facility] Patient was hospitalized because of this condition [facility] patient was admitted to ICU for [facility] Patient resides in a congregate care setting [facility] status [facility] ID Date Data Source [id number] 01/12/2021 01:59:22 AM EDT [facility] Name Value Range Interpretation Code Description Data Belinda rce(s) Supporting Document(s) Parathyrin.intact [Mass/volume] in Serum or Plasma 24 pg/mL 15-65 [facility] ID Date Data Source [id number] 01/12/2021 01:42:12 AM EDT [facility] Name Value Range Interpretation Code Description Data Belinda rce(s) Supporting Document(s) Leukocytes [#/volume] in Blood by Automated count 13.5 10*3/uL 4-10 H [facility] Erythrocytes [#/volume] in Blood by Automated count 2.70 10*6/uL 4.6- 6.1 L [facility] Hemoglobin [Mass/volume] in Blood 7.7 g/dL 13.5-18 L [facility] Hematocrit [Volume Fraction] of Blood by Automated count 23.7 % 4 1-53 L [facility] Erythrocyte mean corpuscular volume [Entitic volume] by Auto mated count 87.9 fL 80-96 [facility] Erythrocyte mean corpuscular hemoglobin [Entitic mass] by Automated count 28.6 pg 27-33 [facility] Erythrocyte mean corpuscular hemoglobin concentration [Mass/volume] by Automated count 32.6 g/dL 32.0-36.0 [facility] Erythrocyte distribution width [Ratio] by Automated count 16.1 % 11.5-14.5 H [facility] Platelets [#/volume] in Blood by Automated count 388 10*3/uL 150-400 [facility] ID Date Data Source [id number] 01/12/2021 01:56:22 AM EDT [facility] Name Value Range Interpretation Code Description Data Belinda rce(s) Supporting Document(s) Albumin [Mass/volume] in Serum or Plasma by Bromocresol green (BCG) dye binding method 2.9 g/dL 3.5-5.2 L [facility] al Bilirubin.total [Mass/volume] in Serum or Plasma 0.3 mg/dL <1.2 [facility] Calcium [Mass/volume] in Serum or Plasma 12.5 mg/dL 8.6-10.0 H [facility] Chloride [Moles/volume] in Serum or Plasma 100 mmol/L 98-107 [facility] Creatinine [Mass/volume] in Serum or Plasma 0.93 mg/dL 0.70-1.20 [facility] Glucose [Mass/volume] in Serum or Plasma 119 mg/dL 70-140 [facility] Alkaline phosphatase [Enzymatic activity/volume] in Serum or Plasma 122 U/L 40-129 [facility] Potassium [Moles/volume] in Serum or Plasma 3.6 mmol/L 3.4-5.1 [facility] Protein [Mass/volume] in Serum or Plasma 5.9 g/dL 6.4-8.3 L [facility] Sodium [Moles/volume] in Serum or Plasma 137 mmol/L 136-145 [facility] Aspartate aminotransferase [Enzymatic activity/volume] in Serum or Plasma 33 U/L <40 [facility] Urea nitrogen [Mass/volume] in Serum or Plasma 16 mg/dL 8-23 [facility] Osmolality of Serum or Plasma by calculation 286 mosm/kg 275-300 [facility] Creatinine/Urea nitrogen [Mass Ratio] in Serum or Plasma 17 [facility] Bicarbonate [Moles/volume] in Serum 26 mmol/L 22-29 [facility] Alanine aminotransferase [Enzymatic activity/volume] in Seru m or Plasma 14 U/L <41 [facility] Anion gap 3 in Serum or Plasma 11 mmol/L 8-15 [facility] Glomerular filtration rate/1.73 sq M pre dicted among non-blacks [Volume Rate/Area] in Serum or Plasma by Creatinine-based formula (MDRD) 89 mL/min/1.73m2 >60 [facility] Glomerular filtration rate/1.73 sq M pre dicted among blacks [Volume Rate/Area] in Serum or Plasma by Creatinine-based formula (MDRD) >60 [facility] ID Date Data Source [id number] 01/12/2021 01:56:22 AM [facility] Name Value Range Interpretation Code Description Data Belinda rce(s) Supporting Document(s) Magnesium [Mass/volume] in Serum or Plasma 1.7 mg/dL 1.6-2.6 [facility] ID Date Data Source [id number] 01/12/2021 01:56:22 AM [facility] Name Value Range Interpretation Code Description Data Belinda rce(s) Supporting Document(s) Phosphate [Mass/volume] in Serum or Plasma 2.4 mg/dL 2.5-4.5 L [facility] ID Date Data Source [id number] 01/12/2021 01:41:33 AM [facility] Name Value Range Interpretation Code Description Data Belinda rce(s) Supporting Document(s) Calcium.ionized [Moles/volume] in Arterial blood 1.77 mmol/L 1.13-1.3 2 [facility] Called to and read back Geraldine TRAYLOR RN ON 10E AT 0141 BY 1521 ID Date Data Source [id number] 01/11/2021 06:34:44 PM [facility] XR CHEST FRONTAL ONLY [id number] RESULTI nterpreted by:Clarissa Villegas, MDPROCEDURE INFORMATION: Exam: [...] rce(s) Supporting Document(s) ID Date Data Source [id number] 01/11/2021 08:24:48 PM [facility] Name Value Range Interpretation Code Description Data Belinda rce(s) Supporting Document(s) Bicarbonate [Moles/volume] in Serum 21 mmol/L 22-29 L [facility] Chloride [Moles/volume] in Serum or Plasma 97 mmol/L 98-107 L [facility] Creatinine [Mass/volume] in Serum or Plasma 0.96 mg/dL 0.70-1.20 [facility] Glucose [Mass/volume] in Serum or Plasma 114 mg/dL 70-140 [facility] Potassium [Moles/volume] in Serum or Plasma 2.7 mmol/L 3.4-5.1 [facility] Results called to and read back by Ariadna CHEN AT 2023 Sodium [Moles/volume] in Serum or Plasma 137 mmol/L 136-145 [facility] Urea nitrogen [Mass/volume] in Serum or Plasma 18 mg/dL 8-23 [facility] Anion gap 3 in Serum or Plasma 19 mmol/L 8-15 H [facility] Osmolality of Serum or Plasma by calculation 287 mosm/kg 275-300 [facility] Creatinine/Urea nitrogen [Mass Ratio] in Serum or Plasma 19 [facility] Calcium [Mass/volume] in Serum or Plasma 12.1 mg/dL 8.6-10.0 H [facility] Glomerular filtration rate/1.73 sq M pre dicted among non-blacks [Volume Rate/Area] in Serum or Plasma by Creatinine-based formula (MDRD) 88 mL/min/1.73m2 >60 [facility] Glomerular filtration rate/1.73 sq M pre dicted among blacks [Volume Rate/Area] in Serum or Plasma by Creatinine-based formula (MDRD) >60 [facility] ID Date Data Source [id number] 01/11/2021 02:43:27 PM EDT [facility] Name Value Range Interpretation Code Description Data Belinda rce(s) Supporting Document(s) [facility] GUTFDz8yRuKSFuTxp0VmYjQbCWCzQT5pugq5H1Z4sKRpY4IukALol3tpH1LnX0ZzAIYwJTBUJH1WmBTb jb2 [file] [place]/WY7HX+9RT5MVraB5xFB/5R2jZox0c8wl9nN6fB fkHghj8m2k4Bf/9Lz0CO+1/WIlX9j6AKrjERLXWL2bbQjtLT44CBCR0Q2EDmb4m/mB7/N//2X2wG4Eq1 5fC2QMQphk7LNvAqo389EMZQESIoxqV1bXbHrbU6eXSvED8kYIDTcWAdaNpkkoz9FTHP5kS5OB3Cb9wk 9GBnRcBGkJOX8dFJ3pYA7NY1hAUZl7HgCBtgmCfPql TVWxrgeyKO5gF7Woy4KBrtUTsutPzpkiwKYWfy7FZB9rJp7CNM9eKR0TAnB0dCM+KEOCVOiTPijMpJdg ghTkKbA1oXJEsFJrqaAodwLckdLUrKU7rWqHIYgain+J5dE9hMPY3bE2N5OIORuT4lWZ5TU230YNO/Ruiz [file] biAKMDAwMDAwMDUyMyAwMDAwMCBuIAowMDAwMDAwNj IeTTPzWEJnEG6iYyFuKPLnAXG5VSXiYDGkTQHqseHDQOGzEBSuGPd3EEBmUWAfGKIkUKzvYNVeXQOmGZ Y4SZXuOGUlGC7jNvGcMIMwTPZlACRwGMIsTQNhpoMPYGUnDESqQVD9IAMpQRIkCKCtNNqbWTSpOFJwSb i7HELpAIDeVD5lQiFkSVBiTZW1UCBzYUQkQYLuddZT MGEpKGS4Vzr8LYKbIIKoTLOgGRdrDZUpMLXcPaQ5YZVzROMmHD2yPuNoYQVvQXS5NoExNNQlRBRkezTY YABaBYWxRAB3GbLcHPNbAYIbAHshILDlNKBlJIAnEUV8GXE1ZOYnQzGqRKuwFGRDFUnIC6CtcrMaHnOZ X8jkYt5gKsFbHGDMI1Jzk3CfENBpCVFSPx0+LiP1WFO4pLPxRyw1CTP4RqjoTJPWBy== ID Date Data Source [id number] 01/16/2021 08:30:45 AM EDT [facility] Service Cmnt XXX-Imp : R HANDMicroorgani sm XXX Cult : No growth 5 days Name Value Range Interpretation Code Description Data Belinda rce(s) Supporting Document(s) ID Date Data Source [id number] 01/12/2021 12:07:11 AM [facility] Name Value Range Interpretation Code Description Data Belinda rce(s) Supporting Document(s) Calcium.ionized [Moles/volume] in Arterial blood 1.88 mmol/L 1.13-1.3 2 [facility] Called to and read back byTahir SANCHEZ RN ON 10E AT 0007 BY 1521 ID Date Data Source [id number] 01/15/2021 09:50:27 AM [facility] Cmnt XXX-Imp : L HANDMicroorgani sm XXX Cult : Gram negative cocciin anaerobic broth.Called to and read back byHuong Hanley RN on 10E at 1452 on 01/12/21 by Vanita kaur anaerobic broth. Name Value Range Interpretation Code Description Data Belinda rce(s) Supporting Document(s) ID Date Data Source [id number] 01/11/2021 01:17:27 PM [facility] Name Value Range Interpretation Code Description Data Belinda rce(s) Supporting Document(s) Ammonia [Moles/volume] in Plasma 28 umol/L 16-60 [facility] ID Date Data Source [id number] 01/11/2021 01:14:17 PM [facility] Name Value Range Interpretation Code Description Data Belinda rce(s) Supporting Document(s) Lactate [Moles/volume] in Serum or Plasma 1.4 mmol/l 0.5-2.2 [facility] ID Date Data Source [id number] 01/14/2021 08:02:38 AM [facility] Cmnt XXX-Imp : NoneMicroorganism XXX Cult : 30,000 col/mlEscherichia coliGreater than 100,000 col/mlStreptococcus mitis group20,000 col/mlEnterococcus speciesATTENTION This species is always resistant to cephalosporins, aminoglycosides(alone), clindamycin, trimethoprim, and trimethoprim-sulfamethoxazole. Full workup of above organism(s) has been requested byDr. Elba Mcgee on 01/13/21 Name Value Range Interpretation Code Description Data Belinda rce(s) Supporting Document(s) ID Date Data Source [id number] 01/11/2021 01:24:28 PM [facility] Name Value Range Interpretation Code Description Data Belinda rce(s) Supporting Document(s) Procalcitonin [Mass/volume] in Serum or Plasma 24.13 ng/mL <0.10 [facility] (NOTE) < 0.25 ng/mL Bacterial infec [...] to sepsis/septic shock. ID Date Data Source [id number] 01/11/2021 06:22:08 PM [facility] Name Value Range Interpretation Code Description Data Belinda rce(s) Supporting Document(s) Magnesium [Mass/volume] in Serum or Plasma 2.0 mg/dL 1.6-2.6 [facility] ID Date Data Source [id number] 01/11/2021 06:22:08 PM [facility] Value Range Interpretation Code Description Data Belinda rce(s) Supporting Document(s) Phosphate [Mass/volume] in Serum or Plasma 3.9 mg/dL 2.5-4.5 [facility] ID Date Data Source [id number] 01/11/2021 01:27:59 PM [facility] Value Range Interpretation Code Description Data Belinda rce(s) Supporting Document(s) Color of Urine [facility] Clarity of Urine [facility] Specific gravity of Urine by Refractometry automated 1.009 1.003 -1.030 [facility] pH of Urine by Automated test strip 6.0 5.0-8.0 [facility] Protein [Mass/volume] in Urine by Automated test strip 30 mg/dL Neg [facility] A [facility] Glucose [Mass/volume] in Urine by Automated test strip Neg [facility] Ketones [Mass/volume] in Urine by Automated test strip Neg [facility] Bilirubin.total [Presence] in Urine by Automated test strip Negative [facility] Hemoglobin [Presence] in Urine by Automated test strip Neg ative [facility] Leukocyte esterase [Presence] in Urine by Automated test strip Negative [facility] Nitrite [Presence] in Urine by Automated test strip Negati ve [facility] Leukocytes [#/area] in Urine sediment by Automated count 94 /HPF 0 -5 [facility] Erythrocytes [#/area] in Urine sediment by Automated count 8 /HPF 0-3 H [facility] Leukocyte clumps [#/area] in Urine sediment by Automated count None [facility] Bacteria [#/area] in Urine sediment by Automated count Non e [facility] Mucus [#/area] in Urine sediment by Microscopy low power field None [facility] Crystals.amorphous [#/area] in Urine sediment by Microscopy high power field None [facility] ID Date Data Source [id number] 01/11/2021 11:00:17 AM [facility] 5.8Serum levels of PSA should not be int erpreted as absolute evidence of the presence or absence of Cancer. Results obtained with different methods cannot be used interchangeably. This method is manufactured by [employer] and is an electrochemiluminesence immunoassay. Name Value Range Interpretation Code Description Data Belinda rce(s) Supporting Document(s) Leukocytes [#/volume] in Blood by Automated count 19.4 10*3/uL 4-10 [facility] Erythrocytes [#/volume] in Blood by Automated count 3.07 10*6/uL 4.6- 6.1 L [facility] Hemoglobin [Mass/volume] in Blood 9.1 g/dL 13.5-18 L [facility] Hematocrit [Volume Fraction] of Blood by Automated count 26.8 % 4 1-53 L [facility] Erythrocyte mean corpuscular volume [Entitic volume] by Auto mated count 87.2 fL 80-96 [facility] Erythrocyte mean corpuscular hemoglobin [Entitic mass] by Automated count 29.5 pg 27-33 [facility] Erythrocyte mean corpuscular hemoglobin concentration [Mass/volume] by Automated count 33.8 g/dL 32.0-36.0 [facility] width [Ratio] by Automated count 16.2 % 11.5-14.5 [facility] Platelets [#/volume] in Blood by Automated count 438 10*3/uL 150-400 [facility] Differential cell count method - Blood [facility] Neutrophils/100 leukocytes in Blood by Automated count 86 % [facility] Lymphocytes/100 leukocytes in Blood by Automated count 6 % [facility] Monocytes/100 leukocytes in Blood by Automated count 6 % [facility] Eosinophils/100 leukocytes in Blood by Automated count 0 % [facility] Basophils/100 leukocytes in Blood by Automated count 2 % [facility] Neutrophils [#/volume] in Blood by Automated count 16.93 10*3/uL 1.8- 7.0 H [facility] Lymphocytes [#/volume] in Blood by Automated count 1.07 10*3/uL 1.2-4 .0 L [facility] Monocytes [#/volume] in Blood by Automated count 1.11 10*3/uL 0-0.8 H [facility] Eosinophils [#/volume] in Blood by Automated count 0.02 10*3/uL 0-0.5 [facility] Basophils [#/volume] in Blood by Automated count 0.30 10*3/uL 0-0.2 [facility] Nucleated erythrocytes/100 leukocytes [Ratio] in Blood by Automated count 0 /100{WBCs} 0-0 [facility] ID Date Data Source [id number] 01/11/2021 12:26:47 PM [facility] 5.8Serum levels of PSA should not [...] (BCG) dye binding method 3.0 g/dL 3.5-5.2 [facility] Bil[facility].total [Mass/volume] in Serum or Plasma 0.4 mg/dL <1.2 [facility] Calcium [Mass/volume] in Serum or Plasma 14.0 mg/dL 8.6-10.0 [facility] Results called to and read back by QUINTEN ASHBY RN [id number] Chloride [Moles/volume] in Serum or Plasma 89 mmol/L 98-107 L [facility] Creatinine [Mass/volume] in Serum or Plasma 1.25 mg/dL 0.70-1.20 [facility] Glucose [Mass/volume] in Serum or Plasma 118 mg/dL 70-140 [facility] Alkaline phosphatase [Enzymatic activity/volume] in Serum or Plasma 153 U/L 40-129 [facility] Potassium [Moles/volume] in Serum or Plasma 3.5 mmol/L 3.4-5.1 [facility] Hemolyzed Protein [Mass/volume] in Serum or Plasma 7.2 g/dL 6.4-8.3 [facility] Sodium [Moles/volume] in Serum or Plasma 133 mmol/L 136-145 L [facility] Aspartate aminotransferase [Enzymatic activity/volume] in Serum or Plasma 42 U/L <40 H [facility] Hemolyzed Urea nitrogen [Mass/volume] in Serum or Plasma 21 mg/dL 8-23 [facility] Osmolality of Serum or Plasma by calculation 280 mosm/kg 275-300 [facility] Creatinine/Urea nitrogen [Mass Ratio] in Serum or Plasma 17 [facility] Bicarbonate [Moles/volume] in Serum 19 mmol/L 22-29 L [facility] Alanine aminotransferase [Enzymatic activity/volume] in Seru m or Plasma 16 U/L <41 [facility] Anion gap 3 in Serum or Plasma 25 mmol/L 8-15 H [facility] Glomerular filtration rate/1.73 sq M pre dicted among non-blacks [Volume Rate/Area] in Serum or Plasma by Creatinine-based formula (MDRD) 61 mL/min/1.73m2 >60 [facility] Glomerular filtration rate/1.73 sq M pre dicted among blacks [Volume Rate/Area] in Serum or Plasma by Creatinine-based formula (MDRD) 71 mL/min/1.73m2 >60 [facility] ID Date Data Source [id number] 01/11/2021 12:26:47 PM EDT [facility] 5.8Serum levels of PSA should not be int erpreted as absolute evidence of the presence or absence of Cancer. Results obtained with different methods cannot be used interchangeably. This method is manufactured by [employer] and is an electrochemiluminesence immunoassay. Name Value Range Interpretation Code Description Data Belinda rce(s) Supporting Document(s) Prostate Specific Ag Free [Mass/volume] in Serum or Plasma 0.8 ng/mL [facility] 13.9 ID Date Data Source [id number] 01/02/2021 04:46:38 PM EDT [facility] Name Value Range Interpretation Code Description Data Belinda rce(s) Supporting Document(s) Progress Note [facility] THXCNp1xFmIZYxVz99/ZZRgjENArc8PoMZlbCNt7WHvdXTKzZ0QiOKP1qC3eAPV5JGnNUoSlNnJxULI7 lbm [file] 3/7ohp6Cl+q2/FP7Ah0idh/julián/Dk7l4+bLVns+HJ+w3sxl0FJfz/tEafLvMW++NL8TH7Hq4ePn8vf/P [file] E6J7QfL6NnG5HjEOS1QoBvIX6XHf6EUhO3MOE5sIUhAe3CRyK3MSYTBbCzUQ0LXAf= ID Date Data Source [id number] 12/22/2020 09:06:57 PM EDT [facility] Name Value Range Interpretation Code Description Data Belinda rce(s) Supporting Document(s) Progress Note [facility] LGTSYv5wSxDJGzWi60/BWKccQWBfv7KxNKnhWQw1PGgsECJvO7YaCHU3jX3sHXP3TCcFVqJkYmOfFDH6 lbm [file] [employer]+K1QnFHmJ0Lj7apntal8otSfl0YAnVxN0ycpPqzcs2MmgkRyvn92Z6EU4eJx9U9PLq5+j1/lgF5jq [file] TW8HSDKLC0NIRb== ID Date Data Source [id number] 12/22/2020 09:06:52 PM EDT [facility] Name Value Range Interpretation Code Description Data Belinda rce(s) Supporting Document(s) Progress Note [facility] TBPLBs9bUaPSWkEy42/SHWbaPYQys8ZlMLojFEv6CXgsTPRrY1ZmMXY4xF5fGMS8CClIDfZeOtNaGIE2 lbm [file] gXlN8Y92NboxlduUYuWeSOzqLcW5P0QJA1FqUDAeG3QGmDk7u6MAJgbgPbR3PXIE4NyEpaMuySrV/+MEJÍA [file] AgICAgICAgICAgICAgICAgICAgICAgICAgICAgICAg NQRhFHChQULgKRXbBCVlIMRyUBVgUXGsROClIWQiBXXbBDNtQLRqCHEqVCYsXD6ZMAAlCTAkGYYqBIYs ICAgICAgICAgICAgICAgICAgICAgICAgICAgICAgICAgICAgICAgICAgICAgICAgICAgICAgICAgICAg UZYwNFWaZWOoWMUcVEEmELWoNJCnVFPeKNSyBU6ZOI AgICAgICAgICAgICAgICAgICAgICAgICAgICAgICAgICAgICAgICAgICAgICAgICAgICAgICAgICAgIC FfEKVaZIQaFKKgTAFkEOVuPOBbLPNoTKGdZEEbIQMwXVJiUOGoHG5UQBEsHFKoGZRrPJFfXAEvGWNlHM AgICAgICAgICAgICAgICAgICAgICAgICAgICAgICAg GSBrXDYtARHaVCQrTMOvKBCeKQEuUAPsREMyLGYuXLIdGHUaMXTvWGPtAETsIYUoIT7VFJTzIJNjHDTh ICAgICAgICAgICAgICAgICAgICAgICAgICAgICAgICAgICAgICAgICAgICAgICAgICAgICAgICAgICAg ICAgICAgICAgICAgICAgICAgICAgICAgICAgICAgIA 0KICAgICAgICAgICAgICAgICAgICAgICAgICAgICAgICAgICAgICAgICAgICAgICAgICAgICAgICAgIC PfGDIhMUMlTOQkKHAkBNUsAOIcDHBySFSaAVGaBBKrOWOnEXRcOCZpJK3YVELzNYRcBDIiWJXaSHGcDM AgICAgICAgICAgICAgICAgICAgICAgICAgICAgICAg OCWhAGSaQVUaERIoRIYtMOHwUCOgPUDuPWPqJDZkRVTbVQOeANGlLLHsFGVcGSGsNLMgLJ4TKESdBKEx ICAgICAgICAgICAgICAgICAgICAgICAgICAgICAgICAgICAgICAgICAgICAgICAgICAgICAgICAgICAg ICAgICAgICAgICAgICAgICAgICAgICAgICAgICAgIC HiTD9LHZYxKIJyNRDxDAUsCVSpCVMnZZXgIHBsFAKzCFHjUEEyDRUoKDVoEHNqZLSuFFToECWlOUNkQA XwPAZmEIJzJJRaBXRoLBOpYNLyQMFeSLNxCUNjLEVmGEWtVAAxVJEtOPAbMQ0SPIEqKDLiYHAoEYLcOG AgICAgICAgICAgICAgICAgICAgICAgICAgICAgICAg PIDcGYSgNRGfLNGhUBDrYQCbEYYvEGMgJDEmEDQfBOStMRRqUHYqYEWmQVXlXINiKPFjUBXzHD7TYH37 hIOnw2H9BGRpGA7qlol/Pj0CQDpegfPnoNJdCW5QRzYkHX1eak1TDvPxMP7frl6YFDaOEqRtX4Y2tQOb YYEaFAECYqIiG90rUYxlXt06KUbwAPPgBgSqEYr8Vz 2DJiEiK8srYNVoVsS8SMLjVmKoILfbNY8Yu8ErhBBgNFi+Sa5NOG1ja5IxOKegLDAeSK4kqu6EXCgLMu WwU4OrzdQ1XGWlMNIuEn7AFTNeVKZriLPcRQRbMOBKXqGsJ2KtbO25ZMVMBz1+DQplbmRvYmoNCjIwID Fah4UkBKp4XS5JWUCqBNw1uVVgYDFzC8Wxc6DtRd46 FJDqUzluBGMzOXSPEIBobbWjKG8eHWSuHN7pND7qYZGtIDVsHjGzRFDBLL7MGMPsHDHcyJYnPJUkNYUL BC3IAQfqUZA8MNAxtyIcdVZkDIbvGL7VRWZiuxBsLBpcGZSNNHt+Vf5NYF6td1TnNRjuLKMcSW4msp7X BXeVBjRgS6Q7iIMuW0S3PFdrSp6ITAZqXVRxLWwvWM IYYDhfTY6PUN3pwyJ5GQ5YsVPqPVVnJPUlyHIuODs0U87anAXwDGuzPR8BEZS+Immanuel+Ui4GFDDgOKUsXC PrMsRmIDRVYcStL6FoF9QEy0GdV9MwBY43tFtmpaQdMEfvIL7CVW4hTAAcSQKYDR0XvPOhxQ6sxkVcVM NoJFWJSgHxK92bqZYkOGTzKDB1KLXeYa6HYIMbW8Wg jeYsiPoxmiOvSQFdIORUUR1JXThbtcZgtFDnkMxkRA35vGhaKT2VIy5WVmUwSD2sst9YsZBePa6VRYZs Bo9GOWMlUZVtYJJcRUC2NHNrEcGcDZikBQFpRZVhVVU7FHTjODIlXI9AGbCuNFZySUB5FoQcLVVsSWPm tn0QQJDzSCZvWYL9QFFkABCbBNAjJTjjKXDdSLPuBD M2ZIGzEWUbRD9ZTzIrAURjDXScKUcdNEWuLQIvgd2MQOFoHCZrMMQ9JSRpRZFpRFGuYNczSVMwYVLjWK MbZLVaCLUhEK9XQzXpMBHsCXW2VBFcXMXrKVFosn2CNOFqJHTcVwebNdYyLLHhOOXwWDzqCIBuFVSzGM b5VKNdJTKtLW9KUxSrTUDeGQAcHVZfVPRjDJNtih2V USApKDJqGHP9NsFyEYAhKZTzUPeyOAYxYES4BqF2EHZiAWDqUN4QBmXtEBAbOBH7ZJPuBVBtRVQvga3V GEKnSTOqGbM0UxHnWIZaQBMsPXeiOXNvPJU0XcxvEHFnYDTbEG8FYhZpWVKhZJX1WrrhUNOtWPQkkk8D MSGfZHRkEngeYOVbUMWlZTOrMSjkCNLlICC5Mbq6GG LqEHElTU5VZdFuUIPiJWi1GXymLBTiYINrlp9IXSBrKRBwACU4HqOoZRUnGDGxYOi8ooRrtRUqOOt6OM 2RL3MnqoWwOoGZKb0Rs824PGLuSWPfSw3IU2hdGp7uLOVtUSPYMa1UZDd2MRD4JVD2UXyaEomlLUqgAb L7B5J1ZDbiYNEjVHGmNrJ+IDr5PaNfZPrgUUB1M1Er SYO5NzyyXOEbRPS5RUPhFcCuZn6sITWUIh6+CBokkCPncNggQBUHWwW9SAL7QXorSUUMOf6W ID Date Data Source [id number] 12/20/2020 11:50:25 AM EDT [facility] Name Value Range Interpretation Code Description Data Belinda rce(s) Supporting Document(s) Leukocytes [#/volume] in Blood by Automated count 12.7 10*3/uL 4-10 [facility] Erythrocytes [#/volume] in Blood by Automated count 3.19 10*6/uL 4.6- 6.1 L [facility] Hemoglobin [Mass/volume] in Blood 9.8 g/dL 13.5-18 L [facility] Hematocrit [Volume Fraction] of Blood by Automated count 29.3 % 4 1-53 L [facility] Erythrocyte mean corpuscular volume [Entitic volume] by Auto mated count 91.9 fL 80-96 [facility] Erythrocyte mean corpuscular hemoglobin [Entitic mass] by Automated count 30.9 pg 27-33 [facility] Erythrocyte mean corpuscular hemoglobin concentration [Mass/volume] by Automated count 33.6 g/dL 32.0-36.0 [facility] width [Ratio] by Automated count 14.5 % 11.5-14.5 [facility] Platelets [#/volume] in Blood by Automated count 428 10*3/uL 150-400 [facility] Differential cell count method - Blood [facility] Neutrophils/100 leukocytes in Blood by Automated count 87 % [facility] Lymphocytes/100 leukocytes in Blood by Automated count 6 % [facility] Monocytes/100 leukocytes in Blood by Automated count 6 % [facility] Eosinophils/100 leukocytes in Blood by Automated count 0 % [facility] Basophils/100 leukocytes in Blood by Automated count 1 % [facility] Neutrophils [#/volume] in Blood by Automated count 11.06 10*3/uL 1.8- 7.0 [facility] Lymphocytes [#/volume] in Blood by Automated count 0.82 10*3/uL 1.2-4 .0 L [facility] Monocytes [#/volume] in Blood by Automated count 0.80 10*3/uL 0-0.8 [facility] Eosinophils [#/volume] in Blood by Automated count 0.01 10*3/uL 0-0.5 [facility] Basophils [#/volume] in Blood by Automated count 0.06 10*3/uL 0-0.2 [facility] Nucleated erythrocytes/100 leukocytes [Ratio] in Blood by Automated count 0 /100{WBCs} 0-0 [facility] ID Date Data Source [id number] 12/20/2020 12:37:00 PM EDT [facility] Name Value Range Interpretation Code Description Data Belinda rce(s) Supporting Document(s) Albumin [Mass/volume] in Serum or Plasma by Bromocresol green (BCG) dye binding method 3.4 g/dL 3.5-5.2 [facility] Bil[facility].total [Mass/volume] in Serum or Plasma 0.4 mg/dL <1.2 [facility] Calcium [Mass/volume] in Serum or Plasma 11.5 mg/dL 8.6-10.0 [facility] Chloride [Moles/volume] in Serum or Plasma 96 mmol/L 98-107 [facility] Creatinine [Mass/volume] in Serum or Plasma 1.28 mg/dL 0.70-1.20 [facility] Glucose [Mass/volume] in Serum or Plasma 146 mg/dL 70-140 [facility] Alkaline phosphatase [Enzymatic activity/volume] in Serum or Plasma 144 U/L 40-129 [facility] Potassium [Moles/volume] in Serum or Plasma 3.6 mmol/L 3.4-5.1 [facility] Protein [Mass/volume] in Serum or Plasma 6.8 g/dL 6.4-8.3 [facility] Sodium [Moles/volume] in Serum or Plasma 134 mmol/L 136-145 L [facility] Aspartate aminotransferase [Enzymatic activity/volume] in Serum or Plasma 30 U/L <40 [facility] Urea nitrogen [Mass/volume] in Serum or Plasma 10 mg/dL 8-23 [facility] Osmolality of Serum or Plasma by calculation 280 mosm/kg 275-300 [facility] Creatinine/Urea nitrogen [Mass Ratio] in Serum or Plasma 8 [facility] Bicarbonate [Moles/volume] in Serum 23 mmol/L 22-29 [facility] Alanine aminotransferase [Enzymatic activity/volume] in Seru m or Plasma 22 U/L <41 [facility] Anion gap 3 in Serum or Plasma 15 mmol/L 8-15 [facility] Glomerular filtration rate/1.73 sq M pre dicted among non-blacks [Volume Rate/Area] in Serum or Plasma by Creatinine-based formula (MDRD) 59 mL/min/1.73m2 >60 L [facility] Glomerular filtration rate/1.73 sq M pre dicted among blacks [Volume Rate/Area] in Serum or Plasma by Creatinine-based formula (MDRD) 69 mL/min/1.73m2 >60 [facility] ID Date Data Source [id number] 12/20/2020 12:47:30 PM [facility] Value Range Interpretation Code Description Data Belinda rce(s) Supporting Document(s) Prostate Specific Ag Free/Prostate specific Ag.total i n Serum or Plasma 3.4 ng/mL <4.0 [facility] Serum levels of PSA should not be interp reted as absolute evidence of the presence or absence of Cancer. Results obtained with different methods cannot be used interchangeably. This method is manufactured by [employer] and is an electrochemiluminesence immunoassay. ID Date Data Source [id number] 12/15/2020 05:14:47 PM [facility] Value Range Interpretation Code Description Data Belinda rce(s) Supporting Document(s) Progress Note [facility] AACATz3iRbLJLnIx87/RRZqtXUDon8VtNEyuUNy2CXzkDCVsP3PwUPK2lB3hGQU8KGaQRkFhOyUfTAX2 lbm [file] Rg0K ID Date Data Source [id number] 12/15/2020 07:01:26 AM EDT [facility] Name Value Range Interpretation Code Description Data Belinda rce(s) Supporting Document(s) Progress Note [facility] THAVZu2sCkMPJrUd08/TQCanPRBqi2MeBWvbZFv2VJhmLZInR4KhHVH3nM8lWFP7XMpIJhWfDzMnLOP5 lbm [file] AY/4J38j4b41NeTC2GHDCu/HM1a+i6a8A54E+S5c78 f4Zrykr2p8izqsZLvAkxXH6gopHYwZxXZXgqUJqr32bohau7ILo29B4oDO0lA9rHaohf1ZQIA/hq9Wfr bee raiser+DiW4bwuXRNsRJls2OoA0vRzIHKkzvCKmalsX9HtcJlcNynHQQE8NhX+OV+4DXgLeoGBIHRgFe+Xo [file] WnJ5RZSzSZMyFzB9KFPwNifzYtNpPD5JWw7EYiY7SDL2xFZkEi9BHrDkJFqPRnLrFS8LEDn= ID Date Data Source [id number] 12/15/2020 07:01:21 AM EDT [facility] Name Value Range Interpretation Code Description Data Belinda rce(s) Supporting Document(s) Progress Note [facility] NCXFIw7iPoQYWwDi29/HOOkwJYGjt5KwYOjsZBh9BVraWCYlU2KhVPW8jN4yOAP0UNpHNkLfRiEyPHK0 lbm [file] ICAgICAgICAgICAgICAgICAgICAgICAgICAgICAgICAgICAgICAgICAgICAgICAgICAgICAgICAgICAg ICAgICAgICAgICAgICAgDQogICAgICAgICAgICAgIC AgICAgICAgICAgICAgICAgICAgICAgICAgICAgICAgICAgICAgICAgICAgICAgICAgICAgICAgICAgIC AgICAgICAgICAgICAgICAgICAgICAgICAgDQogICAgICAgICAgICAgICAgICAgICAgICAgICAgICAgIC AgICAgICAgICAgICAgICAgICAgICAgICAgICAgICAg ICAgICAgICAgICAgICAgICAgICAgICAgICAgICAgICAgICAgDQogICAgICAgICAgICAgICAgICAgICAg ICAgICAgICAgICAgICAgICAgICAgICAgICAgICAgICAgICAgICAgICAgICAgICAgICAgICAgICAgICAg ICAgICAgICAgICAgICAgICAgDQogICAgICAgICAgIC AgICAgICAgICAgICAgICAgICAgICAgICAgICAgICAgICAgICAgICAgICAgICAgICAgICAgICAgICAgIC AgICAgICAgICAgICAgICAgICAgICAgICAgICAgDQogICAgICAgICAgICAgICAgICAgICAgICAgICAgIC AgICAgICAgICAgICAgICAgICAgICAgICAgICAgICAg ICAgICAgICAgICAgICAgICAgICAgICAgICAgICAgICAgICAgICAgDQogICAgICAgICAgICAgICAgICAg ICAgICAgICAgICAgICAgICAgICAgICAgICAgICAgICAgICAgICAgICAgICAgICAgICAgICAgICAgICAg ICAgICAgICAgICAgICAgICAgICAgDQogICAgICAgIC AgICAgICAgICAgICAgICAgICAgICAgICAgICAgICAgICAgICAgICAgICAgICAgICAgICAgICAgICAgIC AgICAgICAgICAgICAgICAgICAgICAgICAgICAgICAgDQogICAgICAgICAgICAgICAgICAgICAgICAgIC AgICAgICAgICAgICAgICAgICAgICAgICAgICAgICAg ICAgICAgICAgICAgICAgICAgICAgICAgICAgICAgICAgICAgICAgICAgDQogICAgICAgICAgICAgICAg ICAgICAgICAgICAgICAgICAgICAgICAgICAgICAgICAgICAgICAgICAgICAgICAgICAgICAgICAgICAg USYuBTHzIKXdFVMnETXrMDVlIORbURCzAWf6B5dfLS NsAFEeRA8nUPn5Ae1+SWuVGmVmKKX7eqInyF3LEO2py3WvKDusUIJss6OcEDx7US5WODUdRQicSZ9BAW hexi7MBTEqBVKsiMERt0hvCgGaKJP7LLUeCsieMW0RCMGgQ0woxwWcSIIoSUXSAZrjCSBIHJZtSHBuEu EdMgNsOLCtRZUsDDABVLL0ZETtMrBgYQYrCYEaNcJf SJPNCV1DWcHbR2ZqgT06IGtNEh9+CLvqelKjViqTTxQ8AZXqb9ZmDMw1OC0WGXKgPcbbd7AaCtmfECMT LAwpMK1YYVG5GUU8BPQwJa3MLPQbC281tzQmDK2DFl2LRvQjQX2mfw4WFtokDJGfGbzPWjv3UMeyQY3G oXBbBTmQbt4rfzZaztVAz7EmkkKolZKAZU4hNHZJGX chsIAvZYOsWQ0DFBE4YMtnBkvkIlQlYCFiEPt3AMQLGQtWFwMaO1Dse3PcUcB0FPLwPvQlXGkhMCPyBb Q6DM42iUqfLR2DNGJdENPfZW86XZK2MSYcSq8ISx2BOuYkJA3zwm4RQcPaIE4kzi4ERAvDHcVkF2L3eU LyV5Wnca42QP0YyHE0sNHgET3FvZ5fZR4Yr0MeGHCb BzCrLTZnZFGcMWPgVPLtMiGvVD1RDALnMiJooNTvIJQxPDO8NVKgXtL9OHZvYQ5RAMEkCZK6IA4HRK9Y MouzD2VKCAngqBctZbDESNT/CIFUPNPWFDxfUQScO49JW6YJXKkUNasrDFnLIublJo4wKTj+Zq5YSX1g x9TnMLzaORXyPQ2uvk8HFMgXKkUiY6T1rDCzE9O5TM caCy1YVKTbJWApWqXvLJYSKYraCH1RYI9argD6FJ6BrWWsNUApQGDbmMFzDHi1B24mwREgJRnnSH1XJL A+Immanuel+Zv7ZOJSjYGIxHWSmUeZzNIDMMxYtO4CdO0GIs0WwC4XjCZ42dBiukaXgIMhxSR0WOU0zWBHdCJ DVRY0OsCCqjD7lacOwWdWxOUEPWgZhM41tpYJyUIAf MQY5HNJqXd6RJZLaY9SlhbHokSnbxoCkGMNhMMPYPE1TEVwqxlMgfEFgnWamKK51gZvaJN0TUj6GFvSp XS0vml6VgLOmTp1EKDF2FZ8VBAGzCDCjCSEoPHY5WRTvKtAkYKvtMMVqEADbGEN2WSAsPADvNB0ZSfTg GSPuKRC8RAUvFWWaJBDfoz2FUVAtWUD7WJXyZNLyCS FkAWQsESvzKCRqTNKuRQF1WMXoWBKaUY3URwOtCRNoYDG3SgtlPIOgTPFhyt7TREDlOHN2MnTyZPInPS KlIJWnRRzoFDRtDOJ0SdI8FKQkJQXsTK7CTiNuKTSxMHbgLtHtVSRdCFPjrm7RBMLsSDPdBGO9FiYmAC MaSAQbJGolXVTeCAJrWlV0VTCkACPjYP4SVdWyRJBc PRS1HotiZAZxZPYesu6JSSUtNDKtJRtaXwMtWNRrLZAvDKlxOIQsSPW7REGnFYIyLCQfJM1WDpBdUALj DZk7DrBuODQlQOZshf8NUNBvBDKuTEFnTYGsUKIiIWTdKHsdPNXlSALzBCQ2ODFbYNIuPS9HNfHtDCOo VuT8ExFaGYOrBGMzat9KYDZgRFMhPKRpRKRlZELwLH JhTYbsWXXbWVU2GTI7ZPVxDZDjSE1YBxRhTKUpSagrSYDtJHQdSLZigy6IFHGxEUTcDaRdAgQqGVQpTN JhTVubIOGdZYD0KFgaBZIdMPKcIX9VNiKkHKYeEng5JppfQAWlQNQzwk2TKFRyRXDlUMb9WqNsBANqCW BlIQhoCTVcYFB6MQOnWEGwUQZyRF8XTgHxCUTjIcWp WiOwUHJcUXUgga3MMVFbOUPpYQUnGVHoNZPqWZDaGXixYBYeUDHuXxAkYEPaNGQkLP6JWrRxVAYmOSB0 ExInCXQhHXLdsj2IYVGjYRU4BvF6NMBaYYGiIKLgHCvyDPRyHYGhDSI0VGPdOMPhEM4JItYqDIXtQSN8 WrHsOCCaIAUrim6GDJMcDQQ6ZtUkNYJvMLYkHSHbSL ljVKEtUJFnMnFfJJUtZJGzUV8ABpEnPJFoNDM6QFVsBOZaVTFljx6WEAKsIIQ1BUR7AKOmMSExBLDxVJ kzSUTnZEJ7Aqt5KWXfPMBvHA6AMnIkUYAhGKD7XOJcJCEaFLTdjg3LLKHfEDB4BcX0LEUgNFLtQBTxJT k0ztXsyMJlMPd5UE0ZH5KuyaPwNLJIKc5Zc025XPR3 CTNvQz4DQ1nhJv8eTAMkDWSVUp1MJCe1GTN8VsWdLXUuTUH4NQwhJAd3Y1GdRAi8IeP2YlJmCCO+IDww DDLyVyBxBiD3PtQ8UINsSIzkNwJ4MnTmNbYsXrTsWz5bEXGTLk2+[id number] QGSHGr5L ID Date Data Source [id number] 12/14/2020 12:57:39 PM EDT [facility] XR ABDOMEN AP SUPINE AND AP ERECT [id number] INAL RESULTInterpreted by:SANTOSH PereiraNDICATION: abdominal pain with [...] rce(s) Supporting Document(s) ID Date Data Source [id number] 12/14/2020 11:06:21 AM EDT [facility] Name Value Range Interpretation Code Description Data Belinda rce(s) Supporting Document(s) Leukocytes [#/volume] in Blood by Automated count 10.0 10*3/uL 4-10 [facility] Erythrocytes [#/volume] in Blood by Automated count 3.52 10*6/uL 4.6- 6.1 L [facility] Hemoglobin [Mass/volume] in Blood 11.2 g/dL 13.5-18 L [facility] Hematocrit [Volume Fraction] of Blood by Automated count 32.8 % 4 1-53 [facility] Erythrocyte mean corpuscular volume [Entitic volume] by Auto mated count 93.1 fL 80-96 [facility] Erythrocyte mean corpuscular hemoglobin [Entitic mass] by Automated count 31.7 pg 27-33 [facility] Erythrocyte mean corpuscular hemoglobin concentration [Mass/volume] by Automated [facility] 34.0 g/dL 32.0-36.0 [facility] width [Ratio] by Automated count 14.4 % 11.5-14.5 [facility] Platelets [#/volume] in Blood by Automated count 506 10*3/uL 150-400 [facility] Differential cell count method - Blood [facility] Neutrophils/100 leukocytes in Blood by Automated count 70 % [facility] Lymphocytes/100 leukocytes in Blood by Automated count 18 % [facility] Monocytes/100 leukocytes in Blood by Automated count 11 % [facility] Eosinophils/100 leukocytes in Blood by Automated count 0 % [facility] Basophils/100 leukocytes in Blood by Automated count 1 % [facility] Neutrophils [#/volume] in Blood by Automated count 7.02 10*3/uL 1.8-7 .0 H [facility] Lymphocytes [#/volume] in Blood by Automated count 1.79 10*3/uL 1.2-4 .0 [facility] Monocytes [#/volume] in Blood by Automated count 1.07 10*3/uL 0-0.8 H [facility] Eosinophils [#/volume] in Blood by Automated count 0.00 10*3/uL 0-0.5 [facility] Basophils [#/volume] in Blood by Automated count 0.08 10*3/uL 0-0.2 [facility] Nucleated erythrocytes/100 leukocytes [Ratio] in Blood by Automated count 0 /100{WBCs} 0-0 [facility] ID Date Data Source [id number] 12/14/2020 12:03:22 PM EDT [facility] Name Value Range Interpretation Code Description Data Belinda rce(s) Supporting Document(s) Albumin [Mass/volume] in Serum or Plasma by Bromocresol green (BCG) dye binding method 3.7 g/dL 3.5-5.2 [facility] Bilirubin.total [Mass/volume] in Serum or Plasma 0.3 mg/dL <1.2 [facility] Calcium [Mass/volume] in Serum or Plasma 10.7 mg/dL 8.6-10.0 H [facility] Chloride [Moles/volume] in Serum or Plasma 96 mmol/L 98-107 L [facility] Creatinine [Mass/volume] in Serum or Plasma 1.13 mg/dL 0.70-1.20 [facility] Glucose [Mass/volume] in Serum or Plasma 113 mg/dL 70-140 [facility] Alkaline phosphatase [Enzymatic activity/volume] in Serum or Plasma 114 U/L 40-129 [facility] Potassium [Moles/volume] in Serum or Plasma 3.3 mmol/L 3.4-5.1 L [facility] Protein [Mass/volume] in Serum or Plasma 7.1 g/dL 6.4-8.3 [facility] Sodium [Moles/volume] in Serum or Plasma 136 mmol/L 136-145 [facility] Aspartate aminotransferase [Enzymatic activity/volume] in Serum or Plasma 38 U/L <40 [facility] Urea nitrogen [Mass/volume] in Serum or Plasma 13 mg/dL 8-23 [facility] Osmolality of Serum or Plasma by calculation 283 mosm/kg 275-300 [facility] Creatinine/Urea nitrogen [Mass Ratio] in Serum or Plasma 12 [facility] Bicarbonate [Moles/volume] in Serum 22 mmol/L 22-29 [facility] Alanine aminotransferase [Enzymatic activity/volume] in Seru m or Plasma 14 U/L <41 [facility] Anion gap 3 in Serum or Plasma 18 mmol/L 8-15 H [facility] Glomerular filtration rate/1.73 sq M pre dicted among non-blacks [Volume Rate/Area] in Serum or Plasma by Creatinine-based formula (MDRD) 69 mL/min/1.73m2 >60 [facility] Glomerular filtration rate/1.73 sq M pre dicted among blacks [Volume Rate/Area] in Serum or Plasma by Creatinine-based formula (MDRD) 80 mL/min/1.73m2 >60 [facility] ID Date Data Source [id number] 12/14/2020 12:10:23 PM EDT [facility] Name Value Range Interpretation Code Description Data Belinda rce(s) Supporting Document(s) Prostate Specific Ag Free/Prostate specific Ag.total i n Serum or Plasma 4.3 ng/mL <4.0 [facility] Serum levels of PSA should not be interp reted as absolute evidence of the presence or absence of Cancer. Results obtained with different methods cannot be used interchangeably. This method is manufactured by [employer] and is an electrochemiluminesence immunoassay. ID Date Data Source [id number] 12/03/2020 07:40:58 AM EDT [facility] Name Value Range Interpretation Code Description Data Belinda rce(s) Supporting Document(s) Progress Note [facility] KTHAOb9qJaSCTyEl83/LJNnzIVHqw5ZiVYfwGJo3JHcxOHLmN8IoWIB4tK4jBZW5BZlCZbOxGwHwSGY6 lbm [file] PARTS REPRESENTATIVE++hRwYCli9EYPk6GQEResEpG6oWLcqLVpaRCj/f4 [file] 31mHE/o/M+Maria Fernanda+A/7soimmdt/uV1ltHoJzueOaE+h8e1Zs2XBDjbnYN1OndtghqmxZPwXx9lW/3KlP5z 0h/CYRnvf+cYqDgZ7pbq/Ar56L1vqh9AC3OH4O0gXH zGhYYE28LB3n+lUts7ZfwxWzU/zyWj0Of5bBbopMJSsCh1Nuo0e7IVmoDZ3sODlsPH3/KmQEwHFF+iCN ABDgRbqrEB8YhvlS1XdOe61A7upDaaieS+/HeS/84fcx42l+DjYMq1JgVoeHBqThr18sa2j9DSbMHFhB Bdjqu6v2/d5KfF6MvixK2/3a8nFEvDKHJFpcoVaTcf 65B/mCxtiPzY6z4Py+nBWHV5OD32IMia+U3dOJ6tsYSyG8RiXVC+E+G+U7JZxstdW7dk5CDFiBL80Elp 80K/2E5rK3hg/wmJX+wAZgCdz/CaA/P/AU3Y2N5pS+q6d2XvnK9dH0n+E/D3gS/k/cAkaLddm60HABaw AvzGT3PThDZo2kl/0o8eXSO8+LVgwKc0KK5AoA9CU4 S9emNJ59zSIpB5As1j+DfRnTYC0k4VLd47+l51SqB93lR+M4FO+dsd59yarCmFCBcmLdfbf/C/3RpmL8 UkEA6CoX7MVJwNy/Yi7K6EgQs3VojZeSC6ZL+aJcdr/hzs3EofgHjMBBor0MkB/rAgPCrF9x+IlIcZ6t U2VRHrRuFYOvyseju7Rt847E3W7K5HU4a0Q/dPo0R7 KwKPQO9Aq2w/3ft4/8F/rU/aUExfFnkg3MkBKrtf4Wo26jwi/+l/vyw/TB2h71b+p3+ubQbvGgN1EDLF yi9jIMl/BRENDA/iPpOd+X3++3vG9/Pq8guHIz2FH68xN7JyDhZJLzUo7ulJdB/XgBc7tYVN+W106L2zTGy [file] UEJWVTmdIE6HBF8sevR1BH3PaHKoXXGzDDKktCOrTMu7T89gcKMcOBjsAP8WSZP+Immanuel+Lh0XZRVmXYNs LTBlVyBuHPGVJnJbU2OcR7ZFy0ImD2XnAV12kIqwkjPdWJtfSI0WAM3cGEVfTVCGWG0UoLNzhU2bptKa RcBxEIUTLsDtH27cyGGrERDfCYBkFRToZe9SWROaU6 AmpwDgpZwzxwYeISXpUQONJY4MRNoohmWgjLSmtJqjRB08yOzlBZ0USw5DAvDgML9lkq2EfNUpLz7RPM HqKu6MLHPiWCJgHAViFDK3WKDpBkBoEYkpEIPnDWIvLWM6BCBkBGBzYS2EUlTbXHJxHWpiIXXbWDAzZV Euug3IZMNfUUO1LSr2GYZmUBNpRUQnFSumGTHdWJTj XPK3BDDaXEXkOK1IHdXcHYWgLEW0SFlsQBFpLHDfxu4AFDTqNTVqXII2QXFpUEJbAHXeXBwwITJjIGL3 RqAcRLQgERQnHU0ANkMfGKAkMPi6QJgjMVWhLIDnqv7QNGQnFXNeFjQsXiWjJMLcGAGwYJfxYVNtAYKm FQIuOLBmBFJfQD4COgNiWOFvMMZpEFwbQFCzVJEvrz 8AWKFzXVEpGJKjXSKnIHTyIGEoLOlsQDPmWVI5VTY6KTWsAHJpEX7TAwIdRZJzPBckNGfpKCRiVCNaly 9YNIKrIOX9ZES6ZOGmZZVrVIZmWBarQTVvVZS0TUn6AICeTMWwIX4ZTtAvVCJnRErvXYEnWKBcZSJfde 7XLYQyYTEpBWM1ZHAdGBNmGQVbSPkxLMJfPZQ9Rneo FIZtWQHqIU0VUpNnSEIkAQy7HBKbQNWkUCUgaw8UYHFrEPDnZZBwNuBqNXAlDFXdQNzhDVSjORYjTrX3 JPOxRHXtIH7QMvIeYZQiVmN4RWUvGXEmUYLdfp4JQVCtNPC6MofyYmPfSHDhDEVvWNacAABkCWJ5QFN0 HORlGDLiSG0RDhRzZRCnSFZ5RpsfXQSvDZKxmu2RBS KxUFK9SXJyWbWkVCKbKDSkRDgqEQTwQFL3ZhscADHtCVOwIL7CGlLpUOJwJIF1EmQmOZAoUAGvay4RSB TsLAN2ZdfmXCSaAWFwFXYsDCqfHFMoVXZ0HHsvOCNkACYkYA0GTcJgXYRxEWi9FAzgDOPeAOUnin3CUK KdUUL6TKq1XoUkFNGfWXDzPNxtSSYfIBV0MQG1XSTd EVAzCW1TXyLxVGZiQMh7PJPcHMEmHAXlmt3EwCSooMrwvv9DQWcGBc8TvDxnWAV9DMxhRt0wuMAoFDJt QZXXPz5FqyMvYCOdZXIAHTzyYWZaHJKeUybuMFOvRYfsGMY8QlVvWKGqXrIqQfF5LWGiVGJ3JyV5XAR5 LPQ2UKG1TRO1NoKhTEP9XBCdWcJdHuw1CoM4KgW+IF 0gDQo+Gn2Sc6ShitC6hlNnQCi4TBw2TD2STMLOC9PVBb== ID Date Data Source [id number] 12/01/2020 04:11:47 PM EDT [facility] MR LUMBAR SPINE WITH AND WITHOUT CONTRAS T [id number] RESULTInterpreted by:Savita Silva MD11/22/2020 4:48 PM MR LUMBAR SPINE WITH AND WITHOUT CONTRAST [id number] CLINICAL INFORMATION: rule out new fracture in [...] high-grade central canal stenosis. Mild right and gsep-rf-jtsnmbps left neural foraminal narrowing is seen.L5-S1: Pseudo [...] rce(s) Supporting Document(s) ID Date Data Source [id number] 12/01/2020 04:11:27 PM EDT [facility] MR THORACIC SPINE WITH AND WITHOUT CONTR AST [id number] RESULTInterpreted by:Savita Silva MDEXAMINATION: MR THORACIC SPINE WITH AND WITHOUT CONTRAST [id number] INDICATION: rule out new fracture in setting [...] rce(s) Supporting Document(s) ID Date Data Source [id number] 11/24/2020 02:35:09 PM [facility] Name Value Range Interpretation Code Description Data [facility] rce(s) Supporting Document(s) Progress Note [facility] ZGLZEr5nByFSRzZz36/HKVsrCBGqh9QnLExeSNf8BLabVMAtE7TnVQX3oL0oMBH4XRfGOxXbEcEpWrF2 lbm YiQauTLtJxAJElDkqLCyNyEEnbYjugbPSqNZ9JvKV1RGUgS34kUTFmKPYeI2HdXSQ1Jpp+Gk1DUMZumC GrBQ1PIonO0Z4jg4oUJr8tdT4kdXDOs2cwxohnKiMm68gIq5mAb9o9YpjTztfNTX7bXlf6SsoFv7+iZ0 d17iTt7C3jIsu9odrPlwk69gLkRFixEzQkTPHrYS0y 2onpkWQ8D8/+p0pZNMZczWdVNYSNYKR6bDJW5AfXrKkKn5IXapZDIz0QwkSEd+S4axlJQVwDZiwD8sWw OQoNd4wrI0G9aNdnyxv0uy/pNTcmM9zCfrxmQGa+DB6I1iPelAun9kSQ1Yn2VPgOjI0YtSuAUP2Poinu INKIBaygBW1irs0CM3OqGGy8YUoYNrjB298H4RiQbY IHJ8ocL0JkhCT8BsfYELlHiuVAmip9b/9C3FYaNywZKb0eB/YyybPDkwc0zizHmTjgQ13hgTr34hGFTO u6ZWBjgIVzWzBofVTsnnPRe5oVETC7Gn/4O1SrW0IvPPdZLZwIWUA4vydKxGZ6hD+XFWjbLUC/D6eazm kbKbbr+d0hWlp5tj+FRyKUOVnithWe2W2+4pSrySxv 76XyjLn48JBkPpOsYasXob53MfXWfL9uTueyyGnIBHdfwnzS/l1O+yA5rPiroAtlPNgoKWpBsqcITkOZ 5wRdvmTNhZkMhowFh4tFHfOZuh3Z1iXYrTq1QLcWYueZy6A8LsTeZf7QWkzq+wyxjU3+m3Tcm3bGIVVv 7bBZw7bBgKPpqzlahz3c0+cAPgP73VKrB2sbr2oLvb Yr7YonCi0+2PgjAurloqekUF4wihWLMn7eU+TUB0Gw5e81zymi0GSbMU3DZLEk5YNzz/IH4ndFQq8QpP 8YVNpNrpjzS3D9P1KyklJN1DPSIspyqiWP1vrhpRslv5azTcFuRyHgzrUuji/w03NyNdmYLVb+OFxF4q 2gMXrZ8ieQY0E3C+lKdUSCqEglhuET4p4horaOHK+T 33cNsahOrQx9hgFpz5cTv+XSIjN+dXYInG99KoJYmladqdaIbWXpIztOE9k9nBS3SNxjS8crYmrm7aKq 9esFaFxp9NHWN0BiYgQhYCEMUdDLzYoDTMQaYRFGD2EQnz4RaqVE1GMaCqMW3BdUJWsYRfmS3saY6MyL [facility]+3UNM5fhnXv3laP7AlTVzaRYXKVcWs5eUX [file] [facility] ID Date Data Source [id number] 11/23/2020 09:31:18 AM EDT [facility] Name Value Range Interpretation Code Description Data Belinda rce(s) Supporting Document(s) Leukocytes [#/volume] in Blood by Automated count 7.1 10*3/uL 4-10 [facility] Erythrocytes [#/volume] in Blood by Automated count 3.71 10*6/uL 4.6- 6.1 L [facility] Hemoglobin [Mass/volume] in Blood 12.0 g/dL 13.5-18 L [facility] Hematocrit [Volume Fraction] of Blood by Automated count 35.3 % 4 1-53 L [facility] Erythrocyte mean corpuscular volume [Entitic volume] by Auto mated count 95.1 fL 80-96 [facility] Erythrocyte mean corpuscular hemoglobin [Entitic mass] by Automated count 32.3 pg 27-33 [facility] Erythrocyte mean corpuscular hemoglobin concentration [Mass/volume] by Automated count 33.9 g/dL 32.0-36.0 [facility] E[facility]throcyte distribution width [Ratio] by Automated count 14.5 % 11.5-14.5 [facility] Platelets [#/volume] in Blood by Automated count 365 10*3/uL 150-400 [facility] Differential cell count method - Blood [facility] Neutrophils/100 leukocytes in Blood by Automated count 66 % [facility] Lymphocytes/100 leukocytes in Blood by Automated count 24 % [facility] Monocytes/100 leukocytes in Blood by Automated count 8 % [facility] Eosinophils/100 leukocytes in Blood by Automated count 1 % [facility] Basophils/100 leukocytes in Blood by Automated count 1 % [facility] Neutrophils [#/volume] in Blood by Automated count 4.65 10*3/uL 1.8-7 .0 [facility] Lymphocytes [#/volume] in Blood by Automated count 1.73 10*3/uL 1.2-4 .0 [facility] Monocytes [#/volume] in Blood by Automated count 0.58 10*3/uL 0-0.8 [facility] Eosinophils [#/volume] in Blood by Automated count 0.09 10*3/uL 0-0.5 [facility] Basophils [#/volume] in Blood by Automated count 0.08 10*3/uL 0-0.2 [facility] Nucleated erythrocytes/100 leukocytes [Ratio] in Blood by Automated count 0 /100{WBCs} 0-0 [facility] ID Date Data Source [id number] 11/23/2020 09:58:20 AM EDT [facility] Name Value Range Interpretation Code Description Data Belinda rce(s) Supporting Document(s) Albumin [Mass/volume] in Serum or Plasma by Bromocresol green (BCG) dye binding method 3.7 g/dL 3.5-5.2 [facility] Bilirubin.total [Mass/volume] in Serum or Plasma 0.4 mg/dL <1.2 [facility] Calcium [Mass/volume] in Serum or Plasma 9.4 mg/dL 8.6-10.0 [facility] Chloride [Moles/volume] in Serum or Plasma 100 mmol/L 98-107 [facility] Creatinine [Mass/volume] in Serum or Plasma 0.72 mg/dL 0.70-1.20 [facility] Glucose [Mass/volume] in Serum or Plasma 117 mg/dL 70-140 [facility] Alkaline phosphatase [Enzymatic activity/volume] in Serum or Plasma 103 U/L 40-129 [facility] Potassium [Moles/volume] in Serum or Plasma 3.9 mmol/L 3.4-5.1 [facility] Protein [Mass/volume] in Serum or Plasma 6.8 g/dL 6.4-8.3 [facility] Sodium [Moles/volume] in Serum or Plasma 135 mmol/L 136-145 L [facility] Aspartate aminotransferase [Enzymatic activity/volume] in Serum or Plasma 31 U/L <40 [facility] Urea nitrogen [Mass/volume] in Serum or Plasma 12 mg/dL 8-23 [facility] Osmolality of Serum or Plasma by calculation 280 mosm/kg 275-300 [facility] Creatinine/Urea nitrogen [Mass Ratio] in Serum or Plasma 16 [facility] Bicarbonate [Moles/volume] in Serum 21 mmol/L 22-29 L [facility] Alanine aminotransferase [Enzymatic activity/volume] in Seru m or Plasma 19 U/L <41 [facility] Anion gap 3 in Serum or Plasma 13 mmol/L 8-15 [facility] Glomerular filtration rate/1.73 sq M pre dicted among non-blacks [Volume Rate/Area] in Serum or Plasma by Creatinine-based formula (MDRD) >6 0 [facility] Glomerular filtration rate/1.73 sq M pre dicted among blacks [Volume Rate/Area] in Serum or Plasma by Creatinine-based formula (MDRD) >60 [facility] ID Date Data Source [id number] 11/23/2020 10:38:32 AM [facility] Name Value Range Interpretation Code Description Data Belinda rce(s) Supporting Document(s) Prostate Specific Ag Free/Prostate specific Ag.total i n Serum or Plasma 2.8 ng/mL <4.0 [facility] Serum levels of PSA should not be interp reted as absolute evidence of the presence or absence of Cancer. Results obtained with different methods cannot be used interchangeably. This method is manufactured by [employer] and is an electrochemiluminesence immunoassay. ID Date Data Source [id number] 11/19/2020 11:15:56 AM [facility] Value Range Interpretation Code Description Data Belinda rce(s) Supporting Document(s) Progress Note [facility] QNTDEq2dYyNSCbRz18/RDJozCDHod8UyXQsqHZw7REhmMVNkK5KhGOL6zN1wFAZ2RLcUSdJaBwPfMkFn [facility] [file] ICAgICAgICAgICAgICAgICAgICAgICAgICAgICAgICAgICAgICAgICAgICAgICAgICAgICAgICAgICAg ICAgICAgICAgICANCiAgICAgICAgICAgICAgICAgICAgICAgICAgICAgICAgICAgICAgICAgICAgICAg ICAgICAgICAgICAgICAgICAgICAgICAgICAgICAgIC AgICAgICAgICAgICAgICAgICAgICANCiAgICAgICAgICAgICAgICAgICAgICAgICAgICAgICAgICAgIC AgICAgICAgICAgICAgICAgICAgICAgICAgICAgICAgICAgICAgICAgICAgICAgICAgICAgICAgICAgIC AgICANCiAgICAgICAgICAgICAgICAgICAgICAgICAg ICAgICAgICAgICAgICAgICAgICAgICAgICAgICAgICAgICAgICAgICAgICAgICAgICAgICAgICAgICAg ICAgICAgICAgICAgICANCiAgICAgICAgICAgICAgICAgICAgICAgICAgICAgICAgICAgICAgICAgICAg ICAgICAgICAgICAgICAgICAgICAgICAgICAgICAgIC AgICAgICAgICAgICAgICAgICAgICAgICANCiAgICAgICAgICAgICAgICAgICAgICAgICAgICAgICAgIC AgICAgICAgICAgICAgICAgICAgICAgICAgICAgICAgICAgICAgICAgICAgICAgICAgICAgICAgICAgIC AgICAgICANCiAgICAgICAgICAgICAgICAgICAgICAg ICAgICAgICAgICAgICAgICAgICAgICAgICAgICAgICAgICAgICAgICAgICAgICAgICAgICAgICAgICAg ICAgICAgICAgICAgICAgICANCiAgICAgICAgICAgICAgICAgICAgICAgICAgICAgICAgICAgICAgICAg ICAgICAgICAgICAgICAgICAgICAgICAgICAgICAgIC AgICAgICAgICAgICAgICAgICAgICAgICAgICANCiAgICAgICAgICAgICAgICAgICAgICAgICAgICAgIC AgICAgICAgICAgICAgICAgICAgICAgICAgICAgICAgICAgICAgICAgICAgICAgICAgICAgICAgICAgIC AgICAgICAgICANCiAgICAgICAgICAgICAgICAgICAg ICAgICAgICAgICAgICAgICAgICAgICAgICAgICAgICAgICAgICAgICAgICAgICAgICAgICAgICAgICAg ICAgICAgICAgICAgICAgICAgICANCjw/mIWpW5pvxEAwxeI2A9qlDk8HVq7MPS5ky8UuXGPoNPszpgHz FrlYPfMtCYVvZjaCTgx7XAygMX4JaXDnP9HrN0XzEH seHF2XJONlINUwaXGeVPTzXDDuQiX8YYAwOElbFM7WtVJtUSnjNTUfILEwGMBlWZNfPHGaUTTOSCSjHV KqXmKjZRObHNDbLJGrBSIUURD4XEEpGcEuXWCrXYJrGiDqBMNEER7VXoIcR8FcgN54QGbFKn0+DQplbm YaKemVHqC2GXHzw6AcNTg5QB7ICWFgIfely6EmPQhw MUWDIVcfNU8GWYR4FXF8XTPoBl8DJHHiQ749pwQgRU9PCt3EMtUiJA7wcx7RBZktRXJqTnwYXns1WIrc TH6CtROjFVpCjf8wvpAcigASx0ArkaSxdJQLFC1gBsBbphHabR3oMO1TMWT6QFbfRfNaQcAuBKEbIov2 HJRYXAsYQjWpY8Fqw8WbHhP7EKWtUtAfSXjwDFIbVg A3KK94zPwdZS5ZQDVlZJWtJV49PWL6LDRcFu9QBa6SFdArNK6wxe1QMoBbEF0koz5FEPoTYtYaV4K2uI PaY8Hzjg70TI9JgMR5sCAfHE1MsJ4nXS2Fo3BgJPOdQwNzWRAqIUZgYGDiCJJxMvNpYS9OZMHhOgFudU LvVFPaGYW3ZGDnKmW9FVKuRY0INAYsFGZ3RU6SMS6C RnepN3BDZAwgrIeuHoPECIF/QKRXYVAXWFosPVHbA87TT4VEVPuGBvbaUPuKSoadAa5pSXt+Km6ZXM0j n3XgXJp5TATxJZ4hlk3HFZsWPnCfR8T7sJXcG6Q3MJgpGl2FCCDrKIRdJRPkNLULTTemKR4RRG2xfxL2 PI1TdGNrVVXsJPFrxPMeFMz7F23dkGVjACelHG8UVM A+Immanuel+Du3MSVAiOIOkMWRsTlQwULGUFfViC5ReJ8EAh3DvB9RuJC14sVychjYkZVuvPV7JEJ2qGZUkFH RYWZ5SvXXgdK9wvkT7JdZkLQVTZwAnB59bdPKxTXXpZXW8KZSeOe0IXKAnP6UfnbYhrSocfyWiJQVfQM OMPT7HBTekraSjmPIyrHiyHA46iIlaIH2IBy2ELiPs SJ3ium8TtPKhDu1NJTL2TA1UFOPeNBXgWLQaMSP4DURfGtEcSKhgGEXsHEQzLCL1VSAjYBNnYW8IEzSj CNHlVPU5XwHrIAIyYKZzri0OAURiJAV8TYV0QlBmNDCwTVDkJMzfVXYbRRVjIHG6XXBbWTOaNK8IUjRc NHKpXQGiXUIsLSWwOXSklo4DVHWuUHV6NVG6KYZqZR IdWRFmJLvwYNAdNOM2FyX5NEQbKWPtFJ8TGoEpJOAiQZsrSeerEHJdKYIjzt3HYYAbCCIeLUNyWvDxUZ TfEIMoDCjoSVFwJSIlIzZeIBXnAJKrKZ2WMfQvYUAvCAQ7InzvJXVgPKPlst1DOSZfSRIjJOJ3PYJjVW KlNUTlTSfaHNLzLOF7Mrh7XJKtHAFvTQ8FNlYaGDTi UWa1NtlfMLPfQVFcxe2LLGBlIGGiMOBmLADiQVFkPCPwNHquVXAlWGJzXmq0KBTuNQIzOV1WVaIpFILk RbS7OZIsXIUgADQmbu1ZIAKtSDBoEoCjYhZgFGXxMLUvKVtnYIFuTLX1CaX4FOKvLZQuPQ0HJhWmIHDe GqI9WKIiDCGpNYKehi8CBLVaZYBxKBL2StPkTZDtPH HeYHyfOIVaFYKySOW9FWFwEKNzXA3PMbCkXGNqInTqXwIvDLNhUSWjcj7SKMMpISElUhG3VDVbHZRzZD EgJZlcYPIeIUWvTVl7PFGwCVWzMJ3ZEfInUBQmAxI8YdGnBPMoPHBmsb7AVBMuUMOcNETmWPXnQGBoDT YgVQyjOIEzKZO9MZPiJLGxRFNvDZ9RMfTxLZOnAhWp QsNbGVBbDSShcn3RAGMiXTQ7EYCtQvBhVPHoSQWyBFgeHQVvPEPdOGD1MTKnKNLgZF3ITtPyZBZkJaXz JHfaSZYrVRSmwe6GUEMqRXQ5IailPpOkIXIdERRyUOphCSFuXBJaTUNuOFDzUKXuFN8YWvPzPIAvBmBh IKGcHVOeIPSbju4MBDJhCZS9NNP4TgElGEApISLxUO wrGLAuRFL7QnS0PWObLMYgMM6YGfKcJLKkLjYvEMUdSOAcXBNfcj5HBAAeKPX0RSO5LLUoMZDyECJeIY lpQUYvAUW3IzK9FVXpQQQyHK8CMtVsTVQuYGJsKcGtEVAnWAAauk4PUVIeZWB5NBFgDfAuCZOxXIEmJD ocGRUhOWj5OLB1IXCqIXWnDA4TUiRiGAVcYFZeQTss DEQbRGGatq9AXYPyIUH4OyFxZIRfZQXqTHTmSOnfCQHbAOy9KCO3TVFiGSDbVS4YWgThREFgJLz5SVZf XWVrPOPtiu7MOAWwNGA4ZSKwRRDiKHAaRTHdDNofFEBiWBe2TKH9NFTtVPTtWZ6CBlLvSHunJOXQOnl6 QDvyN9w5CTP4UF0NO4Kcs8NgZHcfLTQXYLprRX4wxq PuAQFkCr8OK7eZMnglC8L9LAA5ZVBcRHRoFOAvHPA6FAEcOOAkZYOfZ8JgFD3wAYReLRsrAaN9UzM2OD C2CfO6ZUMsVIRoCVY6PBTqEyW3GyZhSW2UQk9YEeA0NDI2sHCtXb6JWPioPQyEZqPwEV5XZKi= ID Date Data Source [id number] 11/18/2020 12:02:06 PM [facility] DEXA HIP AND OR SPINE [id number] RESULTI nterpreted by:Mary Wetzel MDHISTORY: 60-year-old male [...] e(s) Supporting Document(s) ID Date Data Source [id number] 11/16/2020 03:30:41 PM T [facility] 2.9Serum levels of PSA should not be int erpreted as absolute evidence of the presence or absence of Cancer. Results obtained with different methods cannot be used interchangeably. This method is manufactured by [employer] and is an electrochemiluminesence immunoassay. Name Value Range Interpretation Code Description Data Belinda rce(s) Supporting Document(s) Leukocytes [#/volume] in Blood by Automated count 7.8 10*3/uL 4-10 [facility] Erythrocytes [#/volume] in Blood by Automated count 3.86 10*6/uL 4.6- 6.1 L [facility] Hemoglobin [Mass/volume] in Blood 12.4 g/dL 13.5-18 L [facility] Hematocrit [Volume Fraction] of Blood by Automated count 37.0 % 4 1-53 L [facility] Erythrocyte mean corpuscular volume [Entitic volume] by Auto mated count 95.7 fL 80-96 [facility] Erythrocyte mean corpuscular hemoglobin [Entitic mass] by Automated count 32.2 pg 27-33 [facility] Erythrocyte mean corpuscular hemoglobin concentration [Mass/volume] by Autom[facility] 33.6 g/dL [facility].0-[facility] width [Ratio] by Automated count 14.1 % 11.5-14.5 [facility] Platelets [#/volume] in Blood by Automated count 345 10*3/uL 150-400 [facility] Differential cell count method - Blood [facility] Neutrophils/100 leukocytes in Blood by Automated count 63 % [facility] Lymphocytes/100 leukocytes in Blood by Automated count 27 % [facility] Monocytes/100 leukocytes in Blood by Automated count 8 % [facility] Eosinophils/100 leukocytes in Blood by Automated count 1 % [facility] Basophils/100 leukocytes in Blood by Automated count 1 % [facility] Neutrophils [#/volume] in Blood by Automated count 4.93 10*3/uL 1.8-7 .0 [facility] Lymphocytes [#/volume] in Blood by Automated count 2.14 10*3/uL 1.2-4 .0 [facility] Monocytes [#/volume] in Blood by Automated count 0.62 10*3/uL 0-0.8 [facility] Eosinophils [#/volume] in Blood by Automated count 0.08 10*3/uL 0-0.5 [facility] Basophils [#/volume] in Blood by Automated count 0.06 10*3/uL 0-0.2 [facility] Nucleated erythrocytes/100 leukocytes [Ratio] in Blood by Automated count 0 /100{WBCs} 0-0 [facility] ID Date Data Source [id number] 11/16/2020 04:04:18 PM EDT [facility] 2.9Serum levels of PSA should not be int erpreted as absolute evidence of the presence or absence of Cancer. Results obtained with different methods cannot be used interchangeably. This method is manufactured by [employer] and is an electrochemiluminesence immunoassay. Name Value Range Interpretation Code Description Data Belinda rce(s) Supporting Document(s) Albumin [Mass/volume] in Serum or Plasma by Bromocresol green (BCG) dye binding method 4.0 g/dL 3.5-5.2 [facility] Bilirubin.total [Mass/volume] in Serum or Plasma 0.3 mg/dL <1.2 [facility] Calcium [Mass/volume] in Serum or Plasma 9.5 mg/dL 8.6-10.0 [facility] Chloride [Moles/volume] in Serum or Plasma 103 mmol/L 98-107 [facility] Creatinine [Mass/volume] in Serum or Plasma 0.82 mg/dL 0.70-1.20 [facility] Glucose [Mass/volume] in Serum or Plasma 108 mg/dL 70-140 [facility] Alkaline phosphatase [Enzymatic activity/volume] in Serum or Plasma 97 U/L 40-129 [facility] Potassium [Moles/volume] in Serum or Plasma 3.6 mmol/L 3.4-5.1 [facility] Protein [Mass/volume] in Serum or Plasma 6.8 g/dL 6.4-8.3 [facility] Sodium [Moles/volume] in Serum or Plasma 141 mmol/L 136-145 [facility] Aspartate aminotransferase [Enzymatic activity/volume] in Serum or Plasma 25 U/L <40 [facility] Urea nitrogen [Mass/volume] in Serum or Plasma 19 mg/dL 8-23 [facility] Osmolality of Serum or Plasma by calculation 294 mosm/kg 275-300 [facility] Creatinine/Urea nitrogen [Mass Ratio] in Serum or Plasma 24 [facility] Bicarbonate [Moles/volume] in Serum 23 mmol/L 22-29 [facility] Alanine aminotransferase [Enzymatic activity/volume] in Seru m or Plasma 22 U/L <41 [facility] Anion gap 3 in Serum or Plasma 15 mmol/L 8-15 [facility] Glomerular filtration rate/1.73 sq M pre dicted among non-blacks [Volume Rate/Area] in Serum or Plasma by Creatinine-based formula (MDRD) >6 0 [facility] Glomerular filtration rate/1.73 sq M pre dicted among blacks [Volume Rate/Area] in Serum or Plasma by Creatinine-based formula (MDRD) >60 [facility] ID Date Data Source [id number] 11/16/2020 05:18:11 PM EDT [facility] 2.9Serum levels of PSA should not be int erpreted as absolute evidence of the presence or absence of Cancer. Results obtained with different methods cannot be used interchangeably. This method is manufactured by [employer] and is an electrochemiluminesence immunoassay. Name Value Range Interpretation Code Description Data Belinda rce(s) Supporting Document(s) Prostate Specific Ag Free [Mass/volume] in Serum or Plasma 0.5 ng/mL [facility] Not Applicable ID Date Data Source [id number] 11/16/2020 06:51:55 AM EDT [facility] Name Value Range Interpretation Code Description Data Belinda rce(s) Supporting Document(s) Progress Note 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 [id number] lbm [file] [id number]= ID Date Data Source [id number] 08/23/2020 10:49:52 AM EDT [facility] Name Value Range Interpretation Code Description Data Belinda rce(s) Supporting Document(s) Progress Note [facility] OZMSSc4cLkTOSyVz66/BXPvcSASqh0GfNGeuYSk1EYkgKFHlL7HeAMQ7jY7uRZC6GYgFQkEeNoEfAUK7 lbm [file] [id number]2ugZZaJWvsYC5JBJA+Immanuel+Nr2VKRQkMQYqAZElOsRrHGWGTyNdZ0 ClF7BEo9HhV8UjMG03yOioicMfYIieDV2RAF6eVHMuNHEMLF2SqSVsaS0eelJ1GeTaOGIEFzKcS71ysJ ViKAQqAOHnSNBpMn7NKMQvR3NhhmWvtTkkmkSeDUYq PBCPLS5RUJlsjuKeaGVrlVqhQO73pQedTG3APv8RNwPbSZ0mqn8GpKEoEp1ZSFO4XN6VWGYrWWVtNWTy GIT5TLCnRkChJUpgQAXtPUTvUUK1SMCgPBRyIG8KZsGxZRGtUZZ9VPNhVHGbGVOydy5XICRwWFW2OYWf WsVlVFJkVCBvSNpgGNMrIBSjQRW0QZGzHFQzZU6QJa ZoCGPlXWTsUVTwILAuFJBctl5WEWOmLOD4QTQmVUCmUIVdQHOuYRsaQHCaJUB5IrTxTUUvGGTcSM0EMf JoNLScSXe2UKZkVSUfWSAsny5RGGTiCBZaWET3FIEeAUDbCDCrJMrfNVSoQCBbPjM0EKAlNIMyYI7PRl IsJYLfILW3HySyDFQbLGImoy8KULMrUKZaNDI2ITZk FQVcAMSgZMlcFWSuZKD4RTvdFSJbNWQjND2ACoTvJMOzAJj8OlEjHNGvOFBict1UGWDnLRUuMeKiMKLg PDYbUFAbSLsuUQGaBJBpPRD8YFQsBNNvIG0JVsLiXDZyTzNxKZTlINWeYDNpuf7LLDBpOMJyUPbgFOVa XIWvUVOfNOmiTMWoRQC2YUI0DKViXWOvYI4CIqKcVZ UdJhyoDYBjSMMjGYJkex5UOZDuSJBtRES2KnDpOIQuHNNoAIhkZFXfAXQ4HYn1ONBjTVUrZH6IRaHfAR IpHkxsRPJeMWPdCBRlvi6ULQWbRZPkZMK1NUSwBLMrAVCyUAwhREYzBPSnAeCzQWBrAEHcOT2QIsNdNP JsZqT5KzLxKHJhALKwyc4LIXKsRPYfPVD9XPDoFAWf JIByHSbhKLGhXRCwIkp9TOPiBLZyVT1NQwVhVCEbGcL2HfHjGWYfUXDbci0ACISsAIX3PyQfBJIfLSXs GQNcIIjsKNJiPZCrFtZ3IDCmGSGwNR8ALrWmXZFeCSC9WemwECSfMSMkpp4YYFDhEDZ0AXP8YGLrVUSz NVKbDYthXPMcLID7SmV4VMEbKFMhAT3MYqXgIIRzRJ GnHgqwNYEsTEJgdr2DQXFyADR5YIY2HaAbPLDaAUGbRPbkZJFpSPI1JPE1FQWtOLIeKB2VWfUgDZVaCS Y5TWkzOZNhQLFclc8IBNJeSMW3KkG1CVEkRYQaEDTkLMunDNZfAIV4ITJeAFEnYUXbHH2EKtHaNIPtNM glEQUgERLyGHNhku9KJJDkMRL6EFy5YYLjBQQhGZRc WTslGZErVDF4MWHbRXSrWOTzKZ2SZiWeTNTnGMbqJJDkPVYaOIXrll5DjDPasQzfir4KSSvTBb2TxRns OGQ1OTjlCo7zcFI8BOToYRZIQp2OleNxVWXrRQLVSBzbDPNaDAA6PkpfDyA8NXY2FRB3P8Q2VFCrLpee EoSvNxa2FCb4QxS8TpB9KJVoHZHhJgN3HWVnTMVrFV FjOWQyZmZmODQwNzk+UM4cHUz+On1Be8CmyvP4xjRmPBe7ASBiAP8VEWARV9QRAx== ID Date Data Source [id number] 08/20/2020 11:18:28 AM EDT [facility] 1.6Serum levels of PSA should not be int erpreted as absolute evidence of the presence or absence of Cancer. Results obtained with different methods cannot be used interchangeably. This method is manufactured by [employer] and is an electrochemiluminesence immunoassay. Name Value Range Interpretation Code Description Data Belinda rce(s) Supporting Document(s) Leukocytes [#/volume] in Blood by Automated count 6.3 10*3/uL 4-10 [facility] Erythrocytes [#/volume] in Blood by Automated count 4.32 10*6/uL 4.6- 6.1 L [facility] Hemoglobin [Mass/volume] in Blood 13.6 g/dL 13.5-18 [facility] Hematocrit [Volume Fraction] of Blood by Automated count 41.6 % 4 1-53 [facility] Erythrocyte mean corpuscular volume [Entitic volume] by Auto mated count 96.3 fL 80-96 H [facility] Erythrocyte mean corpuscular hemoglobin [Entitic mass] by Automated count 31.4 pg 27-33 [facility] Erythrocyte mean corpuscular hemoglobin concentration [Mass/volume] by [facility] 32.6 g/dL [facility].0-[facility] width [Ratio] by Automated count 13.9 % 11.5-14.5 [facility] Platelets [#/volume] in Blood by Automated count 290 10*3/uL 150-400 [facility] Differential cell count method - Blood [facility] Neutrophils/100 leukocytes in Blood by Automated count 58 % [facility] Lymphocytes/100 leukocytes in Blood by Automated count 33 % [facility] Monocytes/100 leukocytes in Blood by Automated count 6 % [facility] Eosinophils/100 leukocytes in Blood by Automated count 2 % [facility] Basophils/100 leukocytes in Blood by Automated count 1 % [facility] Neutrophils [#/volume] in Blood by Automated count 3.62 10*3/uL 1.8-7 .0 [facility] Lymphocytes [#/volume] in Blood by Automated count 2.12 10*3/uL 1.2-4 .0 [facility] Monocytes [#/volume] in Blood by Automated count 0.41 10*3/uL 0-0.8 [facility] Eosinophils [#/volume] in Blood by Automated count 0.15 10*3/uL 0-0.5 [facility] Basophils [#/volume] in Blood by Automated count 0.04 10*3/uL 0-0.2 [facility] Nucleated erythrocytes/100 leukocytes [Ratio] in Blood by Automated count 0 /100{WBCs} 0-0 [facility] ID Date Data Source [id number] 08/20/2020 12:02:10 PM [facility] 1.6Serum levels of PSA should not [...] (BCG) dye binding method 4.5 g/dL 3.5-5.2 [facility] [Mass/volume] in Serum or Plasma 0.2 mg/dL <1.2 [facility] Calcium [Mass/volume] in Serum or Plasma 9.4 mg/dL 8.6-10.0 [facility] Chloride [Moles/volume] in Serum or Plasma 103 mmol/L 98-107 [facility] Creatinine [Mass/volume] in Serum or Plasma 0.82 mg/dL 0.70-1.20 [facility] Glucose [Mass/volume] in Serum or Plasma 106 mg/dL 70-140 [facility] Alkaline phosphatase [Enzymatic activity/volume] in Serum or Plasma 97 U/L 40-129 [facility] Potassium [Moles/volume] in Serum or Plasma 4.0 mmol/L 3.4-5.1 [facility] Protein [Mass/volume] in Serum or Plasma 7.0 g/dL 6.4-8.3 [facility] Sodium [Moles/volume] in Serum or Plasma 137 mmol/L 136-145 [facility] Aspartate aminotransferase [Enzymatic activity/volume] in Serum or Plasma 22 U/L <40 [facility] Urea nitrogen [Mass/volume] in Serum or Plasma 16 mg/dL 8-23 [facility] Osmolality of Serum or Plasma by calculation 286 mosm/kg 275-300 [facility] Creatinine/Urea nitrogen [Mass Ratio] in Serum or Plasma 20 [facility] Bicarbonate [Moles/volume] in Serum 24 mmol/L 22-29 [facility] Alanine aminotransferase [Enzymatic activity/volume] in Seru m or Plasma 36 U/L <41 [facility] Anion gap 3 in Serum or Plasma 10 mmol/L 8-15 [facility] Glomerular filtration rate/1.73 sq M pre dicted among non-blacks [Volume Rate/Area] in Serum or Plasma by Creatinine-based formula (MDRD) >6 0 [facility] Glomerular filtration rate/1.73 sq M pre dicted among blacks [Volume Rate/Area] in Serum or Plasma by Creatinine-based formula (MDRD) >60 [facility] ID Date Data Source [id number] 08/20/2020 12:14:09 PM EDT [facility] 1.6Serum levels of PSA should not be int erpreted as absolute evidence of the presence or absence of Cancer. Results obtained with different methods cannot be used interchangeably. This method is manufactured by [employer] and is an electrochemiluminesence immunoassay. Name Value Range Interpretation Code Description Data Belinda rce(s) Supporting Document(s) Prostate Specific Ag Free [Mass/volume] in Serum or Plasma 0.4 ng/mL [facility] Not Applicable ID Date Data Source [id number] 08/17/2020 10:03:13 AM EDT [facility] Name Value Range Interpretation Code Description Data Belinda rce(s) Supporting Document(s) Progress Note [facility] [id number]/ABZseSSLiv1TjBVdyBSd6LMkzJGSnD2UqOJZ9mG3qQGE3JKvTCcSqGnTsTXWi lbm [file] pMlACAEk2p8liiLlm5gVwa2/zZ2ka70cNQbAD5XbWDifiCjPRaS96MbSXjveupw9SyP+mejía/o97ha9h4J [file] [id number] ID Date Data Source [id number] 06/07/2020 05:09:38 AM EST [facility] Name Value Range Interpretation Code Description Data Belinda rce(s) Supporting Document(s) Progress Note [facility] TQCWOi1pErKSZtAs14/SJKsbNCRnk3DyTCgwCEo7AIweEIAtP9BxHPN1nX9bRUY2WKbJAzTbVkUsHzD0 lbm [file] BRYeBdy8RmKySRB7J5ClWlC0UFU6BBVsSix2PiYa EZ5XXv3WZuK6QHV4pLRlUf1JLuY4CJBNQlLtQH6DFMv= ID Date Data Source [id number] 06/07/2020 05:09:33 AM EST [facility] Name Value Range Interpretation Code Description Data Belinda rce(s) Supporting Document(s) Progress Note [facility] GKUHXs3tFwZIQrKo02/QXMtfPRCnk0LeSPqtCIt2YHirPYKbS1DfPOB2uA0aMYZ7CQkVIoSmWjBgSoI6 lbm [file] [id number]= ID Date Data Source [id number] 06/02/2020 09:23:36 AM EST [facility] Name Value Range Interpretation Code Description Data Belinda rce(s) Supporting Document(s) Progress Note [facility] XEOOGx1yBjUSNlFz48/YULrzRHTuc2TsWZuoCEy1VZldEEJgX8NaAWE5iX1jUWM2FKpZHeLlTrBxKoSs lbm [file] [facility]///[id number] [file] [id number]+DRqwnVSlmOyzSHMNOwKtXPg8MHxvFKVOLc0F ID Date Data Source [id number] 05/21/2020 10:24:20 AM EST [facility] 1.4Serum levels of PSA should not be int erpreted as absolute evidence of the presence or absence of Cancer. Results obtained with different methods cannot be used interchangeably. This method is manufactured by [employer] and is an electrochemiluminesence immunoassay. Name Value Range Interpretation Code Description Data Belinda rce(s) Supporting Document(s) Leukocytes [#/volume] in Blood by Automated count 5.5 10*3/uL 4-10 [facility] Erythrocytes [#/volume] in Blood by Automated count 4.34 10*6/uL 4.6- 6.1 L [facility] Hemoglobin [Mass/volume] in Blood 13.5 g/dL 13.5-18 [facility] Hematocrit [Volume Fraction] of Blood by Automated count 41.6 % 4 1-53 [facility] Erythrocyte mean corpuscular volume [Entitic volume] by Auto mated count 95.8 fL 80-96 [facility] Erythrocyte mean corpuscular hemoglobin [Entitic mass] by Automated count 31.2 pg 27-33 [facility] Erythrocyte mean corpuscular hemoglobin concentration [Mass/volume] by Automated count 32.5 g/dL 32.0-36.0 [facility] distribution width [Ratio] by Automated count 15.7 % 11.5-14.5 H [facility] Platelets [#/volume] in Blood by Automated count 276 10*3/uL 150-400 [facility] Differential cell count method - Blood [facility] Neutrophils/100 leukocytes in Blood by Automated count 48 % [facility] Lymphocytes/100 leukocytes in Blood by Automated count 39 % [facility] Monocytes/100 leukocytes in Blood by Automated count 8 % [facility] Eosinophils/100 leukocytes in Blood by Automated count 4 % [facility] Basophils/100 leukocytes in Blood by Automated count 1 % [facility] Neutrophils [#/volume] in Blood by Automated count 2.67 10*3/uL 1.8-7 .0 [facility] Lymphocytes [#/volume] in Blood by Automated count 2.16 10*3/uL 1.2-4 .0 [facility] Monocytes [#/volume] in Blood by Automated count 0.43 10*3/uL 0-0.8 [facility] Eosinophils [#/volume] in Blood by Automated count 0.23 10*3/uL 0-0.5 [facility] Basophils [#/volume] in Blood by Automated count 0.05 10*3/uL 0-0.2 [facility] Nucleated erythrocytes/100 leukocytes [Ratio] in Blood by Automated count 0 /100{WBCs} 0-0 [facility] ID Date Data Source [id number] 05/21/2020 11:33:10 AM [facility] 1.4Serum levels of PSA should not be int erpreted as absolute evidence of the presence or absence of Cancer. Results obtained with different methods cannot be used interchangeably. This method is manufactured by [employer] and is an electrochemiluminesence immunoassay. Name Value Range Interpretation Code Description Data Belinda rce(s) Supporting Document(s) Prostate Specific Ag Free [Mass/volume] in Serum or Plasma 0.3 ng/mL [facility] Not Applicable ID Date Data Source [id number] 05/21/2020 11:35:30 AM [facility] 1.4Serum levels of PSA should not be int erpreted as absolute evidence of the presence or absence of Cancer. Results obtained with different methods cannot be used interchangeably. This method is manufactured by [employer] and is an electrochemiluminesence immunoassay. Name Value Range Interpretation Code Description Data Belinda rce(s) Supporting Document(s) Albumin [Mass/volume] in Serum or Plasma by Bromocresol green (BCG) dye binding method 4.3 g/dL 3.5-5.2 [facility] Bil[facility].total [Mass/volume] in Serum or Plasma 0.3 mg/dL <1.2 [facility] Calcium [Mass/volume] in Serum or Plasma 10.1 mg/dL 8.6-10.0 H [facility] Chloride [Moles/volume] in Serum or Plasma 104 mmol/L 98-107 [facility] Creatinine [Mass/volume] in Serum or Plasma 0.88 mg/dL 0.70-1.20 [facility] Glucose [Mass/volume] in Serum or Plasma 108 mg/dL 70-140 [facility] Alkaline phosphatase [Enzymatic activity/volume] in Serum or Plasma 95 U/L 40-129 [facility] Potassium [Moles/volume] in Serum or Plasma 4.1 mmol/L 3.4-5.1 [facility] Protein [Mass/volume] in Serum or Plasma 7.2 g/dL 6.4-8.3 [facility] Sodium [Moles/volume] in Serum or Plasma 139 mmol/L 136-145 [facility] Aspartate aminotransferase [Enzymatic activity/volume] in Serum or Plasma 20 U/L <40 [facility] Urea nitrogen [Mass/volume] in Serum or Plasma 23 mg/dL 6-20 H [facility] Osmolality of Serum or Plasma by calculation 292 mosm/kg 275-300 [facility] Creatinine/Urea nitrogen [Mass Ratio] in Serum or Plasma 26 [facility] Bicarbonate [Moles/volume] in Serum 22 mmol/L 22-29 [facility] Alanine aminotransferase [Enzymatic activity/volume] in Seru m or Plasma 29 U/L <41 [facility] Anion gap 3 in Serum or Plasma 13 mmol/L 8-15 [facility] Glomerular filtration rate/1.73 sq M pre dicted among non-blacks [Volume Rate/Area] in Serum or Plasma by Creatinine-based formula (MDRD) >6 0 [facility] Glomerular filtration rate/1.73 sq M pre dicted among blacks [Volume Rate/Area] in Serum or Plasma by Creatinine-based formula (MDRD) >60 [facility] ID Date Data Source [id number] 02/25/2020 04:11:17 PM EDT [facility] Name Value Range Interpretation Code Description Data Belinda rce(s) Supporting Document(s) Progress Note [facility] [id number]3uL4nFBB1NVsEUnHnRcBbGDZ7 [facility] [file] [id number]PRC2VHTv== ID Date Data Source [id number] 02/20/2020 08:10:09 AM EDT [facility] Name Value Range Interpretation Code Description Data Belinda rce(s) Supporting Document(s) Progress Note [facility] [id number]/HEFpyHLFkd5LdYXeqPKz8LNkwIIFzS9IlZDM0yU0yCFL0YOpIFnBnFyGqTJGa lbm [file] Cg== ID Date Data Source [id number] 02/19/2020 03:05:47 PM EDT [facility] 1.2Serum levels of PSA should not be int erpreted as absolute evidence of the presence or absence of Cancer. Results obtained with different methods cannot be used interchangeably. This method is manufactured by [employer] and is an electrochemiluminesence immunoassay. Name Value Range Interpretation Code Description Data Belinda rce(s) Supporting Document(s) Leukocytes [#/volume] in Blood by Automated count 6.3 10*3/uL 4-10 [facility] Erythrocytes [#/volume] in Blood by Automated count 4.06 10*6/uL 4.6- 6.1 L [facility] Hemoglobin [Mass/volume] in Blood 12.7 g/dL 13.5-18 L [facility] Hematocrit [Volume Fraction] of Blood by Automated count 38.3 % 4 1-53 L [facility] Erythrocyte mean corpuscular volume [Entitic volume] by Auto mated count 94.2 fL 80-96 [facility] Erythrocyte mean corpuscular hemoglobin [Entitic mass] by Automated count 31.4 pg 27-33 [facility] Erythrocyte mean corpuscular hemoglobin concentration [Mass/volume] by Automated count 33.3 g/dL 32.0-36.0 [facility] distribution width [Ratio] by Automated count 15.2 % 11.5-14.5 H [facility] Platelets [#/volume] in Blood by Automated count 313 10*3/uL 150-400 [facility] Differential cell count method - Blood [facility] Neutrophils/100 leukocytes in Blood by Automated count 58 % [facility] Lymphocytes/100 leukocytes in Blood by Automated count 33 % [facility] Monocytes/100 leukocytes in Blood by Automated count 6 % [facility] Eosinophils/100 leukocytes in Blood by Automated count 2 % [facility] Basophils/100 leukocytes in Blood by Automated count 1 % [facility] Neutrophils [#/volume] in Blood by Automated count 3.61 10*3/uL 1.8-7 .0 [facility] Lymphocytes [#/volume] in Blood by Automated count 2.10 10*3/uL 1.2-4 .0 [facility] Monocytes [#/volume] in Blood by Automated count 0.39 10*3/uL 0-0.8 [facility] Eosinophils [#/volume] in Blood by Automated count 0.14 10*3/uL 0-0.5 [facility] Basophils [#/volume] in Blood by Automated count 0.07 10*3/uL 0-0.2 [facility] Nucleated erythrocytes/100 leukocytes [Ratio] in Blood by Automated count 0 /100{WBCs} 0-0 [facility] ID Date Data Source [id number] 02/19/2020 04:03:40 PM EDT [facility] 1.2Serum levels of PSA should not be int erpreted as absolute evidence of the presence or absence of Cancer. Results obtained with different methods cannot be used interchangeably. This method is manufactured by [employer] and is an electrochemiluminesence immunoassay. Name Value Range Interpretation Code Description Data Belinda rce(s) Supporting Document(s) Prostate Specific Ag Free [Mass/volume] in Serum or Plasma 0.3 ng/mL [facility] Not Applicable ID Date Data Source [id number] 02/19/2020 04:05:21 PM EDT [facility] 1.2Serum levels of PSA should not [...] (BCG) dye binding method 4.0 g/dL 3.5-5.2 [facility] Bil[facility].total [Mass/volume] in Serum or Plasma <1.2 [facility] Calcium [Mass/volume] in Serum or Plasma 9.3 mg/dL 8.6-10.0 [facility] Chloride [Moles/volume] in Serum or Plasma 105 mmol/L 98-107 [facility] Creatinine [Mass/volume] in Serum or Plasma 0.84 mg/dL 0.70-1.20 [facility] Glucose [Mass/volume] in Serum or Plasma 95 mg/dL 70-140 [facility] Alkaline phosphatase [Enzymatic activity/volume] in Serum or Plasma 77 U/L 40-129 [facility] Potassium [Moles/volume] in Serum or Plasma 4.1 mmol/L 3.4-5.1 [facility] Hemolyzed Protein [Mass/volume] in Serum or Plasma 6.5 g/dL 6.4-8.3 [facility] Sodium [Moles/volume] in Serum or Plasma 138 mmol/L 136-145 [facility] Aspartate aminotransferase [Enzymatic activity/volume] in Serum or Plasma 21 U/L <40 [facility] Urea nitrogen [Mass/volume] in Serum or Plasma 18 mg/dL 6-20 [facility] Osmolality of Serum or Plasma by calculation 288 mosm/kg 275-300 [facility] Creatinine/Urea nitrogen [Mass Ratio] in Serum or Plasma 21 [facility] Bicarbonate [Moles/volume] in Serum 20 mmol/L 22-29 L [facility] Alanine aminotransferase [Enzymatic activity/volume] in Seru m or Plasma 17 U/L <41 [facility] Anion gap 3 in Serum or Plasma 13 mmol/L 8-15 [facility] Glomerular filtration rate/1.73 sq M pre dicted among non-blacks [Volume Rate/Area] in Serum or Plasma by Creatinine-based formula (MDRD) >6 0 [facility] Glomerular filtration rate/1.73 sq M pre dicted among blacks [Volume Rate/Area] in Serum or Plasma by Creatinine-based formula (MDRD) >60 [facility] Procedure Social History Code Duration Value Status Description Data Source(s ) Alcohol intake 01/11/2021 12:00:00 AM EDT Current non-d ibrahima of alcohol (finding) completed Current non-drinker of alcohol (finding) [facility] Tobacco use and exposure 01/11/2021 12:00:00 AM EDT Never used co mpleted Never used [facility] Smoking 01/11/2021 12:00:00 AM EDT Former smoker completed Former smoker [facility] Alcohol intake 12/28/2020 12:00:00 AM EDT Current non-d ibrahima of alcohol (finding) completed Current non-drinker of alcohol (finding) [facility] Alcohol intake 12/22/2020 12:00:00 AM EDT Current non-d ibrahima of alcohol (finding) completed Current non-drinker of alcohol (finding) [facility] Alcohol intake 12/14/2020 12:00:00 AM EDT Current non-d ibrahima of alcohol (finding) completed Current non-drinker of alcohol (finding) [facility] Alcohol intake 11/24/2020 12:00:00 AM EDT Current non-d ibrahima of alcohol (finding) completed Current non-drinker of alcohol (finding) [facility] Alcohol intake 11/23/2020 12:00:00 AM EDT Current non-d ibrahima of alcohol (finding) completed Current non-drinker of alcohol (finding) [facility] Alcohol intake 11/16/2020 12:00:00 AM EDT Current non-d ibrahima of alcohol (finding) completed Current non-drinker of alcohol (finding) [facility] Smoking 10/20/2020 12:00:00 AM EDT Former Smoker completed Former Smoker [email or web address] (Formerly [facility]) Smoking 10/20/2020 12:00:00 AM EDT Former Smoker completed Former Smoker [email or web address] (Formerly [facility]) Smoking 10/20/2020 12:00:00 AM EDT Former Smoker completed Former Smoker [email or web address] (Formerly [facility]) Smoking 10/20/2020 12:00:00 AM EDT Former Smoker completed Former Smoker [email or web address] (Formerly [facility]) Smoking 10/20/2020 12:00:00 AM EDT Former Smoker completed Former Smoker [email or web address] (Formerly [facility]) Smoking 10/20/2020 12:00:00 AM EDT Former Smoker completed Former Smoker [email or web address] (Formerly [facility]) Smoking 10/20/2020 12:00:00 AM EDT Former Smoker completed Former Smoker [email or web address] (Formerly [facility]) Smoking 10/20/2020 12:00:00 AM EDT Former Smoker completed Former Smoker [email or web address] (Formerly [facility]) Smoking 10/20/2020 12:00:00 AM EDT Former Smoker completed Former Smoker [email or web address] (Formerly [facility]) Smoking 10/20/2020 12:00:00 AM EDT Former Smoker completed Former Smoker [email or web address] (Formerly [facility]) Smoking 10/20/2020 12:00:00 AM EDT Former Smoker completed Former Smoker [email or web address] (Formerly [facility]) Smoking 10/20/2020 12:00:00 AM EDT Former Smoker completed Former Smoker [email or web address] (Formerly [facility]) Smoking 10/20/2020 12:00:00 AM EDT Former Smoker completed Former Smoker [email or web address] (Formerly [facility]) Smoking 10/20/2020 12:00:00 AM EDT Former Smoker completed Former Smoker [email or web address] (Formerly [facility]) Alcohol intake 10/19/2020 12:00:00 AM EDT Current non-d ibrahima of alcohol (finding) completed Current non-drinker of alcohol (finding) [facility] Smoking 08/23/2020 12:00:00 AM EDT Former Smoker completed Former Smoker [email or web address] (Formerly [facility]) Smoking 08/23/2020 12:00:00 AM EDT Former Smoker completed Former Smoker [email or web address] (Formerly [facility]) Smoking 08/23/2020 12:00:00 AM EDT Former Smoker completed Former Smoker [email or web address] (Formerly [facility]) Smoking 08/23/2020 12:00:00 AM EDT Former Smoker completed Former Smoker [email or web address] (Formerly [facility]) Alcohol intake 08/20/2020 12:00:00 AM EDT Current non-d ibrahima of alcohol (finding) completed Current non-drinker of alcohol (finding) [facility] Alcohol intake 08/17/2020 12:00:00 AM EDT Current non-d ibrahima of alcohol (finding) completed Current non-drinker of alcohol (finding) [facility] Smoking 07/19/2020 12:00:00 AM EDT Former Smoker completed Former Smoker [email or web address] (Formerly [facility]) Smoking 07/19/2020 12:00:00 AM EDT Former Smoker completed Former Smoker [email or web address] (Formerly [facility]) Alcohol intake 05/21/2020 12:00:00 AM EST Current non-d ibrahima of alcohol (finding) completed Current non-drinker of alcohol (finding) [facility] Smoking 05/10/2020 12:00:00 AM EST Former Smoker completed Former Smoker [email or web address] (Formerly [facility]) Smoking 05/10/2020 12:00:00 AM EST Former Smoker completed Former Smoker [email or web address] (Formerly [facility]) Smoking 05/10/2020 12:00:00 AM EST Former Smoker completed Former Smoker [email or web address] (Formerly [facility]) Smoking 04/26/2020 12:00:00 AM EST Former Smoker completed Former Smoker [email or web address] (Formerly [facility]) Smoking 04/26/2020 12:00:00 AM EST Former Smoker completed Former Smoker [email or web address] (Formerly [facility]) Smoking 03/08/2020 12:00:00 AM EST Former Smoker completed Former Smoker [email or web address] (Formerly [facility]) Smoking 03/08/2020 12:00:00 AM EST Former Smoker completed Former Smoker [email or web address] (Formerly [facility]) Smoking 03/08/2020 12:00:00 AM EST Former Smoker completed Former Smoker [email or web address] (Formerly [facility]) Smoking 03/08/2020 12:00:00 AM EST Former Smoker completed Former Smoker [email or web address] (Formerly [facility]) Smoking 03/08/2020 12:00:00 AM EST Former Smoker completed Former Smoker [email or web address] (Formerly [facility]) Alcohol intake 02/19/2020 12:00:00 AM EDT Current non-d ibrahima of alcohol (finding) completed Current non-drinker of alcohol (finding) [facility] Vital Signs ID Date Data Source UNK Name Value Range Interpretation Code Description Data Source(s) Body weight 202.8 [lb_av] 202.8 [lb_av] eCW1 ([facility]) Body height [in_i] eCW1 ([facility]) Body mass index (BMI) [Ratio] 30.83 kg/m2 30.83 kg/m2 eCW1 ([facility]) Heart rate 90 /min 90 /min eCW1 ([facility]) Respiratory rate 18 /min 18 /min eCW1 ([facility]) Body temperature 97.7 [degF] 97.7 [degF] eCW1 ( [facility]) Systolic blood pressure 118 mm[Hg] 118 mm[Hg] e CW1 ([facility]) Diastolic blood pressure 78 mm[Hg] 78 mm[Hg] eCW1 ([facility]) Body weight 218 [lb_av] 218 [lb_av] eCW1 ([facility]) Body height [in_i] eCW1 ([facility]) Body mass index (BMI) [Ratio] 33.14 kg/m2 33.14 kg/m2 eCW1 ([facility]) Heart rate 102 /min 102 /min eCW1 ([facility]) Respiratory rate 18 /min 18 /min eCW1 ([facility]) Body temperature 96.7 [degF] 96.7 [degF] eCW1 ( [facility]) Systolic blood pressure 116 mm[Hg] 116 mm[Hg] e CW1 ([facility]) Diastolic blood pressure 80 mm[Hg] 80 mm[Hg] eCW1 ([facility]) Body height 68 [in_i] 68 [in_i] MEDYARELIS ([facility]) 5'8" Body weight 200.00 [lb_av] 200.00 [lb_av] MEDEN T ([facility]) Body mass index (BMI) [Ratio] 30.4 kg/m2 30.4 k g/m2 [facility] ([facility]) [place] body weight 154 [lb_av] 154 [lb_av] MEDEN T ([facility]) Body weight 90.720 kg 90.720 kg [facility] ([facility]) Body surface area Derived from formula 2.04 m2 2.04 m2 MEDENT ([facility]) Body weight 209 [lb_av] 209 [lb_av] eCW1 ([facility]) Body height [in_i] eCW1 ([facility]) Body mass index (BMI) [Ratio] 31.77 kg/m2 31.77 kg/m2 eCW1 ([facility]) Heart rate 106 /min 106 /min eCW1 ([facility]) Respiratory rate 18 /min 18 /min eCW1 ([facility]) Body temperature 97.7 [degF] 97.7 [degF] eCW1 ( [facility]) Systolic blood pressure 138 mm[Hg] 138 mm[Hg] e CW1 ([facility]) Diastolic blood pressure 108 mm[Hg] 108 mm[Hg] eCW1 ([facility]) ID Date Data Source [id number] [facility] Interpretation Code Description Data Source(s) TRANSFER FROM Outpatient Clinic/Office [facility] ID Date Data Source [id number] 01/12/2021 08:12:49 AM [facility] Name Value Range Interpretation Code Description Data Source(s) TRANSFER FROM Outpatient Clinic/Office [facility] ID Date Data Source [id number] 02/04/2021 12:32:39 PM [facility] Name Value Range Interpretation Code Description Data Source(s) TRANSFER FROM Outpatient Clinic/Office [facility] ID Date Data Source [id number] 12/20/2020 03:22:50 PM EDT [facility] Name Value Range Interpretation Code Description Data Source(s) WEIGHT RECORDED 173 lb 173 lb [facility] ID Date Data Source [id number] 09/04/2020 06:39:32 AM [facility] Name Value Range Interpretation Code Description Data Source(s) WEIGHT RECORDED 214 lb 214 lb [facility] ID Date Data Source [id number] 08/18/2020 02:04:26 PM [facility] Name Value Range Interpretation Code Description Data Source(s) WEIGHT RECORDED 208 lb 208 lb [facility] Body height Measured 67.99 in 67.99 in [facility] ID Date Data Source [id number] 07/12/2020 08:18:53 AM [facility] Name Value Range Interpretation Code Description Data Source(s) WEIGHT RECORDED 213 lb 213 lb [facility] ID Date Data Source [id number] 02/25/2020 04:11:17 PM [facility] Value Range Interpretation Code Description Data Source(s) WEIGHT RECORDED 209.6 lb 209.6 lb [facility] Body height Measured 67.99 in 67.99 in [facility] ID Date Data Source [id number] 02/20/2020 08:10:09 AM [facility] Name Value Range Interpretation Code Description Data Source(s) WEIGHT RECORDED 208.8 lb 208.8 lb [facility] Patient Treatment Plan of Care Planned Activity Planned Date Details Description Data Source (s) Folic Acid 1 MG Oral Tablet 01/18/2021 12:00:00 AM [facility] salmon calcitonin 200 UNT/ACTUAT Nasal [place] 01/17/2021 12:00:00 AM [facility] ferrous gluconate 324 MG Oral Tablet 01/17/2021 12:00:00 AM [facility] salmon calcitonin 200 UNT/ACTUAT Nasal [place] 01/17/2021 12:00:00 AM [facility] salmon calcitonin 200 UNT/ML Injectable Solution 01/17/2021 12:00:0 0 AM [facility] salmon calcitonin 200 UNT/ML Injectable Solution 01/17/2021 12:00:0 0 AM [facility] Acetaminophen 325 MG Oral Tablet 01/11/2021 05:17:54 PM [facility] Carisoprodol 350 MG Oral Tablet 01/11/2021 05:17:53 PM [facility] Ondansetron 8 MG Oral Tablet 01/11/2021 05:17:53 PM [facility] lidocaine (XYLOCAINE) 2 % urojet 20 mL 12/22/2020 12:00:00 PM [facility] sennosides, SENIOR CARE 8.6 MG Oral Tablet 12/14/2020 12:00:00 AM [facility] Docusate Sodium 50 MG / sennosides, SENIOR CARE 8.6 MG Oral Ta blet 12/14/2020 12:00:00 AM [facility] POLYETHYLENE GLYCOL 3350 142 MG/ML Oral Solution 12/14/2020 12:00:0 0 AM [facility] Lactulose 667 MG/ML Oral Solution 12/14/2020 12:00:00 AM [facility] Oxycodone Hydrochloride 15 MG Oral Tablet 12/10/2020 12:00:00 AM [facility] Self-Cath Coude Tip 11/29/2020 12:00:00 AM [facility] Ondansetron 8 MG Oral Tablet 11/23/2020 12:00:00 AM [facility] Prochlorperazine 10 MG Oral Tablet 11/23/2020 12:00:00 AM [facility] Prednisone 10 MG Oral Tablet 11/23/2020 12:00:00 AM [facility] Morphine Sulfate 15 MG Extended Release Oral Tablet 11/17/19 12:00:00 AM [facility] Oxycodone Hydrochloride 15 MG Oral Tablet 11/11/2020 12:00:00 AM [facility] Ciprofloxacin 500 MG Oral Tablet [Cipro] 10/20/2020 12:00:00 AM [place] [id number] ([facility]) Ciprofloxacin 500 MG Oral Tablet [Cipro] 10/20/2020 12:00:00 AM [place] [address] ([facility]) Ciprofloxacin 500 MG Oral Tablet [Cipro] 10/20/2020 12:00:00 AM [place] [address] ([facility]) Ciprofloxacin 500 MG Oral Tablet [Cipro] 10/20/2020 12:00:00 AM EDT eCW1 ([facility]) Oxycodone Hydrochloride 15 MG Oral Tablet 10/11/2020 12:00:00 AM [facility] Oxycodone Hydrochloride 15 MG Oral Tablet 09/10/2020 12:00:00 AM [facility] Oxycodone Hydrochloride 15 MG Oral Tablet 08/12/2020 12:00:00 AM [facility] enzalutamide 40 MG Oral Capsule [Xtandi] 06/14/2020 12:00:00 AM [facility] Oxycodone Hydrochloride 15 MG Oral Tablet 05/11/2020 12:00:00 AM [facility] gabapentin 300 MG Oral Capsule 03/08/2020 12:00:00 AM EST W1 ([facility]) gabapentin 300 MG Oral Capsule 03/08/2020 12:00:00 AM EST W1 ([facility]) gabapentin 300 MG Oral Capsule 03/08/2020 12:00:00 AM EST eCW1 ([facility]) gabapentin 300 MG Oral Capsule 03/08/2020 12:00:00 AM EST eCW1 ([facility]) gabapentin 300 MG Oral Capsule 03/08/2020 12:00:00 AM EST eC1 ([facility]) Oxycodone Hydrochloride 15 MG Oral Tablet 02/12/2020 12:00:00 AM [facility] Pentoxifylline 400 MG Extended Release Oral Tablet 12/01/2018 12 :00:00 AM [facility] Catheters (BARD COUDE TIP CATHETER) MISC 10/30/2018 12:00:00 AM [facility] irbesartan 300 MG Oral Tablet 10/15/2018 12:00:00 AM [facility] Losartan Potassium 50 MG Oral Tablet 01/17/2018 12:00:00 AM [facility] atorvastatin 20 MG Oral Tablet 01/07/2018 12:00:00 AM [facility] Amlodipine 10 MG Oral Tablet 09/17/2017 12:00:00 AM [facility] 12 HR Orphenadrine Citrate 100 MG Extended Release Ora l Tablet 09/14/2017 12:00:00 AM EDT [facility] Calcium Carbonate 1500 MG Oral Tablet [facility] Losartan Potassium 25 MG Oral Tablet [facility] Losartan Potassium 25 MG Oral Tablet [facility] Diclofenac Sodium 50 MG Delayed Release Oral Tablet [facility] Leuprolide Acetate (LUPRON DEPOT IM) [facility] Ascorbic Acid (VITAMIN C PO) [facility]
[2021-02-16] MEDS ORDERED: RA B1TAB2 PO (15:15)
[2021-02-16] MEDS ORDERED: SOMA350T PO (15:15)
[2021-02-16] MEDS ORDERED: HOME MED LIST COMPLETE! XX SCH (15:20)
[2021-02-16] MEDS: NS 1,000 ML IV SCH ×2 (15:51→23:31)
--- NOTE | 2021-02-16 15:52 | HPEPDOC ---
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 Patient was recently admitted here for AMS likely 2/2 to hypercalcemia from 03/07-01/18. He was discharged home with nasal calcitonin. Family says he was ok for only several days then he begins to become more confused, attributing these symptoms to when his calcium levels are high. The patient states that when he fell it was to his knees and he did not hit his head. He has not been eating well at home but manages to drink better. He complains of worsening bone pain in his back which is attributed to his metastatic disease. According to his family at the bedside, the patient has been seeing his cancer doctor and primary care for pain control. According to notes from his oncology office chemotherapy and radiation has been exhausted, next steps or palliative care. Level of care has been discussed with the patient and he once to continue to be a code. The pa tient denies chest pain, shortness of breath, nausea, vomiting, diarrhea, blurry vision, headedness, dizziness. He does admit to lack of energy, loss of appetite, weight loss, back and hip pain. In the emergency room, blood pressure was low with systolic in the 90s. He was given normal saline which increased systolic slightly. Patient's UA + for UTI, he was slightly tachycardic. Patient appeared confused intermittently. When asked the family if this is similar to his prior admission day stated yes. He was given levofloxacin 1 dose. WBC slightly elevated. Calcium was elevated at 12.9. The patient's oral mucosa appeared dry and he appeared dehydrated, could not rule out sepsis secondary to UTI. The patient was ultimately admitted to medicine service for further treatment of hypotension, rule out UTI with sepsis, dehydration, recurrent hyperglycemia in the setting of metastatic disease. REVIEW OF SYSTEMS: CONSTITUTIONAL: Denies fever, night sweats EYES: Denies eye drainage, eye pain, visual changes, dry/irritated eye EARS, NOSE, MOUTH, THROAT: Denies difficulty hearing, ringing in ears, mouth sores, loose teeth, sore throat, facial numbness or pain NECK: Denies swollen glands CARDIOVASCULAR: Denies irregular heartbeat, racing heart, chest pains, swelling of feet or legs, pain in legs with walking RESPIRATORY: Denies shortness of breath, night sweats, wheezing, sputum produ ction, oxygen at home, coughing up blood, cough lasting > 1 month GASTROINTESTINAL: Denies abdominal pain, constipation, bloody stool, diarrhea, heartburn, nausea, vomiting GENITOURINARY: Denies painful urination, bloody urine, frequent urination, urgency, leaking urine, impotence MUSCULOSKELETAL: Denies muscle pain, leg swelling INTEGUMENTARY: Denies rash, itching, new skin lesion, change in existing skin lesion, hair loss or increase, breast changes. NEUROLOGICAL: Denies headaches, dizziness, difficulty walking, numbness or tingling PSYCHIATRIC: Denies depression, anxiety, recurrent bad thoughts, mood swings, hallucinations PAST MEDICAL HISTORY: Metastatic prostatic cancer with mets to bones and brain s/p chemo therapy and radiotherapy to prostate, recurrent hypercalcemia 2/2 to malignancy, bilateral hydronephrosis R>L s/p right nephrostomy tube placement in dec 2020, obstructive uropathy from enlarged prostate patient self catheterizes, chronic anemia( Hb 8.8-9.0 01/2021), folic acid def and iron def PAST SURGICAL HISTORY: Right nephrostomy tube placement LEFT WRIST SURGERY 30 YEARS AGO ORAL SURGERY 04/2019 RT ELBOW-ULNAR NERVE REPAIR 2018 FAMILY HISTORY: Cancer SOCIAL HISTORY: Smoker: quit greater than 1 year ALLERGIES: Please see below. HOME MEDICATIONS: Please see below. PHYSICAL EXAMINATION: VS: 97.2, 100, 16, 100/68, 95% on RA CONSTITUTIONAL: No acute distress, resting comfortably, AAO x 3 EYES: PERRLA, EOM intact HENT, MOUTH: Normocephalic, atraumatic, moist mucous membranes NECK: SUPPLE, no JVD, no lymphadenopathy, no carotid bruit CV: Regular rate and rhythm, S1S2 normal, no murmurs/rubs/gallops RESPIRATORY: Clear to auscultation bilaterally, no rales/rhonchi/wheezes GI: BS positive in 4 quadrants, soft, nontender, nondistended, no rebound or guarding, no organomegaly : Deferred MUSCULOSKELETAL: Normal ROM. No cyanosis, clubbing, swelling, joint deformity, extremity edema INTEGUMENTARY: Intact, no rashes, no lesions, no erythema NEUROLOGIC: Cranial Nerves II-XII are intact, no focal deficits PSYCHIATRIC: Mood and affect are normal LABORATORY DATA: Please see below IMAGING: CT head: No acute intracranial abnormality. CXR: No acute abnormality CT cervical spine: 1. Extensive osseous metastatic disease, significantly increased from 03/23/2020 . 2. New pathologic C3 superior endplate compression fracture. Mild C3 vertebral body height loss is present. 3. Age-indeterminate pathologic fracture involving the left C5 transverse process, new since 03/23/2020 4. Chronic findings as discussed above. ASSESSMENT: 60-year-old with metastatic prostatic cancer with mets to bones and brain s/p chemo therapy and radiotherapy to prostate, recurrent hypercalcemia 2/2 to malignancy, bilateral hydronephrosis R>L s/p right nephrostomy tube placement in dec 2020, obstructive uropathy from enlarged prostate patient self catheterizes, chronic anemia( Hb 8.8-9.0 01/2021), folic acid def and iron def admitted to medicine service for further treatment of hypotension, rule out UTI with sepsis, dehydration, recurrent hyperglycemia in the setting of metastatic disease. PLAN: Recurrent hypercalcemia 2/2 to metastatic prostate cancer to bone -Ca 12.9, AMS, dehydrated -Discussed case with nephrology over phone, no official consult -Discussed risks of bisphosphonates with patient's son (father confused), including jaw necrosis which patient has already had. Would like us to give to help keep calcium levels down and help prevent readmission. -Giving one dose zolendronic acid 4mg x 1 and starting on calcitonin 200 mg SC Q8H x 6 doses, IVF hydration -Daily calcium levels, CMP, CBC -Monitor for s/s of hypocalcemia Acute Metabolic encephalopathy likely to hypercalcemia, UTI with sepsis -UA +, f/u UCx, BCx -CXR neg -LA pending -Ceftriaxone daily, s/p levofloxacin in ER. C/w IVFs, sepsis protocol Hypotension likely 2/2 to dehydration, sepsis with possible shock -Giving bolus now, received IVFs in ER. -C/w abx, w/u of sepsis above -C/w IVFs at 125 cc/hr -Encourage fluid intake, food intake UTI, recurrent and likely 2/2 to hx of obstructive uropathy with right hydronephrosis, left hydro -has right nephrostomy tube and seft catheterizes -ceftriaxone, f/u UCx, bcx Chronic anemia 2/2 to to anemia of chronic disease, folic acid def and iron def -Hb is at baseline -will continue with folate, iron. Prostate cancer with mets to bone with chronic pain -has large bladder mass, and right proximal ureteral mass with bulky lymphadenopathy -Got RT to prostate and getting Chemo, per heme/onc notes not much else to do -Heme/onc to suggest palliative care -C/w home pain meds, tamsulosin Deconditioning 2/2 to acute and chronic disease, worsening -PT/OT -Tx above DVT px -Lovenox SC DISPOSITION: Admitted as acute inpatient. Plan is to lower calcium levels and return to home living situation. FULL CODE. Vital Signs Vital Signs Date Time Temp Pulse Resp B/P (MAP) Pulse Ox O2 Delivery O2 Flow Rate FiO2 02/16/21 11:33 97.2 100 16 100/68 (79) 95 Room Air Laboratory Data Labs 24H Laboratory Tests 2 02/16/21 11:48: Immature Granulocyte % (Auto) 0.7, Neutrophils (%) (Auto) 85.2H, Lymphocytes (%) (Auto) 7.1L, Monocytes (%) (Auto) 6.6, Eosinophils (%) (Auto) 0.1, Basophils (%) (Auto) 0.3, Neutrophils # (Auto) 9.7H, Lymphocytes # (Auto) 0.8L, Monocytes # (Auto) 0.8, Eosinophils # (Auto) 0.0, Basophils # (Auto) 0.0, Nucleated Red Blood Cells % (auto) 0.0, Anion Gap 6L, Glomerular Filtration Rate > 60.0, Calcium Level 12.9H, Phosphorus Level 2.5, Magnesium Level 1.7L, Total Bilirubin 0.4, Direct Bilirubin 0.1, Aspartate Amino Transf (AST/SGOT) 57H, Alanine Aminotransferase (ALT/SGPT) 13, Alkaline Phosphatase 148H, Total Creatine Kinase 77, Creatine Kinase MB < 1.0, Creatine Kinase MB Relative Index 1.30, Troponin I < 0.02, Total Protein 6.9, Albumin 1.9L, Albumin/Globulin Ratio 0.4, Thyroid Stimulating Hormone (TSH) 0.621, Free Thyroxine 1.35 02/16/21 13:10: Coronavirus (COVID-19)(PCR) NEGATIVE, Influenza Type A (RT-PCR) NEGATIVE, Influenza Type B (RT-PCR) NEGATIVE, Respiratory Syncytial Virus (PCR) NEGATIVE 02/16/21 13:33: Urine Color YELLOW, Urine Appearance TURBIDH, Urine pH 6.0, Urine Specific [place] 1.009, Urine Protein 3+H, Urine Glucose (UA) 1+H, Urine Ketones TRACEH, Urine Blood 2+H, Urine Nitrite POSITIVEH, Urine Bilirubin NEGATIVE, Urine Urobilinogen 0.2, Urine Leukocyte Esterase 2+H, Urine WBC (Auto) TNTCH, Urine RBC (Auto) 0, Urine Hyaline Casts (Auto) 0, Urine Bacteria (Auto) 3+H, Urine Squamous Epithelial Cells 0, Urine Sperm (Auto) CBC/BMP Laboratory Tests 02/16/21 11:48 Microbiology Microbiology 02/16/21 Urine Culture, Received Pending 02/16/21 Blood Culture, Received Pending 02/16/21 Blood Culture, Received Pending Home Medications Scheduled Aspirin (Aspirin EC) 81 Mg Tablet.dr, 81 MG PO DAILY Calcitonin,Anderson,Synthetic (Calcitonin-Anderson) 3.7 Ml [place].pump, 1 SPRAY NARES BID Ferrous Gluconate (Ferrous Gluconate) 324 Mg Tablet, 324 MG PO Q2D Folic Acid (Folic Acid) 1 Mg Tablet, 1 MG PO DAILY Tamsulosin HCl (Flomax) 0.4 Mg Cap, 0.4 MG PO BID Vitamin B Complex (Vitamin B Complex) 1 Each Tablet, 1 TAB PO DAILY Scheduled PRN Carisoprodol (Soma) 350 Mg Tablet, 350 MG PO TID PRN for PAIN LEVEL 3-5 Oxycodone Hcl (Oxycodone HCl) 15 Mg Tablet, 15 MG PO QID PRN for PAIN LEVEL 5-10 Polyethylene Glycol 3350 (Miralax) 17 Gm Powd.pack, 1 PKT PO DAILYPRN PRN for CONSTIPATION Allergies Coded Allergies: No Known Allergies (Unverified , 1/30/17) A-FIB/CHADSVASC A-FIB History Current/History of A-Fib/PAF?: No Current PO Anticoag Therapy: No Age/Risk Factor Scoring CHADSVASC: CHADSVASC Response (Comments) Value Age Risk Factor Age < 65 years old 0 Gender Risk Factor Male 0 Hx of CHF No 0 Hx of HTN No 0 Hx of Stroke/TIA/or VTE No 0 Hx of Vascular Disease No 0 Total 0 Treatment Treatment ordered: Other Other anticoagulant ordered: Christi Velazquez MD Feb 16, 2021 15:52
[2021-02-16 16:12] LABS: INR 1.28; PROTHROMBIN TIME 16.4 SECONDS (12.7-14.5)
[2021-02-16 16:13] LABS: PARTIAL THROMBOPLASTIN TIME 30.2 SECONDS (25.9-37.0)
[2021-02-16] MEDS ORDERED: MIRALAX *UNIT DOSE* 17GM PACKET PO PRN (16:30)
[2021-02-16] MEDS ORDERED: carisoprodoL 350 MG TAB PO PRN (16:30)
[2021-02-16 17:10] VITALS: BP 94/57
[2021-02-16] MEDS: oxyCODONE 5MG TAB PO PRN ×2 (17:22→23:31)
[2021-02-16] MEDS ORDERED: ZOLEDRONIC ACID 4 MG in IV 1 EA IV ONE (18:00)
[2021-02-16 18:31] VITALS: BP 99/65
[2021-02-16 20:00] VITALS: BP 91/55
[2021-02-16] MEDS: TAMSULOSIN 0.4 MG CAP PO SCH (20:15)
[2021-02-16] MEDS: cefTRIAXone SOD 1 GM in D5W MINI-BAG PLUS 50 ML IV SCH (20:16)
[2021-02-16] MEDS: CALCITONIN SALMON (MIACALCIN) 400INTERNATIONAL UNITS/2ML INJ (J0630) SQ SCH (20:16)
[2021-02-16 21:57] LABS: BLOOD UREA NITROGEN 13 MG/DL (7-18); CALCIUM LEVEL 11.1 MG/DL (8.8-10.2); CARBON DIOXIDE LEVEL 30 MEQ/L (21-32); CHLORIDE LEVEL 98 MEQ/L (98-107); CREATININE FOR GFR 0.86 MG/DL (0.70-1.30); GLOMERULAR FILTRATION RATE > 60.0 (>49); GLUCOSE, FASTING 101 MG/DL (70-100); POTASSIUM SERUM 3.5 MEQ/L (3.5-5.1); SODIUM LEVEL 134 MEQ/L (136-145)
[2021-02-17] VITALS: BP 99/63
[2021-02-17 04:00] VITALS: BP 102/64
[2021-02-17] MEDS: CALCITONIN SALMON (MIACALCIN) 400INTERNATIONAL UNITS/2ML INJ (J0630) SQ SCH ×3 (05:27→23:52)
[2021-02-17] MEDS: NS 1,000 ML IV SCH ×2 (05:28→16:00)
[2021-02-17] MEDS: oxyCODONE 5MG TAB PO PRN ×3 (05:28→21:04)
[2021-02-17 05:32] LABS: HEMATOCRIT 24.8 % (42.0-52.0); HEMOGLOBIN 7.7 g/dl (13.5-17.5); MEAN CORPUSCULAR HEMOGLOBIN 27.5 pg (27.0-33.0); MEAN CORPUSCULAR VOLUME 88.6 fl (80.0-96.0); PLATELET COUNT, AUTOMATED 439 10^3/uL (150-450); WHITE BLOOD COUNT 8.4 10^3/uL (4.0-10.0)
[2021-02-17 06:06] LABS: ALBUMIN 1.7 GM/DL (3.2-5.2); ALT/SGPT 13 U/L (12-78); BILIRUBIN,TOTAL 0.3 MG/DL (0.2-1.0); BLOOD UREA NITROGEN 10 MG/DL (7-18); CALCIUM LEVEL 10.2 MG/DL (8.8-10.2); CARBON DIOXIDE LEVEL 29 MEQ/L (21-32); CHLORIDE LEVEL 100 MEQ/L (98-107); CREATININE FOR GFR 0.69 MG/DL (0.70-1.30); GLOMERULAR FILTRATION RATE > 60.0 (>49); GLUCOSE, FASTING 98 MG/DL (70-100); POTASSIUM SERUM 3.3 MEQ/L (3.5-5.1); SODIUM LEVEL 139 MEQ/L (136-145); TOTAL PROTEIN 5.3 GM/DL (6.4-8.2)
[2021-02-17 08:00] VITALS: BP 95/63
[2021-02-17] MEDS ORDERED: POTASSIUM CHLORIDE 10% LIQ 20 MEQ/15 ML UDC PO ONE (08:00)
[2021-02-17] MEDS: ENOXAPARIN 40MG/0.4ML SYRINGE (J1650 PER 10MG) SC SCH (08:17)
[2021-02-17] MEDS: ASPIRIN 81MG ENTERIC TABLET PO SCH (08:17)
[2021-02-17] MEDS: FOLIC ACID 1 MG TAB PO SCH (08:17)
[2021-02-17] MEDS: TAMSULOSIN 0.4 MG CAP PO SCH ×2 (08:17→21:02)
[2021-02-17] MEDS ORDERED: NS 500 ML IV ONE (11:35)
[2021-02-17 12:00] VITALS: BP 100/61
[2021-02-17 16:00] VITALS: BP 102/67
[2021-02-17 18:29] LABS: ALBUMIN 1.5 GM/DL (3.2-5.2); ALT/SGPT 12 U/L (12-78); BILIRUBIN,TOTAL 0.3 MG/DL (0.2-1.0); BLOOD UREA NITROGEN 7 MG/DL (7-18); CALCIUM LEVEL 10.1 MG/DL (8.8-10.2); CARBON DIOXIDE LEVEL 27 MEQ/L (21-32); CHLORIDE LEVEL 103 MEQ/L (98-107); CREATININE FOR GFR 0.62 MG/DL (0.70-1.30); GLOMERULAR FILTRATION RATE > 60.0 (>49); GLUCOSE, FASTING 90 MG/DL (70-100); POTASSIUM SERUM 3.1 MEQ/L (3.5-5.1); SODIUM LEVEL 139 MEQ/L (136-145); TOTAL PROTEIN 5.9 GM/DL (6.4-8.2)
[2021-02-17] MEDS ORDERED: POTASSIUM CHLORIDE 10MEQ SR TABLET PO ONE (19:45)
[2021-02-17 20:00] VITALS: BP 95/69
--- NOTE | 2021-02-17 20:25 | IPNPDOC ---
Date Seen The patient was seen on 02/17/21. Progress Note SUBJECTIVE: Improving calcium to 10.1 today with treatment. Blood pressure remains on the lower side; however, due to patient's cancer and malnutrition this may be his baseline. Potassium was low and was replaced. The patient has no acute complaints and denies chest pain, shortness of breath, fevers, chills, nausea or vomiting. OBJECTIVE: PHYSICAL EXAMINATION: VS: Please see below CONSTITUTIONAL: No acute distress, resting comfortably, AAO x 3 EYES: PERRLA, EOM intact HENT, MOUTH: Normocephalic, atraumatic, moist mucous membranes NECK: SUPPLE, no JVD, no lymphadenopathy, no carotid bruit CV: Regular rate and rhythm, S1S2 normal, no murmurs/rubs/gallops RESPIRATORY: Clear to auscultation bilaterally, no rales/rhonchi/wheezes GI: BS positive in 4 quadrants, soft, nontender, nondistended, no rebound or guarding, no organomegaly, right-sided nephrostomy tube in place : Deferred MUSCULOSKELETAL: Normal ROM. No cyanosis, clubbing, swelling, joint deformity, extremity edema INTEGUMENTARY: Intact, no rashes, no lesions, no erythema NEUROLOGIC: Cranial Nerves II-XII are intact, no focal deficits PSYCHIATRIC: Mood and affect are normal LABORATORY DATA: Please see below IMAGING: CT head: No acute intracranial abnormality. CXR: No acute abnormality CT cervical spine: 1. Extensive osseous metastatic disease, significantly increased from 03/23/2020. 2. New pathologic C3 superior endplate compression fracture. Mild C3 vertebral body height loss is present. 3. Age-indeterminate pathologic fracture involving the left C5 transverse process, new since 03/23/2020 4. Chronic findings as discussed above. ASSESSMENT: 60-year-old with metastatic prostatic cancer with mets to bones and brain s/p chemo therapy and radiotherapy to prostate, recurrent hypercalcemia 2 /2 to malignancy, bilateral hydronephrosis R>L s/p right nephrostomy tube placement in dec 2020, obstructive uropathy from enlarged prostate patient self catheterizes, chronic anemia( Hb 8.8-9.0 01/2021), folic acid def and iron def admitted to medicine service for further treatment of hypotension, rule out UTI with sepsis, dehydration, recurrent hyperglycemia in the setting of metastatic disease. PLAN: Recurrent hypercalcemia 2/2 to metastatic prostate cancer to bone -Ca improved to 10.1 from 12.9 admission, AMS persists intermittently -Discussed case with nephrology over phone, no official consult -Discussed risks of bisphosphonates with patient's son (father confused) on 02/16/21, including jaw necrosis which patient has already had. Would like us to give to help keep calcium levels down and help prevent readmission. -Given zolendronic acid 4mg x 1 and on calcitonin 200 mg SC Q8H x 6 doses (last dose 02/18/21) -Stopped IVFs today -Daily calcium levels, CMP, CBC -Monitor for s/s of hypocalcemia Acute Metabolic encephalopathy likely to hypercalcemia, UTI with resolved sepsis -UA +, f/u UCx, BCx NG -CXR neg -LA pending -Ceftriaxone daily (day 2), s/p levofloxacin in ER. Hypotension likely 2/2 to dehydration but also baseline is low (90-low 100's systolic) -S/p IVFS -Encourage fluid intake, food intake UTI, recurrent and likely 2/2 to hx of obstructive uropathy with right hydronephrosis, left hydro -has right nephrostomy tube and self catheterizes -ceftriaxone (day 2), f/u UCx Chronic anemia 2/2 to to anemia of chronic disease, folic acid def and iron def -Hb lower today, no s/s of bleeding and likely dilutional -Stopped IVFs so should rebound -will continue with folate, iron. -Daily CBC Prostate cancer with mets to bone with chronic pain -has large bladder mass, and right proximal ureteral mass with bulky lymphadenopathy -Got RT to prostate and getting Chemo, per heme/onc notes not much else to do -Heme/onc to suggest palliative care -C/w home pain meds, tamsulosin Deconditioning 2/2 to acute and chronic disease, worsening -PT: likely 2-3 more sessions then discharge home DVT px -Lovenox SC DISPOSITION: Admitted as acute inpatient. Plan is to lower calcium levels and return to home living situation likely with home services, PT/OT. FULL CODE. VS, I&O, 24H, Fishbone Vital Signs/I&O Vital Signs Date Time Temp Pulse Resp B/P (MAP) Pulse Ox O2 Delivery O2 Flow Rate FiO2 02/17/21 16:00 97.9 87 16 102/67 (79) 97 Room Air 02/17/21 11:51 0.0 I&O- Last 24 Hours up to 6 AM 02/17/21 06:00 Intake Total 3960 ml Output Total 2600 ml Balance 1360 ml Laboratory Data 24H LABS Laboratory Tests 2 02/16/21 21:17: Anion Gap 6L, Glomerular Filtration Rate > 60.0, Calcium Level 11.1H 02/17/21 05:15: Anion Gap 10, Glomerular Filtration Rate > 60.0, Calcium Level 10.2, Nucleated Red Blood Cells % (auto) 0.0, Whole Blood Ionized Calcium 5.7H, Total Bilirubin 0.3, Aspartate Amino Transf (AST/SGOT) 48H, Alanine Aminotransferase (ALT/SGPT) 13, Alkaline Phosphatase 130H, Total Protein 5.3#L, Albumin 1.7L, Albumin/Globulin Ratio 0.5 02/17/21 17:49: Anion Gap 9, Glomerular Filtration Rate > 60.0, Calcium Level 10.1, Total B ilirubin 0.3, Aspartate Amino Transf (AST/SGOT) 47H, Alanine Aminotransferase (ALT/SGPT) 12, Alkaline Phosphatase 127H, Total Protein 5.9L, Albumin 1.5L, Albumin/Globulin Ratio 0.3 CBC/BMP Laboratory Tests 02/16/21 21:17 02/17/21 05:15 02/17/21 17:49 Microbiology Microbiology 02/16/21 Urine Culture, Received Pending 02/16/21 Blood Culture - Preliminary, Resulted No growth after 24 hours . All specim... 02/16/21 Blood Culture - Preliminary, Resulted No growth after 24 hours . All specim... Christi Hughes MD Feb 17, 2021 20:25
[2021-02-17] MEDS: cefTRIAXone SOD 1 GM in D5W MINI-BAG PLUS 50 ML IV SCH (21:01)
[2021-02-18] VITALS: BP 104/67
[2021-02-18] MEDS: CALCITONIN SALMON (MIACALCIN) 400INTERNATIONAL UNITS/2ML INJ (J0630) SQ SCH (03:43)
[2021-02-18] MEDS: oxyCODONE 5MG TAB PO PRN ×2 (03:43→11:41)
[2021-02-18 04:00] VITALS: BP 97/58
[2021-02-18 06:07] LABS: HEMATOCRIT 26.2 % (42.0-52.0); HEMOGLOBIN 8.1 g/dl (13.5-17.5); MEAN CORPUSCULAR HEMOGLOBIN 27.6 pg (27.0-33.0); MEAN CORPUSCULAR HGB CONC 30.9 g/dl (32.0-36.5); MEAN CORPUSCULAR VOLUME 89.1 fl (80.0-96.0); PLATELET COUNT, AUTOMATED 448 10^3/uL (150-450); RED BLOOD COUNT 2.94 10^6/uL (4.30-6.10); WHITE BLOOD COUNT 7.9 10^3/uL (4.0-10.0)
[2021-02-18 06:31] LABS: ALBUMIN 1.6 GM/DL (3.2-5.2); ALT/SGPT 11 U/L (12-78); BILIRUBIN,TOTAL 0.2 MG/DL (0.2-1.0); BLOOD UREA NITROGEN 6 MG/DL (7-18); CALCIUM LEVEL 9.1 MG/DL (8.8-10.2); CARBON DIOXIDE LEVEL 27 MEQ/L (21-32); CHLORIDE LEVEL 104 MEQ/L (98-107); GLOMERULAR FILTRATION RATE > 60.0 (>49); GLUCOSE, FASTING 98 MG/DL (70-100); POTASSIUM SERUM 3.6 MEQ/L (3.5-5.1); SODIUM LEVEL 140 MEQ/L (136-145); TOTAL PROTEIN 5.3 GM/DL (6.4-8.2)
[2021-02-18 08:00] VITALS: BP 101/70
[2021-02-18] MEDS: TAMSULOSIN 0.4 MG CAP PO SCH (08:35)
[2021-02-18] MEDS: ENOXAPARIN 40MG/0.4ML SYRINGE (J1650 PER 10MG) SC SCH (08:35)
[2021-02-18] MEDS: FOLIC ACID 1 MG TAB PO SCH (08:35)
[2021-02-18] MEDS: ASPIRIN 81MG ENTERIC TABLET PO SCH (08:35)
[2021-02-18] MEDS ORDERED: FERROUS GLUCONATE 324 MG TAB PO SCH (09:00)
[2021-02-18 12:00] VITALS: BP 108/73
[2021-02-18] MEDS ORDERED: LEVO500T3 PO (12:12)
--- NOTE | 2021-02-18 20:14 | DS.PDOC ---
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 Patient was recently admitted here for AMS likely 2/2 to hypercalcemia from 03/07-01/18. He was discharged home with nasal calcitonin. Family says he was ok for only several days then he begins to become more confused, attributing these symptoms to when his calcium levels are high. The patient states that when he fell it was to his knees and he did not hit his head. He has not been eating well at home but manages to drink better. He complains of worsening bone pain in his back which is attributed to his metastatic disease. According to his family at the bedside, the patient has been seeing his cancer doctor and primary care for pain control. According to notes from his oncology office chemotherapy and radiation has been exhausted, next steps or palliative care. Level of care has been discussed with the patient and he once to continue to be a code. The patient denies chest pain, shortness of breath, nausea, vomiting, diarrhea, blurry vision, headedness, dizziness. He does admit to lack of energy, loss of appetite, weight loss, back and hip pain. In the emergency room, blood pressure was low with systolic in the 90s. He was given normal saline which increased systolic slightly. Patient's UA + for UTI, he was slightly tachycardic. Patient appeared confused intermittently. When asked the family if this is similar to his prior admission day stated yes. He was given levofloxacin 1 dose. WBC slightly elevated. Calcium was elevated at 12.9. The patient's oral mucosa appeared dry and he appeared dehydrated, could not rule out sepsis secondary to UTI. The patient was ultimately admitted to medicine service for further treatment of hypotension, rule out UTI with sepsis, dehydration, recurrent hyperglycemia in the setting of metastatic disease. HOSPITAL COURSE: Please see below under "plan" PAST MEDICAL HISTORY: Metastatic prostatic cancer with mets to bones and brain s/p chemo therapy and radiotherapy to prostate, recurrent hypercalcemia 2/2 to malignancy, bilateral hydronephrosis R>L s/p right nephrostomy tube placement in dec 2020, obstructive uropathy from enlarged prostate patient self catheterizes, chronic anemia( Hb 8.8-9.0 01/2021), folic acid def and iron def PAST SURGICAL HISTORY: Right nephrostomy tube placement LEFT WRIST SURGERY 30 YEARS AGO ORAL SURGERY 04/2019 RT ELBOW-ULNAR NERVE REPAIR 2018 FAMILY HISTORY: Cancer SOCIAL HISTORY: Smoker: quit greater than 1 year ALLERGIES: Please see below. DISCHARGE MEDICATIONS: Please see below. PHYSICAL EXAMINATION: VS: Please see below CONSTITUTIONAL: No acute distress, resting comfortably, AAO x 3 EYES: PERRLA, EOM intact HENT, MOUTH: Normocephalic, atraumatic, moist mucous membranes NECK: SUPPLE, no JVD, no lymphadenopathy, no carotid bruit CV: Regular rate and rhythm, S1S2 normal, no murmurs/rubs/gallops RESPIRATORY: Clear to auscultation bilaterally, no rales/rhonchi/wheezes GI: BS positive in 4 quadrants, soft, nontender, nondistended, no rebound or guarding, no organomegaly, right-sided nephrostomy tube in place : Deferred MUSCULOSKELETAL: Normal ROM. No cyanosis, clubbing, swelling, joint deformity, extremity edema INTEGUMENTARY: Intact, no rashes, no lesions, no erythema NEUROLOGIC: Cranial Nerves II-XII are intact, no focal deficits PSYCHIATRIC: Mood and affect are normal LABORATORY DATA: Please see below IMAGING: CT head: No acute intracranial abnormality. CXR: No acute abnormality CT cervical spine: 1. Extensive osseous metastatic disease, significantly increased from 03/23/2020. 2. New pathologic C3 superior endplate compression fracture. Mild C3 vertebral body height loss is present. 3. Age-indeterminate pathologic fracture involving the left C5 transverse process, new since 03/23/2020 4. Chronic findings as discussed above. ASSESSMENT: 60-year-old with metastatic prostatic cancer with mets to bones and brain s/p chemo therapy and radiotherapy to prostate, recurrent hypercalcemia 2/2 to malignancy, bilateral hydronephrosis R>L s/p right nephrostomy tube placement in dec 2020, obstructive uropathy from enlarged prostate patient self catheterizes, chronic anemia( Hb 8.8-9.0 01/2021), folic acid def and iron def admitted to medicine service for further treatment of hypotension, rule out UTI with sepsis, dehydration, recurrent hyperglycemia in the setting of metastatic disease. PLAN: Recurrent hypercalcemia 2/2 to metastatic prostate cancer to bone -Ca improved to 9.1 from 12.9 admission, AMS resolved -Discussed case with nephrology over phone, no official consult -Discussed risks of bisphosphonates with patient's son (father confused) on 02/16/21, including jaw necrosis which patient has already had. Would like us to give to help keep calcium levels down and help prevent readmission. -Given zolendronic acid 4mg x 1 and on calcitonin 200 mg SC Q8H -The patient was discharged without calcitonin nasal spray and encouraged to follow-up with his primary care provider as scheduled on discharge. He also should follow-up with his oncologist and update them on medication changes. He should be watched closely as outpatient and monitored for s/s of hypocalcemia. -Family was educated at great detail before discharge and they understood discharge plan. Acute Metabolic encephalopathy likely to hypercalcemia, UTI with sepsis-resolved -uti, BCx NG -CXR neg -LA WNL -Continue with levofloxacin by mouth Hypotension likely 2/2 to dehydration but also baseline is low (90-low 100's systolic)-resolved -S/p IVFS -Encourage fluid intake, food intake Escherichia coli UTI likely 2/2 to hx of obstructive uropathy with right hydronephrosis, left hydro -has right nephrostomy tube and self catheterizes. Right-sided nephrostomy tube was told that during his hospitalizations with loosening of the sutures; however, remains in place and was draining well -Recommend continue levofloxacin 7 days Chronic anemia 2/2 to to anemia of chronic disease, folic acid def and iron def -no s/s of bleeding and likely dilutional - folate, iron. Prostate cancer with mets to bone with chronic pain -has large bladder mass, and right proximal ureteral mass with bulky lymphadenopathy -Got RT to prostate and getting Chemo, per heme/onc notes not much else to do -Heme/onc to suggest palliative care -C/w home pain meds, tamsulosin Deconditioning 2/2 to acute and chronic disease, worsening -PT: Cleared for home -Home health referral place, PT referral placed DISPOSITION: Follow-up with PCP as scheduled, oncologist in [place] as scheduled. Encouraging primary care office to check calcium level on next visit and regularly after that. TIME SPENT ON DISCHARGE: 35 minutes. Vital Signs/I&Os Vital Signs Date Time Temp Pulse Resp B/P (MAP) Pulse Ox O2 Delivery O2 Flow Rate FiO2 02/18/21 12:44 19 02/18/21 12:00 97.5 89 108/73 (85) 96 Room Air 02/17/21 11:51 0.0 I&O- Last 24 Hours up to 6 AM 02/18/21 06:00 Intake Total 3885 ml Output Total 1825 ml Balance 2060 ml Laboratory Data Labs 24H Laboratory Tests 2 02/18/21 05:48: Nucleated Red Blood Cells % (auto) 0.0, Anion Gap 9, Glomerular Filtration Rate > 60.0, Calcium Level 9.1, Total Bilirubin 0.2, Aspartate Amino Transf (AST/SGOT) 47H, Alanine Aminotransferase (ALT/SGPT) 11L, Alkaline Phosphatase 131H, Total Protein 5.3L, Albumin 1.6L, Albumin/Globulin Ratio 0.4 CBC/BMP Laboratory Tests 02/18/21 05:48 Microbiology Microbiology 02/16/21 Urine Culture - Final, Complete Escherichia Coli 02/16/21 Blood Culture - Preliminary, Resulted No Growth after 48 hours. All Specime... 02/16/21 Blood Culture - Preliminary, Resulted No Growth after 48 hours. All Specime... Discharge Medications Scheduled Aspirin (Aspirin EC) 81 Mg Tablet.dr, 81 MG PO DAILY, (Reported) Ferrous Gluconate (Ferrous Gluconate) 324 Mg Tablet, 324 MG PO Q2D, (Reported) Folic Acid (Folic Acid) 1 Mg Tablet, 1 MG PO DAILY, (Reported) Levofloxacin (Levofloxacin) 500 Mg Tablet, 500 MG PO DAILY Tamsulosin HCl (Flomax) 0.4 Mg Cap, 0.4 MG PO BID, (Reported) Vitamin B Complex (Vitamin B Complex) 1 Each Tablet, 1 TAB PO DAILY, (Reported) Scheduled PRN Carisoprodol (Soma) 350 Mg Tablet, 350 MG PO TID PRN for PAIN LEVEL 3-5, (Reported) Oxycodone Hcl (Oxycodone HCl) 15 Mg Tablet, 15 MG PO QID PRN for PAIN LEVEL 5- 10, (Reported) Polyethylene Glycol 3350 (Miralax) 17 Gm Powd.pack, 1 PKT PO DAILYPRN PRN for CONSTIPATION Allergies Coded Allergies: No Known Allergies (Unverified , 05/29/16) Christi Hughes MD Feb 18, 2021 20:14
== END 2021-02-18 14:53 | disposition home health service (06) | DRG 720 ==
LOC: M ED 11:18 → M ED INP 14:51 → ENRESERV 16:10 → M PCU 16:48
PROVIDERS: ADMIT Internal Medicine; ATTEND Internal Medicine
DX: A41.9 Sepsis, unspecified organism (principal); G93.41 Metabolic encephalopathy; C79.51 Secondary malignant neoplasm of bone; C79.31 Secondary malignant neoplasm of brain; E83.52 Hypercalcemia; N13.0 Hydronephrosis with ureteropelvic junction obstruction; C61 Malignant neoplasm of prostate; N39.0 Urinary tract infection, site not specified; B96.20 Unspecified Escherichia coli [E. coli] as the cause of diseases classified elsewhere; D50.9 Iron deficiency anemia, unspecified; D63.8 Anemia in other chronic diseases classified elsewhere; Z92.21 Personal history of antineoplastic chemotherapy; Z92.3 Personal history of irradiation; Z20.822 Contact with and (suspected) exposure to COVID-19; Z79.82 Long term (current) use of aspirin; Z79.899 Other long term (current) drug therapy; Z96.0 Presence of urogenital implants; Z87.891 Personal history of nicotine dependence

== ENCOUNTER → 2021-02-22 | Outpatient (REF) | payer OTHER ==
[~2021-02-22] MED LIST changes: -CALCITONIN NASAL SPRAY 3.7 ML BTL SCH; +LEVO500T3 PO; +RA B1TAB2 PO
== END ==
LOC: M SFHCPLAZ 09:59
PROVIDERS: ATTEND Family Medicine
DX: Z53.9 Procedure and treatment not carried out, unspecified reason (principal)

== ENCOUNTER → 2021-02-22 | Outpatient (CLI) | payer OTHER ==
[2021-02-22 13:20] LABS: BASO % 0.4 % (0.0-1.0); EOS % 0.4 % (0.0-3.0); HEMATOCRIT 29.6 % (42.0-52.0); LYMPH # 1.2 10^3/uL (1.5-5.0); LYMPH % 13.2 % (24.0-44.0); MEAN CORPUSCULAR HEMOGLOBIN 26.9 pg (27.0-33.0); MEAN CORPUSCULAR HGB CONC 30.4 g/dl (32.0-36.5); MEAN CORPUSCULAR VOLUME 88.6 fl (80.0-96.0); MONO # 0.6 10^3/uL (0.0-0.8); MONO % 6.1 % (2.0-8.0); NEUTROPHILS # 7.2 10^3/uL (1.5-8.5); NEUTROPHILS % 79.1 % (36.0-66.0); PLATELET COUNT, AUTOMATED 496 10^3/uL (150-450); RED BLOOD COUNT 3.34 10^6/uL (4.30-6.10); WHITE BLOOD COUNT 9.1 10^3/uL (4.0-10.0)
[2021-02-22 13:21] LABS: APPEARANCE, URINE HAZY (CLEAR); BACTERIA, URINE AUTO NEGATIVE (NEGATIVE); BILIRUBIN, URINE AUTO NEGATIVE (NEGATIVE); BLOOD, URINE BLOOD 2+ (NEGATIVE); COLOR, URINE STRAW (YELLOW); GLUCOSE, URINE (UA) AUTO NEGATIVE (NEGATIVE); KETONE, URINE AUTO NEGATIVE (NEGATIVE); LEUKOCYTE ESTERASE, URINE AUTO 3+ (NEGATIVE); NITRITE, URINE AUTO NEGATIVE (NEGATIVE); PROTEIN, URINE AUTO 1+ mg/dL (NEGATIVE); RBC, URINE AUTO 0 /HPF (0-3); SPECIFIC GRAVITY URINE AUTO 1.002 (1.002-1.035); SQUAMOUS EPITHELIAL CELL UR AU 0 /HPF (0-6); UROBILINOGEN, URINE AUTO 0.2 mg/dL (0.0-2.0); WBC, URINE AUTO 22 /HPF (0-3)
[2021-02-22 14:15] LABS: BLOOD UREA NITROGEN 7 MG/DL (7-18); CALCIUM LEVEL 9.3 MG/DL (8.8-10.2); CARBON DIOXIDE LEVEL 27 MEQ/L (21-32); CHLORIDE LEVEL 101 MEQ/L (98-107); CREATININE FOR GFR 0.83 MG/DL (0.70-1.30); GLOMERULAR FILTRATION RATE > 60.0 (>49); GLUCOSE, FASTING 119 MG/DL (70-100); POTASSIUM SERUM 3.8 MEQ/L (3.5-5.1); SODIUM LEVEL 136 MEQ/L (136-145)
== END ==
LOC: M PLALAB 10:31
PROVIDERS: ATTEND Student in an Organized Health Care Education/Training Program
DX: E83.52 Hypercalcemia (principal); N39.0 Urinary tract infection, site not specified

== ENCOUNTER 2021-04-02 13:59 | Emergency (ER) | payer OTHER ==
[~2021-04-02] VITALS: Ht 172.7 cm; Wt 67.3 kg
--- OUTSIDE RECORDS SUMMARY | 2021-04-02 14:08 | CCD ---
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 Diagnosis Active 2021-02-20 Maria De Jesus Lozoyao lf Hypercalcemia Hypercalcemia Diagnosis Active 2021-02-20 Maria De Jesus Garciaf Anemia in other chronic diseases classified elsewhere Anemia in other chronic diseases classified elsewhere Diagnosis Active 2021-02-20 Maria De Jesus Lozoyaolf Pain frequent pain Pain Mgmt Active 2021-02-20 12:30:00 Yolanda Dixon Pain knowledge/skill deficit: pt Pain Mgmt Active 2021-02-20 12:30:0 0 Yolanda Dixon Respiratory dyspnea present Respiratory Active 2021-02-20 12:30:00 Yolanda Dixon Integument skin integrity risk Integument Active 2021-02-20 12:30:00 Yolanda Dixon Integument knowledge/skill deficit: pt Integument Active 2021-02-20 12:30:00 Yolanda Dixon Elimination catheter present Elimination Active 2021-02-20 12:30:00 Yolanda Dixon Elimination knowledge/skill deficit: pt Elimination Active 2020-04 12:30:00 Yolanda Dixon Activity ADL assistance required Activity Active 2021-02-20 12:30:00 Yolanda Dixon Activity knowledge/skill deficit: pt Activity Active 2021-02-20 12:30:0 0 Yolanda Dixon Activity self-care deficit Activity Active 2021-02-20 12:30:00 Yolanda Dixon Safety cannot be left alone Safety Active 2021-02-20 12:30:00 Yolanda Dixon Safety knowledge/skill deficit: pt Safety Active 2021-02-20 12:30:00 Yolanda Destiny Safety fall risk factor present Safety Active 2021-02-20 12:30:00 Yolanda Destiny Safety risk for hospitalization Safety Active 2021-02-20 12:30:00 Yolanda Destiny Medication potential clinically significant medication issue Meds Active 2021-02-20 12:30:00 Yolanda Destiny Diagnoses knowledge/skill deficit: pt Diagnoses Active 2021-02-20 12:30 :00 Yolanda Destiny Musculoskeletal transfer assistance required Musculoskeletal Active 2021-02-20 12:30:00 Yolanda Destiny Musculoskeletal knowledge/skill deficit: pt Musculoskeletal Active 2021-02-20 12:30:00 Yolanda Destiny Respiratory lung sounds deficit Respiratory Active 2021-03-01 09:30:00 Yolanda Destiny Allergies, Adverse Reactions, Alerts Allergy Name Allergy Type Status Severity Reaction(s) Onset Date Inacti ve Date Treating Clinician Comments Unknown None Active Unknown None Unknown No Known Allergies For This Patient Medications Ordered Medication Name Filled Medication Name Start Date Stop Da te Current Medication? Ordering Clinician Indication Dosage Frequency Signature (SIG) Comments Components levoFLOXacin 500 mg tablet levoFLOXacin 500 mg tablet 2021-02-202020 Yes Abram Mejia Unknown aspirin 81 mg chewable tablet aspirin 81 mg chewable tablet 2021-01-29 4 Yes Abram Mejia Unknown Soma 350 mg tablet Soma 350 mg tablet 2021-02-20 Yes Malcolm Mejia Unknown Unknown ferrous gluconate 324 mg (37.5 mg iron) tablet ferrous gluconate 324 mg (37.5 mg iron) tablet 2021-02-20 2021-03-17 Yes Abram Mejia Unknown folic acid 1 mg tablet folic acid 1 mg tablet 2021-02-20 Yes Abram Mejia Unknown oxyCODONE 15 mg tablet oxyCODONE 15 mg tablet 2021-02-20 Yes Abram Mejia Unknown Miralax 17 gram oral powder packet Miralax 17 gram oral powd er packet 2021-02-20 Yes Abram Mejia Unknown Flomax 0.4 mg capsule Flomax 0.4 mg capsule 2021-02-20 2021-03-17 Yes Abram Mejia Unknown B-complex with vitamin C capsule B-complex with vitamin C capsul e 2021-02-20 2021-03-17 Yes Abram Mejia Unknown Unknown TylenoL 325 mg tablet TylenoL 325 mg tablet 2021-02-20 Yes Abram Hill Unknown Unknown ferrous gluconate 324 mg (37.5 mg iron) tablet ferrous gluconate 324 mg (37.5 mg iron) tablet 2021-03-17 Yes Abram Mejia Unknown Unknown Flomax 0.4 mg capsule Flomax 0.4 mg capsule 2021-03-17 Yes Abram Hill Unknown Unknown Vital Signs Vital Name Observation Time Observation Value Comments SYSTOLIC mm[Hg] 2021-03-30 18:21:19 109 mm[Hg] mm[Hg] Method: Si t DIASTOLIC mm[Hg] 2021-03-30 18:21:19 79 mm[Hg] mm[Hg] Method: Si t PULSE 2021-03-30 18:21:19 103 /min /min RESP RATE 2021-03-30 18:21:19 16 /min /min TEMP 2021-03-30 18:21:19 95.9 [degF] Procedures This patient has no known procedures. Results This patient has no known results.
--- OUTSIDE RECORDS SUMMARY | 2021-04-02 14:08 | CCD ---
Author Author [facility] Organization [facility] Address Unknown Phone Unavailable Care Team Providers Care In Home Caregiver Name Role Phone Mann Hawkins Unavailable PROBLEMS ALLERGIES No Known Allergies ENCOUNTERS from 1960 to 2021-03-14 IMMUNIZATIONS No Information SOCIAL HISTORY REASON FOR REFERRAL No Information VITAL SIGNS MEDICATIONS PROCEDURES No Information RESULTS No Results REASON FOR VISIT MEDICAL (GENERAL) HISTORY Goals Section Health Concerns MEDICAL EQUIPMENT No Information MENTAL STATUS FUNCTIONAL STATUS ASSESSMENTS No Information PLAN OF TREATMENT Insurance Providers
--- OUTSIDE RECORDS SUMMARY | 2021-04-02 14:08 | CCD ---
Author Author [facility] Organization [facility] Address Unknown Phone Unavailable Care Team Providers Care Seed Buyer Name Role Phone Unavailable Unavailable Problems Condition [...] Pain Mgmt Active 2021-02-20 12:30:0 0 Yolanda Dxion Respiratory dyspnea present Respiratory Active 2021-02-20 12:30:00 [...]
--- OUTSIDE RECORDS SUMMARY | 2021-04-02 14:08 | CCD ---
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 Act dunia confirmed 48658738 Problem PSA elevation R97.2 Active confirmed 846976 005 Problem Neuropathy G62.9 Active confirmed 555420032 Problem Malignant neoplasm of prostate C61 Active confir med 99099897 Problem Cancer related pain G89.3 Active confirmed 782039756 Problem Situational depression F43.21 Active confirmed 37009248 Problem 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 Active confirmed 585481906 Problem Psoriasis L40.9 Active confirmed 8849766 Problem Obstructive uropathy N13.9 Active confirmed 9036216 Problem Major osseous defect, other site M89.78 Active conf irmed 59697918 Problem Essential hypertension I10 Active confirmed 39267400 Problem Hypercalcemia E83.52 Active confirmed 852926 09 Problem Chronic fatigue R53.82 Active confirmed 5270 2003 Problem Carpal tunnel syndrome of right wrist G56.01 Ac tive confirmed 937574521599063 Problem Carpal tunnel syndrome of left wrist G56.02 Act dunia confirmed 588901799485938 Problem 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 Active confirmed 545570501 Problem 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 Active confirmed 802551193 ALLERGIES No Known Allergies ENCOUNTERS from 1960 to 2021-03-04 Encounter Location Date Provider Diagnosis [address] [phone] [place] [address] Feb, Mann Hawkins IMMUNIZATIONS No Information SOCIAL HISTORY [...] Notes Start Da te End Date Status Ondansetron 4 MG 1 tablet on the tongue and a llow to dissolve Orally every 4 q for nausea for 30 days Active May Have - please dispense 14 staight c ath Urethral 9 times daily as needed for urinary obstruction for 90 days Active Iron 325 (65 Fe) MG 1 tablet Orally Every other day for 90 days Active oxyCODONE HCl 5 MG 1 tablet Orally every 4 hrs as needed MD [place] [address] Peralta increased dosing Active Gabapentin 300 MG 2 capsule Orally bid for 90 days Active Xtandi 40 MG 4 capsules Orally Once a day Not-Taking Ensure - 250 ml Orally tid for 90 days Jan, Active Marinol 10 MG 1 capsule in the evening at bedtime Orally three times daily. Code D for 90 days Not-Taking Lupron every 3 months Active Ibuprofen 800 MG 1 tablet with food or milk as needed Orally bid for 30 days Dec, Active Soma 350 MG 1 tab Orally three times ronak ly as needed for palliative MDD 3 tabs. Code D for 90 days Active Clobetasol Propionate 0.05 % 1 application to affected area Externally Twice a day if rash recurs on body (not face, groin, armpits) for 30 days Active May Have - 14 Urdu straight catheter z85.46 intraurethral 10x/Day for 30 day(s) Apr, Active Tamsulosin HCl 0.4 MG 1 capsule Orally Once a day Active Folic Acid 1 MG 1 tablet Orally Once a day for 30 day(s) Active levoFLOXacin 500 MG 1 tablet Orally Once a day for 10 day(s) Active Diclofenac Sodium 3 % 1 application Transdermal Twice a day for 30 day(s) August, Active Optifoam Gentle Foam Dressings as directed Feb, Active May Have - please dispense r wrist spin t without thumb spica R hand Daily when sleeping for 9999 days Oct, Active May Have - please dispense 16 straight cath Urethral 2x times daily as needed for urinary obstruction from large clots for 30 day(s) Active Wrist Brace/Right Large - please dispense r forearm wr ist spint without spica Wear daily and remove at bedtime for 9999 days Active PROCEDURES No Information RESULTS No Results REASON FOR VISIT wound MEDICAL (GENERAL) HISTORY Type Description Date Medical [...] Medication Name Sig Start Date Stop Date Iron 325 (65 Fe) MG 1 tablet Orally Every other day for 90 days Gabapentin 300 MG 2 capsule Orally bid for 90 days Optifoam Gentle Foam Dressings as directed Feb, Ensure - 250 ml Orally tid for 90 days Jan, Folic Acid 1 MG 1 tablet Orally Once a day for 30 day(s) Next Appt Details Provider Name:Judith Berkowitz, 2021-04-01 10: 00:00 AM, [address] [facility] [address], , [place], [address], Provider Name:Marcos Cabezas, 2021-07-14 09:00:00 AM, [address], , [place], [address], Insurance Providers Payer Name Payer Address Payer Phone Insured Name Patient Relati onship to Insured Coverage Start Date Coverage End Date [facility] COMMUNITY PLAN [facility] [address] [facility] [address] LAURY LEDEZMA self
--- OUTSIDE RECORDS SUMMARY | 2021-04-02 14:08 | CCD ---
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 Act dunia confirmed 29945931 Problem PSA elevation R97.2 Active confirmed 683423 005 Problem Neuropathy G62.9 Active confirmed 069976505 Problem Malignant neoplasm of prostate C61 Active confir med 73589473 Problem Cancer related pain G89.3 Active confirmed 908367240 Problem Situational depression F43.21 Active confirmed 85684355 Problem 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 Active confirmed 557904710 Problem Psoriasis L40.9 Active confirmed 0502723 Problem Obstructive uropathy N13.9 Active confirmed 4566457 Problem Major osseous defect, other site M89.78 Active conf irmed 65318142 Problem Essential hypertension I10 Active confirmed 25782507 Problem Hypercalcemia E83.52 Active confirmed 691455 09 Problem Chronic fatigue R53.82 Active confirmed 5270 2003 Problem Carpal tunnel syndrome of right wrist G56.01 Ac tive confirmed 372008819239314 Problem Carpal tunnel syndrome of left wrist G56.02 Act dunia confirmed 716033945780734 Problem 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 Active confirmed 361294879 Problem 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 Active confirmed 343069660 ALLERGIES No Known Allergies ENCOUNTERS from 1960 to 2021-02-23 Encounter Location Date Provider Diagnosis [address] [phone] [place] [address] Jan, Mann Hawkins IMMUNIZATIONS No Information SOCIAL [...] 30 days Active May Have - 14 Syriac straight catheter z85.46 intraurethral 10x/Day for 30 day(s) Apr, Active Tamsulosin HCl 0.4 MG 1 capsule Orally Once a day Active levoFLOXacin 500 MG 1 tablet Orally Once a day for 10 day(s) Active Diclofenac Sodium 3 % 1 application Transdermal Twice a day for 30 day(s) August, Active Folic Acid 1 MG 1 tablet Orally Once a day for 30 day(s) Active May Have - please dispense r [...] Information RESULTS No Results REASON FOR VISIT hospital FU appt MEDICAL (GENERAL) HISTORY Type Description Date Medical [...] 2 capsule Orally bid for 90 days Folic Acid 1 MG 1 tablet Orally Once a day for 30 day(s) Ensure - 250 ml Orally tid for 90 days Jan, Next Appt Details Provider Name:Judith Berkowitz, 2021-04-01 10: 00:00 AM, [address] [facility] [address] , , [place], [address], Insurance Providers Payer Name Payer Address Payer Phone Insured Name Patient Relati onship to Insured Coverage Start Date Coverage End Date [facility] [address] [facility] [address] LAURY LEDEZMA self
--- OUTSIDE RECORDS SUMMARY | 2021-04-02 14:08 | CCD ---
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 Act dunia confirmed 72188943 Problem Situational depression F43.21 Active confirmed 49495100 Problem Neuropathy G62.9 Active confirmed 058300908 Problem Essential hypertension I10 Active confirmed 34047690 Problem 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 Active confirmed 494474959 Problem Psoriasis L40.9 Active confirmed 6017434 Problem 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 Active confirmed 697428089 Problem Chronic fatigue R53.82 Active confirmed 5270 2003 Problem Major osseous defect, other site M89.78 Active conf irmed 56769174 Problem Cancer related pain G89.3 Active confirmed 134075279 Problem Obstructive uropathy N13.9 Active confirmed 3137505 Problem Carpal tunnel syndrome of right wrist G56.01 Ac tive confirmed 746230361964345 Problem Carpal tunnel syndrome of left wrist G56.02 Act dunia confirmed 523018376267184 Problem 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 Active confirmed 231940543 ALLERGIES No Known Allergies ENCOUNTERS from 1960 to 2021-02-15 Encounter Location Date Provider Diagnosis [facility] [address] [facility] [phone] [place] [address] Jan, Mann Hawkins IMMUNIZATIONS No Information SOCIAL [...] 30 days Unknown May Have - 14 Tajik straight catheter z85.46 intraurethral 10x/Day for 30 [...] Information RESULTS No Results RE[facility] Hematuria MEDICAL (GENERAL) HISTORY Type Description Date Medical [...] Notes Treatment Notes Treatm ent Clinical Notes Jan, Other Discussion with patient PLAN OF TREATMENT No Information Insurance Providers Payer Name Payer Address Payer Phone Insured Name Patient Relati onship to Insured Coverage Start Date Coverage End Date [facility] COMMUNITY PLAN [facility] [address] [facility] [phone] LAURY LEDEZMA self
--- OUTSIDE RECORDS SUMMARY | 2021-04-02 14:08 | CCD | Summary of Care ---
Author Author [facility] Organization [facility] Address Unknown Phone Unavailable Care Team Providers Care Glass Bulb Machine Adjuster Name Role Phone Fabian Infante MD PCP Reason for Referral * Diagnostic Radiology ([facility]) - Authorized Diagnoses / Procedures Referred By Contact Referred To Conta ct Specialty Diagnoses Prostate cancer metastatic to bone Procedures IR Nephrostomy Insertion Change Willow Genao SHEET METAL WORKER HELPER [address] [place] [address] Email: [email or web address] Referral ID Status Reason Start Date Expiration Visits Vi sits Date Requested Authorized [id number] Authorized 03/18/2021 1 1 Reason for Visit * Diagnostic Radiology ([facility]) - Authorized Diagnoses / Procedures Referred By Contact Referred To Conta ct Specialty Diagnoses Prostate cancer metastatic to bone Procedures IR Nephrostomy Insertion Change Willow Genao NP [address] [place] [address] Email: [email or web address] Referral ID Status Reason Start Date Expiration Visits Vi sits Date Requested Authorized [id number] Authorized 03/18/2021 1 1 Encounter Details Care Team Description Date Type Department Drew Capps MD [address] [place] [address] [email or web address] Keyshawn Joshua MD [address] [place] [address] [email or web address] Alex Flores MD [address] [place] [address] [email or web address] Prostate cancer metastatic to bone 03/21/2021 Hospital Interventional Radi ology Encounter [address] [place] [address] Allergies No known active allergiesdocumented as of this encounter (statuses as of 03/21/2021) Medications End Date Status Medication Sig Dispensed [...] 3 Tablet (FOLVITE) by mouth 1 daily 03/25/2021 Active oxyCODONE HCl 15 MG Oral Take 1 tablet 180 tablet 0 Tablet by mouth 1 (ROXICODONE)Indications: every 4 Chronic Pain (four) hours as needed for PainCancer related pain, Max Daily Dose: 90 mg Indications: Chronic Pain Active Abiraterone Acetate 500 Take 2 60 tablet 5 MG Oral Tablet (ZYTIGA) tablets by 1 mouth daily 04/14/2021 Active predniSONE 10 MG Oral Take 1 tablet 30 tablet 5 Tablet (DELTASONE) by mouth 1 daily Active Menthol, Topical Apply 0 Analgesic, (BIOFREEZE topically ROLL-ON EX) documented as of this encounter (statuses as of 03/21/2021) Active Problems Problem Noted Date UTI (urinary [...] Added automatically from request for mary bowling [id number] Cervical spondylosis 09/14/2017 Numbness of right hand [...] [facility] Assessment & Plan: Formatting of this note might be differ ent from the original. Pain controlled on actual. Weight gain of concern. Executed HCP form. 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 Comment: Not asked Social Isolation Answer Date Recorded In a typical week, how many times do you talk on More than three times a week 01/11/2021 the phone with family, friends, or neig hbors? How often do you get together with friends or More than th ree times a week 01/11/2021 relatives? How often do you attend adventism or hinduism Never 01/11/2021 services? Do you belong to any clubs or organizations such No 01/11/2021 as adventism groups, unions, fraternal or athletic groups, or [...] AM EDT Date Recorded COVID-19 Exposure Response 03/21/2021 12:28 PM EST In the last month, have you been in contact with No / Unsure someone who was confirmed or suspected to have Coronavirus / COVID-19? documented as of this encounter Last Filed Vital Signs Not on filedocumented in this encounter Plan of Treatment Care Team Description Date Type Specialty Beka Ford MD [facility] [address] [facility] 1[address] [place] [address] [email or web address] 03/29/2021 Office Visit Radiation Oncology Georgi Greene MD [address] [place] [address] [email or web address] 04/06/2021 Office Visit Urology 04/07/2021 Appointment Radiology 04/07/2021 Appointment Radiology 04/07/2021 Appointment Radiology Óscar Peralta MD [address] [place] [address] [email or web address] 04/12/2021 Office Visit Hematology and Onco Mike Gutierrez MD [address] [place] [address] [email or web address] 04/12/2021 APC Surgery 04/18/2021 Clinical Urology Support Date/Time Name Type Priority Associated Diag noses 03/21/2021 4:49 PM EST IR Nephrostomy Insertion Imaging [facility] Prost ate cancer Change metastatic to bone Health Maintenance Due Date Last Done Comments MMR Vaccines (1 of - 1961 Standard series) Varicella Vaccines (1 of 1961 2 - 2-dose childhood series) Pneumococcal Vaccine: 1966 Pediatrics (0 to 5 Years) and At-Risk Patients (6 to 64 Years) (1 of 4 - PCV13) DTaP,Tdap,and Td Vaccines 07/09/1967 (1 - Tdap) COVID-19 Vaccine (1) 1972 HIV Screening 1973 Colon Cancer Screening 10 2010 yrs Zoster Vaccines (1 of 2) 2010 Influenza Vaccine 01/28/2021 Hepatitis C Screening (B. Completed 01/12/202119448744-9226) HIB Vaccines Aged Out No longer eligible [...] Area Manufactur er 04/29/2020 [id number] / / [id number] Port- Power Pac-10fr Dl Lpronew Chest KRAMER S Intro - [id number] MEDICAL Implanted: Qty: 1 on 02/11/2016 by Francoies Olivares MD at [facility]IENT 10/13/2023 [id number] / / [id number] Drn - Resolve - 10 Fr - [id number] Right: Kidney ME RIT Implanted: Qty: 1 on 01/13/2021 by Yohan Negrete DO at [facility] 12/29/2023 [id number] / / [id number] Drn - Resolve 10 Fr Mb W/O Sf Ix - Right: Kidney M ERIT [id number] MEDICAL Implanted: Qty: 1 on 03/21/2021 by Alex Sanchez MD at [facility] documented as of this encounter Procedures Comments Procedure Name Priority Date/Time Associated Diag nosis IR NEPHROSTOMY INSERTION [facility] 03/21/2021 Prost ate cancer CHANGE 4:49 PM EST metastatic to bone Procedure Note - Alex Flores MD / Keyshawn Joshua MD - 03/21/2021 4:49 PM ESTThis note is in progress. F ormatting of this note might be different from the original. PROCEDURE: Nephrostom y Catheter Exchange. HISTORY: 60Year-old male with history of prostate cancer metastases to the bone, here for routine right-side d nephrostom y tube exchange.. TECHNIQUE : Operators: Attending physician: Alex Flores M.D. Fellow: Keyshawn Joshua M.D. Resident: None Procedural Nurse Practition er: None Fluorosco py time 10 minute(s), radiation dose 8.6 mGy. PROCEDURE /FINDINGS: The patient was positioned prone and the right flank as well as the indwelling nephrostom y catheter(s ) was prepped and draped with sterile technique. Irrigation Equipment Installer image demonstrat es right percutaneo us nephrostom y catheter(s ) in place. A small amount of contrast was injected through the tube(s) demonstrat ing patency to the bladder and appropriat e position of tube(s). The right system is nondilated . Sequential ly, the catheter locking loop was released and the existing tube(s) were exchanged for right and Fr nephrostom y catheter(s ) and the locking loop was formed. Contrast injected through the catheter(s ) demonstrat e adequate positionin g with the pigtail loop positioned in the central renal pelvis. The loop is slightly larger than the renal pelvis, however, no mini resolve catheters were in stock and irregular resolve was maintained . The catheter(s ) were secured with dressing. The catheter(s ) was connected to a gravity drainage bag. IMPRESSION : Exchange of indwelling nephrostom y catheter(s ) for new right 10 Fr nephrostom y catheter. Plan: Order 10 Andorran mini resolve catheter for next exchange. Schedule patient for AP 1 for moderate sedation on next exchange. Patient has difficulty lying prone and would like to attempt lateral decubitus positionin g on hallux exchange. POCT ID NOW COVID-19 Routine 03/21/2021 3:31 PM EST documented in this encounter Results * POCT ID NOW COVID-19 (03/21/2021 3:31 PM EST) POCT ID NOW Negative Negative [facility] COVID-19 Comment: Hospital POC Test performed using the Mason ID NOW COVID-19 assay. This test is only for use under the Food and Drug Administration's Emergency Use Authorization. Additional information is available on the following FDA websites for health care providers and patients. https://www.fda.gov/media/7319 23/download https://www.fda.gov/media/3387 24/download First COVID-[address] [facility] Test? Hospital POC Employed in UNKNOWN [facility] POC setting? Symptomatic for UNKNOWN [facility] COVID-19 as Hospital POC defined by CDC? Date of symptom UNKNOWN [facility] onset? Hospital POC (YYYYMMDD) Hospitalized UNKNOWN [facility] for COVID-19? Hospital POC Admitted to ICU UNKNOWN [facility] for COVID-19? Hospital POC Resident in a UNKNOWN [facility] POC (group) care setting? ? UNKNOWN [facility] POC Specimen Swab Performing Organization Address City/State/ZIP Code P ezra Number POINT OF CARE TEST [address] POC [address] [place] [address] documented in this encounter Visit Diagnoses Diagnosis Prostate cancer metastatic to bone documented in this encounter Administered Medications Action Date Dose Rate Site Medication Order MAR Action 03/21/2021 4:35 PM EST 2 mLs lidocaine (PF) (XYLOCAINE) 2 % injection Given Once PRN, Starting on 03/21/21 at 1635 documented in this encounter Active and Recently Administered Medications Times are shown in EST. 03/20/2021 03/21/2021 Medication Order 03/19/2021 1635 (Given - Provider: Brenda Nuno) lidocaine (PF) (XYLOCAINE) 2 % injectio n (COMPLETED) Once PRN, Starting on 03/21/21 at 1635 documented in this encounter Care Teams Start Date End Date Glass Bulb Machine Adjuster Relationship Specialty 11/18/20 Fabian Infante MD PCP - General Family [address] [address] documented as of this encounter
--- OUTSIDE RECORDS SUMMARY | 2021-04-02 14:08 | CCD ---
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 Act dunia confirmed 01001095 Problem PSA elevation R97.2 Active confirmed 684493 005 Problem Neuropathy G62.9 Active confirmed 347028730 Problem Malignant neoplasm of prostate C61 Active confir med 21379880 Problem Cancer related pain G89.3 Active confirmed 154165615 Problem Situational depression F43.21 Active confirmed 96101157 Problem 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 Active confirmed 576778331 Problem Psoriasis L40.9 Active confirmed 4390214 Problem Obstructive uropathy N13.9 Active confirmed 9086076 Problem Major osseous defect, other site M89.78 Active conf irmed 78345863 Problem Essential hypertension I10 Active confirmed 99474099 Problem Hypercalcemia E83.52 Active confirmed 736138 09 Problem Chronic fatigue R53.82 Active confirmed 5270 2003 Problem Carpal tunnel syndrome of right wrist G56.01 Ac tive confirmed 242472682847171 Problem Carpal tunnel syndrome of left wrist G56.02 Act dunia confirmed 161089587367025 Problem 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 Active confirmed 386623360 Problem 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 Active confirmed 945541019 ALLERGIES No Known Allergies ENCOUNTERS from 1960 to 2021-03-18 Encounter Location Date Provider Diagnosis [address] [phone] [place] [address] Feb, Mann Hawkins IMMUNIZATIONS No Information SOCIAL [...] 30 days Active May Have - 14 Hungarian straight catheter z85.46 intraurethral 10x/Day for 30 [...] Information RESULTS No Results REASON FOR VISIT [facility]rjean MEDICAL (GENERAL) HISTORY Type Description Date Medical [...] Name:Judith Berkowitz, 2021-04-01 10: 00:00 AM, [address] [facility], , [place], [address], Provider Name:Marcos Cabezas, 2021-07-14 09:00:00 AM, [address], , [place], [address], Insurance Providers Payer Name Payer Address Payer Phone Insured Name Patient Relati onship to Insured Coverage Start Date Coverage End Date [facility] COMMUNITY PLAN [facility] [address] [facility] [address] LAURY LEDEZMA self
--- OUTSIDE RECORDS SUMMARY | 2021-04-02 14:08 | CCD ---
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 Act dunia confirmed 34521770 Problem PSA elevation R97.2 Active confirmed 168832 005 Problem Neuropathy G62.9 Active confirmed 757743343 Problem Malignant neoplasm of prostate C61 Active confir med 06589851 Problem Cancer related pain G89.3 Active confirmed 459880519 Problem Situational depression F43.21 Active confirmed 65574067 Problem 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 Active confirmed 883719821 Problem Psoriasis L40.9 Active confirmed 5648413 Problem Obstructive uropathy N13.9 Active confirmed 9230953 Problem Major osseous defect, other site M89.78 Active conf irmed 97698058 Problem Essential hypertension I10 Active confirmed 79605525 Problem Hypercalcemia E83.52 Active confirmed 280778 09 Problem Chronic fatigue R53.82 Active confirmed 5270 2003 Problem Carpal tunnel syndrome of right wrist G56.01 Ac tive confirmed 158758555420423 Problem Carpal tunnel syndrome of left wrist G56.02 Act dunia confirmed 278431211098719 Problem 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 Active confirmed 228741494 Problem 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 [address] [facility] [phone] [place] [address] Jan, Judith Berkowitz IMMUNIZATIONS No Information SOCIAL HISTORY Tobacco Use: [...] 30 days Active May Have - 14 [place] straight catheter z85.46 intraurethral 10x/Day for 30 [...] Information RESULTS No Results REASON FOR VISIT [facility] - Dr. Cabezas MEDICAL (GENERAL) HISTORY Type Description Date Medical [...] Name:Judith Berkowitz, 2021-04-01 10: 00:00 AM, [address] [facility], , [place], [address], Insurance Providers Payer Name Payer Address Payer Phone Insured Name Patient Relati onship to Insured Coverage Start Date Coverage End Date [facility] [address] [facility] [id number] LAURY LEDEZMA self
[2021-04-02] MEDS ORDERED: PRED10TA2 PO (14:11)
[2021-04-02] MEDS ORDERED: ABIR500T PO (14:11)
[2021-04-02] MEDS ORDERED: ONDA-83 PO (14:11)
--- OUTSIDE RECORDS SUMMARY | 2021-04-02 14:11 | CCD ---
Author Author [facility] Organization [facility] Address Unknown Phone Unavailable Care Team Providers Care Casino Change Attendant Name Role Phone Alex Flores Unavailable Unavailable Loida ARCHER MD Unavailable Unavailable [...] Unavailable GIANNI, K KAMALA MD Unavailable Unavailable RobertoMarcus MD Unavailable Unavailable RobertoMarcus arriaga MD Unavailable Unavailable RobertoMarcus MD Unavailable Unavailable RobertoMarcus arriaga MD Unavailable Unavailable RobertoMarcus arriaga MD Unavailable Unavailable RobertoMarcus MD Unavailable Unavailable RobertoMarcus MD Unavailable Unavailable RobertoMarcus MD Unavailable Unavailable RobertoMarcus MD Unavailable Unavailable RobertoMarcus MD Unavailable Unavailable RobertoMarcus MD Unavailable Unavailable RobertoMarcus MD Unavailable Unavailable RobertoMarcus MD Unavailable Unavailable RobertoMarcus MD Unavailable Unavailable Roberto E Abram ZAPIEN Unavailable Unavailable RobertoMarcus MD Unavailable Unavailable RobertoMarcus MD Unavailable Unavailable RobertoMarcus MD Unavailable Unavailable RobertoMarcus arriaga MD Unavailable Unavailable RobertoMarcus MD Unavailable Unavailable RobertoMarcus MD Unavailable Unavailable RobertoMarcus MD Unavailable Unavailable Roberto E Abram ZAPIEN Unavailable Unavailable RobertoMarcus MD Unavailable Unavailable Roberto E Abram MD Unavailable Unavailable RobertoMarcus MD Unavailable Unavailable RobertoMarcus MD Unavailable Unavailable RobertoMarcus MD Unavailable Unavailable RobertoMarcus MD Unavailable Unavailable Roberto, Marcus Valverde MD Unavailable Unavailable Roberto, Marcus Valverde MD Unavailable Unavailable Roberto, Marcus Valverde MD Unavailable Unavailable Roberto, Marcus Valverde MD Unavailable Unavailable Roberto, Marcus Valverde MD Unavailable Unavailable Roberto, Marcus Valverde MD Unavailable Unavailable Roberto, Marcus Valverde MD Unavailable Unavailable Roberto, Marcus Valverde MD Unavailable Unavailable Roberto, Marcus Valverde MD Unavailable Unavailable RobertoMarcus MD Unavailable Unavailable Roberto, Marcus Valverde MD Unavailable Unavailable Roberto, Marcus Valverde MD Unavailable Unavailable Roberto, Marcus Valverde MD Unavailable Unavailable Roberto, Marcus Valverde MD Unavailable Unavailable Roberto, Marcus Valverde MD Unavailable Unavailable Roberto, Marcus Valverde MD Unavailable Unavailable Roberto, Marcus Valverde MD Unavailable Unavailable Roberto, Marcus Valverde MD Unavailable Unavailable Roberto, Marcus Valverde MD Unavailable Unavailable RobertoMarcus MD Unavailable Unavailable Roberto, Marcus Valverde MD Unavailable Unavailable RobertoMarcus MD Unavailable Unavailable RobertoMarcus MD Unavailable Unavailable Roberto, Marcus Valverde MD Unavailable Unavailable RobertoMarcus MD Unavailable Unavailable RobertoMarcus MD Unavailable Unavailable RobertoMarcus MD Unavailable Unavailable RobertoMarcus MD Unavailable Unavailable Roberto, Marcus Valverde MD Unavailable Unavailable RobertoMarcus MD Unavailable Unavailable Roberto, Marcus Valverde MD Unavailable Unavailable RobertoMarcus MD Unavailable Unavailable Rice, R Re Unavailable [...] Unavailable Unavailable Rice, R Re Unavailable Unavailable Malena NGUYỄN Unavailable Unavailable RUSTAM CHRISTENSEN MD Unavailable Unavailable RUSTAM CHRISTENSEN MD Unavailable Unavailable RUSTAM CHRISTENSEN MD Unavailable Unavailable RUSTAM CHRISTENSEN MD Unavailable Unavailable RUSTAM CHRISTENSEN MD Unavailable Unavailable RUSTAM CHRISTENSEN MD Unavailable Unavailable RUSTAM CHRISTENSEN MD Unavailable Unavailable RUSTAM CHRISTENSEN MD Unavailable Unavailable RUSTAM CHRISTENSEN MD Unavailable Unavailable [...] Unavailable FABIAN, RUSTAM MD Unavailable Unavailable FABIAN, RUSTMA MD Unavailable Unavailable FABIAN, RUSTAM MD Unavailable [...] Unavailable FABIAN, RUSTAM MD Unavailable Unavailable LEUBNER CHIEF CLINICAL DIETITIAN, BRADLEY CYNTHIA CHIEF CLINICAL DIETITIAN Unavailable [email or web address] LEUBNER CHIEF CLINICAL DIETITIAN, BRADLEY CYNTHIA CHIEF CLINICAL DIETITIAN Unavailable [email or web address] LEUBNER CHIEF CLINICAL DIETITIAN, BRADLEY CYNTHIA CHIEF CLINICAL DIETITIAN Unavailable [email or web address] LEUBNER CHIEF CLINICAL DIETITIAN, BRADLEY MARIE CHIEF CLINICAL DIETITIAN Unavailable [email or web address] LEUBNER CHIEF CLINICAL DIETITIAN, BRADLEY MARIE CHIEF CLINICAL DIETITIAN Unavailable [email or web address] LEUBNER CHIEF CLINICAL DIETITIAN, BRADLEY MARIE CHIEF CLINICAL DIETITIAN Unavailable [email or web address] LEUBNER CHIEF CLINICAL DIETITIAN, BRADLEY MARIE CHIEF CLINICAL DIETITIAN Unavailable [email or web address] LEUBNER CHIEF CLINICAL DIETITIAN, BRADLEY MARIE CHIEF CLINICAL DIETITIAN Unavailable [email or web address] LEUBNER CHIEF CLINICAL DIETITIAN, BRADLEY MARIE CHIEF CLINICAL DIETITIAN Unavailable [email or web address] LEUBNER CHIEF CLINICAL DIETITIAN, BRADLEY MARIE CHIEF CLINICAL DIETITIAN Unavailable [email or web address] LEUBNER CHIEF CLINICAL DIETITIAN, BRADLEY MARIE CHIEF CLINICAL DIETITIAN Unavailable [email or web address] LEUBNER CHIEF CLINICAL DIETITIAN, BRADLEY MARIE CHIEF CLINICAL DIETITIAN Unavailable [email or web address] LEUBNER CHIEF CLINICAL DIETITIAN, BRADLEY MARIE CHIEF CLINICAL DIETITIAN Unavailable [email or web address] LEUBNER CHIEF CLINICAL DIETITIAN, BRADLEY MARIE CHIEF CLINICAL DIETITIAN Unavailable [email or web address] LEUBNER CHIEF CLINICAL DIETITIAN, BRADLEY MARIE CHIEF CLINICAL DIETITIAN Unavailable [email or web address] LEUBNER CHIEF CLINICAL DIETITIAN, BRADLEY MARIE CHIEF CLINICAL DIETITIAN Unavailable [email or web address] LEUBNER CHIEF CLINICAL DIETITIAN, BRADLEY MARIE CHIEF CLINICAL DIETITIAN Unavailable [email or web address] LEUBNER CHIEF CLINICAL DIETITIAN, BRADLEY MARIE CHIEF CLINICAL DIETITIAN Unavailable [email or web address] LEUBNER CHIEF CLINICAL DIETITIAN, BRADLEY MARIE CHIEF CLINICAL DIETITIAN Unavailable [email or web address] LEUBNER CHIEF CLINICAL DIETITIAN, BRADLEY MARIE CHIEF CLINICAL DIETITIAN Unavailable [email or web address] LEUBNER CHIEF CLINICAL DIETITIAN, BRADLEY MARIE CHIEF CLINICAL DIETITIAN Unavailable [email or web address] LEUBNER CHIEF CLINICAL DIETITIAN, BRADLEY SWEENEYNA CHIEF CLINICAL DIETITIAN Unavailable [email or web address] LEUBNER CHIEF CLINICAL DIETITIAN, BRADLEY MARIE CHIEF CLINICAL DIETITIAN Unavailable [email or web address] Malena Torres Unavailable Unavailable PoMalena miguel Unavailable Unavailable PoMalena miguel Unavailable Unavailable PoMalena miguel Unavailable Unavailable PoMalena miguel Unavailable Unavailable PoMalena miguel Unavailable Unavailable PoiesMalena kim Unavailable Unavailable PoiesMalena kim Unavailable Unavailable PoiesMalena kim Unavailable Unavailable Poiesz, J Vin Unavailable Unavailable [...] Unavailable Unavailable Poiesz, J Vin Unavailable Unavailable Ace BOOKER Unavailable Unavailable Rosa Elena Infante MD Unavailable Unavailable Rosa Elena Infante MD Unavailable Unavailable Rosa Elena Infante MD Unavailable Unavailable Rosa Elena Infante MD Unavailable Unavailable Rosa Elena Infante MD Unavailable Unavailable Rosa Elena Infante MD Unavailable Unavailable Rosa Elena Infante MD Unavailable Unavailable Rosa Elena Infante MD Unavailable Unavailable Roas Elena Infante MD Unavailable Unavailable Rosa Elena [...] Unavailable Rosa Elena Infante MD Unavailable Unavailable Roas Elena Infante MD Unavailable Unavailable Rosa Elena [...] Elena Infante MD Unavailable Unavailable Rosa Elena Infanet MD Unavailable Unavailable Rosa Elena Infante MD [...] Unavailable Rosa Elena Infante MD Unavailable Unavailable Hillary PADRON MD Unavailable Unavailable Hillary PADRON MD Unavailable Unavailable Hillary PADRON MD Unavailable Unavailable Hillary PADRON MD Unavailable Unavailable Hillary PADRON MD Unavailable Unavailable Hillary PADRON MD Unavailable Unavailable Hillary PADRON MD Unavailable Unavailable Hillary PADRON MD Unavailable Unavailable Hillary PADRON MD Unavailable Unavailable NEREIDA, Hillary WRIGHT MD Unavailable Unavailable NEREIDA, Hillary WRIGHT MD Unavailable Unavailable NEREIDA, Hillary WRIGHT MD Unavailable Unavailable NEREIDA, Hillary WRIGHT MD Unavailable Unavailable Hillary PADRON MD Unavailable Unavailable Hillary PADRON MD Unavailable Unavailable Hillary PADRON MD Unavailable Unavailable Hillary PADRON MD Unavailable Unavailable Hillary PADRON MD Unavailable Unavailable Hilalry PADRON MD Unavailable Unavailable NEREIDA, A KYLE [...] A KYLE MD Unavailable Unavailable NEREIDA, A YKLE MD Unavailable Unavailable Malena Nguyễn Unavailable Malena Nguyễn Unavailable Malena Nguyễn Unavailable LEONIDAS LOMAS Unavailable Unavailable Brenda Greene MD Unavailable Unavailable [...] Unavailable Unavailable Brenda Greene MD Unavailable Unavailable Denise BEYER MD Unavailable Unavailable Denise BEYER MD Unavailable Unavailable Denise BEYER MD Unavailable Unavailable Denise BEYER MD Unavailable Unavailable Denise BEYER MD Unavailable Unavailable Denise BEYER MD Unavailable Unavailable Denise BEYER MD Unavailable Unavailable Denise BEYER MD Unavailable Unavailable Denise BEYER MD Unavailable Unavailable Denise BEYER MD Unavailable Unavailable Denise BEYER MD Unavailable Unavailable Denise BEYER MD Unavailable Unavailable Denise BEYER MD Unavailable Unavailable Denise BEYER MD Unavailable Unavailable PASNICIUC, V SILVIU MD Unavailable Unavailable PASNICIUC, V SILVIU MD Unavailable Unavailable PASNICIUC, V SILVIU MD Unavailable Unavailable PASNICIUC, V SILVIU MD Unavailable Unavailable Sondra, Debbi MD Unavailable Unavailable Sondra, Debbi MD Unavailable Unavailable Sondra, Debbi MD Unavailable Unavailable Sondra, Debbi MD Unavailable Unavailable Sondra, Debbi MD Unavailable Unavailable Sondra, Debbi MD Unavailable Unavailable Sondra, Debbi MD Unavailable Unavailable Sondra, Debbi MD Unavailable Unavailable Sondra, Debbi MD Unavailable Unavailable Sondra, Debbi MD Unavailable Unavailable Re-disclosure Warning The records [...] is protected by Article 27-F of the [facility] Public Health law. If you continue you may have access to information: Regarding HIV / AIDS; Provided by facilities licensed or operated by the [facility] Office of Mental Health; or Provided by the [facility] Office for People With Developmental Disabilities. If such information is present, then the following [facility] mandated warning applies: This information has [...] law may result in a fine or senior living sentence or both. A general authorization for the release of medical or other information is NOT sufficient authorization for further disc losure. Allergies and Adverse Reactions Type Description Substance Reaction Status Data Source(s ) No Known Allergies NO KNOWN MEDICATION ALLERGIES NO KNOWN MEDICA TION ALLERGIES NDOC ([facility]) Family History Family Member Name Family Member Gender Family Member Status Date o f Status Description Data Source(s) Unknown Unknown Problem MEDENT ([facility], ) Unknown Female Problem MEDENT ([facility]) Encounters Encounter Providers Location Date Indications Data Source(s ) Outpatient 04/18/2021 12:00:00 AM [facility] Outpatient Attender: KYLE PADRON MD 04/12/2021 12:00:00 AM [facility] Outpatient Attender: KYLE PADRON MD 04/12/2021 12:00:00 AM [facility] Outpatient Attender: GLORIA BEYER MD 04/12/2021 12:00: 00 AM [facility] Outpatient Attender: RUSTAM CHRISTENSEN MD 04/12/2021 12:00:00 A [facility] Outpatient Referrer: RUSTAM CHRISTENSEN MD 04/07/2021 12:00:00 A [facility] Outpatient Referrer: RUSTAM CHRISTENSEN MD 04/07/2021 12:00:00 A [facility] Outpatient Referrer: RUSTAM CHRISTENSEN MD 04/07/2021 12:00:00 A [facility] Outpatient Attender: Georgi Greene MDReferrer: Fabian Infante MD 04/06/2021 12:00:00 AM [facility] Outpatient Attender: Georgi Greene MD 03/30/2021 12:00:00 A [facility] Outpatient Attender: KYLE PADRON MDReferrer: Georgi hernandez MD [id number] 03/29/2021 12:00:00 AM EST - 03/29/2021 03:33:04 PM EST follow up [facility] follow up Outpatient Attender: Rafa Oliva er: RAFA Smithitter: Alexomar Pooleferrer: Alex Flores 03/21/2021 12:00:00 AM EST - 03/21/2021 12:00:00 AM EST Malignant neoplasm of prostate [facility] Malignant neoplasm of prostate Patient discharged. Outpatient Attender: LEONIDAS LOMAS 03/21/2021 12:00:00 AM EST - 03/21/2021 12:55:33 PM EST Retention of urine, unspecified [facility] Retention of urine, unspecified Outpatient 03/18/2021 12:00:00 AM [facility] [place] [address] [address] 03/17/2021 12:00:00 AM EST eCW1 ([facility]) Outpatient Attender: RUSTAM CHRISTENSEN MD 2020 12:00:00 AM [facility] - 03/15/2021 02:24:59 PM [facility] Outpatient Attender: GLORIA BEYER MD [id number] 12:00:00 AM [facility] - 03/15/20[facility]: RUSTAM CHRISTENSEN MD 03/15/2021 12:00:00 A M [facility] [place] [address] [address] 03/11/2021 12:00:00 AM EST eCW1 ([facility]) [place] [address] [address] 03/02/2021 12:00:00 AM EDT eCW1 ([facility]) Outpatient Attender: RUSTAM CHRISTENSEN MD 03/01/2021 12:0 0:00 AM EDT Malignant neoplasm of prostate [facility] Malignant neoplasm of prostate Outpatient Attender: KYLE PADRON MD 03/01/2021 12:00:00 AM [facility] Outpatient Attender: GLORIA BEYER MD 03/01/2021 12:00: 00 AM [facility] [place] [address] [address] 02/28/2021 12:00:00 AM EDT eCW1 ([facility]) [place] [address] [address] 02/22/2021 12:00:00 AM EDT eCW1 ([facility]) O Attender: Abram Mejia MD 02/20/2021 12:00:00 AM EDT NDOC ([facility]) Patient admitted. [place] [address] [address] 02/18/2021 12:00:00 AM EDT [facility]CW1 [facility] Outpatient Attender: KYLE PADRON MD [id number] 02/16/2021 11 :26:47 AM EDT [facility] Outpatient Attender: KYLE PADRON MDReferrer: Fabian Valladares dd, MD 02/15/2021 12:00:00 AM EDT follow up [facility] follow up [place] [address] [address] 02/14/2021 12:00:00 AM EDT eCW1 ([facility]) Outpatient Attender: GLORIA BEYER MD [id number] 12:00:00 AM T [facility] [place] [address] [address] 02/08/2021 12:00:00 AM EDT [facility]CW1 ([facility]) [place] [address] [facility] [place] [address] 02/03/2021 12:00:00 AM EDT eCW1 ([facility]) [place] [address] [address] 02/02/2021 12:00:00 AM EDT eCW1 ([facility]) Outpatient Attender: RUSTAM CHRISTENSEN MD [id number] 2020 12:00:00 AM EDT - 02/01/2021 04:35:04 PM EDT Malignant neoplasm of prostate [facility] Malignant neoplasm of prostate [place] [address] [address] 01/27/2021 12:00:00 AM EDT eCW1 ([facility]) [place] [address] [address] 01/26/2021 12:00:00 AM EDT eCW1 ([facility]) Outpatient Attender: KYLE PADRON MD 01/26/2021 12:00:00 AM [facility] Outpatient Attender: KYLE PADRON MD 01/25/2021 12:00:00 AM [facility] Outpatient 01/25/2021 12:00:00 AM [facility] Outpatient Attender: KYLE PADRON MD 01/25/2021 12:00:00 AM [facility] Outpatient 01/25/2021 12:00:00 AM [facility] Unknown [address] [address] 01/20/2021 12:00:00 AM EDT [facility] ([facility]) Outpatient 01/20/2021 12:00:00 AM [facility] Outpatient Attender: KYLE PADRON MD 01/20/2021 12:00:00 AM [facility] Outpatient 01/19/2021 12:00:00 AM [facility] Outpatient Attender: Re McleanReferrer: Georgi Cuba [id number] 01/18/2021 12:00:00 AM EDT - 01/18/2021 04:02:51 PM EDT on [facility] on treat Outpatient 01/18/2021 12:00:00 AM [facility] Outpatient Attender: Re Mclean 01/18/2021 12:00:00 AM [facility] Outpatient Attender: RUSTAM CHRISTENSEN MD 01/18/2021 12:00:00 A M [facility] Inpatient Attender: Debbi Amaro MDReferrer: Debbi Amaro MD 01/13/2021 12:00:00 AM [facility] Inpatient Attender: Debbi Gutiérrez itter: Debbi Amaro MDReferrer: Debbi Amaro MD 01/12/2021 08:12:[address] [facility] Outpatient Attender: KYLE PADRON MD [id number] 12/29 12:00:00 AM EDT - 01/12/2021 02:53:08 PM [facility] Inpatient Attender: Vin Rico nder: Debbi Gutiérrezitter: Vin TorresReferrer: Debbi Amaro MD [id number]-[id number] 01/11/2021 12:00:00 AM EDT - 01/17/2021 06:39:00 PM EDT [facility] Patient discharged. Outpatient Attender: RUSTAM KEATINGeferrer: CYNTHIA ORTIZ NP [id number] 01/11/2021 12:00:00 AM EDT - 01/11/2021 02:44:31 PM [facility] Outpatient 01/11/2021 12:00:00 AM [facility] Outpatient Attender: KYLE PADRON MD 01/11/2021 12:00:00 AM [facility] Outpatient 01/11/2021 12:00:00 AM [facility] Outpatient Attender: KYLE PADRON MD 01/11/2021 12:00:00 AM [facility] Outpatient Attender: KYLE PADRON MDReferrer: Georgi hernandez MD 12/31/2020 12:00:00 AM [facility] Outpatient Attender: KYLE KEATINGeferrer: Georgi hernandez MD [id number] 12/28/2020 12:00:00 AM EDT - 12/28/2020 04:41:31 PM [facility] Unknown [address] [address] 12/23/2020 12:00:00 AM EDT [facility] ([facility]) Outpatient Attender: Georgi Sibley: Fabian Infante MD [id number] 12/22/2020 12:00:00 AM EDT - 12/22/2020 12:18:33 PM [facility] Outpatient 12/21/2020 12:00:00 AM [facility] Outpatient Attender: CHAYITO BOOKER 12/20/2020 12:00:00 AM [facility] Outpatient Referrer: CYNTHIA ORTIZ NP 12/14/2020 12: 17:10 PM EDT Lower abdominal pain, unspecified [facility] Lower abdominal pain, unspecified Outpatient Attender: CYNTHIA ORTIZ NP [id number] 12/14 12:00:00 AM EDT - 12/14/2020 03:59:07 PM [facility] Outpatient Attender: CYNTHIA ORTIZ NP 12/14/2020 12:00:00 AM [facility] Outpatient Attender: Georgi Stapleserrer: Fabian Infante MD [id number] 12/01/2020 12:00:00 AM EDT - 12/01/2020 03:42:02 PM [facility] Outpatient Attender: GLORIA BEYER MD [id number] 12:00:00 AM [facility] Outpatient Attender: RUSTAM CHRISTENSEN MD [id number] 2020 12:00:00 AM EDT - 11/23/2020 03:46:02 PM [facility] Outpatient Referrer: RUSTAM CHRISTENSEN MD 11/22/2020 12:0 0:00 AM EDT Malignant neoplasm of prostate [facility] Malignant neoplasm of prostate Outpatient Attender: RUSTAM CHRISTENSEN MD 11/19/2020 12:00:00 A M [facility] [place] [address] [address] 11/18/2020 12:00:00 AM EDT eCW1 ([facility]) [place] [address] [address] 11/17/2020 12:00:00 AM EDT eCW1 ([facility]) Outpatient Attender: RUSTAM CHRISTENSEN MD A-ONCCACTR 2020 12:00:00 AM EDT - 11/16/2020 04:31:42 PM [facility] Outpatient Referrer: RUSTAM CHRISTENSEN MD 11/16/2020 12:0 0:00 AM EDT Malignant neoplasm of prostate [facility] Malignant neoplasm of prostate Outpatient Attender: RUSTAM CHRISTENSEN MD 11/16/2020 12:00:00 A M [facility] Outpatient Referrer: RUSTAM CHRISTENSEN MD 11/16/2020 12:00:00 A M [facility] Outpatient Attender: GLORIA BEYER MD 11/16/2020 12:00: 00 AM [facility] Outpatient Referrer: RUSTAM CHRISTENSEN MD 11/15/2020 12:00:00 A M [facility] Unknown [address] [place] [address] 11/10/2020 12:00:00 AM EDT eCW1 ([facility]) [place] [address] [address] 11/08/2020 12:00:00 AM EDT [facility] [place] [address] [address] 11/05/2020 12:00:00 AM EDT eCW1 ([facility] Outpatient Attender: KAMALA ARCHER MD 11/03/2020 12:00:00 AM [facility] Outpatient [address] [address] 10/20/2020 12:00:00 AM EDT eCW1 ([facility] [place] [address] [place] [address] 10/20/2020 12:00:00 AM EDT eCW1 ([facility] Outpatient Attender: RUSTAM CHRISTENSEN MD [id number] 2020 12:00:00 AM EDT - 10/19/2020 03:28:21 PM [facility] [place] [address] [place] [address] 10/19/2020 12:00:00 AM EDT eCW1 ([facility] [place] [address] [place] [address] 10/19/2020 12:00:00 AM EDT eCW1 ([facility] [place] [address] [place] [address] 10/11/2020 12:00:00 AM EDT eCW1 ([facility]) Outpatient Referrer: CYNTHIA ORTIZ NP 10/05 12:00:00 AM EDT - 10/05/2020 11:59:00 PM [facility] Outpatient Referrer: CYNTHIA ORTIZ NP 10/05/2020 12: 00:00 AM EDT Malignant neoplasm of prostate [facility] Malignant neoplasm of prostate Outpatient Referrer: CYNTHIA ORTIZ NP 09/16/2020 12:00:00 AM [facility] Outpatient Referrer: CYNTHIA ORTIZ NP 09/16/2020 12:00:00 AM [facility] Outpatient Referrer: CYNTHIA ORTIZ NP 09/02/2020 12:00:00 AM [facility] Outpatient Referrer: CYNTHIA ORTIZ NP 09/02/2020 12:00:00 AM [facility] [place] [address] [place] [address] 08/24/2020 12:00:00 AM EDT eCW1 ([facility]) Outpatient Attender: RUSTAM ChicasA-ONCCACTR 2020 12:00:00 AM EDT - 08/20/2020 12:16:21 PM EDT Malignant neoplasm of prostate [facility] Malignant neoplasm of prostate Outpatient Attender: GLORIA ChicasA-MLTCACTR 12:00:00 AM EDT - 08/17/2020 02:04:10 PM EDT Encounter for palliative care [facility] Encounter for palliative care [place] [address] [address] 08/13/2020 12:00:00 AM EDT eCW1 ([facility]) Outpatient Referrer: CYNTHIA ORTIZ NP 08/10/2020 12:00:00 AM [facility] Outpatient Referrer: CYNTHIA ORTIZ NP 08/10/2020 12:00:00 AM [facility] Outpatient Referrer: CYNTHIA ORTIZ NP 08/06/2020 12:00:00 AM [facility] Outpatient Referrer: CYNTHIA ORTIZ NP 08/06/2020 12:00:00 AM [facility] Outpatient [address] [place] [address] 07/19/2020 12:00:00 AM EDT eCW1 ([facility]) [place] [address] [place] [address] 07/02/2020 12:00:00 AM EST eCW1 ([facility]) Outpatient Attender: GLORIA ChicasA-MLTCACTR 12:00:00 AM EST - 06/02/2020 08:23:27 AM EST Encounter for palliative care [facility] Encounter for palliative care Outpatient Attender: GLORIA BEYER MD 06/01/2020 12:00: 00 AM [facility] Outpatient Attender: GLORIA BEYER MD 05/26/2020 12:00: 00 AM [facility] Outpatient Attender: RUSTAM CHRISTENSEN MD [id number] 2020 12:00:00 AM EST - 05/21/2020 11:28:05 AM EST Malignant neoplasm of prostate [facility] Malignant neoplasm of prostate Outpatient Attender: RUSTAM CHRISTENSEN MD 05/21/2020 12:00:00 A M [facility] [place] [address] [place] [address] 05/18/2020 12:00:00 AM EST eCW1 ([facility]) Unknown [address] [facility] [address] 05/06/2020 12:00:00 AM EST eCW1 ([facility]) Unknown [address] [facility] [address] [address] 04/26/2020 12:00:00 AM EST eCW1 ([facility]) Unknown [address] [facility] [place] [address] 04/15/2020 12:00:00 AM EST eCW1 ([facility]) Unknown [address] [facility] [address] [place] [address] 04/09/2020 12:00:00 AM EST eCW1 ([facility]) Unknown [address] [facility] [address] [place] [address] 03/24/2020 12:00:00 AM EST eCW1 ([facility]) Unknown [address] [facility] [address] 03/10/2020 12:00:00 AM EST eCW1 ([facility]) Unknown [address] [facility] [place] [address] 03/09/2020 12:00:00 AM EST eCW1 ([facility]) Outpatient [address] [facility] [place] [address] 03/08/2020 12:00:00 AM EST eCW1 ([facility]) Outpatient Attender: GLORIA BEYER MD [id number] 12:00:00 AM EDT - 02/25/2020 03:17:34 PM EDT Malignant neoplasm of prostate [facility] Malignant neoplasm of prostate Outpatient Attender: CYNTHIA ORTIZ NP [id number] 02/18 12:00:00 AM EDT - 02/19/2020 03:53:47 PM EDT Malignant neoplasm of prostate [facility] Malignant neoplasm of prostate Unknown [address] [facility] [place] [address] 02/11/2020 12:00:00 AM EDT eCW1 ([facility]) Outpatient Attender: CYNTHIA ORTIZ NPAttender: RUSTAM CHRISTENSEN MD 02/06/2020 12:00:00 AM [facility] Outpatient Attender: GLORIA BEYER MD 02/04/2020 12:00: 00 AM [facility] Medications Medication Brand Name Start Date Product Form Dose Route Admi nistrative Instructions Pharmacy Instructions Status Indications Reaction Description Data Source(s) 15 mg 03/23/2021 12:00:00 AM EST tablet 180 TAKE ONE TABLET BY MOUTH EVERY 4 HOURS NEEDED PAIN MAXIMUM DAILY DOSE = 6 TABLETS TAKE ONE TABLET BY MOUTH EVERY 4 HOURS NEEDED PAIN MAXIMUM DAILY DOSE = 6 TABLETS SOLD: 03/23/2021 [facility] lidocaine (PF) (XYLOCAINE) 2 % injection [id number] 03/21/2021 04:35: 41 PM EST completed Once PRN, Starting on Sun03/21/21 at 1635 [facility] Medication administered onsite Prednisone 10 MG Oral Tablet predniSONE 10 MG Oral Tab let (DELTASONE) predniSONE 10 MG Oral Tablet (DELTASONE) 03/15/2021 12:00:00 AM EST 10 mg Ora l active Take 1 tablet by mouth daily [facility] Abiraterone Acetate 500 MG Oral Tablet (ZYTIGA) [id number] 03/15/2021 12:00:00 AM EST 1000 mg Oral active Take 2 tablets b y mouth daily [facility] Optifoam Gentle Foam Dressings UNK 03/02/2021 12:00:00 AM EDT active Optifoam Gentle Foam Dressings eCW1 ([facility]) Optifoam Gentle Foam Dressings UNK 03/02/2021 12:00:00 AM EDT active eCW1 ([facility]) Optifoam Gentle Foam Dressings UNK 03/02/2021 12:00:00 AM EDT active Optifoam Gentle Foam Dressings eCW1 ([facility]) Optifoam Gentle Foam Dressings UNK 03/02/2021 12:00:00 AM EDT active Optifoam Gentle Foam Dressings eCW1 ([facility]) 15 mg 02/23/2021 12:00:00 AM EDT tablet 180 TAKE ONE TABLET BY MOUTH EVERY 4 HOURS NEEDED FOR PAIN , MAXIMUM DAILY DOSE = 6 TABLETS TAKE ONE TABLET BY MOUTH EVERY 4 HOURS NEEDED FOR PAIN , MAXIMUM DAILY DOSE = 6 TABLETS SOLD: 02/23/2021 [facility] Oxycodone Hydrochloride 15 MG Oral Table t oxyCODONE HCl 15 MG Oral Tablet (ROXICODONE) oxyCODONE HCl 15 MG Oral Tablet (ROXICODONE) 12:00:00 AM EDT 15 mg Oral active Chronic Pain Peter e 1 tablet by mouth every 4 (four) hours as needed for PainCancer related pain, Max Daily Dose: 90 mg Indications: Chronic Pain [facility] Chronic Pain Ensure - Ensure - 02/22/2021 12:00:00 AM EDT 250.0 {ml} active Ensure - eCW1 ([facility]) 325 mg (65 mg iron) 02/22/2021 12:00:00 AM EDT tablet 15 TAKE ONE TABLET BY MOUTH EVERY OTHER DAY TAKE ONE TABLET BY MOUTH EVERY OTHER DAY SOLD: 02/23/2021 [facility] Ensure - Ensure - 02/22/2021 12:00:00 AM EDT 250.0 {ml} active eCW1 ([facility]) 1 mg 02/22/2021 12:00:00 AM EDT tablet 30 TAKE ONE TABLET BY MOUTH EVERY DAY TAKE ONE TABLET BY MOUTH EVERY DAY SOLD: 02/23/2021 [facility] Ensure - Ensure - 02/22/2021 12:00:00 AM EDT 250.0 {ml} active Ensure - eCW1 ([facility]) Ensure - Ensure - 02/22/2021 12:00:00 AM EDT 250.0 {ml} active Ensure - eCW1 ([facility]) Ensure - Ensure - 02/22/2021 12:00:00 AM EDT 250.0 {ml} active Ensure - eCW1 ([facility]) 300 mg 02/22/2021 12:00:00 AM EDT capsule 360 TAKE TWO CAPSULES BY MOUTH TWICE A DAY TAKE TWO CAPSULES BY MOUTH TWICE A DAY SOLD: 02/23/2021 [facility] Ensure - Ensure - 02/22/2021 12:00:00 AM EDT 250.0 {ml} active Ensure - eCW1 ([facility]) 500 mg 02/18/2021 12:00:00 AM EDT tablet 7 TAKE ONE TABLET BY MOUTH EVERY DAY TAKE ONE TABLET BY MOUTH EVERY DAY SOLD: 02/18/2021 [facility] 17 gram/dose 02/06/2021 12:00:00 AM EDT powder [...] active Take 1 tablet by mouth daily [facility] 324 mg (38 mg iron) 01/18/2021 12:00:00 AM EDT tablet 15 TAKE ONE TABLET BY MOUTH EVERY OTHER DAY TAKE ONE TABLET BY MOUTH EVERY OTHER DAY SOLD: 01/18/2021 [facility] magnesium sulfate in dextrose 5 % infusion (premix) 1 g 0409 -[id number] 01/17/2021 06:00:00 AM EDT 1 g Intravenous completed 1 g, Intravenous, Administer over 60 Minutes, Once, On Sun01/17/21 at 0600, For 1 dose [facility] Medication administered onsite salmon calcitonin 200 UNT/ML Injectable Solution Calcitonin ([place]) 200 UNIT/ML Injection Solution (MIACALCIN) Calcitonin ([place]) 200 UNIT/ML Injectio n Solution (MIACALCIN) 01/17/2021 12:00:00 AM EDT 200 U Subcutaneous aborted Inject 1 mL into the skin daily for 7 days [facility] salmon calcitonin 200 UNT/ML Injectable Solution Calcitonin ([place]) 200 UNIT/ML Injection Solution (MIACALCIN) Calcitonin ([place]) 200 UNIT/ML Injectio n Solution (MIACALCIN) 01/17/2021 12:00:00 AM EDT 200 U Subcutaneous aborted Inject 1 mL into the skin daily for 7 days [facility] salmon calcitonin 200 UNT/ACTUAT Nasal S pray Calcitonin ([place]) 200 UNIT/ACT Nasal Solution (MIACALCIN) Calcitonin ([place]) 200 UNIT/ACT Nasal S olution (MIACALCIN) 01/17/2021 12:00:00 AM EDT 1 {spray} Nasal abo rted 1 spray by Nasal route daily for 7 days [facility] salmon calcitonin 200 UNT/ACTUAT Nasal S pray Calcitonin ([place]) 200 UNIT/ACT Nasal Solution (MIACALCIN) Calcitonin ([place]) 200 UNIT/ACT Nasal S olution (MIACALCIN) 01/17/2021 12:00:00 AM EDT 1 {spray} Nasal act dunia 1 spray by Nasal route daily for 7 days [facility] ferrous gluconate 324 MG Oral Tablet Leobardo martin Gluconate 324 (38 Fe) MG Oral Tablet (FERGON) Ferrous Gluconate 324 (38 Fe) MG Oral Tablet (FERGON) 01/17/2021 12:00:00 AM EDT 324 mg Oral active Take 1 tablet by mouth every other day [facility] Oxycodone Hydrochloride 15 MG Oral Table t oxyCODONE (ROXICODONE) immediate release tablet 15 mg oxyCODONE (ROXICODONE) immediate release tablet 15 mg 01/16/2021 07:57:10 AM EDT 15 mg Oral active Chron ic Pain 15 mg, Oral, Every 4 hours PRN, Moderate Pain (Pain Scale Score 4-6), Starting on 01/16/21 at 0757, For 43 hours [facility] Chronic Pain Medication administered onsite NaCl infusion 0.9 % [id number] 01/16/2021 07:30:00 AM EDT Intravenous completed at 150 mL/hr, Intrav enous, Continuous, Starting on 01/16/21 at 0730, For 24 hours [facility] Medication administered onsite salmon calcitonin 200 UNT/ML Injectable Solution calcitonin (MIACALCIN) injection 200 Units calcitonin (MIACALCIN) injection 200 Units 01/15/2021 04:30:00 PM EDT 200 U Subcutaneous completed 200 Units, Subcutaneous, Once, On 01/15/21 at 1630, For 1 dose [facility] Medication administered onsite potassium chloride (K-DUR) dissolvable tablet 40 mEq 03062-6 99-01 01/15/2021 09:00:00 AM EDT 40 meq Oral completed 40 mEq, Oral, 2 Times Daily, First dose (after last reorder) on 01/15/21 at 0900, For 3 doses
May be dissolved in water for patients with a G-Tube or unable to swallow. If concern for clogging G-Tube, may contact Pharmacy to switch formulation to a powder packet.
[facility] Medication administered onsite 50 ML Magnesium Sulfate 40 MG/ML Injecti on magnesium sulfate infusion 2 g/50 mL (premix) magnesium sulfate infusion 2 g/50 mL (premix) 01/16/20 07:30:00 AM EDT 2 g Intravenous completed 2 g, Intravenous, Administer over 60 Minutes, Once, On Sun01/15/21 at 0730, For 1 dose [facility] Medication administered onsite chlorhexidine gluconate 1.2 MG/ML Mouthw jacqueline chlorhexidine (PERIDEX) 0.12 % solution 15 mL chlorhexidine (PERIDEX) 0.12 % solution 15 mL 01/15/20 09:00:00 PM EDT 15 mL Mouth/Throat active 15 mL, Mouth/Throat, 2 Times Daily, First dose on Sun01/14/21 at 2100, For 30 days
Do not swallow.
[facility] Medication administered onsite Baclofen 10 MG Oral Tablet baclofen (LIORESAL) tablet 10 mg baclofen (LIORESAL) tablet 10 mg 01/14/2021 05:00:00 PM EDT 10 mg Oral activ e 10 mg, Oral, Three Times Daily Standard, First dose on Sun01/14/21 at 1700, For 30 days [facility] Medication administered onsite salmon calcitonin 200 UNT/ML Injectable Solution calcitonin (MIACALCIN) injection 200 Units calcitonin (MIACALCIN) injection 200 Units 01/14/2021 04:30:00 PM EDT 200 U Subcutaneous completed 200 Units, Subcutaneous, Once, On Sun01/14/21 at 1630, For 1 dose [facility] Medication administered onsite Oxycodone Hydrochloride 15 MG Oral Table t oxyCODONE (ROXICODONE) immediate release tablet 15 mg oxyCODONE (ROXICODONE) immediate release tablet 15 mg 01/14/2021 11:43:06 AM EDT 15 mg Oral active Chron ic Pain 15 mg, Oral, Every 4 hours PRN, Moderate Pain (Pain Scale Score 4-6), Starting on Sun01/14/21 at 1143, For 43 hours [facility] Chronic Pain Medication administered onsite Aspirin 81 MG Chewable Tablet aspirin chewable tablet 81 mg aspirin chewable tablet 81 mg 01/14/2021 09:00:00 AM EDT 81 mg Oral activ e 81 mg, Oral, Daily Standard, First dose (after last reorder) on Sun01/14/21 at 0900, For 30 doses [facility] Medication administered onsite potassium chloride (K-DUR) dissolvable tablet 40 mEq 23548-6 99-01 01/14/2021 07:30:00 AM EDT 40 meq Oral completed 40 mEq, Oral, Once, On Sun01/14/21 at 0730, For 1 dose
May be dissolved in water for patients with a G- Tube or unable to swallow. If concern for clogging G-Tube, may contact Pharmacy to switch formulation to a powder packet.
[facility] Medication administered onsite NaCl infusion 0.9 % [id number] 01/14/2021 07:30:00 AM EDT Intravenous aborted at 150 mL/hr, Intrav enous, Continuous, Starting on Sun01/14/21 at 0730, For 48 hours [facility] Medication administered onsite alteplase (CATHFLO) injection 2 mg [id number] 01/14/2021 12:00:00 AM EDT 2 mg Intracatheter completed 2 mg, Intra catheter, Once, On Sun01/14/21 at 0000, For 1 dose
To be instilled by PICC team or IR nurse only for at least 30 minutes
[facility] Medication administered onsite potassium phosphate infusion 6 mmol/100 mL (premix) 01/13/2021 02:15:00 PM EDT 6 mmol Intravenous completed 6 mmol, Intravenous, at 25 mL/hr, Once, On Neha 01/13/21 at 1415, For 1 dose
Slower infusion rates (e.g. over 4 hours) are recommended in patients with renal impairment and/or less severe hypophosphatemia. Product contains 8.8 mEq of potassium.
[facility] Medication administered onsite 50 ML Magnesium Sulfate 40 MG/ML Injecti on magnesium sulfate infusion 2 g/50 mL (premix) magnesium sulfate infusion 2 g/50 mL (premix) 01/14/20 02:15:00 PM EDT 2 g Intravenous completed 2 g, Intravenous, Administer over 60 Minutes, Once, On Neha 01/13/21 at 1415, For 1 dose [facility] Medication administered onsite 2 ML Midazolam 1 MG/ML Injection midazolam (PF) (VERSE D) injection midazolam (PF) (VERSED) injection 01/13/2021 02:10:15 PM EDT completed Once PRN, Starting on Neha 01/13/21 at 1410 [facility] Medication administered onsite fentaNYL (SUBLIMAZE) (PF) injection [id number] 01/13/2021 02:10:01 PM EDT completed Once PRN, Starting on Neha 01/13/21 at 1410 [facility] Medication administered onsite sodium bicarbonate 8.4 % 8 mL in lidocaine (XYLOCAINE) 2 % 2 mL injection 01/13/2021 02:08:44 PM EDT completed Once PRN, Starting on Neha 01/13/21 at 1408 [facility] Medication administered onsite Folic Acid 1 MG Oral Tablet folic acid (FOLVITE) table t 1 mg folic acid (FOLVITE) tablet 1 mg 01/13/2021 01:45:00 PM EDT 1 mg Oral active 1 mg, Oral, Daily Standard, First dose on Neha 01/13/21 at 1345, For 30 days [facility] Medication administered onsite Piperacillin 3000 MG [...] of piperacillin-tazobactam is compatible with Lactated Ringers.
[facility] Medication administered onsite potassium chloride (K-DUR) dissolvable tablet 40 mEq 86616-1 99-01 01/13/2021 07:45:00 AM EDT 40 meq Oral completed 40 mEq, Oral, Once, On Neha 01/13/21 at 0745, For 1 dose
May be dissolved in water for patients with a G- Tube or unable to swallow. If concern for clogging G-Tube, may contact Pharmacy to switch formulation to a powder packet.
[facility] Medication administered onsite NaCl infusion 0.9 % 7639-1365-82 01/13/2021 07:45:00 AM EDT Intravenous aborted at 150 mL/hr, Intrav enous, Continuous, Starting on Sun01/13/21 at 0745, For 24 hours [facility] Medication administered onsite Oxycodone Hydrochloride 15 MG Oral Table t oxyCODONE (ROXICODONE) immediate release tablet 7.5 mg oxyCODONE (ROXICODONE) immediate release tablet 7.5 mg 01/13/2021 07:33:32 AM EDT 7.5 mg Oral aborted Chron ic Pain 7.5 mg, Oral, Every 4 hours PRN, Moderate Pain (Pain Scale Score 4-6), Starting on Sun01/13/21 at 0733, For 72 hours [facility] Chronic Pain Medication administered onsite potassium chloride 20 mEq in 100 mL IVPB (premix) 4610-6057- [id number] 01/13/2021 03:00:00 AM EDT 20 meq Intravenous completed 20 mEq, Intravenous, Administer over 60 Minutes, Every 1 hour, First dose on Sun01/13/21 at 0300, For 2 doses [facility] Medication administered onsite salmon calcitonin 200 UNT/ML Injectable Solution calcitonin (MIACALCIN) injection 200 Units calcitonin (MIACALCIN) injection 200 Units 01/12/2021 06:45:00 PM EDT 200 U Intramuscular completed 200 Units, Intramuscular, Once, On Sun01/12/21 at 1845, For 1 dose [facility] Medication administered onsite NaCl infusion 0.9 % [id number] 01/12/2021 02:15:00 PM EDT Intravenous aborted at 150 mL/hr, Intrav enous, Continuous, Starting on Sun01/12/21 at 1415, For 24 hours [facility] Medication administered onsite NaCl infusion 0.9 % [id number] 01/12/2021 09:15:00 AM EDT Intravenous aborted at 150 mL/hr, Intrav enous, Continuous, Starting on Sun01/12/21 at 0915, For 24 hours [facility] Medication administered onsite Aspirin 81 MG Chewable Tablet aspirin chewable tablet 81 mg aspirin chewable tablet 81 mg 01/12/2021 09:00:00 AM EDT 81 mg Oral abort ed 81 mg, Oral, Daily Standard, First dose on Sun01/12/21 at 0900, For 30 doses [facility] Medication administered onsite POLYETHYLENE GLYCOL 3350 [...] due to potential increased risk for aspiration.
[facility] Medication administered onsite Tamsulosin hydrochloride 0.4 MG Oral Capsule tamsulosi n (FLOMAX) capsule 0.4 mg tamsulosin (FLOMAX) capsule 0.4 mg 01/12/2021 09:00:00 AM EDT 0.4 mg Oral active 0.4 mg, Oral, Daily Standard, First dose on Sun01/12/21 at 0900, For 30 days
Swallow whole. Do not crush, chew or open.
[facility] Medication administered onsite salmon calcitonin 200 UNT/ML Injectable Solution calcitonin (MIACALCIN) injection 200 Units calcitonin (MIACALCIN) injection 200 Units 01/12/2021 08:00:00 AM EDT 200 U Intramuscular completed 200 Units, Intramuscular, Once, On Sun01/12/21 at 0800, For 1 dose [facility] Medication administered onsite potassium phosphate infusion 6 mmol/100 mL (premix) 01/12/2021 03:15:00 AM EDT 6 mmol Intravenous completed 6 mmol, Intravenous, at 25 mL/hr, Once, On Sun01/12/21 at 0315, For 1 dose
Slower infusion rates (e.g. over 4 hours) are recommended in patients with renal impairment and/or less severe hypophosphatemia. Product contains 8.8 mEq of potassium.
[facility] Medication administered onsite potassium chloride 20 mEq in 100 mL IVPB (premix) [id number]- [id number] 01/11/2021 09:00:00 PM EDT 20 meq Intravenous completed 20 mEq, Intravenous, Administer over 60 Minutes, Every 1 hour, First dose on Sun01/11/21 at 2100, For 2 doses [facility] Medication administered onsite Docusate Sodium 100 MG Oral Capsule docusate sodium (C OLACE) capsule 100 mg docusate sodium (COLACE) capsule 100 mg 01/11/2021 09:00:00 PM EDT 100 mg Oral active 100 mg, Oral, 2 Times Daily, First dose on Sun01/11/21 at 2100, For 30 days [facility] Medication administered onsite gabapentin 300 MG Oral Capsule gabapentin (NEURONTIN) capsule 300 mg gabapentin (NEURONTIN) capsule 300 mg 01/11/2021 09:00:00 PM EDT 300 mg Oral active Neuropathic Pain 300 mg, Oral, Nightly, Indic ations: Neuropathic Pain, First dose (after last modification) on Sun01/11/21 at 2100, For 8 doses [facility] Neuropathic Pain Medication administered onsite Oxycodone Hydrochloride 15 MG Oral Table t oxyCODONE (ROXICODONE) immediate release tablet 7.5 mg oxyCODONE (ROXICODONE) immediate release tablet 7.5 mg 01/11/2021 07:44:33 PM EDT 7.5 mg Oral aborted Chron ic Pain 7.5 mg, Oral, Every 4 hours PRN, Moderate Pain (Pain Scale Score 4-6), Starting on Sun01/11/21 at 1944, For 69 hours [facility] Chronic Pain Medication administered onsite Piperacillin [...] piperacillin- tazobactam is compatible with Lactated Ringers.
[facility] Medication administered onsite NaCl infusion 0.9 % [id number] 01/11/2021 05:30:00 PM EDT Intravenous completed at 150 mL/hr, Intrav enous, Continuous, Starting on Sun01/11/21 at 1730, For 12 hours [facility] Medication administered onsite Acetaminophen 325 MG [...] mg from all sources in 24 hours.
[facility] Medication administered onsite Carisoprodol 350 MG Oral Tablet carisoprodol (SOMA) ta blet 350 mg carisoprodol (SOMA) tablet 350 mg 01/11/2021 05:17:53 PM EDT 350 mg Oral active 350 mg, Oral, Three Times Daily-PRN, muscle spasms, Starting on Sun01/11/21 at 1717, For 7 days [facility] Medication administered onsite Ondansetron 8 MG Oral Tablet ondansetron (ZOFRAN) tabl et 8 mg ondansetron (ZOFRAN) tablet 8 mg 01/11/2021 05:17:53 PM EDT 8 mg Oral active 8 mg, Oral, Every 8 hours PRN, Nausea, Vomiting, Starting on Sun01/11/21 at 1717, For 30 days [facility] Medication administered onsite NaCl infusion 0.9 % [id number] 01/11/2021 02:30:00 PM EDT Intravenous completed Hypercalcemia at 125 mL/hr, Intrav enous, Once, On Sun01/11/21 at 1430, For 1 dose [facility] Hypercalcemia Medication administered onsite Piperacillin 3000 [...] of piperacillin-tazobactam is compatible with Lactated Ringers.
[facility] Acute cystitis with hematuria Medication administered onsite salmon calcitonin 200 UNT/ML Injectable Solution calcitonin (MIACALCIN) injection 288 Units calcitonin (MIACALCIN) injection 288 Units 01/11/2021 02:15:00 PM EDT 288 U Subcutaneous completed Hypercalc emia 288 Units, Subcutaneous, Once, On Sun01/11/21 at 1430, For 1 dose [facility] Hypercalcemia Medication administered onsite sodium chloride 0.9 % bolus 1,000 mL [id number] 01/11/2021 12:45: 00 PM EDT 1000 mL Intravenous completed Hypercalcemia 1,00 0 mL, Intravenous, Once, On Sun01/11/21 at 1245, For 1 dose [facility] Hypercalcemia Medication administered onsite alteplase (CATHFLO) injection 2 mg [id number] 01/11/2021 11:00:00 AM EDT 2 mg Intracatheter completed Malignant tumor of prostate 2 mg, Intracatheter, Once, On Sun01/11/21 at 1100, For 1 dose
To be instilled by PICC team or IR nurse only for at least 30 minutes
[facility] Malignant tumor of prostate Medication administered onsite lidocaine (XYLOCAINE) 2 % urojet 20 mL [id number] 12:00:00 PM EDT 20 mL Urethral aborted [facility] Potassium Chloride 0.1 MEQ/ML Injectable Solution potassium chloride 10 mEq in 100 mL IVPB (premix) potassium chloride 10 mEq in 100 mL IVPB (premix) 12/14/2020 02:00:00 PM EDT 10 meq Intravenous completed Hypokalemia 10 mEq, Intravenous, Administer over 60 Minutes, Once, On Sun12/14/20 at 1400, For 1 dose [facility] Hypokalemia Medication administered onsite sodium chloride 0.9 % bolus 1,000 mL [id number] 12/14/2020 01:45: 00 PM EDT 1000 mL Intravenous completed Dehydration 1,000 mL, Intravenous, Once, On Sun12/14/20 at 1345, For 1 dose
Infuse over 90 minutes
[facility] Dehydration Medication administered onsite sennosides, HALFWAY 8.6 MG Oral Tablet senna tablet 2 tablet sen na tablet 2 tablet 12/14/2020 01:30:00 PM EDT 2 {tbl} Oral com pleted Drug-induced constipation 2 tablet, Oral, Once, On Sun12/14/20 at 1330, For 1 dose [facility] Drug-induced constipation Medication administered onsite 8.6 mg 12/14/2020 12:00:00 AM EDT tablet 30 TAKE ONE TABLET BY MOUTH ONCE DAILY TAKE ONE TABLET BY MOUTH ONCE DAILY SOLD: 03/17/2021 [facility] 8.6 mg 12/14/2020 12:00:00 AM EDT tablet 30 TAKE ONE TABLET BY MOUTH ONCE DAILY TAKE ONE TABLET BY MOUTH ONCE DAILY SOLD: 12/14/2020 [facility] sennosides, HALFWAY 8.6 MG Oral Tablet SM Senna Laxative 8 .6 MG Oral Tablet SM Senna Laxative 8.6 MG Oral Tablet 12/14/2020 12:00:00 AM EDT 1 {tbl} Oral active Take 1 tablet by mouth daily [facility] 17 gram/dose 12/14/2020 12:00:00 AM EDT powder 510 MIX 17 GRAMS IN 4-8 OUNCES OF LIQUID AND DRINK ONCE DAILY MIX 17 GRAMS IN 4-8 OUNCES OF LIQUID AND DRINK ONCE DAILY SOLD: 12/14/2020 [facility] POLYETHYLENE GLYCOL 3350 142 MG/ML Oral Solution PEG 3350 17 GM/SCOOP Oral Powder (MIRALAX) PEG 3350 17 GM/SCOOP Oral Powder (MIRALAX) 12/14/2020 12:00:00 AM EDT 17 g Oral active Drug-induced constipatio n Take 17 g by mouth daily [facility] Drug-induced constipation Docusate Sodium 50 MG / sennosides, HALFWAY 8.6 MG Oral Tablet Senna-Docusate Sodium 8.6-50 MG Oral Tablet (SENOKOT-S) Senna-Docusate Sodium 8.6-50 MG Oral Tab let (SENOKOT-S) 12/14/2020 12:00:00 AM EDT 1 {tbl} Oral a ctive Drug-induced constipation Take 1 tablet by mouth daily [facility] Drug-induced constipation 10 gram/15 mL 12/14/2020 12:00:00 AM EDT solution 240 TAKE 30MLS BY MOUTH THREE TIMES A DAY FOR 3 DAYS TAKE 30MLS BY MOUTH THREE TIMES A DAY FOR 3 DAYS SOLD: 12/14/2020 [facility] Lactulose 667 MG/ML Oral Solution Lactul ose 10 GM/15ML Oral Solution (CHRONULAC) Lactulose 10 GM/15ML Oral Solution (CHRONULAC) 12/14/2020 12:00: 00 AM EDT 20 g Oral active Drug-induced constipation Take 30 mLs by mouth Three times daily for 3 days [facility] Drug-induced constipation 15 mg 12/11/2020 12:00:00 AM EDT tablet 180 TAKE ONE TABLET BY MOUTH EVERY 4 HOURS NEEDED FOR CANCER RELATED PAIN MAXIMUM DAILY DOSE = 6 TAKE ONE TABLET BY MOUTH EVERY 4 HOURS NEEDED FOR CANCER RELATED PAIN MAXIMUM DAILY DOSE = 6 SOLD: 12/12/2020 [facility] Oxycodone Hydrochloride 15 MG Oral Table t oxyCODONE HCl 15 MG Oral Tablet (ROXICODONE) oxyCODONE HCl 15 MG Oral Tablet (ROXICODONE) 12:00:00 AM EDT 15 mg Oral aborted Chronic Pain Peter e 1 tablet by mouth every 4 (four) hours as needed for PainCancer related pain, Max Daily Dose: 90 mg Indications: Chronic Pain [facility] Chronic Pain Self-Cath Coude Tip 66435-762-60 11/29/2020 12:00:00 AM EDT active Use as directed. DAILY [facility] 1.5 ML Leuprolide Acetate 15 MG/ML Prefi lled Syringe leuprolide acetate (LUPRON) injection 22.5 mg leuprolide acetate (LUPRON) injection 22.5 mg 11/24/19 11:30:00 AM EDT 22.5 mg Intramuscular completed 22.5 mg, Intramuscular, Once, On Sun11/23/20 at 1130, For 1 dose
FOR IM USE ONLY
[facility] Medication administered onsite Cabazitaxel (JEVTANA) 51 [...] time. Administer through a 0.22 micron filter.
[facility] Prostate cancer metastatic to bone Medication administered onsite Diphenhydramine Hydrochloride 25 MG Oral Capsule diphenhydrAMINE (BENADRYL) capsule 25 mg diphenhydrAMINE (BENADRYL) capsule 25 mg 11/23/2020 10 :30:00 AM EDT 25 mg Oral completed Prostate cancer metast atic to bone 25 mg, Oral, Once, On Sun11/23/20 at 1030, For 1 dose
Give prior to chemotherapy.
[facility] Prostate cancer metastatic to bone Medication administered onsite Famotidine 20 MG Oral Tablet famotidine (PEPCID) table t 20 mg famotidine (PEPCID) tablet 20 mg 11/23/2020 10:30:00 AM EDT 20 mg Oral completed Prostate cancer metastatic to bone 20 mg, Oral, Once, On Sun11/23/20 at 1030, For 1 dose [facility] Prostate cancer metastatic to bone Medication administered onsite Ondansetron 8 MG Oral Tablet ondansetron (ZOFRAN) tabl et 16 mg ondansetron (ZOFRAN) tablet 16 mg 11/23/2020 10:30:00 AM EDT 16 mg Oral completed Prostate cancer metastatic to bone 16 mg, Oral, Once, On Sun11/23/20 at 1030, For 1 dose
Give prior to chemotherapy
[facility] Prostate cancer metastatic to bone Medication administered onsite Dexamethasone 4 MG Oral Tablet dexamethasone (DECADRON ) tablet 20 mg dexamethasone (DECADRON) tablet 20 mg 11/23/2020 10:30:00 AM EDT 20 m g Oral completed Prostate cancer metastatic to bone 20 mg, Oral, Once, On Sun11/23/20 at 1030, For 1 dose
Give prior to chemotherapy.
[facility] Prostate cancer metastatic to bone Medication [...] hours as needed for Nausea or Vomiting [facility] Prostate cancer metastatic to bone Prednisone 10 MG Oral Tablet predniSONE 10 MG Oral Tab let (DELTASONE) predniSONE 10 MG Oral Tablet (DELTASONE) 11/23/2020 12:00:00 AM EDT 10 mg Ora l completed Prostate cancer metastatic to bone Take 1 tablet by mouth daily [facility] Prostate cancer metastatic to bone Prochlorperazine 10 MG Oral Tablet Proch lorperazine Maleate 10 MG Oral Tablet (COMPAZINE) Prochlorperazine Maleate 10 MG Oral Tablet (COMPAZINE) 11/23/2020 12:00:00 AM EDT 10 mg Oral active Prostate cancer metastatic to bone Take 1 tablet by mouth every 6 (six) hours as needed (Nausea/Vomiting) [facility] Prostate cancer metastatic to bone 10 mg 11/23/2020 12:00:00 AM EDT tablet 21 TAKE ONE TABLET BY MOUTH EVERY DAY TAKE ONE TABLET BY MOUTH EVERY DAY SOLD: 11/25/2020 [facility] 8 mg 11/23/2020 12:00:00 AM EDT tablet 20 TAKE ONE TABLET BY MOUTH EVERY 8 HOURS NEEDED FOR NAUSEA OR VOMITING TAKE ONE TABLET BY MOUTH EVERY 8 HOURS A S NEEDED FOR NAUSEA OR VOMITING SOLD: 11/25/2020 [facility] gadobutrol (GADAVIST) contrast injection 9.5 mL [id number] 11/22/2020 05:00:00 PM EDT 0.1 mL/kg Intravenous completed 9.5 mL (rounded from 9.71 mL = 0.1 mL/kg 97.1 kg), Intravenous, 1 TIME IMAGING, On Sun11/22/20 at 1700, For 1 dose, Imaging Protocol
Do not mix or administer in the same IV line with other tn dications.
[facility] Medication administered onsite 15 mg 11/17/2020 12:00:00 AM EDT tablet extended release 60 TAKE ONE TABLET BY MOUTH TWICE A DAY MAXIMUM DAILY DOSE = TWO TABLETS TAKE ONE TABLET BY MOUTH TWICE A DAY MAXIMUM DAILY DOSE = TWO TABLETS SOLD: 11/17/2020 [facility] Morphine Sulfate 15 MG Extended Release Oral Tablet Morphine Sulfate ER 15 MG Oral Tablet Extended Release (MS CONTIN) Morphine Sulfate ER 15 MG Oral Tablet Extended Release (MS CONTIN) 11/16/2020 12:00:00 AM EDT 15 mg Oral active Cancer associated painProstate cancer metastatic to bone Take 1 tablet by mouth Two Times Daily , Max Daily Dose: 30 mg [facility] Cancer associated pain Prostate cancer metastatic to bone Ondansetron 4 MG Disintegrating Oral Tablet ONDANSETRON 11/11/2020 12:00:00 AM EDT tablet,disintegrating 30 DISSOLVE O NE TABLET ON TONGUE EVERY 4 HOURS NEEDED FOR NAUSEA DISSOLVE ONE TABLET ON TONGUE EVERY 4 HO URS NEEDED FOR NAUSEA SOLD: 11/12/2020 [facility] Oxycodone Hydrochloride 15 MG Oral Table t oxyCODONE HCl 15 MG Oral Tablet (ROXICODONE) oxyCODONE HCl 15 MG Oral Tablet (ROXICODONE) 12:00:00 AM EDT 15 mg Oral aborted Chronic Pain Peter e 1 tablet by mouth every 4 (four) hours as needed for PainCancer related pain, Max Daily Dose: 90 mg Indications: Chronic Pain [facility] Chronic Pain 15 mg 11/11/2020 12:00:00 AM EDT tablet 180 TAKE ONE TABLET BY MOUTH EVERY 4 HOURS NEEDED FOR CANCER RELATED PAIN , MAXIMUM DAILY DOSE = 6 TABLETS TAKE ONE TABLET BY MOUTH EVERY 4 HOURS NEEDED FOR CANCER RELATED PAIN , MAXIMUM DAILY DOSE = 6 TABLETS SOLD: 11/12/2020 [facility] 500 mg 11/09/2020 12:00:00 AM EDT tablet 14 TAKE ONE TABLET BY MOUTH TWICE A DAY TAKE ONE TABLET BY MOUTH TWICE A DAY SOLD: 11/09/2020 [facility] Ciprofloxacin 500 MG Oral Tablet [Cipro] Cipro 500 MG Cipro 500 MG 11/08/2020 12:00:00 AM EDT 1.0 {tablet} active Ci pro 500 MG eCW1 ([facility]) 0.05 % 10/24/2020 12:00:00 AM EDT ointment 30 APPLY TO AFFECTED AREA(S) TWO TIMES A DAY IF RASH RECURS ON BODY, DO NOT APPLY TO FACE, GROIN, OR ARMPITS APPLY TO AFFECTED AREA(S) TWO TIMES A DAY IF RASH RECURS ON BODY, DO NOT APPLY TO FACE, GROIN, OR ARMPITS SOLD: 11/17/2020 [facility] 0.05 % 10/24/2020 12:00:00 AM EDT ointment 30 APPLY TO AFFECTED AREA(S) TWO TIMES A DAY IF RASH RECURS ON BODY, DO NOT APPLY TO FACE, GROIN, OR ARMPITS APPLY TO AFFECTED AREA(S) TWO TIMES A DAY IF RASH RECURS ON BODY, DO NOT APPLY TO FACE, GROIN, OR ARMPITS SOLD: 10/29/2020 [facility] 350 mg 10/21/2020 12:00:00 AM EDT tablet 90 TAKE ONE TABLET BY MOUTH THREE TIMES A DAY NEEDED, MAXIMUM DAILY DOSE = THREE TABLETS TAKE ONE TABLET BY MOUTH THREE TIMES A DAY NEEDED, MAXIMUM DAILY DOSE = THREE TABLETS SOLD: 10/29/2020 [facility] 350 mg 10/21/2020 12:00:00 AM EDT tablet 90 TAKE ONE TABLET BY MOUTH THREE TIMES A DAY NEEDED, MAXIMUM DAILY DOSE = THREE TABLETS TAKE ONE TABLET BY MOUTH THREE TIMES A DAY NEEDED, MAXIMUM DAILY DOSE = THREE TABLETS SOLD: 03/17/2021 [facility] 350 mg 10/21/2020 12:00:00 AM EDT tablet 90 TAKE ONE TABLET BY MOUTH THREE TIMES A DAY NEEDED, MAXIMUM DAILY DOSE = THREE TABLETS TAKE ONE TABLET BY MOUTH THREE TIMES A DAY NEEDED, MAXIMUM DAILY DOSE = THREE TABLETS SOLD: 01/27/2021 [facility] Ciprofloxacin 500 MG Oral Tablet [Cipro] Cipro 500 MG Cipro 500 MG 10/20/2020 12:00:00 AM EDT 1.0 {tablet} active Ci pro 500 MG eCW1 ([facility]) Ciprofloxacin 500 MG Oral Tablet [Cipro] Cipro 500 MG Cipro 500 MG 10/20/2020 12:00:00 AM EDT 1.0 {tablet} active Ci pro 500 MG eCW1 ([facility]) Ciprofloxacin 500 MG Oral Tablet [Cipro] Cipro 500 MG Cipro 500 MG 10/20/2020 12:00:00 AM EDT 1.0 {tablet} active Ci pro 500 MG eCW1 ([facility]) 500 mg 10/20/2020 12:00:00 AM EDT tablet 14 TAKE ONE TABLET BY MOUTH EVERY 12 HOURS FOR 7 DAYS TAKE ONE TABLET BY MOUTH EVERY 12 HOURS FOR 7 DAYS TEE [facility] Ciprofloxacin 500 MG Oral Tablet [Cipro] Cipro 500 MG Cipro 500 MG 10/20/2020 12:00:00 AM EDT 1.0 {tablet} active Ci pro 500 MG eCW1 ([facility]) 300 mg 10/13/2020 12:00:00 AM [...] DAILY DOSE = SIX TABLETS SOLD: 10/11/2020 [facility] Oxycodone Hydrochloride 15 MG Oral Table t oxyCODONE HCl 15 MG Oral Tablet (ROXICODONE) oxyCODONE HCl 15 MG Oral Tablet (ROXICODONE) 12:00:00 AM EDT 15 mg Oral aborted Chronic Pain Peter e 1 tablet by mouth every 4 (four) hours as needed for PainCancer related pain, Max Daily Dose: 90 mg Indications: Chronic Pain [facility] Chronic Pain TC-99M medronate (Tc-MDP) [address]-1 10/05/2020 10:45:00 AM EDT Intravenous completed Intravenous, Once, On Sun10/05/20 at 1045, For 1 dose, Imaging Protocol [facility] Medication administered onsite 15 mg 09/10/2020 12:00:00 AM EDT tablet 180 TAKE ONE TABLET BY MOUTH EVERY 4 HOURS NEEDED FOR PAIN , MAXIMUM DAILY DOSE = 6 TABLETS TAKE ONE TABLET BY MOUTH EVERY 4 HOURS NEEDED FOR PAIN , MAXIMUM DAILY DOSE = 6 TABLETS SOLD: 09/13/2020 [facility] Oxycodone Hydrochloride 15 MG Oral Table t oxyCODONE HCl 15 MG Oral Tablet (ROXICODONE) oxyCODONE HCl 15 MG Oral Tablet (ROXICODONE) 12:00:00 AM EDT 15 mg Oral active Chronic Pain Peter e 1 tablet by mouth every 4 (four) hours as needed for PainCancer related pain, Max Daily Dose: 90 mg Indications: Chronic Pain [facility] Chronic Pain 1.5 ML Leuprolide Acetate 15 MG/ML Prefi lled Syringe leuprolide acetate (LUPRON) injection 22.5 mg leuprolide acetate (LUPRON) injection 22.5 mg 08/21/19 11:45:00 AM EDT 22.5 mg Intramuscular completed 22.5 mg, Intramuscular, Once, On Sun08/20/20 at 1145, For 1 dose
FOR IM USE ONLY
[facility] Medication administered onsite Oxycodone Hydrochloride 15 MG Oral Table t oxyCODONE HCl 15 MG Oral Tablet (ROXICODONE) oxyCODONE HCl 15 MG Oral Tablet (ROXICODONE) 12:00:00 AM EDT 15 mg Oral active Chronic Pain Peter e 1 tablet by mouth every 4 (four) hours as needed for PainCancer related pain, Max Daily Dose: 90 mg Indications: Chronic Pain [facility] Chronic Pain 0.12 % 08/12/2020 12:00:00 [...] MAXIMUM DAILY DOSE =6 TABLETS SOLD: 07/14/2020 [facility] 15 mg 06/15/2020 12:00:00 AM EST tablet 180 TAKE ONE TABLET BY MOUTH EVERY 4 HOURS NEEDED FOR PAIN, MAXIMUM DAILY DOSE = SIX TABLETS TAKE ONE TABLET BY MOUTH EVERY 4 HOURS NEEDED FOR PAIN, MAXIMUM DAILY DOSE = SIX TABLETS SOLD: 06/15/2020 [facility] enzalutamide 40 MG Oral Capsule [Xtandi] Xtandi 40 MG Oral Capsule (Enzalutamide) Xtandi 40 MG Oral Capsule (Enzalutamide) 06/14/2020 12 :00:00 AM EST active Primary prostate adenoca rcinoma TAKE 4 CAPSULES BY MOUTH EVERY DAY [facility] Primary prostate adenocarcinoma 1.5 ML Leuprolide Acetate 15 MG/ML Prefi lled Syringe leuprolide (ELIGARD) SubQ injection 22.5 mg for 3-month administration leuprolide (ELIGARD) SubQ injection 22.5 mg for 3-month administration 05/21/2020 11:00:00 AM EST 2 2.5 mg Subcutaneous completed Prostate cancer metastatic to bone 22.5 mg, Subcutaneous, Once, Sun05/21/20 at 1100, For 1 dose [facility] Prostate cancer metastatic to bone Medication administered onsite 15 mg 05/14/2020 12:00:00 AM EST tablet 180 TAKE ONE TABLET BY MOUTH EVERY 4 HOURS NEEDED FOR PAIN MAXIMUM DAILY DOSE = SIX TABLETS TAKE ONE TABLET BY MOUTH EVERY 4 HOURS NEEDED FOR PAIN MAXIMUM DAILY DOSE = SIX TABLETS SOLD: 05/14/2020 [facility] Oxycodone Hydrochloride 15 MG Oral Table t oxyCODONE HCl 15 MG Oral Tablet (ROXICODONE) oxyCODONE HCl 15 MG Oral Tablet (ROXICODONE) 12:00:00 AM EST 15 mg Oral active Chronic Pain Peter e 1 tablet by mouth every 4 (four) hours as needed for PainCancer related pain, Max Daily Dose: 90 mg Indications: Chronic Pain [facility] Chronic Pain 15 mg 04/13/2020 12:00:00 [...] EST active Gabapent in 300 MG eCW1 ([facility]) gabapentin 300 MG Oral Capsule Gabapentin 300 MG Gabapentin 300 MG 03/08/2020 12:00:00 AM EST active Gabapent in 300 MG eCW1 ([facility]) 800 mg 03/08/2020 12:00:00 AM [...] EST active Gabapent in 300 MG eCW1 ([facility]) gabapentin 300 MG Oral Capsule Gabapentin 300 MG Gabapentin 300 MG 03/08/2020 12:00:00 AM EST active Gabapent in 300 MG eCW1 ([facility]) gabapentin 300 MG Oral Capsule Gabapentin 300 MG Gabapentin 300 MG 03/08/2020 12:00:00 AM EST active Gabapent in 300 MG eCW1 ([facility]) 0.05 % 03/08/2020 12:00:00 AM [...] EST active Gabapent in 300 MG eCW1 ([facility]) 0.05 % 03/08/2020 12:00:00 AM [...] EST active Gabapent in 300 MG eCW1 ([facility]) gabapentin 300 MG Oral Capsule Gabapentin 300 MG Gabapentin 300 MG 03/08/2020 12:00:00 AM EST active Gabapent in 300 MG eCW1 ([facility]) 350 mg 03/08/2020 12:00:00 AM EST tablet 90 TAKE ONE TABLET BY MOUTH THREE TIMES A DAY NEEDED, MAXIMUM DAILY DOSE = THREE TABLETS TAKE ONE TABLET BY MOUTH THREE TIMES A DAY NEEDED, MAXIMUM DAILY DOSE = THREE TABLETS SOLD: 06/15/2020 [facility] 350 mg 03/08/2020 12:00:00 AM EST [...] AY WITH FOOD OR MILK SOLD: 08/12/2020 [facility] gabapentin 300 MG Oral Capsule Gabapentin 300 MG Gabapentin 300 MG 03/08/2020 12:00:00 AM EST active Gabapent in 300 MG eCW1 ([facility]) 350 mg 03/08/2020 12:00:00 AM EST tablet 90 TAKE ONE TABLET BY MOUTH THREE TIMES A DAY NEEDED, MAXIMUM DAILY DOSE = THREE TABLETS TAKE ONE TABLET BY MOUTH THREE TIMES A DAY NEEDED, MAXIMUM DAILY DOSE = THREE TABLETS SOLD: 05/07/2020 [facility] 1.5 ML Leuprolide Acetate 15 MG/ML Prefi lled Syringe leuprolide (ELIGARD) SubQ injection 22.5 mg for 3-month administration leuprolide (ELIGARD) SubQ injection 22.5 mg for 3-month administration 02/19/2020 03:15:00 PM EDT 2 2.5 mg Subcutaneous completed Primary prostate adenocarcinoma 22.5 mg, Subcutaneous, Once, [facility] 02/19/20 at 1515, For 1 dose [facility] Primary prostate adenocarcinoma Medication administered onsite 15 mg 02/12/2020 12:00:00 AM EDT tablet 180 TAKE ONE TABLET BY MOUTH EVERY 4 HOURS NEEDED FOR PAIN, MAXIMUM DAILY DOSE = SIX TABLETS TAKE ONE TABLET BY MOUTH EVERY 4 HOURS NEEDED FOR PAIN, MAXIMUM DAILY DOSE = SIX TABLETS SOLD: 02/12/2020 [facility] Oxycodone Hydrochloride 15 MG Oral Table t oxyCODONE HCl 15 MG Oral Tablet (ROXICODONE) oxyCODONE HCl 15 MG Oral Tablet (ROXICODONE) 0 12:00:00 AM EDT 15 mg Oral active Chronic Pain Peter e 1 tablet by mouth every 4 (four) hours as needed for Pain, Max Daily Dose: 90 mg Indications: Chronic Pain [facility] Chronic Pain 0.12 % 02/11/2020 12:00:00 AM EDT mouthwash 473 RINSE MOUTH/THROAT DIRECTED TWO TIMES A DAY RINSE MOUTH/THROAT DIRECTED TWO TIMES A DAY SOLD: 02/12/2020 [facility] 0.12 % 12/03/2019 12:00:00 AM EDT mouthwash 473 USE DIRECTED TWO TIMES A DAY USE DIRECTED TWO TIMES A DAY SOLD: 05/07/2020 [facility] Pentoxifylline 400 MG Extended Release O ral Tablet pentoxifylline (TRENTAL) 400 MG CR tablet pentoxifylline (TRENTAL) 400 MG CR tablet 12/01/2018 1 2:00:00 AM EDT aborted TAKE ONE TABLET BY MOUTH TWICE A DAY SWALLOW WHOLE DO NOT CRUSH BREAK OR CHEW [facility] Catheters (BARD COUDE TIP CATHETER) [facility] [phone] 12:00:00 AM EDT aborted Use as directed. Use as directed 6 times daily [facility] irbesartan 300 MG Oral Tablet irbesartan (AVAPRO) 300 MG tablet irbesartan (AVAPRO) 300 MG tablet 10/15/2018 12:00:00 AM EDT 300 mg Oral aborted Take 300 mg by mouth daily [facility] Losartan Potassium 50 MG Oral Tablet losartan (COZAAR) 50 MG tablet losartan (COZAAR) 50 MG tablet 01/17/2018 12:00:00 AM EDT 50 mg Oral aborted Take 50 mg by mouth daily [facility] atorvastatin 20 MG Oral Tablet atorvastatin (LIPITOR) 20 MG tablet atorvastatin (LIPITOR) 20 MG tablet 01/07/2018 12:00:00 AM EDT 20 mg Oral aborted Take 20 mg by mouth daily [facility] Amlodipine 10 MG Oral Tablet amlodipine (NORVASC) 10 M G tablet amlodipine (NORVASC) 10 MG tablet 09/17/2017 12:00:00 AM EDT 10 mg Oral aborted Take 10 mg by mouth daily [facility] 12 HR Orphenadrine Citrate 100 MG Extend ed Release Oral Tablet orphenadrine (NORFLEX) 100 MG tablet orphenadrine (NORFLEX) 100 MG tablet 09/14/2017 12:00: 00 AM EDT 100 mg Oral aborted Osteoarthr itis of cervical spine, unspecified spinal osteoarthritis complication status Take 1 table t by mouth Two times daily as needed for Muscle spasms for up to 60 doses [facility] Osteoarthritis of cervical spine, unspec ified spinal osteoarthritis complication status Losartan Potassium 25 MG Oral Tablet losartan (COZAAR) 25 MG tablet losartan (COZAAR) 25 MG tablet 25 mg Oral aborted Ta ke 25 mg by mouth daily [facility] Diclofenac Sodium 50 MG Delayed Release Oral Tablet diclofenac (VOLTAREN) 50 MG EC tablet diclofenac (VOLTAREN) 50 MG EC tablet 50 mg Oral aborted Take 50 mg by mouth Two Times Daily [facility] Leuprolide Acetate (LUPRON DEPOT IM) Intramuscular aborted Inject into the muscle every 3 (three) months [facility] Ascorbic Acid (VITAMIN C PO) Oral aborted Take by mouth. [facility] Calcium Carbonate 1500 MG Oral Tablet calcium carbonat e (OS-EDWIN) 600 MG TABS calcium carbonate (OS-EDWIN) 600 MG TABS 600 mg Oral aborted Take 600 mg by mouth daily [facility] Losartan Potassium 25 MG Oral Tablet losartan (COZAAR) 25 MG tablet losartan (COZAAR) 25 MG tablet 25 mg Oral aborted Ta ke 25 mg by mouth [facility] Insurance Providers Payer name Policy type / Coverage type Policy ID Covered constitution party ID Covered constitution party's relationship to garcia Policy Garcia Plan Information [facility] I [id number] Self [id number] [facility] I [id number] Self [id number] [facility] I [id number] Self [id number] [facility]ITY [facility] [id number] SP [id number] [facility] COMMUNITY PLAN [facility] [id number] SP [id number] MEDICAID [id number] SP [id number] [employer] COMMUNITY PLAN MCDHMO [id number] SP [id number] MEDICAID M [id number] Self [id number] UHC I [id number] Self [id number] UHC I [id number] Self [id number] UHC I [id number] Self [id number] MEDICAID M [id number] Self [id number] UHC I [id number] Self [id number] UHC I [id number] Self [id number] ANSI-Medicaid [id number] ANSI-Medicaid [id number] ANSI-Medicaid [id number] ANSI-Medicaid [id number] ANSI-Medicaid [id number] ANSI-Medicaid [id number] ANSI-Medicaid [id number] ANSI-Medicaid [id number] ANSI-Medicaid [id number] ANSI-Medicaid [id number] ANSI-Medicaid [id number] ANSI-Medicaid [id number] ANSI-Medicaid [id number] ANSI-Medicaid [id number] ANSI-Medicaid [id number] ANSI-Medicaid [id number] ANSI-Medicaid [id number] ANSI-Medicaid [id number] ANSI-Medicaid [id number] ANSI-Medicaid [id number] ANSI-Medicaid [id number] ANSI-Medicaid [id number] ANSI-Medicaid [id number] ANSI-Medicaid [id number] ANSI-Medicaid [id number] ANSI-Medicaid [id number] ANSI-Medicaid [id number] ANSI-Medicaid [id number] ANSI-Medicaid [id number] ANSI-Medicaid [id number] ANSI-Medicaid [id number] ANSI-Medicaid [id number] ANSI-Medicaid [id number] ANSI-Medicaid [id number] ANSI-Medicaid [id number] ANSI-Medicaid [id number] [employer] COMMUNITY PLAN MCDHMO [id number] SP [id number] SELF PAY ONLY UNAVAILABLE SP UNAV AILABLE UNHC COMMUNITY PLAN MCDHMO [id number] SP [id number] UNHC COMMUNITY PLAN MCDHMO [id number] SP [id number] UNHC COMMUNITY PLAN MCDHMO UNK SP UNK [facility] Health Maintenance Organization (HMO) [id number] Self Community Plan - [facility] Commercial [id number] Self UNHC COMMUNITY PLAN MCDHMO [id number] SP [id number] UNHC COMMUNITY PLAN MCDHMO [id number] SP [id number] Unitedhealthcare Medicaid Medicaid [id number] Self [employer] [place] PLAN [id number] SP [id number] UNHC COMMUNITY PLAN MCDHMO [id number] SP [id number] UNHC COMMUNITY PLAN MCDO [id number] SP [id number] [facility] O [id number] S [id number] MEDICAID [id number] SP [id number] ANSI-Medicaid [id number] ANSI-Medicaid [id number] ANSI-Medicaid [id number] ANSI-Medicaid [id number] ANSI-Medicaid [id number] ANSI-Medicaid [id number] ANSI-Medicaid [id number] ANSI-Medicaid [id number] ANSI-Medicaid [id number] ANS-Medicaid [id number] Problems, Conditions, and Diagnoses Code Display Name Description Problem Type Effective Dates Data Source(s) follow up follow up Diagnosis 03/29/2021 02:42:46 PM [facility] D63.8 Anemia in other chronic diseases classif ied elsewhere Anemia in other chronic diseases classified elsewhere Diagnosis 02/20/2021 12:00:00 AM EDT [place] ([facility]) E83.52 Hypercalcemia Hypercalcemia Diagnosis 02/20/2021 12:00:00 AM [place]T [place] (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 Problem 03/08/2020 12:00:00 AM EST eCW1 ([facility]) M87.08 [id number] Osteonecrosis of jaw Problem 03/08/2020 12:0 0:00 AM EST eCW1 ([facility]) Surgeries/Procedures Procedure Description Date Indications Data Source(s) IR NEPHROSTOMY INSERTION CHANGE <td>IR NEPHROSTOMY INS ERTION CHANGE</td><td>KIMBERLY</td><td>03/21/2021 4:49 PM EST</td><td> Prostate cancer metastatic to bone</td><td></td> 03/21/2021 04:49:00 PM EST Prostate cancer metastatic to bone [facility] Prostate cancer metastatic to bone POCT ID NOW COVID-19 <td>POCT ID NOW COVID-19</td ><td>Routine</td><td>03/21/2021 3:31 PM EST</td><td></td><td> </td> 03/21/2021 03:31:00 PM EST [facility] BLOOD COUNT COMPLETE AUTO&AUTO DIFRNTL WBC COUNT <td>C BC AND DIFFERENTIAL</td><td>Routine</td><td>01/17/2021 3:52 AM EDT</td><td></td><td> </td> 01/17/2021 03:52:00 AM EDT [facility] MAGNESIUM <td>MAGNESIUM LEVEL</td><td> Routine</td><td>01/17/2021 3:52 AM EDT</td><td></td><td> </td> 01/17/2021 03:52:00 AM [facility] BASIC METABOLIC PANEL CALCIUM TOTAL <td>BASIC METABOLI C PANEL</td><td>Routine</td><td>01/17/2021 3:52 AM EDT</td><td></td><td> </td> 01/17/2021 03:52:00 AM [facility] BLOOD COUNT COMPLETE AUTO&AUTO DIFRNTL WBC COUNT <td>C BC AND DIFFERENTIAL</td><td>Routine</td><td>01/16/2021 3:23 AM EDT</td><td></td><td> </td> 01/16/2021 03:23:00 AM [facility] MAGNESIUM <td>MAGNESIUM LEVEL</td><td> Routine</td><td>01/16/2021 3:23 AM EDT</td><td></td><td> </td> 01/16/2021 03:23:00 AM [facility] BASIC METABOLIC PANEL CALCIUM TOTAL <td>BASIC METABOLI C PANEL</td><td>Routine</td><td>01/16/2021 3:23 AM EDT</td><td></td><td> </td> 01/16/2021 03:23:00 AM [facility] TRANSFUSE RBC (ONCE) <td>TRANSFUSE RBC (ONCE)</td ><td>STAT</td><td>01/15/2021 4:46 PM EDT</td><td></td><td></td> 01/15/2021 04:46:11 PM [facility] BLOOD TYPING ABO <td>TYPE AND SCREEN</td><td> STAT</td><td>01/15/2021 12:15 PM EDT</td><td></td><td> </td> 01/15/2021 12:15:00 PM [facility] CONFIRMATORY TYPE <td>CONFIRMATORY TYPE</td><t d>Routine</td><td>01/15/2021 12:20 AM EDT</td><td></td><td> </td> 01/15/2021 12:20:00 AM [facility] BLOOD COUNT COMPLETE AUTO&AUTO DIFRNTL WBC COUNT <td>C BC AND DIFFERENTIAL</td><td>Routine</td><td>01/15/2021 12:20 AM EDT</td><td></td><td> </td> 01/15/2021 12:20:00 AM [facility] BASIC METABOLIC PANEL CALCIUM TOTAL <td>BASIC METABOLI C PANEL</td><td>Routine</td><td>01/15/2021 12:20 AM EDT</td><td></td><td> </td> 01/15/2021 12:20:00 AM [facility] CULTURE BACTERIAL BLOOD AEROBIC W/ID ISOLATES <td>BLOO D CULTURE</td><td>Routine</td><td>01/14/2021 7:58 PM EDT</td><td></td><td></td> 01/14/2021 07:58:00 PM [facility] CULTURE BACTERIAL BLOOD AEROBIC W/ID ISOLATES <td>BLOO D CULTURE</td><td>Routine</td><td>01/14/2021 12:03 PM EDT</td><td></td><td></td> 01/14/2021 12:03:00 PM [facility] COMMUNITY-ACQUIRED DIARRHEA PANEL <td>COMMUNITY-ACQUIR ED DIARRHEA PANEL</td><td>Routine</td><td>01/14/2021 6:19 AM EDT</td><td></td><td> </td> 01/14/2021 06:19:00 AM [facility] BLOOD COUNT COMPLETE AUTO&AUTO DIFRNTL WBC COUNT <td>C BC AND DIFFERENTIAL</td><td>Routine</td><td>01/14/2021 4:56 AM EDT</td><td></td><td> </td> 01/14/2021 04:56:00 AM [facility] BASIC METABOLIC PANEL CALCIUM TOTAL <td>BASIC METABOLI C PANEL</td><td>Routine</td><td>01/14/2021 4:56 AM EDT</td><td></td><td> </td> 01/14/2021 04:56:00 AM [facility] CULTURE BCT ISOL&PRSMPTV ID ISOLATE EA URINE <td>URINE CATHETER CULT</td><td>Routine</td><td>01/13/2021 4:46 PM EDT</td><td></td><td> </td> 01/13/2021 04:46:00 PM [facility] CULTURE BCT ISOL&PRSMPTV ID ISOLATE EA URINE <td>URINE SUPRAPUBIC CUL</td><td>Routine</td><td>01/13/2021 4:46 PM EDT</td><td></td><td></td> 01/13/2021 04:46:00 PM [facility] CULTURE BCT ISOL&PRSMPTV ID ISOLATE EA URINE <td>URINE SUPRAPUBIC CUL</td><td>Routine</td><td>01/13/2021 2:15 PM EDT</td><td></td><td></td> 01/13/2021 02:15:00 PM [facility] IR NEPHROSTOMY INSERTION CHANGE <td>IR NEPHROSTOMY INS ERTION CHANGE</td><td>Routine</td><td>01/13/2021 1:54 PM EDT</td><td></td><td> </td> 01/13/2021 01:54:50 PM [facility] IRON <td>TOTAL FE BINDING CAPACIT Y</td><td>Routine</td><td>01/13/2021 10:32 AM EDT</td><td></td><td> </td> 01/13/2021 10:32:00 AM [facility] LACTATE DEHYDROGENASE LDH <td>LACTATE DEHYDROGENASE</td><td>Routine</td><td>01/13/2021 10:32 AM EDT</td><td></td><td> </td> 01/13/2021 10:32:00 AM [facility] HAPTOGLOBIN QUANTITATIVE <td>HAPTOGLOBIN</td><td>Rout ine</td><td>01/13/2021 10:32 AM EDT</td><td></td><td> </td> 01/13/2021 10:32:00 AM [facility] FOLIC ACID SERUM <td>FOLATE</td><td>Routine</ td><td>01/13/2021 10:32 AM EDT</td><td></td><td> </td> 01/13/2021 10:32:00 AM [facility] FERRITIN <td>FERRITIN LEVEL</td><td>R outine</td><td>01/13/2021 10:32 AM EDT</td><td></td><td> </td> 01/13/2021 10:32:00 AM [facility] CYANOCOBALAMIN VITAMIN B-12 <td>VITAMIN B12</td><td>Ro utine</td><td>01/13/2021 10:32 AM EDT</td><td></td><td> </td> 01/13/2021 10:32:00 AM [facility] POTASSIUM SERUM PLASMA/WHOLE BLOOD <td>POTASSIUM</td><td>Routine</td><td>01/13/2021 6:22 AM EDT</td><td></td><td> </td> 01/13/2021 06:22:00 AM [facility] PHOSPHORUS INORGANIC <td>PHOSPHORUS LEVEL</td><td >Routine</td><td>01/13/2021 6:22 AM EDT</td><td></td><td> </td> 01/13/2021 06:22:00 AM [facility] MAGNESIUM <td>MAGNESIUM LEVEL</td><td> Routine</td><td>01/13/2021 6:22 AM EDT</td><td></td><td> </td> 01/13/2021 06:22:00 AM [facility] BLOOD COUNT COMPLETE AUTO&AUTO DIFRNTL WBC COUNT <td>C BC AND DIFFERENTIAL</td><td>Routine</td><td>01/13/2021 1:42 AM EDT</td><td></td><td> </td> 01/13/2021 01:42:00 AM [facility] CALCIUM IONIZED <td>CALCIUM, IONIZED</td><td >Routine</td><td>01/13/2021 1:42 AM EDT</td><td></td><td> </td> 01/13/2021 01:42:00 AM [facility] BASIC METABOLIC PANEL CALCIUM TOTAL <td>BASIC METABOLI C PANEL</td><td>Routine</td><td>01/13/2021 1:42 AM EDT</td><td></td><td> </td> 01/13/2021 01:42:[address] [facility] CT ABDOMEN & PELVIS W/O CONTRAST MATERIAL <td>CT ABDOM EN PELVIS WITHOUT CONTRAST [id number]</td><td>Routine</td><td>01/12/2021 7:36 PM EDT</td><td></td><td> </td> 01/12/2021 07:36:43 PM [facility] HEPATITIS C ANTIBODY <td>HEPATITIS C ANTIBODY</td ><td>Routine</td><td>01/12/2021 5:41 PM EDT</td><td></td><td> </td> 01/12/2021 05:41:00 PM [facility] PROTHROMBIN TIME <td>PROTIME INR</td><td>Rout ine</td><td>01/12/2021 5:41 PM EDT</td><td></td><td> </td> 01/12/2021 05:41:00 PM [facility] CALCIUM IONIZED <td>CALCIUM, IONIZED</td><td >Routine</td><td>01/12/2021 5:41 PM EDT</td><td></td><td> </td> 01/12/2021 05:41:00 PM [facility] THER RAD SIMULAJ-AIDED FIELD SETTING COMPLEX <td>CT SI MULATION AT RAD ONC (IN OFFICE)</td><td>Routine</td><td>01/12/2021 2:09 PM EDT</td><td> Prostate cancer</td><td></td> 01/12/2021 02:09:00 PM EDT Prostate cancer [facility] Prostate cancer US RETROPERITONEAL REAL TIME W/IMAGE COMPLETE <td>US R ENAL OR AORTA COMPLETE [id number]</td><td>Routine</td><td>01/12/2021 10:59 AM EDT</td><td></td><td> </td> 01/12/2021 10:59:00 AM [facility] MRI BRAIN BRAIN STEM W/O &W/CONTRAST MATERIAL <td>MR B RAIN WITH AND WITHOUT CONTRAST [id number]</td><td>Routine</td><td>01/12/2021 9:53 AM EDT</td><td></td><td> </td> 01/12/2021 09:53:52 AM [facility] CALCIUM IONIZED <td>CALCIUM, IONIZED</td><td >Routine</td><td>01/12/2021 8:24 AM EDT</td><td></td><td> </td> 01/12/2021 08:24:00 AM [facility] COVID-19 PCR <td>COVID-19 PCR</td><td>Rou yandel</td><td>01/12/2021 5:13 AM EDT</td><td></td><td> </td> 01/12/2021 05:13:00 AM [facility] BLOOD COUNT COMPLETE AUTOMATED <td>CBC</td><td>Routine </td><td>01/12/2021 1:11 AM EDT</td><td></td><td> </td> 01/12/2021 01:11:00 AM [facility] PHOSPHORUS INORGANIC <td>PHOSPHORUS LEVEL</td><td >Routine</td><td>01/12/2021 1:11 AM EDT</td><td></td><td> </td> 01/12/2021 01:11:00 AM [facility] PARATHORMONE <td>PTH, INTACT</td><td>Rout ine</td><td>01/12/2021 1:11 AM EDT</td><td></td><td> </td> 01/12/2021 01:11:00 AM [facility] MAGNESIUM <td>MAGNESIUM LEVEL</td><td> Routine</td><td>01/12/2021 1:11 AM EDT</td><td></td><td> </td> 01/12/2021 01:11:00 AM [facility] CALCIUM IONIZED <td>CALCIUM, IONIZED</td><td >Routine</td><td>01/12/2021 1:11 AM EDT</td><td></td><td> </td> 01/12/2021 01:11:00 AM [facility] COMPREHENSIVE METABOLIC PANEL <td>COMPREHENSIVE METABO LIC PANEL</td><td>Routine</td><td>01/12/2021 1:11 AM EDT</td><td></td><td> </td> 01/12/2021 01:11:00 AM [facility] BASIC METABOLIC PANEL CALCIUM TOTAL <td>BASIC METABOLI C PANEL</td><td>Routine</td><td>01/11/2021 6:34 PM EDT</td><td></td><td> </td> 01/11/2021 06:34:00 PM [facility] XR CHEST FRONTAL ONLY [id number] <td>XR CHEST FRONTAL ONLY [id number]</td><td>Routine</td><td>01/11/2021 6:07 PM EDT</td><td></td><td> </td> 01/11/2021 06:07:00 PM [facility] CULTURE BACTERIAL BLOOD AEROBIC W/ID ISOLATES <td>BLOO D CULTURE</td><td>Routine</td><td>01/11/2021 11:50 AM EDT</td><td></td><td> </td> 01/11/2021 11:50:00 AM [facility] CALCIUM IONIZED <td>CALCIUM, IONIZED</td><td >Routine</td><td>01/11/2021 11:40 AM EDT</td><td></td><td> </td> 01/11/2021 11:40:00 AM [facility] EKG 12-LEAD - CMAXX REPORT <td>EKG 12-LEAD - CMAXX REPORT</td><td></td><td>01/11/2021 11:35 AM EDT</td><td></td><td></td> 01/11/2021 11:35:37 AM [facility] EKG 12-LEAD - CMAXX REPORT <td>EKG 12-LEAD - CMAXX REPORT</td><td></td><td>01/11/2021 11:35 AM EDT</td><td></td><td></td> 01/11/2021 11:35:37 AM [facility] EKG 12-LEAD <td>EKG 12-LEAD</td><td>STAT </td><td>01/11/2021 11:35 AM EDT</td><td> Prostate cancer metastatic to bone</td><td> </td> 01/11/2021 11:35:37 AM EDT Prostate cancer metastatic to bone [facility] Prostate cancer metastatic to bone CULTURE BACTERIAL BLOOD AEROBIC W/ID ISOLATES <td>BLOO D CULTURE</td><td>Routine</td><td>01/11/2021 11:28 AM EDT</td><td> Prostate cancer metastatic to bone</td><td> </td> 01/11/2021 11:28:00 AM EDT Prostate cancer metastatic to bone [facility] Prostate cancer metastatic to bone LACTATE <td>LACTIC ACID LEVEL, PLASM A</td><td>STAT</td><td>01/11/2021 11:28 AM EDT</td><td> Prostate cancer metastatic to bone</td><td> </td> 01/11/2021 11:28:00 AM EDT Prostate cancer metastatic to [facility] Prostate cancer metastatic to bone AMMONIA <td>AMMONIA LEVEL</td><td>ST AT</td><td>01/11/2021 11:28 AM EDT</td><td> Secondary malignant neoplasm of bone</td><td> </td> 01/11/2021 11:28:00 AM EDT Secondary malignant neoplasm of bone [facility] Secondary malignant neoplasm of bone PROCALCITONIN (PCT) <td>PROCALCITONIN</td><td>Ro utine</td><td>01/11/2021 11:24 AM EDT</td><td> Prostate cancer metastatic to bone</td><td> </td> 01/11/2021 11:24:00 AM EDT Prostate cancer metastatic to [facility] Prostate cancer metastatic to bone URNLS DIP STICK/TABLET REAGENT AUTO MICROSCOPY <td>URI NALYSIS WITH MICROSCOPIC</td><td>STAT</td><td>01/11/2021 11:24 AM EDT</td><td> Prostate cancer metastatic to bone</td><td> </td> 01/11/2021 11:24:00 AM EDT Prostate cancer metastatic to [facility] Prostate cancer metastatic to bone CULTURE BCT ISOL&PRSMPTV ID ISOLATE EA URINE <td>URINE CULTURE</td><td>Routine</td><td>01/11/2021 11:24 AM EDT</td><td> Prostate cancer metastatic to bone</td><td> </td> 01/11/2021 11:24:00 AM EDT Prostate cancer metastatic to [facility] Prostate cancer metastatic to bone PHOSPHORUS INORGANIC <td>PHOSPHORUS LEVEL</td><td >Routine</td><td>01/11/2021 11:24 AM EDT</td><td></td><td> </td> 01/11/2021 11:24:00 AM T [facility] MAGNESIUM <td>MAGNESIUM LEVEL</td><td> Routine</td><td>01/11/2021 11:24 AM EDT</td><td></td><td> </td> 01/11/2021 11:24:00 AM [facility] BLOOD COUNT COMPLETE AUTO&AUTO DIFRNTL WBC COUNT <td>C BC AND DIFFERENTIAL</td><td>Routine</td><td>01/11/2021 10:45 AM EDT</td><td> Malignant tumor of prostate 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</td><td> </td> 01/11/2021 10:45:00 AM EDT Prostate cancer metastatic to [facility] malignant neoplasm of boneMalignant tumor of prostate [facility] 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 Malignant tumor of prostate PROSTATE SPECIFIC ANTIGEN TOTAL <td>PSA, TOTAL AND FREE</td><td>Routine</td><td>01/11/2021 10:45 AM EDT</td><td> Primary prostate cancer with metastasis from prostate to other site</td><td> </td> 01/11/2021 10:45:00 AM EDT Primary prostate cancer with metastasis from prostate to other site [facility] Primary prostate cancer with metastasis from prostate to other site COMPREHENSIVE METABOLIC PANEL <td>COMPREHENSIVE METABO LIC PANEL</td><td>STAT</td><td>01/11/2021 10:45 AM EDT</td><td> Malignant tumor of prostate 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</td><td> </td> 01/11/2021 10:45:00 AM EDT Prostate cancer metastatic to [place] malignant neoplasm of boneMalignant tumor of prostate [facility] 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 Malignant tumor of prostate XR ABDOMEN AP SUPINE AND AP ERECT [id number] <td>XR ABDOMEN AP SUPINE AND AP ERECT 11444</td><td>STAT</td><td>12/14/2020 12:49 PM EDT</td><td> Lower abdominal pain</td><td> </td> 12/14/2020 12:49:04 PM EDT Lower abdominal pain [facility] Lower abdominal pain BLOOD COUNT COMPLETE AUTO&AUTO DIFRNTL WBC COUNT <td>C BC AND DIFFERENTIAL</td><td>Routine</td><td>12/14/2020 10:40 AM EDT</td><td> Prostate cancer metastatic to bone</td><td> </td> 12/14/2020 10:40:00 AM EDT Prostate cancer metastatic to bone [facility] Prostate cancer metastatic to bone PROSTATE SPECIFIC ANTIGEN TOTAL <td>PSA</td><td>Routin e</td><td>12/14/2020 10:40 AM EDT</td><td> Prostate cancer metastatic to bone</td><td> </td> 12/14/2020 10:40:00 AM EDT Prostate cancer metastatic to bone [facility] Prostate cancer metastatic to bone COMPREHENSIVE METABOLIC PANEL <td>COMPREHENSIVE METABO LIC PANEL</td><td>STAT</td><td>12/14/2020 10:40 AM EDT</td><td> Prostate cancer metastatic to bone</td><td> </td> 12/14/2020 10:40:00 AM EDT Prostate cancer metastatic to bone [facility] Prostate cancer metastatic to bone BLOOD COUNT COMPLETE AUTO&AUTO DIFRNTL WBC COUNT <td>C BC AND DIFFERENTIAL</td><td>Routine</td><td>11/23/2020 9:06 AM EDT</td><td> Prostate cancer metastatic to bone</td><td> </td> 11/23/2020 09:06:00 AM EDT Prostate cancer metastatic to [facility] Prostate cancer metastatic to bone PROSTATE SPECIFIC ANTIGEN TOTAL <td>PSA</td><td>Routin e</td><td>11/23/2020 9:06 AM EDT</td><td> Prostate cancer metastatic to bone</td><td> </td> 11/23/2020 09:06:00 AM EDT Prostate cancer metastatic to [facility] Prostate cancer metastatic to bone COMPREHENSIVE METABOLIC PANEL <td>COMPREHENSIVE METABO LIC PANEL</td><td>STAT</td><td>11/23/2020 9:06 AM EDT</td><td> Prostate cancer metastatic to bone</td><td> </td> 11/23/2020 09:06:00 AM EDT Prostate cancer metastatic to [facility] Prostate cancer metastatic to bone BLOOD COUNT COMPLETE AUTO&AUTO DIFRNTL WBC COUNT <td>C BC AND DIFFERENTIAL</td><td>STAT</td><td>11/16/2020 3:15 PM EDT</td><td> Prostate cancer metastatic to bone</td><td> </td> 11/16/2020 03:15:00 PM EDT Prostate cancer metastatic to [facility] Prostate cancer metastatic to bone PROSTATE SPECIFIC ANTIGEN TOTAL <td>PSA, TOTAL AND FREE</td><td>STAT</td><td>11/16/2020 3:15 PM EDT</td><td> Prostate cancer metastatic to bone</td><td> </td> 11/16/2020 03:15:00 PM EDT Prostate cancer metastatic to [facility] Prostate cancer metastatic to bone COMPREHENSIVE METABOLIC PANEL <td>COMPREHENSIVE METABO LIC PANEL</td><td>STAT</td><td>11/16/2020 3:15 PM EDT</td><td> Prostate cancer metastatic to bone</td><td> </td> 11/16/2020 03:15:00 PM EDT Prostate cancer metastatic to bone [facility] Prostate cancer metastatic to bone LAB RESULTS (OUTSIDE/HISTORICAL) <td>LAB RESULTS (OUTSIDE/HISTORICAL)</td><td></td><td>11/08/2020 10:31 AM EDT</td><td></td><td></td> 11/08/2020 10:31:00 AM EDT [facility] LAB RESULTS (OUTSIDE/HISTORICAL) <td>LAB RESULTS (OUTSIDE/HISTORICAL)</td><td></td><td>11/08/2020 10:30 AM EDT</td><td></td><td></td> 11/08/2020 10:30:00 AM EDT [facility] RADIOLOGY REPORT <td>RADIOLOGY REPORT</td><td ></td><td>11/08/2020 10:27 AM EDT</td><td></td><td></td> 11/08/2020 10:27:00 AM EDT [facility] RADIOLOGY REPORT <td>RADIOLOGY REPORT</td><td ></td><td>11/08/2020 10:26 AM EDT</td><td></td><td></td> 11/08/2020 10:26:00 AM EDT [facility] BONE &/JOINT IMAGING WHOLE BODY <td>NM BONE SCAN IMAGI NG WHOLE BODY [id number]</td><td>Routine</td><td>10/05/2020 12:59 PM EDT</td><td> Prostate cancer metastatic to bone</td><td> </td> 10/05/2020 12:59:00 PM EDT Prostate cancer metastatic to bone [facility] Prostate cancer metastatic to bone BLOOD COUNT COMPLETE AUTO&AUTO DIFRNTL WBC COUNT <td>C BC AND DIFFERENTIAL</td><td>STAT</td><td>08/20/2020 10:48 AM EDT</td><td> Prostate cancer metastatic to bone</td><td> </td> 08/20/2020 10:48:00 AM EDT Prostate cancer metastatic to [facility] Prostate cancer metastatic to bone PROSTATE SPECIFIC ANTIGEN TOTAL <td>PSA, TOTAL AND FREE</td><td>STAT</td><td>08/20/2020 10:48 AM EDT</td><td> Prostate cancer metastatic to bone</td><td> </td> 08/20/2020 10:48:00 AM EDT Prostate cancer metastatic to [facility] Prostate cancer metastatic to bone COMPREHENSIVE METABOLIC PANEL <td>COMPREHENSIVE METABO LIC PANEL</td><td>STAT</td><td>08/20/2020 10:48 AM EDT</td><td> Prostate cancer metastatic to bone</td><td> </td> 08/20/2020 10:48:00 AM EDT Prostate cancer metastatic to [facility] Prostate cancer metastatic to bone BLOOD COUNT COMPLETE AUTO&AUTO DIFRNTL WBC COUNT <td>C BC AND DIFFERENTIAL</td><td>STAT</td><td>05/21/2020 10:07 AM EST</td><td> Prostate cancer metastatic to bone</td><td> </td> 05/21/2020 10:07:00 AM EST Prostate cancer metastatic to [facility] Prostate cancer metastatic to bone PROSTATE SPECIFIC ANTIGEN TOTAL <td>PSA, TOTAL AND FREE</td><td>STAT</td><td>05/21/2020 10:07 AM EST</td><td> Prostate cancer metastatic to bone</td><td> </td> 05/21/2020 10:07:00 AM EST Prostate cancer metastatic to bone [facility] Prostate cancer metastatic to bone COMPREHENSIVE METABOLIC PANEL <td>COMPREHENSIVE METABO LIC PANEL</td><td>STAT</td><td>05/21/2020 10:07 AM EST</td><td> Prostate cancer metastatic to bone</td><td> </td> 05/21/2020 10:07:00 AM EST Prostate cancer metastatic to bone [facility] Prostate cancer metastatic to bone BLOOD COUNT COMPLETE AUTO&AUTO DIFRNTL WBC COUNT <td>C BC AND DIFFERENTIAL</td><td>STAT</td><td>02/19/2020 2:57 PM EDT</td><td> Primary prostate adenocarcinoma</td><td> </td> 02/19/2020 02:57:00 PM EDT Primary prostate adenocarcinoma [facility] Primary prostate adenocarcinoma PROSTATE SPECIFIC ANTIGEN TOTAL <td>PSA, TOTAL AND FREE</td><td>STAT</td><td>02/19/2020 2:57 PM EDT</td><td> Primary prostate adenocarcinoma</td><td> </td> 02/19/2020 02:57:00 PM EDT Primary prostate adenocarcinoma [facility] Primary prostate adenocarcinoma COMPREHENSIVE METABOLIC PANEL <td>COMPREHENSIVE METABO LIC PANEL</td><td>STAT</td><td>02/19/2020 2:57 PM EDT</td><td> Primary prostate adenocarcinoma</td><td> </td> 02/19/2020 02:57:00 PM EDT Primary prostate adenocarcinoma [facility] Primary prostate adenocarcinoma Results ID Date Data Source [id number] 03/30/2021 12:03:16 PM EST [facility] Name Value Range Interpretation Code Description Data Belinda rce(s) Supporting Document(s) Progress Note [facility] [id number] [facility] [file] [id number] ID Date Data Source [id number] 03/22/2021 10:22:46 AM [facility] NEPHROSTOMY INSERTION CHANGEFINAL RES ULTInterpreted by:Alex Flores, CAROLYN BoothROCEDURE: Nephrostomy Catheter Exchange.HISTORY: 60Year-old male with history of prostate cancer metastases to the bone, here for routine right-sided nephrostomy tube exchange..TECHNIQUE:Operators:Attending physician: Alex Flores M.D.Fellow: Keyshawn Joshua M.D.Resident: NoneProcedural Nurse Practitioner: NoneFluoroscopy time 10 minute(s), radiation dose 8.6 mGy.PROCEDURE/FINDINGS:The patient was positioned prone and the right flank as well as the indwelling nephrostomy catheter(s) was prepped and draped with sterile technique. Sales Support Coordinator image demonstrates right percutaneous nephrostomy catheter(s) in place. A small amount of contrast was injected through the tube(s) demonstrating patency to the bladder and appropriate position of tube(s). The right system is nondilated. Sequentially, the catheter locking loop was released and the existing tube(s) were exchanged for right and Fr nephrostomy catheter(s) and the locking loop was formed. Contrast injected through the catheter(s) demonstrate adequate positioning with the pigtail loop positioned in the central renal pelvis. The loop is slightly larger than the renal pelvis, however, no mini resolve catheters were in stock and irregular resolve was maintained. The catheter(s) were secured with dressing. The catheter(s) was connected to a gravity drainage bag. IMPRESSION: Exchange of indwelling nephrostomy catheter(s) for new right 10 Fr nephrostomy catheter.Plan: Order 10 Amharic mini resolve catheter for next exchange. Schedule patient for AP 1 for moderate sedation on next exchange. Patient has difficulty lying prone and would like to attempt lateral decubitus positioning on hallux exchange.This document has been electronically signed by Alex Flores MD on 03/22/2021 10:20 AM Name Value Range Interpretation Code Description Data Belinda rce(s) Supporting Document(s) ID Date Data Source [id number] 03/21/2021 03:31:00 PM EST [facility] Name Value Range Interpretation Code Description Data Belinda rce(s) Supporting Document(s) SARS coronavirus 2 RdRp gene Test performed using the [employer] ID NOW COVID-19 assay. This test is only for use under the Food and Drug Administration's Emergency Use Authorization. Additional information is available on the [facility] websites for health care providers and patients. [place] This lab was ordered by [facility] and reported by [facility]. ID Date Data Source [id number] 03/21/2021 03:42:21 PM [facility] Name Value Range Interpretation Code Description Data Belinda rce(s) Supporting Document(s) SARS coronavirus 2 RdRp gene Negative [facility] Test performed using the E-Blink NOW C OVID-19 assay. This test is only for use under the Food and Drug Administration's Emergency Use Authorization. 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 [facility] Patient has symptoms related to [facility] When did you start to experience these symptoms [Date and time] [Phen X] [facility] Patient was hospitalized because of this condition [facility] patient was admitted to ICU for [facility] Patient resides in a congregate care setting [facility] status [facility] ID Date Data Source [id number] 03/29/2021 08:26:57 AM [facility] Name Value Range Interpretation Code Description Data Belinda rce(s) Supporting Document(s) SARS coronavirus 2 RdRp gene Negative A [facility] Patients first test for condition [facility] 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 [facility] Patient has symptoms related to condition [facility] When did you start to experience these symptoms [Date and time] [Phen X] [facility] Patient was hospitalized because of this condition [facility] patient was admitted to ICU for condition [facility] Patient resides in a congregate care setting [facility] status [facility] ID Date Data Source [id number] 03/15/2021 04:13:55 PM EST [facility] Name Value Range Interpretation Code Description Data Belinda rce(s) Supporting Document(s) Progress Note [facility] JPRRWp3gFxEAJbGb43/RNXodGCIwm9SpDLrdMXp6WThjTTCcB6ObDDM5bN8gMZK7PUkRYzZrWtKxLAX5 lbm [file] FsPbGjDaIwHHrlNG5eHKQTEu7+HMzwdQBxpXilKWREXuSxZBgmDKuwZTYHXu5B ID Date Data Source [id number] 03/15/2021 01:31:42 PM [facility] 29.1Serum levels of PSA should not be in terpreted as absolute evidence of the presence or absence of Cancer. Results obtained with different methods cannot be used interchangeably. This method is manufactured by [employer] and is an electrochemiluminesence immunoassay. Name Value Range Interpretation Code Description Data Belinda rce(s) Supporting Document(s) Leukocytes [#/volume] in Blood by Automated count 6.9 10*3/uL 4-10 [facility] Erythrocytes [#/volume] in Blood by Automated count 3.58 10*6/uL 4.6- 6.1 L [facility] Hemoglobin [Mass/volume] in Blood 9.7 g/dL 13.5-18 L [facility] Hematocrit [Volume Fraction] of Blood by Automated count 30.4 % 4 1-53 L [facility] Erythrocyte mean corpuscular volume [Entitic volume] by Auto mated count 84.8 fL 80-96 [facility] Erythrocyte mean corpuscular hemoglobin [Entitic mass] by Automated count 27.0 pg 27-33 [facility] Erythrocyte mean corpuscular hemoglobin concentration [Mass/volume] by Automated count 31.9 g/dL 32.0-36.0 [facility] E[facility]th[facility] distribution width [Ratio] by Automated count 20.1 % 11.5-14.5 H [facility] Platelets [#/volume] in Blood by Automated count 474 10*3/uL 150-400 H [facility] Differential cell count method - Blood [facility] Neutrophils/100 leukocytes in Blood by Automated count 76 % [facility] Lymphocytes/100 leukocytes in Blood by Automated count 15 % [facility] Monocytes/100 leukocytes in Blood by Automated count 8 % [facility] Eosinophils/100 leukocytes in Blood by Automated count 0 % [facility] Basophils/100 leukocytes in Blood by Automated count 1 % [facility] Neutrophils [#/volume] in Blood by Automated count 5.22 10*3/uL 1.8-7 .0 [facility] Lymphocytes [#/volume] in Blood by Automated count 1.06 10*3/uL 1.2-4 .0 L [facility] Monocytes [#/volume] in Blood by Automated count 0.56 10*3/uL 0-0.8 [facility] Eosinophils [#/volume] in Blood by Automated count 0.03 10*3/uL 0-0.5 [facility] Basophils [#/volume] in Blood by Automated count 0.05 10*3/uL 0-0.2 [facility] Nucleated erythrocytes/100 leukocytes [Ratio] in Blood by Automated count 0 /100{WBCs} 0-0 [facility] ID Date Data Source [id number] 03/15/2021 02:45:42 PM [facility] 29.1Serum levels of PSA should not be in terpreted as absolute evidence of the presence or absence of Cancer. Results obtained with different methods cannot be used interchangeably. This method is manufactured by [employer] and is an electrochemiluminesence immunoassay. Name Value Range Interpretation Code Description Data Belinda rce(s) Supporting Document(s) Albumin [Mass/volume] in Serum or Plasma by Bromocresol green (BCG) dye binding method 3.4 g/dL 3.5-5.2 L [facility] Bilirubin.total [Mass/volume] in Serum or Plasma 0.2 mg/dL <1.2 [facility] Calcium [Mass/volume] in Serum or Plasma 9.4 mg/dL 8.6-10.0 [facility] Chloride [Moles/volume] in Serum or Plasma 92 mmol/L 98-107 L [facility] Creatinine [Mass/volume] in Serum or Plasma 0.51 mg/dL 0.70-1.20 L [facility] Glucose [Mass/volume] in Serum or Plasma 111 mg/dL 70-140 [facility] Alkaline phosphatase [Enzymatic activity/volume] in Serum or Plasma 233 U/L 40-129 H [facility] Potassium [Moles/volume] in Serum or Plasma 3.5 mmol/L 3.4-5.1 [facility] Protein [Mass/volume] in Serum or Plasma 6.4 g/dL 6.4-8.3 [facility] Sodium [Moles/volume] in Serum or Plasma 134 mmol/L 136-145 L [facility] Aspartate aminotransferase [Enzymatic activity/volume] in Serum or Plasma 26 U/L <40 [facility] Urea nitrogen [Mass/volume] in Serum or Plasma 5 mg/dL 8-23 L [facility] Osmolality of Serum or Plasma by calculation 276 mosm/kg 275-300 [facility] Creatinine/Urea nitrogen [Mass Ratio] in Serum or Plasma 10 [facility] Bicarbonate [Moles/volume] in Serum 24 mmol/L 22-29 [facility] Alanine aminotransferase [Enzymatic activity/volume] in Seru m or Plasma 6 U/L <41 [facility] Anion gap 3 in Serum or Plasma 18 mmol/L 8-15 H [facility] Glomerular filtration rate/1.73 sq M pre dicted among non-blacks [Volume Rate/Area] in Serum or Plasma by Creatinine-based formula (MDRD) >6 0 [facility] Glomerular filtration rate/1.73 sq M pre dicted among blacks [Volume Rate/Area] in Serum or Plasma by Creatinine-based formula (MDRD) >60 [facility] ID Date Data Source [id number] 03/15/2021 02:47:22 PM [facility] 29.1Serum levels of PSA should not be in terpreted as absolute evidence of the presence or absence of Cancer. Results obtained with different methods cannot be used interchangeably. This method is manufactured by [employer] and is an electrochemiluminesence immunoassay. Name Value Range Interpretation Code Description Data Belinda rce(s) Supporting Document(s) Prostate Specific Ag Free [Mass/volume] in Serum or Plasma 4.8 ng/mL [facility] Not Applicable ID Date Data Source [id number] 03/08/2021 03:19:59 PM [facility] Name Value Range Interpretation Code Description Data Belinda rce(s) Supporting Document(s) Progress Note [facility] VDLCFw9yBxKZYlKw73/LYAnoADRov2UwVWgjMYd1CYewYJRlO7VtCOO6mT8zQGO3BPxXPaAbIwXwYRQ1 [facility] [file] AZKLy7A+AoRA4NK0jUDlfaes2pgppjbReuncebjv+f +2m/odGeV7MPKoArme+vBIjJ2Ft+Rs2tfSq2eK27c8+rzxyeUEjXGyFvjLml1SH1YE0MYogyCTTAafRP iazvrHsrtw6qCPDe/iFXHXxKkLDDiDdHIQH2h/NG3U6EoDaMekk0LgjZCZ0BUFTaFculbFQkBbGnqoDj E94FzUAkjcTSblhH+Y9Gy+O3qmsLbMlEgalFInwAuI wtt4HugaD0/uZVWsWCYrw11zWUbWoZchd+rJFY1yVPkapZRauhNK0jYMxaMjs2esZEUuQd05HfslXHHg epRjR8eXmWKxNI/aoJa09tSeUQtK+jpXD7EzEIllTXaT3eyRJt2lIC38GAjZUvp1YZEclavv35PzD5/V yflTkqkxkl+VV54cMRGLPBdZSYXI3JDeViV9nPav75 uetfl2KbqzCO+ayQ33mj7YjgslmPysVyjzPlldC1X0mJIfZLzbnBiQKcBZuESb8xhvKoS7Y8Nk+wdRiI DJ9NVE5vOCr0RiLpEjzIIveDnzAzLEHanBVnQiX1BxxgoR/kJ97qoeKlQNoWMZdklxTG8zmDGM811fSb KhF9mfqANOGKKzJiQCeSXY6bkijQkEUis4huUQOYEZ ewMqUiYLvW+CadN2XFn98mARha6QPQWNRZrBAU7sJV93Q6psaEwSwzQfyX2tg7AFKIm7hHgXNGnNyF0h 53obNwEGnWvcMNtBWsoaR1oO8LjnSIVhbtcKE+kfN0kDvhfk7GcaZYuF5x/dufFQmYIccC3ljPlXXk8I ftVCt70cvKET0cHYpyj7hNDZjQPiXQz4YVB58aqyyz 1s7CKwZkZYGvZO8lcOsJxF4VguAKcopZhG7ANsuwBniSKjHMPY1PSYrmNwchlflbZWusnEYjaOzmL+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 [file] 6Dj+ePPAOe0uA6bqYU3sDiLFYpoDkDGzjL76/Mejía+GzPVZ3nOTXoV5fNzjHTSE+dtbY1mfUCQtOoULIx9 u5tpPWoK8ieVQX3kSEAOYeWAtLYYm8NBs1ygmnFQ31n5NnlrMTVZD4YhajOGV+xtwMqIbBMtuZiumm8X Z1F55ehbvgVTlyilKFWQITX4v3ncQtcrjw8imkqcMQ [file] [facility] ID Date Data Source [id number] 02/18/2021 09:22:33 AM EDT [facility] Name Value Range Interpretation Code Description Data Belinda rce(s) Supporting Document(s) Progress Note [facility] QIRNIi3jDaNYXpBo24/KPUbnHZNhf8TmSHiaRQc6KYocCDUxR3WiWAW0tE8pLGS8DIwGGvVtUfMxGPVz lbm [file] MHfseAKprOmmMHXRNrY6Ase6KYjqJYMTNm6T ID Date Data Source [id number] 02/16/2021 01:10:00 PM EDT [facility] Name Value Range Interpretation Code Description Data Belinda rce(s) Supporting Document(s) SARS coronavirus 2 RNA [Presence] in Res piratory specimen by [facility] with probe detection NEGATIVE [facility] This lab was ordered by [facility] a nd reported by . ID Date Data Source [id number] 02/11/2021 02:49:37 PM EDT [facility] Name Value Range Interpretation Code Description Data Belinda rce(s) Supporting Document(s) Progress Note [facility] CPUGQy5aUpEORpYv81/AJHobFHJco8HsERlyJEl1XYajZJUmV3ItLDS8oI0lWAD4AEpVIdAmNiBtAKW0 lbm [file] ICAgICAgICAgICAgICAgICAgICAgICAgICAgICAgICAgICAgICAgICAgICAgICAgICAgICAgICAgICAg ICAgICAgICAgICAgICAgICAgICAgICAgICAgICAgIC ANCiAgICAgICAgICAgICAgICAgICAgICAgICAgICAgICAgICAgICAgICAgICAgICAgICAgICAgICAgIC AgICAgICAgICAgICAgICAgICAgICAgICAgICAgICAgICAgICAgICAgICANCiAgICAgICAgICAgICAgIC AgICAgICAgICAgICAgICAgICAgICAgICAgICAgICAg ICAgICAgICAgICAgICAgICAgICAgICAgICAgICAgICAgICAgICAgICAgICAgICAgICAgICANCiAgICAg ICAgICAgICAgICAgICAgICAgICAgICAgICAgICAgICAgICAgICAgICAgICAgICAgICAgICAgICAgICAg ICAgICAgICAgICAgICAgICAgICAgICAgICAgICAgIC AgICANCiAgICAgICAgICAgICAgICAgICAgICAgICAgICAgICAgICAgICAgICAgICAgICAgICAgICAgIC AgICAgICAgICAgICAgICAgICAgICAgICAgICAgICAgICAgICAgICAgICAgICANCiAgICAgICAgICAgIC AgICAgICAgICAgICAgICAgICAgICAgICAgICAgICAg ICAgICAgICAgICAgICAgICAgICAgICAgICAgICAgICAgICAgICAgICAgICAgICAgICAgICAgICANCiAg ICAgICAgICAgICAgICAgICAgICAgICAgICAgICAgICAgICAgICAgICAgICAgICAgICAgICAgICAgICAg ICAgICAgICAgICAgICAgICAgICAgICAgICAgICAgIC AgICAgICANCiAgICAgICAgICAgICAgICAgICAgICAgICAgICAgICAgICAgICAgICAgICAgICAgICAgIC AgICAgICAgICAgICAgICAgICAgICAgICAgICAgICAgICAgICAgICAgICAgICAgICANCiAgICAgICAgIC AgICAgICAgICAgICAgICAgICAgICAgICAgICAgICAg ICAgICAgICAgICAgICAgICAgICAgICAgICAgICAgICAgICAgICAgICAgICAgICAgICAgICAgICAgICAN CiAgICAgICAgICAgICAgICAgICAgICAgICAgICAgICAgICAgICAgICAgICAgICAgICAgICAgICAgICAg ICAgICAgICAgICAgICAgICAgICAgICAgICAgICAgIC AgICAgICAgICANCjw/yFRzA3nnvFDptjC7T9xxZe5NMu5QVC9hk0IiWUFyMRwjcePzBtqRXmElGJIeGj oBYmg8EJwpWK9XjPDgK3RwJ2CxPIdyXK7NREKiRCEtqXWsCVNqVSHsVnN3WDVwOMqiEQ6EeJHiDNgyUZ XzWBSkNF6ETBZiN407rmAfII8UBe6IBdIqNA9zds2S VPzuFJTcVsxXZzg5UAwbZS6SrWXskSOuQXNyBFRJPoIoR4hop6JxCuAvWUSOKZbvBE3Xl7CujLPhYTq+ Km4XLR2qt0NaYCijWZYvWN4vhd5FJKkFOlSuL0SuqEmsOXMox7usHUCmPE1reMFuYAE0ARRdwQOXWQ4o EP9myrcoFZHlQRQePSDjBJ4vQNFtQGIfXjUpUAFMHZ 5TYFIbROSznZKzZUHcDLZZAQ8ATDcsITL6QSVgbwCuiQUgUCfjJW6UMBLsubFfBPqbFAEVRNy+Pg0KZW 2gv5TwSPvvIILySD1cpt1SFOzEHxQnN6M0xGArI7X0TWvlCo3UALQkCXCsWXskDNCWYSbhVR3ZUL0njk R9AY6SoNGaTFVnPXVbxKWtYMv0S20biXUaCQldXT3I ICA+Immanuel+Oy4ZUWVxZJYyUHWrAdWqRHUNEqRuJ6IaA3LYs9StT1FjFG19rKctszCuBHwjAU5QRE9kPFVp MJQTHI2GqLLouG1wcoOiUYYpIMDUWqRrY26kuRSmSDHcYKB6VRElAb7QPHNhY8XeetGmhVgpzpXyXPWh BEDSFS2LIJqwhzHtpBTjdFzcTX04fLuyPW5LOt7EPg YpKM2scy2LpWNrAz8EKXJuGg7SSDNfQOLgUSJfQKP9OKZnXjXePHznINWrRPDaDKF3WGCgXSLvJL7DMo FcVOUdZBu0JnPeDJAdMBDraa7SXLAbGWKdCHM9VGIjCHNzGRSrLWmrTSBjGDCpCRV6RSVzLAIcAI7AQm LtAOIaWDWoTQzmQQQoZVXroo3VTBGdVRYcGcNtMuBs RMQvVXCwYJecOHFkZVYeKKcvFBMqOGKfHP1DUrEgIZXfOMO9SwnmTKQlBWBunf7KNEAnXMMwJev9YkAr BSDoAEDyHMhtEUOoYGU7KWB1SNTeKHAvMD3ICzJvCHTyOJYrYZcxWAMcQCMvyj6NKITnSFZxFZF1IMAl BQTjKCZqWSuhKLNxVIJ6QgF0OCFxCVOeDX9YCxZvMH UgZZR8FTyhBYNaXMXoto1QHEAvPHAfZpB8POGdUCZaMIVaCBfmCSSyNIU9UEB2QCXqNNLmEP8JXmByZO YnIWv1WOFzQJFbKFLdoz2IRWYlMZDzCyl3QSNoBNYlAFEdMZvaULUwCMO7ZcfeUYKjKORnNG6ODoEgYW UaDBi4TkQmTDTuHPGzfh8XGAEzXCMeHNWpDQWsSTGu EPOmKWf0tpMbuBFvXJi3JI9II6EuadMhUxILIu7Ag666ERQxXAHeYh8YN4reHe5wVNHtVUBTKv9IGXc1 VfNiHZSgFHMlVwDdGKEoWwvxIPHeCMB4KUQ7E5ZjFjU+IEi8BiUuD3IuNfWjHTP4ByOfKFUvWiXoBOvb TAQdKuScYi8uCFLPKl7+PSxksDRlaNmfBLYTKgO7VFX9BZrvNBWTLz1U ID Date Data Source [id number] 02/08/2021 05:05:32 PM EDT [facility] Name Value Range Interpretation Code Description Data Belinda rce(s) Supporting Document(s) Progress Note [facility] BXRQSb7aFqYEYiLn12/CYEohDCUsf6WeLEmlEXm7EBaaMNDvX7KlIPG3xG2vMSS9WZmIXcJwMiRjRPRo lbm [file] XSANCj4+GSbsbBXcxUnlQXHJOnK5EZx9ICxuHMHEEc5R ID Date Data Source [id number] 02/04/2021 02:19:00 PM EDT [facility] Name Value Range Interpretation Code Description Data Belinda rce(s) Supporting Document(s) SARS coronavirus 2 RNA [Presence] in Res piratory specimen by [facility] with probe detection NEGATIVE [facility] This lab was ordered by [facility] a nd reported by . ID Date Data Source [id number] 02/01/2021 05:07:16 PM EDT [facility] 9.5Serum levels of PSA should not be int erpreted as absolute evidence of the presence or absence of Cancer. Results obtained with different methods cannot be used interchangeably. This method is manufactured by [employer] and is an electrochemiluminesence immunoassay. Name Value Range Interpretation Code Description Data Belinda rce(s) Supporting Document(s) Leukocytes [#/volume] in Blood by Automated count 5.2 10*3/uL 4-10 [facility] Erythrocytes [#/volume] in Blood by Automated count 3.13 10*6/uL 4.6- 6.1 L [facility] Hemoglobin [Mass/volume] in Blood 9.0 g/dL 13.5-18 L [facility] Hematocrit [Volume Fraction] of Blood by Automated count 27.0 % 4 1-53 L [facility] Erythrocyte mean corpuscular volume [Entitic volume] by Auto mated count 86.2 fL 80-96 [facility] Erythrocyte mean corpuscular hemoglobin [Entitic mass] by Automated count 28.8 pg 27-33 [facility] Erythrocyte mean corpuscular hemoglobin concentration [Mass/volume] by Automated count 33.4 g/dL 32.0-36.0 [facility] Erythrocyte distribution width [Ratio] by Automated count 18.1 % 11.5-14.5 H [facility] Platelets [#/volume] in Blood by Automated count 341 10*3/uL 150-400 [facility] Differential cell count method - Blood [facility] Neutrophils/100 leukocytes in Blood by Automated count 73 % [facility] Lymphocytes/100 leukocytes in Blood by Automated count 15 % [facility] Monocytes/100 leukocytes in Blood by Automated count 10 % [facility] Eosinophils/100 leukocytes in Blood by Automated count 1 % [facility] Basophils/100 leukocytes in Blood by Automated count 1 % [facility] Neutrophils [#/volume] in Blood by Automated count 3.84 10*3/uL 1.8-7 .0 [facility] Lymphocytes [#/volume] in Blood by Automated count 0.76 10*3/uL 1.2-4 .0 L [facility] Monocytes [#/volume] in Blood by Automated count 0.52 10*3/uL 0-0.8 [facility] Eosinophils [#/volume] in Blood by Automated count 0.03 10*3/uL 0-0.5 [facility] Basophils [#/volume] in Blood by Automated count 0.03 10*3/uL 0-0.2 [facility] Nucleated erythrocytes/100 leukocytes [Ratio] in Blood by Automated count 0 /100{WBCs} 0-0 [facility] ID Date Data Source [id number] 02/01/2021 05:56:[address] [facility] 9.5Serum levels of PSA should not be int erpreted as absolute evidence of the presence or absence of Cancer. Results obtained with different methods cannot be used interchangeably. This method is manufactured by [employer] and is an electrochemiluminesence immunoassay. Name Value Range Interpretation Code Description Data Belinda rce(s) Supporting Document(s) Prostate Specific Ag Free [Mass/volume] in Serum or Plasma 1.5 ng/mL [facility] 15.2 ID Date Data Source [id number] 02/01/2021 06:14:[address] [facility] 9.5Serum levels of PSA should not be int erpreted as absolute evidence of the presence or absence of Cancer. Results obtained with different methods cannot be used interchangeably. This method is manufactured by [employer] and is an electrochemiluminesence immunoassay. Name Value Range Interpretation Code Description Data Belinda rce(s) Supporting Document(s) Albumin [Mass/volume] in Serum or Plasma by Bromocresol green (BCG) dye binding method 4.0 g/dL 3.5-5.2 [facility] Bilirubin.total [Mass/volume] in Serum or Plasma 0.3 mg/dL <1.2 [facility] Calcium [Mass/volume] in Serum or Plasma 13.3 mg/dL 8.6-10.[address] [facility] Results called to and read back by ON C ALL DR GEE AT [id number] /[id number] Chloride [Moles/volume] in Serum or Plasma 89 mmol/L 98-107 L [facility] Creatinine [Mass/volume] in Serum or Plasma 0.90 mg/dL 0.70-1.20 [facility] Glucose [Mass/volume] in Serum or Plasma 112 mg/dL 70-140 [facility] Alkaline phosphatase [Enzymatic activity/volume] in Serum or Plasma 156 U/L 40-129 H [facility] Potassium [Moles/volume] in Serum or Plasma 3.3 mmol/L 3.4-5.1 L [facility] Protein [Mass/volume] in Serum or Plasma 7.4 g/dL 6.4-8.3 [facility] Sodium [Moles/volume] in Serum or Plasma 131 mmol/L 136-145 L [facility] Aspartate aminotransferase [Enzymatic activity/volume] in Serum or Plasma 30 U/L <40 [facility] Urea nitrogen [Mass/volume] in Serum or Plasma 10 mg/dL 8-23 [facility] Osmolality of Serum or Plasma by calculation 272 mosm/kg 275-300 L [facility] Creatinine/Urea nitrogen [Mass Ratio] in Serum or Plasma 11 [facility] Bicarbonate [Moles/volume] in Serum 27 mmol/L 22-29 [facility] Alanine aminotransferase [Enzymatic activity/volume] in Seru m or Plasma 11 U/L <41 [facility] Anion gap 3 in Serum or Plasma 15 mmol/L 8-15 [facility] Glomerular filtration rate/1.73 sq M pre dicted among non-blacks [Volume Rate/Area] in Serum or Plasma by Creatinine-based formula (MDRD) >6 0 [facility] Glomerular filtration rate/1.73 sq M pre dicted among blacks [Volume Rate/Area] in Serum or Plasma by Creatinine-based formula (MDRD) >60 [facility] ID Date Data Source [id number] 01/25/2021 11:43:33 AM EDT [facility] Name Value Range Interpretation Code Description Data Belinda rce(s) Supporting Document(s) Progress Note [facility] CYEDGr3yAqSPAxNd29/XURvcWNNrk3XxYVuyLCf4DUbsNSFbA2WiGZB3rV4xTMU5SEnCMwLzKaNyVQA6 [facility] [file] CHIEF CLINICAL DIETITIAN/3QCbxvdAVUseWTPOOLo3qNXZnItWU+wAbroJO5S [file] [facility]/[id number]Lfnie4kOddXPasAfWzYi+dgTqz4SogFTj8va5jikqX [file] DlOoEmDxSWonPWHLKu8X ID Date Data Source [id number] 01/25/2021 11:43:28 AM EDT [facility] Name Value Range Interpretation Code Description Data Belinda rce(s) Supporting Document(s) Progress Note [facility] RNLIOz7fAoLORdFy55/EERmbVFXwc6HzXYglOGq8MPudCIZeW0CdLGG0lG4bLPL0VStBKqOzIqSfCOK3 lbm [file] dGE+DQogICAgICAgICAgICAgICAgICAgICAgICAgICAgICAgICAgICAgICAgICAgICAgICAgICAgICAg ICAgICAgICAgICAgICAgICAgICAgICAgICAgICAgIC AgICAgICAgICAgICAgDQogICAgICAgICAgICAgICAgICAgICAgICAgICAgICAgICAgICAgICAgICAgIC AgICAgICAgICAgICAgICAgICAgICAgICAgICAgICAgICAgICAgICAgICAgICAgICAgICAgICAgDQogIC AgICAgICAgICAgICAgICAgICAgICAgICAgICAgICAg ICAgICAgICAgICAgICAgICAgICAgICAgICAgICAgICAgICAgICAgICAgICAgICAgICAgICAgICAgICAg ICAgICAgDQogICAgICAgICAgICAgICAgICAgICAgICAgICAgICAgICAgICAgICAgICAgICAgICAgICAg ICAgICAgICAgICAgICAgICAgICAgICAgICAgICAgIC AgICAgICAgICAgICAgICAgDQogICAgICAgICAgICAgICAgICAgICAgICAgICAgICAgICAgICAgICAgIC AgICAgICAgICAgICAgICAgICAgICAgICAgICAgICAgICAgICAgICAgICAgICAgICAgICAgICAgICAgDQ ogICAgICAgICAgICAgICAgICAgICAgICAgICAgICAg ICAgICAgICAgICAgICAgICAgICAgICAgICAgICAgICAgICAgICAgICAgICAgICAgICAgICAgICAgICAg ICAgICAgICAgDQogICAgICAgICAgICAgICAgICAgICAgICAgICAgICAgICAgICAgICAgICAgICAgICAg ICAgICAgICAgICAgICAgICAgICAgICAgICAgICAgIC AgICAgICAgICAgICAgICAgICAgDQogICAgICAgICAgICAgICAgICAgICAgICAgICAgICAgICAgICAgIC AgICAgICAgICAgICAgICAgICAgICAgICAgICAgICAgICAgICAgICAgICAgICAgICAgICAgICAgICAgIC AgDQogICAgICAgICAgICAgICAgICAgICAgICAgICAg ICAgICAgICAgICAgICAgICAgICAgICAgICAgICAgICAgICAgICAgICAgICAgICAgICAgICAgICAgICAg ICAgICAgICAgICAgDQogICAgICAgICAgICAgICAgICAgICAgICAgICAgICAgICAgICAgICAgICAgICAg ICAgICAgICAgICAgICAgICAgICAgICAgICAgICAgIC UdEPCcMRXsNQTbTXMwMDAeVPUeJCRhGYs2R3vkWYScPCKkHZ5zZGc3Py9+GOxNQwRcOOZ8vnQepD3OQB 3bl7MvTAkcDZYnm2ZvEYv0FK8XBOSqALwrEC7UPPgvhp9BTJEjNYNchZBNd6wbWsAaOTN4GFIzEwcvFJ 8EGEYrC1tclaFtFZBoUGQFPGxzQQGOEDCfUZRiIkTf OhPaMOFdCMJpOZAPGOT2SRYfHkAbXCNaZBFlMgNyWSDCFI9NJnYdP9LcpK83LSrHDv1+DQplbmRvYmoN NzBjKPApy1OgWHy2UH3ACVIpBffza4JaHSDpFKVSAQazWG4JFQE0YTDiBERxMs2SVSAyL793knXdTV9T Ug4IXrToLV6lpd1SKYYrEWDnDnvSTpc7CAhtXR1WhR HoDPyRcy1kqrAgnyDWh7QfddTroLYEZE8yINJOMMkuqZXvRADlXQ5ONIT0NNwoNJKnUxGuXBBjWRicKI NSLKoROaMzC9Smr0IgYdS4VNAgIePmNPucTWRaDKprEH13aGzdGV6JRCZbCMAyBC92QZPkCAXcKb2WVj 4XJoNtNG0dbc6FEdEuEP7xpr7CPWlGFbFaX4S7aPVc K6Qlkx54DH9CrHC1mVOzFJ8RzX8dHO9Rc0OcUMZbPfHaTDJuQAXfYDSiTWHtJyJmIP6FSMLrFuXmeFGa UCFjQDM0FODeVmN1FTUyQE8IHQNnALI3SO3SID9GEtrkG2UCVZoctYcyXaOWKJD/QUNUSVZJVFkmTVJf M15VH9DYHEiAPdnzXHbBRhoyJt8rTVq+On2LIF2on1 AhKLt4GfVwCD1njr4NVKnNEfUuJ6L3qYVoY4Q4VLneNd9IDVItLCTzKweaIWTTLVzfBL9WIF3bggD1UI 3AgZVkONVrNWDurWYuDCb0D54ukLJqVDsjKE3MZQK+Immanuel+Ln9XURVoLQZyDZMcXtEgPLWDHkStL2EzX3 HZo0EiD3GkXB85mWfetkSfSYonHF4FPP9zNOPdCZBC BM4SoRDtcW1ndzO3RZYqHFLMWlMxC80qnQWqHJTuZNH9ALRdIr6FBIUcG1ItlfCmmZcvnaSnMVCuPIMR PT0EJDopmlUymKItrPbdSQ83zTzzDZ1QGj7DNoUrBC4czw6QnXAuAz7FCKW6Op0AGAJxQAVbAZZqNDW9 MUEpAoGrBWmgYODaZEQcBPT9QWNfLICdOE7PUiTzLD ItIBQ9IrMkXSSmBMOfnu0FGFDkRQO2MmP4AwUnSALfKJCwZDstGWVnPPTwYBX7ZGRjKDJxCO2RSkTcBQ DwHXI0BTMrAOFdCBKlbm8ZGRUzQRR8WlL1LINtPMZwDOQeKZmaJSSxECY1WXA8HUBrOTTfII8XSqCfIE BjTTfdQSJyMOEcDDGbud8KKBDnTTQfCMD0JsFgFASq JDLiJGlvMOEeXOPwQUB4QMWmEGKgLO1HBmTvWTDdBRAmKyFaAUNsNNVufv9DYQLjIZFcIVB6PDPtUSAe WTDrVVflNXLnHSS6ObwiTZGnWLYnXN5NRdWgCJKtZQg7PCIwHITeJKAysb2SWKAtDDAhGHIqTdZgUKCa XEWwGFdmKYPfFRWjMXDxNLGzOAIwOD0FIuFvFIMvMx V8FRnbDZRrPYIdvb6GTSOhYHRtJICfJgOoHWWbSFXgDVdzLTAhTJK9NfHgKMIwKIPjRN4ZPeCxRTWzTw i5QFfjAGUzKUPdfm7GYTFcYLMmFos9EMRdMFXrFOIgEOegDEDcHRE6NgG9PVCfPIJvET9ETmWrQNLhJf p9XPYjBXTxCJOyxo9KTZHySDXjMZD2ARFaPUVcRIIg IKpaGINhFNTdPAW8BPAhFFNlZU5HNoLzRPTyOmHbYGHjNCFmEIRjsv6VNYOxTRDcDWU5HGZbKJUwLUMc LNypIRRnUOWuQTn9PEJoAAJuEV1OQdBoOCWpVKJpWWifIPEkUYGsyn3DWBRtSUS8YiWuYHZnDLWgSVZx URmeQRXuDLJmQrP0AAJcDZRjZH9ILnBpGURgYOD8VQ JxJUSfPPNuai3JJMBfNXR9Eht8NZCdGIKtEGZiKMbtUFIdJQZuWSS2CCOdYOPyVK9WCbBuAZWtEGCpYJ VtGYHbBQUvwm0EOHWaCTU5APW6HCQfIKNjMCOoQIxyVMJeCFY2ZfE5LIZmGKCmNK0GIwUnESIqMXZ1TT XxHUQbBQOnxx0SGIUaQMG0HBf2MnDwHAUyMWXwMKrq AQXwJHS5PpC6QQVsRJDiCW0DFoVfIJUbMWv6ABXkMONlJDJdka3QWIMkXVG4SvasPgFnZLThGENeSLm8 ivKxzVXnQEd1YU4ZI8OfbpXdMDKBJm2Ch489DXDdMCBeXd7AX8jrJb0nWYJeUHLUQr5ATXf4MUOwNXFx OeXoTNp2YES9S9UvXvHnNCAjPKJ6JIU2FlF+IDxlMm AwWLUgSrT3NMg0XmfxRMVvCZGoVmMpPBL7ZKx4FR8pTLAIBc5+GXwtmGEkrQbgZOKNPpM9RXsnKFqxOG VPRg0K ID Date Data Source [id number] 01/20/2021 07:50:37 AM EDT [facility] Name Value Range Interpretation Code Description Data Belinda rce(s) Supporting Document(s) Progress Note [facility] ALXJVy1hYnVTSxWn95/LHBhkOZCan2CwJFzsAGo1LNwdFIGfC8OuXVC9iS7gAFJ3DUrRAxZpPjZpUUJh lbm PvZqmLNvCtFNMqBweILzDlZCwaBpfvbTRfFI3PsFC5HUHwZ19mOUExYEItF3YyODS6VzM+Qr6AWRYooN NrDP8FFxqF7Mhtf8zDFd2skA/RVDFV1sHA1+PSSRMqpCfaxZA7bP6rf7S8Vv3IRcuS5UQ5DzEbF0/h8S zTh70bdyuPHF2h+t9l2dPlexzr//6MKJiTFAB4N/3W U5yM5+VFofXCTDJdcz8dLwO7VBl+4atQSH8W+/pMl7tc5NgNAlJutfaKq7wyAuHBSRlCMmpso/jzIpzN QtCwnVUHcqV1T/vCj2qFAGmQDt7t//CROs4WXredr81OCPIxYqV+OI1IVwBvAQsM2PmmGKapx1C18laY OoWXa24HI1n2ITreXgKKcjcV5eFde6mOKEV8rCjlGu UKIoafsatO61GFQHCWoI+Xh3woK3fhR2aQNgYwXo4flgC3rxpxwj3R6qsIEC4ONs2FJBxUdgS0Gox8Ss 3Mf3GaUpdWQb0q3BTKblgdA6AtV9qUKy4Aq5HNj4pUDJGBl+KGn3yU9V4eJU7XH1suhM6Mg/U5pelr60 /dawOfpTEPTJXlBQyX44HnKmGlmGpS7kwN1HRgAsCm yJlv9wWdHj1gunUAWoHGJXAK3dbkD2C/[place]+SknnEQ8dvPTBZRPQqiPUwCHgj+WgECWZgsGkoFyvpEII [file] ID Date Data Source [id number] 01/17/2021 05:06:14 PM EDT [facility] Name Value Range Interpretation Code Description Data Belinda rce(s) Supporting Document(s) Discharge Summary [facility] BYXGVy8rUoYZYdEc16/AUMbfZJCzd8XfMHajTCr2XJglBGMeW3InVRS0eU1mNNG9TQkJWiTeLqCcSGUi lbm [file] 7hU+K07q8xKsCE5jeK7IudCb8Kmnn18ihVx3ycd/TCLs/iA4rpmgTKr3YDXi4Iu/5wGDP/J++ShQzT 70z4JI3SMLkcib5gARy21A2WQpwz0P28mkGIdijVniWxT7WwQoCLEvVenvbhNLr21vpeBIQEfqoAsycB 3fV9GVJW7HyttGZqAjIczaF7/r2qgXY0iJn3Pe9847 x7bAt+ihx3BSOoxjpmKG3bXPOcwazYof21RzOfowlouzSllSURcO5cddrL9b7oNn4fPPIealxHZWfCfJ wCM3AjllXqVcbiXwZUWrfRtBVVjZoOPS0UyAcw5OaiQhKXrvBt+TRbln9+/tog6RxS15lGZsWHVdmiZN H2V2ta5+eoyOAg5JNexaSkHkdJ1e7mqCiUYYx0+maria guadalupe [file] ICAgICAgICAgICAgICAgICAgICAgICAgICAgICAgIC AgICAgICAgICAgICAgICAgICAgICAgICAgICAgICAgICAgICAgDQogICAgICAgICAgICAgICAgICAgIC AgICAgICAgICAgICAgICAgICAgICAgICAgICAgICAgICAgICAgICAgICAgICAgICAgICAgICAgICAgIC AgICAgICAgICAgICAgICAgICAgDQogICAgICAgICAg ICAgICAgICAgICAgICAgICAgICAgICAgICAgICAgICAgICAgICAgICAgICAgICAgICAgICAgICAgICAg ICAgICAgICAgICAgICAgICAgICAgICAgICAgICAgDQogICAgICAgICAgICAgICAgICAgICAgICAgICAg ICAgICAgICAgICAgICAgICAgICAgICAgICAgICAgIC AgICAgICAgICAgICAgICAgICAgICAgICAgICAgICAgICAgICAgICAgDQogICAgICAgICAgICAgICAgIC AgICAgICAgICAgICAgICAgICAgICAgICAgICAgICAgICAgICAgICAgICAgICAgICAgICAgICAgICAgIC AgICAgICAgICAgICAgICAgICAgICAgDQogICAgICAg ICAgICAgICAgICAgICAgICAgICAgICAgICAgICAgICAgICAgICAgICAgICAgICAgICAgICAgICAgICAg ICAgICAgICAgICAgICAgICAgICAgICAgICAgICAgICAgDQogICAgICAgICAgICAgICAgICAgICAgICAg ICAgICAgICAgICAgICAgICAgICAgICAgICAgICAgIC AgICAgICAgICAgICAgICAgICAgICAgICAgICAgICAgICAgICAgICAgICAgDQogICAgICAgICAgICAgIC AgICAgICAgICAgICAgICAgICAgICAgICAgICAgICAgICAgICAgICAgICAgICAgICAgICAgICAgICAgIC AgICAgICAgICAgICAgICAgICAgICAgICAgDQogICAg ICAgICAgICAgICAgICAgICAgICAgICAgICAgICAgICAgICAgICAgICAgICAgICAgICAgICAgICAgICAg ICAgICAgICAgICAgICAgICAgICAgICAgICAgICAgICAgICAgDQogICAgICAgICAgICAgICAgICAgICAg ICAgICAgICAgICAgICAgICAgICAgICAgICAgICAgIC PuYNPzAQRkXFFkMKSlNXOhTYGcVSYuQSDlEQHdJROwBOKkDWTwHESfEFTdGPSxNZd4N5viWHKrCDIeHY 0rITd4Rq3+LSqYYdXqRXL6svQumR5DCS5xg8AxBYdrHUGcr4PqBNh4LH8JJWHgURnhVU6LGApdvh0REY VdLTGneJLQp6jnCxZnWPY2FXUeWmcdYG3CPUUfU0yv rnAsSEQgVFKGTNkuFSIIXMheMAVCOFAgLZHoTmHnNjBxXWGxRLHpKBGEQXC8ZSQbWyHwEGPpPPHnNN0I GQDbW101uzPhXK1VJc9HOdOhFL0cfq0ZPswkESFjZrxULuc7RPzqGJ8EvMQauQR2OIEqJITJWaPaE9zt d9NqMWBwXJHEDIpkNK8Cr7XsoZBtGUw+Go3QDQ9gs1 CnINn3LMYtAS6fur5NVDcLEpDoI8IjkUxmXURlc5SpUBUoMKMJeJ5lMMC3KRX6QVJouWLiOUGheSxoLD STDIMexMA7SnMfMvQkQiJnYOR2XeJzUV0jWKydVP3FCUG0IYemAYHiQVReR1mNBbWkHER5DqDwwWkvVI 3RSePbR1GineOptJTpMFVsRAUSXz4+DQplbmRvYmoN YxRgCYBja3FtYRk2TD0RHXHfNOjlWG3XCPObwH1nRWqyFL0BBpKdEgOlSCBOSuKdB42hfAYpBGy0S4Wm YmVkZGVkRmlsZXMgPDwvTmFtZXMgWyBdDQogID4+ID4+UZwiED6HTLyrriLaZDDvBd8BGITmTREkIP7k QHPjOFWeK2U4fDoqUFKKFxLrB6qilmhaPP7tXPUpX9 59uRkikpOwADY8MSZtZa6RZBQyXSD5PXZrtMZjOpicHNRSEGqbRW3AmDUqVFR0fG2cPIuaWNHeVRHxL0 yZItYcfNdhQA25xPgsypLkdXBmMAq+Is8FIU1uc3XeENq4pbEbPSfmRDHtXDmqJVDkPXMzDFYnNTL1IH V5FJDITrRuKLMeMVGcEXmfEQDcOPFrkq0SYMHlOMX6 ZFnjJRKjUFRzFOBfJWrwBUZuBSNpLfSrHYDjASJuMD3ROdLyCHTbEMGnQIkgNRBlPFKyty3DXZHbRWXp VUB0OhGkFTXdZUSwTYcgPPJpFID4PWksTTMlTMRgVY7TKvDxYAUcZHr4OUAuEPGzAQMqbq3SJTRfNQCn EFz4IpEpVHTcUVQfKYnqXTMsEHJ4AlB5TVAkQDQwOK 5LDkCxBGGiEAH0TvqfTGUqQLPrqt5AYLZtFYOdApu3IcQnRNVxJSDiSRozGKSyQOA0EFz9WRFfCEUnWF 9ZItXoVJJwYsEgWDTbYSFiDISplf2MRXNbBXXlVwRhYKQbVESnBQXdTWfpFXKrTOT1MZXhVEPaPTYlBV 3ZXsItBQNkBfHfTWmlZMVeIXXgkr7VCHVoEAYfYPE5 COEpWTAyAKLoILtfDHDdWNW1JEy3WLYqCRUtFU1PFkJwBSUaJbi8TlurLOBnNQEbqe1KCCBtGTHeLZlo MgTlTXPbIXOzIYfjEGKlXLEpHobvNZRiZSOjHM9WSuJnRDHnAwC7TQQbONKqSSNbhi1JPPQzRWFbQZN8 FjZkXZCrQEQpQWfxDVFbFIQmZKJkTWWgTEPcKP7NRg HdTXQuGoPoDzMmSUGbDPZgcr1COYGeOVDtCnDcDhIkSEXhAPEcBGteYSZlBESaTvszIKJsIZZwRM7TNg AiIISrBwC7ZwmfYWTeJGGoyz4JAKWgLTXfEve8ChNcYBLeOYMoCHrnFAIfIDW8PoIsVIRlTEJyYN5GFf MlKQQiAdE7XaGvNYSoTLNgso8VTFJnNHGiLDQjDgFt DHIqOGBwDHqnNKEuJOK7QSwfHOYqHWEwMF9QVhAsFJEoHZByDPBgLXWxQGYgqz3IJYRxFPA4QCZwFjCi IMOhQCPeGZhmTGTgGZXoNnXxMJUlCVSmKO5RIeYwAERvLPV4KElpMPVuUMHgea3VLGLrOVF7MWFrMyUu HNUyRJGuGNwpJFQkCOXjYEQ9FSBuDHGfHA3SPjNqKN RtCWX7GejdQZQiDKHbqu8UULWpTUX7JrZnQhLvJSGgHIEiJQc8fsOwcMLaXPt3DN1LS1XlctLhYEMYCv 0Xb887YWUbOSMyUq3VR0anYz0uAWEdKUZFBg7YXBn5WFSmS2N3KiFsODL9FLUfZnghVQAgPYZ9IdUmVY Q2OGU+XIhuKPOgIXn0MRHdGZhmW4O5RLP1XLU5WAgk LcZ8TWX6XM8gFRRRTe3+KLodoOJeyPndOXRSEcNrWmvjYWsoDABNTv8M ID Date Data Source [id number] 01/17/2021 09:26:35 AM EDT [facility] Name Value Range Interpretation Code Description Data Belinda rce(s) Supporting Document(s) Consultation [facility] BRWZNr2fXdAYNaFk69/SJYsaNPMls5CrSRskCAj9MUlmIKZfL3PiPLF4sZ3dMFX0MKdLLaAwOzXpWLZv lbm [file] 2vMJPVMe1+KNztqKDztEmsCHOMCwJ3FUAqTHpqMYOGCp8O ID Date Data Source [id number] 01/17/2021 04:06:10 AM EDT [facility] Name Value Range Interpretation Code Description Data Belinda rce(s) Supporting Document(s) Leukocytes [#/volume] in Blood by Automated count 6.5 10*3/uL 4-10 [facility] Erythrocytes [#/volume] in Blood by Automated count 3.07 10*6/uL 4.6- 6.1 L [facility] Hemoglobin [Mass/volume] in Blood 8.8 g/dL 13.5-18 L [facility] Hematocrit [Volume Fraction] of Blood by Automated count 27.2 % 4 1-53 L [facility] Erythrocyte mean corpuscular volume [Entitic volume] by Auto mated count 88.6 fL 80-96 [facility] Erythrocyte mean corpuscular hemoglobin [Entitic mass] by Automated count 28.8 pg 27-33 [facility] Erythrocyte mean corpuscular hemoglobin concentration [Mass/volume] by Automated count 32.5 g/dL 32.0-36.0 [facility] width [Ratio] by Automated count 15.6 % 11.5-14.5 H [facility] Platelets [#/volume] in Blood by Automated count 395 10*3/uL 150-400 [facility] Differential cell count method - Blood [facility] Neutrophils/100 leukocytes in Blood by Automated count 77 % [facility] Lymphocytes/100 leukocytes in Blood by Automated count 15 % [facility] Monocytes/100 leukocytes in Blood by Automated count 6 % [facility] Eosinophils/100 leukocytes in Blood by Automated count 1 % [facility] Basophils/100 leukocytes in Blood by Automated count 1 % [facility] Neutrophils [#/volume] in Blood by Automated count 5.03 10*3/uL 1.8-7 .0 [facility] Lymphocytes [#/volume] in Blood by Automated count 0.98 10*3/uL 1.2-4 .0 L [facility] Monocytes [#/volume] in Blood by Automated count 0.37 10*3/uL 0-0.8 [facility] Eosinophils [#/volume] in Blood by Automated count 0.07 10*3/uL 0-0.5 [facility] Basophils [#/volume] in Blood by Automated count 0.03 10*3/uL 0-0.2 [facility] Nucleated erythrocytes/100 leukocytes [Ratio] in Blood by Automated count 0 /100{WBCs} 0-0 [facility] ID Date Data Source [id number] 01/17/2021 04:23:[address] [facility] Name Value Range Interpretation Code Description Data Belinda rce(s) Supporting Document(s) Bicarbonate [Moles/volume] in Serum 21 mmol/L 22-29 L [facility] Chloride [Moles/volume] in Serum or Plasma 110 mmol/L 98-107 H [facility] Creatinine [Mass/volume] in Serum or Plasma 1.16 mg/dL 0.70-1.20 [facility] Glucose [Mass/volume] in Serum or Plasma 101 mg/dL 70-140 [facility] Potassium [Moles/volume] in Serum or Plasma 3.6 mmol/L 3.4-5.1 [facility] Sodium [Moles/volume] in Serum or Plasma 143 mmol/L 136-145 [facility] Urea nitrogen [Mass/volume] in Serum or Plasma 7 mg/dL 8-23 L [facility] Anion gap 3 in Serum or Plasma 12 mmol/L 8-15 [facility] Osmolality of Serum or Plasma by calculation 294 mosm/kg 275-300 [facility] Creatinine/Urea nitrogen [Mass Ratio] in Serum or Plasma 6 [facility] Calcium [Mass/volume] in Serum or Plasma 9.3 mg/dL 8.6-10.0 [facility] Glomerular filtration rate/1.73 sq M pre dicted among non-blacks [Volume Rate/Area] in Serum or Plasma by Creatinine-based formula (MDRD) 67 mL/min/1.73m2 >60 [facility] Glomerular filtration rate/1.73 sq M pre dicted among blacks [Volume Rate/Area] in Serum or Plasma by Creatinine-based formula (MDRD) 77 mL/min/1.73m2 >60 [facility] ID Date Data Source [id number] 01/17/2021 04:23:[address] [facility] Name Value Range Interpretation Code Description Data Belinda rce(s) Supporting Document(s) Magnesium [Mass/volume] in Serum or Plasma 1.5 mg/dL 1.6-2.6 [facility] ID Date Data Source [id number] 01/16/2021 03:50:[address] [facility] Name Value Range Interpretation Code Description Data Belinda rce(s) Supporting Document(s) Leukocytes [#/volume] in Blood by Automated count 8.8 10*3/uL 4-10 [facility] Erythrocytes [#/volume] in Blood by Automated count 3.02 10*6/uL 4.6- 6.1 L [facility] Hemoglobin [Mass/volume] in Blood 9.0 g/dL 13.5-18 L [facility] Hematocrit [Volume Fraction] of Blood by Automated count 26.7 % 4 1-53 L [facility] Erythrocyte mean corpuscular volume [Entitic volume] by Auto mated count 88.3 fL 80-96 [facility] Erythrocyte mean corpuscular hemoglobin [Entitic mass] by Automated count 29.7 pg 27-33 [facility] Erythrocyte mean corpuscular hemoglobin concentration [Mass/volume] by Automated count 33.6 g/dL 32.0-36.0 [facility] E[facility]th[facility] distribution width [Ratio] by Automated count 16.3 % 11.5-14.5 H [facility] Platelets [#/volume] in Blood by Automated count 424 10*3/uL 150-400 H [facility] Differential cell count method - Blood [facility] Neutrophils/100 leukocytes in Blood by Automated count 79 % [facility] Lymphocytes/100 leukocytes in Blood by Automated count 14 % [facility] Monocytes/100 leukocytes in Blood by Automated count 6 % [facility] Eosinophils/100 leukocytes in Blood by Automated count 1 % [facility] Basophils/100 leukocytes in Blood by Automated count 0 % [facility] Neutrophils [#/volume] in Blood by Automated count 6.98 10*3/uL 1.8-7 .0 [facility] Lymphocytes [#/volume] in Blood by Automated count 1.22 10*3/uL 1.2-4 .0 [facility] Monocytes [#/volume] in Blood by Automated count 0.48 10*3/uL 0-0.8 [facility] Eosinophils [#/volume] in Blood by Automated count 0.05 10*3/uL 0-0.5 [facility] Basophils [#/volume] in Blood by Automated count 0.03 10*3/uL 0-0.2 [facility] Nucleated erythrocytes/100 leukocytes [Ratio] in Blood by Automated count 0 /100{WBCs} 0-0 [facility] ID Date Data Source [id number] 01/16/2021 03:56:45 AM EDT [facility] Name Value Range Interpretation Code Description Data Belinda rce(s) Supporting Document(s) Bicarbonate [Moles/volume] in Serum 20 mmol/L 22-29 L [facility] Chloride [Moles/volume] in Serum or Plasma 107 mmol/L 98-107 [facility] Creatinine [Mass/volume] in Serum or Plasma 1.10 mg/dL 0.70-1.20 [facility] Glucose [Mass/volume] in Serum or Plasma 104 mg/dL 70-140 [facility] Potassium [Moles/volume] in Serum or Plasma 4.3 mmol/L 3.4-5.1 [facility] Sodium [Moles/volume] in Serum or Plasma 140 mmol/L 136-145 [facility] Urea nitrogen [Mass/volume] in Serum or Plasma 8 mg/dL 8-23 [facility] Anion gap 3 in Serum or Plasma 13 mmol/L 8-15 [facility] Osmolality of Serum or Plasma by calculation 289 mosm/kg 275-300 [facility] Creatinine/Urea nitrogen [Mass Ratio] in Serum or Plasma 7 [facility] Calcium [Mass/volume] in Serum or Plasma 9.6 mg/dL 8.6-10.0 [facility] Glomerular filtration rate/1.73 sq M pre dicted among non-blacks [Volume Rate/Area] in Serum or Plasma by Creatinine-based formula (MDRD) 71 mL/min/1.73m2 >60 [facility] Glomerular filtration rate/1.73 sq M pre dicted among blacks [Volume Rate/Area] in Serum or Plasma by Creatinine-based formula (MDRD) 82 mL/min/1.73m2 >60 [facility] ID Date Data Source [id number] 01/16/2021 03:56:[address] [facility] Name Value Range Interpretation Code Description Data Belinda rce(s) Supporting Document(s) Magnesium [Mass/volume] in Serum or Plasma 1.8 mg/dL 1.6-2.6 [facility] ID Date Data Source [id number] 01/15/2021 07:55:44 PM [facility] Value Range Interpretation Code Description Data Belinda rce(s) Supporting Document(s) Leukocytes [#/volume] in Blood by Automated count 11.5 10*3/uL 4-10 H [facility] Erythrocytes [#/volume] in Blood by Automated count 3.31 10*6/uL 4.6- 6.1 L [facility] Hemoglobin [Mass/volume] in Blood 9.7 g/dL 13.5-18 L [facility] Hematocrit [Volume Fraction] of Blood by Automated count 29.4 % 4 1-53 L [facility] Erythrocyte mean corpuscular volume [Entitic volume] by Auto mated count 88.9 fL 80-96 [facility] Erythrocyte mean corpuscular hemoglobin [Entitic mass] by Automated count 29.2 pg 27-33 [facility] Erythrocyte mean corpuscular hemoglobin concentration [Mass/volume] by Automated count 32.9 g/dL 32.0-36.0 [facility] Erythrocyte distribution width [Ratio] by Automated count 15.8 % 11.5-14.5 [facility] Platelets [#/volume] in Blood by Automated count 472 10*3/uL 150-400 [facility] ID Date Data Source [id number] 01/15/2021 01:31:[address] [facility] Name Value Range Interpretation Code Description Data Belinda rce(s) Supporting Document(s) Calcium.ionized [Moles/volume] in Arterial blood 1.46 mmol/L 1.13-1.3 2 [facility] ID Date Data Source [id number] 01/15/2021 01:48:[address] [facility] Name Value Range Interpretation Code Description Data Belinda rce(s) Supporting Document(s) Albumin [Mass/volume] in Serum or Plasma by Bromocresol green (BCG) dye binding method 2.6 g/dL 3.5-5.2 [facility] ID Date Data Source [id number] 01/15/2021 01:48:[address] [facility] Name Value Range Interpretation Code Description Data Belinda rce(s) Supporting Document(s) Phosphate [Mass/volume] in Serum or Plasma 2.1 mg/dL 2.5-4.5 [facility] ID Date Data Source [id number] 01/18/2021 04:15:[address] [facility] CYTOPATHOLOGY REPORTName: KIERSTEN LEDEZMAMRN: [id number] Number: [id number] Date: 01/15/2021 12:45Received Date: 01/17/2021 11:31Physician(s): VIN TORRES MD POIESZ, BERNARD J, MD Specimen(s) ReceivedA: URINE, CATHETERIZEDClinical History:Evaluate for malignancy. History of malignancy per requisition. [id number]. DiagnosisURINE, CATHETERIZED: NEGATIVE FOR HIGH-GRADE UROTHELIAL CARCINOMAComment/pf/calReviewing Cytotech: BARBIE Brown (ASCP)Danae Christian MDElectronically Signed By Emeli Jones M.D. 01/18/2021 16:15:46The attending pathologist named above attests that he/she has personallyreviewed the relevant preparation(s) for the specimen(s) and rendered thefinal diagnosis. Microscopic DescriptionThe specimen is composed of few benign urothelial cells, abundantneutrophils, debris and blood./pf Gross Uagyzfawgwh73 ml clear pale-yellow fluid received: 1 Thin-layer Pap stained slideprepared by filter preparation. This report may include one or more immunohistochemical stain results thatuse analyte specific reagents. All positive and negative controls havebeen reviewed by the attending pathologist and are satisfactory. The testswere developed and their performance ch aracteristics determined by [facility]. They have not been cleared or approved by [place] Food and Drug Administration. The FDA has determined that suchclearance or approval is not necessary. Name Value Range Interpretation Code Description Data [facility] rce(s) Supporting Document(s) ID Date Data Source [id number] 01/15/2021 12:16:32 PM T [facility] Name Value Range Interpretation Code Description Data [facility](s) Supporting Document(s) Consultation [facility] LNWCDr4zJaGKXhVe52/QHBpxDWVsn8SvUFndPFw8EDoaIYNmN5RoXSU3nI1mPWO9MTlZXhQeDsQmOQO7 [facility] [file] [id number]TB5IXo0KOcE5PJU1tADoSr7WHTG5PmlOXaWuWW6GMCx= ID Date Data Source [id number] 01/17/2021 07:02:21 AM EDT [facility] Name Value Range Interpretation Code Description Data Belinda rce(s) Supporting Document(s) ABO and Rh group [Type] in [facility] Blood group antibody screen [Presence] in Serum or Plasma [facility] Performed at [facility], Roland Velazquez [facility] [id number] [place] [address] ID Date Data Source [id number] 01/15/2021 12:52:10 PM EDT [facility] Value Range Interpretation Code Description Data Belinda rce(s) Supporting Document(s) ABO and Rh group [Type] in [facility] Blood bank comment [facility] ID Date Data Source [id number] 01/15/2021 12:50:29 AM EDT [facility] Value Range Interpretation Code Description Data Belinda rce(s) Supporting Document(s) Leukocytes [#/volume] in Blood by Automated count 7.5 10*3/uL 4-10 [facility] Erythrocytes [#/volume] in Blood by Automated count 2.41 10*6/uL 4.6- 6.1 L [facility] Hemoglobin [Mass/volume] in Blood 6.9 g/dL 13.5-18 L [facility] Hematocrit [Volume Fraction] of Blood by Automated count 21.2 % 4 1-53 L [facility] Erythrocyte mean corpuscular volume [Entitic volume] by Auto mated count 88.0 fL 80-96 [facility] Erythrocyte mean corpuscular hemoglobin [Entitic mass] by Automated count 28.8 pg 27-33 [facility] Erythrocyte mean corpuscular hemoglobin concentration [Mass/volume] by Automated count 32.8 g/dL 32.0-36.0 [facility] E[facility]th[facility] distribution width [Ratio] by Automated count 16.4 % 11.5-14.5 H [facility] Platelets [#/volume] in Blood by Automated count 380 10*3/uL 150-400 [facility] Differential cell count method - Blood [facility] Neutrophils/100 leukocytes in Blood by Automated count 83 % [facility] Lymphocytes/100 leukocytes in Blood by Automated count 11 % [facility] Monocytes/100 leukocytes in Blood by Automated count 6 % [facility] Eosinophils/100 leukocytes in Blood by Automated count 0 % [facility] Basophils/100 leukocytes in Blood by Automated count 0 % [facility] Neutrophils [#/volume] in Blood by Automated count 6.22 10*3/uL 1.8-7 .0 [facility] Lymphocytes [#/volume] in Blood by Automated count 0.80 10*3/uL 1.2-4 .0 L [facility] Monocytes [#/volume] in Blood by Automated count 0.45 10*3/uL 0-0.8 [facility] Eosinophils [#/volume] in Blood by Automated count 0.02 10*3/uL 0-0.5 [facility] Basophils [#/volume] in Blood by Automated count 0.03 10*3/uL 0-0.2 [facility] Nucleated erythrocytes/100 leukocytes [Ratio] in Blood by Automated count 0 /100{WBCs} 0-0 [facility] ID Date Data Source [id number] 01/15/2021 01:05:17 AM EDT [facility] Name Value Range Interpretation Code Description Data Belinda rce(s) Supporting Document(s) Bicarbonate [Moles/volume] in Serum 21 mmol/L 22-29 L [facility] Chloride [Moles/volume] in Serum or Plasma 106 mmol/L 98-107 [facility] Creatinine [Mass/volume] in Serum or Plasma 0.97 mg/dL 0.70-1.20 [facility] Glucose [Mass/volume] in Serum or Plasma 114 mg/dL 70-140 [facility] Potassium [Moles/volume] in Serum or Plasma 3.3 mmol/L 3.4-5.1 L [facility] Sodium [Moles/volume] in Serum or Plasma 138 mmol/L 136-145 [facility] Urea nitrogen [Mass/volume] in Serum or Plasma 8 mg/dL 8-23 [facility] Anion gap 3 in Serum or Plasma 11 mmol/L 8-15 [facility] Osmolality of Serum or Plasma by calculation 285 mosm/kg 275-300 [facility] Creatinine/Urea nitrogen [Mass Ratio] in Serum or Plasma 8 [facility] Calcium [Mass/volume] in Serum or Plasma 10.0 mg/dL 8.6-10.0 [facility] Glomerular filtration rate/1.73 sq M pre dicted among non-blacks [Volume Rate/Area] in Serum or Plasma by Creatinine-based formula (MDRD) 88 mL/min/1.73m2 >60 [facility] Glomerular filtration rate/1.73 sq M pre dicted among blacks [Volume Rate/Area] in Serum or Plasma by Creatinine-based formula (MDRD) >60 [facility] ID Date Data Source [id number] 01/19/2021 10:45:08 AM EDT [facility] Service Cmnt XXX-Imp : L WRISTMicroorgan ism XXX Cult : No growth 5 days Name Value Range Interpretation Code Description Data Belinda rce(s) Supporting Document(s) ID Date Data Source [id number] 01/14/2021 03:34:40 PM EDT [facility] CT ABDOMEN PELVIS WITHOUT CONTRAST [id number] FINAL RESULTInterpreted by:CAROLYN WileyROCEDURE INFORMATION: Exam: CT [...] rce(s) Supporting Document(s) ID Date Data Source [id number] 01/14/2021 01:33:03 PM EDT [facility] Name Value Range Interpretation Code Description Data Belinda rce(s) Supporting Document(s) Progress Note [facility] OVOAJi1jNqBOFrWf87/OXUusFSSdy5TiLQcwUWr7UWruRKJvU2YoRKU8vG0uWAE1NYlETsIaExImAAD4 m [file] [id number]DZ6GKNo== ID Date Data Source [id number] 01/19/2021 10:45:08 AM EDT [facility] Service Cmnt XXX-Imp : RACMicroorganism XXX Cult : No growth 5 days Name Value Range Interpretation Code Description Data Belinda rce(s) Supporting Document(s) ID Date Data Source [id number] 01/22/2021 03:06:13 PM EDT [facility] Name Value Range Interpretation Code Description Data Belinda rce(s) Supporting Document(s) Pyridoxine [Mass/volume] in Serum or Plasma 3.0 ug/L 5.3-46.7 L [facility] (NOTE)Verified by repeat analysisThi s test was developed and its performance characteristicsdetermined by [employer]. It has not been cleared or approvedby the Food and Drug Administration.Performed At: [address] [id number] Holden MD Ph:[phone] ID Date Data Source [id number] 01/14/2021 09:58:14 AM EDT [facility] Name Value Range Interpretation Code Description Data Belinda rce(s) Supporting Document(s) [facility] ZKQSPx9yKqWYUhPz02/LUBebOBMfz3VpUHmvEHh6WGdlTIHzH7YoHOR1gK9cJTJ3GJuNBeCiUjLbMMY2 [facility] [file] CHIEF CLINICAL DIETITIAN/6sDiJirJIIokQTZTWZn4wDGvkLeff7Xt0qPlihz4YebrdbrMEGDcO5I0sPRDpXvCbRL3dsDDLoUXC [file] ICAgICAgICAgICAgICAgICAgICAgICAgICAgICAgICAgICAgICAgICAgICAgICAgICAgICAgICAgICAg ICAgICAgICAgICAgICAgICAgICAgICAgICAgICAgICAgICAgICANCiAgICAgICAgICAgICAgICAgICAg ICAgICAgICAgICAgICAgICAgICAgICAgICAgICAgIC AgICAgICAgICAgICAgICAgICAgICAgICAgICAgICAgICAgICAgICAgICAgICAgICANCiAgICAgICAgIC AgICAgICAgICAgICAgICAgICAgICAgICAgICAgICAgICAgICAgICAgICAgICAgICAgICAgICAgICAgIC AgICAgICAgICAgICAgICAgICAgICAgICAgICAgICAN CiAgICAgICAgICAgICAgICAgICAgICAgICAgICAgICAgICAgICAgICAgICAgICAgICAgICAgICAgICAg ICAgICAgICAgICAgICAgICAgICAgICAgICAgICAgICAgICAgICAgICANCiAgICAgICAgICAgICAgICAg ICAgICAgICAgICAgICAgICAgICAgICAgICAgICAgIC AgICAgICAgICAgICAgICAgICAgICAgICAgICAgICAgICAgICAgICAgICAgICAgICAgICANCiAgICAgIC AgICAgICAgICAgICAgICAgICAgICAgICAgICAgICAgICAgICAgICAgICAgICAgICAgICAgICAgICAgIC AgICAgICAgICAgICAgICAgICAgICAgICAgICAgICAg ICANCiAgICAgICAgICAgICAgICAgICAgICAgICAgICAgICAgICAgICAgICAgICAgICAgICAgICAgICAg ICAgICAgICAgICAgICAgICAgICAgICAgICAgICAgICAgICAgICAgICAgICANCiAgICAgICAgICAgICAg ICAgICAgICAgICAgICAgICAgICAgICAgICAgICAgIC AgICAgICAgICAgICAgICAgICAgICAgICAgICAgICAgICAgICAgICAgICAgICAgICAgICAgICANCiAgIC AgICAgICAgICAgICAgICAgICAgICAgICAgICAgICAgICAgICAgICAgICAgICAgICAgICAgICAgICAgIC AgICAgICAgICAgICAgICAgICAgICAgICAgICAgICAg ICAgICANCiAgICAgICAgICAgICAgICAgICAgICAgICAgICAgICAgICAgICAgICAgICAgICAgICAgICAg ICAgICAgICAgICAgICAgICAgICAgICAgICAgICAgICAgICAgICAgICAgICAgICANCjw/sKMtK0jxqPHz knC7Q5zxFg9QUe6DBT4lo7AqZJLuXQvrbjTrPrkSMz AxMPIqBihMCcj5YTsaXV8MwBBxP6ItH3PnYVkfQU3CJDDsLGBxqRBzHREcNYEtLeJ9AVLdNDhkGB0LtF DlZBvrGBRcFNWgWgIeZBQlFAXpXZTvDIIyLJNUWS0FKsHwW4QoiT57FUXGMr7+DQplbmRvYmoNCjMxID Oqf9DoVNi9YX2EETNrXzfbt5GeJrLpFGBPFLnqZI9M OME3LQUqCYDqTa2HUSTtL327wsJeNL2CXj4NUpKvIC5wcr9GWsWdDSSfHinYYlz5NPukZZ1QmGToVWiG f38nwDw2jvSkxEOASKLkkqA9RDHtIb8dGCX2HAOKIRUeqUS8WmE4XcAmEtInEHj7NJSnFF3bFOdqYJ8D VHE0NWoiGMEwRQOpD7dXVtEcRXR1JhUalVlpYX1QSd CfJ0BydoDmsJQgQSMlKVECNn5+XYsnkjHkHpkOAuKkMQLix8PfYPl4WD2NHEXfDEuyYS1NYVOuwS2vVO iaSY7LRhYuKWFnDTIOCuNzS19cxZNlLEd0H6OfQqUvDGSeDjfxJSSnEZscDtDzSDVqQjNlQZonHX6+ID 4+AIfcQX6URKjzmpFlJFZgAm8MIAQwMYTtYJ7qGHMi AAFlU6X4bPnbVLWPAiTqF1gojofeEX3nABFoV068lDmtgdItEMAdKYMzBj4FTGBiHEO3HCDggLWmOdAx DTIIPRdjSX3RvXGdEQX2rB7uDLhkCZCzMDWiQ4gHRaGxmIxjGC08rNkqkoZhwGUaZAt+Pg3UMZ3nk4Ct VOa6rtPhFLhuUXO0BGctPTGvLVNaSAQsXMG5FTX6ME GDCjCcRHBpABSjIElhAZCkVFEmso4GVQBhAIPkQqTiOBDgBPOdURMfTTtbXYPkSDN9ZbuiVVEsMJXpKJ 8XCkEmRIQrSSBkQTvtXHDlGGDrux5OUHKvIOBhWZZ8TJJaEAAqQKHlGGjoKDYyHHT8DuFgUKViHKHzRT 8JYmMlYQVeCHw3JCPeYMFbIVIyct6PYJTvALMjGTNu JnUaMCZvHLBhROaoAYWeOFAqQlA9WCQwHCDhAC3AKbGwGXIhKIM7DqHeSKEeIJNqda5UIELlWVIvMVzm NoKfUWFvTMVzCDmgRSZnZYM0TYWxJKDbPTKpJU0LZjTeINNvZTI1STBfUVHtPWSsen8ZIRXzWLBzUbF9 ADMhRZInDDWxUEhlMDBcXBJ8InyqOQDaYQXrQA2YHj VeIEJbOCdxEUEbLIFrAUJxif7JLLMrHIUqFkC5GzNgGXXvXPThDBcmPMSxSZA8ViXwFPCxRLDwEV7SSy AcRZFkJJz0UAZlYULlSIDyky0VAFTbLEKrFAr1FeHmUALwIVKsHMxfDZTaXUC3YSmdTVTkZNExFU1KIx WqQYSbMSh0HDQhCXNlHAZghs1MUSHpJBZeHLPwWpGm VJOwWUQiTBgsVCYjJFUjYuUdMJZkZQAqFE8DIjDmVUSlUuK3OQTqDGWbJUIhdw2LSQVaLJWqObKoQfQw ATSmYGMlBYuaQXQhQMJaBoTtRZWfRCQpOW5CPkScXXPoCoJ5MmQfMSEdFKPsjt5EGFZkREQrPyAtKoGq UCInPPCoNWahZPUlINWzMGSuYNAnMMDgAN6SOnHjIY MkGvV1WMzzNCWtCQFkco6AKCLqGYTcUOD5HXKiPWMbQGTqXBncHIOcCGN3FxUjEDFeNGAzRX1LDxWkPQ vpRIUPUri3UGfhV1r8HRKcNJ3UJ2Xar1JiJbLmWSRUUFfbGC6jqdPkKFGaWt2WN6yMZhvyA0JxZIXqZP F0McfsRJKvAMCkGQldWEMoLHKoJif6RY1iCIN2SpZe ICU2UaZ5ANT5CxR5DpEjFTT0VdRaGSGmXmf7AhLlCU4JEc0TZyU7RDL9fEZkKd0ZDwC1LxwWYqAwUR9H DQo= ID Date Data Source [id number] 01/14/2021 08:56:02 AM EDT [facility] IR NEPHROSTOMY INSERTION CHANGEFINAL RES ULTInterpreted by:Sae CharlesaskaLILY gossEXAM: Image guided right nephrostomy tube placement, 01/13/2021LINICAL [...] The needle was removed and a 6 Amharic coaxial dilator and sheath system was placed [...] rce(s) Supporting Document(s) ID Date Data Source [id number] 01/14/2021 09:45:[address] [facility] Service Cmnt XXX-Imp : NoneGI Panel [...] rce(s) Supporting Document(s) ID Date Data Source [id number] 01/14/2021 05:46:37 AM EDT [facility] Name Value Range Interpretation Code Description Data Belinda rce(s) Supporting Document(s) Bicarbonate [Moles/volume] in Serum 20 mmol/L 22-29 L [facility] Chloride [Moles/volume] in Serum or Plasma 103 mmol/L 98-107 [facility] Creatinine [Mass/volume] in Serum or Plasma 1.15 mg/dL 0.70-1.20 [facility] Glucose [Mass/volume] in Serum or Plasma 116 mg/dL 70-140 [facility] Potassium [Moles/volume] in Serum or Plasma 3.4 mmol/L 3.4-5.1 [facility] Sodium [Moles/volume] in Serum or Plasma 136 mmol/L 136-145 [facility] Urea nitrogen [Mass/volume] in Serum or Plasma 10 mg/dL 8-23 [facility] Anion gap 3 in Serum or Plasma 12 mmol/L 8-15 [facility] Osmolality of Serum or Plasma by calculation 281 mosm/kg 275-300 [facility] Creatinine/Urea nitrogen [Mass Ratio] in Serum or Plasma 9 [facility] Calcium [Mass/volume] in Serum or Plasma 11.1 mg/dL 8.6-10.0 H [facility] Glomerular filtration rate/1.73 sq M pre dicted among non-blacks [Volume Rate/Area] in Serum or Plasma by Creatinine-based formula (MDRD) 67 mL/min/1.73m2 >60 [facility] Glomerular filtration rate/1.73 sq M pre dicted among blacks [Volume Rate/Area] in Serum or Plasma by Creatinine-based formula (MDRD) 78 mL/min/1.73m2 >60 [facility] ID Date Data Source [id number] 01/14/2021 06:34:47 AM EDT [facility] Name Value Range Interpretation Code Description Data Belinda rce(s) Supporting Document(s) Leukocytes [#/volume] in Blood by Automated count 11.4 10*3/uL 4-10 H [facility] Erythrocytes [#/volume] in Blood by Automated count 2.75 10*6/uL 4.6- 6.1 L [facility] Hemoglobin [Mass/volume] in Blood 7.8 g/dL 13.5-18 L [facility] Hematocrit [Volume Fraction] of Blood by Automated count 24.0 % 4 1-53 L [facility] Erythrocyte mean corpuscular volume [Entitic volume] by Auto mated count 87.6 fL 80-96 [facility] Erythrocyte mean corpuscular hemoglobin [Entitic mass] by Automated count 28.3 pg 27-33 [facility] Erythrocyte mean corpuscular hemoglobin concentration [Mass/volume] by Automated count 32.3 g/dL 32.0-36.0 [facility] to Obtain Results Erythrocyte distribution width [Ratio] by Automated count 16.5 % 11.5-14.5 H [facility] Platelets [#/volume] in Blood by Automated count 407 10*3/uL 150-400 H [facility] Differential cell count method - Blood [facility] Neutrophils/100 leukocytes in Blood by Automated count 88 % [facility] Lymphocytes/100 leukocytes in Blood by Automated count 8 % [facility] Monocytes/100 leukocytes in Blood by Automated count 4 % [facility] Eosinophils/100 leukocytes in Blood by Automated count 0 % [facility] Basophils/100 leukocytes in Blood by Automated count 0 % [facility] Neutrophils [#/volume] in Blood by Automated count 10.02 10*3/uL 1.8- 7.0 H [facility] Lymphocytes [#/volume] in Blood by Automated count 0.91 10*3/uL 1.2-4 .0 L [facility] Monocytes [#/volume] in Blood by Automated count 0.46 10*3/uL 0-0.8 [facility] Eosinophils [#/volume] in Blood by Automated count 0.01 10*3/uL 0-0.5 [facility] Basophils [#/volume] in Blood by Automated count 0.03 10*3/uL 0-0.2 [facility] Nucleated erythrocytes/100 leukocytes [Ratio] in Blood by Automated count 0 /100{WBCs} 0-0 [facility] ID Date Data Source [id number] 01/16/2021 10:54:50 AM [facility] Cmnt XXX-Imp : NoneMicroorganism XXX Cult : No growth 3 days Name Value Range Interpretation Code Description Data Belinda rce(s) Supporting Document(s) ID Date Data Source [id number] 01/14/2021 11:01:20 AM [facility] Cmnt XXX-Imp : NoneMicroorganism XXX Cult : Test Not Performed.Improper Tube/Specimen Type Name Value Range Interpretation Code Description Data Belinda rce(s) Supporting Document(s) ID Date Data Source [id number] 01/13/2021 03:47:[address] [facility] Name Value Range Interpretation Code Description Data Belinda rce(s) Supporting Document(s) [facility] OKOOFz2zAzOGKzEv38/LANmsFPXho4FiHGmfPYl1SHkmORMjH7PxDCC1nF0aJQG6TGwBTaOkMrXmQNX3 [facility] [file] ICAgICAgICAgICAgICAgICAgICAgICAgICAgICAgIC AgICAgICAgICAgICAgICAgICAgICAgICAgICAgICAgDQogICAgICAgICAgICAgICAgICAgICAgICAgIC AgICAgICAgICAgICAgICAgICAgICAgICAgICAgICAgICAgICAgICAgICAgICAgICAgICAgICAgICAgIC AgICAgICAgICAgICAgDQogICAgICAgICAgICAgICAg ICAgICAgICAgICAgICAgICAgICAgICAgICAgICAgICAgICAgICAgICAgICAgICAgICAgICAgICAgICAg ICAgICAgICAgICAgICAgICAgICAgICAgDQogICAgICAgICAgICAgICAgICAgICAgICAgICAgICAgICAg ICAgICAgICAgICAgICAgICAgICAgICAgICAgICAgIC AgICAgICAgICAgICAgICAgICAgICAgICAgICAgICAgICAgDQogICAgICAgICAgICAgICAgICAgICAgIC AgICAgICAgICAgICAgICAgICAgICAgICAgICAgICAgICAgICAgICAgICAgICAgICAgICAgICAgICAgIC AgICAgICAgICAgICAgICAgDQogICAgICAgICAgICAg ICAgICAgICAgICAgICAgICAgICAgICAgICAgICAgICAgICAgICAgICAgICAgICAgICAgICAgICAgICAg ICAgICAgICAgICAgICAgICAgICAgICAgICAgDQogICAgICAgICAgICAgICAgICAgICAgICAgICAgICAg ICAgICAgICAgICAgICAgICAgICAgICAgICAgICAgIC AgICAgICAgICAgICAgICAgICAgICAgICAgICAgICAgICAgICAgDQogICAgICAgICAgICAgICAgICAgIC AgICAgICAgICAgICAgICAgICAgICAgICAgICAgICAgICAgICAgICAgICAgICAgICAgICAgICAgICAgIC AgICAgICAgICAgICAgICAgICAgDQogICAgICAgICAg ICAgICAgICAgICAgICAgICAgICAgICAgICAgICAgICAgICAgICAgICAgICAgICAgICAgICAgICAgICAg ICAgICAgICAgICAgICAgICAgICAgICAgICAgICAgDQogICAgICAgICAgICAgICAgICAgICAgICAgICAg ICAgICAgICAgICAgICAgICAgICAgICAgICAgICAgIC EoPABaGJRaAEQjKUZsGTZsKFYfQFDnKKVqJTTaEBAhZQVlMWVxXAWdNSn6K5miELEoMPCzAA1uYJd9Or 8+BQtRLgItUGM4yhZudG6ZYV8ul7RbTWmkWAZvj4YeYNv0VR4ECIKlQNhgXF1GNIhnez3RFGLjNLAhyV EZa5wgVsHmORX7QOQfOassLF2LCANvK1twhyLcTGVl WPLZPCuyJGTSCGbzTHGNECJlIEWcCmSwPbGiJCPkCMJyNFNTEBY9BMVvClWuDOCpRZWhYiRmMVAGWPCe OMHcFfAgPGffFE4Nj5HahRPuNY5EYu6NUkMbBZ0bvx4PADEgBIFlPgoHIkl3GPeeAT3ApIXtbPD6IaBh DBBWBeWiC9bxi0RhSVawAQPVCEiqRL8Bo0QeoVZrAD o+Cl8TMM0dk8GpHAv5HjBxVA5mbo4TKHqBChJsN3QprFrjTHHqzhN8cZUmXXI0CYBdjHojIpC7rKILMH uyggU5x5gwOW3RBFE5VGixRLToXeEhPOXtCAg2KxSJXPuRGzMsN6Voa3ErXnM7ZSDhVsOuZMvuBMBfBC wpPN88jUfeIH1OOCIfZEMzBT44PRN4QTVaIz5XWr6C DrIbDJ8wug0LAYhfVKQqApqELdv6DGkpFG0UyHCrH3HkhPDhi6qODmMzW6GOPWN9AIYiOf5MARRfRiNf PGUoXViqQS1fDXGnWARNuFrgevM9AN3RLN6dihLoWW7JQfNbZj4hDi6HGjEwF8RhU2RlFNZzZRVLFSqg AK0IYUqlAT6pAH9Fd2FKgFKhnC6ebh9XTMLmOJXtAw dbcn4LLzbdF1A2fNhfYWUrTEWhBNGNVXbxRM6BFDBeNVZ1WRL1DMWhHQHGFmNhP20tYS8SX0Fko25qEi T4IRMpCgPfDLjbAS05rDpxrzWzgNLaqCvaMB3RJt9+DQplbmRvYmoNCnhyZWYNCjAgNDkNCjAwMDAwMD LcNOWjBaC7RpJmMu7OLGQvAKIvBEIgZlMfYOHmKJEo ITdeFODkUIByAQk4AOKaDHTrOL9BMpZoYEJbSSBvPaMpPRZcWEHhxg9IYOUqGVIeWNY6PpBjUXXnSADo RShwYSVnDBS8HnSeUQLcDAKcBJ5EWcTxFWTnQCJ2XiQgEJRbQEDizo1SKTVxUXYdXmReNiRlNIYyJGHr SOdfPZWaGTA5WDZ3BPLzFFSzGA6QVsJjCYVwLCG3Zx ouIZKgMCLyze5CCFAhMICaVTHpRDCoEDSxXAAzDZprUZHsHNTiDYO4WXQlHBYnBE3EBjBvLJApERA7Oe BmUMZgEYGmsc7ENHUwFWKbNkY5MSQtXJGbTQIcBGufPQVxEUP3Pie9UBTaWQLeWP7XWfYhGSGgSOw4FR LeVTNjAANcas7DWOJhJCSvUJDiWsFfQONiSWDlHCcq KSJqYJLdJBkcXEGgLUKaXQ4KWvWhPAPsKaIpRrasXFLwLUGnle1XJTGqKCPpXjQ0IdRmZDHaRJOpJRss PJTmKTD1CyilEOWxRFNnDL6CLrBpVAJyBaMqXzQqINDfNWMeir7UBIWkYUZbVJX9QYLxRYHvZJJgJIdd ANPkUGWpOxlhEAKzQSSiBQ5GHdLdAUXzIwD8CRhrOX EbMUSiqx6BPCAjMTHnHpL5MsSbPJIaTRMeVMpsFRRdKZIgAcW4QWLdKDRyDK9TEjZqPTXhDfD1DbqmGZ ChQNJxii1NGYWjTSArTYa9CjLiWYWrECAcABdoWSLiIYE2YJe6RAIbAESxDY5NGxUnONYwDgTzNnRtXJ ObKZPagi0KBMKfWZOfMiIgOTSkBABfFAIkSVguXIMh BRX4SeK0ZLGrTPBbYO1QXtEqFQPiFfH7NcJcQZWkFFZuth5LHUWiJOPlCmG6SWSqIXPcORMuBZefGFQh HSN3BjjhDMMaRUEgXD0CEjHgLJMxHom7WoNjGCFcBHRbmn4MNGNlKAZ5IYK6NZYeRIPzPCVgTNiiRJWb GXE1BCG5PBKvQIQiYS4YIuEoMBHcMLb4SsozPRBiHU Kuwn9WDIPnKWP3SREkWnWlUAFeXGQoASfwAEEwFLEeKOJhEHIyCZTzLI6NWzTcPXGzWXCkWKYaAUOuBE Ftpc4XFSOsAJM3JIY6BFEqQPGmFWSwLMwcGUQnADUdOUnoLUMrANYyYK6RRkYpXKVyBCI4VhPfIMHpSK Tbgt2MLNAgPVA4JyDaSHBtUPYoSIBbQWcbNHIgJIRw SBbyLWIeWWRuYX9CVqAaPGQkFLB1QUYpYUSdBIYiyg9RwPJzsRycjg3PTEgUAs6BfTvtUYE1AUtaVj1y mDY0AOThIKUMCf6JstMlTITxLCOEHOotENBeUJJfXRK0OGFbVmNmSMC2G1C2Lpb3DdFqKhHrWDZ8KcTt QeO5LPH7XLzgGTO9SwEqGANwFtIyDGawHYRtH0FxQO gzMGE+JS1bXFu+Cj7Jv2BupmK5juFbFSe8Pqk4WX1GGLHDI6UFDp== ID Date Data Source [id number] 01/15/2021 12:43:02 PM EDT [facility] Service Cmnt XXX-Imp : NoneMicroorganism XXX Cult : 200 col/mlStaphylococcus epidermidis. Name Value Range Interpretation Code Description Data Belinda rce(s) Supporting Document(s) ID Date Data Source [id number] 01/13/2021 01:49:56 PM EDT [facility] Name Value Range Interpretation Code Description Data Belinda rce(s) Supporting Document(s) History and Physical [facility] DLMYGn2uCbTFJxBk87/LBDcqBKGax9OjMDriDQp5SMeeKTBvX9BzNXK9mE4bDFL6BHeVShZdUsMdLHL6 lbm [file] JvDtMF0IQr6KTqT0BIO8yBIqTa8DFdg1JIbARjIvPY5ATUz= ID Date Data Source [id number] 01/13/2021 11:36:31 AM [facility] Value Range Interpretation Code Description Data Belinda rce(s) Supporting Document(s) Cobalamin (Vitamin B12) [Mass/volume] in Serum or Plasma 724 pg/ml 2 11-946 [facility] ID Date Data Source [id number] 01/13/2021 11:36:31 AM [facility] Value Range Interpretation Code Description Data Belinda rce(s) Supporting Document(s) Ferritin [Mass/volume] in Serum or Plasma 583 ng/ml 30-400 H [facility] ID Date Data Source [id number] 01/13/2021 11:36:31 AM [facility] Value Range Interpretation Code Description Data Belinda rce(s) Supporting Document(s) Haptoglobin [Mass/volume] in Serum or Plasma 348 mg/dl 30-200 H [facility] ID Date Data Source [id number] 01/13/2021 12:14:08 PM [facility] Value Range Interpretation Code Description Data Belinda rce(s) Supporting Document(s) Lactate dehydrogenase [Enzymatic activit y/volume] in Serum or Plasma by Lactate to pyruvate reaction 169 U/L 122-225 [facility] ID Date Data Source [id number] 01/13/2021 12:14:08 PM [facility] Value Range Interpretation Code Description Data Belinda rce(s) Supporting Document(s) Iron [Mass/volume] in Serum or Plasma 13 ug/dl 59-158 L [facility] Transferrin [Mass/volume] in Serum or Plasma 114 mg/dL 200-360 L [facility] Iron binding capacity [Mass/volume] in Serum or Plasma 158 ug/dL 278 -500 L [facility] Iron saturation [Mass Fraction] in Serum or Plasma 8.0 % 20-55 L [facility] ID Date Data Source [id number] 01/13/2021 11:38:00 AM [facility] Value Range Interpretation Code Description Data Belinda rce(s) Supporting Document(s) Folate [Mass/volume] in Serum or Plasma >4.77 L [facility] ID Date Data Source [id number] 01/13/2021 06:50:57 AM [facility] Value Range Interpretation Code Description Data Belinda rce(s) Supporting Document(s) Potassium [Moles/volume] in Serum or Plasma 3.4 mmol/L 3.4-5.1 [facility] ID Date Data Source [id number] 01/13/2021 08:12:[address] [facility] Name Value Range Interpretation Code Description Data Belinda rce(s) Supporting Document(s) Magnesium [Mass/volume] in Serum or Plasma 1.5 mg/dL 1.6-2.6 [facility] ID Date Data Source [id number] 01/13/2021 08:12:[address] [facility] Name Value Range Interpretation Code Description Data Belinda rce(s) Supporting Document(s) Phosphate [Mass/volume] in Serum or Plasma 1.9 mg/dL 2.5-4.5 [facility] ID Date Data Source [id number] 01/25/2021 05:06:08 PM [facility] Value Range Interpretation Code Description Data Belinda rce(s) Supporting Document(s) Thiamine [Moles/volume] in Blood 54.7 nmol/L 66.5-200.0 [facility] (NOTE)Verified by repeat analysisThi s test was developed and its performance characteristicsdetermined by [employer]. It has not been cleared or approvedby the Food and Drug Administration.Performed At: [address] [id number] Holden MD Ph:[phone] ID Date Data Source [id number] 01/13/2021 02:10:42 AM [facility] Value Range Interpretation Code Description Data Belinda rce(s) Supporting Document(s) Leukocytes [#/volume] in Blood by Automated count 14.4 10*3/uL 4-10 H [facility] Erythrocytes [#/volume] in Blood by Automated count 2.59 10*6/uL 4.6- 6.1 L [facility] Hemoglobin [Mass/volume] in Blood 7.4 g/dL 13.5-18 L [facility] Hematocrit [Volume Fraction] of Blood by Automated count 22.7 % 4 1-53 [facility] Erythrocyte mean corpuscular volume [Entitic volume] by Auto mated count 87.6 fL 80-96 [facility] Erythrocyte mean corpuscular hemoglobin [Entitic mass] by Automated count 28.5 pg 27-33 [facility] Erythrocyte mean corpuscular hemoglobin concentration [Mass/volume] by Automated count 32.5 g/dL 32.0-36.0 [facility] E[facility]throcyte distribution width [Ratio] by Automated count 16.3 % 11.5-14.5 H [facility] Platelets [#/volume] in Blood by Automated count 391 10*3/uL 150-400 [facility] Differential cell count method - Blood [facility] Neutrophils/100 leukocytes in Blood by Automated count 86 % [facility] Lymphocytes/100 leukocytes in Blood by Automated count 6 % [facility] Monocytes/100 leukocytes in Blood by Automated count 8 % [facility] Eosinophils/100 leukocytes in Blood by Automated count 0 % [facility] Basophils/100 leukocytes in Blood by Automated count 0 % [facility] Neutrophils [#/volume] in Blood by Automated count 12.34 10*3/uL 1.8- 7.0 H [facility] Lymphocytes [#/volume] in Blood by Automated count 0.91 10*3/uL 1.2-4 .0 L [facility] Monocytes [#/volume] in Blood by Automated count 1.08 10*3/uL 0-0.8 [facility] Eosinophils [#/volume] in Blood by Automated count 0.02 10*3/uL 0-0.5 [facility] Basophils [#/volume] in Blood by Automated count 0.04 10*3/uL 0-0.2 [facility] Nucleated erythrocytes/100 leukocytes [Ratio] in Blood by Automated count 0 /100{WBCs} 0-0 [facility] ID Date Data Source [id number] 01/13/2021 02:16:55 AM EDT [facility] Name Value Range Interpretation Code Description Data Belinda rce(s) Supporting Document(s) Bicarbonate [Moles/volume] in Serum 24 mmol/L 22-29 [facility] Chloride [Moles/volume] in Serum or Plasma 101 mmol/L 98-107 [facility] Creatinine [Mass/volume] in Serum or Plasma 1.13 mg/dL 0.70-1.20 [facility] Glucose [Mass/volume] in Serum or Plasma 118 mg/dL 70-140 [facility] Potassium [Moles/volume] in Serum or Plasma 3.0 mmol/L 3.4-5.1 [facility] Sodium [Moles/volume] in Serum or Plasma 135 mmol/L 136-145 L [facility] Urea nitrogen [Mass/volume] in Serum or Plasma 12 mg/dL 8-23 [facility] Anion gap 3 in Serum or Plasma 9 mmol/L 8-15 [facility] Osmolality of Serum or Plasma by calculation 280 mosm/kg 275-300 [facility] Creatinine/Urea nitrogen [Mass Ratio] in Serum or Plasma 10 [facility] Calcium [Mass/volume] in Serum or Plasma 11.1 mg/dL 8.6-10.0 H [facility] Glomerular filtration rate/1.73 sq M pre dicted among non-blacks [Volume Rate/Area] in Serum or Plasma by Creatinine-based formula (MDRD) 69 mL/min/1.73m2 >60 [facility] Glomerular filtration rate/1.73 sq M pre dicted among blacks [Volume Rate/Area] in Serum or Plasma by Creatinine-based formula (MDRD) 80 mL/min/1.73m2 >60 [facility] ID Date Data Source [id number] 01/13/2021 02:01:[address] [facility] Name Value Range Interpretation Code Description Data Belinda rce(s) Supporting Document(s) Calcium.ionized [Moles/volume] in Arterial blood 1.73 mmol/L 1.13-1.[address] [facility] Called to and read back byEDDIE SARAVIA AT 10E AT 0201 BY [id number] XW ID Date Data Source [id number] 01/20/2021 02:06:27 AM [facility] Value Range Interpretation Code Description Data Belinda rce(s) Supporting Document(s) Parathyrin related protein [Moles/volume] in Serum or Plasma [facility] (NOTE)This test was developed and its [...] areclinically discordant, please contact the laboratory.Performed At: [id number] [place], [place] [id number] Brian F MD Ph:[phone] ID Date Data Source [id number] 01/12/2021 06:41:[address] [facility] Name Value Range Interpretation Code Description Data Belinda rce(s) Supporting Document(s) Hepatitis C virus Ab [Presence] in Serum or Plasma by Immuno assay Non Reactive [facility] No serological evidence of active infect ion. If recent exposure is suspected, test for HCV RNA. ID Date Data Source [id number] 01/12/2021 06:21:[address] [facility] Name Value Range Interpretation Code Description Data Belinda rce(s) Supporting Document(s) Prothrombin time (PT) 17.5 s 11.6-14.0 H [facility] INR in Platelet poor plasma by Coagulation assay 1.50 [facility] Routine intensity oral anticoagulation I NR is typically 2.0-3.0. Target INR must be clinically individualized. ID Date Data Source [id number] 01/12/2021 06:18:[address] [facility] Name Value Range Interpretation Code Description Data Belinda rce(s) Supporting Document(s) Calcium.ionized [Moles/volume] in Arterial blood 1.75 mmol/L 1.13-1.[address] [facility] Called to and read back byDANIEL HANLEY RN ON AT 1817 BY 2055 ID Date Data Source [id number] 01/12/2021 01:22:[address] [facility] MR BRAIN WITH AND WITHOUT CONTRAST [id number] FINAL RESULTInterpreted by:Tricia Tate MDINDICATION: Mental status [...] rce(s) Supporting Document(s) ID Date Data Source [id number] 01/12/2021 12:04:38 PM EDT [facility] Name Value Range Interpretation Code Description Data Belinda rc(s) Supporting Document(s) History and Physical [facility] QDBWEj3vUkKBUyXi80/EPYdhJXIuc0CqGUdnXZs3DDodPBToR7DxVUG1sA8qHCD7YTyJPrNtVmIbJHC3 m [file] AgICAgICAgICAgICAgICAgICAgICAgICAgICAgICAg ICAgICAgICAgICAgICAgICAgICAgICAgICAgICAgICAgICAgICAgICAgICAgICAgICAgICAgDQogICAg ICAgICAgICAgICAgICAgICAgICAgICAgICAgICAgICAgICAgICAgICAgICAgICAgICAgICAgICAgICAg ICAgICAgICAgICAgICAgICAgICAgICAgICAgICAgIC AgICAgDQogICAgICAgICAgICAgICAgICAgICAgICAgICAgICAgICAgICAgICAgICAgICAgICAgICAgIC AgICAgICAgICAgICAgICAgICAgICAgICAgICAgICAgICAgICAgICAgICAgICAgDQogICAgICAgICAgIC AgICAgICAgICAgICAgICAgICAgICAgICAgICAgICAg ICAgICAgICAgICAgICAgICAgICAgICAgICAgICAgICAgICAgICAgICAgICAgICAgICAgICAgICAgDQog ICAgICAgICAgICAgICAgICAgICAgICAgICAgICAgICAgICAgICAgICAgICAgICAgICAgICAgICAgICAg ICAgICAgICAgICAgICAgICAgICAgICAgICAgICAgIC AgICAgICAgDQogICAgICAgICAgICAgICAgICAgICAgICAgICAgICAgICAgICAgICAgICAgICAgICAgIC AgICAgICAgICAgICAgICAgICAgICAgICAgICAgICAgICAgICAgICAgICAgICAgICAgDQogICAgICAgIC AgICAgICAgICAgICAgICAgICAgICAgICAgICAgICAg ICAgICAgICAgICAgICAgICAgICAgICAgICAgICAgICAgICAgICAgICAgICAgICAgICAgICAgICAgICAg DQogICAgICAgICAgICAgICAgICAgICAgICAgICAgICAgICAgICAgICAgICAgICAgICAgICAgICAgICAg ICAgICAgICAgICAgICAgICAgICAgICAgICAgICAgIC AgICAgICAgICAgDQogICAgICAgICAgICAgICAgICAgICAgICAgICAgICAgICAgICAgICAgICAgICAgIC AgICAgICAgICAgICAgICAgICAgICAgICAgICAgICAgICAgICAgICAgICAgICAgICAgICAgDQogICAgIC AgICAgICAgICAgICAgICAgICAgICAgICAgICAgICAg ICAgICAgICAgICAgICAgICAgICAgICAgICAgICAgICAgICAgICAgICAgICAgICAgICAgICAgICAgICAg YILwRYb2O5auLMUrZMDhIX6iKJg6Lo9+VLyCQeJqSXP2sxScwI7NPP6jg1QeLIclIDVdx6IwPSy3CB9W HHQgMKbmFC3TGXgirg5QECQmPGXagGSYw2plJtWfMU O3ZICgQzvdFN6UKCTvG6fwvkNgJRJgSADNZSowATPXRFrrXDKQRESfPEAlOjMvEvGfZXFjROVoYOBUPU 8EOaLuX4DdpP52VZPTKp0+OMhdbnZcCwfPKfL4QXKrb4GlHXu3UA0RVCIjOijud3EpNkKdDBREAOhfTA 1VTPJ2RBN3UUQxAy3HKEVdN986ljCrPT3XLc8OKqIu DE6mpc4JLbZrGGOtVmxNApi8ACjpWJ6DaLRoAVtGGeItCsahM8VyKOAiFIEpJnUtZBUkyQmnDL5ZTaVz TLPiCA4aGB5sEBBqFXR5BxYrULTPMV8IFEKvNFIvySZvAOZjTHGXMU9DUEkwXFA2KRVyniUzxEZaXYcg FC9SHYNotmCoAkMrTBLNDVr+Us7AEG8na6ZgPIeeUa UgWZ5sav1CEWsRWxYlX4V3vJNbU4B6ZPdcZu7LSNKfABViPhWeOXSTTCtzIS9YHU5fghS5HU0XlUKqVU GbSJBqmQCmLYw4U59wlPEvSDuqLS1IXSY+Immanuel+Dx4ZVDEjAWOaFXYaVqKtYKZFEwZwI7NfC0BVr5UyJ1 RkVY80jNdhlfJgUOmvZH4MJN3oZFCgAAPJOQ9XcUTj tZ2pjtAsBNQgSIIAIfQwP69pkBPnAUFaKMT6UAHcDk1ERHXiD9HmqaNfsAnbugChAESbVOOVGF2KGLnz mjKfhYFhpNvgBC22nQnsBE2FLp1TMiLqEW9woe7SnFAjNq9IUYUsSV3RHEDuZNZrXRGpOBY4SUIoExGx PHloUYVdVJGwSDV2BFKlQJUoJP7SUzKpZAHjBba2MB wqBQLtROWxdj4YWKTyKEE8NDdvOLOhICOmWFWmWOwnHFFjHKUtFCS0BOSjTIFpTL0HNzJeSENpRQV7PM RyRTZoKXNkrc6FYJKiRVIoLJH7QPYhPWSrLNIaIJbqXLSpLJN1UHD4TPZpAABsOR6MYjLzRLTcGFgmIe reNVKgJGNaah1TPOLvZWYhGsG2OjQgUYMaVAZoCWvb QBQnIVLlSkXgGJDuNLKrWC6TJhVcJDRbKKF4ESUgXYTyGXVqbi4MAJYfHTNeDQy2TPYuEMGqHDNiLHyu ZTIaKQQ0PxJ4QSPoVXMwHU6HEfFuLHWhZFf4HdQmRZXpEZTqlb0NDXOoSGUcVHM8HBYwAOWrMOVqUFjh WCObYQIsWfZiSCPhLSGxMI2ULgHyZBDxTuSxZfXvOC XlHQVask9KXTUbHQArWbWoLAKmMDLbZOZpWGpbWSFrTEVhKfRtXHKdYCYjLI9TUmAjGSCmTuT8OhEyNY WoUHLwij0YZWLvYPLrDur7YmFsTWBzTUOyHFwhZZZhSWHnJPHdBFEeGXOvXA7WPzBbWVWyFfA3ZOIvRA LeKEIcov1DKRBjRQMyLNGvMnUaOQQbRCBvBIvxCXDx PGX4YpebPVZxPIFpFK3HYaFsYEQdXtZjLHamOXYgFZEkek9SFDTmSURfCfG1TXBnUINiBCKkMXdnMXYp MVW6DtO7UKZdEMSpIS6UPkVcNDPiLlkaKjMyMYByFOOwjx1UBISmLNXwSMO4AjTvGEVfTNQfMWgwNWFh QWQ4SPWvTJBwXKOrNG4SUqQgSPEoOkr3BOTeKLBcFQ Tajx3RUMWlLYYyELvgKvRvDOVsULYfKZbkPOQkIQX0JqP4TBVsDDBtMZ3KJwAeRDXhFQR0FEKkJMDdGH Iihy5CKUIaWMC4AMknMNVqDAMtYLNyKXtnFCIfSTQlTLV3GXTbLCEsFP2DOzVpKZouIFAAVgy5OJfbD7 s7VRAmYF7RE7Uok4ZtPpyvYDDWXPpqAJ4ggnDoGTYu Ia1ML8cCOzr3ModvNSByRjI2CQK5TYQlZ5SeGiRoOFU2Ouh1GRD6Ap9dFIXoG2Q0AlNnETo2EEtzCCXk AzKuDWG9Gde5ULyvOXq7HaDoSC0SBk7TJbX1IUZ7xEGqGq0FHXAdBJsHSbXvVN3WJCj= ID Date Data Source [id number] 01/12/2021 11:11:26 AM EDT [facility] RENAL OR AORTA COMPLETE [id number] RE SULTInterpreted by:ANNALISA PereiraLINICAL INDICATION: rule out [...] Data Source [id number] 01/12/2021 09:03:15 AM EDT [facility] Name Value Range Interpretation Code Description Data Belinda rce(s) Supporting Document(s) Calcium.ionized [Moles/volume] in Arterial blood 1.75 mmol/L 1.13-1.[address] [facility] CALLED TO TUSHAR MCCAULEY RN ON 10 AT 090 3 BY [id number] read back ID Date Data Source [id number] 01/12/2021 05:13:00 AM EDT [facility] Name Value Range Interpretation Code Description Data Belinda rce(s) Supporting Document(s) SARS-CoV-2 RNA 2019 nCoV Real-Time RT-PCR: NOT DETECTED [facility] This lab was ordered by [facility] and reported by [facility]. 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 [facility] Patient has symptoms related to [facility] When did you start to experience these symptoms [Date and time] [Phen X] [facility] Patient was hospitalized because of this condition [facility] patient was admitted to ICU for [facility] Patient resides in a congregate care setting [facility] status [facility] ID Date Data Source [id number] 01/12/2021 01:59:22 AM EDT [facility] Name Value Range Interpretation Code Description Data Belinda rce(s) Supporting Document(s) Parathyrin.intact [Mass/volume] in Serum or Plasma 24 pg/mL [facility] ID Date Data Source [id number] 01/12/2021 01:42:[address] [facility] Name Value Range Interpretation Code Description Data Belinda rce(s) Supporting Document(s) Leukocytes [#/volume] in Blood by Automated count 13.5 10*3/uL 4-10 H [facility] Erythrocytes [#/volume] in Blood by Automated count 2.70 10*6/uL 4.6- 6.1 L [facility] Hemoglobin [Mass/volume] in Blood 7.7 g/dL 13.5-18 L [facility] Hematocrit [Volume Fraction] of Blood by Automated count 23.7 % 4 1-53 L [facility] Erythrocyte mean corpuscular volume [Entitic volume] by Auto mated count 87.9 fL 80-96 [facility] Erythrocyte mean corpuscular hemoglobin [Entitic mass] by Automated count 28.6 pg 27-33 [facility] Erythrocyte mean corpuscular hemoglobin concentration [Mass/volume] by Automated count 32.6 g/dL 32.0-36.0 [facility] Erythrocyte distribution width [Ratio] by Automated count 16.1 % 11.5-14.5 H [facility] Platelets [#/volume] in Blood by Automated count 388 10*3/uL 150-400 [facility] ID Date Data Source [id number] 01/12/2021 01:56:[address] [facility] Name Value Range Interpretation Code Description Data Belinda rce(s) Supporting Document(s) Albumin [Mass/volume] in Serum or Plasma by Bromocresol green (BCG) dye binding method 2.9 g/dL 3.5-5.2 L [facility] Bilirubin.total [Mass/volume] in Serum or Plasma 0.3 mg/dL <1.2 [facility] Calcium [Mass/volume] in Serum or Plasma 12.5 mg/dL 8.6-10.0 H [facility] Chloride [Moles/volume] in Serum or Plasma 100 mmol/L 98-107 [facility] Creatinine [Mass/volume] in Serum or Plasma 0.93 mg/dL 0.70-1.20 [facility] Glucose [Mass/volume] in Serum or Plasma 119 mg/dL 70-140 [facility] Alkaline phosphatase [Enzymatic activity/volume] in Serum or Plasma 122 U/L 40-129 [facility] Potassium [Moles/volume] in Serum or Plasma 3.6 mmol/L 3.4-5.1 [facility] Protein [Mass/volume] in Serum or Plasma 5.9 g/dL 6.4-8.3 L [facility] Sodium [Moles/volume] in Serum or Plasma 137 mmol/L 136-145 [facility] Aspartate aminotransferase [Enzymatic activity/volume] in Serum or Plasma 33 U/L <40 [facility] Urea nitrogen [Mass/volume] in Serum or Plasma 16 mg/dL 8-23 [facility] Osmolality of Serum or Plasma by calculation 286 mosm/kg 275-300 [facility] Creatinine/Urea nitrogen [Mass Ratio] in Serum or Plasma 17 [facility] Bicarbonate [Moles/volume] in Serum 26 mmol/L 22-29 [facility] Alanine aminotransferase [Enzymatic activity/volume] in Seru m or Plasma 14 U/L <41 [facility] Anion gap 3 in Serum or Plasma 11 mmol/L 8-15 [facility] Glomerular filtration rate/1.73 sq M pre dicted among non-blacks [Volume Rate/Area] in Serum or Plasma by Creatinine-based formula (MDRD) 89 mL/min/1.73m2 >60 [facility] Glomerular filtration rate/1.73 sq M pre dicted among blacks [Volume Rate/Area] in Serum or Plasma by Creatinine-based formula (MDRD) >60 [facility] ID Date Data Source 01/12/2021 01:56:[address] [facility] Name Value Range Interpretation Code Description Data Belinda rce(s) Supporting Document(s) Magnesium [Mass/volume] in Serum or Plasma 1.7 mg/dL 1.6-2.6 [facility] ID Date Data Source 01/12/2021 01:56:[address] [facility] Name Value Range Interpretation Code Description Data Belinda rce(s) Supporting Document(s) Phosphate [Mass/volume] in Serum or Plasma 2.4 mg/dL 2.5-4.5 L [facility] ID Date Data Source [id number] 01/12/2021 01:41:33 AM [facility] Value Range Interpretation Code Description Data Belinda rce(s) Supporting Document(s) Calcium.ionized [Moles/volume] in Arterial blood 1.77 mmol/L 1.13-1.[address] [facility] Called to and read back byMARK TRAYLOR RN ON AT 0141 BY [id number] ID Date Data Source [id number] 01/11/2021 06:34:44 PM EDT [facility] XR CHEST FRONTAL ONLY [id number] RESULTI nterpreted by:Clarissa Villegas MDPROCEDURE INFORMATION: Exam: XR Chest Exam date [...] rce(s) Supporting Document(s) ID Date Data Source [id number] [facility] Interpretation Code Description Data Belinda rce(s) Supporting Document(s) Bicarbonate [Moles/volume] in Serum 21 mmol/L 22-29 L [facility] Chloride [Moles/volume] in Serum or Plasma 97 mmol/L 98-107 L [facility] Creatinine [Mass/volume] in Serum or Plasma 0.96 mg/dL 0.70-1.20 [facility] Glucose [Mass/volume] in Serum or Plasma 114 mg/dL 70-140 [facility] Potassium [Moles/volume] in Serum or Plasma 2.7 mmol/L 3.4-5.1 [facility] Results called to and read back by 10E Malcolm CHEN AT 2023 Sodium [Moles/volume] in Serum or Plasma 137 mmol/L 136-145 [facility] Urea nitrogen [Mass/volume] in Serum or Plasma 18 mg/dL 8-23 [facility] Anion gap 3 in Serum or Plasma 19 mmol/L 8-15 H [facility] Osmolality of Serum or Plasma by calculation 287 mosm/kg 275-300 [facility] Creatinine/Urea nitrogen [Mass Ratio] in Serum or Plasma 19 [facility] Calcium [Mass/volume] in Serum or Plasma 12.1 mg/dL 8.6-10.0 H [facility] Glomerular filtration rate/1.73 sq M pre dicted among non-blacks [Volume Rate/Area] in Serum or Plasma by Creatinine-based formula (MDRD) 88 mL/min/1.73m2 >60 [facility] Glomerular filtration rate/1.73 sq M pre dicted among blacks [Volume Rate/Area] in Serum or Plasma by Creatinine-based formula (MDRD) >60 [facility] ID Date Data Source [id number] 01/11/2021 02:43:27 PM EDT [facility] Name Value Range Interpretation Code Description Data Belinda rce(s) Supporting Document(s) [facility] IMREIk0aJuBLWyYdp5UaSfCxIGYnWT5bfzo7V5L0fVPlB0SmnNYho2gdP6JhI7PcUZLzYELBPY2IiCUt jb2 [file] [facility]/WY7HX+4LC0GIsoS6lXR/0F5uIxw7f4bx7sN8kU rfQcwb2m2y5Vc/9Lz0CO+1/DKjT8f6NFkiDOHSQT8rfPvrHW02MCQL5U6VPpy4r/mB7/N//4I6bZ8Rn4 3hH0URQgee4PUiChy231UPNAWUQhtyR9eThCpzN6oLChCA4gNSXDgIVwwWwubrc5GGGB3nT7NX1Px8cl 5XNuRsOCyLHD4uMB7mIM1UY6iIRWj7BeIGwnbBtYfb EZRdfgaeGN9bD8Ooy2APboYTrtxKejwwrWTBvn4UIA9sSa2CRG4oPF4QKrE4vMD+KEOCVOiTPijMpJdg hgLrLsM5uVNUlGFgjnBacpTtvrKFkYS1rKbTPFvkbv+X0dP0tECR7xH9C0MEQFgO8jXS1DV899UNQ/Ruiz [file] Lakz8vlrlbQcOCzQHpIHKYVo2H+eiju5EVVzwGYOk4+1jjqxccxdi7ld8xZ/91H/+JN7XN/DARLEEN/zkHshP twSiWri4hDZLIvR6kl5YJqkfCW/isLBy5CmAaj8P59 v1haifi54+6zncrm9M54s5eydgd2K+Nnngc0268wkxaxlnf1X+Wmjmm6323pqhhgqqn4M+Lntll31742 tawludm7S+Borae8139zutkoaam0c+ckqed1293lxuboshp/vaVTtpQVqRbkjbk/72J/xNL7OVD/7jT/ Ydp52+v9dM8hC/ExNrUJOGAdqYH6SN2AX2Pp2D1+q7 64gjZQm6Oo3EMf83MWZY+DO3Ga5OjiCtw822K/s7z6mteChOTz/o9mK3lfLlKWn9TyWVh1E203JOjcfg 4NoGF1G8NlFZYA+J7+130saSomfGuijgsY6I/1zjzxTsy5jY+ofjG0775hhs+p40+L17Cq7WXh/1wPOt qK9F+k3PEN3nEScx++mbQle29XtoOb2lZg2wb/ui0v P8RL3i/wZ/Ra8xZi76QvlhDtfv7IsVu4/tOvPS0Ksj2H4W/9fwfw3/1/B/Of0L5D5N4fnApf2h2tL/De 7G6V08wzop+N8m8Rd5jG+u4DfwG/uRanIy0Zt5wtbJ57ldhftt6wm213qAa+u7neHs+9lrNgEq89bUI/ Z7aygOlC7cFDl7FQ/A3/WdmfZKN/Ab+Vaughn+34XBpwI8 8B3PO/o6wde53/rBFcu3jj3Kt0Po+qz+3vF/O/pvR/8dV/WLcVW/GDEzBF/Pkmtrttk2uVg082tur8/i vf6vLpSjxWphto/9N9/d/TfzHMh/gD+Rz+6/WeZd3+s3Z3A6SNu4Bkv5QQ/BP6wMeb277M1x+u+M/hvP 7/pkGN42KG/dC4fdFe6u8Z/lUV0QJi8GwlA/4f+uq8 jVRKjTaZ9g/TjmBmt1BFbkosQ9cMY+P819pML/H7hyAhOAGJMt/MDzmI/Pgs2mY7gW32bvd/y1Lwu9+k Vckt/6T1DylSM8ubZD6fls04cAL4zfj6zU1vMke3PV5h7u0MlPuniHL7IyX+4LQs/zHeUcT3/zj9VxGk /MEx8snoBQAr1pxC/9ah+e3Wl/2jkA2314Ti/t0Vd9 6EossfFGV3lou0qp68Ez4gSieg4rUW2MJ402i4vzF2tT9ZrjuP662u9jn4dsutHqSV6/t4jL1rnZJeUx snfVDZ2z45PBtxQ71pV8+rIyqemKSd1A1/RztI6960n1NcVjdyTx5356c5fAteEqE25k0XAq0fY8acYb 7LgmlgezJ8ph4R2+ciNfZCvVf1Z++sW++FPpp1/saz +VBn/i+Su5Fakr+Fu/paPw3Cli2Dk1Ky3V89Gt4Jk9fl/5PGkHv/CiOb7q6+NF3Ej5rF/3b2303wdQep Js/UpOwIwqT+hXJ/4WGcd89TtVk3D/PuqsAM8RsU83IkPXPW0CiR51NhR9gyv8O5d4OfqugC+nnd48hn 1H+xnPiuKIt7GfA90JA/L6YZ0kMl/v+hblXWKq0Kf+ 8ny3odHXo+C7E9+d4C/wV+Anhd2rm6oQW67tl66m47wx+CamA036Zc/rr5bfrILg4DX+ZjHaxC4a2S+U H/XtC8+XvqGhXwU/9KtMC/f5c1Aq4dj4/+pA/c78OjjDPooXJFp+g+/gd+KG1Ln8n/gRlKmDdeiXh1Ca 8y5Oy8N0X0Xtvi6w+xNnLM4XtRyOa2MPysZjA9Skan vycTyP/lcJjfy316V/pHhNfL9GE/WdqG/lTsAB6c5Qt354mdwU78M9YcALvuRh0SxASYjZB+TVtwb1OQ 8t/N+F+NanIwqRsueDz0OQu/VCu6q++26Zfjpxc85hoahg+xAAEt7MG/ANzxvycfAd/A5+B3+AP8Cf+O 3Vqxa1zY/VamMim1hQVn8YQ/TLptshcMg8PXjTA1L/ ymDsz0w6Yg9qhb5rcTSc0Nj7X66mQ0Efv/0H4yzrO7o61HbgN7yug3h98I3j6w3voiGzImdfRPdvR/hW 47939Fs5+F4yPIUOw34CxNWqqhIsGaQ/1eq/TWs+qnKuav8iyK49rwTU+pVEev/hb45748Q6E/3qpDc/ zqvQ5oTm+Aa+g+/gd+Tf8d0B/gB/qfy1aycz3IS/sk w/+m0L/zdkqF9CsQw1MaX06Nxr7AoD15i/rI0LuhXlhcjlrZnoHxht9ihccnrz9YwQqcioS/AX+Kivo7 4gN4XbqrqVjeYdGt2ilOL8t/WUzECweSfzJdwK9aOHgir7KhVsGxFmjyEUw0eu42Berql5PuxXWdsgcz 5rYb/aa7oG+1WD/arBftXSfhXP7/77Vp53FaMl/7aw X+05zbx0CqHC8Y+rsO9vnpTdx0vJ60rufp18P1zuIgqemqw16a1q0fyq4BCxN9u6g0u/qbrbAnw4QKt8 6FvTohx8nqkCc6K+dxVh2Rn/40g20s14h/4j8wC7wZaOz74/n7c0jf0xOkQ607R8FS1swpj+zXLSdo8x 0FqrdG65/Ngva10sfdQpcuen2e91XDrl6muWdv63h0 AljmzeCseRfHOOu1tT/vaughn/ijVvC/7b0ZB4tUz3+rQnXlOr5Z+Sj/P54M3It9m5IjwTfyr312u/O9GeYb 2xfH757H2c2Zks3jfqfW3VQa/YfGNa2Xs7Fn7Kc1Hm3Om2pD4op0TAbhT+C/VdqO9C/a485yDRz3v3uv jlu7Xdvh2z3tqmogV0Wzl5k9gWK7QMvqV+qi5v0dQi a3y2q+yxdnXwO/gD/AH+BH8i/4Axuk7I+kqNzyaob+bROmC9N4gOijCooL0agiyGVu/Bd/A7+B38sD/H twb4qK+tybW2dfh+7d4gzyMooKQ9LU//V/F/Ie0B5luHXl+cYbp6qX4S1/P1r4Ng1lg65P9LSWJuCB+S c253u2uJgypQjrYF8ZP/wv1M6Xk75vPd/mQbD984wg HQrJZUfUmfQSzbyHv1RzFE0e45kb2/XrwJryziyOx4zwEp89hm6Ag8ha86H0a4pK6yzO+ZNeRjyMcefc CsxitL+7S499WJk7mcUCgxWwozPpm9yxjGpe7iGWUJWvv4P2tHo/2imcW71ypCc70dX1mvY7OD0L779x W/Qr+U3oST9rdjIUsAcw68dMt8EH23bx99ot/7Zea1 HrRe61/rF/pnj6UtZ8A3Pa999LMYw/MMFvpVyKrXfreFfpVpB7/2U6zX/r712v+12B/Dtn2bJ650gU/g 4/+G/SrKP8r+bKPW+fBne1yQ4cWO/x21/rVR+2Y1zl5395V15877507N6DV9oNpmGLkvFZ6W5Hwe+x9H hqP2j/tup4nd1tzrfcdhLy3WBwmvBrkdYy3MR178Vk Kv3tc+XgvN4O//v7MImcpk8cs92+E19jXQeh5S/v6/wqfq9MC/BNy8eqthbNC++v++6nHkOfF/Yb8y7A /awnwU+jTvV6xyRut13Rm5fi26x9e0yUod63QfvjzkC6/2Iej2JlbRtwo7Gz9L/Sr6e+gBZgXXNsly5B 8buik5sft/HvrVST/zmod+tcvgV+dapzG54LX/inTN R36V/czGm0fh3x/aP/INr7c241rKK440+J814XuUwld+W+lqaxa5E/qIs7zQa4Un/ssEcRkrt19gFiQ0 h/0DSm4cJmLMF6p7NjsDpo/hjaPets7K/AH+XY2T95214utgtf1HxbY9Wqz5i+Q4f+DmP6sPr3ZcmI5+ x27xjZoNyF7uNTzfD4mz+qVIUb85JF96Dc1JVdvqJh ho3T1naCm725kA+lxu51kh/16e1nxsUGHO83cbi02jD+JH841FgUH2wU/ZoQ8SCkP3Omi7Dp489a1ShW Eya1/P8FlOjE4ebZZp2vivOQQq9jaZoYlm1cA1Oimq2hqGv4O/w96fHGq+iqHdIs/q9Rgnlzm8N9Rb6/ IYe9n0n8l5n3j6/Rtys+uxD+g9NC2k39z+gtGukKeh /7rjM02GapE9uWC77oqr/0laM3j92kN/NbRnq/nIreYjz/GYya2895X+ynH+ykO/5lPAz22v0IExQn5j C/gKvoLfwK/lRO94hhCh/YEtBZjPi9EirM/3s9ge32Rr5myy549kjgVc12Ss94aQe/CmoK0XF+6lT3rY r04a/Dwm52576o1lb3q38Rj3k/Ad+AOh59SlfM3d/9 Invdd+xjjx4zr2E20E/oKP2i/qRbfbBqtv2QpwXqeB0vwd+S77a1R53gyEd2zv7NR56E55xtqDqR0DD/ 0q/mCuQ2jg9M/wS7/y0K/pD1DITc26VVGdev4vmW/p23Ha1KdcF3giZuZL/prBc75E7tyUs1Swhmvlk6 pxO/GyVWeIr7NJs4r/mfi/lG5ifShML/mJv82hsP70 ot4K5xE1PF4zw87XeATe/Ctfza1jCT27mvL70guQ1lUFfwA2pc831oS6Gfkq+U8cELnwkU/T8ZCx45Yn h6c2H9kluj6uSlSOkv8wb5018S/7VfXtV+0f9Th/4xO4mChvD54Y/yezpn9TK0wnh55Mz+q//BJiR77f yGdcSD/9ad88Fdfogh/Ar/cr85j6tybzwc4a74n23G XOt+cziucV/HbVu+1Wp0Nj2HIbZ7HpQt/3C2nwB/pN1VxMEdJ/Al4mncoOsgA2fD+poko0ZwtrmX/WfN VcvmQnRGha8ThYT0mKaVD0uu/JT0736duV/AV+xJl63GsKjq95WwRi3Y0cd8L908m7HQgt7mm9/JdW+6 V6nsDF6d9/7Nt+FX2wb/wH7xIau1kodu/7VYwnfduv uqO75yyDlmeh39UWv/Pt8Yyh/xq0euy9Hn6Wv0182NLTz/aPuqG+HctVg1iQlhL644S/5e0L6ltH+1XH 2dyx6dmI1FjLPfQ6NDykU5mYgdY6mMk94t5Yfzur3bq8u/v4J6f59N083JkIj+Z7di1ayMIQE/u/PexX WZ46/2z9oHl2/u0+wV/itp0345K/000hwMkTy81lo/ ud36LN8d56unK2Fx7nmVG+Wu4T52WO/ZRI1/r5a87Y4Qy+fVtKghI0Gd0z8/u4wK/cYk8OhbX+FHwFv4 HfwDfwa/7xN94O6pDMz1UGq/kvdkBCsCig4Rf+MB+XKI1Ez5FyBpdE/Ea9NhwG9XiVffBE2d4r1Us63X tM1/5vn3V+o89aL/RZ+mSftX/Eo40YS6E3fL/l3mW/ 2qu9vGtQk+fccr/8c5hKvyx/rV/lmeR+81g4luf3jqJz6L5kU8yJcwp533q7dn89nkHk7t4oVjcldizn /d++9yf206b5oH6mrj+5q789ij3/R9nWPv+aoj0hqlVT8gxYyq2yy88K48v29hWRoIMgmjb+nQ8u2yE+ bbdf4lbdL4H29DQp4SjPWAogY05Qc1e89ebUUQqQla nI/cFMP+DESVnIL49x+Yned63oGFA/k1Xf51DH/zW5IKihu4+m5S0zRfl0kMowLq7t/l8NyEOA/NpPGW m/zwB3kUrSjd70wUIGp9M4CECvyUH/9o+V9IxKLFWxXVaR5+D1qTtfspD+QHkmvjtRngV+fs5o7CpsRd X/jf3B+KexPxj/HDIT6jzl7cg1tMm33Mh8agE2IDL/ MNMOvoPfwe/eA5Gl2fRH8oqH1B+rEToZ60efN+02pmStk1rfB9X9E1/awNzxyah01VdydhH/iNnZ46B4 8L6t0mujL1+Av+jmFA8Hl/LFKcsWQ4123F69gjIVqMshA/8N+1WmG/gN/DalI2f1+8McfAe/g4/2bLUf Lkv9LgoHNr0lvgr0qzXe/mp4zb/Da/6hFaDd9Fk/hy x6Dq0Lm0Ym2Pp4Zo0Q77lM+phidP65rI66nZCD0NnqFQMSP6vadLy33p5Ck2EAkEP+fYR+0YZa0pi1Xo ASucww8c7jh5s3I0/PDAbtQyddE7b8I+rbJ/gT/AV+6R3Gx886f4MxC3sb90TjSByI5pA1ISAm+AZ+3a cbo+7TjeHgd/A7+QD5Bc39u75JWgbQjy9HoFh7AZK0 B8es/y9f7X3hfjapX/XF+vKpuy50Ir5RRjmrJnutXeoTx/aM8+9N5chQDTnYhS4hg8Q/wK/9lLHQnhfa 22I0mK9nTYNzmdAVxGkO9+0agg8e1TYq4Lef99Ux/bHK/uaL0Z0O7W+01lON3Nrgu/SZI3narw53rh0P M+0LD83BqS+haX2p8bY+Mp7Z+bZVo1i51bAVa+A38A 18A7/aN12uczlT6D/zBugdcsZ0iChH/51X/p083nafZfQqqlelnkohS26z+XeGfrXnuCk1/64YAF55lm HfvN7d/1eCb8+5J1MRL5/Qr/V6ie985Tm3kO2SjbWsGF4s2bCu8Nu9Hiuo551bld85oyn/U+u+81QFX/ F8Qz4N+ar6dQaBzi2/Td7737hvv3i3x6Jr/06t9e/U iecn+Gl37s4c8YpXgfnqnGB/X1hxYYJG+ZhB9f9KaN41ascuk9iQxqT6Rx6g+7+z1Xg1W+6YaKu66sjd v2y2Wv/ZNjPhtRcnGI5J2+l5kaM8mbFps9cN0sLozf56co2rxaT2/b2QwFhsm98+Yb+b3G4s9pEkkw7i 9gJq63ugsdxcnxgpPuk+I3tYrvN7+ed8Zp9/7pHnPv 8c/kfk0c6qkQWq55vHTl/wlie847Xlyr//Xi3S4O/170k/+5QE1jt9dh5FybVS1+ki81y6A83PWWFXs/ Ad84x7e2iyW48p5/d57+m7vjEO+F7/Rr/wff45/bacL766x00O2+Q21hrV1wihYu55z92YLy095rvzk3 g66ZRnR/RXb7f5Dzf6qB+r1Y6iV3wlfW+02K2TMW80 Wv/EEiWm7P/wS7+j8G9j2ixq1rfuTF+MpsYeX55qS4bg4U4S67wB+tXE/cGJ+7CL9de2HF8M1R/QrzI9 wZ/6pv5rrAQ9xP+KUNl4HApaT4mZh+YsfWNOBb/h+QB2VVrmh9hB7n77LS1ggIeG+faJ8+1zDvAxPk+M oaVdU857u8Q6fhnyK30emeAR9yRY+Ten7beHh9+cb5 027r2pyl9bF8/Bx3yE8+0C07grfdiTcJ+tn0K4jT/j/NV+Ju8D58Nt1Nz2Zx4Zf+V26Jw4Ip0XW/VdV9 A0HY04Nl1Wqbb26jwc/x2tO5jRMd/r24Bir7yc0Ru/k8iox2aM51YI1SoQomv0JesZQff9C8/Bd/A7+B 3fHSjPAH/iedRXyj/SklofLS3/FGmy0YK7AS/1VdQX /q+URfcemGhicZR5J9+M53Dj1wQEVe9O4pB0RM0hv0ithyrmawtET2FqbC65Kw4k6Z6H4DaG/wyrGfI3 5O/IH/JvyR2ZcpKkkJt8YxVK+tVqC+Wp88/Uid52pB7VK/i/WvB/Declan/Jacqueline/4rWP70JdF/AN/FoPLqv9 /IQ6gLSriLCSMJ9AkK41Lgghj/91/F+/pPjl8G6urb 15zb/O4O2o7KH3V6/9lAX/Vwv+e8osgggrPmbsha+r5XX/r6hrd9hel2u06w89vfve/UNV34nc4tjqz/ +m1IJ1HO/BV/Ab+A18A9/Ar/8m8Lk7h2N+fXW0Z+hVp2o5S4G+jxBpKsT3z9L8nZ/XqPXvGrX+XaPWv2 vU/d81yp/MGnX+oE2GqsThuVudVepv/56I2e7U/gC/ 7uOs0K/8JndD1v1ie/Z/36v2wazSwTd47q2OvqAyznyhR4eRdQi610SFt/OP6v53f/RYqJh4ZqyR/gB/ gj/QW86esxxNwx6kUv8zYp8bd/uM3pC4bfDdNs81zJY9S3JniQ2YfMpw7cjvl/WBq9z6q65i37xX5vfw /glost tile sorter/U6eQitKNdIRmtYiE6+Xl0Gce4df+RM5sWF4HB NL2wHBLPKo6xBMXvhczY2ECsr2X0/wiEM9tpSo/QsfNvQ0omh19gcHO9B4qYpv3CEBTN/bS+LdXW/Czz 9u14bnhuv9Qs2IrF6Koe1wo4c4b7+WIuDWqRzA3P7X7Xuou9mdIe5dUO+7jlcIf3Ay+6yJxrFXzBiV80 XKuhADQ6TxqlTwbZ+sme/FpjvIPHtclXNCFeDtqT9f h6+5qkxytOu5AqhsZz3X3rn3E2LMzCDtw+km/YejX5Xem4Zp0ZQuv3/Z24IpCBrpG/X98BmHmmO6UECO nI7vGcpefNA8czZ3Mu0ovL86eNfADHReErPE0ANJe1TEYuMPz+Kjxof24HpgXShVRRi5NOf3ArUKfbiJ y22npNUx2AVp3N2RYmagaUkStjOGdkJJ5uL/Dy/Donald CO8mfwxK9wclGYdeJKUcWCmyw48wCsnfNHroExIrMZjqOJ35oSf3Fg5W7qM7S2JacDnPAodxRLaYHqAv 4BEkiQzARkTj4wGyMTsFU+A9k4dcFiZAF4fGw6PmHKOeO20ZuYS5DLDR2fW0py40C4wWTI8+U657UWnL [place]+tw/Pa1usljyO76tT2sJJ1Fets6RDBB+H7ljHln [file] biAKMDAwMDAwMDUyMyAwMDAwMCBuIAowMDAwMDAwNj GfFZGnFHEeVF3bKhYrTLPwRIR2COKwCQPmHUYuvfGKJPGvYHBrUXn3NXBoWVJdXYOaPWmtJAJhVYAqWB M2CSRxFAKvJB6dWsUjIJStUVUlVWTjXHSvNBJredACSYErGIOnYPN4SOTzYMObBEUkYIelWVLeHKYhBr p5PWErBXAiZF7rXdWcOJSfJVD1GZBkLPYvQRGqubAK EPFyUMT5Iwh7XXZeZRMqTXKmLQraTBAjLDJqJpW0XVNxNBFgPM9iDtGpBDXrSLW5VeMyPTSuAUUzleBX CQFtALBsLPB3JvLwZSJdFWZrGYvnLSYeOJUeWCYtWSU3UEA0SZUcJkFpEOdhJRJNERfKG6UugsBpHaZE Y1igGy2hHqCdSYPPM1Gnu3SdTPJvKZMYWl6+YlA6AFU9wOLrGer3QYB1JlztVWZETf== ID Date Data Source [id number] 01/16/2021 08:30:45 AM EDT [facility] Service Cmnt XXX-Imp : R HANDMicroorgani sm XXX Cult : No growth 5 days Name Value Range Interpretation Code Description Data Belinda rce(s) Supporting Document(s) ID Date Data Source [id number] [facility] Interpretation Code Description Data Belinda rce(s) Supporting Document(s) Calcium.ionized [Moles/volume] in Arterial blood 1.88 mmol/L 1.13-1.[address] [facility] Called to and read back byTahir SANCHEZ RN ON 10E AT 0007 BY 1521 ID Date Data Source [id number] 01/15/2021 09:50:27 AM EDT [facility] Service Cmnt XXX-Imp : L HANDMicroorgani sm XXX Cult : Gram negative cocciin anaerobic broth.Called to and read back byHuong Hanley RN on 10E at 1452 on 01/12/21 by Vanita kaur anaerobic broth. Name Value Range Interpretation Code Description Data Belinda rce(s) Supporting Document(s) ID Date Data Source [id number] [facility] Name Value Range Interpretation Code Description Data Belinda rce(s) Supporting Document(s) Ammonia [Moles/volume] in Plasma 28 umol/L 16-60 [facility] ID Date Data Source [id number] 01/11/2021 01:14:[address] [facility] Name Value Range Interpretation Code Description Data Belinda rce(s) Supporting Document(s) Lactate [Moles/volume] in Serum or Plasma 1.4 mmol/l 0.5-2.2 [facility] ID Date Data Source [id number] 01/14/2021 08:02:[address] [facility] Service Cmnt XXX-Imp : NoneMicroorganism XXX Cult : 30,000 col/mlEscherichia coliGreater than 100,000 col/mlStreptococcus mitis group20,000 col/mlEnterococcus speciesATTENTION This species is always resistant to cephalosporins, aminoglycosides(alone), clindamycin, trimethoprim, and trimethoprim-sulfamethoxazole. Full workup of above organism(s) has been requested byDr. Elba Mcgee on 01/13/21 Name Value Range Interpretation Code Description Data Belinda rce(s) Supporting Document(s) ID Date Data Source [id number] 01/11/2021 01:24:28 PM [facility] Value Range Interpretation Code Description Data Belinda rce(s) Supporting Document(s) Procalcitonin [Mass/volume] in Serum or Plasma 24.13 ng/mL <0.10 H [facility] (NOTE) < 0.25 ng/mL Bacterial infec [...] to sepsis/septic shock. ID Date Data Source [id number] 01/11/2021 06:22:[address] [facility] Name Value Range Interpretation Code Description Data Belinda rce(s) Supporting Document(s) Magnesium [Mass/volume] in Serum or Plasma 2.0 mg/dL 1.6-2.6 [facility] ID Date Data Source [id number] 01/11/2021 06:22:[address] [facility] Name Value Range Interpretation Code Description Data Belinda rce(s) Supporting Document(s) Phosphate [Mass/volume] in Serum or Plasma 3.9 mg/dL 2.5-4.5 [facility] ID Date Data Source [id number] 01/11/2021 01:27:59 PM EDT [facility] Name Value Range Interpretation Code Description Data Belinda rce(s) Supporting Document(s) Color of Urine [facility] Clarity of Urine [facility] Specific gravity of Urine by Refractometry automated 1.009 1.003 -1.030 [facility] pH of Urine by Automated test strip 6.0 5.0-8.0 [facility] Protein [Mass/volume] in Urine by Automated test strip 30 mg/dL Neg ive [facility] Glucose [Mass/volume] in Urine by Automated test strip Neg [facility] Ketones [Mass/volume] in Urine by Automated test strip Neg [facility] Bilirubin.total [Presence] in Urine by Automated test strip Negative [facility] Hemoglobin [Presence] in Urine by Automated test strip Neg ative [facility] Leukocyte esterase [Presence] in Urine by Automated test strip Negative [facility] Nitrite [Presence] in Urine by Automated test strip Negati ve [facility] Leukocytes [#/area] in Urine sediment by Automated count 94 /HPF 0 -5 H [facility] Erythrocytes [#/area] in Urine sediment by Automated count 8 /HPF 0-3 H [facility] Leukocyte clumps [#/area] in Urine sediment by Automated count None [facility] Bacteria [#/area] in Urine sediment by Automated count Non e [facility] Mucus [#/area] in Urine sediment by Microscopy low power field None [facility] Crystals.amorphous [#/area] in Urine sediment by Microscopy high power field None [facility] ID Date Data Source [id number] 01/11/2021 11:00:[address] [facility] 5.8Serum levels of PSA should not be int erpreted as absolute evidence of the presence or absence of Cancer. Results obtained with different methods cannot be used interchangeably. This method is manufactured by [employer] and is an electrochemiluminesence immunoassay. Name Value Range Interpretation Code Description Data Belinda rce(s) Supporting Document(s) Leukocytes [#/volume] in Blood by Automated count 19.4 10*3/uL 4-10 H [facility] Erythrocytes [#/volume] in Blood by Automated count 3.07 10*6/uL 4.6- 6.1 L [facility] Hemoglobin [Mass/volume] in Blood 9.1 g/dL 13.5-18 [facility] Hematocrit [Volume Fraction] of Blood by Automated count 26.8 % 4 1-53 [facility] Erythrocyte mean corpuscular volume [Entitic volume] by Auto mated count 87.2 fL 80-96 [facility] Erythrocyte mean corpuscular hemoglobin [Entitic mass] by Automated count 29.5 pg 27-33 [facility] Erythrocyte mean corpuscular hemoglobin concentration [Mass/volume] by Automated count 33.8 g/dL 32.0-36.0 [facility] distribution width [Ratio] by Automated count 16.2 % 11.5-14.5 [facility] Platelets [#/volume] in Blood by Automated count 438 10*3/uL 150-400 [facility] Differential cell count method - Blood [facility] Neutrophils/100 leukocytes in Blood by Automated count 86 % [facility] Lymphocytes/100 leukocytes in Blood by Automated count 6 % [facility] Monocytes/100 leukocytes in Blood by Automated count 6 % [facility] Eosinophils/100 leukocytes in Blood by Automated count 0 % [facility] Basophils/100 leukocytes in Blood by Automated count 2 % [facility] Neutrophils [#/volume] in Blood by Automated count 16.93 10*3/uL 1.8- 7.0 [facility] Lymphocytes [#/volume] in Blood by Automated count 1.07 10*3/uL 1.2-4 .0 [facility] Monocytes [#/volume] in Blood by Automated count 1.11 10*3/uL 0-0.8 [facility] Eosinophils [#/volume] in Blood by Automated count 0.02 10*3/uL 0-0.5 [facility] Basophils [#/volume] in Blood by Automated count 0.30 10*3/uL 0-0.2 [facility] Nucleated erythrocytes/100 leukocytes [Ratio] in Blood by Automated count 0 /100{WBCs} 0-0 [facility] ID Date Data Source [id number] 01/11/2021 12:26:47 PM EDT [facility] 5.8Serum levels of PSA should not be int erpreted as absolute evidence of the presence or absence of Cancer. Results obtained with different methods cannot be used interchangeably. This method is manufactured by [employer] and is an electrochemiluminesence immunoassay. Name Value Range Interpretation Code Description Data Belinda rce(s) Supporting Document(s) Albumin [Mass/volume] in Serum or Plasma by Bromocresol green (BCG) dye binding method 3.0 g/dL 3.5-5.2 [facility] Bilirubin.total [Mass/volume] in Serum or Plasma 0.4 mg/dL <1.2 [facility] Calcium [Mass/volume] in Serum or Plasma 14.0 mg/dL 8.6-10.[address] [facility] Results called to and read back by QUINTEN ASHBY RN [id number] Chloride [Moles/volume] in Serum or Plasma 89 mmol/L 98-107 [facility] Creatinine [Mass/volume] in Serum or Plasma 1.25 mg/dL 0.70-1.20 [facility] Glucose [Mass/volume] in Serum or Plasma 118 mg/dL 70-140 [facility] Alkaline phosphatase [Enzymatic activity/volume] in Serum or Plasma 153 U/L 40-129 [facility] Potassium [Moles/volume] in Serum or Plasma 3.5 mmol/L 3.4-5.1 [facility] Hemolyzed Protein [Mass/volume] in Serum or Plasma 7.2 g/dL 6.4-8.3 [facility] Sodium [Moles/volume] in Serum or Plasma 133 mmol/L 136-145 [facility] Aspartate aminotransferase [Enzymatic activity/volume] in Serum or Plasma 42 U/L <40 [facility] Hemolyzed Urea nitrogen [Mass/volume] in Serum or Plasma 21 mg/dL 8-23 [facility] Osmolality of Serum or Plasma by calculation 280 mosm/kg 275-300 [facility] Creatinine/Urea nitrogen [Mass Ratio] in Serum or Plasma 17 [facility] Bicarbonate [Moles/volume] in Serum 19 mmol/L 22-29 [facility] Alanine aminotransferase [Enzymatic activity/volume] in Seru m or Plasma 16 U/L <41 [facility] Anion gap 3 in Serum or Plasma 25 mmol/L 8-15 [facility] Glomerular filtration rate/1.73 sq M pre dicted among non-blacks [Volume Rate/Area] in Serum or Plasma by Creatinine-based formula (MDRD) 61 mL/min/1.73m2 >60 [facility] Glomerular filtration rate/1.73 sq M pre dicted among blacks [Volume Rate/Area] in Serum or Plasma by Creatinine-based formula (MDRD) 71 mL/min/1.73m2 >60 [facility] ID Date Data Source [id number] 01/11/2021 12:26:47 PM EDT [facility] 5.8Serum levels of PSA should not be int erpreted as absolute evidence of the presence or absence of Cancer. Results obtained with different methods cannot be used interchangeably. This method is manufactured by [employer] and is an electrochemiluminesence immunoassay. Name Value Range Interpretation Code Description Data Belinda rce(s) Supporting Document(s) Prostate Specific Ag Free [Mass/volume] in Serum or Plasma 0.8 ng/mL [facility] 13.9 ID Date Data Source [id number] 01/02/2021 04:46:38 PM EDT [facility] Name Value Range Interpretation Code Description Data Belinda rce(s) Supporting Document(s) Progress Note [facility] NIPOIh6lGcTIBlHz61/QSGakZIQlq3PbNCoqPVk3OIcnAFHxM5NeMOB4eL8dPQU4LBwJOcDaCnLoETO3 [facility] [file] 3/6ldf3Oh+q2/VD3Lw8bca/julián/Dk7l4+bLVns+HJ+m8pan8GBcs/tEafLvMW++QA6BT7Mx0sDa5bx/P [file] J1Y2EeO3UoE7EeXZV3AgYlXE8VFk5TDcB2HSP2bFLrTl4SUvF1MIAWKoPcWE8NXJw= ID Date Data Source [id number] 12/22/2020 09:06:57 PM EDT [facility] Name Value Range Interpretation Code Description Data Belinda rce(s) Supporting Document(s) Progress Note [facility] APVRMy2mLfSTIaIq53/XDBjyZIOzv8AhRGdfXBf3VQfzHQNpN2NcZYF0qP8pUND2MBpJKjBlAuXcYNO8 lbm [file] skeet operator+H2TeDZaP7Jk8bmlkev6mqGsd7PBhXdT2pmbNgjlo2SyxtDrgf34Z5BJ2tJf1K7RUe3+j1/lgF5jq [file] LW4QPCODL1VYHs== ID Date Data Source [id number] 12/22/2020 09:06:52 PM EDT [facility] Name Value Range Interpretation Code Description Data Belinda rce(s) Supporting Document(s) Progress Note [facility] NHSPOd6fNbEDBcXp49/SZVkwOBIwz0QlLSjnKWv6RDolXMFzS8QcJEH0kM3sFKZ0ENgWSiMkMdDcIHJ6 lbm [file] mGmD5N67WdljvckTJxLdYRkzUcL5M5TFJ6FqTSMyI6IQaNy5c4EIWgyqViM9FDIF5MoZlhHzsXbW/+MEJÍA [file] AgICAgICAgICAgICAgICAgICAgICAgICAgICAgICAg NNMwVKXhYFQnCYCaFNSkERIqNHZcFEYfUEUhPLEqVTRvODFoAQUtZGPlMDHtUH0UYJHxRNZyKUOhASBu ICAgICAgICAgICAgICAgICAgICAgICAgICAgICAgICAgICAgICAgICAgICAgICAgICAgICAgICAgICAg PFVsNNHnPORnZTLvWMYfOHQxFTWeVDNpWEIrML3VTN AgICAgICAgICAgICAgICAgICAgICAgICAgICAgICAgICAgICAgICAgICAgICAgICAgICAgICAgICAgIC TrPEGoKLOjWGJgRGZgZSIgREPdBJMiJJPvKWUgFBUjUJKeLRYsAI7JYIKwWOSpNRBhKKNoIWHbKPVtZJ AgICAgICAgICAgICAgICAgICAgICAgICAgICAgICAg XUPuKPXnOLRnAPOrIZDrOXGdZZBoKKImNHMgZYVnEEEnWNXyODOlOUXtGMXaAHSvWG9MNJPvULXzYAZy ICAgICAgICAgICAgICAgICAgICAgICAgICAgICAgICAgICAgICAgICAgICAgICAgICAgICAgICAgICAg ICAgICAgICAgICAgICAgICAgICAgICAgICAgICAgIA 0KICAgICAgICAgICAgICAgICAgICAgICAgICAgICAgICAgICAgICAgICAgICAgICAgICAgICAgICAgIC RlPEEiYZRoJTPhQKJsWQRbRBCfCZApLIXdOUFaDMMjQRCzKFRfTFLkZX1SUAOpWRQtIVLiLKSaIYTeED AgICAgICAgICAgICAgICAgICAgICAgICAgICAgICAg YQXmEVLqUDCvYIOpWTVvBYNhYHCqDAQyDTSzVMJvTRNdVYOsOKSdMTZmXKCkPOEkILOxVB5FCEQgMCAu ICAgICAgICAgICAgICAgICAgICAgICAgICAgICAgICAgICAgICAgICAgICAgICAgICAgICAgICAgICAg ICAgICAgICAgICAgICAgICAgICAgICAgICAgICAgIC MhQF1PMECfTYNgDSMiSDSiYBMoXOIxBUPzLYEkNUTbHQZwFVZxXHLaJEAqPNTrSYErRSYeTEPqNCArIN FrBYEzHPKpLRVnYRZoOJImQAArQZGqZRUlAXXsRDCgBKRtMPJdXRZwPJPlDJ5CPZOuTDHkDCVeNKCdFC AgICAgICAgICAgICAgICAgICAgICAgICAgICAgICAg LUTqPRYgSWKwEWZyTLKyUEUvUIOsQWLzWEKpXSDpNKDvSESbJMEqZECeOWHxIAPhYLPxPLYnAT4KWD13 pSXxi8H7JBLcGG6aflk/Ta1UGVwoekKqzDTkQG7LXyZaLA4khu8QCoXfRM6lyd5WEPyGBwVnL7G0sTBh GVLaUBONIiQxK30eFAptRz41PYsiLBJyUbSgVQs5Va 1RCwViZ6toMIVeRiB2KSMmKcKaIKyeCY3Bv1EngVMzUXz+Yo5DZI9el1QiZBhaJUIzXH7txj7KJIqTSk SiQ4UyxwW4MEEgVTIbYx3VJOKlJSNgfGFeIBWcMAOJYpDyB3PgpP54XAFKHa0+DQplbmRvYmoNCjIwID Now4KnHJs7VX8FQFQqEUj9aAOkQNCdU7Pyk1QpPd74 VBKpFsxjVLCuLPUUJMRwsoVaLC7qMVUnRM7tNR9qBRBuYUSmQjMuQTKPGU9TOKXtUEIyuXSeAXGjDDQU RI5TVNyzOMR2TYVdklQtsPOgXUmwGA8ZPLPwgjLcHQngBPOJHSo+Bi4CMQ3wi0JyPOuxIHQjLR5mhs4S CHdINkOlM1I4cHIpC7F5SLwrBr0CQYVpOPIiLFpvTU KIFMcxOK8NHH9qroJ1LE1UhEDkRVIuUIKivLAvZNv1I78yxIUwYMtoUJ7GRQW+Immanuel+Fr7LQKGoMHMqYX TeUcHzZVMCLmQkH8InH9YCw9EvR3VtUH56wVzwwgLhXWlfGX5TPQ9vOODoZMTNWJ7CsMUvwE4yjjMxOH MmUKKTYzTnJ84pzDCsLNQcRYM3EYTeGl3PITXbI1Du tfNxhBpteoAdARVqAIAREN7CATlsgwAmxXCpvTldAK52qMagKN3VIk1HLwAqRI0tjq3KtTJuAd0JXVHt Hn6LRRUwNKRrVJUwGXJ1WRPxJtBfACcfWHChVBSaKZE4VFYqAHQgRO8SIlUlEDMjDSH7GgYrDMQfJRQl mm3ZKLIxASWpKOO6BOTpUJGpJTQyYWcaKBCuQAWjEJ N0PGWpHSKzYH3ZDqMcBNIcULQyPQvtHKVbLPEldk1GMRWfVDYaLIM5JPPmJDMyEEFyIKqeINDiQOErJD GyFSVaJARyTX1QBzLvGWBjGVQ4WZDlNISjFKKeig5FJYUlLDJbXruaLeWaIPRgJAEcHVmxMRQwYRTgHQ l7RSQqDPQmAA1OXrYpXNMpEOSzYJFjHYMjHEKpzh4Q JYQgOJTeSWE9CaUbJJAgYQHjUUxhPSOyHXE9LnZ7TAFtSDPuAB5TUiYnWLNaLNT2FZNuLQMzFANiht9R LBVvWLCzOhJ7NhNkYVAxMZSxKWbbPHZpSRI8ErhvEJWzVWKuZZ1TDnFaGTIgKVV8KfpkWUVbQYDbwx9J NMIzNILpTddlDYFlNMBhDYTyXPvyCYAwXSW2Hzk9XE YpCUIlYO1KLzEcWXQpGMj8NRfpWOVnCKYirx1FMQWfNVPzPXV0YkRmUJNgNJTkJZc2zwYgyGMsDUm0VG 3WY8IvsiYfVzVIAu5Mk606KQIdXNYkFp7SR0naGz9dBBYbGQCRGf0MWNb0RXC5SUJ9RCzoJblvUEuhMk F1U8U5YHsoOMZmQMNxNaR+XOo8NtAdCEgkYOG2M3Dj RWH6OjceVMKmKLF5CUIcRnAiFp3qULRZEu5+ZKxxzSIptEqpPCCKReD9FIZ9AEqvYCOMMb7O ID Date Data Source [id number] 12/20/2020 11:50:25 AM EDT [facility] Name Value Range Interpretation Code Description Data Belinda e(s) Supporting Document(s) Leukocytes [#/volume] in Blood by Automated count 12.7 10*3/uL 4-10 [facility] Erythrocytes [#/volume] in Blood by Automated count 3.19 10*6/uL 4.6- 6.1 [facility] Hemoglobin [Mass/volume] in Blood 9.8 g/dL 13.5-18 [facility] Hematocrit [Volume Fraction] of Blood by Automated count 29.3 % 4 1-53 [facility] Erythrocyte mean corpuscular volume [Entitic volume] by Auto mated count 91.9 fL 80-96 [facility] Erythrocyte mean corpuscular hemoglobin [Entitic mass] by Automated count 30.9 pg 27-33 [facility] Erythrocyte mean corpuscular hemoglobin concentration [Mass/volume] by Automated count 33.6 g/dL 32.0-36.0 [facility] Erythrocyte distribution width [Ratio] by Automated count 14.5 % 11.5-14.5 [facility] Platelets [#/volume] in Blood by Automated count 428 10*3/uL 150-400 [facility] Differential cell count method - Blood [facility] Neutrophils/100 leukocytes in Blood by Automated count 87 % [facility] Lymphocytes/100 leukocytes in Blood by Automated count 6 % [facility] Monocytes/100 leukocytes in Blood by Automated count 6 % [facility] Eosinophils/100 leukocytes in Blood by Automated count 0 % [facility] Basophils/100 leukocytes in Blood by Automated count 1 % [facility] Neutrophils [#/volume] in Blood by Automated count 11.06 10*3/uL 1.8- 7.0 [facility] Lymphocytes [#/volume] in Blood by Automated count 0.82 10*3/uL 1.2-4 .0 [facility] Monocytes [#/volume] in Blood by Automated count 0.80 10*3/uL 0-0.8 [facility] Eosinophils [#/volume] in Blood by Automated count 0.01 10*3/uL 0-0.5 [facility] Basophils [#/volume] in Blood by Automated count 0.06 10*3/uL 0-0.2 [facility] Nucleated erythrocytes/100 leukocytes [Ratio] in Blood by Automated count 0 /100{WBCs} 0-0 [facility] ID Date Data Source [id number] 12/20/2020 12:37:00 PM EDT [facility] Name Value Range Interpretation Code Description Data Belinda rce(s) Supporting Document(s) Albumin [Mass/volume] in Serum or Plasma by Bromocresol green (BCG) dye binding method 3.4 g/dL 3.5-5.2 L [facility] Bilirubin.total [Mass/volume] in Serum or Plasma 0.4 mg/dL <1.2 [facility] Calcium [Mass/volume] in Serum or Plasma 11.5 mg/dL 8.6-10.0 [facility] Chloride [Moles/volume] in Serum or Plasma 96 mmol/L 98-107 [facility] Creatinine [Mass/volume] in Serum or Plasma 1.28 mg/dL 0.70-1.20 [facility] Glucose [Mass/volume] in Serum or Plasma 146 mg/dL 70-140 [facility] Alkaline phosphatase [Enzymatic activity/volume] in Serum or Plasma 144 U/L 40-129 [facility] Potassium [Moles/volume] in Serum or Plasma 3.6 mmol/L 3.4-5.1 [facility] Protein [Mass/volume] in Serum or Plasma 6.8 g/dL 6.4-8.3 [facility] Sodium [Moles/volume] in Serum or Plasma 134 mmol/L 136-145 [facility] Aspartate aminotransferase [Enzymatic activity/volume] in Serum or Plasma 30 U/L <40 [facility] Urea nitrogen [Mass/volume] in Serum or Plasma 10 mg/dL 8-23 [facility] Osmolality of Serum or Plasma by calculation 280 mosm/kg 275-300 [facility] Creatinine/Urea nitrogen [Mass Ratio] in Serum or Plasma 8 [facility] Bicarbonate [Moles/volume] in Serum 23 mmol/L 22-29 [facility] Alanine aminotransferase [Enzymatic activity/volume] in Seru m or Plasma 22 U/L <41 [facility] Anion gap 3 in Serum or Plasma 15 mmol/L 8-15 [facility] Glomerular filtration rate/1.73 sq M pre dicted among non-blacks [Volume Rate/Area] in Serum or Plasma by Creatinine-based formula (MDRD) 59 mL/min/1.73m2 >60 [facility] Glomerular filtration rate/1.73 sq M pre dicted among blacks [Volume Rate/Area] in Serum or Plasma by Creatinine-based formula (MDRD) 69 mL/min/1.73m2 >60 [facility] ID Date Data Source [id number] 12/20/2020 12:47:30 PM EDT [facility] Name Value Range Interpretation Code Description Data Belinda rce(s) Supporting Document(s) Prostate Specific Ag Free/Prostate specific Ag.total i n Serum or Plasma 3.4 ng/mL <4.0 [facility] Serum levels of PSA should not be interp reted as absolute evidence of the presence or absence of Cancer. Results obtained with different methods cannot be used interchangeably. This method is manufactured by [employer] and is an electrochemiluminesence immunoassay. ID Date Data Source [id number] 12/15/2020 05:14:47 PM EDT [facility] Name Value Range Interpretation Code Description Data Belinda rce(s) Supporting Document(s) Progress Note [facility] CFHSJf8lBxQDVzRn03/JNDhyBHBym3KdGRtaRCx9STcoBTDdS5WpTYY7kJ3wWWN0FIrRPiPvFoIzTIS4 lbm [file] Rg0K ID Date Data Source [id number] 12/15/2020 07:01:26 AM EDT [facility] Name Value Range Interpretation Code Description Data Belinda rce(s) Supporting Document(s) Progress Note [facility] LSIAWd5hCxTAKcFl66/WJStpSHUue6TaYRyfFLz7LDtsBDQcX3GdSMK2bW1rWIR7BIzGQnBnPaKpMMV8 lbm [file] AY/3H52e1v82VaWW1NCFBh/HM1a+h8c2A32I+S5c78 e4Doohp7l9gosnTUkLkgBU2dwlYEeAfUHOitMVpq24pjuss4SCq72U2oUR2eQ1iKvhzo8ABWG/hq9Wfr corn breeder+NhB8ymuKHSiFGmy6SmJ6xJgCDXoifWXefhuB5BmaJzwPsgXAQY8LnK+OV+4DXgLeoGBIHRgFe+Xo [file] UzR6IMQoPNEwDoW5ZLCkBhtsYpLhMU2GAo3BQyM1NBA8dPHdSj9DVsCcSKxYWaYtHH9VVYb= ID Date Data Source [id number] 12/15/2020 07:01:21 AM EDT [facility] Name Value Range Interpretation Code Description Data Belinda rce(s) Supporting Document(s) Progress Note [facility] EQIDKo0gBaBTLxEj04/KQMqqPJLzp4BrQWzwBBs5VPyxEXTtZ9AcBJN4vS8iXEK8YCcILwKuMgXlGVK8 lbm [file] ICAgICAgICAgICAgICAgICAgICAgICAgICAgICAgICAgICAgICAgICAgICAgICAgICAgICAgICAgICAg ICAgICAgICAgICAgICAgDQogICAgICAgICAgICAgIC AgICAgICAgICAgICAgICAgICAgICAgICAgICAgICAgICAgICAgICAgICAgICAgICAgICAgICAgICAgIC AgICAgICAgICAgICAgICAgICAgICAgICAgDQogICAgICAgICAgICAgICAgICAgICAgICAgICAgICAgIC AgICAgICAgICAgICAgICAgICAgICAgICAgICAgICAg ICAgICAgICAgICAgICAgICAgICAgICAgICAgICAgICAgICAgDQogICAgICAgICAgICAgICAgICAgICAg ICAgICAgICAgICAgICAgICAgICAgICAgICAgICAgICAgICAgICAgICAgICAgICAgICAgICAgICAgICAg ICAgICAgICAgICAgICAgICAgDQogICAgICAgICAgIC AgICAgICAgICAgICAgICAgICAgICAgICAgICAgICAgICAgICAgICAgICAgICAgICAgICAgICAgICAgIC AgICAgICAgICAgICAgICAgICAgICAgICAgICAgDQogICAgICAgICAgICAgICAgICAgICAgICAgICAgIC AgICAgICAgICAgICAgICAgICAgICAgICAgICAgICAg ICAgICAgICAgICAgICAgICAgICAgICAgICAgICAgICAgICAgICAgDQogICAgICAgICAgICAgICAgICAg ICAgICAgICAgICAgICAgICAgICAgICAgICAgICAgICAgICAgICAgICAgICAgICAgICAgICAgICAgICAg ICAgICAgICAgICAgICAgICAgICAgDQogICAgICAgIC AgICAgICAgICAgICAgICAgICAgICAgICAgICAgICAgICAgICAgICAgICAgICAgICAgICAgICAgICAgIC AgICAgICAgICAgICAgICAgICAgICAgICAgICAgICAgDQogICAgICAgICAgICAgICAgICAgICAgICAgIC AgICAgICAgICAgICAgICAgICAgICAgICAgICAgICAg ICAgICAgICAgICAgICAgICAgICAgICAgICAgICAgICAgICAgICAgICAgDQogICAgICAgICAgICAgICAg ICAgICAgICAgICAgICAgICAgICAgICAgICAgICAgICAgICAgICAgICAgICAgICAgICAgICAgICAgICAg HCHvJTGnKQYgAKLfBGGsXLJnGGYmTJJqMUs8D7piIX HrZCIeJS4wMAi6Fk1+TFaHNpUbTNP9xeGncR7BQC7ge7HqTMigGCUck1PmRYw1KH2DHBRuDLzvHB5FKX kimf3ROAVzJDFlzVGHt1zzCzVzFQE0CKDyLeqyTB8PVCNhH4yubcZnVNByDZREPKumZIXLNCCiXSHpDm RoKxTzIWHkLHYtFQQJTVI9QDZgIxExMZYzDXCwCeNk VYWYYY3UYsTkL6DetZ28BCtDGl5+JAggeyAtQycWTvM3BBHop8YjJEi7BT5XAHPfJoese2FhTyzfHSDG RAujOG4OOPG6ZVA2JFNpAt5ZPWRlS671glEmFL3MDx2NGfRtNQ6htg5FLddwJUKlOlkDJdt5ARezDK6T vMBiAFiLky3klnRkpkKOw3OkeaCbxLSESY9gYRFRZK ngfWMiQKRaZM6NUKI2NIseXsybPuOrGSTpQAy8JDSVIXgMXfXeA6Egs9CuCzV4IMQiQcSwTKjpRXHtTl G5WO82kQguGF3JZXKdUJRcJC72KCN0BSBlNj9RIy5HOnVpJO8pcb5CKvCdEW0jol1LBUwHZqXyO1O3fU OcV1Eqve08AX5TbRS7iAWmRW1YbK6eOQ5Kq1DkYEPe RmZsXNSmHSSnNIIkXMLdTuEgOQ0CLBAxYwBilDZaSPUgPBS8ILMuXuD5SWTkXV7XWORtVUE1JQ4MCB3Y CvavB8SBSHweoYzeRaSXRGR/WXHKMMYBKGmhUKTgG85RZ5ZQFWoUHygkTFyYUnloCx7wORv+Mr8FWJ1l a3WnQNkvPVQzAH0mox4MWMiZStYxS1V4nIBcI2E9PJ qdIp0NMOLxBRFhStWjVTOISGzmUS1ONG8rvgJ5OU7ElYPqOCZsYGUboLBkLPh3S32ofABnIMygGG5QYJ A+Immanuel+Ak3ZPFViKRRuUULgBuGoUHSUFhMoB1HxH1QSs2CvM8JgDE96tTpqddZnDFpcIV2DDU4kXPIsHS RIES4TaZEbtI2fdvMeXyGrRREBCsBlC35reOBeOOTb HPR2GEAdVo3LCQKwT8GoyrDatOjfawRkATPeFEKGDI7DGDslxmAdwVGjfEjpLM51iPfmZM5AIf5QDsFm RR7ivm5QoPWvJu8BTCN6VA7HQDKoZDBkEYGvRKV8VIZmExKfZYvlUBIfTWEwZPN0MYAvUEMkLG4NJeQa DBScSBA1MIBfNKHiIONfyj9UEZPeBQV3TJJmPUEeKZ SwJTPjXDfaVGGaSFGiWIN0SETyJIZhEI1SBrKlHOOdBAM7ArcxNRUrZAMhmp5XWIVuMUK7YeRmUYEtAM IaPSImDItkRMDvBDC3RoE0RWRqVGFxES8JZgXgTSUkNYalZdPlJVHcZCKlwz8PKAJmEDEbDGX2TgMgWM YiPQKgQFzqXGWwAFFoXjG7VLIpAPIhER1YQmBlASUf QGG4YjjuTYCuOVGdmn4QIVLrBIBhJOijYoJtRMXvIMKaCBojTAEpBVK6WAGcPRTsVJJkTA2GLdFoWKFd SId4DeJbZTSqIJDalw5GWSUwKGUaYDTzLATtFZJiICYyREbxVXVkSFDkHMA6JKDvOBNjVD3DUlNlVAVi YjR2SdQtLVBoAJSarm7FJGOgPGMiZFZwGHQmDFEaLH OsRNmlXBFdZUY5QCN5QYDqYNGkBV4DNfHtYSTzXnkbTUDoZVLbTBBgrw2PTRWwYPCgVoUzKjDmOOHfQF CmNUypLUBxPFX4TGgoUGTcPOPzBK1HWiQlOKPxDwz8QsaaZRUfJODgtl6OGPFuERGxMKu3MhCsYIPwML WuMEzvSGQoZWI3CWUwQQCyQYQtQP7BMiYdEFPnTsRx LxBrZVCrLFEjwf4UUAWyHHInJDMlPSPnFGClQVCxCSkhHLRjOWEtJqXzRHDmBZMzEQ5UIhYpVLKuHEI8 LyTeDGXxXZKqab8UDZYhSSP0RjX7GSDdZVRaYNNoADrxPWHhYNBtVBN1GMRwYLCnEU2WXaYhHFJuVZG2 DaOsZTAaZDOfmn0VOAUwAFZ1OjOwHVYoQVBsZGZfGJ glLOJiLECrKgEfNRUjNETyJW8UEgHnCKFhJNW1OHEvKFSqKDOejb6GDAYfRGE8MAV0EFIcICJpJSYkTN kzGBOqJPJ8Pmk1XIYgGEHiLX8OXiInGNXcKMN3WYBuOUBtPDIgxx6BFEQaVVP9AhX3HSViLHDcPEWzZE q9nhAqyEWhNMn8WQ2MV2AtepGdBITSWh6Ga513TJJ5 ZOWkAh4QY1lhZw5dCSSfWIVZTv2QYGp7YQQ0ZiJuHHClKMJ9QLpdDHt6Q5PtZKm8GeI9JmPpMZP+IDww FKPbJnVlYcP2SkO3HHKuNKrzLwS7MuAfGuNkSgAkCn4eKYWUSv8+FRqpzQXysWxvIQGSTdA5SBV6POsv DIVSAo5B ID Date Data Source [id number] 12/14/2020 12:57:39 PM EDT [facility] XR ABDOMEN AP SUPINE AND AP ERECT [id number] INAL RESULTInterpreted by:SANTOSH PereiraNDICATION: abdominal pain with [...] rce(s) Supporting Document(s) ID Date Data Source [id number] 12/14/2020 11:06:[address] [facility] Name Value Range Interpretation Code Description Data Belinda rce(s) Supporting Document(s) Leukocytes [#/volume] in Blood by Automated count 10.0 10*3/uL 4-10 [facility] Erythrocytes [#/volume] in Blood by Automated count 3.52 10*6/uL 4.6- 6.1 L [facility] Hemoglobin [Mass/volume] in Blood 11.2 g/dL 13.5-18 L [facility] Hematocrit [Volume Fraction] of Blood by Automated count 32.8 % 4 1-53 L [facility] Erythrocyte mean corpuscular volume [Entitic volume] by Auto mated count 93.1 fL 80-96 [facility] Erythrocyte mean corpuscular hemoglobin [Entitic mass] by Automated count 31.7 pg 27-33 [facility] Erythrocyte mean corpuscular hemoglobin concentration [Mass/volume] by Automated count 34.0 g/dL 32.0-36.0 [facility] distribution width [Ratio] by Automated count 14.4 % 11.5-14.5 [facility] Platelets [#/volume] in Blood by Automated count 506 10*3/uL 150-400 H [facility] Differential cell count method - Blood [facility] Neutrophils/100 leukocytes in Blood by Automated count 70 % [facility] Lymphocytes/100 leukocytes in Blood by Automated count 18 % [facility] Monocytes/100 leukocytes in Blood by Automated count 11 % [facility] Eosinophils/100 leukocytes in Blood by Automated count 0 % [facility] Basophils/100 leukocytes in Blood by Automated count 1 % [facility] Neutrophils [#/volume] in Blood by Automated count 7.02 10*3/uL 1.8-7 .0 H [facility] Lymphocytes [#/volume] in Blood by Automated count 1.79 10*3/uL 1.2-4 .0 [facility] Monocytes [#/volume] in Blood by Automated count 1.07 10*3/uL 0-0.8 H [facility] Eosinophils [#/volume] in Blood by Automated count 0.00 10*3/uL 0-0.5 [facility] Basophils [#/volume] in Blood by Automated count 0.08 10*3/uL 0-0.2 [facility] Nucleated erythrocytes/100 leukocytes [Ratio] in Blood by Automated count 0 /100{WBCs} 0-0 [facility] ID Date Data Source [id number] 12/14/2020 12:03:22 PM [facility] Name Value Range Interpretation Code Description Data Belinda rce(s) Supporting Document(s) Albumin [Mass/volume] in Serum or Plasma by Bromocresol green (BCG) dye binding method 3.7 g/dL 3.5-5.2 [facility] Bilirubin.total [Mass/volume] in Serum or Plasma 0.3 mg/dL <1.2 [facility] Calcium [Mass/volume] in Serum or Plasma 10.7 mg/dL 8.6-10.0 H [facility] Chloride [Moles/volume] in Serum or Plasma 96 mmol/L 98-107 L [facility] Creatinine [Mass/volume] in Serum or Plasma 1.13 mg/dL 0.70-1.20 [facility] Glucose [Mass/volume] in Serum or Plasma 113 mg/dL 70-140 [facility] Alkaline phosphatase [Enzymatic activity/volume] in Serum or Plasma 114 U/L 40-129 [facility] Potassium [Moles/volume] in Serum or Plasma 3.3 mmol/L 3.4-5.1 L [facility] Protein [Mass/volume] in Serum or Plasma 7.1 g/dL 6.4-8.3 [facility] Sodium [Moles/volume] in Serum or Plasma 136 mmol/L 136-145 [facility] Aspartate aminotransferase [Enzymatic activity/volume] in Serum or Plasma 38 U/L <40 [facility] Urea nitrogen [Mass/volume] in Serum or Plasma 13 mg/dL 8-23 [facility] Osmolality of Serum or Plasma by calculation 283 mosm/kg 275-300 [facility] Creatinine/Urea nitrogen [Mass Ratio] in Serum or Plasma 12 [facility] Bicarbonate [Moles/volume] in Serum 22 mmol/L 22-29 [facility] Alanine aminotransferase [Enzymatic activity/volume] in Seru m or Plasma 14 U/L <41 [facility] Anion gap 3 in Serum or Plasma 18 mmol/L 8-15 H [facility] Glomerular filtration rate/1.73 sq M pre dicted among non-blacks [Volume Rate/Area] in Serum or Plasma by Creatinine-based formula (MDRD) 69 mL/min/1.73m2 >60 [facility] Glomerular filtration rate/1.73 sq M pre dicted among blacks [Volume Rate/Area] in Serum or Plasma by Creatinine-based formula (MDRD) 80 mL/min/1.73m2 >60 [facility] ID Date Data Source [id number] 12/14/2020 12:10:23 PM [facility] Value Range Interpretation Code Description Data Belinda rce(s) Supporting Document(s) Prostate Specific Ag Free/Prostate specific Ag.total i n Serum or Plasma 4.3 ng/mL <4.0 H [facility] Serum levels of PSA should not be interp reted as absolute evidence of the presence or absence of Cancer. Results obtained with different methods cannot be used interchangeably. This method is manufactured by [employer] and is an electrochemiluminesence immunoassay. ID Date Data Source [id number] 12/03/2020 07:40:58 AM [facility] Value Range Interpretation Code Description Data Belinda rce(s) Supporting Document(s) Progress Note [facility] BPIULt9pGcQJXqIz14/LONfhARLfu0LhYRkjKTe3ZQakRFPzR1FtPRZ5zL6wBRS8DGnXGiEvXzYzZYW2 [facility] [file] CHIEF CLINICAL DIETITIAN++lRdKGlg3YAPo9SHGZsiKgI3nOMruLHfkQCu/f4 [file] 31mHE/o/M+Maria Fernanda+A/7soimmdt/zH3cfHhDbjmSqE+s0n4Qi6PQBjhoIX0TrhbwjjxxIUtVv8zF/3KlP5z 0h/CYRnvf+sDeTvN0rkm/Yp88N5kfe0JJ0XB5P0vUA fPiRAN05VX5t+uHil0BkjaYzI/tpDh3Ch3vHnovSZLrTg4Mji6a1BMlgLH4lYYwvAZ8/KmQEwHFF+iCN WABqOlybYI5NnheM7MmYl42C6vlPduegD+/HeS/64msy84s+EcEFc2WoObcMAmXii08mq7n0OSyYSTdJ Tusnl0x1/x5RkR6PgxzI3/4p7gRClEGFESyvzBpYhu 65B/qMemuIlE3n4Xx+qEKFE4IZ04JQqm+X7kES5nvCDhC6XaSID+E+G+V8DScjyvK9eh6FMUtUF60Owq 80K/9S0dL3bx/wmJX+wAZgCdz/CaA/P/PH9U2P6fJ+o1s4SxcC7wM5a+E/D3gS/k/tLhvYjbb93VYWmw HciXL3FBjSGt8yb/7a4dMSQ3+HEsyCg4SR9VdD5OU2 F6byXM91dQNiG0Sb4p+QnNzOOX9t2EMp34+w03EyF08hB+M4FO+wyf41awwOxKZEkcRvwfi/C/3RpmL8 DyTI6YlL0QBFpEw/Nc0P5UbWl0ZekClQY5FR+aJcdr/fio7BoofXhIAWfr5TcJ/fAiOTsX8n+NqJkZ4z C8FGDhYlQCDvbgfjw2Ue354B0I5Q3NM6l0M/dPo0R7 AoSEKQ0Db3z/3ft4/8F/rU/yEQjaLdja5AdVUfpu3Qd60myh/+l/vyw/WZ4g65q+p3+ckQuqSaM5PDUT ef3kPDe/BRENDA/iPpOd+X3++3vG9/Ky7duZMu6EP62jT9QtIfQAYsEa3qpElV/ChMm8yHXM+M878R7jQZu [file] FOSUPPloCM5FOO4bfxL6IY2FwXRzIANbFGGuxFQpRSp3F86juVRvGEgtHE5HXLE+Immanuel+Yq4WKZKyJOCq SNFfSbIxNTYGWyIeK4ZnE6QAd9RyR3AySM10oPgzgfLrZWbzIZ9IEA4mXDQbUZPEYF6ToNIwtK8hbrIz WvRiETCNMmEzI34gsJEjJQSvORUkKAPdQf5DBHZzH1 GrufWohGqexiJqPRVfGIRPHN3AELirozAhjSKlcNxpOI18aOktKL1YWw4OVpUxEF1mmo8SoOQpTe9WKG NwYq0GFDLaFCHsQSHiIRU8WSVwEdWvJIsgIXSwQGHwGSN1BNJhEGPsYW5BKpCfIGKhEMvgUKBmQLFiDP Rjop5RBCBaYTK6EQa6SVAyPBVwEJTjFFmpNNVzWMJn IPQ6FIDuZBPaZH1PAvErVQScDVC1TOrkJBHuPJCpcp3FZYRkSOWeVZT3JCRwJOMgKVFsMUkiMCNqGOX8 MfMrIHEvAPEsJC3MLsRuJXBoTPf0TRljQWFqBBVnvs5PYZRcDXFhJeSiRyEiXOKwNHKxOTgwSZOtIUCq JGCgVXLiAUKbQL7PQfXqHLOjVWAlPZlgAENpYNHwlv 3YAENoUUEqXHNvWIIbPCFxSSDaTNddEDKeXIV2YBW5STGrXIQpLV1ONaEyWTWlGIngBQpdDWAfXSBjfs 3JTTReQZH8RUC6ZCDeTEOoWQHfNBueLYKeCKJ2OTy3VFIwWHMaQH8NYnDeYGKdRBiwYORaTTBhGXHqnv 1VYSEdPIQcVUO0XAPtVETfSMOsKRblBOYhKPK9Ycby NWSbYQNuUN7KYnScZFUlTFs9BVHwFGLdMVThps3SCZXeNMPiJJHvNwMmMEFvHKItOQslGULgLPQcHzD7 AMPgKUYmBS8KMsOmSDNwPqL9TEIwANMrMEGrpd7FOLRwEHG3YvqiMjNpVDGpNWJhAXgnJPCbFOA8QKG3 OUTiPJPiMO8PUpWnQUYjLUS2YzaeIAIfFJUoje0ZBG MaYQL6COBfAuPtNKTlDAKqOBkmHEKrWMA8ZvmnYYWyPWJeJR8RWfQpZEFxXYJ2KmYrEGWyYASmef0SGX ToIVD7PptuWCWoIGRkOYZuRFmwRNJdKPY9NMpoMQMoSGZoBR1AMmBaTQEmAQl3CItiXJMrBDLwpi8QMI OzJUX6DEa6XxFaRTAgAPWbEMexRCWhLRG2BCG9NMMt FXGxOP4EWgEzZWRrMWx8VEPqLSPdLSHheq4KzIMtpZmndf8NMFoVZb4QkPcpPSZ6XOcbJu2sjRLmODUp GGIWWv4XipWnNGGtGQAWZFplCZUhBYSnOjgiQWXxEIybDZX9UgDvFIKaZdCrDiF6QOXyAUH8YjJ8JUB4 YDI1LNV5ZQR8JiCbYSF6JCXlQpKyBdj5LvU2NiZ+IF 0gDQo+Mv0Tv7BjgdJ7neHwPPe8MTy0LV0WFOSFP9HIXu== ID Date Data Source [id number] 12/01/2020 04:11:[address] [facility] MR LUMBAR SPINE WITH AND WITHOUT CONTRAS T [id number] RESULTInterpreted by:Savita Silva MD11/22/2020 4:48 PM MR LUMBAR SPINE WITH AND WITHOUT CONTRAST [id number] CLINICAL INFORMATION: rule out new fracture in [...] high-grade central canal stenosis. Mild right and lkrd-uo-frjpyysg left neural foraminal narrowing is seen.L5-S1: Pseudo [...] rce(s) Supporting Document(s) ID Date Data Source [id number] 12/01/2020 04:11:27 PM EDT [facility] MR THORACIC SPINE WITH AND WITHOUT CONTR AST [id number] RESULTInterpreted by:Savita Silva MDEXAMINATION: MR THORACIC SPINE WITH AND WITHOUT CONTRAST [id number] INDICATION: rule out new fracture in setting [...] rce(s) Supporting Document(s) ID Date Data Source [id number] 11/24/2020 02:35:09 PM EDT [facility] Name Value Range Interpretation Code Description Data Belinda rce(s) Supporting Document(s) Progress Note [facility] DTTJMv2oUrMVYeJk43/KOZrrCASip3WrEQuqXJl1IApaRSBvN4HqOAW5tL4hIHI6CJzFTmJrMpAkMjW9 lbm [file] Rg0K ID Date Data Source [id number] 11/23/2020 09:31:18 AM EDT [facility] Name Value Range Interpretation Code Description Data Belinda rce(s) Supporting Document(s) Leukocytes [#/volume] in Blood by Automated count 7.1 10*3/uL 4-10 [facility] Erythrocytes [#/volume] in Blood by Automated count 3.71 10*6/uL 4.6- 6.1 L [facility] Hemoglobin [Mass/volume] in Blood 12.0 g/dL 13.5-18 L [facility] Hematocrit [Volume Fraction] of Blood by Automated count 35.3 % 4 1-53 L [facility] Erythrocyte mean corpuscular volume [Entitic volume] by Auto mated count 95.1 fL 80-96 [facility] Erythrocyte mean corpuscular hemoglobin [Entitic mass] by Automated count 32.3 pg 27-33 [facility] Erythrocyte mean corpuscular hemoglobin concentration [Mass/volume] by Automated count 33.9 g/dL 32.0-36.0 [facility] E[facility]th[facility] distribution width [Ratio] by Automated count 14.5 % 11.5-14.5 [facility] Platelets [#/volume] in Blood by Automated count 365 10*3/uL 150-400 [facility] Differential cell count method - Blood [facility] Neutrophils/100 leukocytes in Blood by Automated count 66 % [facility] Lymphocytes/100 leukocytes in Blood by Automated count 24 % [facility] Monocytes/100 leukocytes in Blood by Automated count 8 % [facility] Eosinophils/100 leukocytes in Blood by Automated count 1 % [facility] Basophils/100 leukocytes in Blood by Automated count 1 % [facility] Neutrophils [#/volume] in Blood by Automated count 4.65 10*3/uL 1.8-7 .0 [facility] Lymphocytes [#/volume] in Blood by Automated count 1.73 10*3/uL 1.2-4 .0 [facility] Monocytes [#/volume] in Blood by Automated count 0.58 10*3/uL 0-0.8 [facility] Eosinophils [#/volume] in Blood by Automated count 0.09 10*3/uL 0-0.5 [facility] Basophils [#/volume] in Blood by Automated count 0.08 10*3/uL 0-0.2 [facility] Nucleated erythrocytes/100 leukocytes [Ratio] in Blood by Automated count 0 /100{WBCs} 0-0 [facility] ID Date Data Source [id number] 11/23/2020 09:58:20 AM EDT [facility] Name Value Range Interpretation Code Description Data Belinda rce(s) Supporting Document(s) Albumin [Mass/volume] in Serum or Plasma by Bromocresol green (BCG) dye binding method 3.7 g/dL 3.5-5.2 [facility] Bilirubin.total [Mass/volume] in Serum or Plasma 0.4 mg/dL <1.2 [facility] Calcium [Mass/volume] in Serum or Plasma 9.4 mg/dL 8.6-10.0 [facility] Chloride [Moles/volume] in Serum or Plasma 100 mmol/L 98-107 [facility] Creatinine [Mass/volume] in Serum or Plasma 0.72 mg/dL 0.70-1.20 [facility] Glucose [Mass/volume] in Serum or Plasma 117 mg/dL 70-140 [facility] Alkaline phosphatase [Enzymatic activity/volume] in Serum or Plasma 103 U/L 40-129 [facility] Potassium [Moles/volume] in Serum or Plasma 3.9 mmol/L 3.4-5.1 [facility] Protein [Mass/volume] in Serum or Plasma 6.8 g/dL 6.4-8.3 [facility] Sodium [Moles/volume] in Serum or Plasma 135 mmol/L 136-145 L [facility] Aspartate aminotransferase [Enzymatic activity/volume] in Serum or Plasma 31 U/L <40 [facility] Urea nitrogen [Mass/volume] in Serum or Plasma 12 mg/dL 8-23 [facility] Osmolality of Serum or Plasma by calculation 280 mosm/kg 275-300 [facility] Creatinine/Urea nitrogen [Mass Ratio] in Serum or Plasma 16 [facility] Bicarbonate [Moles/volume] in Serum 21 mmol/L 22-29 L [facility] Alanine aminotransferase [Enzymatic activity/volume] in Seru m or Plasma 19 U/L <41 [facility] Anion gap 3 in Serum or Plasma 13 mmol/L 8-15 [facility] Glomerular filtration rate/1.73 sq M pre dicted among non-blacks [Volume Rate/Area] in Serum or Plasma by Creatinine-based formula (MDRD) >6 0 [facility] Glomerular filtration rate/1.73 sq M pre dicted among blacks [Volume Rate/Area] in Serum or Plasma by Creatinine-based formula (MDRD) >60 [facility] ID Date Data Source [id number] 11/23/2020 10:38:32 AM [facility] Value Range Interpretation Code Description Data Belinda rce(s) Supporting Document(s) Prostate Specific Ag Free/Prostate specific Ag.total i n Serum or Plasma 2.8 ng/mL <4.0 [facility] Serum levels of PSA should not be interp reted as absolute evidence of the presence or absence of Cancer. Results obtained with different methods cannot be used interchangeably. This method is manufactured by [employer] and is an electrochemiluminesence immunoassay. ID Date Data Source [id number] 11/19/2020 11:15:56 AM [facility] Value Range Interpretation Code Description Data Belinda rce(s) Supporting Document(s) Progress Note [facility] CJUEQp8kAdKMHtQu68/XBPdqQVTle0JpUJnkVWr0FAytFEGhY9IvFWF4oW7fJFW9ECtFDiGoDhKzOhIx lbm [file] ICAgICAgICAgICAgICAgICAgICAgICAgICAgICAgICAgICAgICAgICAgICAgICAgICAgICAgICAgICAg ICAgICAgICAgICANCiAgICAgICAgICAgICAgICAgICAgICAgICAgICAgICAgICAgICAgICAgICAgICAg ICAgICAgICAgICAgICAgICAgICAgICAgICAgICAgIC AgICAgICAgICAgICAgICAgICAgICANCiAgICAgICAgICAgICAgICAgICAgICAgICAgICAgICAgICAgIC AgICAgICAgICAgICAgICAgICAgICAgICAgICAgICAgICAgICAgICAgICAgICAgICAgICAgICAgICAgIC AgICANCiAgICAgICAgICAgICAgICAgICAgICAgICAg ICAgICAgICAgICAgICAgICAgICAgICAgICAgICAgICAgICAgICAgICAgICAgICAgICAgICAgICAgICAg ICAgICAgICAgICAgICANCiAgICAgICAgICAgICAgICAgICAgICAgICAgICAgICAgICAgICAgICAgICAg ICAgICAgICAgICAgICAgICAgICAgICAgICAgICAgIC AgICAgICAgICAgICAgICAgICAgICAgICANCiAgICAgICAgICAgICAgICAgICAgICAgICAgICAgICAgIC AgICAgICAgICAgICAgICAgICAgICAgICAgICAgICAgICAgICAgICAgICAgICAgICAgICAgICAgICAgIC AgICAgICANCiAgICAgICAgICAgICAgICAgICAgICAg ICAgICAgICAgICAgICAgICAgICAgICAgICAgICAgICAgICAgICAgICAgICAgICAgICAgICAgICAgICAg ICAgICAgICAgICAgICAgICANCiAgICAgICAgICAgICAgICAgICAgICAgICAgICAgICAgICAgICAgICAg ICAgICAgICAgICAgICAgICAgICAgICAgICAgICAgIC AgICAgICAgICAgICAgICAgICAgICAgICAgICANCiAgICAgICAgICAgICAgICAgICAgICAgICAgICAgIC AgICAgICAgICAgICAgICAgICAgICAgICAgICAgICAgICAgICAgICAgICAgICAgICAgICAgICAgICAgIC AgICAgICAgICANCiAgICAgICAgICAgICAgICAgICAg ICAgICAgICAgICAgICAgICAgICAgICAgICAgICAgICAgICAgICAgICAgICAgICAgICAgICAgICAgICAg ICAgICAgICAgICAgICAgICAgICANCjw/mRZhB9mugEBieoV9L3laBr2QWt6XJL2fl3QoAVJiFLaleyGt ZeiFJyJzSLIaUdyBGsv9ZNllER4EiTQaK6DjK4UsFA grZR4KBWHmYDAflGNiHGZgHUChDvL2FKIoJYymRK2LkJAuHQlxBMEfASGbUHPyPPCpVRIeOYFEGMPrFL RhSrItAZEgGDKbFTWyJSXKJAJ6OLLkCuIwQZXoIKEcUwEtHJUMPW6ZVmMzA2CazV19PDnBNp0+DQplbm JaPydHLrQ4NJXsh4ZlUBt9ZY2FTFDvZbyoz4EqYFtt GFUXNZdnKD7ZDDU1VHT6CLDrZs4KEHNwL251edQkUY5HHl3VDtGmHS4nkd0JVAfjHIRrHojRQfx1SUbr XI9AfYFxXZrKhj6hwmXlysSCs3MxcnFokOADML6pFcHtikZsiL0bZJ6IVOQ6PSlkPsOsRjDcVBJnVag7 ALTMZQvWMnCaQ6Lkb8CbKeK2ROWqIvMqCMttMMQmWe W4YX27lHguAH3TRMNuZGIwDT86ZRG8HTStOg9DWb9NTeNnKG9yze5LRuHhVI2bpw0ODQcECuHiD1A4wM IuF9Pvzn03BG1UtQR8aZFtMQ3DgM7lAF5Sa8VaXMIqQpAeISAcHBYlNEQnVLViRxLvNM3FKYNdCfWswT LaDIVdHRK2UKWvFeF9EBCyCM2NVHExHWI6YI2EXG5E NpziT7ITSSbfnFwrSkXCUZD/RGGXCNCLAHfaZJCwI90WW7AORJaGZnhxLEjFTjqlUi9hDGt+Mq3PHG6u u6XuJBs0OTIsAD0lcs1GYDsWGjAnA1L6iWGaH5I2YCekLr9DTKBeRWMhRYHmJESIPHzmBC1LDI2pjrU7 BW6WuNPlLEIoNXAfbWHePHg4U51teYIwEKjwMT0ERP A+Immanuel+Zy2QDGWlACHvFEOgQlPpMTGSZnRsS2PrF6NLw9JjH9WqAI52fNdzgfTqHAebPA1DEC0uKVXzFO DHQZ7QmTUesZ5yhqI4GvEeHBHPLpZhB33zoTLfFMSbJJW3LBTiPx8QVSHyR1XcouTacDrlshDmOXNgSR WHWE5IAZninhCudKMdkUepMY20fFeePG6CJh8ZZbUv AV7sex5FfJUlCf7SRZN0DF7LQRYyVVSjDBDuJXF7MRAtXnBxIZutHNHnEJBoAVJ9WSVtGOXbVD3QSxSt HSDfBHE8MvNwBZAnPHVuya4UKVTqJTD2VMF0KtHwIORaGJUuOPiyTQYlSZSsIVL3ZCWnLQNaJJ0KTbUg AFIhOEEtMNByAZXbEJCmte3QMBIxLLP3RUG1LVHpSL UfIOMpURksDYAkHLJ5ZcO7YBTlBHNeKD1DEzTlGMJmOVjrRdgaVUTjDWZaej9CWKXmDQMjRUVwZiIgOP AiFUBwNQukCIFfVNWvQgMdMQOdUXOkLJ2SGnVeOBTcGRH6VklqJIIcWAFcpj2SSJDuMGQeMUM9UHEqSU XcTPZtBDanPFSjDNL8Fjy7ZGCtRHJcNH4ATuYlTMYt FQs1AjdsBQNqWVZhbp0HTRSaQOZuULUlKGZkGAYeWICtPRzrLMSrNSSbIhi6TUIyDXLpED6NLfItGQCb GzT2PGHpWNYgJLYdwh5WKPNgFJHmYfXpSoBpNFNcLEPmUVbyOIWcALU6YoJ5HQUwAMFsPW9DAaEyNVKr MeT7PREmGEKxSOYnjj8NUJAaNJCiRWP8CoHeFHZlIZ YnKAhuRVMdZVDbHTL7TTYxTZPsUT7LNjRuBAIbDvPzQeHpHYVbSSMwyx1OTGQzOVJpWnU4NMKnASMtEO XbNFciEDWoYZAwEIe5DQZtTCItVF7NKjMdRINhErH8TaHjCIZhNWMmnh3MLDUyASIpDHJoOLPzIZAeIQ JtGIzxHULmSLW1OSUjAWDfLTRzDV7HLlRmZHPxHwUt AmKdIPJqJVStnb5DRRCoQNM1KGPoCcXnCQKzGPFmNMpbWDNbJGJpNJM1KBWgTXWkUR2BEoTaCMQdDlOo FAzjIEDcRKBcax1VVNAhTVE0YtpjWzIzBQJnXEFtJPodIBFmLFMcCCVyHSKaJRFcIM2OKpJsISUhItMm VXYrDQSwTBSyca5HRMMsUMB1SZK4VzVrDQZlEUJaZU eqPDCeRZN2CwS9GJNkMKRhXC5BBsDrQHDkWfLyYPPyCKZqJPArco8LTKGrOHD2FWT4HYOiBRDuHBExZA glFJPzLTG9SaQ0UQFhUTZuFH3ZIfCeNBMtUJGxKiGfHVGwWGMxsh8VYOPnNQB4XIIvHfCjGZJfTGWoQP cfXSQxCHv5DUH5MEZqLFBeDC1POuIdPRFpMNYkPFfc NDAsYNIsag2ORMJmMMN2DiOqULDlVFByNXXhWNscMBJbNHy4XRX7BYTtYWZpTO6ZMkPcETJdFNq6LFYn QXQiIPLboy7TBAHtWID1TICqXKSeKIIrJHCbHXnzDRBtHIb6SYQ5VSLgCIMzRW4LCkDxDFoxGETTThj9 FBasX1o4ARO1BL4ER9Cig7QqDUweKBGEPTibLR2htm KuZQXxZk3YC3gZOtglT5J8XRC9MTDvLQEgQLNzCDU2YMCzMZAdNUUxH6OfXR3pPKEoDEhuKcI4MuJ2FE Y5UwN8TIBuNQAzXRY3CDQhFmK8DtMxPX7UNy8EYfB4JPH2tLSxFc9TJCckRYzNOjYmAQ7TPMv= ID Date Data Source [id number] [facility]/18[facility]2020 [facility]02[facility] [id number] RESULTI nterpreted by:Mary Wetzel MDHISTORY: 60-year-old male [...] rce(s) Supporting Document(s) ID Date Data Source [id number] 11/16/2020 03:30:41 PM T [facility] 2.9Serum levels of PSA should not be int erpreted as absolute evidence of the presence or absence of Cancer. Results obtained with different methods cannot be used interchangeably. This method is manufactured by [employer] and is an electrochemiluminesence immunoassay. Name Value Range Interpretation Code Description Data Belinda rce(s) Supporting Document(s) Leukocytes [#/volume] in Blood by Automated count 7.8 10*3/uL 4-10 [facility] Erythrocytes [#/volume] in Blood by Automated count 3.86 10*6/uL 4.6- 6.1 L [facility] Hemoglobin [Mass/volume] in Blood 12.4 g/dL 13.5-18 L [facility] Hematocrit [Volume Fraction] of Blood by Automated count 37.0 % 4 1-53 L [facility] Erythrocyte mean corpuscular volume [Entitic volume] by Auto mated count 95.7 fL 80-96 [facility] Erythrocyte mean corpuscular hemoglobin [Entitic mass] by Automated count 32.2 pg 27-33 [facility] Erythrocyte mean corpuscular hemoglobin concentration [Mass/volume] by Automated count 33.6 g/dL 32.0-36.0 [facility] E[facility]throcyte distribution width [Ratio] by Automated count 14.1 % 11.5-14.5 [facility] Platelets [#/volume] in Blood by Automated count 345 10*3/uL 150-400 [facility] Differential cell count method - Blood [facility] Neutrophils/100 leukocytes in Blood by Automated count 63 % [facility] Lymphocytes/100 leukocytes in Blood by Automated count 27 % [facility] Monocytes/100 leukocytes in Blood by Automated count 8 % [facility] Eosinophils/100 leukocytes in Blood by Automated count 1 % [facility] Basophils/100 leukocytes in Blood by Automated count 1 % [facility] Neutrophils [#/volume] in Blood by Automated count 4.93 10*3/uL 1.8-7 .0 [facility] Lymphocytes [#/volume] in Blood by Automated count 2.14 10*3/uL 1.2-4 .0 [facility] Monocytes [#/volume] in Blood by Automated count 0.62 10*3/uL 0-0.8 [facility] Eosinophils [#/volume] in Blood by Automated count 0.08 10*3/uL 0-0.5 [facility] Basophils [#/volume] in Blood by Automated count 0.06 10*3/uL 0-0.2 [facility] Nucleated erythrocytes/100 leukocytes [Ratio] in Blood by Automated count 0 /100{WBCs} 0-0 [facility] ID Date Data Source [id number] 11/16/2020 04:04:18 PM EDT [facility] 2.9Serum levels of PSA should [...] (BCG) dye binding method 4.0 g/dL 3.5-5.2 [facility] Bilirubin.total [Mass/volume] in Serum or Plasma 0.3 mg/dL <1.2 [facility] Calcium [Mass/volume] in Serum or Plasma 9.5 mg/dL 8.6-10.0 [facility] Chloride [Moles/volume] in Serum or Plasma 103 mmol/L 98-107 [facility] Creatinine [Mass/volume] in Serum or Plasma 0.82 mg/dL 0.70-1.20 [facility] Glucose [Mass/volume] in Serum or Plasma 108 mg/dL 70-140 [facility] Alkaline phosphatase [Enzymatic activity/volume] in Serum or Plasma 97 U/L 40-129 [facility] Potassium [Moles/volume] in Serum or Plasma 3.6 mmol/L 3.4-5.1 [facility] Protein [Mass/volume] in Serum or Plasma 6.8 g/dL 6.4-8.3 [facility] Sodium [Moles/volume] in Serum or Plasma 141 mmol/L 136-145 [facility] Aspartate aminotransferase [Enzymatic activity/volume] in Serum or Plasma 25 U/L <40 [facility] Urea nitrogen [Mass/volume] in Serum or Plasma 19 mg/dL 8-23 [facility] Osmolality of Serum or Plasma by calculation 294 mosm/kg 275-300 [facility] Creatinine/Urea nitrogen [Mass Ratio] in Serum or Plasma 24 [facility] Bicarbonate [Moles/volume] in Serum 23 mmol/L 22-29 [facility] Alanine aminotransferase [Enzymatic activity/volume] in Seru m or Plasma 22 U/L <41 [facility] Anion gap 3 in Serum or Plasma 15 mmol/L 8-15 [facility] Glomerular filtration rate/1.73 sq M pre dicted among non-blacks [Volume Rate/Area] in Serum or Plasma by Creatinine-based formula (MDRD) >6 0 [facility] Glomerular filtration rate/1.73 sq M pre dicted among blacks [Volume Rate/Area] in Serum or Plasma by Creatinine-based formula (MDRD) >60 [facility] ID Date Data Source [id number] 11/16/2020 05:18:11 PM EDT [facility] 2.9Serum levels of PSA should not be int erpreted as absolute evidence of the presence or absence of Cancer. Results obtained with different methods cannot be used interchangeably. This method is manufactured by [employer] and is an electrochemiluminesence immunoassay. Name Value Range Interpretation Code Description Data Belinda rce(s) Supporting Document(s) Prostate Specific Ag Free [Mass/volume] in Serum or Plasma 0.5 ng/mL [facility] Not Applicable ID Date Data Source [id number] 11/16/2020 06:51:55 AM EDT [facility] Name Value Range Interpretation Code Description Data Belinda rce(s) Supporting Document(s) Progress Note [facility] GENGPt1qEkMJIlSg94/TCPwvSXNfp3KkASpjATf3XPkeIGZfT3RyATW5wS9vLVS5HWzTCvVgAwAqAsIr lbm [file] 5L/operational trainer/VPX6qt9dfyyDWLTGXoeRznOF9wfa6Ttayz0FAvqZODKYtVAdypgmW3DNCT4JGptbFSlOPCWYH [file] DQo= ID Date Data Source [id number] 10/05/2020 02:52:53 PM [facility] BONE SCAN IMAGING WHOLE BODY [id number] AL RESULTInterpreted by:Neena Amin MDINDICATION: patient undergoing treatment for metastatic prostate [...] rce(s) Supporting Document(s) ID Date Data Source [id number] 09/04/2020 06:39:32 AM EDT [facility] Name Value Range Interpretation Code Description Data Belinda rce(s) Supporting Document(s) Progress Note [facility] CVSCTx2aBkSIFwQx64/QPAcgWMPgn5RfETdlWXv9PZbjQWEcE4SxOSN5zK7fURE6AYcSJoZfSdUhAXE6 lbm [file] NrQr4ZGSb9WvMNKoIsXT4LQKd= ID Date Data Source [id number] 08/23/2020 10:49:52 AM EDT [facility] Name Value Range Interpretation Code Description Data Belinda rce(s) Supporting Document(s) Progress Note [facility] WGYTMz5rAmIUZkMe89/OKVawENPnn2FuDRylRCk3VZlbKLIvX7QtNZA2nO2zDEK6XEhXXaEvWbDrSDF2 lbm [file] ICAgICAgICAgICAgICAgICAgICAgICAgICAgICAgIC IoAKMsJBZqFCDxZGEjVYAmIKIuRTLrVVWnVHBaEQHsRNVuARLyJYDuTKTjEBUbIQRrLTJlGC0KMALaHJ AgICAgICAgICAgICAgICAgICAgICAgICAgICAgICAgICAgICAgICAgICAgICAgICAgICAgICAgICAgIC AgICAgICAgICAgICAgICAgICAgICAgICAgICAgICAg RLVnFR7ARKDdPDDhYOEaPXEhNGUeKXIvYICoSLJiQOIkDPOgCGTpHYWvHJZoENLbMCHvRBHoBGAgEGBd VDEjIROfWNNbBDBmQAKvOMWmZHUnKRJyNNPxWMYmBBZeCIBtEDTjMUJpTMYmNG4CLYVqYEKzNIQmNVSr ICAgICAgICAgICAgICAgICAgICAgICAgICAgICAgIC VlUFHtVEFzMHAiTGJxVMOgPRBiLDQsZOMoNVSgHTEyLSYsXVVsWXKuVZUjCVZvTQCpZMVbJYAdIF8ZEU AgICAgICAgICAgICAgICAgICAgICAgICAgICAgICAgICAgICAgICAgICAgICAgICAgICAgICAgICAgIC AgICAgICAgICAgICAgICAgICAgICAgICAgICAgICAg ELYiMIBmCC7UQQSfVEBcTZVdSPMqVCUoXZXyXVCkHOIlBZSqOSRfDFZwEHBwGKSyXNSpZTIvKUNlMOSs RDEdLWMyETZkCNCsMIRaFKCrGCZvODSsQNVmAKLySWOiWIOdPCFcZAKkLPUtMOChOQ8MIQAfLWNtJSKc ICAgICAgICAgICAgICAgICAgICAgICAgICAgICAgIC AgICAgICAgICAgICAgICAgICAgICAgICAgICAgICAgICAgICAgICAgICAgICAgICAgICAgICAgICAgIA 0KICAgICAgICAgICAgICAgICAgICAgICAgICAgICAgICAgICAgICAgICAgICAgICAgICAgICAgICAgIC AgICAgICAgICAgICAgICAgICAgICAgICAgICAgICAg RECsOSYkDSLnYO7EUCSyUYZnDRFcUITaKWAqXHDdQFUmKGUlMOGgPFDpUEHlAFBkYOBlOGHzSKPbRXDd CPIzTDDcDXQyPYIrDSHdIBVcFFPrMWEgYCJfCPMtNUGeJWUgWXBeRAVyIDRdYWFoGMSrFD4DEU50yBKt j8T0BNSvOO4wqak/Um6XZRkdurQqbHBmXC7ITqTiNB 8eid8ZBsRnET5dtp1CVHnMDgHeZ0X2uXZeVMDvRDMLGaXuR95jRAauYm76TXuhKHLwHiLuZFg2Fn2JRq BpK9mkBEPtIjT8YUCwRdB1QUSpMnEeOPNiQORoUBWaPKYEAWU3TNTgAcXcQiSnCYQhCZvdNSYBAEWuQB GaKiUeDhLvEJBnTX4ETPTdU339yqVeON2OLn8DGfYl HM1rgm6WCACsUQVqNzhYAep9GFjnZE1JpAUxuIL7PqHxJBDMQdSiC9mvq4SbORGvIHASGLvzML9Pe4Ib dCAxDQo+Xc2ETT2xd4OfSCe8QgVaLH0rvh1AWNrFUfNgI2TtjBdcNVZii0pjKJVnDU8xeRIaXAG6YEY5 TZ5uPrFNMU1cOYfgLNFFQBM5PGGgXlCeJhVdPZZlZU e4JTZTDPpROnQaR8Elb2SaWhT5WREtXzRrWUgaMHWyVsU2OF78gAtiZO3USVChNSHgSL57PNEyUMAoGb 4GHl3HNcEbIN1msj6PBuGiPQ4caz9RHThBTdRoR6R0lTZqS5Qkdo10FG3MwAP0iNVcBF4WpB2pDX3En2 CxAGGeGtAaRXGuVZYnAGUsGPSlOrMvUE2YCRUdFdWg vDAsUSQvTHF5RCMwPaE3TOJlNL7JDZYwZVL0YS7EEM5GBipqD9XOLTynnRgpUiPCQAM/QUNUSVZJVFkm CPKvV55MY5FGCDlRHvcaAKaRIguwLm5yBSt+Ve1XNW8hc5SeXGr6OZQjLQ0edg1DHQsNFxIrZ3D3aYCo P6M1CXdvLz9CJTPpVISzBJMfRXIEXUuvFJ7CBV4qnk M1EO4ThJBzGJPhMCYhrBTwQXf7G41zmEHtBPvtFZ2OMAH+Immanuel+Me6THWZaTSEqUHLmNxViMWCYOzIaV6 LhR4GAi0GjY9HiFX90pBmzdkNtKGtiNX9FNG3aDBMbEXQDEG3SaOSsmL4ompF6YtVwLOLHQoHhM15xbR MxJEQyNXMsMFPgNe2IBDDeZ7RagpWxgAloawTrJLJd GTIPAK9ULPaahsHgrUPhhWkmHY95tOtmIU0LLp1LNyMsTK7mor5OrEHzAa5FHPI3MY8HBQKkLLPwEFKt HVH1HQRsKqXzIAvcJCZuCQYdPFP4VWEgBGEwAQ8IRkXoYVTeQZX5UHDkIPXtSGRxci4VLYOxGBT7EWMn UoYlGJOhSFNmWZmkUEOxJDNnIVQ7SAVhBAPaIM2DXd HkWNUsSYBlQEYtBNCxBYZrmz2OAGJkQJH6ICCaSLHhTNRfQPCuJXdoKEEyUGR7OaPhIVAyXNRuWM8DXh HbCLDeKHt6PQStRDYvFWKpso1YBXClATUxPQA9LFXsIGOwZDVdTJnrAXLwWNOiGjC2JLKlYTEzDA4XUy FeVBUxMPW5WiNcRMQyTUXfih3MIMKwQJVzDYY6XKOd KWKgOHKdBZvjGBAqGBM9UFgrKBIxVIEdDU5WLiGbUMYmRKo8LyVlJQOmZWKdbl3IZFQkGEZdZvUvMUNl KWRhCZWpJRlfKYMpVPUwAPP3NSBvVZQlRO8CNzGdCXLkQbPbLXQiLRJnKTDyeu2COWElZOEpABnvKCBk PKYaXGCgPMvzYPNjBIZ1TUG3JOCiFHQwYA5WGkRbQZ LpFnuySJXvGOOgKJJszf3XFLDxRYRaSEZ2HwAhRMFsOMNfZLwhCONdOKR9LKk0FRNoDNWwOI3BDnInXF PcAcbfTDStFXIfFYDwud3XPPPaULLqRZA4FDChRHTgUOYxKOppLEMeFNFbPbLqCDUmRXXpZC7VWsTdBO DwCjD1ZlWyTWFuMAHoen1JESYqNVLxJGE7ZWCdRCVq GHQxVDuxCKEyAVKiRom2KLIsLGBsUG1IOhMyQQQeWlU7YgFkDFBcUQOqmc4VWMFsGWD5DwAiYMBoKERv XQQiMFgwLBMiKRClAdR3EZLdSFAyOY9BJjMcUXWfABT2AuwnQDFgFNBhsy2QMJKdFUK6QSR6EOTiXXPy JBVlQIeiKDAhTBJ8MhS8HFRyJBQlJI0QWpUzIFOrAT ZgGibqOOBrWFNzsy2JLCNdWRG2BNZ4CsCzWLOgDAClRGzwTOWkGGL0TGP4ZPCfLPZbWD9OLcRjIJCjMN T4XYweKJFhENVywd7IKHSzGDK3YqE4KCWkNUFxSRLyXDzoUIFlAHD2AMWmJSNbVFOyQB5EKuNsACLwKZ rcDXSpXLSjMFKqjo9VUUEnBVN9CKs9WBDwXVAbUTXr LBkbMETpMUV0DDNwGYWiAUYeYV6IAfBoMSKqOQchWUMgBOLtDWCxid4YkYMdtWpqbh4GWVrXCy5EvSyx HFE4IXqiXg7wlAH6ZEXwVGXAIk6YhsUcBGJaIXNXVKaxGYWaJWU9ZdcsMjW4CEZ9JZX3G4Z1HMXgNurb IqShWvh6DYa3JhQ4DuG0ZTCpHHHfPuB0HQLwGZXmYY FjOWQyZmZmODQwNzk+IK6iODn+Um8Dp2LnadZ3ziNwZQv0VYHjJQ7FUYQQM6VXAy== ID Date Data Source [id number] 08/20/2020 11:18:28 AM EDT [facility] 1.6Serum levels of PSA should not be int erpreted as absolute evidence of the presence or absence of Cancer. Results obtained with different methods cannot be used interchangeably. This method is manufactured by [employer] and is an electrochemiluminesence immunoassay. Name Value Range Interpretation Code Description Data Belinda rce(s) Supporting Document(s) Leukocytes [#/volume] in Blood by Automated count 6.3 10*3/uL 4-10 [facility] Erythrocytes [#/volume] in Blood by Automated count 4.32 10*6/uL 4.6- 6.1 L [facility] Hemoglobin [Mass/volume] in Blood 13.6 g/dL 13.5-18 [facility] Hematocrit [Volume Fraction] of Blood by Automated count 41.6 % 4 1-53 [facility] Erythrocyte mean corpuscular volume [Entitic volume] by Auto mated count 96.3 fL 80-96 H [facility] Erythrocyte mean corpuscular hemoglobin [Entitic mass] by Automated count 31.4 pg 27-33 [facility] Erythrocyte mean corpuscular hemoglobin concentration [Mass/volume] by Automated count 32.6 g/dL 32.0-36.0 [facility] distribution width [Ratio] by Automated count 13.9 % 11.5-14.5 [facility] Platelets [#/volume] in Blood by Automated count 290 10*3/uL 150-400 [facility] Differential cell count method - Blood [facility] Neutrophils/100 leukocytes in Blood by Automated count 58 % [facility] Lymphocytes/100 leukocytes in Blood by Automated count 33 % [facility] Monocytes/100 leukocytes in Blood by Automated count 6 % [facility] Eosinophils/100 leukocytes in Blood by Automated count 2 % [facility] Basophils/100 leukocytes in Blood by Automated count 1 % [facility] Neutrophils [#/volume] in Blood by Automated count 3.62 10*3/uL 1.8-7 .0 [facility] Lymphocytes [#/volume] in Blood by Automated count 2.12 10*3/uL 1.2-4 .0 [facility] Monocytes [#/volume] in Blood by Automated count 0.41 10*3/uL 0-0.8 [facility] Eosinophils [#/volume] in Blood by Automated count 0.15 10*3/uL 0-0.5 [facility] Basophils [#/volume] in Blood by Automated count 0.04 10*3/uL 0-0.2 [facility] Nucleated erythrocytes/100 leukocytes [Ratio] in Blood by Automated count 0 /100{WBCs} 0-0 [facility] ID Date Data Source [id number] 08/20/2020 12:02:10 PM EDT [facility] 1.6Serum levels of PSA should not be int erpreted as absolute evidence of the presence or absence of Cancer. Results obtained with different methods cannot be used interchangeably. This method is manufactured by [employer] and is an electrochemiluminesence immunoassay. Name Value Range Interpretation Code Description Data Belinda rce(s) Supporting Document(s) Albumin [Mass/volume] in Serum or Plasma by Bromocresol green (BCG) dye binding method 4.5 g/dL 3.5-5.2 [facility] Bilirubin.total [Mass/volume] in Serum or Plasma 0.2 mg/dL <1.2 [facility] Calcium [Mass/volume] in Serum or Plasma 9.4 mg/dL 8.6-10.0 [facility] Chloride [Moles/volume] in Serum or Plasma 103 mmol/L 98-107 [facility] Creatinine [Mass/volume] in Serum or Plasma 0.82 mg/dL 0.70-1.20 [facility] Glucose [Mass/volume] in Serum or Plasma 106 mg/dL 70-140 [facility] Alkaline phosphatase [Enzymatic activity/volume] in Serum or Plasma 97 U/L 40-129 [facility] Potassium [Moles/volume] in Serum or Plasma 4.0 mmol/L 3.4-5.1 [facility] Protein [Mass/volume] in Serum or Plasma 7.0 g/dL 6.4-8.3 [facility] Sodium [Moles/volume] in Serum or Plasma 137 mmol/L 136-145 [facility] Aspartate aminotransferase [Enzymatic activity/volume] in Serum or Plasma 22 U/L <40 [facility] Urea nitrogen [Mass/volume] in Serum or Plasma 16 mg/dL 8-23 [facility] Osmolality of Serum or Plasma by calculation 286 mosm/kg 275-300 [facility] Creatinine/Urea nitrogen [Mass Ratio] in Serum or Plasma 20 [facility] Bicarbonate [Moles/volume] in Serum 24 mmol/L 22-29 [facility] Alanine aminotransferase [Enzymatic activity/volume] in Seru m or Plasma 36 U/L <41 [facility] Anion gap 3 in Serum or Plasma 10 mmol/L 8-15 [facility] Glomerular filtration rate/1.73 sq M pre dicted among non-blacks [Volume Rate/Area] in Serum or Plasma by Creatinine-based formula (MDRD) >6 0 [facility] Glomerular filtration rate/1.73 sq M pre dicted among blacks [Volume Rate/Area] in Serum or Plasma by Creatinine-based formula (MDRD) >60 [facility] ID Date Data Source [id number] 08/20/2020 12:14:09 PM EDT [facility] 1.6Serum levels of PSA should [...] [Mass/volume] in Serum or Plasma 0.4 ng/mL [facility] Not Applicable ID Date Data Source [id number] 08/17/2020 10:03:13 AM EDT [facility] Name Value Range Interpretation Code Description Data Belinda rce(s) Supporting Document(s) Progress Note [facility] [id number]rGKpHyPzGbHDPq lbm [file] [id number]/[id number]X23AmCQqgjkba6FbX+mejía/z86pz5o9X [file] [id number] ID Date Data Source [id number] 06/07/2020 05:09:38 AM EST [facility] Name Value Range Interpretation Code Description Data Belinda rce(s) Supporting Document(s) Progress Note [facility] [id number]/ISLeoNDNgn9LgUQkxPSx3XGxcSCOyY4MmUFT7xH6fUIZ2WNzTZoCxQnZcArF4 lbm [file] OWEySqb0XqPaQTZ4V5TtGbA3JAN7PMZuTck9UvIz YV1NMv8TQrP6SVG7tNHiMr2CMfS7ZYOKDwFqGQ8UCIe= ID Date Data Source [id number] 06/07/2020 05:09:33 AM EST [facility] Name Value Range Interpretation Code Description Data Belinda rce(s) Supporting Document(s) Progress Note [facility] [id number]/FJXzgLYVoz2OiFMopTKl8WLjbDVSjA0TzKDC0jV4iZLL4JVoMXbRhQsBdBbY6 lbm [file] [id number]= ID Date Data Source [id number] 06/02/2020 09:23:36 AM [facility] Name Value Range Interpretation Code Description Data Belinda rce(s) Supporting Document(s) Progress Note [facility] [id number]/[id number]InK2WtKHX9wG7aRTQ5HVxWNpKaTgGaDyFe lbm [file] [id number]+FMocrMOzhFboPPPKAqEfQFn5XXljSXLWFi0G ID Date Data Source [id number] 05/21/2020 10:24:20 AM [facility] 1.4Serum levels of PSA should not be int erpreted as absolute evidence of the presence or absence of Cancer. Results obtained with different methods cannot be used interchangeably. This method is manufactured by [employer] and is an electrochemiluminesence immunoassay. Name Value Range Interpretation Code Description Data Belinda rce(s) Supporting Document(s) Leukocytes [#/volume] in Blood by Automated count 5.5 10*3/uL 4-10 [facility] Erythrocytes [#/volume] in Blood by Automated count 4.34 10*6/uL 4.6- 6.1 L [facility] Hemoglobin [Mass/volume] in Blood 13.5 g/dL 13.5-18 [facility] Hematocrit [Volume Fraction] of Blood by Automated count 41.6 % 4 1-53 [facility] Erythrocyte mean corpuscular volume [Entitic volume] by Auto mated count 95.8 fL 80-96 [facility] Erythrocyte mean corpuscular hemoglobin [Entitic mass] by Automated count 31.2 pg 27-33 [facility] Erythrocyte mean corpuscular hemoglobin concentration [Mass/volume] by Automated count 32.5 g/dL 32.0-36.0 [facility] Erythrocyte distribution width [Ratio] by Automated count 15.7 % 11.5-14.5 H [facility] Platelets [#/volume] in Blood by Automated count 276 10*3/uL 150-400 [facility] Differential cell count method - Blood [facility] Neutrophils/100 leukocytes in Blood by Automated count 48 % [facility] Lymphocytes/100 leukocytes in Blood by Automated count 39 % [facility] Monocytes/100 leukocytes in Blood by Automated count 8 % [facility] Eosinophils/100 leukocytes in Blood by Automated count 4 % [facility] Basophils/100 leukocytes in Blood by Automated count 1 % [facility] Neutrophils [#/volume] in Blood by Automated count 2.67 10*3/uL 1.8-7 .0 [facility] Lymphocytes [#/volume] in Blood by Automated count 2.16 10*3/uL 1.2-4 .0 [facility] Monocytes [#/volume] in Blood by Automated count 0.43 10*3/uL 0-0.8 [facility] Eosinophils [#/volume] in Blood by Automated count 0.23 10*3/uL 0-0.5 [facility] Basophils [#/volume] in Blood by Automated count 0.05 10*3/uL 0-0.2 [facility] Nucleated erythrocytes/100 leukocytes [Ratio] in Blood by Automated count 0 /100{WBCs} 0-0 [facility] ID Date Data Source [id number] 05/21/2020 11:33:10 AM [facility] 1.4Serum levels of PSA should not be int erpreted as absolute evidence of the presence or absence of Cancer. Results obtained with different methods cannot be used interchangeably. This method is manufactured by [employer] and is an electrochemiluminesence immunoassay. Name Value Range Interpretation Code Description Data Belinda rce(s) Supporting Document(s) Prostate Specific Ag Free [Mass/volume] in Serum or Plasma 0.3 ng/mL [facility] Not Applicable ID Date Data Source [id number] 05/21/2020 11:35:30 AM [facility] 1.4Serum levels of PSA should not be int erpreted as absolute evidence of the presence or absence of Cancer. Results obtained with different methods cannot be used interchangeably. This method is manufactured by [employer] and is an electrochemiluminesence immunoassay. Name Value Range Interpretation Code Description Data Belinda rce(s) Supporting Document(s) Albumin [Mass/volume] in Serum or Plasma by Bromocresol green (BCG) dye binding method 4.3 g/dL 3.5-5.2 [facility] Bilirubin.total [Mass/volume] in Serum or Plasma 0.3 mg/dL <1.2 [facility] Calcium [Mass/volume] in Serum or Plasma 10.1 mg/dL 8.6-10.0 H [facility] Chloride [Moles/volume] in Serum or Plasma 104 mmol/L 98-107 [facility] Creatinine [Mass/volume] in Serum or Plasma 0.88 mg/dL 0.70-1.20 [facility] Glucose [Mass/volume] in Serum or Plasma 108 mg/dL 70-140 [facility] Alkaline phosphatase [Enzymatic activity/volume] in Serum or Plasma 95 U/L 40-129 [facility] Potassium [Moles/volume] in Serum or Plasma 4.1 mmol/L 3.4-5.1 [facility] Protein [Mass/volume] in Serum or Plasma 7.2 g/dL 6.4-8.3 [facility] Sodium [Moles/volume] in Serum or Plasma 139 mmol/L 136-145 [facility] Aspartate aminotransferase [Enzymatic activity/volume] in Serum or Plasma 20 U/L <40 [facility] Urea nitrogen [Mass/volume] in Serum or Plasma 23 mg/dL 6-20 H [facility] Osmolality of Serum or Plasma by calculation 292 mosm/kg 275-300 [facility] Creatinine/Urea nitrogen [Mass Ratio] in Serum or Plasma 26 [facility] Bicarbonate [Moles/volume] in Serum 22 mmol/L 22-29 [facility] Alanine aminotransferase [Enzymatic activity/volume] in Seru m or Plasma 29 U/L <41 [facility] Anion gap 3 in Serum or Plasma 13 mmol/L 8-15 [facility] Glomerular filtration rate/1.73 sq M pre dicted among non-blacks [Volume Rate/Area] in Serum or Plasma by Creatinine-based formula (MDRD) >6 0 [facility] Glomerular filtration rate/1.73 sq M pre dicted among blacks [Volume Rate/Area] in Serum or Plasma by Creatinine-based formula (MDRD) >60 [facility] ID Date Data Source [id number] 02/25/2020 04:11:17 PM EDT [facility] Name Value Range Interpretation Code Description Data Belinda rce(s) Supporting Document(s) Progress Note [facility] [id number]/HJYqiBNAww8YaQKtmQVw2ZFvyKDXbC3ReLGL5xT4jSTB3DEpDInFdIbFbOUP3 lbm [file] YLAbOBU9KZR+PW5pXRc+Xj9Ux0QshqC4jhOuWWcjPok8QC3OFYZHM7BDAm== ID Date Data Source [id number] 02/20/2020 08:10:09 AM EDT [facility] Name Value Range Interpretation Code Description Data Belinda rce(s) Supporting Document(s) Progress Note [facility] JQXXSq5oVzUVVtXy25/VGCejGPZxn0NmLXhzAZn8CHqeGETkD3TxRKL3dD5mARJ8PBoFXsMfUxIiINCi lbm [file] ICAgICAgICAgICAgICAgICAgICAgICAgICAgICAgIC AgICAgICAgICAgICAgICAgICAgICAgICANCiAgICAgICAgICAgICAgICAgICAgICAgICAgICAgICAgIC AgICAgICAgICAgICAgICAgICAgICAgICAgICAgICAgICAgICAgICAgICAgICAgICAgICAgICAgICAgIC AgICAgICANCiAgICAgICAgICAgICAgICAgICAgICAg ICAgICAgICAgICAgICAgICAgICAgICAgICAgICAgICAgICAgICAgICAgICAgICAgICAgICAgICAgICAg ICAgICAgICAgICAgICAgICANCiAgICAgICAgICAgICAgICAgICAgICAgICAgICAgICAgICAgICAgICAg ICAgICAgICAgICAgICAgICAgICAgICAgICAgICAgIC AgICAgICAgICAgICAgICAgICAgICAgICAgICANCiAgICAgICAgICAgICAgICAgICAgICAgICAgICAgIC AgICAgICAgICAgICAgICAgICAgICAgICAgICAgICAgICAgICAgICAgICAgICAgICAgICAgICAgICAgIC AgICAgICAgICANCiAgICAgICAgICAgICAgICAgICAg ICAgICAgICAgICAgICAgICAgICAgICAgICAgICAgICAgICAgICAgICAgICAgICAgICAgICAgICAgICAg ICAgICAgICAgICAgICAgICAgICANCiAgICAgICAgICAgICAgICAgICAgICAgICAgICAgICAgICAgICAg ICAgICAgICAgICAgICAgICAgICAgICAgICAgICAgIC AgICAgICAgICAgICAgICAgICAgICAgICAgICAgICANCiAgICAgICAgICAgICAgICAgICAgICAgICAgIC AgICAgICAgICAgICAgICAgICAgICAgICAgICAgICAgICAgICAgICAgICAgICAgICAgICAgICAgICAgIC AgICAgICAgICAgICANCiAgICAgICAgICAgICAgICAg ICAgICAgICAgICAgICAgICAgICAgICAgICAgICAgICAgICAgICAgICAgICAgICAgICAgICAgICAgICAg ICAgICAgICAgICAgICAgICAgICAgICANCiAgICAgICAgICAgICAgICAgICAgICAgICAgICAgICAgICAg ICAgICAgICAgICAgICAgICAgICAgICAgICAgICAgIC AgICAgICAgICAgICAgICAgICAgICAgICAgICAgICAgICANCjw/nIAiA7uliCIacvJ8Y9wuRv7VWy0QWM 3mv0PiBYLxTCwwepReEstEOqHuRBUsRniAGdw0RAfoSJ2DrLKjK1EoD7LrDMrsDT0JBKMjPLHxsWWzZM FvBYVvYxL1KMYxYFthGF1PuZKsQOiuMODaMLFyNJZj OZWyMEPnJRHOQXSjQMSzSkCrRPXdDEJxYRAlVVCZYIW9TRCwNjTfPUksTM1Tg3FvfUE1QNj+Kb9FGL6w l8BsSKroCYDiAN4bmw2BYNuOCrKkL0QatpZ0ASG4CKKdWp6VFDCkXMChfXHsWxEuWLYIXqCfE1SqtK92 IDENCj4+UCnxmzTuEshZYgE0HBUzn4GeFSx2TM3RDH UyFYw2sYLzQEGjL8Fvm9ZjQv15KQIdWfqbPoUwfaWtGARAQMCbkoPxNVBWHFMlkVHrBN8dKf1eZITsSK WjOkW6OGXGFI7VWJVaHAOyyPEgOPExPDXKUC7AUWwyBKP9KVNzopTrfIOuILgtNZ6DWAFknrWqXjWpJD BSDQo+Tw7GBU9gi8PsIVe4KOTkm5QkKHx4UI3BDRDq XRzgMTHqON2ni4SkP9H3XaV5cFLrK2uotcjnP1VeygSvwwJsEBCuOEKoRW0LSW7GRI4TAZTaLQfzFL1M GII0WGv0RhG5JYwzIBWdLDIlVq0uSTwrRE3ITJb2I4SyE3NOQSRfOOUBLYQluYQ3NEPWDi0AL6LZYavV DGELRd5LZlRqB0CNB9nZM05MRW6YOKU+PiANCj4+DQ amwqYhVazPKaO2ROBhh3RtGWu8BC1YXESzZRdgED3KPYAllQ2eIHjhXP5CWxUcYeOxDLVJPzItD39pxI HbFXj7E0ThSkRgFIBxJbaiOKRpHHnqQoUmBKHsJdVoYJhaFK4+ID4+LLzwYG1BGGtnnoObKIWuZj8IAP CoSPFuYB9lFDRyHLZrF3D3pOcmTGQWJyLtE8kakgaj BJ4xGFKqM509vDvzogHlBRS1OMWbOl7RIFJwSOM3GVNukRWzEiLiQYPRIRewHE1RtZYkHVR0vU7sKYho PEIkVMOnC6kIDhTmeOdfMA42dGmmgvXtdWJyLAl+Hy6LSX4uj8DrAVj6ukKjHPzbBFA8VMkuWWLhNMGj JKEdFRW3PAR9OJSNXiWvYZUhYQCuHGieSVYdPLXldv 1UTDWhJJK3XOOaUOClBHCbKNDoXVdgVYIyIKMeYtT8JYChAXCeRE8KMdYdXDPpJNFcCXrdMICzHPPenv 7OZLDdNTYeThv4OBBgXRLzJNGaFVulYTDoNEXmNkP8DDGfWKYaAM6UNwFoORCvTHNsKwRvPFUsQYQksk 0FWWOnPIRhLJDaNACySBKxBFOuZLpzKDTuJID3OEA2 PITzVRVaMC5LFnBoGYKuHIC6BQtiUDRvEVYqti4JQORkTUIjKvC0OxJeEFDgEESxVRfnUONqRCO3FvK3 ZESkOCYlJK9PEcVuQJPzPQY7XrCmQWFrMXUirx2UFXQqOOAfPHC6IjUgMAHtVJAoHGkfXKGaGLK1DUo5 XFOyMQNcKA9KVjHqQTBoMsH1DKMeCRHeNTWxdg8SCO OmUIDwTYyjFwZmNISqULCgNAvoDQEnBSO1IPM5IEOvBVXoAY4UVwTqAEZxJfEtKjMwWLSdQKNyxi9DLN NbULRvLGE3KTZnEQLpKJYqQQryOMVxZKW2Ayu2VJDxXOSoEC4YFeAvOAJbJeU5HxPkKTSxCBHime9LCU RdXATrObFdJWXxOGIfHBUiTZyjDUAeRGB8JvDcSUIh SZLvPK5VRvFxPRPkWiA3FAkqYEAeEANlzs8IPEWaKXWnGIU8DIRvQTVwMVHdLIzrVWHvWHZ1Kse0LARa VQLuJL7YOeMhKVQeNap5DRJmIFChERDtte4LVLYoYCGaSFLbTwTnMWQkIWHuSVwmRRIeGIK4Pfb7BRVf FXBiIH5TTpDkBMCcKMHoNnJjVUAeDHLsee5TSMJfTF R1NQCeMQGjKNXsSTIzBQbaDGTaGOTcQLb5HWRcSMBxGB2NLiZxQIBkMXBwNEOkSRKmYXCixt6EEISjVX R0QeK5TPXnETVuTGRiVLjyZGLlNCTqEMF9ZKIiTWPfEV7XIuLeQFTwVAA6AIKuVHDdYYMreh7SjYJatK pnfx2NDJuZRx9EgKwjTIP3WRdnBc1tfTOyYnIkMQQY Nf0EaxEuOKKsJLRZEGtrHMTmQSG0NRC7KRDgDIA0HVK9XqEvAeViC4YdEEIrXfP6RfV7WoR1UptgNjv8 RwS1HFjiCYwmNYZyMHNcQGK7OeRcSCeaMSM+ET6wXWa+Cj5Qb7InmvO9snZoZAy1JyXoLy6MIWNWI6VN Cg== ID Date Data Source [id number] 02/19/2020 03:05:47 PM EDT [facility] 1.2Serum levels of PSA should not be int erpreted as absolute evidence of the presence or absence of Cancer. Results obtained with different methods cannot be used interchangeably. This method is manufactured by [employer] and is an electrochemiluminesence immunoassay. Name Value Range Interpretation Code Description Data Belinda rce(s) Supporting Document(s) Leukocytes [#/volume] in Blood by Automated count 6.3 10*3/uL 4-10 [facility] Erythrocytes [#/volume] in Blood by Automated count 4.06 10*6/uL 4.6- 6.1 L [facility] Hemoglobin [Mass/volume] in Blood 12.7 g/dL 13.5-18 L [facility] Hematocrit [Volume Fraction] of Blood by Automated count 38.3 % 4 1-53 L [facility] Erythrocyte mean corpuscular volume [Entitic volume] by Auto mated count 94.2 fL 80-96 [facility] Erythrocyte mean corpuscular hemoglobin [Entitic mass] by Automated count 31.4 pg 27-33 [facility] Erythrocyte mean corpuscular hemoglobin concentration [Mass/volume] by Automated count 33.3 g/dL 32.0-36.0 [facility] E[facility]th[facility] distribution width [Ratio] by Automated count 15.2 % 11.5-14.5 H [facility] Platelets [#/volume] in Blood by Automated count 313 10*3/uL 150-400 [facility] Differential cell count method - Blood [facility] Neutrophils/100 leukocytes in Blood by Automated count 58 % [facility] Lymphocytes/100 leukocytes in Blood by Automated count 33 % [facility] Monocytes/100 leukocytes in Blood by Automated count 6 % [facility] Eosinophils/100 leukocytes in Blood by Automated count 2 % [facility] Basophils/100 leukocytes in Blood by Automated count 1 % [facility] Neutrophils [#/volume] in Blood by Automated count 3.61 10*3/uL 1.8-7 .0 [facility] Lymphocytes [#/volume] in Blood by Automated count 2.10 10*3/uL 1.2-4 .0 [facility] Monocytes [#/volume] in Blood by Automated count 0.39 10*3/uL 0-0.8 [facility] Eosinophils [#/volume] in Blood by Automated count 0.14 10*3/uL 0-0.5 [facility] Basophils [#/volume] in Blood by Automated count 0.07 10*3/uL 0-0.2 [facility] Nucleated erythrocytes/100 leukocytes [Ratio] in Blood by Automated count 0 /100{WBCs} 0-0 [facility] ID Date Data Source [id number] 02/19/2020 04:03:[address] [facility] 1.2Serum levels of PSA should not be int erpreted as absolute evidence of the presence or absence of Cancer. Results obtained with different methods cannot be used interchangeably. This method is manufactured by [employer] and is an electrochemiluminesence immunoassay. Name Value Range Interpretation Code Description Data Belinda rce(s) Supporting Document(s) Prostate Specific Ag Free [Mass/volume] in Serum or Plasma 0.3 ng/mL [facility] Not Applicable ID Date Data Source [id number] 02/19/2020 04:05:[address] [facility] 1.2Serum levels of PSA should not be int erpreted as absolute evidence of the presence or absence of Cancer. Results obtained with different methods cannot be used interchangeably. This method is manufactured by [employer] and is an electrochemiluminesence immunoassay. Name Value Range Interpretation Code Description Data Belinda rce(s) Supporting Document(s) Albumin [Mass/volume] in Serum or Plasma by Bromocresol green (BCG) dye binding method 4.0 g/dL 3.5-5.2 [facility] Bilirubin.total [Mass/volume] in Serum or Plasma <1.2 [facility] Calcium [Mass/volume] in Serum or Plasma 9.3 mg/dL 8.6-10.0 [facility] Chloride [Moles/volume] in Serum or Plasma 105 mmol/L 98-107 [facility] Creatinine [Mass/volume] in Serum or Plasma 0.84 mg/dL 0.70-1.20 [facility] Glucose [Mass/volume] in Serum or Plasma 95 mg/dL 70-140 [facility] Alkaline phosphatase [Enzymatic activity/volume] in Serum or Plasma 77 U/L 40-129 [facility] Potassium [Moles/volume] in Serum or Plasma 4.1 mmol/L 3.4-5.1 [facility] Hemolyzed Protein [Mass/volume] in Serum or Plasma 6.5 g/dL 6.4-8.3 [facility] Sodium [Moles/volume] in Serum or Plasma 138 mmol/L 136-145 [facility] Aspartate aminotransferase [Enzymatic activity/volume] in Serum or Plasma 21 U/L <40 [facility] Urea nitrogen [Mass/volume] in Serum or Plasma 18 mg/dL 6-20 [facility] Osmolality of Serum or Plasma by calculation 288 mosm/kg 275-300 [facility] Creatinine/Urea nitrogen [Mass Ratio] in Serum or Plasma 21 [facility] Bicarbonate [Moles/volume] in Serum 20 mmol/L 22-29 L [facility] Alanine aminotransferase [Enzymatic activity/volume] in Seru m or Plasma 17 U/L <41 [facility] Anion gap 3 in Serum or Plasma 13 mmol/L 8-15 [facility] Glomerular filtration rate/1.73 sq M pre dicted among non-blacks [Volume Rate/Area] in Serum or Plasma by Creatinine-based formula (MDRD) >6 0 [facility] Glomerular filtration rate/1.73 sq M pre dicted among blacks [Volume Rate/Area] in Serum or Plasma by Creatinine-based formula (MDRD) >60 [facility] Procedure Social History Code Duration Value Status Description Data Source(s ) Alcohol intake 03/21/2021 12:00:00 AM EST Current non-d ibrahima of alcohol (finding) completed Current non-drinker of alcohol (finding) [facility] Smoking 02/22/2021 12:00:00 AM EDT Former Smoker completed Former Smoker [email or web address] ([facility]) Smoking 02/22/2021 12:00:00 AM EDT Former Smoker completed Former Smoker [email or web address] ([facility]) Smoking 02/22/2021 12:00:00 AM EDT Former Smoker completed Former Smoker [email or web address] ([facility]) Smoking 02/22/2021 12:00:00 AM EDT Former Smoker completed Former Smoker [email or web address] ([facility]) Smoking 02/22/2021 12:00:00 AM EDT Former Smoker completed Former Smoker eCW1 ([facility]) Smoking 02/22/2021 12:00:00 AM EDT Former Smoker completed Former Smoker [email or web address] ([facility]) Alcohol intake 01/11/2021 12:00:00 AM EDT Current non-d ibrhaima of alcohol (finding) completed Current non-drinker of alcohol (finding) [facility] Alcohol intake 12/28/2020 12:00:00 AM EDT Current non-d ibrahima of alcohol (finding) completed Current non-drinker of alcohol (finding) [facility] Alcohol intake 12/22/2020 12:00:00 AM EDT Current non-d ibrahima of alcohol (finding) completed Current non-drinker of alcohol (finding) [facility] Alcohol intake 12/14/2020 12:00:00 AM EDT Current non-d ibrahima of alcohol (finding) completed Current non-drinker of alcohol (finding) [facility] Alcohol intake 11/24/2020 12:00:00 AM EDT Current non-d ibrahima of alcohol (finding) completed Current non-drinker of alcohol (finding) [facility] Alcohol intake 11/23/2020 12:00:00 AM EDT Current non-d ibrahima of alcohol (finding) completed Current non-drinker of alcohol (finding) [facility] Alcohol intake 11/16/2020 12:00:00 AM EDT Current non-d ibrahima of alcohol (finding) completed Current non-drinker of alcohol (finding) [facility] Smoking 10/20/2020 12:00:00 AM EDT Former Smoker completed Former Smoker [email or web address] ([facility]) Smoking 10/20/2020 12:00:00 AM EDT Former Smoker completed Former Smoker eCW1 ([facility]) Smoking 10/20/2020 12:00:00 AM EDT Former Smoker completed Former Smoker eCW1 ([facility]) Smoking 10/20/2020 12:00:00 AM EDT Former Smoker completed Former Smoker eCW1 ([facility]) Smoking 10/20/2020 12:00:00 AM EDT Former Smoker completed Former Smoker eCW1 ([facility]) Smoking 10/20/2020 12:00:00 AM EDT Former Smoker completed Former Smoker eCW1 ([facility]) Smoking 10/20/2020 12:00:00 AM EDT Former Smoker completed Former Smoker eCW1 ([facility]) Smoking 10/20/2020 12:00:00 AM EDT Former Smoker completed Former Smoker eCW1 ([facility]) Smoking 10/20/2020 12:00:00 AM EDT Former Smoker completed Former Smoker eCW1 ([facility]) Smoking 10/20/2020 12:00:00 AM EDT Former Smoker completed Former Smoker eCW1 ([facility]) Smoking 10/20/2020 12:00:00 AM EDT Former Smoker completed Former Smoker eCW1 ([facility]) Smoking 10/20/2020 12:00:00 AM EDT Former Smoker completed Former Smoker eCW1 ([facility]) Smoking 10/20/2020 12:00:00 AM EDT Former Smoker completed Former Smoker eCW1 ([facility]) Smoking 10/20/2020 12:00:00 AM EDT Former Smoker completed Former Smoker eCW1 ([facility]) Smoking 10/20/2020 12:00:00 AM EDT Former Smoker completed Former Smoker eCW1 ([facility]) Alcohol intake 10/19/2020 12:00:00 AM EDT Current non-d ibrahima of alcohol (finding) completed Current non-drinker of alcohol (finding) [facility] Smoking 08/23/2020 12:00:00 AM EDT Former Smoker completed Former Smoker eCW1 ([facility]) Smoking 08/23/2020 12:00:00 AM EDT Former Smoker completed Former Smoker eCW1 ([facility]) Smoking 08/23/2020 12:00:00 AM EDT Former Smoker completed Former Smoker eCW1 ([facility]) Smoking 08/23/2020 12:00:00 AM EDT Former Smoker completed Former Smoker eCW1 ([facility]) Alcohol intake 08/20/2020 12:00:00 AM EDT Current non-d ibrahima of alcohol (finding) completed Current non-drinker of alcohol (finding) [facility] Alcohol intake 08/17/2020 12:00:00 AM EDT Current non-d ibrahima of alcohol (finding) completed Current non-drinker of alcohol (finding) [facility] Smoking 07/19/2020 12:00:00 AM EDT Former Smoker completed Former Smoker eCW1 ([facility]) Smoking 07/19/2020 12:00:00 AM EDT Former Smoker completed Former Smoker eCW1 ([facility]) Alcohol intake 05/21/2020 12:00:00 AM EST Current non-d ibrahima of alcohol (finding) completed Current non-drinker of alcohol (finding) [facility] Smoking 05/10/2020 12:00:00 AM EST Former Smoker completed Former Smoker eCW1 ([facility]) Smoking 05/10/2020 12:00:00 AM EST Former Smoker completed Former Smoker eCW1 ([facility]) Smoking 05/10/2020 12:00:00 AM EST Former Smoker completed Former Smoker eCW1 ([facility]) Smoking 04/26/2020 12:00:00 AM EST Former Smoker completed Former Smoker eCW1 ([facility]) Smoking 04/26/2020 12:00:00 AM EST Former Smoker completed Former Smoker eCW1 ([facility]) Smoking 03/08/2020 12:00:00 AM EST Former Smoker completed Former Smoker eCW1 ([facility]) Smoking 03/08/2020 12:00:00 AM EST Former Smoker completed Former Smoker eCW1 ([facility]) Smoking 03/08/2020 12:00:00 AM EST Former Smoker completed Former Smoker eCW1 ([facility]) Smoking 03/08/2020 12:00:00 AM EST Former Smoker completed Former Smoker eCW1 ([facility]) Smoking 03/08/2020 12:00:00 AM EST Former Smoker completed Former Smoker eCW1 ([facility]) Alcohol intake 02/19/2020 12:00:00 AM EDT Current non-d ibrahima of alcohol (finding) completed Current non-drinker of alcohol (finding) [facility] Vital Signs ID Date Data Source UNK Name Value Range Interpretation Code Description Data Source(s) Body weight 202.8 [lb_av] 202.8 [lb_av] eCW1 ([facility]) Body height [in_i] eCW1 ([facility]) Body mass index (BMI) [Ratio] 30.83 kg/m2 30.83 kg/m2 eCW1 ([facility]) Heart rate 90 /min 90 /min eCW1 ([facility]) Respiratory rate 18 /min 18 /min eCW1 ([facility]) Body temperature 97.7 [degF] 97.7 [degF] eCW1 ( [facility]) Systolic blood pressure 118 mm[Hg] 118 mm[Hg] e CW1 ([facility]) Diastolic blood pressure 78 mm[Hg] 78 mm[Hg] eCW1 ([facility]) Body weight 218 [lb_av] 218 [lb_av] eCW1 ([facility]) Body height [in_i] eCW1 ([facility]) Body mass index (BMI) [Ratio] 33.14 kg/m2 33.14 kg/m2 eCW1 ([facility]) Heart rate 102 /min 102 /min eCW1 ([facility]) Respiratory rate 18 /min 18 /min eCW1 ([facility]) Body temperature 96.7 [degF] 96.7 [degF] eCW1 ( [facility]) Systolic blood pressure 116 mm[Hg] 116 mm[Hg] e CW1 ([facility]) Diastolic blood pressure 80 mm[Hg] 80 mm[Hg] eCW1 ([facility]) Body height 68 [in_i] 68 [in_i] [facility] ([facility], ) 5'8" Body weight 200.00 [lb_av] 200.00 [lb_av] MEDEN T ([facility], ) Body mass index (BMI) [Ratio] 30.4 kg/m2 30.4 k g/m2 [facility] ([facility], ) [place] body weight 154 [lb_av] 154 [lb_av] MEDEN T ([facility], ) Body weight 90.720 kg 90.720 kg [facility] ([facility]) Body surface area Derived from formula 2.04 m2 2.04 m2 MEDYARELIS ([facility], ) Body temperature 97.7 [degF] 97.7 [degF] eCW1 ( [facility]) Respiratory rate 18 /min 18 /min eCW1 ([facility]) Body weight 209 [lb_av] 209 [lb_av] eCW1 ([facility]) Body height [in_i] eCW1 ([facility]) Systolic blood pressure 138 mm[Hg] 138 mm[Hg] e CW1 ([facility]) Body mass index (BMI) [Ratio] 31.77 kg/m2 31.77 kg/m2 eCW1 ([facility]) Heart rate 106 /min 106 /min eCW1 ([facility]) Diastolic blood pressure 108 mm[Hg] 108 mm[Hg] eCW1 ([facility]) ID Date Data Source [id number] 01/13/2021 12:47:21 PM EDT [facility] Name Value Range Interpretation Code Description Data Source(s) TRANSFER FROM Outpatient Clinic/Office [facility] ID Date Data Source [id number] 01/12/2021 08:12:49 AM EDT [facility] Name Value Range Interpretation Code Description Data Source(s) TRANSFER FROM Outpatient Clinic/Office [facility] ID Date Data Source [id number] 02/04/2021 12:32:39 PM EDT [facility] Name Value Range Interpretation Code Description Data Source(s) TRANSFER FROM Outpatient Clinic/Office [facility] ID Date Data Source [id number] 12/20/2020 03:22:50 PM EDT [facility] Name Value Range Interpretation Code Description Data Source(s) WEIGHT RECORDED 173 lb 173 lb [facility] ID Date Data Source [id number] 09/04/2020 06:39:32 AM EDT [facility] Name Value Range Interpretation Code Description Data Source(s) WEIGHT RECORDED 214 lb 214 lb [facility] ID Date Data Source [id number] 08/18/2020 02:04:26 PM EDT [facility] Name Value Range Interpretation Code Description Data Source(s) WEIGHT RECORDED 208 lb 208 lb [facility] Body height Measured 67.99 in 67.99 in [facility] ID Date Data Source [id number] 07/12/2020 08:18:53 AM EDT [facility] Name Value Range Interpretation Code Description Data Source(s) WEIGHT RECORDED 213 lb 213 lb [facility] ID Date Data Source [id number] 02/25/2020 04:11:17 PM EDT [facility] Name Value Range Interpretation Code Description Data Source(s) WEIGHT RECORDED 209.6 lb 209.6 lb [facility] Body height Measured 67.99 in 67.99 in [facility] ID Date Data Source [id number] 02/20/2020 08:10:09 AM EDT [facility] Name Value Range Interpretation Code Description Data Source(s) WEIGHT RECORDED 208.8 lb 208.8 lb [facility] Patient Treatment Plan of Care Planned Activity Planned Date Details Description Data Source (s) Prednisone 10 MG Oral Tablet 03/15/2021 12:00:00 AM [facility] Abiraterone Acetate 500 MG Oral Tablet (ZYTIGA) 03/15/2021 12:00:00 AM [facility] Optifoam Gentle Foam Dressings 03/02/2021 12:00:00 AM EDT eCW1 ([facility]) Optifoam Gentle Foam Dressings 03/02/2021 12:00:00 AM EDT eCW1 ([facility]) Optifoam Gentle Foam Dressings 03/02/2021 12:00:00 AM EDT eCW1 ([facility]) Optifoam Gentle Foam Dressings 03/02/2021 12:00:00 AM EDT eCW1 ([facility]) Oxycodone Hydrochloride 15 MG Oral Tablet 02/23/2021 12:00:00 AM ED [facility] Ensure - 02/22/2021 12:00:00 AM EDT e CW1 ([facility]) Ensure - 02/22/2021 12:00:00 AM EDT e CW1 ([facility]) Ensure - 02/22/2021 12:00:00 AM EDT e CW1 ([facility]) Ensure - 02/22/2021 12:00:00 AM EDT e CW1 ([facility]) Ensure - 02/22/2021 12:00:00 AM EDT e CW1 ([facility]) Ensure - 02/22/2021 12:00:00 AM EDT e CW1 ([facility]) Folic Acid 1 MG Oral Tablet 01/18/2021 12:00:00 AM [facility] salmon calcitonin 200 UNT/ACTUAT Nasal [place] 01/17/2021 12:00:00 AM [facility] ferrous gluconate 324 MG Oral Tablet 01/17/2021 12:00:00 AM [facility] salmon calcitonin 200 UNT/ACTUAT Nasal [place] 01/17/2021 12:00:00 AM [facility] salmon calcitonin 200 UNT/ML Injectable Solution 01/17/2021 12:00:0 0 AM [facility] salmon calcitonin 200 UNT/ML Injectable Solution 01/17/2021 12:00:0 0 AM [facility] Acetaminophen 325 MG Oral Tablet 01/11/2021 05:17:54 PM [facility] Carisoprodol 350 MG Oral Tablet 01/11/2021 05:17:53 PM [facility] Ondansetron 8 MG Oral Tablet 01/11/2021 05:17:53 PM [facility] lidocaine (XYLOCAINE) 2 % urojet 20 mL 12/22/2020 12:00:00 PM [facility] sennosides, HALFWAY 8.6 MG Oral Tablet 12/14/2020 12:00:00 AM [facility] Docusate Sodium 50 MG / sennosides, HALFWAY 8.6 MG Oral Ta blet 12/14/2020 12:00:00 AM [facility] POLYETHYLENE GLYCOL 3350 142 MG/ML Oral Solution 12/14/2020 12:00:0 0 AM [facility] Lactulose 667 MG/ML Oral Solution 12/14/2020 12:00:00 AM [facility] Oxycodone Hydrochloride 15 MG Oral Tablet 12/10/2020 12:00:00 AM [facility] Self-Cath Coude Tip 11/29/2020 12:00:00 AM [facility] Ondansetron 8 MG Oral Tablet 11/23/2020 12:00:00 AM [facility] Prochlorperazine 10 MG Oral Tablet 11/23/2020 12:00:00 AM [facility] Prednisone 10 MG Oral Tablet 11/23/2020 12:00:00 AM [facility] Morphine Sulfate 15 MG Extended Release Oral Tablet 11/17/19 12:00:00 AM [facility] Oxycodone Hydrochloride 15 MG Oral Tablet 11/11/2020 12:00:00 AM [facility] Ciprofloxacin 500 MG Oral Tablet [Cipro] 10/20/2020 12:00:00 AM EDT [facility] ([facility]) Ciprofloxacin 500 MG Oral Tablet [Cipro] 10/20/2020 12:00:00 AM EDT eC ([facility]) Ciprofloxacin 500 MG Oral Tablet [Cipro] 10/20/2020 12:00:00 AM EDT eC ([facility]) Ciprofloxacin 500 MG Oral Tablet [Cipro] 10/20/2020 12:00:00 AM EDT eC ([facility]) Oxycodone Hydrochloride 15 MG Oral Tablet 10/11/2020 12:00:00 AM [facility] Oxycodone Hydrochloride 15 MG Oral Tablet 09/10/2020 12:00:00 AM [facility] Oxycodone Hydrochloride 15 MG Oral Tablet 08/12/2020 12:00:00 AM [facility] enzalutamide 40 MG Oral Capsule [Xtandi] 06/14/2020 12:00:00 AM [facility] Oxycodone Hydrochloride 15 MG Oral Tablet 05/11/2020 12:00:00 AM [facility] gabapentin 300 MG Oral Capsule 03/08/2020 12:00:00 AM [place] [address] ([facility]) gabapentin 300 MG Oral Capsule 03/08/2020 12:00:00 AM [place] [address] ([facility]) gabapentin 300 MG Oral Capsule 03/08/2020 12:00:00 AM EST eCW1 ([facility]) gabapentin 300 MG Oral Capsule 03/08/2020 12:00:00 AM EST eCW1 ([facility]) gabapentin 300 MG Oral Capsule 03/08/2020 12:00:00 AM EST eCW1 ([facility]) Oxycodone Hydrochloride 15 MG Oral Tablet 02/12/2020 12:00:00 AM [facility] Pentoxifylline 400 MG Extended Release Oral Tablet 12/01/2018 12 :00:00 AM [facility] Catheters (BARD COUDE TIP CATHETER) MISC 10/30/2018 12:00:00 AM [facility] irbesartan 300 MG Oral Tablet 10/15/2018 12:00:00 AM [facility] Losartan Potassium 50 MG Oral Tablet 01/17/2018 12:00:00 AM [facility] atorvastatin 20 MG Oral Tablet 01/07/2018 12:00:00 AM [facility] Amlodipine 10 MG Oral Tablet 09/17/2017 12:00:00 AM [facility] 12 HR Orphenadrine Citrate 100 MG Extended Release Ora l Tablet 09/14/2017 12:00:00 AM [facility] Calcium Carbonate 1500 MG Oral Tablet [facility] Losartan Potassium 25 MG Oral Tablet [facility] Losartan Potassium 25 MG Oral Tablet [facility] Diclofenac Sodium 50 MG Delayed Release Oral Tablet [facility] Leuprolide Acetate (LUPRON DEPOT IM) [facility] Ascorbic Acid (VITAMIN C PO) [facility]
[2021-04-02] MEDS ORDERED: oxyCODONE 5MG TAB PO ONE (15:55)
[2021-04-02 16:00] VITALS: BP 118/84
--- OUTSIDE RECORDS SUMMARY | 2021-04-02 16:19 | CCD ---
Author Author [facility] Organization [facility] Address Unknown Phone Unavailable Care Team Providers Care Medical Reception Name Role Phone Alex Flores Unavailable Unavailable [...] Unavailable Loida ARCHER MD Unavailable Unavailable Loida ARHCER MD Unavailable Unavailable Loida ARCHER MD Unavailable [...] Roberto, Marcus Valverde MD Unavailable Unavailable Roberto, Macrus Valverde MD Unavailable Unavailable Roberto, Marcus Valverde [...] Unavailable Unavailable FABIAN, RUSTAM MD Unavailable Unavailable FABINA, RUSTAM MD Unavailable Unavailable FABIAN, RUSTAM MD Unavailable Unavailable FABIAN, RUSTAM MD Unavailable Unavailable FABIAN, RUSTAM MD Unavailable Unavailable FABIAN, RUSTAM MD Unavailable Unavailable FABIAN, RUSTAM MD Unavailable Unavailable FABIAN, RUSTAM MD Unavailable Unavailable FABIAN, RUSTAM MD Unavailable Unavailable FABIAN, RUSTAM MD Unavailable Unavailable FABIAN, RUSTAM MD Unavailable Unavailable FABIAN, RUSTAM MD Unavailable Unavailable [employer]ER MARKET RESEARCH WORKER, BRADLEY CYNTHIA MARKET RESEARCH WORKER Unavailable [email or web address] LEUBNER MARKET RESEARCH WORKER, BRADLEY CYNTHIA MARKET RESEARCH WORKER Unavailable [email or web address] LEUBNER MARKET RESEARCH WORKER, BRADLEY CYNTHIA MARKET RESEARCH WORKER Unavailable [email or web address] LEUBNER MARKET RESEARCH WORKER, BRADLEY MARIE MARKET RESEARCH WORKER Unavailable [email or web address] LEUBNER MARKET RESEARCH WORKER, BRADLEY MARIE MARKET RESEARCH WORKER Unavailable [email or web address] LEUBNER MARKET RESEARCH WORKER, BRADLEY MARIE MARKET RESEARCH WORKER Unavailable [email or web address] LEUBNER MARKET RESEARCH WORKER, BRADLEY MARIE MARKET RESEARCH WORKER Unavailable [email or web address] LEUBNER MARKET RESEARCH WORKER, BRADLEY MARIE MARKET RESEARCH WORKER Unavailable [email or web address] LEUBNER MARKET RESEARCH WORKER, BRADLEY MARIE MARKET RESEARCH WORKER Unavailable [email or web address] LEUBNER MARKET RESEARCH WORKER, BRADLEY MARIE MARKET RESEARCH WORKER Unavailable [email or web address] LEUBNER MARKET RESEARCH WORKER, BRADLEY MARIE MARKET RESEARCH WORKER Unavailable [email or web address] LEUBNER MARKET RESEARCH WORKER, BRADLEY MARIE MARKET RESEARCH WORKER Unavailable [email or web address] LEUBNER MARKET RESEARCH WORKER, BRADLEY MARIE MARKET RESEARCH WORKER Unavailable [email or web address] LEUBNER MARKET RESEARCH WORKER, BRADLEY MARIE MARKET RESEARCH WORKER Unavailable [email or web address] LEUBNER MARKET RESEARCH WORKER, BRADLEY MARIE MARKET RESEARCH WORKER Unavailable [email or web address] LEUBNER MARKET RESEARCH WORKER, BRADLEY MARIE MARKET RESEARCH WORKER Unavailable [email or web address] LEUBNER MARKET RESEARCH WORKER, BRADLEY MARIE MARKET RESEARCH WORKER Unavailable [email or web address] LEUBNER MARKET RESEARCH WORKER, BRADLEY MARIE MARKET RESEARCH WORKER Unavailable [email or web address] LEUBNER MARKET RESEARCH WORKER, BRADLEY MARIE MARKET RESEARCH WORKER Unavailable [email or web address] LEUBNER MARKET RESEARCH WORKER, BRADLEY MARIE MARKET RESEARCH WORKER Unavailable [email or web address] LEUBNER MARKET RESEARCH WORKER, BRADLEY MARIE MARKET RESEARCH WORKER Unavailable [email or web address] LEUBNER MARKET RESEARCH WORKER, BRADLEY [place] MARKET RESEARCH WORKER Unavailable [email or web address] LEUBNER MARKET RESEARCH WORKER, BRADLEY MARIE MARKET RESEARCH WORKER Unavailable [email or web address] Malena Torres Unavailable Unavailable [...] Unavailable Rosa Elena Infante MD Unavailable Unavailable oRsa Elena Infante MD Unavailable Unavailable Rosa Elena [...] Hillary WRIGHT MD Unavailable Unavailable NEREIDA, Hillary RWIGHT MD Unavailable Unavailable NEREIDA, Hillary WRIGHT MD [...] Unavailable NEREIDA, A KYLE MD Unavailable Unavailable Malena Nguyễn Unavailable Malena [...] by Article 27-F of the [facility] Public Health law. If you continue you may have access to information: Regarding HIV / AIDS; Provided by facilities licensed or operated by the [facility] Office of Mental Health; or Provided by the [facility] Office for People With Developmental Disabilities. If such information is present, then the following [facility] mandated warning applies: This information has [...] law may result in a fine or long-term sentence or both. A general authorization for the release of medical or other information is NOT sufficient authorization for further disc losure. Allergies and Adverse Reactions Type Description Substance Reaction Status Data Source(s ) No Known Allergies NO KNOWN MEDICATION ALLERGIES NO KNOWN MEDICA TION ALLERGIES NDOC ([facility]) Family History Family Member Name Family Member Gender Family Member Status Date o f Status Description Data Source(s) Unknown Unknown Problem MEDENT ([facility], ) Unknown Female Problem MEDENT ([facility]) Encounters Encounter Providers Location Date Indications Data Source(s ) Outpatient 04/18/2021 12:00:00 AM [facility] Outpatient Attender: KYLE PADRON MD 04/12/2021 12:00:00 AM [facility] Outpatient Attender: KYLE PADRON MD 04/12/2021 12:00:00 AM [facility] Outpatient Attender: GLORIA BEYER MD 04/12/2021 12:00: 00 AM [facility] Outpatient Attender: RUSTAM CHRISTENSEN MD 04/12/2021 12:00:00 A [facility] Outpatient Referrer: RUSTAM CHRISTENSEN MD 04/07/2021 12:00:00 A [facility] Outpatient Referrer: RUSTAM CHRISTENSEN MD 04/07/2021 12:00:00 A [facility] Outpatient Referrer: RUSTAM CHRISTENSEN MD 04/07/2021 12:00:00 A [facility] Outpatient Attender: Georgi Greene MDReferrer: Fabian Infante MD 04/06/2021 12:00:00 AM [facility] Outpatient Attender: Georgi Greene MD 03/30/2021 12:00:00 A [facility] Outpatient Attender: KYLE PADRON MDReferrer: Georgi hernandez MD [id number] 03/29/2021 12:00:00 AM EST - 03/29/2021 03:33:04 PM EST follow up [facility] follow up Outpatient Attender: Rafa Oliva er: RAFA Smithitter: Alexomar Pooleferrer: Alex Flores 03/21/2021 12:00:00 AM EST - 03/21/2021 12:00:00 AM EST Malignant neoplasm of prostate [facility] Malignant neoplasm of prostate Patient discharged. Outpatient Attender: LEONIDAS LOMAS 03/21/2021 12:00:00 AM EST - 03/21/2021 12:55:33 PM EST Retention of urine, unspecified [facility] pital Retention of urine, unspecified Outpatient 03/18/2021 12:00:00 AM [facility] [place] [address] [address] 03/17/2021 12:00:00 AM EST eCW1 ([facility]) Outpatient Attender: RUSTAM CHRISTENSEN MD 2020 12:00:00 AM [facility] - 03/15/2021 02:24:59 PM [facility] Outpatient Attender: GLORIA BEYER MD [id number] 12:00:00 AM [facility] - 03[facility]15[facility]: RUSTAM CHRISTENSEN MD 03/15/2021 12:00:00 A M [facility] [place] [address] [address] 03/11/2021 12:00:00 AM EST eCW1 ([facility]) [place] [address] [address] 03/02/2021 12:00:00 AM EDT eCW1 ([facility]) Outpatient Attender: RUSTAM CHRISTENSEN MD 03/01/2021 12:0 0:00 AM EDT Malignant neoplasm of prostate [facility] Malignant neoplasm of prostate Outpatient Attender: KYLE PADRON MD 03/01/2021 12:00:00 AM [facility] Outpatient Attender: GLORIA BEYER MD 03/01/2021 12:00: 00 AM [facility] [place] [address] [address] 02/28/2021 12:00:00 AM EDT eCW1 ([facility]) [place] [address] [address] 02/22/2021 12:00:00 AM EDT eCW1 ([facility]) O Attender: Abram Mejia MD 02/20/2021 12:00:00 AM EDT NDOC ([facility]) Patient admitted. [place] [address] [address] 02/18/2021 12:00:00 AM EDT eCW1 ([facility]) Outpatient Attender: KYLE PADRON MD [id number] 02/16/2021 11 :26:47 AM EDT [facility] Outpatient Attender: KYLE PADRON MDReferrer: Fabian Valladares dd, MD 02/15/2021 12:00:00 AM EDT follow up [facility] follow up [place] [address] [address] 02/14/2021 12:00:00 AM EDT eCW1 ([facility]) Outpatient Attender: GLORIA BEYER MD [id number] 12:00:00 AM T [facility] Unknown [address] [address] 02/08/2021 12:00:00 AM EDT eCW1 ([facility]) [place] [address] [facility] [place] [address] 02/03/2021 12:00:00 AM EDT eCW1 ([facility]) [place] [address] [address] 02/02/2021 12:00:00 AM EDT eCW1 ([facility]) Outpatient Attender: RUSTAM CHRISTENSEN MD [id number] 2020 12:00:00 AM EDT - 02/01/2021 04:35:04 PM EDT Malignant neoplasm of prostate [facility] Malignant neoplasm of prostate [place] [address] [address] 01/27/2021 12:00:00 AM EDT eCW1 ([facility]) [place] [address] [address] 01/26/2021 12:00:00 AM EDT eCW1 ([facility]) Outpatient Attender: KYLE PADRON MD 01/26/2021 12:00:00 AM [facility] Outpatient Attender: KYLE PADRON MD 01/25/2021 12:00:00 AM [facility] Outpatient 01/25/2021 12:00:00 AM [facility] Outpatient Attender: KYLE PADRON MD 01/25/2021 12:00:00 AM [facility] Outpatient 01/25/2021 12:00:00 AM [facility] Unknown [address] [facility] [address] 01/20/2021 12:00:00 AM EDT [place] [facility] ([facility]) Outpatient 01/20/2021 12:00:00 AM [facility] Outpatient Attender: KYLE PADRON MD 01/20/2021 12:00:00 AM [facility] Outpatient 01/19/2021 12:00:00 AM [facility] Outpatient Attender: Re McleanReferrer: Georgi Cuba 07A-RONCACTR 01/18/2021 12:00:00 AM EDT - 01/18/2021 04:02:51 PM EDT on [facility] on treat Outpatient 01/18/2021 12:00:00 AM [facility] Outpatient Attender: Re Mclean 01/18/2021 12:00:00 AM [facility] Outpatient Attender: RUSTAM CHRISTENSEN MD 01/18/2021 12:00:00 A M [facility] Inpatient Attender: Debbi Amaro MDReferrer: Debbi Amaro MD 01/13/2021 12:00:00 AM [facility] Inpatient Attender: Debbi Gutiérrez itter: Debbi Amaro MDReferrer: Debbi Amaro MD 01/12/2021 08:12:49 AM EDT [facility] Outpatient Attender: KYLE PADRON MD [id number] 12/29 12:00:00 AM EDT - 01/12/2021 02:53:08 PM [facility] Inpatient Attender: Vin Rico nder: Debbi Gutiérrezitter: Vin TorresReferrer: Debbi Amaro MD [id number]-[id number] 01/11/2021 12:00:00 AM EDT - 01/17/2021 06:39:00 PM EDT [facility] Patient discharged. Outpatient Attender: RUSTAM KEATINGeferrer: CYNTHIA ORTIZ NP [id number] 01/11/2021 12:00:00 AM EDT - 01/11/2021 02:44:31 PM [facility] Outpatient 01/11/2021 12:00:00 AM [facility] Outpatient Attender: KYLE PADRON MD 01/11/2021 12:00:00 AM [facility] Outpatient 01/11/2021 12:00:00 AM [facility] Outpatient Attender: KYLE APDRON MD 01/11/2021 12:00:00 AM [facility] Outpatient Attender: KYLE PADRON MDReferrer: Georgi hernandez MD 12/31/2020 12:00:00 AM [facility] Outpatient Attender: KYLE KEATINGeferrer: Georgi hernandez MD [id number] 12/28/2020 12:00:00 AM EDT - 12/28/2020 04:41:31 PM [facility] Unknown [address] [address] 12/23/2020 12:00:00 AM EDT [place] [facility] ([facility]) Outpatient Attender: Georgi Sibley: Fabian Infante MD 07A-XXHAURO 12/22/2020 12:00:00 AM EDT - 12/22/2020 12:18:33 PM [facility] Outpatient 12/21/2020 12:00:00 AM [facility] Outpatient Attender: CHAYITO BOOKER 12/20/2020 12:00:00 AM [facility] Outpatient Referrer: CYNTHIA ORTIZ NP 12/14/2020 12: 17:10 PM EDT Lower abdominal pain, unspecified [facility] Lower abdominal pain, unspecified Outpatient Attender: CYNTHIA ORTIZ NP [id number]-ONCCACTR 12/14 12:00:00 AM EDT - 12/14/2020 03:59:07 PM [facility] Outpatient Attender: CYNTHIA ORTIZ NP 12/14/2020 12:00:00 AM [facility] Outpatient Attender: Georgi Stapleserrer: Fabian Infante MD [id number]-[id number] 12/01/2020 12:00:00 AM EDT - 12/01/2020 03:42:02 PM [facility] Outpatient Attender: GLORIA BEYER MD [id number] 12:00:00 AM [facility] Outpatient Attender: RUSTAM CHRISTENSEN MD [id number]-ONCCACTR 2020 12:00:00 AM EDT - 11/23/2020 03:46:02 PM [facility] Outpatient Referrer: RUSTAM CHRISTENSEN MD 11/22/2020 12:0 0:00 AM EDT Malignant neoplasm of prostate [facility] Malignant neoplasm of prostate Outpatient Attender: RUSTAM CHRISTENSEN MD 11/19/2020 12:00:00 A M [facility] [place] [address] [address] 11/18/2020 12:00:00 AM EDT eCW1 ([facility]) [place] [address] [address] 11/17/2020 12:00:00 AM EDT eCW1 ([facility]) Outpatient Attender: RUSTAM CHRISTENSEN MD A-ONCCACTR 2020 12:00:00 AM EDT - 11/16/2020 04:31:42 PM [facility] Outpatient Referrer: RUSTAM CHRISTENSEN MD 11/16/2020 12:0 0:00 AM EDT Malignant neoplasm of prostate [facility] Malignant neoplasm of prostate Outpatient Attender: RUSTAM CHRISTENSEN MD 11/16/2020 12:00:00 A M [facility] Outpatient Referrer: RUSTAM CHRISTENSEN MD 11/16/2020 12:00:00 A M [facility] Outpatient Attender: GLORIA BEYER MD 11/16/2020 12:00: 00 AM [facility] Outpatient Referrer: RUSTAM CHRISTENSEN MD 11/15/2020 12:00:00 A M [facility] Unknown [address] [place] [address] 11/10/2020 12:00:00 AM EDT eCW1 ([facility]) [place] [address] [address] 11/08/2020 12:00:00 AM EDT [facility] [place] [address] [address] 11/05/2020 12:00:00 AM EDT [facility]1 [facility] Outpatient Attender: KAMALA ARCHER MD 11/03/2020 12:00:00 AM [facility] Outpatient [address] [address] 10/20/2020 12:00:00 AM EDT [facility]CW[facility] [place] [address] [address] 10/20/2020 12:00:00 AM EDT [facility]CW1 [facility] Outpatient Attender: RUSTAM CHRISTENSEN MD 07A-ONCCACTR 2020 12:00:00 AM EDT - 10/19/2020 03:28:21 PM [facility] Unknown [address] [address] 10/19/2020 12:00:00 AM EDT [facility]CW1 [facility] [place] [address] [address] 10/19/2020 12:00:00 AM EDT [facility]CW1 ([facility] [place] [address] [address] 10/11/2020 12:00:00 AM EDT eCW1 ([facility]) Outpatient Referrer: CYNTHIA ORTIZ NP 10/05 12:00:00 AM EDT - 10/05/2020 11:59:00 PM [facility] Outpatient Referrer: CYNTHIA ORTIZ NP 10/05/2020 12: 00:00 AM EDT Malignant neoplasm of prostate [facility] Malignant neoplasm of prostate Outpatient Referrer: CYNTHIA ORTIZ NP 09/16/2020 12:00:00 AM [facility] Outpatient Referrer: CYNTHIA ORTIZ NP 09/16/2020 12:00:00 AM [facility] Outpatient Referrer: CYNTHIA ORTIZ NP 09/02/2020 12:00:00 AM [facility] Outpatient Referrer: CYNTHIA ORTIZ NP 09/02/2020 12:00:00 AM [facility] Unknown [address] [address] 08/24/2020 12:00:00 AM EDT eCW1 ([facility]) Outpatient Attender: RUSTAM ChicasA-ONCCACTR 2020 12:00:00 AM EDT - 08/20/2020 12:16:21 PM EDT Malignant neoplasm of prostate [facility] Malignant neoplasm of prostate Outpatient Attender: GLORIA ChicasA-MLTCACTR 12:00:00 AM EDT - 08/17/2020 02:04:10 PM EDT Encounter for palliative care [facility] Encounter for palliative care Unknown [address] [address] 08/13/2020 12:00:00 AM EDT eCW1 ([facility]) Outpatient Referrer: CYNTHIA ORTIZ NP 08/10/2020 12:00:00 AM [facility] Outpatient Referrer: CYNTHIA ORTIZ NP 08/10/2020 12:00:00 AM [facility] Outpatient Referrer: CYNTHIA ORTIZ NP 08/06/2020 12:00:00 AM [facility] Outpatient Referrer: CYNTHIA ORTIZ NP 08/06/2020 12:00:00 AM [facility] Outpatient [address] [address] 07/19/2020 12:00:00 AM EDT eCW1 ([facility]) [place] [address] [place] [address] 07/02/2020 12:00:00 AM EST eCW1 ([facility]) Outpatient Attender: GLORIA ChicasA-MLTCACTR 12:00:00 AM EST - 06/02/2020 08:23:27 AM EST Encounter for palliative care [facility] Encounter for palliative care Outpatient Attender: GLORIA BEYER MD 06/01/2020 12:00: 00 AM [facility] Outpatient Attender: GLORIA BEYER MD 05/26/2020 12:00: 00 AM [facility] Outpatient Attender: RUSTAM CHRISTENSEN MD 07A-ONCCACTR 2020 12:00:00 AM EST - 05/21/2020 11:28:05 AM EST Malignant neoplasm of prostate [facility] Malignant neoplasm of prostate Outpatient Attender: RUSTAM CHRISTENSEN MD 05/21/2020 12:00:00 A M [facility] Unknown [address] [address] 05/18/2020 12:00:00 AM EST eCW1 ([facility]) Unknown [address] [facility] [place] [address] 05/06/2020 12:00:00 AM EST eCW1 ([facility]) [place] [address] [facility] [place] [address] 04/26/2020 12:00:00 AM EST eCW1 ([facility]) Unknown [address] [place] [address] 04/15/2020 12:00:00 AM EST eCW1 ([facility]) [place] [address] [facility] [place] [address] 04/09/2020 12:00:00 AM EST eCW1 ([facility]) Unknown [address] [facility] [place] [address] 03/24/2020 12:00:00 AM EST eCW1 ([facility]) Unknown [address] [facility] [place] [address] 03/10/2020 12:00:00 AM EST eCW1 ([facility]) Unknown [address] [facility] [place] [address] 03/09/2020 12:00:00 AM EST eCW1 ([facility]) Outpatient [address] [place] [address] 03/08/2020 12:00:00 AM EST eCW1 ([facility]) Outpatient Attender: GLORIA BEYER MD [id number] 12:00:00 AM EDT - 02/25/2020 03:17:34 PM EDT Malignant neoplasm of prostate [facility] Malignant neoplasm of prostate Outpatient Attender: CYNTHIA ORTIZ NP 07A-ONCCACTR 02/18 12:00:00 AM EDT - 02/19/2020 03:53:47 PM EDT Malignant neoplasm of prostate [facility] Malignant neoplasm of prostate [place] [address] [place] [address] 02/11/2020 12:00:00 AM EDT eCW1 ([facility]) Outpatient Attender: CYNTHIA ORTIZ NPAttender: RUSTAM CHRISTENSEN MD 02/06/2020 12:00:00 AM [facility] Outpatient Attender: GLORIA BEYER MD 02/04/2020 12:00: 00 AM [facility] Medications Medication Brand Name Start Date Product [...] Chey lidocaine (PF) (XYLOCAINE) 2 % injection [id number] 03/21/2021 04:35: 41 PM EST completed Once PRN, Starting on Sun03/21/21 at 1635 [facility] Medication administered onsite Prednisone 10 MG Oral Tablet predniSONE 10 MG Oral Tab let (DELTASONE) predniSONE 10 MG Oral Tablet (DELTASONE) 03/15/2021 12:00:00 AM EST 10 mg Ora l active Take 1 tablet by mouth daily [facility] Abiraterone Acetate 500 MG Oral Tablet (ZYTIGA) [id number] 03/15/2021 12:00:00 AM EST 1000 mg Oral active Take 2 tablets b y mouth daily [facility] Optifoam Gentle Foam Dressings UNK 03/02/2021 12:00:00 AM EDT active Optifoam Gentle Foam Dressings eCW1 ([facility]) Optifoam Gentle Foam Dressings UNK 03/02/2021 12:00:00 AM EDT active eCW1 ([facility]) Optifoam Gentle Foam Dressings UNK 03/02/2021 12:00:00 AM EDT active Optifoam Gentle Foam Dressings eCW1 ([facility]) Optifoam Gentle Foam Dressings UNK 03/02/2021 12:00:00 AM EDT active Optifoam Gentle Foam Dressings eCW1 ([facility]) 15 mg 02/23/2021 12:00:00 AM EDT tablet 180 TAKE ONE TABLET BY MOUTH EVERY 4 HOURS NEEDED FOR PAIN , MAXIMUM DAILY DOSE = 6 TABLETS TAKE ONE TABLET BY MOUTH EVERY 4 HOURS NEEDED FOR PAIN , MAXIMUM DAILY DOSE = 6 TABLETS SOLD: 02/23/2021 [employer] Oxycodone Hydrochloride 15 MG Oral Table t oxyCODONE HCl 15 MG Oral Tablet (ROXICODONE) oxyCODONE HCl 15 MG Oral Tablet (ROXICODONE) 12:00:00 AM EDT 15 mg Oral active Chronic Pain Peter e 1 tablet by mouth every 4 (four) hours as needed for PainCancer related pain, Max Daily Dose: 90 mg Indications: Chronic Pain [facility] Chronic Pain Ensure - Ensure - 02/22/2021 12:00:00 AM EDT 250.0 {ml} active Ensure - eCW1 ([facility]) 325 mg (65 mg iron) 02/22/2021 12:00:00 AM EDT tablet 15 TAKE ONE TABLET BY MOUTH EVERY OTHER DAY TAKE ONE TABLET BY MOUTH EVERY OTHER DAY SOLD: 02/23/2021 [facility] Ensure - Ensure - 02/22/2021 12:00:00 AM EDT 250.0 {ml} active eCW1 ([facility]) 1 mg 02/22/2021 12:00:00 AM EDT tablet 30 TAKE ONE TABLET BY MOUTH EVERY DAY TAKE ONE TABLET BY MOUTH EVERY DAY SOLD: 02/23/2021 [facility] Ensure - Ensure - 02/22/2021 12:00:00 AM EDT 250.0 {ml} active Ensure - eCW1 ([facility]) Ensure - Ensure - 02/22/2021 12:00:00 AM EDT 250.0 {ml} active Ensure - eCW1 ([facility]) Ensure - Ensure - 02/22/2021 12:00:00 AM EDT 250.0 {ml} active Ensure - eCW1 ([facility]) 300 mg 02/22/2021 12:00:00 AM EDT capsule 360 TAKE TWO CAPSULES BY MOUTH TWICE A DAY TAKE TWO CAPSULES BY MOUTH TWICE A DAY SOLD: 02/23/2021 [facility] Ensure - Ensure - 02/22/2021 12:00:00 AM EDT 250.0 {ml} active Ensure - eCW1 ([facility]) 500 mg 02/18/2021 12:00:00 AM EDT [...] active Take 1 tablet by mouth daily [facility] 324 mg (38 mg iron) 01/18/2021 12:00:00 AM EDT tablet 15 TAKE ONE TABLET BY MOUTH EVERY OTHER DAY TAKE ONE TABLET BY MOUTH EVERY OTHER DAY SOLD: 01/18/2021 [employer] magnesium sulfate in dextrose 5 % infusion (premix) 1 g [id number] -[id number] 01/17/2021 06:00:00 AM EDT 1 g Intravenous completed 1 g, Intravenous, Administer over 60 Minutes, Once, On Sun01/17/21 at 0600, For 1 dose [facility] Medication administered onsite salmon calcitonin 200 UNT/ML Injectable Solution Calcitonin ([place]) 200 UNIT/ML Injection Solution (MIACALCIN) Calcitonin ([place]) 200 UNIT/ML Injectio n Solution (MIACALCIN) 01/17/2021 12:00:00 AM EDT 200 U Subcutaneous aborted Inject 1 mL into the skin daily for 7 days [facility] salmon calcitonin 200 UNT/ML Injectable Solution Calcitonin ([place]) 200 UNIT/ML Injection Solution (MIACALCIN) Calcitonin ([place]) 200 UNIT/ML Injectio n Solution (MIACALCIN) 01/17/2021 12:00:00 AM EDT 200 U Subcutaneous aborted Inject 1 mL into the skin daily for 7 days [facility] salmon calcitonin 200 UNT/ACTUAT Nasal S pray Calcitonin ([place]) 200 UNIT/ACT Nasal Solution (MIACALCIN) Calcitonin ([place]) 200 UNIT/ACT Nasal S olution (MIACALCIN) 01/17/2021 12:00:00 AM EDT 1 {spray} Nasal abo rted 1 spray by Nasal route daily for 7 days [facility] salmon calcitonin 200 UNT/ACTUAT Nasal S pray Calcitonin ([place]) 200 UNIT/ACT Nasal Solution (MIACALCIN) Calcitonin ([place]) 200 UNIT/ACT Nasal S olution (MIACALCIN) 01/17/2021 12:00:00 AM EDT 1 {spray} Nasal act dunia 1 spray by Nasal route daily for 7 days [facility] ferrous gluconate 324 MG Oral Tablet Leobardo martin Gluconate 324 (38 Fe) MG Oral Tablet (FERGON) Ferrous Gluconate 324 (38 Fe) MG Oral Tablet (FERGON) 01/17/2021 12:00:00 AM EDT 324 mg Oral active Take 1 tablet by mouth every other day [facility] Oxycodone Hydrochloride 15 MG Oral Table t oxyCODONE (ROXICODONE) immediate release tablet 15 mg oxyCODONE (ROXICODONE) immediate release tablet 15 mg 01/16/2021 07:57:10 AM EDT 15 mg Oral active Chron ic Pain 15 mg, Oral, Every 4 hours PRN, Moderate Pain (Pain Scale Score 4-6), Starting on 01/16/21 at 0757, For 43 hours [facility] Chronic Pain Medication administered onsite NaCl infusion 0.9 % [id number] 01/16/2021 07:30:00 AM EDT Intravenous completed at 150 mL/hr, Intrav enous, Continuous, Starting on 01/16/21 at 0730, For 24 hours [facility] Medication administered onsite salmon calcitonin 200 UNT/ML Injectable Solution calcitonin (MIACALCIN) injection 200 Units calcitonin (MIACALCIN) injection 200 Units 01/15/2021 04:30:00 PM EDT 200 U Subcutaneous completed 200 Units, Subcutaneous, Once, On 01/15/21 at 1630, For 1 dose [facility] Medication administered onsite potassium chloride (K-DUR) dissolvable tablet 40 mEq 85771-3 99-01 01/15/2021 09:00:00 AM EDT 40 meq Oral completed 40 mEq, Oral, 2 Times Daily, First dose (after last reorder) on 01/15/21 at 0900, For 3 doses
May be dissolved in water for patients with a G-Tube or unable to swallow. If concern for clogging G-Tube, may contact Pharmacy to switch formulation to a powder packet.
[facility] Medication administered onsite 50 ML Magnesium Sulfate 40 MG/ML Injecti on magnesium sulfate infusion 2 g/50 mL (premix) magnesium sulfate infusion 2 g/50 mL (premix) 01/16/20 07:30:00 AM EDT 2 g Intravenous completed 2 g, Intravenous, Administer over 60 Minutes, Once, On Sun01/15/21 at 0730, For 1 dose [facility] Medication administered onsite chlorhexidine gluconate 1.2 MG/ML Mouthw jacqueline chlorhexidine (PERIDEX) 0.12 % solution 15 mL chlorhexidine (PERIDEX) 0.12 % solution 15 mL 01/15/20 09:00:00 PM EDT 15 mL Mouth/Throat active 15 mL, Mouth/Throat, 2 Times Daily, First dose on Sun01/14/21 at 2100, For 30 days
Do not swallow.
[facility] Medication administered onsite Baclofen 10 MG Oral Tablet baclofen (LIORESAL) tablet 10 mg baclofen (LIORESAL) tablet 10 mg 01/14/2021 05:00:00 PM EDT 10 mg Oral activ e 10 mg, Oral, Three Times Daily Standard, First dose on Sun01/14/21 at 1700, For 30 days [facility] Medication administered onsite salmon calcitonin 200 UNT/ML Injectable Solution calcitonin (MIACALCIN) injection 200 Units calcitonin (MIACALCIN) injection 200 Units 01/14/2021 04:30:00 PM EDT 200 U Subcutaneous completed 200 Units, Subcutaneous, Once, On Sun01/14/21 at 1630, For 1 dose [facility] Medication administered onsite Oxycodone Hydrochloride 15 MG Oral Table t oxyCODONE (ROXICODONE) immediate release tablet 15 mg oxyCODONE (ROXICODONE) immediate release tablet 15 mg 01/14/2021 11:43:06 AM EDT 15 mg Oral active Chron ic Pain 15 mg, Oral, Every 4 hours PRN, Moderate Pain (Pain Scale Score 4-6), Starting on Sun01/14/21 at 1143, For 43 hours [facility] Chronic Pain Medication administered onsite Aspirin 81 MG Chewable Tablet aspirin chewable tablet 81 mg aspirin chewable tablet 81 mg 01/14/2021 09:00:00 AM EDT 81 mg Oral activ e 81 mg, Oral, Daily Standard, First dose (after last reorder) on Sun01/14/21 at 0900, For 30 doses [facility] Medication administered onsite potassium chloride (K-DUR) dissolvable tablet 40 mEq 46732-5 99-01 01/14/2021 07:30:00 AM EDT 40 meq Oral completed 40 mEq, Oral, Once, On Sun01/14/21 at 0730, For 1 dose
May be dissolved in water for patients with a G- Tube or unable to swallow. If concern for clogging G-Tube, may contact Pharmacy to switch formulation to a powder packet.
[facility] Medication administered onsite NaCl infusion 0.9 % 8297-4638-00 01/14/2021 07:30:00 AM EDT Intravenous aborted at 150 mL/hr, Intrav enous, Continuous, Starting on Sun01/14/21 at 0730, For 48 hours [facility] Medication administered onsite alteplase (CATHFLO) injection 2 mg [id number] 01/14/2021 12:00:00 AM EDT 2 mg Intracatheter completed 2 mg, Intra catheter, Once, On Sun01/14/21 at 0000, For 1 dose
To be instilled by PICC team or IR nurse only for at least 30 minutes
[facility] Medication administered onsite potassium phosphate infusion 6 mmol/100 mL (premix) 01/13/2021 02:15:00 PM EDT 6 mmol Intravenous completed 6 mmol, Intravenous, at 25 mL/hr, Once, On Neha 01/13/21 at 1415, For 1 dose
Slower infusion rates (e.g. over 4 hours) are recommended in patients with renal impairment and/or less severe hypophosphatemia. Product contains 8.8 mEq of potassium.
[facility] Medication administered onsite 50 ML Magnesium Sulfate 40 MG/ML Injecti on magnesium sulfate infusion 2 g/50 mL (premix) magnesium sulfate infusion 2 g/50 mL (premix) 01/14/20 02:15:00 PM EDT 2 g Intravenous completed 2 g, Intravenous, Administer over 60 Minutes, Once, On Neha 01/13/21 at 1415, For 1 dose [facility] Medication administered onsite 2 ML Midazolam 1 MG/ML Injection midazolam (PF) (VERSE D) injection midazolam (PF) (VERSED) injection 01/13/2021 02:10:15 PM EDT completed Once PRN, Starting on Neha 01/13/21 at 1410 [facility] Medication administered onsite fentaNYL (SUBLIMAZE) (PF) injection [id number] 01/13/2021 02:10:01 PM EDT completed Once PRN, Starting on Neha 01/13/21 at 1410 [facility] Medication administered onsite sodium bicarbonate 8.4 % 8 mL in lidocaine (XYLOCAINE) 2 % 2 mL injection 01/13/2021 02:08:44 PM EDT completed Once PRN, Starting on Neha 01/13/21 at 1408 [facility] Medication administered onsite Folic Acid 1 MG Oral Tablet folic acid (FOLVITE) table t 1 mg folic acid (FOLVITE) tablet 1 mg 01/13/2021 01:45:00 PM EDT 1 mg Oral active 1 mg, Oral, Daily Standard, First dose on Neha 01/13/21 at 1345, For 30 days [facility] Medication administered onsite Piperacillin 3000 MG [...] of piperacillin-tazobactam is compatible with Lactated Ringers.
[facility] Medication administered onsite potassium chloride (K-DUR) dissolvable tablet 40 mEq 92831-2 99-01 01/13/2021 07:45:00 AM EDT 40 meq Oral completed 40 mEq, Oral, Once, On Neha 01/13/21 at 0745, For 1 dose
May be dissolved in water for patients with a G- Tube or unable to swallow. If concern for clogging G-Tube, may contact Pharmacy to switch formulation to a powder packet.
[facility] Medication administered onsite NaCl infusion 0.9 % 6566-8675-08 01/13/2021 07:45:00 AM EDT Intravenous aborted at 150 mL/hr, Intrav enous, Continuous, Starting on Sun01/13/21 at 0745, For 24 hours [facility] Medication administered onsite Oxycodone Hydrochloride 15 MG Oral Table t oxyCODONE (ROXICODONE) immediate release tablet 7.5 mg oxyCODONE (ROXICODONE) immediate release tablet 7.5 mg 01/13/2021 07:33:32 AM EDT 7.5 mg Oral aborted Chron ic Pain 7.5 mg, Oral, Every 4 hours PRN, Moderate Pain (Pain Scale Score 4-6), Starting on Sun01/13/21 at 0733, For 72 hours [facility] Chronic Pain Medication administered onsite potassium chloride 20 mEq in 100 mL IVPB (premix) [id number]- [id number] 01/13/2021 03:00:00 AM EDT 20 meq Intravenous completed 20 mEq, Intravenous, Administer over 60 Minutes, Every 1 hour, First dose on Sun01/13/21 at 0300, For 2 doses [facility] Medication administered onsite salmon calcitonin 200 UNT/ML Injectable Solution calcitonin (MIACALCIN) injection 200 Units calcitonin (MIACALCIN) injection 200 Units 01/12/2021 06:45:00 PM EDT 200 U Intramuscular completed 200 Units, Intramuscular, Once, On Sun01/12/21 at 1845, For 1 dose [facility] Medication administered onsite NaCl infusion 0.9 % [id number] 01/12/2021 02:15:00 PM EDT Intravenous aborted at 150 mL/hr, Intrav enous, Continuous, Starting on Sun01/12/21 at 1415, For 24 hours [facility] Medication administered onsite NaCl infusion 0.9 % [id number] 01/12/2021 09:15:00 AM EDT Intravenous aborted at 150 mL/hr, Intrav enous, Continuous, Starting on Sun01/12/21 at 0915, For 24 hours [facility] Medication administered onsite Aspirin 81 MG Chewable Tablet aspirin chewable tablet 81 mg aspirin chewable tablet 81 mg 01/12/2021 09:00:00 AM EDT 81 mg Oral abort ed 81 mg, Oral, Daily Standard, First dose on Sun01/12/21 at 0900, For 30 doses [facility] Medication administered onsite POLYETHYLENE GLYCOL 3350 [...] due to potential increased risk for aspiration.
[facility] Medication administered onsite Tamsulosin hydrochloride 0.4 MG Oral Capsule tamsulosi n (FLOMAX) capsule 0.4 mg tamsulosin (FLOMAX) capsule 0.4 mg 01/12/2021 09:00:00 AM EDT 0.4 mg Oral active 0.4 mg, Oral, Daily Standard, First dose on Sun01/12/21 at 0900, For 30 days
Swallow whole. Do not crush, chew or open.
[facility] Medication administered onsite salmon calcitonin 200 UNT/ML Injectable Solution calcitonin (MIACALCIN) injection 200 Units calcitonin (MIACALCIN) injection 200 Units 01/12/2021 08:00:00 AM EDT 200 U Intramuscular completed 200 Units, Intramuscular, Once, On Sun01/12/21 at 0800, For 1 dose [facility] Medication administered onsite potassium phosphate infusion 6 mmol/100 mL (premix) 01/12/2021 03:15:00 AM EDT 6 mmol Intravenous completed 6 mmol, Intravenous, at 25 mL/hr, Once, On Sun01/12/21 at 0315, For 1 dose
Slower infusion rates (e.g. over 4 hours) are recommended in patients with renal impairment and/or less severe hypophosphatemia. Product contains 8.8 mEq of potassium.
[facility] Medication administered onsite potassium chloride 20 mEq in 100 mL IVPB (premix) [id number]- [id number] 01/11/2021 09:00:00 PM EDT 20 meq [...] on Sun01/11/21 at 2100, For 30 days [facility] Medication administered onsite gabapentin 300 MG Oral Capsule gabapentin (NEURONTIN) capsule 300 mg gabapentin (NEURONTIN) capsule 300 mg 01/11/2021 09:00:00 PM EDT 300 mg Oral active Neuropathic Pain 300 mg, Oral, Nightly, Indic ations: Neuropathic Pain, First dose (after last modification) on Sun01/11/21 at 2100, For 8 doses [facility] Neuropathic Pain Medication administered onsite Oxycodone Hydrochloride 15 MG Oral Table t oxyCODONE (ROXICODONE) immediate release tablet 7.5 mg oxyCODONE (ROXICODONE) immediate release tablet 7.5 mg 01/11/2021 07:44:33 PM EDT 7.5 mg Oral aborted Chron ic Pain 7.5 mg, Oral, Every 4 hours PRN, Moderate Pain (Pain Scale Score 4-6), Starting on Sun01/11/21 at 1944, For 69 hours [facility] Chronic Pain Medication administered onsite Piperacillin [...] piperacillin- tazobactam is compatible with Lactated Ringers.
[facility] Medication administered onsite NaCl infusion 0.9 % [id number] 01/11/2021 05:30:00 PM EDT Intravenous completed at 150 mL/hr, Intrav enous, Continuous, Starting on Sun01/11/21 at 1730, For 12 hours [facility] Medication administered onsite Acetaminophen 325 MG [...] mg from all sources in 24 hours.
[facility] Medication administered onsite Carisoprodol 350 MG Oral Tablet carisoprodol (SOMA) ta blet 350 mg carisoprodol (SOMA) tablet 350 mg 01/11/2021 05:17:53 PM EDT 350 mg Oral active 350 mg, Oral, Three Times Daily-PRN, muscle spasms, Starting on Sun01/11/21 at 1717, For 7 days [facility] Medication administered onsite Ondansetron 8 MG Oral Tablet ondansetron (ZOFRAN) tabl et 8 mg ondansetron (ZOFRAN) tablet 8 mg 01/11/2021 05:17:53 PM EDT 8 mg Oral active 8 mg, Oral, Every 8 hours PRN, Nausea, Vomiting, Starting on Sun01/11/21 at 1717, For 30 days [facility] Medication administered onsite NaCl infusion 0.9 % [id number] 01/11/2021 02:30:00 PM EDT Intravenous completed Hypercalcemia at 125 mL/hr, Intrav enous, Once, On Sun01/11/21 at 1430, For 1 dose [facility] Hypercalcemia Medication administered onsite Piperacillin 3000 [...] of piperacillin-tazobactam is compatible with Lactated Ringers.
[facility] Acute cystitis with hematuria Medication administered onsite salmon calcitonin 200 UNT/ML Injectable Solution calcitonin (MIACALCIN) injection 288 Units calcitonin (MIACALCIN) injection 288 Units 01/11/2021 02:15:00 PM EDT 288 U Subcutaneous completed Hypercalc emia 288 Units, Subcutaneous, Once, On Sun01/11/21 at 1430, For 1 dose [facility] Hypercalcemia Medication administered onsite sodium chloride 0.9 % bolus 1,000 mL [id number] 01/11/2021 12:45: 00 PM EDT 1000 mL Intravenous completed Hypercalcemia 1,00 0 mL, Intravenous, Once, On Sun01/11/21 at 1245, For 1 dose [facility] Hypercalcemia Medication administered onsite alteplase (CATHFLO) injection 2 mg [id number] 01/11/2021 11:00:00 AM EDT 2 mg Intracatheter completed Malignant tumor of prostate 2 mg, Intracatheter, Once, On Sun01/11/21 at 1100, For 1 dose
To be instilled by PICC team or IR nurse only for at least 30 minutes
[facility] Malignant tumor of prostate Medication administered onsite lidocaine (XYLOCAINE) 2 % urojet 20 mL [id number] 12:00:00 PM EDT 20 mL Urethral aborted [facility] Potassium Chloride 0.1 MEQ/ML Injectable Solution potassium chloride 10 mEq in 100 mL IVPB (premix) potassium chloride 10 mEq in 100 mL IVPB (premix) 12/14/2020 02:00:00 PM EDT 10 meq Intravenous completed Hypokalemia 10 mEq, Intravenous, Administer over 60 Minutes, Once, On Sun12/14/20 at 1400, For 1 dose [facility] Hypokalemia Medication administered onsite sodium chloride 0.9 % bolus 1,000 mL [id number] 12/14/2020 01:45: 00 PM EDT 1000 mL Intravenous completed Dehydration 1,000 mL, Intravenous, Once, On Sun12/14/20 at 1345, For 1 dose
Infuse over 90 minutes
[facility] Dehydration Medication administered onsite sennosides, LONGTERM 8.6 MG Oral Tablet senna tablet 2 tablet sen na tablet 2 tablet 12/14/2020 01:30:00 PM EDT 2 {tbl} Oral com pleted Drug-induced constipation 2 tablet, Oral, Once, On Sun12/14/20 at 1330, For 1 dose [facility] Drug-induced constipation Medication administered onsite 8.6 mg 12/14/2020 12:00:00 AM EDT tablet 30 TAKE ONE TABLET BY MOUTH ONCE DAILY TAKE ONE TABLET BY MOUTH ONCE DAILY SOLD: 03/17/2021 [facility] 8.6 mg 12/14/2020 12:00:00 AM EDT tablet 30 TAKE ONE TABLET BY MOUTH ONCE DAILY TAKE ONE TABLET BY MOUTH ONCE DAILY SOLD: 12/14/2020 [facility] sennosides, LONGTERM 8.6 MG Oral Tablet SM Senna Laxative 8 .6 MG Oral Tablet SM Senna Laxative 8.6 MG Oral Tablet 12/14/2020 12:00:00 AM EDT 1 {tbl} Oral active Take 1 tablet by mouth daily [facility] 17 gram/dose 12/14/2020 12:00:00 AM EDT powder 510 MIX 17 GRAMS IN 4-8 OUNCES OF LIQUID AND DRINK ONCE DAILY MIX 17 GRAMS IN 4-8 OUNCES OF LIQUID AND DRINK ONCE DAILY SOLD: 12/14/2020 [employer] [facility] POLYETHYLENE GLYCOL 3350 142 MG/ML Oral Solution PEG 3350 17 GM/SCOOP Oral Powder (MIRALAX) PEG 3350 17 GM/SCOOP Oral Powder (MIRALAX) 12/14/2020 12:00:00 AM EDT 17 g Oral active Drug-induced constipatio n Take 17 g by mouth daily [facility] Drug-induced constipation Docusate Sodium 50 MG / sennosides, LONGTERM 8.6 MG Oral Tablet Senna-Docusate Sodium 8.6-50 MG Oral Tablet (SENOKOT-S) Senna-Docusate Sodium 8.6-50 MG Oral Tab let (SENOKOT-S) 12/14/2020 12:00:00 AM EDT 1 {tbl} Oral a ctive Drug-induced constipation Take 1 tablet by mouth daily [facility] Drug-induced constipation 10 gram/15 mL [...] mouth Three times daily for 3 days [facility] Drug-induced constipation 15 mg 12/11/2020 12:00:00 AM EDT tablet 180 TAKE ONE TABLET BY MOUTH EVERY 4 HOURS NEEDED FOR CANCER RELATED PAIN MAXIMUM DAILY DOSE = 6 TAKE ONE TABLET BY MOUTH EVERY 4 HOURS NEEDED FOR CANCER RELATED PAIN MAXIMUM DAILY DOSE = 6 SOLD: 12/12/2020 [facility] Oxycodone Hydrochloride 15 MG Oral Table t oxyCODONE HCl 15 MG Oral Tablet (ROXICODONE) oxyCODONE HCl 15 MG Oral Tablet (ROXICODONE) 12:00:00 AM EDT 15 mg Oral aborted Chronic Pain Peter e 1 tablet by mouth every 4 (four) hours as needed for PainCancer related pain, Max Daily Dose: 90 mg Indications: Chronic Pain [facility] Chronic Pain Self-Cath Coude Tip [id number] 11/29/2020 12:00:00 AM EDT active Use as directed. DAILY [facility] 1.5 ML Leuprolide Acetate 15 MG/ML Prefi lled Syringe leuprolide acetate (LUPRON) injection 22.5 mg leuprolide acetate (LUPRON) injection 22.5 mg 11/24/19 11:30:00 AM EDT 22.5 mg Intramuscular completed 22.5 mg, Intramuscular, Once, On Sun11/23/20 at 1130, For 1 dose
FOR IM USE ONLY
[facility] Medication administered onsite Cabazitaxel (JEVTANA) 51 [...] time. Administer through a 0.22 micron filter.
[facility] Prostate cancer metastatic to bone Medication administered onsite Diphenhydramine Hydrochloride 25 MG Oral Capsule diphenhydrAMINE (BENADRYL) capsule 25 mg diphenhydrAMINE (BENADRYL) capsule 25 mg 11/23/2020 10 :30:00 AM EDT 25 mg Oral completed Prostate cancer metast atic to bone 25 mg, Oral, Once, On Sun11/23/20 at 1030, For 1 dose
Give prior to chemotherapy.
[facility] Prostate cancer metastatic to bone Medication administered onsite Famotidine 20 MG Oral Tablet famotidine (PEPCID) table t 20 mg famotidine (PEPCID) tablet 20 mg 11/23/2020 10:30:00 AM EDT 20 mg Oral completed Prostate cancer metastatic to bone 20 mg, Oral, Once, On Sun11/23/20 at 1030, For 1 dose [facility] Prostate cancer metastatic to bone Medication administered onsite Ondansetron 8 MG Oral Tablet ondansetron (ZOFRAN) tabl et 16 mg ondansetron (ZOFRAN) tablet 16 mg 11/23/2020 10:30:00 AM EDT 16 mg Oral completed Prostate cancer metastatic to bone 16 mg, Oral, Once, On Sun11/23/20 at 1030, For 1 dose
Give prior to chemotherapy
[facility] Prostate cancer metastatic to bone Medication administered onsite Dexamethasone 4 MG Oral Tablet dexamethasone (DECADRON ) tablet 20 mg dexamethasone (DECADRON) tablet 20 mg 11/23/2020 10:30:00 AM EDT 20 m g Oral completed Prostate cancer metastatic to bone 20 mg, Oral, Once, On Sun11/23/20 at 1030, For 1 dose
Give prior to chemotherapy.
[facility] Prostate cancer metastatic to bone Medication [...] hours as needed for Nausea or Vomiting [facility] Prostate cancer metastatic to bone Prednisone 10 MG Oral Tablet predniSONE 10 MG Oral Tab let (DELTASONE) predniSONE 10 MG Oral Tablet (DELTASONE) 11/23/2020 12:00:00 AM EDT 10 mg Ora l completed Prostate cancer metastatic to bone Take 1 tablet by mouth daily [facility] Prostate cancer metastatic to bone Prochlorperazine 10 MG Oral Tablet Proch lorperazine Maleate 10 MG Oral Tablet (COMPAZINE) Prochlorperazine Maleate 10 MG Oral Tablet (COMPAZINE) 11/23/2020 12:00:00 AM EDT 10 mg Oral active Prostate cancer metastatic to bone Take 1 tablet by mouth every 6 (six) hours as needed (Nausea/Vomiting) [facility] Prostate cancer metastatic to bone 10 mg 11/23/2020 12:00:00 AM EDT tablet 21 TAKE ONE TABLET BY MOUTH EVERY DAY TAKE ONE TABLET BY MOUTH EVERY DAY SOLD: 11/25/2020 [facility] 8 mg 11/23/2020 12:00:00 AM EDT tablet 20 TAKE ONE TABLET BY MOUTH EVERY 8 HOURS NEEDED FOR NAUSEA OR VOMITING TAKE ONE TABLET BY MOUTH EVERY 8 HOURS A S NEEDED FOR NAUSEA OR VOMITING SOLD: 11/25/2020 [employer] gadobutrol (GADAVIST) contrast injection 9.5 mL [id number] 11/22/2020 05:00:00 PM EDT 0.1 mL/kg Intravenous completed 9.5 mL (rounded from 9.71 mL = 0.1 mL/kg 97.1 kg), Intravenous, 1 TIME IMAGING, On Sun11/22/20 at 1700, For 1 dose, Imaging Protocol
Do not mix or administer in the same IV line with other ia dications.
[facility] Medication administered onsite 15 mg 11/17/2020 12:00:00 AM EDT tablet extended release 60 TAKE ONE TABLET BY MOUTH TWICE A DAY MAXIMUM DAILY DOSE = TWO TABLETS TAKE ONE TABLET BY MOUTH TWICE A DAY MAXIMUM DAILY DOSE = TWO TABLETS SOLD: 11/17/2020 [employer] [facility] [facility] Morphine Sulfate 15 MG Extended Release Oral Tablet Morphine Sulfate ER 15 MG Oral Tablet Extended Release (MS CONTIN) Morphine Sulfate ER 15 MG Oral Tablet Extended Release (MS CONTIN) 11/16/2020 12:00:00 AM EDT 15 mg Oral active Cancer associated painProstate cancer metastatic to bone Take 1 tablet by mouth Two Times Daily , Max Daily Dose: 30 mg [facility] Cancer associated pain Prostate cancer metastatic to bone Ondansetron 4 MG Disintegrating Oral Tablet ONDANSETRON 11/11/2020 12:00:00 AM EDT tablet,disintegrating 30 DISSOLVE O NE TABLET ON TONGUE EVERY 4 HOURS NEEDED FOR NAUSEA DISSOLVE ONE TABLET ON TONGUE EVERY 4 HO URS NEEDED FOR NAUSEA SOLD: 11/12/2020 [facility] Oxycodone Hydrochloride 15 MG Oral Table t oxyCODONE HCl 15 MG Oral Tablet (ROXICODONE) oxyCODONE HCl 15 MG Oral Tablet (ROXICODONE) 12:00:00 AM EDT 15 mg Oral aborted Chronic Pain Peter e 1 tablet by mouth every 4 (four) hours as needed for PainCancer related pain, Max Daily Dose: 90 mg Indications: Chronic Pain [facility] Chronic Pain 15 mg [...] BY MOUTH TWICE A DAY SOLD: 11/09/2020 [employer] [facility] Ciprofloxacin 500 MG Oral Tablet [Cipro] Cipro 500 MG Cipro 500 MG 11/08/2020 12:00:00 AM EDT 1.0 {tablet} active Ci pro 500 MG eCW1 ([facility]) 0.05 % 10/24/2020 12:00:00 AM EDT ointment 30 APPLY TO AFFECTED AREA(S) TWO TIMES A DAY IF RASH RECURS ON BODY, DO NOT APPLY TO FACE, GROIN, OR ARMPITS APPLY TO AFFECTED AREA(S) TWO TIMES A DAY IF RASH RECURS ON BODY, DO NOT APPLY TO FACE, GROIN, OR ARMPITS SOLD: 11/17/2020 [employer] [facility] 0.05 % 10/24/2020 12:00:00 AM EDT ointment 30 APPLY TO AFFECTED AREA(S) TWO TIMES A DAY IF RASH RECURS ON BODY, DO NOT APPLY TO FACE, GROIN, OR ARMPITS APPLY TO AFFECTED AREA(S) TWO TIMES A DAY IF RASH RECURS ON BODY, DO NOT APPLY TO FACE, GROIN, OR ARMPITS SOLD: 10/29/2020 [facility] 350 mg 10/21/2020 12:00:00 AM EDT tablet 90 TAKE ONE TABLET BY MOUTH THREE TIMES A DAY NEEDED, MAXIMUM DAILY DOSE = THREE TABLETS TAKE ONE TABLET BY MOUTH THREE TIMES A DAY NEEDED, MAXIMUM DAILY DOSE = THREE TABLETS SOLD: 10/29/2020 [facility] 350 mg 10/21/2020 12:00:00 AM EDT tablet 90 TAKE ONE TABLET BY MOUTH THREE TIMES A DAY NEEDED, MAXIMUM DAILY DOSE = THREE TABLETS TAKE ONE TABLET BY MOUTH THREE TIMES A DAY NEEDED, MAXIMUM DAILY DOSE = THREE TABLETS SOLD: 03/17/2021 [facility] 350 mg 10/21/2020 12:00:00 AM EDT tablet 90 TAKE ONE TABLET BY MOUTH THREE TIMES A DAY NEEDED, MAXIMUM DAILY DOSE = THREE TABLETS TAKE ONE TABLET BY MOUTH THREE TIMES A DAY NEEDED, MAXIMUM DAILY DOSE = THREE TABLETS SOLD: 01/27/2021 [facility] Ciprofloxacin 500 MG Oral Tablet [Cipro] Cipro 500 MG Cipro 500 MG 10/20/2020 12:00:00 AM EDT 1.0 {tablet} active Ci pro 500 MG eCW1 ([facility]) Ciprofloxacin 500 MG Oral Tablet [Cipro] Cipro 500 MG Cipro 500 MG 10/20/2020 12:00:00 AM EDT 1.0 {tablet} active Ci pro 500 MG eCW1 ([facility]) Ciprofloxacin 500 MG Oral Tablet [Cipro] Cipro 500 MG Cipro 500 MG 10/20/2020 12:00:00 AM EDT 1.0 {tablet} active Ci pro 500 MG eCW1 ([facility]) 500 mg 10/20/2020 12:00:00 AM EDT tablet 14 TAKE ONE TABLET BY MOUTH EVERY 12 HOURS FOR 7 DAYS TAKE ONE TABLET BY MOUTH EVERY 12 HOURS FOR 7 DAYS [employer] [employer] Ciprofloxacin 500 MG Oral Tablet [Cipro] Cipro 500 MG Cipro 500 MG 10/20/2020 12:00:00 AM EDT 1.0 {tablet} active Ci pro 500 MG eCW1 ([facility]) 300 mg 10/13/2020 12:00:00 AM EDT [...] DAILY DOSE = SIX TABLETS SOLD: 10/11/2020 [employer] Oxycodone Hydrochloride 15 MG Oral Table t oxyCODONE HCl 15 MG Oral Tablet (ROXICODONE) oxyCODONE HCl 15 MG Oral Tablet (ROXICODONE) 12:00:00 AM EDT 15 mg Oral aborted Chronic Pain Peter e 1 tablet by mouth every 4 (four) hours as needed for PainCancer related pain, Max Daily Dose: 90 mg Indications: Chronic Pain [facility] Chronic Pain TC-99M medronate (Tc-MDP) [address]-6 10/05/2020 10:45:00 AM EDT Intravenous completed Intravenous, Once, On Sun10/05/20 at 1045, For 1 dose, Imaging Protocol [facility] Medication administered onsite 15 mg 09/10/2020 12:00:00 AM EDT tablet 180 TAKE ONE TABLET BY MOUTH EVERY 4 HOURS NEEDED FOR PAIN , MAXIMUM DAILY DOSE = 6 TABLETS TAKE ONE TABLET BY MOUTH EVERY 4 HOURS NEEDED FOR PAIN , MAXIMUM DAILY DOSE = 6 TABLETS SOLD: 09/13/2020 [employer] Oxycodone Hydrochloride 15 MG Oral Table t oxyCODONE HCl 15 MG Oral Tablet (ROXICODONE) oxyCODONE HCl 15 MG Oral Tablet (ROXICODONE) 12:00:00 AM EDT 15 mg Oral active Chronic Pain Peter e 1 tablet by mouth every 4 (four) hours as needed for PainCancer related pain, Max Daily Dose: 90 mg Indications: Chronic Pain [facility] Chronic Pain 1.5 ML Leuprolide Acetate 15 MG/ML Prefi lled Syringe leuprolide acetate (LUPRON) injection 22.5 mg leuprolide acetate (LUPRON) injection 22.5 mg 08/21/19 11:45:00 AM EDT 22.5 mg Intramuscular completed 22.5 mg, Intramuscular, Once, On Sun08/20/20 at 1145, For 1 dose
FOR IM USE ONLY
[facility] Medication administered onsite Oxycodone Hydrochloride 15 MG Oral Table t oxyCODONE HCl 15 MG Oral Tablet (ROXICODONE) oxyCODONE HCl 15 MG Oral Tablet (ROXICODONE) 12:00:00 AM EDT 15 mg Oral active Chronic Pain Peter e 1 tablet by mouth every 4 (four) hours as needed for PainCancer related pain, Max Daily Dose: 90 mg Indications: Chronic Pain [facility] Chronic Pain 0.12 % 08/12/2020 12:00:00 [...] MAXIMUM DAILY DOSE =6 TABLETS SOLD: 07/14/2020 [facility] 15 mg 06/15/2020 12:00:00 AM EST tablet 180 TAKE ONE TABLET BY MOUTH EVERY 4 HOURS NEEDED FOR PAIN, MAXIMUM DAILY DOSE = SIX TABLETS TAKE ONE TABLET BY MOUTH EVERY 4 HOURS NEEDED FOR PAIN, MAXIMUM DAILY DOSE = SIX TABLETS SOLD: 06/15/2020 [facility] enzalutamide 40 MG Oral Capsule [Xtandi] Xtandi 40 MG Oral Capsule (Enzalutamide) Xtandi 40 MG Oral Capsule (Enzalutamide) 06/14/2020 12 :00:00 AM EST active Primary prostate adenoca rcinoma TAKE 4 CAPSULES BY MOUTH EVERY DAY [facility] Primary prostate adenocarcinoma 1.5 ML Leuprolide Acetate 15 MG/ML Prefi lled Syringe leuprolide (ELIGARD) SubQ injection 22.5 mg for 3-month administration leuprolide (ELIGARD) SubQ injection 22.5 mg for 3-month administration 05/21/2020 11:00:00 AM EST 2 2.5 mg Subcutaneous completed Prostate cancer metastatic to bone 22.5 mg, Subcutaneous, Once, Sun05/21/20 at 1100, For 1 dose [facility] Prostate cancer metastatic to bone Medication administered onsite 15 mg 05/14/2020 12:00:00 AM EST tablet 180 TAKE ONE TABLET BY MOUTH EVERY 4 HOURS NEEDED FOR PAIN MAXIMUM DAILY DOSE = SIX TABLETS TAKE ONE TABLET BY MOUTH EVERY 4 HOURS NEEDED FOR PAIN MAXIMUM DAILY DOSE = SIX TABLETS SOLD: 05/14/2020 [employer] Oxycodone Hydrochloride 15 MG Oral Table t oxyCODONE HCl 15 MG Oral Tablet (ROXICODONE) oxyCODONE HCl 15 MG Oral Tablet (ROXICODONE) 12:00:00 AM EST 15 mg Oral active Chronic Pain Peter e 1 tablet by mouth every 4 (four) hours as needed for PainCancer related pain, Max Daily Dose: 90 mg Indications: Chronic Pain [facility] Chronic Pain 15 mg 04/13/2020 12:00:00 [...] EST active Gabapent in 300 MG eCW1 ([facility]) gabapentin 300 MG Oral Capsule Gabapentin 300 MG Gabapentin 300 MG 03/08/2020 12:00:00 AM EST active Gabapent in 300 MG eCW1 ([facility]) 800 mg 03/08/2020 12:00:00 AM EST [...] EST active Gabapent in 300 MG eCW1 ([facility]) gabapentin 300 MG Oral Capsule Gabapentin 300 MG Gabapentin 300 MG 03/08/2020 12:00:00 AM EST active Gabapent in 300 MG eCW1 ([facility]) gabapentin 300 MG Oral Capsule Gabapentin 300 MG Gabapentin 300 MG 03/08/2020 12:00:00 AM EST active Gabapent in 300 MG eCW1 ([facility]) 0.05 % 03/08/2020 12:00:00 AM EST [...] EST active Gabapent in 300 MG eCW1 ([facility]) 0.05 % 03/08/2020 12:00:00 AM EST [...] EST active Gabapent in 300 MG eCW1 ([facility]) gabapentin 300 MG Oral Capsule Gabapentin 300 MG Gabapentin 300 MG 03/08/2020 12:00:00 AM EST active Gabapent in 300 MG eCW1 ([facility]) 350 mg 03/08/2020 12:00:00 AM EST tablet 90 TAKE ONE TABLET BY MOUTH THREE TIMES A DAY NEEDED, MAXIMUM DAILY DOSE = THREE TABLETS TAKE ONE TABLET BY MOUTH THREE TIMES A DAY NEEDED, MAXIMUM DAILY DOSE = THREE TABLETS SOLD: 06/15/2020 [facility] 350 mg 03/08/2020 12:00:00 AM EST [...] AY WITH FOOD OR MILK SOLD: 08/12/2020 [facility] gabapentin 300 MG Oral Capsule Gabapentin 300 MG Gabapentin 300 MG 03/08/2020 12:00:00 AM EST active Gabapent in 300 MG eCW1 ([facility]) 350 mg 03/08/2020 12:00:00 AM EST tablet 90 TAKE ONE TABLET BY MOUTH THREE TIMES A DAY NEEDED, MAXIMUM DAILY DOSE = THREE TABLETS TAKE ONE TABLET BY MOUTH THREE TIMES A DAY NEEDED, MAXIMUM DAILY DOSE = THREE TABLETS SOLD: 05/07/2020 [facility] 1.5 ML Leuprolide Acetate 15 MG/ML Prefi lled Syringe leuprolide (ELIGARD) SubQ injection 22.5 mg for 3-month administration leuprolide (ELIGARD) SubQ injection 22.5 mg for 3-month administration 02/19/2020 03:15:00 PM EDT 2 2.5 mg Subcutaneous completed Primary prostate adenocarcinoma 22.5 mg, Subcutaneous, Once, [facility] 02/19/20 at 1515, For 1 dose [facility] Primary prostate adenocarcinoma Medication administered onsite 15 mg 02/12/2020 12:00:00 AM EDT tablet 180 TAKE ONE TABLET BY MOUTH EVERY 4 HOURS NEEDED FOR PAIN, MAXIMUM DAILY DOSE = SIX TABLETS TAKE ONE TABLET BY MOUTH EVERY 4 HOURS NEEDED FOR PAIN, MAXIMUM DAILY DOSE = SIX TABLETS SOLD: 02/12/2020 [employer] Oxycodone Hydrochloride 15 MG Oral Table t oxyCODONE HCl 15 MG Oral Tablet (ROXICODONE) oxyCODONE HCl 15 MG Oral Tablet (ROXICODONE) 0 12:00:00 AM EDT 15 mg Oral active Chronic Pain Peter e 1 tablet by mouth every 4 (four) hours as needed for Pain, Max Daily Dose: 90 mg Indications: Chronic Pain [facility] Chronic Pain 0.12 % 02/11/2020 12:00:00 AM EDT mouthwash 473 RINSE MOUTH/THROAT DIRECTED TWO TIMES A DAY RINSE MOUTH/THROAT DIRECTED TWO TIMES A DAY SOLD: 02/12/2020 [facility] 0.12 % 12/03/2019 12:00:00 AM EDT mouthwash 473 USE DIRECTED TWO TIMES A DAY USE DIRECTED TWO TIMES A DAY SOLD: 05/07/2020 [employer] Pentoxifylline 400 MG Extended Release O ral Tablet pentoxifylline (TRENTAL) 400 MG CR tablet pentoxifylline (TRENTAL) 400 MG CR tablet 12/01/2018 1 2:00:00 AM EDT aborted TAKE ONE TABLET BY MOUTH TWICE A DAY SWALLOW WHOLE DO NOT CRUSH BREAK OR CHEW [facility] Catheters (BARD COUDE TIP CATHETER) [facility] [id number] 12:00:00 AM EDT aborted Use as directed. Use as directed 6 times daily [facility] irbesartan 300 MG Oral Tablet irbesartan (AVAPRO) 300 MG tablet irbesartan (AVAPRO) 300 MG tablet 10/15/2018 12:00:00 AM EDT 300 mg Oral aborted Take 300 mg by mouth daily [facility] Losartan Potassium 50 MG Oral Tablet losartan (COZAAR) 50 MG tablet losartan (COZAAR) 50 MG tablet 01/17/2018 12:00:00 AM EDT 50 mg Oral aborted Take 50 mg by mouth daily [facility] atorvastatin 20 MG Oral Tablet atorvastatin (LIPITOR) 20 MG tablet atorvastatin (LIPITOR) 20 MG tablet 01/07/2018 12:00:00 AM EDT 20 mg Oral aborted Take 20 mg by mouth daily [facility] Amlodipine 10 MG Oral Tablet amlodipine (NORVASC) 10 M G tablet amlodipine (NORVASC) 10 MG tablet 09/17/2017 12:00:00 AM EDT 10 mg Oral aborted Take 10 mg by mouth daily [facility] 12 HR Orphenadrine Citrate 100 MG Extend ed Release Oral Tablet orphenadrine (NORFLEX) 100 MG tablet orphenadrine (NORFLEX) 100 MG tablet 09/14/2017 12:00: 00 AM EDT 100 mg Oral aborted Osteoarthr itis of cervical spine, unspecified spinal osteoarthritis complication status Take 1 table t by mouth Two times daily as needed for Muscle spasms for up to 60 doses [facility] Osteoarthritis of cervical spine, unspec ified spinal osteoarthritis complication status Losartan Potassium 25 MG Oral Tablet losartan (COZAAR) 25 MG tablet losartan (COZAAR) 25 MG tablet 25 mg Oral aborted Ta ke 25 mg by mouth daily [facility] Diclofenac Sodium 50 MG Delayed Release Oral Tablet diclofenac (VOLTAREN) 50 MG EC tablet diclofenac (VOLTAREN) 50 MG EC tablet 50 mg Oral aborted Take 50 mg by mouth Two Times Daily [facility] Leuprolide Acetate (LUPRON DEPOT IM) Intramuscular aborted Inject into the muscle every 3 (three) months [facility] Ascorbic Acid (VITAMIN C PO) Oral aborted Take by mouth. [facility] Calcium Carbonate 1500 MG Oral Tablet calcium carbonat e (OS-EDWIN) 600 MG TABS calcium carbonate (OS-EDWIN) 600 MG TABS 600 mg Oral aborted Take 600 mg by mouth daily [facility] Losartan Potassium 25 MG Oral Tablet losartan (COZAAR) 25 MG tablet losartan (COZAAR) 25 MG tablet 25 mg Oral aborted Ta ke 25 mg by mouth [facility] Insurance Providers Payer name Policy type / Coverage type Policy ID Covered alliance party ID Covered alliance party's relationship to garcia Policy Garcia Plan Information [facility] I [id number] Self [id number] [facility] I [id number] Self [id number] [facility] I [id number] Self [id number] [facility] [id number] SP [id number] [facility] COMM[facility] PLAN [facility] [id number] SP [id number] MEDICAID [id number] SP [id number] [employer] COMM[employer]ITY [employer]AN MCDHMO [id number] SP [id number] MEDICAID M [id number] Self [id number] UHC I [id number] Self [id number] UHC I [id number] Self [id number] UHC I [id number] Self [id number] MEDICAID M [id number] Self [id number] UHC I [id number] Self [id number] UHC I [id number] Self [id number] ANSI-Medicaid [id number] ANSI-Medicaid [id number] ANSI-Medicaid [id number] ANSI-Medicaid [id number] ANSI-Medicaid [id number] ANSI-Medicaid [id number] ANSI-Medicaid [id number] ANSI-Medicaid [id number] ANSI-Medicaid [id number] ANSI-Medicaid [id number] ANSI-Medicaid [id number] ANSI-Medicaid [id number] ANSI-Medicaid [id number] ANSI-Medicaid [id number] ANSI-Medicaid [id number] ANSI-Medicaid [id number] ANSI-Medicaid [id number] ANSI-Medicaid [id number] ANSI-Medicaid [id number] ANSI-Medicaid [id number] ANSI-Medicaid [id number] ANSI-Medicaid [id number] ANSI-Medicaid [id number] ANSI-Medicaid [id number] ANSI-Medicaid [id number] ANSI-Medicaid [id number] ANSI-Medicaid [id number] ANSI-Medicaid [id number] ANSI-Medicaid [id number] ANSI-Medicaid [id number] ANSI-Medicaid [id number] ANSI-Medicaid [id number] ANSI-Medicaid [id number] ANSI-Medicaid [id number] ANSI-Medicaid [id number] ANSI-Medicaid [id number] UNHC COMMUNITY PLAN MCDHMO [id number] SP [id number] SELF PAY ONLY UNAVAILABLE SP UNAV AILABLE UNHC COMMUNITY PLAN MCDHMO [id number] SP [id number] UNHC COMMUNITY PLAN MCDHMO [id number] SP [id number] UNHC COMMUNITY PLAN MCDHMO UNK SP UNK [facility] Health Maintenance Organization (HMO) [id number] Self Community Plan - [facility] Commercial [id number] Self UNHC COMMUNITY PLAN MCDHMO [id number] SP [id number] UNHC COMMUNITY PLAN MCDHMO [id number] SP [id number] Unitedhealth[employer] Medicaid Medicaid [id number] Self [employer] PLAN [id number] SP [id number] UNHC COMMUNITY PLAN MCDHMO [id number] SP [id number] UNHC COMMUNITY PLAN MCDO [id number] SP [id number] [facility] O [id number] S [id number] MEDICAID [id number] SP [id number] ANSI-Medicaid [id number] ANSI-Medicaid [id number] ANSI-Medicaid [id number] ANSI-Medicaid [id number] ANSI-Medicaid [id number] ANSI-Medicaid [id number] ANSI-Medicaid [id number] ANSI-Medicaid [id number] ANSI-Medicaid [id number] ANS-Medicaid [id number] Problems, Conditions, and Diagnoses Code Display Name Description Problem Type Effective Dates Data Source(s) follow up follow up Diagnosis 03/29/2021 02:42:46 PM [facility] D63.8 Anemia in other chronic diseases classif ied elsewhere Anemia in other chronic diseases classified elsewhere Diagnosis 02/20/2021 12:00:00 AM EDT [place] ([facility]) E83.52 Hypercalcemia Hypercalcemia Diagnosis 02/20/2021 12:00:00 AM EDT [place] ([facility]) 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 Diagnosis 02/20/2021 12:00:00 AM EDT [place] ( [facility]) N39.0 Urinary tract infection, site not specif ied Urinary tract infection, site not specified Diagnosis 02/20/2021 12:00:00 AM EDT [place] ([facility]) on treat on treat Diagnosis 01/18/2021 11:04:47 AM [facility] R10.30 Lower abdominal pain, unspecified Lower abdomina l pain, unspecified Diagnosis 12/14/2020 12:17:10 PM [facility] XRAY XRAY Diagnosis 12/14/2020 12:17:10 PM [facility] 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 Problem 03/08/2020 12:0 0:00 AM EST eCW1 ([facility]) Surgeries/Procedures Procedure Description Date Indications Data Source(s) IR NEPHROSTOMY INSERTION CHANGE <td>IR NEPHROSTOMY INS ERTION CHANGE</td><td>[facility]</td><td>03/21/2021 4:49 PM EST</td><td> Prostate cancer metastatic to bone</td><td></td> 03/21/2021 04:49:00 PM EST Prostate cancer metastatic to bone [facility] Prostate cancer metastatic to bone POCT ID NOW COVID-19 <td>POCT ID NOW COVID-19</td ><td>Routine</td><td>03/21/2021 3:31 PM EST</td><td></td><td> </td> 03/21/2021 03:31:00 PM EST [facility] BLOOD COUNT COMPLETE AUTO&AUTO DIFRNTL WBC COUNT <td>C BC AND DIFFERENTIAL</td><td>Routine</td><td>01/17/2021 3:52 AM EDT</td><td></td><td> </td> 01/17/2021 03:52:00 AM EDT [facility] MAGNESIUM <td>MAGNESIUM LEVEL</td><td> Routine</td><td>01/17/2021 3:52 AM EDT</td><td></td><td> </td> 01/17/2021 03:52:00 AM [facility] BASIC METABOLIC PANEL CALCIUM TOTAL <td>BASIC METABOLI C PANEL</td><td>Routine</td><td>01/17/2021 3:52 AM EDT</td><td></td><td> </td> 01/17/2021 03:52:00 AM [facility] BLOOD COUNT COMPLETE AUTO&AUTO DIFRNTL WBC COUNT <td>C BC AND DIFFERENTIAL</td><td>Routine</td><td>01/16/2021 3:23 AM EDT</td><td></td><td> </td> 01/16/2021 03:23:00 AM [facility] MAGNESIUM <td>MAGNESIUM LEVEL</td><td> Routine</td><td>01/16/2021 3:23 AM EDT</td><td></td><td> </td> 01/16/2021 03:23:00 AM [facility] BASIC METABOLIC PANEL CALCIUM TOTAL <td>BASIC METABOLI C PANEL</td><td>Routine</td><td>01/16/2021 3:23 AM EDT</td><td></td><td> </td> 01/16/2021 03:23:00 AM [facility] TRANSFUSE RBC (ONCE) <td>TRANSFUSE RBC (ONCE)</td ><td>STAT</td><td>01/15/2021 4:46 PM EDT</td><td></td><td></td> 01/15/2021 04:46:11 PM [facility] BLOOD TYPING ABO <td>TYPE AND SCREEN</td><td> STAT</td><td>01/15/2021 12:15 PM EDT</td><td></td><td> </td> 01/15/2021 12:15:00 PM [facility] CONFIRMATORY TYPE <td>CONFIRMATORY TYPE</td><t d>Routine</td><td>01/15/2021 12:20 AM EDT</td><td></td><td> </td> 01/15/2021 12:20:00 AM [facility] BLOOD COUNT COMPLETE AUTO&AUTO DIFRNTL WBC COUNT <td>C BC AND DIFFERENTIAL</td><td>Routine</td><td>01/15/2021 12:20 AM EDT</td><td></td><td> </td> 01/15/2021 12:20:00 AM [facility] BASIC METABOLIC PANEL CALCIUM TOTAL <td>BASIC METABOLI C PANEL</td><td>Routine</td><td>01/15/2021 12:20 AM EDT</td><td></td><td> </td> 01/15/2021 12:20:00 AM [facility] CULTURE BACTERIAL BLOOD AEROBIC W/ID ISOLATES <td>BLOO D CULTURE</td><td>Routine</td><td>01/14/2021 7:58 PM EDT</td><td></td><td></td> 01/14/2021 07:58:00 PM [facility] CULTURE BACTERIAL BLOOD AEROBIC W/ID ISOLATES <td>BLOO D CULTURE</td><td>Routine</td><td>01/14/2021 12:03 PM EDT</td><td></td><td></td> 01/14/2021 12:03:00 PM [facility] COMMUNITY-ACQUIRED DIARRHEA PANEL <td>COMMUNITY-ACQUIR ED DIARRHEA PANEL</td><td>Routine</td><td>01/14/2021 6:19 AM EDT</td><td></td><td> </td> 01/14/2021 06:19:00 AM [facility] BLOOD COUNT COMPLETE AUTO&AUTO DIFRNTL WBC COUNT <td>C BC AND DIFFERENTIAL</td><td>Routine</td><td>01/14/2021 4:56 AM EDT</td><td></td><td> </td> 01/14/2021 04:56:00 AM [facility] BASIC METABOLIC PANEL CALCIUM TOTAL <td>BASIC METABOLI C PANEL</td><td>Routine</td><td>01/14/2021 4:56 AM EDT</td><td></td><td> </td> 01/14/2021 04:56:00 AM [facility] CULTURE BCT ISOL&PRSMPTV ID ISOLATE EA URINE <td>URINE CATHETER CULT</td><td>Routine</td><td>01/13/2021 4:46 PM EDT</td><td></td><td> </td> 01/13/2021 04:46:00 PM [facility] CULTURE BCT ISOL&PRSMPTV ID ISOLATE EA URINE <td>URINE SUPRAPUBIC CUL</td><td>Routine</td><td>01/13/2021 4:46 PM EDT</td><td></td><td></td> 01/13/2021 04:46:00 PM [facility] CULTURE BCT ISOL&PRSMPTV ID ISOLATE EA URINE <td>URINE SUPRAPUBIC CUL</td><td>Routine</td><td>01/13/2021 2:15 PM EDT</td><td></td><td></td> 01/13/2021 02:15:00 PM [facility] IR NEPHROSTOMY INSERTION CHANGE <td>IR NEPHROSTOMY INS ERTION CHANGE</td><td>Routine</td><td>01/13/2021 1:54 PM EDT</td><td></td><td> </td> 01/13/2021 01:54:50 PM [facility] IRON <td>TOTAL FE BINDING CAPACIT Y</td><td>Routine</td><td>01/13/2021 10:32 AM EDT</td><td></td><td> </td> 01/13/2021 10:32:00 AM [facility] LACTATE DEHYDROGENASE LDH <td>LACTATE DEHYDROGENASE</td><td>Routine</td><td>01/13/2021 10:32 AM EDT</td><td></td><td> </td> 01/13/2021 10:32:00 AM [facility] HAPTOGLOBIN QUANTITATIVE <td>HAPTOGLOBIN</td><td>Rout ine</td><td>01/13/2021 10:32 AM EDT</td><td></td><td> </td> 01/13/2021 10:32:00 AM [facility] FOLIC ACID SERUM <td>FOLATE</td><td>Routine</ td><td>01/13/2021 10:32 AM EDT</td><td></td><td> </td> 01/13/2021 10:32:00 AM [facility] FERRITIN <td>FERRITIN LEVEL</td><td>R outine</td><td>01/13/2021 10:32 AM EDT</td><td></td><td> </td> 01/13/2021 10:32:00 AM [facility] CYANOCOBALAMIN VITAMIN B-12 <td>VITAMIN B12</td><td>Ro utine</td><td>01/13/2021 10:32 AM EDT</td><td></td><td> </td> 01/13/2021 10:32:00 AM [facility] POTASSIUM SERUM PLASMA/WHOLE BLOOD <td>POTASSIUM</td><td>Routine</td><td>01/13/2021 6:22 AM EDT</td><td></td><td> </td> 01/13/2021 06:22:00 AM [facility] PHOSPHORUS INORGANIC <td>PHOSPHORUS LEVEL</td><td >Routine</td><td>01/13/2021 6:22 AM EDT</td><td></td><td> </td> 01/13/2021 06:22:00 AM [facility] MAGNESIUM <td>MAGNESIUM LEVEL</td><td> Routine</td><td>01/13/2021 6:22 AM EDT</td><td></td><td> </td> 01/13/2021 06:22:00 AM [facility] BLOOD COUNT COMPLETE AUTO&AUTO DIFRNTL WBC COUNT <td>C BC AND DIFFERENTIAL</td><td>Routine</td><td>01/13/2021 1:42 AM EDT</td><td></td><td> </td> 01/13/2021 01:42:00 AM [facility] CALCIUM IONIZED <td>CALCIUM, IONIZED</td><td >Routine</td><td>01/13/2021 1:42 AM EDT</td><td></td><td> </td> 01/13/2021 01:42:00 AM [facility] [facility] BASIC METABOLIC PANEL CALCIUM TOTAL <td>BASIC METABOLI C PANEL</td><td>Routine</td><td>01/13/2021 1:42 AM EDT</td><td></td><td> </td> 01/13/2021 01:42:00 AM [facility] CT ABDOMEN & PELVIS W/O CONTRAST MATERIAL <td>CT ABDOM EN PELVIS WITHOUT CONTRAST 52406</td><td>Routine</td><td>01/12/2021 7:36 PM EDT</td><td></td><td> </td> 01/12/2021 07:36:43 PM [facility] HEPATITIS C ANTIBODY <td>HEPATITIS C ANTIBODY</td ><td>Routine</td><td>01/12/2021 5:41 PM EDT</td><td></td><td> </td> 01/12/2021 05:41:00 PM [facility] PROTHROMBIN TIME <td>PROTIME INR</td><td>Rout ine</td><td>01/12/2021 5:41 PM EDT</td><td></td><td> </td> 01/12/2021 05:41:00 PM [facility] CALCIUM IONIZED <td>CALCIUM, IONIZED</td><td >Routine</td><td>01/12/2021 5:41 PM EDT</td><td></td><td> </td> 01/12/2021 05:41:00 PM [facility] THER RAD SIMULAJ-AIDED FIELD SETTING COMPLEX <td>CT SI MULATION AT RAD ONC (IN OFFICE)</td><td>Routine</td><td>01/12/2021 2:09 PM EDT</td><td> Prostate cancer</td><td></td> 01/12/2021 02:09:00 PM EDT Prostate cancer [facility] Prostate cancer US RETROPERITONEAL REAL TIME W/IMAGE COMPLETE <td>US R ENAL OR AORTA COMPLETE 18698</td><td>Routine</td><td>01/12/2021 10:59 AM EDT</td><td></td><td> </td> 01/12/2021 10:59:00 AM [facility] MRI BRAIN BRAIN STEM W/O &W/CONTRAST MATERIAL <td>MR B RAIN WITH AND WITHOUT CONTRAST [id number]</td><td>Routine</td><td>01/12/2021 9:53 AM EDT</td><td></td><td> </td> 01/12/2021 09:53:52 AM [facility] CALCIUM IONIZED <td>CALCIUM, IONIZED</td><td >Routine</td><td>01/12/2021 8:24 AM EDT</td><td></td><td> </td> 01/12/2021 08:24:00 AM [facility] COVID-19 PCR <td>COVID-19 PCR</td><td>Rou yandel</td><td>01/12/2021 5:13 AM EDT</td><td></td><td> </td> 01/12/2021 05:13:00 AM [facility] BLOOD COUNT COMPLETE AUTOMATED <td>CBC</td><td>Routine </td><td>01/12/2021 1:11 AM EDT</td><td></td><td> </td> 01/12/2021 01:11:00 AM [facility] PHOSPHORUS INORGANIC <td>PHOSPHORUS LEVEL</td><td >Routine</td><td>01/12/2021 1:11 AM EDT</td><td></td><td> </td> 01/12/2021 01:11:00 AM [facility] PARATHORMONE <td>PTH, INTACT</td><td>Rout ine</td><td>01/12/2021 1:11 AM EDT</td><td></td><td> </td> 01/12/2021 01:11:00 AM [facility] MAGNESIUM <td>MAGNESIUM LEVEL</td><td> Routine</td><td>01/12/2021 1:11 AM EDT</td><td></td><td> </td> 01/12/2021 01:11:00 AM [facility] CALCIUM IONIZED <td>CALCIUM, IONIZED</td><td >Routine</td><td>01/12/2021 1:11 AM EDT</td><td></td><td> </td> 01/12/2021 01:11:00 AM [facility] COMPREHENSIVE METABOLIC PANEL <td>COMPREHENSIVE METABO LIC PANEL</td><td>Routine</td><td>01/12/2021 1:11 AM EDT</td><td></td><td> </td> 01/12/2021 01:11:00 AM [facility] BASIC METABOLIC PANEL CALCIUM TOTAL <td>BASIC METABOLI C PANEL</td><td>Routine</td><td>01/11/2021 6:34 PM EDT</td><td></td><td> </td> 01/11/2021 06:34:00 PM [facility] XR CHEST FRONTAL ONLY [id number] <td>XR CHEST FRONTAL ONLY 85063</td><td>Routine</td><td>01/11/2021 6:07 PM EDT</td><td></td><td> </td> 01/11/2021 06:07:00 PM [facility] CULTURE BACTERIAL BLOOD AEROBIC W/ID ISOLATES <td>BLOO D CULTURE</td><td>Routine</td><td>01/11/2021 11:50 AM EDT</td><td></td><td> </td> 01/11/2021 11:50:00 AM [facility] CALCIUM IONIZED <td>CALCIUM, IONIZED</td><td >Routine</td><td>01/11/2021 11:40 AM EDT</td><td></td><td> </td> 01/11/2021 11:40:00 AM [facility] EKG 12-LEAD - CMAXX REPORT <td>EKG 12-LEAD - CMAXX REPORT</td><td></td><td>01/11/2021 11:35 AM EDT</td><td></td><td></td> 01/11/2021 11:35:37 AM [facility] EKG 12-LEAD - CMAXX REPORT <td>EKG 12-LEAD - CMAXX REPORT</td><td></td><td>01/11/2021 11:35 AM EDT</td><td></td><td></td> 01/11/2021 11:35:37 AM [facility] EKG 12-LEAD <td>EKG 12-LEAD</td><td>STAT </td><td>01/11/2021 11:35 AM EDT</td><td> Prostate cancer metastatic to bone</td><td> </td> 01/11/2021 11:35:37 AM EDT Prostate cancer metastatic to bone [facility] Prostate cancer metastatic to bone CULTURE BACTERIAL BLOOD AEROBIC W/ID ISOLATES <td>BLOO D CULTURE</td><td>Routine</td><td>01/11/2021 11:28 AM EDT</td><td> Prostate cancer metastatic to bone</td><td> </td> 01/11/2021 11:28:00 AM EDT Prostate cancer metastatic to bone [facility] Prostate cancer metastatic to bone LACTATE <td>LACTIC ACID LEVEL, PLASM A</td><td>STAT</td><td>01/11/2021 11:28 AM EDT</td><td> Prostate cancer metastatic to bone</td><td> </td> 01/11/2021 11:28:00 AM EDT Prostate cancer metastatic to [facility] Prostate cancer metastatic to bone AMMONIA <td>AMMONIA LEVEL</td><td>ST AT</td><td>01/11/2021 11:28 AM EDT</td><td> Secondary malignant neoplasm of bone</td><td> </td> 01/11/2021 11:28:00 AM EDT Secondary malignant neoplasm of bone [facility] Secondary malignant neoplasm of bone PROCALCITONIN (PCT) <td>PROCALCITONIN</td><td>Ro utine</td><td>01/11/2021 11:24 AM EDT</td><td> Prostate cancer metastatic to bone</td><td> </td> 01/11/2021 11:24:00 AM EDT Prostate cancer metastatic to [facility] Prostate cancer metastatic to bone URNLS DIP STICK/TABLET REAGENT AUTO MICROSCOPY <td>URI NALYSIS WITH MICROSCOPIC</td><td>STAT</td><td>01/11/2021 11:24 AM EDT</td><td> Prostate cancer metastatic to bone</td><td> </td> 01/11/2021 11:24:00 AM EDT Prostate cancer metastatic to [facility] Prostate cancer metastatic to bone CULTURE BCT ISOL&PRSMPTV ID ISOLATE EA URINE <td>URINE CULTURE</td><td>Routine</td><td>01/11/2021 11:24 AM EDT</td><td> Prostate cancer metastatic to bone</td><td> </td> 01/11/2021 11:24:00 AM EDT Prostate cancer metastatic to [facility] Prostate cancer metastatic to bone PHOSPHORUS INORGANIC <td>PHOSPHORUS LEVEL</td><td >Routine</td><td>01/11/2021 11:24 AM EDT</td><td></td><td> </td> 01/11/2021 11:24:00 AM T [facility] MAGNESIUM <td>MAGNESIUM LEVEL</td><td> Routine</td><td>01/11/2021 11:24 AM EDT</td><td></td><td> </td> 01/11/2021 11:24:00 AM [facility] BLOOD COUNT COMPLETE AUTO&AUTO DIFRNTL WBC COUNT <td>C BC AND DIFFERENTIAL</td><td>Routine</td><td>01/11/2021 10:45 AM EDT</td><td> Malignant tumor of prostate 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</td><td> </td> 01/11/2021 10:45:00 AM EDT Prostate cancer [facility] to [facility] malignant neoplasm of boneMalignant tumor of prostate [facility] 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 Malignant tumor of prostate PROSTATE SPECIFIC ANTIGEN TOTAL <td>PSA, TOTAL AND FREE</td><td>Routine</td><td>01/11/2021 10:45 AM EDT</td><td> Primary prostate cancer with metastasis from prostate to other site</td><td> </td> 01/11/2021 10:45:00 AM EDT Primary prostate cancer with metastasis from prostate to other site [facility] Primary prostate cancer with metastasis from prostate to other site COMPREHENSIVE METABOLIC PANEL <td>COMPREHENSIVE METABO LIC PANEL</td><td>STAT</td><td>01/11/2021 10:45 AM EDT</td><td> Malignant tumor of prostate 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</td><td> </td> 01/11/2021 10:45:00 AM EDT Prostate cancer metastatic to [facility] malignant neoplasm of boneMalignant tumor of prostate [facility] 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 Malignant tumor of prostate XR ABDOMEN AP SUPINE AND AP ERECT [id number] <td>XR ABDOMEN AP SUPINE AND AP ERECT 71316</td><td>STAT</td><td>12/14/2020 12:49 PM EDT</td><td> Lower abdominal pain</td><td> </td> 12/14/2020 12:49:04 PM EDT Lower abdominal pain [facility] Lower abdominal pain BLOOD COUNT COMPLETE AUTO&AUTO DIFRNTL WBC COUNT <td>C BC AND DIFFERENTIAL</td><td>Routine</td><td>12/14/2020 10:40 AM EDT</td><td> Prostate cancer metastatic to bone</td><td> </td> 12/14/2020 10:40:00 AM EDT Prostate cancer metastatic to bone [facility] Prostate cancer metastatic to bone PROSTATE SPECIFIC ANTIGEN TOTAL <td>PSA</td><td>Routin e</td><td>12/14/2020 10:40 AM EDT</td><td> Prostate cancer metastatic to bone</td><td> </td> 12/14/2020 10:40:00 AM EDT Prostate cancer metastatic to bone [facility] Prostate cancer metastatic to bone COMPREHENSIVE METABOLIC PANEL <td>COMPREHENSIVE METABO LIC PANEL</td><td>STAT</td><td>12/14/2020 10:40 AM EDT</td><td> Prostate cancer metastatic to bone</td><td> </td> 12/14/2020 10:40:00 AM EDT Prostate cancer metastatic to bone [facility] Prostate cancer metastatic to bone BLOOD COUNT COMPLETE AUTO&AUTO DIFRNTL WBC COUNT <td>C BC AND DIFFERENTIAL</td><td>Routine</td><td>11/23/2020 9:06 AM EDT</td><td> Prostate cancer metastatic to bone</td><td> </td> 11/23/2020 09:06:00 AM EDT Prostate cancer metastatic to [facility] Prostate cancer metastatic to bone PROSTATE SPECIFIC ANTIGEN TOTAL <td>PSA</td><td>Routin e</td><td>11/23/2020 9:06 AM EDT</td><td> Prostate cancer metastatic to bone</td><td> </td> 11/23/2020 09:06:00 AM EDT Prostate cancer metastatic to [facility] Prostate cancer metastatic to bone COMPREHENSIVE METABOLIC PANEL <td>COMPREHENSIVE METABO LIC PANEL</td><td>STAT</td><td>11/23/2020 9:06 AM EDT</td><td> Prostate cancer metastatic to bone</td><td> </td> 11/23/2020 09:06:00 AM EDT Prostate cancer metastatic to [facility] Prostate cancer metastatic to bone BLOOD COUNT COMPLETE AUTO&AUTO DIFRNTL WBC COUNT <td>C BC AND DIFFERENTIAL</td><td>STAT</td><td>11/16/2020 3:15 PM EDT</td><td> Prostate cancer metastatic to bone</td><td> </td> 11/16/2020 03:15:00 PM EDT Prostate cancer metastatic to [facility] Prostate cancer metastatic to bone PROSTATE SPECIFIC ANTIGEN TOTAL <td>PSA, TOTAL AND FREE</td><td>STAT</td><td>11/16/2020 3:15 PM EDT</td><td> Prostate cancer metastatic to bone</td><td> </td> 11/16/2020 03:15:00 PM EDT Prostate cancer metastatic to [facility] Prostate cancer metastatic to bone COMPREHENSIVE METABOLIC PANEL <td>COMPREHENSIVE METABO LIC PANEL</td><td>STAT</td><td>11/16/2020 3:15 PM EDT</td><td> Prostate cancer metastatic to bone</td><td> </td> 11/16/2020 03:15:00 PM EDT Prostate cancer metastatic to bone [facility] Prostate cancer metastatic to bone LAB RESULTS (OUTSIDE/HISTORICAL) <td>LAB RESULTS (OUTSIDE/HISTORICAL)</td><td></td><td>11/08/2020 10:31 AM EDT</td><td></td><td></td> 11/08/2020 10:31:00 AM EDT [facility] LAB RESULTS (OUTSIDE/HISTORICAL) <td>LAB RESULTS (OUTSIDE/HISTORICAL)</td><td></td><td>11/08/2020 10:30 AM EDT</td><td></td><td></td> 11/08/2020 10:30:00 AM EDT [facility] RADIOLOGY REPORT <td>RADIOLOGY REPORT</td><td ></td><td>11/08/2020 10:27 AM EDT</td><td></td><td></td> 11/08/2020 10:27:00 AM EDT [facility] RADIOLOGY REPORT <td>RADIOLOGY REPORT</td><td ></td><td>11/08/2020 10:26 AM EDT</td><td></td><td></td> 11/08/2020 10:26:00 AM EDT [facility] BONE &/JOINT IMAGING WHOLE BODY <td>NM BONE SCAN IMAGI NG WHOLE BODY [id number]</td><td>Routine</td><td>10/05/2020 12:59 PM EDT</td><td> Prostate cancer metastatic to bone</td><td> </td> 10/05/2020 12:59:00 PM EDT Prostate cancer metastatic to bone [facility] Prostate cancer metastatic to bone BLOOD COUNT COMPLETE AUTO&AUTO DIFRNTL WBC COUNT <td>C BC AND DIFFERENTIAL</td><td>STAT</td><td>08/20/2020 10:48 AM EDT</td><td> Prostate cancer metastatic to bone</td><td> </td> 08/20/2020 10:48:00 AM EDT Prostate cancer metastatic to [facility] Prostate cancer metastatic to bone PROSTATE SPECIFIC ANTIGEN TOTAL <td>PSA, TOTAL AND FREE</td><td>STAT</td><td>08/20/2020 10:48 AM EDT</td><td> Prostate cancer metastatic to bone</td><td> </td> 08/20/2020 10:48:00 AM EDT Prostate cancer metastatic to [facility] Prostate cancer metastatic to bone COMPREHENSIVE METABOLIC PANEL <td>COMPREHENSIVE METABO LIC PANEL</td><td>STAT</td><td>08/20/2020 10:48 AM EDT</td><td> Prostate cancer metastatic to bone</td><td> </td> 08/20/2020 10:48:00 AM EDT Prostate cancer metastatic to [facility] Prostate cancer metastatic to bone BLOOD COUNT COMPLETE AUTO&AUTO DIFRNTL WBC COUNT <td>C BC AND DIFFERENTIAL</td><td>STAT</td><td>05/21/2020 10:07 AM EST</td><td> Prostate cancer metastatic to bone</td><td> </td> 05/21/2020 10:07:00 AM EST Prostate cancer metastatic to [facility] Prostate cancer metastatic to bone PROSTATE SPECIFIC ANTIGEN TOTAL <td>PSA, TOTAL AND FREE</td><td>STAT</td><td>05/21/2020 10:07 AM EST</td><td> Prostate cancer metastatic to bone</td><td> </td> 05/21/2020 10:07:00 AM EST Prostate cancer metastatic to bone [facility] Prostate cancer metastatic to bone COMPREHENSIVE METABOLIC PANEL <td>COMPREHENSIVE METABO LIC PANEL</td><td>STAT</td><td>05/21/2020 10:07 AM EST</td><td> Prostate cancer metastatic to bone</td><td> </td> 05/21/2020 10:07:00 AM EST Prostate cancer metastatic to bone [facility] Prostate cancer metastatic to bone BLOOD [...] 02/19/2020 02:57:00 PM EDT Primary prostate adenocarcinoma [facility] pitnd Primary prostate adenocarcinoma Results ID Date Data Source [id number] 03/30/2021 12:03:16 PM EST [facility] Name Value Range Interpretation Code Description Data Belinda rce(s) Supporting Document(s) Progress Note [facility] [id number]AB9fU2tALY0BCjQYyUiScRfOmBa [facility] [file] [id number]+DKmdpJRlsTgcQCJYTrG5BsZ2YHsfXCDYTw0J ID Date Data Source [id number] 03/22/2021 10:22:46 AM [facility] IR NEPHROSTOMY INSERTION CHANGEFINAL RES ULTInterpreted by:Alex [...] was prepped and draped with sterile technique. Senior Electrical Designer image demonstrates right percutaneous nephrostomy catheter(s) in [...] right 10 Fr nephrostomy catheter.Plan: Order 10 Swedish mini resolve catheter for next exchange. Schedule patient for AP 1 for moderate sedation on next exchange. Patient has difficulty lying prone and would like to attempt lateral decubitus positioning on hallux exchange.This document has been electronically signed by Alex Flores MD on 03/22/2021 10:20 AM Name Value Range Interpretation Code Description Data Belinda rce(s) Supporting Document(s) ID Date Data Source [id number] 03/21/2021 03:31:00 PM EST [facility] Name Value Range Interpretation Code Description Data Belinda rce(s) Supporting Document(s) SARS coronavirus 2 RdRp gene Test performed using the [employer] NOW COVID-19 assay. This test is only for use under the Food and Drug Administration's Emergency Use Authorization. Additional information is available on the [facility] websites for health care providers and patients. [place] This lab was ordered by [facility] and reported by [facility]. ID Date Data Source [id number] 03/21/2021 03:42:21 PM [facility] Name Value Range Interpretation Code Description Data Belinda rce(s) Supporting Document(s) SARS coronavirus 2 RdRp gene Negative [facility] Test performed using the [employer] NOW C OVID-19 assay. This test is only for use under the Food and Drug Administration's Emergency Use Authorization. 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 [facility] Patient has symptoms related to condition [facility] When did you start to experience these symptoms [Date and time] [Phen X] [facility] Patient was hospitalized because of this condition [facility] patient was admitted to ICU for condition [facility] Patient resides in a congregate care setting [facility] status [facility] ID Date Data Source [id number] 03/15/2021 04:13:55 PM EST [facility] Name Value Range Interpretation Code Description Data Belinda rce(s) Supporting Document(s) Progress Note [facility] [id number] lbm [file] [id number] ID Date Data Source [id number] 03/15/2021 01:31:42 PM [facility] 29.1Serum levels of PSA should not be in terpreted as absolute evidence of the presence or absence of Cancer. Results obtained with different methods cannot be used interchangeably. This method is manufactured by [employer] and is an electrochemiluminesence immunoassay. Name Value Range Interpretation Code Description Data Belinda rce(s) Supporting Document(s) Leukocytes [#/volume] in Blood by Automated count 6.9 10*3/uL 4-10 [facility] Erythrocytes [#/volume] in Blood by Automated count 3.58 10*6/uL 4.6- 6.1 L [facility] Hemoglobin [Mass/volume] in Blood 9.7 g/dL 13.5-18 L [facility] Hematocrit [Volume Fraction] of Blood by Automated count 30.4 % 4 1-53 L [facility] Erythrocyte mean corpuscular volume [Entitic volume] by Auto mated count 84.8 fL 80-96 [facility] Erythrocyte mean corpuscular hemoglobin [Entitic mass] by Automated count 27.0 pg 27-33 [facility] Erythrocyte mean corpuscular hemoglobin concentration [Mass/volume] by Automated count 31.9 g/dL 32.0-36.0 L [facility] Erythrocyte distribution width [Ratio] by Automated count 20.1 % 11.5-14.5 H [facility] Platelets [#/volume] in Blood by Automated count 474 10*3/uL 150-400 H [facility] Differential cell count method - Blood [facility] Neutrophils/100 leukocytes in Blood by Automated count 76 % [facility] Lymphocytes/100 leukocytes in Blood by Automated count 15 % [facility] Monocytes/100 leukocytes in Blood by Automated count 8 % [facility] Eosinophils/100 leukocytes in Blood by Automated count 0 % [facility] Basophils/100 leukocytes in Blood by Automated count 1 % [facility] Neutrophils [#/volume] in Blood by Automated count 5.22 10*3/uL 1.8-7 .0 [facility] Lymphocytes [#/volume] in Blood by Automated count 1.06 10*3/uL 1.2-4 .0 L [facility] Monocytes [#/volume] in Blood by Automated count 0.56 10*3/uL 0-0.8 [facility] Eosinophils [#/volume] in Blood by Automated count 0.03 10*3/uL 0-0.5 [facility] Basophils [#/volume] in Blood by Automated count 0.05 10*3/uL 0-0.2 [facility] Nucleated erythrocytes/100 leukocytes [Ratio] in Blood by Automated count 0 /100{WBCs} 0-0 [facility] ID Date Data Source [id number] 03/15/2021 02:45:42 PM [facility] 29.1Serum levels of PSA should not be [...] dye binding method 3.4 g/dL 3.5-5.2 L [facility] Bilirubin.total [Mass/volume] in Serum or Plasma 0.2 mg/dL <1.2 [facility] Calcium [Mass/volume] in Serum or Plasma 9.4 mg/dL 8.6-10.0 [facility] Chloride [Moles/volume] in Serum or Plasma 92 mmol/L 98-107 L [facility] Creatinine [Mass/volume] in Serum or Plasma 0.51 mg/dL 0.70-1.20 L [facility] Glucose [Mass/volume] in Serum or Plasma 111 mg/dL 70-140 [facility] Alkaline phosphatase [Enzymatic activity/volume] in Serum or Plasma 233 U/L 40-129 H [facility] Potassium [Moles/volume] in Serum or Plasma 3.5 mmol/L 3.4-5.1 [facility] Protein [Mass/volume] in Serum or Plasma 6.4 g/dL 6.4-8.3 [facility] Sodium [Moles/volume] in Serum or Plasma 134 mmol/L 136-145 L [facility] Aspartate aminotransferase [Enzymatic activity/volume] in Serum or Plasma 26 U/L <40 [facility] Urea nitrogen [Mass/volume] in Serum or Plasma 5 mg/dL 8-23 L [facility] Osmolality of Serum or Plasma by calculation 276 mosm/kg 275-300 [facility] Creatinine/Urea nitrogen [Mass Ratio] in Serum or Plasma 10 [facility] Bicarbonate [Moles/volume] in Serum 24 mmol/L 22-29 [facility] Alanine aminotransferase [Enzymatic activity/volume] in Seru m or Plasma 6 U/L <41 [facility] Anion gap 3 in Serum or Plasma 18 mmol/L 8-15 H [facility] Glomerular filtration rate/1.73 sq M pre dicted among non-blacks [Volume Rate/Area] in Serum or Plasma by Creatinine-based formula (MDRD) >6 0 [facility] Glomerular filtration rate/1.73 sq M pre dicted among blacks [Volume Rate/Area] in Serum or Plasma by Creatinine-based formula (MDRD) >60 [facility] ID Date Data Source [id number] 03/15/2021 02:47:22 PM [facility] 29.1Serum levels of PSA should not be in terpreted as absolute evidence of the presence or absence of Cancer. Results obtained with different methods cannot be used interchangeably. This method is manufactured by [employer] and is an electrochemiluminesence immunoassay. Name Value Range Interpretation Code Description Data Belinda rce(s) Supporting Document(s) Prostate Specific Ag Free [Mass/volume] in Serum or Plasma 4.8 ng/mL [facility] Not Applicable ID Date Data Source [id number] 03/08/2021 03:19:59 PM [facility] Name Value Range Interpretation Code Description Data Belinda rce(s) Supporting Document(s) Progress Note [facility] [id number]/VBIyeGFIkt4SjJVvySFh1ZPyzXRLlM3TeTWE7oE6qJIQ3IBjFLvHaMzMoELP9 [facility] [file] FHJHk5M+PqGQ0FW9sRPowhur7keplksKjyjhveqk+f +2m/zaTiH0CNVyDnjr+jIFgN3Xl+Vw0xeBl1fM43c6+meiljJAbHGfZzpYje1LV6BJ7NWefjGUSZadQD qrjzfWykpi9jIRCh/oGREEcFwRPWsOcOPBM4d/IN0M5HlDyNfjp4LpyNUJ1CAIGvFtxoiMElMsOexxAo V57YrHQlhjRFlerP+Y9Gy+Z1gxcDtQrMlytYMbpXxD iud1ZqegM6/hADEjYTJzt82bEAxMxQhvq+nXIX9gZVhwuXRmdrNJ4eKJwmJuu2hqTXVyZp15PdglUVUp ilRaO4zGvWVnXA/poOu22cMwMWvE+nzMM2VaAKprQHeL6fxHFg3uGB41GKzADry6CRZkddjk48HqQ5/V yflTkqkxkl+OF69wHPTAGZoBBIKJ7RTjThH3oHax04 cjrhp4BjabHT+kbE53xl8QcyqkxTcrMxkdMrknN1S2gPXrHPtvfMcKBeOWkHPb6ilqUpT6Y1Wo+wdRiI EP8QHN8uYJu1FhPrTlgMHfePkjGbTLUviRPgHgJ8XljbwC/hQ59xuvJuRHcMIAnhhwDN9czVBL944xPj BvV4qvuSXYCFMnEwSOlWYW2ehgfTbRMgn1vpFPISXR ewMqUiYLvW+GawO6JIr71pHIdw5OQKQCUWgRIZ8dHH19Q3efkXfCrtClaW8ap2CZIZz0hNaTEJeDaH0r 71loMrMWeJwtLGxTHhdeD7lM4HboSYZteaqLA+gxF4aJepdu5AzkQTeY9a/rlwLVjYUxqO5nlPyKAc9P ohERr71olHEE5cWOgpl7vRSOmDRfDXi8YKS00kupbp 8i2VSaIkOITdVW4aqVrBzN7ZbaUEzgzGkA3WRlxjWemBKdOJSQ0YNNdyLqckrdfyWNuoiBPxtJjoV+PHOTOGRAPHIC AIDE [file] 6Dj+xVCTLi6sU1cuON7mHeSAVxrExUYshJ01/Mejía+MdIGG4vTFSwN2mMshYJNR+qleO3fyVEVmUzGTFi8 o2zoFTlJ1djHAQ1aRLJGNzDEgQQIv5DMa4hmwiQD62y5GogoHKCMS2XfbwWFA+sfaRvUiZTcbYptxx3E G9U15ccupbEMupraSNUTZSU5i6gcZloxue9elohlOC [file] Rg0K ID Date Data Source [id number] 02/18/2021 09:22:33 AM EDT [facility] Center Name Value Range Interpretation Code Description Data Belinda rce(s) Supporting Document(s) Progress Note [facility] JOSQLw8sEzGNCxHz35/CJBdxETKxu4VkRGqkHSq4VDszTWJvA0FeRRH9aA5lIPK5KArRKvLqYsDsYVTe lbm [file] ONoifYHsbQhgWOTDWtL9Lfx2BJppOQIFPw2O ID Date Data Source [id number] 02/16/2021 01:10:00 PM EDT [facility] Name Value Range Interpretation Code Description Data Belinda rce(s) Supporting Document(s) SARS coronavirus 2 RNA [Presence] in Res piratory specimen by DALLAS with probe detection NEGATIVE [facility] This lab was ordered by [facility] a nd reported by [facility]. ID Date Data Source [id number] 02/11/2021 02:49:37 PM EDT [facility] Name Value Range Interpretation Code Description Data Belinda rce(s) Supporting Document(s) Progress Note [facility] XKLUWz9bKgJPKuKw74/YGSvpGGKrg1VzAGajJTr6VRdfJHTdI3PlYIO6vP9mZSN0MErYIfZnGnSuYPU1 lbm [file] ICAgICAgICAgICAgICAgICAgICAgICAgICAgICAgICAgICAgICAgICAgICAgICAgICAgICAgICAgICAg ICAgICAgICAgICAgICAgICAgICAgICAgICAgICAgIC ANCiAgICAgICAgICAgICAgICAgICAgICAgICAgICAgICAgICAgICAgICAgICAgICAgICAgICAgICAgIC AgICAgICAgICAgICAgICAgICAgICAgICAgICAgICAgICAgICAgICAgICANCiAgICAgICAgICAgICAgIC AgICAgICAgICAgICAgICAgICAgICAgICAgICAgICAg ICAgICAgICAgICAgICAgICAgICAgICAgICAgICAgICAgICAgICAgICAgICAgICAgICAgICANCiAgICAg ICAgICAgICAgICAgICAgICAgICAgICAgICAgICAgICAgICAgICAgICAgICAgICAgICAgICAgICAgICAg ICAgICAgICAgICAgICAgICAgICAgICAgICAgICAgIC AgICANCiAgICAgICAgICAgICAgICAgICAgICAgICAgICAgICAgICAgICAgICAgICAgICAgICAgICAgIC AgICAgICAgICAgICAgICAgICAgICAgICAgICAgICAgICAgICAgICAgICAgICANCiAgICAgICAgICAgIC AgICAgICAgICAgICAgICAgICAgICAgICAgICAgICAg ICAgICAgICAgICAgICAgICAgICAgICAgICAgICAgICAgICAgICAgICAgICAgICAgICAgICAgICANCiAg ICAgICAgICAgICAgICAgICAgICAgICAgICAgICAgICAgICAgICAgICAgICAgICAgICAgICAgICAgICAg ICAgICAgICAgICAgICAgICAgICAgICAgICAgICAgIC AgICAgICANCiAgICAgICAgICAgICAgICAgICAgICAgICAgICAgICAgICAgICAgICAgICAgICAgICAgIC AgICAgICAgICAgICAgICAgICAgICAgICAgICAgICAgICAgICAgICAgICAgICAgICANCiAgICAgICAgIC AgICAgICAgICAgICAgICAgICAgICAgICAgICAgICAg ICAgICAgICAgICAgICAgICAgICAgICAgICAgICAgICAgICAgICAgICAgICAgICAgICAgICAgICAgICAN CiAgICAgICAgICAgICAgICAgICAgICAgICAgICAgICAgICAgICAgICAgICAgICAgICAgICAgICAgICAg ICAgICAgICAgICAgICAgICAgICAgICAgICAgICAgIC AgICAgICAgICANCjw/fUAxC0fnxTTuygI7F6vgFv2XQl9MWL6rq6QaUWFeMOufmdCrCqnNTpFxLRZkVt jGQcl7OOlnEX9OeFSoR4JzR8IiHWfvEZ2VXNHaJRSwjXFsPRGdRCMyZdF0QSSoSIykRG0XxDIqXGrfJR IlXMTqWM0UKQXqK606oqNhWX1SOq1CWbGeWB3jjy0Z YEswLQHpNbyJXum1EFgsEU2TeHEhoQNpXCEbZQAXErMtM4nkz4MzHiQoZRJOIWixTH4Wm2XacCSaYGf+ Mg4MHI4ee6XoPQqkQXMcSX6iow9YLTyJJkXqC7BipZqdCDUem5wrBXEpIU9kdEIlANO1IKNgsGYGKB4u DZ4xkgbkXMYuOSUjSRGkYA5cRGIdVVXuNsCpDOJRFO 1RQMMnLFWurQTvRRBkEAWPFO4PBXdmDFI3ZKHfwiHpvZAmYIzrKC8QVDJnecGcZKyoZIJDSCx+Pg0KZW 4hn9RrOVueSUHiBW9bri6BTXsTKtVbC4W9zIVyU6D6QDlhAq2EFIRuGCLyOMayUCGKTEfhLO8LMX1fra Z7VE1MmLCiIITsYVAspMDlKAp4Q78mrGPrKBjfEC1G ICA+Immanuel+Hj4SSIFcBWPjCQNdTrNlFXHJCuFwY0PeE2GKq4VnZ8OnGT85tHungxZwDWnlKL6ECF0uDINm DHCJZR1DcGBnaK3xzoRpBPLdZXIBHbVgC49vwXJkPIGvGSZ4SJOdOh0HVOCfM4LdbeLlfXfnihMzPAPn MOAUSW1UANonmvHloZHwlAjpAM04fQraFJ0RZo7UJz NvUU0jcw1GyOQzTy7PSUXbLw0SSDZgWMWwRUNoRDB8KMFbGrXgQXbuEOQfICDlXKI3ZTUuQJOjRB8ZCw EkEKBwOFo4IzBuELZpLEIgds8PELAxHHBnQBF3CBMwBNPtJFFcARauRIOhLUHxUBG7WKEiARTzEX0ZNb SxOOTdJSOgZIteDGIgIYOrwb7ZCAKuQBOeHyUvIcYx SEYeXATaKSowRMXcIREdHCoxJJTzSNQyCM7NBiDwMYZdGKQ8RoshBFUrJEUstx8ZWVFcXYOlDeo6GiHm MNJyDUUcPWpsOISgMGY2AVK0HFBmAQMtYD1CVoGlFNKuLOGkXMrpVVTtXINcxd5QDPQzLFEvLEW2VGLx JKLgIUNtJXzkVJUaZGC2NhQ4MAVaIOTfWN3SMcCmQE KmGBU3AMdqEYYdNCLant8LBXMxJJIkEmD1FZRrBJHiISFmGShvUFIuXQH7JPL1CCBiDRRjMJ2SJpCcDN PmXYe2SPFeCDWyECZzwz0SJKMvQVLzCuj0OLXmQRKkGUNpEYluBXIvXCE0RokqVYCfESEhMX5CSbXuQL XiDGw2JdBlWNJxYRLhob2XFBRuBEHdOEWvSQPwTJIw STUlXIc3keQcfTTbFOn9RZ3LD5ZdfgQvPkMQGf9Ef272ULYlMRFnDo1FB2gtBd3tKCHsJYNWVq2GQLu5 GwWkIOMgPFKpKtYpTZUfKqyyECDrFJH8MFI7P4UlCeU+PGh5IcYxK7QtBhYcTZB1TlNvHZUtSrDsLPjt BWRxAhFdZq0eTQWYQm8+CYoukICcyBwzWOAMOmU7FNO5GCojJCAQJy7X ID Date Data Source [id number] 02/08/2021 05:05:32 PM EDT [facility] Name Value Range Interpretation Code Description Data Belinda rce(s) Supporting Document(s) Progress Note [facility] NWRKRb6oLlBUUqNl26/PGAjxQLOzl5FbGUksEQn0OBzaSPVeK7LcRJT6vK9kREZ9EZxGDqBmGyWoECTg lbm [file] XSANCj4+KGviuKPlzZizBRNKFkS2UYs2LWohEZMOHg1S ID Date Data Source [id number] 02/04/2021 02:19:00 PM EDT [facility] Name Value Range Interpretation Code Description Data Belinda rce(s) Supporting Document(s) SARS coronavirus 2 RNA [Presence] in Res piratory specimen by DALLAS with probe detection NEGATIVE [facility] This lab was ordered by [facility] a nd reported by [facility]. ID Date Data Source [id number] 02/01/2021 05:07:16 PM EDT [facility] 9.5Serum levels of PSA should not be int erpreted as absolute evidence of the presence or absence of Cancer. Results obtained with different methods cannot be used interchangeably. This method is manufactured by [employer] and is an electrochemiluminesence immunoassay. Name Value Range Interpretation Code Description Data Belinda rce(s) Supporting Document(s) Leukocytes [#/volume] in Blood by Automated count 5.2 10*3/uL 4-10 [facility] Erythrocytes [#/volume] in Blood by Automated count 3.13 10*6/uL 4.6- 6.1 L [facility] Hemoglobin [Mass/volume] in Blood 9.0 g/dL 13.5-18 L [facility] Hematocrit [Volume Fraction] of Blood by Automated count 27.0 % 4 1-53 L [facility] Erythrocyte mean corpuscular volume [Entitic volume] by Auto mated count 86.2 fL 80-96 [facility] Erythrocyte mean corpuscular hemoglobin [Entitic mass] by Automated count 28.8 pg 27-33 [facility] Erythrocyte mean corpuscular hemoglobin concentration [Mass/volume] by Automated count 33.4 g/dL 32.0-36.0 [facility] Erythrocyte distribution width [Ratio] by Automated count 18.1 % 11.5-14.5 H [facility] Platelets [#/volume] in Blood by Automated count 341 10*3/uL 150-400 [facility] Differential cell count method - Blood [facility] Neutrophils/100 leukocytes in Blood by Automated count 73 % [facility] Lymphocytes/100 leukocytes in Blood by Automated count 15 % [facility] Monocytes/100 leukocytes in Blood by Automated count 10 % [facility] Eosinophils/100 leukocytes in Blood by Automated count 1 % [facility] Basophils/100 leukocytes in Blood by Automated count 1 % [facility] Neutrophils [#/volume] in Blood by Automated count 3.84 10*3/uL 1.8-7 .0 [facility] Lymphocytes [#/volume] in Blood by Automated count 0.76 10*3/uL 1.2-4 .0 L [facility] Monocytes [#/volume] in Blood by Automated count 0.52 10*3/uL 0-0.8 [facility] Eosinophils [#/volume] in Blood by Automated count 0.03 10*3/uL 0-0.5 [facility] Basophils [#/volume] in Blood by Automated count 0.03 10*3/uL 0-0.2 [facility] Nucleated erythrocytes/100 leukocytes [Ratio] in Blood by Automated count 0 /100{WBCs} 0-0 [facility] ID Date Data Source [id number] 02/01/2021 05:56:04 PM [facility] 9.5Serum levels of PSA should not be int erpreted as absolute evidence of the presence or absence of Cancer. Results obtained with different methods cannot be used interchangeably. This method is manufactured by [employer] and is an electrochemiluminesence immunoassay. Name Value Range Interpretation Code Description Data Belinda rce(s) Supporting Document(s) Prostate Specific Ag Free [Mass/volume] in Serum or Plasma 1.5 ng/mL [facility] 15.2 ID Date Data Source [id number] 02/01/2021 06:14:44 PM [facility] 9.5Serum levels of PSA should not be int erpreted as absolute evidence of the presence or absence of Cancer. Results obtained with different methods cannot be used interchangeably. This method is manufactured by [employer] and is an electrochemiluminesence immunoassay. Name Value Range Interpretation Code Description Data Belinda rce(s) Supporting Document(s) Albumin [Mass/volume] in Serum or Plasma by Bromocresol green (BCG) dye binding method 4.0 g/dL 3.5-5.2 [facility] Bilirubin.total [Mass/volume] in Serum or Plasma 0.3 mg/dL <1.2 [facility] Calcium [Mass/volume] in Serum or Plasma 13.3 mg/dL 8.6-10.0 [facility] Results called to and read back by ON C ALL DR GEE AT [id number] /[id number] Chloride [Moles/volume] in Serum or Plasma 89 mmol/L 98-107 L [facility] Creatinine [Mass/volume] in Serum or Plasma 0.90 mg/dL 0.70-1.20 [facility] Glucose [Mass/volume] in Serum or Plasma 112 mg/dL 70-140 [facility] Alkaline phosphatase [Enzymatic activity/volume] in Serum or Plasma 156 U/L 40-129 H [facility] Potassium [Moles/volume] in Serum or Plasma 3.3 mmol/L 3.4-5.1 L [facility] Protein [Mass/volume] in Serum or Plasma 7.4 g/dL 6.4-8.3 [facility] Sodium [Moles/volume] in Serum or Plasma 131 mmol/L 136-145 L [facility] Aspartate aminotransferase [Enzymatic activity/volume] in Serum or Plasma 30 U/L <40 [facility] Urea nitrogen [Mass/volume] in Serum or Plasma 10 mg/dL 8-23 [facility] Osmolality of Serum or Plasma by calculation 272 mosm/kg 275-300 L [facility] Creatinine/Urea nitrogen [Mass Ratio] in Serum or Plasma 11 [facility] Bicarbonate [Moles/volume] in Serum 27 mmol/L 22-29 [facility] Alanine aminotransferase [Enzymatic activity/volume] in Seru m or Plasma 11 U/L <41 [facility] Anion gap 3 in Serum or Plasma 15 mmol/L 8-15 [facility] Glomerular filtration rate/1.73 sq M pre dicted among non-blacks [Volume Rate/Area] in Serum or Plasma by Creatinine-based formula (MDRD) >6 0 [facility] Glomerular filtration rate/1.73 sq M pre dicted among blacks [Volume Rate/Area] in Serum or Plasma by Creatinine-based formula (MDRD) >60 [facility] ID Date Data Source [id number] 01/25/2021 11:43:33 AM EDT [facility] Name Value Range Interpretation Code Description Data Belinda rce(s) Supporting Document(s) Progress Note [facility] AIUMZs2gJtYMPkIe68/IVCshZMPja1QvPTjyIVp2SEiuGFNbX0UoOQS2hS0tFYX6SNbAVyQwLeAtCEG8 [facility] [file] [employer] WORK[employer]/5MHqqgaAMPumHMFWDMd8eGZYiTrVK+wQqvzIT0J [file] [facility]/is009F4U18WhXs58JTck1evzI5vA6cPO9gUrbqd2fQptCZsmPsHhFn+kmOzk2EvuANf4pm8vrclF [file] YcFkIbXySLhoLWOKQn2C ID Date Data Source [id number] 01/25/2021 11:43:28 AM EDT [facility] Name Value Range Interpretation Code Description Data Belinda rce(s) Supporting Document(s) Progress Note [facility] EWJSXd9wTfWSGnOc28/YYLhxPRGsh8BcAZhsHQw7VKttCTLxI3MeHJD2uG3gRAQ0ZTcJHuQdWnArXGE9 lbm [file] dGE+DQogICAgICAgICAgICAgICAgICAgICAgICAgICAgICAgICAgICAgICAgICAgICAgICAgICAgICAg ICAgICAgICAgICAgICAgICAgICAgICAgICAgICAgIC AgICAgICAgICAgICAgDQogICAgICAgICAgICAgICAgICAgICAgICAgICAgICAgICAgICAgICAgICAgIC AgICAgICAgICAgICAgICAgICAgICAgICAgICAgICAgICAgICAgICAgICAgICAgICAgICAgICAgDQogIC AgICAgICAgICAgICAgICAgICAgICAgICAgICAgICAg ICAgICAgICAgICAgICAgICAgICAgICAgICAgICAgICAgICAgICAgICAgICAgICAgICAgICAgICAgICAg ICAgICAgDQogICAgICAgICAgICAgICAgICAgICAgICAgICAgICAgICAgICAgICAgICAgICAgICAgICAg ICAgICAgICAgICAgICAgICAgICAgICAgICAgICAgIC AgICAgICAgICAgICAgICAgDQogICAgICAgICAgICAgICAgICAgICAgICAgICAgICAgICAgICAgICAgIC AgICAgICAgICAgICAgICAgICAgICAgICAgICAgICAgICAgICAgICAgICAgICAgICAgICAgICAgICAgDQ ogICAgICAgICAgICAgICAgICAgICAgICAgICAgICAg ICAgICAgICAgICAgICAgICAgICAgICAgICAgICAgICAgICAgICAgICAgICAgICAgICAgICAgICAgICAg ICAgICAgICAgDQogICAgICAgICAgICAgICAgICAgICAgICAgICAgICAgICAgICAgICAgICAgICAgICAg ICAgICAgICAgICAgICAgICAgICAgICAgICAgICAgIC AgICAgICAgICAgICAgICAgICAgDQogICAgICAgICAgICAgICAgICAgICAgICAgICAgICAgICAgICAgIC AgICAgICAgICAgICAgICAgICAgICAgICAgICAgICAgICAgICAgICAgICAgICAgICAgICAgICAgICAgIC AgDQogICAgICAgICAgICAgICAgICAgICAgICAgICAg ICAgICAgICAgICAgICAgICAgICAgICAgICAgICAgICAgICAgICAgICAgICAgICAgICAgICAgICAgICAg ICAgICAgICAgICAgDQogICAgICAgICAgICAgICAgICAgICAgICAgICAgICAgICAgICAgICAgICAgICAg ICAgICAgICAgICAgICAgICAgICAgICAgICAgICAgIC TcXGJeAXQnQQLrNWLuYCKwRKQaWZMhZXz8X6gtRVXqYRPoUY6kSZo0Sr9+EUuKUuVsEAY8wnFgeQ0NOP 1cu5KeCZpeGGQij5EqBCy8DC6PSGZeJFhcWL7QPXwnte5YKDCaQBXoxFEGn1mcMxZeHKN7DBLoVxjqTJ 6FOBIcT9opbdSxZQZbZWKGKRqdDJDQTYAaMEKgXbYw FhXhMVQxJHSsXHNDLAU2LLJoEmJbVWCjSWQxCdGaWCDNPP7OHjWmQ6DmzL78YZfSJi8+DQplbmRvYmoN IhIzJFCbv5RmZZu3EC4VBJIxYvmng5WxYNPmURTGEZynTT3JCWF8XXZxBMIwQc7XEXDsJ534gsHbKG5O Xd3NKkFaPO1mtm8NMUOeZZHnPpkMSha0CAynMY4XgX QxXYxYrk9ldaEpuxTVs9XtziZclVZXPF1yLDPMQNnqoOWwRBKiRB2DNNM9OBozHVExYbOdEBXkSTndJC TCNFiLVfMjQ1Cbo1ZnJpT8BOGzLvPyRSbtPBAdBXmoTD34xVksLN1EACIgKGObHJ90CUVkGAWcXf6SRw 7YRpIaPY0ait4OQqZoQM6rso0QDBfUSyKbC0N6zUAi I9Tslx88YR6AzZQ7wMYcFK7AaM9jNF4Ag3WlRGRiEmFtYZDvQNTiCCWzTBYaDbSkGC7IEJBwMgUckFPd SUWhVVP6XJNlQwO0DDUsUK3AIFHxKEQ4AY4LLI6OShnxZ3BGSMtooSlcFmVTMXX/QUNUSVZJVFkmTVJf N05RR5NALRvUTmuaCVzBZfjeVf5fTGl+Pt1SIC5ro6 YjWEj0SeAyFT8zpy0GNLdXNyTpA6B5cBIpV3R1EEntOq2RZKYnVLToWenjCJKNFVsqHC6BEX7pdwS2PP 5GvDBpUBSkSPTypSZmWCx0C99rvAXnAOpwGU1NMUW+Immanuel+Bs8UGGWvWDMaBHOgLzFqNGRRYyOvL3OiY8 SCo2ZiZ0GpZW00tRnzttQfVTejWD5VGG5wFTPaCPFI HS1BpEWgvY4uxdY2QMReUPKPQfDjM96pzKYpNKHjVJC2VDFyKe4CYZGgC9OjiqZsiPqmtnIhNPMePBZH HX3KRGfvrlFfcRPndRmzNP85eCcaMV3YYv3UJfDdRY7xwm4TqMGhLa5WTAW0Qw7WJUKcEGAwFTDhXCN9 SUKfGgKoDJvqHIFrYLVnJGX8KZZqGASnVT3RZlVyMA TrYCI6AoHdYHTzBJFbjh4XEHAlCNS2GoG6GsBbTDYkMSItIDpbKXWyDSGmYMK2ZZAbWLQxQC2WArIbSL SeAOE9YNLuJPCkQRUywk9PVZZpUFE2LuS6YCOkGZEnNDHhATwfUVVhUDW2EPD6MOHuLPLnQB3VKoMmQR NnPAnjQCXhPUJdLICmvn3JIIOlHNCzSSV2UkCeLSIa WIJrYGyoNYYtKZNqBXS2NFXsKXAiLM4LCaRpABHvBTIhYyOjBCFwXHAtub4CGAIcGFAkOAH9ZBIhPMRp MQArFKilAKLbDWC9PtnvFKFqAWImKE1JTaYaYWJfDQj6GSOwLABlLOQbbm3UGBRfHKSlWORcCjJzXIQy AJKmNMmuEFVrGVJzXQEyXYIkLUGdMY0VXhXpXECmVh O7NYghNJKcZOPvsr5EHOEgJQCfPNZgPhJySFBhFIWtCJcgVMSlITB9XdHzMDHxEORoHL3FIxPpWNYdNc t7HMvpWRQcNJQjur3PJEAqKGFwGrq2GYKxOPXbYTEhMTmxEFPcRQA6TpT6PRMfNOWxLA4TFcZyNFGkKx o4WUPgCJTgSHPmsq2YKQBrCVWnHAN6JHEjQRYzULQt HAfdQIBiFEIsMRV9XBWfGDAjSG2CApIbUYYsXrCmZHPwYKTlZKXrkw7QLTRlNSVqQZO8LSEuTXIhMJYx BTpcMQQzZXBqEFr9BYZeGKVjSE0LTaYuQGYsQFCwRSyiKWXvCGAamq1VYKSpTSJ6DkOkVBVrPZWxTDHq YQnrNMAyISTgIiJ8WVAdGZUoJD6KNfLbNDPlPHR3TB WlVUUtWOBqhl3UBRAcYAU9Tiy4HGFlOQLeXSKcEPhaQZLdIBDgBLQ3YVAyRNFlOA3SAdTrXCPpUCEeHJ SuXBGlYWKpii7YYFUyJRR1IWT3XGHpFAYkMYEaKYfqBIVwGST4GfB5GAWrVPAaDS6ERtKvMZWpSHV3OT QlPHGxQRAkld9MLWUbFUZ2LLu2LqPeIPIvXABzLBzh FBQiYKV6KjV4IADqNJNbYX4WPfIuNECdPYm0NSNsZAZqFLDlpk6MXMIeIPO5OgedIcGrBRWpHCXsBDn5 trDweRIiBOo9YU7XN4PleuOvQUWXTe3So256QPDnSAXtQo6RG5fkOn9iJKYuRGTFYl1WOMr5CWLkUNNu LtKnKZq9WLW9F5GpSzIhUKSyVYW5ZKA6EhB+IDxlMm XeQPZlBcO2VLf8IckiTZMvZHQpDaFcVZN6OBb6QU5rANCVTa9+OYihrTDnqJluVXCUOkF9HOwgJElsLR VPRg0K ID Date Data Source [id number] 01/20/2021 07:50:37 AM EDT [facility] Name Value Range Interpretation Code Description Data Belinda rce(s) Supporting Document(s) Progress Note [facility] VGACIi2kEpUDRyCi07/PCRdnVDHfd7RrAPvmUEp0DGnoLIGjZ5RkMWB7wN3bMEP6RExFFaJdVsZzQQYl lbm TkBxqXSdSuVTFfQuiECvLxUMhbXfuahQUxJN8RuLI7MJMsO33cKMVyJVOpV8SpZZY7MrS+Gi3OVJEnpL BvNJ4JYmrT6Behm4aXNk0joO/QWTCL9nRV0+KOSNRvqHeuvBQ7kG8dq0Q0Kq8UGqwG7VL9NrBjS2/h8S pRl63aeywCBU8b+x9k1iJwamax//4MQScRJEW7V/3W U5yM5+JAygLJXVJqtc9eHqO6CJw+2oaRNP4Q+/nUc2nv0KfVWlGigcwWw2dxXcKJLBbNUmpms/jzIpzN HeQxnWVQvzX4R/uMp3aNFKyAAv7n//ZOQg9IJrbdp58MUIWnIxQ+SA6XZlDqNEkA8PigXSxnr0E24cjI TxJMh66XS5a6XZehQlZOegdB8rDzg6uXEIG2vTplEh DXPnwbrqkX43GQTCPOvF+Ad7jcX0ikH8iNGjXqJb5timW2tlewmp6T9nsZNM2DCv8MUVlLjiN2Ibd6Ve 8Dd2DaNtoMUx8w3WOMqgazQ3FzS1aUDp1Cq9NHo4pPQYTNp+CAk6cF9W3cPA3LM5gomW6Hg/N8qnlj95 /hqpKklBKQZMOkHWlC65ZtGvArvQcR9apC7NLaFpVs yEug1xZhVh2zudUDPkHFZBFA6yubV8I/[place]+GxwkLZ0oxEIRJLQDhhPQpNUwg+WgECWZgsGkoFyvpEII [file] ID Date Data Source [id number] 01/17/2021 05:06:14 PM EDT [facility] Name Value Range Interpretation Code Description Data Belinda rce(s) Supporting Document(s) Discharge Summary [facility] WPYLFj1jCxCNKgLy39/RBPzaFQYsn6MvGNniDHn1IXasHMSkX6WtYRM7cM2cAKJ5OHyQQxDaPqJfEKHf lbm [file] 7hU+K70l3vGoOY8ekH9XreYz8Tgsc08spDo7vpu/TCLs/fP2akhjDYc8SWZs4Uq/5wGDP/J++ShQzT 91u5IU4GRTictt1aLZn27C4OImvb8Q88hjMUlewXjpSvG3PhSoFYYtHcfsttQYd54nehBDROzdeUhihO 4fO5MAUH9ZddmVSpKeAjcrF2/a2ezMG1gAy7Ew2914 x7bAt+mao6GEYvhmgnJB3vRSKrwzqOph14HqHfqbxrouUnwTXBfJ5tidtH7m4jBm4rKCMniidFZEvZhT nRJ4YqblKmMxmiUbKRFrlMbMMFaPxIER6KyGjw9KjlTyIQgvEc+TRbln9+/ugr2DxU26kJSiTKUijnSF Q6U2gl3+ahjDXn7ODudxXvDeqY1a1bxBbFXEt7+maria guadalupe [file] ICAgICAgICAgICAgICAgICAgICAgICAgICAgICAgIC AgICAgICAgICAgICAgICAgICAgICAgICAgICAgICAgICAgICAgDQogICAgICAgICAgICAgICAgICAgIC AgICAgICAgICAgICAgICAgICAgICAgICAgICAgICAgICAgICAgICAgICAgICAgICAgICAgICAgICAgIC AgICAgICAgICAgICAgICAgICAgDQogICAgICAgICAg ICAgICAgICAgICAgICAgICAgICAgICAgICAgICAgICAgICAgICAgICAgICAgICAgICAgICAgICAgICAg ICAgICAgICAgICAgICAgICAgICAgICAgICAgICAgDQogICAgICAgICAgICAgICAgICAgICAgICAgICAg ICAgICAgICAgICAgICAgICAgICAgICAgICAgICAgIC AgICAgICAgICAgICAgICAgICAgICAgICAgICAgICAgICAgICAgICAgDQogICAgICAgICAgICAgICAgIC AgICAgICAgICAgICAgICAgICAgICAgICAgICAgICAgICAgICAgICAgICAgICAgICAgICAgICAgICAgIC AgICAgICAgICAgICAgICAgICAgICAgDQogICAgICAg ICAgICAgICAgICAgICAgICAgICAgICAgICAgICAgICAgICAgICAgICAgICAgICAgICAgICAgICAgICAg ICAgICAgICAgICAgICAgICAgICAgICAgICAgICAgICAgDQogICAgICAgICAgICAgICAgICAgICAgICAg ICAgICAgICAgICAgICAgICAgICAgICAgICAgICAgIC AgICAgICAgICAgICAgICAgICAgICAgICAgICAgICAgICAgICAgICAgICAgDQogICAgICAgICAgICAgIC AgICAgICAgICAgICAgICAgICAgICAgICAgICAgICAgICAgICAgICAgICAgICAgICAgICAgICAgICAgIC AgICAgICAgICAgICAgICAgICAgICAgICAgDQogICAg ICAgICAgICAgICAgICAgICAgICAgICAgICAgICAgICAgICAgICAgICAgICAgICAgICAgICAgICAgICAg ICAgICAgICAgICAgICAgICAgICAgICAgICAgICAgICAgICAgDQogICAgICAgICAgICAgICAgICAgICAg ICAgICAgICAgICAgICAgICAgICAgICAgICAgICAgIC OaWOSdLOKwQKGqAYDxNFSzFGVoYNVjCNBwTIAkPIVzPUKvHAIgVUQkPWSnWAOfVDc9J2mqQIFvPZWwXY 3yLSg6Ht3+DHoGJvFuFOB7xcLklP1JIP8nl4PdOBlyFRDtb5OcVVi2CE2BVVJiANywWQ4JVMdahi7XHB AzCXSmzBOXp6nnSvSfTFU8CWZcWkszGC6ZNIRsR3cv maAzTVLbRGGLLPipHQNTFXcjMJOSIAEvYFKtWyAdGnUtFWNkWUPjIAAPUYF2FSLyIrOuPBPzTKRwBR1H SXNuH278meIfTT7OTi9QLwJbJR2xpv4QTjwmLRIcDkkKHio4ESvyFB4PyQLdkKU3VQFoDOWCHbVpN7dm p3TaNUVcNAPVXNndNA4Ui1PmpQWxERq+Ij8YBL2ok2 GhJAn2BZVnOR1hin3OHYzPKxYrL5PooBboQIYsx2PoWYJfHDCTlT2bTHB8FIQ8QYCvlMRnEEImkZqwFO BNMPIvkUN3HsYzYaCpJbNvUKQ0NxVaVC2oTDtzEC8DCCI3XHiyUDNtRJZdK5mULbTgCQU9AmOatGlfEQ 5XJpSzU8UlthYnsUGqJVGxJZHAIa2+DQplbmRvYmoN HgApWSVmz5XdCSj5HM2OJEMpICelIK4RFYAtvH7xCGarNQ9ZBhVxJzVtVPKJXhMfD49xrVBdSUy5V2Dc YmVkZGVkRmlsZXMgPDwvTmFtZXMgWyBdDQogID4+ID4+NLuwXQ6QBIkxusPgLGJoMy0AKPSwOQQgFA9d NRDsFERkD2X4vRaaWJAPTuDdG8ctcytnLR4cDQMxY7 11vRmjruJlNFB8UFNrEs9CRDGfMRY3DSAnkJGoLijuDWJUFEhlFT8UvRQiQHV4wV4rAOuiQHTrIWIyZ9 vFEaCfnVzqXA93rPqmgnYbyVHoMUv+Ue1LMW5du3YyXBl1rtDpVPlaUHZzAQsgXQRzDSJoXPHiUEV4JC S0FFVPAhJxQFBuDXFzYMkyCGBgEAIaqs4KCNFtWSH4 YLfbDBOrHRWjFZRkBQmqBMRgMVAoEbWnELJmJHXsJA8DSeHqKZGvNOIpWMzgFRMuGCYjbo5OPNIdSXPi RHI5DtVdXUXiALKuFYnaRUQeUEP3CNbaXLFbQCTaVX4ZIuBnWBKjTWp1CXFzCOQvECEwvv3IUIZyAJPb PRr0JrCwTQFlZCFbQRmtGZHaZVW0GtR6ZHFzQIHaPA 7NXsEyKXScFWO4QoxbFAGkGYIusz5WRLSiPTKzFzh1EbEpVNFeFQOwXVhdVPOsWSX9PDc0AWXvRVIaHC 7YZcHkNGBzLuTiWPMcZCHlTCEjgy9EJREjBFAwAdGyXKAtOUZqKKUwXAhmWXRjLUB9VTFqKMTdCNArBE 0JKzNeHNOcHaVnCXvhKHEuXXAwwg1KRXFmERRcIKS1 FIEmCMOdULDiBArrUVDgXUH0ISf5FQRjHDMhKT6RFfPjVAGaEdh0ZfksYLYsSHMcda3HBIFhBRDxUXtq GnYjCHAeGJUnZGcnNFCbJCCpAgdfZABdPDGzJC2CAlVkYNYkJnA5JQMvBNKpWUUxyt3ZGRSwCXYjAUN0 EgYbFGSaZOBdTVvxAWOhUJKaGITpOMSgGERiOT6DJv RjAVCcHsPcAxLhJOApVIMfjh1UAGKbLIXtPkLeAbBdGNUzDDLeOYxqSVIdTZXgZuuoXEBaEUMvTE2BGg IqBUWqShP9YujzCRTzZBPnne2PIYXsHDWoCiz9ReTfXFKeNJFkYEouWEHlGEQ6WcQmMBCtGFDcNF7OFk IcTAIwThB8RfFbSDNtDHFfdo0RSIZxZGPdREAbCkSh IHRlBGLoKIwyEMLzQWS4GRmeCKIiTPZxII4LGwDzALUpVMBhIHQiFTEwTMAmqp2MZVQrTMD2XBHlOdYq WOIlWYNiZFnrSEDdMGQkLkWkHUKmEENbGR7QIpKeBFCoIFK7NPxaHRBoPVNrmo1LRHPyYNZ0IJJsInDy ZEFtRFMxRFpwMTNlXHOaJCM9QEGdLLVrQP9RBkYdUH DhWSY1OtcxBXSrJVCzqt4ASDCgCGF8IhTbFbWiAZGaFKJrLSn9cfXrmPBeXKf4WY0JL5QlcdYtOXEDIk 1Eh893SKQbZBXgEs3OJ4mzWq2xIAGmMWISHf4VJUp8RMNtB8H8CgJuLCW7UFCrMxzbMKGqCBS5KqHmDZ Q2OGU+RHxmAYQuSWr4GQDfHRrsD3B5KZO9IOY0DBby RrY2DXE9IM2dMFMUEj8+NLabzRCbsYcsEXQTCcFqNawoQKpxHTSBZp9A ID Date Data Source [id number] 01/17/2021 09:26:35 AM EDT [facility] Name Value Range Interpretation Code Description Data Belinda rce(s) Supporting Document(s) Consultation [facility] [id number]h lbm [file] [id number] ID Date Data Source [id number] 01/17/2021 04:06:10 AM EDT [facility] Name Value Range Interpretation Code Description Data Belinda rce(s) Supporting Document(s) Leukocytes [#/volume] in Blood by Automated count 6.5 10*3/uL 4-10 [facility] Erythrocytes [#/volume] in Blood by Automated count 3.07 10*6/uL 4.6- 6.1 L [facility] Hemoglobin [Mass/volume] in Blood 8.8 g/dL 13.5-18 L [facility] Hematocrit [Volume Fraction] of Blood by Automated count 27.2 % 4 1-53 L [facility] Erythrocyte mean corpuscular volume [Entitic volume] by Auto mated count 88.6 fL 80-96 [facility] Erythrocyte mean corpuscular hemoglobin [Entitic mass] by Automated count 28.8 pg 27-33 [facility] Erythrocyte mean corpuscular hemoglobin concentration [Mass/volume] by Automated count 32.5 g/dL 32.0-36.0 [facility] Erythrocyte distribution width [Ratio] by Automated count 15.6 % 11.5-14.5 H [facility] Platelets [#/volume] in Blood by Automated count 395 10*3/uL 150-400 [facility] Differential cell count method - Blood [facility] Neutrophils/100 leukocytes in Blood by Automated count 77 % [facility] Lymphocytes/100 leukocytes in Blood by Automated count 15 % [facility] Monocytes/100 leukocytes in Blood by Automated count 6 % [facility] Eosinophils/100 leukocytes in Blood by Automated count 1 % [facility] Basophils/100 leukocytes in Blood by Automated count 1 % [facility] Neutrophils [#/volume] in Blood by Automated count 5.03 10*3/uL 1.8-7 .0 [facility] Lymphocytes [#/volume] in Blood by Automated count 0.98 10*3/uL 1.2-4 .0 L [facility] Monocytes [#/volume] in Blood by Automated count 0.37 10*3/uL 0-0.8 [facility] Eosinophils [#/volume] in Blood by Automated count 0.07 10*3/uL 0-0.5 [facility] Basophils [#/volume] in Blood by Automated count 0.03 10*3/uL 0-0.2 [facility] Nucleated erythrocytes/100 leukocytes [Ratio] in Blood by Automated count 0 /100{WBCs} 0-0 [facility] ID Date Data Source [id number] 01/17/2021 04:23:35 AM [facility] Name Value Range Interpretation Code Description Data Belinda rce(s) Supporting Document(s) Bicarbonate [Moles/volume] in Serum 21 mmol/L 22-29 L [facility] Chloride [Moles/volume] in Serum or Plasma 110 mmol/L 98-107 H [facility] Creatinine [Mass/volume] in Serum or Plasma 1.16 mg/dL 0.70-1.20 [facility] Glucose [Mass/volume] in Serum or Plasma 101 mg/dL 70-140 [facility] Potassium [Moles/volume] in Serum or Plasma 3.6 mmol/L 3.4-5.1 [facility] Sodium [Moles/volume] in Serum or Plasma 143 mmol/L 136-145 [facility] Urea nitrogen [Mass/volume] in Serum or Plasma 7 mg/dL 8-23 L [facility] Anion gap 3 in Serum or Plasma 12 mmol/L 8-15 [facility] Osmolality of Serum or Plasma by calculation 294 mosm/kg 275-300 [facility] Creatinine/Urea nitrogen [Mass Ratio] in Serum or Plasma 6 [facility] Calcium [Mass/volume] in Serum or Plasma 9.3 mg/dL 8.6-10.0 [facility] Glomerular filtration rate/1.73 sq M pre dicted among non-blacks [Volume Rate/Area] in Serum or Plasma by Creatinine-based formula (MDRD) 67 mL/min/1.73m2 >60 [facility] Glomerular filtration rate/1.73 sq M pre dicted among blacks [Volume Rate/Area] in Serum or Plasma by Creatinine-based formula (MDRD) 77 mL/min/1.73m2 >60 [facility] ID Date Data Source [id number] 01/17/2021 04:23:35 AM [facility] Name Value Range Interpretation Code Description Data Belinda rce(s) Supporting Document(s) Magnesium [Mass/volume] in Serum or Plasma 1.5 mg/dL 1.6-2.6 [facility] ID Date Data Source [id number] 01/16/2021 03:50:36 AM [facility] Name Value Range Interpretation Code Description Data Belinda rce(s) Supporting Document(s) Leukocytes [#/volume] in Blood by Automated count 8.8 10*3/uL 4-10 [facility] Erythrocytes [#/volume] in Blood by Automated count 3.02 10*6/uL 4.6- 6.1 L [facility] Hemoglobin [Mass/volume] in Blood 9.0 g/dL 13.5-18 L [facility] Hematocrit [Volume Fraction] of Blood by Automated count 26.7 % 4 1-53 L [facility] Erythrocyte mean corpuscular volume [Entitic volume] by Auto mated count 88.3 fL 80-96 [facility] Erythrocyte mean corpuscular hemoglobin [Entitic mass] by Automated count 29.7 pg 27-33 [facility] Erythrocyte mean corpuscular hemoglobin concentration [Mass/volume] by Automated count 33.6 g/dL 32.0-36.0 [facility] Erythrocyte distribution width [Ratio] by Automated count 16.3 % 11.5-14.5 H [facility] Platelets [#/volume] in Blood by Automated count 424 10*3/uL 150-400 H [facility] Differential cell count method - Blood [facility] Neutrophils/100 leukocytes in Blood by Automated count 79 % [facility] Lymphocytes/100 leukocytes in Blood by Automated count 14 % [facility] Monocytes/100 leukocytes in Blood by Automated count 6 % [facility] Eosinophils/100 leukocytes in Blood by Automated count 1 % [facility] Basophils/100 leukocytes in Blood by Automated count 0 % [facility] Neutrophils [#/volume] in Blood by Automated count 6.98 10*3/uL 1.8-7 .0 [facility] Lymphocytes [#/volume] in Blood by Automated count 1.22 10*3/uL 1.2-4 .0 [facility] Monocytes [#/volume] in Blood by Automated count 0.48 10*3/uL 0-0.8 [facility] Eosinophils [#/volume] in Blood by Automated count 0.05 10*3/uL 0-0.5 [facility] Basophils [#/volume] in Blood by Automated count 0.03 10*3/uL 0-0.2 [facility] Nucleated erythrocytes/100 leukocytes [Ratio] in Blood by Automated count 0 /100{WBCs} 0-0 [facility] ID Date Data Source [id number] 01/16/2021 03:56:45 AM EDT [facility] Name Value Range Interpretation Code Description Data Belinda rce(s) Supporting Document(s) Bicarbonate [Moles/volume] in Serum 20 mmol/L 22-29 L [facility] Chloride [Moles/volume] in Serum or Plasma 107 mmol/L 98-107 [facility] Creatinine [Mass/volume] in Serum or Plasma 1.10 mg/dL 0.70-1.20 [facility] Glucose [Mass/volume] in Serum or Plasma 104 mg/dL 70-140 [facility] Potassium [Moles/volume] in Serum or Plasma 4.3 mmol/L 3.4-5.1 [facility] Sodium [Moles/volume] in Serum or Plasma 140 mmol/L 136-145 [facility] Urea nitrogen [Mass/volume] in Serum or Plasma 8 mg/dL 8-23 [facility] Anion gap 3 in Serum or Plasma 13 mmol/L 8-15 [facility] Osmolality of Serum or Plasma by calculation 289 mosm/kg 275-300 [facility] Creatinine/Urea nitrogen [Mass Ratio] in Serum or Plasma 7 [facility] Calcium [Mass/volume] in Serum or Plasma 9.6 mg/dL 8.6-10.0 [facility] Glomerular filtration rate/1.73 sq M pre dicted among non-blacks [Volume Rate/Area] in Serum or Plasma by Creatinine-based formula (MDRD) 71 mL/min/1.73m2 >60 [facility] Glomerular filtration rate/1.73 sq M pre dicted among blacks [Volume Rate/Area] in Serum or Plasma by Creatinine-based formula (MDRD) 82 mL/min/1.73m2 >60 [facility] ID Date Data Source [id number] 01/16/2021 03:56:45 AM [facility] Name Value Range Interpretation Code Description Data Belinda rce(s) Supporting Document(s) Magnesium [Mass/volume] in Serum or Plasma 1.8 mg/dL 1.6-2.6 [facility] ID Date Data Source [id number] 01/15/2021 07:55:44 PM [facility] Value Range Interpretation Code Description Data Belinda rce(s) Supporting Document(s) Leukocytes [#/volume] in Blood by Automated count 11.5 10*3/uL 4-10 H [facility] Erythrocytes [#/volume] in Blood by Automated count 3.31 10*6/uL 4.6- 6.1 L [facility] Hemoglobin [Mass/volume] in Blood 9.7 g/dL 13.5-18 L [facility] Hematocrit [Volume Fraction] of Blood by Automated count 29.4 % 4 1-53 L [facility] Erythrocyte mean corpuscular volume [Entitic volume] by Auto mated count 88.9 fL 80-96 [facility] Erythrocyte mean corpuscular hemoglobin [Entitic mass] by Automated count 29.2 pg 27-33 [facility] Erythrocyte mean corpuscular hemoglobin concentration [Mass/volume] by Automated count 32.9 g/dL 32.0-36.0 [facility] Erythrocyte distribution width [Ratio] by Automated count 15.8 % 11.5-14.5 [facility] Platelets [#/volume] in Blood by Automated count 472 10*3/uL 150-400 [facility] ID Date Data Source [id number] 01/15/2021 01:31:56 PM [facility] Name Value Range Interpretation Code Description Data Belinda rce(s) Supporting Document(s) Calcium.ionized [Moles/volume] in Arterial blood 1.46 mmol/L 1.13-1.3 2 [facility] ID Date Data Source [id number] 01/15/2021 01:48:30 PM [facility] Name Value Range Interpretation Code Description Data Belinda rce(s) Supporting Document(s) Albumin [Mass/volume] in Serum or Plasma by Bromocresol green (BCG) dye binding method 2.6 g/dL 3.5-5.2 [facility] ID Date Data Source [id number] 01/15/2021 01:48:30 PM [facility] Name Value Range Interpretation Code Description Data Belinda rce(s) Supporting Document(s) Phosphate [Mass/volume] in Serum or Plasma 2.1 mg/dL 2.5-4.5 [facility] ID Date Data Source [id number] 01/18/2021 04:15:00 PM [facility] CYTOPATHOLOGY REPORTName: KIERSTEN LEDEZMAMRN: [id number] Number: [id number] Date: 01/15/2021 12:45Received Date: 01/17/2021 11:31Physician(s): VIN TORRES MD POIESZ, BERNARD J, MD Specimen(s) ReceivedA: URINE, CATHETERIZEDClinical History:Evaluate for malignancy. History of malignancy per requisition. [id number]. DiagnosisURINE, CATHETERIZED: NEGATIVE FOR HIGH-GRADE UROTHELIAL CARCINOMAComment/pf/calReviewing [employer]: BARBIE Brown (ASCP)Danae Christian MDElectronically Signed By Emeli Jones M.D. 01/18/2021 16:15:46The attending pathologist named above attests that he/she has personallyreviewed the relevant preparation(s) for the specimen(s) and rendered thefinal diagnosis. Microscopic DescriptionThe specimen is composed of few benign urothelial cells, abundantneutrophils, debris and blood./pf Gross Rrslezisgbh50 ml clear pale-yellow fluid received: 1 Thin-layer Pap stained slideprepared by filter preparation. This report may include one or more immunohistochemical stain results thatuse analyte specific reagents. All positive and negative controls havebeen reviewed by the attending pathologist and are satisfactory. The testswere developed and their performance ch aracteristics determined by [facility] Pathololgy department. They have not been cleared or approved by [place] Food and Drug Administration. The FDA has determined that suchclearance or approval is not necessary. Name Value Range Interpretation Code Description Data [facility] rce(s) Supporting Document(s) ID Date Data Source [id number] 01/15/2021 12:16:32 PM T [facility] Name Value Range Interpretation Code Description Data [facility](s) Supporting Document(s) Consultation [facility] [id number]/JROsaYROey7PdGExdTQn7CRioHQFkG7NnLVM8eP5uBOS5IXaZRcQoKvEnHRX6 [facility] [file] [id number]lGY0FWh4DFqN4PKU9mGVlKi2QDOB0ZffNLyZuZP6VXNv= ID Date Data Source [id number] 01/17/2021 07:02:21 AM EDT [facility] Name Value Range Interpretation Code Description Data Belinda rce(s) Supporting Document(s) ABO and Rh group [Type] in [facility] Blood group antibody screen [Presence] in Serum or Plasma [facility] Performed at [facility], Roland Velazquez [facility], [id number] [place] [address] ID Date Data Source [id number] 01/15/2021 12:52:10 PM EDT [facility] Value Range Interpretation Code Description Data Belinda rce(s) Supporting Document(s) ABO and Rh group [Type] in [facility] Blood bank comment [facility] ID Date Data Source [id number] 01/15/2021 12:50:29 AM EDT [facility] Value Range Interpretation Code Description Data Belinda rce(s) Supporting Document(s) Leukocytes [#/volume] in Blood by Automated count 7.5 10*3/uL 4-10 [facility] Erythrocytes [#/volume] in Blood by Automated count 2.41 10*6/uL 4.6- 6.1 L [facility] Hemoglobin [Mass/volume] in Blood 6.9 g/dL 13.5-18 L [facility] Hematocrit [Volume Fraction] of Blood by Automated count 21.2 % 4 1-53 L [facility] Erythrocyte mean corpuscular volume [Entitic volume] by Auto mated count 88.0 fL 80-96 [facility] Erythrocyte mean corpuscular hemoglobin [Entitic mass] by Automated count 28.8 pg 27-33 [facility] Erythrocyte mean corpuscular hemoglobin concentration [Mass/volume] by Automated count 32.8 g/dL 32.0-36.0 [facility] Erythrocyte distribution width [Ratio] by Automated count 16.4 % 11.5-14.5 H [facility] Platelets [#/volume] in Blood by Automated count 380 10*3/uL 150-400 [facility] Differential cell count method - Blood [facility] Neutrophils/100 leukocytes in Blood by Automated count 83 % [facility] Lymphocytes/100 leukocytes in Blood by Automated count 11 % [facility] Monocytes/100 leukocytes in Blood by Automated count 6 % [facility] Eosinophils/100 leukocytes in Blood by Automated count 0 % [facility] Basophils/100 leukocytes in Blood by Automated count 0 % [facility] Neutrophils [#/volume] in Blood by Automated count 6.22 10*3/uL 1.8-7 .0 [facility] Lymphocytes [#/volume] in Blood by Automated count 0.80 10*3/uL 1.2-4 .0 L [facility] Monocytes [#/volume] in Blood by Automated count 0.45 10*3/uL 0-0.8 [facility] Eosinophils [#/volume] in Blood by Automated count 0.02 10*3/uL 0-0.5 [facility] Basophils [#/volume] in Blood by Automated count 0.03 10*3/uL 0-0.2 [facility] Nucleated erythrocytes/100 leukocytes [Ratio] in Blood by Automated count 0 /100{WBCs} 0-0 [facility] ID Date Data Source [id number] 01/15/2021 01:05:17 AM EDT [facility] Name Value Range Interpretation Code Description Data Belinda rce(s) Supporting Document(s) Bicarbonate [Moles/volume] in Serum 21 mmol/L 22-29 L [facility] Chloride [Moles/volume] in Serum or Plasma 106 mmol/L 98-107 [facility] Creatinine [Mass/volume] in Serum or Plasma 0.97 mg/dL 0.70-1.20 [facility] Glucose [Mass/volume] in Serum or Plasma 114 mg/dL 70-140 [facility] Potassium [Moles/volume] in Serum or Plasma 3.3 mmol/L 3.4-5.1 L [facility] Sodium [Moles/volume] in Serum or Plasma 138 mmol/L 136-145 [facility] Urea nitrogen [Mass/volume] in Serum or Plasma 8 mg/dL 8-23 [facility] Anion gap 3 in Serum or Plasma 11 mmol/L 8-15 [facility] Osmolality of Serum or Plasma by calculation 285 mosm/kg 275-300 [facility] Creatinine/Urea nitrogen [Mass Ratio] in Serum or Plasma 8 [facility] Calcium [Mass/volume] in Serum or Plasma 10.0 mg/dL 8.6-10.0 [facility] Glomerular filtration rate/1.73 sq M pre dicted among non-blacks [Volume Rate/Area] in Serum or Plasma by Creatinine-based formula (MDRD) 88 mL/min/1.73m2 >60 [facility] Glomerular filtration rate/1.73 sq M pre dicted among blacks [Volume Rate/Area] in Serum or Plasma by Creatinine-based formula (MDRD) >60 [facility] ID Date Data Source [id number] 01/19/2021 10:45:08 AM EDT [facility] Service Cmnt XXX-Imp : L WRISTMicroorgan ism XXX Cult : No growth 5 days Name Value Range Interpretation Code Description Data Belinda rce(s) Supporting Document(s) ID Date Data Source [id number] 01/14/2021 03:34:40 PM EDT [facility] CT ABDOMEN PELVIS WITHOUT CONTRAST [id number] FINAL RESULTInterpreted by:CAROLYN WileyROCEDURE INFORMATION: Exam: CT [...] rce(s) Supporting Document(s) ID Date Data Source [id number] 01/14/2021 01:33:03 PM EDT [facility] Name Value Range Interpretation Code Description Data Belinda rce(s) Supporting Document(s) Progress Note [facility] QCZBRz4cLkHDBsVf14/GOApyGVPoi8BoTYsgZWa5DQapXRFiL4PdLMK8gM3yQOH9VMuYYqEsWyLqHHL1 m [file] DQo+Gs8Ts6NbcoR5ibBrIJeqJRW9MB4MTNTOO5MXRp== ID Date Data Source [id number] 01/19/2021 10:45:08 AM EDT [facility] Service Cmnt XXX-Imp : RACMicroorganism XXX Cult : No growth 5 days Name Value Range Interpretation Code Description Data Belinda rce(s) Supporting Document(s) ID Date Data Source [id number] 01/22/2021 03:06:13 PM EDT [facility] Name Value Range Interpretation Code Description Data Belinda rce(s) Supporting Document(s) Pyridoxine [Mass/volume] in Serum or Plasma 3.0 ug/L 5.3-46.7 L [facility] (NOTE)Verified by repeat analysisThi s test was developed and its performance characteristicsdetermined by [employer]. 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/9rWzBtfMLTpvZVGHDVz9rANfdIyhp6Zd3gYzvrm7MoavndpEJNKbW3Y0rQEOaYpVoSB6hzKMUfEYO [file] ICAgICAgICAgICAgICAgICAgICAgICAgICAgICAgICAgICAgICAgICAgICAgICAgICAgICAgICAgICAg ICAgICAgICAgICAgICAgICAgICAgICAgICAgICAgICAgICAgICANCiAgICAgICAgICAgICAgICAgICAg ICAgICAgICAgICAgICAgICAgICAgICAgICAgICAgIC AgICAgICAgICAgICAgICAgICAgICAgICAgICAgICAgICAgICAgICAgICAgICAgICANCiAgICAgICAgIC AgICAgICAgICAgICAgICAgICAgICAgICAgICAgICAgICAgICAgICAgICAgICAgICAgICAgICAgICAgIC AgICAgICAgICAgICAgICAgICAgICAgICAgICAgICAN CiAgICAgICAgICAgICAgICAgICAgICAgICAgICAgICAgICAgICAgICAgICAgICAgICAgICAgICAgICAg ICAgICAgICAgICAgICAgICAgICAgICAgICAgICAgICAgICAgICAgICANCiAgICAgICAgICAgICAgICAg ICAgICAgICAgICAgICAgICAgICAgICAgICAgICAgIC AgICAgICAgICAgICAgICAgICAgICAgICAgICAgICAgICAgICAgICAgICAgICAgICAgICANCiAgICAgIC AgICAgICAgICAgICAgICAgICAgICAgICAgICAgICAgICAgICAgICAgICAgICAgICAgICAgICAgICAgIC AgICAgICAgICAgICAgICAgICAgICAgICAgICAgICAg ICANCiAgICAgICAgICAgICAgICAgICAgICAgICAgICAgICAgICAgICAgICAgICAgICAgICAgICAgICAg ICAgICAgICAgICAgICAgICAgICAgICAgICAgICAgICAgICAgICAgICAgICANCiAgICAgICAgICAgICAg ICAgICAgICAgICAgICAgICAgICAgICAgICAgICAgIC AgICAgICAgICAgICAgICAgICAgICAgICAgICAgICAgICAgICAgICAgICAgICAgICAgICAgICANCiAgIC AgICAgICAgICAgICAgICAgICAgICAgICAgICAgICAgICAgICAgICAgICAgICAgICAgICAgICAgICAgIC AgICAgICAgICAgICAgICAgICAgICAgICAgICAgICAg ICAgICANCiAgICAgICAgICAgICAgICAgICAgICAgICAgICAgICAgICAgICAgICAgICAgICAgICAgICAg ICAgICAgICAgICAgICAgICAgICAgICAgICAgICAgICAgICAgICAgICAgICAgICANCjw/iXZnJ8hnjZHf rdK4Z5eiYy7YZw5GGW0ub5GuDEHrUXknykDwKbrPOw EgLNTkWyqOEjl9DNzfJS9TcQLfF4BiJ2NpWEzgGA3NDTJqXXRrxNOwVUWtTFAlRwY8YZBlPXqdNV8ZrN DiIYfuDBSqFCHmNnZzSSBkDBAaXZTtDTMzOUBQGP4ZHsJvJ5GvcR78TZBPDg4+DQplbmRvYmoNCjMxID Tfb7XlWEg9QC3TTDPaXkmpd5VzLhEjRNVQWQexDD6A PBK0VKEbHIHnGr7AHBZzO330auWpLN9EYz7JZwLzKI9raq1GWmJuIVAvHvsXLqk5AGutGY8HjJOkVDiT b55eoGx9geWhmYJCVGHdjoC5RCNyQw9xJYW6KKYXQWKpfBW2IlW3GmEkRpGzJLy1XFMlZJ1pSAxyBV6X UYJ6SJwcHAMzYNPfK4lCJqQwLWI8EmLtzUssSH2AZq UkC0CfizUunOUuONLaTHJDAy7+UOgqmdMqTgyKCcDnOFFdu9RrBZl4HA1UWZJiDXzlXN9PREEcnT4rTS svCV1RAdVyOBAoUFEZQcVkI85ljAOlTTd2G0JxWgSiHVTnPhvxOTEgPFknAqOjACUkBmRoMMujXD2+ID 4+VMdnTI0EOGfhgdZdEICkBy3GWBHeZWYbUG7xSIKq NTFyT1D0pNpqSABZJfGtD1fsdorbFH3yEHRmJ515oLybzdTiIDMpOKIaMu9QQNHbFPA7YWPxwKZrRbLq CZIOBQroBO6TaUCgOIU4sF3dXOjvFXQwUEEsW6aXDcPtzLtpUH58qIpldzDskBDoSMd+Ho5XLT0xl0Gn JHn1tjIxLJwtRRR1WXvfGHBmNUCnWIYfPQT7CDM0BN QZIsMvKUPeAKYhWOotCMWdBVMpcp2YHYPeSVEuMnLdTGIeKZGkJOYrNZheMDPqDHH6OmrxJLIxIMDtII 2HWjFaOHNiIIZeRSrmRSCfTJWbtu7QRMFuJZLmZUN0MECwOCMoSXVjGTxmHTQpMSJ3AyQlBWNzOJYwUS 2HQkHnKTVzHPm9ULPdDPKxIJKafl2IOWVqVGSwUDIg EtEgTNZfOGSuOEutIENsBXFoLlX0KGCwWXMkJF1HNsLlUKPcVPS2BiIgXQHxKEZhsn9HMQGfBPKkEDlv ZaDoJYYwVFUyVHhgWWZoHBO4RHYqXCBnFSSsKL1EIbAzMGJcOQR2SKQsBQCcJGVsdf6KOTChUPNdHwS4 WVYxUITrOYHpIAykYXMpMYG8YhbdQURbUFPkQU5SVg WfKGAmJVugYZVrADDyVITslz2OLSIdXVEeGuD0GiZqRKFtRHQhYZwvALXdTTE9MnWpYPCgPRPuXF8OIm FiPTEwHXu9AHKjHPAlDZQxlt4REAZaGAAiQDd3AgJeDBPoZBWxMXnmWHHeCAO1JImpDXMmCRCfXW8RUr HuJMDvOYx4JOQoTDSyYQRxsn6ODIMyBGRaBVNtOxSp QZHoYFOzVWdiHWWyDBXgRjOoPXTeUNOxAV8ENhAaXTGrLgS5ZXGdMGJkEMYndn9UKHGyFYUyNnUgUmXj EWCiEOTtMWsuYVVuKERbMcDaQXVgHPPgVJ3YBuChPFMnEpU6UzVwHETmXTQfhk1QQYIfBGJmZwBjEkRk EZVdZAGaJBdoJQQiWTOtGPWhPEDoCZSpRL2VPaEmVT OwAsA3CHeaSGGtBBBjoz5TMCAlHJFsQSQ5ZEZqCJOhGXHpBMacLYGtTNZ6KfNyXVZoZUYyPI5LLgVqIU eeMGTEKsy7HSmbV2u7FJLoZE6AO6Wcr2MaAeHyRWHZTFfdGB6bvnPbFBWlEr1JK1eFUfgxM0UrIAFpLJ C9TfbhSKIdJPNiKHofSAQjGXYiGqz6US3dVKZ3WzCf SLS0EjY6YEG9XpH9CyVsWHX8VrWwELWxGym1IvZxMP1HMy9TOiI1KEU7sPLpRu0BGhG4YquGPoFlKF5C DQo= ID Date Data Source [id number] 01/14/2021 08:56:02 AM EDT [facility] IR NEPHROSTOMY INSERTION CHANGEFINAL RES [...] The needle was removed and a 6 Swedish coaxial dilator and sheath system was placed [...] rce(s) Supporting Document(s) ID Date Data Source [id number] 01/14/2021 09:45:47 AM [facility] Service Cmnt XXX-Imp : NoneGI Panel [...] rce(s) Supporting Document(s) ID Date Data Source [id number] 01/14/2021 05:46:37 AM EDT [facility] Name Value Range Interpretation Code Description Data Belinda rce(s) Supporting Document(s) Bicarbonate [Moles/volume] in Serum 20 mmol/L 22-29 L [facility] Chloride [Moles/volume] in Serum or Plasma 103 mmol/L 98-107 [facility] Creatinine [Mass/volume] in Serum or Plasma 1.15 mg/dL 0.70-1.20 [facility] Glucose [Mass/volume] in Serum or Plasma 116 mg/dL 70-140 [facility] Potassium [Moles/volume] in Serum or Plasma 3.4 mmol/L 3.4-5.1 [facility] Sodium [Moles/volume] in Serum or Plasma 136 mmol/L 136-145 [facility] Urea nitrogen [Mass/volume] in Serum or Plasma 10 mg/dL 8-23 [facility] Anion gap 3 in Serum or Plasma 12 mmol/L 8-15 [facility] Osmolality of Serum or Plasma by calculation 281 mosm/kg 275-300 [facility] Creatinine/Urea nitrogen [Mass Ratio] in Serum or Plasma 9 [facility] Calcium [Mass/volume] in Serum or Plasma 11.1 mg/dL 8.6-10.0 H [facility] Glomerular filtration rate/1.73 sq M pre dicted among non-blacks [Volume Rate/Area] in Serum or Plasma by Creatinine-based formula (MDRD) 67 mL/min/1.73m2 >60 [facility] Glomerular filtration rate/1.73 sq M pre dicted among blacks [Volume Rate/Area] in Serum or Plasma by Creatinine-based formula (MDRD) 78 mL/min/1.73m2 >60 [facility] ID Date Data Source [id number] 01/14/2021 06:34:47 AM EDT [facility] Name Value Range Interpretation Code Description Data Belinda rce(s) Supporting Document(s) Leukocytes [#/volume] in Blood by Automated count 11.4 10*3/uL 4-10 H [facility] Erythrocytes [#/volume] in Blood by Automated count 2.75 10*6/uL 4.6- 6.1 L [facility] Hemoglobin [Mass/volume] in Blood 7.8 g/dL 13.5-18 L [facility] Hematocrit [Volume Fraction] of Blood by Automated count 24.0 % 4 1-53 L [facility] Erythrocyte mean corpuscular volume [Entitic volume] by Auto mated count 87.6 fL 80-96 [facility] Erythrocyte mean corpuscular hemoglobin [Entitic mass] by Automated count 28.3 pg 27-33 [facility] Erythrocyte mean corpuscular hemoglobin concentration [Mass/volume] by Automated count 32.3 g/dL 32.0-36.0 [facility] Sample warmed to Obtain Results Erythrocyte distribution width [Ratio] by Automated count 16.5 % 11.5-14.5 H [facility] Platelets [#/volume] in Blood by Automated count 407 10*3/uL 150-400 H [facility] Differential cell count method - Blood [facility] Neutrophils/100 leukocytes in Blood by Automated count 88 % [facility] Lymphocytes/100 leukocytes in Blood by Automated count 8 % [facility] Monocytes/100 leukocytes in Blood by Automated count 4 % [facility] Eosinophils/100 leukocytes in Blood by Automated count 0 % [facility] Basophils/100 leukocytes in Blood by Automated count 0 % [facility] Neutrophils [#/volume] in Blood by Automated count 10.02 10*3/uL 1.8- 7.0 H [facility] Lymphocytes [#/volume] in Blood by Automated count 0.91 10*3/uL 1.2-4 .0 L [facility] Monocytes [#/volume] in Blood by Automated count 0.46 10*3/uL 0-0.8 [facility] Eosinophils [#/volume] in Blood by Automated count 0.01 10*3/uL 0-0.5 [facility] Basophils [#/volume] in Blood by Automated count 0.03 10*3/uL 0-0.2 [facility] Nucleated erythrocytes/100 leukocytes [Ratio] in Blood by Automated count 0 /100{WBCs} 0-0 [facility] ID Date Data Source [id number] 01/16/2021 10:54:50 AM [facility] Cmnt XXX-Imp : NoneMicroorganism XXX Cult : No growth 3 days Name Value Range Interpretation Code Description Data Belinda rce(s) Supporting Document(s) ID Date Data Source [id number] 01/14/2021 11:01:20 AM [facility] Cmnt XXX-Imp : NoneMicroorganism XXX Cult : Test Not Performed.Improper Tube/Specimen Type Name Value Range Interpretation Code Description Data Belinda rce(s) Supporting Document(s) ID Date Data Source [id number] 01/13/2021 03:47:21 PM [facility] Name Value Range Interpretation Code Description Data Belinda rce(s) Supporting Document(s) [facility] GGXTVm0kCaKKZyXm32/TYDuqSMNfu5KeWWfhNQo6PQxnRIPjH1GbYNH9pO5sQTV4EIvIZyWxIaGiZSV2 [facility] [file] ICAgICAgICAgICAgICAgICAgICAgICAgICAgICAgIC AgICAgICAgICAgICAgICAgICAgICAgICAgICAgICAgDQogICAgICAgICAgICAgICAgICAgICAgICAgIC AgICAgICAgICAgICAgICAgICAgICAgICAgICAgICAgICAgICAgICAgICAgICAgICAgICAgICAgICAgIC AgICAgICAgICAgICAgDQogICAgICAgICAgICAgICAg ICAgICAgICAgICAgICAgICAgICAgICAgICAgICAgICAgICAgICAgICAgICAgICAgICAgICAgICAgICAg ICAgICAgICAgICAgICAgICAgICAgICAgDQogICAgICAgICAgICAgICAgICAgICAgICAgICAgICAgICAg ICAgICAgICAgICAgICAgICAgICAgICAgICAgICAgIC AgICAgICAgICAgICAgICAgICAgICAgICAgICAgICAgICAgDQogICAgICAgICAgICAgICAgICAgICAgIC AgICAgICAgICAgICAgICAgICAgICAgICAgICAgICAgICAgICAgICAgICAgICAgICAgICAgICAgICAgIC AgICAgICAgICAgICAgICAgDQogICAgICAgICAgICAg ICAgICAgICAgICAgICAgICAgICAgICAgICAgICAgICAgICAgICAgICAgICAgICAgICAgICAgICAgICAg ICAgICAgICAgICAgICAgICAgICAgICAgICAgDQogICAgICAgICAgICAgICAgICAgICAgICAgICAgICAg ICAgICAgICAgICAgICAgICAgICAgICAgICAgICAgIC AgICAgICAgICAgICAgICAgICAgICAgICAgICAgICAgICAgICAgDQogICAgICAgICAgICAgICAgICAgIC AgICAgICAgICAgICAgICAgICAgICAgICAgICAgICAgICAgICAgICAgICAgICAgICAgICAgICAgICAgIC AgICAgICAgICAgICAgICAgICAgDQogICAgICAgICAg ICAgICAgICAgICAgICAgICAgICAgICAgICAgICAgICAgICAgICAgICAgICAgICAgICAgICAgICAgICAg ICAgICAgICAgICAgICAgICAgICAgICAgICAgICAgDQogICAgICAgICAgICAgICAgICAgICAgICAgICAg ICAgICAgICAgICAgICAgICAgICAgICAgICAgICAgIC PmFEUpHADaQHJhVLXvIMAoVWFmQABlYLInUXLtZSLzPDAlVHQpMXMqIOo8O5tdABOxHBOaFL7yVIo9As 8+PVcPAvEpYMP3wpMmvH6QJZ1pq1YiFLpyOIGkt0YlXCd3FU4NDTOjZZcdYY2RFCalfd0VFMJdLYTdnL IKz0fhWdFvCUR3QJVbNeunHR3OAXQiU5luqoRnQLBy QXRCSUvaTQIWZUvzEZOPUIRuDMXpEfGzZaSjHSMzCGSlECADMTO6FNWsWsQtDKBdXDCnStFuJBCZSBBw XINjSdJiMRtiEU1Vu9IgdAXbYA6TFd2REgMeXI8muu6QCZYpKXOcOolSYxh9ZOtbKR4PkRNuxAP0UjOg GNWNJqBcD3ycg6FgWVgxRUYHJPgtTR4Jg8ErzJCmOK o+Fm3SRY6zo4IiPBm4VvRnJP8skq9PTPmAFyVwW9WvlJsqLBTcpwU5sYHwWAE0GRZoiBbuItO2kAKATV uzndN3v5izLO4UELX7QQbmTJWsKpCyNKIdKVx4NgMAEOeERiCqT3Gvv3XfDzI8QLTrYxSmTMpnINFfLI vtSK82bJfbDY9UGDNsPTXkPW55AXW3QDLlKz8WHw6X EpHzFE1uri0VXJwyDMImVdjUGvw4USadQJ2HxPTcL8EwxXChc1qPTcOlF3DVNLL2TYRjCr1WEOCsNbCo KHKfBTroLI6gNMEqNMVNkRpcvdY7GM8SMT3gboQwXQ7ECxMlXq1oRg9SWfXoG2ThK4QfICBhGHUTKJsc QF0CCBocII1jSE9Lh9YIhMRbnI5bcz5ZMIWrOIEyLl wtoc0MHadeX0K5rWrxWHZfPFXlWTRAJJzhZQ8TGWGyMMB8YYT6IUKdPHBWUjStP70cSL7JE4Sdv93jNw J5RUDlQeQbRFzgGR45oXpoqwYwoRKrjXvsUC8FGj1+DQplbmRvYmoNCnhyZWYNCjAgNDkNCjAwMDAwMD EwCZDhDnX1GjLtCi4ORUYaYQTkMJFoPnDhCVLrIDNz OVgmDIHmYWTzNSr9IDThNQNwCR8HWxMiLGFvDAOoRvMmYYIkKPVtie3ASJFjIKQoNDI3HiNrNEQfTDTc CDrrZHBpKJN4UdZiRZBrXSXaIW3CJmBjARHdHQD2QnAgWAPkPYKmdj6BILNdFPSlWpFpLiBnNTStEJHo EGgtYYFuYXL3NTL5JBQhMEPkME6LWtPeGEReDUN9Di fzIAMgAHRppf6JGLHtJBRsPTQxXUNqNOFhVVBfZTafCCOiRVMdNZU0WBIvVWCwCW8IVoXrZGCpSMZ2Pp JwOZTiQUFipv2DHYDaSDJkNoN9DOTgJIPvYJSnCEcqDTFmXKD2Kzf8LGTzSQCqIX9JWuWbPDTyDYj7ZO LwHQLlQGAwoe8KIADpOBSmITPqIrHyDMWlMDFmSSqh URBjHPTzHYrqPEKrCCGhKK9TYgHgMABpKrNeQtbeOPEzYKFwcv8FUZRbJZSeHeK4NzJrWLLyDTXzJHce RIXcNJQ1FozkMHVfDWXpDB5PJrXoSZTuWbLcVeWpNKSsDQIbmo3PHAHzZKUuVXN1MAWqNPDvYNBbZQdj GGQaMKZpOnmwOOYqIZNvNC0NAzRxQLNmFsH6NVqvFO NbSTUoab7GPSMkWELqOnP0DiKcGXYxWLZiFAknNFIpUCHzWrW1XDBgFQHyTO5TJwWaFEEfGrM8DcxsDX KiCDPsaf6QULKyWSFgQZe2EbZpVJJwFKBjQXhfKHExJTA2TIb9AJPlKHQbQH9GFsPzPHOsXhRkClHoJZ XlYSTgue6MZUSxWHXqUyHdBDKfJLYyVUFyCQzbEKJv UHL4RgZ5EUPyQFIkKW4SLqTzOBEeAnZ1HaGuQHVvRPVilf0IPWKcUFAqGeT2MZAxADQeYPVwIIiwKORu OOP6AmdlPRYbXWHvWS2OMyRqAOBfCxi6GcIpDITdRPLsik6RWQLdLVM5CSE4NMGvAJVjUWVrSNjiAOXx IUT0EXU7MWCfPFVeML2TSvUhMUBnHDp7JtpiQJKtGH Xniy1XTDVrPNM2MNKvGzUgAPVkEFSqVDrkJWIrSPSrETBbDWEtCSLmUA3UXyFpRLKjDHLoKMLvLUGcKH Jvtr1ZKCAjRLD1SFK0GGBsWVFmJUAwVBqpURJgYZXsOMlpCBRbAVCtYU3DZdHsGPVxEKJ8FmHgXEOcTL Yhkg6NBAFeGWF2JfEpZXWmUPWgNKXrTYpfBFRcAYRz AYoxDVMpCNRsIO9TIdVgVLMyHVO1ZJEdRFJxRXXhqr2PdXKcuZcfql4MXXgAWj7OhInlBDK1HTjaPa2h cLT1TQTeFYPIPq3CnaZoZSCuOLWRQTnjDAXyNHLnFCC4HRRvFvSlBNX3F8M4Pow9PrJvFvZcUVI4JcWm DfA0GXT9FXskAFJ4BrZgYHQnAuVgFVuhPAChY3BoBL gzMGE+ST2nQMy+Vx8Ju0GphlA1biMfGXe9Njy8FV8ZUUZYT4ITOq== ID Date Data Source [id number] 01/15/2021 12:43:02 PM EDT [facility] Service Cmnt XXX-Imp : NoneMicroorganism XXX Cult : 200 col/mlStaphylococcus epidermidis. Name Value Range Interpretation Code Description Data Belinda rce(s) Supporting Document(s) ID Date Data Source [id number] 01/13/2021 01:49:56 PM EDT [facility] Name Value Range Interpretation Code Description Data Belinda rce(s) Supporting Document(s) History and Physical [facility] LRGGPo0yEmEFWuCm79/JURalOXNlz6JgYZtuJHa9BRvzVSWuD9BfVFP0yP7zOLF9QSoCTtDtToSmLMM1 lbm [file] CcDvXX9QVt6TKzF7BZL3wCDwQr2PBis0TVnEZrVdVB2UDIh= ID Date Data Source [id number] 01/13/2021 11:36:31 AM [facility] Value Range Interpretation Code Description Data Belinda rce(s) Supporting Document(s) Cobalamin (Vitamin B12) [Mass/volume] in Serum or Plasma 724 pg/ml 2 11-946 [facility] ID Date Data Source [id number] 01/13/2021 11:36:31 AM [facility] Value Range Interpretation Code Description Data Belinda rce(s) Supporting Document(s) Ferritin [Mass/volume] in Serum or Plasma 583 ng/ml 30-400 H [facility] ID Date Data Source [id number] 01/13/2021 11:36:31 AM [facility] Value Range Interpretation Code Description Data Belinda rce(s) Supporting Document(s) Haptoglobin [Mass/volume] in Serum or Plasma 348 mg/dl 30-200 H [facility] ID Date Data Source [id number] 01/13/2021 12:14:08 PM [facility] Value Range Interpretation Code Description Data Belinda rce(s) Supporting Document(s) Lactate dehydrogenase [Enzymatic activit y/volume] in Serum or Plasma by Lactate to pyruvate reaction 169 U/L 122-225 [facility] ID Date Data Source [id number] 01/13/2021 12:14:08 PM [facility] Value Range Interpretation Code Description Data Belinda rce(s) Supporting Document(s) Iron [Mass/volume] in Serum or Plasma 13 ug/dl 59-158 L [facility] Transferrin [Mass/volume] in Serum or Plasma 114 mg/dL 200-360 L [facility] Iron binding capacity [Mass/volume] in Serum or Plasma 158 ug/dL 278 -500 L [facility] Iron saturation [Mass Fraction] in Serum or Plasma 8.0 % 20-55 L [facility] ID Date Data Source [id number] 01/13/2021 11:38:00 AM [facility] Value Range Interpretation Code Description Data Belinda rce(s) Supporting Document(s) Folate [Mass/volume] in Serum or Plasma >4.77 L [facility] ID Date Data Source [id number] 01/13/2021 06:50:57 AM [facility] Value Range Interpretation Code Description Data Belinda rce(s) Supporting Document(s) Potassium [Moles/volume] in Serum or Plasma 3.4 mmol/L 3.4-5.1 [facility] ID Date Data Source [id number] 01/13/2021 08:12:47 AM [facility] Name Value Range Interpretation Code Description Data Belinda rce(s) Supporting Document(s) Magnesium [Mass/volume] in Serum or Plasma 1.5 mg/dL 1.6-2.6 [facility] ID Date Data Source [id number] 01/13/2021 08:12:47 AM [facility] Name Value Range Interpretation Code Description Data Belinda rce(s) Supporting Document(s) Phosphate [Mass/volume] in Serum or Plasma 1.9 mg/dL 2.5-4.5 [facility] ID Date Data Source [id number] 01/25/2021 05:06:08 PM [facility] Value Range Interpretation Code Description Data Belinda rce(s) Supporting Document(s) Thiamine [Moles/volume] in Blood 54.7 nmol/L 66.5-200.0 [facility] (NOTE)Verified by repeat analysisThi s test was developed and its performance characteristicsdetermined by [employer]. It has not been cleared or approvedby the Food and Drug Administration.Performed At: [address] [id number] Holden MD Ph:[phone] ID Date Data Source [id number] 01/13/2021 02:10:42 AM [facility] Value Range Interpretation Code Description Data Belinda rce(s) Supporting Document(s) Leukocytes [#/volume] in Blood by Automated count 14.4 10*3/uL 4-10 H [facility] Erythrocytes [#/volume] in Blood by Automated count 2.59 10*6/uL 4.6- 6.1 L [facility] Hemoglobin [Mass/volume] in Blood 7.4 g/dL 13.5-18 L [facility] Hematocrit [Volume Fraction] of Blood by Automated count 22.7 % 4 1-53 [facility] Erythrocyte mean corpuscular volume [Entitic volume] by Auto mated count 87.6 fL 80-96 [facility] Erythrocyte mean corpuscular hemoglobin [Entitic mass] by Automated count 28.5 pg 27-33 [facility] Erythrocyte mean corpuscular hemoglobin concentration [Mass/volume] by Automated count 32.5 g/dL 32.0-36.0 [facility] Erythrocyte distribution width [Ratio] by Automated count 16.3 % 11.5-14.5 H [facility] Platelets [#/volume] in Blood by Automated count 391 10*3/uL 150-400 [facility] Differential cell count method - Blood [facility] Neutrophils/100 leukocytes in Blood by Automated count 86 % [facility] Lymphocytes/100 leukocytes in Blood by Automated count 6 % [facility] Monocytes/100 leukocytes in Blood by Automated count 8 % [facility] Eosinophils/100 leukocytes in Blood by Automated count 0 % [facility] Basophils/100 leukocytes in Blood by Automated count 0 % [facility] Neutrophils [#/volume] in Blood by Automated count 12.34 10*3/uL 1.8- 7.0 H [facility] Lymphocytes [#/volume] in Blood by Automated count 0.91 10*3/uL 1.2-4 .0 L [facility] Monocytes [#/volume] in Blood by Automated count 1.08 10*3/uL 0-0.8 H [facility] Eosinophils [#/volume] in Blood by Automated count 0.02 10*3/uL 0-0.5 [facility] Basophils [#/volume] in Blood by Automated count 0.04 10*3/uL 0-0.2 [facility] Nucleated erythrocytes/100 leukocytes [Ratio] in Blood by Automated count 0 /100{WBCs} 0-0 [facility] ID Date Data Source [id number] 01/13/2021 02:16:55 AM EDT [facility] Name Value Range Interpretation Code Description Data Belinda rce(s) Supporting Document(s) Bicarbonate [Moles/volume] in Serum 24 mmol/L 22-29 [facility] Chloride [Moles/volume] in Serum or Plasma 101 mmol/L 98-107 [facility] Creatinine [Mass/volume] in Serum or Plasma 1.13 mg/dL 0.70-1.20 [facility] Glucose [Mass/volume] in Serum or Plasma 118 mg/dL 70-140 [facility] Potassium [Moles/volume] in Serum or Plasma 3.0 mmol/L 3.4-5.1 [facility] Sodium [Moles/volume] in Serum or Plasma 135 mmol/L 136-145 L [facility] Urea nitrogen [Mass/volume] in Serum or Plasma 12 mg/dL 8-23 [facility] Anion gap 3 in Serum or Plasma 9 mmol/L 8-15 [facility] Osmolality of Serum or Plasma by calculation 280 mosm/kg 275-300 [facility] Creatinine/Urea nitrogen [Mass Ratio] in Serum or Plasma 10 [facility] Calcium [Mass/volume] in Serum or Plasma 11.1 mg/dL 8.6-10.0 H [facility] Glomerular filtration rate/1.73 sq M pre dicted among non-blacks [Volume Rate/Area] in Serum or Plasma by Creatinine-based formula (MDRD) 69 mL/min/1.73m2 >60 [facility] Glomerular filtration rate/1.73 sq M pre dicted among blacks [Volume Rate/Area] in Serum or Plasma by Creatinine-based formula (MDRD) 80 mL/min/1.73m2 >60 [facility] ID Date Data Source [id number] 01/13/2021 02:01:08 AM [facility] Name Value Range Interpretation Code Description Data Belinda rce(s) Supporting Document(s) Calcium.ionized [Moles/volume] in Arterial blood 1.73 mmol/L 1.13-1.3 2 [facility] Called to and read back byEDDIE SARAVIA AT 10E AT 0201 BY [id number] XW ID Date Data Source [id number] 01/20/2021 02:06:27 AM [facility] Value Range Interpretation Code Description Data Belinda rce(s) Supporting Document(s) Parathyrin related protein [Moles/volume] in Serum or Plasma [facility] (NOTE)This test was developed and its [...] areclinically discordant, please contact the laboratory.Performed At: [id number] [place], [place] [id number] Brian F MD Ph:[phone] ID Date Data Source [id number] 01/12/2021 06:41:32 PM [facility] Name Value Range Interpretation Code Description Data Belinda rce(s) Supporting Document(s) Hepatitis C virus Ab [Presence] in Serum or Plasma by Immuno assay Non Reactive [facility] No serological evidence of active infect ion. If recent exposure is suspected, test for HCV RNA. ID Date Data Source [id number] 01/12/2021 06:21:00 PM [facility] Name Value Range Interpretation Code Description Data Belinda rce(s) Supporting Document(s) Prothrombin time (PT) 17.5 s 11.6-14.0 H [facility] INR in Platelet poor plasma by Coagulation assay 1.50 [facility] Routine intensity oral anticoagulation I NR is typically 2.0-3.0. Target INR must be clinically individualized. ID Date Data Source [id number] 01/12/2021 06:18:02 PM [facility] Name Value Range Interpretation Code Description Data Belinda rce(s) Supporting Document(s) Calcium.ionized [Moles/volume] in Arterial blood 1.75 mmol/L 1.13-1.3 2 [facility] Called to and read back byDANIEL HANLEY RN ON AT 1817 BY 2055 ID Date Data Source [id number] 01/12/2021 01:22:32 PM [facility] MR BRAIN WITH AND WITHOUT CONTRAST [id number] FINAL RESULTInterpreted by:Tricia Tate MDINDICATION: Mental status [...] rce(s) Supporting Document(s) ID Date Data Source [id number] 01/12/2021 12:04:38 PM EDT [facility] Name Value Range Interpretation Code Description Data Belinda rc(s) Supporting Document(s) History and Physical [facility] DOAJWy6uUgKVBoCb48/XAFhuVJMvi6TuFCjwXOc5IGauRIAsD5KgTOK7uO9lBYV8CRzRGdBsCkJfCVF8 m [file] AgICAgICAgICAgICAgICAgICAgICAgICAgICAgICAg ICAgICAgICAgICAgICAgICAgICAgICAgICAgICAgICAgICAgICAgICAgICAgICAgICAgICAgDQogICAg ICAgICAgICAgICAgICAgICAgICAgICAgICAgICAgICAgICAgICAgICAgICAgICAgICAgICAgICAgICAg ICAgICAgICAgICAgICAgICAgICAgICAgICAgICAgIC AgICAgDQogICAgICAgICAgICAgICAgICAgICAgICAgICAgICAgICAgICAgICAgICAgICAgICAgICAgIC AgICAgICAgICAgICAgICAgICAgICAgICAgICAgICAgICAgICAgICAgICAgICAgDQogICAgICAgICAgIC AgICAgICAgICAgICAgICAgICAgICAgICAgICAgICAg ICAgICAgICAgICAgICAgICAgICAgICAgICAgICAgICAgICAgICAgICAgICAgICAgICAgICAgICAgDQog ICAgICAgICAgICAgICAgICAgICAgICAgICAgICAgICAgICAgICAgICAgICAgICAgICAgICAgICAgICAg ICAgICAgICAgICAgICAgICAgICAgICAgICAgICAgIC AgICAgICAgDQogICAgICAgICAgICAgICAgICAgICAgICAgICAgICAgICAgICAgICAgICAgICAgICAgIC AgICAgICAgICAgICAgICAgICAgICAgICAgICAgICAgICAgICAgICAgICAgICAgICAgDQogICAgICAgIC AgICAgICAgICAgICAgICAgICAgICAgICAgICAgICAg ICAgICAgICAgICAgICAgICAgICAgICAgICAgICAgICAgICAgICAgICAgICAgICAgICAgICAgICAgICAg DQogICAgICAgICAgICAgICAgICAgICAgICAgICAgICAgICAgICAgICAgICAgICAgICAgICAgICAgICAg ICAgICAgICAgICAgICAgICAgICAgICAgICAgICAgIC AgICAgICAgICAgDQogICAgICAgICAgICAgICAgICAgICAgICAgICAgICAgICAgICAgICAgICAgICAgIC AgICAgICAgICAgICAgICAgICAgICAgICAgICAgICAgICAgICAgICAgICAgICAgICAgICAgDQogICAgIC AgICAgICAgICAgICAgICAgICAgICAgICAgICAgICAg ICAgICAgICAgICAgICAgICAgICAgICAgICAgICAgICAgICAgICAgICAgICAgICAgICAgICAgICAgICAg TIPwTHm8A2oiLFNsXMYhTJ8aIDz9Az1+YFiZAdRuUUD2ylWpwU8KHF6zo8GvLAdnDIFxs2UuBZf5OT1Z NMRpCQlrTJ3IMIzfbj2QISOfVAYuaMURl5vuMhLvFZ N9ZXKxUlbwOT3WETZtF6oixrMuPCYhQOGKUOnlSBDQCMaxZBJFMTYtOMEjNfAuYaJlRSLfTMFoXWRACP 0MAwFmM2JyuH08GQXVTv3+OPlgkkGbGsnBSnZ8OLLkv1BoGGz1FQ1OSHCrWxwux8BkBmYiKRJSSXlvQP 9IJAC9JDV6XLSeYe4BDCZnY887gnXbXZ1HKt6OKfGe YO0qlb0QXmUdKUSiUarQWcf6FLvwZM0CvPVuAQgWTpVwXcvtV6MsTWXjEBCoJiOzHVHbvSzhKQ0YYuPs YXVkJF8zCI7pKMGwNPB8KvCxROMMAW9XNEHoVWEpkJWeRQCzFEHFCX7OBCrfFHL2IOQovwHstLNxZCsg CV0VSPRlrfGkInJtSJCCVLy+Sl3JEO1ju6IhEXfqJj ZwRU8amb4HPIgLHwFeP0V0sECxG0W5WBxrXl4XSVUeMIXvWgNwVXSWTGpaGX5DEM7dnkZ8TF3AdRMlCZ TtYSTocUNvJOr0L87oxSQzEOraQL7KBEV+Immanuel+Zh7ANDSsWNPmNIGgWwIaHPUOZoDnU8SzT9MXk1NzD3 AiPB47xVawvoDfIGrmDI0KLP6xKPYzSGZQGC1DpZAc vK9qqoGiZQNvVDLVStYvO34vgYGvUVEzRNA1GWJkFu1ZCDEtX9UacwHdmKqgmrUuRXPiPNXGLR3ZJMom jfApvWKddJxhTH32qBkqWZ2TRa0CCnObMZ0vwf2DhPTwOy7OKBUdBF7ZTDKiKJAvYSTrYGO0YQEoCoNk MUpfEFHkTMPiBAP5ROQlFEOrDN9GOoNkNCWoOan0YB eoCMOrGPTpya6UJJLjCIM5BNboFZHrCHUgSPRpXXguIFTqMUUnDPJ6CYBlWUQeLK9LFrVdTVRaWOU7LT ImRWMoPFXwbf5UWEDsFYFvNWZ1ZCGqEJZsRYMsKVqsGDHmVPZ6CSA9DVGiWAOoPG5URmMpQEBsUNkqCj neDDYrJJZmcy1VHPBmPFAdYaD3OeTdHQUsHRHgLPhy KQPdTGRlKkKkEANyPWZvSF9NEkCmPKLxMWC6XKRcJLRkWBJmjp3LXIIyDEIhVPo0TQHvDLPgVEOvYNcf OKEbKQE5ZrG0YMVvCMMpGJ9BFjHqPBVfLFc7OzNpEXRtUOGynu4NWSWsGLSdUUQ6MPMqJPMnFOIiQMjc CHWjSFDbGrGxZVAoYKUmGU4EIoLkFSXuMdWnTwCxAD EaWSYnjo5IKVLrVITwXzOrXGSpSPNwJADrAAusZYGcMYEoYeJmPSBoKWAyXV9AOxGqSDLoQpX0QuAgOO KyJCDjvv8GAJRyTDWdEgb0AcBcKGMfHNSaRZymMMJaAFJjBYTfEVZvLHWfEI1VLpUqHJZmUwU5URKvHS JbVXZjkj9YEPDhPHTjGMYwMzJqVCXzFUDjKJamDVOj LUQ0UovkEKViHWLjPD2HQqCdKZCvKjPiSQifASCdZINfhn6LDJMzFJMbFeE0ALNuNXNmVDBaUWmzNSTp SWL3LyI4HBYvSBPnSG6QXgTbCUYfAdrmNwGoUCCgUSXrss9WFDVlPANuPQT2GyBfMNYfKNIdOYlbKGFv DBY8UVYlHTRkOCZfRJ3JXoYiVAGmEdm5XMXtWPCwXP Nioe1JAEFgPCMhOMkyWkJgHGXxSYFgIBezWKFjICW9XwU9VFYaIFRuYC8AOhTuYLGuCXA2XSCgGHFnNI Oqet1KILLpDPW3ABuqHYMpIFOqQTFdVGztKYAxJGMpEXD7XBBvSCBlHL4GBxEfOPqqMUWQQkb9VXueC6 a9GCMjOJ9IT9Tdi0XtUbbhXCPGXHneSY7djaQdNUHt Oh0HQ3eKPda5HbioLDJfNjY6DQW1ZAObH8KbFsSiBTL1Zau9DZD5Oj8bSJYbM4N8XcStBGj4HJxyIBBt OjObIAL1Sle7KBtpESj0HdOrIE4VBt4VHmI5JFH1mZFlZl1SZIWzZGbVHhOfIX1QRVv= ID Date Data Source [id number] 01/12/2021 11:11:26 AM EDT [facility] RENAL OR AORTA COMPLETE [id number] RE SULTInterpreted by:ANNALISA PereiraLINICAL INDICATION: rule out [...] Data Source [id number] 01/12/2021 09:03:15 AM EDT [facility] Name Value Range Interpretation Code Description Data Belinda rce(s) Supporting Document(s) Calcium.ionized [Moles/volume] in Arterial blood 1.75 mmol/L 1.13-1.3 2 [facility] CALLED TO TUSHAR MCCAULEY RN ON 10 AT 090 3 BY [id number] read back ID Date Data Source [id number] 01/12/2021 05:13:00 AM EDT [facility] Name Value Range Interpretation Code Description Data Belinda rce(s) Supporting Document(s) SARS-CoV-2 RNA 2019 nCoV Real-Time RT-PCR: NOT DETECTED [facility] This lab was ordered by [facility] and reported by [facility]. ID Date Data Source [id number] 01/12/2021 08:47:46 AM EDT [facility] Value Range Interpretation Code Description Data Belinda rce(s) Supporting Document(s) Specimen source [Identifier] of Unspecified specimen [facility] SARS-CoV-2 RNA 2019 nCoV Real-Time RT-PCR: NOT DETECTED [facility] Assay Performed 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 [facility] Patient has symptoms related to [facility] When did you start to experience these symptoms [Date and time] [Phen X] [facility] Patient was hospitalized because of this condition [facility] patient was admitted to ICU for [facility] Patient resides in a congregate care setting [facility] status [facility] ID Date Data Source [id number] 01/12/2021 01:59:22 AM EDT [facility] Name Value Range Interpretation Code Description Data Belinda rce(s) Supporting Document(s) Parathyrin.intact [Mass/volume] in Serum or Plasma 24 pg/mL [facility] ID Date Data Source [id number] 01/12/2021 01:42:12 AM [facility] Name Value Range Interpretation Code Description Data Belinda rce(s) Supporting Document(s) Leukocytes [#/volume] in Blood by Automated count 13.5 10*3/uL 4-10 H [facility] Erythrocytes [#/volume] in Blood by Automated count 2.70 10*6/uL 4.6- 6.1 L [facility] Hemoglobin [Mass/volume] in Blood 7.7 g/dL 13.5-18 L [facility] Hematocrit [Volume Fraction] of Blood by Automated count 23.7 % 4 1-53 L [facility] Erythrocyte mean corpuscular volume [Entitic volume] by Auto mated count 87.9 fL 80-96 [facility] Erythrocyte mean corpuscular hemoglobin [Entitic mass] by Automated count 28.6 pg 27-33 [facility] Erythrocyte mean corpuscular hemoglobin concentration [Mass/volume] by Automated count 32.6 g/dL 32.0-36.0 [facility] Erythrocyte distribution width [Ratio] by Automated count 16.1 % 11.5-14.5 H [facility] Platelets [#/volume] in Blood by Automated count 388 10*3/uL 150-400 [facility] ID Date Data Source [id number] 01/12/2021 01:56:22 AM [facility] Name Value Range Interpretation Code Description Data Belinda rce(s) Supporting Document(s) Albumin [Mass/volume] in Serum or Plasma by Bromocresol green (BCG) dye binding method 2.9 g/dL 3.5-5.[address] [facility] Bilirubin.total [Mass/volume] in Serum or Plasma 0.3 mg/dL <1.2 [facility] Calcium [Mass/volume] in Serum or Plasma 12.5 mg/dL 8.6-10.0 H [facility] Chloride [Moles/volume] in Serum or Plasma 100 mmol/L 98-107 [facility] Creatinine [Mass/volume] in Serum or Plasma 0.93 mg/dL 0.70-1.20 [facility] Glucose [Mass/volume] in Serum or Plasma 119 mg/dL 70-140 [facility] Alkaline phosphatase [Enzymatic activity/volume] in Serum or Plasma 122 U/L 40-129 [facility] Potassium [Moles/volume] in Serum or Plasma 3.6 mmol/L 3.4-5.1 [facility] Protein [Mass/volume] in Serum or Plasma 5.9 g/dL 6.4-8.3 L [facility] Sodium [Moles/volume] in Serum or Plasma 137 mmol/L 136-145 [facility] Aspartate aminotransferase [Enzymatic activity/volume] in Serum or Plasma 33 U/L <40 [facility] Urea nitrogen [Mass/volume] in Serum or Plasma 16 mg/dL 8-23 [facility] Osmolality of Serum or Plasma by calculation 286 mosm/kg 275-300 [facility] Creatinine/Urea nitrogen [Mass Ratio] in Serum or Plasma 17 [facility] Bicarbonate [Moles/volume] in Serum 26 mmol/L 22-29 [facility] Alanine aminotransferase [Enzymatic activity/volume] in Seru m or Plasma 14 U/L <41 [facility] Anion gap 3 in Serum or Plasma 11 mmol/L 8-15 [facility] Glomerular filtration rate/1.73 sq M pre dicted among non-blacks [Volume Rate/Area] in Serum or Plasma by Creatinine-based formula (MDRD) 89 mL/min/1.73m2 >60 [facility] Glomerular filtration rate/1.73 sq M pre dicted among blacks [Volume Rate/Area] in Serum or Plasma by Creatinine-based formula (MDRD) >60 [facility] ID Date Data Source 01/12/2021 01:56:22 AM [facility] Name Value Range Interpretation Code Description Data Belinda rce(s) Supporting Document(s) Magnesium [Mass/volume] in Serum or Plasma 1.7 mg/dL 1.6-2.6 [facility] ID Date Data Source 01/12/2021 01:56:22 AM [facility] Name Value Range Interpretation Code Description Data Belinda rce(s) Supporting Document(s) Phosphate [Mass/volume] in Serum or Plasma 2.4 mg/dL 2.5-4.5 L [facility] ID Date Data Source [id number] 01/12/2021 01:41:33 AM [facility] Value Range Interpretation Code Description Data Belinda rce(s) Supporting Document(s) Calcium.ionized [Moles/volume] in Arterial blood 1.77 mmol/L 1.13-1.3 2 [facility] Called to and read back byMARK TRAYLOR RN ON AT [id number] BY 1528 ID Date Data Source [id number] 01/11/2021 06:34:44 PM EDT [facility] XR CHEST FRONTAL ONLY [id number] RESULTI nterpreted by:Clarissa Villegas MDPROCEDURE INFORMATION: Exam: [...] rce(s) Supporting Document(s) ID Date Data Source [id number] [facility] Name Value Range Interpretation Code Description Data Belinda rce(s) Supporting Document(s) Bicarbonate [Moles/volume] in Serum 21 mmol/L 22-29 L [facility] Chloride [Moles/volume] in Serum or Plasma 97 mmol/L 98-107 L [facility] Creatinine [Mass/volume] in Serum or Plasma 0.96 mg/dL 0.70-1.20 [facility] Glucose [Mass/volume] in Serum or Plasma 114 mg/dL 70-140 [facility] Potassium [Moles/volume] in Serum or Plasma 2.7 mmol/L 3.4-5.1 [facility] Results called to and read back by 10E Malcolm CHEN AT 2023 Sodium [Moles/volume] in Serum or Plasma 137 mmol/L 136-145 [facility] Urea nitrogen [Mass/volume] in Serum or Plasma 18 mg/dL 8-23 [facility] Anion gap 3 in Serum or Plasma 19 mmol/L 8-15 H [facility] Osmolality of Serum or Plasma by calculation 287 mosm/kg 275-300 [facility] Creatinine/Urea nitrogen [Mass Ratio] in Serum or Plasma 19 [facility] Calcium [Mass/volume] in Serum or Plasma 12.1 mg/dL 8.6-10.0 H [facility] Glomerular filtration rate/1.73 sq M pre dicted among non-blacks [Volume Rate/Area] in Serum or Plasma by Creatinine-based formula (MDRD) 88 mL/min/1.73m2 >60 [facility] Glomerular filtration rate/1.73 sq M pre dicted among blacks [Volume Rate/Area] in Serum or Plasma by Creatinine-based formula (MDRD) >60 [facility] ID Date Data Source [id number] 01/11/2021 02:43:27 PM EDT [facility] Name Value Range Interpretation Code Description Data Belinda rce(s) Supporting Document(s) [facility] ospital BIVFUe1vCcABLhNdz9GzUzMrMGFxGK6qzyi7Z8W0qKDlN2YgqYOuq0lkG9YxI2YzQIPdPMNZSL6FvMDs jb2 [file] Offk4kaamaShBCpIQeGPRCRf8Z+aoax3KTAmiAZNq9+8kweyiityd1sb6fY/91H/+JN7XN/DARLEEN/zkHshP yjXgMir7kELKPnM8qx4ZTnirUH/zfHXg4FdFty6L50 u1ljxpq57+5rteue6H34r0slkyp0Z+Wbayl8543xmlcuiut5B+Zqgrk1972rmsjowwr0Z+Cnvxh69670 bwhaaus3H+Adrlx6635tiqobddd6n+hmkzc3955ftqcypev/vaVTtpQVqRbkjbk/72J/sXI3ZWX/7jT/ Ydp52+a0kP3aA/MdEwIOMPVkyIW9UQ0BN6Fs7I8+q7 56lkKJy1Kk1BHl65EVKE+IR9Gl5ScmNho577K/p9y5frwUxDJy/d8rS2mfCyIDf0VhQOp6S175FJnqzj 3NvZU4W3KfIJHJ+J7+806ftKixfDrsfcbN3J/6icyrTky8aZ+wbkH9182puc+p40+E31Fr3FAc/1wPOt qK9F+j1LCQ5rKIfm++mpNwo64LrrKv7bWe7dp/ui0v P8RL3i/wZ/Ai4hDr49DugtZjra6YrZk4/qXiMB0Axe4Q6G/9fwfw3/1/B/Zg3Z6R3H5yeHen3y1kC/De 1O6S02jocv+L2g5Op7uA+u4DfwG/xTpoMm1Pp9xsuY24lmyskq4wp118gRc+u7neHs+4jjXsOm93vKN/ S8jtaBzN9rSVw5GN/A3/WdmfZKN/Ab+Vaughn+01EBxeE0 8B3PO/o8rzo18/xYGip7az6Gc4Bs+qz+3vF/O/pvR/8dV/WLcVW/GDEzBF/Bhgrolyg2mPx949mwu3/i oh5vZuUiuJsxsz/9N9/d/TfzHMh/gD+Rz+6/WeZd3+r5A6A0GZl0Iod5OU/SJ8pCxh910J6d+u+M/hvP 7/dzGP79QS/jH2bcIn8r0T/iYO4PSh9NivP/4f+uq8 eNLQqIiG0p/UdkWni1IBudnoU5dFV+M220gPQ/C2qhDySPAVWi/MDzmI/Rqo2xR1gE36psi/y1Lwu9+k Vckt/8U7AdpRY1hpCI8spz26gPN9atf0dM2uFeh0KL1j3u2XcTdjqNO9FxB+4LQs/zHeUcT3/ea9ObUk /QXa5ohuFQUh1trH/9ah+e3Wl/8kxF8190Pf/t0Vd9 9MsrzkBFA7ysq1ob20Rm4xFcue7eQN3CQ665w6qcC3tL5FjprO439s8pg7xcloAaCT0/c4nZ0jjFXjEe uebUUI2y46YCkqM13uR2+xGkimsFVd6P9/SxkE0892d3KhJdmwOy6331c1iKzhGyU30z5COg4kZ9whQe 9GrlqcjlN9ia1M3+awRhAGgZb3Y++sW++FPpp1/saz +VBn/i+Lx7Euef+Fu/fnVe8Vgo8Xm9Ck6X15Za4Wa6nk/5PGkHv/EdMa8v5+VF8Ed4jU/5s9498yhXrp Js/UpOwIwqT+hXJ/2VMko84PlNh5F/TqzkTS8AjU28ZgBTDJ7AfF82JmM8eew8A9g2HycdqH+yhb40my 1H+qqGqfPYm3GyL36SU/P9DQ8sHg/v+vwtHKQs8Xv+ 5kz8ayWBi+C7E9+d4C/wV+Fsje9bp7kOZ14ia31l35cd+IuiW091Nb/in8jecNQc8PL+AzVxhZ1a9V+U H/XtC8+XvqGhXwU/9KtMC/t1p9Gm9gx5/+pA/q05LudWTzpBIOz+g+/gd+TQ6Yh2w/eLzPeNvzgBy3Pu 1x4Ol0G6O9Dmwx6g+hJxZK4BpZoDr5BDngEeN7Hvmk vycTyP/ygYpiu603S/cOmXrJ9XV/WdqG/bEfTQ8f5Jp493wuiG56C2PxGLwvMr9BoOSHqNE+YRphk1IO 8t/N+F+TgnRpuDpnnOm7HMu/VCu6q++38Niuhao82xnfqd+xRXCl6DG/ANzxvycfAd/A5+B3+AP8Cf+O 3Pqcj4iM/PqcZxc4aAFf7FQ/POxjpsmOv5YVeGH3A/ syCyb6l1Js5dco6ttCWj3Ra6O73eC4Cgz/1J9utfJ0u86KxwQ5dur1c83T5r7y6zixBtHdlhLRaaJ/hW 17418Tb8+W3hSABSn92NwSQkwcUaNdF/1eq/TWs+tkIanj0gsN60lcRQ+pVEev/zi40699A5O/3qpDc/ jbbN1nBm+Aa+g+/gd+Tf8d0B/gB/abr9ccgk7HO/sk w/+m0L/ujrqG3AiHs4CrH53Qis1BkM20m/xI5PavHhjjjwdLkrXogn9tnvnvem5CzAsqzxD/AX+Kivo7 9cS5ToebcIjeRhWd6swZS6q/IFwNAokVppWjwO7jQMlaq5XfJmIyTnooROn3ob53Qmtcn8ZysETjqota 5rYb/aa7oG+1WD/arBftXSfhXP7/98Wr69YhAc/7aw X+30zil7KwAQ2A+ifZ9siyDzb3pE43zvfp99B4txGgvgepv20n4j6yhr5CBfH9o6c6k/ihlkVya5TOi2 5PlXlmk2xbiWt4L+eaMp9Ry/87m13v92t/7y4oM9eQhRm98/c1c2ea3bNoG283I0FX2zmws+wEAUna9k 0IcmbE76/Tlmz99vtzYqsdrh6p73BXky5uaHys61v5 JegcxgAxoKmIZGa6qP/vaughn/ijVvC/6s8OD5bCd9+qUmFjWr3P+Sj/B86P3Ih3k9FoyVoxn631k/O9GeYb 9vjP882W1q7Ovl9cynqZ1EMs/WxQSd9Lh0Lu7Nu6Is0Xw0uB7am5ACokX+C/VdqO9C/l097iGZd5d7vy dpn9Ipwo5p1qkeeuC0Tam9f6wYO9KUjfX+gl5o9eLq a3y2q+yxdnXwO/gD/AH+BH8i/8Nlbq2Y+kqNzyaob+zGQyJ6Z3jFjkRudT7arjmWIb/Bd/A7+B38sD/H twb4qK+kfhB9xmh+7q9opuWbjWQ4AW//V/F/Zp4Y8lzVYg+mAbw1zC5Z3/D5b8Hk9ag84Q0SVDOhDL+S p334n7pQsrfGjfLD8DI/kd5J6Ef11qEr/oZwH351hs ELsKBTjGssHGxueQj0SlIF4l41am3/TtcWqeuuzJv1ftWg60ct6Ug1fw87I5k2gQ4pxI+ZNeRjyMcefc CsxitL+2O017DIp4phWPgxZvlfBhk7fyqGot0uHOCMXzw2G3eGl/0inbH07tbOc26rX4svG4JP7H423a W/Qr+K9nUK0mopQRcFkm60wBc2IE87fs34ps/7Zea1 HrRe61/rF/xfv2RmB2A8Ib405ZPIb/MMFvpVyKrXfreFfpVpB7/2U6zX/r712v+12B/Gdv7pV104pZ/g 4/+G/SrKP8r+bKPW+bIpq1kD3dDX/x21/rVR+6P9pn4191K53101993Y2GW6dSdnQNmlMO4I7Cdg+x9H hqP2j/eht7mj3zzvyncyBj5WGnhaXtraKu8QJ982Pp Kv3tc+XgvN4O//l7IBarts9ae38+D99gMDch6Q/v6/uoxo1KL/KJm6nkutzFL++v++6nHkOfF/Yb8y7A /awnwU+aUeZ1wdUvb59Lg4jm44z3g8sPlo06SricjeT1/6Wcd3JvrYpjl2Dc6S/Sr6e+pXYkRDVvxb3I 0tgph1rlf/HvrVST/zmod+tcvgV+fipgR56VG/inTN R36V/byYl9xl5h/aP/XBd7k374dSZ800+T958QbQycs+W+upybu9E/iTe1vFe0Pv/ckNxHlmo00nPbV6 h/8BDe5mLvTJF2q1JdyHve/srmBdsx9R/AH+FQ9D22624vkwfs0DaaD7Omk5v+Q4f+MuI0eEx5MqfK1+ s43kbFuXzJ9fHIboU9iq+lGYMw50BY61Xk1DAjaxSk tn7U1rkVv171fB+faq17xg/94i6cnqQZGD51cqz54sW+WL924AiKG4uK/CuO3DIoG2Feh1Zk765p1OgA Eya1/Q2ByLrT1ljLFj1cakUPQh9otOuLez9gB2Dopu9lpVy1P/o59lTWe+iqHdIs/m6Iykwak9O5Vd8/ DQt8a6d5m7a5t6/Rtys+uxD+d2NB9o51c+gtGukKeh /8tnZ28AekC0aGR92jia/2rpU4j49aA/NbRnq/nIreYjz/MJdj4009E+ynH+ykO/3rJQm60b7VGvVs5e C/gKvoLfwK/uHQ88riOr/GMeXBwNr4KakI/2s7jh36Dl7nab786wjcSh11Sj66gGa/RjuR9YK+6lT3rY r04a/Itl59649q7vg6z08Ui8f/Ad+PTw61UkmX2h/9 Invdd+wqgb8nz4O25X/oKP2i/rKkxpRnai4JpsCuxM1lfz+B54s1B64ikAr6fz3SQ87Y27yiyDeT6YL/ 0q/jIiX5gr9J/wS7/y0K/nD4GZBa21ZDSznf7pbG/n49By3OfsQ7otJuRA/ezMw89V9bgWk4Ojmnviu2 pxO/AfVUhEl9DTy5w/mfi/fP3eeGjVR/cFv82fiN54 ho1X1tP7DC4rl76ZgVDs/Ovscn3wQL01naP56owG3lKJdlC8wj918cS4Vbzq+V3tJWebbS/O6XFu79Mj o7h1F1tflk9zDhCGdj1tq3087G/7VfXtV+0f9Th/9bT2fWstB50N/zpice6JO9bnq84Bg+q//USaY87t yGdcSD/1ff19Xlfpxy/Ar/ml29u4boyaqu5i15g36W XOt+cziucV/HbVu+4Gl9Gy0POaD1IrUe/3C2nwB/uQ0GzNFaA/Wa7mwzpXqrJ2mT+cnkg9DkyjoB/WfN MtdeUpAVit9IsWU3cQkEF5gi/XQ3925zsP/AV+jIj21JvQwy85JjLg7Q0sb7Q160b5WZkw0yy9/JdW+6 O5adGD5j5/7Nt+FX2wb/eH2tDxp1hsdm/7VYwnfduv qlL59fhOcmxd45DEh/Pt8Yyh/wn8hho2Ep8Oz6995GPOo/aPuqG+PrrUi4lBktW417N/7w0K7uwP+1XH 5pxj7ffO8NqYGoB1FRpnH3xIczU0uHl84q9Sonjn2ai5z/t6O7y94A837BmJc+K5zk6nwPNNG/u/PexX WZ46/8a8pQj2/u0+wV/gwx1104A/624skGjPm74zh/ gv04YD1f31npH3Jy1vbYU+Mp5B15HR/ZRI1/n4k27E0Zc+nJiChpJ4Pq5n3/u4wK/iKt6FvmT+FHwFv4 HfwDfwa/6dN23O8fGNx2FFl/teqyWDuSnx8Ke+MB+UGR6Jh9MlJidX/Ko2OahN4VsRicGD4i3t5Gt99Q tM1/5vn3V+o89aL/RZ+mSftX/Az36JN0U7oU/l3mW/ 1ia4rVvVj+fccr/1v7uNzhg/rV/lmeR+93g7ldl9qpLy1J6hD0iHyiu746d0ty27csVa0o5yPnxudxem /d++3oj756j2pD5uql+8u910se2/R9nWPv+dil2melUT1pkUcl3ek08Z63r45tBXiFUckpi+rI1z7fI+ tptp6jalV2I25PRm6MjUBRvfZ68Qt5n19uuAKRcMza nI/cFMP+HXFHfJP83e+Zrej18eIYZ/g5Kd29NW/qD1QOjxz1+k0H2tLnh6eVwfNu5q/p9VnFYI/NpPGW m/npE4iFePan56lEYYl8L1CJXkyWL/9o+V0MtUWNChXLwG1+M5wVvajgK+QHkmvjtRngV+pq3b0FalZv X/jf3B+KexPxj/FQYO0izt2dt3uAj12Qq9ugO3KNL/ MNMOvoPfwe/sC6Jc4bSA4nuM4N+wIXfK13ymA+00suUft9weE0Q3B3/owMvcqgx46CslajD/wHvK88I2 1U9g9klyS0+Av+poSN1Jc/OMVatFO8283X16jjNIkTqaN/8N+1WmG/gN/UphZ3v7+8McfAe/g4/2bLUf Ftb9PluCQc3aoqz2kcYh/mp4zb/Da/9uPbBr0Jx/hy s0Vo8Dm2Nx2Ad6Rh0G39hW+ctivZ78fX30bSGF0AfyQFBHF0dmpRx63j2Cm8VXhEM+fYR+6KCq0mj8Vl YGkcez0z5sj3z7R7/ZNNboUmfuT8s3U+rbJ/gT/AV+0M4Ma207a4ZiR5ho19MgBDgQ3jP0FOAd+AZ+3a cbo+7TjeHgd/A7+QM5Wm22v46EVhqOyx0YwZi9QIE8 B8es/z2h4X6kqzkrE/XF+iAmwp46Lc5APuepGictUvvFs/aM8+0G2woCOBjWeX5dm1O/wK/9lLHQnhfa 65Q1gU9jNIUnvhCHgIqW3+5vsn6r3DOi8Mjr10Fe/bHK/zcL1Q7Y6C+52oLW5Xjfj/QXN0mgio45us7A M+2PL40KiW+kdR4n4bF+Mp7Z+gHKp4q89sQBe+A38A 18A7/rA94vhruS7B/qHuwjwaF8pApL/51X/x643aciFcLitttrzuzbN50g+XeGfrXnuCk1/73RPA10tr HfvN7d/1eCb8+3E8NFO4/Qr/K4qa830Vt7zC9YhzFqRD2y2xDu9Uh9Lhuu163ztk39dij/U+u+81QFX/ F8Qz4N+av4xAsQws1/Ok1060vdj9g6h4Ud/06t9e/U iecn+Mn64i4t8OvYfiavhOM/N5mkWOUV+XmG5e2QiV95gcyov8kGpxF5Zs7f+7+z1Xg1W+4ZtKl38fok v2y2Wv/SMpMzvXbjCD5C2+d4nfN4seIsy6wV3oSozh05tc1jzvX5/a5JmWzbd21+Yb+x4Z9t3dWrhq9a 0xAr35ihwmmdmibwPvd+N4hAwqM4+ed8Zp9/7pHnPv 8c/bvp1m4boIAw87bWBg/ttzk711Ffjs//Xi3S4O/170k/+2YW2xi2pc6RlkZH6+wz63x7T45RGEZZg/ Lp84t1c0uzF02g3/d57+m7vjEO+F7/Rr/wff45/tmyG963e90D2+Z11fjW6ngwOx32b50VYd753grwg1 m51VOhM/EDg4d2Uud0dF+q1W4oT8trxJ+17Z6IKK86 Wv/DBtZp6S/wS7+c6B9l4ehy1laxYH+BhaAvT70eF8yk4X4I63wF+tXE/cGJ+9SN6cu4TZ7J1N/QrzI9 wZ/9qa4udWW8tZ+PWSq8QPkxE9gDo+YsfWNOBb/h+GT4VVsci0iG3r78LP8lrEoE+faJ8+1zDvAxPk+M knUzT842n4S4lsygI81oodIQ4lQM+Xwd5roHl4+cb5 004y9kfq1zE1/Bx3yE8+8F46qinrmMxX+ce9H8yZ/j/NV+Mu9N92Zp2In9Yr9Go+G09Jh4Mu3SR/VdV9 L7YM16Ew1Dqvu28bgr/j8bL4vEYc/n98Phf4yv4Vx/a0ekd4bZ85JG8QiXhye8IhiBExw8V7/Bd/A7+B 3fHSjPAH/iedRXyj/SklofLS3/HXnz6OG0HA/1VdQX /q+JUkqiaOpxmUM8G4+J60Sg5zZBIp5R7hX2NI9jb0qqpbzwgorQL8SwmB98Zw1x8Z4B7MyE/wyrGfI3 5O/IH/HrpQ1LocTjqJu8ZzQG+tVqC+Wp88/Tub95tL6UA/i/WvB/Declan/Jacqueline/6iIO07FgT/AN/FoPLqv9 /WO6kNDpoJCURT0HjX49Dvwqt/91/F+/fRkp7F5vdo 15zb/W9Y5y0WL9X1/9lAX/Vwv+s8cyfalcXxdmkb+r5XX/y8hct8opw0m35g57anzv/TKJ84si8bsrf/ +m3AG3UP/BV/Ab+A18A9/Ar/9p0Bl4p1A+fXW0Z+tFi3q2K9D+hgEyDjI3y5H6oD/XqPXvGrX+XaPWv2 vU/d81yp/MGnX+iA3HohMktFtdOvxu/89F3j6V/gC/ 7uOs0K/6OosW8o2za/Z/53o0qlcZiMd88k2OxnQpheurW6mDzLf126UZt/LY9e49y/WQvSp7UofO/gB/ gj/EQ81urfiCuj1eOt2gHf0dy/wL7mB4twFlIm18lPZ7Q8HuxS9VbTfu0ehzz/CZz4d8o11n79dE3akc /music pastor/Z1dJntURrEElhPlH6+Ax7Ryl8cs+HB3aFL9OK QC4oYJYKJr9oEBTarmzJ5RAst3O5/acVT5nmUs/JsiRwI9zud65hwSP8G2kRfl2YJHXI/bS+LdXW/Czz 6d39fpvbz1Dv2GxH4Rhs7py5d4q8+QKuNLsRwL8N6H6Ciia5kmTg7aWN+5wcePg4Tm+3qNvyLCsAjP13 NWdcUHB1HiiaEfmP+sme/IaivNUZwakPKXJuTsmR3b h6+4mffmlWe5CykpXb2A2ps1S4EPxWTlb+km/QwsR9Pjs5Yj1JAzs8/U04AwPIsmE/U57AdBsvZ2JWPQ aA2aHavckUB4xaR3Oz8dpA69hQkVWBZlBuNE4UMCe3JFKlPKl+Tvnkf30CmuGJoESNf6GSo0QsWXgloQ n46doQHo5BHz3V9MBpjpzCkFmbLWfuKU8fG/Dy/Donald OS8jnkpX7vndDGeyLYMrPCkes89eZynuMDmnGvEcUKgtVQ13zZt6Ri2U6hK1R4HejDvINcjpTQhLRtTy 0BWuySlYXpKv0xVzRGfAK+T6q4nqXbCRM8mDh1IyAVDlZ86PxZP3HSBY7hI1yt10P2mIKH1+L008EVwP [place]+tw/Ix0kovvmT41cM1kEJ0Ezws0QACF+N9ncAqy [file] biAKMDAwMDAwMDUyMyAwMDAwMCBuIAowMDAwMDAwNj MjNQSxSSOuWM8nNiEuBOLtLWO9LALrIUGuJDFluvJSVALxRHZmQAd3RKJoEXAvBBXvMXznKEPrPRRnDS X6ZVWbMCFwOJ7aSjXsLSGxJJIqXFFeJDLvXFWovwKOULWoORIhMSM2WEJfJNDeEIWbRDtgHKKgOERdRa i2UFUyJGIbHE7wCyRrZLYdIOW3OQIkAKNgZBDoajOB FVSjZUG0Rma0TNKcGJIqDYFbYJubLKCxENHbRzP5TMFpFPRxJR3vUlByAUEaMFV2ZrKiQTZqLRWwqlVM RQEfXIQeKQQ7WyInSGHqGTNoJBblUUMbEGAbYDEiHDC5EYM1QGGhYwPqAUzjXRPRRNqPE2WjoaUzRrWV U0uqBd3rGyXzLWTPM0Hkx0GpHWHlTMFLPe9+ZbL9VSS4mWVnKhy6NRV7KtwsRELRHb== ID Date Data Source [id number] 01/16/2021 08:30:45 AM EDT [facility] Service Cmnt XXX-Imp : R HANDMicroorgani sm XXX Cult : No growth 5 days Name Value Range Interpretation Code Description Data Belinda rce(s) Supporting Document(s) ID Date Data Source [id number] [facility] Name Value Range Interpretation Code Description Data Belinda rce(s) Supporting Document(s) Calcium.ionized [Moles/volume] in Arterial blood 1.88 mmol/L 1.13-1.3 2 [facility] Called to and read back byTahir SANCHEZ RN ON 10E AT 0007 BY 1521 ID Date Data Source [id number] 01/15/2021 09:50:27 AM EDT [facility] Service Cmnt XXX-Imp : L HANDMicroorgani sm XXX Cult : Gram negative cocciin anaerobic broth.Called to and read back byHuong Hanley RN on 10E at 1452 on 01/12/21 by Vanita kaur anaerobic broth. Name Value Range Interpretation Code Description Data Belinda rce(s) Supporting Document(s) ID Date Data Source [id number] 01/11/2021 01:17:27 [facility] Name Value Range Interpretation Code Description Data Belinda rce(s) Supporting Document(s) Ammonia [Moles/volume] in Plasma 28 umol/L 16-60 [facility] ID Date Data Source [id number] 01/11/2021 01:14:17 PM [facility] Name Value Range Interpretation Code Description Data Belinda rce(s) Supporting Document(s) Lactate [Moles/volume] in Serum or Plasma 1.4 mmol/l 0.5-2.2 [facility] ID Date Data Source [id number] 01/14/2021 08:02:38 AM [facility] Service Cmnt XXX-Imp : NoneMicroorganism XXX Cult : 30,000 col/mlEscherichia coliGreater than 100,000 col/mlStreptococcus mitis group20,000 col/mlEnterococcus speciesATTENTION This species is always resistant to cephalosporins, aminoglycosides(alone), clindamycin, trimethoprim, and trimethoprim-sulfamethoxazole. Full workup of above organism(s) has been requested byDr. Elba Mcgee on 01/13/21 Name Value Range Interpretation Code Description Data Belinda rce(s) Supporting Document(s) ID Date Data Source [id number] 01/11/2021 01:24:28 PM [facility] Value Range Interpretation Code Description Data Belinda rce(s) Supporting Document(s) Procalcitonin [Mass/volume] in Serum or Plasma 24.13 ng/mL <0.10 [facility] (NOTE) < 0.25 ng/mL Bacterial infec [...] to sepsis/septic shock. ID Date Data Source [id number] 01/11/2021 06:22:08 PM [facility] Name Value Range Interpretation Code Description Data Belinda rce(s) Supporting Document(s) Magnesium [Mass/volume] in Serum or Plasma 2.0 mg/dL 1.6-2.6 [facility] ID Date Data Source [id number] 01/11/2021 06:22:08 PM [facility] Name Value Range Interpretation Code Description Data Belinda rce(s) Supporting Document(s) Phosphate [Mass/volume] in Serum or Plasma 3.9 mg/dL 2.5-4.5 [facility] ID Date Data Source [id number] 01/11/2021 01:27:59 PM EDT [facility] Name Value Range Interpretation Code Description Data Belinda rce(s) Supporting Document(s) Color of Urine [facility] Clarity of Urine [facility] Specific gravity of Urine by Refractometry automated 1.009 1.003 -1.030 [facility] pH of Urine by Automated test strip 6.0 5.0-8.0 [facility] Protein [Mass/volume] in Urine by Automated test strip 30 mg/dL Neg ive [facility] Glucose [Mass/volume] in Urine by Automated test strip Neg [facility] Ketones [Mass/volume] in Urine by Automated test strip Neg [facility] Bilirubin.total [Presence] in Urine by Automated test strip Negative [facility] Hemoglobin [Presence] in Urine by Automated test strip Neg ative [facility] Leukocyte esterase [Presence] in Urine by Automated test strip Negative [facility] Nitrite [Presence] in Urine by Automated test strip Negati ve [facility] Leukocytes [#/area] in Urine sediment by Automated count 94 /HPF 0 -5 H [facility] Erythrocytes [#/area] in Urine sediment by Automated count 8 /HPF 0-3 H [facility] Leukocyte clumps [#/area] in Urine sediment by Automated count None [facility] Bacteria [#/area] in Urine sediment by Automated count Non e [facility] Mucus [#/area] in Urine sediment by Microscopy low power field None [facility] Crystals.amorphous [#/area] in Urine sediment by Microscopy high power field None [facility] ID Date Data Source [id number] 01/11/2021 11:00:17 AM [facility] 5.8Serum levels of PSA should not be int erpreted as absolute evidence of the presence or absence of Cancer. Results obtained with different methods cannot be used interchangeably. This method is manufactured by [employer] and is an electrochemiluminesence immunoassay. Name Value Range Interpretation Code Description Data Belinda rce(s) Supporting Document(s) Leukocytes [#/volume] in Blood by Automated count 19.4 10*3/uL 4-10 H [facility] Erythrocytes [#/volume] in Blood by Automated count 3.07 10*6/uL 4.6- 6.1 L [facility] Hemoglobin [Mass/volume] in Blood 9.1 g/dL 13.5-18 L [facility] Hematocrit [Volume Fraction] of Blood by Automated count 26.8 % 4 1-53 L [facility] Erythrocyte mean corpuscular volume [Entitic volume] by Auto mated count 87.2 fL 80-96 [facility] Erythrocyte mean corpuscular hemoglobin [Entitic mass] by Automated count 29.5 pg 27-33 [facility] Erythrocyte mean corpuscular hemoglobin concentration [Mass/volume] by Automated count 33.8 g/dL 32.0-36.0 [facility] Erythrocyte distribution width [Ratio] by Automated count 16.2 % 11.5-14.5 H [facility] Platelets [#/volume] in Blood by Automated count 438 10*3/uL 150-400 H [facility] Differential cell count method - Blood [facility] Neutrophils/100 leukocytes in Blood by Automated count 86 % [facility] Lymphocytes/100 leukocytes in Blood by Automated count 6 % [facility] Monocytes/100 leukocytes in Blood by Automated count 6 % [facility] Eosinophils/100 leukocytes in Blood by Automated count 0 % [facility] Basophils/100 leukocytes in Blood by Automated count 2 % [facility] Neutrophils [#/volume] in Blood by Automated count 16.93 10*3/uL 1.8- 7.0 H [facility] Lymphocytes [#/volume] in Blood by Automated count 1.07 10*3/uL 1.2-4 .0 L [facility] Monocytes [#/volume] in Blood by Automated count 1.11 10*3/uL 0-0.8 H [facility] Eosinophils [#/volume] in Blood by Automated count 0.02 10*3/uL 0-0.5 [facility] Basophils [#/volume] in Blood by Automated count 0.30 10*3/uL 0-0.2 [facility] Nucleated erythrocytes/100 leukocytes [Ratio] in Blood by Automated count 0 /100{WBCs} 0-0 [facility] ID Date Data Source [id number] 01/11/2021 12:26:47 PM EDT [facility] 5.8Serum levels of PSA should not be int erpreted as absolute evidence of the presence or absence of Cancer. Results obtained with different methods cannot be used interchangeably. This method is manufactured by [employer] and is an electrochemiluminesence immunoassay. Name Value Range Interpretation Code Description Data Belinda rce(s) Supporting Document(s) Albumin [Mass/volume] in Serum or Plasma by Bromocresol green (BCG) dye binding method 3.0 g/dL 3.5-5.2 [facility] Bilirubin.total [Mass/volume] in Serum or Plasma 0.4 mg/dL <1.2 [facility] Calcium [Mass/volume] in Serum or Plasma 14.0 mg/dL 8.6-10.0 [facility] Results called to and read back by QUINTEN ASHBY RN [id number] Chloride [Moles/volume] in Serum or Plasma 89 mmol/L 98-107 L [facility] Creatinine [Mass/volume] in Serum or Plasma 1.25 mg/dL 0.70-1.20 H [facility] Glucose [Mass/volume] in Serum or Plasma 118 mg/dL 70-140 [facility] Alkaline phosphatase [Enzymatic activity/volume] in Serum or Plasma 153 U/L 40-129 H [facility] Potassium [Moles/volume] in Serum or Plasma 3.5 mmol/L 3.4-5.1 [facility] Hemolyzed Protein [Mass/volume] in Serum or Plasma 7.2 g/dL 6.4-8.3 [facility] Sodium [Moles/volume] in Serum or Plasma 133 mmol/L 136-145 [facility] Aspartate aminotransferase [Enzymatic activity/volume] in Serum or Plasma 42 U/L <40 H [facility] Hemolyzed Urea nitrogen [Mass/volume] in Serum or Plasma 21 mg/dL 8-23 [facility] Osmolality of Serum or Plasma by calculation 280 mosm/kg 275-300 [facility] Creatinine/Urea nitrogen [Mass Ratio] in Serum or Plasma 17 [facility] Bicarbonate [Moles/volume] in Serum 19 mmol/L 22-29 L [facility] Alanine aminotransferase [Enzymatic activity/volume] in Seru m or Plasma 16 U/L <41 [facility] Anion gap 3 in Serum or Plasma 25 mmol/L 8-15 H [facility] Glomerular filtration rate/1.73 sq M pre dicted among non-blacks [Volume Rate/Area] in Serum or Plasma by Creatinine-based formula (MDRD) 61 mL/min/1.73m2 >60 [facility] Glomerular filtration rate/1.73 sq M pre dicted among blacks [Volume Rate/Area] in Serum or Plasma by Creatinine-based formula (MDRD) 71 mL/min/1.73m2 >60 [facility] ID Date Data Source [id number] 01/11/2021 12:26:47 PM EDT [facility] 5.8Serum levels of PSA should not be int erpreted as absolute evidence of the presence or absence of Cancer. Results obtained with different methods cannot be used interchangeably. This method is manufactured by [employer] and is an electrochemiluminesence immunoassay. Name Value Range Interpretation Code Description Data Belinda rce(s) Supporting Document(s) Prostate Specific Ag Free [Mass/volume] in Serum or Plasma 0.8 ng/mL [facility] 13.9 ID Date Data Source [id number] 01/02/2021 04:46:38 PM EDT [facility] Name Value Range Interpretation Code Description Data Belinda rce(s) Supporting Document(s) Progress Note [facility] FZWEOh2kGlPBJaAu26/UQTwqYWHhc3SvRGjjRAi3QLhqGRShK9ZvOCW2jA6jZLZ4SZbCAqKoNqJyBUO8 [facility] [file] 3/2sfn6Jy+q2/UP4Je4zcr/julián/Dk7l4+bLVns+HJ+g0dyh3FYem/tEafLvMW++YK6BG9Ng9wUv4mg/P [file] V3I5KhB6BnF9TwVZH3VcCrBX8NEu6UOeX9HFK1qEXxFy2MKvY4XSXNNhYgEB1ZNMc= ID Date Data Source [id number] 12/22/2020 09:06:57 PM EDT [facility] Name Value Range Interpretation Code Description Data Belinda rce(s) Supporting Document(s) Progress Note [facility] RWDPCv3nUsOFMoPr15/ELDfiJDNeb0FkEKvmHWd7DCbuHPEzM0KfYDL0hJ2eSXZ3CKjPEkRxQuJzYUI9 lbm [file] atmospheric scientist+S9OxEFpD8Ek1lbkahf6yvSlh1CQkYqM4eblTwaex5HljuVqkr84X8ZP5aQf5J0SZr9+j1/lgF5jq [file] EB6JONXFE9QNYg== ID Date Data Source [id number] 12/22/2020 09:06:52 PM EDT [facility] Name Value Range Interpretation Code Description Data Belinda rce(s) Supporting Document(s) Progress Note [facility] JIPBFc8uXrCEPgCk91/LNAbdIVUdh7HlTFwfHLu8ROzmJDJmB7WfJAG6rI6kYNW3RWxHKbUiLaNkZUD8 lbm [file] aPmE6Z46SvzrgthFRkNyXCipJrM4E5NVJ4DgSKZrS3OEtVj2a4OOQscdIfX5LKKY7SpZiqPdyHkS/+MEJÍA [file] AgICAgICAgICAgICAgICAgICAgICAgICAgICAgICAg IHBqZCGyIHMmWLCcUWPwRIFxIVKxPSGvIKEyKCSmGOGhFEBfBSUlVMSmOIXhYX7HHEZjVFTvBJJvJXYw ICAgICAgICAgICAgICAgICAgICAgICAgICAgICAgICAgICAgICAgICAgICAgICAgICAgICAgICAgICAg RGXxXXAlBNVaSMAiMMNyGKTmNMRoHQWrYSUgBV0IIY AgICAgICAgICAgICAgICAgICAgICAgICAgICAgICAgICAgICAgICAgICAgICAgICAgICAgICAgICAgIC BcXBFyVTYlUVNlOWAzJKRnXSZkLAYvZPVfWMJjMIJjGECzSODwBW3VAYSnJCZrZLZoQVGvRPBkRPZwEZ AgICAgICAgICAgICAgICAgICAgICAgICAgICAgICAg OAUtPDGkOKPjXFZzOXJeHPKyGGOxDZClIWUpQDGuRRKoIJGwYESdRXGjJOMqMQAtNZ1DPKVzONDqSSUp ICAgICAgICAgICAgICAgICAgICAgICAgICAgICAgICAgICAgICAgICAgICAgICAgICAgICAgICAgICAg ICAgICAgICAgICAgICAgICAgICAgICAgICAgICAgIA 0KICAgICAgICAgICAgICAgICAgICAgICAgICAgICAgICAgICAgICAgICAgICAgICAgICAgICAgICAgIC BrKVVdRUOgSVGiYZZgXNXfQSWrOXXdYOYyYGJmRHAqXQHoGRYnEBEkUL9PNLWiFQKaSFMcONMyHRDrVW AgICAgICAgICAgICAgICAgICAgICAgICAgICAgICAg IPJyPGRpBJJoLSNgRDEjQAFwXCJpGCYfIGLhXKNuWIYoFXJpHQGfLLIoYFOjLLGiFZWbAK9HEMWzFNDt ICAgICAgICAgICAgICAgICAgICAgICAgICAgICAgICAgICAgICAgICAgICAgICAgICAgICAgICAgICAg ICAgICAgICAgICAgICAgICAgICAgICAgICAgICAgIC InVS5LTTDiPDYoJUFaCEPxPKDaZSDqDUMkUHEjSTIiRWRpYSXvXSUdKERnRYQbZPDrFYGaNPKvUHHrAB WxJKHpZMQvWUTwOLGgNVNnXSYoVBBmCHTsENPpSHFsTNIwQWWjAOLqUTAhDZ8XXNWyZWShKUEdAURwAT AgICAgICAgICAgICAgICAgICAgICAgICAgICAgICAg KWAgSQKkNGZbLJXmQERvQGRiOOUwCHGgURBcCAWeRODqOMEaPWEbTRYjONTkUCOfKFDvPIYkFF0BZC85 dREps2V6LENnNG9fqjs/Bj8XCLyncwZgqEKtIU1LStLeUG7nwt4VHoIkPV6jir9QHWeHQqAwP1C8sJYg QILdOATIJoFiP17gXGauKi15HDamJKNrYrAxMYm5Qg 4YMfApP7juOGItUeA3YWMxUiVxNChoGW8Wh7RkeGLwLVl+Iq2KOZ9ae5GeCKogDCTkJW5aod2HKJfRFz TeS9GpjoB2YLDwJXXiUc4KFPCcBHNlhRBlTWXeUSLQLxLzE4NxxB18UOHGLd2+DQplbmRvYmoNCjIwID Gme2NmONz7OE6RRGGlDIr8nBFyXQGpX8Htr1CiMk06 BDTpApkyWCFdOPYHNNPgkvZvBV7gEIChXQ9eMC0wBZPeXCHvWwDaIJFUGS3VHZEjYEXtxGSfUAIuTWXX JQ7ZRSliYUN7MWDzrzHqyIKoTZsiUV8BEOVherJwGZfoBSKBQTm+Yn8MFR8od6YeDQdgMZLzPY8mjt0A MXhMYsVcL3X7hEOqG3B9VTfrUm5LXOLlIMYvJDcrLN QDMMtxVV2CGC0fusD6JC4WnRCuNVCtSBLecECnSZw0Z54ooDBqGLgkRP5KYAC+Immanuel+Vd2MBFJhZXZlDJ JzDqOsVBMBZpZqQ7QvJ2BFj8MxG2MtZS37rWlgidRwBEmsVA7NNR1xRWNgKYMEBG5MjLDuiB1eqgEaVM MqUGXKImDhT83pvHLtZZRmKUC8GSItAe4DZHQzH0Fp yaJhnOlhnrXtKAEzIDWUIN3JWVajdyIdaOUvhIbdGR95pAhwVO2HEj1ZWyWtEJ4sqo0PyDAoYm0CJWBh Cw0XEYEoSSQpVCEdDAD1PCDcPoElWPwoOHLiFOMpZJN9ODNwNSPxKX5NZaVuXKJeZHM5GiHvMRZwZHJt cu4TULZwSIFbDLR2RFLeKLSeMQOcODpwWSFzDNSlTW B1YYJjOPXcAX6WYkPiFVEvAZTeUIxjTEVnOOOszh8JWDEkKVEoDZH4VVLqCHIwZQMcCHcqOEZnIUKrJN IbQFHjKPVwPW1BCjUtZUZiPDH8NFKaJIJhNKFkrs5PAHXjTLOrZyfcJbUoBBBqOUJxBSwoAQSbJUTsAQ t8TOJiXPJqPH9GKaZrOYYqTKHuBAYzWIFsAQYijt7B ADAtKGSlEWP7TmXsBRHhLFHkMCnfPHQzTTU1BbK1BRCqOEUcBP1BWwQqRCRyPUZ6JZHzKLQzNOPtxm9P OHKgMKFcSlS5WbYlFJLtOMJdBApkWAKxMTJ9RwvgLHTrHOKhZV0GTdOaWSOdPJJ9HbkvJBKdRPZyjz6A GBNfBHXyNnvyWBNfEDHnMXHfDHdyJXMqYMT8Cmo9PH QiJGVhCY7GZtTcMHIhOSj5VOowWAFbZEJcmn3CRRXxWFDvPVQ2FyIwONDfQRZkRCv1pfFijEAxZLt3JV 9US0LwyoSnBhNJKb7Vg158WXOsIQCpYa7YQ9bjZj5vTRIyARONHr8HIFn9IOT0OPF4TSpuLzvhREuxHv Q0R3D3ITvgBHSlRITnGfA+IBh3MvIcIMluEWB6X4Tl NUX5FzjiWKXaOSY1GZPkEoSwQv9hRDEMTt0+ZGislTVwwNspHZCBArH3EPJ8PZsjPCHXUo2E ID Date Data Source [id number] 12/20/2020 11:50:25 AM EDT [facility] Name Value Range Interpretation Code Description Data Belinda e(s) Supporting Document(s) Leukocytes [#/volume] in Blood by Automated count 12.7 10*3/uL 4-10 [facility] Erythrocytes [#/volume] in Blood by Automated count 3.19 10*6/uL 4.6- 6.1 L [facility] Hemoglobin [Mass/volume] in Blood 9.8 g/dL 13.5-18 L [facility] Hematocrit [Volume Fraction] of Blood by Automated count 29.3 % 4 1-53 L [facility] Erythrocyte mean corpuscular volume [Entitic volume] by Auto mated count 91.9 fL 80-96 [facility] Erythrocyte mean corpuscular hemoglobin [Entitic mass] by Automated count 30.9 pg 27-33 [facility] Erythrocyte mean corpuscular hemoglobin concentration [Mass/volume] by Automated count 33.6 g/dL 32.0-36.0 [facility] Erythrocyte distribution width [Ratio] by Automated count 14.5 % 11.5-14.5 [facility] Platelets [#/volume] in Blood by Automated count 428 10*3/uL 150-400 [facility] Differential cell count method - Blood [facility] Neutrophils/100 leukocytes in Blood by Automated count 87 % [facility] Lymphocytes/100 leukocytes in Blood by Automated count 6 % [facility] Monocytes/100 leukocytes in Blood by Automated count 6 % [facility] Eosinophils/100 leukocytes in Blood by Automated count 0 % [facility] Basophils/100 leukocytes in Blood by Automated count 1 % [facility] Neutrophils [#/volume] in Blood by Automated count 11.06 10*3/uL 1.8- 7.0 [facility] Lymphocytes [#/volume] in Blood by Automated count 0.82 10*3/uL 1.2-4 .0 L [facility] Monocytes [#/volume] in Blood by Automated count 0.80 10*3/uL 0-0.8 [facility] Eosinophils [#/volume] in Blood by Automated count 0.01 10*3/uL 0-0.5 [facility] Basophils [#/volume] in Blood by Automated count 0.06 10*3/uL 0-0.2 [facility] Nucleated erythrocytes/100 leukocytes [Ratio] in Blood by Automated count 0 /100{WBCs} 0-0 [facility] ID Date Data Source [id number] 12/20/2020 12:37:00 PM EDT [facility] Name Value Range Interpretation Code Description Data Belinda rce(s) Supporting Document(s) Albumin [Mass/volume] in Serum or Plasma by Bromocresol green (BCG) dye binding method 3.4 g/dL 3.5-5.[address] [facility] Bilirubin.total [Mass/volume] in Serum or Plasma 0.4 mg/dL <1.2 [facility] Calcium [Mass/volume] in Serum or Plasma 11.5 mg/dL 8.6-10.0 [facility] Chloride [Moles/volume] in Serum or Plasma 96 mmol/L 98-107 L [facility] Creatinine [Mass/volume] in Serum or Plasma 1.28 mg/dL 0.70-1.20 [facility] Glucose [Mass/volume] in Serum or Plasma 146 mg/dL 70-140 [facility] Alkaline phosphatase [Enzymatic activity/volume] in Serum or Plasma 144 U/L 40-129 [facility] Potassium [Moles/volume] in Serum or Plasma 3.6 mmol/L 3.4-5.1 [facility] Protein [Mass/volume] in Serum or Plasma 6.8 g/dL 6.4-8.3 [facility] Sodium [Moles/volume] in Serum or Plasma 134 mmol/L 136-145 L [facility] Aspartate aminotransferase [Enzymatic activity/volume] in Serum or Plasma 30 U/L <40 [facility] Urea nitrogen [Mass/volume] in Serum or Plasma 10 mg/dL 8-23 [facility] Osmolality of Serum or Plasma by calculation 280 mosm/kg 275-300 [facility] Creatinine/Urea nitrogen [Mass Ratio] in Serum or Plasma 8 [facility] Bicarbonate [Moles/volume] in Serum 23 mmol/L 22-29 [facility] Alanine aminotransferase [Enzymatic activity/volume] in Seru m or Plasma 22 U/L <41 [facility] Anion gap 3 in Serum or Plasma 15 mmol/L 8-15 [facility] Glomerular filtration rate/1.73 sq M pre dicted among non-blacks [Volume Rate/Area] in Serum or Plasma by Creatinine-based formula (MDRD) 59 mL/min/1.73m2 >60 L [facility] Glomerular filtration rate/1.73 sq M pre dicted among blacks [Volume Rate/Area] in Serum or Plasma by Creatinine-based formula (MDRD) 69 mL/min/1.73m2 >60 [facility] ID Date Data Source [id number] 12/20/2020 12:47:30 PM EDT [facility] Name Value Range Interpretation Code Description Data Belinda rce(s) Supporting Document(s) Prostate Specific Ag Free/Prostate specific Ag.total i n Serum or Plasma 3.4 ng/mL <4.0 [facility] Serum levels of PSA should not be interp reted as absolute evidence of the presence or absence of Cancer. Results obtained with different methods cannot be used interchangeably. This method is manufactured by [employer] and is an electrochemiluminesence immunoassay. ID Date Data Source [id number] 12/15/2020 05:14:47 PM EDT [facility] Name Value Range Interpretation Code Description Data Belinda rce(s) Supporting Document(s) Progress Note [facility] FNSTJe6dMySZJnEk60/TLLjtEHSae8QlVDysSRa0VCiiAKJaQ7DyVCD5kA9fXRJ6OHkJZjUxQaVfLMG1 lbm [file] Rg0K ID Date Data Source [id number] 12/15/2020 07:01:26 AM EDT [facility] Name Value Range Interpretation Code Description Data Belinda rce(s) Supporting Document(s) Progress Note [facility] EVPWIj8qHxCWJnXh13/WVWemUKRfq7HgLIbjYMg7YFsrUEUdA4CpAWR9hZ4bWXA6VAgRPvLeBlDzYCG5 lbm [file] AY/4R43h3a21YfBZ6MLXRa/HM1a+n1j1Q57H+S5c78 i5Ptlff5o8xhtlLIaShjDZ3njlCArEuODDzhBJdi49fdklv8ERr04V5vUM6iW6rIoivx9IXLC/hq9Wfr batcher operator+VwL6lvgBNJpWFhx9YjS3uTbRXVelsYKugznE6ZklEkfWjuENPU2MkU+OV+4DXgLeoGBIHRgFe+Xo [file] WxK2GFOsODNbBvZ9KSGvVnevUxKcWS6UOz1PGoO1WUR0yVVqCc5BAlRgRHcWExByPH4YOZc= ID Date Data Source [id number] 12/15/2020 07:01:21 AM EDT [facility] Name Value Range Interpretation Code Description Data Belinda rce(s) Supporting Document(s) Progress Note [facility] KFBOFk8sSiWKTnAw24/GQMbtQMDyh6JeRGexNJl1BJqcTVUnV5HsKRK5zY5ySDI6BWcAJrUqWzSpVDW5 lbm [file] ICAgICAgICAgICAgICAgICAgICAgICAgICAgICAgICAgICAgICAgICAgICAgICAgICAgICAgICAgICAg ICAgICAgICAgICAgICAgDQogICAgICAgICAgICAgIC AgICAgICAgICAgICAgICAgICAgICAgICAgICAgICAgICAgICAgICAgICAgICAgICAgICAgICAgICAgIC AgICAgICAgICAgICAgICAgICAgICAgICAgDQogICAgICAgICAgICAgICAgICAgICAgICAgICAgICAgIC AgICAgICAgICAgICAgICAgICAgICAgICAgICAgICAg ICAgICAgICAgICAgICAgICAgICAgICAgICAgICAgICAgICAgDQogICAgICAgICAgICAgICAgICAgICAg ICAgICAgICAgICAgICAgICAgICAgICAgICAgICAgICAgICAgICAgICAgICAgICAgICAgICAgICAgICAg ICAgICAgICAgICAgICAgICAgDQogICAgICAgICAgIC AgICAgICAgICAgICAgICAgICAgICAgICAgICAgICAgICAgICAgICAgICAgICAgICAgICAgICAgICAgIC AgICAgICAgICAgICAgICAgICAgICAgICAgICAgDQogICAgICAgICAgICAgICAgICAgICAgICAgICAgIC AgICAgICAgICAgICAgICAgICAgICAgICAgICAgICAg ICAgICAgICAgICAgICAgICAgICAgICAgICAgICAgICAgICAgICAgDQogICAgICAgICAgICAgICAgICAg ICAgICAgICAgICAgICAgICAgICAgICAgICAgICAgICAgICAgICAgICAgICAgICAgICAgICAgICAgICAg ICAgICAgICAgICAgICAgICAgICAgDQogICAgICAgIC AgICAgICAgICAgICAgICAgICAgICAgICAgICAgICAgICAgICAgICAgICAgICAgICAgICAgICAgICAgIC AgICAgICAgICAgICAgICAgICAgICAgICAgICAgICAgDQogICAgICAgICAgICAgICAgICAgICAgICAgIC AgICAgICAgICAgICAgICAgICAgICAgICAgICAgICAg ICAgICAgICAgICAgICAgICAgICAgICAgICAgICAgICAgICAgICAgICAgDQogICAgICAgICAgICAgICAg ICAgICAgICAgICAgICAgICAgICAgICAgICAgICAgICAgICAgICAgICAgICAgICAgICAgICAgICAgICAg ZZAvOBSoJLAlNELnMOXdHLUtZFOdWMPeXWz7F8poEC MkOCFsJY3nDEb1Fz0+FWxLZfKvUKA5jlBkoJ9YBJ8sl5LrPRmiNEHjm0GxZLo0BL9IKZBpPEphIG2PFP outj5TQGLtJQPbdRMEk5yuKiRdRDS6IGLkHhzdPS8VAVMgD6ovnlXoWNMyRCFNPQwzSDWZEAKwEAVgQg LmKlIiUPBpZLEjMTBAXPA0DVVlTmWiFQHzHZYjCbZi TROIJE7PIjAyA3JepU59LGuISr2+HCheipJrVemCHdT7LBAxh9GmUBv2SE4VPHDxTbsge0GwYnitRLZZ XLqxSD7EUUO0JOB3LUQjJh9QLWWkC483onMzYW4VGx9QFnTvQD7guh6OJkfyBHYfUgeBBhl4SKbeBW5D xMAqGSxPcp1qwxOszyGHi0XqczBvdNPWAU9nEEQDHC yxaTCxQRVqOZ3BYBS2QCbiIpltQeQeJKUyPPr5ZLEROWgFWhElJ7Rcj9WdSnY0BEKpKtBkSOurWSJoWk O1PE01cKdtYQ8VEXMhAWGgXJ43UTG0CGOuGw5BCd3RIoReZD9ieh6ZKoEwNH5pvm0PHSeSJtHrW5C6uT VqS6Evss15BX1WcLE2gKMuIE8XkU7gWJ8Yy2KqOJSg DfWvZVElRKWvUJTcIKQrOrAaQV2HMPWdOfXkuQBxBKCnVVZ3UIBqKmU6PGHaSU4ZERSnCCM1HJ1AZS7D NvnaX4OEUMycqIckMuWZULY/ILNKKISUTUcoAQTtP20UK1WHFLfDPvjzSWbOWvcyCq6jTPl+Bh6PFG5p u9ToXBrtKFNtTW3yjg4AAWpTMhPzK1B3sVPfN3M4KF euVi4RWVVaZLPxEzWaFNMMOXajJR4OGQ6znbR5MF5FmWWzWKOeNAPhiKCbQNk6J71qsLDvVTdnDZ9JHI A+Immanuel+Cw5WPPSaFAZnYFCiMyCsLBSVBjVzT9EqF1JDo9HtW9CgDI08kAoyivSgBDspSK5DSA2rIRFgJH ZJZL8AeEQljT3mkiLzBoJjTFAVGbUzB23eiVNmBVRi OMU2TGRkOe3OSTPvP2AkqjRqoYjvciGhJDQpSBMNTL7KTQnntwTkoOXsgDbwLX20eUymZY4SCx7EDgDv YN5vuz2WrXAtRb7WFIB2FB9BWDCaJNSoCZAbZHL7MLCfRrQaZNntMAAsTRWrOFN1RTCoJYFnAG5VVaYf ZJKuOKV9OEYhWBZaYEElyt9ZJKCoTJO0GZFzGOJiMZ JjCNAbDTysNVStHIUxQNG8REGqVAIhXK5MEoFmOHBsXHO2YfqxWIWqRLEehn2DVAHbUGY0DeMgQXKsHS GkVOVgCNknSZSrFHK4SuE6YIEnTHUsED3SEyEeCSTsCEcvHhFnKBEhYEPbsx0JJSQuEAJnJFH4XdEzDY OmAPZmNLkuXMWgKUJnIxW9OJYiCPItVD8IJiUpELAm CII0ZokoVSYlXLEcfe0CVFEcSBDcQUbqRbByEBOvKNOxWFvzZRDqONE8QDFmJCHsVLKrVD4WPtPoVZSq CJs0WiLvJLYoCBHdqt3HKCNjQRKdEOYgYHPsRSBaAFWcLNbrDOWuURHhIDG9JZWyLNZkRF1SQvWgUDYj WgY2EvEqFZDkVJSdij6GKFUlUAFkZYKgKLOdWJWvIR SsAKiwKQJkLOH0RVW4HYTrJABbLK7OMfBpIOLgTvhtJNCfXURpPYCkdt4KNLWpQJWhEdIiKtVjNFDsKQ IqJPlwJXMgWXY7SGibBEUjMFRzVI9IJhGaIJLkTxe7NvuqVEFlFWYflv7HADNcFNDkGSn6OzZuJKBcHC RbSJtyUDMrWQD2FLSgYNXxZUDhHZ9GGkXqUSQvOzHs WeNkPTAoLARpgs8ANOBuXFEtPPLyJXXfSBLsQGBfEClnJUYxAYBwQyIrJOQbTUVoBM8YZwRxAZUhWCB5 TiYaFPMdYQUxfk1RBEVsRJW8YvJ4OPMrKCCqAYXjXGjxTFWiXERcGSY4DGGuSRPdMV6FEiKiJUUgDSJ1 ZhXkVVWcOEJgsp4CONAgUZN7JuDtIKYmXDAgJAQaKG dyWZPaAXHpWjSvLADeZZKvXQ3PNfJiKWBrSOT8ESTmVQDaANMxlx5CSMHhGQV5LNO0DFEpFALsUVErKA vhGRGnVTE1Qkp4LJNuVFTjVO1MIkHxRZNfDKH7PCXgDCMlPWHffn6EUFHyZWX2NeW3YDToHRElAZWrTP f8zrZqyCOoNAz0KV9BF6UeniPeCNJVSm3Av844XWV7 ENDnCr7SP6gbMt8wMLMdMOYOKb6AEMt9LUK9TcUtRWMyVCF0OJbqKIk3C9VzLWn0JvQ9XeEnDHL+IDww HYPiQcQnYwD7AzH9EQGhKGeyVvI8ItEvTbPpIdZtCe8uKMJBLy3+JEksyOCbgDxwRWLQKtA3GXT5TVxb XCFBPz3V ID Date Data Source [id number] 12/14/2020 12:57:39 PM EDT [facility] XR ABDOMEN AP SUPINE AND AP ERECT [id number] INAL RESULTInterpreted by:SANTOSH PereiraNDICATION: abdominal pain with [...] rce(s) Supporting Document(s) ID Date Data Source [id number] 12/14/2020 11:06:21 AM [facility] Name Value Range Interpretation Code Description Data Belinda rce(s) Supporting Document(s) Leukocytes [#/volume] in Blood by Automated count 10.0 10*3/uL 4-10 [facility] Erythrocytes [#/volume] in Blood by Automated count 3.52 10*6/uL 4.6- 6.1 L [facility] Hemoglobin [Mass/volume] in Blood 11.2 g/dL 13.5-18 L [facility] Hematocrit [Volume Fraction] of Blood by Automated count 32.8 % 4 1-53 L [facility] Erythrocyte mean corpuscular volume [Entitic volume] by Auto mated count 93.1 fL 80-96 [facility] Erythrocyte mean corpuscular hemoglobin [Entitic mass] by Automated count 31.7 pg 27-33 [facility] Erythrocyte mean corpuscular hemoglobin concentration [Mass/volume] by Automated count 34.0 g/dL 32.0-36.0 [facility] Erythrocyte distribution width [Ratio] by Automated count 14.4 % 11.5-14.5 [facility] Platelets [#/volume] in Blood by Automated count 506 10*3/uL 150-400 H [facility] Differential cell count method - Blood [facility] Neutrophils/100 leukocytes in Blood by Automated count 70 % [facility] Lymphocytes/100 leukocytes in Blood by Automated count 18 % [facility] Monocytes/100 leukocytes in Blood by Automated count 11 % [facility] Eosinophils/100 leukocytes in Blood by Automated count 0 % [facility] Basophils/100 leukocytes in Blood by Automated count 1 % [facility] Neutrophils [#/volume] in Blood by Automated count 7.02 10*3/uL 1.8-7 .0 H [facility] Lymphocytes [#/volume] in Blood by Automated count 1.79 10*3/uL 1.2-4 .0 [facility] Monocytes [#/volume] in Blood by Automated count 1.07 10*3/uL 0-0.8 H [facility] Eosinophils [#/volume] in Blood by Automated count 0.00 10*3/uL 0-0.5 [facility] Basophils [#/volume] in Blood by Automated count 0.08 10*3/uL 0-0.2 [facility] Nucleated erythrocytes/100 leukocytes [Ratio] in Blood by Automated count 0 /100{WBCs} 0-0 [facility] ID Date Data Source [id number] 12/14/2020 12:03:22 PM T [facility] Name Value Range Interpretation Code Description Data Belinda rce(s) Supporting Document(s) Albumin [Mass/volume] in Serum or Plasma by Bromocresol green (BCG) dye binding method 3.7 g/dL 3.5-5.2 [facility] Bilirubin.total [Mass/volume] in Serum or Plasma 0.3 mg/dL <1.2 [facility] Calcium [Mass/volume] in Serum or Plasma 10.7 mg/dL 8.6-10.0 H [facility] Chloride [Moles/volume] in Serum or Plasma 96 mmol/L 98-107 L [facility] Creatinine [Mass/volume] in Serum or Plasma 1.13 mg/dL 0.70-1.20 [facility] Glucose [Mass/volume] in Serum or Plasma 113 mg/dL 70-140 [facility] Alkaline phosphatase [Enzymatic activity/volume] in Serum or Plasma 114 U/L 40-129 [facility] Potassium [Moles/volume] in Serum or Plasma 3.3 mmol/L 3.4-5.1 L [facility] Protein [Mass/volume] in Serum or Plasma 7.1 g/dL 6.4-8.3 [facility] Sodium [Moles/volume] in Serum or Plasma 136 mmol/L 136-145 [facility] Aspartate aminotransferase [Enzymatic activity/volume] in Serum or Plasma 38 U/L <40 [facility] Urea nitrogen [Mass/volume] in Serum or Plasma 13 mg/dL 8-23 [facility] Osmolality of Serum or Plasma by calculation 283 mosm/kg 275-300 [facility] Creatinine/Urea nitrogen [Mass Ratio] in Serum or Plasma 12 [facility] Bicarbonate [Moles/volume] in Serum 22 mmol/L 22-29 [facility] Alanine aminotransferase [Enzymatic activity/volume] in Seru m or Plasma 14 U/L <41 [facility] Anion gap 3 in Serum or Plasma 18 mmol/L 8-15 H [facility] Glomerular filtration rate/1.73 sq M pre dicted among non-blacks [Volume Rate/Area] in Serum or Plasma by Creatinine-based formula (MDRD) 69 mL/min/1.73m2 >60 [facility] Glomerular filtration rate/1.73 sq M pre dicted among blacks [Volume Rate/Area] in Serum or Plasma by Creatinine-based formula (MDRD) 80 mL/min/1.73m2 >60 [facility] ID Date Data Source [id number] 12/14/2020 12:10:23 PM [facility] Value Range Interpretation Code Description Data Belinda rce(s) Supporting Document(s) Prostate Specific Ag Free/Prostate specific Ag.total i n Serum or Plasma 4.3 ng/mL <4.0 H [facility] Serum levels of PSA should not be interp reted as absolute evidence of the presence or absence of Cancer. Results obtained with different methods cannot be used interchangeably. This method is manufactured by [employer] and is an electrochemiluminesence immunoassay. ID Date Data Source [id number] 12/03/2020 07:40:58 AM [facility] Value Range Interpretation Code Description Data Belinda rce(s) Supporting Document(s) Progress Note [facility] MECKMj6rOkDGHuJj26/LJQdqRDCri3RbUJjfFEr1IIbnQZSjI8BjUTI1jZ8iHBJ2VJlONqSfLtKsEKR5 [facility] [file] MARKET [employer] WORKER++mXnLBfp8JUTc4GKSGktFgQ7wTPkrTHroMGk/f4 [file] 31mHE/o/M+Maria Fernanda+A/7soimmdt/pR4euImYudaDuW+z0o4Zq0GQFdzrXW7VacmafszsZZxLn0eJ/3KlP5z 0h/CYRnvf+sXwAnU7wht/Lw02Y2tvq2IL5HX5E4vQQ oCgKHU73JB6o+oZrr5TcjqHfV/tnBi5Kv9jSrtxGIFiNf8Iaf3n1VAejEE8qWUhbXW8/KmQEwHFF+iCN OUJdYpidVU9KzvvK1JrGb91P4xuXvowrF+/HeS/32fyw08w+FmMXj0VvOhxNLsKrs71dx2x0XTuJLYaN Ntmib5v2/r7JeQ8OmhcV9/0r5gCGjZQLCQyinPmFly 65B/rBqjfAdK2d1Rr+qWTFT5JF10JDej+O5lSW9sdJCqY8LcJYI+E+G+V9OLytyvG3lk4MHIuHM13Hsh 80K/7N4cY1jw/wmJX+wAZgCdz/CaA/P/PU0Q5J5sY+b0n4IhrV8uG2o+E/D3gS/k/yVqeDlku18XMZnf JqwGQ7NZzHRl6mz/8e9bSKD0+BFbcHc4MY6CqF7SH2 Y2pnOC15jKYxX8Mp9h+QkAqAPB9q3WGh54+e69GpR92lF+M4FO+aim11isqWqFTEgcGpfrt/C/3RpmL8 GoVX3ZyG1XLKaGr/Mp9L7KlAx3SevQkSR4UB+aJcdr/bqa2PrwuSaKHBzs8QdV/fWoTVxJ8i+YcNjE7i S6KZJkEmTUQpmktqs0Ty284Q2C0Y5AD9l7O/dPo0R7 JlYOEP3Yz7a/3ft4/8F/rU/lKKykDwnh0VcYEeyd1Zh54yur/+l/vyw/AZ2e99k+p3+ajPgoBwD7KYMU ir1hAIk/BRENDA/iPpOd+X3++3vG9/Lk1jlOQe4DS80nY9VeMkILVrZx6eoPbS/XhAf2uRAC+Q439B8cTJw [file] USVLXYdnVN7QWN0pmvQ3KW3GaZWvYBAfKMVqyDPjHTq5F85mlWXeSSjfSC0HPBP+Immanuel+Vb1FCSNfVHOa UECkHbAvBKOPWvYkR9RnA6SRm8JoR4PpQE32dKlvevMzUEgcZO7AEB3nOCWuEAUXGV9JcGZzmA7tecId WgVkAHEYJaOoG05rpUOcQQUwGEZdUNLeMy6NBVHiF9 QguxAcsKkcluHnZVZdLGYMBX1XRZncdoIpvTFuaWiaTN88dArmFJ5CCc8YTdZaKE4fio0EzVBaRy6XBF YrGo1DWPJvPUFpMFLxWQI3VFFlGkPpSGoeALPvDRHvTKE1FZHjEAFtAD1LVyFkEFUoXTeyVSViSZMxBU Kiug2QWCIgMEQ2NGh2ZMUqLXRqRRGiSYbwUJFsXQHj DUU2SAUbMIGxAA5EVnPyURYlGSL2GWjoMEMfGPCrbv4GCFRdKTGbKJA4YUPtPNToPUNzCPjkVQGuVWM2 YoKpKVQxZKPkJL7GEsDxLULsXDi2YEotXQDtWRKzsx8AMQFhHKWeGwDvYaCeGBBtLTKaFUwvTLCtCBSi KUXbTEFvCREuIN2TMbMoBUObOTPrSLuiQTWgCZNqxr 8TERVmXLBkADJkQTByZCSnPKHdQFprIJLlKZR3QII2POXrSPCoOR0VCgXxKDZpVOgmXYctLOFeQMAgog 0AIYNaZXJ6SSU9KBZuWWHiQOMwPCbuRSWfUBM3OIc9NPFgSTCpWA0WBqNyBVZtZEmtUSPbHAWeXSDsxr 8ZJRMbIKGcUHU0QVJzJHWfBDVhPZcqOZDhOIM2Jxqq RVLsZFUlIQ2UChOrJYMjRQj8HLPuVEVfDFCwld6ZYALqTPDcNBAjZyWhTJPyCCIlGMqqGFQyPGOdEpM2 BSZvFIFdVL7WDyAhPSQbTiS6OOOlKCBcHUQdnv4CZZMmQPO1ZaqxHdXeFKCbOFMgQLjdTRIoXKA9RFO5 JBIzWIIiAV4WQsDpGXCgKQY4OlkgYPWyMKBvbl9ANS VyHAM0HPSnPcWvSGVhPFViZEumYLWrPGY5MaiaALTrJZLhKV0YYeVhANWnHKB4TyRaQORwOCNqfn6BPW ZfCVL1UtfhMXJhAETwKPErUNlyLUAjSST8JVxiVCPtYZNlPM8LTnUlCHEvIAp5GPogVPDeZMMjyj3WXE TkBCR4MKu9SiVwAIPiNYSsUFrtUJUtGRE7VQG2DBOh WXUzCZ4XTaGcDUVvUKj0ADYjTAEnKLWlws7FeLRdcZeiul3MBNyBUt1IbBmwZBO9GZxbCs0jhYYkBVDz SMSJQv9YeqZcOBOeNTDHUYrjYXMaLBBfPytmBDOkXIfkOEH9SpFzRFYpZuWzIjY9PYWuASH6PaI9OXR7 JDU1VBW5AGZ4NxOgGXQ8ISJdXcVdXlw1KbX6MrF+IF 0gDQo+Ak8Yq7ZbpuI1soXiFOf8ARt4YD9YRRQXX1UPSd== ID Date Data Source [id number] 12/01/2020 04:11:47 PM [facility] MR LUMBAR SPINE WITH AND WITHOUT CONTRAS T [id number] RESULTInterpreted by:Savita Silva MD11/22/2020 4:48 PM MR LUMBAR SPINE WITH AND WITHOUT CONTRAST [id number] CLINICAL INFORMATION: rule out new fracture in [...] high-grade central canal stenosis. Mild right and sjwm-kv-fsndtkii left neural foraminal narrowing is seen.L5-S1: Pseudo [...] rce(s) Supporting Document(s) ID Date Data Source [id number] 12/01/2020 04:11:27 PM EDT [facility] MR THORACIC SPINE WITH AND WITHOUT CONTR AST [id number] RESULTInterpreted by:Savita Silva MDEXAMINATION: MR THORACIC SPINE WITH AND WITHOUT CONTRAST [id number] INDICATION: rule out new fracture in setting [...] rce(s) Supporting Document(s) ID Date Data Source [id number] 11/24/2020 02:35:09 PM EDT [facility] Name Value Range Interpretation Code Description Data Belinda rce(s) Supporting Document(s) Progress Note [facility] ZURNZm1wSiQSSiOu33/YRFqqQOLeq6GgLFaxKZc2GIesVIQpI6YkMYC3tL4tSFF3DDwYIrYqIvQwGnZ2 lbm [file] Rg0K ID Date Data Source [id number] 11/23/2020 09:31:18 AM EDT [facility] Name Value Range Interpretation Code Description Data Belinda rce(s) Supporting Document(s) Leukocytes [#/volume] in Blood by Automated count 7.1 10*3/uL 4-10 [facility] Erythrocytes [#/volume] in Blood by Automated count 3.71 10*6/uL 4.6- 6.1 L [facility] Hemoglobin [Mass/volume] in Blood 12.0 g/dL 13.5-18 L [facility] Hematocrit [Volume Fraction] of Blood by Automated count 35.3 % 4 1-53 L [facility] Erythrocyte mean corpuscular volume [Entitic volume] by Auto mated count 95.1 fL 80-96 [facility] Erythrocyte mean corpuscular hemoglobin [Entitic mass] by Automated count 32.3 pg 27-33 [facility] Erythrocyte mean corpuscular hemoglobin concentration [Mass/volume] by Automated count 33.9 g/dL 32.0-36.0 [facility] Erythrocyte distribution width [Ratio] by Automated count 14.5 % 11.5-14.5 [facility] Platelets [#/volume] in Blood by Automated count 365 10*3/uL 150-400 [facility] Differential cell count method - Blood [facility] Neutrophils/100 leukocytes in Blood by Automated count 66 % [facility] Lymphocytes/100 leukocytes in Blood by Automated count 24 % [facility] Monocytes/100 leukocytes in Blood by Automated count 8 % [facility] Eosinophils/100 leukocytes in Blood by Automated count 1 % [facility] Basophils/100 leukocytes in Blood by Automated count 1 % [facility] Neutrophils [#/volume] in Blood by Automated count 4.65 10*3/uL 1.8-7 .0 [facility] Lymphocytes [#/volume] in Blood by Automated count 1.73 10*3/uL 1.2-4 .0 [facility] Monocytes [#/volume] in Blood by Automated count 0.58 10*3/uL 0-0.8 [facility] Eosinophils [#/volume] in Blood by Automated count 0.09 10*3/uL 0-0.5 [facility] Basophils [#/volume] in Blood by Automated count 0.08 10*3/uL 0-0.2 [facility] Nucleated erythrocytes/100 leukocytes [Ratio] in Blood by Automated count 0 /100{WBCs} 0-0 [facility] ID Date Data Source [id number] 11/23/2020 09:58:20 AM EDT [facility] Name Value Range Interpretation Code Description Data Belinda rce(s) Supporting Document(s) Albumin [Mass/volume] in Serum or Plasma by Bromocresol green (BCG) dye binding method 3.7 g/dL 3.5-5.2 [facility] Bilirubin.total [Mass/volume] in Serum or Plasma 0.4 mg/dL <1.2 [facility] Calcium [Mass/volume] in Serum or Plasma 9.4 mg/dL 8.6-10.0 [facility] Chloride [Moles/volume] in Serum or Plasma 100 mmol/L 98-107 [facility] Creatinine [Mass/volume] in Serum or Plasma 0.72 mg/dL 0.70-1.20 [facility] Glucose [Mass/volume] in Serum or Plasma 117 mg/dL 70-140 [facility] Alkaline phosphatase [Enzymatic activity/volume] in Serum or Plasma 103 U/L 40-129 [facility] Potassium [Moles/volume] in Serum or Plasma 3.9 mmol/L 3.4-5.1 [facility] Protein [Mass/volume] in Serum or Plasma 6.8 g/dL 6.4-8.3 [facility] Sodium [Moles/volume] in Serum or Plasma 135 mmol/L 136-145 L [facility] Aspartate aminotransferase [Enzymatic activity/volume] in Serum or Plasma 31 U/L <40 [facility] Urea nitrogen [Mass/volume] in Serum or Plasma 12 mg/dL 8-23 [facility] Osmolality of Serum or Plasma by calculation 280 mosm/kg 275-300 [facility] Creatinine/Urea nitrogen [Mass Ratio] in Serum or Plasma 16 [facility] Bicarbonate [Moles/volume] in Serum 21 mmol/L 22-29 L [facility] Alanine aminotransferase [Enzymatic activity/volume] in Seru m or Plasma 19 U/L <41 [facility] Anion gap 3 in Serum or Plasma 13 mmol/L 8-15 [facility] Glomerular filtration rate/1.73 sq M pre dicted among non-blacks [Volume Rate/Area] in Serum or Plasma by Creatinine-based formula (MDRD) >6 0 [facility] Glomerular filtration rate/1.73 sq M pre dicted among blacks [Volume Rate/Area] in Serum or Plasma by Creatinine-based formula (MDRD) >60 [facility] ID Date Data Source [id number] 11/23/2020 10:38:32 AM [facility] Value Range Interpretation Code Description Data Belinda rce(s) Supporting Document(s) Prostate Specific Ag Free/Prostate specific Ag.total i n Serum or Plasma 2.8 ng/mL <4.0 [facility] Serum levels of PSA should not be interp reted as absolute evidence of the presence or absence of Cancer. Results obtained with different methods cannot be used interchangeably. This method is manufactured by [employer] and is an electrochemiluminesence immunoassay. ID Date Data Source [id number] 11/19/2020 11:15:56 AM [facility] Value Range Interpretation Code Description Data Belinda rce(s) Supporting Document(s) Progress Note [facility] NUCSQg9vZaGZQkPn55/VDUasKJAfj2DqWNltITp4UFagEBJwB1HiAXD4nI2bAPQ0JHoXPgJxTcMrYnEd lbm [file] ICAgICAgICAgICAgICAgICAgICAgICAgICAgICAgICAgICAgICAgICAgICAgICAgICAgICAgICAgICAg ICAgICAgICAgICANCiAgICAgICAgICAgICAgICAgICAgICAgICAgICAgICAgICAgICAgICAgICAgICAg ICAgICAgICAgICAgICAgICAgICAgICAgICAgICAgIC AgICAgICAgICAgICAgICAgICAgICANCiAgICAgICAgICAgICAgICAgICAgICAgICAgICAgICAgICAgIC AgICAgICAgICAgICAgICAgICAgICAgICAgICAgICAgICAgICAgICAgICAgICAgICAgICAgICAgICAgIC AgICANCiAgICAgICAgICAgICAgICAgICAgICAgICAg ICAgICAgICAgICAgICAgICAgICAgICAgICAgICAgICAgICAgICAgICAgICAgICAgICAgICAgICAgICAg ICAgICAgICAgICAgICANCiAgICAgICAgICAgICAgICAgICAgICAgICAgICAgICAgICAgICAgICAgICAg ICAgICAgICAgICAgICAgICAgICAgICAgICAgICAgIC AgICAgICAgICAgICAgICAgICAgICAgICANCiAgICAgICAgICAgICAgICAgICAgICAgICAgICAgICAgIC AgICAgICAgICAgICAgICAgICAgICAgICAgICAgICAgICAgICAgICAgICAgICAgICAgICAgICAgICAgIC AgICAgICANCiAgICAgICAgICAgICAgICAgICAgICAg ICAgICAgICAgICAgICAgICAgICAgICAgICAgICAgICAgICAgICAgICAgICAgICAgICAgICAgICAgICAg ICAgICAgICAgICAgICAgICANCiAgICAgICAgICAgICAgICAgICAgICAgICAgICAgICAgICAgICAgICAg ICAgICAgICAgICAgICAgICAgICAgICAgICAgICAgIC AgICAgICAgICAgICAgICAgICAgICAgICAgICANCiAgICAgICAgICAgICAgICAgICAgICAgICAgICAgIC AgICAgICAgICAgICAgICAgICAgICAgICAgICAgICAgICAgICAgICAgICAgICAgICAgICAgICAgICAgIC AgICAgICAgICANCiAgICAgICAgICAgICAgICAgICAg ICAgICAgICAgICAgICAgICAgICAgICAgICAgICAgICAgICAgICAgICAgICAgICAgICAgICAgICAgICAg ICAgICAgICAgICAgICAgICAgICANCjw/vGEhS6wmlTHfnzV4U0bvFq0BBw4LWE5yx0OyJFPsQZebfbYz KmyPNkZrTNNuUchETni6IHnhMP4ZuIYbD8VmK4FpEX ftXJ5ZIYObCPHeqBKcIZDkZEQcAoK3TBXlYRenNH9SoSEfEJatQJBaVRHgNRSdFZWtBSRaPFXAJJEuEG PzJvEaBIHmCWDfZPFzELJCBLF3BLDkJeLhONHlFLJeEdBlZIWXGI1RBuNkG3FhtC80HBkSUd3+DQplbm EmLqyBLwC4PXWsw9CfUZw6TX2TFFXcNhhds0HdNDrw VVHMSXwvVB7YWRA7FJF9ZAAxKc4RTWXhN484spHlWW3WPy3WRuGqRX2ezq4AWMmvXQOjLwiADmv1XWzp XE3UqKSlGTtHve1xuhZgttTRd8PyeaBwlRDSXS0zNkAbduWghG4yBH0VLZL5JVofJhBgNwJnXJNyGdf3 GDUZSXlEKhCnF6Hzh1GgYcE0JFAtCvLqGPjlQSEiUx F8HT24qEuwFR9SAPPaGGXsRL98WYL1UKLeVz9RQj7QIeAfLG9lia7VZtSwLB9jss0WFNoFAdIjL4R2zP YtQ9Jafr22TF8NqKP1bVTeEV6DxC3hWA1Tp4TtQCTjEoMePRNgCJErBXIeADEiEkMqPV6TOSEhDgHjoJ EaJTLfQYN6VEPaSqT5JTHiAM4JOLTxETT3GB6TRD9U HgvqC5IPXWbpnTjdYwKOIHT/YSNXNCACVEynETZpQ18QB8WIDGvZTlknCRzVAylzDh3vVZx+Un2NZB9i m6McIAc0HEUoDZ4rdk3PXFwEFkJeB3O1dYZcM0Y0YLddIr6WPPUhPRDnCJLfUIFTAFbdSC0WWL3qhtY1 UG3AyMWgATSfXELgfQWyUGm9S97emDIjZGnpHR8ZGO A+Immanuel+Tx5IVXLaSEXpGDFsPkToOBRGWnMbD3LxB2MWg9PwC2JtVQ90xPntifOeQSckVT7CZB6vLBEiPS KXZF4UiKIjzO6npyF8ZrSyVOGDZeQaW76lyCFlNQKzETT2NNLqEt6QSOKwO2SmarNojTocfkMmLHBjYZ GGTG3JFGviwsPddEIvmPmhAZ28gNxzHP0LIs0BXaOw PB9rli0ZnELbGw1BESY8DW5WIDScWVOqZZIuYFL7AYQgVeNdDKjdHDXqUKGwNEU0EMRkASMdLK9LWtPm QHNeVOU8EgXeLESiMWAmgq3JRARvJBB7HXJ8XcCuAEYoHOOyRSwkEVGsDZKfWTD0ZXToKKPjHQ6QEsQk KTEcXIItFMLyDEOlYWPcgi5UOADrRYG8WMA3SFEaWZ VpGLVcOSztAVFdMFX3UzX2ISHqPZQgBM9SOoRtZRGyZDgyKpyxXMMpJRGkog4ZKFIfHGIeMAUdVxLtRQ IfNPTsLUldALMtSFAkUhGmFPOvXCSbVY0HKeHdIWUuYDH4AnfnSABvFZVqof6JLRNlEWYoFZD5BNQyEH LyASKiBTteHQTxXBM4Ytc8QKBqSFYqYR7TLyPqIDVn LSm5QswlADZfWBOrkz0KFSExSJSbKUHwDICwNOPeYCRfGXwxZZXmMTBuEvg5OPWvIVKaGX4ZMkPjDZEr KjI0ETSnQFHuCCAqnj4ONNUbJXDaAqPsKfGmCZJuFXElXVqfYBIdIIY1PlK1JNYvFXWmXG5NZpXxPDLl JnP6TBAeYKNrPWUygu8LGIXaKAAyTRD5VqIcRRLpJZ AdHIhtACJzYNUfYUO2BMCjTLYuYF2ISqOlUKBaWwLrDkOlKBVpTFTzgu8SJFZsMWXdHwW7NFZuGMVsTX OtVQcfYETsDZMtSYj0FRXgZYHdJL1ZPhJfLVNwCkN8YrQhUNQcECJhqa5QRFHkTCHpKGLpVLEiGAMeGQ AjYShxJEHqECP1NCPoCHHdAWPdJN5LFbBwYZXnPnVv ZvAkOIGbZPRnqz9YKDSzKOY1WGQbCqWsOKFyPVYcILcxDXWwCFJuZCB8LLLtFQEgXZ7QPgBfMFWbOwVj ZHgkYNDjKGMxny7WVOTqXNV8OhgbRiWfPELsUKXrUYpjICUsZHByYMVmULBgWTYiKF0OMjBbVXTiQfHn TRIuLPQkARJykm5TCDShUNA0VKO5VdAuFGJqXLDbHI etCDZxWVI9DwD7HPFiZFAwRH5GXzXwFFHlFyQfPTGhEHYtFLMsbt2EQVUqXUU3JNY6DOKuVUEkTJLoBC idYGOoOSI3YwZ6LSRyWTQkHO2TVaUgRYPwWZFvMzAcRZXiUSWmpk1EXMBbFOQ3BSZaYsAlKAFaSJHtQQ bdAMFaUDg8ZOO3VKQgAVMwWW4YIhKpSWExXJPnBHot SHGsBTErpg5DDWWjSGJ0PeHiGDCsWXKoDLNtAKppWZRrXVr7BIX6VLAsCKKhAZ7HSnIiHWSkUEv4KOEj KLQhCAWrht5UULRgEAU1UHHdUXMsGURqJXPrZNvbTQJlVPl3QHI5NJZlERUkFC3BQdXzQTnzODRJEop3 MBufA3n4DRR8QO1ER3Sca0LxNEdcDOBQLQquSW2yro VrCCQfXw9JW9zVXeewQ5J4VLQ6NRSyMIYpFWEgRCF7UKNiCJJmKRDkL3UgWP8vCIVcIFewRpJ6UgU5DZ X3DpK3SJQsSPOuYPE6KEVbShQ3HvNlBC0VYl7JApW1MPZ7kOEuIz2VFQjcCScXAmQgMN2KTOd= ID Date Data Source [id number] [facility]/18[facility]2020 12[facility]02[facility] [id number] RESULTI nterpreted by:Mary Wetzel MDHISTORY: 60-year-old male [...] rce(s) Supporting Document(s) ID Date Data Source [id number] 11/16/2020 03:30:41 PM T [facility] 2.9Serum levels of PSA should not be int erpreted as absolute evidence of the presence or absence of Cancer. Results obtained with different methods cannot be used interchangeably. This method is manufactured by [employer] and is an electrochemiluminesence immunoassay. Name Value Range Interpretation Code Description Data Belinda rce(s) Supporting Document(s) Leukocytes [#/volume] in Blood by Automated count 7.8 10*3/uL 4-10 [facility] Erythrocytes [#/volume] in Blood by Automated count 3.86 10*6/uL 4.6- 6.1 L [facility] Hemoglobin [Mass/volume] in Blood 12.4 g/dL 13.5-18 L [facility] Hematocrit [Volume Fraction] of Blood by Automated count 37.0 % 4 1-53 L [facility] Erythrocyte mean corpuscular volume [Entitic volume] by Auto mated count 95.7 fL 80-96 [facility] Erythrocyte mean corpuscular hemoglobin [Entitic mass] by Automated count 32.2 pg 27-33 [facility] Erythrocyte mean corpuscular hemoglobin concentration [Mass/volume] by Automated count 33.6 g/dL 32.0-36.0 [facility] Erythrocyte distribution width [Ratio] by Automated count 14.1 % 11.5-14.5 [facility] Platelets [#/volume] in Blood by Automated count 345 10*3/uL 150-400 [facility] Differential cell count method - Blood [facility] Neutrophils/100 leukocytes in Blood by Automated count 63 % [facility] Lymphocytes/100 leukocytes in Blood by Automated count 27 % [facility] Monocytes/100 leukocytes in Blood by Automated count 8 % [facility] Eosinophils/100 leukocytes in Blood by Automated count 1 % [facility] Basophils/100 leukocytes in Blood by Automated count 1 % [facility] Neutrophils [#/volume] in Blood by Automated count 4.93 10*3/uL 1.8-7 .0 [facility] Lymphocytes [#/volume] in Blood by Automated count 2.14 10*3/uL 1.2-4 .0 [facility] Monocytes [#/volume] in Blood by Automated count 0.62 10*3/uL 0-0.8 [facility] Eosinophils [#/volume] in Blood by Automated count 0.08 10*3/uL 0-0.5 [facility] Basophils [#/volume] in Blood by Automated count 0.06 10*3/uL 0-0.2 [facility] Nucleated erythrocytes/100 leukocytes [Ratio] in Blood by Automated count 0 /100{WBCs} 0-0 [facility] ID Date Data Source [id number] 11/16/2020 04:04:18 PM EDT [facility] 2.9Serum levels of PSA should [...] (BCG) dye binding method 4.0 g/dL 3.5-5.2 [facility] Bilirubin.total [Mass/volume] in Serum or Plasma 0.3 mg/dL <1.2 [facility] Calcium [Mass/volume] in Serum or Plasma 9.5 mg/dL 8.6-10.0 [facility] Chloride [Moles/volume] in Serum or Plasma 103 mmol/L 98-107 [facility] Creatinine [Mass/volume] in Serum or Plasma 0.82 mg/dL 0.70-1.20 [facility] Glucose [Mass/volume] in Serum or Plasma 108 mg/dL 70-140 [facility] Alkaline phosphatase [Enzymatic activity/volume] in Serum or Plasma 97 U/L 40-129 [facility] Potassium [Moles/volume] in Serum or Plasma 3.6 mmol/L 3.4-5.1 [facility] Protein [Mass/volume] in Serum or Plasma 6.8 g/dL 6.4-8.3 [facility] Sodium [Moles/volume] in Serum or Plasma 141 mmol/L 136-145 [facility] Aspartate aminotransferase [Enzymatic activity/volume] in Serum or Plasma 25 U/L <40 [facility] Urea nitrogen [Mass/volume] in Serum or Plasma 19 mg/dL 8-23 [facility] Osmolality of Serum or Plasma by calculation 294 mosm/kg 275-300 [facility] Creatinine/Urea nitrogen [Mass Ratio] in Serum or Plasma 24 [facility] Bicarbonate [Moles/volume] in Serum 23 mmol/L 22-29 [facility] Alanine aminotransferase [Enzymatic activity/volume] in Seru m or Plasma 22 U/L <41 [facility] Anion gap 3 in Serum or Plasma 15 mmol/L 8-15 [facility] Glomerular filtration rate/1.73 sq M pre dicted among non-blacks [Volume Rate/Area] in Serum or Plasma by Creatinine-based formula (MDRD) >6 0 [facility] Glomerular filtration rate/1.73 sq M pre dicted among blacks [Volume Rate/Area] in Serum or Plasma by Creatinine-based formula (MDRD) >60 [facility] ID Date Data Source [id number] 11/16/2020 05:18:11 PM EDT [facility] 2.9Serum levels of PSA should not be int erpreted as absolute evidence of the presence or absence of Cancer. Results obtained with different methods cannot be used interchangeably. This method is manufactured by [employer] and is an electrochemiluminesence immunoassay. 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/HSZ7tt2hyjuKJHHIZffOlqZD2cka6Qimoe4FGweRHAWQuBKvxkbxJ7XDYL7STrmoLPyPQWMRP [file] DQo= ID Date Data Source [id number] 10/05/2020 02:52:53 PM [facility] BONE SCAN IMAGING WHOLE BODY [id number] AL RESULTInterpreted by:Neena Amin MDINDICATION: patient undergoing [...] rce(s) Supporting Document(s) ID Date Data Source [id number] 09/04/2020 06:39:32 AM EDT [facility] Name Value Range Interpretation Code Description Data Belinda rce(s) Supporting Document(s) Progress Note [facility] KIMEWg8oYlREPwSy43/JHLiwFPToc5FaJXndYTi2LSsgBUMvM8WwCMW9rC1vYZC9IUrYPnZbMiBcNWO5 lbm [file] RnFq1HRZh7QjAINtBdWW2VKYp= ID Date Data Source [id number] 08/23/2020 10:49:52 AM EDT [facility] Name Value Range Interpretation Code Description Data Belinda rce(s) Supporting Document(s) Progress Note [facility] XICKEz8fQaBOUfVs12/OEBlqCJLpg5PvALmlJOp7RBvkHTAgW4ZvLQL5lV9kQQN6YQbAKkKoJuEqDRD0 lbm [file] X1UP6TwFWpQAKhKHGjiVEmIDd9Q94otFNyZMmdHP7TZNA+Immanuel+Hk4BQSCpGQUzNNTiOgZfRFBMIhKkN0 CoS9OBi4YgB1XqSG46iWrcheQdVTrnMK7AJF4qURJfZPWHFK3HaWTmtY3poqL8KzXpYSERTjGbL07piT DwQEBuSVUsVYFmBo4GSTShE6NgunEerMtfafBmZJPz VRVBGE1YXMnjhdXbcYGkxWzgCC44jEboJC5XHj0IOgVoTF5xuy2YvYNjKu0HZZQ9GZ8VGBVoFRJkQZRl BIX9SLHmUsZbRQkvYDKlSUQbOFX6PSAfWSSpPJ1IGuWxXSDpMNB8GJYgUUGgJBTpga4XYWPrBGK7CABx TtMtMCOoFOJrNTcnFHOaEULkVMR6QMQjNPVoMF8GOu GjBIReGJWcVGNfDGSePCXhuf3IIKAcNOM6GDZiWYBqGFCwLHOkSPpsZCSxAEV6UnWnLFOfFODqBX2GGm VnJPMsICw3GOEdGHUfMIRdxy3JOPUnIPXrPPR8XNXbRDHrCXBhNZenIVNvBRVuYmD0YNIuVZJoRP4WQs PdOHXfQYG9YtSoEFRbZAJtfp6ODCHuNHOgUNT4SVPx FLJgCXUkDCwdGTTyJWQ9HNgrCDIyZFGsCM4IDbAqSGDgQPq7AfOeXZAfHUYiev2VUTEyXANcIsCfCZGu MHZdRDSqTFydTTJnPRKfZCV6UTTeQTGnZX1AZpVfMFQnGrQlXJJjJMJhPWYlom8XPCCdHTPuBYjgJYNv XMLtVTHyFCutSCCcVLS2HAX4KGDqNSVsRT7ZZeVhMC JbPmhlVPIdUNJqRNZgnj2MJJAkHCTjWJE6DsQgYMWwRRJhCMrhHEDkBGG7MNj5ZMUbFASpVV6UNeAzXU XlMdpcOPUtZJVwLASlrz5XVGRyXMWgFQW5QKJdHEChNYPyLIkwVWQqVSMePiCfTWUfYRDgOS1EJeRiMD WuVtY4IaUyVYOzCKZfnz2XGVXfKKGzLGF8LFMrCAKn YQToKFsmWMHlYXGuEer2EGVqZMUvDM0LUwZkNHNiMzL3DkIbHDUbVXXwon8BINMnITB8XgCsIAJkYETj NBRnEZzfMNVmONJuQfP4MBCeUOQdXJ3AErStRWLdWUF1XvawUENvNNInmb6RZHFaREB1NIT3ROSrXTRg GDDlGZzvVTTcCYX5CkR9QKUgQTJxPA3BCvZmSMDjRO VdFomdGHCiSLMnqf2WPRBhKTW4EUQ4FgBxPQJuVSSlQGqyHPYvTRM4UNR2FLLqLNWeHB5MYaPlLMJtZW L4WKhrCDIgZSPpbz4DQPZvBOP9RkS5MRZbDAAcQRTrIRyfFCVhAWI2ZTQmALXkYGQwNX5UZnAvIXTrYW bgJAPmKTMoDVVugy5MJFYeTCY3BFw7VNBrXAMyEBLj JRxjXWOiYTL5RWWlRCXhNMYwMC4OHmBiMLSgTUxiVHHdZSPjJFTeak3MsCMpyOpaex0GZHgZUk7KnIvf PZN3FKnqWq0awXX0HCAmTIJQAk6YliEqNLVgADIDHKsjMKCeJYK4IpedDgI2ONS7ZLP2C3Q8LISoDbro GjZyStv2CZx7McF8NoX8WCMfIYEeElQ2SOAmRCEpNI FjOWQyZmZmODQwNzk+GI8ePYu+Rv3Tf6MhebE7ozRwGAz2TNMlIU1AQBIHX4OWEe== ID Date Data Source [id number] 08/20/2020 11:18:28 AM EDT [facility] 1.6Serum levels of PSA should not be int erpreted as absolute evidence of the presence or absence of Cancer. Results obtained with different methods cannot be used interchangeably. This method is manufactured by [employer] and is an electrochemiluminesence immunoassay. Name Value Range Interpretation Code Description Data Belinda rce(s) Supporting Document(s) Leukocytes [#/volume] in Blood by Automated count 6.3 10*3/uL 4-10 [facility] Erythrocytes [#/volume] in Blood by Automated count 4.32 10*6/uL 4.6- 6.1 L [facility] Hemoglobin [Mass/volume] in Blood 13.6 g/dL 13.5-18 [facility] Hematocrit [Volume Fraction] of Blood by Automated count 41.6 % 4 1-53 [facility] Erythrocyte mean corpuscular volume [Entitic volume] by Auto mated count 96.3 fL 80-96 H [facility] Erythrocyte mean corpuscular hemoglobin [Entitic mass] by Automated count 31.4 pg 27-33 [facility] Erythrocyte mean corpuscular hemoglobin concentration [Mass/volume] by Automated count 32.6 g/dL 32.0-36.0 [facility] Erythrocyte distribution width [Ratio] by Automated count 13.9 % 11.5-14.5 [facility] Platelets [#/volume] in Blood by Automated count 290 10*3/uL 150-400 [facility] Differential cell count method - Blood [facility] Neutrophils/100 leukocytes in Blood by Automated count 58 % [facility] Lymphocytes/100 leukocytes in Blood by Automated count 33 % [facility] Monocytes/100 leukocytes in Blood by Automated count 6 % [facility] Eosinophils/100 leukocytes in Blood by Automated count 2 % [facility] Basophils/100 leukocytes in Blood by Automated count 1 % [facility] Neutrophils [#/volume] in Blood by Automated count 3.62 10*3/uL 1.8-7 .0 [facility] Lymphocytes [#/volume] in Blood by Automated count 2.12 10*3/uL 1.2-4 .0 [facility] Monocytes [#/volume] in Blood by Automated count 0.41 10*3/uL 0-0.8 [facility] Eosinophils [#/volume] in Blood by Automated count 0.15 10*3/uL 0-0.5 [facility] Basophils [#/volume] in Blood by Automated count 0.04 10*3/uL 0-0.2 [facility] Nucleated erythrocytes/100 leukocytes [Ratio] in Blood by Automated count 0 /100{WBCs} 0-0 [facility] ID Date Data Source [id number] 08/20/2020 12:02:10 PM EDT [facility] 1.6Serum levels of PSA should not be int erpreted as absolute evidence of the presence or absence of Cancer. Results obtained with different methods cannot be used interchangeably. This method is manufactured by [employer] and is an electrochemiluminesence immunoassay. Name Value Range Interpretation Code Description Data Belinda rce(s) Supporting Document(s) Albumin [Mass/volume] in Serum or Plasma by Bromocresol green (BCG) dye binding method 4.5 g/dL 3.5-5.2 [facility] Bilirubin.total [Mass/volume] in Serum or Plasma 0.2 mg/dL <1.2 [facility] Calcium [Mass/volume] in Serum or Plasma 9.4 mg/dL 8.6-10.0 [facility] Chloride [Moles/volume] in Serum or Plasma 103 mmol/L 98-107 [facility] Creatinine [Mass/volume] in Serum or Plasma 0.82 mg/dL 0.70-1.20 [facility] Glucose [Mass/volume] in Serum or Plasma 106 mg/dL 70-140 [facility] Alkaline phosphatase [Enzymatic activity/volume] in Serum or Plasma 97 U/L 40-129 [facility] Potassium [Moles/volume] in Serum or Plasma 4.0 mmol/L 3.4-5.1 [facility] Protein [Mass/volume] in Serum or Plasma 7.0 g/dL 6.4-8.3 [facility] Sodium [Moles/volume] in Serum or Plasma 137 mmol/L 136-145 [facility] Aspartate aminotransferase [Enzymatic activity/volume] in Serum or Plasma 22 U/L <40 [facility] Urea nitrogen [Mass/volume] in Serum or Plasma 16 mg/dL 8-23 [facility] Osmolality of Serum or Plasma by calculation 286 mosm/kg 275-300 [facility] Creatinine/Urea nitrogen [Mass Ratio] in Serum or Plasma 20 [facility] Bicarbonate [Moles/volume] in Serum 24 mmol/L 22-29 [facility] Alanine aminotransferase [Enzymatic activity/volume] in Seru m or Plasma 36 U/L <41 [facility] Anion gap 3 in Serum or Plasma 10 mmol/L 8-15 [facility] Glomerular filtration rate/1.73 sq M pre dicted among non-blacks [Volume Rate/Area] in Serum or Plasma by Creatinine-based formula (MDRD) >6 0 [facility] Glomerular filtration rate/1.73 sq M pre dicted among blacks [Volume Rate/Area] in Serum or Plasma by Creatinine-based formula (MDRD) >60 [facility] ID Date Data Source [id number] 08/20/2020 12:14:09 PM EDT [facility] 1.6Serum levels of PSA should [...] [Mass/volume] in Serum or Plasma 0.4 ng/mL [facility] Not Applicable ID Date Data Source [id number] 08/17/2020 10:03:13 AM EDT [facility] Name Value Range Interpretation Code Description Data Belinda rce(s) Supporting Document(s) Progress Note [facility] FKAOFe5xGrJFKgWk78/MDHwwOFRxm4ZyCMhhZRk6NJxyNJZyM7CgTON9bO4pRCO1BXeHChTkPfJfITVt lbm [file] bTvSFZEl9j5ixsJtu0rYjr0/zB8yj16xIJxYT5BcLCescGjGKuS75HbKHjltjoe0RaA+mejía/s19dc0h5I [file] qVJdtStoVOJRKeLlCHQxWRgzUPKHAc5D ID Date Data Source [id number] 06/07/2020 05:09:38 AM EST [facility] Name Value Range Interpretation Code Description Data Belinda rce(s) Supporting Document(s) Progress Note [facility] ARGIFg8pYgVQTlMf76/IKGymXIMzm9RlGDubLTu7STgaRPFdQ0EgYLJ9aU3nHSO5MUfFKlDwNmKgSmS9 lbm [file] FASjPht2BhAuERW3G2HhFoZ7TIZ7WMBpRee0OgJw GT2FGp0JYiC5OWF2jRPwCu9JMqM3IKFUUdGcRG7PEKu= ID Date Data Source [id number] 06/07/2020 05:09:33 AM EST [facility] Name Value Range Interpretation Code Description Data Belinda rce(s) Supporting Document(s) Progress Note [facility] NSGKZd0mGgDRHdSh74/XGPrbCXIik8BaQTahJLr1CQexXXPlQ7XxFLY6aV2dWKI1XYxWMuXaBsAxAgB1 lbm [file] R4LUT6cQQxFk7FIMVaDSUYVhAiWE6NOOb= ID Date Data Source [id number] 06/02/2020 09:23:36 AM [facility] Name Value Range Interpretation Code Description Data Belinda rce(s) Supporting Document(s) Progress Note [facility] JBAQIf0dZfQYKcRk91/QTCrvSKNcw0DqYYijGRf8IIyrRDJoU7XnFYM3wC9mLWA4TGxMCeKgRwGkYtYe lbm [file] A4EMFxXYU4L2JuAzI6OH1cZWWBNc9+JDqhoRKpnGrmOAFYClIpCZy9GAeyTPICQq3G ID Date Data Source [id number] 05/21/2020 10:24:20 AM [facility] 1.4Serum levels of PSA should not be int erpreted as absolute evidence of the presence or absence of Cancer. Results obtained with different methods cannot be used interchangeably. This method is manufactured by [employer] and is an electrochemiluminesence immunoassay. Name Value Range Interpretation Code Description Data Belinda rce(s) Supporting Document(s) Leukocytes [#/volume] in Blood by Automated count 5.5 10*3/uL 4-10 [facility] Erythrocytes [#/volume] in Blood by Automated count 4.34 10*6/uL 4.6- 6.1 L [facility] Hemoglobin [Mass/volume] in Blood 13.5 g/dL 13.5-18 [facility] Hematocrit [Volume Fraction] of Blood by Automated count 41.6 % 4 1-53 [facility] Erythrocyte mean corpuscular volume [Entitic volume] by Auto mated count 95.8 fL 80-96 [facility] Erythrocyte mean corpuscular hemoglobin [Entitic mass] by Automated count 31.2 pg 27-33 [facility] Erythrocyte mean corpuscular hemoglobin concentration [Mass/volume] by Automated count 32.5 g/dL 32.0-36.0 [facility] Erythrocyte distribution width [Ratio] by Automated count 15.7 % 11.5-14.5 H [facility] Platelets [#/volume] in Blood by Automated count 276 10*3/uL 150-400 [facility] Differential cell count method - Blood [facility] Neutrophils/100 leukocytes in Blood by Automated count 48 % [facility] Lymphocytes/100 leukocytes in Blood by Automated count 39 % [facility] Monocytes/100 leukocytes in Blood by Automated count 8 % [facility] Eosinophils/100 leukocytes in Blood by Automated count 4 % [facility] Basophils/100 leukocytes in Blood by Automated count 1 % [facility] Neutrophils [#/volume] in Blood by Automated count 2.67 10*3/uL 1.8-7 .0 [facility] Lymphocytes [#/volume] in Blood by Automated count 2.16 10*3/uL 1.2-4 .0 [facility] Monocytes [#/volume] in Blood by Automated count 0.43 10*3/uL 0-0.8 [facility] Eosinophils [#/volume] in Blood by Automated count 0.23 10*3/uL 0-0.5 [facility] Basophils [#/volume] in Blood by Automated count 0.05 10*3/uL 0-0.2 [facility] Nucleated erythrocytes/100 leukocytes [Ratio] in Blood by Automated count 0 /100{WBCs} 0-0 [facility] ID Date Data Source [id number] 05/21/2020 11:33:10 AM [facility] 1.4Serum levels of PSA should not be int erpreted as absolute evidence of the presence or absence of Cancer. Results obtained with different methods cannot be used interchangeably. This method is manufactured by [employer] and is an electrochemiluminesence immunoassay. Name Value Range Interpretation Code Description Data Belinda rce(s) Supporting Document(s) Prostate Specific Ag Free [Mass/volume] in Serum or Plasma 0.3 ng/mL [facility] Not Applicable ID Date Data Source [id number] 05/21/2020 11:35:30 AM [facility] 1.4Serum levels of PSA should not be int erpreted as absolute evidence of the presence or absence of Cancer. Results obtained with different methods cannot be used interchangeably. This method is manufactured by [employer] and is an electrochemiluminesence immunoassay. Name Value Range Interpretation Code Description Data Belinda rce(s) Supporting Document(s) Albumin [Mass/volume] in Serum or Plasma by Bromocresol green (BCG) dye binding method 4.3 g/dL 3.5-5.2 [facility] Bilirubin.total [Mass/volume] in Serum or Plasma 0.3 mg/dL <1.2 [facility] Calcium [Mass/volume] in Serum or Plasma 10.1 mg/dL 8.6-10.0 H [facility] Chloride [Moles/volume] in Serum or Plasma 104 mmol/L 98-107 [facility] Creatinine [Mass/volume] in Serum or Plasma 0.88 mg/dL 0.70-1.20 [facility] Glucose [Mass/volume] in Serum or Plasma 108 mg/dL 70-140 [facility] Alkaline phosphatase [Enzymatic activity/volume] in Serum or Plasma 95 U/L 40-129 [facility] Potassium [Moles/volume] in Serum or Plasma 4.1 mmol/L 3.4-5.1 [facility] Protein [Mass/volume] in Serum or Plasma 7.2 g/dL 6.4-8.3 [facility] Sodium [Moles/volume] in Serum or Plasma 139 mmol/L 136-145 [facility] Aspartate aminotransferase [Enzymatic activity/volume] in Serum or Plasma 20 U/L <40 [facility] Urea nitrogen [Mass/volume] in Serum or Plasma 23 mg/dL 6-20 H [facility] Osmolality of Serum or Plasma by calculation 292 mosm/kg 275-300 [facility] Creatinine/Urea nitrogen [Mass Ratio] in Serum or Plasma 26 [facility] Bicarbonate [Moles/volume] in Serum 22 mmol/L 22-29 [facility] Alanine aminotransferase [Enzymatic activity/volume] in Seru m or Plasma 29 U/L <41 [facility] Anion gap 3 in Serum or Plasma 13 mmol/L 8-15 [facility] Glomerular filtration rate/1.73 sq M pre dicted among non-blacks [Volume Rate/Area] in Serum or Plasma by Creatinine-based formula (MDRD) >6 0 [facility] Glomerular filtration rate/1.73 sq M pre dicted among blacks [Volume Rate/Area] in Serum or Plasma by Creatinine-based formula (MDRD) >60 [facility] ID Date Data Source [id number] 02/25/2020 04:11:17 PM EDT [facility] Name Value Range Interpretation Code Description Data Belinda rce(s) Supporting Document(s) Progress Note [facility] [id number] lbm [file] [id number] ID Date Data Source [id number] 02/20/2020 08:10:09 AM EDT [facility] Name Value Range Interpretation Code Description Data Belinda rce(s) Supporting Document(s) Progress Note [facility] [id number] lbm [file] Cg== ID Date Data Source [id number] 02/19/2020 03:05:47 PM EDT [facility] 1.2Serum levels of PSA should not be int erpreted as absolute evidence of the presence or absence of Cancer. Results obtained with different methods cannot be used interchangeably. This method is manufactured by [employer] and is an electrochemiluminesence immunoassay. Name Value Range Interpretation Code Description Data Belinda rce(s) Supporting Document(s) Leukocytes [#/volume] in Blood by Automated count 6.3 10*3/uL 4-10 [facility] Erythrocytes [#/volume] in Blood by Automated count 4.06 10*6/uL 4.6- 6.1 L [facility] Hemoglobin [Mass/volume] in Blood 12.7 g/dL 13.5-18 L [facility] Hematocrit [Volume Fraction] of Blood by Automated count 38.3 % 4 1-53 L [facility] Erythrocyte mean corpuscular volume [Entitic volume] by Auto mated count 94.2 fL 80-96 [facility] Erythrocyte mean corpuscular hemoglobin [Entitic mass] by Automated count 31.4 pg 27-33 [facility] Erythrocyte mean corpuscular hemoglobin concentration [Mass/volume] by Automated count 33.3 g/dL 32.0-36.0 [facility] Erythrocyte distribution width [Ratio] by Automated count 15.2 % 11.5-14.5 H [facility] Platelets [#/volume] in Blood by Automated count 313 10*3/uL 150-400 [facility] Differential cell count method - Blood [facility] Neutrophils/100 leukocytes in Blood by Automated count 58 % [facility] Lymphocytes/100 leukocytes in Blood by Automated count 33 % [facility] Monocytes/100 leukocytes in Blood by Automated count 6 % [facility] Eosinophils/100 leukocytes in Blood by Automated count 2 % [facility] Basophils/100 leukocytes in Blood by Automated count 1 % [facility] Neutrophils [#/volume] in Blood by Automated count 3.61 10*3/uL 1.8-7 .0 [facility] Lymphocytes [#/volume] in Blood by Automated count 2.10 10*3/uL 1.2-4 .0 [facility] Monocytes [#/volume] in Blood by Automated count 0.39 10*3/uL 0-0.8 [facility] Eosinophils [#/volume] in Blood by Automated count 0.14 10*3/uL 0-0.5 [facility] Basophils [#/volume] in Blood by Automated count 0.07 10*3/uL 0-0.2 [facility] Nucleated erythrocytes/100 leukocytes [Ratio] in Blood by Automated count 0 /100{WBCs} 0-0 [facility] ID Date Data Source [id number] 02/19/2020 04:03:40 PM [facility] 1.2Serum levels of PSA should not be int erpreted as absolute evidence of the presence or absence of Cancer. Results obtained with different methods cannot be used interchangeably. This method is manufactured by [employer] and is an electrochemiluminesence immunoassay. Name Value Range Interpretation Code Description Data Belinda rce(s) Supporting Document(s) Prostate Specific Ag Free [Mass/volume] in Serum or Plasma 0.3 ng/mL [facility] Not Applicable ID Date Data Source [id number] 02/19/2020 04:05:21 PM [facility] 1.2Serum levels of PSA should not be int erpreted as absolute evidence of the presence or absence of Cancer. Results obtained with different methods cannot be used interchangeably. This method is manufactured by [employer] and is an electrochemiluminesence immunoassay. Name Value Range Interpretation Code Description Data Belinda rce(s) Supporting Document(s) Albumin [Mass/volume] in Serum or Plasma by Bromocresol green (BCG) dye binding method 4.0 g/dL 3.5-5.2 [facility] Bilirubin.total [Mass/volume] in Serum or Plasma <1.2 [facility] Calcium [Mass/volume] in Serum or Plasma 9.3 mg/dL 8.6-10.0 [facility] Chloride [Moles/volume] in Serum or Plasma 105 mmol/L 98-107 [facility] Creatinine [Mass/volume] in Serum or Plasma 0.84 mg/dL 0.70-1.20 [facility] Glucose [Mass/volume] in Serum or Plasma 95 mg/dL 70-140 [facility] Alkaline phosphatase [Enzymatic activity/volume] in Serum or Plasma 77 U/L 40-129 [facility] Potassium [Moles/volume] in Serum or Plasma 4.1 mmol/L 3.4-5.1 [facility] Hemolyzed Protein [Mass/volume] in Serum or Plasma 6.5 g/dL 6.4-8.3 [facility] Sodium [Moles/volume] in Serum or Plasma 138 mmol/L 136-145 [facility] Aspartate aminotransferase [Enzymatic activity/volume] in Serum or Plasma 21 U/L <40 [facility] Urea nitrogen [Mass/volume] in Serum or Plasma 18 mg/dL 6-20 [facility] Osmolality of Serum or Plasma by calculation 288 mosm/kg 275-300 [facility] Creatinine/Urea nitrogen [Mass Ratio] in Serum or Plasma 21 [facility] Bicarbonate [Moles/volume] in Serum 20 mmol/L 22-29 L [facility] Alanine aminotransferase [Enzymatic activity/volume] in Seru m or Plasma 17 U/L <41 [facility] Anion gap 3 in Serum or Plasma 13 mmol/L 8-15 [facility] Glomerular filtration rate/1.73 sq M pre dicted among non-blacks [Volume Rate/Area] in Serum or Plasma by Creatinine-based formula (MDRD) >6 0 [facility] Glomerular filtration rate/1.73 sq M pre dicted among blacks [Volume Rate/Area] in Serum or Plasma by Creatinine-based formula (MDRD) >60 [facility] Procedure Social History Code Duration Value Status Description Data Source(s ) Alcohol intake 03/21/2021 12:00:00 AM EST Current non-d ibrahima of alcohol (finding) completed Current non-drinker of alcohol (finding) [facility] Smoking 02/22/2021 12:00:00 AM EDT Former Smoker completed Former Smoker eCW1 ([facility]) Smoking 02/22/2021 12:00:00 AM EDT Former Smoker completed Former Smoker eCW1 ([facility]) Smoking 02/22/2021 12:00:00 AM EDT Former Smoker completed Former Smoker eCW1 ([facility]) Smoking 02/22/2021 12:00:00 AM EDT Former Smoker completed Former Smoker eCW1 ([facility]) Smoking 02/22/2021 12:00:00 AM EDT Former Smoker completed Former Smoker eCW1 ([facility]) Smoking 02/22/2021 12:00:00 AM EDT Former Smoker completed Former Smoker eCW1 ([facility]) Alcohol intake 01/11/2021 12:00:00 AM EDT Current non-d ibrahima of alcohol (finding) completed Current non-drinker of alcohol (finding) [facility] Alcohol intake 12/28/2020 12:00:00 AM EDT Current non-d ibrahima of alcohol (finding) completed Current non-drinker of alcohol (finding) [facility] Alcohol intake 12/22/2020 12:00:00 AM EDT Current non-d ibrahima of alcohol (finding) completed Current non-drinker of alcohol (finding) [facility] Alcohol intake 12/14/2020 12:00:00 AM EDT Current non-d ibrahiam of alcohol (finding) completed Current non-drinker of alcohol (finding) [facility] Alcohol intake 11/24/2020 12:00:00 AM EDT Current non-d ibrahima of alcohol (finding) completed Current non-drinker of alcohol (finding) [facility] Alcohol intake 11/23/2020 12:00:00 AM EDT Current non-d ibrahima of alcohol (finding) completed Current non-drinker of alcohol (finding) [facility] Alcohol intake 11/16/2020 12:00:00 AM EDT Current non-d ibrahima of alcohol (finding) completed Current non-drinker of alcohol (finding) [facility] Smoking 10/20/2020 12:00:00 AM EDT Former Smoker completed Former Smoker eCW1 ([facility]) Smoking 10/20/2020 12:00:00 AM EDT Former Smoker completed Former Smoker eCW1 ([facility]) Smoking 10/20/2020 12:00:00 AM EDT Former Smoker completed Former Smoker eCW1 ([facility]) Smoking 10/20/2020 12:00:00 AM EDT Former Smoker completed Former Smoker eCW1 ([facility]) Smoking 10/20/2020 12:00:00 AM EDT Former Smoker completed Former Smoker eCW1 ([facility]) Smoking 10/20/2020 12:00:00 AM EDT Former Smoker completed Former Smoker eCW1 ([facility]) Smoking 10/20/2020 12:00:00 AM EDT Former Smoker completed Former Smoker eCW1 ([facility]) Smoking 10/20/2020 12:00:00 AM EDT Former Smoker completed Former Smoker eCW1 ([facility]) Smoking 10/20/2020 12:00:00 AM EDT Former Smoker completed Former Smoker eCW1 ([facility]) Smoking 10/20/2020 12:00:00 AM EDT Former Smoker completed Former Smoker eCW1 ([facility]) Smoking 10/20/2020 12:00:00 AM EDT Former Smoker completed Former Smoker eCW1 ([facility]) Smoking 10/20/2020 12:00:00 AM EDT Former Smoker completed Former Smoker eCW1 ([facility]) Smoking 10/20/2020 12:00:00 AM EDT Former Smoker completed Former Smoker eCW1 ([facility]) Smoking 10/20/2020 12:00:00 AM EDT Former Smoker completed Former Smoker eCW1 ([facility]) Smoking 10/20/2020 12:00:00 AM EDT Former Smoker completed Former Smoker eCW1 ([facility]) Alcohol intake 10/19/2020 12:00:00 AM EDT Current non-d ibrahima of alcohol (finding) completed Current non-drinker of alcohol (finding) [facility] Smoking 08/23/2020 12:00:00 AM EDT Former Smoker completed Former Smoker eCW1 ([facility]) Smoking 08/23/2020 12:00:00 AM EDT Former Smoker completed Former Smoker eCW1 ([facility]) Smoking 08/23/2020 12:00:00 AM EDT Former Smoker completed Former Smoker eCW1 ([facility]) Smoking 08/23/2020 12:00:00 AM EDT Former Smoker completed Former Smoker eCW1 ([facility]) Alcohol intake 08/20/2020 12:00:00 AM EDT Current non-d ibrahima of alcohol (finding) completed Current non-drinker of alcohol (finding) [facility] Alcohol intake 08/17/2020 12:00:00 AM EDT Current non-d ibrahima of alcohol (finding) completed Current non-drinker of alcohol (finding) [facility] Smoking 07/19/2020 12:00:00 AM EDT Former Smoker completed Former Smoker eCW1 ([facility]) Smoking 07/19/2020 12:00:00 AM EDT Former Smoker completed Former Smoker eCW1 ([facility]) Alcohol intake 05/21/2020 12:00:00 AM EST Current non-d ibrahima of alcohol (finding) completed Current non-drinker of alcohol (finding) [facility] Smoking 05/10/2020 12:00:00 AM EST Former Smoker completed Former Smoker eCW1 ([facility]) Smoking 05/10/2020 12:00:00 AM EST Former Smoker completed Former Smoker eCW1 ([facility]) Smoking 05/10/2020 12:00:00 AM EST Former Smoker completed Former Smoker eCW1 ([facility]) Smoking 04/26/2020 12:00:00 AM EST Former Smoker completed Former Smoker eCW1 ([facility]) Smoking 04/26/2020 12:00:00 AM EST Former Smoker completed Former Smoker eCW1 ([facility]) Smoking 03/08/2020 12:00:00 AM EST Former Smoker completed Former Smoker eCW1 ([facility]) Smoking 03/08/2020 12:00:00 AM EST Former Smoker completed Former Smoker eCW1 ([facility]) Smoking 03/08/2020 12:00:00 AM EST Former Smoker completed Former Smoker eCW1 ([facility]) Smoking 03/08/2020 12:00:00 AM EST Former Smoker completed Former Smoker eCW1 ([facility]) Smoking 03/08/2020 12:00:00 AM EST Former Smoker completed Former Smoker eCW1 ([facility]) Alcohol intake 02/19/2020 12:00:00 AM EDT Current non-d ibrahima of alcohol (finding) completed Current non-drinker of alcohol (finding) [facility] Vital Signs ID Date Data Source UNK Name Value Range Interpretation Code Description Data Source(s) Body weight 202.8 [lb_av] 202.8 [lb_av] eCW1 ([facility]) Body height [in_i] eCW1 ([facility]) Body mass index (BMI) [Ratio] 30.83 kg/m2 30.83 kg/m2 eCW1 ([facility]) Heart rate 90 /min 90 /min eCW1 ([facility]) Respiratory rate 18 /min 18 /min eCW1 ([facility]) Body temperature 97.7 [degF] 97.7 [degF] eCW1 ( [facility]) Systolic blood pressure 118 mm[Hg] 118 mm[Hg] e CW1 ([facility]) Diastolic blood pressure 78 mm[Hg] 78 mm[Hg] eCW1 ([facility]) Body weight 218 [lb_av] 218 [lb_av] eCW1 ([facility]) Body height [in_i] eCW1 ([facility]) Body mass index (BMI) [Ratio] 33.14 kg/m2 33.14 kg/m2 eCW1 ([facility]) Heart rate 102 /min 102 /min eCW1 ([facility]) Respiratory rate 18 /min 18 /min eCW1 ([facility]) Body temperature 96.7 [degF] 96.7 [degF] eCW1 ( [facility]) Systolic blood pressure 116 mm[Hg] 116 mm[Hg] e CW1 ([facility]) Diastolic blood pressure 80 mm[Hg] 80 mm[Hg] eCW1 ([facility]) Body height 68 [in_i] 68 [in_i] [facility] ([facility], ) 5'8" Body weight 200.00 [lb_av] 200.00 [lb_av] MEDEN T ([facility], ) Body mass index (BMI) [Ratio] 30.4 kg/m2 30.4 k g/m2 [facility] ([facility], ) [place] body weight 154 [lb_av] 154 [lb_av] MEDEN T ([facility], ) Body weight 90.720 kg 90.720 kg [facility] ([facility]) Body surface area Derived from formula 2.04 m2 2.04 m2 MEDYARELIS ([facility], ) Body weight 209 [lb_av] 209 [lb_av] eCW1 ([facility]) Respiratory rate 18 /min 18 /min eCW1 ([facility]) Body temperature 97.7 [degF] 97.7 [degF] eCW1 ( [facility]) Systolic blood pressure 138 mm[Hg] 138 mm[Hg] e CW1 ([facility]) Diastolic blood pressure 108 mm[Hg] 108 mm[Hg] eCW1 ([facility]) Body height [in_i] eCW1 ([facility]) Body mass index (BMI) [Ratio] 31.77 kg/m2 31.77 kg/m2 eCW1 ([facility]) Heart rate 106 /min 106 /min eCW1 ([facility]) ID Date Data Source [id number] 01/13/2021 12:47:21 PM EDT [facility] Name Value Range Interpretation Code Description Data Source(s) TRANSFER FROM Outpatient Clinic/Office [facility] ID Date Data Source [id number] 01/12/2021 08:12:49 AM EDT [facility] Name Value Range Interpretation Code Description Data Source(s) TRANSFER FROM Outpatient Clinic/Office [facility] ID Date Data Source [id number] 02/04/2021 12:32:39 PM EDT [facility] Name Value Range Interpretation Code Description Data Source(s) TRANSFER FROM Outpatient Clinic/Office [facility] ID Date Data Source [id number] 12/20/2020 03:22:50 PM EDT [facility] Name Value Range Interpretation Code Description Data Source(s) WEIGHT RECORDED 173 lb [address] [facility] ID Date Data Source [id number] 09/04/2020 06:39:32 AM EDT [facility] Name Value Range Interpretation Code Description Data Source(s) WEIGHT RECORDED 214 lb [address] [facility] ID Date Data Source [id number] 08/18/2020 02:04:26 PM EDT [facility] Name Value Range Interpretation Code Description Data Source(s) WEIGHT RECORDED [address] [facility] Body height Measured 67.99 in 67.99 in [facility] ID Date Data Source [id number] 07/12/2020 08:18:53 AM EDT [facility] Name Value Range Interpretation Code Description Data Source(s) WEIGHT RECORDED [address] [facility] ID Date Data Source [id number] 02/25/2020 04:11:17 PM EDT [facility] Name Value Range Interpretation Code Description Data Source(s) WEIGHT RECORDED 209.[address] [facility] Body height Measured 67.99 in 67.99 in [facility] ID Date Data Source [id number] 02/20/2020 08:10:09 AM EDT [facility] Name Value Range Interpretation Code Description Data Source(s) WEIGHT RECORDED 208.[address] [facility] Patient Treatment Plan of Care Planned Activity Planned Date Details Description Data Source (s) Prednisone 10 MG Oral Tablet 03/15/2021 12:00:00 AM [facility] Abiraterone Acetate 500 MG Oral Tablet ([id number]) 03/15/2021 12:00:00 AM [facility] Optifoam Gentle Foam Dressings 03/02/2021 12:00:00 AM EDT eCW1 ([facility]) Optifoam Gentle Foam Dressings 03/02/2021 12:00:00 AM EDT eCW1 ([facility]) Optifoam Gentle Foam Dressings 03/02/2021 12:00:00 AM EDT eCW1 ([facility]) Optifoam Gentle Foam Dressings 03/02/2021 12:00:00 AM EDT eCW1 ([facility]) Oxycodone Hydrochloride 15 MG Oral Tablet 02/23/2021 12:00:00 AM ED [facility] Ensure - 02/22/2021 12:00:00 AM EDT e CW1 ([facility]) Ensure - 02/22/2021 12:00:00 AM EDT e CW1 ([facility]) Ensure - 02/22/2021 12:00:00 AM EDT e CW1 ([facility]) Ensure - 02/22/2021 12:00:00 AM EDT e CW1 ([facility]) Ensure - 02/22/2021 12:00:00 AM EDT e CW1 ([facility]) Ensure - 02/22/2021 12:00:00 AM EDT e CW1 ([facility]) Folic Acid 1 MG Oral Tablet 01/18/2021 12:00:00 AM [facility] salmon calcitonin 200 UNT/ACTUAT Nasal [place] 01/17/2021 12:00:00 AM [facility] ferrous gluconate 324 MG Oral Tablet 01/17/2021 12:00:00 AM [facility] salmon calcitonin 200 UNT/ACTUAT Nasal [place] 01/17/2021 12:00:00 AM [facility] salmon calcitonin 200 UNT/ML Injectable Solution 01/17/2021 12:00:0 0 AM [facility] salmon calcitonin 200 UNT/ML Injectable Solution 01/17/2021 12:00:0 0 AM [facility] Acetaminophen 325 MG Oral Tablet 01/11/2021 05:17:54 PM [facility] Carisoprodol 350 MG Oral Tablet 01/11/2021 05:17:53 PM [facility] Ondansetron 8 MG Oral Tablet 01/11/2021 05:17:53 PM [facility] lidocaine (XYLOCAINE) 2 % urojet 20 mL 12/22/2020 12:00:00 PM [facility] sennosides, LONGTERM 8.6 MG Oral Tablet 12/14/2020 12:00:00 AM [facility] Docusate Sodium 50 MG / sennosides, LONGTERM 8.6 MG Oral Ta blet 12/14/2020 12:00:00 AM [facility]spital POLYETHYLENE GLYCOL 3350 142 MG/ML Oral Solution 12/14/2020 12:00:0 0 AM [facility] Lactulose 667 MG/ML Oral Solution 12/14/2020 12:00:00 AM [facility] Oxycodone Hydrochloride 15 MG Oral Tablet 12/10/2020 12:00:00 AM [facility] Self-Cath Coude Tip 11/29/2020 12:00:00 AM [facility] Ondansetron 8 MG Oral Tablet 11/23/2020 12:00:00 AM [facility] Prochlorperazine 10 MG Oral Tablet 11/23/2020 12:00:00 AM [facility] Prednisone 10 MG Oral Tablet 11/23/2020 12:00:00 AM [facility] Morphine Sulfate 15 MG Extended Release Oral Tablet 11/17/19 12:00:00 AM [facility] Oxycodone Hydrochloride 15 MG Oral Tablet 11/11/2020 12:00:00 AM [facility] Ciprofloxacin 500 MG Oral Tablet [Cipro] 10/20/2020 12:00:00 AM EDT [place] [facility] ([facility]) Ciprofloxacin 500 MG Oral Tablet [Cipro] 10/20/2020 12:00:00 AM EDT eC ([facility]) Ciprofloxacin 500 MG Oral Tablet [Cipro] 10/20/2020 12:00:00 AM EDT eC ([facility]) Ciprofloxacin 500 MG Oral Tablet [Cipro] 10/20/2020 12:00:00 AM EDT eC ([facility]) Oxycodone Hydrochloride 15 MG Oral Tablet 10/11/2020 12:00:00 AM [facility] Oxycodone Hydrochloride 15 MG Oral Tablet 09/10/2020 12:00:00 AM [facility] Oxycodone Hydrochloride 15 MG Oral Tablet 08/12/2020 12:00:00 AM [facility] enzalutamide 40 MG Oral Capsule [Xtandi] 06/14/2020 12:00:00 AM [facility] Oxycodone Hydrochloride 15 MG Oral Tablet 05/11/2020 12:00:00 AM [facility] gabapentin 300 MG Oral Capsule 03/08/2020 12:00:00 AM [place] [id number] ([facility]) gabapentin 300 MG Oral Capsule 03/08/2020 12:00:00 AM [place] [id number] ([facility]) gabapentin 300 MG Oral Capsule 03/08/2020 12:00:00 AM EST eCW1 ([facility]) gabapentin 300 MG Oral Capsule 03/08/2020 12:00:00 AM EST eCW1 ([facility]) gabapentin 300 MG Oral Capsule 03/08/2020 12:00:00 AM EST eCW1 ([facility]) Oxycodone Hydrochloride 15 MG Oral Tablet 02/12/2020 12:00:00 AM [facility] Pentoxifylline 400 MG Extended Release Oral Tablet 12/01/2018 12 :00:00 AM [facility] Catheters (BARD COUDE TIP CATHETER) MISC 10/30/2018 12:00:00 AM [facility] irbesartan 300 MG Oral Tablet 10/15/2018 12:00:00 AM [facility] Losartan Potassium 50 MG Oral Tablet 01/17/2018 12:00:00 AM [facility] atorvastatin 20 MG Oral Tablet 01/07/2018 12:00:00 AM [facility] Amlodipine 10 MG Oral Tablet 09/17/2017 12:00:00 AM [facility] 12 HR Orphenadrine Citrate 100 MG Extended Release Ora l Tablet 09/14/2017 12:00:00 AM [facility]sp[facility] Calcium Carbonate 1500 MG Oral Tablet [facility] Losartan Potassium 25 MG Oral Tablet [facility] Losartan Potassium 25 MG Oral Tablet [facility] Diclofenac Sodium 50 MG Delayed Release Oral Tablet [facility] Leuprolide Acetate (LUPRON DEPOT IM) [facility] Ascorbic Acid (VITAMIN C PO) [facility]
[2021-04-02 17:14] LABS: BASO % 0.3 % (0.0-1.0); EOS % 0.1 % (0.0-3.0); HEMATOCRIT 33.2 % (42.0-52.0); HEMOGLOBIN 10.3 g/dl (13.5-17.5); LYMPH # 1.1 10^3/uL (1.5-5.0); LYMPH % 13.8 % (24.0-44.0); MEAN CORPUSCULAR HEMOGLOBIN 27.3 pg (27.0-33.0); MEAN CORPUSCULAR VOLUME 88.1 fl (80.0-96.0); MONO # 0.4 10^3/uL (0.0-0.8); MONO % 5.3 % (2.0-8.0); NEUTROPHILS # 6.2 10^3/uL (1.5-8.5); NEUTROPHILS % 80.1 % (36.0-66.0); PLATELET COUNT, AUTOMATED 397 10^3/uL (150-450); RED BLOOD COUNT 3.77 10^6/uL (4.30-6.10); WHITE BLOOD COUNT 7.8 10^3/uL (4.0-10.0)
[2021-04-02 17:37] LABS: BLOOD UREA NITROGEN 8 MG/DL (7-18); CARBON DIOXIDE LEVEL 29 MEQ/L (21-32); CHLORIDE LEVEL 94 MEQ/L (98-107); CREATININE FOR GFR 0.47 MG/DL (0.70-1.30); GLOMERULAR FILTRATION RATE > 60.0 (>49); GLUCOSE, FASTING 110 MG/DL (70-100); POTASSIUM SERUM 3.7 MEQ/L (3.5-5.1); SODIUM LEVEL 132 MEQ/L (136-145)
[2021-04-02] MEDS ORDERED: ISOVUE-370 76% 100ML VIAL As Ordered ONE (17:51)
[2021-04-02] MEDS ORDERED: CEFD300C PO (18:24)
[2021-04-02] MEDS ORDERED: CEFDINIR 300 MG CAP (OMNICEF) PO ONE (19:00)
--- NOTE | 2021-04-02 19:44 | REPVR ---
PROCEDURE INFORMATION: Exam: CT Abdomen And Pelvis With Contrast Exam date and time: 04/02/2021 6:20 PM Age: 60 years old Clinical indication: Other: Abdominal pain/n/v TECHNIQUE: Imaging protocol: Computed tomography of the abdomen and pelvis with contrast. Radiation optimization: All CT scans at this facility use at least one of these dose optimization techniques: automated exposure control; mA and/or kV adjustment per patient size (includes targeted exams where dose is matched to clinical indication); or iterative reconstruction. Contrast material: ISOVUE 370; Contrast volume: 100 ml; Contrast route: INTRAVENOUS (IV); COMPARISON: CT ABD PELVIS W/O CONTRAST 11/08/2020 8:53 PM FINDINGS: Tubes, catheters and devices: Percutaneous nephrostomy tube demonstrated in the right kidney with decompression of the right collecting system. Gas in the right collecting system within the kidney likely iatrogenic. Lungs: Bibasilar atelectasis. Liver: There is a diffuse decrease in hepatic parenchymal density, consistent with steatosis. Multiple hypoattenuating bull's-eye metastatic foci in the liver measuring up to 4.4 cm in the dome of the liver and 4 cm and segment 2 of the left lobe. Gallbladder and bile ducts: Sludge layering dependently in the gallbladder. Gallbladder otherwise unremarkable. Pancreas: Normal. No ductal dilation. Spleen: Normal. No splenomegaly. Adrenal glands: 1.7 x 2.5 cm mass left adrenal gland not demonstrated previously consistent with metastatic focus. Kidneys and ureters: See "Tubes, catheters and devices" finding. Stomach and bowel: Unremarkable. No obstruction. No mucosal thickening. Appendix: No evidence of appendicitis. Intraperitoneal space: Unremarkable. No free air. No significant fluid collection. Vasculature: The aortoiliac vessels demonstrate moderate atherosclerotic calcification. Lymph nodes: Marked interval enlargement of a small lymph node in the right lower quadrant located in the iliac node chain measuring up to 2.5 x 1.9 cm. Urinary bladder: Marked thickening of the bladder wall with a Manzano catheter in place. Finding may be related to bladder decompression of the possibility of cystitis or infiltrating neoplasm to be considered. Reproductive: Marked enlargement of the prostate gland with a large prominent median lobe indenting and possibly invading the under surface of the urinary bladder. Findings consistent with prostatic carcinoma. Bones/joints: While fracture posterior aspect of the left 11th rib associated with a soft tissue mass consistent with a pathologic fracture. Expansile rib mass anterior left 4th rib. Multiple lytic and blastic foci demonstrated in the ribs, vertebrae, and pelvic bones bilaterally consistent with metastatic disease. There is an expansile mass demonstrated in the right transverse process of T11. Metastatic focus in the spinous process of L4 on. Multiple compression fractures vertebral bodies including L3 through L5 likely pathologic. Moderate to severe canal stenosis along the posterior margins of L3 and L4 secondary to retropulsion of fracture elements. Moderate central spinal stenosis L1-L2, severe spinal stenosis L2-L3, moderate to severe central spinal stenosis L3-L4 mild central spinal stenosis L4-L5. There is a grade 1-2 anterior spondylolisthesis of L5 on S1 secondary to bilateral L5 spondylolysis. Soft tissues: Unremarkable. IMPRESSION: 1. There is a grade 1-2 anterior spondylolisthesis of L5 on S1 secondary to bilateral L5 spondylolysis. There has been marked interval progression of mixed blastic and lytic bone metastases as described above. 2. There is a diffuse decrease in hepatic parenchymal density, consistent with steatosis. 3. Multiple hypoattenuating bull's-eye metastatic foci in the liver measuring up to 4.4 cm in the dome of the liver and 4 cm and segment 2 of the left lobe, not demonstrated previously. 4. 1.7 x 2.5 cm mass left adrenal gland not demonstrated previously consistent with metastatic focus. 5. Percutaneous nephrostomy tube demonstrated in the right kidney with decompression of the right collecting system. Gas in the right collecting system within the kidney likely iatrogenic. 6. Marked interval enlargement of a small lymph node in the right lower quadrant located in the iliac node chain measuring up to 2.5 x 1.9 cm. 7. Marked enlargement of the prostate gland with a large prominent median lobe indenting and possibly invading the under surface of the urinary bladder. Findings consistent with prostatic carcinoma. Bilateral small inguinal hernias without incarceration. Electronically signed by: Christopher Velázquez On 04/02/2021 19:44:11 PM
--- NOTE | 2021-04-03 08:10 | ED PDOC ---
Post-Departure Follow-Up radiology report faxed to [facility] Radiology Oncology Evelin Cruz MD Apr 03, 2021 08:09
== END 2021-04-02 20:20 | disposition home or self-care (01) ==
LOC: M ED 13:59
DX: N39.0 Urinary tract infection, site not specified (principal); I10 Essential (primary) hypertension; E78.5 Hyperlipidemia, unspecified; C34.80 Malignant neoplasm of overlapping sites of unspecified bronchus and lung; C61 Malignant neoplasm of prostate; C79.00 Secondary malignant neoplasm of unspecified kidney and renal pelvis; C79.51 Secondary malignant neoplasm of bone; Z92.3 Personal history of irradiation; Z79.899 Other long term (current) drug therapy; Z79.82 Long term (current) use of aspirin; Z87.891 Personal history of nicotine dependence
CPT/HCPCS: 36415; 74177; 80048; 81001; 83605; 85025; 87040; 87088; 87186; 99284; Q9967

== ENCOUNTER → 2021-04-05 | Outpatient (REF) | payer OTHER ==
[~2021-04-05] MED LIST changes: +ABIR500T PO; +CEFD300C PO; +ELIQ5TAB; -LEVO500T3 PO; +LEVO500T4 PO; +ONDA-83 PO; +POTA-136; +PRED10TA2 PO
== END ==
LOC: M SFHCPLAZ 15:26
PROVIDERS: ATTEND Student in an Organized Health Care Education/Training Program
DX: Z85.46 Personal history of malignant neoplasm of prostate (principal); Z53.9 Procedure and treatment not carried out, unspecified reason

== ENCOUNTER → 2021-04-05 | Outpatient (CLI) | payer OTHER ==
[~2021-04-05] MED LIST changes: -ELIQ5TAB; +LEVO500T3 PO; -LEVO500T4 PO; -POTA-136
--- NOTE | 2021-04-05 16:18 | REP ---
INDICATION: LEG SWELLING,PROSTATE CANCER WITH METS COMPARISON: None. TECHNIQUE: Ibarra scale and color Doppler evaluation using linear high frequency transducer. FINDINGS: Ultrasound examination of the left lower extremity deep venous structures from the common femoral vein through the popliteal vein demonstrates normal compressibility, flow and wave patterns in response to respiration and augmentation. Evaluation of the calf veins demonstrate no obvious occlusion. There is no evidence for deep venous thrombosis. Contralateral CFV is patent and normal. IMPRESSION: No evidence for deep venous thrombosis. <Electronically signed by Taj Funez > 04/05/21 [id number]
== END ==
LOC: M WHC 15:36
PROVIDERS: ATTEND Student in an Organized Health Care Education/Training Program
DX: Z85.46 Personal history of malignant neoplasm of prostate (principal)

== ENCOUNTER → 2021-04-06 | Outpatient (CLI) | payer OTHER | LOC: M PLAIMG 13:16 | PROVIDERS: ATTEND Student in an Organized Health Care Education/Training Program | DX: Z85.46 Personal history of malignant neoplasm of prostate (principal); Z53.9 Procedure and treatment not carried out, unspecified reason ==

== ENCOUNTER 2021-04-16 08:57 | Emergency (ER) | payer OTHER ==
[~2021-04-16] VITALS: Ht 172.7 cm; Wt 54.9 kg
[~2021-04-16 08:57] MED LIST changes: -LEVO500T3 PO; +LEVO500T4 PO
[2021-04-16] MEDS ORDERED: POTA-136 (09:18)
[2021-04-16] MEDS ORDERED: ELIQ5TAB (09:18)
[2021-04-16 11:18] VITALS: BP 121/81
[2021-04-16 11:19] LABS: RSV AMPLIFICATION NEGATIVE (NEGATIVE)
== END 2021-04-16 11:31 | disposition short-term general hospital (02) ==
LOC: M ED 08:57
DX: N99.528 Other complication of incontinent external stoma of urinary tract (principal); C61 Malignant neoplasm of prostate; Z79.899 Other long term (current) drug therapy; Z79.82 Long term (current) use of aspirin; Z79.01 Long term (current) use of anticoagulants